=== PATIENT | male | born 1960 | race Caucasian/White ===

== ENCOUNTER 2023-03-14 08:23 | Inpatient (IN) | payer MEDICAID, SELFPAY ==
[2023-03-14] VITALS (20 sets, daily range): BP systolic 136–186; BP diastolic 92–117; PULSE 93–116; RESP 16–33; TEMP 36.2–37; O2SAT 95–100; BMI 35.6
--- NOTE | ~2023-03-14 | US_ITS ---
EXAMINATION: US venous doppler [facility] DATE: 03/14/2023 10:01 INDICATION: Bilateral lower limb pain and swelling TECHNIQUE: Beth scale images without and with compression and Doppler images of the bilateral lower e xtremity veins were obtained. COMPARISON: 03/07/2013 FINDINGS: The right common femoral vein, profunda femoral vein, femoral vein, popliteal vein, peroneal trunk, p osterior tibial veins, and greater saphenous vein are patent. The left common femoral vein, profunda femoral vein, femoral vein, popliteal vein, peroneal trunk, po sterior tibial veins, and greater saphenous vein are patent. IMPRESSION: 1. Patent bilateral lower extremity veins. No evidence of deep venous thrombosis. Reviewed, dictated and finalized at location [] IMPRESSION: 1. Patent bilateral lower extremity veins. No evidence of deep venous thrombosi s.
--- NOTE | ~2023-03-14 | CT_ITS ---
Non-contrast CT scan of the Abdomen and Pelvis Clinical indication: Dyspnea, leg swelling, tachycardia Technique: 2.5 mm axial scans were obtained through the abdomen and pelvis without intravenous or or al contrast. Dose reduction technique was used on this scan by utilizing automated exposure control a nd iterative reconstruction technique. The dose-length product (DLP) was 1154.84 mGy-cm. Findings: Images through the lung bases reveal [id number] bilateral pleural effusions. There is moderate bilateral hydroureteronephrosis. No radiopaque stones identified. The liver, spleen, pancreas, gallbladder, and adrenals appear normal. There is no aortic aneurysm. There is no evidence of bowel obstruction. Normal appendix. Images through the pelvis were performed. There is no evidence of ascites or lymphadenopathy. Urinary bladder is markedly distended. Prostate gland is markedly enlarged. Impression: Moderate bilateral hydronephrosis with markedly urinary bladder and significantly enlarged prostate g land. Findings likely represent bladder outlet obstruction related to BPH. Prostate neoplasm cannot b e excluded based on this exam. [id number] bilateral pleural effusions, partially imaged. Reviewed, dictated and finalized at location . Impression: Moderate bilateral hydronephrosis with markedly urinary bladder and significant ly enlarged prostate gland. Findings likely represent bladder outlet obstructio n related to BPH. Prostate neoplasm cannot be excluded based on this exam. [id number] bilateral pleural effusions, partially imaged.
--- NOTE | ~2023-03-14 | XR_ITS ---
EXAMINATION: XR chest 1V DATE: 03/14/2023 10:56 INDICATION: Cough and dyspnea TECHNIQUE: AP view of the chest was obtained. COMPARISON: Chest radiograph dated 10/16/2015 FINDINGS: No focal airspace opacity in the left perihilar region. Mild bibasilar opacities with small bilateral pleural effusions. No pneumothorax. Heart size is normal. IMPRESSION: 1. New opacities in the bilateral lung bases and left perihilar region which could represent pneumoni a or mild pulmonary edema. 2. Small bilateral pleural effusions. Reviewed, dictated and finalized at location A. IMPRESSION: 1. New opacities in the bilateral lung bases and left perihilar region which co uld represent pneumonia or mild pulmonary edema. 2. Small bilateral pleural effusions.
--- NOTE | ~2023-03-14 | US_ITS ---
EXAMINATION: US renal BI DATE: 03/16/2023 10:22 INDICATION: Bilateral hydronephrosis TECHNIQUE: Multiple grayscale and Doppler ultrasound images of the kidneys were obtained. COMPARISON: 03/15/2023 FINDINGS: The right kidney measures 13.2 x 6.3 x 7.9 cm. The left kidney measures 13.8 x 6.5 x 6.3 cm . The kidneys demonstrate normal parenchymal echogenicity. There is persistent mild bilateral hydrone phrosis. The bladder is decompressed by Rubio catheter. IMPRESSION: 1. Persistent mild bilateral hydronephrosis. Reviewed, dictated and finalized at location []
--- NOTE | ~2023-03-14 | US_ITS ---
EXAMINATION: US renal BI DATE: 03/15/2023 10:53 INDICATION: Acute kidney injury, hydronephrosis TECHNIQUE: Multiple grayscale and Doppler ultrasound images of the kidneys were obtained. COMPARISON: CT, 03/14/2023 FINDINGS: The right kidney measures 12.8 x 5.3 x 5.3 cm. The left kidney measures 13.4 x 5.8 x 7.5 cm . The kidneys demonstrate normal parenchymal echogenicity. There is mild bilateral hydronephrosis. Th e bladder is decompressed by Rubio catheter. IMPRESSION: 1. Mild bilateral hydronephrosis. Otherwise, normal kidneys. Reviewed, dictated and finalized at location L.
--- NOTE | 2023-03-14 09:25 | ED.GENADULT ---
HPI - General Adult General Chief complaint: Extremity Injury, Lower <MART Little Last Filed: 03/14/23 14:31> Stated complaint: leg swelling <MART Little Last Filed: 03/14/23 14:31> Time Seen by Provider: 03/14/23 08:53 <Matteo Ponce PA-C - Last Filed: 03/14/23 14:31> Source: patient <MART Little Last Filed: 03/14/23 14:31> Mode of arrival: ambulatory <MART Little Last Filed: 03/14/23 14:31> Limitations: no limitations <MART Little Last Filed: 03/14/23 14:31> History of Present Illness HPI narrative: This is a 62-year-old male who comes to the ED with multiple medical complaints. Chief complaint stated to be bilateral lower extremity swelling x2 weeks. Reports some pain in the extremities. 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 States it is worse in certain positions. He is requesting a refill of his albuterol inhaler today. Reports chronic cough. Denies chest pain. Patient has other complaints of constipation, recent diarrhea, abdominal bloating and sinus problems. States his last bowel movement was 1 week ago but he is passing gas. Denies fevers, chills, nausea, vomiting, abdominal pain, urinary symptoms. Reports past medical history of COPD and emphysema. States he has a history of hepatitis C in the past. States that he has not had any follow-up with primary care doctor in many years. <Matteo Ponce PA-C - Last Filed: 03/14/23 14:31> Related Data Home medications: Home Medications Medication Instructions Recorded Confirmed No Home Medications 03/14/23 03/14/23 <MART Little Last Filed: 03/14/23 14:31> Allergies/adverse reactions: Allergies Allergy/AdvReac Type Severity Reaction Status Date / Time No Known Allergies Allergy Unverified 10/16/15 09:01 <MART Little Last Filed: 03/14/23 14:31> PMFSH Past Medical History Medical History: Medical History Benign prostate hyperplasia COPD with emphysema Skin cancer <Matteo Ponce PA-C - Last Filed: 03/14/23 14:31> Surgical History Surgical History: Surgical History History of tonsillectomy Status post surgical removal of malignant neoplasm of skin <Matteo Ponce PA-C - Last Filed: 03/14/23 14:31> Social History Social History: Social History Smoking packs per day: 1.5 Smoking cigarettes per day: 30.0 Years smoked: 49 Smoking pack-years: 73.50 Smoking status: Current every day smoker Tobacco type: cigarettes Second hand tobacco smoke exposure: Yes Alcohol intake: never Substance use: never Substance use type: does not use Lack of Transportation: No Lack of Food: Never True Current Housing: I Have Housing Concerned About Future Housing: YES Difficulty Paying Gas/Electric Bills: YES Difficulty Paying for Meds: YES Currently Unemployed: No Education: High School Diploma/GED Difficulty w/ Childcare or Family Care: No Spiritual care concerns: No <Matteo Ponce PA-C - Last Filed: 03/14/23 14:31> Exam Narrative: GENERAL: Appears slightly disheveled. No acute distress. HEAD: Normocephalic, atraumatic. EYES: PERRLA and EOMI. ENT: Nares clear, no rhinorrhea or epistaxis. Mucous membranes moist. Oropharynx without tonsillar hypertrophy exudate or other lesions. NECK: Supple. No adenopathy or masses. CHEST: No respiratory distress. Clear to auscultation. No wheezes rales or rhonchi HEART: Regular rate and rhythm. No murmur heard. Normal peripheral pulses. ABDOMEN: Mild abdominal distention. Soft, nontender, normal active bowel sounds. MSK: Normal range of motion. Mild bilateral lower extremity swelling. Nonpitting. Mildly tender to the anterior and
--- NOTE | 2023-03-14 09:43 | ECG_ITS ---
Measurements Intervals [place] Rate: 97 P: 31 WV: 130 QRS: 5 QRSD: 69 T: 125 QT: 336 QTc: 428 Interpretive Statements SINUS RHYTHM MODERATE T-WAVE ABNORMALITY, CONSIDER LATERAL ISCHEMIA [-0.1+ mV T-WAVE IN I/aVL/V5/V6] ABNORMAL ECG NO PREVIOUS ECG AVAILABLE FOR COMPARISON Electronically Signed On 03-14-2023 10:42:54 CDT by Ward Saucedo M.D.
[2023-03-14 10:35] LABS: Basophils Percent Auto 0.4 % (0.2-1.2); Eosinophils Absolute Auto 0.5 K/mm3 (0-0.3); Eosinophils Percent Auto 4.8 % (0-4.4); Hematocrit 39.2 % (42.0-52.0); Immature Granulocyte Absolute 0.03 K/mm3 (0.00-0.031); Immature Granulocyte Percent A 0.3 % (0-0.5); Lymphocytes Absolute Auto 1.25 K/mm3 (0.9-3.2); Lymphocytes Percent Auto 11.6 % (18.3-44.2); Mean Corpuscular HGB Conc 33.2 g/dl (32-36); Mean Corpuscular Hemoglobin 30.2 pg (26-34); Mean Corpuscular Volume 91.2 fl (80-100); Mean Platelet Volume 9.8 fl (7.4-10.4); Monocytes Absolute Auto 0.9 K/mm3 (0.1-0.6); Monocytes Percent Auto 8.2 % (2.6-8.5); Neutrophils Absolute Auto 8.1 K/mm3 (1.3-6.7); Neutrophils Percent Auto 74.7 % (45.5-73.1); Platelet Count Result 227 k/mm3 (150-375); Red Cell Distribution Width 13.7 % (11.5-14.5); White Blood Count 10.8 K/mm3 (4.5-10.0)
[2023-03-14 10:38] LABS: Alanine Aminotransferase 20 U/L (6-50); Albumin Level 4.2 g/dL (3.5-5.1); Alkaline Phosphatase 78 U/L (38-126); Anion Gap 14 mmol/L (8-16); Aspartate Amino Transferase 17 U/L (17-59); Bilirubin,Total 0.8 mg/dL (0.2-1.3); Blood Urea Nitrogen 88 mg/dL (9-20); Calcium 9.3 mg/dL (8.4-10.2); Carbon Dioxide 18 mmol/L (22-30); Chloride 107 mmol/L (98-107); Estimated CRCL calculation 6 ml/min; Estimated Glomerular Filt Rate 4; Glucose 89 mg/dL (65-110); Potassium 4.8 mmol/L (3.4-5.0); Sodium 139 mmol/L (137-145)
[2023-03-14 10:49] LABS: NT Pro B Type Natriuretic Pept 15900 pg/mL (19.9-100); Troponin I 0.031 ng/mL (0.000-0.034)
[2023-03-14 10:57] LABS: Appearance Urine Clear (Clear); Bilirubin Urine Negative (Negative); Blood Urine Negative (Negative); Color Urine Yellow (Yellow); Glucose Urine UA Negative (Negative); Ketones Urine Negative (Negative); Leukocyte Esterase Ur Negative LEU/UL (Negative); Nitrate Urine Negative (Negative); Protein Urine Negative (Negative); Specific Grav Ur 1.009 (1.001-1.035); Urobilinogen Urine 0.2 mg/dL (<2.0); pH Urine 5.5 (5.0-9.0)
[2023-03-14 11:01] LABS: Add Urine Microscopic? NO
[2023-03-14] MEDS: SODIUM CHLORIDE 0.9% IV 1,000 ML 999 ML IV CONT (11:43)
[2023-03-14] MEDS: LABETALOL HCL INJ 100 MG/20 ML VIAL 20 MG IV PUSH (11:46)
--- NOTE | 2023-03-14 13:25 | PC.NURSE ---
Pt attempting to have BM w/ bedside commode, when finished will go to admit room. Call light in reach.
--- NOTE | 2023-03-14 14:36 | PM.IMHP ---
H&P: HPI History of Present Illness Date/Time: 03/14/23 15:00 Chief Complaint: Leg swelling and shortness of breath. Narrative: This is a 62-year-old male smoker with COPD with emphysema who presented to the emergency department for evaluation of leg swelling and shortness of breath. The patient provides the following history. He has developed increasing lower extremity edema over the last couple of weeks and he now feels as though his abdomen is bloated. He also endorses increasing dyspnea on lesser and lesser exertion. He had loose stools for couple of days, took 1 anti diarrheal pill, and he has felt constipated since that time. Pertinent labs done on arrival include a WBC count of 10.8, hemoglobin 13.0, BUN 88, creatinine 13.00, proBNP 41371. CT of the abdomen and pelvis showed moderate bilateral hydronephrosis with markedly distended urinary bladder and significantly enlarged prostate gland. A Rubio was inserted and 1600 mL of urine was drained upon initial insertion. The catheter was clamped for a period of time and when it was unclamped his urine was grossly bloody. A 3 way catheter has since been inserted he is currently on CBI. With further questioning, he has noticed that he has been urinating a bit more than usual though he feels as though he is not able to completely empty his bladder. He is feeling a bit better now that the urine is draining and his blood pressure has in turn improved. He denies fever, chills, sweats, cold and flu symptoms, chest pain, pleuritic pain, cough, nausea, and vomiting. Review of Systems Review of Systems: Twelve systems were reviewed and are negative except for as per HPI. [facility] Past Medical History Medical History (Updated 03/14/23 @ 22:29 by Yadira Caicedo PA-C) Benign prostate hyperplasia COPD with emphysema Skin cancer Tobacco dependence Surgical History Surgical History History of tonsillectomy Status post surgical removal of malignant neoplasm of skin Family History Family History (Updated 03/15/23 @ 13:44 by Yadira Caicedo PA-C) Other Family history non-contributory Social History Social History (Updated 03/15/23 @ 13:45 by Yadira Caicedo PA-C) Social History: Surrogate medical decision maker: Ari Giron, daughter. Code status: Full code. Smoking packs per day: 1.5 Smoking cigarettes per day: 30.0 Years smoked: 49 Smoking pack-years: 73.50 Smoking status: Current every day smoker Tobacco type: cigarettes Second hand tobacco smoke exposure: Yes Alcohol intake: never Substance use: never Substance use type: does not use Lack of Transportation: No Lack of Food: Never True Current Housing: I Have Housing Concerned About Future Housing: YES Difficulty Paying Gas/Electric Bills: YES Difficulty Paying for Meds: YES Currently Unemployed: No Education: High School Diploma/GED Difficulty w/ Childcare or Family Care: No Additional living arrangements comments: Lives in [place]. Additional occupation/education comments: Works at a [employer]. Spiritual care concerns: No Meds Home Medications and Allergies Home Medications Medication Instructions Recorded Confirmed Type No Home Medications 03/14/23 03/14/23 History Allergies Allergy/AdvReac Type Severity Reaction Status Date / Time No Known Allergies Allergy Unverified 10/16/15 09:01 Vital Signs Vital Signs - 24 hr 03/14/23 08:28 03/14/23 08:51 03/14/23 09:09 Temperature 97.1 F L 98.6 F Pulse Rate 116 H 102 H Respiratory Rate 16 18 20 Blood Pressure 185/114 H 186/110 H Pulse Oximetry 96 96 Oxygen Delivery Room Air Room Air 03/14/23 09:08 03/14/23 09:09 03/14/23 09:15 Temperature Pulse Rate 101 H 104 H 99 Respiratory Rate 22 H 18 19 Blood Pressure 186/110 H Pulse Oximetry 95 97 98 Oxygen Delivery 03/14/23 09:17 03/14/23 09:33 03/14/23 09:45 Tem
--- NOTE | 2023-03-14 14:38 | PC.NURSE ---
This patient, Andrey Giron, was admitted to Medical Room 346-01. Patient/family oriented to hospital policies and general routines including ID bracelet, bed and alarms, visiting hours, pain management, procedures, bathroom and other care routines, personal items, smoking policy, room service/diet, and visiting hours. Information on how to activate the Rapid Response Team has been discussed. Patient/Family are encouraged to report perceived risks to care and to ask questions if they do not understand what they are told or what they should do.
--- NOTE | 2023-03-14 15:40 | PC.NURSE ---
Patient needed to use the bathroom as he was complaining of abdominal pain. JESSICA Francisco walked patient to the bathroom and noticed his gutiérrez cather was clamped. Patient came to medical floor from ER with gutiérrez catheter. RN unclamped catheter and 1100 of yellow urine drained. After draining, bloody red urine followed and 600mL of that was drained. Gutiérrez catheter continues to fill with bloody red urine. RN called Dr. Pinto's office with urology as he is the urologist ER consulted. Spoke with cashier receptionist and Tereza Boyle SELF SEALING FUEL TANK REPAIRER with urology is to come see patient within the next 30 minutes.
--- NOTE | 2023-03-14 16:39 | WPDURCON ---
Assessment and Plan Assessment and plan (1) Hematuria: Code(s): R31.9 - Hematuria, unspecified Status: Acute Assessment and Plan: Secondary to recent catheterization and rapid bladder collapse s/p severe retention. NO hematuria was noted prior to cath insertion. Patient denies a history of hematuria. I irrigated with 500cc of sterile water, I was able to clear his urine to a light red, no clots noted in the bladder. The patient tolerated the bladder irrigation well. The catheter bag has clotted off and is unable to be emptied. We will replace his current gutiérrez with a 3 way gutiérrez and start CBI to prevent clot formation. I will re-assess in the morning. (2) Benign prostate hyperplasia: Code(s): N40.0 - Benign prostatic hyperplasia without lower urinary tract symptoms Status: Acute Assessment and Plan: Start Flomax and Finasteride, likely the cause of his retention. Will keep gutiérrez for 7-10 days then do a voiding trial in the office. (3) Bladder outlet obstruction: Code(s): N32.0 - Bladder-neck obstruction Status: Acute (4) Acute kidney injury: Code(s): N17.9 - Acute kidney failure, unspecified Status: Acute Assessment and Plan: Monitor creatinine, will likely improve now that catheter has been placed. (5) Retention of urine: Code(s): R33.9 - Retention of urine, unspecified Status: Acute (6) Hydronephrosis: Code(s): N13.30 - Unspecified hydronephrosis Status: Acute Plan Will plan to get a KEIKO in a few days to ensure this has resolved s/p catheter placement. Urology Consult Note HPI Date Seen: 03/14/23 Time Seen: 16:39 Requesting Physician: Teddy Bro MD Primary Care Provider: DOCUMENT IMAGING SPECIALIST PHYSICIAN Consult Narrative Reason for consult: Retention/BRYAN Narrative: Andrey Giron is a 62 year old male who presented to the ER today for c/o SOB, bilateral lower extremity edema, and frequency, urgency to urinate. This patient has had little healthcare for quite some time and appears to have many unaddressed health problems d/t not having had any preventative healthcare in many years. He states at home he urinates frequently and at night, he denies incontinence, dysuria, hematuria at home or today prior to catheter insertion or UTI's. He also denies difficultly urinating. He had a CT scan today of the abdomen showing Moderate bilateral hydronephrosis with markedly urinary bladder and significantly enlarged prostate gland. Findings likely represent bladder outlet obstruction related to BPH. Prostate neoplasm cannot be excluded based on this exam. A creatinine of 13, WBC of 10.8, he is tachycardic and hypertensive, but afebrile. UA is normal. A gutiérrez was placed in the ER and he now has gross hematuria, although is gutiérrez is draining. Review of Systems Cardiovascular: Cardiovascular: Denies chest pain Respiratory: Respiratory: Reports no additional respiratory complaints Gastrointestinal: Gastrointestinal: Denies abdominal pain, Denies nausea and Denies vomiting Genitourinary: Genitourinary: Reports hematuria, Denies dysuria, Denies flank pain, Reports nocturia, Reports urinary frequency, Denies urinary hesitancy, Denies urinary incontinence and Reports urinary urgency PMFSH Past Medical History Medical History Benign prostate hyperplasia COPD with emphysema Skin cancer Surgical History Surgical History History of tonsillectomy Status post surgical removal of malignant neoplasm of skin Social History Social History Smoking packs per day: 1.5 Smoking cigarettes per day: 30.0 Years smoked: 49 Smoking pack-years: 73.50 Smoking status: Current every day smoker Tobacco type: cigarettes Second hand tobacco smoke exposure: Yes Alcohol intake: never
[2023-03-14 23:06] LABS: Hematocrit 42.8 % (42.0-52.0); Hemoglobin 14.1 g/dL (14.0-18.0); Mean Corpuscular HGB Conc 32.9 g/dl (32-36); Mean Corpuscular Hemoglobin 30.6 pg (26-34); Mean Corpuscular Volume 92.8 fl (80-100); Mean Platelet Volume 9.8 fl (7.4-10.4); Platelet Count Result 242 k/mm3 (150-375); Red Blood Count 4.61 M/mm3 (4.6-6.20); Red Cell Distribution Width 13.8 % (11.5-14.5); White Blood Count 13.4 K/mm3 (4.5-10.0)
[2023-03-14] MEDS: ACETAMINOPHEN 325 MG TABLET 650 MG PO (23:10)
[2023-03-14 23:22] LABS: Anion Gap 15 mmol/L (8-16); Blood Urea Nitrogen 64 mg/dL (9-20); Calcium 9.7 mg/dL (8.4-10.2); Carbon Dioxide 18 mmol/L (22-30); Chloride 110 mmol/L (98-107); Estimated CRCL calculation 13 ml/min; Estimated Glomerular Filt Rate 9; Glucose 157 mg/dL (65-110); Magnesium 2.6 mg/dL (1.6-2.3); Potassium 4.6 mmol/L (3.4-5.0); Sodium 143 mmol/L (137-145)
[2023-03-15] VITALS (8 sets, daily range): BP systolic 133–156; BP diastolic 67–99; PULSE 104–111; RESP 18–20; TEMP 36.4–36.9; O2SAT 97–100
[2023-03-15] MEDS: ACETAMINOPHEN 325 MG TABLET 650 MG PO ×3 (05:16→18:26)
[2023-03-15 05:38] LABS: Hematocrit 41.4 % (42.0-52.0); Hemoglobin 13.8 g/dL (14.0-18.0); Mean Corpuscular HGB Conc 33.3 g/dl (32-36); Mean Corpuscular Hemoglobin 30.5 pg (26-34); Mean Corpuscular Volume 91.4 fl (80-100); Mean Platelet Volume 9.6 fl (7.4-10.4); Platelet Count Result 270 k/mm3 (150-375); Red Blood Count 4.53 M/mm3 (4.6-6.20); Red Cell Distribution Width 13.7 % (11.5-14.5); White Blood Count 13.6 K/mm3 (4.5-10.0)
--- NOTE | 2023-03-15 05:51 | PC.NURSE ---
label remover c/o smelling cigarette smoke in patient's room. and malachi branham and this bond underwriter agree that bathroom smells of possible cigarette smoke. asked patient if he was smoking in the bathroom and patient denied this. explained danger to self, other patients and staff of smoking in hospital rooms where oxygen outlets are present. offered patient a nicotene patch and he refused this.
[2023-03-15 05:55] LABS: Alanine Aminotransferase 24 U/L (6-50); Albumin Level 4.2 g/dL (3.5-5.1); Alkaline Phosphatase 86 U/L (38-126); Anion Gap 9 mmol/L (8-16); Aspartate Amino Transferase 20 U/L (17-59); Bilirubin,Total 0.6 mg/dL (0.2-1.3); Blood Urea Nitrogen 49 mg/dL (9-20); Calcium 9.6 mg/dL (8.4-10.2); Carbon Dioxide 28 mmol/L (22-30); Chloride 107 mmol/L (98-107); Estimated CRCL calculation 18 ml/min; Estimated Glomerular Filt Rate 13; Glucose 131 mg/dL (65-110); Potassium 4.4 mmol/L (3.4-5.0); Sodium 144 mmol/L (137-145)
[2023-03-15] MEDS: oxyBUTYnin CHLORIDE 5 MG TABLET PO ×3 (08:17→16:51)
[2023-03-15] MEDS: TAMSULOSIN HCL 0.4 MG CAPSULE PO (08:17)
[2023-03-15] MEDS: FINASTERIDE 5 MG TABLET PO (08:17)
[2023-03-15] MEDS: guaiFENesin 12 HR 600 MG TABCR PO ×2 (08:37→19:44)
--- NOTE | 2023-03-15 11:09 | PM.CNNEP ---
Assessment and Plan Assessment and plan (1) Acute kidney injury: Code(s): N17.9 - Acute kidney failure, unspecified Status: Acute Assessment and Plan: suspect due to obstructive uropathy/urinary retention evidence of bilateral hydroureteronephrosis by CT imaging in ER 1600cc urine output following placement of gutiérrez catheter improvement in renal function noted repeat renal ultrasound follow trend of renal function and UOP (2) Bladder outlet obstruction: Code(s): N32.0 - Bladder-neck obstruction Status: Acute Assessment and Plan: as noted by admission imaging gutiérrez catheter in place good urine output noted with downward trend of creatinine Urology following started on flomax and finasteride (3) Hematuria: Code(s): R31.9 - Hematuria, unspecified Status: Acute Assessment and Plan: noted following placement of gutiérrez catheter due to BPH and likely gutiérrez trauma CBI in place Urology following (4) Elevated blood pressure reading: Code(s): R03.0 - Elevated blood-pressure reading, without diagnosis of hypertension Status: Acute Assessment and Plan: due to undiagnosed HTN versus pain-related issues follow trend of hemodynamics I will continue to follow the patient with you while remains hospitalized and make further recommendations during his hospital course. Thank you for allowing me to participate in care this patient. History of Present Illness Reason for Consult Consult date: 03/15/23 Reason for consult: acute renal failure (on chronic kidney disease??) Chief Complaint Chief complaint: Bladder Outlet Obstuction/Kidney Injury/Elevated B History of Present Illness Narrative: the patient is a 62-year-old male with a past medical history as outlined below who presented to [facility] Emergency room for further evaluation of lower extremity swelling/edema and shortness of breath. The patient reports that he has noticed increasing lower extremity swelling in association with his shortness of breath over the last couple weeks which seems to be progressively getting worse and associated with abdominal distention. His shortness of breath initially was with exertional activities but it seems to for progressed to being present even at rest. Given these constellation of symptoms and the lack of improvement in the last few days if not worsening, he presented to the emergency room for further assessment. Workup and evaluation emergency room demonstrated the patient be somewhat hypertensive and clearly in some distress secondary to his shortness of breath and abdominal distension. Routine blood test demonstrated normal hemoglobin and hematocrit with a mildly elevated white blood cell count but his kidney function was markedly abnormal with a BUN of 88, creatinine of 13 in association with a proBNP of around 16,000. Subsequent CT scan of the abdomen pelvis showed moderate bilateral hydronephrosis with markedly distended urinary bladder and significantly enlarged prostate. A Gutiérrez catheter was placed with immediate return of 1600 cc of urine. Following Gutiérrez catheter placement, he was noted to have hematuria. A 3 way catheter was subsequently placed and he was started on continuous bladder irrigation. Following the Gutiérrez catheter placement in general, he felt significantly bladder his blood pressure she has been seems to have improved as well. He gave no other systemic symptoms to report. He was subsequently admitted to the hospital for further evaluation and therapy. Since his admission, he has been since seen by Urology for echo and a shins with regard to his hematuria and will call clear evidence of urinary retention/BPH/obstructive uropathy. Renal consultation was requested due to his presumed acute kidney injury/acute renal failure. Unfortunately, have no previous labs to compare to in terms of what his kidney function was recen
--- NOTE | 2023-03-15 11:42 | WPDPN ---
Progress Note: A&P Assessment and Plan (1) Acute kidney injury: Code(s): N17.9 - Acute kidney failure, unspecified Status: Acute (2) Bladder outlet obstruction: Code(s): N32.0 - Bladder-neck obstruction Status: Acute (3) Elevated blood pressure reading: Code(s): R03.0 - Elevated blood-pressure reading, without diagnosis of hypertension Status: Acute (4) Urinary retention: Code(s): R33.9 - Retention of urine, unspecified Status: Acute (5) Bilateral hydronephrosis: Code(s): N13.30 - Unspecified hydronephrosis Status: Acute (6) Benign prostate hyperplasia: Code(s): N40.0 - Benign prostatic hyperplasia without lower urinary tract symptoms Status: Acute (7) Hematuria: Code(s): R31.9 - Hematuria, unspecified Status: Acute (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 Labs, imaging, EKG, and all reports were personally reviewed. He was found to have a markedly distended urinary bladder and over 1600 mL of urine was drained upon initial insertion of catheter prior to clamping. He has since developed gross hematuria and is on CBI. His kidney injury is most likely related to presumes longstanding bladder outlet obstruction and I suspect his renal function will improve significantly now that the catheter has been inserted. Avoid nephrotoxic agents. He received a L of normal saline in the ED; hold on further IV fluids as chest x-ray shows small effusions and mild pulmonary edema, likely due to the renal failure. Renal ultrasound is for a.m. to insure that the hydronephrosis is improving/resolving. He has been started on finasteride. Oxybutynin ordered as he is having significant discomfort from the Rubio catheter. Blood pressures were quite elevated on arrival but they have improved significantly with pain control. Continue to monitor closely and initiate antihypertensives if indicated, depending on how he trends. Smoking cessation is encouraged and was discussed. He declines the need for nicotine patch ?as they do not help anyway.? 03/15/2023 interval history: patient with hematuria was seen by his urologist and bladder was irrigated and placed on CBI and his urine is still pink and will be seen by his urologist and further recommendation to follow. patient with his of smoking and c/o cough and congestion, he does not have wheezing, will give patient guaifenesin and Duo neb and will monitory. Subjective Date/time seen: 03/15/23 11:42 Interval history: Leg swelling and shortness of breath. HPI-Narrative: This is a 62-year-old male smoker with COPD with emphysema who presented to the emergency department for evaluation of leg swelling and shortness of breath.? The patient provides the following history. He has developed increasing lower extremity edema over the last couple of weeks and he now feels as though his abdomen is bloated. He also endorses increasing dyspnea on lesser and lesser exertion. He had loose stools for couple of days, took 1 anti diarrheal pill, and he has felt constipated since that time. Pertinent labs done on arrival include a WBC count of 10.8, hemoglobin 13.0, BUN 88, creatinine 13.00, proBNP 68133. CT of the abdomen and pelvis showed moderate bilateral hydronephrosis with markedly distended urinary bladder and significantly enlarged prostate gland. A Rubio was inserted and 1600 mL of urine was drained upon initial insertion. The catheter was clamped for a period of time and when it was unclamped his urine was grossly bloody. A 3 way catheter has since been inserted he is currently on CBI. With further questioning, he has noticed that he has been urinating a bit more t
[2023-03-15] MEDS: IPRATROPIUM BR 0.02% INH SOLN 0.5 MG/2.5 ML VIAL INHALATION ×2 (14:27→19:57)
[2023-03-15] MEDS: LEVALBUTEROL NEB 1.25 MG/3 ML INHALATION ×2 (14:27→19:57)
--- NOTE | 2023-03-15 15:22 | WPDUROPN2 ---
Progress Note: A&P Assessment and Plan (1) Urinary retention: Code(s): R33.9 - Retention of urine, unspecified Status: Acute Assessment and Plan: Keep gutiérrez in for 7-10 days and f/u for voiding trial. (2) Bilateral hydronephrosis: Code(s): N13.30 - Unspecified hydronephrosis Status: Acute Assessment and Plan: Get KEIKO tomorrow to ensure hydronephrosis has improved. (3) Hematuria: Code(s): R31.9 - Hematuria, unspecified Status: Acute (4) Acute kidney injury: Code(s): N17.9 - Acute kidney failure, unspecified Status: Acute Assessment and Plan: Improved on CBI,keep CBI running, wean to off when hematuria resolves. Watch for electrolyte embalance d/t rapid deflation of bladder. Subjective Subjective Date/Time Seen: 03/15/23 15:22 Interval history: CBI is running on low flow, urine is light red/pink, much improved from yesterday. Creatinine has also improved greatly to 4.50 from 13.6. He is tachycardic, but doing well otherwise. He started Tamsulosin and Finasteride today. Review of Systems Cardiovascular: Cardiovascular: Denies chest pain Respiratory: Respiratory: Reports no additional respiratory complaints Gastrointestinal: Gastrointestinal: Denies abdominal pain, Denies nausea and Denies vomiting Genitourinary: Genitourinary: Reports hematuria, Denies genital pain, Denies dysuria, Denies flank pain, Denies urinary frequency, Denies urinary hesitancy and Denies urinary urgency Exam Const: General: cooperative and comfortable Resp: Effort & Inspection: normal respiratory effort Cardio: Rate: tachycardic : General: Yes no CVA tenderness Urinary Catheter: Urinary Catheter: patent and draining, urine clear and urine pink Extrem: Right lower extremity: no edema Left lower extremity: no edema Objective Data Vital Signs Vital Signs: Vital Signs - 24 hr 03/14/23 20:29 03/14/23 20:00 03/15/23 04:39 Temperature 97.2 F L 97.6 F Pulse Rate 110 H 110 H 107 H Respiratory Rate 18 18 18 Blood Pressure 136/92 H 156/99 H Pulse Oximetry 100 100 97 Oxygen Delivery Room Air 03/15/23 08:30 03/15/23 14:28 03/15/23 14:39 Temperature Pulse Rate 107 H 104 H Respiratory Rate 18 18 Blood Pressure Pulse Oximetry Oxygen Delivery Room Air 03/15/23 14:00 Temperature 98.3 F Pulse Rate 111 H Respiratory Rate 20 Blood Pressure 135/71 Pulse Oximetry 97 Oxygen Delivery Intake/Output Intake/Output: Intake & Output 03/12/23 03/13/23 03/14/23 03/15/23 23:59 23:59 23:59 23:59 Intake Total 2120 3440 Output Total 0284 3150 Balance 170 290 Meds/Results Medications: Active Medications Generic Name Dose Route Start Last Admin Trade Name Freq PRN Reason Stop Dose Admin Acetaminophen 650 mg 03/14/23 22:16 03/15/23 11:28 Acetaminophen 325 Mg Tablet PO 650 mg Q6H PRN Administration Mild Pain (1-3) or Fever Hydrocodone Bitart/Acetaminophen 1 tab 03/14/23 22:16 Hydrocodone/Acetaminophen (*Crx) 5-325 Mg Tablet PO Q6H PRN Pain Rated 4-6 Finasteride 5 mg 03/15/23 09:00 03/15/23 08:17 Finasteride 5 Mg Tablet PO 5 mg QAM CHRIS Administration Guaifenesin 600 mg 03/15/23 09:00 03/15/23 08:37 Guaifenesin 12 Hr 600 Mg Tabcr PO 600 mg Q12HR CHRIS Administration Ipratropium [place] 0.5 mg 03/15/23 08:00 03/15/23 14:27 Ipratropium Br 0.02% Inh Soln 0.5 Mg/2.5 Ml Vial INHALATION 0.5 mg Q6HRT CHRIS Administration Levalbuterol HCl 1.25 mg 03/15/23 08:00 03/15/23 14:27 Levalbuterol Neb 1.25 Mg/3 Ml INHALATION 1.25 mg Q6HRT CHRIS Administration Morphine Sulfate 2 mg 03/14/23 22:16 Morphine Sulfate (*Crx) 2 Mg/Ml Inj IV PUSH Q4H PRN Pain Rated 7-10 Oxybutynin Chloride 5 mg 03/15/23 09:00 03/15/23 12:10 Oxybutynin Chloride 5 Mg Tablet PO 5 mg TID CHRIS Administration Tamsulosin HCl 0.4 mg 03/15/23 09:00 03/15/23 08:17 T
[2023-03-15] MEDS: HYDROcodone/acetaminophen (*CRX) 5-325 MG TABLET 1 TAB PO (20:30)
[2023-03-16] VITALS (11 sets, daily range): BP systolic 127–143; BP diastolic 52–91; PULSE 95–113; RESP 8–18; TEMP 36.6–36.9; O2SAT 97–99
[2023-03-16] MEDS: HYDROcodone/acetaminophen (*CRX) 5-325 MG TABLET 1 TAB PO ×2 (01:40→20:16)
[2023-03-16] MEDS: IPRATROPIUM BR 0.02% INH SOLN 0.5 MG/2.5 ML VIAL INHALATION ×4 (02:20→19:58)
[2023-03-16] MEDS: LEVALBUTEROL NEB 1.25 MG/3 ML INHALATION ×4 (02:20→19:58)
[2023-03-16] MEDS: ACETAMINOPHEN 325 MG TABLET 650 MG PO ×2 (05:45→11:49)
[2023-03-16 06:44] LABS: Basophils Absolute Auto 0.1 K/mm3 (0.0-0.1); Basophils Percent Auto 0.5 % (0.2-1.2); Eosinophils Percent Auto 7.7 % (0-4.4); Hematocrit 36.5 % (42.0-52.0); Hemoglobin 11.6 g/dL (14.0-18.0); Immature Granulocyte Absolute 0.05 K/mm3 (0.00-0.031); Immature Granulocyte Percent A 0.4 % (0-0.5); Lymphocytes Absolute Auto 1.66 K/mm3 (0.9-3.2); Lymphocytes Percent Auto 13.3 % (18.3-44.2); Mean Corpuscular HGB Conc 31.8 g/dl (32-36); Mean Corpuscular Volume 94.3 fl (80-100); Monocytes Percent Auto 8.1 % (2.6-8.5); Neutrophils Absolute Auto 8.8 K/mm3 (1.3-6.7); Platelet Count Result 232 k/mm3 (150-375); Red Blood Count 3.87 M/mm3 (4.6-6.20); Red Cell Distribution Width 13.7 % (11.5-14.5); White Blood Count 12.5 K/mm3 (4.5-10.0)
[2023-03-16 06:55] LABS: Albumin Level 3.7 g/dL (3.5-5.1); Anion Gap 5 mmol/L (8-16); Blood Urea Nitrogen 26 mg/dL (9-20); Calcium 8.8 mg/dL (8.4-10.2); Carbon Dioxide 29 mmol/L (22-30); Chloride 104 mmol/L (98-107); Estimated CRCL calculation 41 ml/min; Estimated Glomerular Filt Rate 34; Glucose 193 mg/dL (65-110); Phosphorus 4.1 mg/dL (2.5-4.5); Potassium 4.1 mmol/L (3.4-5.0); Sodium 138 mmol/L (137-145)
[2023-03-16] MEDS: oxyBUTYnin CHLORIDE 5 MG TABLET PO ×3 (07:46→16:32)
[2023-03-16] MEDS: FINASTERIDE 5 MG TABLET PO (07:46)
[2023-03-16] MEDS: TAMSULOSIN HCL 0.4 MG CAPSULE PO (07:46)
[2023-03-16] MEDS: guaiFENesin 12 HR 600 MG TABCR PO ×2 (07:46→20:16)
--- NOTE | 2023-03-16 14:00 | PM.PNNEP ---
Progress Note: A&P Assessment and Plan (1) Acute kidney injury: Code(s): N17.9 - Acute kidney failure, unspecified Status: Acute Assessment and Plan: improvement noted suspect due to obstructive uropathy/urinary retention evidence of bilateral hydroureteronephrosis by CT imaging in ER 1600cc urine output following placement of gutiérrez catheter improvement in renal function noted as well repeat renal ultrasound with improvement in hydronephrosis follow trend of renal function and UOP (2) Bladder outlet obstruction: Code(s): N32.0 - Bladder-neck obstruction Status: Acute Assessment and Plan: as noted by admission imaging gutiérrez catheter in place good urine output noted with downward trend of creatinine Urology following with recommendations noted on flomax and finasteride (3) Hematuria: Code(s): R31.9 - Hematuria, unspecified Status: Acute Assessment and Plan: noted following placement of gutiérrez catheter due to BPH and likely gutiérrez trauma CBI in place Urology following (4) Elevated blood pressure reading: Code(s): R03.0 - Elevated blood-pressure reading, without diagnosis of hypertension Status: Acute Assessment and Plan: due to undiagnosed HTN versus pain-related issues improvement noted follow trend of hemodynamics Subjective Date/time seen: 03/16/23 14:00 Interval history: Follow-up for presumed acute kidney injury/acute renal failure. Renal function continues to improve with current interventions; urine is still pink/reddish despite continuous bladder irrigation; improvement in breathing as well as lower extremity edema; blood pressure has significantly improved as well; no apparent distress noted. Exam Narrative: General: WD/WN male in NAD Heart: normal S1 and S2; no rub Lungs: clear to auscultation Abdomen: soft, nontender, nondistended, positive bowel sounds Extremities: no cyanosis or clubbing; 1+ edema Skin: warm and dry Objective Data Vital Signs Vital Signs: Vital Signs Temp Pulse Resp BP Pulse Ox O2 Del Method 03/16/23 14:00 98.4 F 111 H 18 137/75 98 03/16/23 13:10 99 8 L 03/16/23 13:00 95 18 03/16/23 09:13 104 H 18 03/16/23 09:05 102 H 18 03/16/23 07:46 Room Air 03/16/23 05:44 97.9 F 106 H 18 127/52 L 97 03/16/23 02:23 97 18 03/16/23 02:15 100 18 03/15/23 20:00 106 H 18 100 Room Air 03/15/23 20:05 106 H 18 03/15/23 19:57 104 H 18 03/15/23 19:46 98.4 F 106 H 19 133/67 100 Intake/Output Intake/Output: Intake & Output 03/13/23 03/14/23 03/15/23 03/16/23 23:59 23:59 23:59 23:59 Intake Total 2120 4780 2440 Output Total 1950 4350 2500 Balance 170 430 -60 Meds/Results Medications: Active Medications Generic Name Dose Route Start Last Admin Trade Name Freq PRN Reason Stop Dose Admin Acetaminophen 650 mg 03/14/23 22:16 03/16/23 11:49 Acetaminophen 325 Mg Tablet PO 650 mg Q6H PRN Administration Mild Pain (1-3) or Fever Hydrocodone Bitart/Acetaminophen 1 tab 03/14/23 22:16 03/16/23 01:40 Hydrocodone/Acetaminophen (*Crx) 5-325 Mg Tablet PO 1 tab Q6H PRN Administration Pain Rated 4-6 Finasteride 5 mg 03/15/23 09:00 03/16/23 07:46 Finasteride 5 Mg Tablet PO 5 mg QAM CHRIS Administration Guaifenesin 600 mg 03/15/23 09:00 03/16/23 07:46 Guaifenesin 12 Hr 600 Mg Tabcr PO 600 mg Q12HR CHRIS Administration Ipratropium [place] 0.5 mg 03/15/23 08:00 03/16/23 13:00 Ipratropium Br 0.02% Inh Soln 0.5 Mg/2.5 Ml Vial INHALATION 0.5 mg Q6HRT CHRIS Administration Levalbuterol HCl 1.25 mg 03/15/23 08:00 03/16/23 13:00 Levalbuterol Neb 1.25 Mg/3 Ml INHALATION 1.25 mg Q6HRT CHRIS Administration Morphine Sulfate 2 mg 03/14/23 22:16 Morphine Sulfate (*Crx) 2 Mg/Ml Inj IV PUSH Q4H PRN Pain Rated 7-10
--- NOTE | 2023-03-16 14:00 | P.PNNP_ITS ---
Progress Note: A&P Assessment and Plan (1) Acute kidney injury: Code(s): N17.9 - Acute kidney failure, unspecified Status: Acute Assessment and Plan: * improvement noted * suspect due to obstructive uropathy/urinary retention * evidence of bilateral hydroureteronephrosis by CT imaging in ER * 1600cc urine output following placement of gutiérrez catheter * improvement in renal function noted as well * repeat renal ultrasound with improvement in hydronephrosis * follow trend of renal function and UOP (2) Bladder outlet obstruction: Code(s): N32.0 - Bladder-neck obstruction Status: Acute Assessment and Plan: * as noted by admission imaging * gutiérrez catheter in place * good urine output noted with downward trend of creatinine * Urology following with recommendations noted * on flomax and finasteride (3) Hematuria: Code(s): R31.9 - Hematuria, unspecified Status: Acute Assessment and Plan: * noted following placement of gutiérrez catheter * due to BPH and likely gutiérrez trauma * CBI in place * Urology following (4) Elevated blood pressure reading: Code(s): R03.0 - Elevated blood-pressure reading, without diagnosis of hypertension Status: Acute Assessment and Plan: * due to undiagnosed HTN versus pain-related issues * improvement noted * follow trend of hemodynamics Subjective Date/time seen: 03/16/23 14:00 Interval history: Follow-up for presumed acute kidney injury/acute renal failure. Renal function continues to improve with current interventions; urine is still pink/reddish despite continuous bladder irrigation; improvement in breathing as well as lower extremity edema; blood pressure has significantly improved as well; no apparent distress noted. Exam Narrative: General: WD/WN male in NAD Heart: normal S1 and S2; no rub Lungs: clear to auscultation Abdomen: soft, nontender, nondistended, positive bowel sounds Extremities: no cyanosis or clubbing; 1+ edema Skin: warm and dry Objective Data Vital Signs Vital Signs: Vital Signs Temp Pulse Resp BP Pulse Ox O2 Del Method 03/16/23 14:00 98.4 F 111 H 18 137/75 98 03/16/23 13:10 99 8 L 03/16/23 13:00 95 18 03/16/23 09:13 104 H 18 03/16/23 09:05 102 H 18 03/16/23 07:46 Room Air 03/16/23 05:44 97.9 F 106 H 18 127/52 L 97 03/16/23 02:23 97 18 03/16/23 02:15 100 18 03/15/23 20:00 106 H 18 100 Room Air 03/15/23 20:05 106 H 18 03/15/23 19:57 104 H 18 03/15/23 19:46 98.4 F 106 H 19 133/67 100 Intake/Output Intake/Output: Intake & Output 03/13/23 03/14/23 03/15/23 03/16/23 23:59 23:59 23:59 23:59 Intake Total 2120 4780 2440 Output Total 1950 4350 2500 Balance 170 430 -60 Meds/Results Medications: Active Medications Generic Name Dose Route Start Last Admin Trade Name Freq PRN Reason Stop Dose Admin Acetaminophen 650 mg 03/14/23 22:16 03/16/23 11:49 Acetaminophen 325 Mg Tablet PO 650 mg Q6H PRN Administration Mild Pain (1-3) or Fever Hydrocodone Bitart/Acet
--- NOTE | 2023-03-16 14:26 | WPDPN ---
Progress Note: A&P Assessment and Plan (1) Acute kidney injury: Code(s): N17.9 - Acute kidney failure, unspecified Status: Acute (2) Bladder outlet obstruction: Code(s): N32.0 - Bladder-neck obstruction Status: Acute (3) Elevated blood pressure reading: Code(s): R03.0 - Elevated blood-pressure reading, without diagnosis of hypertension Status: Acute (4) Urinary retention: Code(s): R33.9 - Retention of urine, unspecified Status: Acute (5) Bilateral hydronephrosis: Code(s): N13.30 - Unspecified hydronephrosis Status: Acute (6) Benign prostate hyperplasia: Code(s): N40.0 - Benign prostatic hyperplasia without lower urinary tract symptoms Status: Acute (7) Hematuria: Code(s): R31.9 - Hematuria, unspecified Status: Acute (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 Labs, imaging, EKG, and all reports were personally reviewed. He was found to have a markedly distended urinary bladder and over 1600 mL of urine was drained upon initial insertion of catheter prior to clamping. He has since developed gross hematuria and is on CBI. His kidney injury is most likely related to presumes longstanding bladder outlet obstruction and I suspect his renal function will improve significantly now that the catheter has been inserted. Avoid nephrotoxic agents. He received a L of normal saline in the ED; hold on further IV fluids as chest x-ray shows small effusions and mild pulmonary edema, likely due to the renal failure. Renal ultrasound in a.m. to insure that the hydronephrosis is improving/resolving. He has been started on finasteride. Oxybutynin ordered as he is having significant discomfort from the Rubio catheter. Blood pressures were quite elevated on arrival but they have improved significantly with pain control. Continue to monitor closely and initiate antihypertensives if indicated, depending on how he trends. Smoking cessation is encouraged and was discussed. He declines the need for nicotine patch ?as they do not help anyway.? 03/16/2023 interval history:?patient with hematuria was seen by his urologist and bladder was irrigated and placed on CBI and his urine is still pink and was seen by his urologist and further recommendation to follow. will continue to monitor, patient stats he lives home alone will not be able to manage CBI, patient will need placement, patient with his of smoking and c/o cough and congestion, he does not have wheezing, will give patient guaifenesin and Duo neb and will monitory. Subjective Date/time seen: 03/16/23 14:26 Interval history: This is a 62-year-old male smoker with COPD with emphysema who presented to the emergency department for evaluation of leg swelling and shortness of breath.? The patient provides the following history. He has developed increasing lower extremity edema over the last couple of weeks and he now feels as though his abdomen is bloated. He also endorses increasing dyspnea on lesser and lesser exertion. He had loose stools for couple of days, took 1 anti diarrheal pill, and he has felt constipated since that time. Pertinent labs done on arrival include a WBC count of 10.8, hemoglobin 13.0, BUN 88, creatinine 13.00, proBNP 57962. CT of the abdomen and pelvis showed moderate bilateral hydronephrosis with markedly distended urinary bladder and significantly enlarged prostate gland. A Rubio was inserted and 1600 mL of urine was drained upon initial insertion. The catheter was clamped for a period of time and when it was unclamped his urine was grossly bloody. A 3 way catheter has since been inserted he is currently on CBI. With further questioni
--- NOTE | 2023-03-16 14:51 | WPDUROPN2 ---
Progress Note: A&P Assessment and Plan (1) Bilateral hydronephrosis: Code(s): N13.30 - Unspecified hydronephrosis Status: Acute Assessment and Plan: KEIKO shows improvement of hydro, showing mild bilateral hydro only. (2) Urinary retention: Code(s): R33.9 - Retention of urine, unspecified Status: Acute Assessment and Plan: Keep gutiérrez in fro 7-10 days then f/u for voiding trial in the office. Creatinine is much improved s/p gutiérrez insertion as well as hydronephrosis. (3) Hematuria: Code(s): R31.9 - Hematuria, unspecified Status: Acute Assessment and Plan: Improving slowly, keep CBI running, wean to off when clear. (4) Benign prostate hyperplasia: Code(s): N40.0 - Benign prostatic hyperplasia without lower urinary tract symptoms Status: Acute Assessment and Plan: Continue Finasteride and Flomax. Subjective Subjective Date/Time Seen: 03/16/23 14:51 Interval history: CBI is running on low flow, urine is light red/pink, not much improved from yesterday. Creatinine has also improved greatly to 2 from 4.50 and was initially 13.6. He is doing well otherwise. He Continues Tamsulosin and Finasteride. Review of Systems Cardiovascular: Cardiovascular: Denies chest pain Respiratory: Respiratory: Reports no additional respiratory complaints Gastrointestinal: Gastrointestinal: Denies abdominal pain, Denies nausea and Denies vomiting Genitourinary: Genitourinary: Reports hematuria, Denies dysuria, Denies flank pain, Denies urinary frequency, Denies urinary hesitancy and Denies urinary urgency Exam Resp: Effort & Inspection: normal respiratory effort Cardio: Rate: regular rate GI: GI Palp: Yes Soft to palpation and No Tenderness to palpation present (GI) : General: Yes no CVA tenderness Urinary Catheter: Urinary Catheter: patent and draining, urine clear and urine pink Extrem: Right lower extremity: no edema Left lower extremity: no edema Objective Data Vital Signs Vital Signs: Vital Signs - 24 hr 03/15/23 19:46 03/15/23 19:57 03/15/23 20:05 Temperature 98.4 F Pulse Rate 106 H 104 H 106 H Respiratory Rate 19 18 18 Blood Pressure 133/67 Pulse Oximetry 100 Oxygen Delivery 03/15/23 20:00 03/16/23 02:15 03/16/23 02:23 Temperature Pulse Rate 106 H 100 97 Respiratory Rate 18 18 18 Blood Pressure Pulse Oximetry 100 Oxygen Delivery Room Air 03/16/23 05:44 03/16/23 07:46 03/16/23 09:05 Temperature 97.9 F Pulse Rate 106 H 102 H Respiratory Rate 18 18 Blood Pressure 127/52 L Pulse Oximetry 97 Oxygen Delivery Room Air 03/16/23 09:13 03/16/23 13:00 03/16/23 13:10 Temperature Pulse Rate 104 H 95 99 Respiratory Rate 18 18 8 L Blood Pressure Pulse Oximetry Oxygen Delivery Intake/Output Intake/Output: Intake & Output 03/13/23 03/14/23 03/15/23 03/16/23 23:59 23:59 23:59 23:59 Intake Total 2120 4780 2440 Output Total 9670 4350 2500 Balance 170 430 -60 Meds/Results Medications: Active Medications Generic Name Dose Route Start Last Admin Trade Name Freq PRN Reason Stop Dose Admin Acetaminophen 650 mg 03/14/23 22:16 03/16/23 11:49 Acetaminophen 325 Mg Tablet PO 650 mg Q6H PRN Administration Mild Pain (1-3) or Fever Hydrocodone Bitart/Acetaminophen 1 tab 03/14/23 22:16 03/16/23 01:40 Hydrocodone/Acetaminophen (*Crx) 5-325 Mg Tablet PO 1 tab Q6H PRN Administration Pain Rated 4-6 Finasteride 5 mg 03/15/23 09:00 03/16/23 07:46 Finasteride 5 Mg Tablet PO 5 mg QAM CHRIS Administration Guaifenesin 600 mg 03/15/23 09:00 03/16/23 07:46 Guaifenesin 12 Hr 600 Mg Tabcr PO 600 mg Q12HR CHRIS Administration Ipratropium [place] 0.5 mg 03/15/23 08:00 03/16/23 13:00 Ipratropium Br 0.02% Inh Soln 0.5 Mg/2.5 Ml Vial INHALATION 0.5 mg Q6HRT CHRIS Administration Levalbuterol HCl 1.25 mg 03/15/23 08:00 03/16/23 1
[2023-03-17] VITALS (7 sets, daily range): BP systolic 128–136; BP diastolic 73–78; PULSE 89–108; RESP 16–18; TEMP 36.2–36.9; O2SAT 98–99
[2023-03-17] MEDS: HYDROcodone/acetaminophen (*CRX) 5-325 MG TABLET 1 TAB PO (02:16)
[2023-03-17] MEDS: IPRATROPIUM BR 0.02% INH SOLN 0.5 MG/2.5 ML VIAL INHALATION ×3 (04:33→20:52)
[2023-03-17] MEDS: LEVALBUTEROL NEB 1.25 MG/3 ML INHALATION ×3 (04:33→20:52)
[2023-03-17 07:39] LABS: Alanine Aminotransferase 25 U/L (6-50); Albumin Level 3.7 g/dL (3.5-5.1); Alkaline Phosphatase 72 U/L (38-126); Anion Gap 6 mmol/L (8-16); Aspartate Amino Transferase 25 U/L (17-59); Bilirubin,Total 0.3 mg/dL (0.2-1.3); Blood Urea Nitrogen 21 mg/dL (9-20); Carbon Dioxide 33 mmol/L (22-30); Chloride 102 mmol/L (98-107); Estimated CRCL calculation 50 ml/min; Estimated Glomerular Filt Rate 44; Glucose 93 mg/dL (65-110); Potassium 4.3 mmol/L (3.4-5.0); Sodium 141 mmol/L (137-145)
[2023-03-17] MEDS: oxyBUTYnin CHLORIDE 5 MG TABLET PO ×3 (08:24→17:36)
[2023-03-17] MEDS: TAMSULOSIN HCL 0.4 MG CAPSULE PO (08:24)
[2023-03-17] MEDS: FINASTERIDE 5 MG TABLET PO (08:24)
[2023-03-17] MEDS: guaiFENesin 12 HR 600 MG TABCR PO ×2 (08:25→20:18)
[2023-03-17] MEDS: ACETAMINOPHEN 325 MG TABLET 650 MG PO ×2 (12:30→23:52)
--- NOTE | 2023-03-17 13:21 | P.PNNP_ITS ---
Progress Note: A&P Assessment and Plan (1) Acute kidney injury: Code(s): N17.9 - Acute kidney failure, unspecified Status: Acute Assessment and Plan: * improvement noted * suspect due to obstructive uropathy/urinary retention * evidence of bilateral hydroureteronephrosis by CT imaging in ER * 1600cc urine output following placement of gutiérrez catheter * improvement in renal function noted as well * repeat renal ultrasound with improvement in hydronephrosis * follow trend of renal function and UOP (2) Bladder outlet obstruction: Code(s): N32.0 - Bladder-neck obstruction Status: Acute Assessment and Plan: * as noted by admission imaging * gutiérrez catheter in place * good urine output noted with downward trend of creatinine * Urology following with recommendations noted * on flomax and finasteride (3) Hematuria: Code(s): R31.9 - Hematuria, unspecified Status: Acute Assessment and Plan: * noted following placement of gutiérrez catheter * due to BPH and likely gutiérrez trauma * CBI in place * Urology following (4) Elevated blood pressure reading: Code(s): R03.0 - Elevated blood-pressure reading, without diagnosis of hypertension Status: Acute Assessment and Plan: * due to undiagnosed HTN versus pain-related issues * improvement noted * follow trend of hemodynamics Will continue to follow. Subjective Date/time seen: 03/17/23 13:21 Interval history: Follow-up for acute kidney injury/acute renal failure. Renal function continue to improved as noted by trend of labs since admission; swelling/edema in LEs still present but seems to be improving as well; no further issues or problems with abdominal distension; overall, feels signifi cantly better. Exam Narrative: General: WD/WN male in NAD Heart: normal S1 and S2; no rub Lungs: clear to auscultation Abdomen: soft, nontender, nondistended, positive bowel sounds Extremities: no cyanosis or clubbing; 1+ edema Skin: warm and intact Objective Data Vital Signs Vital Signs: Vital Signs Temp Pulse Resp BP Pulse Ox O2 Del Method 03/17/23 13:00 98.4 F 108 H 18 128/78 98 03/17/23 09:18 100 18 03/17/23 09:05 107 H 18 03/17/23 08:30 Room Air 03/17/23 04:38 97.2 F L 89 16 133/74 99 03/17/23 04:33 101 H 18 03/16/23 21:28 98.5 F 113 H 18 143/91 H 99 03/16/23 20:00 101 H 18 03/16/23 19:50 110 H 18 Intake/Output Intake/Output: Intake & Output 03/14/23 03/15/23 03/16/23 03/17/23 23:59 23:59 23:59 23:59 Intake Total 2120 4780 3900 1820 Output Total 1950 4350 3900 4550 Balance 170 430 0 -2730 Meds/Results Medications: Active Medications Generic Name Dose Route Start Last Admin Trade Name Freq PRN Reason Stop Dose Admin Acetaminophen 650 mg 03/14/23 22:16 03/17/23 12:30 Acetaminophen 325 Mg Tablet PO 650 mg Q6H PRN Administration Mild Pain (1-3) or Fever Hydrocodone Bitart/Acetaminophen 1 tab 03/14/23 22:16 03/17/23 02:16 Hydrocodone/Acetaminophen (*Crx) 5-325 Mg Tablet PO 1 tab Q6H PRN Administration
--- NOTE | 2023-03-17 13:21 | PM.PNNEP ---
Progress Note: A&P Assessment and Plan (1) Acute kidney injury: Code(s): N17.9 - Acute kidney failure, unspecified Status: Acute Assessment and Plan: improvement noted suspect due to obstructive uropathy/urinary retention evidence of bilateral hydroureteronephrosis by CT imaging in ER 1600cc urine output following placement of gutiérrez catheter improvement in renal function noted as well repeat renal ultrasound with improvement in hydronephrosis follow trend of renal function and UOP (2) Bladder outlet obstruction: Code(s): N32.0 - Bladder-neck obstruction Status: Acute Assessment and Plan: as noted by admission imaging gutiérrez catheter in place good urine output noted with downward trend of creatinine Urology following with recommendations noted on flomax and finasteride (3) Hematuria: Code(s): R31.9 - Hematuria, unspecified Status: Acute Assessment and Plan: noted following placement of gutiérrez catheter due to BPH and likely gutiérrez trauma CBI in place Urology following (4) Elevated blood pressure reading: Code(s): R03.0 - Elevated blood-pressure reading, without diagnosis of hypertension Status: Acute Assessment and Plan: due to undiagnosed HTN versus pain-related issues improvement noted follow trend of hemodynamics Will continue to follow. Subjective Date/time seen: 03/17/23 13:21 Interval history: Follow-up for acute kidney injury/acute renal failure. Renal function continue to improved as noted by trend of labs since admission; swelling/edema in LEs still present but seems to be improving as well; no further issues or problems with abdominal distension; overall, feels significantly better. Exam Narrative: General: WD/WN male in NAD Heart: normal S1 and S2; no rub Lungs: clear to auscultation Abdomen: soft, nontender, nondistended, positive bowel sounds Extremities: no cyanosis or clubbing; 1+ edema Skin: warm and intact Objective Data Vital Signs Vital Signs: Vital Signs Temp Pulse Resp BP Pulse Ox O2 Del Method 03/17/23 13:00 98.4 F 108 H 18 128/78 98 03/17/23 09:18 100 18 03/17/23 09:05 107 H 18 03/17/23 08:30 Room Air 03/17/23 04:38 97.2 F L 89 16 133/74 99 03/17/23 04:33 101 H 18 03/16/23 21:28 98.5 F 113 H 18 143/91 H 99 03/16/23 20:00 101 H 18 03/16/23 19:50 110 H 18 Intake/Output Intake/Output: Intake & Output 03/14/23 03/15/23 03/16/23 03/17/23 23:59 23:59 23:59 23:59 Intake Total 2120 4780 3900 1820 Output Total 1950 4350 3900 4550 Balance 170 430 0 -2730 Meds/Results Medications: Active Medications Generic Name Dose Route Start Last Admin Trade Name Freq PRN Reason Stop Dose Admin Acetaminophen 650 mg 03/14/23 22:16 03/17/23 12:30 Acetaminophen 325 Mg Tablet PO 650 mg Q6H PRN Administration Mild Pain (1-3) or Fever Hydrocodone Bitart/Acetaminophen 1 tab 03/14/23 22:16 03/17/23 02:16 Hydrocodone/Acetaminophen (*Crx) 5-325 Mg Tablet PO 1 tab Q6H PRN Administration Pain Rated 4-6 Finasteride 5 mg 03/15/23 09:00 03/17/23 08:24 Finasteride 5 Mg Tablet PO 5 mg QAM CHRIS Administration Guaifenesin 600 mg 03/15/23 09:00 03/17/23 08:25 Guaifenesin 12 Hr 600 Mg Tabcr PO 600 mg Q12HR CHRIS Administration Ipratropium [place] 0.5 mg 03/15/23 08:00 03/17/23 13:37 Ipratropium Br 0.02% Inh Soln 0.5 Mg/2.5 Ml Vial INHALATION Not Given Q6HRT CHRIS Levalbuterol HCl 1.25 mg 03/15/23 08:00 03/17/23 13:37 Levalbuterol Neb 1.25 Mg/3 Ml INHALATION Not Given Q6HRT CHRIS Morphine Sulfate 2 mg 03/14/23 22:16 Morphine Sulfate (*Crx) 2 Mg/Ml Inj IV PUSH Q4H PRN Pain Rated 7-10 Oxybutynin Chloride 5 mg 03/15/23 09:00 03/17/23 12:30 Oxybutynin Chloride 5 Mg Tablet PO 5 mg TID CHRIS Administration Tamsulosin HCl 0.4
--- NOTE | 2023-03-17 14:29 | WPDPN ---
Progress Note: A&P Assessment and Plan (1) Acute kidney injury: Code(s): N17.9 - Acute kidney failure, unspecified Status: Acute (2) Bladder outlet obstruction: Code(s): N32.0 - Bladder-neck obstruction Status: Acute (3) Elevated blood pressure reading: Code(s): R03.0 - Elevated blood-pressure reading, without diagnosis of hypertension Status: Acute (4) Urinary retention: Code(s): R33.9 - Retention of urine, unspecified Status: Acute (5) Bilateral hydronephrosis: Code(s): N13.30 - Unspecified hydronephrosis Status: Acute (6) Benign prostate hyperplasia: Code(s): N40.0 - Benign prostatic hyperplasia without lower urinary tract symptoms Status: Acute (7) Hematuria: Code(s): R31.9 - Hematuria, unspecified Status: Acute (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 Labs, imaging, EKG, and all reports were personally reviewed. He was found to have a markedly distended urinary bladder and over 1600 mL of urine was drained upon initial insertion of catheter prior to clamping. He has since developed gross hematuria and is on CBI. His kidney injury is most likely related to presumes longstanding bladder outlet obstruction and I suspect his renal function will improve significantly now that the catheter has been inserted. Avoid nephrotoxic agents. He received a L of normal saline in the ED; hold on further IV fluids as chest x-ray shows small effusions and mild pulmonary edema, likely due to the renal failure. Renal ultrasound in a.m. to insure that the hydronephrosis is improving/resolving. He has been started on finasteride. Oxybutynin ordered as he is having significant discomfort from the Rubio catheter. Blood pressures were quite elevated on arrival but they have improved significantly with pain control. Continue to monitor closely and initiate antihypertensives if indicated, depending on how he trends. Smoking cessation is encouraged and was discussed. He declines the need for nicotine patch ?as they do not help anyway.? 03/17/2023 interval history:?patient with hematuria was seen by his urologist and bladder was irrigated and placed on CBI and his urine is still pink and was seen by his urologist and further recommendation to follow. patient had developed BRYAN and hydropyonephrosis, which has improved with CBI, Patient has seen by nephrologs, will continue to monitor, patient stats he lives home alone will not be able to manage CBI, patient will need placement, patient with his of smoking and c/o cough and congestion, he does not have wheezing, will give patient guaifenesin and Duo neb and will monitory. Subjective Date/time seen: 03/17/23 14:29 Interval history: The patient presented to the emergency department for evaluation of swelling and shortness of breath as per HPI. Labs, imaging, EKG, and all reports were personally reviewed. He was found to have a markedly distended urinary bladder and over 1600 mL of urine was drained upon initial insertion of catheter prior to clamping. He has since developed gross hematuria and is on CBI. His kidney injury is most likely related to presumes longstanding bladder outlet obstruction and I suspect his renal function will improve significantly now that the catheter has been inserted. Avoid nephrotoxic agents. He received a L of normal saline in the ED; hold on further IV fluids as chest x-ray shows small effusions and mild pulmonary edema, likely due to the renal failure. Renal ultrasound in a.m. to insure that the hydronephrosis is improving/resolving. He has been started on finasteride. Oxybutynin ordered as he is having significant discomfort
--- NOTE | 2023-03-17 15:46 | WPDUROPN2 ---
Progress Note: A&P Assessment and Plan (1) Bilateral hydronephrosis: Code(s): N13.30 - Unspecified hydronephrosis Status: Acute Assessment and Plan: Mild on KEIKO, recommend repeating in one week. (2) Urinary retention: Code(s): R33.9 - Retention of urine, unspecified Status: Acute Assessment and Plan: Keep gutiérrez in for 7-10 days total then perform voiding trial. Keep CBI running at this time, wean to off when clear, then restart if it becomes bloody again. Dr. Mayorga unable to get into OR tomorrow for cystoscopy. (3) Benign prostate hyperplasia: Code(s): N40.0 - Benign prostatic hyperplasia without lower urinary tract symptoms Status: Acute Assessment and Plan: Continue Flomax and Finasteride. Subjective Subjective Date/Time Seen: 03/17/23 15:46 Interval history: CBI is running on low flow, urine is light red/pink, not much improved from yesterday. Creatinine has also improved greatly to 1.6 and was initially 13.6. He is doing well otherwise. He Continues Tamsulosin and Finasteride. Review of Systems Cardiovascular: Cardiovascular: Denies chest pain Respiratory: Respiratory: Reports no additional respiratory complaints Gastrointestinal: Gastrointestinal: Denies abdominal pain, Denies nausea and Denies vomiting Genitourinary: Genitourinary: Reports hematuria and Denies flank pain Psychiatric: Psychiatric: Denies other Exam Const: General: cooperative and comfortable Resp: Effort & Inspection: normal respiratory effort Cardio: Rate: regular rate GI: GI Palp: Yes Soft to palpation and No Tenderness to palpation present (GI) : General: Yes no CVA tenderness Urinary Catheter: Urinary Catheter: patent and draining, urine clear and urine pink Extrem: Right lower extremity: edema Left lower extremity: edema Objective Data Vital Signs Vital Signs: Vital Signs - 24 hr 03/16/23 19:50 03/16/23 20:00 03/16/23 21:28 Temperature 98.5 F Pulse Rate 110 H 101 H 113 H Respiratory Rate 18 18 18 Blood Pressure 143/91 H Pulse Oximetry 99 Oxygen Delivery 03/17/23 04:33 03/17/23 04:38 03/17/23 08:30 Temperature 97.2 F L Pulse Rate 101 H 89 Respiratory Rate 18 16 Blood Pressure 133/74 Pulse Oximetry 99 Oxygen Delivery Room Air 03/17/23 09:05 03/17/23 09:18 03/17/23 14:00 Temperature 98.4 F Pulse Rate 107 H 100 108 H Respiratory Rate 18 18 18 Blood Pressure 128/78 Pulse Oximetry 98 Oxygen Delivery Intake/Output Intake/Output: Intake & Output 03/14/23 03/15/23 03/16/23 03/17/23 23:59 23:59 23:59 23:59 Intake Total 2120 4780 3900 1820 Output Total 1950 4350 3900 4550 Balance 170 430 0 -2730 Meds/Results Medications: Active Medications Generic Name Dose Route Start Last Admin Trade Name Freq PRN Reason Stop Dose Admin Acetaminophen 650 mg 03/14/23 22:16 03/17/23 12:30 Acetaminophen 325 Mg Tablet PO 650 mg Q6H PRN Administration Mild Pain (1-3) or Fever Hydrocodone Bitart/Acetaminophen 1 tab 03/14/23 22:16 03/17/23 02:16 Hydrocodone/Acetaminophen (*Crx) 5-325 Mg Tablet PO 1 tab Q6H PRN Administration Pain Rated 4-6 Finasteride 5 mg 03/15/23 09:00 03/17/23 08:24 Finasteride 5 Mg Tablet PO 5 mg QAM CHRIS Administration Guaifenesin 600 mg 03/15/23 09:00 03/17/23 08:25 Guaifenesin 12 Hr 600 Mg Tabcr PO 600 mg Q12HR CHRIS Administration Ipratropium [place] 0.5 mg 03/15/23 08:00 03/17/23 13:37 Ipratropium Br 0.02% Inh Soln 0.5 Mg/2.5 Ml Vial INHALATION Not Given Q6HRT CHRIS Levalbuterol HCl 1.25 mg 03/15/23 08:00 03/17/23 13:37 Levalbuterol Neb 1.25 Mg/3 Ml INHALATION Not Given Q6HRT CHRIS Morphine Sulfate 2 mg 03/14/23 22:16 Morphine Sulfate (*Crx) 2 Mg/Ml Inj IV PUSH Q4H PRN Pain Rated 7-10 Oxybutynin Chloride 5 mg 03/15/23 09:00 03/17/23 12:30 Oxybutynin Chloride 5 Mg Tablet PO 5 mg TID [facility]
--- NOTE | 2023-03-17 20:20 | PC.NURSE ---
WHILE ASSESSING AND EMPTYING CBI NOTED CIGARETTE ASHES IN PATIENT'S BATHROOM SINK. TEACHING PROVIDED TO PATIENT REGARDING HOSPITAL POLICY AND SMOKING; ALONG WITH IMPLICATIONS OF THE ACT. COMBER OPERATOR NOTIFIED AND ALSO REINFORCED HOSPITAL POLICY. ALTERNATIVES OFFERED BUT REFUSED BY PATIENT AT THIS TIME.
[2023-03-18] VITALS (12 sets, daily range): BP systolic 120–152; BP diastolic 80–82; PULSE 70–112; RESP 18–20; TEMP 36.1–37; O2SAT 95–100
[2023-03-18] MEDS: IPRATROPIUM BR 0.02% INH SOLN 0.5 MG/2.5 ML VIAL INHALATION ×4 (02:40→19:48)
[2023-03-18] MEDS: LEVALBUTEROL NEB 1.25 MG/3 ML INHALATION ×4 (02:40→19:48)
--- NOTE | 2023-03-18 06:33 | PC.NURSE ---
WHILE PUNCH MACHINE HAND IN ROOM PERFORMING MORNING ROUNDS. SHE REMOVED THE TRASH BAG FROM TRASH CAN AND FOUND THREE(3) BOXES OF CIGARETTES. ITEMS WERE CONFISCATED, LABELLED AND PLACED IN PATIENT BELONGINGS CABIN MAN MED ROOM. WILL RETURN TO PATIENT UPON DISCHARGE.
[2023-03-18 07:38] LABS: Hematocrit 34.8 % (42.0-52.0); Mean Corpuscular HGB Conc 31.6 g/dl (32-36); Mean Corpuscular Hemoglobin 29.9 pg (26-34); Mean Corpuscular Volume 94.6 fl (80-100); Mean Platelet Volume 9.8 fl (7.4-10.4); Platelet Count Result 249 k/mm3 (150-375); Red Blood Count 3.68 M/mm3 (4.6-6.20); Red Cell Distribution Width 13.6 % (11.5-14.5); White Blood Count 10.6 K/mm3 (4.5-10.0)
[2023-03-18 07:45] LABS: Alanine Aminotransferase 35 U/L (6-50); Albumin Level 3.9 g/dL (3.5-5.1); Alkaline Phosphatase 76 U/L (38-126); Anion Gap 4 mmol/L (8-16); Aspartate Amino Transferase 31 U/L (17-59); Bilirubin,Total 0.4 mg/dL (0.2-1.3); Blood Urea Nitrogen 18 mg/dL (9-20); Carbon Dioxide 33 mmol/L (22-30); Chloride 102 mmol/L (98-107); Estimated CRCL calculation 62 ml/min; Estimated Glomerular Filt Rate 56; Glucose 102 mg/dL (65-110); Phosphorus 3.6 mg/dL (2.5-4.5); Potassium 3.9 mmol/L (3.4-5.0); Sodium 139 mmol/L (137-145)
[2023-03-18] MEDS: ACETAMINOPHEN 325 MG TABLET 650 MG PO (08:25)
[2023-03-18] MEDS: oxyBUTYnin CHLORIDE 5 MG TABLET PO ×3 (08:26→17:03)
[2023-03-18] MEDS: FINASTERIDE 5 MG TABLET PO (08:26)
[2023-03-18] MEDS: TAMSULOSIN HCL 0.4 MG CAPSULE PO (08:26)
[2023-03-18] MEDS: guaiFENesin 12 HR 600 MG TABCR PO ×2 (08:26→20:10)
--- NOTE | 2023-03-18 12:15 | WPDUROPN2 ---
Progress Note: A&P Assessment and Plan (1) Bilateral hydronephrosis: Code(s): N13.30 - Unspecified hydronephrosis Status: Acute Assessment and Plan: Mild Bilateral hydro on KEIKO. Repeat in 1-2 weeks. (2) Urinary retention: Code(s): R33.9 - Retention of urine, unspecified Status: Acute Assessment and Plan: Keep gutiérrez in for 7-10 days total, then perform voiding trial. Continue Flomax and Finasteride. (3) Hydronephrosis: Code(s): N13.30 - Unspecified hydronephrosis Status: Acute (4) Retention of urine: Code(s): R33.9 - Retention of urine, unspecified Status: Acute (5) Hematuria: Code(s): R31.9 - Hematuria, unspecified Status: Acute Assessment and Plan: Resolved, CBI was stopped this morning during our visit. If hematuria begins again, go ahead and restart CBI. Plan to keep CBI off if urine remains clear. F/U in the office for a voiding trial in 1-2 weeks with KEIKO prior. Creatinine is within normal limits. No further evaluation at this time. Ok to discharge patient with gutiérrez at anytime per Urology. (6) Benign prostate hyperplasia: Code(s): N40.0 - Benign prostatic hyperplasia without lower urinary tract symptoms Status: Acute Subjective Subjective Date/Time Seen: 03/18/23 12:15 Interval history: CBI is running on low flow, urine is clear today, much improved after 4 days of CBI. Creatinine has also improved greatly to 1.3 and was initially 13.6. He is doing well otherwise. He Continues Tamsulosin and Finasteride. No need to proceed to OR today. Review of Systems Cardiovascular: Cardiovascular: Denies chest pain Respiratory: Respiratory: Reports no additional respiratory complaints Gastrointestinal: Gastrointestinal: Denies abdominal pain, Denies nausea and Denies vomiting Genitourinary: Genitourinary: Denies hematuria, Denies dysuria, Denies flank pain, Denies urinary frequency, Denies urinary hesitancy, Denies urinary incontinence and Denies urinary urgency Exam Const: General: cooperative and comfortable Resp: Effort & Inspection: normal respiratory effort Cardio: Rate: regular rate GI: GI Palp: Yes Soft to palpation and No Tenderness to palpation present (GI) : General: Yes no CVA tenderness Extrem: Right lower extremity: edema Left lower extremity: edema Objective Data Vital Signs Vital Signs: Vital Signs - 24 hr 03/17/23 14:00 03/17/23 20:53 03/17/23 22:00 Temperature 98.4 F 97.3 F L Pulse Rate 108 H 98 100 Respiratory Rate 18 18 18 Blood Pressure 128/78 136/73 Pulse Oximetry 98 99 Oxygen Delivery 03/17/23 20:00 03/18/23 02:40 03/18/23 02:50 Temperature Pulse Rate 95 97 Respiratory Rate 18 18 Blood Pressure Pulse Oximetry Oxygen Delivery Room Air 03/18/23 06:00 03/18/23 08:00 03/18/23 08:15 Temperature 97.0 F L Pulse Rate 94 89 99 Respiratory Rate 18 18 18 Blood Pressure 146/82 H Pulse Oximetry 100 Oxygen Delivery 03/18/23 08:30 Temperature Pulse Rate Respiratory Rate Blood Pressure Pulse Oximetry Oxygen Delivery Room Air Intake/Output Intake/Output: Intake & Output 03/15/23 03/16/23 03/17/23 03/18/23 23:59 23:59 23:59 23:59 Intake Total 4780 3900 4060 2180 Output Total 4350 3900 5300 Balance 430 0 -1240 2180 Meds/Results Medications: Active Medications Generic Name Dose Route Start Last Admin Trade Name Freq PRN Reason Stop Dose Admin Acetaminophen 650 mg 03/14/23 22:16 03/18/23 08:25 Acetaminophen 325 Mg Tablet PO 650 mg Q6H PRN Administration Mild Pain (1-3) or Fever Hydrocodone Bitart/Acetaminophen 1 tab 03/14/23 22:16 03/17/23 02:16 Hydrocodone/Acetaminophen (*Crx) 5-325 Mg Tablet PO 1 tab Q6H PRN Administration Pain Rated 4-6 Finasteride 5 mg 03/15/23 09:00 03/18/23 08:26 Finasteride 5 Mg Tablet PO 5 mg QAM CHRIS Administration Guaifenesin 600 mg 06
--- NOTE | 2023-03-18 12:17 | PM.PNNEP ---
Progress Note: A&P Assessment and Plan (1) Acute kidney injury: Code(s): N17.9 - Acute kidney failure, unspecified Status: Acute Assessment and Plan: improvement noted suspect due to obstructive uropathy/urinary retention evidence of bilateral hydroureteronephrosis by CT imaging in ER 1600cc urine output following placement of gutiérrez catheter improvement in renal function noted as well repeat renal ultrasound with improvement in hydronephrosis follow trend of renal function and UOP (2) Bladder outlet obstruction: Code(s): N32.0 - Bladder-neck obstruction Status: Acute Assessment and Plan: as noted by admission imaging gutiérrez catheter in place good urine output noted with downward trend of creatinine Urology following with recommendations noted on flomax and finasteride (3) Hematuria: Code(s): R31.9 - Hematuria, unspecified Status: Acute Assessment and Plan: noted following placement of gutiérrez catheter due to BPH and likely gutiérrez trauma CBI in place Urology following (4) Elevated blood pressure reading: Code(s): R03.0 - Elevated blood-pressure reading, without diagnosis of hypertension Status: Acute Assessment and Plan: due to undiagnosed HTN versus pain-related issues improvement noted follow trend of hemodynamics Not much else to add -- will continue to follow from a distance. Subjective Date/time seen: 03/18/23 12:17 Interval history: Follow-up for acute kidney injury/acute renal failure. Appears to be doing reasonably well since I last saw him; continue to have good urine output with gutiérrez catheter in place; renal function continues to improve as noted by trend in labs; no issues/events overnight or earlier this morning. Exam Narrative: General: WD/WN male in NAD Heart: normal S1 and S2; no rub Lungs: clear to auscultation Abdomen: soft, nontender, nondistended, positive bowel sounds Extremities: no cyanosis or clubbing; 1+ edema Skin: no rash Objective Data Vital Signs Vital Signs: Vital Signs Temp Pulse Resp BP Pulse Ox O2 Del Method 03/18/23 08:30 Room Air 03/18/23 08:15 99 18 03/18/23 08:00 89 18 03/18/23 06:00 97.0 F L 94 18 146/82 H 100 03/18/23 02:50 97 18 03/18/23 02:40 95 18 03/17/23 20:00 Room Air 03/17/23 22:00 97.3 F L 100 18 136/73 99 03/17/23 20:53 98 18 03/17/23 14:00 98.4 F 108 H 18 128/78 98 Intake/Output Intake/Output: Intake & Output 03/15/23 03/16/23 03/17/23 03/18/23 23:59 23:59 23:59 23:59 Intake Total 4780 3900 4060 2420 Output Total 4350 3900 5300 Balance 430 0 -1240 2420 Meds/Results Medications: Active Medications Generic Name Dose Route Start Last Admin Trade Name Freq PRN Reason Stop Dose Admin Acetaminophen 650 mg 03/14/23 22:16 03/18/23 08:25 Acetaminophen 325 Mg Tablet PO 650 mg Q6H PRN Administration Mild Pain (1-3) or Fever Hydrocodone Bitart/Acetaminophen 1 tab 03/14/23 22:16 03/17/23 02:16 Hydrocodone/Acetaminophen (*Crx) 5-325 Mg Tablet PO 1 tab Q6H PRN Administration Pain Rated 4-6 Finasteride 5 mg 03/15/23 09:00 03/18/23 08:26 Finasteride 5 Mg Tablet PO 5 mg QAM CHRIS Administration Guaifenesin 600 mg 03/15/23 09:00 03/18/23 08:26 Guaifenesin 12 Hr 600 Mg Tabcr PO 600 mg Q12HR CHRIS Administration Ipratropium [place] 0.5 mg 03/15/23 08:00 03/18/23 08:00 Ipratropium Br 0.02% Inh Soln 0.5 Mg/2.5 Ml Vial INHALATION 0.5 mg Q6HRT CHRIS Administration Levalbuterol HCl 1.25 mg 03/15/23 08:00 03/18/23 08:00 Levalbuterol Neb 1.25 Mg/3 Ml INHALATION 1.25 mg Q6HRT CHRIS Administration Morphine Sulfate 2 mg 03/14/23 22:16 Morphine Sulfate (*Crx) 2 Mg/Ml Inj IV PUSH Q4H PRN Pain Rated 7-10 Oxybutynin Chloride 5 mg 03/15/23 09:00 03/18/23 12:28 Oxybutynin Chloride 5 M
--- NOTE | 2023-03-18 12:17 | P.PNNP_ITS ---
Progress Note: A&P Assessment and Plan (1) Acute kidney injury: Code(s): N17.9 - Acute kidney failure, unspecified Status: Acute Assessment and Plan: * improvement noted * suspect due to obstructive uropathy/urinary retention * evidence of bilateral hydroureteronephrosis by CT imaging in ER * 1600cc urine output following placement of gutiérrez catheter * improvement in renal function noted as well * repeat renal ultrasound with improvement in hydronephrosis * follow trend of renal function and UOP (2) Bladder outlet obstruction: Code(s): N32.0 - Bladder-neck obstruction Status: Acute Assessment and Plan: * as noted by admission imaging * gutiérrez catheter in place * good urine output noted with downward trend of creatinine * Urology following with recommendations noted * on flomax and finasteride (3) Hematuria: Code(s): R31.9 - Hematuria, unspecified Status: Acute Assessment and Plan: * noted following placement of gutiérrez catheter * due to BPH and likely gutiérrez trauma * CBI in place * Urology following (4) Elevated blood pressure reading: Code(s): R03.0 - Elevated blood-pressure reading, without diagnosis of hypertension Status: Acute Assessment and Plan: * due to undiagnosed HTN versus pain-related issues * improvement noted * follow trend of hemodynamics Not much else to add -- will continue to follow from a distance. Subjective Date/time seen: 03/18/23 12:17 Interval history: Follow-up for acute kidney injury/acute renal failure. Appears to be doing reasonably well since I last saw him; continue to have good urine output with gutiérrez catheter in place; renal function continues to improve as noted by trend in labs; no issues/events overnight or earlier this morning. Exam Narrative: General: WD/WN male in NAD Heart: normal S1 and S2; no rub Lungs: clear to auscultation Abdomen: soft, nontender, nondistended, positive bowel sounds Extremities: no cyanosis or clubbing; 1+ edema Skin: no rash Objective Data Vital Signs Vital Signs: Vital Signs Temp Pulse Resp BP Pulse Ox O2 Del Method 03/18/23 08:30 Room Air 03/18/23 08:15 99 18 03/18/23 08:00 89 18 03/18/23 06:00 97.0 F L 94 18 146/82 H 100 03/18/23 02:50 97 18 03/18/23 02:40 95 18 03/17/23 20:00 Room Air 03/17/23 22:00 97.3 F L 100 18 136/73 99 03/17/23 20:53 98 18 03/17/23 14:00 98.4 F 108 H 18 128/78 98 Intake/Output Intake/Output: Intake & Output 03/15/23 03/16/23 03/17/23 03/18/23 23:59 23:59 23:59 23:59 Intake Total 4780 3900 4060 2420 Output Total 4350 3900 5300 Balance 430 0 -1240 2420 Meds/Results Medications: Active Medications Generic Name Dose Route Start Last Admin Trade Name Freq PRN Reason Stop Dose Admin Acetaminophen 650 mg 03/14/23 22:16 03/18/23 08:25 Acetaminophen 325 Mg Tablet PO 650 mg Q6H PRN Administration Mild Pain (1-3) or Fever Hydrocodone Bitart/Acetaminophen 1 tab 03/14/23 22:16 03/17/23 02:16 Hydrocodone/Acetaminophen (*Crx) 5-325 Mg Tablet PO 1
--- NOTE | 2023-03-18 17:29 | PM.IMPN ---
Progress Note: A&P Assessment and Plan (1) Acute kidney injury: Code(s): N17.9 - Acute kidney failure, unspecified Status: Acute (2) Bladder outlet obstruction: Code(s): N32.0 - Bladder-neck obstruction Status: Acute (3) Elevated blood pressure reading: Code(s): R03.0 - Elevated blood-pressure reading, without diagnosis of hypertension Status: Acute (4) Urinary retention: Code(s): R33.9 - Retention of urine, unspecified Status: Acute (5) Bilateral hydronephrosis: Code(s): N13.30 - Unspecified hydronephrosis Status: Acute (6) Benign prostate hyperplasia: Code(s): N40.0 - Benign prostatic hyperplasia without lower urinary tract symptoms Status: Acute (7) Hematuria: Code(s): R31.9 - Hematuria, unspecified Status: Acute (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 Labs, imaging, EKG, and all reports were personally reviewed. He was found to have a markedly distended urinary bladder and over 1600 mL of urine was drained upon initial insertion of catheter prior to clamping. He has since developed gross hematuria and is on CBI. His kidney injury is most likely related to presumes longstanding bladder outlet obstruction and I suspect his renal function will improve significantly now that the catheter has been inserted. Avoid nephrotoxic agents. He received a L of normal saline in the ED; hold on further IV fluids as chest x-ray shows small effusions and mild pulmonary edema, likely due to the renal failure. Renal ultrasound in a.m. to insure that the hydronephrosis is improving/resolving. He has been started on finasteride. Oxybutynin ordered as he is having significant discomfort from the Rubio catheter. Blood pressures were quite elevated on arrival but they have improved significantly with pain control. Continue to monitor closely and initiate antihypertensives if indicated, depending on how he trends. Smoking cessation is encouraged and was discussed. He declines the need for nicotine patch ?as they do not help anyway.? 03/17/2023 interval history:?patient with hematuria was seen by his urologist and bladder was irrigated and placed on CBI and his urine is still pink and was seen by his urologist and further recommendation to follow. patient had developed BRYAN and hydropyonephrosis, which has improved with CBI, Patient has seen by nephrologs, will continue to monitor, patient stats he lives home alone will not be able to manage CBI, patient will need placement, patient with his of smoking and c/o cough and congestion, he does not have wheezing, will give patient guaifenesin and Duo neb and will monitory. 03/18/2023: Presented with swelling and shortness of breath. Workup revealed markedly distended urinary bladder with over 1600 mL of urine which was drained upon initiation of urinary catheter. Subsequently developed gross hematuria and was placed on CBI. BRYAN with creatinine of [address] with findings of bladder outlet obstruction with bilateral moderate hydronephrosis. Likely related to BPH. Started on find yesterday I had and Flomax. Urology consulted. Continue Rubio catheter at discharge planned. Still intermittent hematuria CBI. Since a.m.. 03/18/2023. Renal ultrasound follow-up with improving hydronephrosis. Going to go to nursing facility at discharge. Will was overnight to ensure no worsening of hematuria needing CBI. Underlying COPD on inhalers. Venous duplex negative for DVT Subjective Date/time seen: 03/18/23 17:29 Interval history: The patient presented to the emergency department for evaluation of swelling and shortness of breath as per HPI. Labs,
--- NOTE | 2023-03-18 18:08 | PC.NURSE ---
Pt had a visitor who was carrying a black bag. Upon assessment of the bag, RN found 2 more boxes of cigarettes. Those were confiscated and placed with the other boxes of cigarettes in the med room drawer with patient label.
--- NOTE | 2023-03-18 18:10 | PC.NURSE ---
RN educated pt on hospital policy regarding smoking, the danger to self and others. Pt refusing education or a nicotine patch at this time. groundskeeper supervisor notified.
[2023-03-18] MEDS: HYDROcodone/acetaminophen (*CRX) 5-325 MG TABLET 1 TAB PO (20:12)
[2023-03-19] MEDS: HYDROcodone/acetaminophen (*CRX) 5-325 MG TABLET 1 TAB PO (02:12)
[2023-03-19 04:45] VITALS: BP 146/91; PULSE 91; RESP 18; TEMP 36.5; O2SAT 98
[2023-03-19 05:32] LABS: Albumin Level 3.8 g/dL (3.5-5.1); Anion Gap 4 mmol/L (8-16); Blood Urea Nitrogen 18 mg/dL (9-20); Calcium 9.1 mg/dL (8.4-10.2); Carbon Dioxide 35 mmol/L (22-30); Chloride 99 mmol/L (98-107); Estimated CRCL calculation 62 ml/min; Estimated Glomerular Filt Rate 56; Glucose 94 mg/dL (65-110); Phosphorus 3.8 mg/dL (2.5-4.5); Potassium 3.9 mmol/L (3.4-5.0); Sodium 138 mmol/L (137-145)
[2023-03-19] MEDS: TAMSULOSIN HCL 0.4 MG CAPSULE PO (08:48)
[2023-03-19] MEDS: guaiFENesin 12 HR 600 MG TABCR PO (08:48)
[2023-03-19] MEDS: oxyBUTYnin CHLORIDE 5 MG TABLET PO ×2 (08:48→12:18)
[2023-03-19] MEDS: FINASTERIDE 5 MG TABLET PO (08:48)
--- NOTE | 2023-03-19 13:33 | PM.DS ---
DS: Admitting Diagnosis Discharge Date 03/19/2023 Admitting Diagnosis Shortness of breath DS: Discharge Diagnosis Discharge Diagnosis (1) Acute kidney injury: Code(s): N17.9 - Acute kidney failure, unspecified Status: Acute (2) Bladder outlet obstruction: Code(s): N32.0 - Bladder-neck obstruction Status: Acute (3) Elevated blood pressure reading: Code(s): R03.0 - Elevated blood-pressure reading, without diagnosis of hypertension Status: Acute (4) Urinary retention: Code(s): R33.9 - Retention of urine, unspecified Status: Acute (5) Bilateral hydronephrosis: Code(s): N13.30 - Unspecified hydronephrosis Status: Acute (6) Benign prostate hyperplasia: Code(s): N40.0 - Benign prostatic hyperplasia without lower urinary tract symptoms Status: Acute (7) Hematuria: Code(s): R31.9 - Hematuria, unspecified Status: Acute (8) COPD with emphysema: Code(s): J43.9 - Emphysema, unspecified Status: Acute (9) Tobacco dependence: Code(s): F17.200 - Nicotine dependence, unspecified, uncomplicated Status: Acute DS: Summary Hospital Course Hospital Course: Presented with swelling and shortness of breath.? Workup revealed markedly distended urinary bladder with over 1600 mL of urine which was drained upon initiation of urinary catheter.? Subsequently developed gross hematuria and was placed on CBI.? BRYNA with creatinine of [address] with findings of bladder outlet obstruction with bilateral moderate hydronephrosis.? Likely related to BPH.? Started on finasteride and Flomax.? Urology consulted.? Continue Gutiérrez catheter at discharge planned.? Still intermittent hematuria. CBI is off Since a.m.. 03/18/2023.? Renal ultrasound follow-up with improving hydronephrosis.? Going to go to nursing facility at discharge.? Underlying COPD on inhalers.? Venous duplex negative for DVT Time Spent with Patient Time attestation: Total time spent providing and/or coordinating discharge services: 40 minutes Exam Narrative: Patient is comfortable, NAD HEENT: eyes are clear and none icteric LUNGS: Bilateral fair air entry the congestion no wheezing HEART: RR S1S2 ABD: Distended Lower extremities: Bilateral lower extremity edema pitting SKIN: nonjaundiced Neuro: grossly intact. DS: Data Data Completed and Pending Labs on day of discharge: Labs from last 24 hours 03/19/23 05:03 Sodium 138 Potassium 3.9 Chloride 99 Carbon Dioxide 35 H Anion Gap 4 L BUN 18 Creatinine 1.30 Estim Creat Clear Calc 62 Estimated GFR 56 L Glucose 94 Calcium 9.1 Phosphorus 3.8 Albumin 3.8 Discharge Plan Discharge Attending physician on discharge: Liban Hayes Consulting providers: Terrence Farooq; Magdy Pinto; Sotero Verma; Matteo Ponce Discharging Clinician: Liban Hayes Anticipated Discharge Date/Time: 03/19/23 13:30 Patient Disposition: SNF Activity: as tolerated Diet: heart healthy Discharge Instructions: Urology Instructions: Continue Finasteride and Flomax. Keep gutiérrez in for 1-2 weeks, then perform voiding trial either in office or in rehab. Call the office or go to the ER if you devleop a fever, cloudy, malodorous urine or grossly bloody urine. If unable to urinate after gutiérrez is removed, ok to replace gutiérrez in rehab. Repeat KEIKO in 1-2 weeks to ensure hydro has resolved. Patient Instructions: How to Stop Smoking (GEN) Stand Alone Forms: General Discharge Information, Mcc Discharge Follow-up/Referrals: Magdy Pinto MD [Physician] - 3 Weeks Terrence Farooq MD [Physician] - 1 Week Discharge Medications: New finasteride [Proscar] 5 mg Tablet 5 mg PO QAM Qty: 30 0RF tamsulosin 0.4 mg Capsule 0.4 mg PO QAM Qty: 30 0RF albuterol sulfate 90 mcg/actuation HFA aerosol inhaler 2 puff inhalation QID PRN (Reason: shortness of breath or
[2023-03-19 14:00] VITALS: BP 146/79; PULSE 105; RESP 18; TEMP 36.3; O2SAT 97
[2023-03-19 15:07] LABS: SARS-CoV-2 RNA PCR Negative (Negative)
== END 2023-03-19 16:15 | DRG 501 ==
LOC: ANHED 12:19 → ANH3MED 13:20
PROVIDERS: Internal Medicine Nephrology; Physician Assistant; Admitting Provider Family Medicine; Emergency Provider Physician Assistant; Visit Provider Internal Medicine
DX: N40.1 Benign prostatic hyperplasia with lower urinary tract symptoms (principal); N17.9 Acute kidney failure, unspecified; N13.30 Unspecified hydronephrosis; N32.0 Bladder-neck obstruction; F17.210 Nicotine dependence, cigarettes, uncomplicated; R33.8 Other retention of urine; R31.9 Hematuria, unspecified; I10 Essential (primary) hypertension; J44.9 Chronic obstructive pulmonary disease, unspecified; Z20.822 Contact with and (suspected) exposure to COVID-19; Z86.19 Personal history of other infectious and parasitic diseases
CPT/HCPCS: 36415; 71045; 74176; 76775; 80048; 80053; 80069; 81003; 83735; 83880; 84100; 84484; 85025; 85027; 87635; 93005; 93970; 94640; 96374; 99285; A9270; J7030

== ENCOUNTER 2023-03-31 00:20 | Inpatient (IN) | payer MEDICAID, SELFPAY ==
[2023-03-31 00:21] VITALS: BP 169/91; PULSE 112; RESP 13; TEMP 37; O2SAT 100
[2023-03-31] MEDS: HYDROcodone/acetaminophen (*CRX) 5-325 MG TABLET 1 TAB PO (01:16)
--- NOTE | 2023-03-31 03:33 | ED.GENADULT ---
HPI - General Adult General Chief complaint: Urogenital-Male Stated complaint: BLOOD IN CATHETER BAG Time Seen by Provider: 03/31/23 00:43 History of Present Illness HPI narrative: This is a 62-year-old male from at [facility] for hematuria. Patient says that he was trying to take a shower and was manipulating his Rubio. He does not recall a Neal anchor pole on the Rubio. At that time he started to have laurie blood in the bag as well as blood dripping out of the urinary meatus with passage of clots. He started developed abdominal discomfort. Related Data Allergies Allergy/AdvReac Type Severity Reaction Status Date / Time No Known Allergies Allergy Verified 03/31/23 00:40 [facility] Past Medical History Medical History Benign prostate hyperplasia COPD with emphysema Skin cancer Tobacco dependence Surgical History Surgical History History of tonsillectomy Status post surgical removal of malignant neoplasm of skin Family History Family History Other Family history non-contributory Social History Social History Social History: Surrogate medical decision maker: Ari Giron, daughter. Code status: Full code. Smoking packs per day: 1.5 Smoking cigarettes per day: 30.0 Years smoked: 49 Smoking pack-years: 73.50 Smoking status: Current every day smoker Tobacco type: cigarettes Second hand tobacco smoke exposure: Yes Alcohol intake: never Substance use: never Substance use type: does not use Lack of Transportation: No Lack of Food: Never True Current Housing: I Have Housing Concerned About Future Housing: YES Difficulty Paying Gas/Electric Bills: YES Difficulty Paying for Meds: YES Currently Unemployed: No Education: High School Diploma/GED Difficulty w/ Childcare or Family Care: No Additional living arrangements comments: Lives in [place]. Additional occupation/education comments: Works at a local [employer]. Spiritual care concerns: No Exam Narrative: APPEARANCE: No apparent distress. Head: Necrotic mass on the size of his nose which is concerning for cancer EYES: EOMI, NOSE: Atraumatic NECK: Trachea midline RESPIRATORY: No increased rate of breathing CARDIOVASCULAR: RRR, ABDOMINAL: Non-distended MUSCULOSKELETAl: tenderness in the suprapubic area without obvious mass. No guarding or rebound Genital exam: Bleeding from the urinary meatus around the 3 way catheter. Rubio has laurie blood in it NEURO: Alert. Moving 4/4 extremities SKIN:: Warm, dry. Normal color PSYCHIATRIC: Normal affect point of care transabdominal ultrasound performed by myself showed 600 cc of fluid in the bladder with heterogenous material that is likely blood clots. Course Vital Signs Vital signs: Vital Signs Temperature 98.6 F 03/31/23 00:21 Pulse Rate 112 H 03/31/23 00:21 Respiratory Rate 13 03/31/23 00:21 Blood Pressure 169/91 H 03/31/23 00:21 Pulse Oximetry 100 03/31/23 00:21 Oxygen Delivery Room Air 03/31/23 00:21 Temperature 98.6 F 03/31/23 00:21 Pulse Rate 130 H 03/31/23 04:35 Respiratory Rate 16 03/31/23 04:35 Blood Pressure 161/98 H 03/31/23 04:35 Pulse Oximetry 99 03/31/23 04:35 Oxygen Delivery Room Air 03/31/23 00:21 Medical Decision Making MDM Narrative Medical decision making narrative: -Presentation: 62-year-old male with indwelling Rubio catheter for urinary retention and hematuria presenting with laurie hematuria and bleeding around the catheter. patient denies Rubio trauma. Point of care ultrasound showed 600 cc in the bladder with clots. The catheter was repositioned several times without resolution of the urinary retention. patient will be hooked up to continuous bladder irrig
[2023-03-31 04:35] VITALS: BP 161/98; PULSE 130; RESP 16; O2SAT 99
[2023-03-31 05:01] LABS: Basophils Absolute Auto 0.1 K/mm3 (0.0-0.1); Basophils Percent Auto 0.6 % (0.2-1.2); Eosinophils Absolute Auto 0.3 K/mm3 (0-0.3); Eosinophils Percent Auto 2.5 % (0-4.4); Hematocrit 30.5 % (42.0-52.0); Hemoglobin 9.9 g/dL (14.0-18.0); Immature Granulocyte Absolute 0.12 K/mm3 (0.00-0.031); Immature Granulocyte Percent A 0.9 % (0-0.5); Lymphocytes Absolute Auto 1.15 K/mm3 (0.9-3.2); Lymphocytes Percent Auto 8.6 % (18.3-44.2); Mean Corpuscular HGB Conc 32.5 g/dl (32-36); Mean Corpuscular Hemoglobin 30.7 pg (26-34); Mean Corpuscular Volume 94.4 fl (80-100); Mean Platelet Volume 9.3 fl (7.4-10.4); Monocytes Absolute Auto 1.1 K/mm3 (0.1-0.6); Monocytes Percent Auto 8.3 % (2.6-8.5); Neutrophils Absolute Auto 10.6 K/mm3 (1.3-6.7); Neutrophils Percent Auto 79.1 % (45.5-73.1); Platelet Count Result 384 k/mm3 (150-375); Red Blood Count 3.23 M/mm3 (4.6-6.20); Red Cell Distribution Width 14.3 % (11.5-14.5); White Blood Count 13.4 K/mm3 (4.5-10.0)
--- NOTE | 2023-03-31 05:01 | PC.NURSE ---
Continuous bladder irrigation started at this time. Catheter is patent and draining. Pt has complaints of pressure/stinging in abdomen and penis but refused Dilaudid.
--- NOTE | 2023-03-31 05:06 | PC.NURSE ---
Addendum entered by Lidia Mantilla RN 03/31/23 05:09: Small amount of blood continuously dripping from the opening of the meatus around the catheter site. Original Note: Small amount of blood continous
[2023-03-31 05:11] LABS: Anion Gap 7 mmol/L (8-16); Blood Urea Nitrogen 30 mg/dL (9-20); Calcium 9.3 mg/dL (8.4-10.2); Carbon Dioxide 25 mmol/L (22-30); Chloride 101 mmol/L (98-107); Estimated CRCL calculation 41 ml/min; Estimated Glomerular Filt Rate 34; Glucose 147 mg/dL (65-110); Potassium 4.4 mmol/L (3.4-5.0); Sodium 133 mmol/L (137-145)
[2023-03-31 05:12] LABS: Prothrombin Time 13.9 Seconds (11.1-14.7)
[2023-03-31 05:15] LABS: Appearance Urine Turbid (Clear); Color Urine Red (Yellow); Glucose Urine UA Negative (Negative); Ketones Urine Negative (Negative); Specific Grav Ur 1.022 (1.001-1.035); Urobilinogen Urine 0.2 mg/dL (<2.0)
[2023-03-31 05:17] LABS: Blood Urine 4+ (Negative); RBC Urine >100 /hpf (0-2)
[2023-03-31 05:21] LABS: Bacteria Urine Unable to determine /hpf; Squamous Epithelial Cell Urine Unable to determine /hpf (Few); WBC Urine Unable to determine /hpf
[2023-03-31 05:24] LABS: Add Urine Microscopic? YES
--- NOTE | 2023-03-31 06:52 | PC.NURSE ---
while attempting to call report to Melissa TELLES, ED provider discovered pt meatus leaking blood and CBI fluid. CBI stopped at this time. Melissa TELLES made aware of pt condition by this RN. cashiers supervisor aware of situation. Dr. Mayorga to assess pt in ED before further orders are implemented.
--- NOTE | 2023-03-31 06:59 | PC.NURSE ---
Pt refuses to keep client services representative or pulse ox on.
--- NOTE | 2023-03-31 07:05 | WPDURCON ---
Assessment and Plan Assessment and plan (1) Bilateral hydronephrosis: Code(s): N13.30 - Unspecified hydronephrosis Status: Acute (2) Urinary retention: Code(s): R33.9 - Retention of urine, unspecified Status: Acute (3) Hydronephrosis: Code(s): N13.30 - Unspecified hydronephrosis Status: Acute (4) Retention of urine: Code(s): R33.9 - Retention of urine, unspecified Status: Acute (5) Hematuria: Code(s): R31.9 - Hematuria, unspecified Status: Acute Assessment and Plan: Urinary retention with recurrent hematuria secondary to a traumatic catheter incident. I will plan cystoscopy with clot evacuation and resume continuous bladder irrigation Urology Consult Note HPI Date Seen: 03/31/23 Requesting Physician: Randal Fung MD Primary Care Provider: Ruben Gonzalez MD Consult Narrative Narrative: Andrey Giron is a 62 year old male Known to our practice due to a recent admission for urinary retention and acute kidney injury. He was sent home with Rubio catheter after several days of hematuria secondary to rapid bladder decompression. It looks safety had an appointment yesterday which he missed. He presents back to the emergency department with a possible displaced catheter and recurrent hematuria with clot retention. Review of Systems Review of Systems: All systems reviewed & are unremarkable except as noted in HPI and below PMFSH Past Medical History Medical History Benign prostate hyperplasia COPD with emphysema Skin cancer Tobacco dependence Surgical History Surgical History History of tonsillectomy Status post surgical removal of malignant neoplasm of skin Family History Family History Other Family history non-contributory Social History Social History Social History: Surrogate medical decision maker: Ari Giron, daughter. Code status: Full code. Smoking packs per day: 1.5 Smoking cigarettes per day: 30.0 Years smoked: 49 Smoking pack-years: 73.50 Smoking status: Current every day smoker Tobacco type: cigarettes Second hand tobacco smoke exposure: Yes Alcohol intake: never Substance use: never Substance use type: does not use Lack of Transportation: No Lack of Food: Never True Current Housing: I Have Housing Concerned About Future Housing: YES Difficulty Paying Gas/Electric Bills: YES Difficulty Paying for Meds: YES Currently Unemployed: No Education: High School Diploma/GED Difficulty w/ Childcare or Family Care: No Additional living arrangements comments: Lives in [place]. Additional occupation/education comments: Works at a local [employer]. Spiritual care concerns: No Meds Home Medications and Allergies Home Medications Medication Instructions Recorded Confirmed Type albuterol sulfate 90 mcg/actuation 2 puff inhalation QID PRN 03/19/23 Rx aerosol inhaler shortness of breath or wheezing #8.5 grams finasteride 5 mg tablet (Proscar) 5 mg PO QAM #30 tabs 03/19/23 Rx tamsulosin 0.4 mg capsule 0.4 mg PO QAM #30 caps 03/19/23 Rx Allergies Allergy/AdvReac Type Severity Reaction Status Date / Time No Known Allergies Allergy Verified 03/31/23 00:40 Vital Signs Vital Signs - 24 hr 03/31/23 00:21 03/31/23 04:35 Temperature 98.6 F Pulse Rate 112 H 130 H Respiratory Rate 13 16 Blood Pressure 169/91 H 161/98 H Pulse Oximetry 100 99 Oxygen Delivery Room Air Exam Const: General: no acute distress Resp: Effort & Inspection: normal respiratory effort GI: Inspection: non-distended GI Palp: No abdominal tenderness and No Guarding due to palpation present (GI) Auscultation: normal bowel sounds Urinary Catheter: Urinary Cath
--- NOTE | 2023-03-31 07:09 | WPDHPUPDATE1 ---
History and Physical Update Update Date/Time: 03/31/23 07:09 History and Physical has been reviewed, including an updated exam of the patient. There are NO changes in the patient's condition. Risks, benefits, and alternatives have been discussed and questions answered. Patient agrees to proceed with procedure.
[2023-03-31 07:45] VITALS: BP 132/70; PULSE 84; RESP 16; TEMP 36.4; O2SAT 98
[2023-03-31 08:18] VITALS: BP 147/92; PULSE 123; RESP 18; TEMP 36.1; O2SAT 99
--- NOTE | 2023-03-31 09:13 | SUR.PREOP ---
Patient very argumentative. Refuses to believe what he's being told by Dr Mayorga. Wants a cab to leave and return to [facility]. Has been told by this nurse and by Dr Mayorga that his life may be in jepardy in the next 24 hours due to bleeding. Patient says he'll take his chances.
--- NOTE | 2023-03-31 09:25 | SUR.PREOP ---
Notified Hospitalist Arabella of patient leaving AMA. Called [facility] and informed them he was heading their way. Called [employer], patient says he will pay for the cab.
--- NOTE | 2023-03-31 09:45 | SUR.PREOP ---
Patient signed out AMA. [facility] provided voucher for cab to return to [facility].
== END 2023-03-31 09:48 | disposition left against medical advice (07) | DRG 466 ==
LOC: ANHED 03:43 → ANH3MEDSUR 06:24
PROVIDERS: Admitting Provider Internal Medicine; Emergency Provider Emergency Medicine; PCP Hospitalist; Visit Provider Urology
DX: T83.83XA Hemorrhage due to genitourinary prosthetic devices, implants and grafts, initial encounter (principal); N13.30 Unspecified hydronephrosis; R31.9 Hematuria, unspecified; R33.9 Retention of urine, unspecified; N40.0 Benign prostatic hyperplasia without lower urinary tract symptoms; J44.9 Chronic obstructive pulmonary disease, unspecified; F17.210 Nicotine dependence, cigarettes, uncomplicated
CPT/HCPCS: 36415; 80048; 81001; 85025; 85610; 85730; 99285; A9270; J1170

== ENCOUNTER 2023-03-31 15:17 | Observation (INO) | payer MEDICAID, SELFPAY ==
[2023-03-31] VITALS (8 sets, daily range): BP systolic 124–148; BP diastolic 62–83; PULSE 106–110; RESP 14–20; TEMP 36.1–37.2; O2SAT 95–100
--- NOTE | ~2023-03-31 | US_ITS ---
EXAMINATION: US venous doppler [facility] DATE: 04/01/2023 08:28 INDICATION: Bilateral lower limb swelling, right greater than left. TECHNIQUE: Grayscale ultrasound images without and with compression and Doppler ultrasound images of the bilateral lower extremity veins were obtained. COMPARISON: None. FINDINGS: The visualized portions of right common femoral vein, profunda (deep) femoral vein, femoral vein, pop liteal vein, posterior tibial veins, gastrocnemius vein and greater saphenous vein outflow are patent . The right peroneal veins are not definitively identified with no vascular flow identified in the re gion of the peroneal veins is identified on the prior study suspicious for thrombosis. The visualized portions of left common femoral vein, profunda femoral vein, femoral vein, popliteal v ein, posterior tibial veins, peroneal veins, gastrocnemius vein and greater saphenous vein outflow ar e patent. IMPRESSION: 1. Right peroneal veins are not identified with no vascular flow identified on color Doppler in the region of the peroneal veins as identified on the prior study which is suspicious but not definitive for deep venous thrombosis. No other deep venous thrombosis in either lower limb.. Reviewed, dictated and finalized at location A. IMPRESSION: 1. Right peroneal veins are not identified with no vascular flow identified on color Doppler in the region of the peroneal veins as identified on the prior s tudy which is suspicious but not definitive for deep venous thrombosis. No othe r deep venous thrombosis in either lower limb..
--- NOTE | 2023-03-31 15:43 | WPDURCON ---
Assessment and Plan Assessment and plan (1) Urinary retention: Code(s): R33.9 - Retention of urine, unspecified Status: Acute (2) Hematuria: Code(s): R31.9 - Hematuria, unspecified Status: Acute Assessment and Plan: Cystoscopy with clot evacuation and replacement of catheter with continuous irrigation Urology Consult Note HPI Date Seen: 03/31/23 Requesting Physician: Pieter Mayorga MD Primary Care Provider: Ruben Gonzalez MD Consult Narrative Narrative: Andrey Giron is a 62 year old male who is known to our practice all to well. He was admitted for several days with retention. With rapid bladder decompression he developed gross hematuria. He was due to have his catheter out yesterday but failed to show for his appointment. He was then [place] [facility] early this morning with gross hematuria and evidence of clot retention. He refused cysto clot evacuation at that point. He went back to the ER at hospital in [place] was a neurologist were available to care for him. They contacted me and I recommended transfer back here to [place]. Review of Systems Review of Systems: All systems reviewed & are unremarkable except as noted in HPI and below PMFSH Past Medical History Medical History Benign prostate hyperplasia COPD with emphysema Skin cancer Tobacco dependence Surgical History Surgical History History of tonsillectomy Status post surgical removal of malignant neoplasm of skin Family History Family History Other Family history non-contributory Social History Social History Social History: Surrogate medical decision maker: Ari Giron, daughter. Code status: Full code. Smoking packs per day: 1.5 Smoking cigarettes per day: 30.0 Years smoked: 49 Smoking pack-years: 73.50 Smoking status: Current every day smoker Tobacco type: cigarettes Second hand tobacco smoke exposure: Yes Alcohol intake: never Substance use: never Substance use type: does not use Lack of Transportation: No Lack of Food: Never True Current Housing: I Have Housing Concerned About Future Housing: YES Difficulty Paying Gas/Electric Bills: YES Difficulty Paying for Meds: YES Currently Unemployed: No Education: High School Diploma/GED Difficulty w/ Childcare or Family Care: No Additional living arrangements comments: Lives in [place]. Additional occupation/education comments: Works at a local [employer] Spiritual care concerns: No Meds Home Medications and Allergies Home Medications Medication Instructions Recorded Confirmed Type albuterol sulfate 90 mcg/actuation 2 puff inhalation QID PRN 03/19/23 Rx aerosol inhaler shortness of breath or wheezing #8.5 grams finasteride 5 mg tablet (Proscar) 5 mg PO QAM #30 tabs 03/19/23 Rx tamsulosin 0.4 mg capsule 0.4 mg PO QAM #30 caps 03/19/23 Rx Allergies Allergy/AdvReac Type Severity Reaction Status Date / Time No Known Allergies Allergy Verified 03/31/23 08:08 Exam Const: General: no acute distress Resp: Effort & Inspection: normal respiratory effort GI: Inspection: non-distended GI Palp: No abdominal tenderness and No Guarding due to palpation present (GI) Auscultation: normal bowel sounds Urinary Catheter: Urinary Catheter: urine with clots
--- NOTE | 2023-03-31 15:47 | WPDHPUPDATE1 ---
History and Physical Update Update Date/Time: 03/31/23 15:47 History and Physical has been reviewed, including an updated exam of the patient. There are NO changes in the patient's condition. Risks, benefits, and alternatives have been discussed and questions answered. Patient agrees to proceed with procedure.
--- NOTE | 2023-03-31 15:49 | WPDANESEPPF ---
Anes - Initial Pre Proc Eval Procedure: Operation Date: 03/31/23 16:00 Proposed Procedures p Cystoscopy, Evacuation Bladder Clots - Pieter Mayorga MD Date/Time: 03/31/23 15:49 Surgeon: Pieter Mayorga MD Pre Op Diagnosis: bladder clots Patient Data Age: 62 Gender: M Height: Weight: Allergies Allergy/AdvReac Type Severity Reaction Status Date / Time No Known Allergies Allergy Verified 03/31/23 08:08 Home Medications Medication Instructions Recorded Confirmed Type albuterol sulfate 90 mcg/actuation 2 puff inhalation QID PRN 03/19/23 Rx aerosol inhaler shortness of breath or wheezing #8.5 grams finasteride 5 mg tablet (Proscar) 5 mg PO QAM #30 tabs 03/19/23 Rx tamsulosin 0.4 mg capsule 0.4 mg PO QAM #30 caps 03/19/23 Rx Patient hx anesthesia problems: none Family hx anesthesia problems: none Results Review: All pre-operative results and documents have been reviewed as part of the pre-operative evaluation. [facility], LAT[facility] Past Medical History Medical History Benign prostate hyperplasia COPD with emphysema Skin cancer Tobacco dependence Surgical History Surgical History History of tonsillectomy Status post surgical removal of malignant neoplasm of skin Family History Family History Other Family history non-contributory Social History Social History Social History: Surrogate medical decision maker: Ari Giron, daughter. Code status: Full code. Smoking packs per day: 1.5 Smoking cigarettes per day: 30.0 Years smoked: 49 Smoking pack-years: 73.50 Smoking status: Current every day smoker Tobacco type: cigarettes Second hand tobacco smoke exposure: Yes Alcohol intake: never Substance use: never Substance use type: does not use Lack of Transportation: No Lack of Food: Never True Current Housing: I Have Housing Concerned About Future Housing: YES Difficulty Paying Gas/Electric Bills: YES Difficulty Paying for Meds: YES Currently Unemployed: No Education: High School Diploma/GED Difficulty w/ Childcare or Family Care: No Additional living arrangements comments: Lives in [place]. Additional occupation/education comments: Works at a local [employer]. Spiritual care concerns: No Anes - Eval Final PreProcedure Day of Procedure 03/31/23 15:49 Patient weight: obese Heart: regular rate and rhythm Lungs: decreased breath sounds Last oral intake: >/= 8 hours ASA classification: III Emergent: no Anesthetic plan: proceed Anesthesia type and monitoring: general LMA and standard monitoring Results Review: All pre-operative results and documents have been reviewed as part of the pre-operative evaluation. Informed Consent: The patient's anesthetic plan and its attendant risks and benefits were discussed with the patient/family/POA. Questions were solicited and answers provided to the satisfaction of the patient/family/POA.
[2023-03-31] MEDS: LACTATED RINGERS 1,000 ML 30 ML IV CONT (15:58)
[2023-03-31] MEDS: ceFAZolin 2 GM/D5W 50 ML 2 GM/50 ML BAG IVPB (16:23)
--- NOTE | 2023-03-31 17:10 | W.PM.PROC2 ---
Procedure Note - Detailed Date of Procedure 03/31/23 Pre-op Diagnosis Gross hematuria with clot retention Post-op Diagnosis Same Procedure Performed Cystoscopy, clot evacuation, cauterization prostate Surgeon Pieter Mayorga MD Anesthesia General Description of Procedure Patient is brought the op suite prepped draped in routine sterile fashion while in dorsal lithotomy position after the uneventful induction of a general LMA anesthetic. A 24 F resectoscope was placed in his bladder. This patient has a massive prostate with a 4-5 cm prostatic urethra. There was a massive clot in his bladder. It is evacuated with a Silvio syringe. The bladder then appears normal without foreign body or neoplasm otherwise. He has some oozing from the median lobe of his prostate which I cauterized with the rollerball and placed a 24F hematuria catheter Drains Yes Pathology None sent Condition Stable Disposition PACU
--- NOTE | 2023-03-31 18:32 | PM.IMHP ---
H&P: HPI History of Present Illness Date/Time: 03/31/23 18:32 Chief Complaint: Blood in catheter bag Narrative: This is a 62-year-old male patient who came to the emergency with complaints of laurie blood in the bag. The patient was also dripping blood or brown the Rubio catheter at the meatus. Is reported that the patient was passing large clots. Urology was notified and the patient was going to be admitted. The patient has CBI and the CBI was not flushing appropriately and and there was leakage around the Rubio catheter. Dr. naidu had attempted to take the patient to OR to evacuate the clots. Is reported that the patient left AMA with his gown on in the Rubio catheter in place. Is reported that the patient took a cab to [facility] to be seen for this problem. However he was told it could not be treated because the urologist. [facility] then called [facility] to admit the patient. This was discussed with the urologist if he agreed to consult of the hospitals with it but the patient. The patient was taken to [facility] and he was taken to OR. Patient had gross hematuria with clot retention. Dr. Mayorga took the patient to OR for cystoscopy, clot evacuation, and cauterization prostate. Please see operative report. The patient is being admitted to observation status on the date of service is 03/31/2023. Review of Systems Review of Systems: All systems reviewed & are unremarkable except as noted in HPI and below Constitutional: Constitutional: Reports as per HPI and Reports no additional constitutional complaints Eyes: Eyes: Reports as per HPI and Reports no additional eye complaints ENT: Reports system reviewed and no additional complaints, except as documented and Reports Normal hearing present Cardiovascular: Cardiovascular: Reports no additional cardiovascular complaints Respiratory: Respiratory: Reports no additional respiratory complaints and Reports no additional respiratory complaints Gastrointestinal: Gastrointestinal: Reports as per HPI and Reports no additional gastrointestinal complaints Musculoskeletal: Musculoskeletal: Reports no additional musculoskeletal complaints Integumentary/Breasts: Skin/Breast: Reports system reviewed and no additional complaints, except as docu and Reports as per HPI Neurologic: Reports system reviewed and no additional complaints, except as documented, Reports as per HPI and Reports Normal hearing present Psychiatric: Psychiatric: Reports no additional psychiatric complaints and Reports as per HPI Endocrine: Endocrine: Reports no additional endocrine complaints Hematologic/Lymphatic: Hematologic/Lymphatic: Reports no additional hematologic/lymphatic complaints Allergic/Immunologic: Allergic/Immunologic: Reports no additional allergic/immunologic complaints [facility] Past Medical History Medical History (Updated 04/01/23 @ 00:32 by Audrey Godfrey NP) Benign prostate hyperplasia Bipolar disorder COPD with emphysema Facial fracture Skin cancer Tobacco dependence Surgical History Surgical History (Updated 04/01/23 @ 00:25 by Audrey Godfrey NP) History of tonsillectomy Status post surgical removal of malignant neoplasm of skin From his face and now has a growth on his nose. Family History Family History Other Family history non-contributory Social History Social History (Updated 04/01/23 @ 00:28 by Audrey Godfrey NP) Social History: The patient is listed as being single and and works at the [employer]. Surrogate medical decision maker: Ari Giron, daughter. Code status: Full code. Smoking packs per day: 1.5 Smoking cigarettes per day: 30.0 Years smoked: 49 Smoking pack-years: 73.50 Smoking status: Current every day smoker Tobacco type: cigarettes Second hand tobacco smoke exposure: Yes Alcohol intake: never Substance use: never Substance use type: does not use
--- NOTE | 2023-03-31 18:55 | PC.NURSE ---
Pt arrived to the unit. Pt is wanting to ambulate. Pt was educated that he needed to be evaluated before being up and ambulatory. Pt reports pain and the only thing that will help is standing. Pt has CBI going. More CBI bags ordered from central supply. Will continue to monitor pt.
[2023-03-31 19:30] LABS: Hematocrit 23.9 % (42.0-52.0); Hemoglobin 7.6 g/dL (14.0-18.0)
[2023-04-01] MEDS: HYDROcodone/acetaminophen (*CRX) 5-325 MG TABLET 1 TAB PO ×2 (00:25→08:40)
[2023-04-01 01:09] LABS: Hematocrit 25.9 % (42.0-52.0); Hemoglobin 8.4 g/dL (14.0-18.0)
[2023-04-01 06:00] VITALS: BP 129/79; PULSE 71; RESP 16; TEMP 36.1; O2SAT 98
[2023-04-01 06:12] LABS: Basophils Absolute Auto 0.1 K/mm3 (0.0-0.1); Basophils Percent Auto 0.5 % (0.2-1.2); Eosinophils Absolute Auto 0.1 K/mm3 (0-0.3); Eosinophils Percent Auto 0.5 % (0-4.4); Hematocrit 27.8 % (42.0-52.0); Hemoglobin 8.8 g/dL (14.0-18.0); Immature Granulocyte Absolute 0.08 K/mm3 (0.00-0.031); Immature Granulocyte Percent A 0.8 % (0-0.5); Lymphocytes Absolute Auto 1.42 K/mm3 (0.9-3.2); Lymphocytes Percent Auto 14.4 % (18.3-44.2); Mean Corpuscular HGB Conc 31.7 g/dl (32-36); Mean Corpuscular Hemoglobin 30.4 pg (26-34); Mean Corpuscular Volume 96.2 fl (80-100); Mean Platelet Volume 9.1 fl (7.4-10.4); Monocytes Absolute Auto 0.8 K/mm3 (0.1-0.6); Monocytes Percent Auto 7.9 % (2.6-8.5); Neutrophils Absolute Auto 7.5 K/mm3 (1.3-6.7); Neutrophils Percent Auto 75.9 % (45.5-73.1); Platelet Count Result 364 k/mm3 (150-375); Red Blood Count 2.89 M/mm3 (4.6-6.20); Red Cell Distribution Width 14.5 % (11.5-14.5); White Blood Count 9.9 K/mm3 (4.5-10.0)
[2023-04-01 06:18] LABS: Lactic Acid Reflex 1.6 mmol/L (0.7-2.0)
[2023-04-01 06:20] LABS: Alanine Aminotransferase 41 U/L (6-50); Albumin Level 3.9 g/dL (3.5-5.1); Alkaline Phosphatase 100 U/L (38-126); Anion Gap 5 mmol/L (8-16); Aspartate Amino Transferase 25 U/L (17-59); Bilirubin,Total 0.4 mg/dL (0.2-1.3); Blood Urea Nitrogen 28 mg/dL (9-20); Calcium 9.3 mg/dL (8.4-10.2); Carbon Dioxide 31 mmol/L (22-30); Chloride 102 mmol/L (98-107); Estimated CRCL calculation 50 ml/min; Estimated Glomerular Filt Rate 44; Glucose 110 mg/dL (65-110); Magnesium 2.1 mg/dL (1.6-2.3); Potassium 4.3 mmol/L (3.4-5.0); Sodium 138 mmol/L (137-145)
--- NOTE | 2023-04-01 07:18 | WPDUROPN2 ---
Progress Note: A&P Assessment and Plan (1) Urinary retention: Code(s): R33.9 - Retention of urine, unspecified Status: Acute (2) Retention of urine: Code(s): R33.9 - Retention of urine, unspecified Status: Acute (3) Hematuria: Code(s): R31.9 - Hematuria, unspecified Status: Acute Assessment and Plan: Urine clear on slow CBI CBI stopped. Discharge with indwelling catheter later today OK with me. Very large prostate (calculate 160gm) - options limited if voiding trial fails. Subjective Subjective Date/Time Seen: 04/01/23 07:18 Interval history: Urine clear on slow CBI Review of Systems Cardiovascular: Cardiovascular: Denies chest pain, Denies lightheadedness, Denies palpitations and Denies dyspnea Respiratory: Respiratory: Denies dyspnea Gastrointestinal: Gastrointestinal: Denies diarrhea, Denies nausea and Denies vomiting Genitourinary: Genitourinary: Denies hematuria and Denies dysuria Endocrine: Endocrine: Denies palpitations Exam Const: General: no acute distress Resp: Effort & Inspection: normal respiratory effort GI: Inspection: non-distended GI Palp: No abdominal tenderness and No Guarding due to palpation present (GI) Auscultation: normal bowel sounds Urinary Catheter: Urinary Catheter: patent and draining and urine clear Objective Data Vital Signs Vital Signs: Vital Signs - 24 hr 03/31/23 15:52 03/31/23 16:51 03/31/23 17:00 Temperature 98.9 F 97.0 F L Pulse Rate 109 H 108 H 109 H Respiratory Rate 14 15 16 Blood Pressure 143/80 H 134/80 127/65 Pulse Oximetry 99 100 100 Oxygen Delivery Room Air Nasal Cannula Nasal Cannula Oxygen Flow Rate 6 2 03/31/23 17:15 03/31/23 17:30 03/31/23 17:40 Temperature Pulse Rate 108 H 109 H 106 H Respiratory Rate 20 18 16 Blood Pressure 124/62 148/78 H 148/76 H Pulse Oximetry 100 99 98 Oxygen Delivery Room Air Room Air Room Air Oxygen Flow Rate 03/31/23 18:49 03/31/23 21:20 03/31/23 20:00 Temperature 97.2 F L Pulse Rate 110 H 110 H Respiratory Rate 14 14 Blood Pressure 136/83 Pulse Oximetry 95 95 Oxygen Delivery Room Air Room Air Oxygen Flow Rate 04/01/23 06:00 Temperature 96.9 F L Pulse Rate 71 Respiratory Rate 16 Blood Pressure 129/79 Pulse Oximetry 98 Oxygen Delivery Oxygen Flow Rate Intake/Output Intake/Output: Intake & Output 03/29/23 03/30/23 03/31/23 04/01/23 23:59 23:59 23:59 23:59 Intake Total 2049 Output Total [id number] Balance -40084 -2695 Meds/Results Medications: Active Medications Generic Name Dose Route Start Last Admin Trade Name Freq PRN Reason Stop Dose Admin Hydrocodone Bitart/Acetaminophen 1 tab 03/31/23 17:08 04/01/23 00:25 Hydrocodone/Acetaminophen (*Crx) 5-325 Mg Tablet PO 1 tab Q4H PRN Administration Pain Rated 4-6 Finasteride 5 mg 04/01/23 09:00 Finasteride 5 [facility] Tamsulosin HCl 0.4 mg 04/01/23 09:00 Tamsulosin Hcl 0.4 Mg Capsule [facility] Labs Labs: Laboratory Results - last 24 hr 03/31/23 04/01/23 04/01/23 19:14 01:03 05:57 WBC 9.9 RBC 2.89 L Hgb 7.6 L 8.4 L 8.8 L Hct 23.9 L 25.9 L 27.8 L MCV 96.2 MCH 30.4 MCHC 31.7 L RDW 14.5 Plt Count 364 MPV 9.1 Immature Gran % (Auto) 0.8 H Neut % (Auto) 75.9 H Lymph % (Auto) 14.4 L Ogle % (Auto) 7.9 Eos % (Auto) 0.5 Baso % (Auto) 0.5 Lymph # (Auto) 1.42 Ogle # (Auto) 0.8 H Eos # (Auto) 0.1 Baso # (Auto) 0.1 Abs Immat Gran (auto) 0.08 H Absolute Neuts (auto) 7.5 H Absolute Nucleated RBC 0.0 Nucleated RBC % 0.0 Sodium 138 Potassium 4.3 Chloride 102 Carbon Dioxide 31 H Anion Gap 5 L BUN 28 H Creatinine 1.60 H Estim Creat Clear Calc 50 Estimated GFR 44 L Glucose 110 Lactic Acid 1.6 Calcium 9.3 Magnesium 2.1 Total Bilirubin 0.4 AST 25 ALT 41 Alkaline Phosph
[2023-04-01 08:00] VITALS: PULSE 71; RESP 16; O2SAT 98
[2023-04-01] MEDS: TAMSULOSIN HCL 0.4 MG CAPSULE PO (08:41)
[2023-04-01] MEDS: FINASTERIDE 5 MG TABLET PO (08:41)
--- NOTE | 2023-04-01 11:55 | PC.NURSE ---
Pt refused lab draw at 11:30.
--- NOTE | 2023-04-01 12:26 | PM.DS ---
DS: Admitting Diagnosis Discharge Date April 01, 2023 Admitting Diagnosis Bladder clots DS: Discharge Diagnosis Discharge Diagnosis (1) Hematuria: Code(s): R31.9 - Hematuria, unspecified Status: Acute Assessment and Plan: Dr. martinez has seen the patient and has taken him to the OR. The patient had a cystoscopy, clot evacuation, and and cauterization of the prostate. Please see operative note. The patient currently has a CBI. Check H&H every 6 hours. The patient has a history of BPH. (2) Benign prostate hyperplasia: Code(s): N40.0 - Benign prostatic hyperplasia without lower urinary tract symptoms Status: Acute Assessment and Plan: Continue with Proscar and tamsulosin. (3) COPD with emphysema: Code(s): J43.9 - Emphysema, unspecified Status: Acute Assessment and Plan: Continue with abuse (4) Bladder outlet obstruction: Code(s): N32.0 - Bladder-neck obstruction Status: Acute Assessment and Plan: See urology report. (5) Bipolar disorder: Code(s): F31.9 - Bipolar disorder, unspecified Status: Acute Assessment and Plan: The patient is very irritable and is not on any medication. The patient may benefit from further evaluation of per psychiatric professional and treatment with medication. (6) Skin cancer: Code(s): C44.90 - Unspecified malignant neoplasm of skin, unspecified Status: Acute Assessment and Plan: The patient has a scar to the left side of his face. In he appears to have a small area to the outer portion of the left nare that requires attention from a psychiatric social worker. The patient stated that he had a procedure performed that sounds like a Mohs procedure. The patient stated that the psychiatric social worker took several samples and continued to say that he has cancer. The patient attempted to removed the rolled off of his nose. I suggested that the patient follow-up with the psychiatric social worker for further biopsies of the growth on his nose. The patient refuses to go back to the psychiatric social worker. DS: Summary Hospital Course Hospital Course: Patient is 62-year-old gentleman came hematuria and blood clots in his bladder. Urology was consulted he was taken to the OR and had some cauterization performed he also had CBI which now his bleeding has resolved. He can be discharged. He will be discharged with a catheter and follow-up with Urology Time Spent with Patient Time attestation: Total time spent providing and/or coordinating discharge services: Exam Const: General: cooperative, healthy appearing, comfortable, no acute distress, well developed, awake, Physically active, average body habitus and well nourished Nutritional Appearance: average body habitus and well nourished Orientation/consciousness: oriented to person, oriented to place, oriented to time and patient oriented x3 Limitations: no limitations HENMT: Head: normal to inspection, No palpable skull fracture present, normocephalic and atraumatic Ears: hearing grossly normal bilaterally and external ears normal Face/Nose/Sinus: Normal external nose present and Normal nares present Other: The patient has a growth to the left upper outer nares that appears to be skin cancer. Eyes: General: appearance normal, both eyes and all related structures Alignment and Position: alignment normal Periorbital: periorbital findings normal Sclera: sclerae normal Pupils: Equal, round and reactive pupils present EOM: EOMs intact bilaterally Neck: Neck: normal visual inspection, full ROM, no lymphadenopathy, trachea midline and supple Chest: Chest palpation & inspection: normal inspection of the chest Resp: Effort & Inspection: normal respiratory effort Auscultation: clear to auscultation bilaterally Cardio: Palpation: normal PMI Rate: regular rate Rhythm: regular rhythm Heart sounds: S1 normal heart sound present and S2 normal heart sound present Peripheral pulses
[2023-04-01 12:43] LABS: SARS-CoV-2 RNA PCR Negative (Negative)
[2023-04-01 14:00] VITALS: BP 142/81; PULSE 110; RESP 14; TEMP 36.3; O2SAT 96
== END 2023-04-01 16:50 ==
LOC: ANHSURGERY 16:50 → ANH3MEDSUR 17:51
PROVIDERS: Nurse Practitioner; Urology; Admitting Provider Chiropractor; PCP Hospitalist; Visit Provider Chiropractor
PROC: 0TCB8ZZ Extirpation of Matter from Bladder, Via Natural or Artificial Opening Endoscopic (ICD-10-PCS; CPT 52001; principal; 2023-03-31 16:00)
DX: R33.9 Retention of urine, unspecified (principal); R31.0 Gross hematuria; N40.0 Benign prostatic hyperplasia without lower urinary tract symptoms; N32.0 Bladder-neck obstruction; J43.9 Emphysema, unspecified; C44.90 Unspecified malignant neoplasm of skin, unspecified; Z20.822 Contact with and (suspected) exposure to COVID-19; R60.0 Localized edema; F31.9 Bipolar disorder, unspecified; Z96.0 Presence of urogenital implants; E66.9 Obesity, unspecified; Z68.35 Body mass index [BMI] 35.0-35.9, adult; F17.210 Nicotine dependence, cigarettes, uncomplicated; Z79.51 Long term (current) use of inhaled steroids; Z79.899 Other long term (current) drug therapy
CPT/HCPCS: 52001; 53899; 36415; 80053; 83605; 83735; 84443; 85014; 85018; 85025; 87635; 93970; A9270; C1758; G0378; G0379; J0690; J2250; J2704; J3010; J7120

== ENCOUNTER 2023-04-03 11:09 | Emergency (ER) | payer MEDICAID, SELFPAY ==
[2023-04-03 11:13] VITALS: BP 153/81; PULSE 114; RESP 19; TEMP 36.7; O2SAT 97
--- NOTE | 2023-04-03 11:45 | ED.GENADULT ---
HPI - General Adult General Chief complaint: Urogenital-Male Stated complaint: BLOOD IN URINE Time Seen by Provider: 04/03/23 11:12 History of Present Illness HPI narrative: Patient is a 62-year-old male who presents ER with Rubio catheter issues. Patient has a three-way Rubio catheter placed due to urinary obstruction from BPH and hematuria. Patient had a procedure by Dr. Muniz to evacuate the clot. He had been discharged home. He been doing well with normal urine output. This morning woke up and there was a clot in the tube and he started leaking blood from around the tube at his urethral meatus. On arrival the clot dislodged and drained into the bag. His Rubio bag does have some bright red blood next with the urine without large clot. The Rubio tube has only a hint of blood in the urine. Related Data Allergies Allergy/AdvReac Type Severity Reaction Status Date / Time No Known Allergies Allergy Verified 04/03/23 11:16 Review of Systems Review of Systems: All systems reviewed & are unremarkable except as noted in HPI and below Constitutional: Constitutional: Denies chills and Denies fever(s) Gastrointestinal: Gastrointestinal: Denies abdominal pain, Denies nausea and Denies vomiting Genitourinary: Genitourinary: Reports hematuria, Denies dysuria and Denies urinary frequency [facility] Past Medical History Medical History (Updated 04/03/23 @ 12:58 by Rodriguez Jacobo MD) Benign prostate hyperplasia Bipolar disorder COPD with emphysema Facial fracture Skin cancer Tobacco dependence Surgical History Surgical History (Updated 04/01/23 @ 00:25 by Audrey Godfrey NP) History of tonsillectomy Status post surgical removal of malignant neoplasm of skin From his face and now has a growth on his nose. Family History Family History Other Family history non-contributory Social History Social History (Updated 04/01/23 @ 00:28 by Audrey Godfrey NP) Social History: The patient is listed as being single and and works at the [employer]. Surrogate medical decision maker: Ari Giron, daughter. Code status: Full code. Smoking packs per day: 1.5 Smoking cigarettes per day: 30.0 Years smoked: 49 Smoking pack-years: 73.50 Smoking status: Current every day smoker Tobacco type: cigarettes Second hand tobacco smoke exposure: Yes Alcohol intake: never Substance use: never Substance use type: does not use Lack of Transportation: No Lack of Food: Never True Current Housing: I Have Housing Concerned About Future Housing: YES Difficulty Paying Gas/Electric Bills: YES Difficulty Paying for Meds: YES Currently Unemployed: No Education: High School Diploma/GED Difficulty w/ Childcare or Family Care: No Additional living arrangements comments: Lives in [place]. Additional occupation/education comments: Works at a [employer]. Spiritual care concerns: No Exam Narrative: GENERAL: Well-appearing, well-nourished, and in no acute distress. HEAD: Normocephalic, atraumatic. ENT: Mucous membranes moist. Irregular lesion left nasal bridge with scabbing. This is adjacent to a previous skin flap. ABDOMEN: Soft, nontender, nondistended. : Dried blood around the penis and catheter. Three-way Rubio catheter extending from urethral meatus that contains urine with scant tinge of blood. EXTREMITIES: Normal range of motion. No edema. NEURO: Alert and oriented x3. PSYCH: Normal mood and affect. Course Course Emergency Course: Rubio catheter irrigated and no additional clot. It is draining clear at this time. He will be discharged back to his facility. I have discussed patient's lesion to left side of his nose. I discussed with him that I feel like this is compliance representative of malignancy the patient reports that he does not believe so. Chart review shows that other physicians have addressed this as well and that the patient
--- NOTE | 2023-04-03 12:11 | PC.NURSE ---
Irrigated gutiérrez per MD mcmullen. slight pink tinge noted at start of irrigation but turned to clear. no discomfort during procedure per patient.
--- NOTE | 2023-04-03 13:09 | PC.NURSE ---
report given to [facility], all questions answered at time of report.
[2023-04-03 16:39] VITALS: BP 137/92; PULSE 82; O2SAT 99
== END 2023-04-03 16:40 | disposition home or self-care (01) ==
PROVIDERS: Emergency Provider Emergency Medicine; PCP Hospitalist
DX: R31.9 Hematuria, unspecified (principal); L98.9 Disorder of the skin and subcutaneous tissue, unspecified; J43.9 Emphysema, unspecified; N40.0 Benign prostatic hyperplasia without lower urinary tract symptoms; F17.210 Nicotine dependence, cigarettes, uncomplicated; Z85.828 Personal history of other malignant neoplasm of skin
CPT/HCPCS: 51700; 99283

== ENCOUNTER 2023-06-10 08:39 | Emergency (ER) | payer OTHER, SELFPAY ==
[2023-06-10 08:41] VITALS: BP 165/110; PULSE 108; RESP 24; TEMP 36.6; O2SAT 97
--- NOTE | 2023-06-10 09:05 | ED.GENADULT ---
HPI - General Adult General Chief complaint: Urogenital-Male Stated complaint: blood in urine History of Present Illness HPI narrative: 63-year-old male presented to ED for evaluation of urinary retention and hematuria. Patient reports he did have a Rubio catheter that had been placed at his care facility and was removed. Patient states since having the Rubio catheter removed he has had increased urinary discharge and some bleeding. Patient also reports associated constipation. Related Data Allergies Allergy/AdvReac Type Severity Reaction Status Date / Time No Known Allergies Allergy Verified 04/03/23 11:16 Review of Systems Review of Systems: All systems reviewed & are unremarkable except as noted in HPI and below PMFSH Past Medical History Medical History (Updated 06/10/23 @ 10:43 by Curry Daley MD) Benign prostate hyperplasia Bipolar disorder COPD with emphysema Facial fracture Skin cancer Tobacco dependence Surgical History Surgical History (Updated 04/01/23 @ 00:25 by Audrey Godfrey NP) History of tonsillectomy Status post surgical removal of malignant neoplasm of skin From his face and now has a growth on his nose. Family History Family History Other Family history non-contributory Social History Social History (Updated 04/01/23 @ 00:28 by Audrey Godfrey NP) Social History: The patient is listed as being single and and works at the [employer] station. Surrogate medical decision maker: Ari Giron, daughter. Code status: Full code. Smoking packs per day: 1.5 Smoking cigarettes per day: 30.0 Years smoked: 49 Smoking pack-years: 73.50 Smoking status: Current every day smoker Tobacco type: cigarettes Second hand tobacco smoke exposure: Yes Alcohol intake: never Substance use: never Substance use type: does not use Lack of Transportation: No Lack of Food: Never True Current Housing: I Have Housing Concerned About Future Housing: YES Difficulty Paying Gas/Electric Bills: YES Difficulty Paying for Meds: YES Currently Unemployed: No Education: High School Diploma/GED Difficulty w/ Childcare or Family Care: No Additional living arrangements comments: Lives in [place]. Additional occupation/education comments: Works at a local [employer]. Spiritual care concerns: No Exam Narrative: APPEARANCE: Well appearing, no pain, no distress, well-nourished. HEAD: normocephalic, atraumatic. EYES: PERRLA/EOMI, conjunctivae clear. NOSE: Normal no drainage EARS:TMS clear with good light reflex. THROAT: Pharynx clear, no exudate. NECK: Supple. No adenopathy, no masses. RESPIRATORY: Airway patent, respirations nonlabored. Clear to auscultation bilaterally, no rales, rhonchi, wheezing. CARDIOVASCULAR: Regular rate and rhythm without murmurs rubs or gallops. ABDOMINAL: Soft, nontender, nondistended, normal bowel sounds MUSCULOSKELETAL: Moves all extremities. Strength/ROM intact, No edema, No calf tenderness. NEURO: Alert. Cranial nerves II through XII intact. Grossly intact SKIN: Irritation of his penile Course Course Emergency Course: 63-year-old male presented the ED for evaluation for urinary retention. Patient was afebrile but does have a leukocytosis of 15.4. Patient had significant urinary retention and had a sodium of 130 and a creatinine of 4.7. Patient was started on IV antibiotics for the urinary tract infection. Patient was offered admission but patient declines and prefers to follow-up as outpatient. Patient was aware of the risks of permanent kidney damage due to signing out AMA. Vital Signs Vital signs: Vital Signs Temperature 97.8 F 06/10/23 08:41 Pulse Rate 108 H 06/10/23 08:41 Respiratory Rate 24 H 06/10/23 08:41 Blood Pressure 165/110 H 06/10/23 08:41 Pulse Oximetry 97 06/10/23 08:41 Temperature 97.8 F 06/10/23 08:41 Pulse Rate 108 H 06/10/23 08:41 Res
--- NOTE | 2023-06-10 09:19 | PC.NURSE ---
Pt stated You aren't putting the catheter in. Pt educated on importance of procedure. Pt states the doctor will put it in and I need pain meds . EDP notified of pt request.
[2023-06-10 09:22] LABS: Basophils Absolute Auto 0.1 K/mm3 (0.0-0.1); Basophils Percent Auto 0.5 % (0.2-1.2); Eosinophils Percent Auto 0.2 % (0-4.4); Hematocrit 41.2 % (42.0-52.0); Hemoglobin 13.9 g/dL (14.0-18.0); Immature Granulocyte Absolute 0.28 K/mm3 (0.00-0.031); Immature Granulocyte Percent A 1.8 % (0-0.5); Lymphocytes Absolute Auto 0.73 K/mm3 (0.9-3.2); Lymphocytes Percent Auto 4.7 % (18.3-44.2); Mean Corpuscular HGB Conc 33.7 g/dl (32-36); Mean Corpuscular Hemoglobin 27.7 pg (26-34); Mean Corpuscular Volume 82.2 fl (80-100); Mean Platelet Volume 10.9 fl (7.4-10.4); Monocytes Absolute Auto 1.1 K/mm3 (0.1-0.6); Monocytes Percent Auto 7.3 % (2.6-8.5); Neutrophils Absolute Auto 13.2 K/mm3 (1.3-6.7); Neutrophils Percent Auto 85.5 % (45.5-73.1); Platelet Count Result 158 k/mm3 (150-375); Red Blood Count 5.01 M/mm3 (4.6-6.20); Red Cell Distribution Width 14.2 % (11.5-14.5); White Blood Count 15.4 K/mm3 (4.5-10.0)
[2023-06-10] MEDS: LIDOCAINE HCL 2% GEL UROJET 10 ML PKG MUCOUS MEM (09:22)
[2023-06-10 09:28] LABS: Alanine Aminotransferase 86 U/L (6-50); Albumin Level 3.9 g/dL (3.5-5.1); Alkaline Phosphatase 219 U/L (38-126); Anion Gap 15 mmol/L (8-16); Aspartate Amino Transferase 46 U/L (17-59); Bilirubin,Total 1.4 mg/dL (0.2-1.3); Blood Urea Nitrogen 105 mg/dL (9-20); Calcium 9.1 mg/dL (8.4-10.2); Carbon Dioxide 27 mmol/L (22-30); Chloride 88 mmol/L (98-107); Estimated CRCL calculation 17 ml/min; Estimated Glomerular Filt Rate 13; Glucose 141 mg/dL (65-110); Potassium 3.2 mmol/L (3.4-5.0); Sodium 130 mmol/L (137-145)
[2023-06-10 09:34] LABS: INR 1.1; Partial Thromboplastin Time 27.9 SECONDS (22.3-36.8); Prothrombin Time 14.2 Seconds (11.1-14.7)
[2023-06-10 09:46] LABS: Appearance Urine Turbid (Clear); Bilirubin Urine Negative (Negative); Blood Urine 3+ (Negative); Color Urine Yellow (Yellow); Glucose Urine UA Negative (Negative); Ketones Urine Negative (Negative); Leukocyte Esterase Ur Negative LEU/UL (Negative); Nitrate Urine Negative (Negative); Protein Urine 3+ mg/dL (Negative); pH Urine >=9.0 (5.0-9.0)
[2023-06-10 10:09] LABS: Add Urine Microscopic? YES
[2023-06-10 10:10] LABS: Bacteria Urine 1+ /hpf; Mucus Urine Heavy /lpf; RBC Urine 0-2 /hpf (0-2); WBC Clumps Urine Present /hpf; WBC Urine >100 /hpf (0-3)
== END 2023-06-10 11:05 | disposition left against medical advice (07) ==
PROVIDERS: Emergency Provider Emergency Medicine; PCP Hospitalist
DX: N39.0 Urinary tract infection, site not specified (principal); N17.9 Acute kidney failure, unspecified; N40.1 Benign prostatic hyperplasia with lower urinary tract symptoms; N13.8 Other obstructive and reflux uropathy
CPT/HCPCS: 36415; 51702; 80053; 81001; 85025; 85610; 85730; 96374; 99284; J0696

== ENCOUNTER 2023-06-10 23:47 | Inpatient (IN) | payer OTHER, SELFPAY ==
--- NOTE | ~2023-06-10 | CT_ITS ---
EXAMINATION: CT abdomen pelvis wo con DATE: 06/11/2023 03:34 INDICATION: Hematuria TECHNIQUE: Computed tomography (CT) of the abdomen and pelvis was performed without intravenous contr ast. The dose-length product was 1361.06 mGy-cm. Automated exposure control and iterative reconstruction technique were employed. COMPARISON: CT dated 03/14/2023. FINDINGS: Heart size normal. There is moderate bilateral hydronephrosis with bladder wall thickening which may be due to outlet obstruction from enlarged prostate gland are cystitis. Rubio catheter pres ent in the bladder. There is heterogeneous soft tissue containing the bladder, possibly hematoma, alt neto neoplasm not excluded. The liver, spleen, pancreas, adrenal glands are unremarkable. There is a 2 mm nonobstructing left rosmery al stone. No obstructing ureteral stones. No acute osseous abnormality. Moderate lumbar spondylosis. The liver, spleen, pancreas, adrenal glands are unremarkable. Gallbladder is present. Nonobstructive bowel gas pattern. No free air or free fluid. 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 IMPRESSION: 1. Moderate bilateral hydronephrosis to the level of the bladder. Bladder wall is diffusely thickened which may be due to outlet obstruction from enlarged prostate gland or cystitis. Complex soft tissue containing the bladder may represent blood clot or less likely tumor. 2: Nonobstructing left nephrolithiasis. Reviewed, dictated and finalized at location A. IMPRESSION: 1. Moderate bilateral hydronephrosis to the level of the bladder. Bladder wall is diffusely thickened which may be due to outlet obstruction from enlarged pro state gland or cystitis. Complex soft tissue containing the bladder may represe nt blood clot or less likely tumor. 2: Nonobstructing left nephrolithiasis.
[2023-06-10 23:51] VITALS: BP 152/88; PULSE 102; RESP 18; TEMP 36.1; O2SAT 99
[2023-06-11] VITALS (13 sets, daily range): BP systolic 110–145; BP diastolic 75–90; PULSE 76–97; RESP 11–20; TEMP 36.2–37.2; O2SAT 92–100; BMI 33.7
[2023-06-11] MEDS: MORPHINE SULFATE (*CRX) 4 MG/ML INJ IV PUSH ×2 (02:15→05:19)
[2023-06-11 02:24] LABS: Basophils Absolute Auto 0.1 K/mm3 (0.0-0.1); Basophils Percent Auto 0.5 % (0.2-1.2); Eosinophils Percent Auto 0.1 % (0-4.4); Hematocrit 38.1 % (42.0-52.0); Hemoglobin 12.7 g/dL (14.0-18.0); Immature Granulocyte Absolute 0.39 K/mm3 (0.00-0.031); Immature Granulocyte Percent A 2.3 % (0-0.5); Lymphocytes Absolute Auto 1.03 K/mm3 (0.9-3.2); Lymphocytes Percent Auto 6.1 % (18.3-44.2); Mean Corpuscular HGB Conc 33.3 g/dl (32-36); Mean Corpuscular Hemoglobin 27.2 pg (26-34); Mean Corpuscular Volume 81.6 fl (80-100); Mean Platelet Volume 10.9 fl (7.4-10.4); Monocytes Absolute Auto 1.1 K/mm3 (0.1-0.6); Monocytes Percent Auto 6.4 % (2.6-8.5); Neutrophils Absolute Auto 14.4 K/mm3 (1.3-6.7); Neutrophils Percent Auto 84.6 % (45.5-73.1); Platelet Count Result 165 k/mm3 (150-375); Red Blood Count 4.67 M/mm3 (4.6-6.20); Red Cell Distribution Width 14.6 % (11.5-14.5)
[2023-06-11 02:42] LABS: INR 1.2; Prothrombin Time 15.8 Seconds (11.1-14.7)
[2023-06-11 02:43] LABS: Partial Thromboplastin Time 28.7 SECONDS (22.3-36.8)
[2023-06-11 02:57] LABS: Alanine Aminotransferase 62 U/L (6-50); Albumin Level 3.7 g/dL (3.5-5.1); Alkaline Phosphatase 207 U/L (38-126); Anion Gap 16 mmol/L (8-16); Aspartate Amino Transferase 35 U/L (17-59); Bilirubin,Total 1.1 mg/dL (0.2-1.3); Calcium 8.7 mg/dL (8.4-10.2); Carbon Dioxide 23 mmol/L (22-30); Chloride 88 mmol/L (98-107); Estimated CRCL calculation 13 ml/min; Estimated Glomerular Filt Rate 9; Glucose 126 mg/dL (65-110); Potassium 3.2 mmol/L (3.4-5.0); Sodium 127 mmol/L (137-145)
[2023-06-11 03:02] LABS: Blood Urea Nitrogen 123 mg/dL (9-20)
[2023-06-11 04:11] LABS: Troponin I < 0.012 ng/mL (0.000-0.034)
--- NOTE | 2023-06-11 04:20 | ED.MALEGU ---
HPI - Male Genitourinary General Chief complaint: Urogenital-Male Stated complaint: blood in cath Time Seen by Provider: 06/11/23 01:31 Source: patient Limitations: no limitations History of Present Illness HPI Narrative: Patient is a 63-year-old male present to the emergency department for hematuria and no urine output that is not bloody since 1 PM. Patient notes he has had a Rubio catheter in place now for approximately the past 2 months and was here earlier today and had his Rubio catheter replaced and then ended up leaving AGAINST MEDICAL ADVICE. Patient was that he follows with a urologist and has an appointment on the . Patient denies any pain. Patient notes he is concerned because its only blood coming out of the catheter right now. Patient denies nausea, vomiting, diarrhea, constipation, recent injuries, use of anticoagulation, chest pain, shortness of breath, lightheadedness, palpitations, numbness, weakness, back pain. Patient states that Rubio catheter was originally placed for an enlarged prostate and has had cystoscopy in the past in addition to washout of his bladder. Patient denies any weight loss. Related Data Home Medications Medication Instructions Recorded Confirmed ergocalciferol (vitamin D2) 1,250 1,250 mcg PO WEEKLY 06/11/23 06/11/23 mcg (50,000 unit) capsule furosemide 40 mg tablet 60 mg PO DAILY 06/11/23 06/11/23 potassium chloride 20 mEq 20 meq PO DAILY 06/11/23 06/11/23 tablet,extended release(part/cryst) Allergies Allergy/AdvReac Type Severity Reaction Status Date / Time No Known Allergies Allergy Verified 06/11/23 01:22 Review of Systems Review of Systems: A 10 system review of systems was completed on the patient and is negative except for what is stated in the HPI. Nursing and ancillary documentation was reviewed. [facility] Past Medical History Medical History Benign prostate hyperplasia Bipolar disorder COPD with emphysema Facial fracture Skin cancer Tobacco abuse counseling Tobacco dependence Surgical History Surgical History History of tonsillectomy Status post surgical removal of malignant neoplasm of skin From his face and now has a growth on his nose. Family History Family History Other Family history non-contributory Social History Social History Social History: The patient is listed as being single and and works at the [employer] station. Surrogate medical decision maker: Ari Giron, daughter. Code status: Full code. Smoking packs per day: 1.5 Smoking cigarettes per day: 30.0 Years smoked: 49 Smoking pack-years: 73.50 Smoking status: Current every day smoker Tobacco type: cigarettes Second hand tobacco smoke exposure: Yes Alcohol intake: never Substance use: never Substance use type: does not use Lack of Transportation: No Lack of Food: Never True Current Housing: I Have Housing Concerned About Future Housing: No Difficulty Paying Gas/Electric Bills: No Difficulty Paying for Meds: No Currently Unemployed: No Education: High School Diploma/GED Difficulty w/ Childcare or Family Care: No Additional living arrangements comments: Lives in [place]. Additional occupation/education comments: Works at a local [employer]. Spiritual care concerns: No Comments At time of signature, I have reviewed and agree with nursing past medical, surgical, social and family history unless otherwise noted. Please see the nursing chart for further information. There is no relevant family history pertinent to the presenting complaint. Exam Const: General: no acute distress and alert; No ill appearing Nutritional Appearance: well nourished and obese HENMT: Mouth: Yes moist mucous membranes Throat: posterior oroph
[2023-06-11] MEDS: LACTATED RINGERS 1,000 ML 999 ML IV CONT (05:32)
[2023-06-11] MEDS: LIDOCAINE HCL 2% GEL UROJET 10 ML PKG (05:33)
--- NOTE | 2023-06-11 06:11 | PM.IMHP ---
H&P: HPI History of Present Illness Date/Time: 06/11/23 06:11 Chief Complaint: Patient presented to the ER again with hematuria Narrative: 63 years old noncompliant patient is complaining of bleeding in the urine since yesterday, came to the ER yesterday morning for evaluation of hematuria. He was worked up in the ER, Rubio catheter placed and he was asked to stay but he refused and left against medical advice. He came back again with the same complaint but worsening in bleeding in the urine. CBI was inserted which needs frequent irrigation because of blood clots and blockages. Urology has been consulted who advised to keep patient NPO for OR in a.m. He has a history of the severe BPH and has had episodes of similar blockages in the past. Patient's creatinine has jumped to 6.3 as compared to 4.7 yesterday with a baseline of 1.6. He will be admitted to the floor after going through OR for postop care and close monitoring. Review of Systems Review of Systems: he denies any chest pain palpitations fever rigor chills nausea vomiting dizziness loss of consciousness All systems reviewed & are unremarkable except as noted in HPI and below PMFSH Past Medical History Medical History (Updated 06/11/23 @ 06:31 by Sam Brantley MD) Benign prostate hyperplasia Bipolar disorder COPD with emphysema Facial fracture Skin cancer Tobacco abuse counseling Tobacco dependence Surgical History Surgical History History of tonsillectomy Status post surgical removal of malignant neoplasm of skin From his face and now has a growth on his nose. Family History Family History Other Family history non-contributory Social History Social History Social History: The patient is listed as being single and and works at the [employer]. Surrogate medical decision maker: Ari Giron, daughter. Code status: Full code. Smoking packs per day: 1.5 Smoking cigarettes per day: 30.0 Years smoked: 49 Smoking pack-years: 73.50 Smoking status: Current every day smoker Tobacco type: cigarettes Second hand tobacco smoke exposure: Yes Alcohol intake: never Substance use: never Substance use type: does not use Lack of Transportation: No Lack of Food: Never True Current Housing: I Have Housing Concerned About Future Housing: No Difficulty Paying Gas/Electric Bills: No Difficulty Paying for Meds: No Currently Unemployed: No Education: High School Diploma/GED Difficulty w/ Childcare or Family Care: No Additional living arrangements comments: Lives in [place]. Additional occupation/education comments: Works at a local [employer]. Spiritual care concerns: No Meds Home Medications and Allergies Home Medications Medication Instructions Recorded Confirmed Type albuterol sulfate 90 mcg/actuation 2 puff inhalation QID PRN 03/19/23 Rx aerosol inhaler shortness of breath or wheezing #8.5 grams finasteride 5 mg tablet (Proscar) 5 mg PO QAM #30 tabs 03/19/23 Rx tamsulosin 0.4 mg capsule 0.4 mg PO QAM #30 caps 03/19/23 Rx cephalexin 500 mg capsule 500 mg PO Q8H 10 days #30 caps 06/10/23 Rx Allergies Allergy/AdvReac Type Severity Reaction Status Date / Time No Known Allergies Allergy Verified 06/11/23 01:22 Vital Signs Vital Signs - 24 hr 06/10/23 23:51 Temperature 36.1 C L Pulse Rate 102 H Respiratory Rate 18 Blood Pressure 152/88 H Pulse Oximetry 99 Oxygen Delivery Room Air Exam Narrative: PHYSICAL EXAMINATION: Vital signs: Please see the chart General physical exam: patient feels tired and fatigued, he is concerned about bleeding in urine Head/eyes: Atraumatic, EOMI, PERRLA ENT: Moist mucous membranes, nasal passages clear Neck: Supple, full range of motion, trachea midline CVS: S1 + S2, regular rate and rhythm, no m
[2023-06-11 06:15] LABS: CRP 34.3 mg/dL (<1.0)
--- NOTE | 2023-06-11 06:25 | ADMGEN ---
This patient, Andrey Giron, was admitted to Medical Room 242-. Patient/family oriented to hospital policies and general routines including ID bracelet, bed and alarms, visiting hours, pain management, procedures, bathroom and other care routines, personal items, smoking policy, room service/diet, and visiting hours. Information on how to activate the Rapid Response Team has been discussed. Patient/Family are encouraged to report perceived risks to care and to ask questions if they do not understand what they are told or what they should do.
--- NOTE | 2023-06-11 07:21 | WPDANESEPP ---
Anes - Eval Pre Procedure Procedure: Operation Date: 06/11/23 07:30 Proposed Procedures p Cystoscopy, Evacuation Bladder Clots - Magdy Pinto MD Date/Time: 06/11/23 07:21 Surgeon: Millie Preop Diagnosis: Hematuria, Bladder Outlet Obstruction Pre Op Diagnosis: BRYAN Patient Data Age: 63 Gender: M Height: 1.73 m Weight: 100.5 kg Last Vital Signs Temp 97.6 F 06/11/23 06:32 Pulse 97 06/11/23 06:32 Resp 14 06/11/23 06:32 BP 144/75 H 06/11/23 06:32 Pulse Ox 92 06/11/23 06:32 O2 Del Method Room Air 06/11/23 06:34 Allergies Allergy/AdvReac Type Severity Reaction Status Date / Time No Known Allergies Allergy Verified 06/11/23 01:22 Home Medications Medication Instructions Recorded Confirmed Type albuterol sulfate 90 mcg/actuation 2 puff inhalation QID PRN 03/19/23 06/11/23 Rx aerosol inhaler shortness of breath or wheezing #8.5 grams finasteride 5 mg tablet (Proscar) 5 mg PO QAM #30 tabs 03/19/23 06/11/23 Rx tamsulosin 0.4 mg capsule 0.4 mg PO QAM #30 caps 03/19/23 06/11/23 Rx cephalexin 500 mg capsule 500 mg PO Q8H 10 days #30 caps 06/10/23 06/11/23 Rx ergocalciferol (vitamin D2) 1,250 1,250 mcg PO WEEKLY 06/11/23 06/11/23 History mcg (50,000 unit) capsule furosemide 40 mg tablet 60 mg PO DAILY 06/11/23 06/11/23 History potassium chloride 20 mEq 20 meq PO DAILY 06/11/23 06/11/23 History tablet,extended release(part/cryst) Laboratory Tests 06/11/23 06/11/23 02:11 03:38 WBC 17.0 H K/mm3 (4.5-10.0) RBC 4.67 M/mm3 (4.6-6.20) Hgb 12.7 L g/dL (14.0-18.0) Hct 38.1 L % (42.0-52.0) MCV 81.6 fl (80-100) MCH 27.2 pg (26-34) MCHC 33.3 g/dl (32-36) RDW 14.6 H % (11.5-14.5) Plt Count 165 k/mm3 (150-375) MPV 10.9 H fl (7.4-10.4) Immature Gran % (Auto) 2.3 H % (0-0.5) Neut % (Auto) 84.6 H % (45.5-73.1) Lymph % (Auto) 6.1 L % (18.3-44.2) [place] % (Auto) 6.4 % (2.6-8.5) Eos % (Auto) 0.1 % (0-4.4) Baso % (Auto) 0.5 % (0.2-1.2) Lymph # (Auto) 1.03 K/mm3 (0.9-3.2) [place] # (Auto) 1.1 H K/mm3 (0.1-0.6) Eos # (Auto) 0.0 K/mm3 (0-0.3) Baso # (Auto) 0.1 K/mm3 (0.0-0.1) Abs Immat Gran (auto) 0.39 H K/mm3 (0.00-0.031) Absolute Neuts (auto) 14.4 H K/mm3 (1.3-6.7) Absolute Nucleated RBC 0.0 K/mm3 (0.0-0.012) Nucleated RBC % 0.0 % (0.0-0.2) PT 15.8 H Seconds (11.1-14.7) INR 1.2 APTT 28.7 SECONDS (22.3-36.8) Sodium 127 L mmol/L (137-145) Potassium 3.2 L mmol/L (3.4-5.0) Chloride 88 L mmol/L (98-107) Carbon Dioxide 23 mmol/L (22-30) Anion Gap 16 mmol/L (8-16) BUN 123 H D mg/dL (9-20) Creatinine 6.30 H mg/dL (0.7-1.3) Estim Creat Clear Calc 13 ml/min Estimated GFR 9 L (59 - ) Glucose 126 H mg/dL (65-110) Lactic Acid 1.0 mmol/L (0.7-2.0) Calcium 8.7 mg/dL (8.4-10.2) Total Bilirubin 1.1 mg/dL (0.2-1.3) AST 35 U/L (17-59) ALT 62 H U/L (6-50) Alkaline Phosphatase 207 H U/L (38-126) Troponin I < 0.012 ng/mL (0.000-0.034) C-Reactive Protein 34.3 H mg/dL (<1.0) Total Protein 7.0 g/dL (6.3-8.2) Albumin 3.7 g/dL (3.5-5.1) Patient hx anesthesia problems: none Family hx anesthesia problems: none Results Review: All pre-operative results and documents have been reviewed as part of the pre-operative evaluation. [facility] Past Medical History Medical History Benign prostate hyperplasia Bipolar disorder COPD with emphysema Facial fracture Skin cancer Tobacco abuse counseling Tobacco dependence Surgical History Surgical History History of tonsillectomy Status
--- NOTE | 2023-06-11 07:28 | WPDURCON ---
Assessment and Plan Assessment and plan (1) Gross hematuria: Code(s): R31.0 - Gross hematuria Status: Acute (2) Urinary retention: Code(s): R33.9 - Retention of urine, unspecified Status: Acute (3) Hydronephrosis: Code(s): N13.30 - Unspecified hydronephrosis Status: Acute (4) Benign prostate hyperplasia: Code(s): N40.0 - Benign prostatic hyperplasia without lower urinary tract symptoms Status: Acute (5) Noncompliance: Code(s): Z91.199 - Patient's noncompliance with other medical treatment and regimen due to unspecified reason Status: Acute Plan He was taken the operating room for cystoscopy and evacuation of clots. If I can find ureteral orifices I performed retrograde pyelograms. He may need bilateral ureteral stents. I suspect his elevated creatinine and bilateral hydronephrosis due to massively enlarged prostate and bladder outlet obstruction. I am somewhat hesitant to put stents in him unless necessary due to his noncompliance. Ultimately he would be best served by prostate artery embolization but again compliance has been an issue Urology Consult Note HPI Date Seen: 06/11/23 Requesting Physician: Sam Brantley MD Primary Care Provider: Ruben Gonzalez MD Consult Narrative Narrative: Andrey Giron is a 63 year old male who was known to our service. He has a massively enlarged prostate and has been to the hospital multiple times with gross hematuria. He last required cystoscopy with clot evacuation in March of this year. He returned to the ER yesterday with blood in his urine in urinary retention. He was found be in renal failure with a creatinine of 4. His baseline is 1.6. He has a history of noncompliance and often leaves the hospital against medical advice. He did this yesterday. He returned to the ER in the early hours of the morning with urinary retention. Rubio catheter was placed. His catheter was had issues draining. He has significant amount of urine in his bladder. There also appears to be blood clots in his bladder. He is in acute renal failure with a creatinine now of over 6. He was taken the operating room for evacuation of clots. If I can find his ureteral orifices I will attempt to do a retrograde pyelogram. Possible ureteral stents. He probably ultimately needs a prostate artery embolization but compliance has been an issue for this patient Review of Systems Review of Systems: All systems reviewed & are unremarkable except as noted in HPI and below PMFSH Past Medical History Medical History Benign prostate hyperplasia Bipolar disorder COPD with emphysema Facial fracture Skin cancer Tobacco abuse counseling Tobacco dependence Surgical History Surgical History History of tonsillectomy Status post surgical removal of malignant neoplasm of skin From his face and now has a growth on his nose. Family History Family History Other Family history non-contributory Social History Social History Social History: The patient is listed as being single and and works at the [employer]. Surrogate medical decision maker: Ari Giron, daughter. Code status: Full code. Smoking packs per day: 1.5 Smoking cigarettes per day: 30.0 Years smoked: 49 Smoking pack-years: 73.50 Smoking status: Current every day smoker Tobacco type: cigarettes Second hand tobacco smoke exposure: Yes Alcohol intake: never Substance use: never Substance use type: does not use Lack of Transportation: No Lack of Food: Never True Current Housing: I Have Housing Concerned About Future Housing: No Difficulty Paying Gas/Electric Bills: No Difficulty Paying for Meds: No Currently Unemployed: No Education:
--- NOTE | 2023-06-11 07:33 | P.PNAN_ITS ---
Anes - Eval Final PreProcedure Day of Procedure 06/11/23 07:33 Patient weight: obese Heart: regular rate and rhythm Lungs: clear to auscultation Airway: Mallampati scale class II Neurological: alert and oriented Last oral intake: >/= 8 hours ASA classification: III Emergent: yes Anesthetic plan: proceed Anesthesia type and monitoring: general LMA and standard monitoring Results Review: All pre-operative results and documents have been reviewed as part of the pre- operative evaluation. Informed Consent: The patient's anesthetic plan and its attendant risks and benefits were discussed with the patient/family/POA. Questions were solicited and answers provided to the satisfaction of the patient/family/POA.
--- NOTE | 2023-06-11 07:36 | WPDHPUPDATE1 ---
History and Physical Update Update Date/Time: 06/11/23 07:36 History and Physical has been reviewed, including an updated exam of the patient. There are NO changes in the patient's condition. Risks, benefits, and alternatives have been discussed and questions answered. Patient agrees to proceed with procedure.
--- NOTE | 2023-06-11 08:04 | PC.NURSE ---
Patient taken down to PACU around 0730.
--- NOTE | 2023-06-11 08:12 | P.OP_ITS ---
Procedure Note - Detailed Date of Procedure 06/11/23 Pre-op Diagnosis Gross hematuria Acute kidney injury Hydronephrosis Post-op Diagnosis Same Procedure Performed Cystoscopy with evacuation of clots and fulguration of prostatic bleeding Surgeon Magdy Pinto MD Anesthesia General Indications This is a gentleman with recurrent gross hematuria likely secondary to massively enlarged prostate Findings Massively enlarged prostate Significant trabeculations Enlarged median lobe which was fulgurated Unable to identify ureteral orifices Description of Procedure He has correctly identified. Informed consent was obtained. From the operating room. He was given general anesthesia. He was on appropriate perioperative antibiotics. A time-out performed. He was prepped and draped sterile fashion. The Rubio catheter was removed before doing this. Cystoscopy revealed enlarged prostate with massive lateral lobes and enlarged median lobe. I evacuated several clots out of his bladder. I examined his bladder. He has significant trabeculations. No tumors were seen. He had bleeding from the median lobe of the prostate. This was controlled with Bugbee cautery. All fulguration was done for away from the normal anatomic location of the ureteral orifices. i re- examined his bladder. I was unable to identify ureteral orifices. I took significant time to attempt to locate them. I was unable due to the median lobe of his prostate and his significant trabeculation. We will simply need to follow his creatinine postprocedure. At the conclusion a 22 three-way Rubio catheter was placed. He was placed on continuous bladder irrigation Implants None Estimated Blood Loss 5 Drains Yes (Three way Rubio catheter) Pathology None sent Complications No immediate complications Condition Stable Disposition PACU
[2023-06-11] MEDS: LACTATED RINGERS 1,000 ML 30 ML IV CONT (08:18)
--- NOTE | 2023-06-11 09:52 | PC.NURSE ---
brought patient back up from surgery, report received from Sienna TELLES in PACU
[2023-06-11] MEDS: SODIUM CHLORIDE 0.9% IV 1,000 ML 100 ML IV CONT ×2 (10:44→20:59)
[2023-06-11] MEDS: FUROSEMIDE 20 MG TABLET 60 MG PO (10:44)
[2023-06-11] MEDS: FINASTERIDE 5 MG TABLET PO (10:44)
[2023-06-11] MEDS: TAMSULOSIN HCL 0.4 MG CAPSULE PO (10:44)
--- NOTE | 2023-06-11 13:19 | PM.IMPN ---
Progress Note: A&P Assessment and Plan (1) Urinary tract infection: Code(s): N39.0 - Urinary tract infection, site not specified Status: Acute Assessment and Plan: Appreciate urology consultation, continue Keflex (2) Bipolar disorder: Code(s): F31.9 - Bipolar disorder, unspecified Status: Acute Assessment and Plan: Continue medications, stable (3) Tobacco dependence: Code(s): F17.200 - Nicotine dependence, unspecified, uncomplicated Status: Acute Assessment and Plan: Smoking cessation discussed greater than 5 minutes (4) Urinary retention: Code(s): R33.9 - Retention of urine, unspecified Status: Acute Assessment and Plan: Appreciate urology consultation, resolved (5) Hematuria: Code(s): R31.9 - Hematuria, unspecified Status: Acute Assessment and Plan: Resolved with CBI, monitor (6) Benign prostate hyperplasia: Code(s): N40.0 - Benign prostatic hyperplasia without lower urinary tract symptoms Status: Acute Assessment and Plan: Continue home medications, stable (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 - Emphysema, unspecified Status: Acute Assessment and Plan: Does not appear to be in exacerbation (8) Acute kidney injury: Code(s): N17.9 - Acute kidney failure, unspecified Status: Acute Assessment and Plan: Worsening, appreciate urology consultation, consider Nephrology consultation (9) Bladder outlet obstruction: Code(s): N32.0 - Bladder-neck obstruction Status: Acute (10) Personal history of noncompliance with medical treatment and regimen: Code(s): Z91.199 - Patient's noncompliance with other medical treatment and regimen due to unspecified reason Status: Acute (11) Tobacco abuse counseling: Code(s): Z71.6 - Tobacco abuse counseling Status: Acute Plan DVT prophylaxis with SCDs GI prophylaxis not indicated Code status full code Subjective Date/time seen: 06/11/23 13:19 Interval history: No overnight events noted. No chest pain or shortness of breath. No nausea, vomiting or diarrhea. No fevers or chills. CBI running clear now. Review of Systems Review of Systems: 12 point review of systems was assessed and was negative except as noted in the HPI Exam Narrative: General: No acute distress, alert and oriented per baseline HEENT: Atraumatic, normocephalic, mucous membranes moist CV: Regular rate and rhythm, S1, S2 Lungs: Clear to auscultation bilaterally, no rales or crackles noted, no wheezes, good air entry Abdomen: Soft, nontender, nondistended Extremities: Normal to inspection Skin: No rashes noted, no lesions or wounds seen Psych: Euthymic, normal affect Objective Data Vital Signs Vital Signs: Vital Signs - 24 hr 06/10/23 23:51 06/11/23 06:34 06/11/23 06:23 Temperature 97.0 F L Pulse Rate 102 H 79 Respiratory Rate 18 16 Blood Pressure 152/88 H 145/89 H Pulse Oximetry 99 97 Oxygen Delivery Room Air Room Air Oxygen Flow Rate 06/11/23 06:32 06/11/23 08:18 06/11/23 08:33 Temperature 97.6 F 97.6 F Pulse Rate 97 94 88 Respiratory Rate 14 11 L 12 Blood Pressure 144/75 H 120/81 134/83 Pulse Oximetry 92 99 100 Oxygen Delivery Simple Face Mask Simple Face Mask Oxygen Flow Rate 8 8 06/11/23 08:48 06/11/23 09:03 06/11/23 09:18 Temperature Pulse Rate 86 82 81 Respiratory Rate 12 12 12 Blood Pressure 126/90 110/75 110/77 Pulse Oximetry 100 94 93 Oxygen Delivery Room Air Room Air Room Air Oxygen Flow Rate 06/11/23 09:33 06/11/23 09:53 06/11/23 10:08 Temperature 97.1 F L 97.1 F L Pulse Rate 79 80 77 Respiratory Rate 12 18 18 Blood Pressure 119/76 130/83 120/81 Pulse Oximetry 93 96 95 Oxygen Delivery Room Air Oxygen Flow Rate 06/11/23 10:38 Temperature 98.4 F Pulse Rate 76 Respiratory Rate 18 Blo
[2023-06-11] MEDS: POTASSIUM CHLORIDE 20 MEQ ER TABLET 40 MEQ PO (13:22)
[2023-06-11] MEDS: CEPHALEXIN 500 MG CAPSULE PO ×2 (13:22→21:12)
[2023-06-11] MEDS: HYDROcodone/acetaminophen (*CRX) 5-325 MG TABLET 1 TAB PO (17:38)
[2023-06-11] MEDS: ACETAMINOPHEN 325 MG TABLET 650 MG PO (21:12)
[2023-06-11] MEDS: oxyBUTYnin CHLORIDE 5 MG TABLET PO (23:03)
[2023-06-12] VITALS: BP 106/63; PULSE 57; RESP 16; TEMP 36.3; O2SAT 93
[2023-06-12 04:00] VITALS: BP 127/72; PULSE 69; RESP 18; TEMP 36.8; O2SAT 94
[2023-06-12 05:56] LABS: Basophils Absolute Auto 0.1 K/mm3 (0.0-0.1); Basophils Percent Auto 0.3 % (0.2-1.2); Eosinophils Percent Auto 0.1 % (0-4.4); Hematocrit 37.3 % (42.0-52.0); Immature Granulocyte Absolute 0.61 K/mm3 (0.00-0.031); Immature Granulocyte Percent A 3.9 % (0-0.5); Lymphocytes Absolute Auto 1.14 K/mm3 (0.9-3.2); Lymphocytes Percent Auto 7.2 % (18.3-44.2); Mean Corpuscular HGB Conc 32.2 g/dl (32-36); Mean Corpuscular Hemoglobin 27.6 pg (26-34); Mean Corpuscular Volume 85.7 fl (80-100); Mean Platelet Volume 10.7 fl (7.4-10.4); Monocytes Absolute Auto 0.7 K/mm3 (0.1-0.6); Monocytes Percent Auto 4.6 % (2.6-8.5); Neutrophils Absolute Auto 13.3 K/mm3 (1.3-6.7); Neutrophils Percent Auto 83.9 % (45.5-73.1); Platelet Count Result 215 k/mm3 (150-375); Red Blood Count 4.35 M/mm3 (4.6-6.20); Red Cell Distribution Width 14.8 % (11.5-14.5); White Blood Count 15.8 K/mm3 (4.5-10.0)
[2023-06-12 06:19] LABS: Anion Gap 13 mmol/L (8-16); Blood Urea Nitrogen 104 mg/dL (9-20); Calcium 8.4 mg/dL (8.4-10.2); Carbon Dioxide 29 mmol/L (22-30); Chloride 96 mmol/L (98-107); Estimated CRCL calculation 21 ml/min; Estimated Glomerular Filt Rate 16; Glucose 133 mg/dL (65-110); Phosphorus 6.4 mg/dL (2.5-4.5); Potassium 3.6 mmol/L (3.4-5.0); Sodium 138 mmol/L (137-145)
[2023-06-12] MEDS: CEPHALEXIN 500 MG CAPSULE PO ×3 (06:26→21:09)
[2023-06-12] MEDS: HYDROcodone/acetaminophen (*CRX) 5-325 MG TABLET 1 TAB PO (06:26)
[2023-06-12] MEDS: SODIUM CHLORIDE 0.9% IV 1,000 ML 100 ML IV CONT (07:21)
[2023-06-12] MEDS: FINASTERIDE 5 MG TABLET PO (08:31)
[2023-06-12] MEDS: FUROSEMIDE 20 MG TABLET 60 MG PO (08:31)
[2023-06-12] MEDS: TAMSULOSIN HCL 0.4 MG CAPSULE PO (08:31)
[2023-06-12 08:49] VITALS: BP 134/72; PULSE 88; RESP 16; TEMP 36.3; O2SAT 95
[2023-06-12] MEDS: ACETAMINOPHEN 325 MG TABLET 650 MG PO ×2 (10:40→21:17)
--- NOTE | 2023-06-12 11:48 | WPDUROPN2 ---
Progress Note: A&P Assessment and Plan (1) Gross hematuria: Code(s): R31.0 - Gross hematuria Status: Acute Assessment and Plan: Resolved after clot evacuation and fulguration of prostate (2) Bilateral hydronephrosis: Code(s): N13.30 - Unspecified hydronephrosis Status: Acute Assessment and Plan: Due to urinary retention and benign prostatic hyperplasia. Creatinine improving (3) Urinary retention: Code(s): R33.9 - Retention of urine, unspecified Status: Acute Assessment and Plan: Continue Rubio catheter. Subjective Subjective Date/Time Seen: 06/12/23 11:48 Interval history: Urine clear with CBI off Creatinine improving Came to the hospital with a Rubio catheter Exam Narrative: No acute distress Urine clear Rubio catheter in place Objective Data Vital Signs Vital Signs: Vital Signs - 24 hr 06/11/23 14:30 06/11/23 20:00 06/12/23 00:00 Temperature 97.4 F L 99 F 97.4 F L Pulse Rate 85 84 57 L Respiratory Rate 18 20 16 Blood Pressure 126/77 120/79 106/63 Pulse Oximetry 97 97 93 Oxygen Delivery 06/11/23 21:05 06/12/23 04:00 06/12/23 08:49 Temperature 98.2 F 97.4 F L Pulse Rate 69 88 Respiratory Rate 18 16 Blood Pressure 127/72 134/72 Pulse Oximetry 94 95 Oxygen Delivery Room Air 06/12/23 08:00 Temperature Pulse Rate Respiratory Rate Blood Pressure Pulse Oximetry Oxygen Delivery Room Air Intake/Output Intake/Output: Intake & Output 06/09/23 06/10/23 06/11/23 06/12/23 23:59 23:59 23:59 23:59 Intake Total 6340 2730 Output Total 5200 1275 Balance 1140 1455 Meds/Results Medications: Active Medications Generic Name Dose Route Start Last Admin Trade Name Freq PRN Reason Stop Dose Admin Acetaminophen 650 mg 06/11/23 06:32 06/12/23 10:40 Acetaminophen 325 Mg Tablet PO 650 mg Q4H PRN Administration Mild Pain (1-3) or Fever Hydrocodone Bitart/Acetaminophen 1 tab 06/11/23 09:38 06/12/23 06:26 Hydrocodone/Acetaminophen (*Crx) 5-325 Mg Tablet PO 1 tab Q6H PRN Administration Pain Rated 4-6 Al Hydrox/Mg Hydrox/Simethicone 30 ml 06/11/23 06:32 Mag Hydrox/Al Hydrox/Simeth 30 Ml Udc PO QID PRN Dyspepsia Albuterol 2 puff 06/11/23 09:38 Albuterol Sulfate (*Sp) Aerosol 1 Puff INHALATION QID PRN shortness of breath or wheezing Cephalexin HCl 500 mg 06/11/23 14:00 06/12/23 06:26 Cephalexin 500 Mg Capsule PO 500 mg Q8HR CHRIS Administration Ergocalciferol 50,000 units 06/15/23 09:00 Ergocalciferol 50,000 Units Capsule PO WEEKLY CHRIS Finasteride 5 mg 06/11/23 09:38 06/12/23 08:31 Finasteride 5 Mg Tablet PO 5 mg QAM CHRIS Administration Furosemide 60 mg 06/11/23 09:38 06/12/23 08:31 Furosemide 20 Mg Tablet PO 60 mg DAILY CHRIS Administration Sodium Chloride 1,000 mls @ 100 mls/hr 06/11/23 06:35 06/12/23 07:21 Normal Saline Iv IV CONT 100 mls/hr .Q10H CHRIS Administration Tamsulosin HCl 0.4 mg 06/11/23 09:38 06/12/23 08:31 Tamsulosin Hcl 0.4 Mg Capsule PO 0.4 mg QAM CHRIS Administration Radiology Results: ITS Impressions Abdomen/Pelvis CT 06/11/23 06:59 IMPRESSION: 1. Moderate bilateral hydronephrosis to the level of the bladder. Bladder wall is diffusely thickened which may be due to outlet obstruction from enlarged prostate gland or cystitis. Complex soft tissue containing the bladder may represent blood clot or less likely tumor. 2: Nonobstructing left nephrolithiasis. Labs Labs: Laboratory Results - last 24 hr 06/12/23 05:08 WBC 15.8 H RBC 4.35 L Hgb 12.0 L Hct 37.3 L MCV 85.7 D MCH 27.6 MCHC 32.2 RDW 14.8 H Plt Count 215 MPV 10.7 H Immature Gran % (Auto) 3.9 H Neut % (Auto) 83.9 H Lymph % (Auto) 7.2 L [place] % (Auto) 4.6 Eos % (Auto) 0.1 Baso % (Auto) 0.3 Lymph # (Auto) 1.14 [place] # (Auto) 0.7 H Eos # (Auto) 0.0 Baso # (Auto)
[2023-06-12 14:57] VITALS: BP 125/68; PULSE 93; RESP 16; TEMP 35.9; O2SAT 96
--- NOTE | 2023-06-12 15:01 | PM.IMPN ---
Progress Note: A&P Assessment and Plan (1) Urinary tract infection: Code(s): N39.0 - Urinary tract infection, site not specified Status: Acute Assessment and Plan: Appreciate urology consultation, continue Keflex Hesitant to place bilateral stents due to noncompliance, may need these in the future due to hydronephrosis (2) Bipolar disorder: Code(s): F31.9 - Bipolar disorder, unspecified Status: Acute Assessment and Plan: Continue medications, stable (3) Tobacco dependence: Code(s): F17.200 - Nicotine dependence, unspecified, uncomplicated Status: Acute Assessment and Plan: Smoking cessation discussed greater than 5 minutes (4) Urinary retention: Code(s): R33.9 - Retention of urine, unspecified Status: Acute Assessment and Plan: Appreciate urology consultation, resolved (5) Hematuria: Code(s): R31.9 - Hematuria, unspecified Status: Acute Assessment and Plan: Resolved with CBI, monitor (6) Benign prostate hyperplasia: Code(s): N40.0 - Benign prostatic hyperplasia without lower urinary tract symptoms Status: Acute Assessment and Plan: Continue home medications, stable May need prostate artery embolization due to massively enlarged prostate and bladder outlet obstruction (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 - Emphysema, unspecified Status: Acute Assessment and Plan: Does not appear to be in exacerbation (8) Acute kidney injury: Code(s): N17.9 - Acute kidney failure, unspecified Status: Acute Assessment and Plan: Worsening, appreciate urology consultation, Nephrology is consulted Suspect this is secondary to bilateral hydronephrosis with massively enlarged prostate and bladder outlet obstruction (9) Bladder outlet obstruction: Code(s): N32.0 - Bladder-neck obstruction Status: Acute Assessment and Plan: See above (10) Personal history of noncompliance with medical treatment and regimen: Code(s): Z91.199 - Patient's noncompliance with other medical treatment and regimen due to unspecified reason Status: Acute (11) Tobacco abuse counseling: Code(s): Z71.6 - Tobacco abuse counseling Status: Acute Plan DVT prophylaxis with SCDs GI prophylaxis not indicated Code status full code Subjective Date/time seen: 06/12/23 15:01 Interval history: 63-year-old patient with history of BPH, bipolar, COPD other comorbidities is presenting with gross hematuria. No overnight events noted. No chest pain or shortness of breath. No nausea, vomiting or diarrhea. No fevers or chills. CBI running clear now. Patient here to go home. Denies any complaints. Review of Systems Review of Systems: 12 point review of systems was assessed and was negative except as noted in the HPI Exam Narrative: General: No acute distress, alert and oriented per baseline HEENT: Atraumatic, normocephalic, mucous membranes moist CV: Regular rate and rhythm, S1, S2 Lungs: Clear to auscultation bilaterally, no rales or crackles noted, no wheezes, good air entry Abdomen: Soft, nontender, nondistended Extremities: Normal to inspection Skin: No rashes noted, no lesions or wounds seen Psych: Euthymic, normal affect Objective Data Vital Signs Vital Signs: Vital Signs - 24 hr 06/11/23 20:00 06/12/23 00:00 06/11/23 21:05 Temperature 99 F 97.4 F L Pulse Rate 84 57 L Respiratory Rate 20 16 Blood Pressure 120/79 106/63 Pulse Oximetry 97 93 Oxygen Delivery Room Air 06/12/23 04:00 06/12/23 08:49 06/12/23 08:00 Temperature 98.2 F 97.4 F L Pulse Rate 69 88 Respiratory Rate 18 16 Blood Pressure 127/72 134/72 Pulse Oximetry 94 95 Oxygen Delivery Room Air 06/12/23 14:57 Temperature 96.7 F L Pulse Rate 93 Respiratory Rate 16 Blood Pressure 125/68 Pulse Oximetry 96 Oxyg
--- NOTE | 2023-06-12 15:24 | WPDANESPN ---
Anes - Prog Note Post-Op Date/Time: 06/12/23 15:24 Cardiovascular status: normal Respiratory status: normal Airway patency: baseline Mental status: baseline Post-Op hydration status: normal Vital Signs: Last Vital Signs Temp 96.7 F L 06/12/23 14:57 Pulse 93 06/12/23 14:57 Resp 16 06/12/23 14:57 BP 125/68 06/12/23 14:57 Pulse Ox 96 06/12/23 14:57 O2 Del Method Room Air 06/12/23 08:00 O2 Flow Rate 8 06/11/23 08:33 Pain Score (VAS): 0 I/O: Intake & Output 06/11/23 06/12/23 06/12/23 23:59 07:59 15:59 Intake Total 2370 2250 720 Output Total 2200 1275 Balance 170 975 720 Laboratory Tests 06/12/23 05:08 06/12/23 05:08 06/12/23 05:08 WBC 15.8 H RBC 4.35 L Hgb 12.0 L Hct 37.3 L MCV 85.7 D MCH 27.6 MCHC 32.2 RDW 14.8 H Plt Count 215 MPV 10.7 H Immature Gran % (Auto) 3.9 H Neut % (Auto) 83.9 H Lymph % (Auto) 7.2 L [place] % (Auto) 4.6 Eos % (Auto) 0.1 Baso % (Auto) 0.3 Lymph # (Auto) 1.14 [place] # (Auto) 0.7 H Eos # (Auto) 0.0 Baso # (Auto) 0.1 Abs Immat Gran (auto) 0.61 H Absolute Neuts (auto) 13.3 H Absolute Nucleated RBC 0.0 Nucleated RBC % 0.0 Sodium 138 Potassium 3.6 Chloride 96 L Carbon Dioxide 29 Anion Gap 13 BUN 104 H D Creatinine 3.80 H Estim Creat Clear Calc 21 Estimated GFR 16 L Glucose 133 H Calcium 8.4 Phosphorus 6.4 H Magnesium 3.0 H Microbiology 06/11/23 03:38 Blood Blood Culture - Preliminary 06/11/23 03:40 Blood Blood Culture - Preliminary Post-procedural complaints: none Patient Feedback: Patient satisfied with anesthetic care.
[2023-06-12 18:40] VITALS: BP 152/79; PULSE 87; RESP 16; TEMP 36.8; O2SAT 95
[2023-06-12 19:49] VITALS: BP 165/76; PULSE 85; RESP 18; TEMP 36.2; O2SAT 97
[2023-06-13] VITALS: BP 118/80; PULSE 89; RESP 18; TEMP 36.2; O2SAT 96
[2023-06-13 04:00] VITALS: BP 143/76; PULSE 72; RESP 18; TEMP 36.4; O2SAT 96
[2023-06-13] MEDS: CEPHALEXIN 500 MG CAPSULE PO (04:43)
[2023-06-13] MEDS: ACETAMINOPHEN 325 MG TABLET 650 MG PO (04:43)
[2023-06-13 05:47] LABS: Hematocrit 39.4 % (42.0-52.0); Hemoglobin 12.6 g/dL (14.0-18.0); Mean Corpuscular Hemoglobin 27.5 pg (26-34); Mean Platelet Volume 10.2 fl (7.4-10.4); Platelet Count Result 273 k/mm3 (150-375); Red Blood Count 4.58 M/mm3 (4.6-6.20)
[2023-06-13 05:58] LABS: Anion Gap 8 mmol/L (8-16); Blood Urea Nitrogen 77 mg/dL (9-20); Calcium 8.5 mg/dL (8.4-10.2); Carbon Dioxide 32 mmol/L (22-30); Chloride 93 mmol/L (98-107); Estimated CRCL calculation 29 ml/min; Estimated Glomerular Filt Rate 24; Glucose 116 mg/dL (65-110); Potassium 3.6 mmol/L (3.4-5.0); Sodium 133 mmol/L (137-145)
[2023-06-13 07:00] LABS: Anisocytosis 1+ (NORMAL); Band Neutrophils Percent 2 % (0-6); Metamyelocytes Percent 2 %; Monocytes Absolute Manual 0.45 K/mm3 (0.1-0.90); Monocytes Percent Manual 3 % (3-9); Myelocytes Percent 1 %; Neutrophils Percent Manual 88 % (46-73); Platelet Estimate Adequate (Adequate); Schistocytes None Seen (NORMAL); Total Cells Counted 100
[2023-06-13 09:03] VITALS: BP 137/89; PULSE 101; RESP 20; TEMP 36.3; O2SAT 96
[2023-06-13] MEDS: FINASTERIDE 5 MG TABLET PO (09:17)
[2023-06-13] MEDS: TAMSULOSIN HCL 0.4 MG CAPSULE PO (09:17)
[2023-06-13] MEDS: FUROSEMIDE 20 MG TABLET 60 MG PO (09:17)
[2023-06-13 09:21] VITALS: O2SAT 95
--- NOTE | 2023-06-13 10:50 | PM.CNNEP ---
Assessment and Plan Assessment and plan (1) Acute kidney injury: Code(s): N17.9 - Acute kidney failure, unspecified Status: Acute Assessment and Plan: due to obstructive uropathy/urinary retention evidence of bilateral hydronephrosis by CT imaging in ER improvement in renal function noted question need for diuretics at this time... follow trend of renal function and UOP (2) Bladder outlet obstruction: Code(s): N32.0 - Bladder-neck obstruction Status: Acute Assessment and Plan: as noted by admission imaging gutiérrez catheter in place good urine output noted with downward trend of creatinine Urology following back on flomax and finasteride (3) Gross hematuria: Code(s): R31.0 - Gross hematuria Status: Acute Assessment and Plan: resolved with interventions to date secondary to BPH (operative report noted) I will continue to follow the patient with you while he remains hospitalized and make further recommendations as needed. Thank you for allowing me to participate in the care of this patient. History of Present Illness Reason for Consult Consult date: 06/13/23 Reason for consult: acute renal failure Chief Complaint Chief complaint: BRYAN History of Present Illness Narrative: The patient is a 63-year-old male with a past medical history as outlined below who presented to [facility] Emergency room for further evaluation of gross hematuria. The patient actually presented to [facility] Emergency room on 06/10 for evaluation of hematuria. As he has a known history of BPH as well as bladder outlet obstruction, a Gutiérrez catheter was placed. Routine blood work at that time showed his creatinine up to 4.7 in association with a mildly low sodium level and an elevated white blood cell count concerning for a possible urinary tract infection. It was desk us with the patient that further intervention may me he did be done and hospitalization was recommended but he refused and left against medical advice. Subsequently, the next day, he presented with the same issue but felt that the hematuria was even worse. CBI was initiated which demonstrated multiple blood clots present. Repeat blood work demonstrate his creatinine up to 6.3 mg/dL as well. He had a CT scan of his abdomen pelvis done which demonstrated moderate bilateral hydronephrosis at the level of the bladder with the bladder wall diffusely thickened due to outlet obstruction from enlarged prostate gland or cystitis. Urology was consulted from the ER and he was subsequently admitted to the hospital for further evaluation therapy Since his admission, urology saw the patient and took him to the OR for cystoscopy and clot evacuation which was successfully done on 06/11/2023. As noted from the operative report, they were unable to identify ureteral orifices so stent placement was not done. Since this intervention, his renal function has been slowly improving and is currently down to 2.7 mg/dL. His baseline creatinine normally runs around 1.3-1.6 mg/dL. Renal consultation was requested due to his acute kidney injury/acute renal failure. The patient is somewhat known to me as I have taking care of him before for this similar issue. He has had numerous bouts of acute kidney injury/ acute renal failure in the past several months and all of these instances seem to correlate with obstructive uropathy. Each time he has intervention done, his kidney function improves up and usually returns back to baseline by the time of discharge. Unfortunately, his follow-up for ongoing management of this issue seems to be quite poor in general. As already mentioned, his kidney function / creatinine has improved remarkably since cystoscopy and clot evacuation and the hope is that his kidney function will continue to improve with time. I am somewhat concerned that each time he has an episode of BRYAN/ARF associated with his known obs
--- NOTE | 2023-06-13 11:16 | PM.DS ---
DS: Admitting Diagnosis Discharge Date 06/13/23 Admitting Diagnosis hematuria DS: Discharge Diagnosis Discharge Diagnosis (1) Urinary tract infection: Code(s): N39.0 - Urinary tract infection, site not specified Status: Acute Assessment and Plan: Appreciate urology consultation, continue Keflex Hesitant to place bilateral stents due to noncompliance, may need these in the future due to hydronephrosis (2) Bipolar disorder: Code(s): F31.9 - Bipolar disorder, unspecified Status: Acute Assessment and Plan: Continue medications, stable (3) Tobacco dependence: Code(s): F17.200 - Nicotine dependence, unspecified, uncomplicated Status: Acute Assessment and Plan: Smoking cessation discussed greater than 5 minutes (4) Urinary retention: Code(s): R33.9 - Retention of urine, unspecified Status: Acute Assessment and Plan: Appreciate urology consultation, resolved (5) Hematuria: Code(s): R31.9 - Hematuria, unspecified Status: Acute Assessment and Plan: Resolved with CBI, monitor (6) Benign prostate hyperplasia: Code(s): N40.0 - Benign prostatic hyperplasia without lower urinary tract symptoms Status: Acute Assessment and Plan: Continue home medications, stable May need prostate artery embolization due to massively enlarged prostate and bladder outlet obstruction (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 - Emphysema, unspecified Status: Acute Assessment and Plan: Does not appear to be in exacerbation (8) Acute kidney injury: Code(s): N17.9 - Acute kidney failure, unspecified Status: Acute Assessment and Plan: Worsening, appreciate urology consultation, Nephrology is consulted Suspect this is secondary to bilateral hydronephrosis with massively enlarged prostate and bladder outlet obstruction (9) Bladder outlet obstruction: Code(s): N32.0 - Bladder-neck obstruction Status: Acute Assessment and Plan: See above (10) Personal history of noncompliance with medical treatment and regimen: Code(s): Z91.199 - Patient's noncompliance with other medical treatment and regimen due to unspecified reason Status: Acute (11) Tobacco abuse counseling: Code(s): Z71.6 - Tobacco abuse counseling Status: Acute Plan DVT prophylaxis with SCDs GI prophylaxis not indicated Code status full code DS: Summary Hospital Course Hospital Course: 63-year-old patient with history of BPH, bipolar, COPD other comorbidities is presenting with gross hematuria. Patient admitted with urology consultation for CBI. Bilateral stents recommended due to hydronephrosis, however, due to severe noncompliance, Urology is recommending to wait before they insert stents at this time. They did recommend continuing Keflex. Due to his urinary retention the patient developed postobstructive uropathy with acute kidney injury. This improved significantly with CBI. CBI was able to be discontinued, hematuria resolved. Patient was discharged in stable condition with close outpatient follow-up by Urology. Nephrology was briefly consulted as creatinine elevated quite high, however, this quickly resolved. Please see above and med rec for details. Time Spent with Patient Time attestation: Total time spent providing and/or coordinating discharge services: Exam Narrative: General: No acute distress, alert and oriented per baseline HEENT: Atraumatic, normocephalic, mucous membranes moist CV: Regular rate and rhythm, S1, S2 Lungs: Clear to auscultation bilaterally, no rales or crackles noted, no wheezes, good air entry Abdomen: Soft, nontender, nondistended Extremities: Normal to inspection Skin: No rashes noted, no lesions or wounds seen Psych: Euthymic, normal affect DS: Data Data Completed and Pending Labs on day of discharg
[2023-06-13 12:47] LABS: SARS-CoV-2 RNA PCR Negative (Negative)
== END 2023-06-13 13:45 | disposition home or self-care (01) | DRG 484 ==
LOC: ANHED 06-11 05:06 → ANH2MED 06-11 05:35
PROVIDERS: Urology; Admitting Provider Family Medicine; Emergency Provider Student in an Organized Health Care Education/Training Program; PCP Hospitalist; Visit Provider Student in an Organized Health Care Education/Training Program
PROC: 0TCB8ZZ Extirpation of Matter from Bladder, Via Natural or Artificial Opening Endoscopic (ICD-10-PCS; CPT 52001; principal; 2023-06-11 07:30)
DX: N40.1 Benign prostatic hyperplasia with lower urinary tract symptoms (principal); N17.9 Acute kidney failure, unspecified; N13.30 Unspecified hydronephrosis; T83.511A Infection and inflammatory reaction due to indwelling urethral catheter, initial encounter; R31.0 Gross hematuria; N32.0 Bladder-neck obstruction; N32.89 Other specified disorders of bladder; R33.8 Other retention of urine; J44.9 Chronic obstructive pulmonary disease, unspecified; F31.9 Bipolar disorder, unspecified; F17.210 Nicotine dependence, cigarettes, uncomplicated; Z20.822 Contact with and (suspected) exposure to COVID-19; Z91.199 Patient's noncompliance with other medical treatment and regimen due to unspecified reason
CPT/HCPCS: 36415; 74176; 80048; 80053; 83605; 83735; 84100; 84484; 85025; 85610; 85730; 86140; 87040; 87635; 96374; 96376; 99285; A9270; J0696; J1100; J2250; J2270; J2405; J2704; J3010; J7030; J7120

== ENCOUNTER 2023-07-30 16:52 | Emergency (ER) | payer OTHER, SELFPAY ==
[2023-07-30 16:56] VITALS: BP 148/90; PULSE 108; RESP 18; TEMP 36.4; O2SAT 96
--- NOTE | 2023-07-30 17:00 | ED.MALEGU ---
HPI - Male Genitourinary General Chief complaint: Urogenital-Male <Ajay Fierro MD - Last Filed: 07/30/23 17:00> Stated complaint: CLOGGED CHILDS <Ajay Fierro MD - Last Filed: 07/30/23 17:00> Time Seen by Provider: 07/30/23 17:00 <Ajay Fierro MD - Last Filed: 07/30/23 17:00> Source: patient <Ajay Fierro MD - Last Filed: 07/30/23 17:00> History of Present Illness HPI Narrative: Patient who presents here frequently for hematuria and Childs issues, presents here because he feels like he is leaking around his Childs. He feels a sensation ago. Has some abdominal distention and denies other issues, no fevers or chills. <Becca Troy MD - Last Filed: 07/30/23 18:06> Related Data Home medications: Home Medications Medication Instructions Recorded Confirmed ergocalciferol (vitamin D2) 1,250 1,250 mcg PO WEEKLY 06/11/23 06/11/23 mcg (50,000 unit) capsule furosemide 40 mg tablet 60 mg PO DAILY 06/11/23 06/11/23 acetaminophen 500 mg tablet 500 mg PO QID PRN Pain 07/30/23 07/30/23 furosemide 40 mg tablet (Lasix) 40 mg PO DAILY 07/30/23 07/30/23 oxybutynin chloride 10 mg mg PO 07/30/23 07/30/23 tablet,extended release 24 hr <Ajay Fierro MD - Last Filed: 07/30/23 17:00> Allergies/Adverse reactions: Allergies Allergy/AdvReac Type Severity Reaction Status Date / Time No Known Allergies Allergy Verified 07/30/23 17:10 <Ajay Fierro MD - Last Filed: 07/30/23 17:00> Review of Systems Review of Systems: CONST: No fever. HEENT: No sore throat C/V: No chest pain RESP: No cough GI: Reports abdominal distention and cramps : Dysuria M/S: No joint pain. SKIN: No rash. NEURO: [No headache or focal numbness or weakness] PSYCH: [No depression] <Becca Troy MD - Last Filed: 07/30/23 18:06> [facility] Past Medical History Medical History: Medical History Benign prostate hyperplasia Bipolar disorder COPD with emphysema Facial fracture Skin cancer Tobacco abuse counseling Tobacco dependence <Ajay Fierro MD - Last Filed: 07/30/23 17:00> Surgical History Surgical History: Surgical History History of tonsillectomy Status post surgical removal of malignant neoplasm of skin From his face and now has a growth on his nose. <Ajay Fierro MD - Last Filed: 07/30/23 17:00> Family History Family History: Family History Other Family history non-contributory <Ajay Fierro MD - Last Filed: 07/30/23 17:00> Social History Social History: Social History Social History: The patient is listed as being single and and works at the [employer] station. Surrogate medical decision maker: Ari Giron, daughter. Code status: Full code. Smoking packs per day: 1.5 Smoking cigarettes per day: 30.0 Years smoked: 49 Smoking pack-years: 73.50 Smoking status: Current every day smoker Tobacco type: cigarettes Second hand tobacco smoke exposure: Yes Alcohol intake: never Substance use: never Substance use type: does not use Lack of Transportation: No Lack of Food: Never True Current Housing: I Have Housing Concerned About Future Housing: No Difficulty Paying Gas/Electric Bills: No Difficulty Paying for Meds: No Currently Unemployed: No Education: High School Diploma/GED Difficulty w/ Childcare or Family Care: No Additional living arrangements comments: Lives in [place]. Additional occupation/education comments: Works at a local [employer]. Spiritual care concerns: No <Ajay Fierro MD - Last Filed: 07/30/23 17:00> Exam Narrative: EXAMINATION OF ORGAN SYSTEMS/BODY AREAS: Constitutional: Vital signs per nursing GENERAL:[No acute distress, non-toxic appearing.] HEAD: Normal with no signs of he
[2023-07-30] MEDS: HYDROcodone/acetaminophen (*CRX) 5-325 MG TABLET 1 TAB PO (17:10)
[2023-07-30 17:20] LABS: Basophils Absolute Auto 0.1 K/mm3 (0.0-0.1); Basophils Percent Auto 0.6 % (0.2-1.2); Eosinophils Absolute Auto 0.1 K/mm3 (0-0.3); Eosinophils Percent Auto 1.1 % (0-4.4); Hematocrit 41.7 % (42.0-52.0); Hemoglobin 13.5 g/dL (14.0-18.0); Immature Granulocyte Absolute 0.03 K/mm3 (0.00-0.031); Immature Granulocyte Percent A 0.2 % (0-0.5); Lymphocytes Absolute Auto 0.98 K/mm3 (0.9-3.2); Lymphocytes Percent Auto 7.9 % (18.3-44.2); Mean Corpuscular HGB Conc 32.4 g/dl (32-36); Mean Corpuscular Hemoglobin 27.8 pg (26-34); Mean Corpuscular Volume 85.8 fl (80-100); Mean Platelet Volume 9.5 fl (7.4-10.4); Monocytes Absolute Auto 0.7 K/mm3 (0.1-0.6); Monocytes Percent Auto 5.7 % (2.6-8.5); Neutrophils Absolute Auto 10.5 K/mm3 (1.3-6.7); Neutrophils Percent Auto 84.5 % (45.5-73.1); Platelet Count Result 219 k/mm3 (150-375); Red Blood Count 4.86 M/mm3 (4.6-6.20); Red Cell Distribution Width 16.6 % (11.5-14.5); White Blood Count 12.4 K/mm3 (4.5-10.0)
[2023-07-30 17:30] LABS: Anion Gap 12 mmol/L (8-16); Blood Urea Nitrogen 25 mg/dL (9-20); Carbon Dioxide 27 mmol/L (22-30); Chloride 101 mmol/L (98-107); Estimated CRCL calculation 42 ml/min; Estimated Glomerular Filt Rate 36; Glucose 140 mg/dL (65-110); Potassium 3.5 mmol/L (3.4-5.0); Sodium 140 mmol/L (137-145)
[2023-07-30 17:45] LABS: Appearance Urine Turbid (Clear); Bacteria Urine 4+ /hpf; Bilirubin Urine Negative (Negative); Blood Urine 2+ (Negative); Color Urine Yellow (Yellow); Glucose Urine UA Negative (Negative); Ketones Urine Negative (Negative); Leukocyte Esterase Ur 3+ LEU/UL (Negative); Nitrate Urine Positive (Negative); Protein Urine 1+ mg/dL (Negative); RBC Urine 21-50 /hpf (0-2); Squamous Epithelial Cell Urine None seen /hpf (Few); Urobilinogen Urine 0.2 mg/dL (<2.0); WBC Urine >100 /hpf
[2023-07-30] MEDS: LIDOCAINE HCL 2% GEL UROJET 10 ML PKG MUCOUS MEM (17:48)
[2023-07-30 17:51] VITALS: BP 151/94; PULSE 113; RESP 18; O2SAT 99
[2023-07-30 18:18] LABS: Add Urine Microscopic? YES
--- NOTE | 2023-07-30 18:21 | PC.NURSE ---
Pt refused to have the leg bag placed and refused stat lock
--- NOTE | 2023-07-30 18:21 | PC.NURSE ---
Pt given cab voucher back to [facility]
--- NOTE | 2023-07-30 18:29 | PC.NURSE ---
Attempted to call report to [facility].
--- NOTE | 2023-07-30 18:31 | PC.NURSE ---
[employer] cab called, stated they were in shift change and could not give exact ETA but it would be awhile
== END 2023-07-30 18:35 ==
PROVIDERS: Emergency Provider Emergency Medicine; PCP Hospitalist
DX: T83.098A Other mechanical complication of other urinary catheter, initial encounter (principal); N40.1 Benign prostatic hyperplasia with lower urinary tract symptoms; R33.8 Other retention of urine; J43.9 Emphysema, unspecified; F17.210 Nicotine dependence, cigarettes, uncomplicated; Z85.828 Personal history of other malignant neoplasm of skin; Y84.6 Urinary catheterization as the cause of abnormal reaction of the patient, or of later complication, without mention of misadventure at the time of the procedure
CPT/HCPCS: 36415; 51702; 80048; 81001; 85025; 87077; 87086; 87088; 87186; 99283; A9270

== ENCOUNTER 2023-08-07 15:25 | Emergency (ER) | payer OTHER, SELFPAY ==
[2023-08-07 15:28] VITALS: BP 164/114; PULSE 115; RESP 20; TEMP 36.6; O2SAT 96
--- NOTE | 2023-08-07 15:56 | PC.NURSE ---
Pt requesting gutiérrez be removed. Pt able to void after, post residual bladder scan showed 30mL. Pt waiting to see provider before another is placed.
--- NOTE | 2023-08-07 17:14 | ED.GENADULT ---
HPI - General Adult General Chief complaint: Urogenital-Male Stated complaint: urinary retention Time Seen by Provider: 08/07/23 16:59 Source: patient Mode of arrival: ambulatory Limitations: no limitations History of Present Illness HPI narrative: This is a 63-year-old male with PMH of BPH, Rubio catheter who presents to the ED with chief complaint of urinary retention with indwelling Rubio catheter. Reports that he has had this catheter for about a week as he was seen here last week for the same problem. Reports that he has often had sediment that clocks the catheter. Denies any hematuria. Patient notes that they removed the catheter during the nursing assessment and that he was able to urinate on his own without difficulty after that. He now has no current complaints. Per chart review nursing notes show his residual volume of 30 mL after he gave us a urine sample. Related Data Home Medications Medication Instructions Recorded Confirmed ergocalciferol (vitamin D2) 1,250 1,250 mcg PO WEEKLY 06/11/23 06/11/23 mcg (50,000 unit) capsule furosemide 40 mg tablet 60 mg PO DAILY 06/11/23 06/11/23 acetaminophen 500 mg tablet 500 mg PO QID PRN Pain 07/30/23 07/30/23 furosemide 40 mg tablet (Lasix) 40 mg PO DAILY 07/30/23 07/30/23 oxybutynin chloride 10 mg mg PO 07/30/23 07/30/23 tablet,extended release 24 hr Allergies Allergy/AdvReac Type Severity Reaction Status Date / Time No Known Allergies Allergy Verified 07/30/23 17:10 Review of Systems Review of Systems: All systems as dictated in HPI [facility] Past Medical History Medical History Benign prostate hyperplasia Bipolar disorder COPD with emphysema Facial fracture Skin cancer Tobacco abuse counseling Tobacco dependence Surgical History Surgical History History of tonsillectomy Status post surgical removal of malignant neoplasm of skin From his face and now has a growth on his nose. Family History Family History Other Family history non-contributory Social History Social History Social History: The patient is listed as being single and and works at the [employer]. Surrogate medical decision maker: Ari Giron, daughter. Code status: Full code. Smoking packs per day: 1.5 Smoking cigarettes per day: 30.0 Years smoked: 49 Smoking pack-years: 73.50 Smoking status: Current every day smoker Tobacco type: cigarettes Second hand tobacco smoke exposure: Yes Alcohol intake: never Substance use: never Substance use type: does not use Lack of Transportation: No Lack of Food: Never True Current Housing: I Have Housing Concerned About Future Housing: No Difficulty Paying Gas/Electric Bills: No Difficulty Paying for Meds: No Currently Unemployed: No Education: High School Diploma/GED Difficulty w/ Childcare or Family Care: No Additional living arrangements comments: Lives in [place]. Additional occupation/education comments: Works at a local [employer]. Spiritual care concerns: No Exam Narrative: GENERAL: Well-appearing, well-nourished, and in no acute distress. HEAD: Normocephalic, atraumatic. EYES: PERRLA and EOMI. ENT: Nares clear, no rhinorrhea or epistaxis. Mucous membranes moist. Oropharynx without tonsillar hypertrophy exudate or other lesions. NECK: Supple. No adenopathy or masses. CHEST: No respiratory distress. Clear to auscultation. No wheezes rales or rhonchi HEART: Regular rate and rhythm. No murmur heard. Normal peripheral pulses. ABDOMEN: Negative flank tenderness. Soft, grossly nontender, nondistended, normal active bowel sounds. MSK: Normal range of motion. No edema. SKIN: Warm, dry, no rash. NEURO: Alert and oriented x3. No focal deficits. PSYCH: Normal
[2023-08-07] MEDS: ACETAMINOPHEN 500 MG TABLET 1000 MG PO (17:16)
[2023-08-07 17:21] VITALS: BP 159/94; PULSE 100; RESP 20; O2SAT 97
--- NOTE | 2023-08-07 18:08 | PC.NURSE ---
Pt gutiérrez cath DC per EDP, pt discharged to the senior care with new order for ABT for UTI and transported by private vehicle. Report called to the senior care.
== END 2023-08-07 17:50 | disposition home or self-care (01) ==
PROVIDERS: Emergency Provider Physician Assistant; PCP Hospitalist
DX: T83.091A Other mechanical complication of indwelling urethral catheter, initial encounter (principal); N40.0 Benign prostatic hyperplasia without lower urinary tract symptoms; J43.9 Emphysema, unspecified; Z85.828 Personal history of other malignant neoplasm of skin; F17.210 Nicotine dependence, cigarettes, uncomplicated; Y84.6 Urinary catheterization as the cause of abnormal reaction of the patient, or of later complication, without mention of misadventure at the time of the procedure
CPT/HCPCS: 99283; A9270

== ENCOUNTER 2023-11-13 10:25 | Inpatient (IN) | payer OTHER, SELFPAY ==
--- NOTE | ~2023-11-13 | CT_ITS ---
EXAMINATION: CT guide nephro tube pl BI DATE: 11/18/2023 10:39 INDICATION: Bilateral hydronephrosis. TECHNIQUE: The procedure including the risks, benefits, and alternatives was discussed with the patie nt. Risks discussed included bleeding and infection. The patient understood the risks and benefits an d agreed to proceed. The skin overlying the kidneys was prepped and draped in usual sterile fashion. Anesthetic was administered with 1% lidocaine subcutaneously. An 18 gauge trochar needle was insert ed into a calyx of the right kidney under CT guidance. The needle was exchanged over a wire for 6 Chavo nch and 8 Tajik dilators and then for an 8.5 Tajik pigtail catheter under CT guidance. An 18 gauge trochar needle was inserted into a calyx of the left kidney under CT guidance. The needle was exchanged over a wire for 6 Tajik and 8 Tajik dilators and then for an 8.5 Tajik pigtail cath eter under CT guidance. The catheters were stitched to the skin. Dressings were applied. Automated exposure control and itera tive reconstruction technique were employed. The dose-length product was 473.64 mGy-cm. There were no immediate complications. FINDINGS: CT images demonstrate the right nephrostomy tube in the renal pelvis. CT images demonstrate the left nephrostomy tube in expected position. IMPRESSION: 1. Successful CT-guided right nephrostomy tube placement. 2. Successful CT-guided left nephrostomy tube placement. Reviewed, dictated and finalized at location A. RAL CONTRACTOR
--- NOTE | ~2023-11-13 | XR_ITS ---
EXAMINATION: XR chest port-a-cath/central INDICATION: Duraflow catheter insertion TECHNIQUE: Portable AP chest at 1413 hours COMPARISON: 11/14/2023 FINDINGS: A large bore right internal jugular catheter ends with its tip in the proximal right atrium . The lungs are free of acute opacities. No pleural effusion or pneumothorax. The cardiomediastinal s ilhouette is normal. IMPRESSION: 1. Large bore right internal jugular catheter ending with the tip in the proximal right atrium. No pn eumothorax. Reviewed, dictated and finalized at location B. WORKER IMPRESSION: 1. Large bore right internal jugular catheter ending with the tip in the proxim al right atrium. No pneumothorax.
--- NOTE | ~2023-11-13 | CT_ITS ---
EXAMINATION: CT abdomen pelvis wo con DATE: 11/13/2023 13:01 INDICATION: Low back pain TECHNIQUE: Computed tomography (CT) of the abdomen and pelvis was performed without intravenous contr ast. The dose-length product was 591.05 mGy-cm. Automated exposure control and iterative reconstructi on technique were employed. COMPARISON: None. FINDINGS: Severely enlarged prostate gland. Diffuse bladder wall thickening, likely secondary to outl et obstruction. Moderate-severe bilateral hydronephrosis. Nonobstructing left nephrolithiasis. There is a left renal cyst. Lung bases unremarkable. Heart size normal. No significant pleural or pericardial effusion. The liver , spleen, pancreas, adrenal glands are unremarkable. Gallbladder is present. Nonobstructive bowel pat tern. Moderate lumbar spondylosis. IMPRESSION: 1. Severely enlarged prostate gland with bladder wall thickening, consistent with hypertrophy seconda ry to outlet obstruction. Moderate-severe bilateral hydronephrosis. 2: Nonobstructing left nephrolithiasis. Reviewed, dictated and finalized at location A. TY PIN ASSEMBLING MACHINE OPERATOR IMPRESSION: 1. Severely enlarged prostate gland with bladder wall thickening, consistent wi th hypertrophy secondary to outlet obstruction. Moderate-severe bilateral hydro nephrosis. 2: Nonobstructing left nephrolithiasis.
--- NOTE | ~2023-11-13 | XR_ITS ---
EXAMINATION: XR chest 2V DATE: 11/14/2023 08:13 INDICATION: Chest pain TECHNIQUE: PA and lateral views of the chest are obtained. COMPARISON: 03/14/2023 FINDINGS: The lungs are free of acute opacities. No pleural effusion or pneumothorax. The cardiomedia stinal silhouette is normal. There is moderate thoracic spondylosis. IMPRESSION: 1. No acute cardiopulmonary abnormality. Reviewed, dictated and finalized at location B. T CLERK
--- NOTE | ~2023-11-13 | XR_ITS ---
EXAMINATION: XR fl guide central line place INDICATION: Duraflow catheter insertion TECHNIQUE: Two intraoperative fluoroscopic images are submitted for review. Total fluoroscopic time i s 83.5 seconds. COMPARISON: None available FINDINGS: Fluoroscopic images demonstrate a right internal jugular catheter ending with its tip in th e proximal right atrium. Please refer to procedure note for full details. IMPRESSION: 1. Please refer to procedure note for full details. Reviewed, dictated and finalized at location B. PIECE REPAIRER
--- NOTE | ~2023-11-13 | XR_ITS ---
EXAM: XR hip RT 2V w AP pelvis DATE: 11/14/2023 18:16 HISTORY: right hip pain . COMPARISON: None available. FINDINGS: Normal mineralization. No fracture or dislocation. No lytic or blastic lesion. Mild bilate ral hip osteoarthritis. Mild scattered pelvic and hip enthesopathy. No erosion or periosteal change. Soft tissues within normal limits. IMPRESSION: No acute osseous finding in the pelvis or right hip. Reviewed, dictated and finalized at location K. ORT CLERK
--- NOTE | ~2023-11-13 | US_ITS ---
EXAMINATION: US renal BI DATE: 11/14/2023 09:07 INDICATION: Acute kidney injury TECHNIQUE: Multiple grayscale and Doppler ultrasound images of the kidneys were obtained. COMPARISON: CT from yesterday and ultrasound dated 03/16/2023 FINDINGS: The right kidney measures 12.5 x 6.2 x 5.7 cm. The left kidney measures 14.5 x 6.3 x 5.7 cm . The kidneys demonstrate normal parenchymal echogenicity. There is moderate bilateral hydronephrosis . The bladder is decompressed by a Rubio catheter. IMPRESSION: 1. Moderate hydronephrosis of the kidneys. Reviewed, dictated and finalized at location B. ING SUPERVISOR
--- NOTE | ~2023-11-13 | XR_ITS ---
EXAM: [id number]_CR DATE: 11/14/2023 18:16 HISTORY: right knee pain . COMPARISON: None available. FINDINGS: Normal mineralization. No fracture or dislocation. No lytic or blastic lesion. Mild tricom partmental osteoarthritis. No erosion or periosteal change. Soft tissues within normal limits. IMPRESSION: No acute osseous finding in the right knee. Reviewed, dictated and finalized at location K. TERIE TABLE ASSEMBLER
[2023-11-13 10:29] VITALS: BP 117/98; PULSE 102; RESP 16; TEMP 36.7; O2SAT 96
[2023-11-13 10:46] LABS: Basophils Absolute Auto 0.1 K/mm3 (0.0-0.1); Basophils Percent Auto 1.1 % (0.2-1.2); Eosinophils Absolute Auto 0.3 K/mm3 (0-0.3); Eosinophils Percent Auto 4.3 % (0-4.4); Hematocrit 26.7 % (42.0-52.0); Hemoglobin 8.6 g/dL (14.0-18.0); Immature Granulocyte Absolute 0.03 K/mm3 (0.00-0.031); Immature Granulocyte Percent A 0.4 % (0-0.5); Lymphocytes Absolute Auto 1.48 K/mm3 (0.9-3.2); Lymphocytes Percent Auto 18.7 % (18.3-44.2); Mean Corpuscular HGB Conc 32.2 g/dl (32-36); Mean Corpuscular Hemoglobin 27.3 pg (26-34); Mean Corpuscular Volume 84.8 fl (80-100); Mean Platelet Volume 9.6 fl (7.4-10.4); Monocytes Absolute Auto 0.5 K/mm3 (0.1-0.6); Monocytes Percent Auto 6.4 % (2.6-8.5); Neutrophils Absolute Auto 5.5 K/mm3 (1.3-6.7); Neutrophils Percent Auto 69.1 % (45.5-73.1); Platelet Count Result 273 k/mm3 (150-375); Red Blood Count 3.15 M/mm3 (4.6-6.20); Red Cell Distribution Width 15.3 % (11.5-14.5); White Blood Count 7.9 K/mm3 (4.5-10.0)
[2023-11-13 11:24] LABS: Alanine Aminotransferase 19 U/L (6-50); Albumin Level 4.1 g/dL (3.5-5.1); Alkaline Phosphatase 103 U/L (38-126); Anion Gap 20 mmol/L (8-16); Aspartate Amino Transferase 13 U/L (17-59); Bilirubin,Total 0.5 mg/dL (0.2-1.3); Blood Urea Nitrogen > 120 mg/dL (9-20); Calcium 8.3 mg/dL (8.4-10.2); Carbon Dioxide 12 mmol/L (22-30); Chloride 103 mmol/L (98-107); Glucose 106 mg/dL (65-110); Lipase 385 U/L (23-300); Potassium 4.5 mmol/L (3.4-5.0); Sodium 135 mmol/L (137-145)
[2023-11-13 12:10] LABS: Estimated Glomerular Filt Rate 3
--- NOTE | 2023-11-13 12:34 | ED.GENADULT ---
HPI - General Adult General Chief complaint: Nausea/Vomiting/Diarrhea Stated complaint: n/v/d Time Seen by Provider: 11/13/23 11:48 History of Present Illness HPI narrative: 63 old male present to the emergency department for evaluation of multiple complaints including nausea vomiting and milky colored urine. Patient states the symptoms have been ongoing for the last few weeks. Patient does report history of enlarged prostate and reports he does take tamsulosin but does not have follow-up with Urology. Patient does have recent history of urinary retention and hydronephrosis and patient has been seen by a urology. Patient does have longstanding history of noncompliance. Patient has previously been on finasteride and Flomax. Related Data Home Medications Medication Instructions Recorded Confirmed acetaminophen 500 mg tablet 500 mg PO QID PRN Pain 07/30/23 11/13/23 Allergies Allergy/AdvReac Type Severity Reaction Status Date / Time No Known Allergies Allergy Verified 11/13/23 17:01 Review of Systems Review of Systems: All systems reviewed & are unremarkable except as noted in HPI and below PMFSH Past Medical History Medical History (Updated 11/13/23 @ 18:41 by Curry Daley MD) Benign prostate hyperplasia Bipolar disorder Chronic kidney disease COPD with emphysema Skin cancer Tobacco dependence Surgical History Surgical History History of tonsillectomy Status post surgical removal of malignant neoplasm of skin From his face and now has a growth on his nose. Family History Family History Other Family history non-contributory Social History Social History (Updated 11/13/23 @ 15:38 by Yadira Caicedo PA-C) Social History: Surrogate medical decision maker: Ari Giron, daughter. Code status: Full code. Smoking packs per day: 1 Smoking cigarettes per day: 20.0 Years smoked: 49 Smoking pack-years: 49.00 Smoking status: Current every day smoker Tobacco type: cigarettes Second hand tobacco smoke exposure: Yes Alcohol intake: never Substance use: never Substance use type: does not use Do You Feel Safe in your Home?: Yes Lack of Transportation: YES Lack of Food: Often True Current Housing: I Have Housing Concerned About Future Housing: YES Difficulty Paying Gas/Electric Bills: YES Difficulty Paying for Meds: YES Currently Unemployed: YES Education: High School Diploma/GED Difficulty w/ Childcare or Family Care: No Additional living arrangements comments: Lives in [place]. Additional occupation/education comments: Works at a local [employer] Spiritual care concerns: No Exam Narrative: APPEARANCE: Well appearing, no pain, no distress, well-nourished. HEAD: normocephalic, atraumatic. EYES: PERRLA/EOMI, conjunctivae clear. NOSE: Normal no drainage EARS:TMS clear with good light reflex. THROAT: Pharynx clear, no exudate. NECK: Supple. No adenopathy, no masses. RESPIRATORY: Airway patent, respirations nonlabored. Clear to auscultation bilaterally, no rales, rhonchi, wheezing. CARDIOVASCULAR: Regular rate and rhythm without murmurs rubs or gallops. ABDOMINAL: Soft, nontender, nondistended, normal bowel sounds MUSCULOSKELETAL: Moves all extremities. Strength/ROM intact, No edema, No calf tenderness. NEURO: Alert. Cranial nerves II through XII intact. Grossly intact SKIN: Lesion to left lateral nose Course Course Emergency Course: Patient was admitted for BRYAN and urinary retention along with urinary tract infection. Nephrology was consulted Vital Signs Vital signs: Vital Signs Temperature 98.1 F 11/13/23 10:29 Pulse Rate 102 H 11/13/23 10:29 Respiratory Rate 16 11/13/23 10:29 Blood Pressure 117/98 H 11/13/23 10:29 Pulse Oximetry 96 11/13/23 10:29 Temperature 97.2 F L 11/13/23 16:15 Pulse Rate 130 H
--- NOTE | 2023-11-13 12:39 | PC.NURSE ---
bladder scan at this time. found 100ml
[2023-11-13 13:38] LABS: Appearance Urine Turbid (Clear); Bacteria Urine 4+ /hpf; Bilirubin Urine Negative (Negative); Blood Urine 2+ (Negative); Color Urine Yellow (Yellow); Glucose Urine UA Negative (Negative); Ketones Urine Negative (Negative); Leukocyte Esterase Ur 3+ LEU/UL (Negative); Need Manual Microscopic Reviewed; Nitrate Urine Negative (Negative); Protein Urine 2+ mg/dL (Negative); RBC Urine 0-2 /hpf (0-2); Specific Grav Ur 1.009 (1.001-1.035); Squamous Epithelial Cell Urine Moderate /hpf (Few); Urobilinogen Urine 0.2 mg/dL (<2.0); WBC Clumps Urine Present /HPF; WBC Urine >100 /hpf
[2023-11-13 13:41] LABS: Add Urine Microscopic? YES
[2023-11-13] MEDS: SODIUM CHLORIDE 0.9% IV 1,000 ML 999 ML IV CONT (14:07)
--- NOTE | 2023-11-13 15:12 | PM.IMHP ---
H&P: HPI History of Present Illness Date/Time: 11/13/23 15:30 Chief Complaint: Nausea, vomiting, and milk colored urine. Narrative: This is a 63-year-old male smoker with benign prostatic hyperplasia, chronic bladder outlet obstruction, chronic kidney disease, history of noncompliance with medical treatment and regimen, bipolar disorder, and chronic obstructive pulmonary disease who presented to the emergency department with complaints of nausea, vomiting, and milk colored urine. The patient provides the following history. He has not been feeling well for several weeks with on going nausea and occasional nonbloody and nonbilious emesis. He reports that his urine is the color of milk and he has had some dysuria as well. He has had some episodes of brief confusion and reports pruritus, decreased appetite, and fine tremors of the hands. He denies fever, chills, sweats, cold and flu symptoms, chest pain, shortness of breath, hematuria, abdominal pain, and back pain. In the ED: He was afebrile on arrival with stable blood pressures. Labs were significant for a WBC count of 7.9, hemoglobin 8.6, sodium 135, potassium 4.5, chloride 103, carbon dioxide 12, anion gap 20, BUN greater than 120, creatinine 18.00, total protein 9.0. Urine was positive for 2+ protein, 2+ blood, 3+ leukocyte esterase, greater than 100 WBC, WBC clumps, moderate squamous cells, 4+ bacteria. CT of the abdomen and pelvis showed severely enlarged prostate gland with bladder wall thickening, moderate to severe bilateral hydronephrosis, nonobstructing left nephrolithiasis. Rubio catheter was inserted yielded 750 mL of urine. He received a L normal saline bolus, 1 g ceftriaxone, and he is being admitted in this setting for further treatment and evaluation. After admission to the floor, the patient began complaining of severe spasms in his penis from the Rubio catheter placement. He now has a small amount of blood in his urine as well. He denies that the Rubio catheter insertion was traumatic. He goes on to say that he was hospitalized within the last couple of months at [facility] with similar findings and he had a cystoscopy at that time and there were plans for possible what sounds like TURP but the patient reports that he never heard back from anybody in no procedure was done. He states that he has been taking tamsulosin though I do not see that has been filled since July. Review of Systems Review of Systems: Twelve systems were reviewed and are negative except for as per HPI. [facility] Past Medical History Medical History Benign prostate hyperplasia Bipolar disorder Chronic kidney disease COPD with emphysema Skin cancer Tobacco dependence Surgical History Surgical History History of tonsillectomy Status post surgical removal of malignant neoplasm of skin From his face and now has a growth on his nose. Family History Family History Other Family history non-contributory Social History Social History Social History: Surrogate medical decision maker: Ari Giron, daughter. Code status: Full code. Smoking packs per day: 1 Smoking cigarettes per day: 20.0 Years smoked: 49 Smoking pack-years: 49.00 Smoking status: Current every day smoker Tobacco type: cigarettes Second hand tobacco smoke exposure: Yes Alcohol intake: never Substance use: never Substance use type: does not use Do You Feel Safe in your Home?: Yes Lack of Transportation: YES Lack of Food: Often True Current Housing: I Have Housing Concerned About Future Housing: YES Difficulty Paying Gas/Electric Bills: YES Difficulty Paying for Meds: YES Currently Unemployed: YES Education: High School Diploma/GED Difficulty w/ Childca
[2023-11-13 16:15] VITALS: BP 149/98; PULSE 130; RESP 19; TEMP 36.2; O2SAT 98
[2023-11-13 16:21] LABS: Fractional Inspired Oxygen 21 %; HCO3 VBG 13.3 mEq/l (24.0-30.0)
[2023-11-13 16:23] LABS: PO2 VBG < 27.0 mmHg (35.0-45.0)
[2023-11-13 16:27] LABS: Device ROOM AIR; pH VBG 7.197 (7.300-7.400)
--- NOTE | 2023-11-13 16:38 | ADMGEN ---
This patient, Andrey Giron, was admitted to [facility] Surg Room 307-02. Patient/family oriented to hospital policies and general routines including ID bracelet, bed and alarms, visiting hours, pain management, procedures, bathroom and other care routines, personal items, smoking policy, room service/diet, and visiting hours. Information on how to activate the Rapid Response Team has been discussed. Patient/Family are encouraged to report perceived risks to care and to ask questions if they do not understand what they are told or what they should do.
[2023-11-13 16:53] LABS: Reticulocyte Hemoglobin Conten 32.6 pg (28.2-35.7); Reticulocyte Percent 1.32 % (0.7-4.3); Reticulocytes Absolute 0.04 M/mm3 (0.02-0.1)
[2023-11-13 17:03] LABS: Magnesium 1.8 mg/dL (1.6-2.3); Phosphorus 10.2 mg/dL (2.5-4.5)
--- NOTE | 2023-11-13 17:05 | PC.NURSE ---
patient states he is no longer taking other medications that were ordered for atleast a month because he has not had a prescripition for it so he stopped taking it all, and did not choose to see if pcp would like him to continue states only take proscar and acetaminophen
[2023-11-13 17:07] LABS: Anion Gap 20 mmol/L (8-16); Calcium 8.3 mg/dL (8.4-10.2); Carbon Dioxide 11 mmol/L (22-30); Chloride 105 mmol/L (98-107); Glucose 112 mg/dL (65-110); Iron 89 ug/dL (49-181); Potassium 5.2 mmol/L (3.4-5.0); Sodium 136 mmol/L (137-145)
[2023-11-13 17:16] LABS: Estimated CRCL calculation 4 ml/min; Estimated Glomerular Filt Rate 3; Percent Iron Saturation 38 % (20-50)
[2023-11-13 17:18] LABS: Blood Urea Nitrogen 145 mg/dL (9-20)
[2023-11-13] MEDS: SODIUM CHLORIDE 0.9% IV 1,000 ML 125 ML IV CONT (17:48)
[2023-11-13 19:18] LABS: Folic Acid 7.3 ng/mL (2.76->20)
[2023-11-13] MEDS: ACETAMINOPHEN 325 MG TABLET 650 MG PO (19:59)
[2023-11-13 22:00] VITALS: BP 154/94; PULSE 90; RESP 22; TEMP 36.6; O2SAT 99
[2023-11-13] MEDS: oxyBUTYnin CHLORIDE 5 MG TABLET PO (22:02)
[2023-11-13] MEDS: HYDROcodone/acetaminophen (*CRX) 5-325 MG TABLET 1 TAB PO (23:09)
[2023-11-13] MEDS: SODIUM BICARBONATE 8.4% 150 MEQ in DEXTROSE 5% 1,000 ML 950 ML 100 MEQ IV CONT (23:12)
[2023-11-14] VITALS (9 sets, daily range): BP systolic 116–156; BP diastolic 57–87; PULSE 65–108; RESP 17–26; TEMP 36.2–36.4; O2SAT 96–100
[2023-11-14] MEDS: HYDROcodone/acetaminophen (*CRX) 5-325 MG TABLET 1 TAB PO (04:56)
[2023-11-14] MEDS: LIDOCAINE HCL 2% GEL UROJET 10 ML PKG MUCOUS MEM (04:56)
[2023-11-14] MEDS: WATER FOR IRRIGATION, STERILE 1,000 ML BOTTLE 1000 ML (04:58)
[2023-11-14 05:47] LABS: Hematocrit 26.6 % (42.0-52.0); Hemoglobin 8.2 g/dL (14.0-18.0); Mean Corpuscular HGB Conc 30.8 g/dl (32-36); Mean Corpuscular Hemoglobin 27.7 pg (26-34); Mean Corpuscular Volume 89.9 fl (80-100); Mean Platelet Volume 9.9 fl (7.4-10.4); Platelet Count Result 209 k/mm3 (150-375); Red Blood Count 2.96 M/mm3 (4.6-6.20); Red Cell Distribution Width 15.4 % (11.5-14.5); White Blood Count 7.9 K/mm3 (4.5-10.0)
[2023-11-14 06:52] LABS: Anion Gap 19 mmol/L (8-16); Calcium 7.9 mg/dL (8.4-10.2); Carbon Dioxide 14 mmol/L (22-30); Chloride 101 mmol/L (98-107); Estimated CRCL calculation 4 ml/min; Estimated Glomerular Filt Rate 3; Glucose 123 mg/dL (65-110); Potassium 4.8 mmol/L (3.4-5.0); Sodium 134 mmol/L (137-145)
[2023-11-14 07:34] LABS: Blood Urea Nitrogen 144 mg/dL (9-20)
--- NOTE | 2023-11-14 07:42 | ECG_ITS ---
Measurements Intervals [place] Rate: 91 P: 27 MS: 132 QRS: 30 QRSD: 86 T: 60 QT: 330 QTc: 407 Interpretive Statements SINUS RHYTHM LOW QRS VOLTAGE OTHERWISE UNREMARKABLE ECG COMPARED TO ECG 03/14/2023 10:08:01 T-WAVE INVERSION HAS RESOLVED Electronically Signed On 11-14-2023 18:17:14 BOTTOM BRUSHER by Albino Flaherty M.D.
[2023-11-14 08:20] LABS: Troponin I < 0.012 ng/mL (0.000-0.034)
[2023-11-14] MEDS: FINASTERIDE 5 MG TABLET PO (08:33)
[2023-11-14] MEDS: TAMSULOSIN HCL 0.4 MG CAPSULE PO (08:33)
[2023-11-14 08:50] LABS: Fractional Inspired Oxygen 21 %; HCO3 VBG 16.3 mEq/l (24.0-30.0); PCO2 VBG 35.4 mmHg (42.0-48.0); pH VBG 7.281 (7.300-7.400)
[2023-11-14 08:53] LABS: Device ROOM AIR; PO2 VBG < 27.0 mmHg (35.0-45.0)
--- NOTE | 2023-11-14 09:53 | WPDURCON ---
Assessment and Plan Assessment and plan (1) Gross hematuria: Code(s): R31.0 - Gross hematuria Status: Acute Assessment and Plan: Continue CBI, titrate to keep urine clear No evidence of clots in the bladder on CT or renal/bladder US (2) Abnormal urinalysis: Code(s): R82.90 - Unspecified abnormal findings in urine Status: Acute Assessment and Plan: Continue empiric antibiotics while awaiting urine culture (3) Benign prostate hyperplasia: Code(s): N40.0 - Benign prostatic hyperplasia without lower urinary tract symptoms Status: Acute Assessment and Plan: Severely enlarged prostate Continue tamsulosin and finasteride Has previously been recommended for PAE; he has been noncompliant with follow up (4) Bilateral hydronephrosis: Code(s): N13.30 - Unspecified hydronephrosis Status: Acute Assessment and Plan: Moderate bilateral hydronephrosis noted on imaging Likely due to chronic outlet obstruction Previously unable to have stents as ureteral orifices were not visible (5) Acute on chronic kidney failure: Code(s): N17.9 - Acute kidney failure, unspecified; N18.9 - Chronic kidney disease, unspecified Status: Acute Assessment and Plan: Creatinine elevated to 18.3 on arrival Declined to 17.3 today Continue to follow creatinine trends Urology Consult Note HPI Date Seen: 11/14/23 Requesting Physician: Liban Hayes MD Primary Care Provider: Ruben Gonzalez MD Consult Narrative Narrative: Andrey Giron is a 63 year old male with a history of BPH with chronic outlet obstruction and noncompliance who is being seen in consultation for evaluation of gross hematuria. He presented to the ER on 11/13/23 with complaints of milky urine. He reports no hematuria prior to arrival and states he was voiding without difficulty. CT on arrival showed enlarged prostate with outlet obstruction, moderate to severe bilateral hydronephrosis, and nonobstructing left renal stone. His hemoglobin was low at 8.6 and creatinine was markedly elevated to 18. His UA was grossly abnormal and a urine culture is pending. His prostatomegaly has been known for some time and he has been recommended for PAE but has not followed up in the office. He recently had cysto with clot evacuation in 03/2023 and 05/2023. At the time of my evaluation, his urine is bloody with small clots. I manually irrigated the catheter at the bedside with return of only a few small clots and urine promptly became clear-light pink. He does complain of bladder spasms that are improved with oxybutynin. Review of Systems Review of Systems: All systems reviewed & are unremarkable except as noted in HPI and below [facility] Past Medical History Medical History Benign prostate hyperplasia Bipolar disorder Chronic kidney disease COPD with emphysema Skin cancer Tobacco dependence Surgical History Surgical History History of tonsillectomy Status post surgical removal of malignant neoplasm of skin From his face and now has a growth on his nose. Family History Family History Other Family history non-contributory Social History Social History Social History: Surrogate medical decision maker: Ari Giron, daughter. Code status: Full code. Smoking packs per day: 1 Smoking cigarettes per day: 20.0 Years smoked: 49 Smoking pack-years: 49.00 Smoking status: Current every day smoker Tobacco type: cigarettes Second hand tobacco smoke exposure: Yes Alcohol intake: never Substance use: never Substance use type: does not use Do You Feel Safe in your Home?: Yes Lack of Transportation: YES Lack of Food: Often True [facility]
--- NOTE | 2023-11-14 10:27 | PM.CNNEP ---
Assessment and Plan Assessment and plan (1) Acute kidney injury: Code(s): N17.9 - Acute kidney failure, unspecified Status: Acute Assessment and Plan: due to obstructive uropathy/urinary retention evidence of bilateral hydronephrosis by CT imaging in ER gutiérrez catheter in place follow trend of renal function and UOP (2) Stage 3b chronic kidney disease: Code(s): N18.32 - Chronic kidney disease, stage 3b Status: Chronic Assessment and Plan: last creatinine was 1.9mg/dl in July 2023 will try to obtain records from [facility] given recent admission there presumably due to mulitple bouts of BRYAN/ARF in association with obstructive uropathy (3) Bilateral hydronephrosis: Code(s): N13.30 - Unspecified hydronephrosis Status: Acute Assessment and Plan: as noted on admission imaging likely secondary to chronic outlet obstruction unable to have stents in the past as ureteral orifices were not visible during cystoscopy Urology following (4) Metabolic acidosis: Code(s): E87.20 - Acidosis, unspecified Status: Acute Assessment and Plan: likely secondary to BRYAN/ARF on bicarbonate gtt to compensate follow CO2 levels (5) Urinary tract infection: Code(s): N39.0 - Urinary tract infection, site not specified Status: Acute Assessment and Plan: admission UA highly suggestive follow-up on urine culture on antibiotics (6) Anemia: Code(s): D64.9 - Anemia, unspecified Status: Acute Assessment and Plan: suspect related it severe BRYAN/ARF likely some contributions with hematuria follow trend of H/H (7) Benign prostate hyperplasia: Code(s): N40.0 - Benign prostatic hyperplasia without lower urinary tract symptoms Status: Chronic Assessment and Plan: chronic and long standing issue (as noted by his previous hospitalizations) continue tamsulosin and finasteride compliance with follow-up with this issue is an ongoing issue Greater than 20 minutes was spent in reviewing his extensive electronic medical records from previous hospitalizations both here at [facility] as well as other institutions in conjunction with my personal experience taking care of the patient for his recurrent bouts of acute kidney injury/ acute renal failure as well. I will continue follow patient with you while he remains hospitalized and make further recommendations as deemed necessary. Thank you for allowing me to participate in care this patient. History of Present Illness Reason for Consult Consult date: 11/14/23 Reason for consult: acute renal failure (on chronic kidney disease) Chief Complaint Chief complaint: Urinary tension, urinary tract infection, acute ki History of Present Illness Narrative: The patient is a 63-year-old male with a past medical history as outlined below who presented to [facility] Emergency room with complaints of nausea and vomiting along with milk colored urine. The patient reports that he has not been feeling very well for last few weeks if not longer. In that time frame, he has had on and off nausea in association with vomiting that was nonbloody and nonbilious. Associated with these symptoms included milky urine in association with dysuria. He also reports problems with itching, decreased appetite, and a tremor in his hands. He denies any overt fevers, chills, diaphoresis, chest pain, shortness of breath, hematuria, abdominal pain, or viral symptoms. Given the persistence of these symptoms, he came to the emergency room for further assessment Workup and evaluation emergency room demonstrated the patient be hemodynamically stable and in mild distress. Routine blood test demonstrated a normal white blood cell count and relative anemia but his chemistry showed acute kidney injury/acute renal failure with a BUN greater than 120 in association with a c
--- NOTE | 2023-11-14 10:27 | P.CONNP_ITS ---
Assessment and Plan Assessment and plan (1) Acute kidney injury: Code(s): N17.9 - Acute kidney failure, unspecified Status: Acute Assessment and Plan: * due to obstructive uropathy/urinary retention * evidence of bilateral hydronephrosis by CT imaging in ER * gutiérrez catheter in place * follow trend of renal function and UOP (2) Stage 3b chronic kidney disease: Code(s): N18.32 - Chronic kidney disease, stage 3b Status: Chronic Assessment and Plan: * last creatinine was 1.9mg/dl in July 2023 * will try to obtain records from [facility] given recent admission there * presumably due to mulitple bouts of BRYAN/ARF in association with obstructive uropathy (3) Bilateral hydronephrosis: Code(s): N13.30 - Unspecified hydronephrosis Status: Acute Assessment and Plan: * as noted on admission imaging * likely secondary to chronic outlet obstruction * unable to have stents in the past as ureteral orifices were not visible during cystoscopy * Urology following (4) Metabolic acidosis: Code(s): E87.20 - Acidosis, unspecified Status: Acute Assessment and Plan: * likely secondary to BRYAN/ARF * on bicarbonate gtt to compensate * follow CO2 levels (5) Urinary tract infection: Code(s): N39.0 - Urinary tract infection, site not specified Status: Acute Assessment and Plan: * admission UA highly suggestive * follow-up on urine culture * on antibiotics (6) Anemia: Code(s): D64.9 - Anemia, unspecified Status: Acute Assessment and Plan: * suspect related it severe BRYAN/ARF * likely some contributions with hematuria * follow trend of H/H (7) Benign prostate hyperplasia: Code(s): N40.0 - Benign prostatic hyperplasia without lower urinary tract symptoms Status: Chronic Assessment and Plan: * chronic and long standing issue (as noted by his previous hospitalizations) * continue tamsulosin and finasteride * compliance with follow-up with this issue is an ongoing issue Greater than 20 minutes was spent in reviewing his extensive electronic medical records from previous hospitalizations both here at [facility] as well as other institutions in conjunction with my personal experience taking care of the patient for his recurrent bouts of acute kidney injury/ acute renal failure as well. I will continue follow patient with you while he remains hospitalized and make further recommendations as deemed necessary. Thank you for allowing me to participate in care this patient. History of Present Illness Reason for Consult Consult date: 11/14/23 Reason for consult: acute renal failure (on chronic kidney disease) Chief Complaint Chief complaint: Urinary tension, urinary tract infection, acute ki History of Present Illness Narrative: The patient is a 63-year-old male with a past medical history as outlined below who presented to [facility] Emergency room with complaints of nausea and vomiting along with milk colored urine. The patient reports that he has not been feeling very well for last few weeks if not longer. In that time frame, he has had on and off nausea in association with vomiting that was nonbloody and nonbilious. Associated with these symptoms included milky urine in association with dysuria. He also reports problems with itching, decreased appetite, and a tremor in his hands. He denies any overt fevers, chills, diaphoresis, chest pain, shortness of breath, hematuria, abdominal pain, or viral symptoms. Give
[2023-11-14] MEDS: oxyBUTYnin CHLORIDE 5 MG TABLET PO (14:09)
[2023-11-14] MEDS: SODIUM BICARBONATE 8.4% 150 MEQ in DEXTROSE 5% 1,000 ML 950 ML 100 MEQ IV CONT (14:09)
--- NOTE | 2023-11-14 17:09 | PM.IMPN ---
Progress Note: A&P Assessment and Plan (1) Noncompliance: Code(s): Z91.199 - Patient's noncompliance with other medical treatment and regimen due to unspecified reason Status: Acute (2) Urinary tract infection: Code(s): N39.0 - Urinary tract infection, site not specified Status: Acute (3) Urinary retention: Code(s): R33.9 - Retention of urine, unspecified Status: Acute (4) Hydronephrosis: Code(s): N13.30 - Unspecified hydronephrosis Status: Acute (5) Hematuria: Code(s): R31.9 - Hematuria, unspecified Status: Acute Plan Patient has been lost to follow-up and noncompliant with recommendations. He presents with acute on chronic outlet obstruction bilateral hydronephrosis hematuria and UTI. Continue antibiotics, Urology consultation, bladder irrigation, Nephrology consultation for acute kidney injury which is beginning to improve. Continue to monitor anemia as well. Pending urine culture. Repeat VBG in the a.m. to assess acid-base status. 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 Follow-up will be difficult. Continue Education and enforcement. He seemed overly concerned with a chronic right thigh burning sensation which has been there for years. Physical examination unrevealing. Check pelvic hip and knee x-ray. SCDs. Full code. Subjective Date/time seen: 11/14/23 17:09 Interval history: No acute overnight events. He is very concerned about his right thigh burning pain which has been there for years and no one has addressed. Review of Systems Review of Systems: All systems reviewed & are unremarkable except as noted in HPI and below (Subjective) Exam Const: General: comfortable and no acute distress Eyes: Pupils: Equal, round and reactive pupils present Neck: Neck: supple Resp: Effort & Inspection: normal respiratory effort Auscultation: clear to auscultation bilaterally Cardio: Rate: regular rate Rhythm: regular rhythm GI: GI Palp: Yes Soft to palpation and No Tenderness to palpation present (GI) Urinary Catheter: Urinary Catheter: patent and draining Extrem: General: no edema Objective Data Vital Signs Vital Signs: Vital Signs - 24 hr 11/13/23 18:09 11/13/23 20:00 11/13/23 22:00 Temperature 97.9 F Pulse Rate 90 Respiratory Rate 22 H Blood Pressure 154/94 H Pulse Oximetry 99 Oxygen Delivery Room Air Room Air 11/14/23 04:00 11/14/23 00:00 11/14/23 05:32 Temperature 97.6 F Pulse Rate 106 H 102 H 108 H Respiratory Rate 21 H Blood Pressure 156/87 H Pulse Oximetry 100 Oxygen Delivery 11/14/23 08:10 11/14/23 14:00 11/14/23 12:00 Temperature 97.2 F L Pulse Rate 108 H 88 Respiratory Rate 26 H Blood Pressure 121/76 Pulse Oximetry 98 Oxygen Delivery 11/14/23 16:00 Temperature Pulse Rate 91 Respiratory Rate Blood Pressure Pulse Oximetry Oxygen Delivery Intake/Output Intake/Output: Intake & Output 11/11/23 11/12/23 11/13/23 11/14/23 23:59 23:59 23:59 23:59 Intake Total 1530 3740 Output Total 750 4300 Balance 780 -560 Meds/Results Medications: Active Medications Generic Name Dose Route Start Last Admin Trade Name Freq PRN Reason Stop Dose Admin Acetaminophen 650 mg 11/13/23 16:16 11/13/23 19:59 Acetaminophen 325 Mg Tablet PO 650 mg Q6H PRN Administration Mild Pain (1-3) or Fever Finasteride 5 mg 11/14/23 09:00 11/14/23 08:33 Finasteride 5 Mg Tablet PO 5 mg QAM CHRIS Administration Ceftriaxone Sodium 1 gm in 50 mls @ 100 mls/hr 11/14/23 14:00 11/14/23 14:33 Rocephin 1 Gm/Ns 50 Ml IVPB Infused Q24H CHRIS Infusion Sodium Bicarbonate 150 meq/ 1,100 mls @ 100 mls/hr 11/13/23 21:55 11/14/23 14:09 Dextrose IV CONT 100 mls/hr .Q11H CHRIS Administration Oxybutynin Chloride 5 mg 11/14/23 12:43 11/14/23 14:09 Oxybutynin Chloride 5 Mg Tablet PO 5 mg TID PRN Administration
[2023-11-14] MEDS: ACETAMINOPHEN 325 MG TABLET 650 MG PO (17:22)
[2023-11-14] MEDS: ONDANSETRON INJ 4 MG/2 ML VIAL IV PUSH (22:52)
[2023-11-15] VITALS (14 sets, daily range): BP systolic 109–137; BP diastolic 54–77; PULSE 62–100; RESP 14–16; TEMP 36.1–36.6; O2SAT 93–97
[2023-11-15 06:14] LABS: Basophils Absolute Auto 0.1 K/mm3 (0.0-0.1); Eosinophils Absolute Auto 0.3 K/mm3 (0-0.3); Eosinophils Percent Auto 4.9 % (0-4.4); Hematocrit 21.2 % (42.0-52.0); Immature Granulocyte Absolute 0.03 K/mm3 (0.00-0.031); Immature Granulocyte Percent A 0.5 % (0-0.5); Lymphocytes Absolute Auto 0.91 K/mm3 (0.9-3.2); Mean Corpuscular HGB Conc 32.1 g/dl (32-36); Mean Corpuscular Hemoglobin 27.2 pg (26-34); Mean Corpuscular Volume 84.8 fl (80-100); Mean Platelet Volume 9.9 fl (7.4-10.4); Monocytes Absolute Auto 0.3 K/mm3 (0.1-0.6); Monocytes Percent Auto 5.3 % (2.6-8.5); Neutrophils Absolute Auto 4.5 K/mm3 (1.3-6.7); Neutrophils Percent Auto 73.3 % (45.5-73.1); Platelet Count Result 174 k/mm3 (150-375); Red Cell Distribution Width 15.4 % (11.5-14.5); White Blood Count 6.1 K/mm3 (4.5-10.0)
[2023-11-15] MEDS: SODIUM BICARBONATE 8.4% 150 MEQ in DEXTROSE 5% 1,000 ML 950 ML 100 MEQ IV CONT (06:16)
[2023-11-15 06:21] LABS: Hemoglobin 6.8 g/dL (14.0-18.0)
[2023-11-15 06:26] LABS: Alanine Aminotransferase 13 U/L (6-50); Albumin Level 3.3 g/dL (3.5-5.1); Alkaline Phosphatase 71 U/L (38-126); Anion Gap 15 mmol/L (8-16); Aspartate Amino Transferase 9 U/L (17-59); Bilirubin,Total 0.4 mg/dL (0.2-1.3); Blood Urea Nitrogen > 120 mg/dL (9-20); Carbon Dioxide 24 mmol/L (22-30); Chloride 96 mmol/L (98-107); Glucose 143 mg/dL (65-110); Magnesium 1.7 mg/dL (1.6-2.3); Potassium 3.7 mmol/L (3.4-5.0); Sodium 135 mmol/L (137-145)
[2023-11-15 06:31] LABS: Fractional Inspired Oxygen 21 %; HCO3 VBG 23.1 mEq/l (24.0-30.0); PCO2 VBG 38.4 mmHg (42.0-48.0); PO2 VBG 31.2 mmHg (35.0-45.0); pH VBG 7.397 (7.300-7.400)
[2023-11-15 06:32] LABS: Device ROOM AIR
[2023-11-15 06:39] LABS: Estimated CRCL calculation 4 ml/min; Estimated Glomerular Filt Rate 3
[2023-11-15] MEDS: ONDANSETRON INJ 4 MG/2 ML VIAL IV PUSH (09:22)
--- NOTE | 2023-11-15 09:36 | P.PNNP_ITS ---
Progress Note: A&P Assessment and Plan (1) Acute kidney injury: Code(s): N17.9 - Acute kidney failure, unspecified Status: Acute Assessment and Plan: * due to obstructive uropathy/urinary retention * evidence of bilateral hydronephrosis by CT imaging in ER * gutiérrez catheter in place * follow trend of renal function and UOP (2) Stage 3b chronic kidney disease: Code(s): N18.32 - Chronic kidney disease, stage 3b Status: Chronic Assessment and Plan: * last creatinine was 1.9mg/dl in July 2023 * will try to obtain records from [facility] given recent admission there * presumably due to mulitple bouts of BRYAN/ARF in association with obstructive uropathy (3) Bilateral hydronephrosis: Code(s): N13.30 - Unspecified hydronephrosis Status: Acute Assessment and Plan: * as noted on admission imaging * likely secondary to chronic outlet obstruction * unable to have stents in the past as ureteral orifices were not visible during cystoscopy * Urology following (4) Metabolic acidosis: Code(s): E87.20 - Acidosis, unspecified Status: Acute Assessment and Plan: * likely secondary to BRYAN/ARF * on bicarbonate gtt to compensate with improvement noted * wean off as tolerated * follow CO2 levels (5) Urinary tract infection: Code(s): N39.0 - Urinary tract infection, site not specified Status: Acute Assessment and Plan: * admission UA highly suggestive * follow-up on urine culture - GNB noted * on antibiotics (6) Anemia: Code(s): D64.9 - Anemia, unspecified Status: Acute Assessment and Plan: * suspect related to severe BRYAN/ARF * likely some contributions from hematuria * PRBC per protocol * follow trend of H/H (7) Benign prostate hyperplasia: Code(s): N40.0 - Benign prostatic hyperplasia without lower urinary tract symptoms Status: Chronic Assessment and Plan: * chronic and long standing issue (as noted by his previous hospitalizations) * continue tamsulosin and finasteride * compliance with follow-up with this issue is an ongoing issue Will continue to follow. Subjective Date/time seen: 11/15/23 09:36 Interval history: Follow-up for acute kidney injury/acute renal failure on chronic kidney disease. No real significant improvement in renal function by trend of labs; complaining of nausea in association with dry heaves this AM; hematuria better if not resolved with CBI; noted drop in H/H by AM labs - PRBC transfusion ordered; no other acute issues/events overnight or earlier this morning. Exam Narrative: General: WD/WN male in NAD Heart: normal S1 and S2; no rub Lungs: clear to auscultation Abdomen: soft, nontender, nondistended, positive bowel sounds Extremities: no cyanosis or clubbing; noedema Skin: warm and dry Objective Data Vital Signs Vital Signs: Vital Signs Temp Pulse Resp BP Pulse Ox O2 Del Method 11/15/23 08:00 65 11/15/23 05:28 97.7 F 72 16 121/69 97 11/15/23 04:00 78 11/15/23 00:00 63 11/14/23 20:00 81 11/14/23 20:00 Room Air 11/14/23 20:11 97.4 F L 65 17 116/57 L 96 11/14/23 16:00 91 11/14/23 12:00 88 11/14/23 14:00 97.2 F L 26 H 121/76 98
--- NOTE | 2023-11-15 09:36 | PM.PNNEP ---
Progress Note: A&P Assessment and Plan (1) Acute kidney injury: Code(s): N17.9 - Acute kidney failure, unspecified Status: Acute Assessment and Plan: due to obstructive uropathy/urinary retention evidence of bilateral hydronephrosis by CT imaging in ER gutiérrez catheter in place follow trend of renal function and UOP (2) Stage 3b chronic kidney disease: Code(s): N18.32 - Chronic kidney disease, stage 3b Status: Chronic Assessment and Plan: last creatinine was 1.9mg/dl in July 2023 will try to obtain records from [facility] given recent admission there presumably due to mulitple bouts of BRYAN/ARF in association with obstructive uropathy (3) Bilateral hydronephrosis: Code(s): N13.30 - Unspecified hydronephrosis Status: Acute Assessment and Plan: as noted on admission imaging likely secondary to chronic outlet obstruction unable to have stents in the past as ureteral orifices were not visible during cystoscopy Urology following (4) Metabolic acidosis: Code(s): E87.20 - Acidosis, unspecified Status: Acute Assessment and Plan: likely secondary to BRYAN/ARF on bicarbonate gtt to compensate with improvement noted wean off as tolerated follow CO2 levels (5) Urinary tract infection: Code(s): N39.0 - Urinary tract infection, site not specified Status: Acute Assessment and Plan: admission UA highly suggestive follow-up on urine culture - GNB noted on antibiotics (6) Anemia: Code(s): D64.9 - Anemia, unspecified Status: Acute Assessment and Plan: suspect related to severe BRYAN/ARF likely some contributions from hematuria PRBC per protocol follow trend of H/H (7) Benign prostate hyperplasia: Code(s): N40.0 - Benign prostatic hyperplasia without lower urinary tract symptoms Status: Chronic Assessment and Plan: chronic and long standing issue (as noted by his previous hospitalizations) continue tamsulosin and finasteride compliance with follow-up with this issue is an ongoing issue Will continue to follow. Subjective Date/time seen: 11/15/23 09:36 Interval history: Follow-up for acute kidney injury/acute renal failure on chronic kidney disease. No real significant improvement in renal function by trend of labs; complaining of nausea in association with dry heaves this AM; hematuria better if not resolved with CBI; noted drop in H/H by AM labs - PRBC transfusion ordered; no other acute issues/events overnight or earlier this morning. Exam Narrative: General: WD/WN male in NAD Heart: normal S1 and S2; no rub Lungs: clear to auscultation Abdomen: soft, nontender, nondistended, positive bowel sounds Extremities: no cyanosis or clubbing; noedema Skin: warm and dry Objective Data Vital Signs Vital Signs: Vital Signs Temp Pulse Resp BP Pulse Ox O2 Del Method 11/15/23 08:00 65 11/15/23 05:28 97.7 F 72 16 121/69 97 11/15/23 04:00 78 11/15/23 00:00 63 11/14/23 20:00 81 11/14/23 20:00 Room Air 11/14/23 20:11 97.4 F L 65 17 116/57 L 96 11/14/23 16:00 91 11/14/23 12:00 88 11/14/23 14:00 97.2 F L 26 H 121/76 98 Intake/Output Intake/Output: Intake & Output 11/12/23 11/13/23 11/14/23 11/15/23 23:59 23:59 23:59 23:59 Intake Total 1530 3980 2440 Output Total 750 5600 1000 Balance 780 -1620 1440 Meds/Results Medications: Active Medications Generic Name Dose Route Start Last Admin Trade Name Freq PRN Reason Stop Dose Admin Acetaminophen 650 mg 11/13/23 16:16 11/14/23 17:22 Acetaminophen 325 Mg Tablet PO 650 mg Q6H PRN Administration Mild Pain (1-3) or Fever Calcium Carbonate 500 mg 11/15/23 08:00 Calcium Carbonate (Oscal) 500 Mg Tablet PO 11/16/23 08:01 TIDWM CHRIS Finasteride 5 mg 11/14/23 09:00 11/14/23 08:3
[2023-11-15] MEDS: SODIUM CHLORIDE 0.9% IV 250 ML 30 ML IV CONT (10:00)
--- NOTE | 2023-11-15 12:40 | WPDUROPN2 ---
Progress Note: A&P Assessment and Plan (1) Gross hematuria: Code(s): R31.0 - Gross hematuria Status: Acute Assessment and Plan: Continue CBI, titrate to keep urine clear Urine is clear yellow today, can discontinue CBI if remaining clear No evidence of clots in the bladder on CT or renal/bladder US (2) Abnormal urinalysis: Code(s): R82.90 - Unspecified abnormal findings in urine Status: Acute Assessment and Plan: Continue empiric antibiotics while awaiting urine culture Preliminary urine culture with gram negative bacilli (3) Benign prostate hyperplasia: Code(s): N40.0 - Benign prostatic hyperplasia without lower urinary tract symptoms Status: Acute Assessment and Plan: Severely enlarged prostate Continue tamsulosin and finasteride Has previously been recommended for PAE; he has been noncompliant with follow up Will need some kind of outlet procedure. (4) Bilateral hydronephrosis: Code(s): N13.30 - Unspecified hydronephrosis Status: Acute Assessment and Plan: Moderate bilateral hydronephrosis noted on imaging which is a chronic finding due to outlet obstruction Not a candidate for ureteral stents as last cystoscopy ureteral orifices were not visible Nephrostomy tubes would be only access to upper tracts (5) Acute on chronic kidney failure: Code(s): N17.9 - Acute kidney failure, unspecified; N18.9 - Chronic kidney disease, unspecified Status: Acute Assessment and Plan: Creatinine elevated to 18.3 on arrival Declined to 17.5 today Continue to follow creatinine trends Subjective Subjective Date/Time Seen: 11/15/23 12:40 Interval history: Andrey is doing fair today. Complains of nausea and vomiting. Dry heaving during my encounter. Urine is clear, light yellow on very slow CBI. Creatinine is 17.5. WBC is 6.1. Hemoglobin declined to 6.8. Review of Systems Review of Systems: All systems reviewed & are unremarkable except as noted in HPI and below Exam Narrative: General: Awake, alert, comfortable, no acute distress HEENT: Normocephalic, atraumatic, sclerae anicteric Respiratory: Normal respiratory effort, no accessory muscle use Abdomen: Nondistended, soft, nontender : 3 way catheter draining clear yellow urine on slow drip CBI Skin: Facial skin cancer noted, warm and dry Neurologic: No focal neuro deficits noted Psychiatric: Appropriate mood and affect, judgment and insight intact Objective Data Vital Signs Vital Signs: Vital Signs - 24 hr 11/14/23 14:00 11/14/23 16:00 11/14/23 20:11 Temperature 97.2 F L 97.4 F L Pulse Rate 91 65 Respiratory Rate 26 H 17 Blood Pressure 121/76 116/57 L Pulse Oximetry 98 96 Oxygen Delivery 11/14/23 20:00 11/14/23 20:00 11/15/23 00:00 Temperature Pulse Rate 81 63 Respiratory Rate Blood Pressure Pulse Oximetry Oxygen Delivery Room Air 11/15/23 04:00 11/15/23 05:28 11/15/23 08:00 Temperature 97.7 F Pulse Rate 78 72 65 Respiratory Rate 16 Blood Pressure 121/69 Pulse Oximetry 97 Oxygen Delivery 11/15/23 11:14 11/15/23 12:09 11/15/23 12:25 Temperature 97.6 F 97.7 F Pulse Rate 64 62 Respiratory Rate 16 14 Blood Pressure 122/65 122/64 Pulse Oximetry 97 93 94 Oxygen Delivery Room Air Intake/Output Intake/Output: Intake & Output 11/12/23 11/13/23 11/14/23 11/15/23 23:59 23:59 23:59 23:59 Intake Total 1530 3980 2440 Output Total 750 5600 1000 Balance 780 -1620 1440 Meds/Results Medications: Active Medications Generic Name Dose Route Start Last Admin Trade Name Freq PRN Reason Stop Dose Admin Acetaminophen 650 mg 11/13/23 16:16 11/14/23 17:22 Acetaminophen 325 Mg Tablet PO 650 mg Q6H PRN Administration Mild Pain (1-3) or Fever Calcium Carbonate 500 mg 11/15/23 08:00 Calcium Carbonate (Oscal) 500 Mg Tablet PO 11/16/23 08:01 TIDWM [facility] Antonina
--- NOTE | 2023-11-15 14:00 | PM.IMPN ---
Progress Note: A&P Assessment and Plan (1) Noncompliance: Code(s): Z91.199 - Patient's noncompliance with other medical treatment and regimen due to unspecified reason Status: Acute (2) Urinary tract infection: Code(s): N39.0 - Urinary tract infection, site not specified Status: Acute Assessment and Plan: Continue ceftriaxone -preliminary urine growing Gram-negative bacillary (3) Urinary retention: Code(s): R33.9 - Retention of urine, unspecified Status: Acute Assessment and Plan: -nephrology following. Will eventually need outlet obstruction procedure. Currently as 3 way Rubio with continuous drainage. It is now very slightly pink as opposed to darker red previously (4) Hydronephrosis: Code(s): N13.30 - Unspecified hydronephrosis Status: Acute Assessment and Plan: Continue Urology recommendations (5) Hematuria: Code(s): R31.9 - Hematuria, unspecified Status: Acute Assessment and Plan: Hemoglobin 8.6 on admission Decreased to 6.8 on 11/15. Pending 1 unit PRBC. Recheck hemoglobin at 7:00 p.m.. Transfuse as needed. (6) Nausea & vomiting: Code(s): R11.2 - Nausea with vomiting, unspecified Status: Acute Assessment and Plan: On admission this had resolved however on 11/15 he is having again nausea and vomiting. This could be due to a wide range of etiologies including his uremia and urine infection. Reglan p.r.n.. Lipase on admission was mildly elevated at 385. Abdominal CT on admission did not report any pancreas abnormalities. Will check another lipase now. (7) Metabolic acidosis: Code(s): E87.20 - Acidosis, unspecified Status: Acute Assessment and Plan: This is improving. (8) Acute on chronic kidney failure: Code(s): N17.9 - Acute kidney failure, unspecified; N18.9 - Chronic kidney disease, unspecified Status: Acute Assessment and Plan: Serum creatinine in 2022 as low as 1.9. Due to outlet obstruction admitted with serum creatinine 18. Has not come down much now 17.5. Nephrology following. Lab studies for CKD mineral bone disease ordered. Defer further management to Nephrology (9) Tobacco abuse counseling: Code(s): Z71.6 - Tobacco abuse counseling Status: Acute (10) Bipolar disorder: Code(s): F31.9 - Bipolar disorder, unspecified Status: Acute Plan This is a 63-year-old smoker with a history of BPH, chronic bladder outlet obstruction, chronic kidney disease, history of noncompliance with medical treatment, bipolar disorder, COPD. He presents on 11/13 with complaints of milky urine and nausea and vomiting. CT demonstrating enlarged prostate with outlet obstruction moderate to severe bilateral hydronephrosis and nonobstructing left renal stone. He also had hemoglobin of 8.6. He had recently had a cysto with clot evacuation in March 2023 and April 2023. Previously ureteral orifices were not visible so he is not a candidate for ureteral stents. Nephrostomy tubes are a consideration. He was recommended to have a PAE but was lost to follow-up and noncompliance. FEN: Saline lock IV. GI prophylaxis: Not indicated DVT prophylaxis: SCDs only Lines: Peripheral IV, 3 way Rubio Code Status: Full code Dispo: Stable Subjective Date/time seen: 11/15/23 14:00 Interval history: No acute overnight events. The patient has had some nausea he is unsure if he has abdominal pain or not. He often has eccentric complaints. Review of Systems Review of Systems: All systems reviewed & are unremarkable except as noted in HPI and below (Subjective) Exam Const: General: comfortable and no acute distress Eyes: Pupils: Equal, round and reactive pupils present Neck: Neck: supple Resp: Effort & Inspection: normal respiratory effort Auscultation: clear to auscultation bilaterally Cardio: Rate: regular rate Rhythm: regular rhythm GI: GI Palp: Ye
[2023-11-15 14:39] LABS: Lipase 175 U/L (23-300)
[2023-11-15] MEDS: METOCLOPRAMIDE HCL INJ 10 MG/2 ML VIAL 5 MG IV PUSH (16:26)
[2023-11-15] MEDS: ONDANSETRON INJ 4 MG/2 ML VIAL (18:00)
[2023-11-15 19:22] LABS: Hematocrit 24.2 % (42.0-52.0); Hemoglobin 8.1 g/dL (14.0-18.0)
--- NOTE | 2023-11-15 20:11 | PC.NURSE ---
called multiple times for N/V from 11/15/23 0000. PRN doses given. Provider told of pt inability to swallow pills. No replacement given. Requested again and received scheduled reglan. Gave a dose early at 1645. Called again and received PRN zofran. Pt has no vomiting since.
[2023-11-15 20:13] LABS: Anion Gap 15 mmol/L (8-16); Calcium 6.9 mg/dL (8.4-10.2); Carbon Dioxide 23 mmol/L (22-30); Chloride 98 mmol/L (98-107); Estimated CRCL calculation 5 ml/min; Estimated Glomerular Filt Rate 3; Glucose 108 mg/dL (65-110); Potassium 3.6 mmol/L (3.4-5.0); Sodium 136 mmol/L (137-145)
[2023-11-15 20:17] LABS: Blood Urea Nitrogen 137 mg/dL (9-20)
[2023-11-16] VITALS (10 sets, daily range): BP systolic 133–143; BP diastolic 73–81; PULSE 64–96; RESP 13–18; TEMP 36.1–36.7; O2SAT 95–99
[2023-11-16] MEDS: METOCLOPRAMIDE HCL INJ 10 MG/2 ML VIAL 5 MG IV PUSH ×4 (00:18→17:02)
[2023-11-16 06:45] LABS: Basophils Absolute Auto 0.1 K/mm3 (0.0-0.1); Eosinophils Absolute Auto 0.4 K/mm3 (0-0.3); Eosinophils Percent Auto 4.6 % (0-4.4); Hematocrit 27.1 % (42.0-52.0); Hemoglobin 8.7 g/dL (14.0-18.0); Immature Granulocyte Absolute 0.04 K/mm3 (0.00-0.031); Immature Granulocyte Percent A 0.5 % (0-0.5); Lymphocytes Absolute Auto 1.22 K/mm3 (0.9-3.2); Lymphocytes Percent Auto 14.1 % (18.3-44.2); Mean Corpuscular HGB Conc 32.1 g/dl (32-36); Mean Corpuscular Hemoglobin 28.3 pg (26-34); Mean Corpuscular Volume 88.3 fl (80-100); Monocytes Absolute Auto 0.5 K/mm3 (0.1-0.6); Monocytes Percent Auto 5.4 % (2.6-8.5); Neutrophils Absolute Auto 6.4 K/mm3 (1.3-6.7); Neutrophils Percent Auto 74.4 % (45.5-73.1); Platelet Count Result 211 k/mm3 (150-375); Red Blood Count 3.07 M/mm3 (4.6-6.20); Red Cell Distribution Width 15.5 % (11.5-14.5); White Blood Count 8.7 K/mm3 (4.5-10.0)
[2023-11-16 07:07] LABS: Parathyroid Intact 495.7 pg/mL (7.5-53.5)
[2023-11-16 07:08] LABS: Alanine Aminotransferase 13 U/L (6-50); Albumin Level 3.6 g/dL (3.5-5.1); Alkaline Phosphatase 74 U/L (38-126); Anion Gap 17 mmol/L (8-16); Aspartate Amino Transferase 14 U/L (17-59); Bilirubin,Total 0.4 mg/dL (0.2-1.3); Blood Urea Nitrogen > 120 mg/dL (9-20); Calcium 6.9 mg/dL (8.4-10.2); Carbon Dioxide 24 mmol/L (22-30); Chloride 98 mmol/L (98-107); Glucose 108 mg/dL (65-110); Magnesium 1.7 mg/dL (1.6-2.3); Phosphorus 11.8 mg/dL (2.5-4.5); Potassium 3.5 mmol/L (3.4-5.0); Sodium 139 mmol/L (137-145)
[2023-11-16 07:11] LABS: Estimated CRCL calculation 4 ml/min; Estimated Glomerular Filt Rate 3
[2023-11-16 07:59] LABS: Vitamin D 25 Hydroxy 26.6 ng/mL
[2023-11-16 08:31] LABS: Procalcitonin 0.5 ng/mL
[2023-11-16] MEDS: CALCIUM CARBONATE (OSCAL) 500 MG TABLET 1000 MG PO ×3 (08:48→17:02)
[2023-11-16] MEDS: TAMSULOSIN HCL 0.4 MG CAPSULE PO (08:48)
[2023-11-16] MEDS: FINASTERIDE 5 MG TABLET PO (08:48)
[2023-11-16] MEDS: ONDANSETRON INJ 4 MG/2 ML VIAL IV PUSH (08:50)
--- NOTE | 2023-11-16 09:22 | WPDUROPN2 ---
Progress Note: A&P Assessment and Plan (1) Gross hematuria: Code(s): R31.0 - Gross hematuria Status: Acute Assessment and Plan: Urine clear on slow CBI - can titrate to off since remaining clear No evidence of clots in the bladder on CT or renal/bladder US (2) Urinary tract infection: Code(s): N39.0 - Urinary tract infection, site not specified Status: Acute Assessment and Plan: Preliminary urine culture with gram negative bacilli Continue empiric antibiotics while awaiting final culture (3) Benign prostate hyperplasia: Code(s): N40.0 - Benign prostatic hyperplasia without lower urinary tract symptoms Status: Acute Assessment and Plan: Severely enlarged prostate Continue tamsulosin and finasteride Has previously been recommended for PAE; he has been noncompliant with follow up Will need some kind of outlet procedure in the future. (4) Bilateral hydronephrosis: Code(s): N13.30 - Unspecified hydronephrosis Status: Acute Assessment and Plan: Moderate bilateral hydronephrosis noted on imaging which is a chronic finding due to outlet obstruction Not a candidate for ureteral stents as last cystoscopy ureteral orifices were not visible Nephrostomy tubes would be only access to upper tracts (5) Acute on chronic kidney failure: Code(s): N17.9 - Acute kidney failure, unspecified; N18.9 - Chronic kidney disease, unspecified Status: Acute Assessment and Plan: Creatinine elevated to 18.3 on arrival Had only slight improvement and unfortunately creatinine now back up to 18.0 today As above, may need to consider nephrostomy tubes as he is unable to have ureteral stent placement Continue to follow creatinine trends Subjective Subjective Date/Time Seen: 11/16/23 09:22 Interval history: Continues to complain of nausea. Urine is clear, light yellow on slow drip CBI with some clear/white mucus in tubing. Denies suprapubic pain or pressure. No fevers or chills. Creatinine increased to 18.0. Hgb stable at 8.7. Review of Systems Review of Systems: All systems reviewed & are unremarkable except as noted in HPI and below Exam Narrative: General: Awake, alert, comfortable, no acute distress HEENT: Normocephalic, atraumatic, sclerae anicteric Respiratory: Normal respiratory effort, no accessory muscle use Abdomen: Nondistended, soft, nontender : 3 way catheter draining clear light yellow urine on slow drip CBI Skin: Facial skin cancer noted, warm and dry Neurologic: No focal neuro deficits noted Psychiatric: Appropriate mood and affect, judgment and insight intact Objective Data Vital Signs Vital Signs: Vital Signs - 24 hr 11/15/23 11:14 11/15/23 12:09 11/15/23 12:25 Temperature 97.6 F 97.7 F Pulse Rate 64 62 Respiratory Rate 16 14 Blood Pressure 122/65 122/64 Pulse Oximetry 97 93 94 Oxygen Delivery Room Air 11/15/23 13:25 11/15/23 14:25 11/15/23 15:05 Temperature 97.7 F 97.0 F L 96.9 F L Pulse Rate 64 70 67 Respiratory Rate 16 14 14 Blood Pressure 109/54 L 112/58 L 114/63 Pulse Oximetry 93 95 95 Oxygen Delivery 11/15/23 12:00 11/15/23 16:00 11/15/23 21:29 Temperature 97.9 F Pulse Rate 68 68 87 Respiratory Rate 16 Blood Pressure 137/77 Pulse Oximetry 96 Oxygen Delivery 11/15/23 20:00 11/15/23 20:00 11/16/23 00:00 Temperature Pulse Rate 100 85 Respiratory Rate Blood Pressure Pulse Oximetry Oxygen Delivery Room Air 11/16/23 04:00 11/16/23 06:00 11/16/23 08:30 Temperature 97.0 F L Pulse Rate 69 96 96 Respiratory Rate 13 Blood Pressure 140/79 Pulse Oximetry 95 97 Oxygen Delivery Intake/Output Intake/Output: Intake & Output 11/13/23 11/14/23 11/15/23 11/16/23 23:59 23:59 23:59 23:59 Intake Total 1530 3980 2490 60 Output Total 750 3340 1870 1150 Balance 835 -3265 338 -1096 Meds/Results Medications: Active Medicat
--- NOTE | 2023-11-16 12:02 | PM.IMPN ---
Progress Note: A&P Assessment and Plan (1) Gross hematuria: Code(s): R31.0 - Gross hematuria Status: Acute Assessment and Plan: titrate CBI to off since remaining clear No evidence of clots in the bladder on CT or renal/bladder US Bladder scan q.4 hours x3 (2) Urinary tract infection: Code(s): N39.0 - Urinary tract infection, site not specified Status: Acute Assessment and Plan: Preliminary urine culture with gram negative bacilli -change antibiotic to Levaquin p.o. 750 once, then Levaquin 500 mg p.o. Q 48 hours (3) Benign prostate hyperplasia: Code(s): N40.0 - Benign prostatic hyperplasia without lower urinary tract symptoms Status: Acute Assessment and Plan: Severely enlarged prostate Continue tamsulosin and finasteride Has previously been recommended for PAE; he has been noncompliant with follow up Will need some kind of outlet procedure in the future. (4) Bilateral hydronephrosis: Code(s): N13.30 - Unspecified hydronephrosis Status: Acute Assessment and Plan: Moderate bilateral hydronephrosis noted on imaging which is a chronic finding due to outlet obstruction Nephrology following (5) Acute on chronic kidney failure: Code(s): N17.9 - Acute kidney failure, unspecified; N18.9 - Chronic kidney disease, unspecified Status: Acute Assessment and Plan: Creatinine elevated to 18.3 on arrival Had only slight improvement and unfortunately creatinine now back up to 18.0 today As above, may need to consider nephrostomy tubes as he is unable to have ureteral stent placement Continue to follow creatinine trends Subjective Date/time seen: 11/16/23 12:02 Interval history: This is a 63-year-old smoker with a history of BPH, chronic bladder outlet obstruction, chronic kidney disease, history of noncompliance with medical treatment, bipolar disorder, COPD.? He presents on 11/13 with complaints of milky urine and nausea and vomiting.? CT demonstrating enlarged prostate with outlet obstruction moderate to severe bilateral hydronephrosis and nonobstructing left renal stone.? He also had hemoglobin of 8.6.? He had recently had a cysto with clot evacuation in March 2023 and April 2023.? Previously ureteral orifices were not visible so he is not a candidate for ureteral stents.? Nephrostomy tubes are a consideration.? He was recommended to have a PAE but was lost to follow-up and noncompliance. 11/15/23? 14:00 Interval history: No acute overnight events.? The patient has had some nausea he is unsure if he has abdominal pain or not.? He often has eccentric complaints. 11/16: Assumed care for patient, patient denies any overnight events, CBI can be titrated to off, there are no evidence clots in the bladder on CT or renal bladder ultrasound. Urine with preliminary results of Gram-negative bacilli Review of Systems Review of Systems: All systems reviewed & are unremarkable except as noted in HPI and below Exam Narrative: General: Awake, alert, comfortable, no acute distress HEENT: Normocephalic, atraumatic, sclerae anicteric Respiratory: Normal respiratory effort, no accessory muscle use Abdomen: Nondistended, soft, nontender : 3 way catheter draining clear light yellow urine on slow drip CBI Skin: Facial skin cancer noted, warm and dry Neurologic: No focal neuro deficits noted Psychiatric: Appropriate mood and affect, judgment and insight intact Objective Data Vital Signs Vital Signs: Vital Signs - 24 hr 11/15/23 12:09 11/15/23 12:25 11/15/23 13:25 Temperature 97.6 F 97.7 F 97.7 F Pulse Rate 64 62 64 Respiratory Rate 16 14 16 Blood Pressure 122/65 122/64 109/54 L Pulse Oximetry 93 94 93 Oxygen Delivery 11/15/23 14:25 11/15/23 15:05 11/15/23 16:00 Temperature 97.0 F L 96.9 F L Pulse Rate 70 67 68 Respiratory Rate 14 14 Blood Pressure 112/58 L 114/63 Pulse Oximetry 95 95 Oxygen Delivery
--- NOTE | 2023-11-16 12:10 | P.PNNP_ITS ---
Progress Note: A&P Assessment and Plan (1) Acute kidney injury: Code(s): N17.9 - Acute kidney failure, unspecified Status: Acute Assessment and Plan: * due to obstructive uropathy/urinary retention * evidence of bilateral hydronephrosis by CT imaging in ER * gutiérrez catheter in place * follow trend of renal function and UOP * making good urine output * BUN and creatinine still indicating inability to clear uremic toxins... * concerning that creatinine remains quite elevated -- he may have suffered irreparable damage to his kidneys (2) Stage 3b chronic kidney disease: Code(s): N18.32 - Chronic kidney disease, stage 3b Status: Chronic Assessment and Plan: * last creatinine was 1.9mg/dl in July 2023 * will try to obtain records from [facility] given recent admission there * presumably due to mulitple bouts of BRYAN/ARF in association with obstructive uropathy (3) Bilateral hydronephrosis: Code(s): N13.30 - Unspecified hydronephrosis Status: Acute Assessment and Plan: * as noted on admission imaging * likely secondary to chronic outlet obstruction * unable to have stents in the past as ureteral orifices were not visible during cystoscopy * Urology following (4) Metabolic acidosis: Code(s): E87.20 - Acidosis, unspecified Status: Acute Assessment and Plan: * likely secondary to BRYAN/ARF * on bicarbonate gtt to compensate with improvement noted * wean off as tolerated * follow CO2 levels (5) Urinary tract infection: Code(s): N39.0 - Urinary tract infection, site not specified Status: Acute Assessment and Plan: * admission UA highly suggestive * follow-up on urine culture - Klebsiella noted * on antibiotics (6) Anemia: Code(s): D64.9 - Anemia, unspecified Status: Acute Assessment and Plan: * suspect related to severe BRYAN/ARF * likely some contributions from hematuria * PRBC per protocol * follow trend of H/H (7) Benign prostate hyperplasia: Code(s): N40.0 - Benign prostatic hyperplasia without lower urinary tract symptoms Status: Chronic Assessment and Plan: * chronic and long standing issue (as noted by his previous hospitalizations) * continue tamsulosin and finasteride * continue gutiérrez catheter * compliance with follow-up with this issue is an ongoing issue Will continue to follow. Subjective Date/time seen: 11/16/23 12:10 Interval history: Follow-up for acute kidney injury/acute renal failure on chronic kidney disease. Appears to be doing reasonably well at the time of my visit; urine appears remans clear with weaning of CBI; tolerated PRBC transfusion yesterday with improvement in H/H; still with no significant recovery in renal function/c reatinine despite interventions to date. Exam Narrative: General: WD/WN male in NAD Heart: normal S1 and S2; no rub Lungs: clear to auscultation Abdomen: soft, nontender, nondistended, positive bowel sounds Extremities: no cyanosis or clubbing; no edema Skin: warm and intact Objective Data Vital Signs Vital Signs: Vital Signs Temp Pulse Resp BP Pulse Ox O2 Del Method 11/16/23 12:03 84 11/16/23 13:52 98.0 F 82 16 143/73 H 96 11/16/23 08:02 75 11/16/23 09:00 Room Air 11/16/23 08:3
--- NOTE | 2023-11-16 12:10 | PM.PNNEP ---
Progress Note: A&P Assessment and Plan (1) Acute kidney injury: Code(s): N17.9 - Acute kidney failure, unspecified Status: Acute Assessment and Plan: due to obstructive uropathy/urinary retention evidence of bilateral hydronephrosis by CT imaging in ER gutiérrez catheter in place follow trend of renal function and UOP making good urine output BUN and creatinine still indicating inability to clear uremic toxins... concerning that creatinine remains quite elevated -- he may have suffered irreparable damage to his kidneys (2) Stage 3b chronic kidney disease: Code(s): N18.32 - Chronic kidney disease, stage 3b Status: Chronic Assessment and Plan: last creatinine was 1.9mg/dl in July 2023 will try to obtain records from [facility] given recent admission there presumably due to mulitple bouts of BRYAN/ARF in association with obstructive uropathy (3) Bilateral hydronephrosis: Code(s): N13.30 - Unspecified hydronephrosis Status: Acute Assessment and Plan: as noted on admission imaging likely secondary to chronic outlet obstruction unable to have stents in the past as ureteral orifices were not visible during cystoscopy Urology following (4) Metabolic acidosis: Code(s): E87.20 - Acidosis, unspecified Status: Acute Assessment and Plan: likely secondary to BRYAN/ARF on bicarbonate gtt to compensate with improvement noted wean off as tolerated follow CO2 levels (5) Urinary tract infection: Code(s): N39.0 - Urinary tract infection, site not specified Status: Acute Assessment and Plan: admission UA highly suggestive follow-up on urine culture - Klebsiella noted on antibiotics (6) Anemia: Code(s): D64.9 - Anemia, unspecified Status: Acute Assessment and Plan: suspect related to severe BRYAN/ARF likely some contributions from hematuria PRBC per protocol follow trend of H/H (7) Benign prostate hyperplasia: Code(s): N40.0 - Benign prostatic hyperplasia without lower urinary tract symptoms Status: Chronic Assessment and Plan: chronic and long standing issue (as noted by his previous hospitalizations) continue tamsulosin and finasteride continue gutiérrez catheter compliance with follow-up with this issue is an ongoing issue Will continue to follow. Subjective Date/time seen: 11/16/23 12:10 Interval history: Follow-up for acute kidney injury/acute renal failure on chronic kidney disease. Appears to be doing reasonably well at the time of my visit; urine appears remans clear with weaning of CBI; tolerated PRBC transfusion yesterday with improvement in H/H; still with no significant recovery in renal function/creatinine despite interventions to date. Exam Narrative: General: WD/WN male in NAD Heart: normal S1 and S2; no rub Lungs: clear to auscultation Abdomen: soft, nontender, nondistended, positive bowel sounds Extremities: no cyanosis or clubbing; no edema Skin: warm and intact Objective Data Vital Signs Vital Signs: Vital Signs Temp Pulse Resp BP Pulse Ox O2 Del Method 11/16/23 12:03 84 11/16/23 13:52 98.0 F 82 16 143/73 H 96 11/16/23 08:02 75 11/16/23 09:00 Room Air 11/16/23 08:30 96 97 11/16/23 06:00 97.0 F L 96 13 140/79 95 11/16/23 04:00 69 11/16/23 00:00 85 11/15/23 20:00 100 11/15/23 20:00 Room Air 11/15/23 21:29 97.9 F 87 16 137/77 96 Intake/Output Intake/Output: Intake & Output 11/13/23 11/14/23 11/15/23 11/16/23 23:59 23:59 23:59 23:59 Intake Total 1530 3980 2490 350 Output Total 750 5600 1870 2850 Balance 780 -1620 620 -2500 Meds/Results Medications: Active Medications Generic Name Dose Route Start Last Admin Trade Name Chavoq PRN Reason Stop Dose Admin Acetaminophen 650 mg 11/13/23 16:16 11/14/23 17:22 A
[2023-11-17] VITALS (8 sets, daily range): BP systolic 131–151; BP diastolic 88–95; PULSE 64–85; RESP 16–18; TEMP 36.2–36.9; O2SAT 95–98
[2023-11-17] MEDS: METOCLOPRAMIDE HCL INJ 10 MG/2 ML VIAL 5 MG IV PUSH ×3 (05:09→17:08)
[2023-11-17 06:39] LABS: Basophils Absolute Auto 0.1 K/mm3 (0.0-0.1); Eosinophils Absolute Auto 0.5 K/mm3 (0-0.3); Eosinophils Percent Auto 6.2 % (0-4.4); Hematocrit 27.9 % (42.0-52.0); Immature Granulocyte Absolute 0.05 K/mm3 (0.00-0.031); Immature Granulocyte Percent A 0.6 % (0-0.5); Lymphocytes Absolute Auto 1.59 K/mm3 (0.9-3.2); Lymphocytes Percent Auto 20.4 % (18.3-44.2); Mean Corpuscular HGB Conc 32.3 g/dl (32-36); Mean Corpuscular Hemoglobin 28.2 pg (26-34); Mean Corpuscular Volume 87.5 fl (80-100); Mean Platelet Volume 9.8 fl (7.4-10.4); Monocytes Absolute Auto 0.7 K/mm3 (0.1-0.6); Monocytes Percent Auto 9.1 % (2.6-8.5); Neutrophils Absolute Auto 4.9 K/mm3 (1.3-6.7); Neutrophils Percent Auto 62.7 % (45.5-73.1); Platelet Count Result 199 k/mm3 (150-375); Red Blood Count 3.19 M/mm3 (4.6-6.20); Red Cell Distribution Width 15.2 % (11.5-14.5); White Blood Count 7.8 K/mm3 (4.5-10.0)
[2023-11-17 06:59] LABS: Alanine Aminotransferase 13 U/L (6-50); Albumin Level 3.5 g/dL (3.5-5.1); Alkaline Phosphatase 75 U/L (38-126); Anion Gap 13 mmol/L (8-16); Aspartate Amino Transferase 13 U/L (17-59); Bilirubin,Total 0.5 mg/dL (0.2-1.3); Blood Urea Nitrogen > 120 mg/dL (9-20); Calcium 7.1 mg/dL (8.4-10.2); Carbon Dioxide 26 mmol/L (22-30); Chloride 97 mmol/L (98-107); Glucose 106 mg/dL (65-110); Potassium 3.7 mmol/L (3.4-5.0); Sodium 136 mmol/L (137-145)
[2023-11-17 07:09] LABS: Estimated CRCL calculation 4 ml/min; Estimated Glomerular Filt Rate 3
[2023-11-17] MEDS: FINASTERIDE 5 MG TABLET PO (08:57)
[2023-11-17] MEDS: CALCIUM CARBONATE (OSCAL) 500 MG TABLET 1000 MG PO ×3 (08:57→17:08)
[2023-11-17] MEDS: TAMSULOSIN HCL 0.4 MG CAPSULE PO (08:57)
[2023-11-17] MEDS: levoFLOXacin 750 MG TABLET PO (11:53)
--- NOTE | 2023-11-17 12:32 | PM.IMPN ---
Progress Note: A&P Assessment and Plan (1) Gross hematuria: Code(s): R31.0 - Gross hematuria Status: Acute Assessment and Plan: CBI d/cd No evidence of clots in the bladder on CT or renal/bladder US Bladder scan q.4 hours x3 (2) Urinary tract infection: Code(s): N39.0 - Urinary tract infection, site not specified Status: Acute Assessment and Plan: Preliminary urine culture with gram negative bacilli -change antibiotic to Levaquin p.o. 750 once, then Levaquin 500 mg p.o. Q 48 hours (3) Benign prostate hyperplasia: Code(s): N40.0 - Benign prostatic hyperplasia without lower urinary tract symptoms Status: Acute Assessment and Plan: Severely enlarged prostate Continue tamsulosin and finasteride Has previously been recommended for PAE; he has been noncompliant with follow up Will need some kind of outlet procedure in the future. (4) Bilateral hydronephrosis: Code(s): N13.30 - Unspecified hydronephrosis Status: Acute Assessment and Plan: Moderate bilateral hydronephrosis noted on imaging which is a chronic finding due to outlet obstruction -urology following patient, they are considering nephrostomy tubes Nephrology following (5) Acute on chronic kidney failure: Code(s): N17.9 - Acute kidney failure, unspecified; N18.9 - Chronic kidney disease, unspecified Status: Acute Assessment and Plan: Creatinine elevated to 18.3 on arrival Subjective Date/time seen: 11/17/23 12:32 Interval history: This is a 63-year-old smoker with a history of BPH, chronic bladder outlet obstruction, chronic kidney disease, history of noncompliance with medical treatment, bipolar disorder, COPD.? He presents on 11/13 with complaints of milky urine and nausea and vomiting.? CT demonstrating enlarged prostate with outlet obstruction moderate to severe bilateral hydronephrosis and nonobstructing left renal stone.? He also had hemoglobin of 8.6.? He had recently had a cysto with clot evacuation in March 2023 and April 2023.? Previously ureteral orifices were not visible so he is not a candidate for ureteral stents.? Nephrostomy tubes are a consideration.? He was recommended to have a PAE but was lost to follow-up and noncompliance. 11/15/23? 14:00 Interval history: No acute overnight events.? The patient has had some nausea he is unsure if he has abdominal pain or not.? He often has eccentric complaints. 11/16: Assumed care for patient, patient denies any overnight events, CBI can be titrated to off, there are no evidence clots in the bladder on CT or renal bladder ultrasound. Urine with preliminary results of Gram-negative bacilli : Patient seen this morning, he is resting with eyes closed in no acute distress he denies any overnight events. CBI has been discontinued, Rubio has yellow urine with some urine sediments, no evidence of hematuria. Discussed with negotiator sales on 11/16 in reference to continued elevated creatinine as well as deescalation to p.o. antibiotics Levaquin, patient received loading dose of 750 mg yesterday, then will continue Levaquin 500 mg p.o. Q 48 hours. Patient states he will follow-up as necessary no matter what treatment is decided for patient, at this point he understands that he has moderate kidney damage. Review of Systems Review of Systems: All systems reviewed & are unremarkable except as noted in HPI and below Exam Narrative: General: Awake, alert, comfortable, no acute distress HEENT: Normocephalic, atraumatic, sclerae anicteric Respiratory: Normal respiratory effort, no accessory muscle use Abdomen: Nondistended, soft, nontender : Rubio catheter in place, with yellow urine Skin: Facial skin cancer noted, warm and dry Neurologic: No focal neuro deficits noted Psychiatric: Appropriate mood and affect, judgment and insight intact Objective Data Vital Signs Vital Signs: Vital Signs - 24 hr
--- NOTE | 2023-11-17 13:30 | P.PNNP_ITS ---
Progress Note: A&P Assessment and Plan (1) Acute kidney injury: Code(s): N17.9 - Acute kidney failure, unspecified Status: Acute Assessment and Plan: * due to obstructive uropathy/urinary retention * evidence of bilateral hydronephrosis by CT imaging in ER * gutiérrez catheter in place * follow trend of renal function and UOP * making good urine output * BUN and creatinine still indicating inability to clear uremic toxins... * concerning that creatinine remains quite elevated -- he may have suffered irreparable damage to his kidneys (2) Stage 3b chronic kidney disease: Code(s): N18.32 - Chronic kidney disease, stage 3b Status: Chronic Assessment and Plan: * last creatinine was 1.9mg/dl in July 2023 * will try to obtain records from [facility] given recent admission there * presumably due to mulitple bouts of BRYAN/ARF in association with obstructive uropathy (3) Bilateral hydronephrosis: Code(s): N13.30 - Unspecified hydronephrosis Status: Acute Assessment and Plan: * as noted on admission imaging * likely secondary to chronic outlet obstruction * unable to have stents in the past as ureteral orifices were not visible during cystoscopy * Urology following (4) Metabolic acidosis: Code(s): E87.20 - Acidosis, unspecified Status: Acute Assessment and Plan: * likely secondary to BRYAN/ARF * on bicarbonate gtt to compensate with improvement noted * wean off as tolerated * follow CO2 levels (5) Urinary tract infection: Code(s): N39.0 - Urinary tract infection, site not specified Status: Acute Assessment and Plan: * admission UA highly suggestive * follow-up on urine culture - Klebsiella noted * on antibiotics (6) Anemia: Code(s): D64.9 - Anemia, unspecified Status: Acute Assessment and Plan: * suspect related to severe BRYAN/ARF * likely some contributions from hematuria * PRBC per protocol * follow trend of H/H (7) Benign prostate hyperplasia: Code(s): N40.0 - Benign prostatic hyperplasia without lower urinary tract symptoms Status: Chronic Assessment and Plan: * chronic and long standing issue (as noted by his previous hospitalizations) * continue tamsulosin and finasteride * continue gutiérrez catheter * compliance with follow-up with this issue is an ongoing issue Will continue to follow. Subjective Date/time seen: 11/17/23 13:30 Interval history: Follow-up for acute kidney injury/acute renal failure on chronic kidney disease. No apparent issues or problems voiced at the time of my visit; CBI is off and no evidence of any recurrent hematuria; denies any nausea or vomiting; continues to make good urine output but BUN + creatinine remain quite elevated. Exam Narrative: General: WD/WN male in NAD Heart: normal S1 and S2; no rub Lungs: clear to auscultation Abdomen: soft, nontender, nondistended, positive bowel sounds Extremities: no cyanosis or clubbing; no edema Skin: no rash Objective Data Vital Signs Vital Signs: Vital Signs Temp Pulse Resp BP Pulse Ox O2 Del Method 11/17/23 13:00 97.2 F L 85 16 131/88 95 11/17/23 12:00 66 11/17/23 08:00 Room Air 11/17/23 08:00 75 11/17/23 06:00 98.4 F 81 18 138/95 H 98
--- NOTE | 2023-11-17 13:30 | PM.PNNEP ---
Progress Note: A&P Assessment and Plan (1) Acute kidney injury: Code(s): N17.9 - Acute kidney failure, unspecified Status: Acute Assessment and Plan: due to obstructive uropathy/urinary retention evidence of bilateral hydronephrosis by CT imaging in ER gutiérrez catheter in place follow trend of renal function and UOP making good urine output BUN and creatinine still indicating inability to clear uremic toxins... concerning that creatinine remains quite elevated -- he may have suffered irreparable damage to his kidneys (2) Stage 3b chronic kidney disease: Code(s): N18.32 - Chronic kidney disease, stage 3b Status: Chronic Assessment and Plan: last creatinine was 1.9mg/dl in July 2023 will try to obtain records from [facility] given recent admission there presumably due to mulitple bouts of BRYAN/ARF in association with obstructive uropathy (3) Bilateral hydronephrosis: Code(s): N13.30 - Unspecified hydronephrosis Status: Acute Assessment and Plan: as noted on admission imaging likely secondary to chronic outlet obstruction unable to have stents in the past as ureteral orifices were not visible during cystoscopy Urology following (4) Metabolic acidosis: Code(s): E87.20 - Acidosis, unspecified Status: Acute Assessment and Plan: likely secondary to BRYAN/ARF on bicarbonate gtt to compensate with improvement noted wean off as tolerated follow CO2 levels (5) Urinary tract infection: Code(s): N39.0 - Urinary tract infection, site not specified Status: Acute Assessment and Plan: admission UA highly suggestive follow-up on urine culture - Klebsiella noted on antibiotics (6) Anemia: Code(s): D64.9 - Anemia, unspecified Status: Acute Assessment and Plan: suspect related to severe BRYAN/ARF likely some contributions from hematuria PRBC per protocol follow trend of H/H (7) Benign prostate hyperplasia: Code(s): N40.0 - Benign prostatic hyperplasia without lower urinary tract symptoms Status: Chronic Assessment and Plan: chronic and long standing issue (as noted by his previous hospitalizations) continue tamsulosin and finasteride continue gutiérrez catheter compliance with follow-up with this issue is an ongoing issue Will continue to follow. Subjective Date/time seen: 11/17/23 13:30 Interval history: Follow-up for acute kidney injury/acute renal failure on chronic kidney disease. No apparent issues or problems voiced at the time of my visit; CBI is off and no evidence of any recurrent hematuria; denies any nausea or vomiting; continues to make good urine output but BUN + creatinine remain quite elevated. Exam Narrative: General: WD/WN male in NAD Heart: normal S1 and S2; no rub Lungs: clear to auscultation Abdomen: soft, nontender, nondistended, positive bowel sounds Extremities: no cyanosis or clubbing; no edema Skin: no rash Objective Data Vital Signs Vital Signs: Vital Signs Temp Pulse Resp BP Pulse Ox O2 Del Method 11/17/23 13:00 97.2 F L 85 16 131/88 95 11/17/23 12:00 66 11/17/23 08:00 Room Air 11/17/23 08:00 75 11/17/23 06:00 98.4 F 81 18 138/95 H 98 11/17/23 04:00 64 11/17/23 00:00 66 11/16/23 20:00 64 11/16/23 20:00 77 18 99 Room Air 11/16/23 22:00 98.1 F 77 18 133/81 99 Intake/Output Intake/Output: Intake & Output 11/14/23 11/15/23 11/16/23 11/17/23 23:59 23:59 23:59 23:59 Intake Total 3980 2490 590 730 Output Total 5600 1870 2850 1850 Balance -1620 229 -4856 -112 Meds/Results Medications: Active Medications Generic Name Dose Route Start Last Admin Trade Name Freq PRN Reason Stop Dose Admin Acetaminophen 650 mg 11/13/23 16:16 11/14/23 17:22 Acetaminophen 325 Mg Tablet PO 650 mg Q6H PRN Administratio
--- NOTE | 2023-11-17 15:28 | WPDUROPN2 ---
Progress Note: A&P Assessment and Plan (1) Gross hematuria: Code(s): R31.0 - Gross hematuria Status: Acute Assessment and Plan: Resolved. Urine crystal clear off CBI No evidence of clots in the bladder on CT or renal/bladder US (2) Urinary tract infection: Code(s): N39.0 - Urinary tract infection, site not specified Status: Acute Assessment and Plan: Urine culture with growth of Klebsiella aerogenes Continue antibiotics tailor to urine culture (3) Benign prostate hyperplasia: Code(s): N40.0 - Benign prostatic hyperplasia without lower urinary tract symptoms Status: Acute Assessment and Plan: Severely enlarged prostate Continue tamsulosin and finasteride Has previously been recommended for PAE; he has been noncompliant with follow up Will need some kind of outlet procedure in the future, however follow-up and compliance remains an issue (4) Bilateral hydronephrosis: Code(s): N13.30 - Unspecified hydronephrosis Status: Acute Assessment and Plan: Moderate bilateral hydronephrosis noted on imaging which is a chronic finding due to outlet obstruction Not a candidate for ureteral stents as last cystoscopy ureteral orifices were not able to be located Nephrostomy tubes would be only access to upper tracts. Given persistently elevated creatinine, will plan to proceed with bilateral percutaneous nephrostomy tube placement tomorrow NPO after midnight (5) Acute on chronic kidney failure: Code(s): N17.9 - Acute kidney failure, unspecified; N18.9 - Chronic kidney disease, unspecified Status: Acute Assessment and Plan: Creatinine elevated to 18.3 on arrival No significant improvement in renal function creatinine remains elevated at 17.7 Discussed case with Nephrology. Will plan for nephrostomy tube placement. He may require dialysis in the future if this does not improve his renal function Continue to follow creatinine trends Subjective Subjective Date/Time Seen: 11/17/23 15:28 Interval history: Andrey is feeling well today. His urine is crystal clear off CBI. He offers no complaints. Creatinine is 17.7 today. WBC 7.8. Hemoglobin stable at 9.0. Review of Systems Review of Systems: All systems reviewed & are unremarkable except as noted in HPI and below Exam Narrative: General: Awake, alert, comfortable, no acute distress HEENT: Normocephalic, atraumatic, sclerae anicteric Respiratory: Normal respiratory effort, no accessory muscle use Abdomen: Nondistended, soft, nontender : 3 way catheter draining clear light yellow urine, off CBI Skin: Facial skin cancer noted, warm and dry Neurologic: No focal neuro deficits noted Psychiatric: Appropriate mood and affect, judgment and insight intact Objective Data Vital Signs Vital Signs: Vital Signs - 24 hr 11/16/23 16:02 11/16/23 22:00 11/16/23 20:00 Temperature 98.1 F Pulse Rate 75 77 77 Respiratory Rate 18 18 Blood Pressure 133/81 Pulse Oximetry 99 99 Oxygen Delivery Room Air 11/16/23 20:00 11/17/23 00:00 11/17/23 04:00 Temperature Pulse Rate 64 66 64 Respiratory Rate Blood Pressure Pulse Oximetry Oxygen Delivery 11/17/23 06:00 11/17/23 08:00 11/17/23 08:00 Temperature 98.4 F Pulse Rate 81 75 Respiratory Rate 18 Blood Pressure 138/95 H Pulse Oximetry 98 Oxygen Delivery Room Air 11/17/23 12:00 11/17/23 14:00 Temperature 97.2 F L Pulse Rate 66 85 Respiratory Rate 16 Blood Pressure 131/88 Pulse Oximetry 95 Oxygen Delivery Intake/Output Intake/Output: Intake & Output 11/14/23 11/15/23 11/16/23 11/17/23 23:59 23:59 23:59 23:59 Intake Total 3980 2490 590 730 Output Total 5600 1870 2850 1850 Banner -5730 620 -2260 -1120 Meds/Results Medications: Active Medications Generic Name Dose Route Start Last Admin Trade Name Freq PRN Reason Stop Dose Admin Acetaminophen 6
[2023-11-18] VITALS (9 sets, daily range): BP systolic 133–153; BP diastolic 85–97; PULSE 64–108; RESP 14–20; TEMP 36.3–37.3; O2SAT 97–98
[2023-11-18] MEDS: METOCLOPRAMIDE HCL INJ 10 MG/2 ML VIAL 5 MG IV PUSH ×3 (00:17→12:51)
[2023-11-18 06:11] LABS: Basophils Absolute Auto 0.1 K/mm3 (0.0-0.1); Basophils Percent Auto 0.9 % (0.2-1.2); Eosinophils Absolute Auto 0.3 K/mm3 (0-0.3); Eosinophils Percent Auto 4.3 % (0-4.4); Hematocrit 28.7 % (42.0-52.0); Hemoglobin 9.3 g/dL (14.0-18.0); Immature Granulocyte Absolute 0.04 K/mm3 (0.00-0.031); Immature Granulocyte Percent A 0.5 % (0-0.5); Lymphocytes Absolute Auto 1.35 K/mm3 (0.9-3.2); Lymphocytes Percent Auto 18.3 % (18.3-44.2); Mean Corpuscular HGB Conc 32.4 g/dl (32-36); Mean Corpuscular Hemoglobin 28.3 pg (26-34); Mean Corpuscular Volume 87.2 fl (80-100); Mean Platelet Volume 9.5 fl (7.4-10.4); Monocytes Absolute Auto 0.7 K/mm3 (0.1-0.6); Monocytes Percent Auto 9.8 % (2.6-8.5); Neutrophils Absolute Auto 4.9 K/mm3 (1.3-6.7); Neutrophils Percent Auto 66.2 % (45.5-73.1); Platelet Count Result 203 k/mm3 (150-375); Red Blood Count 3.29 M/mm3 (4.6-6.20); Red Cell Distribution Width 14.8 % (11.5-14.5); White Blood Count 7.4 K/mm3 (4.5-10.0)
[2023-11-18 06:23] LABS: INR 1.1; Prothrombin Time 14.8 Seconds (11.1-14.7)
[2023-11-18 06:24] LABS: Partial Thromboplastin Time 32.7 SECONDS (22.3-36.8)
[2023-11-18 06:55] LABS: Alanine Aminotransferase 12 U/L (6-50); Albumin Level 3.5 g/dL (3.5-5.1); Alkaline Phosphatase 74 U/L (38-126); Anion Gap 14 mmol/L (8-16); Aspartate Amino Transferase 14 U/L (17-59); Bilirubin,Total 0.5 mg/dL (0.2-1.3); Calcium 7.5 mg/dL (8.4-10.2); Carbon Dioxide 23 mmol/L (22-30); Chloride 99 mmol/L (98-107); Estimated CRCL calculation 4 ml/min; Estimated Glomerular Filt Rate 3; Glucose 104 mg/dL (65-110); Potassium 3.7 mmol/L (3.4-5.0); Sodium 136 mmol/L (137-145)
[2023-11-18 06:56] LABS: Blood Urea Nitrogen 125 mg/dL (9-20)
--- NOTE | 2023-11-18 08:55 | P.PNNP_ITS ---
Progress Note: A&P Assessment and Plan (1) Acute kidney injury: Code(s): N17.9 - Acute kidney failure, unspecified Status: Acute Assessment and Plan: * due to obstructive uropathy/urinary retention * evidence of bilateral hydronephrosis by CT imaging in ER * gutiérrez catheter in place * follow trend of renal function and UOP * making good urine output * BUN and creatinine still indicating inability to clear uremic toxins... * concerning that creatinine remains quite elevated -- he may have suffered irreparable damage to his kidneys * planning nephrostomy tube placement to see if this will help.... (2) Stage 3b chronic kidney disease: Code(s): N18.32 - Chronic kidney disease, stage 3b Status: Chronic Assessment and Plan: * last creatinine was 1.9mg/dl in July 2023 * will try to obtain records from [facility] given recent admission there * presumably due to mulitple bouts of BRYAN/ARF in association with obstructive uropathy (3) Bilateral hydronephrosis: Code(s): N13.30 - Unspecified hydronephrosis Status: Acute Assessment and Plan: * as noted on admission imaging * likely secondary to chronic outlet obstruction * unable to have stents in the past as ureteral orifices were not visible during cystoscopy * Urology following (4) Metabolic acidosis: Code(s): E87.20 - Acidosis, unspecified Status: Acute Assessment and Plan: * resolved * likely secondary to BRYAN/ARF * on bicarbonate gtt to compensate with improvement noted * wean off as tolerated * follow CO2 levels (5) Urinary tract infection: Code(s): N39.0 - Urinary tract infection, site not specified Status: Acute Assessment and Plan: * admission UA highly suggestive * follow-up on urine culture - Klebsiella noted * on antibiotics (6) Anemia: Code(s): D64.9 - Anemia, unspecified Status: Acute Assessment and Plan: * suspect related to severe BRYAN/ARF * likely some contributions from hematuria * PRBC per protocol * follow trend of H/H (7) Benign prostate hyperplasia: Code(s): N40.0 - Benign prostatic hyperplasia without lower urinary tract symptoms Status: Chronic Assessment and Plan: * chronic and long standing issue (as noted by his previous hospitalizations) * continue tamsulosin and finasteride * continue gutiérrez catheter * compliance with follow-up with this issue is an ongoing issue Will continue to follow. Subjective Date/time seen: 11/18/23 08:55 Interval history: Follow-up for acute kidney injury/acute renal failure on chronic kidney disease. Just about to leave room for scheduled procedure in interventional radiology (bilateral nephrostomy tube placement); continues to make good urine output but BUN + creatinine still remain quite elevated for the last few days if not since admission; no apparent distress voiced; no other acute complaints to report. Exam Narrative: General: WD/WN male in NAD Heart: normal S1 and S2; no rub Lungs: clear to auscultation Abdomen: soft, nontender, nondistended, positive bowel sounds Extremities: no cyanosis or clubbing; no edema Skin: no nodules Objective Data Vital Signs Vital Signs: Vital Signs Temp Pulse Resp BP Pulse Ox O2 Del Method 11/18/23 08:00 Room Air 11/18/23 05:26
--- NOTE | 2023-11-18 08:55 | PM.PNNEP ---
Progress Note: A&P Assessment and Plan (1) Acute kidney injury: Code(s): N17.9 - Acute kidney failure, unspecified Status: Acute Assessment and Plan: due to obstructive uropathy/urinary retention evidence of bilateral hydronephrosis by CT imaging in ER gutiérrez catheter in place follow trend of renal function and UOP making good urine output BUN and creatinine still indicating inability to clear uremic toxins... concerning that creatinine remains quite elevated -- he may have suffered irreparable damage to his kidneys planning nephrostomy tube placement to see if this will help.... (2) Stage 3b chronic kidney disease: Code(s): N18.32 - Chronic kidney disease, stage 3b Status: Chronic Assessment and Plan: last creatinine was 1.9mg/dl in July 2023 will try to obtain records from [facility] given recent admission there presumably due to mulitple bouts of BRYAN/ARF in association with obstructive uropathy (3) Bilateral hydronephrosis: Code(s): N13.30 - Unspecified hydronephrosis Status: Acute Assessment and Plan: as noted on admission imaging likely secondary to chronic outlet obstruction unable to have stents in the past as ureteral orifices were not visible during cystoscopy Urology following (4) Metabolic acidosis: Code(s): E87.20 - Acidosis, unspecified Status: Acute Assessment and Plan: resolved likely secondary to BRYAN/ARF on bicarbonate gtt to compensate with improvement noted wean off as tolerated follow CO2 levels (5) Urinary tract infection: Code(s): N39.0 - Urinary tract infection, site not specified Status: Acute Assessment and Plan: admission UA highly suggestive follow-up on urine culture - Klebsiella noted on antibiotics (6) Anemia: Code(s): D64.9 - Anemia, unspecified Status: Acute Assessment and Plan: suspect related to severe BRYAN/ARF likely some contributions from hematuria PRBC per protocol follow trend of H/H (7) Benign prostate hyperplasia: Code(s): N40.0 - Benign prostatic hyperplasia without lower urinary tract symptoms Status: Chronic Assessment and Plan: chronic and long standing issue (as noted by his previous hospitalizations) continue tamsulosin and finasteride continue gutiérrez catheter compliance with follow-up with this issue is an ongoing issue Will continue to follow. Subjective Date/time seen: 11/18/23 08:55 Interval history: Follow-up for acute kidney injury/acute renal failure on chronic kidney disease. Just about to leave room for scheduled procedure in interventional radiology (bilateral nephrostomy tube placement); continues to make good urine output but BUN + creatinine still remain quite elevated for the last few days if not since admission; no apparent distress voiced; no other acute complaints to report. Exam Narrative: General: WD/WN male in NAD Heart: normal S1 and S2; no rub Lungs: clear to auscultation Abdomen: soft, nontender, nondistended, positive bowel sounds Extremities: no cyanosis or clubbing; no edema Skin: no nodules Objective Data Vital Signs Vital Signs: Vital Signs Temp Pulse Resp BP Pulse Ox O2 Del Method 11/18/23 08:00 Room Air 11/18/23 05:26 98.4 F 87 14 151/97 H 97 11/18/23 04:00 64 11/18/23 00:00 83 11/17/23 20:00 80 11/17/23 20:00 Room Air 11/17/23 21:12 97.6 F 83 17 151/90 H 98 Intake/Output Intake/Output: Intake & Output 11/15/23 11/16/23 11/17/23 11/18/23 23:59 23:59 23:59 23:59 Intake Total 2490 832 831 6156 Output Total 1870 2850 2250 2990 Balance 983 -3370 -2393 -5470 Meds/Results Medications: Active Medications Generic Name Dose Route Start Last Admin Trade Name Freq PRN Reason Stop Dose Admin Acetaminophen 650 mg 11/13/23 16:16 11/18/23 12:50 Acetam
[2023-11-18] MEDS: CALCIUM CARBONATE (OSCAL) 500 MG TABLET 1000 MG PO (12:49)
[2023-11-18] MEDS: FINASTERIDE 5 MG TABLET PO (12:49)
[2023-11-18] MEDS: TAMSULOSIN HCL 0.4 MG CAPSULE PO (12:50)
[2023-11-18] MEDS: ACETAMINOPHEN 325 MG TABLET 650 MG PO ×2 (12:50→21:07)
--- NOTE | 2023-11-18 14:10 | PM.IMPN ---
Progress Note: A&P Assessment and Plan (1) Gross hematuria: Code(s): R31.0 - Gross hematuria Status: Acute Assessment and Plan: Resolved. Urine crystal clear off CBI No evidence of clots in the bladder on CT or renal/bladder US (2) Urinary tract infection: Code(s): N39.0 - Urinary tract infection, site not specified Status: Acute Assessment and Plan: Urine culture with growth of Klebsiella aerogenes Continue antibiotics tailor to urine culture (3) Benign prostate hyperplasia: Code(s): N40.0 - Benign prostatic hyperplasia without lower urinary tract symptoms Status: Acute Assessment and Plan: Severely enlarged prostate Continue tamsulosin and finasteride Has previously been recommended for PAE; he has been noncompliant with follow up Will need some kind of outlet procedure in the future, however follow-up and compliance remains an issue (4) Bilateral hydronephrosis: Code(s): N13.30 - Unspecified hydronephrosis Status: Acute Assessment and Plan: Moderate bilateral hydronephrosis noted on imaging -s/p: bilateral nephrostomy tube placement , no s/s bleeding (5) Acute on chronic kidney failure: Code(s): N17.9 - Acute kidney failure, unspecified; N18.9 - Chronic kidney disease, unspecified Status: Acute Assessment and Plan: Creatinine elevated to 18.3 on arrival No significant improvement in renal function creatinine remains elevated at 17.7 nephrostomy tube placement. He may require dialysis in the future if this does not improve his renal function Continue to follow creatinine trends Subjective Date/time seen: 11/18/23 14:10 Interval history: This is a 63-year-old smoker with a history of BPH, chronic bladder outlet obstruction, chronic kidney disease, history of noncompliance with medical treatment, bipolar disorder, COPD.? He presents on 11/13 with complaints of milky urine and nausea and vomiting.? CT demonstrating enlarged prostate with outlet obstruction moderate to severe bilateral hydronephrosis and nonobstructing left renal stone.? He also had hemoglobin of 8.6.? He had recently had a cysto with clot evacuation in March 2023 and April 2023.? Previously ureteral orifices were not visible so he is not a candidate for ureteral stents.? Nephrostomy tubes are a consideration.? He was recommended to have a PAE but was lost to follow-up and noncompliance. 11/15/23? 14:00 Interval history: No acute overnight events.? The patient has had some nausea he is unsure if he has abdominal pain or not.? He often has eccentric complaints. 11/16: Assumed care for patient, patient denies any overnight events, CBI can be titrated to off, there are no evidence clots in the bladder on CT or renal bladder ultrasound. Urine with preliminary results of Gram-negative bacilli : Patient seen this morning, he is resting with eyes closed in no acute distress he denies any overnight events. CBI has been discontinued, Rubio has yellow urine with some urine sediments, no evidence of hematuria. Discussed with clinic administrator on 11/16 in reference to continued elevated creatinine as well as deescalation to p.o. antibiotics Levaquin, patient received loading dose of 750 mg yesterday, then will continue Levaquin 500 mg p.o. Q 48 hours. Patient states he will follow-up as necessary no matter what treatment is decided for patient, at this point he understands that he has moderate kidney damage. 11/17: Patient seen this morning s/p: Bilateral percutaneous nephrostomy tube placement pod 0, he denies any complaints at this time. Plan is to continue monitoring and following creatinine trends today creatinine is still elevated at 17.7 Review of Systems Review of Systems: All systems reviewed & are unremarkable except as noted in HPI and below Exam Narrative: General: Awake, alert, comfortable, no acute distress HEENT: Normocephalic, atraum
--- NOTE | 2023-11-18 16:05 | WPDUROPN2 ---
Progress Note: A&P Assessment and Plan (1) Gross hematuria: Code(s): R31.0 - Gross hematuria Status: Acute Assessment and Plan: Resolved. Urine clear off CBI No evidence of clots in the bladder on CT or renal/bladder US (2) Urinary tract infection: Code(s): N39.0 - Urinary tract infection, site not specified Status: Acute Assessment and Plan: Urine culture with growth of Klebsiella aerogenes Continue antibiotics tailor to urine culture (3) Benign prostate hyperplasia: Code(s): N40.0 - Benign prostatic hyperplasia without lower urinary tract symptoms Status: Acute Assessment and Plan: Severely enlarged prostate Continue tamsulosin and finasteride Has previously been recommended for PAE; he has been noncompliant with follow up Will need some kind of outlet procedure in the future, however follow-up and compliance remains an issue (4) Bilateral hydronephrosis: Code(s): N13.30 - Unspecified hydronephrosis Status: Acute Assessment and Plan: Moderate bilateral hydronephrosis noted on imaging which is a chronic finding due to outlet obstruction Not a candidate for ureteral stents as last cystoscopy ureteral orifices were not able to be located Bilateral percutaneous nephrostomy tubes placed per IR today. He tolerated this well. Plan for eventual internalization of stents; will plan for outpatient follow up (5) Acute on chronic kidney failure: Code(s): N17.9 - Acute kidney failure, unspecified; N18.9 - Chronic kidney disease, unspecified Status: Acute Assessment and Plan: Creatinine elevated to 18.3 on arrival Slight improvement today to 16.7 Hopeful continued improvement following nephrostomy tube placement Subjective Subjective Date/Time Seen: 11/18/23 16:05 Interval history: Doing well today. Had bilateral neph tubes placed and tolerated well. Right neph tube with output of clear yellow urine. Left neph tube with clear, light pink output. Rubio catheter draining clear yellow urine. Cr 16.7 today. Review of Systems Review of Systems: All systems reviewed & are unremarkable except as noted in HPI and below Exam Narrative: General: Awake, alert, comfortable, no acute distress HEENT: Normocephalic, atraumatic, sclerae anicteric Respiratory: Normal respiratory effort, no accessory muscle use Abdomen: Nondistended, soft, nontender : 3 way catheter draining clear light yellow urine, off CBI, left neph tube with light pink output, right neph tube with clear yellow output Skin: Facial skin cancer noted, warm and dry Neurologic: No focal neuro deficits noted Psychiatric: Appropriate mood and affect, judgment and insight intact Objective Data Vital Signs Vital Signs: Vital Signs - 24 hr 11/17/23 21:12 11/17/23 20:00 11/17/23 20:00 Temperature 97.6 F Pulse Rate 83 80 Respiratory Rate 17 Blood Pressure 151/90 H Pulse Oximetry 98 Oxygen Delivery Room Air 11/18/23 00:00 11/18/23 04:00 11/18/23 05:26 Temperature 98.4 F Pulse Rate 83 64 87 Respiratory Rate 14 Blood Pressure 151/97 H Pulse Oximetry 97 Oxygen Delivery 11/18/23 10:40 11/18/23 08:00 11/18/23 14:00 Temperature 99.1 F Pulse Rate 87 108 H Respiratory Rate 14 20 Blood Pressure 151/97 H 133/85 Pulse Oximetry 97 98 Oxygen Delivery Room Air Intake/Output Intake/Output: Intake & Output 11/15/23 11/16/23 11/17/23 11/18/23 23:59 23:59 23:59 23:59 Intake Total 2490 442 103 8309 Output Total 1870 2850 2250 2990 Balance 662 -2260 -1520 -8290 Meds/Results Medications: Active Medications Generic Name Dose Route Start Last Admin Trade Name Freq PRN Reason Stop Dose Admin Acetaminophen 650 mg 11/13/23 16:16 11/18/23 12:50 Acetaminophen 325 Mg Tablet PO 650 mg Q6H PRN Administration Mild Pain (1-3) or Fever Calcium Carbonate 1,000 mg 11/16/23 08:00 11/18/23 12:49
[2023-11-18] MEDS: oxyBUTYnin CHLORIDE 5 MG TABLET PO (21:08)
[2023-11-19] VITALS (10 sets, daily range): BP systolic 133–148; BP diastolic 84–91; PULSE 71–99; RESP 16–18; TEMP 35.9–36.7; O2SAT 96–98
[2023-11-19] MEDS: ACETAMINOPHEN 325 MG TABLET 650 MG PO ×2 (05:22→11:39)
[2023-11-19 06:22] LABS: Basophils Absolute Auto 0.1 K/mm3 (0.0-0.1); Basophils Percent Auto 0.9 % (0.2-1.2); Eosinophils Absolute Auto 0.3 K/mm3 (0-0.3); Eosinophils Percent Auto 4.1 % (0-4.4); Hematocrit 29.2 % (42.0-52.0); Hemoglobin 9.2 g/dL (14.0-18.0); Immature Granulocyte Absolute 0.05 K/mm3 (0.00-0.031); Immature Granulocyte Percent A 0.6 % (0-0.5); Lymphocytes Absolute Auto 1.25 K/mm3 (0.9-3.2); Lymphocytes Percent Auto 15.5 % (18.3-44.2); Mean Corpuscular HGB Conc 31.5 g/dl (32-36); Mean Corpuscular Hemoglobin 27.8 pg (26-34); Mean Corpuscular Volume 88.2 fl (80-100); Mean Platelet Volume 9.7 fl (7.4-10.4); Monocytes Absolute Auto 0.8 K/mm3 (0.1-0.6); Monocytes Percent Auto 9.6 % (2.6-8.5); Neutrophils Absolute Auto 5.6 K/mm3 (1.3-6.7); Neutrophils Percent Auto 69.3 % (45.5-73.1); Platelet Count Result 200 k/mm3 (150-375); Red Blood Count 3.31 M/mm3 (4.6-6.20); Red Cell Distribution Width 14.9 % (11.5-14.5); White Blood Count 8.1 K/mm3 (4.5-10.0)
[2023-11-19 06:48] LABS: Alanine Aminotransferase 14 U/L (6-50); Albumin Level 3.6 g/dL (3.5-5.1); Alkaline Phosphatase 85 U/L (38-126); Anion Gap 14 mmol/L (8-16); Aspartate Amino Transferase 16 U/L (17-59); Bilirubin,Total 0.5 mg/dL (0.2-1.3); Blood Urea Nitrogen 118 mg/dL (9-20); Calcium 8.1 mg/dL (8.4-10.2); Carbon Dioxide 22 mmol/L (22-30); Chloride 98 mmol/L (98-107); Glucose 103 mg/dL (65-110); Potassium 3.7 mmol/L (3.4-5.0); Sodium 134 mmol/L (137-145)
[2023-11-19 06:53] LABS: Estimated CRCL calculation 5 ml/min; Estimated Glomerular Filt Rate 3
[2023-11-19] MEDS: TAMSULOSIN HCL 0.4 MG CAPSULE PO (08:58)
[2023-11-19] MEDS: levoFLOXacin 500 MG TABLET PO (08:59)
[2023-11-19] MEDS: CALCIUM CARBONATE (OSCAL) 500 MG TABLET 1000 MG PO ×3 (09:00→16:18)
[2023-11-19] MEDS: FINASTERIDE 5 MG TABLET PO (09:00)
--- NOTE | 2023-11-19 10:15 | P.PNNP_ITS ---
Progress Note: A&P Assessment and Plan (1) Acute kidney injury: Code(s): N17.9 - Acute kidney failure, unspecified Status: Acute Assessment and Plan: * due to obstructive uropathy/urinary retention * evidence of bilateral hydronephrosis by CT imaging in ER * gutiérrez catheter in place * s/p bilateral nephrostomy tube placement (on 11/18/23) * follow trend of renal function and UOP * making good urine output * BUN and creatinine still indicating inability to clear uremic toxins... * concerning that creatinine remains quite elevated -- he may have suffered irreparable damage to his kidneys (2) Stage 3b chronic kidney disease: Code(s): N18.32 - Chronic kidney disease, stage 3b Status: Chronic Assessment and Plan: * last creatinine was 1.9mg/dl in July 2023 * will try to obtain records from [facility] given recent admission there * presumably due to mulitple bouts of BRYAN/ARF in association with obstructive uropathy (3) Bilateral hydronephrosis: Code(s): N13.30 - Unspecified hydronephrosis Status: Acute Assessment and Plan: * as noted on admission imaging * likely secondary to chronic outlet obstruction * unable to have stents in the past as ureteral orifices were not visible during cystoscopy * Urology following (4) Metabolic acidosis: Code(s): E87.20 - Acidosis, unspecified Status: Acute Assessment and Plan: * resolved * likely secondary to BRYAN/ARF * was on bicarbonate gtt to compensate with improvement noted * follow CO2 levels (5) Urinary tract infection: Code(s): N39.0 - Urinary tract infection, site not specified Status: Acute Assessment and Plan: * admission UA highly suggestive * follow-up on urine culture - Klebsiella noted * on antibiotics (6) Anemia: Code(s): D64.9 - Anemia, unspecified Status: Acute Assessment and Plan: * suspect related to severe BRYAN/ARF * likely some contributions from hematuria * PRBC per protocol * follow trend of H/H (7) Benign prostate hyperplasia: Code(s): N40.0 - Benign prostatic hyperplasia without lower urinary tract symptoms Status: Chronic Assessment and Plan: * chronic and long standing issue (as noted by his previous hospitalizations) * continue tamsulosin and finasteride * continue gutiérrez catheter * compliance with follow-up with this issue is an ongoing issue Will continue to follow. Subjective Date/time seen: 11/19/23 10:15 Interval history: Follow-up for acute kidney injury/acute renal failure on chronic kidney disease. S/P bilateral nephrostomy tube placement by IR yesterday and he tolerated this intervention reasonably well; continues to make good urine output but BUN + creatinine remain elevated; no apparent distress noted; no other issues/events overnight. Exam Narrative: General: WD/WN male in NAD Heart: normal S1 and S2; no rub Lungs: clear to auscultation Abdomen: soft, nontender, nondistended, positive bowel sounds Extremities: no cyanosis or clubbing; no edema Skin: warm and dry Objective Data Vital Signs Vital Signs: Vital Signs Temp Pulse Resp BP Pulse Ox O2 Del Method 11/19/23 08:00 74 11/19/23 05:50 96.7 F L 85 18 148/91 H 96 11/19/23 04:00 98 11/19/23 00:00 74
--- NOTE | 2023-11-19 10:15 | PM.PNNEP ---
Progress Note: A&P Assessment and Plan (1) Acute kidney injury: Code(s): N17.9 - Acute kidney failure, unspecified Status: Acute Assessment and Plan: due to obstructive uropathy/urinary retention evidence of bilateral hydronephrosis by CT imaging in ER gutiérrez catheter in place s/p bilateral nephrostomy tube placement (on 11/18/23) follow trend of renal function and UOP making good urine output BUN and creatinine still indicating inability to clear uremic toxins... concerning that creatinine remains quite elevated -- he may have suffered irreparable damage to his kidneys (2) Stage 3b chronic kidney disease: Code(s): N18.32 - Chronic kidney disease, stage 3b Status: Chronic Assessment and Plan: last creatinine was 1.9mg/dl in July 2023 will try to obtain records from [facility] given recent admission there presumably due to mulitple bouts of BRYAN/ARF in association with obstructive uropathy (3) Bilateral hydronephrosis: Code(s): N13.30 - Unspecified hydronephrosis Status: Acute Assessment and Plan: as noted on admission imaging likely secondary to chronic outlet obstruction unable to have stents in the past as ureteral orifices were not visible during cystoscopy Urology following (4) Metabolic acidosis: Code(s): E87.20 - Acidosis, unspecified Status: Acute Assessment and Plan: resolved likely secondary to BRYAN/ARF was on bicarbonate gtt to compensate with improvement noted follow CO2 levels (5) Urinary tract infection: Code(s): N39.0 - Urinary tract infection, site not specified Status: Acute Assessment and Plan: admission UA highly suggestive follow-up on urine culture - Klebsiella noted on antibiotics (6) Anemia: Code(s): D64.9 - Anemia, unspecified Status: Acute Assessment and Plan: suspect related to severe BRYAN/ARF likely some contributions from hematuria PRBC per protocol follow trend of H/H (7) Benign prostate hyperplasia: Code(s): N40.0 - Benign prostatic hyperplasia without lower urinary tract symptoms Status: Chronic Assessment and Plan: chronic and long standing issue (as noted by his previous hospitalizations) continue tamsulosin and finasteride continue gutiérrez catheter compliance with follow-up with this issue is an ongoing issue Will continue to follow. Subjective Date/time seen: 11/19/23 10:15 Interval history: Follow-up for acute kidney injury/acute renal failure on chronic kidney disease. S/P bilateral nephrostomy tube placement by IR yesterday and he tolerated this intervention reasonably well; continues to make good urine output but BUN + creatinine remain elevated; no apparent distress noted; no other issues/events overnight. Exam Narrative: General: WD/WN male in NAD Heart: normal S1 and S2; no rub Lungs: clear to auscultation Abdomen: soft, nontender, nondistended, positive bowel sounds Extremities: no cyanosis or clubbing; no edema Skin: warm and dry Objective Data Vital Signs Vital Signs: Vital Signs Temp Pulse Resp BP Pulse Ox O2 Del Method 11/19/23 08:00 74 11/19/23 05:50 96.7 F L 85 18 148/91 H 96 11/19/23 04:00 98 11/19/23 00:00 74 11/18/23 20:00 99 11/18/23 20:00 Room Air 11/18/23 21:20 97.3 F L 67 20 153/87 H 97 11/18/23 16:00 90 11/18/23 12:00 91 11/18/23 14:00 99.1 F 108 H 20 133/85 98 Intake/Output Intake/Output: Intake & Output 11/16/23 11/17/23 11/18/23 11/19/23 23:59 23:59 23:59 23:59 Intake Total 514 967 4830 240 Output Total 2850 2250 4290 1015 Balance -2260 -1520 -2940 -775 Meds/Results Medications: Active Medications Generic Name Dose Route Start Last Admin Trade Name Angie PRN Reason Stop Dose Admin Acetaminophen 650 mg 11/13/23 16:16 11/19/23 05:22 Acetaminoph
--- NOTE | 2023-11-19 13:15 | PM.IMPN ---
Progress Note: A&P Assessment and Plan (1) Gross hematuria: Code(s): R31.0 - Gross hematuria Status: Acute Assessment and Plan: retuned today,11/19/2023 pt Rubio catheter with gross hematuria and clots -continue to monitor, I&O, H&H q. 6 hours -urology following -recheck CBC, CMP, (2) Urinary tract infection: Code(s): N39.0 - Urinary tract infection, site not specified Status: Acute Assessment and Plan: Urine culture with growth of Klebsiella aerogenes( final) -continue Levaquin 500 mg p.o. every 48 hours(sensitive) (3) Benign prostate hyperplasia: Code(s): N40.0 - Benign prostatic hyperplasia without lower urinary tract symptoms Status: Acute Assessment and Plan: Severely enlarged prostate Continue home medication tamsulosin and finasteride Has previously been recommended for PAE; he has been noncompliant with follow up Will need some kind of outlet procedure in the future, however follow-up and compliance remains an issue -of note pt has agreed to subacute placement at discharge 11/19/2023 (4) Bilateral hydronephrosis: Code(s): N13.30 - Unspecified hydronephrosis Status: Acute Assessment and Plan: Moderate bilateral hydronephrosis noted on imaging which is a chronic finding due to outlet obstruction Not a candidate for ureteral stents as last cystoscopy ureteral orifices were not able to be located Bilateral percutaneous nephrostomy tubes placed per IR . He tolerated this well. (5) Acute on chronic kidney failure: Code(s): N17.9 - Acute kidney failure, unspecified; N18.9 - Chronic kidney disease, unspecified Status: Acute Assessment and Plan: Suspect this is from ongoing post renal obstruction -patient with close following with Nephrology/Urology, discussion with Nephrology who will continue surveillance and possible initiation of dialysis, will continue to monitor -Creatinine remains elevated at 16.50-this is some improvement -Hopeful continued improvement following nephrostomy tube placement -continue to trend serum creatinine daily Plan Continue home medications: VTE Prophylaxis: DIET: Renal diet Anticipated hospital stay: > 5 days Code Status: Full Subjective Date/time seen: 11/19/23 13:15 Interval history: Interval history: This is a 63-year-old smoker with a history of BPH, chronic bladder outlet obstruction, chronic kidney disease, history of noncompliance with medical treatment, bipolar disorder, COPD.? He presents on 11/13 with complaints of milky urine and nausea and vomiting.? CT demonstrating enlarged prostate with outlet obstruction moderate to severe bilateral hydronephrosis and nonobstructing left renal stone.? He also had hemoglobin of 8.6.? He had recently had a cysto with clot evacuation in March 2023 and April 2023.? Previously ureteral orifices were not visible so he is not a candidate for ureteral stents.? Nephrostomy tubes are a consideration.? He was recommended to have a PAE but was lost to follow-up and noncompliance. 11/15/23? 14:00 Interval history: No acute overnight events.? The patient has had some nausea he is unsure if he has abdominal pain or not.? He often has eccentric complaints. ?11/16:? Assumed care for patient, patient denies any overnight events, CBI can be titrated to off, there are no evidence clots in the bladder on CT or renal bladder ultrasound.? Urine with preliminary results of Gram-negative bacilli :??Patient seen this morning, he is resting with eyes closed in no acute distress he denies any overnight events.? CBI has been discontinued, Rubio has yellow urine with some urine sediments, no evidence of hematuria.? Discussed with managed services sales consultant on 11/16 in reference to continued elevated creatinine as well as deescalation to p.o. antibiotics Levaquin, patient received loading dose of 750 mg yesterday, then will continue Levaquin 500 mg p.o. Q 48 hours.? [address]
[2023-11-20] VITALS (8 sets, daily range): BP systolic 106–147; BP diastolic 83–93; PULSE 63–102; RESP 16–20; TEMP 36.3–36.4; O2SAT 94–98
[2023-11-20] MEDS: ACETAMINOPHEN 325 MG TABLET 650 MG PO (03:00)
[2023-11-20] MEDS: METOCLOPRAMIDE HCL INJ 10 MG/2 ML VIAL 5 MG IV PUSH (05:40)
[2023-11-20 06:07] LABS: Basophils Absolute Auto 0.1 K/mm3 (0.0-0.1); Basophils Percent Auto 1.1 % (0.2-1.2); Eosinophils Absolute Auto 0.5 K/mm3 (0-0.3); Hematocrit 28.3 % (42.0-52.0); Immature Granulocyte Absolute 0.04 K/mm3 (0.00-0.031); Immature Granulocyte Percent A 0.5 % (0-0.5); Lymphocytes Absolute Auto 1.59 K/mm3 (0.9-3.2); Lymphocytes Percent Auto 19.8 % (18.3-44.2); Mean Corpuscular HGB Conc 31.8 g/dl (32-36); Mean Corpuscular Hemoglobin 28.2 pg (26-34); Mean Corpuscular Volume 88.7 fl (80-100); Mean Platelet Volume 9.5 fl (7.4-10.4); Monocytes Absolute Auto 0.7 K/mm3 (0.1-0.6); Monocytes Percent Auto 8.7 % (2.6-8.5); Neutrophils Absolute Auto 5.1 K/mm3 (1.3-6.7); Neutrophils Percent Auto 63.9 % (45.5-73.1); Platelet Count Result 182 k/mm3 (150-375); Red Blood Count 3.19 M/mm3 (4.6-6.20)
[2023-11-20 06:27] LABS: Alanine Aminotransferase 12 U/L (6-50); Albumin Level 3.5 g/dL (3.5-5.1); Alkaline Phosphatase 75 U/L (38-126); Anion Gap 15 mmol/L (8-16); Aspartate Amino Transferase 14 U/L (17-59); Bilirubin,Total 0.4 mg/dL (0.2-1.3); Blood Urea Nitrogen 115 mg/dL (9-20); Calcium 8.8 mg/dL (8.4-10.2); Carbon Dioxide 20 mmol/L (22-30); Chloride 98 mmol/L (98-107); Glucose 110 mg/dL (65-110); Potassium 3.8 mmol/L (3.4-5.0); Sodium 133 mmol/L (137-145)
[2023-11-20 06:36] LABS: Estimated CRCL calculation 5 ml/min; Estimated Glomerular Filt Rate 3
[2023-11-20] MEDS: oxyBUTYnin CHLORIDE 5 MG TABLET PO (08:28)
[2023-11-20] MEDS: TAMSULOSIN HCL 0.4 MG CAPSULE PO (08:28)
[2023-11-20] MEDS: CALCIUM CARBONATE (OSCAL) 500 MG TABLET 1000 MG PO ×3 (08:28→16:30)
[2023-11-20] MEDS: FINASTERIDE 5 MG TABLET PO (08:28)
--- NOTE | 2023-11-20 10:38 | PM.IMPN ---
Progress Note: A&P Assessment and Plan (1) Gross hematuria: Code(s): R31.0 - Gross hematuria Status: Acute Assessment and Plan: pt Rubio catheter with some hematuria and clots -continue to monitor, I&O, H&H q. 6 hours -urology following -recheck CBC, CMP, (2) Urinary tract infection: Code(s): N39.0 - Urinary tract infection, site not specified Status: Acute Assessment and Plan: Urine culture with growth of Klebsiella aerogenes( final) -continue Levaquin 500 mg p.o. every 48 hours(sensitive) (3) Benign prostate hyperplasia: Code(s): N40.0 - Benign prostatic hyperplasia without lower urinary tract symptoms Status: Acute Assessment and Plan: Severely enlarged prostate Continue home medication tamsulosin and finasteride Has previously been recommended for PAE; he has been noncompliant with follow up Will need some kind of outlet procedure in the future, however follow-up and compliance remains an issue -of note pt has agreed to subacute placement at discharge 11/19/2023 (4) Bilateral hydronephrosis: Code(s): N13.30 - Unspecified hydronephrosis Status: Acute Assessment and Plan: Left kidney biopsy Anaerobic Culture: reveals: Preliminary 11/20/23 Q SOURCE: LT KIDNEY STATUS: PRELIMINARY GRAM STAIN: Moderate White blood cells seen No organisms seen NOTE: THIS RESULT IS FLAGGED ABNORMAL THIS TEST WAS PERFORMED AT: [id number] [id number] AGATHA HOFFMANN MD Aerobic Culture Preliminary 11/20/23 Q SOURCE: LT KIDNEY STATUS: PRELIMINARY ISOLATE 1: Scant growth of Klebsiella aerogenes (Enterobacter) Moderate bilateral hydronephrosis noted on imaging which is a chronic finding due to outlet obstruction Not a candidate for ureteral stents as last cystoscopy ureteral orifices were not able to be located Bilateral percutaneous nephrostomy tubes placed per IR . He tolerated this well. (5) Acute on chronic kidney failure: Code(s): N17.9 - Acute kidney failure, unspecified; N18.9 - Chronic kidney disease, unspecified Status: Acute Assessment and Plan: Suspect this is from ongoing post renal obstruction -patient with close following with Nephrology/Urology, discussion with Nephrology who will continue surveillance and possible initiation of dialysis, will continue to monitor -Creatinine remains elevated at 15.70-this is continued improvement since admission -Hopeful continued improvement following nephrostomy tube placement -continue to trend serum creatinine daily Plan Continue home medications: VTE Prophylaxis: DIET: Renal diet Anticipated hospital stay: > 5 days Code Status: Full Subjective Date/time seen: 11/20/23 10:38 Interval history: Interval history: This is a 63-year-old smoker with a history of BPH, chronic bladder outlet obstruction, chronic kidney disease, history of noncompliance with medical treatment, bipolar disorder, COPD.? He presents on 11/13 with complaints of milky urine and nausea and vomiting.? CT demonstrating enlarged prostate with outlet obstruction moderate to severe bilateral hydronephrosis and nonobstructing left renal stone.? He also had hemoglobin of 8.6.? He had recently had a cysto with clot evacuation in March 2023 and April 2023.? Previously ureteral orifices were not visible so he is not a candidate for ureteral stents.? Nephrostomy tubes are a consideration.? He was recommended to have a PAE but was lost to follow-up and noncompliance. 11/15/23? 14:00 Interval history: No acute overnight events.? The patient has had some nausea he is unsure if he has abdominal pain or not.? He often has eccentric
--- NOTE | 2023-11-20 11:32 | PM.PNNEP ---
Progress Note: A&P Assessment and Plan (1) Acute kidney injury: Code(s): N17.9 - Acute kidney failure, unspecified Status: Acute Assessment and Plan: due to obstructive uropathy/urinary retention evidence of bilateral hydronephrosis by CT imaging in ER gutiérrez catheter in place s/p bilateral nephrostomy tube placement (on 11/18/23) follow trend of renal function and UOP making good urine output BUN and creatinine still indicating inability to clear uremic toxins... concerning that creatinine remains quite elevated -- he may have suffered irreparable damage to his kidneys (2) Stage 3b chronic kidney disease: Code(s): N18.32 - Chronic kidney disease, stage 3b Status: Chronic Assessment and Plan: last creatinine was 1.9mg/dl in July 2023 presumably due to mulitple bouts of BRYAN/ARF in association with obstructive uropathy (3) Bilateral hydronephrosis: Code(s): N13.30 - Unspecified hydronephrosis Status: Acute Assessment and Plan: as noted on admission imaging likely secondary to chronic outlet obstruction unable to have stents in the past as ureteral orifices were not visible during cystoscopy Urology following (4) Metabolic acidosis: Code(s): E87.20 - Acidosis, unspecified Status: Acute Assessment and Plan: resolved likely secondary to BRYAN/ARF was on bicarbonate gtt to compensate with improvement noted follow CO2 levels (5) Urinary tract infection: Code(s): N39.0 - Urinary tract infection, site not specified Status: Acute Assessment and Plan: admission UA highly suggestive follow-up on urine culture - Klebsiella noted on antibiotics (6) Anemia: Code(s): D64.9 - Anemia, unspecified Status: Acute Assessment and Plan: suspect related to severe BRYAN/ARF likely some contributions from hematuria PRBC per protocol follow trend of H/H (7) Benign prostate hyperplasia: Code(s): N40.0 - Benign prostatic hyperplasia without lower urinary tract symptoms Status: Chronic Assessment and Plan: chronic and long standing issue (as noted by his previous hospitalizations) continue tamsulosin and finasteride continue gutiérrez catheter compliance with follow-up with this issue is an ongoing issue Long extensive discussion (greater than 20 minutes) with the patient with regard to his severe renal dysfunction and lack of significant improvement despite all interventions to date including placement of a Gutiérrez catheter, IV fluid hydration, and bilateral nephrostomy tubes. It would seem that these interventions have helped improve his urine output and maintain stability in his volume status but it seems clear that his kidneys are not clearing the uremic toxins as well as they should. I voiced my concerns with the patient that if his BUN and creatinine do not come down soon, he may require renal replacement therapy / dialysis more so for clearance of the uremic toxins and associated complications that can occur from uremia. He appeared to voice understanding. Will continue to follow. Subjective Date/time seen: 11/20/23 11:32 Interval history: Follow-up for acute kidney injury/acute renal failure on chronic kidney disease. Overall, continues to feel reasonably well in general; no apparent distress noted; continues to make good urine output from gutiérrez catheter along with bilateral nephrostomy tubes; only marginal inprovement in renal function (BUN/creatinine) despite all interventions to date. Exam Narrative: General: WD/WN male in NAD Heart: normal S1 and S2; no rub Lungs: clear to auscultation Abdomen: soft, nontender, nondistended, positive bowel sounds Extremities: no cyanosis or clubbing; no edema Skin: warm and intact Objective Data Vital Signs Vital Signs: Vital Signs Temp Pulse Resp BP Pulse Ox O2 Del Method 11/20/23 11:00 97.3 F L
--- NOTE | 2023-11-20 11:32 | P.PNNP_ITS ---
Progress Note: A&P Assessment and Plan (1) Acute kidney injury: Code(s): N17.9 - Acute kidney failure, unspecified Status: Acute Assessment and Plan: * due to obstructive uropathy/urinary retention * evidence of bilateral hydronephrosis by CT imaging in ER * gutiérrez catheter in place * s/p bilateral nephrostomy tube placement (on 11/18/23) * follow trend of renal function and UOP * making good urine output * BUN and creatinine still indicating inability to clear uremic toxins... * concerning that creatinine remains quite elevated -- he may have suffered irreparable damage to his kidneys (2) Stage 3b chronic kidney disease: Code(s): N18.32 - Chronic kidney disease, stage 3b Status: Chronic Assessment and Plan: * last creatinine was 1.9mg/dl in July 2023 * presumably due to mulitple bouts of BRYAN/ARF in association with obstructive uropathy (3) Bilateral hydronephrosis: Code(s): N13.30 - Unspecified hydronephrosis Status: Acute Assessment and Plan: * as noted on admission imaging * likely secondary to chronic outlet obstruction * unable to have stents in the past as ureteral orifices were not visible during cystoscopy * Urology following (4) Metabolic acidosis: Code(s): E87.20 - Acidosis, unspecified Status: Acute Assessment and Plan: * resolved * likely secondary to BRYAN/ARF * was on bicarbonate gtt to compensate with improvement noted * follow CO2 levels (5) Urinary tract infection: Code(s): N39.0 - Urinary tract infection, site not specified Status: Acute Assessment and Plan: * admission UA highly suggestive * follow-up on urine culture - Klebsiella noted * on antibiotics (6) Anemia: Code(s): D64.9 - Anemia, unspecified Status: Acute Assessment and Plan: * suspect related to severe BRYAN/ARF * likely some contributions from hematuria * PRBC per protocol * follow trend of H/H (7) Benign prostate hyperplasia: Code(s): N40.0 - Benign prostatic hyperplasia without lower urinary tract symptoms Status: Chronic Assessment and Plan: * chronic and long standing issue (as noted by his previous hospitalizations) * continue tamsulosin and finasteride * continue gutiérrez catheter * compliance with follow-up with this issue is an ongoing issue Long extensive discussion (greater than 20 minutes) with the patient with regard to his severe renal dysfunction and lack of significant improvement despite all interventions to date including placement of a Gutiérrez catheter, IV fluid hydration, and bilateral nephrostomy tubes. It would seem that these interventions have helped improve his urine output and maintain stability in his volume status but it seems clear that his kidneys are not clearing the uremic toxins as well as they should. I voiced my concerns with the patient that if his BUN and creatinine do not come down soon, he may require renal replacement therapy / dialysis more so for clearance of the uremic toxins and associated complications that can occur from uremia. He appeared to voice understanding. Will continue to follow. Subjective Date/time seen: 11/20/23 11:32 Interval history: Follow-up for acute kidney injury/acute renal failure on chronic kidney disease. Overall, continues to feel reasonably well in general; no apparent distress noted; continues to make good urine output from gutiérrez catheter along with bilateral nephrostomy tubes; only marginal inprovement in renal function (BUN/creatinine) despite
[2023-11-21] VITALS (7 sets, daily range): BP systolic 120–155; BP diastolic 96–97; PULSE 75–118; RESP 18–20; TEMP 36.1–36.4; O2SAT 97–98
[2023-11-21 06:27] LABS: Basophils Absolute Auto 0.1 K/mm3 (0.0-0.1); Basophils Percent Auto 1.1 % (0.2-1.2); Eosinophils Absolute Auto 0.5 K/mm3 (0-0.3); Eosinophils Percent Auto 6.6 % (0-4.4); Hematocrit 29.6 % (42.0-52.0); Hemoglobin 9.5 g/dL (14.0-18.0); Immature Granulocyte Absolute 0.05 K/mm3 (0.00-0.031); Immature Granulocyte Percent A 0.6 % (0-0.5); Lymphocytes Absolute Auto 1.58 K/mm3 (0.9-3.2); Lymphocytes Percent Auto 19.6 % (18.3-44.2); Mean Corpuscular HGB Conc 32.1 g/dl (32-36); Mean Corpuscular Hemoglobin 28.4 pg (26-34); Mean Corpuscular Volume 88.4 fl (80-100); Mean Platelet Volume 9.9 fl (7.4-10.4); Monocytes Absolute Auto 0.6 K/mm3 (0.1-0.6); Monocytes Percent Auto 7.9 % (2.6-8.5); Neutrophils Absolute Auto 5.2 K/mm3 (1.3-6.7); Neutrophils Percent Auto 64.2 % (45.5-73.1); Platelet Count Result 205 k/mm3 (150-375); Red Blood Count 3.35 M/mm3 (4.6-6.20); Red Cell Distribution Width 15.3 % (11.5-14.5); White Blood Count 8.1 K/mm3 (4.5-10.0)
[2023-11-21 07:14] LABS: Alanine Aminotransferase 13 U/L (6-50); Albumin Level 3.8 g/dL (3.5-5.1); Alkaline Phosphatase 88 U/L (38-126); Anion Gap 15 mmol/L (8-16); Aspartate Amino Transferase 14 U/L (17-59); Bilirubin,Total 0.5 mg/dL (0.2-1.3); Calcium 9.4 mg/dL (8.4-10.2); Carbon Dioxide 21 mmol/L (22-30); Chloride 101 mmol/L (98-107); Estimated CRCL calculation 5 ml/min; Estimated Glomerular Filt Rate 3; Glucose 104 mg/dL (65-110); Sodium 137 mmol/L (137-145)
[2023-11-21 07:16] LABS: Blood Urea Nitrogen 127 mg/dL (9-20)
[2023-11-21] MEDS: FINASTERIDE 5 MG TABLET PO (09:12)
[2023-11-21] MEDS: levoFLOXacin 500 MG TABLET PO (09:12)
[2023-11-21] MEDS: CALCIUM CARBONATE (OSCAL) 500 MG TABLET 1000 MG PO ×2 (09:13→16:19)
[2023-11-21] MEDS: TAMSULOSIN HCL 0.4 MG CAPSULE PO (09:13)
--- NOTE | 2023-11-21 09:14 | PM.IMPN ---
Progress Note: A&P Assessment and Plan (1) Gross hematuria: Code(s): R31.0 - Gross hematuria Status: Acute Assessment and Plan: Patient with gutiérrez catheter No evidence of clots in the bladder on CT or renal/bladder US Continue to monitor Hemoglobin rising slowly Urology following Recheck CBC, CMP (2) Urinary tract infection: Code(s): N39.0 - Urinary tract infection, site not specified Status: Acute Assessment and Plan: Urine culture with growth of Klebsiella aerogenes( final) Continue Levaquin 500 mg p.o. (last dose today - 11/20) (3) Benign prostate hyperplasia: Code(s): N40.0 - Benign prostatic hyperplasia without lower urinary tract symptoms Status: Acute Assessment and Plan: Patient with Severely enlarged prostate Continue home medication tamsulosin and finasteride Has previously been recommended for PAE; he has been noncompliant with follow up Will need some kind of outlet procedure in the future, however follow-up and compliance remains an issue Plan for eventual internalization of stents, per urology recs; will plan for urology outpatient follow up (4) Bilateral hydronephrosis: Code(s): N13.30 - Unspecified hydronephrosis Status: Acute Assessment and Plan: Left kidney biopsy Anaerobic Culture: reveals: Preliminary 11/20/23 Q SOURCE: LT KIDNEY STATUS: PRELIMINARY GRAM STAIN: Moderate White blood cells seen No organisms seen NOTE: THIS RESULT IS FLAGGED ABNORMAL THIS TEST WAS PERFORMED AT: [email or web address] [id number] AGATHA HOFFMANN MD Aerobic Culture Preliminary 11/20/23 Q SOURCE: LT KIDNEY STATUS: PRELIMINARY ISOLATE 1: Scant growth of Klebsiella aerogenes (Enterobacter) Moderate bilateral hydronephrosis noted on imaging which is a chronic finding due to outlet obstruction Not a candidate for ureteral stents as last cystoscopy ureteral orifices were not able to be located Bilateral percutaneous nephrostomy tubes placed per IR . He tolerated this well. 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 -patient with close following with Nephrology/Urology, discussion with Nephrology who will continue surveillance and possible initiation of dialysis, will continue to monitor -Creatinine remains elevated at 15.10-this is continued improvement since admission -Hopeful continued improvement following nephrostomy tube placement -continue to trend serum creatinine daily Plan Continue home medications: VTE Prophylaxis: DIET: Renal diet Anticipated hospital stay: > 5 days Code Status: Full Subjective Date/time seen: 11/21/23 09:14 Interval history: Patient resting comfortably in bed this morning. He endorses pain of his bilateral flanks, left worse than right. He also endorses dizziness and lip-tingling when he stands up to transfer from bed to chair. Denies shortness of breath, chest pain, leg swelling, abdominal pain, nausea, or vomiting. Exam Narrative: General: Awake, alert, comfortable, no acute distress HEENT: Normocephalic, atraumatic, sclerae anicteric Respiratory: Normal respiratory effort, no accessory muscle use Abdomen: Nondistended, soft, nontender : New today, gutiérrez cath with hematuria, left neph tube with light red output, right neph tube with serous output; bilateral flank tenderness, worse on left Skin: Facial skin cancer noted, warm and dry Neurologic: No focal neuro defic
--- NOTE | 2023-11-21 09:25 | WPDUROPN2 ---
Progress Note: A&P Assessment and Plan (1) Gross hematuria: Code(s): R31.0 - Gross hematuria Status: Acute Assessment and Plan: Resolved. CBI discontinued , urine remains clear No evidence of clots in the bladder on CT or renal/bladder US (2) Urinary tract infection: Code(s): N39.0 - Urinary tract infection, site not specified Status: Acute Assessment and Plan: Urine culture with growth of Klebsiella aerogenes Completed course of Levaquin today (3) Benign prostate hyperplasia: Code(s): N40.0 - Benign prostatic hyperplasia without lower urinary tract symptoms Status: Acute Assessment and Plan: Severely enlarged prostate Continue tamsulosin and finasteride Has previously been recommended for PAE; he has been noncompliant with follow up Will need some kind of outlet procedure in the future, however follow-up and compliance remains an issue (4) Bilateral hydronephrosis: Code(s): N13.30 - Unspecified hydronephrosis Status: Acute Assessment and Plan: Moderate bilateral hydronephrosis noted on imaging which is a chronic finding due to outlet obstruction Not a candidate for ureteral stents as last cystoscopy ureteral orifices were not able to be located Bilateral percutaneous nephrostomy tubes placed per IR on 11/18/2023. He tolerated this well. Plan for eventual internalization of stents; will plan for outpatient follow up (5) Acute on chronic kidney failure: Code(s): N17.9 - Acute kidney failure, unspecified; N18.9 - Chronic kidney disease, unspecified Status: Acute Assessment and Plan: Creatinine elevated to 18.3 on arrival Slight improvement today to 15.1 Hopeful continued improvement following nephrostomy tube placement Dialysis may be considered, nephrology is following Subjective Subjective Date/Time Seen: 11/21/23 09:25 Interval history: Andrey is feeling well today. No issues with Gutiérrez catheter or nephrostomy tubes. Reports some mild left flank discomfort that seems to be improving. Denies nausea or vomiting. Review of Systems Review of Systems: All systems reviewed & are unremarkable except as noted in HPI and below Exam Narrative: General: Awake, alert, comfortable, no acute distress HEENT: Normocephalic, atraumatic, sclerae anicteric Respiratory: Normal respiratory effort, no accessory muscle use Abdomen: Nondistended, soft, nontender : gutiérrez catheter draining clear light yellow urine, left neph tube with light pink output, right neph tube with clear yellow output Skin: Facial skin cancer noted, warm and dry Neurologic: No focal neuro deficits noted Psychiatric: Appropriate mood and affect, judgment and insight intact Objective Data Vital Signs Vital Signs: Vital Signs - 24 hr 11/20/23 14:00 11/20/23 12:00 11/20/23 16:00 Temperature 97.3 F L Pulse Rate 102 H 95 71 Respiratory Rate 20 Blood Pressure 118/93 H Pulse Oximetry 94 11/20/23 21:30 11/21/23 05:45 11/21/23 08:00 Temperature 97.6 F 97.5 F L Pulse Rate 101 H 100 75 Respiratory Rate 18 18 Blood Pressure 106/83 155/97 H Pulse Oximetry 98 97 Intake/Output Intake/Output: Intake & Output 11/18/23 11/19/23 11/20/23 11/21/23 23:59 23:59 23:59 23:59 Intake Total 1350 1020 1424 Output Total 4290 1705 2603 500 [facility] -[phone] Meds/Results Medications: Active Medications Generic Name Dose Route Start Last Admin Trade Name Freq PRN Reason Stop Dose Admin Acetaminophen 650 mg 11/13/23 16:16 11/20/23 03:00 Acetaminophen 325 Mg Tablet PO 650 mg Q6H PRN Administration Mild Pain (1-3) or Fever Calcium Carbonate 1,000 mg 11/16/23 08:00 11/21/23 09:13 Calcium Carbonate (Oscal) 500 Mg Tablet PO 11/25/23 17:01 1,000 mg TIDWM CHRIS Administration Finasteride 5 mg 11/14/23 09:00 11/21/23 09:12 Finasteride 5 Mg Tablet PO 5 mg QAM CHRIS Admini
--- NOTE | 2023-11-21 11:31 | P.PNNP_ITS ---
Progress Note: A&P Assessment and Plan (1) Acute kidney injury: Code(s): N17.9 - Acute kidney failure, unspecified Status: Acute Assessment and Plan: * due to obstructive uropathy/urinary retention * evidence of bilateral hydronephrosis by CT imaging in ER * gutiérrez catheter in place * s/p bilateral nephrostomy tube placement (on 11/18/23) * follow trend of renal function and UOP * making good urine output * BUN and creatinine still indicating inability to clear uremic toxins... * concerning that creatinine remains quite elevated -- he may have suffered irreparable damage to his kidneys * will order 24hr urine collection for creatinine clearance (2) Stage 3b chronic kidney disease: Code(s): N18.32 - Chronic kidney disease, stage 3b Status: Chronic Assessment and Plan: * last creatinine was 1.9mg/dl in July 2023 * presumably due to mulitple bouts of BRYAN/ARF in association with obstructive uropathy (3) Bilateral hydronephrosis: Code(s): N13.30 - Unspecified hydronephrosis Status: Acute Assessment and Plan: * as noted on admission imaging * likely secondary to chronic outlet obstruction * unable to have stents in the past as ureteral orifices were not visible during cystoscopy * Urology following (4) Metabolic acidosis: Code(s): E87.20 - Acidosis, unspecified Status: Acute Assessment and Plan: * resolved * likely secondary to BRYAN/ARF * was on bicarbonate gtt to compensate with improvement noted * follow CO2 levels (5) Urinary tract infection: Code(s): N39.0 - Urinary tract infection, site not specified Status: Acute Assessment and Plan: * admission UA highly suggestive * follow-up on urine culture - Klebsiella noted * on antibiotics (6) Anemia: Code(s): D64.9 - Anemia, unspecified Status: Acute Assessment and Plan: * suspect related to severe BRYAN/ARF * likely some contributions from hematuria * PRBC per protocol * follow trend of H/H (7) Benign prostate hyperplasia: Code(s): N40.0 - Benign prostatic hyperplasia without lower urinary tract symptoms Status: Chronic Assessment and Plan: * chronic and long standing issue (as noted by his previous hospitalizations) * continue tamsulosin and finasteride * continue gutiérrez catheter * compliance with follow-up with this issue is an ongoing issue Will continue to follow. Subjective Date/time seen: 11/21/23 11:31 Interval history: Follow-up for acute kidney injury/acute renal failure on chronic kidney disease. Still with only marginal improvement in renal function with interventions to date; continues to make good urine output and he reports that he is feeling well otherwise; no apparent distress noted at the time of my visit; no other acute complaints voiced. Exam Narrative: General: WD/WN male in NAD Heart: normal S1 and S2; no rub Lungs: clear to auscultation Abdomen: soft, nontender, nondistended, positive bowel sounds Extremities: no cyanosis or clubbing; no edema Skin: no rash Objective Data Vital Signs Vital Signs: Vital Signs Temp Pulse Resp BP Pulse Ox O2 Del Method 11/21/23 12:00 90 11/21/23 08:00 Room Air 11/21/23 08:00 75 11/21/23 05:45 97.5 F L 100 18 155/97 H 97 11/20/23
--- NOTE | 2023-11-21 11:31 | PM.PNNEP ---
Progress Note: A&P Assessment and Plan (1) Acute kidney injury: Code(s): N17.9 - Acute kidney failure, unspecified Status: Acute Assessment and Plan: due to obstructive uropathy/urinary retention evidence of bilateral hydronephrosis by CT imaging in ER gutiérrez catheter in place s/p bilateral nephrostomy tube placement (on 11/18/23) follow trend of renal function and UOP making good urine output BUN and creatinine still indicating inability to clear uremic toxins... concerning that creatinine remains quite elevated -- he may have suffered irreparable damage to his kidneys will order 24hr urine collection for creatinine clearance (2) Stage 3b chronic kidney disease: Code(s): N18.32 - Chronic kidney disease, stage 3b Status: Chronic Assessment and Plan: last creatinine was 1.9mg/dl in July 2023 presumably due to mulitple bouts of BRYAN/ARF in association with obstructive uropathy (3) Bilateral hydronephrosis: Code(s): N13.30 - Unspecified hydronephrosis Status: Acute Assessment and Plan: as noted on admission imaging likely secondary to chronic outlet obstruction unable to have stents in the past as ureteral orifices were not visible during cystoscopy Urology following (4) Metabolic acidosis: Code(s): E87.20 - Acidosis, unspecified Status: Acute Assessment and Plan: resolved likely secondary to BRYAN/ARF was on bicarbonate gtt to compensate with improvement noted follow CO2 levels (5) Urinary tract infection: Code(s): N39.0 - Urinary tract infection, site not specified Status: Acute Assessment and Plan: admission UA highly suggestive follow-up on urine culture - Klebsiella noted on antibiotics (6) Anemia: Code(s): D64.9 - Anemia, unspecified Status: Acute Assessment and Plan: suspect related to severe BRYAN/ARF likely some contributions from hematuria PRBC per protocol follow trend of H/H (7) Benign prostate hyperplasia: Code(s): N40.0 - Benign prostatic hyperplasia without lower urinary tract symptoms Status: Chronic Assessment and Plan: chronic and long standing issue (as noted by his previous hospitalizations) continue tamsulosin and finasteride continue gutiérrez catheter compliance with follow-up with this issue is an ongoing issue Will continue to follow. Subjective Date/time seen: 11/21/23 11:31 Interval history: Follow-up for acute kidney injury/acute renal failure on chronic kidney disease. Still with only marginal improvement in renal function with interventions to date; continues to make good urine output and he reports that he is feeling well otherwise; no apparent distress noted at the time of my visit; no other acute complaints voiced. Exam Narrative: General: WD/WN male in NAD Heart: normal S1 and S2; no rub Lungs: clear to auscultation Abdomen: soft, nontender, nondistended, positive bowel sounds Extremities: no cyanosis or clubbing; no edema Skin: no rash Objective Data Vital Signs Vital Signs: Vital Signs Temp Pulse Resp BP Pulse Ox O2 Del Method 11/21/23 12:00 90 11/21/23 08:00 Room Air 11/21/23 08:00 75 11/21/23 05:45 97.5 F L 100 18 155/97 H 97 11/20/23 21:30 97.6 F 101 H 18 106/83 98 11/20/23 16:00 71 11/20/23 14:00 97.3 F L 102 H 20 118/93 H 94 Intake/Output Intake/Output: Intake & Output 11/18/23 11/19/23 11/20/23 11/21/23 23:59 23:59 23:59 23:59 Intake Total 1350 1020 1424 240 Output Total 4290 1705 2603 500 [facility] -[phone] Meds/Results Medications: Active Medications Generic Name Dose Route Start Last Admin Trade Name Freq PRN Reason Stop Dose Admin Acetaminophen 650 mg 11/13/23 16:16 11/20/23 03:00 Acetaminophen 325 Mg Tablet PO 650 mg Q6H PRN Administration Mild Pain (1-3) or Fever
--- NOTE | 2023-11-21 12:08 | PCNWS ---
Weekly nutritional screen. Patient is tolerating current low K+ diet with adequate intake at 100%. No weight loss reported. No nutritional needs at this time.
[2023-11-22 06:00] VITALS: BP 137/88; PULSE 92; RESP 18; TEMP 36.3; O2SAT 97
[2023-11-22 07:10] LABS: Basophils Absolute Auto 0.1 K/mm3 (0.0-0.1); Basophils Percent Auto 0.9 % (0.2-1.2); Eosinophils Absolute Auto 0.5 K/mm3 (0-0.3); Eosinophils Percent Auto 6.2 % (0-4.4); Hematocrit 29.5 % (42.0-52.0); Hemoglobin 9.3 g/dL (14.0-18.0); Immature Granulocyte Absolute 0.03 K/mm3 (0.00-0.031); Immature Granulocyte Percent A 0.4 % (0-0.5); Lymphocytes Absolute Auto 1.38 K/mm3 (0.9-3.2); Lymphocytes Percent Auto 18.2 % (18.3-44.2); Mean Corpuscular HGB Conc 31.5 g/dl (32-36); Mean Corpuscular Hemoglobin 28.2 pg (26-34); Mean Corpuscular Volume 89.4 fl (80-100); Mean Platelet Volume 9.8 fl (7.4-10.4); Monocytes Absolute Auto 0.6 K/mm3 (0.1-0.6); Monocytes Percent Auto 7.3 % (2.6-8.5); Neutrophils Absolute Auto 5.1 K/mm3 (1.3-6.7); Platelet Count Result 195 k/mm3 (150-375); Red Cell Distribution Width 15.1 % (11.5-14.5); White Blood Count 7.6 K/mm3 (4.5-10.0)
[2023-11-22 07:29] LABS: Alanine Aminotransferase 14 U/L (6-50); Albumin Level 3.9 g/dL (3.5-5.1); Alkaline Phosphatase 85 U/L (38-126); Anion Gap 16 mmol/L (8-16); Aspartate Amino Transferase 16 U/L (17-59); Bilirubin,Total 0.4 mg/dL (0.2-1.3); Calcium 9.5 mg/dL (8.4-10.2); Carbon Dioxide 21 mmol/L (22-30); Chloride 99 mmol/L (98-107); Estimated CRCL calculation 5 ml/min; Estimated Glomerular Filt Rate 4; Glucose 106 mg/dL (65-110); Sodium 136 mmol/L (137-145)
[2023-11-22 07:55] LABS: Blood Urea Nitrogen 132 mg/dL (9-20)
[2023-11-22 08:00] VITALS: PULSE 92
[2023-11-22] MEDS: CALCIUM CARBONATE (OSCAL) 500 MG TABLET 1000 MG PO ×3 (08:56→16:45)
[2023-11-22] MEDS: FINASTERIDE 5 MG TABLET PO (09:07)
[2023-11-22] MEDS: TAMSULOSIN HCL 0.4 MG CAPSULE PO (09:07)
--- NOTE | 2023-11-22 09:47 | WPDUROPN2 ---
Progress Note: A&P Assessment and Plan (1) Gross hematuria: Code(s): R31.0 - Gross hematuria Status: Acute Assessment and Plan: Resolved. CBI discontinued , urine remains clear No evidence of clots in the bladder on CT or renal/bladder US (2) Urinary tract infection: Code(s): N39.0 - Urinary tract infection, site not specified Status: Acute Assessment and Plan: Urine culture with growth of Klebsiella aerogenes Completed course of Levaquin 11/21/2023 (3) Benign prostate hyperplasia: Code(s): N40.0 - Benign prostatic hyperplasia without lower urinary tract symptoms Status: Acute Assessment and Plan: Severely enlarged prostate Continue tamsulosin and finasteride Has previously been recommended for PAE; he has been noncompliant with follow up Will need some kind of outlet procedure in the future, however follow-up and compliance remains an issue Will need to continue with Gutiérrez catheter on discharge Will arrange outpatient urodynamics (4) Bilateral hydronephrosis: Code(s): N13.30 - Unspecified hydronephrosis Status: Acute Assessment and Plan: Moderate bilateral hydronephrosis noted on imaging which is a chronic finding due to outlet obstruction Bilateral percutaneous nephrostomy tubes placed per IR on 11/18/2023. He tolerated this well. Plan for eventual internalization of stents; will plan for outpatient follow up/referral to IR (5) Acute on chronic kidney failure: Code(s): N17.9 - Acute kidney failure, unspecified; N18.9 - Chronic kidney disease, unspecified Status: Acute Assessment and Plan: Creatinine elevated to 18.3 on arrival Slow improvement in renal function, creatinine down to 13.8 today Hopeful continued improvement following nephrostomy tube placement Dialysis may be considered, nephrology is following Subjective Subjective Date/Time Seen: 11/22/23 09:47 Interval history: Pressure is feeling well today. He does complain of some mild left flank discomfort that is improving. He has no other concerns. Gutiérrez catheter is in place, draining clear yellow urine. Bilateral nephrostomy tubes with clear yellow output. He denies nausea, vomiting, fever, chills. He is tolerating his diet. WBC has normalized, 7.6. Creatinine trending down to 13.8 Review of Systems Review of Systems: All systems reviewed & are unremarkable except as noted in HPI and below Exam Narrative: General: Awake, alert, comfortable, no acute distress HEENT: Normocephalic, atraumatic, sclerae anicteric Respiratory: Normal respiratory effort, no accessory muscle use Abdomen: Nondistended, soft, nontender : gutiérrez catheter draining clear light yellow urine, bilateral nephrostomy tubes with clear yellow output Skin: Facial skin cancer noted, warm and dry Neurologic: No focal neuro deficits noted Psychiatric: Appropriate mood and affect, judgment and insight intact Objective Data Vital Signs Vital Signs: Vital Signs - 24 hr 11/21/23 12:00 11/21/23 14:00 11/21/23 16:00 Temperature 97.1 F L Pulse Rate 90 118 H 93 Respiratory Rate Blood Pressure 140/96 H Pulse Oximetry 98 11/21/23 20:00 11/21/23 21:10 11/22/23 06:00 Temperature 97 F L 97.3 F L Pulse Rate 80 93 92 Respiratory Rate 20 18 Blood Pressure 120/96 H 137/88 Pulse Oximetry 97 97 11/22/23 08:00 Temperature Pulse Rate 92 Respiratory Rate Blood Pressure Pulse Oximetry Intake/Output Intake/Output: Intake & Output 11/19/23 11/20/23 11/21/23 11/22/23 23:59 23:59 23:59 23:59 Intake Total 1020 1424 720 900 Output Total 1705 2603 1430 940 [facility] -[phone] Meds/Results Medications: Active Medications Generic Name Dose Route Start Last Admin Trade Name Freq PRN Reason Stop Dose Admin Acetaminophen 650 mg 11/13/23 16:16 11/20/23 03:00 Acetaminophen 325 Mg Tablet PO 650 mg Q6H PRN Admi
--- NOTE | 2023-11-22 10:36 | PM.PNNEP ---
Progress Note: A&P Assessment and Plan (1) Acute kidney injury: Code(s): N17.9 - Acute kidney failure, unspecified Status: Acute Assessment and Plan: due to obstructive uropathy/urinary retention evidence of bilateral hydronephrosis by CT imaging in ER gutiérrez catheter in place s/p bilateral nephrostomy tube placement (on 11/18/23) follow trend of renal function and UOP making good urine output BUN and creatinine still indicating inability to clear uremic toxins... concerning that creatinine remains quite elevated -- he may have suffered irreparable damage to his kidneys follow-up on 24hr urine collection for creatinine clearance (2) Stage 3b chronic kidney disease: Code(s): N18.32 - Chronic kidney disease, stage 3b Status: Chronic Assessment and Plan: last creatinine was 1.9mg/dl in July 2023 presumably due to mulitple bouts of BRYAN/ARF in association with obstructive uropathy (3) Bilateral hydronephrosis: Code(s): N13.30 - Unspecified hydronephrosis Status: Acute Assessment and Plan: as noted on admission imaging likely secondary to chronic outlet obstruction unable to have stents in the past as ureteral orifices were not visible during cystoscopy Urology following (4) Metabolic acidosis: Code(s): E87.20 - Acidosis, unspecified Status: Acute Assessment and Plan: resolved likely secondary to BRYAN/ARF was on bicarbonate gtt to compensate with improvement noted follow CO2 levels (5) Urinary tract infection: Code(s): N39.0 - Urinary tract infection, site not specified Status: Acute Assessment and Plan: admission UA highly suggestive follow-up on urine culture - Klebsiella noted on antibiotics (6) Anemia: Code(s): D64.9 - Anemia, unspecified Status: Acute Assessment and Plan: suspect related to severe BRYAN/ARF likely some contributions from hematuria PRBC per protocol follow trend of H/H (7) Benign prostate hyperplasia: Code(s): N40.0 - Benign prostatic hyperplasia without lower urinary tract symptoms Status: Chronic Assessment and Plan: chronic and long standing issue (as noted by his previous hospitalizations) continue tamsulosin and finasteride continue gutiérrez catheter compliance with follow-up with this issue is an ongoing issue Will continue to follow. Subjective Date/time seen: 11/22/23 10:36 Interval history: Follow-up for acute kidney injury/acute renal failure on chronic kidney disease. 24 hour urine collection in progress; no apparent distress voiced at the time of my visit; Urology tentatively planning internal stenting as an outpatient; BUN + creatinine remain elevated but continues to make good urine output; feels reasonably well. Exam Narrative: General: WD/WN male in NAD Heart: normal S1 and S2; no rub Lungs: clear to auscultation Abdomen: soft, nontender, nondistended, positive bowel sounds Extremities: no cyanosis or clubbing; no edema Skin: no nodules Objective Data Vital Signs Vital Signs: Vital Signs Temp Pulse Resp BP Pulse Ox O2 Del Method 11/22/23 10:00 97.7 F 115 H 22 H 142/85 H 99 11/22/23 08:00 Room Air 11/22/23 08:00 92 11/22/23 06:00 97.3 F L 92 18 137/88 97 11/21/23 21:10 97 F L 93 20 120/96 H 97 11/21/23 20:00 80 Intake/Output Intake/Output: Intake & Output 11/19/23 11/20/23 11/21/23 11/22/23 23:59 23:59 23:59 23:59 Intake Total 1020 3070 977 8396 Output Total 1705 2603 1430 940 Balance -800 -3051 -288 877 Meds/Results Medications: Active Medications Generic Name Dose Route Start Last Admin Trade Name Freq PRN Reason Stop Dose Admin Acetaminophen 650 mg 11/13/23 16:16 11/20/23 03:00 Acetaminophen 325 Mg Tablet PO 650 mg Q6H PRN Administration Mild Pain (1-3) or Fever Calcium Carbonate 1,000 mg
--- NOTE | 2023-11-22 10:36 | P.PNNP_ITS ---
Progress Note: A&P Assessment and Plan (1) Acute kidney injury: Code(s): N17.9 - Acute kidney failure, unspecified Status: Acute Assessment and Plan: * due to obstructive uropathy/urinary retention * evidence of bilateral hydronephrosis by CT imaging in ER * gutiérrez catheter in place * s/p bilateral nephrostomy tube placement (on 11/18/23) * follow trend of renal function and UOP * making good urine output * BUN and creatinine still indicating inability to clear uremic toxins... * concerning that creatinine remains quite elevated -- he may have suffered irreparable damage to his kidneys * follow-up on 24hr urine collection for creatinine clearance (2) Stage 3b chronic kidney disease: Code(s): N18.32 - Chronic kidney disease, stage 3b Status: Chronic Assessment and Plan: * last creatinine was 1.9mg/dl in July 2023 * presumably due to mulitple bouts of BRYAN/ARF in association with obstructive uropathy (3) Bilateral hydronephrosis: Code(s): N13.30 - Unspecified hydronephrosis Status: Acute Assessment and Plan: * as noted on admission imaging * likely secondary to chronic outlet obstruction * unable to have stents in the past as ureteral orifices were not visible during cystoscopy * Urology following (4) Metabolic acidosis: Code(s): E87.20 - Acidosis, unspecified Status: Acute Assessment and Plan: * resolved * likely secondary to BRYAN/ARF * was on bicarbonate gtt to compensate with improvement noted * follow CO2 levels (5) Urinary tract infection: Code(s): N39.0 - Urinary tract infection, site not specified Status: Acute Assessment and Plan: * admission UA highly suggestive * follow-up on urine culture - Klebsiella noted * on antibiotics (6) Anemia: Code(s): D64.9 - Anemia, unspecified Status: Acute Assessment and Plan: * suspect related to severe BRYAN/ARF * likely some contributions from hematuria * PRBC per protocol * follow trend of H/H (7) Benign prostate hyperplasia: Code(s): N40.0 - Benign prostatic hyperplasia without lower urinary tract symptoms Status: Chronic Assessment and Plan: * chronic and long standing issue (as noted by his previous hospitalizations) * continue tamsulosin and finasteride * continue gutiérrez catheter * compliance with follow-up with this issue is an ongoing issue Will continue to follow. Subjective Date/time seen: 11/22/23 10:36 Interval history: Follow-up for acute kidney injury/acute renal failure on chronic kidney disease. 24 hour urine collection in progress; no apparent distress voiced at the time of my visit; Urology tentatively planning internal stenting as an outpatient; BUN + creatinine remain elevated but continues to make good urine output; feels reasonably well. Exam Narrative: General: WD/WN male in NAD Heart: normal S1 and S2; no rub Lungs: clear to auscultation Abdomen: soft, nontender, nondistended, positive bowel sounds Extremities: no cyanosis or clubbing; no edema Skin: no nodules Objective Data Vital Signs Vital Signs: Vital Signs Temp Pulse Resp BP Pulse Ox O2 Del Method 11/22/23 10:00 97.7 F 115 H 22 H 142/85 H 99 11/22/23 08:00 Room Air 11/22/23 08:00 92 11/22/23 06:00 97.3 F L 92 18 137/88
--- NOTE | 2023-11-22 11:02 | PM.IMPN ---
Progress Note: A&P Assessment and Plan (1) Gross hematuria: Code(s): R31.0 - Gross hematuria <Sienna Chau Student - Last Filed: 11/22/23 11:12> Status: Acute <Sienna Chau, Student - Last Filed: 11/22/23 11:12> Assessment and Plan: Resolved. Patient with gutiérrez catheter, urine remains clear No evidence of clots in the bladder on CT or renal/bladder US Continue to monitor Hemoglobin rising slowly Urology following <Sienna Chau, Student - Last Filed: 11/22/23 11:12> (2) Urinary tract infection: Code(s): N39.0 - Urinary tract infection, site not specified <Sienna Chau, Student - Last Filed: 11/22/23 11:12> Status: Acute <Sienna Chau, Student - Last Filed: 11/22/23 11:12> Assessment and Plan: Urine culture with growth of Klebsiella aerogenes( final) Completed course of Levaquin 500 mg on 11/21/2023 <Sienna Chau, Student - Last Filed: 11/22/23 11:12> (3) Benign prostate hyperplasia: Code(s): N40.0 - Benign prostatic hyperplasia without lower urinary tract symptoms <Sienna Chau, Student - Last Filed: 11/22/23 11:12> Status: Acute <Sienna Chau, Student - Last Filed: 11/22/23 11:12> Assessment and Plan: Patient with severely enlarged prostate Continue home medication tamsulosin and finasteride Has previously been recommended for PAE; he has been noncompliant with follow up Will need some kind of outlet procedure in the future, however follow-up and compliance remains an issue Will need to continue with Gutiérrez catheter on discharge, per urology recs Plan for eventual internalization of stents, per urology recs; will plan for urology outpatient follow up <Sienna Chau Student - Last Filed: 11/22/23 11:12> (4) Bilateral hydronephrosis: Code(s): N13.30 - Unspecified hydronephrosis <Sienna Chau, Student - Last Filed: 11/22/23 11:12> Status: Acute <Sienna Chau Student - Last Filed: 11/22/23 11:12> Assessment and Plan: Left kidney biopsy Anaerobic Culture: reveals: Preliminary 11/20/23 Q SOURCE: LT KIDNEY STATUS: PRELIMINARY GRAM STAIN: Moderate White blood cells seen No organisms seen NOTE: THIS RESULT IS FLAGGED ABNORMAL THIS TEST WAS PERFORMED AT: [email or web address] [id number] AGATHA HOFFMANN MD Aerobic Culture Preliminary 11/20/23-1208 Q SOURCE: LT KIDNEY STATUS: PRELIMINARY ISOLATE 1: Scant growth of Klebsiella aerogenes (Enterobacter) Moderate bilateral hydronephrosis noted on imaging which is a chronic finding due to outlet obstruction Not a candidate for ureteral stents as last cystoscopy ureteral orifices were not able to be located Bilateral percutaneous nephrostomy tubes placed per IR . He tolerated this well. 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
[2023-11-22 12:00] VITALS: PULSE 100
[2023-11-22 14:00] VITALS: BP 142/85; PULSE 115; RESP 22; TEMP 36.5; O2SAT 99
[2023-11-22 21:15] VITALS: BP 166/92; PULSE 96; RESP 20; TEMP 36.1; O2SAT 98
[2023-11-23 05:58] LABS: Collection Time Urine 24 HOURS
[2023-11-23 06:00] VITALS: BP 142/91; PULSE 92; RESP 18; TEMP 36.6; O2SAT 98
[2023-11-23 06:09] LABS: Creatinine Urine 40.8 mg/dL
[2023-11-23 06:12] LABS: Total Protein Urine Random 145 mg/dL
[2023-11-23 06:15] LABS: Creatinine Urine 41.5 mg/dL; Patient Weight 191 Lbs
[2023-11-23 06:18] LABS: Creatinine 24 Hour Urine 1.1 gm/24 (1.0-2.0); Total Volume 24 Hour Urine 2800 ml
[2023-11-23 06:19] LABS: Creatinine Clearance Urine 5.1 ml/min (75-125); Total Protein Urine 24 Hr 4060 mg/24hr (28-141); Total Volume 24 Hour Urine 2800 ml
[2023-11-23 06:39] LABS: Basophils Absolute Auto 0.1 K/mm3 (0.0-0.1); Eosinophils Absolute Auto 0.6 K/mm3 (0-0.3); Eosinophils Percent Auto 6.8 % (0-4.4); Hematocrit 27.6 % (42.0-52.0); Hemoglobin 8.7 g/dL (14.0-18.0); Immature Granulocyte Absolute 0.04 K/mm3 (0.00-0.031); Immature Granulocyte Percent A 0.5 % (0-0.5); Lymphocytes Absolute Auto 1.53 K/mm3 (0.9-3.2); Lymphocytes Percent Auto 18.6 % (18.3-44.2); Mean Corpuscular HGB Conc 31.5 g/dl (32-36); Mean Corpuscular Hemoglobin 28.2 pg (26-34); Mean Corpuscular Volume 89.6 fl (80-100); Monocytes Absolute Auto 0.7 K/mm3 (0.1-0.6); Monocytes Percent Auto 8.6 % (2.6-8.5); Neutrophils Absolute Auto 5.3 K/mm3 (1.3-6.7); Neutrophils Percent Auto 64.5 % (45.5-73.1); Platelet Count Result 185 k/mm3 (150-375); Red Blood Count 3.08 M/mm3 (4.6-6.20); Red Cell Distribution Width 15.2 % (11.5-14.5); White Blood Count 8.2 K/mm3 (4.5-10.0)
[2023-11-23 07:24] LABS: Specific Gravity Ur 1.015
[2023-11-23 07:25] LABS: Alanine Aminotransferase 13 U/L (6-50); Albumin Level 3.6 g/dL (3.5-5.1); Alkaline Phosphatase 75 U/L (38-126); Anion Gap 14 mmol/L (8-16); Aspartate Amino Transferase 16 U/L (17-59); Bilirubin,Total 0.4 mg/dL (0.2-1.3); Calcium 8.9 mg/dL (8.4-10.2); Carbon Dioxide 18 mmol/L (22-30); Chloride 100 mmol/L (98-107); Estimated CRCL calculation 6 ml/min; Estimated Glomerular Filt Rate 4; Glucose 99 mg/dL (65-110); Potassium 4.1 mmol/L (3.4-5.0); Sodium 132 mmol/L (137-145)
[2023-11-23] MEDS: CALCIUM CARBONATE (OSCAL) 500 MG TABLET 1000 MG PO ×3 (08:31→16:47)
[2023-11-23] MEDS: FINASTERIDE 5 MG TABLET PO (08:31)
[2023-11-23] MEDS: levoFLOXacin 500 MG TABLET PO (08:31)
[2023-11-23] MEDS: TAMSULOSIN HCL 0.4 MG CAPSULE PO (08:32)
[2023-11-23] MEDS: ACETAMINOPHEN 325 MG TABLET 650 MG PO ×2 (08:33→16:46)
[2023-11-23 08:54] LABS: Blood Urea Nitrogen 132 mg/dL (9-20)
--- NOTE | 2023-11-23 09:45 | WPDUROPN2 ---
Progress Note: A&P Assessment and Plan (1) Gross hematuria: Code(s): R31.0 - Gross hematuria Status: Resolved Assessment and Plan: Resolved. CBI discontinued , urine remains clear No evidence of clots in the bladder on CT or renal/bladder US (2) Urinary tract infection: Code(s): N39.0 - Urinary tract infection, site not specified Status: Acute Assessment and Plan: Urine culture with growth of Klebsiella aerogenes Completed course of Levaquin 11/21/2023 (3) Benign prostate hyperplasia: Code(s): N40.0 - Benign prostatic hyperplasia without lower urinary tract symptoms Status: Acute Assessment and Plan: Severely enlarged prostate Continue tamsulosin and finasteride Has previously been recommended for PAE; he has been noncompliant with follow up Will need some kind of outlet procedure in the future, however follow-up and compliance remains an issue Will need to continue with Gutiérrez catheter on discharge and will arrange outpatient urodynamics (4) Bilateral hydronephrosis: Code(s): N13.30 - Unspecified hydronephrosis Status: Acute Assessment and Plan: Moderate bilateral hydronephrosis noted on imaging which is a chronic finding due to outlet obstruction Bilateral percutaneous nephrostomy tubes placed per IR on 11/18/2023. He tolerated this well. Plan for eventual internalization of stents; will plan for outpatient follow up/referral to IR (5) Acute on chronic kidney failure: Code(s): N17.9 - Acute kidney failure, unspecified; N18.9 - Chronic kidney disease, unspecified Status: Acute Assessment and Plan: Creatinine elevated to 18.3 on arrival Slow improvement in renal function following bilateral nephrostomy tube placement, creatinine down to 13.2 today Dialysis may be considered, nephrology is following Subjective Subjective Date/Time Seen: 11/23/23 09:45 Interval history: Andrey is asleep during my encounter resting comfortably. Gutiérrez catheter draining clear yellow urine. Bilateral nephrostomy tube with clear light yellow output. Creatinine down to 13.2 Review of Systems Review of Systems: Unable to obtain ROS as patient was asleep, chose not to awaken as he has reportedly not been sleeping well at night Exam Narrative: General: Asleep, appears comfortable, no acute distress HEENT: Normocephalic, atraumatic Respiratory: Normal respiratory effort, no accessory muscle use Abdomen: Nondistended, soft : gutiérrez catheter draining clear light yellow urine, bilateral nephrostomy tubes with clear light yellow output Skin: Facial skin cancer noted, warm and dry Objective Data Vital Signs Vital Signs: Vital Signs - 24 hr 11/22/23 12:00 11/22/23 14:00 11/22/23 21:15 Temperature 97.7 F 97 F L Pulse Rate 100 115 H 96 Respiratory Rate 22 H 20 Blood Pressure 142/85 H 166/92 H Pulse Oximetry 99 98 11/23/23 06:00 Temperature 98 F Pulse Rate 92 Respiratory Rate 18 Blood Pressure 142/91 H Pulse Oximetry 98 Intake/Output Intake/Output: Intake & Output 11/20/23 11/21/23 11/22/23 11/23/23 23:59 23:59 23:59 23:59 Intake Total 1955 172 7248 1240 Output Total 2603 1430 1540 920 Balance -1179 -710 397 320 Meds/Results Medications: Active Medications Generic Name Dose Route Start Last Admin Trade Name Chavoq PRN Reason Stop Dose Admin Acetaminophen 650 mg 11/13/23 16:16 11/23/23 08:33 Acetaminophen 325 Mg Tablet PO 650 mg Q6H PRN Administration Mild Pain (1-3) or Fever Calcium Carbonate 1,000 mg 11/16/23 08:00 11/23/23 08:31 Calcium Carbonate (Oscal) 500 Mg Tablet PO 11/25/23 17:01 1,000 mg TIDWM CHRIS Administration Finasteride 5 mg 11/14/23 09:00 11/23/23 08:31 Finasteride 5 Mg Tablet PO 5 mg QAM CHRIS Administration Sodium Bicarbonate 150 meq/ 1,100 mls @ 0 mls/hr 11/13/23 21:55 11/15/23 18:58 Dextrose IV CONT Not Given
--- NOTE | 2023-11-23 11:31 | PM.IMPN ---
Progress Note: A&P Assessment and Plan (1) Gross hematuria: Code(s): R31.0 - Gross hematuria Status: Resolved Assessment and Plan: Resolved. Patient with gutiérrez catheter, urine remains clear No evidence of clots in the bladder on CT or renal/bladder US Continue to monitor Hemoglobin rising slowly Urology following continue present care (2) Urinary tract infection: Code(s): N39.0 - Urinary tract infection, site not specified Status: Acute Assessment and Plan: Urine culture with growth of Klebsiella aerogenes( final) Completed course of Levaquin 500 mg on 11/21/2023 (3) Benign prostate hyperplasia: Code(s): N40.0 - Benign prostatic hyperplasia without lower urinary tract symptoms Status: Acute Assessment and Plan: Patient with severely enlarged prostate Continue home medication tamsulosin and finasteride Has previously been recommended for PAE; he has been noncompliant with follow up Will need some kind of outlet procedure in the future, however follow-up and compliance remains an issue Will need to continue with Gutiérrez catheter on discharge, per urology recs Plan for eventual internalization of stents, per urology recs; will plan for urology outpatient follow up (4) Bilateral hydronephrosis: Code(s): N13.30 - Unspecified hydronephrosis Status: Acute Assessment and Plan: Left kidney biopsy Anaerobic Culture: reveals: Preliminary 11/20/23 Q SOURCE: LT KIDNEY STATUS: PRELIMINARY GRAM STAIN: Moderate White blood cells seen No organisms seen NOTE: THIS RESULT IS FLAGGED ABNORMAL THIS TEST WAS PERFORMED AT: [facility] [address] [id number] AGATHA HOFFMANN MD Aerobic Culture Preliminary 11/20/23 Q SOURCE: LT KIDNEY STATUS: PRELIMINARY ISOLATE 1: Scant growth of Klebsiella aerogenes (Enterobacter) Moderate bilateral hydronephrosis noted on imaging which is a chronic finding due to outlet obstruction Not a candidate for ureteral stents as last cystoscopy ureteral orifices were not able to be located Bilateral percutaneous nephrostomy tubes placed per IR . He tolerated this well. 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 Patient with close following with Nephrology/Urology, discussion with Nephrology who will continue surveillance and possible initiation of dialysis, will continue to monitor Hopeful continued improvement following nephrostomy tube placement Continue to trend serum creatinine daily Creatinine remains elevated at 13.80 (11/21) -- this is continued improvement since admission 24 hr creatinine clearance labs ordered by nephrology, pending results (11/21) Plan VTE Prophylaxis: SCDs Code Status: Full Subjective Date/time seen: 11/23/23 11:31 Interval history: Patient is resting comfortably in bed this morning. He denies chest pain or shortness of breath. He also denies nausea, vomiting, abdominal pain. He is tolerating solid foods and liquids. Patient is also able ambulate with a walker. He states his left flank still feels stiff from his nephrostomy procedure. He has no further complaints at this time. Pts admitted for jennifer bl hydronephrosis, bph untreated and uti Sp nephrostomy tubes Urology and nephrology rounding Pt had nephrostomy tubes pt has gutiérrez in situ Creat improved from 18 to 13 plan to collect 24 hours urinary creat Nephrology watching ? dialysis later if creat does not improve co
--- NOTE | 2023-11-23 12:12 | P.PNNP_ITS ---
Progress Note: A&P Assessment and Plan (1) Acute kidney injury: Code(s): N17.9 - Acute kidney failure, unspecified Status: Acute Assessment and Plan: * due to obstructive uropathy/urinary retention * evidence of bilateral hydronephrosis by CT imaging in ER * gutiérrez catheter in place * s/p bilateral nephrostomy tube placement (on 11/18/23) * follow trend of renal function and UOP * making good urine output * BUN and creatinine still indicating inability to clear uremic toxins... * concerning that creatinine remains quite elevated -- he may have suffered irreparable damage to his kidneys * 24hr urine collection demonstrates a creatinine clearance of 5cc/min (2) Stage 3b chronic kidney disease: Code(s): N18.32 - Chronic kidney disease, stage 3b Status: Chronic Assessment and Plan: * last creatinine was 1.9mg/dl in July 2023 * presumably due to mulitple bouts of BRYAN/ARF in association with obstructive uropathy (3) Bilateral hydronephrosis: Code(s): N13.30 - Unspecified hydronephrosis Status: Acute Assessment and Plan: * as noted on admission imaging * likely secondary to chronic outlet obstruction * unable to have stents in the past as ureteral orifices were not visible during cystoscopy * Urology following (4) Metabolic acidosis: Code(s): E87.20 - Acidosis, unspecified Status: Acute Assessment and Plan: * resolved * likely secondary to BRYAN/ARF * was on bicarbonate gtt to compensate with improvement noted * follow CO2 levels (5) Urinary tract infection: Code(s): N39.0 - Urinary tract infection, site not specified Status: Acute Assessment and Plan: * admission UA highly suggestive * follow-up on urine culture - Klebsiella noted * on antibiotics (6) Anemia: Code(s): D64.9 - Anemia, unspecified Status: Acute Assessment and Plan: * suspect related to severe BRYAN/ARF * likely some contributions from hematuria * PRBC per protocol * follow trend of H/H (7) Benign prostate hyperplasia: Code(s): N40.0 - Benign prostatic hyperplasia without lower urinary tract symptoms Status: Chronic Assessment and Plan: * chronic and long standing issue (as noted by his previous hospitalizations) * continue tamsulosin and finasteride * continue gutiérrez catheter * compliance with follow-up with this issue is an ongoing issue Another long discussion with patient in light of 24 hour urine collection results -- although his kidney are able to produce urine and maintain electrolyte control, he is not able to clear out the uremic toxins. I discussed the possible complications of uremia with the patient and unfortunately, the only way to clear the toxins out of his body is [employer]/dialysis. It is possible the his renal dysfunction may still be temporary but only time will tell. He is agreeable to start dialysis. Will consult surgery for tunneled HD catheter placement as he will need dialysis as an outpatient as well. Will continue to follow. Subjective Date/time seen: 11/23/23 12:12 Interval history: Follow-up for acute kidney injury/acute renal failure on chronic kidney disease. Continues to feel reasonably well despite no real significant improvement in re nal function; good urine output noted since gutiérrez catheter and bilateral nephrostomy tube placement; no apparent distress voiced; no issues/events overnight. Exam Narrative: General: WD/WN male in NAD Heart: normal S1 an
--- NOTE | 2023-11-23 12:12 | PM.PNNEP ---
Progress Note: A&P Assessment and Plan (1) Acute kidney injury: Code(s): N17.9 - Acute kidney failure, unspecified Status: Acute Assessment and Plan: due to obstructive uropathy/urinary retention evidence of bilateral hydronephrosis by CT imaging in ER gutiérrez catheter in place s/p bilateral nephrostomy tube placement (on 11/18/23) follow trend of renal function and UOP making good urine output BUN and creatinine still indicating inability to clear uremic toxins... concerning that creatinine remains quite elevated -- he may have suffered irreparable damage to his kidneys 24hr urine collection demonstrates a creatinine clearance of 5cc/min (2) Stage 3b chronic kidney disease: Code(s): N18.32 - Chronic kidney disease, stage 3b Status: Chronic Assessment and Plan: last creatinine was 1.9mg/dl in July 2023 presumably due to mulitple bouts of BRYAN/ARF in association with obstructive uropathy (3) Bilateral hydronephrosis: Code(s): N13.30 - Unspecified hydronephrosis Status: Acute Assessment and Plan: as noted on admission imaging likely secondary to chronic outlet obstruction unable to have stents in the past as ureteral orifices were not visible during cystoscopy Urology following (4) Metabolic acidosis: Code(s): E87.20 - Acidosis, unspecified Status: Acute Assessment and Plan: resolved likely secondary to BRYAN/ARF was on bicarbonate gtt to compensate with improvement noted follow CO2 levels (5) Urinary tract infection: Code(s): N39.0 - Urinary tract infection, site not specified Status: Acute Assessment and Plan: admission UA highly suggestive follow-up on urine culture - Klebsiella noted on antibiotics (6) Anemia: Code(s): D64.9 - Anemia, unspecified Status: Acute Assessment and Plan: suspect related to severe BRYAN/ARF likely some contributions from hematuria PRBC per protocol follow trend of H/H (7) Benign prostate hyperplasia: Code(s): N40.0 - Benign prostatic hyperplasia without lower urinary tract symptoms Status: Chronic Assessment and Plan: chronic and long standing issue (as noted by his previous hospitalizations) continue tamsulosin and finasteride continue gutiérrez catheter compliance with follow-up with this issue is an ongoing issue Another long discussion with patient in light of 24 hour urine collection results -- although his kidney are able to produce urine and maintain electrolyte control, he is not able to clear out the uremic toxins. I discussed the possible complications of uremia with the patient and unfortunately, the only way to clear the toxins out of his body is [employer]/dialysis. It is possible the his renal dysfunction may still be temporary but only time will tell. He is agreeable to start dialysis. Will consult surgery for tunneled HD catheter placement as he will need dialysis as an outpatient as well. Will continue to follow. Subjective Date/time seen: 11/23/23 12:12 Interval history: Follow-up for acute kidney injury/acute renal failure on chronic kidney disease. Continues to feel reasonably well despite no real significant improvement in renal function; good urine output noted since gutiérrez catheter and bilateral nephrostomy tube placement; no apparent distress voiced; no issues/events overnight. Exam Narrative: General: WD/WN male in NAD Heart: normal S1 and S2; no rub Lungs: clear to auscultation Abdomen: soft, nontender, nondistended, positive bowel sounds Extremities: no cyanosis or clubbing; no edema Skin: warm and dry Objective Data Vital Signs Vital Signs: Vital Signs Temp Pulse Resp BP Pulse Ox 11/23/23 11:00 96.9 F L 83 18 144/88 H 97 11/23/23 06:00 98 F 92 18 142/91 H 98 11/22/23 21:15 97 F L 96 20 166/92 H 98 Intake/Output Intake/Output: Intake & Output
[2023-11-23 14:00] VITALS: BP 144/88; PULSE 83; RESP 18; TEMP 36.1; O2SAT 97
[2023-11-23 21:55] VITALS: BP 158/90; PULSE 69; RESP 16; TEMP 36.7; O2SAT 98
[2023-11-24] MEDS: ACETAMINOPHEN 325 MG TABLET 650 MG PO ×3 (02:06→18:30)
[2023-11-24 06:15] VITALS: BP 131/89; PULSE 91; RESP 20; TEMP 36.5; O2SAT 98
[2023-11-24 06:58] LABS: Basophils Absolute Auto 0.1 K/mm3 (0.0-0.1); Eosinophils Absolute Auto 0.5 K/mm3 (0-0.3); Eosinophils Percent Auto 6.1 % (0-4.4); Hematocrit 30.6 % (42.0-52.0); Hemoglobin 9.8 g/dL (14.0-18.0); Immature Granulocyte Absolute 0.03 K/mm3 (0.00-0.031); Immature Granulocyte Percent A 0.4 % (0-0.5); Lymphocytes Absolute Auto 1.48 K/mm3 (0.9-3.2); Lymphocytes Percent Auto 18.4 % (18.3-44.2); Mean Corpuscular Hemoglobin 28.7 pg (26-34); Mean Corpuscular Volume 89.5 fl (80-100); Mean Platelet Volume 10.1 fl (7.4-10.4); Monocytes Absolute Auto 0.5 K/mm3 (0.1-0.6); Monocytes Percent Auto 6.5 % (2.6-8.5); Neutrophils Absolute Auto 5.4 K/mm3 (1.3-6.7); Neutrophils Percent Auto 67.6 % (45.5-73.1); Platelet Count Result 216 k/mm3 (150-375); Red Blood Count 3.42 M/mm3 (4.6-6.20); Red Cell Distribution Width 15.5 % (11.5-14.5)
[2023-11-24 07:07] LABS: Alanine Aminotransferase 14 U/L (6-50); Albumin Level 4.1 g/dL (3.5-5.1); Alkaline Phosphatase 89 U/L (38-126); Anion Gap 16 mmol/L (8-16); Aspartate Amino Transferase 18 U/L (17-59); Bilirubin,Total 0.4 mg/dL (0.2-1.3); Calcium 9.6 mg/dL (8.4-10.2); Carbon Dioxide 19 mmol/L (22-30); Chloride 98 mmol/L (98-107); Estimated CRCL calculation 6 ml/min; Estimated Glomerular Filt Rate 4; Glucose 102 mg/dL (65-110); Potassium 4.3 mmol/L (3.4-5.0); Sodium 133 mmol/L (137-145)
[2023-11-24 07:30] LABS: Blood Urea Nitrogen 129 mg/dL (9-20)
[2023-11-24 08:26] LABS: Hepatitis B Surface Antigen Negative (Negative)
[2023-11-24 08:43] LABS: Hepatitis B Surface Anti Res Negative
[2023-11-24] MEDS: FINASTERIDE 5 MG TABLET PO (08:55)
[2023-11-24] MEDS: TAMSULOSIN HCL 0.4 MG CAPSULE PO (08:56)
[2023-11-24] MEDS: CALCIUM CARBONATE (OSCAL) 500 MG TABLET 1000 MG PO ×3 (08:56→16:28)
--- NOTE | 2023-11-24 12:41 | PM.PNNEP ---
Progress Note: A&P Assessment and Plan (1) Acute kidney injury: Code(s): N17.9 - Acute kidney failure, unspecified Status: Acute Assessment and Plan: due to obstructive uropathy/urinary retention evidence of bilateral hydronephrosis by CT imaging in ER gutiérrez catheter in place s/p bilateral nephrostomy tube placement (on 11/18/23) follow trend of renal function and UOP making good urine output BUN and creatinine still indicating inability to clear uremic toxins... concerning that creatinine remains quite elevated -- he may have suffered irreparable damage to his kidneys 24hr urine collection demonstrates a creatinine clearance of 5cc/min agreeable to initiation of dialysis -- Surgery consulted for HD catheter placement hopefully, dialysis is only a temporary intervention but difficult to know for certain (2) Stage 3b chronic kidney disease: Code(s): N18.32 - Chronic kidney disease, stage 3b Status: Chronic Assessment and Plan: last creatinine was 1.9mg/dl in July 2023 presumably due to mulitple bouts of BRYAN/ARF in association with obstructive uropathy (3) Bilateral hydronephrosis: Code(s): N13.30 - Unspecified hydronephrosis Status: Acute Assessment and Plan: as noted on admission imaging likely secondary to chronic outlet obstruction unable to have stents in the past as ureteral orifices were not visible during cystoscopy possible internal stenting as an outpatient Urology following (4) Metabolic acidosis: Code(s): E87.20 - Acidosis, unspecified Status: Acute Assessment and Plan: resolved likely secondary to BRYAN/ARF was on bicarbonate gtt to compensate with improvement noted follow CO2 levels once dialysis initiated, this should help maintain stability (5) Urinary tract infection: Code(s): N39.0 - Urinary tract infection, site not specified Status: Acute Assessment and Plan: admission UA highly suggestive follow-up on urine culture - Klebsiella noted on antibiotics (6) Anemia: Code(s): D64.9 - Anemia, unspecified Status: Acute Assessment and Plan: suspect related to severe BRYAN/ARF likely some contributions from hematuria PRBC per protocol follow trend of H/H (7) Benign prostate hyperplasia: Code(s): N40.0 - Benign prostatic hyperplasia without lower urinary tract symptoms Status: Chronic Assessment and Plan: chronic and long standing issue (as noted by his previous hospitalizations) continue tamsulosin and finasteride continue gutiérrez catheter compliance with follow-up with this issue is an ongoing issue Will continue to follow. Subjective Date/time seen: 11/24/23 12:41 Interval history: Follow-up for acute kidney injury/acute renal failure on chronic kidney disease. No real significant change in renal function noted but continues to have reasonable urine output and stability in electrolytes; tolerating oral intake but dislikes the low potassium diet that he is on; no apparent distress voiced at the time of my visit. Exam Narrative: General: WD/WN male in NAD Heart: normal S1 and S2; no rub Lungs: clear to auscultation Abdomen: soft, nontender, nondistended, positive bowel sounds Extremities: no cyanosis or clubbing; no edema Skin: warm and intact Objective Data Vital Signs Vital Signs: Vital Signs Temp Pulse Resp BP Pulse Ox O2 Del Method 11/24/23 12:38 96.3 F L 91 18 142/83 H 97 11/24/23 06:15 97.7 F 91 20 131/89 98 11/23/23 21:55 98.1 F 69 16 158/90 H 98 11/23/23 20:00 Room Air Intake/Output Intake/Output: Intake & Output 11/21/23 11/22/23 11/23/23 11/24/23 23:59 23:59 23:59 23:59 Intake Total 720 1937 1720 1960 Output Total 1430 1540 2670 2080 Balance -710 397 -950 -120 Meds/Results Medications: Active Medications Generic Name Dose Route Star
--- NOTE | 2023-11-24 12:41 | P.PNNP_ITS ---
Progress Note: A&P Assessment and Plan (1) Acute kidney injury: Code(s): N17.9 - Acute kidney failure, unspecified Status: Acute Assessment and Plan: * due to obstructive uropathy/urinary retention * evidence of bilateral hydronephrosis by CT imaging in ER * gutiérrez catheter in place * s/p bilateral nephrostomy tube placement (on 11/18/23) * follow trend of renal function and UOP * making good urine output * BUN and creatinine still indicating inability to clear uremic toxins... * concerning that creatinine remains quite elevated -- he may have suffered irreparable damage to his kidneys * 24hr urine collection demonstrates a creatinine clearance of 5cc/min * agreeable to initiation of dialysis -- Surgery consulted for HD catheter placement * hopefully, dialysis is only a temporary intervention but difficult to know for certain (2) Stage 3b chronic kidney disease: Code(s): N18.32 - Chronic kidney disease, stage 3b Status: Chronic Assessment and Plan: * last creatinine was 1.9mg/dl in July 2023 * presumably due to mulitple bouts of BRYAN/ARF in association with obstructive uropathy (3) Bilateral hydronephrosis: Code(s): N13.30 - Unspecified hydronephrosis Status: Acute Assessment and Plan: * as noted on admission imaging * likely secondary to chronic outlet obstruction * unable to have stents in the past as ureteral orifices were not visible during cystoscopy * possible internal stenting as an outpatient * Urology following (4) Metabolic acidosis: Code(s): E87.20 - Acidosis, unspecified Status: Acute Assessment and Plan: * resolved * likely secondary to BRYAN/ARF * was on bicarbonate gtt to compensate with improvement noted * follow CO2 levels * once dialysis initiated, this should help maintain stability (5) Urinary tract infection: Code(s): N39.0 - Urinary tract infection, site not specified Status: Acute Assessment and Plan: * admission UA highly suggestive * follow-up on urine culture - Klebsiella noted * on antibiotics (6) Anemia: Code(s): D64.9 - Anemia, unspecified Status: Acute Assessment and Plan: * suspect related to severe BRYAN/ARF * likely some contributions from hematuria * PRBC per protocol * follow trend of H/H (7) Benign prostate hyperplasia: Code(s): N40.0 - Benign prostatic hyperplasia without lower urinary tract symptoms Status: Chronic Assessment and Plan: * chronic and long standing issue (as noted by his previous hospitalizations) * continue tamsulosin and finasteride * continue gutiérrez catheter * compliance with follow-up with this issue is an ongoing issue Will continue to follow. Subjective Date/time seen: 11/24/23 12:41 Interval history: Follow-up for acute kidney injury/acute renal failure on chronic kidney disease. No real significant change in renal function noted but continues to have reasonable urine output and stability in electrolytes; tolerating oral intake but dislikes the low potassium diet that he is on; no apparent distress voiced at the time of my visit. Exam Narrative: General: WD/WN male in NAD Heart: normal S1 and S2; no rub Lungs: clear to auscultation Abdomen: soft, nontender, nondistended, positive bowel sounds Extremities: no cyanosis or clubbing; no edema Skin: warm and intact Objective Data Vital Signs Vital Signs:
--- NOTE | 2023-11-24 12:49 | PM.IMPN ---
Progress Note: A&P Assessment and Plan (1) Gross hematuria: Code(s): R31.0 - Gross hematuria Status: Resolved Assessment and Plan: Resolved. Patient with gutiérrez catheter, urine remains clear No evidence of clots in the bladder on CT or renal/bladder US Continue to monitor Hemoglobin rising slowly Urology following continue present care gutiérrez insitu watch urine output (2) Urinary tract infection: Code(s): N39.0 - Urinary tract infection, site not specified Status: Acute Assessment and Plan: Urine culture with growth of Klebsiella aerogenes( final) Completed course of Levaquin 500 mg on 11/21/2023 (3) Benign prostate hyperplasia: Code(s): N40.0 - Benign prostatic hyperplasia without lower urinary tract symptoms Status: Chronic Assessment and Plan: Patient with severely enlarged prostate Continue home medication tamsulosin and finasteride Has previously been recommended for PAE; he has been noncompliant with follow up Will need some kind of outlet procedure in the future, however follow-up and compliance remains an issue Will need to continue with Gutiérrez catheter on discharge, per urology recs Plan for eventual internalization of stents, per urology recs; will plan for urology outpatient follow up (4) Bilateral hydronephrosis: Code(s): N13.30 - Unspecified hydronephrosis Status: Acute Assessment and Plan: Left kidney biopsy Anaerobic Culture: reveals: Preliminary 11/20/23 Q SOURCE: LT KIDNEY STATUS: PRELIMINARY GRAM STAIN: Moderate White blood cells seen No organisms seen NOTE: THIS RESULT IS FLAGGED ABNORMAL THIS TEST WAS PERFORMED AT: [facility] [address] [id number] AGATHA HOFFMANN MD Aerobic Culture Preliminary 11/20/23 Q SOURCE: LT KIDNEY STATUS: PRELIMINARY ISOLATE 1: Scant growth of Klebsiella aerogenes (Enterobacter) Moderate bilateral hydronephrosis noted on imaging which is a chronic finding due to outlet obstruction Not a candidate for ureteral stents as last cystoscopy ureteral orifices were not able to be located Bilateral percutaneous nephrostomy tubes placed per IR . He tolerated this well. 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 Patient with close following with Nephrology/Urology, discussion with Nephrology who will continue surveillance and possible initiation of dialysis, will continue to monitor Hopeful continued improvement following nephrostomy tube placement Continue to trend serum creatinine daily Creatinine remains elevated at 13.80 (3/) -- this is continued improvement since admission 24 hr creatinine clearance labs ordered by nephrology, pending results (11/21) Unfortunately creat staying at 13 creat clearance is 5cc/min pt needs dialysis Pt will need tunnelled dialysis catheter and dialysis rimma Plan VTE Prophylaxis: SCDs Code Status: Full Subjective Date/time seen: 11/24/23 12:49 Interval history: Patient is resting comfortably in bed this morning. He denies chest pain or shortness of breath. He also denies nausea, vomiting, abdominal pain. He is tolerating solid foods and liquids. Patient is also able ambulate with a walker. He states his left flank still feels stiff from his nephrostomy procedure. He has no further complaints at this time. Pts admitted for jennifer bl hydronephrosis, bph untreated and uti Sp nephrostomy tubes Urology and nephrology rounding Pt had
[2023-11-24 13:58] VITALS: BP 142/83; PULSE 91; RESP 18; TEMP 35.7; O2SAT 97
--- NOTE | 2023-11-24 15:57 | WPDUROPN2 ---
Progress Note: A&P Assessment and Plan (1) Gross hematuria: Code(s): R31.0 - Gross hematuria Status: Resolved Assessment and Plan: Resolved. CBI discontinued , urine remains clear No evidence of clots in the bladder on CT or renal/bladder US (2) Urinary tract infection: Code(s): N39.0 - Urinary tract infection, site not specified Status: Acute Assessment and Plan: Urine culture with growth of Klebsiella aerogenes Completed course of Levaquin 11/21/2023 (3) Benign prostate hyperplasia: Code(s): N40.0 - Benign prostatic hyperplasia without lower urinary tract symptoms Status: Chronic Assessment and Plan: Severely enlarged prostate Continue tamsulosin and finasteride Has previously been recommended for PAE; he has been noncompliant with follow up Will need some kind of outlet procedure in the future, however follow-up and compliance remains an issue Will need to continue with Gutiérrez catheter on discharge and will arrange outpatient urodynamics (4) Bilateral hydronephrosis: Code(s): N13.30 - Unspecified hydronephrosis Status: Acute Assessment and Plan: Moderate bilateral hydronephrosis noted on imaging which is a chronic finding due to outlet obstruction Bilateral percutaneous nephrostomy tubes placed per IR on 11/18/2023. He tolerated this well. Plan for eventual internalization of stents; will plan for outpatient follow up/referral to IR (5) Acute on chronic kidney failure: Code(s): N17.9 - Acute kidney failure, unspecified; N18.9 - Chronic kidney disease, unspecified Status: Acute Assessment and Plan: Creatinine elevated to 18.3 on arrival Slow improvement in renal function following bilateral nephrostomy tube placement, creatinine down to 13.3 today BUN remains elevated and he will be starting hemodialysis per nephrology Subjective Subjective Date/Time Seen: 11/24/23 15:57 Interval history: Andrey is feeling well today. Complains of intermittent back pain. Gutéirrez still draining clear yellow urine (output has lessened) and bilateral neph tubes with clear drainage. He is tolerating his diet. Review of Systems Review of Systems: All systems reviewed & are unremarkable except as noted in HPI and below Exam Narrative: General: Asleep, appears comfortable, no acute distress HEENT: Normocephalic, atraumatic Respiratory: Normal respiratory effort, no accessory muscle use Abdomen: Nondistended, soft : gutiérrez catheter draining clear light yellow urine, bilateral nephrostomy tubes with clear light yellow output Skin: Facial skin cancer noted, warm and dry Objective Data Vital Signs Vital Signs: Vital Signs - 24 hr 11/23/23 20:00 11/23/23 21:55 11/24/23 06:15 Temperature 98.1 F 97.7 F Pulse Rate 69 91 Respiratory Rate 16 20 Blood Pressure 158/90 H 131/89 Pulse Oximetry 98 98 Oxygen Delivery Room Air 11/24/23 13:58 Temperature 96.3 F L Pulse Rate 91 Respiratory Rate 18 Blood Pressure 142/83 H Pulse Oximetry 97 Oxygen Delivery Intake/Output Intake/Output: Intake & Output 11/21/23 11/22/23 11/23/23 11/24/23 23:59 23:59 23:59 23:59 Intake Total 720 1937 1720 1960 Output Total 1430 1540 2670 1940 Balance -710 397 -950 20 Meds/Results Medications: Active Medications Generic Name Dose Route Start Last Admin Trade Name Chavoq PRN Reason Stop Dose Admin Acetaminophen 650 mg 11/13/23 16:16 11/24/23 10:34 Acetaminophen 325 Mg Tablet PO 650 mg Q6H PRN Administration Mild Pain (1-3) or Fever Calcium Carbonate 1,000 mg 11/16/23 08:00 11/24/23 11:27 Calcium Carbonate (Oscal) 500 Mg Tablet PO 11/25/23 17:01 1,000 mg TIDWM CHRIS Administration Finasteride 5 mg 11/14/23 09:00 11/24/23 08:55 Finasteride 5 Mg Tablet PO 5 mg QAM CHRIS Administration Sodium Bicarbonate 150 meq/ 1,100 mls @ 0 mls/hr 11/13/23 21:55 11/15/23 18:58 Dextro
--- NOTE | 2023-11-24 16:11 | PM.CNGS ---
Assessment and Plan Assessment and plan (1) Acute on chronic kidney failure: Code(s): N17.9 - Acute kidney failure, unspecified; N18.9 - Chronic kidney disease, unspecified Status: Acute Assessment and Plan: Patient's renal function has showed slight improvement following bilateral nephrostomy tube placement, but BUN and creatinine still remain significantly elevated. Nephrology is wanting to start hemodialysis given his inability to clear uremic toxins. They have requested placement of a tunneled hemodialysis catheter. Description of the procedure, risks, benefits, and expected outcomes were discussed with the patient in detail. All questions were answered. Patient agrees to proceed with surgery. We have scheduled him for placement a tunneled Duraflow catheter tomorrow with Dr. Nieves. Will make the patient NPO after midnight. (2) Bilateral hydronephrosis: Code(s): N13.30 - Unspecified hydronephrosis Status: Acute (3) Urinary tract infection: Code(s): N39.0 - Urinary tract infection, site not specified Status: Acute (4) Bladder outlet obstruction: Code(s): N32.0 - Bladder-neck obstruction Status: Acute (5) COPD with emphysema: Code(s): J43.9 - Emphysema, unspecified Status: Acute (6) Tobacco dependence: Code(s): F17.200 - Nicotine dependence, unspecified, uncomplicated Status: Acute (7) Bipolar disorder: Code(s): F31.9 - Bipolar disorder, unspecified Status: Acute Plan I have discussed the patient's case and plan of care with Dr. Nieves. History of Present Illness Consult details Consult date: 11/24/23 Reason for consult: other (Placement of tunneled hemodialysis catheter) Requesting physician: Sotero Verma MD Narrative: This is a 63-year-old man with tobacco abuse, enlarged prostate with chronic bladder outlet obstruction, chronic kidney disease, bipolar disorder, COPD, and history of noncompliance, who we have been asked to see in surgical consultation for placement of a tunneled dialysis catheter. He was admitted on 11/13/2023 for acute on chronic renal failure, bilateral hydronephrosis, and anemia. Creatinine on admission was 18.0 and BUN greater than 120. Urology is also been following for the chronic outlet obstruction with bilateral hydronephrosis, as well as him developing hematuria initially. He was not a candidate for ureteral stents as his last cystoscopy they were unable to locate his ureteral orifices. He eventually had bilateral percutaneous nephrostomy tubes placed on 11/18/2023. His creatinine has improved some and is down to 13.3, and he was making urine, but his BUN has remained high at 129 today. Nephrology is following and is wanting to start hemodialysis as he is not able to clear the uremic toxins from his body. They have requested our service place a tunneled hemodialysis catheter. Patient denies ever having dialysis in the past. He is now seen on the medical floor. Review of Systems Review of Systems: All systems reviewed & are unremarkable except as noted in HPI and below PMFSH Past Medical History Medical History Benign prostate hyperplasia Bipolar disorder Chronic kidney disease COPD with emphysema Skin cancer Tobacco dependence Surgical History Surgical History History of tonsillectomy Status post surgical removal of malignant neoplasm of skin From his face and now has a growth on his nose. Family History Family History Other Family history non-contributory Social History Social History Social History: Surrogate medical decision maker: Ari Giron, daughter. Code status: Full code. Smoking packs per day: 1 Smoking cigarettes per day: 20.0 Years smoked: 49
[2023-11-24 21:40] VITALS: BP 132/82; PULSE 98; RESP 20; TEMP 36.1; O2SAT 98
[2023-11-25] VITALS (22 sets, daily range): BP systolic 113–148; BP diastolic 64–88; PULSE 91–116; RESP 13–20; TEMP 36.1–37; O2SAT 97–100
[2023-11-25 06:24] LABS: Basophils Absolute Auto 0.1 K/mm3 (0.0-0.1); Basophils Percent Auto 0.9 % (0.2-1.2); Eosinophils Absolute Auto 0.5 K/mm3 (0-0.3); Eosinophils Percent Auto 6.8 % (0-4.4); Hematocrit 28.3 % (42.0-52.0); Hemoglobin 8.9 g/dL (14.0-18.0); Immature Granulocyte Absolute 0.03 K/mm3 (0.00-0.031); Immature Granulocyte Percent A 0.4 % (0-0.5); Lymphocytes Absolute Auto 1.68 K/mm3 (0.9-3.2); Lymphocytes Percent Auto 21.8 % (18.3-44.2); Mean Corpuscular HGB Conc 31.4 g/dl (32-36); Mean Platelet Volume 10.1 fl (7.4-10.4); Monocytes Absolute Auto 0.6 K/mm3 (0.1-0.6); Monocytes Percent Auto 7.4 % (2.6-8.5); Neutrophils Absolute Auto 4.8 K/mm3 (1.3-6.7); Neutrophils Percent Auto 62.7 % (45.5-73.1); Platelet Count Result 197 k/mm3 (150-375); Red Blood Count 3.18 M/mm3 (4.6-6.20); Red Cell Distribution Width 15.3 % (11.5-14.5); White Blood Count 7.7 K/mm3 (4.5-10.0)
[2023-11-25 06:50] LABS: Alanine Aminotransferase 12 U/L (6-50); Albumin Level 3.7 g/dL (3.5-5.1); Alkaline Phosphatase 80 U/L (38-126); Anion Gap 16 mmol/L (8-16); Aspartate Amino Transferase 16 U/L (17-59); Bilirubin,Total 0.4 mg/dL (0.2-1.3); Calcium 9.4 mg/dL (8.4-10.2); Carbon Dioxide 20 mmol/L (22-30); Chloride 100 mmol/L (98-107); Estimated CRCL calculation 6 ml/min; Estimated Glomerular Filt Rate 4; Glucose 99 mg/dL (65-110); Potassium 4.2 mmol/L (3.4-5.0); Sodium 136 mmol/L (137-145)
[2023-11-25 07:30] LABS: Blood Urea Nitrogen 144 mg/dL (9-20)
[2023-11-25] MEDS: levoFLOXacin 500 MG TABLET PO (09:22)
[2023-11-25] MEDS: TAMSULOSIN HCL 0.4 MG CAPSULE PO (09:22)
[2023-11-25] MEDS: FINASTERIDE 5 MG TABLET PO (09:22)
[2023-11-25] MEDS: CALCIUM CARBONATE (OSCAL) 500 MG TABLET 1000 MG PO ×2 (09:22→17:27)
[2023-11-25] MEDS: ACETAMINOPHEN 325 MG TABLET 650 MG PO ×2 (09:25→18:20)
--- NOTE | 2023-11-25 10:08 | P.PNNP_ITS ---
Progress Note: A&P Assessment and Plan (1) Acute kidney injury: Code(s): N17.9 - Acute kidney failure, unspecified Status: Acute Assessment and Plan: * due to obstructive uropathy/urinary retention * evidence of bilateral hydronephrosis by CT imaging in ER * gutiérrez catheter in place * s/p bilateral nephrostomy tube placement (on 11/18/23) * follow trend of renal function and UOP * making good urine output * BUN and creatinine still indicating inability to clear uremic toxins... * concerning that creatinine remains quite elevated -- he may have suffered irreparable damage to his kidneys * 24hr urine collection demonstrates a creatinine clearance of 5cc/min * agreeable to initiation of dialysis -- HD catheter placement today followed by dialysis * hopefully, dialysis is only a temporary intervention but difficult to know for certain (2) Stage 3b chronic kidney disease: Code(s): N18.32 - Chronic kidney disease, stage 3b Status: Chronic Assessment and Plan: * last creatinine was 1.9mg/dl in July 2023 * presumably due to mulitple bouts of BRYAN/ARF in association with obstructive uropathy (3) Bilateral hydronephrosis: Code(s): N13.30 - Unspecified hydronephrosis Status: Acute Assessment and Plan: * as noted on admission imaging * likely secondary to chronic outlet obstruction * unable to have stents in the past as ureteral orifices were not visible during cystoscopy * possible internal stenting as an outpatient * Urology following (4) Metabolic acidosis: Code(s): E87.20 - Acidosis, unspecified Status: Acute Assessment and Plan: * resolved * likely secondary to BRYAN/ARF * was on bicarbonate gtt to compensate with improvement noted * follow CO2 levels * once dialysis initiated, this should help maintain stability (5) Urinary tract infection: Code(s): N39.0 - Urinary tract infection, site not specified Status: Acute Assessment and Plan: * admission UA highly suggestive * urine culture = Klebsiella * on antibiotics (6) Anemia: Code(s): D64.9 - Anemia, unspecified Status: Acute Assessment and Plan: * suspect related to severe BRYAN/ARF * likely some contributions from hematuria * PRBC per protocol * follow trend of H/H (7) Benign prostate hyperplasia: Code(s): N40.0 - Benign prostatic hyperplasia without lower urinary tract symptoms Status: Chronic Assessment and Plan: * chronic and long standing issue (as noted by his previous hospitalizations) * continue tamsulosin and finasteride * continue gutiérrez catheter * compliance with follow-up with this issue is an ongoing issue Will continue to follow. Subjective Date/time seen: 11/25/23 10:08 Interval history: Follow-up for acute kidney injury/acute renal failure on chronic kidney disease. No apparent distress noted at the time of my visit; scheduled tunneled HD catheter sometime today; no new issues or problems voiced; no events overnight or earlier this morning; tentatively plan HD treatment post-HD catheter placement today. Exam Narrative: General: WD/WN male in NAD Heart: normal S1 and S2; no rub Lungs: clear to auscultation Abdomen: soft, nontender, nondistended, positive bowel sounds Extremities: no cyanosis or clubbing; no edema Skin: no rash Objective Data Vital Signs Vital Signs:
--- NOTE | 2023-11-25 10:08 | PM.PNNEP ---
Progress Note: A&P Assessment and Plan (1) Acute kidney injury: Code(s): N17.9 - Acute kidney failure, unspecified Status: Acute Assessment and Plan: due to obstructive uropathy/urinary retention evidence of bilateral hydronephrosis by CT imaging in ER gutiérrez catheter in place s/p bilateral nephrostomy tube placement (on 11/18/23) follow trend of renal function and UOP making good urine output BUN and creatinine still indicating inability to clear uremic toxins... concerning that creatinine remains quite elevated -- he may have suffered irreparable damage to his kidneys 24hr urine collection demonstrates a creatinine clearance of 5cc/min agreeable to initiation of dialysis -- HD catheter placement today followed by dialysis hopefully, dialysis is only a temporary intervention but difficult to know for certain (2) Stage 3b chronic kidney disease: Code(s): N18.32 - Chronic kidney disease, stage 3b Status: Chronic Assessment and Plan: last creatinine was 1.9mg/dl in July 2023 presumably due to mulitple bouts of BRYAN/ARF in association with obstructive uropathy (3) Bilateral hydronephrosis: Code(s): N13.30 - Unspecified hydronephrosis Status: Acute Assessment and Plan: as noted on admission imaging likely secondary to chronic outlet obstruction unable to have stents in the past as ureteral orifices were not visible during cystoscopy possible internal stenting as an outpatient Urology following (4) Metabolic acidosis: Code(s): E87.20 - Acidosis, unspecified Status: Acute Assessment and Plan: resolved likely secondary to BRYNA/ARF was on bicarbonate gtt to compensate with improvement noted follow CO2 levels once dialysis initiated, this should help maintain stability (5) Urinary tract infection: Code(s): N39.0 - Urinary tract infection, site not specified Status: Acute Assessment and Plan: admission UA highly suggestive urine culture = Klebsiella on antibiotics (6) Anemia: Code(s): D64.9 - Anemia, unspecified Status: Acute Assessment and Plan: suspect related to severe BRYAN/ARF likely some contributions from hematuria PRBC per protocol follow trend of H/H (7) Benign prostate hyperplasia: Code(s): N40.0 - Benign prostatic hyperplasia without lower urinary tract symptoms Status: Chronic Assessment and Plan: chronic and long standing issue (as noted by his previous hospitalizations) continue tamsulosin and finasteride continue gutiérrez catheter compliance with follow-up with this issue is an ongoing issue Will continue to follow. Subjective Date/time seen: 11/25/23 10:08 Interval history: Follow-up for acute kidney injury/acute renal failure on chronic kidney disease. No apparent distress noted at the time of my visit; scheduled tunneled HD catheter sometime today; no new issues or problems voiced; no events overnight or earlier this morning; tentatively plan HD treatment post-HD catheter placement today. Exam Narrative: General: WD/WN male in NAD Heart: normal S1 and S2; no rub Lungs: clear to auscultation Abdomen: soft, nontender, nondistended, positive bowel sounds Extremities: no cyanosis or clubbing; no edema Skin: no rash Objective Data Vital Signs Vital Signs: Vital Signs Temp Pulse Resp BP Pulse Ox O2 Del Method 11/25/23 09:14 97.9 F 91 14 145/77 H 98 Room Air 11/25/23 06:00 96.9 F L 91 16 135/81 98 11/24/23 21:40 97 F L 98 20 132/82 98 11/24/23 20:00 Room Air 11/24/23 13:58 96.3 F L 91 18 142/83 H 97 Intake/Output Intake/Output: Intake & Output 11/22/23 11/23/23 11/24/23 11/25/23 23:59 23:59 23:59 23:59 Intake Total 1937 1720 2290 440 Output Total 1540 2670 2930 890 Balance 713 -950 -640 -450 Meds/Results Medications: Active Medications Generic N
--- NOTE | 2023-11-25 11:45 | WPDANESEPPF ---
Anes - Initial Pre Proc Eval Procedure: Operation Date: 11/25/23 12:30 Proposed Procedures p Insertion Duraflow Permacath Dialysis Tunneled Dialysis Catheter - Tawanda Nieves MD Date/Time: 11/25/23 11:45 Surgeon: Liban Hayes MD Pre Op Diagnosis: Urinary tension, urinary tract infection, acute ki Patient Data Age: 63 Gender: M Height: 1.7 m Weight: 89.3 kg Last Vital Signs Temp 96.9 F L 11/25/23 06:00 Pulse 91 11/25/23 06:00 Resp 16 11/25/23 06:00 BP 135/81 11/25/23 06:00 Pulse Ox 98 11/25/23 06:00 O2 Del Method Room Air 11/24/23 20:00 Allergies Allergy/AdvReac Type Severity Reaction Status Date / Time No Known Allergies Allergy Verified 11/13/23 17:01 Home Medications Medication Instructions Recorded Confirmed Type finasteride 5 mg tablet (Proscar) 5 mg PO QAM #30 tabs 03/19/23 11/13/23 Rx acetaminophen 500 mg tablet 500 mg PO QID PRN Pain 07/30/23 11/13/23 History Laboratory Tests 11/24/23 11/25/23 18:03 05:45 WBC 7.7 K/mm3 (4.5-10.0) RBC 3.18 L M/mm3 (4.6-6.20) Hgb 8.9 L g/dL (14.0-18.0) Hct 28.3 L % (42.0-52.0) MCV 89.0 fl (80-100) MCH 28.0 pg (26-34) MCHC 31.4 L g/dl (32-36) RDW 15.3 H % (11.5-14.5) Plt Count 197 k/mm3 (150-375) MPV 10.1 fl (7.4-10.4) Immature Gran % (Auto) 0.4 % (0-0.5) Neut % (Auto) 62.7 % (45.5-73.1) Lymph % (Auto) 21.8 % (18.3-44.2) [place] % (Auto) 7.4 % (2.6-8.5) Eos % (Auto) 6.8 H % (0-4.4) Baso % (Auto) 0.9 % (0.2-1.2) Lymph # (Auto) 1.68 K/mm3 (0.9-3.2) [place] # (Auto) 0.6 K/mm3 (0.1-0.6) Eos # (Auto) 0.5 H K/mm3 (0-0.3) Baso # (Auto) 0.1 K/mm3 (0.0-0.1) Abs Immat Gran (auto) 0.03 K/mm3 (0.00-0.031) Absolute Neuts (auto) 4.8 K/mm3 (1.3-6.7) Absolute Nucleated RBC 0.0 K/mm3 (0.0-0.012) Nucleated RBC % 0.0 % (0.0-0.2) Sodium 136 L mmol/L (137-145) Potassium 4.2 mmol/L (3.4-5.0) Chloride 100 mmol/L (98-107) Carbon Dioxide 20 L mmol/L (22-30) Anion Gap 16 mmol/L (8-16) BUN 144 H D mg/dL (9-20) Creatinine 12.80 H mg/dL (0.7-1.3) Estim Creat Clear Calc 6 ml/min Estimated GFR 4 L (59 - ) Glucose 99 mg/dL (65-110) Calcium 9.4 mg/dL (8.4-10.2) Total Bilirubin 0.4 mg/dL (0.2-1.3) AST 16 L U/L (17-59) ALT 12 U/L (6-50) Alkaline Phosphatase 80 U/L (38-126) Total Protein 7.0 g/dL (6.3-8.2) Albumin 3.7 g/dL (3.5-5.1) Blood Type O Positive Antibody Screen Negative Patient hx anesthesia problems: none Family hx anesthesia problems: none Results Review: All pre-operative results and documents have been reviewed as part of the pre-operative evaluation. [facility] Past Medical History Medical History Benign prostate hyperplasia Bipolar disorder Chronic kidney disease COPD with emphysema Skin cancer Tobacco dependence Surgical History Surgical History History of tonsillectomy Status post surgical removal of malignant neoplasm of skin From his face and now has a growth on his nose. Family History Family History Other Family history non-contributory Social History Social History Social History: Surrogate medical decision maker: Ari Giron, daughter. Code status: Full code. Smoking packs per day: 1 Smoking cigarettes per day: 20.0 Years smoked: 49 Smoking pack-years: 49.00 Smoking status: Current every day smoker Tobacco type: cigarettes Second hand tobacco smoke exposure: Yes Alcohol intake: never Substance us
[2023-11-25] MEDS: SODIUM CHLORIDE 0.9% IV 500 ML 30 ML IV CONT (11:51)
--- NOTE | 2023-11-25 12:29 | WPDHPUPDATE1 ---
History and Physical Update Update Date/Time: 11/25/23 12:29 History and Physical has been reviewed, including an updated exam of the patient. There are NO changes in the patient's condition. Risks, benefits, and alternatives have been discussed and questions answered. Patient agrees to proceed with procedure.
[2023-11-25] MEDS: ceFAZolin 2 GM/D5W 50 ML 2 GM/50 ML BAG IVPB (12:46)
[2023-11-25] MEDS: LIDO 1%/EPINEPHRINE 1:100,000 50 ML VIAL INFILTRATE (13:20)
[2023-11-25] MEDS: HEPARIN SODIUM, PORCINE 10,000 UNITS/10 ML VIAL 10000 UNITS IV PUSH (13:22)
--- NOTE | 2023-11-25 13:53 | P.OP_ITS ---
Procedure Note - Detailed Date of Procedure 11/25/23 Pre-op Diagnosis Acute on chronic renal failure, inadequate venous access Post-op Diagnosis Same Procedure Performed Placement 32 cm tunneled dura flow central venous catheter for dialysis using ultrasound and under fluoroscopy. Surgeon Tawanda Nieves MD Head Teacher Farida Bedolla TECHNICAL INSPECTOR Anesthesia General (LMA) and Local (0.5% Marcaine with epinephrine) Indications Patient had obstructive related renal failure. Despite bilateral nephrostomy tubes, his creatinine is still quite elevated. I was asked by his assistant sales manager to place a tunneled central venous catheter for dialysis. He is taken to the operating room now for that purpose. Findings None significant. Tip of the catheter was at the distal SVC right atrial junction Description of Procedure Patient was taken to surgery and placed in a supine position. Anesthesia was introduced. The right neck and right upper chest were prepped and draped. Using ultrasound I found the right internal jugular vein. Patient was placed in Trendelenburg to increase the size of the vein. Local anesthetic was infiltrated. Then, using ultrasound guidance, the right internal jugular vein w as cannulated. A guidewire was able to be passed into the superior vena cava. The needle was removed and the patient was placed back in a normal supine position. Fluoroscopy showed the position of the guidewire to be in the SVC and actually go down into the inferior vena cava. I then marked on the draping the general position of the right atrial junction. I laid out the planned position for the dura flow catheter. Counter incisions were marked on the skin. Local was then infiltrated into the various incisions as well as more local into the exit site of the guidewire. I then passed the 32 cm dual lumen dura flow catheter retrograde until the end was coming out at the same opening as the guidewire. Under fluoroscopy, I then passed serial dilators over the guidewire. Finally the introducer and sheath were passed over the guidewire and into the superior vena cava. The guidewire and introducer were removed. The and the catheter was then passed through the sheath and into the superior vena cava. The sheath was then removed. We checked the position of the catheter and it looked good. The tip was in the distal SVC right atrial junction. There was no kinking along the course of the catheter. Both ports were checked several times and both aspirated blood easily and flushed easily with heparin. Final flush was then done for each lumen. Each lumen was then capped. I used 4-0 Vicryl subcuticular suture to close all the incisions associated with guidewire placement. The catheter was also sutured to the skin using 4-0 nylon. An antibiotic disc was placed around the beginning of the catheter near its entrance to the tunnel. We then dressed the catheter with a sterile transparent dressing. Patient was awakened and taken to recovery in good condition. Sponge and needle counts were correct x2. Implants 32 cm dual lumen dura flow central venous catheter Estimated Blood Loss -10 Urine Output 340 Drains No Packing No Pathology None sent Complications No immediate complications Condition Stable Disposition PACU [facility] Billing Surgery - Charge Forward: Surgery Billing (Placement to tunneled duraflow central venous catheter using ultrasound and under fluoroscopic guidance)
[2023-11-25] MEDS: SODIUM CHLORIDE 0.9% IV 1,000 ML 999 ML IV CONT (15:01)
--- NOTE | 2023-11-25 16:08 | PM.IMPN ---
Progress Note: A&P Assessment and Plan (1) Gross hematuria: Code(s): R31.0 - Gross hematuria Status: Resolved Assessment and Plan: Resolved. Patient with gutiérrez catheter, urine remains clear No evidence of clots in the bladder on CT or renal/bladder US Continue to monitor Hemoglobin rising slowly Urology following continue present care gutiérrez insitu watch urine output (2) Urinary tract infection: Code(s): N39.0 - Urinary tract infection, site not specified Status: Acute Assessment and Plan: Urine culture with growth of Klebsiella aerogenes( final) Completed course of Levaquin 500 mg on 11/21/2023 (3) Benign prostate hyperplasia: Code(s): N40.0 - Benign prostatic hyperplasia without lower urinary tract symptoms Status: Chronic Assessment and Plan: Patient with severely enlarged prostate Continue home medication tamsulosin and finasteride Has previously been recommended for PAE; he has been noncompliant with follow up Will need some kind of outlet procedure in the future, however follow-up and compliance remains an issue Will need to continue with Gutiérrez catheter on discharge, per urology recs Plan for eventual internalization of stents, per urology recs; will plan for urology outpatient follow up (4) Bilateral hydronephrosis: Code(s): N13.30 - Unspecified hydronephrosis Status: Acute Assessment and Plan: Left kidney biopsy Anaerobic Culture: reveals: Preliminary 11/20/23 Q SOURCE: LT KIDNEY STATUS: PRELIMINARY GRAM STAIN: Moderate White blood cells seen No organisms seen NOTE: THIS RESULT IS FLAGGED ABNORMAL THIS TEST WAS PERFORMED AT: [facility] [id number] [id number] AGATHA HOFFMANN MD Aerobic Culture Preliminary 11/20/23 Q SOURCE: LT KIDNEY STATUS: PRELIMINARY ISOLATE 1: Scant growth of Klebsiella aerogenes (Enterobacter) Moderate bilateral hydronephrosis noted on imaging which is a chronic finding due to outlet obstruction Not a candidate for ureteral stents as last cystoscopy ureteral orifices were not able to be located Bilateral percutaneous nephrostomy tubes placed per IR . He tolerated this well. 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 Patient with close following with Nephrology/Urology, discussion with Nephrology who will continue surveillance and possible initiation of dialysis, will continue to monitor Hopeful continued improvement following nephrostomy tube placement Continue to trend serum creatinine daily Creatinine remains elevated at 13.80 (3/) -- this is continued improvement since admission 24 hr creatinine clearance labs ordered by nephrology, pending results (11/21) Unfortunately creat staying at 13 creat clearance is 5cc/min pt needs dialysis Tunneled dialysis catheter placement 11/25/2023 and initiation of dialysis per nephrology Plan VTE Prophylaxis: SCDs Code Status: Full Subjective Date/time seen: 11/25/23 16:08 Interval history: No new complaints. Plan for dialysis catheter placement and dialysis noted. Labs were reviewed. Nephrostomy tube bilateral in-situ. Review of Systems Review of Systems: All systems reviewed & are unremarkable except as noted in HPI and below Exam Narrative: General: Awake, alert, comfortable, no acute distress HEENT: Normocephalic, atraumatic, sclerae anicteric Respiratory: Normal respiratory effort, no accessory muscle use Abdo
[2023-11-25] MEDS: EPOETIN ALFA-EPBX 10,000 UNITS/ML VIAL 10000 UNITS IV PUSH (17:30)
[2023-11-25] MEDS: HEPARIN SODIUM 1,000 UNITS/ML VIAL 6000 UNITS (17:42)
[2023-11-25] MEDS: oxyCODONE/ACETAMINOPHEN (*CRX) 5-325 MG TABLET 1 TABLET PO (21:05)
[2023-11-26] VITALS (23 sets, daily range): BP systolic 116–154; BP diastolic 51–91; PULSE 83–114; RESP 16–20; TEMP 36.3–37.1; O2SAT 98–100
[2023-11-26] MEDS: ACETAMINOPHEN 325 MG TABLET 650 MG PO ×2 (05:56→21:34)
[2023-11-26 06:23] LABS: Basophils Percent Auto 0.6 % (0.2-1.2); Eosinophils Absolute Auto 0.1 K/mm3 (0-0.3); Eosinophils Percent Auto 1.3 % (0-4.4); Hematocrit 27.6 % (42.0-52.0); Hemoglobin 8.9 g/dL (14.0-18.0); Immature Granulocyte Absolute 0.03 K/mm3 (0.00-0.031); Immature Granulocyte Percent A 0.4 % (0-0.5); Lymphocytes Absolute Auto 1.58 K/mm3 (0.9-3.2); Lymphocytes Percent Auto 22.7 % (18.3-44.2); Mean Corpuscular HGB Conc 32.2 g/dl (32-36); Mean Corpuscular Hemoglobin 28.6 pg (26-34); Mean Corpuscular Volume 88.7 fl (80-100); Mean Platelet Volume 10.4 fl (7.4-10.4); Monocytes Absolute Auto 0.6 K/mm3 (0.1-0.6); Monocytes Percent Auto 8.2 % (2.6-8.5); Neutrophils Absolute Auto 4.7 K/mm3 (1.3-6.7); Neutrophils Percent Auto 66.8 % (45.5-73.1); Platelet Count Result 181 k/mm3 (150-375); Red Blood Count 3.11 M/mm3 (4.6-6.20); Red Cell Distribution Width 15.8 % (11.5-14.5)
[2023-11-26 06:39] LABS: Alanine Aminotransferase 13 U/L (6-50); Albumin Level 3.8 g/dL (3.5-5.1); Alkaline Phosphatase 95 U/L (38-126); Anion Gap 7 mmol/L (8-16); Aspartate Amino Transferase 21 U/L (17-59); Bilirubin,Total 0.3 mg/dL (0.2-1.3); Blood Urea Nitrogen 77 mg/dL (9-20); Calcium 9.2 mg/dL (8.4-10.2); Carbon Dioxide 29 mmol/L (22-30); Chloride 102 mmol/L (98-107); Estimated CRCL calculation 8 ml/min; Estimated Glomerular Filt Rate 6; Glucose 123 mg/dL (65-110); Magnesium 1.8 mg/dL (1.6-2.3); Potassium 4.3 mmol/L (3.4-5.0); Sodium 138 mmol/L (137-145)
--- NOTE | 2023-11-26 08:53 | WPDUROPN2 ---
Progress Note: A&P Assessment and Plan (1) Chronic kidney disease: Code(s): N18.9 - Chronic kidney disease, unspecified Status: Acute Assessment and Plan: Bilateral nephrostomy tubes in place. Tunneled dialysis catheter placed (2) Bilateral hydronephrosis: Code(s): N13.30 - Unspecified hydronephrosis Status: Acute Assessment and Plan: Bilateral nephrostomy tubes in place. Minimal urine coming from Rubio catheter. This can be discontinued Ultimate plan for bilateral nephrostomy tube still up in the air. Could be internalized 2 stents. Would need to be compliant with stent changes (3) Benign prostate hyperplasia: Code(s): N40.0 - Benign prostatic hyperplasia without lower urinary tract symptoms Status: Chronic Assessment and Plan: Prostate artery embolization has been discussed on numerous times with the patient Subjective Subjective Date/Time Seen: 11/26/23 08:53 Interval history: Urine is clear in bilateral for ostomy tubes. Very little urine coming from Rubio catheter. Tunneled dialysis catheter placed Exam Narrative: No acute distress Urine clear in all 3 bags Very little in the Rubio catheter Objective Data Vital Signs Vital Signs: Vital Signs - 24 hr 11/25/23 12:14 11/25/23 13:54 11/25/23 14:00 Temperature 97.9 F 97.3 F L Pulse Rate 91 116 H 112 H Respiratory Rate 14 16 13 Blood Pressure 145/77 H 121/64 113/67 Pulse Oximetry 98 100 98 Oxygen Delivery Room Air Room Air Room Air 11/25/23 14:15 11/25/23 14:30 11/25/23 14:41 Temperature Pulse Rate 99 97 92 Respiratory Rate 20 20 14 Blood Pressure 131/72 131/70 132/74 Pulse Oximetry 100 100 100 Oxygen Delivery Room Air Room Air Room Air 11/25/23 14:59 11/25/23 15:01 11/25/23 17:00 Temperature 97.5 F L Pulse Rate 98 98 112 H Respiratory Rate 16 Blood Pressure 143/80 H 128/87 137/85 Pulse Oximetry Oxygen Delivery 11/25/23 17:42 11/25/23 15:15 11/25/23 15:30 Temperature 97.7 F Pulse Rate 107 H 96 114 H Respiratory Rate 18 Blood Pressure 128/83 143/88 H 143/76 H Pulse Oximetry Oxygen Delivery 11/25/23 15:45 11/25/23 16:00 11/25/23 16:15 Temperature Pulse Rate 112 H 114 H 109 H Respiratory Rate Blood Pressure 126/84 144/88 H 146/84 H Pulse Oximetry Oxygen Delivery 11/25/23 16:30 11/25/23 16:45 11/25/23 17:15 Temperature Pulse Rate 104 H 107 H 109 H Respiratory Rate Blood Pressure 148/67 H 145/83 H 132/87 Pulse Oximetry Oxygen Delivery 11/25/23 17:30 11/25/23 17:36 11/25/23 20:00 Temperature Pulse Rate 104 H 104 H Respiratory Rate Blood Pressure 136/74 137/86 Pulse Oximetry Oxygen Delivery Room Air 11/25/23 20:28 11/26/23 00:50 11/26/23 05:35 Temperature 98.1 F 98.3 F 97.3 F L Pulse Rate 112 H 106 H 98 Respiratory Rate 20 20 20 Blood Pressure 134/78 120/72 137/51 L Pulse Oximetry 97 98 100 Oxygen Delivery 11/26/23 07:43 Temperature 97.4 F L Pulse Rate 96 Respiratory Rate 16 Blood Pressure 140/79 Pulse Oximetry 100 Oxygen Delivery Intake/Output Intake/Output: Intake & Output 11/23/23 11/24/23 11/25/23 11/26/23 23:59 23:59 23:59 23:59 Intake Total 1720 2290 930 740 Output Total 2670 2930 2110 795 Balance -950 -640 -1180 -55 Meds/Results Medications: Active Medications Generic Name Dose Route Start Last Admin Trade Name Freq PRN Reason Stop Dose Admin Acetaminophen 650 mg 11/13/23 16:16 11/26/23 05:56 Acetaminophen 325 Mg Tablet PO 650 mg Q6H PRN Administration Mild Pain (1-3) or Fever Epoetin Shahzad-epbx 10,000 units 11/26/23 20:00 Epoetin Shahzad-Epbx 10,000 Units/Ml Vial IV PUSH 11/26/23 20:01 ONCE ONE Finasteride 5 mg 11/14/23 09:00 11/25/23 09:22 Finasteride 5 Mg Tablet PO 5 mg QAM CHRIS Administration Sodium Bicarbonate 150 meq/ 1,100 mls @ 0 mls/hr 11/13/23 21:55 11/15/23 18:58 Dextrose IV CONT Not Gi
--- NOTE | 2023-11-26 10:14 | P.PNNP_ITS ---
Progress Note: A&P Assessment and Plan (1) Acute kidney injury: Code(s): N17.9 - Acute kidney failure, unspecified Status: Acute Assessment and Plan: * due to obstructive uropathy/urinary retention * evidence of bilateral hydronephrosis by CT imaging in ER * gutiérrez catheter in place * s/p bilateral nephrostomy tube placement (on 11/18/23) * follow trend of renal function and UOP * making good urine output, however most it it is from the left ureter. * Not making much urine through the bladder. * He received dialysis yesterday and is getting it today so it is difficult to know how the kidneys are actually doing. * Will hold dialysis tomorrow and check creatinine tomorrow and Tuesday to figure out if the kidneys are contributing. * concerning that creatinine remains quite elevated -- he may have suffered irreparable damage to his kidneys * 24hr urine collection demonstrates a creatinine clearance of 5cc/min * How much of this is acute and how much of this is chronic is difficult to know. Patient says that he has been hearing different things about how the kidneys are doing. We discussed that different doctors speak in different vernaculars to try to make it simple for the patient. Basic his kidneys are not functioning very well right now. the creatinine and kidney toxin and kidney poison all refer to the same thing. These are better now because he is on dialysis, not because the kidneys are any better. I discussed that we will investigate things tomorrow and Tuesday to see how the kidneys are doing to see whether we need to continue dialysis. (2) Stage 3b chronic kidney disease: Code(s): N18.32 - Chronic kidney disease, stage 3b Status: Chronic Assessment and Plan: * last creatinine was 1.9mg/dl in July 2023 * presumably due to mulitple bouts of BRYAN/ARF in association with obstructive uropathy (3) Bilateral hydronephrosis: Code(s): N13.30 - Unspecified hydronephrosis Status: Acute Assessment and Plan: * as noted on admission imaging * likely secondary to chronic outlet obstruction * unable to have stents in the past as ureteral orifices were not visible during cystoscopy * possible internal stenting as an outpatient * Urology following (4) Metabolic acidosis: Code(s): E87.20 - Acidosis, unspecified Status: Acute Assessment and Plan: * resolved * likely secondary to BRYAN/ARF * was on bicarbonate gtt to compensate with improvement noted * follow CO2 levels * once dialysis initiated, this should help maintain stability * He does not need bicarbonate supplements anymore. (5) Urinary tract infection: Code(s): N39.0 - Urinary tract infection, site not specified Status: Acute Assessment and Plan: * admission UA highly suggestive * urine culture = Klebsiella * on antibiotics (6) Anemia: Code(s): D64.9 - Anemia, unspecified Status: Acute Assessment and Plan: * suspect related to severe BRYAN/ARF * likely some contributions from hematuria * PRBC per protocol * Check a CBC in the morning (7) Benign prostate hyperplasia: Code(s): N40.0 - Benign prostatic hyperplasia without lower urinary tract symptoms Status: Chronic Assessment and Plan: * chronic and long standing issue (as noted by his previous hospitalizations) * continue tamsulosin and finasteride * continue gutiérrez catheter * compliance with follow-up with this issue is an ongoing issue Will continue to follow. Subjective
--- NOTE | 2023-11-26 10:14 | PM.PNNEP ---
Progress Note: A&P Assessment and Plan (1) Acute kidney injury: Code(s): N17.9 - Acute kidney failure, unspecified Status: Acute Assessment and Plan: due to obstructive uropathy/urinary retention evidence of bilateral hydronephrosis by CT imaging in ER gutiérrez catheter in place s/p bilateral nephrostomy tube placement (on 11/18/23) follow trend of renal function and UOP making good urine output, however most it it is from the left ureter. Not making much urine through the bladder. He received dialysis yesterday and is getting it today so it is difficult to know how the kidneys are actually doing. Will hold dialysis tomorrow and check creatinine tomorrow and Tuesday to figure out if the kidneys are contributing. concerning that creatinine remains quite elevated -- he may have suffered irreparable damage to his kidneys 24hr urine collection demonstrates a creatinine clearance of 5cc/min How much of this is acute and how much of this is chronic is difficult to know. Patient says that he has been hearing different things about how the kidneys are doing. We discussed that different doctors speak in different vernaculars to try to make it simple for the patient. Basic his kidneys are not functioning very well right now. the creatinine and kidney toxin and kidney poison all refer to the same thing. These are better now because he is on dialysis, not because the kidneys are any better. I discussed that we will investigate things tomorrow and Tuesday to see how the kidneys are doing to see whether we need to continue dialysis. (2) Stage 3b chronic kidney disease: Code(s): N18.32 - Chronic kidney disease, stage 3b Status: Chronic Assessment and Plan: last creatinine was 1.9mg/dl in July 2023 presumably due to mulitple bouts of BRYAN/ARF in association with obstructive uropathy (3) Bilateral hydronephrosis: Code(s): N13.30 - Unspecified hydronephrosis Status: Acute Assessment and Plan: as noted on admission imaging likely secondary to chronic outlet obstruction unable to have stents in the past as ureteral orifices were not visible during cystoscopy possible internal stenting as an outpatient Urology following (4) Metabolic acidosis: Code(s): E87.20 - Acidosis, unspecified Status: Acute Assessment and Plan: resolved likely secondary to BRYAN/ARF was on bicarbonate gtt to compensate with improvement noted follow CO2 levels once dialysis initiated, this should help maintain stability He does not need bicarbonate supplements anymore. (5) Urinary tract infection: Code(s): N39.0 - Urinary tract infection, site not specified Status: Acute Assessment and Plan: admission UA highly suggestive urine culture = Klebsiella on antibiotics (6) Anemia: Code(s): D64.9 - Anemia, unspecified Status: Acute Assessment and Plan: suspect related to severe BRYAN/ARF likely some contributions from hematuria PRBC per protocol Check a CBC in the morning (7) Benign prostate hyperplasia: Code(s): N40.0 - Benign prostatic hyperplasia without lower urinary tract symptoms Status: Chronic Assessment and Plan: chronic and long standing issue (as noted by his previous hospitalizations) continue tamsulosin and finasteride continue gutiérrez catheter compliance with follow-up with this issue is an ongoing issue Will continue to follow. Subjective Date/time seen: 11/26/23 10:14 Interval history: patient is on dialysis and tolerating it well. blood pressure is good. He is on a 3K bath. No fluid is ordered to be removed. He was seen at 9:45 a.m. Exam Narrative: General: WD/WN male in NAD Heart: normal S1 and S2; no rub or gallop Lungs: clear to auscultation Abdomen: soft, nontender, nondistended, positive bowel sounds Extremities: no cyanosis or clubb
[2023-11-26] MEDS: EPOETIN ALFA-EPBX 10,000 UNITS/ML VIAL 10000 UNITS IV PUSH (11:08)
[2023-11-26] MEDS: HEPARIN SODIUM 1,000 UNITS/ML VIAL 6000 UNITS IV PUSH (12:27)
--- NOTE | 2023-11-26 13:41 | PM.IMPN ---
Progress Note: A&P Assessment and Plan (1) Gross hematuria: Code(s): R31.0 - Gross hematuria Status: Resolved Assessment and Plan: Resolved. Patient with gutiérrez catheter, urine remains clear No evidence of clots in the bladder on CT or renal/bladder US Continue to monitor Hemoglobin rising slowly Urology following continue present care gutiérrez insitu. Gutiérrez has been removed per Urology instruction watch urine output (2) Urinary tract infection: Code(s): N39.0 - Urinary tract infection, site not specified Status: Acute Assessment and Plan: Urine culture with growth of Klebsiella aerogenes( final) Completed course of Levaquin 500 mg on 11/21/2023 (3) Benign prostate hyperplasia: Code(s): N40.0 - Benign prostatic hyperplasia without lower urinary tract symptoms Status: Chronic Assessment and Plan: Patient with severely enlarged prostate Continue home medication tamsulosin and finasteride Has previously been recommended for PAE; he has been noncompliant with follow up Will need some kind of outlet procedure in the future, however follow-up and compliance remains an issue Will need to continue with Gutiérrez catheter on discharge, per urology recs Plan for eventual internalization of stents, per urology recs; will plan for urology outpatient follow up (4) Bilateral hydronephrosis: Code(s): N13.30 - Unspecified hydronephrosis Status: Acute Assessment and Plan: Left kidney biopsy Anaerobic Culture: reveals: Preliminary 11/20/23 Q SOURCE: LT KIDNEY STATUS: PRELIMINARY GRAM STAIN: Moderate White blood cells seen No organisms seen NOTE: THIS RESULT IS FLAGGED ABNORMAL THIS TEST WAS PERFORMED AT: [id number] [id number] AGATHA HOFFMANN MD Aerobic Culture Preliminary 11/20/23 Q SOURCE: LT KIDNEY STATUS: PRELIMINARY ISOLATE 1: Scant growth of Klebsiella aerogenes (Enterobacter) Moderate bilateral hydronephrosis noted on imaging which is a chronic finding due to outlet obstruction Not a candidate for ureteral stents as last cystoscopy ureteral orifices were not able to be located Bilateral percutaneous nephrostomy tubes placed per IR . He tolerated this well. 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 Patient with close following with Nephrology/Urology, discussion with Nephrology who will continue surveillance and possible initiation of dialysis, will continue to monitor Hopeful continued improvement following nephrostomy tube placement Continue to trend serum creatinine daily Creatinine remains elevated at 13.80 (11/21) -- this is continued improvement since admission 24 hr creatinine clearance labs ordered by nephrology, pending results (11/21) Unfortunately creat staying at 13 creat clearance is 5cc/min pt needs dialysis Tunneled dialysis catheter placement 11/25/2023 and initiation of dialysis per nephrology on 11/25/2023 Plan VTE Prophylaxis: SCDs Code Status: Full Subjective Date/time seen: 11/26/23 13:41 Interval history: Dialysis catheter placed and started on dialysis another round again today. Review of Systems Review of Systems: All systems reviewed & are unremarkable except as noted in HPI and below Exam Narrative: General: Awake, alert, comfortable, no acute distress HEENT: Normocephalic, atraumatic, sclerae anicteric Respiratory: Normal respiratory effort, no accessory muscle use
[2023-11-26] MEDS: FINASTERIDE 5 MG TABLET PO (14:00)
[2023-11-26] MEDS: TAMSULOSIN HCL 0.4 MG CAPSULE PO (14:00)
--- NOTE | 2023-11-27 03:33 | PC.NURSE ---
Daylight Savings Time For Daylight Savings Time Ending in the Fall - Clocks are moved back. For Daylight Savings Time Beginning in the Spring - Clocks are moved ahead. For [facility], the time of change occurs at 0200 hrs. Time is taken from the beverage server. This entry on the patient's chart recognizes the change in time reflected during documentation. Example: 2 entries for vital signs may be charted for 0200 hrs.
[2023-11-27 06:15] LABS: Hemoglobin 8.5 g/dL (14.0-18.0); Mean Corpuscular HGB Conc 30.4 g/dl (32-36); Mean Corpuscular Volume 92.1 fl (80-100); Mean Platelet Volume 9.9 fl (7.4-10.4); Platelet Count Result 184 k/mm3 (150-375); Red Blood Count 3.04 M/mm3 (4.6-6.20); Red Cell Distribution Width 15.9 % (11.5-14.5); White Blood Count 6.7 K/mm3 (4.5-10.0)
[2023-11-27 06:26] LABS: Anion Gap 8 mmol/L (8-16); Blood Urea Nitrogen 64 mg/dL (9-20); Calcium 8.5 mg/dL (8.4-10.2); Carbon Dioxide 25 mmol/L (22-30); Chloride 103 mmol/L (98-107); Estimated CRCL calculation 11 ml/min; Estimated Glomerular Filt Rate 8; Glucose 99 mg/dL (65-110); Magnesium 1.7 mg/dL (1.6-2.3); Phosphorus 4.4 mg/dL (2.5-4.5); Potassium 3.8 mmol/L (3.4-5.0); Sodium 136 mmol/L (137-145)
--- NOTE | 2023-11-27 08:20 | P.PNNP_ITS ---
Progress Note: A&P Assessment and Plan (1) Acute kidney injury: Code(s): N17.9 - Acute kidney failure, unspecified Status: Acute Assessment and Plan: * due to obstructive uropathy/urinary retention * evidence of bilateral hydronephrosis by CT imaging in ER * gutiérrez catheter was in place is, however very little urine output that way. So Gutiérrez catheter is now gone. * s/p bilateral nephrostomy tube placement (on 11/18/23) * follow trend of renal function and UOP * making good urine output, Almost twice as much from the left than from the right. * His creatinine is improved because of the dialysis. * Will see what his creatinine is tomorrow and decide whether he needs dialysis or not. * Hopefully renal function will improve at least enough to get off dialysis (2) Stage 3b chronic kidney disease: Code(s): N18.32 - Chronic kidney disease, stage 3b Status: Chronic Assessment and Plan: * last creatinine was 1.9mg/dl in July 2023 * presumably due to mulitple bouts of BRYAN/ARF in association with obstructive uropathy (3) Bilateral hydronephrosis: Code(s): N13.30 - Unspecified hydronephrosis Status: Acute Assessment and Plan: * as noted on admission imaging * likely secondary to chronic outlet obstruction * unable to have stents in the past as ureteral orifices were not visible during cystoscopy * possible internal stenting as an outpatient * Urology following (4) Metabolic acidosis: Code(s): E87.20 - Acidosis, unspecified Status: Acute Assessment and Plan: * resolved (5) Urinary tract infection: Code(s): N39.0 - Urinary tract infection, site not specified Status: Acute Assessment and Plan: * admission UA highly suggestive * urine culture = Klebsiella * on Levaquin (6) Anemia: Code(s): D64.9 - Anemia, unspecified Status: Acute Assessment and Plan: * suspect related to severe BRYAN/ARF * likely some contributions from hematuria * will continue Epogen (7) Benign prostate hyperplasia: Code(s): N40.0 - Benign prostatic hyperplasia without lower urinary tract symptoms Status: Chronic Assessment and Plan: * chronic and long standing issue (as noted by his previous hospitalizations) * continue tamsulosin and finasteride Subjective Date/time seen: 11/27/23 08:20 Interval history: patient feels okay this morning. Eating well. He slept well. No shortness of breath Exam Narrative: General: WD/WN male in NAD Heart: normal S1 and S2; no rub or gallop Lungs: clear bilaterally Abdomen: soft, nontender, nondistended, positive bowel sounds Extremities: no edema Skin: no rash or subcu nodules Objective Data Vital Signs Vital Signs: Vital Signs - 24 hr 11/26/23 07:43 11/26/23 09:12 11/26/23 09:00 Temperature 97.4 F L 98.8 F Pulse Rate 96 86 90 Respiratory Rate 16 16 Blood Pressure 140/79 154/81 H 129/79 Pulse Oximetry 100 Oxygen Delivery 11/26/23 09:30 11/26/23 10:00 11/26/23 10:30 Temperature Pulse Rate 90 92 96 Respiratory Rate Blood Pressure 135/86 127/79 139/78 Pulse Oximetry Oxygen Delivery 11/26/23 10:45 0
--- NOTE | 2023-11-27 08:20 | PM.PNNEP ---
Progress Note: A&P Assessment and Plan (1) Acute kidney injury: Code(s): N17.9 - Acute kidney failure, unspecified Status: Acute Assessment and Plan: due to obstructive uropathy/urinary retention evidence of bilateral hydronephrosis by CT imaging in ER gutiérrez catheter was in place is, however very little urine output that way. So Gutiérrez catheter is now gone. s/p bilateral nephrostomy tube placement (on 11/18/23) follow trend of renal function and UOP making good urine output, Almost twice as much from the left than from the right. His creatinine is improved because of the dialysis. Will see what his creatinine is tomorrow and decide whether he needs dialysis or not. Hopefully renal function will improve at least enough to get off dialysis (2) Stage 3b chronic kidney disease: Code(s): N18.32 - Chronic kidney disease, stage 3b Status: Chronic Assessment and Plan: last creatinine was 1.9mg/dl in July 2023 presumably due to mulitple bouts of BRYAN/ARF in association with obstructive uropathy (3) Bilateral hydronephrosis: Code(s): N13.30 - Unspecified hydronephrosis Status: Acute Assessment and Plan: as noted on admission imaging likely secondary to chronic outlet obstruction unable to have stents in the past as ureteral orifices were not visible during cystoscopy possible internal stenting as an outpatient Urology following (4) Metabolic acidosis: Code(s): E87.20 - Acidosis, unspecified Status: Acute Assessment and Plan: resolved (5) Urinary tract infection: Code(s): N39.0 - Urinary tract infection, site not specified Status: Acute Assessment and Plan: admission UA highly suggestive urine culture = Klebsiella on Levaquin (6) Anemia: Code(s): D64.9 - Anemia, unspecified Status: Acute Assessment and Plan: suspect related to severe BRYAN/ARF likely some contributions from hematuria will continue Epogen (7) Benign prostate hyperplasia: Code(s): N40.0 - Benign prostatic hyperplasia without lower urinary tract symptoms Status: Chronic Assessment and Plan: chronic and long standing issue (as noted by his previous hospitalizations) continue tamsulosin and finasteride Subjective Date/time seen: 11/27/23 08:20 Interval history: patient feels okay this morning. Eating well. He slept well. No shortness of breath Exam Narrative: General: WD/WN male in NAD Heart: normal S1 and S2; no rub or gallop Lungs: clear bilaterally Abdomen: soft, nontender, nondistended, positive bowel sounds Extremities: no edema Skin: no rash or subcu nodules Objective Data Vital Signs Vital Signs: Vital Signs - 24 hr 11/26/23 07:43 11/26/23 09:12 11/26/23 09:00 Temperature 97.4 F L 98.8 F Pulse Rate 96 86 90 Respiratory Rate 16 16 Blood Pressure 140/79 154/81 H 129/79 Pulse Oximetry 100 Oxygen Delivery 11/26/23 09:30 11/26/23 10:00 11/26/23 10:30 Temperature Pulse Rate 90 92 96 Respiratory Rate Blood Pressure 135/86 127/79 139/78 Pulse Oximetry Oxygen Delivery 11/26/23 10:45 11/26/23 11:30 11/26/23 12:18 Temperature 97.9 F Pulse Rate 87 83 95 Respiratory Rate 16 Blood Pressure 134/76 141/75 H 138/91 H Pulse Oximetry Oxygen Delivery 11/26/23 09:15 11/26/23 09:45 11/26/23 10:15 Temperature Pulse Rate 86 90 94 Respiratory Rate Blood Pressure 154/81 H 131/75 126/77 Pulse Oximetry Oxygen Delivery 11/26/23 11:00 11/26/23 11:15 11/26/23 11:15 Temperature Pulse Rate 94 92 83 Respiratory Rate Blood Pressure 129/81 131/81 141/75 H Pulse Oximetry Oxygen Delivery 11/26/23 11:45 11/26/23 12:00 11/26/23 12:12 Temperature Pulse Rate 84 83 90 Respiratory Rate Blood Pressure 131/83 126/72 137/76 Pulse Oximetry Oxygen Delivery
[2023-11-27] MEDS: levoFLOXacin 500 MG TABLET PO (08:51)
[2023-11-27] MEDS: FINASTERIDE 5 MG TABLET PO (08:51)
[2023-11-27] MEDS: TAMSULOSIN HCL 0.4 MG CAPSULE PO (08:51)
[2023-11-27] MEDS: polyethylene glycoL 3350 17 GM POWD.PACK PO (10:16)
--- NOTE | 2023-11-27 11:51 | PM.IMPN ---
Progress Note: A&P Assessment and Plan (1) Gross hematuria: Code(s): R31.0 - Gross hematuria Status: Resolved Assessment and Plan: Resolved. Patient with gutiérrez catheter, urine remains clear No evidence of clots in the bladder on CT or renal/bladder US Continue to monitor Hemoglobin rising slowly Urology following continue present care gutiérrez insitu. Gutiérrez has been removed per Urology instruction watch urine output (2) Urinary tract infection: Code(s): N39.0 - Urinary tract infection, site not specified Status: Acute Assessment and Plan: Urine culture with growth of Klebsiella aerogenes( final) Completed course of Levaquin 500 mg on 11/21/2023 (3) Benign prostate hyperplasia: Code(s): N40.0 - Benign prostatic hyperplasia without lower urinary tract symptoms Status: Chronic Assessment and Plan: Patient with severely enlarged prostate Continue home medication tamsulosin and finasteride Has previously been recommended for PAE; he has been noncompliant with follow up Will need some kind of outlet procedure in the future, however follow-up and compliance remains an issue Will need to continue with Gutiérrez catheter on discharge, per urology recs Plan for eventual internalization of stents, per urology recs; will plan for urology outpatient follow up (4) Bilateral hydronephrosis: Code(s): N13.30 - Unspecified hydronephrosis Status: Acute Assessment and Plan: Left kidney biopsy Anaerobic Culture: reveals: Preliminary 11/20/23 Q SOURCE: LT KIDNEY STATUS: PRELIMINARY GRAM STAIN: Moderate White blood cells seen No organisms seen NOTE: THIS RESULT IS FLAGGED ABNORMAL THIS TEST WAS PERFORMED AT: [id number] [id number] AGATHA HOFFMANN MD Aerobic Culture Preliminary 11/20/23 Q SOURCE: LT KIDNEY STATUS: PRELIMINARY ISOLATE 1: Scant growth of Klebsiella aerogenes (Enterobacter) Moderate bilateral hydronephrosis noted on imaging which is a chronic finding due to outlet obstruction Not a candidate for ureteral stents as last cystoscopy ureteral orifices were not able to be located Bilateral percutaneous nephrostomy tubes placed per IR . He tolerated this well. 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 Patient with close following with Nephrology/Urology, discussion with Nephrology who will continue surveillance and possible initiation of dialysis, will continue to monitor Hopeful continued improvement following nephrostomy tube placement Continue to trend serum creatinine daily Creatinine remains elevated at 13.80 (11/21) -- this is continued improvement since admission 24 hr creatinine clearance labs ordered by nephrology, pending results (11/21) Unfortunately creat staying at 13 creat clearance is 5cc/min pt needs dialysis Tunneled dialysis catheter placement 11/25/2023 and initiation of dialysis per nephrology on 11/25/2023 Plan VTE Prophylaxis: SCDs Code Status: Full Subjective Date/time seen: 11/27/23 11:51 Interval history: Overnight events. Feels okay no new complaints. Review of Systems Review of Systems: All systems reviewed & are unremarkable except as noted in HPI and below Exam Narrative: General: Awake, alert, comfortable, no acute distress HEENT: Normocephalic, atraumatic, sclerae anicteric Respiratory: Normal respiratory effort, no accessory muscle use Abdomen: Nondistended, sof
[2023-11-27] MEDS: ACETAMINOPHEN 325 MG TABLET 650 MG PO (18:14)
[2023-11-27 19:56] LABS: Hepatitis B Core Ab Total Nonreactive (Nonreactive)
[2023-11-27 21:49] VITALS: BP 132/77; PULSE 89; RESP 18; TEMP 36.9; O2SAT 97
[2023-11-28] VITALS (19 sets, daily range): BP systolic 124–140; BP diastolic 66–90; PULSE 74–120; RESP 16–20; TEMP 36.1–37; O2SAT 97–98
[2023-11-28 06:16] LABS: Basophils Absolute Auto 0.1 K/mm3 (0.0-0.1); Basophils Percent Auto 1.1 % (0.2-1.2); Eosinophils Absolute Auto 0.6 K/mm3 (0-0.3); Eosinophils Percent Auto 7.4 % (0-4.4); Hematocrit 26.1 % (42.0-52.0); Hemoglobin 8.1 g/dL (14.0-18.0); Immature Granulocyte Absolute 0.07 K/mm3 (0.00-0.031); Immature Granulocyte Percent A 0.9 % (0-0.5); Lymphocytes Absolute Auto 1.64 K/mm3 (0.9-3.2); Lymphocytes Percent Auto 21.7 % (18.3-44.2); Mean Corpuscular Hemoglobin 28.4 pg (26-34); Mean Corpuscular Volume 91.6 fl (80-100); Mean Platelet Volume 9.8 fl (7.4-10.4); Monocytes Absolute Auto 0.8 K/mm3 (0.1-0.6); Monocytes Percent Auto 10.8 % (2.6-8.5); Neutrophils Absolute Auto 4.4 K/mm3 (1.3-6.7); Neutrophils Percent Auto 58.1 % (45.5-73.1); Platelet Count Result 184 k/mm3 (150-375); Red Blood Count 2.85 M/mm3 (4.6-6.20); White Blood Count 7.6 K/mm3 (4.5-10.0)
[2023-11-28 06:37] LABS: Albumin Level 3.5 g/dL (3.5-5.1); Alkaline Phosphatase 80 U/L (38-126); Anion Gap 7 mmol/L (8-16); Aspartate Amino Transferase 16 U/L (17-59); Bilirubin,Total 0.3 mg/dL (0.2-1.3); Blood Urea Nitrogen 78 mg/dL (9-20); Calcium 8.4 mg/dL (8.4-10.2); Carbon Dioxide 25 mmol/L (22-30); Chloride 101 mmol/L (98-107); Estimated CRCL calculation 8 ml/min; Estimated Glomerular Filt Rate 6; Glucose 98 mg/dL (65-110); Magnesium 1.6 mg/dL (1.6-2.3); Phosphorus 4.9 mg/dL (2.5-4.5); Potassium 4.2 mmol/L (3.4-5.0); Sodium 133 mmol/L (137-145)
[2023-11-28 06:38] LABS: Alanine Aminotransferase < 6 U/L (6-50)
[2023-11-28] MEDS: HEPARIN SODIUM 1,000 UNITS/ML VIAL 1000 UNITS IV PUSH (10:24)
--- NOTE | 2023-11-28 10:40 | P.PNNP_ITS ---
Progress Note: A&P Assessment and Plan (1) Acute kidney injury: Code(s): N17.9 - Acute kidney failure, unspecified Status: Acute Assessment and Plan: * due to obstructive uropathy/urinary retention * evidence of bilateral hydronephrosis by CT imaging in ER * gutiérrez catheter was in place is, however very little urine output that way. So Gutiérrez catheter is now gone. * s/p bilateral nephrostomy tube placement (on 11/18/23) * u.o. still good, more from left nephrostomy than right. * creatinine still climbs between treatments (6 to 9 over last 24h) so another tx today. * outpt dialysis being arranged * discharge okay once arranged. (2) Stage 3b chronic kidney disease: Code(s): N18.32 - Chronic kidney disease, stage 3b Status: Chronic Assessment and Plan: * last creatinine was 1.9mg/dl in July 2023 * presumably due to mulitple bouts of BRYAN/ARF in association with obstructive uropathy (3) Bilateral hydronephrosis: Code(s): N13.30 - Unspecified hydronephrosis Status: Acute Assessment and Plan: * as noted on admission imaging * likely secondary to chronic outlet obstruction * unable to have stents in the past as ureteral orifices were not visible during cystoscopy * possible internal stenting as an outpatient * Urology following (4) Metabolic acidosis: Code(s): E87.20 - Acidosis, unspecified Status: Acute Assessment and Plan: * resolved (5) Urinary tract infection: Code(s): N39.0 - Urinary tract infection, site not specified Status: Acute Assessment and Plan: * admission UA highly suggestive * urine culture = Klebsiella * on Levaquin (6) Anemia: Code(s): D64.9 - Anemia, unspecified Status: Acute Assessment and Plan: * hb below 10 * will continue Epogen (7) Benign prostate hyperplasia: Code(s): N40.0 - Benign prostatic hyperplasia without lower urinary tract symptoms Status: Chronic Assessment and Plan: * chronic and long standing issue (as noted by his previous hospitalizations) * continue tamsulosin and finasteride Subjective Date/time seen: 11/28/23 10:40 Interval history: alert. on HD chris it well. bp is good. Seen at 9:30am still making urine no sob or cp Exam Narrative: General: WD/WN male in NAD Heart: normal S1 and S2; no rub or gallop Lungs: clear to ausc Abdomen: soft, nontender, nondistended, positive bowel sounds Extremities: no edema or cyanosis Skin: no rash Objective Data Vital Signs Vital Signs: Vital Signs - 24 hr 11/27/23 21:49 11/27/23 20:00 11/28/23 05:25 Temperature 98.4 F 97 F L Pulse Rate 89 74 Respiratory Rate 18 20 Blood Pressure 132/77 134/86 Pulse Oximetry 97 97 Oxygen Delivery Room Air Intake/Output Intake/Output: Intake & Output 11/25/23 11/26/23 11/27/23 11/28/23 22:59 22:59 23:59 23:59 Intake Total 1500 Output Total 920 Balance 580 Meds/Results Medications: Active Medications Generic Name Dose Route Start Last Admin Trade Name Freq PRN Reason Stop Dose Admin Acetaminophen 650 mg 11/13/23 16:16 11/27/23 18:14
--- NOTE | 2023-11-28 10:40 | PM.PNNEP ---
Progress Note: A&P Assessment and Plan (1) Acute kidney injury: Code(s): N17.9 - Acute kidney failure, unspecified Status: Acute Assessment and Plan: due to obstructive uropathy/urinary retention evidence of bilateral hydronephrosis by CT imaging in ER gutiérrez catheter was in place is, however very little urine output that way. So Gutiérrez catheter is now gone. s/p bilateral nephrostomy tube placement (on 11/18/23) u.o. still good, more from left nephrostomy than right. creatinine still climbs between treatments (6 to 9 over last 24h) so another tx today. outpt dialysis being arranged discharge okay once arranged. (2) Stage 3b chronic kidney disease: Code(s): N18.32 - Chronic kidney disease, stage 3b Status: Chronic Assessment and Plan: last creatinine was 1.9mg/dl in July 2023 presumably due to mulitple bouts of BRYAN/ARF in association with obstructive uropathy (3) Bilateral hydronephrosis: Code(s): N13.30 - Unspecified hydronephrosis Status: Acute Assessment and Plan: as noted on admission imaging likely secondary to chronic outlet obstruction unable to have stents in the past as ureteral orifices were not visible during cystoscopy possible internal stenting as an outpatient Urology following (4) Metabolic acidosis: Code(s): E87.20 - Acidosis, unspecified Status: Acute Assessment and Plan: resolved (5) Urinary tract infection: Code(s): N39.0 - Urinary tract infection, site not specified Status: Acute Assessment and Plan: admission UA highly suggestive urine culture = Klebsiella on Levaquin (6) Anemia: Code(s): D64.9 - Anemia, unspecified Status: Acute Assessment and Plan: hb below 10 will continue Epogen (7) Benign prostate hyperplasia: Code(s): N40.0 - Benign prostatic hyperplasia without lower urinary tract symptoms Status: Chronic Assessment and Plan: chronic and long standing issue (as noted by his previous hospitalizations) continue tamsulosin and finasteride Subjective Date/time seen: 11/28/23 10:40 Interval history: alert. on HD chris it well. bp is good. Seen at 9:30am still making urine no sob or cp Exam Narrative: General: WD/WN male in NAD Heart: normal S1 and S2; no rub or gallop Lungs: clear to ausc Abdomen: soft, nontender, nondistended, positive bowel sounds Extremities: no edema or cyanosis Skin: no rash Objective Data Vital Signs Vital Signs: Vital Signs - 24 hr 11/27/23 21:49 11/27/23 20:00 11/28/23 05:25 Temperature 98.4 F 97 F L Pulse Rate 89 74 Respiratory Rate 18 20 Blood Pressure 132/77 134/86 Pulse Oximetry 97 97 Oxygen Delivery Room Air Intake/Output Intake/Output: Intake & Output 11/25/23 11/26/23 11/27/23 11/28/23 22:59 22:59 23:59 23:59 Intake Total 1500 Output Total 920 Balance 580 Meds/Results Medications: Active Medications Generic Name Dose Route Start Last Admin Trade Name Freq PRN Reason Stop Dose Admin Acetaminophen 650 mg 11/13/23 16:16 11/27/23 18:14 Acetaminophen 325 Mg Tablet PO 650 mg Q6H PRN Administration Mild Pain (1-3) or Fever Epoetin Shahzad-epbx 10,000 units 11/28/23 09:00 Epoetin Shahzad-Epbx 10,000 Units/Ml Vial IV PUSH MOWEFR@09 CHRIS Finasteride 5 mg 11/14/23 09:00 11/27/23 08:51 Finasteride 5 Mg Tablet PO 5 mg QAM CHRIS Administration Heparin Sodium (Porcine) 500 units 11/28/23 10:26 Heparin Sodium 5,000 Units/Ml Vial IV CONT 11/28/23 10:27 ONCE ONE Albumin Human 50 mls @ 999 mls/hr 11/25/23 12:45 Albutein IVPB 12/25/23 12:44 Q10M PRN HYPOTENSION Levofloxacin 500 mg 11/23/23 09:00 11/27/23 08:51 Levofloxacin 500 Mg Tablet PO 500 mg Q48H CHRIS Administration Morphine Sulfate 2 mg 11/25/23 14:43 Morphine Sulfate (*Crx) 2 Mg/Ml Inj I
[2023-11-28] MEDS: EPOETIN ALFA-EPBX 10,000 UNITS/ML VIAL 10000 UNITS IV PUSH (11:07)
--- NOTE | 2023-11-28 12:48 | PC.NURSE ---
patient back from dialysis, stable, neph tubes emptied, patient eating lunch.
--- NOTE | 2023-11-28 12:54 | PM.IMPN ---
Progress Note: A&P Assessment and Plan (1) Gross hematuria: Code(s): R31.0 - Gross hematuria Status: Resolved Assessment and Plan: Resolved. Patient with gutiérrez catheter, urine remains clear No evidence of clots in the bladder on CT or renal/bladder US Continue to monitor Hemoglobin rising slowly Urology following continue present care gutiérrez insitu. Gutiérrez has been removed per Urology instruction watch urine output (2) Urinary tract infection: Code(s): N39.0 - Urinary tract infection, site not specified Status: Acute Assessment and Plan: Urine culture with growth of Klebsiella aerogenes( final) Completed course of Levaquin 500 mg on 11/21/2023 (3) Benign prostate hyperplasia: Code(s): N40.0 - Benign prostatic hyperplasia without lower urinary tract symptoms Status: Chronic Assessment and Plan: Patient with severely enlarged prostate Continue home medication tamsulosin and finasteride Has previously been recommended for PAE; he has been noncompliant with follow up Will need some kind of outlet procedure in the future, however follow-up and compliance remains an issue Will need to continue with Gutiérrez catheter on discharge, per urology recs Plan for eventual internalization of stents, per urology recs; will plan for urology outpatient follow up (4) Bilateral hydronephrosis: Code(s): N13.30 - Unspecified hydronephrosis Status: Acute Assessment and Plan: Left kidney biopsy Anaerobic Culture: reveals: Preliminary 11/20/23 Q SOURCE: LT KIDNEY STATUS: PRELIMINARY GRAM STAIN: Moderate White blood cells seen No organisms seen NOTE: THIS RESULT IS FLAGGED ABNORMAL THIS TEST WAS PERFORMED AT: [id number] [id number] AGATHA HOFFMANN MD Aerobic Culture Preliminary 11/20/23 Q SOURCE: LT KIDNEY STATUS: PRELIMINARY ISOLATE 1: Scant growth of Klebsiella aerogenes (Enterobacter) Moderate bilateral hydronephrosis noted on imaging which is a chronic finding due to outlet obstruction Not a candidate for ureteral stents as last cystoscopy ureteral orifices were not able to be located Bilateral percutaneous nephrostomy tubes placed per IR . He tolerated this well. 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 Patient with close following with Nephrology/Urology, discussion with Nephrology who will continue surveillance and possible initiation of dialysis, will continue to monitor Hopeful continued improvement following nephrostomy tube placement Continue to trend serum creatinine daily Creatinine remains elevated at 13.80 (11/21) -- this is continued improvement since admission 24 hr creatinine clearance labs ordered by nephrology, pending results (11/21) Unfortunately creat staying at 13 creat clearance is 5cc/min pt needs dialysis Tunneled dialysis catheter placement 11/25/2023 and initiation of dialysis per nephrology on 11/25/2023 Need long-term dialysis discussed with care coordination Plan for discharge in a.m. once chair time is fixed Plan VTE Prophylaxis: SCDs Code Status: Full Subjective Date/time seen: 11/28/23 12:54 Interval history: No new complaints. No overnight events. No nausea vomiting abdominal pain. Being dialysis today discussed with care coordination. Review of Systems Review of Systems: All systems reviewed & are unremarkable except as noted in HPI and below Exam Narrative: General:
[2023-11-28] MEDS: FINASTERIDE 5 MG TABLET PO (13:00)
[2023-11-28] MEDS: TAMSULOSIN HCL 0.4 MG CAPSULE PO (13:00)
[2023-11-29 05:05] VITALS: BP 131/73; PULSE 88; RESP 20; TEMP 36.1; O2SAT 96
[2023-11-29 07:08] LABS: Basophils Absolute Auto 0.1 K/mm3 (0.0-0.1); Basophils Percent Auto 0.9 % (0.2-1.2); Eosinophils Absolute Auto 0.6 K/mm3 (0-0.3); Eosinophils Percent Auto 8.3 % (0-4.4); Hematocrit 26.5 % (42.0-52.0); Hemoglobin 8.4 g/dL (14.0-18.0); Immature Granulocyte Absolute 0.05 K/mm3 (0.00-0.031); Immature Granulocyte Percent A 0.7 % (0-0.5); Lymphocytes Absolute Auto 1.52 K/mm3 (0.9-3.2); Lymphocytes Percent Auto 21.9 % (18.3-44.2); Mean Corpuscular HGB Conc 31.7 g/dl (32-36); Mean Corpuscular Volume 91.4 fl (80-100); Monocytes Absolute Auto 0.7 K/mm3 (0.1-0.6); Monocytes Percent Auto 10.2 % (2.6-8.5); Platelet Count Result 208 k/mm3 (150-375)
[2023-11-29 07:33] LABS: Alanine Aminotransferase 8 U/L (6-50); Albumin Level 3.6 g/dL (3.5-5.1); Alkaline Phosphatase 80 U/L (38-126); Anion Gap 9 mmol/L (8-16); Aspartate Amino Transferase 19 U/L (17-59); Bilirubin,Total 0.3 mg/dL (0.2-1.3); Blood Urea Nitrogen 56 mg/dL (9-20); Calcium 8.5 mg/dL (8.4-10.2); Carbon Dioxide 26 mmol/L (22-30); Chloride 98 mmol/L (98-107); Estimated CRCL calculation 11 ml/min; Estimated Glomerular Filt Rate 8; Glucose 132 mg/dL (65-110); Magnesium 1.7 mg/dL (1.6-2.3); Phosphorus 3.5 mg/dL (2.5-4.5); Potassium 3.8 mmol/L (3.4-5.0); Sodium 133 mmol/L (137-145)
[2023-11-29 07:43] VITALS: BP 127/71; PULSE 102; RESP 18; TEMP 36.5; O2SAT 96
[2023-11-29] MEDS: levoFLOXacin 500 MG TABLET PO (08:26)
[2023-11-29] MEDS: TAMSULOSIN HCL 0.4 MG CAPSULE PO (08:26)
[2023-11-29] MEDS: FINASTERIDE 5 MG TABLET PO (08:27)
--- NOTE | 2023-11-29 10:31 | PCNWS ---
Weekly nutritional screen. Patient is tolerating current heart healthy diet with adequate intake 75-100%. No weight loss reported. No nutritional needs at this time.
--- NOTE | 2023-11-29 11:51 | PC.NURSE ---
On 11/29/23, the student, Mery Chávez, provided care and completed [facility] documentation on this patient. I have reviewed the student's documentation and agree with the findings.
[2023-11-29 14:00] VITALS: BP 128/80; PULSE 101; RESP 14; TEMP 37.1; O2SAT 95
--- NOTE | 2023-11-29 14:56 | PM.DS ---
DS: Admitting Diagnosis Discharge Date 11/29/2023 Admitting Diagnosis gross hematuria BRYAN DS: Discharge Diagnosis Discharge Diagnosis (1) Gross hematuria: Code(s): R31.0 - Gross hematuria Status: Resolved (2) Urinary tract infection: Code(s): N39.0 - Urinary tract infection, site not specified Status: Acute (3) Benign prostate hyperplasia: Code(s): N40.0 - Benign prostatic hyperplasia without lower urinary tract symptoms Status: Chronic (4) Bilateral hydronephrosis: Code(s): N13.30 - Unspecified hydronephrosis Status: Acute (5) Acute on chronic kidney failure: Code(s): N17.9 - Acute kidney failure, unspecified; N18.9 - Chronic kidney disease, unspecified Status: Acute DS: Summary Hospital Course Hospital Course: This is a 63-year-old male with past medical history of tobacco abuse BPH with chronic bladder outlet obstruction chronic kidney disease bipolar disorder COPD and history of noncompliance presented on 11/13/2023 with acute on chronic renal failure bilateral hydronephrosis and anemia. Creatinine on admission was 18 with BUN greater than 120. Urology was consulted. He also had gross hematuria on admission. He was not a candidate for ureteral stents as his last cystoscopy they were unable to locate his ureteral orifices. He eventually had bilateral percutaneous nephrostomy tube placed on 11/18/2023. His creatinine improved some however was still elevated and Nephrology suggested to start hemodialysis. General surgery was consulted and hemodialysis catheter was placed on 11/25/23. He has been started on dialysis since then. She or time was obtained at dialysis outpatient center and schedule. He tolerated dialysis well. Will continue dialysis Tuesday as scheduled he will follow-up with urology as an outpatient basis for continued workup and stent changes. Could also be internalized down the line. For BPH he has been on Flomax and Proscar. Prostate artery embolization has been discussed with the patient as well. He was also treated for UTI during the hospital stay urine culture grew Klebsiella aerogenes and completed the antibiotic course during the hospital stay. Time Spent with Patient Time attestation: Total time spent providing and/or coordinating discharge services: 35 minutes Exam Narrative: General: Awake, alert, comfortable, no acute distress HEENT: Normocephalic, atraumatic, sclerae anicteric Respiratory: Normal respiratory effort, no accessory muscle use Abdomen: Nondistended, soft, nontender : Rubio cath C2, left & right neph tube with serous, straw-colored output; Skin: Facial skin cancer noted, warm and dry Neurologic: No focal neuro deficits noted Psychiatric: Appropriate mood and affect, judgment and insight intact DS: Data Data Completed and Pending Labs on day of discharge: Labs from last 24 hours 11/29/23 05:58 WBC 7.0 RBC 2.90 L Hgb 8.4 L Hct 26.5 L MCV 91.4 MCH 29.0 MCHC 31.7 L RDW 16.0 H Plt Count 208 MPV 10.0 Immature Gran % (Auto) 0.7 H Neut % (Auto) 58.0 Lymph % (Auto) 21.9 Crawford % (Auto) 10.2 H Eos % (Auto) 8.3 H Baso % (Auto) 0.9 Lymph # (Auto) 1.52 Crawford # (Auto) 0.7 H Eos # (Auto) 0.6 H Baso # (Auto) 0.1 Abs Immat Gran (auto) 0.05 H Absolute Neuts (auto) 4.0 Absolute Nucleated RBC 0.0 Nucleated RBC % 0.0 Sodium 133 L Potassium 3.8 Chloride 98 Carbon Dioxide 26 Anion Gap 9 BUN 56 H D Creatinine 6.70 H Estim Creat Clear Calc 11 Estimated GFR 8 L Glucose 132 H Calcium 8.5 Phosphorus 3.5 Magnesium 1.7 Total Bilirubin 0.3 AST 19 ALT 8 Alkaline Phosphatase 80 Total Protein 7.0 Albumin 3.6 Procedures/Treatments: Procedure Note - Detailed Date of Procedure 11/25/23 Pre-op Diagnosis Acute on chronic renal failure, inadequate venous access Post-op Diagnosis Same Procedure Performed Placement 32 cm tunneled dura flow centr
--- NOTE | 2023-11-29 15:00 | P.PNNP_ITS ---
Progress Note: A&P Assessment and Plan (1) Acute kidney injury: Code(s): N17.9 - Acute kidney failure, unspecified Status: Acute Assessment and Plan: * due to obstructive uropathy/urinary retention * evidence of bilateral hydronephrosis by CT imaging in ER * gutiérrez catheter was in place is, however very little urine output that way. So Gutiérrez catheter is now gone. * s/p bilateral nephrostomy tube placement (on 11/18/23) * u.o. still good, more from left nephrostomy than right. * creatinine still climbs between treatments * outpt dialysis being arranged * discharge okay from the renal standpoint once arranged. * Is still here tomorrow we will do his dialysis (2) Stage 3b chronic kidney disease: Code(s): N18.32 - Chronic kidney disease, stage 3b Status: Chronic Assessment and Plan: * last creatinine was 1.9mg/dl in July 2023 * presumably due to mulitple bouts of BRYAN/ARF in association with obstructive uropathy (3) Bilateral hydronephrosis: Code(s): N13.30 - Unspecified hydronephrosis Status: Acute Assessment and Plan: * as noted on admission imaging * likely secondary to chronic outlet obstruction * unable to have stents in the past as ureteral orifices were not visible during cystoscopy * possible internal stenting as an outpatient * Urology following (4) Metabolic acidosis: Code(s): E87.20 - Acidosis, unspecified Status: Acute Assessment and Plan: * resolved (5) Urinary tract infection: Code(s): N39.0 - Urinary tract infection, site not specified Status: Acute Assessment and Plan: * admission UA highly suggestive * urine culture = Klebsiella * on Levaquin (6) Anemia: Code(s): D64.9 - Anemia, unspecified Status: Acute Assessment and Plan: * hb below 10 * will continue Epogen (7) Benign prostate hyperplasia: Code(s): N40.0 - Benign prostatic hyperplasia without lower urinary tract symptoms Status: Chronic Assessment and Plan: * chronic and long standing issue (as noted by his previous hospitalizations) * continue tamsulosin and finasteride Subjective Date/time seen: 11/29/23 15:00 Interval history: Andrey is sitting up at the side of his bed. No shortness of breath Exam Narrative: General: WD/WN male in NAD Heart: normal S1 and S2; no rub or gallop Lungs: clear bilaterally Abdomen: soft, nontender, nondistended, positive bowel sounds Extremities: no edema or cyanosis Skin: no rash Or subcu nodules Objective Data Vital Signs Vital Signs: Vital Signs - 24 hr 11/28/23 15:30 11/28/23 20:20 11/29/23 05:05 Temperature 98.1 F 97.3 F L 97 F L Pulse Rate 120 H 103 H 88 Respiratory Rate 16 20 20 Blood Pressure 127/79 137/84 131/73 Pulse Oximetry 98 97 96 11/29/23 07:43 11/29/23 14:00 Temperature 97.7 F 98.8 F Pulse Rate 102 H 101 H Respiratory Rate 18 14 Blood Pressure 127/71 128/80 Pulse Oximetry 96 95 Intake/Output Intake/Output: Intake & Output 11/26/23 11/27/23 11/28/23 11/29/23 22:59 23:59 23:59 23:59 Intake Total 4480 540 Output Total 1999 149 Balance 350 -950 Meds/Resul
--- NOTE | 2023-11-29 15:00 | PM.PNNEP ---
Progress Note: A&P Assessment and Plan (1) Acute kidney injury: Code(s): N17.9 - Acute kidney failure, unspecified Status: Acute Assessment and Plan: due to obstructive uropathy/urinary retention evidence of bilateral hydronephrosis by CT imaging in ER gutiérerz catheter was in place is, however very little urine output that way. So Gutiérrez catheter is now gone. s/p bilateral nephrostomy tube placement (on 11/18/23) u.o. still good, more from left nephrostomy than right. creatinine still climbs between treatments outpt dialysis being arranged discharge okay from the renal standpoint once arranged. Is still here tomorrow we will do his dialysis (2) Stage 3b chronic kidney disease: Code(s): N18.32 - Chronic kidney disease, stage 3b Status: Chronic Assessment and Plan: last creatinine was 1.9mg/dl in July 2023 presumably due to mulitple bouts of BRYAN/ARF in association with obstructive uropathy (3) Bilateral hydronephrosis: Code(s): N13.30 - Unspecified hydronephrosis Status: Acute Assessment and Plan: as noted on admission imaging likely secondary to chronic outlet obstruction unable to have stents in the past as ureteral orifices were not visible during cystoscopy possible internal stenting as an outpatient Urology following (4) Metabolic acidosis: Code(s): E87.20 - Acidosis, unspecified Status: Acute Assessment and Plan: resolved (5) Urinary tract infection: Code(s): N39.0 - Urinary tract infection, site not specified Status: Acute Assessment and Plan: admission UA highly suggestive urine culture = Klebsiella on Levaquin (6) Anemia: Code(s): D64.9 - Anemia, unspecified Status: Acute Assessment and Plan: hb below 10 will continue Epogen (7) Benign prostate hyperplasia: Code(s): N40.0 - Benign prostatic hyperplasia without lower urinary tract symptoms Status: Chronic Assessment and Plan: chronic and long standing issue (as noted by his previous hospitalizations) continue tamsulosin and finasteride Subjective Date/time seen: 11/29/23 15:00 Interval history: Andrey is sitting up at the side of his bed. No shortness of breath Exam Narrative: General: WD/WN male in NAD Heart: normal S1 and S2; no rub or gallop Lungs: clear bilaterally Abdomen: soft, nontender, nondistended, positive bowel sounds Extremities: no edema or cyanosis Skin: no rash Or subcu nodules Objective Data Vital Signs Vital Signs: Vital Signs - 24 hr 11/28/23 15:30 11/28/23 20:20 11/29/23 05:05 Temperature 98.1 F 97.3 F L 97 F L Pulse Rate 120 H 103 H 88 Respiratory Rate 16 20 20 Blood Pressure 127/79 137/84 131/73 Pulse Oximetry 98 97 96 11/29/23 07:43 11/29/23 14:00 Temperature 97.7 F 98.8 F Pulse Rate 102 H 101 H Respiratory Rate 18 14 Blood Pressure 127/71 128/80 Pulse Oximetry 96 95 Intake/Output Intake/Output: Intake & Output 11/26/23 11/27/23 11/28/23 11/29/23 22:59 23:59 23:59 23:59 Intake Total 2350 540 Output Total 2000 1490 Balance 350 -950 Meds/Results Medications: Active Medications Generic Name Dose Route Start Last Admin Trade Name Freq PRN Reason Stop Dose Admin Acetaminophen 650 mg 11/13/23 16:16 11/27/23 18:14 Acetaminophen 325 Mg Tablet PO 650 mg Q6H PRN Administration Mild Pain (1-3) or Fever Epoetin Shahzad-epbx 10,000 units 11/28/23 09:00 11/28/23 11:07 Epoetin Shahzad-Epbx 10,000 Units/Ml Vial IV PUSH 10,000 units MOWEFR@09 [facility] Administration Finasteride 5 mg 11/14/23 09:00 11/29/23 08:27 Finasteride 5 Mg Tablet PO 5 mg QAM CHRIS Administration Albumin Human 50 mls @ 999 mls/hr 11/25/23 12:45 Albutein IVPB 12/25/23 12:44 Q10M PRN HYPOTENSION Levofloxacin 500 mg 11/23/23 09:00 11/29/23 08:26 Levofloxacin 500 Mg Tablet PO 500
[2023-11-29 16:11] LABS: SARS-CoV-2 RNA PCR Negative (Negative)
--- NOTE | 2023-11-29 16:37 | PC.NURSE ---
[facility] no [facility]. faxed papers to facility.
== END 2023-11-29 17:45 | DRG 469 ==
LOC: ANHED 11:56 → ANH3MEDSUR 14:51
PROVIDERS: General Practice; Internal Medicine Nephrology; Nurse Practitioner; Physician Assistant; Surgery; Admitting Provider Internal Medicine; Emergency Provider Emergency Medicine; PCP Hospitalist; Visit Provider Internal Medicine
PROC: 0JH63XZ Insertion of Tunneled Vascular Access Device into Chest Subcutaneous Tissue and Fascia, Percutaneous Approach (ICD-10-PCS; CPT 36908; principal; 2023-11-25 12:30)
DX: N17.8 Other acute kidney failure (principal); Z20.822 Contact with and (suspected) exposure to COVID-19; R31.0 Gross hematuria; N40.1 Benign prostatic hyperplasia with lower urinary tract symptoms; N32.0 Bladder-neck obstruction; E87.21 Acute metabolic acidosis; N39.0 Urinary tract infection, site not specified; B96.89 Other specified bacterial agents as the cause of diseases classified elsewhere; N18.32 Chronic kidney disease, stage 3b; D63.1 Anemia in chronic kidney disease; N13.2 Hydronephrosis with renal and ureteral calculous obstruction; E86.0 Dehydration; F31.9 Bipolar disorder, unspecified; J44.9 Chronic obstructive pulmonary disease, unspecified; F17.210 Nicotine dependence, cigarettes, uncomplicated; Z91.199 Patient's noncompliance with other medical treatment and regimen due to unspecified reason; Z85.828 Personal history of other malignant neoplasm of skin
CPT/HCPCS: 36415; 36430; 50432; 71046; 73502; 73560; 74176; 76775; 77001; 80048; 80053; 81001; 81050; 82306; 82570; 82575; 82607; 82728; 82746; 82803; 83540; 83550; 83690; 83735; 83970; 84100; 84145; 84156; 84443; 84484; 85014; 85018; 85025; 85027; 85046; 85610; 85730; 86704; 86706; 86850; 86900; 86901; 86923; 87070; 87075; 87077; 87086; 87186; 87205; 87340; 87635; 93005; 96365; 99285; A9270; C1729; C1750; C1769; G0257; J0690; J0696; J1100; J1644; J2250; J2371; J2405; J2704; J2765; J3010; J7030; J7040; J7050; J7070; P9016; Q5105

== ENCOUNTER 2023-12-08 18:19 | Observation (INO) | payer OTHER, SELFPAY ==
--- NOTE | ~2023-12-08 | CT_ITS ---
EXAMINATION: CT abdomen pelvis wo con DATE: 12/08/2023 19:22 INDICATION: Right flank pain, blood in the nephrostomy tube TECHNIQUE: Computed tomography (CT) of the abdomen and pelvis was performed without intravenous contr ast. The dose-length product (DLP) was 643.65 mGy-cm. Automated exposure control and iterative recons truction technique were employed. COMPARISON: 11/13/2023 FINDINGS: Minimal dependent atelectasis is present in the lung bases. The heart size is normal. Punct ate calcifications in an otherwise normal spleen likely represent healed granulomatous disease. The l iver, pancreas, gallbladder, and adrenal glands are normal. There are bilateral nephrostomy tubes. Th e left-sided hydroureteronephrosis has resolved. There is persistent moderate hydroureteronephrosis o n the right. There appears to be hyperattenuating material in an upper pole calyx of the right kidney . No pathologically enlarged abdominal or pelvic lymph nodes are identified. There is marked enlargem ent of the prostate. No free intraperitoneal gas or evidence of bowel obstruction. The appendix is no rmal. There is moderate distention of the urinary bladder. There is moderate lumbar spondylosis. IMPRESSION: 1. Interval bilateral nephrostomy placement with persistent moderate hydroureteronephrosis on the rig ht and possible blood in an upper pole calyx of the right kidney. Reviewed, dictated and finalized at location F. IMPRESSION: 1. Interval bilateral nephrostomy placement with persistent moderate hydrourete ronephrosis on the right and possible blood in an upper pole calyx of the right kidney.
--- NOTE | ~2023-12-08 | XR_ITS ---
Portable chest x-ray Comparison: 11/25/2023 Clinical History: Acute renal sufficiency Findings: Stable right-sided central venous line. Possible COPD. Lungs are clear. Cardiomediastinal silhouette is stable. Bones and soft tissues are unremarkable. Impression: Clear lungs. Possible COPD. Stable support line. Reviewed, dictated and finalized at location . Impression: Clear lungs. Possible COPD. Stable support line.
[2023-12-08 18:20] VITALS: BP 145/88; PULSE 100; RESP 16; TEMP 36.4; O2SAT 98
--- NOTE | 2023-12-08 18:24 | ED.MALEGU ---
HPI - Male Genitourinary General Chief complaint: Urogenital-Male <Raquel Aquino PA-C - Last Filed: 12/08/23 18:33> Stated complaint: HEMATURIA IN RENAL NEPHROSTOMY <Raquel Aquino PA-C - Last Filed: 12/08/23 18:33> Time Seen by Provider: 12/08/23 18:24 <MART Kingsley Last Filed: 12/08/23 18:33> Focused HPI: Patient is a 63-year-old male, with past medical history of end-stage renal disease on hemodialysis Tuesday, bilateral nephrostomy tubes (placed 11/18/23), who presents the ED via EMS with report of blood in his right-sided nephrostomy tube. Patient reports he 1st noticed the blood last night. Has continued into today. States he noticed some blood after having a bowel movement, but denies straining. He complains of pain and pressure in his right flank/right mid back. Denies significant abdominal pain. Denies nausea, vomiting, fevers. Patient has seen Dr. Verma and Dr. Zuleta. He is not on any blood thinners. Per records, recent admission from 11/13-11/28 for urinary issues. GENERAL: Chronically ill-appearing, well-nourished, and in no acute distress. HEAD: Normocephalic, atraumatic. CHEST: Clear to auscultation. ?No respiratory distress. HEART: Regular rate and rhythm.? ABD: No significant tenderness throughout abdomen. R nephrostomy tube with dark red urine. L nephrostomy tube with yellow urine. NEURO: ?Alert and oriented x3. Patient screened in triage and initial orders placed.? ?Additional care and disposition to be based upon?diagnostic testing and treatment. <MART Kingsley Last Filed: 12/08/23 18:33> Source: patient <MART Kingsley Last Filed: 12/08/23 18:33> Mode of arrival: EMS <MART Kingsley Last Filed: 12/08/23 18:33> Limitations: no limitations <Raquel Aquino PA-C - Last Filed: 12/08/23 18:33> History of Present Illness HPI Narrative: 63-year-old male with history of end-stage renal disease on hemodialysis Tuesday, Tuesday and Tuesday schedule with recent placement of bilateral nephrostomy tubes on 11/18/2023 at our hospital for no urine output through [facility] presents to emergency department for bright red blood in his right nephrostomy tube and bag that started last night. Patient states he believes he has filled approximately 1-1 and half bags of bright red blood. Denies seeing clots. He is reporting some pain around the for ostomy tube site. Denies abdominal pain, fever, nausea or vomiting. He has been going to his hemodialysis appointment without issues. He is not anticoagulated. Per triage note, patient was reporting seen blood after having a bowel movement. He denies melena or hematochezia to me. patient also has a lesion to the left nose that is concerning for cancer. He is adamant that this is not cancerous although he does have a history of cancer to the left side of his face. States he recently cut it while shaving in that his white is bleeding. There is a Band-Aid on it. <MART Johnson Last Filed: 12/09/23 01:21> Related Data Home medications: Home Medications Medication Instructions Recorded Confirmed acetaminophen 500 mg tablet 500 mg PO QID PRN Pain 07/30/23 11/13/23 <MART Kingsley Last Filed: 12/08/23 18:33> Allergies/Adverse reactions: Allergies Allergy/AdvReac Type Severity Reaction Status Date / Time No Known Allergies Allergy Verified 11/25/23 12:12 <MART Kingsley Last Filed: 12/08/23 18:33> Review of Systems Review of Systems: CONSTITUTIONAL: Denies fever, chills, or sweats. EYES: Denies visual changes, redness, or discharge. ENT: Denies rhinorrhea, congestion, sore throat, or otalgia. CARDIOVASCULAR: Denies chest pain, palpitations, or edema. RESPIRATORY: Denies cough or dyspnea. GASTROINTESTINAL: Denies abdominal pain, nausea, vomiting, or diarrhea. GENITOURINARY: See
[2023-12-08 19:19] LABS: Basophils Absolute Auto 0.1 K/mm3 (0.0-0.1); Basophils Percent Auto 0.8 % (0.2-1.2); Eosinophils Absolute Auto 0.6 K/mm3 (0-0.3); Eosinophils Percent Auto 7.7 % (0-4.4); Hematocrit 29.6 % (42.0-52.0); Hemoglobin 9.2 g/dL (14.0-18.0); Immature Granulocyte Absolute 0.03 K/mm3 (0.00-0.031); Immature Granulocyte Percent A 0.4 % (0-0.5); Lymphocytes Absolute Auto 1.76 K/mm3 (0.9-3.2); Lymphocytes Percent Auto 24.5 % (18.3-44.2); Mean Corpuscular HGB Conc 31.1 g/dl (32-36); Mean Corpuscular Hemoglobin 29.1 pg (26-34); Mean Corpuscular Volume 93.7 fl (80-100); Mean Platelet Volume 9.6 fl (7.4-10.4); Monocytes Absolute Auto 0.7 K/mm3 (0.1-0.6); Monocytes Percent Auto 9.7 % (2.6-8.5); Neutrophils Absolute Auto 4.1 K/mm3 (1.3-6.7); Neutrophils Percent Auto 56.9 % (45.5-73.1); Platelet Count Result 200 k/mm3 (150-375); Red Blood Count 3.16 M/mm3 (4.6-6.20); White Blood Count 7.2 K/mm3 (4.5-10.0)
[2023-12-08 19:32] LABS: INR 0.9; Prothrombin Time 13.1 Seconds (11.1-14.7)
[2023-12-08 19:33] LABS: Partial Thromboplastin Time 31.1 Seconds (22.3-36.8)
[2023-12-08 19:38] LABS: Alanine Aminotransferase 15 U/L (6-50); Alkaline Phosphatase 98 U/L (38-126); Anion Gap 5 mmol/L (8-16); Aspartate Amino Transferase 21 U/L (17-59); Bilirubin,Total 0.4 mg/dL (0.2-1.3); Blood Urea Nitrogen 49 mg/dL (9-20); Calcium 9.1 mg/dL (8.4-10.2); Carbon Dioxide 27 mmol/L (22-30); Chloride 102 mmol/L (98-107); Estimated CRCL calculation 12 ml/min; Estimated Glomerular Filt Rate 9; Glucose 120 mg/dL (65-110); Potassium 4.2 mmol/L (3.4-5.0); Sodium 134 mmol/L (137-145)
[2023-12-08 20:58] LABS: Glucose Urine UA 1+ mg/dL (Negative); Protein Urine 3+ mg/dL (Negative); pH Urine 8.5 (5.0-9.0)
[2023-12-08 20:59] LABS: Add Urine Microscopic? YES; Bilirubin Urine Negative (Negative); Blood Urine 3+ (Negative); Ketones Urine Negative (Negative); Leukocyte Esterase Ur Trace LEU/UL (Negative); Nitrate Urine Negative (Negative); Urobilinogen Urine 0.2 mg/dL (<2.0)
[2023-12-08 21:00] LABS: WBC Urine 21-50 /hpf (0-3)
[2023-12-08 21:01] LABS: Appearance Urine Cloudy (Clear); Color Urine Yellow (Yellow)
[2023-12-08 21:03] LABS: Bacteria Urine 4+ /hpf
[2023-12-09] VITALS (17 sets, daily range): BP systolic 118–162; BP diastolic 72–96; PULSE 78–114; RESP 12–20; TEMP 36.3–37; O2SAT 95–100; BMI 29.7
--- NOTE | 2023-12-09 01:05 | PM.IMHP ---
H&P: HPI History of Present Illness Date/Time: 12/09/23 01:05 Chief Complaint: Hematuria Narrative: this is a 63-year-old male with past medical history significant for a skin cancer, status post graft, urinary outlet obstruction, status post bilateral nephrostomies, chronic kidney disease, COPD, tobacco dependence. Patient presents to the emergency room due to bloody discharge present in his U 1 of his nephrostomy bags. It was noted also patient wearing a Band-Aid on his face noted to have ulcer on the nose. Patient has been admitted for further evaluation management and treatment. EXAMINATION: CT abdomen pelvis wo con DATE: 12/08/2023 19:22 INDICATION: Right flank pain, blood in the nephrostomy tube TECHNIQUE: Computed tomography (CT) of the abdomen and pelvis was performed without intravenous contrast. The dose-length product (DLP) was 643.65 mGy-cm. Automated exposure control and iterative reconstruction technique were employed. COMPARISON: 11/13/2023 FINDINGS: Minimal dependent atelectasis is present in the lung bases. The heart size is normal. Punctate calcifications in an otherwise normal spleen likely represent healed granulomatous disease. The liver, pancreas, gallbladder, and adrenal glands are normal. There are bilateral nephrostomy tubes. The left-sided hydroureteronephrosis has resolved. There is persistent moderate hydroureteronephrosis on the right. There appears to be hyperattenuating material in an upper pole calyx of the right kidney. No pathologically enlarged abdominal or pelvic lymph nodes are identified. There is marked enlargement of the prostate. No free intraperitoneal gas or evidence of bowel obstruction. The appendix is normal. There is moderate distention of the urinary bladder. There is moderate lumbar spondylosis. IMPRESSION: 1. Interval bilateral nephrostomy placement with persistent moderate hydroureteronephrosis on the right and possible blood in an upper pole calyx of the right kidney. Review of Systems Review of Systems: Blood in nephrostomy bag [facility] Past Medical History Medical History Benign prostate hyperplasia Bipolar disorder Chronic kidney disease COPD with emphysema Skin cancer Tobacco dependence Surgical History Surgical History History of tonsillectomy Status post surgical removal of malignant neoplasm of skin From his face and now has a growth on his nose. Family History Family History Other Family history non-contributory Social History Social History Social History: Surrogate medical decision maker: Ari Grion, daughter. Code status: Full code. Smoking packs per day: 1 Smoking cigarettes per day: 20.0 Years smoked: 49 Smoking pack-years: 49.00 Smoking status: Current every day smoker Tobacco type: cigarettes Second hand tobacco smoke exposure: Yes Alcohol intake: never Substance use: never Substance use type: does not use Do You Feel Safe in your Home?: Yes Lack of Transportation: YES Lack of Food: Often True Current Housing: I Have Housing Concerned About Future Housing: YES Difficulty Paying Gas/Electric Bills: YES Difficulty Paying for Meds: YES Currently Unemployed: YES Education: High School Diploma/GED Difficulty w/ Childcare or Family Care: No Additional living arrangements comments: Lives in [place]. Additional occupation/education comments: Works at a [employer]. Spiritual care concerns: No Meds Home Medications and Allergies Home Medications Medication Instructions Recorded Confirmed Type finasteride 5 mg tablet (Proscar) 5 mg PO QAM #30 tabs 03/19/23 11/13/23 Rx acetaminophen 500 mg tablet 500 mg PO QID PRN Pain 07/30/23 11/13/23 History polyet
[2023-12-09] MEDS: ACETAMINOPHEN 325 MG TABLET 650 MG PO (01:39)
[2023-12-09 02:00] LABS: Magnesium 1.9 mg/dL (1.6-2.3); Phosphorus 6.8 mg/dL (2.5-4.5)
--- NOTE | 2023-12-09 02:44 | ADMGEN ---
This patient, Andrey Giron, was admitted to Medical Room 248-. Patient/family oriented to hospital policies and general routines including ID bracelet, bed and alarms, visiting hours, pain management, procedures, bathroom and other care routines, personal items, smoking policy, room service/diet, and visiting hours. Information on how to activate the Rapid Response Team has been discussed. Patient/Family are encouraged to report perceived risks to care and to ask questions if they do not understand what they are told or what they should do.
[2023-12-09 05:03] LABS: MRSA (PCR) NOT DETECTED (NOT DETECTE)
[2023-12-09 08:23] LABS: Anion Gap 8 mmol/L (8-16); Blood Urea Nitrogen 58 mg/dL (9-20); Calcium 9.1 mg/dL (8.4-10.2); Carbon Dioxide 25 mmol/L (22-30); Chloride 104 mmol/L (98-107); Estimated CRCL calculation 10 ml/min; Estimated Glomerular Filt Rate 8; Glucose 95 mg/dL (65-110); Potassium 4.3 mmol/L (3.4-5.0); Sodium 137 mmol/L (137-145)
[2023-12-09] MEDS: TAMSULOSIN HCL 0.4 MG CAPSULE PO (08:42)
[2023-12-09] MEDS: FINASTERIDE 5 MG TABLET PO (08:42)
--- NOTE | 2023-12-09 09:36 | WPDURCON ---
Assessment and Plan Assessment and plan (1) Complication of nephrostomy: Code(s): N99.528 - Other complication of incontinent external stoma of urinary tract Status: Acute (2) Gross hematuria: Code(s): R31.0 - Gross hematuria Status: Acute (3) Acute on chronic kidney failure: Code(s): N17.9 - Acute kidney failure, unspecified; N18.9 - Chronic kidney disease, unspecified Status: Acute (4) Personal history of noncompliance with medical treatment and regimen: Code(s): Z91.199 - Patient's noncompliance with other medical treatment and regimen due to unspecified reason Status: Acute Assessment and Plan: Intermittent hematuria with nephrostomy tubes is to be expected in the problematic in this the tubes start to clot/quit draining.Currently, both nephrostomy tubes are draining well and no intervention is indicated at this time. Long-term, ongoing urinary drainage will be required as long as he continues to make urine. bilateral nephrostomy tubes could be internalized the stents but that would have to be done in an antegrade fashion as identification of ureteral orifices is possible due to his BPH. Before recommending that, however, patient needs to demonstrate a period compliance with as ureteral stent incrustation could pose significant problems Urology Consult Note HPI Date Seen: 12/09/23 Requesting Physician: Randal Fung MD Primary Care Provider: Ruben Gonzalez MD Consult Narrative Narrative: Andrey Giron is a 63 year old male who has been a challenge to manage from a urological standpoint. He has known marked prostatic enlargement causing incomplete bladder emptying leading to bilateral hydronephrosis. He has been very noncompliant with follow-up in the past. He recently presented to the emergency department [facility] with urinary retention, bilateral hydronephrosis and acute kidney injury. His renal function has failed to improve with conservative management and eventually with placement of bilateral nephrostomy tubes. He has received hemodialysis on 3 occasions. He is admitted through the emergency department bloody urine and his right nephrostomy to this occurred without a dental follicle injury risk. There has been no clotting and continues to be good urine output through both nephrostomy tubes. CT imaging on admission shows both tubes to be in appropriate position. There is incomplete resolution of right hydronephrosis. Patient denies flank or abdominal pain. Review of Systems Cardiovascular: Cardiovascular: Denies chest pain, Denies lightheadedness, Denies palpitations and Denies dyspnea Respiratory: Respiratory: Denies dyspnea Gastrointestinal: Gastrointestinal: Denies diarrhea, Denies nausea and Denies vomiting Genitourinary: Genitourinary: Denies hematuria and Denies dysuria Endocrine: Endocrine: Denies palpitations [facility] Past Medical History Medical History Benign prostate hyperplasia Bipolar disorder Chronic kidney disease COPD with emphysema Skin cancer Tobacco dependence Surgical History Surgical History History of tonsillectomy Status post surgical removal of malignant neoplasm of skin From his face and now has a growth on his nose. Family History Family History Other Family history non-contributory Social History Social History Social History: Surrogate medical decision maker: Ari Giron, daughter. Code status: Full code. Smoking packs per day: 1 Smoking cigarettes per day: 20.0 Years smoked: 49 Smoking pack-years: 49.00 Smoking status: Current every day smoker Tobacco type: cigarettes Second hand tobacco smoke exposure: Yes Alcohol intake: former Substance use:
[2023-12-09 11:51] LABS: Basophils Absolute Auto 0.1 K/mm3 (0.0-0.1); Eosinophils Absolute Auto 0.6 K/mm3 (0-0.3); Hematocrit 28.7 % (42.0-52.0); Hemoglobin 8.6 g/dL (14.0-18.0); Immature Granulocyte Absolute 0.02 K/mm3 (0.00-0.031); Immature Granulocyte Percent A 0.3 % (0-0.5); Lymphocytes Absolute Auto 1.82 K/mm3 (0.9-3.2); Lymphocytes Percent Auto 26.4 % (18.3-44.2); Mean Corpuscular Hemoglobin 29.1 pg (26-34); Mean Platelet Volume 9.7 fl (7.4-10.4); Monocytes Absolute Auto 0.6 K/mm3 (0.1-0.6); Monocytes Percent Auto 8.4 % (2.6-8.5); Neutrophils Absolute Auto 3.8 K/mm3 (1.3-6.7); Neutrophils Percent Auto 54.9 % (45.5-73.1); Platelet Count Result 207 k/mm3 (150-375); Red Blood Count 2.96 M/mm3 (4.6-6.20); Red Cell Distribution Width 17.1 % (11.5-14.5); White Blood Count 6.9 K/mm3 (4.5-10.0)
--- NOTE | 2023-12-09 13:26 | PM.IMPN ---
Progress Note: A&P Assessment and Plan (1) Gross hematuria: Code(s): R31.0 - Gross hematuria Status: Acute Assessment and Plan: CTA showed interval bilateral nephrostomy placement with persistent moderate hydroureteronephrosis on the right and possible blood in an upper pole calyx of the right kidney. general surgery consulted nephrology consulted urology consulted urinalysis positive for UTI continue Rocephin pending culture (2) Stage 3b chronic kidney disease: Code(s): N18.32 - Chronic kidney disease, stage 3b Status: Chronic Assessment and Plan: Nephrology consulted CXR ordered creatinine 6.90, eGRF 8 renally dose meds, avoid nephrotoxic meds continue to trend and monitor (3) Skin cancer: Code(s): C44.90 - Unspecified malignant neoplasm of skin, unspecified Status: Acute Assessment and Plan: status post excision and grafting ENT follow up outpatient (4) Hydronephrosis: Code(s): N13.30 - Unspecified hydronephrosis Status: Acute Assessment and Plan: status post bilateral nephrostomy urology consulted (5) COPD with emphysema: Code(s): J43.9 - Emphysema, unspecified Status: Chronic Assessment and Plan: on room air controlled Subjective Date/time seen: 12/09/23 13:26 Interval history: Patient slightly grouchy this am, but in no distress. Reports minor discomfort. Treating for UTI and awaiting consults and recs by specialists. CXR ordered by nephrology. Continue to closely monitor kidney function. Review of Systems Review of Systems: All systems reviewed & are unremarkable except as noted in HPI and below Exam Narrative: GENERAL: Well-appearing, well-nourished, and in no acute distress. HEAD: Normocephalic, atraumatic. EYES: PERRLA and EOMI. ENT: Mucous membranes moist. NECK: Supple. CHEST: Lungs clear to auscultation. No respiratory distress. HEART: RRR. No murmur heard. Normal peripheral pulses. ABDOMEN: Soft, nontender, nondistended, normal active bowel sounds. Bilateral nephrostomy tubes in place without surrounding erythema, edema or purulent drainage. Left nephrostomy tube draining clear urine. Right nephrostomy tube draining opaque red blood. EXTREMITIES: Normal range of motion. No edema. SKIN: Warm, dry, no rash. Minor healing lesion on left side of nose, bandage clean, dry and intact. NEURO: No focal deficits. Alert and oriented x3 Objective Data Vital Signs Vital Signs: Vital Signs - 24 hr 12/08/23 18:20 12/09/23 02:20 12/09/23 02:52 Temperature 97.6 F Pulse Rate 100 104 H Respiratory Rate 16 15 Blood Pressure 145/88 H 136/90 Pulse Oximetry 98 95 Oxygen Delivery Room Air Room Air 12/09/23 03:23 12/09/23 08:42 Temperature 97.9 F Pulse Rate 99 Respiratory Rate 20 20 Blood Pressure 158/96 H Pulse Oximetry 100 100 Oxygen Delivery Room Air Intake/Output Intake/Output: Intake & Output 12/06/23 12/07/23 12/08/23 12/09/23 23:59 23:59 23:59 23:59 Intake Total 770 Output Total 690 Balance 80 Meds/Results Medications: Active Medications Generic Name Dose Route Start Last Admin Trade Name Freq PRN Reason Stop Dose Admin Acetaminophen 650 mg 12/09/23 01:10 12/09/23 01:39 Acetaminophen 325 Mg Tablet PO 650 mg Q4H PRN Administration Mild Pain (1-3) or Fever Epoetin Shahzad-epbx 10,000 units 12/09/23 20:29 Epoetin Shahzad-Epbx 10,000 Units/Ml Vial IV PUSH 12/09/23 20:30 ONCE ONE Finasteride 5 mg 12/09/23 09:00 12/09/23 08:42 Finasteride 5 Mg Tablet PO 5 mg QAM CHRIS Administration Ceftriaxone Sodium 1 gm in 50 mls @ 100 mls/hr 12/10/23 01:00 Rocephin 1 Gm/Ns 50 Ml IVPB Q24H CHRIS Albumin Human 50 mls @ 999 mls/hr 12/09/23 08:28 Albutein IVPB 01/08/24 08:27 Q10M PRN HYPOTENSION Nicotine 1 patch 12/09/23 09:00 12/09/23 08:42 Nicotine (*Pbkc) 21 Mg Patch TO
--- NOTE | 2023-12-09 15:08 | PC.NURSE ---
Report called to Derrick TELLESlaundry washer nurse.
--- NOTE | 2023-12-09 15:25 | PC.NURSE ---
To dialysis via bed.
--- NOTE | 2023-12-09 15:55 | PM.PNNEP ---
Progress Note: A&P Assessment and Plan (1) Acute kidney injury: Code(s): N17.9 - Acute kidney failure, unspecified Status: Acute (2) Stage 3b chronic kidney disease: Code(s): N18.32 - Chronic kidney disease, stage 3b Status: Chronic (3) Gross hematuria: Code(s): R31.0 - Gross hematuria Status: Acute Plan HD today continue M/W/F dialysis schedule FULL CONSULT to follow. Subjective Date/time seen: 12/09/23 15:55 Interval history: Follow-up for acute kidney injury/acute renal failure on chronic kidney disease and need for SCALLOP SHUCKER/dialysis Tolerating dialysis treatment at the time of my visit (3:45PM); no apparent distress noted at this time; feels reasonably well; still noted to have hematuria in nephrostomy drainage back but evidence of clots present; no other events overnight or earlier this AM. Exam Narrative: General: WD/WN male in NAD Heart: normal S1 and S2; no rub Lungs: clear to auscultation Abdomen: soft, nontender, nondistended, positive bowel sounds Extremities: no cyanosis or clubbing; no edema Skin: warm and dry Objective Data Vital Signs Vital Signs: Vital Signs Temp Pulse Resp BP Pulse Ox O2 Del Method 12/09/23 14:51 98.3 F 79 12 144/91 H 99 12/09/23 08:42 20 100 Room Air 12/09/23 03:23 97.9 F 99 20 158/96 H 100 12/09/23 02:52 Room Air 12/09/23 02:20 104 H 15 136/90 95 12/08/23 18:20 97.6 F 100 16 145/88 H 98 Room Air Intake/Output Intake/Output: Intake & Output 12/06/23 12/07/23 12/08/23 12/09/23 23:59 23:59 23:59 23:59 Intake Total 770 Output Total 1090 Balance -320 Meds/Results Medications: Active Medications Generic Name Dose Route Start Last Admin Trade Name Freq PRN Reason Stop Dose Admin Acetaminophen 650 mg 12/09/23 01:10 12/09/23 01:39 Acetaminophen 325 Mg Tablet PO 650 mg Q4H PRN Administration Mild Pain (1-3) or Fever Epoetin Shahzad-epbx 10,000 units 12/09/23 20:29 Epoetin Shahzad-Epbx 10,000 Units/Ml Vial IV PUSH 12/09/23 20:30 ONCE ONE Finasteride 5 mg 12/09/23 09:00 12/09/23 08:42 Finasteride 5 Mg Tablet PO 5 mg QAM CHRIS Administration Ceftriaxone Sodium 1 gm in 50 mls @ 100 mls/hr 12/10/23 01:00 Rocephin 1 Gm/Ns 50 Ml IVPB Q24H CHRIS Albumin Human 50 mls @ 999 mls/hr 12/09/23 08:28 Albutein IVPB 01/08/24 08:27 Q10M PRN HYPOTENSION Nicotine 1 patch 12/09/23 09:00 12/09/23 08:42 Nicotine (*Gregor) 21 Mg Patch TOPICAL Not Given DAILY CHRIS Polyethylene Glycol 17 gm 12/09/23 07:14 Polyethylene Glycol 3350 17 Gm Powd.Pack PO QAM PRN Constipation Tamsulosin HCl 0.4 mg 12/09/23 09:00 12/09/23 08:42 Tamsulosin Hcl 0.4 Mg Capsule PO 0.4 mg QAM CHRIS Administration Radiology Results: ITS Impressions Abdomen/Pelvis CT 12/08/23 19:48 IMPRESSION: 1. Interval bilateral nephrostomy placement with persistent moderate hydroureteronephrosis on the right and possible blood in an upper pole calyx of the right kidney. Chest X-Ray 12/09/23 14:08 Impression: Clear lungs. Possible COPD. Stable support line. Labs Labs: Laboratory Tests 12/09/23 05:38 12/09/23 05:38 [facility] Follow-up Billing Additional Procedures Additional Procedure: [id number] Hemodialysis
[2023-12-09] MEDS: EPOETIN ALFA-EPBX 10,000 UNITS/ML VIAL 10000 UNITS IV PUSH (17:02)
[2023-12-10 05:08] VITALS: BP 134/86; PULSE 91; RESP 20; TEMP 36.6; O2SAT 97
[2023-12-10 07:39] VITALS: O2SAT 92
--- NOTE | 2023-12-10 07:46 | P.PNIM_ITS ---
Progress Note: A&P Assessment and Plan (1) Gross hematuria: Code(s): R31.0 - Gross hematuria Status: Acute (2) Stage 3b chronic kidney disease: Code(s): N18.32 - Chronic kidney disease, stage 3b Status: Chronic (3) Skin cancer: Code(s): C44.90 - Unspecified malignant neoplasm of skin, unspecified Status: Acute (4) Hydronephrosis: Code(s): N13.30 - Unspecified hydronephrosis Status: Acute (5) COPD with emphysema: Code(s): J43.9 - Emphysema, unspecified Status: Chronic Plan Gross Hematuria/Hydronephrosis: * ?CTA showed interval bilateral nephrostomy placement with persistent moderate hydroureteronephrosis on the right and possible blood in an upper pole calyx of the right kidney. * ?general surgery consulted * ?nephrology consulted * ?urology consulted * ?continue Rocephin pending culture * ?status post bilateral nephrostomy Acute on chronic renal failure/ESRD * bilateral nephrostomy * on dialysis Cr. 6.9 * albumin/epo * nephrology consulted * Avoid nephrotoxic drugs. * Monitor antihypertensive drug therapy. * Avoid NSAIDs. * Routine CMP monitoring GFR. * Monitor electrolytes especially potassium. * Antibiotic doses depending on creatinine clearance. * Routine follow-up with Nephrology as an outpatient. COPD: * Stable * nicotine patch * smoking cessation Neoplasm malignant * status post excision and grafting * ENT follow up outpatient BPH: * resumed Flomax/Proscar * bilateral nephrostomy * urology consulted Code status: Full code per patient DVT prophylaxis: scd's Stress ulcer prophylaxis: Protonix 40 daily PT/OT notes: Ambulatory Disposition: Time Spent With Patient Time with patient: 15 - 25 minutes Subjective Date/time seen: 12/10/23 07:46 Interval history: Medical Record Narrative: ?this is a 63-year-old male with past medical history significant for a skin cancer, status post graft, urinary outlet obstruction, status post bilateral nephrostomies, chronic kidney disease, COPD, tobacco dependence.? Patient presents to the emergency room due to bloody discharge present in his U 1 of his nephrostomy bags.? It was noted also patient wearing a Band-Aid on his? face noted to have ulcer on the nose.? Patient has been admitted for further evaluation management and treatment. 3/22: Medical Record Patient slightly grouchy this am, but in no distress. Reports minor discomfort. Treating for UTI and awaiting consults and recs by specialists. CXR ordered by nephrology. Continue to closely monitor kidney function. 12/09: Review of Systems Review of Systems: Blood in nephrostomy bag All systems reviewed & are unremarkable except as noted in HPI and below Exam Narrative: Physical Exam: * GENERAL: Alert and oriented x 3. No acute distress. Well-nourished. * EYES: EOMI. No scleral icterus. PERRLA. * HEENT: Moist mucous membranes. No cervical lymphadenopathy. * LUNGS: Clear to auscultation bilaterally. No accessory muscle use. * CARDIOVASCULAR: Regular rate and rhythm. No murmur. No JVD. S1-S2 * ABDOMEN: Soft, mild tenderness and non-distended. No palpable masses. * EXTREMITIES: No edema. Non-tender * SKIN: No rashes or lesions. Skin warm, dry. * NEUROLOGIC: No focal neurological deficits. CN II-XII grossly intact * PSYCHIATRIC: Appropriate mood and affect. Good judgement and insight. No
--- NOTE | 2023-12-10 07:46 | PM.IMPN ---
Progress Note: A&P Assessment and Plan (1) Gross hematuria: Code(s): R31.0 - Gross hematuria Status: Acute (2) Stage 3b chronic kidney disease: Code(s): N18.32 - Chronic kidney disease, stage 3b Status: Chronic (3) Skin cancer: Code(s): C44.90 - Unspecified malignant neoplasm of skin, unspecified Status: Acute (4) Hydronephrosis: Code(s): N13.30 - Unspecified hydronephrosis Status: Acute (5) COPD with emphysema: Code(s): J43.9 - Emphysema, unspecified Status: Chronic Plan Gross Hematuria/Hydronephrosis: ?CTA showed interval bilateral nephrostomy placement with persistent moderate hydroureteronephrosis on the right and possible blood in an upper pole calyx of the right kidney. ?general surgery consulted ?nephrology consulted ?urology consulted ?continue Rocephin pending culture ?status post bilateral nephrostomy Acute on chronic renal failure/ESRD bilateral nephrostomy on dialysis Cr. 6.9 albumin/epo nephrology consulted Avoid nephrotoxic drugs. Monitor antihypertensive drug therapy. Avoid NSAIDs. Routine CMP monitoring GFR. Monitor electrolytes especially potassium. Antibiotic doses depending on creatinine clearance. Routine follow-up with Nephrology as an outpatient. COPD: Stable nicotine patch smoking cessation Neoplasm malignant status post excision and grafting ENT follow up outpatient BPH: resumed Flomax/Proscar bilateral nephrostomy urology consulted Code status: Full code per patient DVT prophylaxis: scd's Stress ulcer prophylaxis: Protonix 40 daily PT/OT notes: Ambulatory Disposition: Time Spent With Patient Time with patient: 15 - 25 minutes Subjective Date/time seen: 12/10/23 07:46 Interval history: Medical Record Narrative: ?this is a 63-year-old male with past medical history significant for a skin cancer, status post graft, urinary outlet obstruction, status post bilateral nephrostomies, chronic kidney disease, COPD, tobacco dependence.? Patient presents to the emergency room due to bloody discharge present in his U 1 of his nephrostomy bags.? It was noted also patient wearing a Band-Aid on his? face noted to have ulcer on the nose.? Patient has been admitted for further evaluation management and treatment. 12/08: Medical Record Patient slightly grouchy this am, but in no distress. Reports minor discomfort. Treating for UTI and awaiting consults and recs by specialists. CXR ordered by nephrology. Continue to closely monitor kidney function. 12/09: Review of Systems Review of Systems: Blood in nephrostomy bag All systems reviewed & are unremarkable except as noted in HPI and below Exam Narrative: Physical Exam: GENERAL: Alert and oriented x 3. No acute distress. Well-nourished. EYES: EOMI. No scleral icterus. PERRLA. HEENT: Moist mucous membranes. No cervical lymphadenopathy. LUNGS: Clear to auscultation bilaterally. No accessory muscle use. CARDIOVASCULAR: Regular rate and rhythm. No murmur. No JVD. S1-S2 ABDOMEN: Soft, mild tenderness and non-distended. No palpable masses. EXTREMITIES: No edema. Non-tender SKIN: No rashes or lesions. Skin warm, dry. NEUROLOGIC: No focal neurological deficits. CN II-XII grossly intact PSYCHIATRIC: Appropriate mood and affect. Good judgement and insight. No visual or auditory hallucinations. No suicidal or homicidal ideation. Objective Data Vital Signs Vital Signs: Vital Signs - 24 hr 12/09/23 08:42 12/09/23 14:51 12/09/23 15:34 Temperature 98.3 F 97.3 F L Pulse Rate 79 91 Respiratory Rate 20 12 18 Blood Pressure 144/91 H 162/92 H Pulse Oximetry 100 99 Oxygen Delivery Room Air 12/09/23 15:46 12/09/23 16:00 12/09/23 16:15 Temperature Pulse Rate 78 102 H 101 H Respiratory Rate Blood Pressure 156/92 H 160/94 H 136/87 Pulse Oximetry Oxygen Delivery
[2023-12-10] MEDS: FINASTERIDE 5 MG TABLET PO (09:27)
[2023-12-10] MEDS: TAMSULOSIN HCL 0.4 MG CAPSULE PO (09:27)
[2023-12-10] MEDS: PANTOPRAZOLE 40 MG TABLET PO (09:27)
--- NOTE | 2023-12-10 12:30 | PM.CNNEP ---
Assessment and Plan Assessment and plan (1) Acute kidney injury: Code(s): N17.9 - Acute kidney failure, unspecified Status: Acute Assessment and Plan: due to recurrent obstructive uropathy/urinary retention acceptable urine output as well as electrolyte control issues with acid-base status and clearance of uremic toxins noted on last hospitalization 24hr urine collection on last hospital stay confirmed poor creatinine clearance HD yesterday and continue M/W/F dialysis schedule follow repeat labs and UOP for the potential of renal recovery (2) Stage 3b chronic kidney disease: Code(s): N18.32 - Chronic kidney disease, stage 3b Status: Chronic Assessment and Plan: last creatinine was 1.9mg/dl in July 2023 will try to obtain records from [facility] given recent admission there presumably due to mulitple bouts of BRYAN/ARF in association with obstructive uropathy (3) Gross hematuria: Code(s): R31.0 - Gross hematuria Status: Acute Assessment and Plan: as noted on admission Urology recommendations noted no further intervention needed (4) Urinary tract infection: Code(s): N39.0 - Urinary tract infection, site not specified Status: Acute Assessment and Plan: admission UA highly suggestive follow-up on urine culture on antibiotics I will continue follow patient with you while he remains hospitalized make further recommendations as deemed necessary. Thank you for allowing me to participate in care of this patient. History of Present Illness Reason for Consult Consult date: 12/10/23 Reason for consult: acute renal failure (on chronic kidney disease requiring ANESTHESIOLOGY PHYSICIAN/dialysis) Chief Complaint Chief complaint: HEMATURIA IN RENAL NEPHROSTOMY History of Present Illness Narrative: The patient is a 63-year-old male with a past medical history as outlined below who presented to [facility] Emergency room for further evaluation of hematuria. The patient is currently residing in nursing facility for ongoing rehabilitation. It was noted by the patient that he had blood in his right nephrostomy tube drainage bag the evening before presentation. Initially, he did not think much of it but then on the day of admission this issue seemed to persist. He does complain of some pressure sensation in his right flank/ right midback but as already mentioned, he does have bilateral nephrostomy tubes due to his known history of structured uropathy. He gave no other systemic symptoms with regard to nausea, vomiting, fevers, chills, shortness of breath or chest pain. Given the persistence of the hematuria and his right nephrostomy tube drainage bag, his nursing facility called EMS and he was subsequently transferred to the emergency room for further assessment. Workup and evaluation emergency room demonstrated the patient to be hemodynamically stable and in no apparent distress. Routine blood test demonstrated CBC with no evidence of leukocytosis and a stable hemoglobin hematocrit in comparison to recent testing. His chemistry was significant for an elevated BUN and creatinine consistent with his renal dysfunction and need for renal replacement therapy / dialysis. His UA demonstrated gross hematuria and significant white blood cell count and 4+ bacteriuria. A CT scan of his abdomen pelvis demonstrated bilateral nephrostomy tube placement with persistent moderate hydroureteronephrosis on the right with possible blood and upper pole calyx of the right kidney. Cultures were obtained with regard to his urine and he was empirically started on antibiotic therapy with subsequent admission to the hospital with urology consultation. Since his admission, his hemoglobin and hematocrit have remained stable but he continues to have persistent hematuria in his right nephrostomy tube drainage bag. he received dialysis yesterday to maintain his Tuesday, Tuesday,
[2023-12-10 13:29] VITALS: BP 131/74; PULSE 105; RESP 16; TEMP 36.4; O2SAT 97
[2023-12-10 14:25] LABS: Basophils Absolute Auto 0.1 K/mm3 (0.0-0.1); Basophils Percent Auto 1.1 % (0.2-1.2); Eosinophils Absolute Auto 0.5 K/mm3 (0-0.3); Eosinophils Percent Auto 8.3 % (0-4.4); Hematocrit 28.3 % (42.0-52.0); Hemoglobin 8.7 g/dL (14.0-18.0); Immature Granulocyte Absolute 0.02 K/mm3 (0.00-0.031); Immature Granulocyte Percent A 0.4 % (0-0.5); Lymphocytes Absolute Auto 1.39 K/mm3 (0.9-3.2); Lymphocytes Percent Auto 25.5 % (18.3-44.2); Mean Corpuscular HGB Conc 30.7 g/dl (32-36); Mean Corpuscular Hemoglobin 29.2 pg (26-34); Mean Platelet Volume 9.6 fl (7.4-10.4); Monocytes Absolute Auto 0.4 K/mm3 (0.1-0.6); Monocytes Percent Auto 7.9 % (2.6-8.5); Neutrophils Absolute Auto 3.1 K/mm3 (1.3-6.7); Neutrophils Percent Auto 56.8 % (45.5-73.1); Platelet Count Result 196 k/mm3 (150-375); Red Blood Count 2.98 M/mm3 (4.6-6.20); White Blood Count 5.5 K/mm3 (4.5-10.0)
[2023-12-10 14:49] LABS: Albumin Level 3.7 g/dL (3.5-5.1); Anion Gap 4 mmol/L (8-16); Blood Urea Nitrogen 38 mg/dL (9-20); Carbon Dioxide 27 mmol/L (22-30); Chloride 106 mmol/L (98-107); Estimated CRCL calculation 12 ml/min; Estimated Glomerular Filt Rate 11; Glucose 128 mg/dL (65-110); Phosphorus 4.7 mg/dL (2.5-4.5); Potassium 4.2 mmol/L (3.4-5.0); Sodium 137 mmol/L (137-145)
--- NOTE | 2023-12-10 15:25 | PM.DS ---
DS: Admitting Diagnosis Discharge Date 12/10/2023 Admitting Diagnosis Hematuria DS: Discharge Diagnosis Discharge Diagnosis (1) Gross hematuria: Code(s): R31.0 - Gross hematuria Status: Acute Assessment and Plan: Post nephrostomy bilateral placed No clot noted Urology consulted HGB stable (2) Stage 3b chronic kidney disease: Code(s): N18.32 - Chronic kidney disease, stage 3b Status: Chronic Assessment and Plan: Dialysis M, W, F Epo Albumin Avoid nephrotoxic drugs Follow-up with Nephrology O/P (3) Skin cancer: Code(s): C44.90 - Unspecified malignant neoplasm of skin, unspecified Status: Acute Assessment and Plan: status post excision and grafting (4) Hydronephrosis: Code(s): N13.30 - Unspecified hydronephrosis Status: Acute Assessment and Plan: Post nephrostomy bilateral placed Chonic Normal WBC No clots noted/ Urine present and draining adequatley Urology consulted HGB stable (5) COPD with emphysema: Code(s): J43.9 - Emphysema, unspecified Status: Chronic Assessment and Plan: Stable Plan Disposition: Patient discharged back to assisted living facility will have dialysis Tuesday12/12/2023 as scheduled. DS: Summary Hospital Course Hospital Course: Medical Record: ?Hematuria Narrative: ?this is a 63-year-old male with past medical history significant for a skin cancer, status post graft, urinary outlet obstruction, status post bilateral nephrostomies, chronic kidney disease, COPD, tobacco dependence.? Patient presents to the emergency room due to bloody discharge present in his U 1 of his nephrostomy bags.? It was noted also patient wearing a Band-Aid on his? face noted to have ulcer on the nose.? Patient has been admitted for further evaluation management and treatment. Urology consult: Medical Record Andrey Giron is a 63 year old male who has been a challenge to manage from a urological standpoint.? He has known marked prostatic enlargement? causing incomplete bladder emptying leading to bilateral hydronephrosis.? He has been very noncompliant with follow-up in the past.? He recently presented to the emergency department [facility] with urinary retention, bilateral hydronephrosis and acute kidney injury.? His renal function has failed to improve with conservative management and eventually with placement of bilateral nephrostomy tubes.? He has received hemodialysis on 3 occasions.? He is admitted through the emergency department bloody urine and his right nephrostomy to this occurred without a dental follicle injury risk.? There has been no clotting and continues to be good urine output through both nephrostomy tubes.? CT imaging on admission shows both tubes to be in appropriate position.? There is incomplete resolution of right hydronephrosis.? Patient denies flank or abdominal pain 12/09: DISCHARGED Patient with no complaints tinged colored urine in the RT nephrostomy with no clots. Good urinary output to bilateral nephrostomy. Patient had dialysis yesterday and labs are stable. Patient to be discharged to assisted living facility and will have dialysis on Tuesday. Urine culture negative and BC with NGTD. Status at Discharge Functional status at discharge: independent ambulation Overall status at discharge: patient is back to baseline Time Spent with Patient Time attestation: Total time spent providing and/or coordinating discharge services: Time spent: Less than 30 minutes Exam Narrative: Physical Exam: GENERAL: Alert and oriented x 3. No acute distress. Well-nourished. EYES: EOMI. No scleral icterus. PERRLA. HEENT: Moist mucous membranes. No cervical lymphadenopathy. LUNGS: Clear to auscultation bilaterally. No accessory muscle use. CARDIOVASCULAR: Regular rate and rhythm. No murmur. No JVD. S1-S2 : bilateral nephrostomy Rt scant red tinged urine A
[2023-12-10 16:41] LABS: SARS-CoV-2 RNA PCR Negative (Negative)
== END 2023-12-10 17:15 ==
LOC: ANHED 12-09 01:56 → ANH2MED 12-09 02:58
PROVIDERS: Nurse Practitioner; Nurse Practitioner Family; Physician Assistant; Admitting Provider Internal Medicine; Emergency Provider Physician Assistant; PCP Hospitalist; Visit Provider General Practice
DX: R31.0 Gross hematuria (principal); N17.9 Acute kidney failure, unspecified; N18.32 Chronic kidney disease, stage 3b; N99.528 Other complication of incontinent external stoma of urinary tract; N13.30 Unspecified hydronephrosis; Z99.2 Dependence on renal dialysis; N39.0 Urinary tract infection, site not specified; J44.9 Chronic obstructive pulmonary disease, unspecified; J43.9 Emphysema, unspecified; C44.90 Unspecified malignant neoplasm of skin, unspecified; N40.1 Benign prostatic hyperplasia with lower urinary tract symptoms; R39.14 Feeling of incomplete bladder emptying; Z11.52 Encounter for screening for COVID-19; F31.9 Bipolar disorder, unspecified; F17.210 Nicotine dependence, cigarettes, uncomplicated; Z85.828 Personal history of other malignant neoplasm of skin; Z79.1 Long term (current) use of non-steroidal anti-inflammatories (NSAID); Z79.899 Other long term (current) drug therapy
CPT/HCPCS: 36415; 71045; 74176; 80048; 80053; 80069; 83735; 84100; 85025; 85610; 85730; 87040; 87086; 87088; 87635; 87641; 96365; 96375; 99285; A9270; G0378; G0379; J0696; J1644; J7030; Q5105

== ENCOUNTER 2024-03-23 11:34 | Emergency (ER) | payer OTHER, SELFPAY ==
[2024-03-23] VITALS (8 sets, daily range): BP systolic 120–143; BP diastolic 72–100; PULSE 68–100; RESP 15–16; TEMP 36.6; O2SAT 98–100
--- NOTE | ~2024-03-23 | XR_ITS ---
EXAMINATION: XR nephrostomy tube change DATE: 03/23/2024 15:54 INDICATION: Bilateral hydronephrosis. TECHNIQUE: The procedure including the risks, benefits, and alternatives was discussed with the patie nt. Risks discussed included bleeding and infection. The patient understood the risks and agreed to p roceed. The back was sterilely prepped and draped. The left nephrostomy tube was cut, injected with c ontrast, and exchanged over a wire for a new 8.5 Lebanese catheter under fluoroscopic guidance. The right nephrostomy tube was cut, injectate with contrast, and exchanged over a wire for a new 8.5 Lebanese catheter under fluoroscopic guidance. There were no immediate complications. Fluoroscopy expos ure time was 1.9 minutes. The total number of images was 4. FINDINGS: Real-time fluoroscopy demonstrates the new left nephrostomy tube in expected position. Real -time fluoroscopy demonstrates the new right nephrostomy tube in expected position. IMPRESSION: 1. Successful fluoroscopy guided left nephrostomy tube exchange. 2. Successful fluoroscopy guided right nephrostomy tube exchange. Reviewed, dictated and finalized at location A.
--- NOTE | ~2024-03-23 | CT_ITS ---
EXAMINATION: CT abdomen pelvis wo con DATE: 03/23/2024 12:41 INDICATION: Pulled out nephrostomy tube. TECHNIQUE: Computed tomography (CT) of the abdomen and pelvis was performed without intravenous contr ast. Automated exposure control and iterative reconstruction technique were employed. The dose-length product was 1110.61 mGy-cm. COMPARISON: CT abdomen and pelvis 12/08/2023 FINDINGS: The visualized portions of the lung bases demonstrate mild atelectasis in the right. No ple ural effusion. The heart size is normal. There is a catheter tip in right atrium. No pericardial effu colt. The liver and gallbladder are normal. Calcifications in the spleen are consistent with old gran ulomatous disease. The pancreas and adrenal glands are normal. There is cortical thinning of the kidn eys. There is a right percutaneous nephrostomy tube in expected position. There is a 9 mm cyst in lef t kidney. The left nephrostomy tube has been partially retracted with uncoiling of the pigtail loop. The tip remains in the renal pelvis. The prostate is severely enlarged. There is diffuse bladder wall thickening, likely secondary to chronic outlet obstruction. There are no dilated loops of bowel. The appendix is normal. There are no pathologically enlarged lymph nodes. There is no free intraperitone al fluid. There is severe lower lumbar spondylosis. IMPRESSION: 1. Partial retraction of the left nephrostomy tube with uncoiling of the pigtail loop, but with the t ip of the catheter still in the renal pelvis. Left nephrostomy tube exchange is recommended. Reviewed, dictated and finalized at location A. IMPRESSION: 1. Partial retraction of the left nephrostomy tube with uncoiling of the pigtai l loop, but with the tip of the catheter still in the renal pelvis. Left nephro stomy tube exchange is recommended.
[2024-03-23 13:03] LABS: Basophils Absolute Auto 0.1 K/mm3 (0.0-0.1); Basophils Percent Auto 0.9 % (0.2-1.2); Eosinophils Absolute Auto 0.4 K/mm3 (0-0.3); Eosinophils Percent Auto 5.8 % (0-4.4); Hematocrit 32.2 % (42.0-52.0); Hemoglobin 10.9 g/dL (14.0-18.0); Immature Granulocyte Absolute 0.02 K/mm3 (0.00-0.031); Immature Granulocyte Percent A 0.3 % (0-0.5); Lymphocytes Absolute Auto 1.63 K/mm3 (0.9-3.2); Lymphocytes Percent Auto 24.4 % (18.3-44.2); Mean Corpuscular HGB Conc 33.9 g/dl (32-36); Mean Corpuscular Hemoglobin 30.8 pg (26-34); Mean Platelet Volume 9.9 fl (7.4-10.4); Monocytes Absolute Auto 0.4 K/mm3 (0.1-0.6); Monocytes Percent Auto 6.4 % (2.6-8.5); Neutrophils Absolute Auto 4.2 K/mm3 (1.3-6.7); Neutrophils Percent Auto 62.2 % (45.5-73.1); Platelet Count Result 158 k/mm3 (150-375); Red Blood Count 3.54 M/mm3 (4.6-6.20); Red Cell Distribution Width 14.6 % (11.5-14.5); White Blood Count 6.7 K/mm3 (4.5-10.0)
--- NOTE | 2024-03-23 13:11 | ED.GENADULT ---
HPI - General Adult General Chief complaint: Recheck/Abnormal Lab/Rx Stated complaint: bleeding at nephrology tubes Time Seen by Provider: 03/23/24 12:21 History of Present Illness HPI narrative: Patient is a 63-year-old gentleman who presents emergency department with chief complaint of a nephrostomy tube. 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 Nursing and ancillary documentation was reviewed. [facility] Past Medical History Medical History Benign prostate hyperplasia Bipolar disorder Chronic kidney disease COPD with emphysema Skin cancer Tobacco dependence Surgical History Surgical History History of tonsillectomy Status post surgical removal of malignant neoplasm of skin From his face and now has a growth on his nose. Family History Family History Other Family history non-contributory Social History Social History Social History: Surrogate medical decision maker: Ari Giron, daughter. Code status: Full code. Smoking packs per day: 1 Smoking cigarettes per day: 20.0 Years smoked: 49 Smoking pack-years: 49.00 Smoking status: Current every day smoker Tobacco type: cigarettes Second hand tobacco smoke exposure: Yes Alcohol intake: former Substance use: never Substance use type: does not use Do You Feel Safe in your Home?: Yes Lack of Transportation: No Lack of Food: Sometimes True Current Housing: I Have Housing Concerned About Future Housing: No Difficulty Paying Gas/Electric Bills: No Difficulty Paying for Meds: No Currently Unemployed: No Education: High School Diploma/GED Difficulty w/ Childcare or Family Care: No Additional living arrangements comments: Lives in [place]. Additional occupation/education comments: Works at a local [employer]. Spiritual care concerns: No Exam Narrative: GENERAL: Well-appearing, well-nourished, and in no acute distress. HEAD: Normocephalic, atraumatic. EYES: PERRLA and EOMI. ENT: Nares clear, no rhinorrhea or epistaxis. Mucous membranes moist. NECK: Supple. CHEST: Clear to auscultation. No respiratory distress. HEART: Regular rate and rhythm. No murmur heard. Normal peripheral pulses. ABDOMEN: Soft, nontender, nondistended, normal active bowel sounds. Back: There are bilateral nephrostomy tubes in place the left tube appears to be pulled out about 1 cm EXTREMITIES: Normal range of motion. No edema. SKIN: Warm, dry, no rash. NEURO: No focal deficits. Alert and oriented x3. PSYCH: Normal mood and affect. Course Vital Signs Vital signs: Vital Signs Temperature 36.6 C 03/23/24 11:36 Pulse Rate 76 03/23/24 11:36 Respiratory Rate 16 03/23/24 11:36 Blood Pressure 142/100 H 03/23/24 11:36 Pulse Oximetry 100 03/23/24 11:36 Oxygen Delivery Room Air 03/23/24 11:36 T
[2024-03-23 13:12] LABS: Partial Thromboplastin Time 31.3 Seconds (22.3-36.8)
[2024-03-23 13:17] LABS: Lactic Acid Reflex 0.7 mmol/L (0.7-2.0)
[2024-03-23 13:19] LABS: Alanine Aminotransferase 14 U/L (6-50); Albumin Level 4.5 g/dL (3.5-5.1); Alkaline Phosphatase 88 U/L (38-126); Anion Gap 15 mmol/L (4-12); Aspartate Amino Transferase 18 U/L (17-59); Bilirubin,Total 0.4 mg/dL (0.2-1.3); Blood Urea Nitrogen 77 mg/dL (9-20); Calcium 8.6 mg/dL (8.4-10.2); Carbon Dioxide 17 mmol/L (22-30); Chloride 108 mmol/L (98-107); Estimated Glomerular Filt Rate 5; Glucose 89 mg/dL (65-110); Potassium 4.9 mmol/L (3.4-5.0); Sodium 140 mmol/L (137-145)
[2024-03-23 13:35] LABS: Procalcitonin 0.3 ng/mL
[2024-03-23 13:36] LABS: Appearance Urine Cloudy (Clear); Bacteria Urine 4+ /hpf; Bilirubin Urine Negative (Negative); Blood Urine 3+ (Negative); Color Urine Yellow (Yellow); Glucose Urine UA Negative (Negative); Ketones Urine Negative (Negative); Leukocyte Esterase Ur 3+ LEU/UL (Negative); Need Manual Microscopic Reviewed; Nitrate Urine Negative (Negative); Protein Urine 2+ mg/dL (Negative); RBC Urine >100 /hpf (0-2); Specific Grav Ur 1.011 (1.001-1.035); Squamous Epithelial Cell Urine Occasional /hpf (Few); Urobilinogen Urine 0.2 mg/dL (<2.0); WBC Urine 51-100 /hpf (0-3); pH Urine 6.5 (5.0-9.0)
[2024-03-23 13:46] LABS: Add Urine Microscopic? YES
== END 2024-03-23 17:20 | disposition home or self-care (01) ==
PROVIDERS: Emergency Provider Emergency Medicine; PCP Hospitalist
DX: T83.022A Displacement of nephrostomy catheter, initial encounter (principal); N39.0 Urinary tract infection, site not specified; N18.6 End stage renal disease; Z99.2 Dependence on renal dialysis; J44.9 Chronic obstructive pulmonary disease, unspecified; J43.9 Emphysema, unspecified; N40.0 Benign prostatic hyperplasia without lower urinary tract symptoms; F17.210 Nicotine dependence, cigarettes, uncomplicated; Z85.828 Personal history of other malignant neoplasm of skin; Y73.8 Miscellaneous gastroenterology and urology devices associated with adverse incidents, not elsewhere classified
CPT/HCPCS: 36415; 50435; 74176; 80053; 81001; 83605; 84145; 85025; 85610; 85730; 87077; 87086; 87088; 87186; 99284; C1729; Q9966

== ENCOUNTER 2024-06-05 04:24 | Emergency (ER) | payer OTHER, SELFPAY ==
[2024-06-05 04:26] VITALS: BP 132/77; PULSE 88; RESP 20; TEMP 36.3; O2SAT 97
--- NOTE | 2024-06-05 05:02 | ED.GENADULT ---
HPI - General Adult General Chief complaint: Unspecified Stated complaint: LEAKING OSTOMY, NEEDS TO BE CHANGED. Time Seen by Provider: 06/05/24 04:29 History of Present Illness HPI narrative: Patient is a 64-year-old gentleman presents emergency department with chief complaint of leaking nephrostomy bags patient had bilateral nephrostomy tubes and reports that the bags on the drains are starting to leak of the patient came the emergency department tonight as the facility where he is at does not have the supplies patient reports no other complication denies fever denies trauma Related Data Home Medications Medication Instructions Recorded Confirmed acetaminophen 500 mg tablet 500 mg PO QID PRN Pain 07/30/23 12/09/23 nicotine 21 mg/24 hr daily 1 patch topical DAILY 12/09/23 12/09/23 transdermal patch Allergies Allergy/AdvReac Type Severity Reaction Status Date / Time No Known Allergies Allergy Verified 03/23/24 12:08 Review of Systems Review of Systems: A 10 system review of systems was completed on the patient and is negative except for what is stated in the HPI. Nursing and ancillary documentation was reviewed. [facility] Past Medical History Medical History Benign prostate hyperplasia Bipolar disorder Chronic kidney disease COPD with emphysema Skin cancer Tobacco dependence Surgical History Surgical History History of tonsillectomy Status post surgical removal of malignant neoplasm of skin From his face and now has a growth on his nose. Family History Family History Other Family history non-contributory Social History Social History Social History: Surrogate medical decision maker: Ari Giron, daughter. Code status: Full code. Smoking packs per day: 1 Smoking cigarettes per day: 20.0 Years smoked: 49 Smoking pack-years: 49.00 Smoking status: Current every day smoker Tobacco type: cigarettes Second hand tobacco smoke exposure: Yes Alcohol intake: former Substance use: never Substance use type: does not use Do You Feel Safe in your Home?: Yes Lack of Transportation: No Lack of Food: Sometimes True Current Housing: I Have Housing Concerned About Future Housing: No Difficulty Paying Gas/Electric Bills: No Difficulty Paying for Meds: No Currently Unemployed: No Education: High School Diploma/GED Difficulty w/ Childcare or Family Care: No Additional living arrangements comments: Lives in [place]. Additional occupation/education comments: Works at a local [employer]. Spiritual care concerns: No Exam Narrative: GENERAL: Well-appearing, well-nourished, and in no acute distress. HEAD: Normocephalic, atraumatic. EYES: PERRLA and EOMI. ENT: Nares clear, no rhinorrhea or epistaxis. Mucous membranes moist. NECK: Supple. CHEST: Clear to auscultation. No respiratory distress. HEART: Regular rate and rhythm. No murmur heard. Normal peripheral pulses. ABDOMEN: Soft, nontender, nondistended, normal active bowel sounds. Back: There are bilateral nephrostomy tubes present EXTREMITIES: Normal range of motion. No edema. SKIN: Warm, dry, no rash. NEURO: No focal deficits. Alert and oriented x3. PSYCH: Normal mood and affect. Course Vital Signs Vital signs: Vital Signs Temperature 36.3 C L 06/05/24 04:26 Pulse Rate 88 06/05/24 04:26 Respiratory Rate 20 06/05/24 04:26 Blood Pressure 132/77 06/05/24 04:26 Pulse Oximetry 97 06/05/24 04:26 Oxygen Delivery Room Air 06/05/24 04:26 Temperature 36.6 C 06/05/24 05:53 Pulse Rate 74 06/05/24 05:53 Respiratory Rate 16 06/05/24 05:53 Blood Pressure 110/74 06/05/24 05:53 Pulse Oximetry 95 06/05/24 05:53 Oxygen Delivery
[2024-06-05 05:53] VITALS: BP 110/74; PULSE 74; RESP 16; TEMP 36.6; O2SAT 95
[2024-06-05 07:58] VITALS: BP 120/72; PULSE 80; RESP 16; O2SAT 99
== END 2024-06-05 08:01 ==
PROVIDERS: Emergency Provider Emergency Medicine
DX: T83.032A Leakage of nephrostomy catheter, initial encounter (principal); N40.0 Benign prostatic hyperplasia without lower urinary tract symptoms; N18.9 Chronic kidney disease, unspecified; J43.9 Emphysema, unspecified; Z85.828 Personal history of other malignant neoplasm of skin; F17.210 Nicotine dependence, cigarettes, uncomplicated; Y84.6 Urinary catheterization as the cause of abnormal reaction of the patient, or of later complication, without mention of misadventure at the time of the procedure
CPT/HCPCS: 99281

== ENCOUNTER 2024-07-22 18:25 | Emergency (ER) | payer OTHER, SELFPAY ==
[2024-07-22 18:26] VITALS: BP 127/96; PULSE 89; RESP 16; TEMP 36.2; O2SAT 98
--- NOTE | 2024-07-22 19:51 | ED_ITS ---
HPI - General Adult General Chief complaint: Unspecified Stated complaint: hole in drainage bag Time Seen by Provider: 07/22/24 19:46 History of Present Illness HPI narrative: patient is a 64-year-old gentleman who presents emergency department with chief complaint of leaking from nephrostomy tube bag. The patient reports that he sprain leak and 1 of his bags and needs a replacement bag Related Data Home Medications Medication Instructions Recorded Confirmed acetaminophen 500 mg tablet 500 mg PO QID PRN Pain 07/30/23 12/09/23 nicotine 21 mg/24 hr daily 1 patch topical DAILY 12/09/23 12/09/23 transdermal patch Allergies Allergy/AdvReac Type Severity Reaction Status Date / Time No Known Allergies Allergy Verified 03/23/24 12:08 Review of Systems Review of Systems: A 10 system review of systems was completed on the patient and is negative except for what is stated in the HPI. Nursing and ancillary documentation was reviewed. [facility] Past Medical History Medical History Benign prostate hyperplasia Bipolar disorder Chronic kidney disease COPD with emphysema Skin cancer Tobacco dependence Surgical History Surgical History History of tonsillectomy Status post surgical removal of malignant neoplasm of skin From his face and now has a growth on his nose. Family History Family History Other Family history non-contributory Social History Social History Social History: Surrogate medical decision maker: Ari Giron, daughter. Code status: Full code. Smoking packs per day: 1 Smoking cigarettes per day: 20.0 Years smoked: 49 Smoking pack-years: 49.00 Smoking status: Current every day smoker Tobacco type: cigarettes Second hand tobacco smoke exposure: Yes Alcohol intake: former Substance use: never Substance use type: does not use Do You Feel Safe in your Home?: Yes Lack of Transportation: No Lack of Food: Sometimes True Current Housing: I Have Housing Concerned About Future Housing: No Difficulty Paying Gas/Electric Bills: No Difficulty Paying for Meds: No Currently Unemployed: No Education: High School Diploma/GED Difficulty w/ Childcare or Family Care: No Additional living arrangements comments: Lives in [place]. Additional occupation/education comments: Works at a local [employer]. Spiritual care concerns: No Exam Narrative: GENERAL: Well-appearing, well-nourished, and in no acute distress. HEAD: Normocephalic, atraumatic. EYES: PERRLA and EOMI. ENT: Nares clear, no rhinorrhea or epistaxis. Mucous membranes moist. NECK: Supple. CHEST: Clear to auscultation. No respiratory distress. HEART: Regular rate and rhythm. No murmur heard. Normal peripheral pulses. ABDOMEN: Soft, nontender, nondistended, normal active bowel sounds. bilateral nephrostomy tubes in place draining yellow urine EXTREMITIES: Normal range of motion. No edema. SKIN: Warm, dry, no rash. NEURO: No focal deficits. Alert and oriented x3. PSYCH: Normal mood and affect. Course Vital Signs Vital signs: Vital Signs Temperature 36.2 C L 07/22/24 18:26 Pulse Rate 89 07/22/24 18:26 Respiratory Rate 16 07/22/24 18:26 Blood Pressure 127/96 H 07/22/24 18:26 Pulse Oximetry 98 07/22/24 18:26 Temperature 36.2 C L 07/22/24 18:26 Pulse Rate 89 07/22/24 18:26 Respiratory Rate 16 07/22/24 18:26 Blood Pressure 127/96 H 07/22/24 18:26 Pulse Oximetry 98 07/22/24 18:26 Medical Decision Making MDM Narrative Medical decision making narrative: patient showing no signs of infection has a mechanical leak of the nephrostomy tube bag this will be replaced in the emergency department the patient discharged home Vital Signs Vital Signs: Vital Signs Temperature 36.2 C L 07/22/24 18:26 Pulse Rate 89 07/22/24 18:26 Respiratory Rate 16 07/22/24 18:26 Blood Pressure 127/96 H 07/22/24 18:26 Pulse Oximetry 98 07/22/24 18:26 Temperature 36.2 C L 07/22/24 18:26 Pulse Rate 89 07/22/24 18:26 Respiratory Rate 16 07/22/24 18:26 Blood Pressure 127/96 H 07/22/24 18:26 Pulse Oximetry 98 07/22/24 18:26 Discharge Plan Discharge Clinical Impression: Other mechanical complication of nephrostomy catheter, initial encounter Condition: Stable Instructions: Antibiotic Form, Nephrostomy Tube Care (ED) Prescriptions: No Action nicotine 21 mg/24 hr Patch 24 Hour 1 patch topical DAILY finasteride [Proscar] 5 mg Tablet 5 mg PO QAM Qty: 30 0RF acetaminophen 500 mg Tablet 500 mg PO QID PRN (Reason: Pain) polyethylene glycol 3350 [Miralax] 17 gram Powder In Packet 17 g PO QAM PRN (Reason: Constipation) Qty: 30 0RF tamsulosin 0.4 mg Capsule 0.4 mg PO QAM Qty: 30 0RF sulfamethoxazole-trimethoprim [Bactrim DS] 800-160 mg tablet 1 tablet PO Q12H Qty: 14 0RF Follow-up/Referrals: Sotero Verma MD [Physician] - PHYSICIAN,VARNISHER [Primary Care Provider] - Terrence Farooq MD [Physician] - Time of Disposition: 19:54
== END 2024-07-22 20:24 ==
PROVIDERS: Emergency Provider Emergency Medicine
DX: T83.032A Leakage of nephrostomy catheter, initial encounter (principal); N18.9 Chronic kidney disease, unspecified; J43.9 Emphysema, unspecified; N40.0 Benign prostatic hyperplasia without lower urinary tract symptoms; F17.210 Nicotine dependence, cigarettes, uncomplicated; Z85.828 Personal history of other malignant neoplasm of skin; Y84.6 Urinary catheterization as the cause of abnormal reaction of the patient, or of later complication, without mention of misadventure at the time of the procedure
CPT/HCPCS: 99281

== ENCOUNTER 2024-09-17 04:13 | Emergency (ER) | payer OTHER, SELFPAY ==
--- NOTE | ~2024-09-17 | CT_ITS ---
Non-contrast CT scan of the Abdomen and Pelvis Clinical indication: Hematuria, bleeding from nephrostomy sites Technique: 2.5 mm axial scans were obtained through the abdomen and pelvis without intravenous or or al contrast. Dose reduction technique was used on this scan by utilizing automated exposure control a nd iterative reconstruction technique. The dose-length product (DLP) was 640.72 mGy-cm. COMPARISON: 03/23/2024 Findings: Images through the lung bases reveal no abnormalities. Bilateral percutaneous nephrostomy catheters are in place. No definite stones identified. No definite hydronephrosis. The liver, spleen, pancreas, gallbladder, and adrenals appear normal. There are atherosclerotic calci fications of the aorta. . There is no evidence of bowel obstruction. Images through the pelvis were performed. There is no evidence of ascites or lymphadenopathy. There i s mild diffuse urinary bladder wall thickening. Prostate gland markedly enlarged. Impression: Bilateral percutaneous nephrostomies in place. No other renal abnormality evident. Markedly enlarged prostate gland. Possible cystitis. Correlate clinically and with urinalysis. Reviewed, dictated and finalized at [facility]. GORY DIRECTOR Impression: Bilateral percutaneous nephrostomies in place. No other renal abnormality evide nt. Markedly enlarged prostate gland. Possible cystitis. Correlate clinically and with urinalysis.
[2024-09-17 04:12] VITALS: BP 138/74; PULSE 99; RESP 18; TEMP 36.4; O2SAT 97
[2024-09-17 06:10] LABS: Basophils Absolute Auto 0.1 K/mm3 (0.0-0.1); Eosinophils Absolute Auto 0.6 K/mm3 (0-0.3); Eosinophils Percent Auto 6.6 % (0-4.4); Hematocrit 35.9 % (42.0-52.0); Hemoglobin 11.6 g/dL (14.0-18.0); Immature Granulocyte Absolute 0.04 K/mm3 (0.00-0.031); Immature Granulocyte Percent A 0.5 % (0-0.5); Lymphocytes Absolute Auto 1.68 K/mm3 (0.9-3.2); Lymphocytes Percent Auto 20.2 % (18.3-44.2); Mean Corpuscular HGB Conc 32.3 g/dl (32-36); Mean Corpuscular Hemoglobin 31.6 pg (26-34); Mean Corpuscular Volume 97.8 fl (80-100); Mean Platelet Volume 9.7 fl (7.4-10.4); Monocytes Absolute Auto 0.6 K/mm3 (0.1-0.6); Monocytes Percent Auto 7.1 % (2.6-8.5); Neutrophils Absolute Auto 5.4 K/mm3 (1.3-6.7); Neutrophils Percent Auto 64.6 % (45.5-73.1); Platelet Count Result 202 k/mm3 (150-375); Red Blood Count 3.67 M/mm3 (4.6-6.20); Red Cell Distribution Width 13.4 % (11.5-14.5); White Blood Count 8.3 K/mm3 (4.5-10.0)
[2024-09-17 06:18] LABS: Add Urine Microscopic? YES; Appearance Urine Cloudy (Clear); Bacteria Urine 4+ /hpf; Bilirubin Urine Negative (Negative); Blood Urine 2+ (Negative); Color Urine Yellow (Yellow); Glucose Urine UA Negative (Negative); Ketones Urine Negative (Negative); Leukocyte Esterase Ur 3+ LEU/UL (Negative); Nitrate Urine Negative (Negative); Protein Urine 2+ mg/dL (Negative); RBC Urine 21-50 /hpf (0-2); Squamous Epithelial Cell Urine None Seen /hpf (Few); Urobilinogen Urine 0.2 mg/dL (<2.0); WBC Urine >100 /hpf (0-3); pH Urine 6.5 (5.0-9.0)
[2024-09-17 06:23] LABS: Prothrombin Time 13.8 Seconds (11.1-14.7)
[2024-09-17 06:24] LABS: Alanine Aminotransferase 12 U/L (6-50); Albumin Level 4.4 g/dL (3.5-5.1); Alkaline Phosphatase 93 U/L (38-126); Anion Gap 10 mmol/L (4-12); Aspartate Amino Transferase 14 U/L (17-59); Bilirubin,Total 0.5 mg/dL (0.2-1.3); Blood Urea Nitrogen 62 mg/dL (9-20); Calcium 9.1 mg/dL (8.4-10.2); Carbon Dioxide 20 mmol/L (22-30); Chloride 107 mmol/L (98-107); Estimated CRCL calculation 7 ml/min; Estimated Glomerular Filt Rate 5; Glucose 84 mg/dL (65-110); Partial Thromboplastin Time 33.6 Seconds (22.3-36.8); Potassium 4.6 mmol/L (3.4-5.0); Sodium 137 mmol/L (137-145)
[2024-09-17 06:48] VITALS: BP 139/84; PULSE 80; RESP 16; O2SAT 95
--- NOTE | 2024-09-17 06:51 | ED_ITS ---
HPI - General Adult General Chief complaint: Urogenital-Male <Sukh Stinson MD - Last Filed: 09/17/24 06:55> Stated complaint: Bleeding in urostomy bag <Sukh Stinson MD - Last Filed: 09/17/24 06:55> Time Seen by Provider: 09/17/24 05:30 <Sukh Stinson MD - Last Filed: 09/17/24 06:55> History of Present Illness HPI narrative: Patient is a 64-year-old gentleman who presents emergency department with chief complaint of hematuria and bleeding from nephrostomy tubes. The patient has bilateral nephrostomy tubes and is end-stage renal on dialysis. The patient reports that he started having bleeding in his urine and also had bleeding from his left nephrostomy tube. The patient's tubes were last changed in March reports that he sees nephrology at our facility. <Sukh Stinson MD - Last Filed: 09/17/24 06:55> Related Data Home medications: Home Medications ?Medication ?Instructions ?Recorded ?Confirmed ?Last Taken ?Type acetaminophen 500 mg tablet 500 mg PO QID PRN Pain 07/30/23 12/09/23 Unknown History nicotine 21 mg/24 hr daily 1 patch topical DAILY 12/09/23 12/09/23 Unknown History transdermal patch <Sukh Stinson MD - Last Filed: 09/17/24 06:55> Allergies/adverse reactions: Allergies Allergy/AdvReac Type Severity Reaction Status Date / Time No Known Allergies Allergy Verified 09/17/24 04:35 <Sukh Stinson MD - Last Filed: 09/17/24 06:55> Review of Systems 2 Review of Systems: A 10 system review of systems was completed on the patient and is negative except for what is stated in the HPI. Nursing and ancillary documentation was reviewed. <Sukh Stinson MD - Last Filed: 09/17/24 06:55> PMFSH Past Medical History Medical History: Medical History Chronic kidney disease Bipolar disorder Tobacco dependence Benign prostate hyperplasia COPD with emphysema Skin cancer <Sukh Stinson MD - Last Filed: 09/17/24 06:55> Surgical History Surgical History: Surgical History History of tonsillectomy Status post surgical removal of malignant neoplasm of skin From his face and now has a growth on his nose. <Sukh Stinson MD - Last Filed: 09/17/24 06:55> Family History Family History: Family History Other Family history non-contributory <Sukh Stinson MD - Last Filed: 09/17/24 06:55> Social History Social History: Social History Social History: Surrogate medical decision maker: Ari Giron, daughter. Code status: Full code. Smoking packs per day: 1 Smoking cigarettes per day: 20.0 Years smoked: 49 Smoking pack-years: 49.00 Smoking status: Current every day smoker Tobacco type: cigarettes Second hand tobacco smoke exposure: Yes Alcohol intake: former Substance use: never Substance use type: does not use Do You Feel Safe in your Home?: Yes Lack of Transportation: No Lack of Food: Sometimes True Current Housing: I Have Housing Concerned About Future Housing: No Difficulty Paying Gas/Electric Bills: No Difficulty Paying for Meds: No Currently Unemployed: No Education: High School Diploma/GED Difficulty w/ Childcare or Family Care: No Additional living arrangements comments: Lives in [place]. Additional occupation/education comments: Works at a [employer]. Spiritual care concerns: No <Sukh Stinson MD - Last Filed: 09/17/24 06:55> Exam 2 Narrative: GENERAL: Well-appearing, well-nourished, and in no acute distress. HEAD: Normocephalic, atraumatic. EYES: PERRLA and EOMI. ENT: Nares clear, no rhinorrhea or epistaxis. Mucous membranes moist. NECK: Supple. CHEST: Clear to auscultation. No respiratory distress. HEART: Regular rate and rhythm. No murmur heard. Normal peripheral pulses. ABDOMEN: Soft, nontender, nondistended, normal active bowel sounds. Back: There is a nephrostomy tube present in the right flank that is draining clear yellow urine there is a nephrostomy tube in the left flank that is draining bloody drainage. EXTREMITIES: Normal range of motion. No edema. SKIN: Warm, dry, no rash. NEURO: No focal deficits. Alert and oriented x3. PSYCH: Normal mood and affect. <Sukh Stinson MD - Last Filed: 09/17/24 06:55> Course Reevaluation(s) Reevaluation #1: I assumed care of this patient at shift change with pending disposition and consult. I have re-examined the patient is comfortably resting. No pain or discomfort. His left nephrostomy was flushed shows for light pink return. I did discuss with Dr. Verma , pt canbe discharged , can get Dialysis as scheduled tomorrow. <Rodolfo Gonzalez MD - Last Filed: 09/17/24 09:08> Vital Signs Vital signs: Vital Signs Temperature 36.4 C L 09/17/24 04:12 Pulse Rate 99 09/17/24 04:12 Respiratory Rate 18 09/17/24 04:12 Blood Pressure 138/74 09/17/24 04:12 Pulse Oximetry 97 09/17/24 04:12 Oxygen Delivery Room Air 09/17/24 04:12 Temperature 36.4 C L 09/17/24 04:12 Pulse Rate 100 09/17/24 08:57 Respiratory Rate 18 09/17/24 08:57 Blood Pressure 131/91 H 09/17/24 08:57 Pulse Oximetry 98 09/17/24 08:57 Oxygen Delivery Room Air 09/17/24 04:12 <Sukh Stinson MD - Last Filed: 09/17/24 06:55> Vital Signs Temperature 36.4 C L 09/17/24 04:12 Pulse Rate 99 09/17/24 04:12 Respiratory Rate 18 09/17/24 04:12 Blood Pressure 138/74 09/17/24 04:12 Pulse Oximetry 97 09/17/24 04:12 Oxygen Delivery Room Air 09/17/24 04:12 Temperature 36.4 C L 09/17/24 04:12 Pulse Rate 100 09/17/24 08:57 Respiratory Rate 18 09/17/24 08:57 Blood Pressure 131/91 H 09/17/24 08:57 Pulse Oximetry 98 09/17/24 08:57 Oxygen Delivery Room Air 09/17/24 04:12 <Rodolfo Gonzalez MD - Last Filed: 09/17/24 09:08> Medical Decision Making MDM Narrative Medical decision making narrative: Differential diagnosis includes nephrostomy tube malfunction, trauma, CT scan was obtained that showed that the nephrostomy tubes are in place. The case was discussed with Urology the recommended irrigating the nephrostomy tube on the left this has been performed by the nurses currently we are waiting for 1 the tube to produce any additional urine after several clots were expressed from the urostomy site. <Sukh Stinson MD - Last Filed: 09/17/24 06:55> Vital Signs Vital Signs: Vital Signs Temperature 36.4 C L 09/17/24 04:12 Pulse Rate 99 09/17/24 04:12 Respiratory Rate 18 09/17/24 04:12 Blood Pressure 138/74 09/17/24 04:12 Pulse Oximetry 97 09/17/24 04:12 Oxygen Delivery Room Air 09/17/24 04:12 Temperature 36.4 C L 09/17/24 04:12 Pulse Rate 100 09/17/24 08:57 Respiratory Rate 18 09/17/24 08:57 Blood Pressure 131/91 H 09/17/24 08:57 Pulse Oximetry 98 09/17/24 08:57 Oxygen Delivery Room Air 09/17/24 04:12 <Sukh Stinson MD - Last Filed: 09/17/24 06:55> Vital Signs Temperature 36.4 C L 09/17/24 04:12 Pulse Rate 99 09/17/24 04:12 Respiratory Rate 18 09/17/24 04:12 Blood Pressure 138/74 09/17/24 04:12 Pulse Oximetry 97 09/17/24 04:12 Oxygen Delivery Room Air 09/17/24 04:12 Temperature 36.4 C L 09/17/24 04:12 Pulse Rate 100 09/17/24 08:57 Respiratory Rate 18 09/17/24 08:57 Blood Pressure 131/91 H 09/17/24 08:57 Pulse Oximetry 98 09/17/24 08:57 Oxygen Delivery Room Air 09/17/24 04:12 <Rodolfo Gonzalez MD - Last Filed: 09/17/24 09:08> Lab Data Result diagrams: 09/17/24 05:55 09/17/24 05:55 <Sukh Stinson MD - Last Filed: 09/17/24 06:55> Labs: Lab Results 09/17/24 Range/Units 05:55 WBC 8.3 (4.5-10.0) K/mm3 RBC 3.67 L (4.6-6.20) M/mm3 Hgb 11.6 L (14.0-18.0) g/dL Hct 35.9 L (42.0-52.0) % MCV 97.8 (80-100) fl MCH 31.6 (26-34) pg MCHC 32.3 (32-36) g/dl RDW 13.4 (11.5-14.5) % Plt Count 202 (150-375) k/mm3 MPV 9.7 (7.4-10.4) fl Immature Gran % (Auto) 0.5 (0-0.5) % Neut % (Auto) 64.6 (45.5-73.1) % Lymph % (Auto) 20.2 (18.3-44.2) % [place] % (Auto) 7.1 (2.6-8.5) % Eos % (Auto) 6.6 H (0-4.4) % Baso % (Auto) 1.0 (0.2-1.2) % Lymph # (Auto) 1.68 (0.9-3.2) K/mm3 [place] # (Auto) 0.6 (0.1-0.6) K/mm3 Eos # (Auto) 0.6 H (0-0.3) K/mm3 Baso # (Auto) 0.1 (0.0-0.1) K/mm3 Abs Immat Gran (auto) 0.04 H (0.00-0.031) K/mm3 Absolute Neuts (auto) 5.4 (1.3-6.7) K/mm3 Absolute Nucleated RBC 0.000 (0.0-0.012) K/mm3 Nucleated RBC % 0.0 (0.0-0.2) % PT 13.8 (11.1-14.7) Seconds INR 1.0 APTT 33.6 (22.3-36.8) Seconds Sodium 137 (137-145) mmol/L Potassium 4.6 (3.4-5.0) mmol/L Chloride 107 (98-107) mmol/L Carbon Dioxide 20 L (22-30) mmol/L Anion Gap 10 (4-12) mmol/L BUN 62 H D (9-20) mg/dL Creatinine 10.40 H (0.7-1.3) mg/dL Estim Creat Clear Calc 7 ml/min Estimated GFR 5 L (59 - ) Glucose 84 (65-110) mg/dL Calcium 9.1 (8.4-10.2) mg/dL Total Bilirubin 0.5 (0.2-1.3) mg/dL AST 14 L (17-59) U/L ALT 12 (6-50) U/L Alkaline Phosphatase 93 (38-126) U/L Total Protein 7.0 (6.3-8.2) g/dL Albumin 4.4 (3.5-5.1) g/dL Urine Color Yellow (Yellow) Urine Appearance Cloudy H (Clear) Urine pH 6.5 (5.0-9.0) Ur Specific [place] 1.010 (1.001-1.035) Urine Protein 2+ H (Negative) mg/dL Urine Glucose (UA) Negative (Negative) mg/dL Urine Ketones Negative (Negative) mg/dL Ur Blood (Man) 2+ H (Negative) Urine Nitrate Negative (Negative) Urine Bilirubin Negative (Negative) Urine Urobilinogen 0.2 (<2.0) mg/dL Leukocyte Esterase Rfl 3+ H (Negative) KIMBER/UL Urine RBC 21-50 H (0-2) /hpf Urine WBC >100 H (0-3) /hpf Ur Squamous Epith Cells None seen (Few) /hpf Urine Bacteria 4+ /hpf Urine Casts 3-5 <Sukh Stinson MD - Last Filed: 09/17/24 06:55> Lab Results 09/17/24 Range/Units 05:55 WBC 8.3 (4.5-10.0) K/mm3 RBC 3.67 L (4.6-6.20) M/mm3 Hgb 11.6 L (14.0-18.0) g/dL Hct 35.9 L (42.0-52.0) % MCV 97.8 (80-100) fl MCH 31.6 (26-34) pg MCHC 32.3 (32-36) g/dl RDW 13.4 (11.5-14.5) % Plt Count 202 (150-375) k/mm3 MPV 9.7 (7.4-10.4) fl Immature Gran % (Auto) 0.5 (0-0.5) % Neut % (Auto) 64.6 (45.5-73.1) % Lymph % (Auto) 20.2 (18.3-44.2) % [place] % (Auto) 7.1 (2.6-8.5) % Eos % (Auto) 6.6 H (0-4.4) % Baso % (Auto) 1.0 (0.2-1.2) % Lymph # (Auto) 1.68 (0.9-3.2) K/mm3 [place] # (Auto) 0.6 (0.1-0.6) K/mm3 Eos # (Auto) 0.6 H (0-0.3) K/mm3 Baso # (Auto) 0.1 (0.0-0.1) K/mm3 Abs Immat Gran (auto) 0.04 H (0.00-0.031) K/mm3 Absolute Neuts (auto) 5.4 (1.3-6.7) K/mm3 Absolute Nucleated RBC 0.000 (0.0-0.012) K/mm3 Nucleated RBC % 0.0 (0.0-0.2) % PT 13.8 (11.1-14.7) Seconds INR 1.0 APTT 33.6 (22.3-36.8) Seconds Sodium 137 (137-145) mmol/L Potassium 4.6 (3.4-5.0) mmol/L Chloride 107 (98-107) mmol/L Carbon Dioxide 20 L (22-30) mmol/L Anion Gap 10 (4-12) mmol/L BUN 62 H D (9-20) mg/dL Creatinine 10.40 H (0.7-1.3) mg/dL Estim Creat Clear Calc 7 ml/min Estimated GFR 5 L (59 - ) Glucose 84 (65-110) mg/dL Calcium 9.1 (8.4-10.2) mg/dL Total Bilirubin 0.5 (0.2-1.3) mg/dL AST 14 L (17-59) U/L ALT 12 (6-50) U/L Alkaline Phosphatase 93 (38-126) U/L Total Protein 7.0 (6.3-8.2) g/dL Albumin 4.4 (3.5-5.1) g/dL Urine Color Yellow (Yellow) Urine Appearance Cloudy H (Clear) Urine pH 6.5 (5.0-9.0) Ur Specific [place] 1.010 (1.001-1.035) Urine Protein 2+ H (Negative) mg/dL Urine Glucose (UA) Negative (Negative) mg/dL Urine Ketones Negative (Negative) mg/dL Ur Blood (Man) 2+ H (Negative) Urine Nitrate Negative (Negative) Urine Bilirubin Negative (Negative) Urine Urobilinogen 0.2 (<2.0) mg/dL Leukocyte Esterase Rfl 3+ H (Negative) KIMBER/UL Urine RBC 21-50 H (0-2) /hpf Urine WBC >100 H (0-3) /hpf Ur Squamous Epith Cells None seen (Few) /hpf Urine Bacteria 4+ /hpf Urine Casts 3-5 <Rodolfo Gonzalez MD - Last Filed: 09/17/24 09:08> Discharge Plan Discharge Clinical Impression: Nephrostomy tube bleed, End stage renal disease on dialysis Hematuria Qualifiers: Hematuria type: unspecified type Qualified Code(s): R31.9 - Hematuria, unspecified <Sukh Stinson MD - Last Filed: 09/17/24 06:55> Patient Disposition: [facility] <Sukh Stinson MD - Last Filed: 09/17/24 06:55> Condition: Stable <Sukh Stinson MD - Last Filed: 09/17/24 06:55> Instructions: Hematuria (ED) <Sukh Stinson MD - Last Filed: 09/17/24 06:55> Additional Instructions: continue home medications, follow with your Urologist next week <Sukh Stinson MD - Last Filed: 09/17/24 06:55> Patient Language: Mongolian <Sukh Stinson MD - Last Filed: 09/17/24 06:55> Prescriptions: No Action nicotine 21 mg/24 hr Patch 24 Hour 1 patch topical DAILY finasteride [Proscar] 5 mg Tablet 5 mg PO QAM Qty: 30 0RF acetaminophen 500 mg Tablet 500 mg PO QID PRN (Reason: Pain) polyethylene glycol 3350 [Miralax] 17 gram Powder In Packet 17 g PO QAM PRN (Reason: Constipation) Qty: 30 0RF tamsulosin 0.4 mg Capsule 0.4 mg PO QAM Qty: 30 0RF sulfamethoxazole-trimethoprim [Bactrim DS] 800-160 mg tablet 1 tablet PO Q12H Qty: 14 0RF <Sukh Stinson MD - Last Filed: 09/17/24 06:55> Follow-up/Referrals: PHYSICIAN,DIRECTOR OF HOME CARE HOSPICE [Primary Care Provider] - <Sukh Stinson MD - Last Filed: 09/17/24 06:55> Time of Disposition: 09:07 <Sukh Stinson MD - Last Filed: 09/17/24 06:55> 09:07 <Rodolfo Gonzalez MD - Last Filed: 09/17/24 09:08>
--- NOTE | 2024-09-17 07:09 | PC.NURSE ---
bssr given to ugo artis at this time. pt resting comfortably in bed with call light within reach.
--- NOTE | 2024-09-17 07:12 | PC.NURSE ---
assumed care of pt, pt is alert to verbal stimuli, resting on stretcher, discussed POC, VSS
[2024-09-17 07:13] VITALS: BP 128/75; PULSE 79; RESP 14; O2SAT 95
--- NOTE | 2024-09-17 08:51 | PC.NURSE ---
irrigated nephrostomy tube per [facility] EDP Dr Gonzalez, light pink output w/ no clots or bright red blood noted, EDP made aware
[2024-09-17 08:57] VITALS: BP 131/91; PULSE 100; RESP 18; O2SAT 98
--- NOTE | 2024-09-17 12:07 | PCCCNOTE ---
Called to the ED to get the pt a cab voucher so he can return back to the nursing facility.
--- OUTSIDE RECORDS SUMMARY | 2024-09-24 06:03 | XMS_ITS | Clinical Summary ---
Author Organization [facility] mydala Address [address] [place] [address] Care Team Providers Care Coal Handler Name Role Phone None, Physician Primary Care Provider Unavailabl e Source Comments [facility],non-owned Affiliates and Associated Physician Practices is amultiple site organization consisting of ambulatory clinics and hospital sitesin [place], [place], [place] and [place]. This disclosure is being madepursuant to the Care Everywhere program and may not contain all information available regarding this patient. Last updated 18.Octavian [facility] Allergies No known active allergies Medications * Be aware that medications may not be up to date on this document. Alwaysverify current medications with the patient. Medication Sig Dispensed Refills Start Date End Date Status diphenhydrAMINE (Benadryl) 25 mg/50 mL infusion Take 25 (twenty five) mg by mouth every 6 hours as needed Active finasteride (Proscar) 5 MG tablet Take 1 (one) tablet by mouth once daily 06/13/2023 Active sevelamer (Renagel) 800 MG tablet Take 2 (two) tablets by mouth 3 times daily with meals 03/12/2024 Active tamsulosin (Flomax) 0.4 MG capsule Take 1 (one) capsule by mouth once daily 05/30/2023 Active polyethylene glycol 3350 (Miralax) 17 g packet Take by mouth once daily Active alum and mag hydroxide-simeth (Maalox Max) 400-400-40 MG/5ML suspension Take 5 mL by mouth every 6 hours as needed for Heartburn Active oxyCODONE, immediate release, (Roxicodone) 5 MG tabletIndications:Ma lignant neoplasm of upper lobe of right lung (HCC) Take 1 (one) tablet by mouth every 4 hours as needed 12 tablet 07/21/2024 Active white petroleum (Vaseline) ointment Apply to affected area 3 times daily 106 g 07/21/2024 Active Active Problems Problem Noted Date Diagnosed Date Malignant neoplasm of upper lobe of right lung 1 Basal cell carcinoma (BCC) of left nasal sidewal l 05/22/2024 Encounters Date Type Department Care Team Description 07/25/2024 11:01 AM 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 - 07/25/2024 11:59 PM 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 PFT [address] [place] [address] Ben Mccormack MD Discharge Disposition: Home or Self Care 07/25/2024 Travel 07/24/2024 Orders Only [facility] - Cardiothoracic Surgery [address] [place] [address] Augustine Jimenez MD Malignant neoplasm of upper lobe of right lung (HCC) 07/20/2024 4:45 PM CDT Anesthesia Event [facility] [address] [place] [address] Sampson Soto DO Roberts, Tania, MADHURI-NUVIA 07/20/2024 4:21 PM CDT - 07/20/2024 6:[address] [facility] [address] [place] [address] Ritesh Mensah MD [employer]IAN FOREHEAD FLAP 07/17/2024 2:36 PM CDT Anesthesia Event [facility] [address] [place] [address] Jesse Sauer MD Kong, Daniel, DO 07/17/2024 12:30 PM CDT - 07/17/2024 2:[address] [facility] [address] [place] [address] Augustine Jimenez MD Video-assisted thoracoscopic Left upper lobe Lingular sparing Segmentectomy 07/17/2024 9:08 AM CDT - 07/21/2024 11:14 AM CDT Hospital Encounter [facility] 8N ACUTE [address] [place] [address] Augustine Jimenez MD Surgery General Discharge Disposition: Home or Self Care 07/17/2024 Travel 07/03/[address] [facility] - General Surgery [address] [place] [address] Augustine Jimenez MD Malignant neoplasm of lung, unspecified laterality, unspecified part of lung (HCC) 07/03/[address] [facility] - Cardiothoracic Surgery [address] [place] [address] Augustine Jimenez MD Appointment (New surgery) 07/03/2024 Telephone [facility] - Surgery [address], [address] [place] [address] Blair Cedeno MA Late Cancel 06/26/2024 1:00 PM CDT Procedure visit [facility] - Pulmonology [address] [place] [address] Lung nodule ; Malignant neoplasm of upper lobe of right lung (HCC) from Last 3 Months Social History Tobacco Use Types Packs/Day Years Used Date Smoking Tobacco: Every Day Cigarettes 1 51 Smokeless Tobacco: Never Tobacco Cessation:Ready to Q uit: Not Asked; Counseling Given: Not Answered Comments:Down to less than half a pack daily Alcohol Use Standard Drinks/Week Comments Not Currently 0 (1 standard drink = 0.6 oz pur e alcohol) AUDIT-C Answer Date Recorded Q1: How often do you have a drink containing alcohol? Never 07/17/2024 Q2: How many drinks containi ng alcohol do you have on a typical day when you are drinking? Patient does not drink Q3: How often do you have si x or more drinks on one occasion? Never 07/17/2024 Overall Financial Resource Strain (CARDIA) Answe r Date Recorded How hard is it for you to pa y for the very basics like food, housing, medical care, and heating? Not hard at all 05/23/2024 [place] Citizen [place] [facility] - Occupational Stress Questionnaire Answer Date Recorded Do you feel stress - tense, restless, nervous, or anxious, or unable to sleep at night because your mind is troubled all the time - these days? Not at all 05/23/2024 Hunger Vital Sign Answer Date Recorded Within the past 12 months, y ou worried that your food would run out before you got the money to buy more. Never true 05/23/20 24 Within the past 12 months, t he food you bought just didn't last and you didn't have money to get more. Never true 05/23/2024 PRAPARE - Transportation Answer Date Re corded In the past 12 months, has l ack of transportation kept you from medical appointments or from getting medications? No 12/2023 In the past 12 months, has l ack of transportation kept you from meetings, work, or from getting things needed for daily living? No 05/23/2024 Housing Stability Vital Sign Answer Ander e Recorded In the last 12 months, was t here a time when you were not able to pay the mortgage or rent on time? No 05/23/2024 In the last 12 months, how many places have you lived? 1 05/23/2024 In the last 12 months, was t here a time when you did not have a steady place to sleep or slept in a correction (including now)? No 05/23/2024 Sex and Gender Information Value Date Recorded Sex Assigned at Not on file Gender Identity Not on file Sexual Orientation Not on file Last Filed Vital Signs Vital Sign Reading Time Taken Comments Blood Pressure 119/67 07/21/2024 8:16 AM CDT Pulse 94 07/21/2024 8:16 AM CDT Temperature 37.2 ??C (98.9 ??F) 07/21/2024 8:16 AM CD T Respiratory Rate 18 07/21/2024 8:16 AM CDT Oxygen Saturation 92% 07/21/2024 8:16 AM CDT Inhaled Oxygen Concentration 40% 05/18/2024 3 :45 PM CDT Weight 91.3 kg (201 lb 3.2 oz) 07/17/2024 10:44 AM CDT Height 172.7 cm (5' 8 ) 07/17/2024 10:44 AM CDT Body Mass Index 30.59 07/17/2024 10:44 AM CDT Plan of Treatment Upcoming Encounters Date Type Department Care Team (Late st Contact Info) Description 10/16/2024 1:30 PM 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 Office Visit [facility] - ENT [address], [place] [address] Ritesh Mensah MD [address] DE[place] [address] Health Maintenance Due Date Last Done Comments COLOGUARD (AGES 45-75) - COLON CA SCREENING 1959 COLON MONITORING 1959 COLONOSCOPY - COLON CA SCREENING 1959 CT COLONOGRAPHY - COLON CA SCREENING 1959 Colorectal Cancer Screening 1959 FIT - COLON CA SCREENING 1959 FLEX SIG - COLON CA SCREENING 1959 LIPID TESTING 1959 PNEUMOCOCCAL VACCINE 65+ (1 of 2 - PCV) 1965 HIV SCREENING 1974 HEPATITIS C SCREENING 05/21/1977 DTAP/TDAP/TD VACCINES (1 - Tdap) 1978 HEPATITIS B VACCINE (1 of 3 - Risk Dialysis 4-dose series) 1979 LUNG CANCER SCREENING 2009 ZOSTER VACCINE (1 of 2) 2009 Respiratory Syncytial Virus (RSV) Vaccine Pt: or over 60 yrs (1 - Risk 60-74 years 1-dose series) 2019 COVID-19 VACCINE ( season) 2024 INFLUENZA VACCINE (#1) 2024 AAA SCREENING 2024 DEPRESSION SCREENING 09/19/2024 SCREENING FOR DIABETES 07/21/2027 4, 07/20/2024, 07/19/2024, Additional history exists HIB VACCINE Aged Out No longer eligi ble based on patient's age to complete this topic HPV VACCINE Aged Out No longer eligi ble based on patient's age to complete this topic MENINGOCOCCAL VACCINE Aged Out No luis daniel maddy eligible based on patient's age to complete this topic Procedures Procedure Name Priority Date/Time Associated Diagnosis Comments SIX MINUTE WALK Routine 07/25/2024 11:59 AM 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 Malignant neoplasm of upper lobe of right lung (HCC) XR CHEST 1VW PORTABLE Routine 07/21/2024 5:00 AM CDT Lung nodule PHOSPHORUS BLOOD Timed 07/21/2024 2:02 AM CDT Lung nodule MAGNESIUM BLOOD Timed 07/21/2024 2:02 AM CDT Lung nodule CBC W/O DIFFERENTIAL Timed 07/21/2024 2:02 AM CDT Lung nodule BASIC METABOLIC PANEL (CALCIUM TOTAL) Timed 07/21/2024 2:02 AM CDT Lung nodule CBC W AUTO DIFFERENTIAL Routine 07/21/2024 2:02 AM CDT Malignant neoplasm of upper lobe of right lung (HCC) ME FOREHEAD FLAP W/ PRSRV VASC PEDICLE 07/20/2024 4:20 PM CDT Basal cell carcinoma (BCC), unspecified site Case Notes REQUESTING 1530 START Special Needs SUPINE XR CHEST 2VW Routine 07/20/2024 9:49 AM CDT Lung nodule XR CHEST 1VW PORTABLE Routine 07/20/2024 5:20 AM CDT Lung nodule PHOSPHORUS BLOOD Routine 07/20/2024 1:55 AM CDT Malignant neoplasm of upper lobe of right lung (HCC) MAGNESIUM BLOOD Routine 07/20/2024 1:55 AM CDT Malignant neoplasm of upper lobe of right lung (HCC) BASIC METABOLIC PANEL (CALCIUM TOTAL) Routine 07/20/2024 1:55 AM CDT Malignant neoplasm of upper lobe of right lung (HCC) CBC W AUTO DIFFERENTIAL Routine 07/20/2024 1:55 AM CDT Malignant neoplasm of upper lobe of right lung (HCC) XR CHEST 1VW PORTABLE Routine 07/19/2024 5:01 AM CDT Lung nodule PHOSPHORUS BLOOD Routine 07/19/2024 1:49 AM CDT Malignant neoplasm of upper lobe of right lung (HCC) MAGNESIUM BLOOD Routine 07/19/2024 1:49 AM CDT Malignant neoplasm of upper lobe of right lung (HCC) BASIC METABOLIC PANEL (CALCIUM TOTAL) Routine 07/19/2024 1:49 AM CDT Malignant neoplasm of upper lobe of right lung (HCC) CBC W AUTO DIFFERENTIAL Routine 07/19/2024 1:49 AM CDT Malignant neoplasm of upper lobe of right lung (HCC) HEMODIALYSIS INPATIENT Routine 07/18/2024 2:49 PM CDT HEPATITIS B SURFACE ANTIBODY QUANT STAT 07/18/2024 9:23 AM CDT HEPATITIS B SURFACE ANTIGEN W RFLX CONFIRMATION STAT 07/18/2024 9:23 AM CDT XR CHEST 1VW PORTABLE STAT 07/18/2024 7:27 AM CDT Malignant neoplasm of upper lobe of right lung (HCC) XR CHEST 1VW PORTABLE Routine 07/18/2024 4:42 AM CDT Malignant neoplasm of upper lobe of right lung (HCC) PHOSPHORUS BLOOD Routine 07/18/2024 1:45 AM CDT Malignant neoplasm of upper lobe of right lung (HCC) MAGNESIUM BLOOD Routine 07/18/2024 1:45 AM CDT Malignant neoplasm of upper lobe of right lung (HCC) BASIC METABOLIC PANEL (CALCIUM TOTAL) Routine 07/18/2024 1:45 AM CDT Malignant neoplasm of upper lobe of right lung (HCC) CBC W AUTO DIFFERENTIAL Routine 07/18/2024 1:45 AM CDT Malignant neoplasm of upper lobe of right lung (HCC) XR CHEST 1VW PORTABLE STAT 07/17/2024 4:53 PM CDT Lung nodule PATHOLOGY TISSUE Routine 07/17/2024 3:48 PM CDT Malignant neoplasm of upper lobe of right lung (HCC) ENDOTRACHEAL TUBE NOTE Routine 07/17/2024 3:21 PM CDT ME THORACOSCOPY W/LOBECTOMY 07/17/2024 2:15 PM CDT Malignant neoplasm of upper lobe of left lung (HCC) Case Notes PATIENT IS IN A NURSING SRINIVAS: [phone] ([facility]) Special Needs SUPINE, ENDO VIDEO CART, BANKS BAG TYPE + SCREEN PANEL SAL 07/17/2024 1 0:41 AM CDT CBC W/O DIFFERENTIAL STAT 07/17/2024 10:41 AM CDT Pre-op testing PHOSPHORUS BLOOD STAT 07/17/2024 10:4 1 AM CDT Pre-op testing MAGNESIUM BLOOD STAT 07/17/2024 10:41 AM CDT Pre-op testing BASIC METABOLIC PANEL (CALCIUM TOTAL) STAT 07/17/2024 10:41 AM CDT Pre-op testing from Last 3 Months Results * SIX MINUTE WALK (07/25/2024 11:59 AM 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 On the Maite scale at baseline, reported dyspnea was 0 and fatigue was 0.5. ??At the end of the study, the Maite reported dyspnea was 0 and fatigue was 1. The patient reported rib soreness, and oxygen saturation remained above 96% throughout the test. IMPRESSION: 1. Total 6 minute walk distance is 324 meters, which is above the lower limit of normal of 318 meters for this patient. 2. There is no available study for comparison. Hank Sanchez MD Pulmonary & Critical Care Fellow Division of Pulmonary, Critical Care, and Sleep Medicine [facility] I have reviewed this study and agree with the interpretation by the [employer]. Satish Mcginnis M.D. [employer] [facility] Division of Pulmonary, Critical Care and Sleep Medicine [facility] Narrative Satish Mcginnis MD - 07/25/2024 11:59 AM 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 Hank Herndon MD ? 07/26/2024 ??5:36 AM Ben Mccormack MD RESPIRATORY THERAPY ORDERABLES * XR Chest 1Vw Portable (07/21/2024 5:00 AM CDT) Only the most recent of6 resultswithin the time period is included. Anatomical Region Laterality Modality Chest Digital Radiogra phy 07/22/2024 2:53 PM 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 Impressions 07/22/2024 2:54 PM 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 IMPRESSION: Unchanged right internal jugular central venous catheter terminating in the right atrium. Stable cardiomediastinal silhouette. Mild increase left upper lung consolidation. There is left upper lobe partial resection.. Unchanged right and improving left pleural effusions with associated atelectasis. No pneumothorax. Soft tissue gas is again seen along the left chest wall. > Interpreting Provider: Augie Slater MD on 07/22/2024 2:54 PM Narrative 07/22/2024 2:54 PM 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 PROCEDURE: ??XR CHEST 1VW PORTABLE DATE/TIME OF EXAM: ??07/21/2024 5:07 AM CLINICAL INFORMATION: None relevant/not provided if blank. Indication: R91.1: Lung nodule Additional History: COMPARISON: 07/20/2024. Procedure Note Augie Slater MD - 07/22/2024 PROCEDURE: XR CHEST 1VW PORTABLE DATE/TIME OF EXAM: 07/21/2024 5:07 AM CLINICAL INFORMATION: None relevant/not provided if blank. Indication: R91.1: Lung nodule Additional History: COMPARISON: 07/20/2024. IMPRESSION: Unchanged right internal jugular central venous catheter terminating inthe right atrium. Stable cardiomediastinal silhouette. Mild increase left upper lung consolidation. There is left upper lobe partial resection.. Unchangedright and improving left pleural effusions with associated atelectasis. No pneumothorax. Soft tissue gas is again seen along the left chest wall. > Interpreting Provider: Augie Slater MD on 07/22/2024 2:54 PM Augustine Jimenez MD DIAGNOSTIC IM AGING ORDERABLES * (ABNORMAL) CBC W AUTO DIFFERENTIAL (07/21/2024 2:02 AM T) Only the most recent of4 resultswithin the time period is included. WBC 8.1 4.0 - 10.7 x10E9/L 07/21/2024 2:29 AM [facility] RBC Count 3.21(L) 4.30 - 5.80 x10E12/L 07/21/2024 2:29 AM [facility] Hemoglobin 10.4(L) 13.3 - 17.5 g/dL 07/21/2024 2:29 AM [facility] Hematocrit 32.3(L) 38.7 - 51.1 % 07/21/2024 2:29 AM [facility] MCV 100.6(H) 80.0 - 98.0 fL 07/21/2024 2:29 AM [facility] MCH 32.4 26.7 - 33.6 pg 07/21/2024 2:29 AM [facility] MCHC 32.2 31.7 - 36.3 g/dL 07/21/2024 2:29 AM [facility] RDW-CV 13.8 11.3 - 14.8 % 07/21/2024 2:29 AM [facility] Platelet Count 184 150 - 420 x10E9/L 07/21/2024 2:29 AM [facility] MPV 9.6 7.8 - 11.4 fL 07/21/2024 2:29 AM [facility] Neutrophil % 69.8 41.0 - 74.0 % 07/21/2024 2:29 AM [facility] Lymphocyte % 14.2(L) 17.0 - 47.0 % 07/21/2024 2:29 AM [facility] Monocyte % 7.9 3.0 - 11.0 % 07/21/2024 2:29 AM [facility] Eosinophil % 7.4(H) 0.0 - 7.0 % 07/21/2024 2:29 AM [facility] Basophil % 0.5 0.0 - 1.6 % 07/21/2024 2:29 AM [facility] Immature Granulocytes % 0.2 0.0 - 1.0 % 07/21/2024 2:29 AM [facility] Neutrophil Absolute 5.67 1.60 - 7.50 x10E9/L 07/21/2024 2:29 AM [facility] Lymphocyte Absolute 1.15 1.00 - 4.40 x10E9/L 07/21/2024 2:29 AM [facility] Monocyte Absolute 0.64 0.15 - 1.00 x10E9/L 07/21/2024 2:29 AM [facility] Eosinophil Absolute 0.60 0.00 - 0.60 x10E9/L 07/21/2024 2:29 AM [facility] Basophil Absolute 0.04 0.00 - 0.13 x10E9/L 07/21/2024 2:29 AM [facility] Blood BLOOD SPECIMEN / Unknown Lab Venipuncture / Unknown 07/21/2024 2:02 AM CDT 07/21/2024 2:25 AM CDT Augustine Jimenez MD LAB - HEMATOL OGY ORDERABLES [facility] [address] [place] [address], [place] [phone] * (ABNORMAL) CBC W/O DIFFERENTIAL (07/21/2024 2:02 AM CDT) Only the most recent of2 resultswithin the time period is included. [facility] WBC 8.1 4.0 - 10.7 x10E9/L 07/21/2024 2:29 AM [facility] RBC Count 3.21(L) 4.30 - 5.80 x10E12/L 07/21/2024 2:29 AM [facility] Hemoglobin 10.4(L) 13.3 - 17.5 g/dL 07/21/2024 2:29 AM [facility] Hematocrit 32.3(L) 38.7 - 51.1 % 07/21/2024 2:29 AM [facility] MCV 100.6(H) 80.0 - 98.0 fL 07/21/2024 2:29 AM [facility] MCH 32.4 26.7 - 33.6 pg 07/21/2024 2:29 AM [facility] MCHC 32.2 31.7 - 36.3 g/dL 07/21/2024 2:29 AM [facility] RDW-CV 13.8 11.3 - 14.8 % 07/21/2024 2:29 AM [facility] Platelet Count 184 150 - 420 x10E9/L 07/21/2024 2:29 AM [facility] MPV 9.6 7.8 - 11.4 fL 07/21/2024 2:29 AM [facility] Blood BLOOD SPECIMEN / Unknown Lab Venipuncture / Unknown 07/21/2024 2:02 AM CDT 07/21/2024 2:25 AM CDT Augustine Jimenez MD LAB - HEMATOL OGY ORDERABLES [facility] [address] [place] [address], [place] [phone] * (ABNORMAL) BASIC METABOLIC PANEL (CALCIUM TOTAL) (07/21/2024 2:02 AM CDT) Only the most recent of5 resultswithin the time period is included. BUN 58(H) 7 - 26 mg/dL 07/21/2024 2:49 AM [facility] Creatinine 10.50(H) 0.71 - 1.16 mg/dL 07/21/2024 2:49 AM [facility] Sodium 139 136 - 145 mmol/L 07/21/2024 2:49 AM [facility] Potassium 4.3 3.5 - 4.5 mmol/L 07/21/2024 2:49 AM [facility] Chloride 101 98 - 107 mmol/L 07/21/2024 2:49 AM [facility] CO2 24 22 - 29 mmol/L 07/21/2024 2:49 AM [facility] Glucose 163(H) 70 - 99 mg/dL 07/21/2024 2:49 AM [facility] Calcium 8.6 8.4 - 10.2 mg/dL 07/21/2024 2:49 AM [facility] Anion Gap 14 6 - 16 07/21/2024 2:49 AM [facility] BUN/Creatinine Ratio 6(L) 7 - 23 07/21/2024 2:49 AM [facility] Osmolality Calculated 308(H) 275 - 295 mOsm/kg 07/21/2024 2:49 AM [facility] eGFR by CKD-EPI 5(L) >=90 mL/min/1.7 3 m2 07/21/2024 2:49 AM [facility] Blood BLOOD SPECIMEN / Unknown Lab Venipuncture / Unknown 07/21/2024 2:02 AM CDT 07/21/2024 2:23 AM T Augustine Jimenez MD LAB - MEDICAL DERMATOLOGIST RY ORDERABLES [facility] [address] [place] [address], [place] [phone] * (ABNORMAL) PHOSPHORUS BLOOD (07/21/2024 2:02 AM CDT) Only the most recent of5 resultswithin the time period is included. Phosphorus 6.7(H) 2.8 - 5.1 mg/dL 07/21/2024 2:49 AM [facility] Blood BLOOD SPECIMEN / Unknown Lab Venipuncture / Unknown 07/21/2024 2:02 AM CDT 07/21/2024 2:23 AM CDT Augustine Jimenez MD LAB - MEDICAL DERMATOLOGIST RY ORDERABLES [address] [address], [place] [phone] * MAGNESIUM BLOOD (07/21/2024 2:02 AM CDT) Only the most recent of5 resultswithin the time period is included. Magnesium 2.5 1.6 - 2.6 mg/dL 07/21/2024 2:49 AM CDT [facility] Blood BLOOD SPECIMEN / Unknown Lab Venipuncture / Unknown 07/21/2024 2:02 AM CDT 07/21/2024 2:23 AM CDT Augustine Jimenez MD LAB - MEDICAL DERMATOLOGIST RY ORDERABLES [address] [address], [place] [phone] * XR Chest 2Vw (07/20/2024 9:49 AM CDT) Anatomical Region Laterality Modality Chest Digital Radiogra phy 07/20/2024 4:00 PM CDT Impressions 07/20/2024 4:01 PM CDT IMPRESSION: *Similar right IJ central venous catheter terminating in the right atrium. Stable cardiomediastinal silhouette. Improving left upper lung postoperative opacities status post left upper lobe wedge resection. Similar right and improving left pleural effusions with associated atelectasis. No pneumothorax. Soft tissue gas is again seen along the left chest wall. > Interpreting Provider: Teddy Johnston MD on 07/20/2024 4:01 PM Narrative 07/20/2024 4:01 PM CDT PROCEDURE: ??XR CHEST 2VW DATE/TIME OF EXAM: ??07/20/2024 9:49 AM CLINICAL INFORMATION: None relevant/not provided if blank. Indication: R91.1: Lung nodule Additional History: COMPARISON: 07/20/2024 at 5:00 AM Procedure Note Teddy Johnston MD - 07/20/2024 PROCEDURE: XR CHEST 2VW DATE/TIME OF EXAM: 07/20/2024 9:49 AM CLINICAL INFORMATION: None relevant/not provided if blank. Indication: R91.1: Lung nodule Additional History: COMPARISON: 07/20/2024 at 5:00 AM IMPRESSION: *Similar right IJ central venous catheter terminating in the rightatrium. Stable cardiomediastinal silhouette. Improving left upper lung postoperative opacities status post left upper lobe wedge resection. Similar right and improving left pleural effusions with associated atelectasis. No pneumothorax. Soft tissue gas is again seen along theleft chest wall. > Interpreting Provider: Teddy Johnston MD on 07/20/2024 4:01 PM Augustine Jimenez MD DIAGNOSTIC IM AGING ORDERABLES * HEPATITIS B SURFACE ANTIBODY QUANT (07/18/2024 9:23 AM CDT) Hepatitis B Virus Surface Antibody 3.95 IU/L 07/20/2024 12:43 PM CDT [facility] ([facility]) Comment: The anti-HBs is less than 10 IU/L and is therefore negative. There is no evidence of recovery from hepatitis B infection or evidence of antibody response to HBV vaccination. An anti-HBs result greater than or equal to 10 IU/L indicates immunity. Reference Interval: anti-HBs 9.99 IU/L or less ....... Negative 10.00 IU/L or greater ... Positive Results greater than 1,000.00 IU/L are reported as greater than 1,000.00 IU/L. This assay should not be used for blood donor screening, associated re-entry protocols, or for screening Human Cell, Tissues and Cellular and Tissue-Based Products (HCT/P). Performed By: [facility] [address] [place] [id number] Dean: Mahendra Duron MD, PhD CLIA Number: [id number] Blood BLOOD SPECIMEN / Unknown Lab Venipuncture / Unknown 07/18/2024 9:23 AM CDT 07/18/2024 9:49 AM CDT Bebo Mac MD LAB - SEROLOGY ORDER [facility] ([facility]) [address] * HEPATITIS B SURFACE ANTIGEN W RFLX CONFIRMATION (07/18/2024 9:23 AM CDT) Hepatitis B Virus Surface Antigen Non-reacti ve Non-reacti ve 07/18/2024 10:[address] [facility] Blood BLOOD SPECIMEN / Unknown Lab Venipuncture / Unknown 07/18/2024 9:23 AM CDT 07/18/2024 9:49 AM CDT Bebo Mac MD LAB - CHEMISTRY ORDE DANUTA Performing Organization Address [facility]/ZIP Co de Phone Number [address] [address], [place] [phone] * PATHOLOGY TISSUE (07/17/2024 3:48 PM CDT) Case Report Surgical Pathology Report ? Case: [id number] ? Authorizing Provider: ??Augustine Jimenez, ??Collected: ? 07/17/2024 03:48 PM ? MD ? Ordering Location: ? [facility] ?Received: ?07/18/2024 04:46 AM ? Pathologist: ? Rene Chavis, ? Specimens: ?? A) - Lung Resect Seg, Left upper lobe wedge. ? B) - Margin, True margin. ? C) - Lymph Node, Station 5 lymph node. ? D) - Lymph Node, Station 6 lymph node. ? E) - Lymph Node, Station 3 lymph node. ? F) - Lymph Node, Station 10 lymph node. ? 8:[address] [facility] Final Diagnosis Lung, left upper lobe, wedge resection (A): - Pulmonary adenocarcinoma, see synoptic report - One benign intraparenchymal lymph node, negative for carcinoma (0/1) Lung, true margin, biopsy (B): - Negative for carcinoma Lymph node, station 5, excision (C): - Two benign lymph nodes, negative for carcinoma (0/2) Lymph node, station 6, excision (D): - One benign lymph node, negative for carcinoma (0/1) Lymph node, station 3, excision (E): - One benign lymph node, negative for carcinoma (0/1) Lymph node, station 10, excision (F): - Two benign lymph nodes, negative for carcinoma (0/2) 8:[address] [facility] Preliminary result electronically signed by Rene Chavis MD on 07/21/2024 at 5:00 PM Microscopic Description and Comment Additional immunostains for TTF-1 on blocks A2 and A3 were performed, and both stains are positive in malignant cells. 8:[address] [facility] Clinical History The patient is a 64 year-old male with adenocarcinoma of the left upper lobe. 8:[address] [facility] Intraoperative Consultation A) Left upper lobe wedge -piece of lung tissue 10 x 8 x 4 cm, stapled along edges, area of pleural puckering 2.5 x 2.0 cm corresponding to subpleural firm white tumor 3.0 x 1.8 x 1.1 cm. Margins grossly clear. Ed Transporter section of tumor frozen (FSA1). Intraoperative diagnosis: FSA1 left upper lobe lung wedge: - Adenocarcinoma. Reported to Dr. Jimenez 4:[address] Satish Riggs MD B) Left lung true margin -thin piece worley tissue 0.7 x 0.2 x 0.2 cm, entirely frozen FSB1. Intraoperative diagnosis: FSB1 left lobe true margin: - Negative for malignancy. Reported to Dr. Jimenez 4:[address] Satish Riggs MD 4 8:[address] [facility] Gross Description The requisition and specimen(s) are identified with the patient's name Andrey Giron and received in formalin from intraoperative consultation, specimen A , is previously inked, sectioned and sampled consistent with the intraoperative note. The pleural surface is patchy from red-purple and dusky to pale pink with diffuse areas of anthracosis. The staple lines are removed and the parenchymal resection margin is inked blue. Sectioning shows the true measurements of the mass are 3.2 x 1.9 x 1.7 cm. The cut surface of the mass is worley-white, firm with anthracotic pigment and scalloped borders. The mass abuts the pleural surface and is located 1.5 cm from the blue inked parenchymal margin. There is a multiloculated cystic cavity adjacent to the mass that also abuts the pleura, measuring 1.7 x 1.0 x 0.5 cm, and is located 0.5 cm from the mass. A single intraparenchymal lymph node candidate is identified, measuring 0.3 x 0.2 x 0.2, with worley-ling, glistening cut surfaces with anthracotic pigment. The frozen section remnant of FSA1 is respectively submitted in cassette A1 and additional inside sales account representative sections are submitted as follows: A2, mass with nearest inked parenchymal margin; A3, mass to pleural cystic cavity; A4, mass abutting pleura; A5, additional pleural cystic cavity; A6, lymph node candidate, bisected. Received in formalin from intraoperative consultation, specimen B , is sampled consistent with the intraoperative note. The frozen section remnant of FSB1 is respectively submitted in cassette B1. Received in formalin, specimen C is a 1.2 x 1.2 x 0.5 cm excision of worley-yellow, lobulated adipose tissue with 2 purple-black lymph node candidates, measuring 0.8 and 1.0 cm in greatest dimension. The specimen is submitted entirely as cassette C1. Received in formalin, specimen D is a 0.8 x 0.5 x 0.4 cm excision of worley-yellow, lobulated adipose tissue with cautery and purple-black soft tissue (lymph node candidate) measuring 0.3 cm greatest dimension. The specimen is submitted in toto as cassette D1. Received in formalin, specimen E is a 0.8 x 0.5 x 0.4 cm excision of worley-yellow, lobulated adipose tissue with a purple-black lymph node candidate, measuring 0.4 cm in greatest dimension. The specimen submitted in toto as cassette E1. Received in formalin, specimen F is a 0.3 x 1.0 x 0.5 cm aggregate of worley-yellow, lobulated adipose tissue with cautery and multiple purple-black lymph node candidates, ranging from 0.2 to 0.4 cm in greatest dimension. The specimen is submitted in toto as cassette F1. AL 4 8:[address] [facility] Pathologist Location at [facility] 4 8:[address] [facility] Disclaimer The performance characteristics of all immunohistochemical and indirect immunofluorescence stains (if any) cited in this report were determined by the Histopathology Laboratory of [facility]. Some of these tests were developed by our own laboratory and have not been cleared or approved by the US Food and Drug Administration. The FDA does not require this test to go through premarket FDA review. These tests are used for clinical purposes. They should not be regarded as investigational or for research. This laboratory is certified under the Clinical Laboratory Improvement Amendments (CLIA) as qualified to perform high complexity clinical laboratory testing. This case has been personally reviewed and interpreted by the attending (teaching) pathologist. 8:[address] [facility] Synoptic Report LUNG LUNG - All Specimens 8th Edition - Protocol posted: 06/09/2022 SPECIMEN ?? Procedure: ?Wedge resection ?? Specimen Laterality: ?Left TUMOR ?? Tumor Focality: ?Single focus ?? Tumor Site: ?Upper lobe of lung ?? Tumor Size: ? Total Tumor Size (size of entire tumor): ?Greatest Dimension (Centimeters): 3.2 cm ?? Histologic Type: ?Invasive acinar adenocarcinoma ? Histologic Patterns Present: ?Acinar: 70% ? Histologic Patterns Present: ?Solid: 15% ? Histologic Patterns Present: ?Micropapillary: 15% ?? Spread Through Air Spaces (PEACE): ?Not identified ?? Visceral Pleura Invasion: ?Present ?? Direct Invasion of Adjacent Structures: ?Not applicable (no adjacent structures present) ?? Treatment Effect: ?No known presurgical therapy ?? Lymphovascular Invasion: ?Present MARGINS ?? Margin Status for Invasive Carcinoma: ?All margins negative for invasive carcinoma ? Closest Margin(s) to Invasive Carcinoma: ?Parenchymal ? Distance from Invasive Carcinoma to Closest Margin: ?1.5 cm ?? Margin Status for Non-Invasive Tumor: ?All margins negative for non-invasive tumor REGIONAL LYMPH NODES ?? Lymph Node(s) from Prior Procedures: ?No known prior lymph node sampling performed ?? Regional Lymph Node Status: ? : ?All regional lymph nodes negative for tumor ? Number of Lymph Nodes Examined: ?7 ? Brian Site(s) Examined: ?5: Subaortic / aortopulmonary (AP) / AP window ? Brian Site(s) Examined: ?6: Para-aortic (ascending aorta or phrenic) ? Brian Site(s) Examined: ?10L: Hilar ? Brian Site(s) Examined: ?Left: Station 3 and intraparenchymal lymph nodes PATHOLOGIC STAGE CLASSIFICATION (pTNM, AJCC 8th Edition) ?? Reporting of pT, pN, and (when applicable) pM categories is based on information available to the pathologist at the time the report is issued. As per the AJCC (Chapter 1, 8th Ed.) it is the managing physician? s responsibility to establish the final pathologic stage based upon all pertinent information, including but potentially not limited to this pathology report. ?? pT Category: ?pT2a ?? pN Category: ?pN0 ADDITIONAL FINDINGS ?? Additional Findings: ?Emphysema 4 8:[address] [facility] Embedded Images 4 8:[address] [facility] Biopsy, Excision RESECTED LUNG SPECIMEN / Unknown 07/17/2024 3:48 PM CDT 07/18/2024 4:46 AM CDT Comment:Pre-op diagnosis: Malignant neoplasm of upper lobe of left lung Biopsy, Excision (Margin) 07/17/2024 3:48 PM CDT 07/18/2024 4:46 AM CDT Comment:Pre-op diagnosis: Malignant neoplasm of upper lobe of left lung Biopsy, Excision ENTIRE LYMPH NODE / Unknown 07/17/2024 4:01 PM CDT 07/18/2024 4:46 AM CDT Comment:Pre-op diagnosis: Malignant neoplasm of upper lobe of left lung Biopsy, Excision ENTIRE LYMPH NODE / Unknown 07/17/2024 4:02 PM CDT 07/18/2024 4:46 AM CDT Comment:Pre-op diagnosis: Malignant neoplasm of upper lobe of left lung Biopsy, Excision ENTIRE LYMPH NODE / Unknown 07/17/2024 4:02 PM CDT 07/18/2024 4:46 AM CDT Comment:Pre-op diagnosis: Malignant neoplasm of upper lobe of left lung Biopsy, Excision ENTIRE LYMPH NODE / Unknown 07/17/2024 4:02 PM CDT 07/18/2024 4:46 AM CDT Comment:Pre-op diagnosis: Malignant neoplasm of upper lobe of left lung Augustine Jimenez MD LAB - PATHOLO GY/CYTOLOGY ORDERABLES Performing Organization Address City/State/[facility] Co de Phone Number [facility] [address] [phone] * ETT LINE PERFORMABLE (07/17/2024 3:21 PM CDT) Narrative Sunny Baeza DO - 07/17/2024 3:21 PM CDT Sunny Baeza DO ? 07/17/2024 ??3:26 PM Endotracheal Tube Placement: ? Patient Location: OR. Intubation Event Date/Time: ??07/17/2024 2:53 PM Procedure: intubation (97990) Procedure Section: ?? Sedation: under general anesthesia. Indications for Airway Management: ??anesthesia Procedure pretreatments used? ??No Induction: standard IV Patient Position: ??supine Mask Ventilation: difficult (eyes sunken, nasal ridge with plastic surgery reconstruction flap). Blade Type: Mati Blade Size: 4 Laryngoscopy View: grade 1 (full cords) Intubation Adjuncts: video laryngoscope, Eschmann introducer and fiberoptic Tube: double lumen Placement: oral Tube type: cuff - inflated Tube Size (FR): 27 Depth of Insertion (CM): 27 Measured From: lips Cuff Inflated With: air Number of Attempts: 1. Ventilation between attempts: Yes. Placement Verified By: direct visualization, bilateral breath sounds, chest auscultation, CO2 monitor and bronchoscope Tube secured with: ??adhesive tape. Dentition unchanged? ??Yes Difficult Airway? ??No. Procedure Start Time: 07/17/2024 2:53 PM. Staff Section ? Anesthesia Provider: Sunny Baeza, DO, Performed the procedure ? Provider #1: Jesse Sauer MD. Additional Comments: Unable to bag mask due to facial/nasal anatomy, intubated with 8.0 ETT and ventilated, used Prezi exchange catheter to swap out to 27fr left sided ZAYDA. Placement confirmed via fiberoptic. Jesse Sauer MD GENERAL ANESTHESIA O RDERABLES * TYPE + SCREEN PANEL (07/17/2024 10:41 AM CDT) Antibody Screen NEG 11:[address] [facility] ABO Rh O POS 07/17/2024 11:[address] [facility] Blood Bank BLOOD SPECIMEN / Unknown Venipuncture / Unknown 07/17/2024 10:41 AM CDT 07/17/2024 10:46 AM CDT Augustine Jimenez MD LAB - BLOOD B ANK ORDERABLES [facility] [address] [place] [address], [place] [phone] from Last 3 Months Advance Directives * Full Code (Latest Code Status on File) Date Activated Date Inactivated Comments 07/17/2024 4:36 PM 07/21/2024 12:15 PM * Full Code Date Activated Date Inactivated Comments 07/17/2024 4:22 PM 07/17/2024 4:36 PM * Full Code Date Activated Date Inactivated Comments 05/22/2024 10:48 PM 05/24/2024 10:14 AM Care Teams Coal Handler Relationship Specialty Start Date End Date None, Physician [address] [place] [address] PCP - General 04/10/24
--- OUTSIDE RECORDS SUMMARY | 2024-09-24 06:03 | XMS_ITS | Referral Summary ---
Author Organization [facility] Address [address] [facility] [place] [address] Care Team Providers Care Basketball Assembler Name Role Phone None, Physician Primary Care Provider Unavailabl e Source Comments [facility],non-owned Affiliates and Associated Physician Practices is amultiple site organization consisting of ambulatory clinics and hospital sitesin [place], [place], [place] and [place]. This disclosure is being madepursuant to the Care Everywhere program and may not contain all information available regarding this patient. Last updated 18.[facility] Encounters Date Type Department Care Team Description 07/25/2024 Travel 07/25/2024 11:01 AM CORPORATE EVENT PLANNER - 07/25/2024 11:59 PM CORPORATE EVENT PLANNER Hospital Encounter [facility] PFT [address] [place] [address] Ben Mccormack MD Discharge Disposition: Home or Self Care 07/24/2024 Orders Only [facility] - Cardiothoracic Surgery [address] [facility], [place] [address] Augustine Jimenez MD Malignant neoplasm of upper lobe of right lung (HCC) 07/17/2024 9:08 AM CDT - 07/21/2024 11:14 AM CDT Hospital Encounter [facility] 8N ACUTE [address] [place] [address] Augustine Jimenez MD Surgery General Discharge Disposition: Home or Self Care 07/20/2024 4:45 PM CDT Anesthesia Event [facility] [address] [place] [phone] Sampson Soto DO Martha Sanders, RESOURCING ADVISOR-SOAPING MACHINE BACK TENDER 07/20/2024 4:21 PM CDT - 07/20/2024 6:06 PM CDT Surgery [facility] [address] [place] [phone] Ritesh Mensah MD DIVISION AND INSET PARAMEDIAN FOREHEAD FLAP 07/17/2024 Travel 07/17/2024 12:30 PM CDT - 07/17/2024 2:59 PM CDT Surgery [facility] [address] [place] [phone] Augustine Jimenez MD Video-assisted thoracoscopic Left upper lobe Lingular sparing Segmentectomy 07/17/2024 2:36 PM CDT Anesthesia Event [facility] [address] [place] [phone] Jesse Sauer MD Kong, Daniel, DO 07/03/[address] [facility] - General Surgery [address] [place] [address], [place] [phone] Augustine Jimenez MD Malignant neoplasm of lung, unspecified laterality, unspecified part of lung (HCC) 07/03/[address] [facility] - Cardiothoracic Surgery [address] [place] [address], [place] [phone] Augustine Jimenez MD Appointment (New surgery) 07/03/2024 Telephone [facility] - Surgery [facility], [address] [place] [address] Blair Cedeno MA Late Cancel 06/26/2024 1:00 PM CDT Procedure visit [facility] - Pulmonology [address] [place] [address], [address] [place] [address] Lung nodule ; Malignant neoplasm of upper lobe of right lung (HCC) from Last 3 Months Allergies No known active allergies Medications * [...] (BCC) of left nasal sidewal l 05/22/2024 Social History Tobacco Use Types Packs/Day Years [...] and heating? Not hard at all 05/23/2024 [place] of Occupat ional Health - Occupational Stress [...] place to sleep or slept in a jail (including now)? No 05/23/2024 Sex and Gender [...] Mass Index 30.59 07/17/2024 10:44 AM CDT Functional Status Functional Status Response Date of Assess ment Is person deaf or have serious hearing difficult y? No 07/17/2024 Is person blind or have serious difficulty seein g? No 07/17/2024 Does person have serious dif ficulty walking/climbing stairs? No 07/17/2024 Does person have difficulty dressing/bathing? No 07/17/2024 Does person have difficulty doing errands alone? No 07/17/2024 Cognitive Status Response Date of Assessm ent Does person have difficulty concentrating/remembering/making decisions? No 07/17/2024 Plan of Treatment Upcoming Encounters Date Type Department Care Team (Late st Contact Info) Description 10/16/2024 1:30 PM CORPORATE EVENT PLANNER Office Visit [facility] - ENT [address] [place] [address], [place] [address] Ritesh Mensah MD [address] [place] [address] DE[place] [address] Procedures Procedure Name Priority Date/Time Associated Diagnosis Comments SIX MINUTE WALK Routine 07/25/2024 11:59 AM CORPORATE EVENT PLANNER Malignant neoplasm of upper lobe of right [...] of upper lobe of right lung (HCC) [place] FOREHEAD FLAP W/ PRSRV VASC PEDICLE 07/20/2024 [...] TUBE NOTE Routine 07/17/2024 3:21 PM CDT [place] THORACOSCOPY W/LOBECTOMY 07/17/2024 2:15 PM CDT Malignant neoplasm of upper lobe of left lung (HCC) Case Notes PATIENT IS IN A NURSING SRINIVAS: [phone] ([facility] Special Needs SUPINE, ENDO VIDEO CART, BANKS [...] * SIX MINUTE WALK (07/25/2024 11:59 AM CORPORATE EVENT PLANNER) Impressions Satish Mcginnis MD - 07/25/2024 11:59 AM CORPORATE EVENT PLANNER [facility] DEPARTMENT OF PULMONARY, CRITICAL CARE, AND SLEEP [...] of Pulmonary, Critical Care, and Sleep Medicine [facility] I have reviewed this study and agree with the interpretation by the Set Up Mechanic Automatic Line. Satish Mcginnis M.D. Power Brake Rebuilder of Internal Medicine Division of Pulmonary, Critical Care and Sleep Medicine [facility] Narrative Satish Mcginnis MD - 07/25/2024 11:59 AM CORPORATE EVENT PLANNER Hank Herndon MD ? 07/26/2024 ??5:36 AM Ben Mccormack MD RESPIRATORY THERAPY ORDERABLES * XR Chest 1Vw Portable (07/21/2024 5:00 AM CDT) Only the most recent of6 resultswithin the time period is included. Anatomical Region Laterality Modality Chest Digital Radiogra phy 07/22/2024 2:53 PM CORPORATE EVENT PLANNER Impressions 07/22/2024 2:54 PM CORPORATE EVENT PLANNER IMPRESSION: Unchanged right internal jugular central venous [...] 07/22/2024 2:54 PM Narrative 07/22/2024 2:54 PM CORPORATE EVENT PLANNER PROCEDURE: ??XR CHEST 1VW PORTABLE DATE/TIME OF [...] CBC W AUTO DIFFERENTIAL (07/21/2024 2:02 AM CDT) Only the most recent of4 resultswithin the time period is included. WBC 8.1 4.0 - 10.7 x10E9/L 07/21/2024 2:29 AM CDT [facility] LABORATORY [facility] RBC Count 3.21(L) 4.30 - 5.80 x10E12/L 07/21/2024 2:29 AM [facility] Hemoglobin 10.4(L) 13.3 - 17.5 g/dL 07/21/2024 2:29 AM [facility] Hematocrit 32.3(L) 38.7 - 51.1 % 07/21/2024 2:29 AM [facility] MCV 100.6(H) 80.0 - 98.0 fL 07/21/2024 2:29 AM [facility] MCH 32.4 26.7 - 33.6 pg 07/21/2024 2:29 AM [facility] MCHC 32.2 31.7 - 36.3 g/dL 07/21/2024 2:29 AM [facility] RDW-CV 13.8 11.3 - 14.8 % 07/21/2024 2:29 AM [facility] Platelet Count 184 150 - 420 x10E9/L 07/21/2024 2:29 AM [facility] MPV 9.6 7.8 - 11.4 fL 07/21/2024 2:29 AM [facility] Neutrophil % 69.8 41.0 - 74.0 % 07/21/2024 2:29 AM [facility] Lymphocyte % 14.2(L) 17.0 - 47.0 % 07/21/2024 2:29 AM [facility] Monocyte % 7.9 3.0 - 11.0 % 07/21/2024 2:29 AM [facility] Eosinophil % 7.4(H) 0.0 - 7.0 % 07/21/2024 2:29 AM [facility] Basophil % 0.5 0.0 - 1.6 % 07/21/2024 2:29 AM [facility] Immature Granulocytes % 0.2 0.0 - 1.0 % 07/21/2024 2:29 AM [facility] Neutrophil Absolute 5.67 1.60 - 7.50 x10E9/L 07/21/2024 2:29 AM [facility] Lymphocyte Absolute 1.15 1.00 - 4.40 x10E9/L 07/21/2024 2:29 AM [facility] Monocyte Absolute 0.64 0.15 - 1.00 x10E9/L 07/21/2024 2:29 AM [facility] Eosinophil Absolute 0.60 0.00 - 0.60 x10E9/L 07/21/2024 2:29 AM [facility] Basophil Absolute 0.04 0.00 - 0.13 x10E9/L 07/21/2024 2:29 AM [facility] Blood BLOOD SPECIMEN / Unknown Lab Venipuncture / Unknown 07/21/2024 2:02 AM CDT 07/21/2024 2:25 AM CDT Augustine Jimenez MD LAB - HEMATOL OGY ORDERABLES [facility] [address] [place] [address], [facility] [phone] * (ABNORMAL) CBC W/O DIFFERENTIAL (07/21/2024 2:02 AM CDT) Only the most recent of2 resultswithin the time period is included. WBC 8.1 4.0 - 10.7 x10E9/L 07/21/2024 2:29 AM [facility] RBC Count 3.21(L) 4.30 - 5.80 x10E12/L 07/21/2024 2:29 AM [facility] Hemoglobin 10.4(L) 13.3 - 17.5 g/dL 07/21/2024 2:29 AM [facility] Hematocrit 32.3(L) 38.7 - 51.1 % 07/21/2024 2:29 AM [facility] MCV 100.6(H) 80.0 - 98.0 fL 07/21/2024 2:29 AM [facility] MCH 32.4 26.7 - 33.6 pg 07/21/2024 2:29 AM [facility] MCHC 32.2 31.7 - 36.3 g/dL 07/21/2024 2:29 AM [facility] RDW-CV 13.8 11.3 - 14.8 % 07/21/2024 2:29 AM [facility] Platelet Count 184 150 - 420 x10E9/L 07/21/2024 2:29 AM [facility] MPV 9.6 7.8 - 11.4 fL 07/21/2024 2:29 AM [facility] Blood BLOOD SPECIMEN / Unknown Lab Venipuncture / Unknown 07/21/2024 2:02 AM CDT 07/21/2024 2:25 AM CDT Augustine Jimenez MD LAB - HEMATOL OGY ORDERABLES [facility] [address] [place] [address], [facility] [phone] * (ABNORMAL) BASIC METABOLIC PANEL (CALCIUM TOTAL) (07/21/2024 2:02 AM T) Only the most recent of5 resultswithin the time period is included. BUN 58(H) 7 - 26 mg/dL 07/21/2024 2:49 AM [facility] Creatinine 10.50(H) 0.71 - 1.16 mg/dL 07/21/2024 2:49 AM [facility] Sodium 139 136 - 145 mmol/L 07/21/2024 2:49 AM [facility] Potassium 4.3 3.5 - 4.5 mmol/L 07/21/2024 2:49 AM [facility] Chloride 101 98 - 107 mmol/L 07/21/2024 2:49 AM [facility] CO2 24 22 - 29 mmol/L 07/21/2024 2:49 AM [facility] Glucose 163(H) 70 - 99 mg/dL 07/21/2024 2:49 AM [facility] Calcium 8.6 8.4 - 10.2 mg/dL 07/21/2024 2:49 AM [facility] Anion Gap 14 6 - 16 07/21/2024 2:49 AM [facility] BUN/Creatinine Ratio 6(L) 7 - 23 07/21/2024 2:49 AM [facility] Osmolality Calculated 308(H) 275 - 295 mOsm/kg 07/21/2024 2:49 AM CDT [facility] eGFR by CKD-EPI 5(L) >=90 mL/min/1.7 3 m2 07/21/2024 2:49 AM CDT [facility] Blood BLOOD SPECIMEN / Unknown Lab Venipuncture / Unknown 07/21/2024 2:02 AM CDT 07/21/2024 2:23 AM CDT Augustine Jimenez MD LAB - MASKING MACHINE FEEDER RY ORDERABLES [address] [address], [facility] [phone] * (ABNORMAL) PHOSPHORUS BLOOD (07/21/2024 2:02 AM CDT) Only the most recent of5 resultswithin the time period is included. Phosphorus 6.7(H) 2.8 - 5.1 mg/dL 07/21/2024 2:49 AM CDT [facility] Blood BLOOD SPECIMEN / Unknown Lab Venipuncture / Unknown 07/21/2024 2:02 AM CDT 07/21/2024 2:23 AM CDT Augustine Jimenez MD LAB - MASKING MACHINE FEEDER RY ORDERABLES [address] [address], [facility] [phone] * MAGNESIUM BLOOD (07/21/2024 2:02 AM CDT) Only the most recent of5 resultswithin the time period is included. Magnesium 2.5 1.6 - 2.6 mg/dL 07/21/2024 2:49 AM CDT [facility] Blood BLOOD SPECIMEN / Unknown Lab Venipuncture / Unknown 07/21/2024 2:02 AM CDT 07/21/2024 2:23 AM CDT Augustine Jimenez MD LAB - MASKING MACHINE FEEDER RY ORDERABLES [facility] [address] [place] [address], [facility] [phone] * XR Chest 2Vw (07/20/2024 9:49 AM [...] SURFACE ANTIBODY QUANT (07/18/2024 9:23 AM CDT) Pathologist [facility] Hepatitis B Virus Surface Antibody 3.95 IU/L 07/20/2024 12:43 PM CDT [facility] ([facility]) Comment: The anti-HBs is less than [...] Cellular and Tissue-Based Products (HCT/P). Performed By: [facility] [[email or web address]] [facility] [address] [place] [address] Chief Scientific Officer: Mahendra Duron MD, PhD CLIA Number: [id number] Blood BLOOD SPECIMEN / Unknown Lab Venipuncture / Unknown 07/18/2024 9:23 AM CDT 07/18/2024 9:49 AM CDT Bebo Mac MD LAB - SEROLOGY ORDER ELSIE Performing Organization Address [facility]/ZIP Co de Phone Number [facility]) [address] [place] [address] * HEPATITIS B SURFACE ANTIGEN W RFLX CONFIRMATION (07/18/2024 9:23 AM CDT) [facility] Hepatitis B Virus Surface Antigen Non-reacti ve Non-reacti ve 07/18/2024 10:40 AM CDT [facility]ORATORY [facility] Blood BLOOD SPECIMEN / Unknown Lab Venipuncture / Unknown 07/18/2024 9:23 AM CDT 07/18/2024 9:49 AM CDT Bebo Mac MD LAB - CHEMISTRY NELDA TIPTON [facility] [address] [place] [address], [facility] [phone] * PATHOLOGY TISSUE (07/17/2024 3:48 PM CDT) Case Report Surgical Pathology Report ? Case: [id number] ? Authorizing Provider: ??Augustine Jimenez, ??Collected: ? 07/17/2024 03:48 PM ? MD ? Ordering Location: ? [facility] ?Received: ?07/18/2024 04:46 AM ? [...] Lymph Node, Station 10 lymph node. ? 4 8:33 PM [facility] PATHOLOGY LAB Final Diagnosis Lung, left upper [...] benign lymph nodes, negative for carcinoma (0/2) 4 8:33 PM [facility] PATHOLOGY LAB Preliminary result electronically signed by Rene Chavis MD on 07/21/2024 at 5:00 PM Microscopic Description and Comment Additional immunostains for TTF-1 on blocks A2 and A3 were performed, and both stains are positive in malignant cells. 8:33 PM [facility]Y [facility] Clinical History The patient is a 64 year-old male with adenocarcinoma of the left upper lobe. 8:33 PM [facility]Y LAB Intraoperative Consultation A) Left upper lobe wedge -piece of lung tissue 10 x 8 x 4 cm, stapled along edges, area of pleural puckering 2.5 x 2.0 cm corresponding to subpleural firm white tumor 3.0 x 1.8 x 1.1 cm. Margins grossly clear. Filter Pulp Washer section of tumor frozen (FSA1). Intraoperative diagnosis: [...] 4:[address] Satish Riggs MD 8:33 PM [facility] Gross Description The requisition and [...] respectively submitted in cassette A1 and additional representative government relations sections are submitted as follows: A2, mass [...] as cassette F1. AL 4 8:33 PM [facility] PATH[facility] LAB Pathologist Location at [facility] 4 8:33 PM [facility] PATHOLOGY LAB Disclaimer The performance characteristics of all immunohistochemical and indirect immunofluorescence stains (if any) cited in this report were determined by the Histopathology Laboratory of [facility]. Some of these tests were developed by [...] and interpreted by the attending (teaching) pathologist. 4 8:33 PM [facility] Synoptic Report LUNG LUNG - [...] ?? Additional Findings: ?Emphysema 4 8:33 PM [facility] Embedded Images 4 8:33 PM [facility] LAB Biopsy, Excision RESECTED LUNG SPECIMEN [...] Jimenez MD LAB - PATHOLO GY/CYTOLOGY ORDERABLES [facility] [address] [place] [address], [facility] [phone] * ETT LINE PERFORMABLE (07/17/2024 3:21 PM CDT) Narrative Sunny Baeza DO - 07/17/2024 3:21 PM CDT Sunny Baeza DO ? 07/17/2024 ??3:26 PM Endotracheal Tube Placement: ? Patient Location: OR. Intubation Event Date/Time: ??07/17/2024 2:53 PM Procedure: intubation (13126) Procedure Section: ?? Sedation: under general anesthesia. [...] PM. Staff Section ? Anesthesia Provider: Sunny Baeza DO, Performed the procedure ? Provider #1: Jesse Sauer MD. Additional Comments: Unable to bag mask due to facial/nasal anatomy, intubated with 8.0 ETT and ventilated, used cook exchange catheter to swap out to 27fr left sided ZAYDA. Placement confirmed via fiberoptic. Jesse Sauer MD GENERAL ANESTHESIA O RDERABLES * TYPE + SCREEN PANEL (07/17/2024 10:41 AM CDT) Antibody Screen NEG 11:28 AM CDT [facility] BLOOD BANK LAB ABO Rh O POS 07/17/2024 11:28 AM CDT [facility] B[facility]OD BANK LAB Blood Bank BLOOD SPECIMEN / Unknown Venipuncture / Unknown 07/17/2024 10:41 AM CDT 07/17/2024 10:46 AM CDT Augustine Jimenez MD LAB - BLOOD B ANK ORDERABLES [facility] BLOOD [facility]ANK LAB [address] [place] [address], [facility] [phone] from Last 3 Months Advance Directives * Full Code (Latest Code Status on File) Date Activated Date Inactivated Comments 07/17/2024 4:36 PM 07/21/2024 12:15 PM * Full Code Date Activated Date Inactivated Comments 07/17/2024 4:22 PM 07/17/2024 4:36 PM * Full Code Date Activated Date Inactivated Comments 05/22/2024 10:48 PM 05/24/2024 10:14 AM Care Teams Basketball Assembler Relationship Specialty Start Date End Date None, Physician [address] [place] [address] PCP - General 04/10/24
--- OUTSIDE RECORDS SUMMARY | 2024-09-24 06:04 | XMS_ITS | Encounter Summary ---
Author Organization [facility] Address [address] [facility] [place] [address] Care Team Providers Care Luggage Liner Name Role Phone None, Physician Primary Care Provider Unavailabl e Reason for Visit * Reason Onset Date Comments Future Appointment 05/31/2024 Encounter Details Date Type Department Care Team (Late st Contact Info) Description 05/31/2024 Telephone [facility] - ENT [address] [place] [address] Ritesh Mensah MD [address] [facility] [address] DEPT [place] [address] Future Appointment Social History Tobacco Use Types Packs/Day Years Used Date Smoking Tobacco: Every Day Cigarettes Smokeless Tobacco: Never Alcohol Use Standard Drinks/Week Comments Not Currently 0 (1 standard drink = 0.6 oz pur e alcohol) AUDIT-C Answer Date Recorded Q1: How often do you have a drink containing alcohol? Never 05/22/2024 Q2: How many drinks containi ng alcohol do you have on a typical day when you are drinking? Patient does not drink Q3: How often do you have si x or more drinks on one occasion? Never 05/22/2024 Overall Financial Resource Strain (CARDIA) Answe r Date Recorded How hard is it for you to pa y for the very basics like food, housing, medical care, and heating? Not hard at all 05/23/2024 [facility] Wall of Occupat ional Health - Occupational Stress [...] on file Sexual Orientation Not on file documented as of this encounter Functional Status Functional Status Response Date of Assess ment Is person deaf or have serious hearing difficult y? No 05/23/2024 Is person blind or have serious difficulty seein g? No 05/23/2024 Does person have serious dif ficulty walking/climbing stairs? No 05/23/2024 Does person have difficulty dressing/bathing? No 05/23/2024 Does person have difficulty doing errands alone? No 05/23/2024 Cognitive Status Response Date of Assessm ent Does person have difficulty concentrating/remembering/making decisions? No 05/23/2024 documented as of this encounter Miscellaneous Notes * Telephone Encounter - Ari Yu - 05/31/2024 12:51 PM CDT Called patient to schedule a follow up visit with Dr. Mensah. No answer, Lvm requesting a call back. Reached out to daughter (alt contact), Ari and she stated she struggles to get a hold of patientas well. She mentioned he was in the process of getting a new phone, but was unsure where he was atin the process and couldn't provide me with a new number to try to reach him. Left a call back # and asked if she could notify patient that we have been trying to reach him, shesaid would try. documented in this encounter Plan of Treatment Upcoming Encounters Date Type Department Care Team (Late st Contact Info) Description 10/16/2024 1:30 PM BRICK OR BLOCK MAKER Office Visit [facility] - ENT [address] [place] [phone] Ritesh Mesnah MD [address] [place] [address] DEPT [place] [address] documented as of this encounter Visit Diagnoses Not on filedocumented in this encounter Care Teams Luggage Liner Relationship Specialty Start Date End Date None, Physician [address] [place] [address] PCP - General 04/10/24 documented as of this encounter
--- OUTSIDE RECORDS SUMMARY | 2024-09-24 06:04 | XMS_ITS | Encounter Summary ---
Author Organization [facility] Address [address] [facility] [place] [address] Care Team Providers Care Supervisor Buffing And Pasting Name Role Phone None, Physician Primary Care Provider Unavailabl e Encounter Details Date Type Department Care Team (Late st Contact Info) Description 07/03/2024 Orders Only [facility] - General Surgery [address] [facility], [place] [address] Augustine Jimenez MD [address] [facility] [address] [place] [address] Malignant neoplasm of lung, unspecified laterality, unspecified part of lung (HCC) Social History Tobacco Use Types Packs/Day Years Used Date Smoking Tobacco: Every Day Cigarettes 1 51 Smokeless Tobacco: Never Comments:Down to less than h tierney a pack daily Alcohol Use Standard Drinks/Week [...] and heating? Not hard at all 05/23/2024 [facility] [place] of Occupat ional Health - Occupational Stress [...] place to sleep or slept in a custodial (including now)? No 05/23/2024 Sex and Gender [...] No 05/23/2024 documented as of this encounter Plan of Treatment Upcoming Encounters Date Type Department Care Team (Late st Contact Info) Description 10/16/2024 1:30 PM REFRESH TECHNICIAN Office Visit [facility] - ENT [address] [place] [address] Ritesh Mensah MD [address] [facility] [address] [place] [address] Scheduled Orders Name Type Priority Associated Diagnoses Orde r Schedule CULTURE URINE Microbiology Routine Malignant neoplasm of lung, unspecified laterality, unspecified part of lung (HCC) Ordered: 07/03/2024 documented as of this encounter Visit Diagnoses Diagnosis Malignant neoplasm of lung, unspecified laterality, unspecified part of lung (HCC)- Primary documented in this encounter Care Teams Supervisor Buffing And Pasting Relationship Specialty Start Date End Date None, Physician [address] [place] [address] PCP - General 04/10/24 documented as of this encounter
--- OUTSIDE RECORDS SUMMARY | 2024-09-24 06:04 | XMS_ITS | Encounter Summary ---
Author Organization [facility] Address [address] [place] [address] Care Team Providers Care Agility Instructor Name Role Phone None, Physician Primary Care Provider Unavailabl e Reason for Referral * Procedure (Routine) - Closed Specialty Diagnoses / Procedures Referred By Contac t Referred To Contact Pulmonary Disease Diagnoses Malignant neoplasm of upper lobe of right lung (HCC) Procedures SIX MINUTE WALK Ben Mccormack MD [address] [facility] 2L DIV OF PULMONARY/[place] [address] [facility] [address] [place] [address] Referral ID Status Reason Start Date Expiration Date Visits Re quested Visits Authorized [id number] Closed 05/28/2024 05/28/2025 1 1 ITION MANAGER Reason for Visit * Procedure (Routine) - Closed Specialty Diagnoses / Procedures Referred By Contac t Referred To Contact Pulmonary Disease Diagnoses Malignant neoplasm of upper lobe of right lung (HCC) Procedures SIX MINUTE WALK Ben Mccormack MD [address] [facility] 2L DIV OF PULMONARY/[place] [address] [facility] [address] [place] [address] Referral ID Status Reason Start Date Expiration Date Visits Re quested Visits Authorized [id number] Closed 05/28/2024 05/28/2025 1 1 Encounter Details Date Type Department Care Team (Latest Contact Info) Description 07/25/2024 11:01 AM NUTRITION MANAGER - 07/25/2024 11:59 PM NUTRITION MANAGER Hospital Encounter [facility] [address] [place] [address] Ben Mccormack MD [address] [facility] 2L DIV OF PULMONARY/[place] [address] Discharge Disposition: Home or Self Care Social History Tobacco Use Types Packs/Day Years [...] and heating? Not hard at all 05/23/2024 [facility] [place] of Occupat ional Health - Occupational Stress [...] place to sleep or slept in a fdc (including now)? No 05/23/2024 Sex and Gender [...] person have difficulty concentrating/remembering/making decisions? No 07/17/2024 documented as of this encounter Medications at Time of Discharge Medication Sig Dispensed Refills Start Date End Date alum and mag hydroxide-simeth (Maalox Max) 400-400-40 MG/5ML suspension Take 5 mL by mouth every 6 hours as needed for Heartburn diphenhydrAMINE (Benadryl) 25 mg/50 mL infusion Take 25 (twenty five) mg by mouth every 6 hours as needed finasteride (Proscar) 5 MG tablet Take 1 (one) tablet by mouth once daily 06/13/2023 oxyCODONE, immediate release, (Roxicodone) 5 MG tabletIndications:Ma lignant neoplasm of upper lobe of right lung (HCC) Take 1 (one) tablet by mouth every 4 hours as needed 12 tablet 07/21/2024 polyethylene glycol 3350 (Miralax) 17 g packet Take by mouth once daily sevelamer (Renagel) 800 MG tablet Take 2 (two) tablets by mouth 3 times daily with meals 03/12/2024 tamsulosin (Flomax) 0.4 MG capsule Take 1 (one) capsule by mouth once daily 05/30/2023 white petroleum (Vaseline) ointment Apply to affected area 3 times daily 106 g 07/21/2024 acetaminophen (Tylenol) 500 MG tablet Take 2 (two) tablets by mouth every 6 hours for 7 days Maximum allowable Acetaminophen amount = 4 Grams (4000 mg) / 24 hours. 28 tablet 07/21/2024 07/28/2024 documented as of this encounter Procedure Notes * Hank Herndon MD - 07/25/2024 11:59 AM CSTAssociated Order(s): SIX MINUTE WALK Images from the original note were not included. ITION MANAGER documented in this encounter Plan of Treatment Upcoming Encounters Date Type Department Care Team (Late st Contact Info) Description 10/16/2024 1:30 PM NUTRITION MANAGER Office Visit [facility] - ENT [address] [place] [address], [place] [address] Ritesh Mensah MD [address] [place] [address] [place] [address] documented as of this encounter Procedures Procedure Name Priority Date/Time Associated Diagnosis Comments SIX MINUTE WALK Routine 07/25/2024 11:59 AM NUTRITION MANAGER Malignant neoplasm of upper lobe of right lung (HCC) documented in this encounter Results * SIX MINUTE WALK (07/25/2024 11:59 AM NUTRITION MANAGER) Impressions Satish Mcginnis MD - 07/25/2024 11:59 AM NUTRITION MANAGER [facility] DEPARTMENT OF PULMONARY, CRITICAL CARE, AND [...] of Pulmonary, Critical Care, and Sleep Medicine [facility] I have reviewed this study and agree with the interpretation by the Pharmaceutical Laboratory Technician. Satish Mcginnis M.D. [facility] Division of Pulmonary, Critical Care and Sleep Medicine [facility] Narrative Satish Mcginnis MD - 07/25/2024 11:59 AM NUTRITION MANAGER Hank Herndon MD ? 07/26/2024 ??5:36 AM Ben Mccormack MD RESPIRATORY THERAPY ORDERABLES documented in this encounter Visit Diagnoses Diagnosis Malignant neoplasm of upper lobe of right lung (HCC) Malignant neoplasm of upper lobe, bronchus or lung documented in this encounter Care Teams Agility Instructor Relationship Specialty Start Date End Date None, Physician [address] [place] [address] PCP - General 04/10/24 documented as of this encounter
--- OUTSIDE RECORDS SUMMARY | 2024-09-24 06:04 | XMS_ITS | Encounter Summary ---
Author Organization [facility] Address [address] [facility] [place] [address] Care Team Providers Care Fur Feeder Name Role Phone None, Physician Primary Care Provider Unavailabl e Encounter Details Date Type Department Care Team (Late st Contact Info) Description 05/24/2024 Orders Only [facility] - ENT [address] [facility], [place] [id number] Portillo Perez MD [address] [facility] [place] [address] Social History Tobacco Use Types Packs/Day Years [...] and heating? Not hard at all 05/23/2024 [facility] [place] of Occupat ional Health - Occupational Stress [...] place to sleep or slept in a long term (including now)? No 05/23/2024 Sex and Gender [...] st Contact Info) Description 10/16/2024 1:30 PM BILLING AND INSURANCE COORDINATOR Office Visit [facility] - ENT [address] [place] [phone] Ritesh Mensah MD [address] [place] [address] [place] [address] documented as of this encounter Visit Diagnoses Not on filedocumented in this encounter Care Teams Fur Feeder Relationship Specialty Start Date End Date None, Physician [address] [place] [address] PCP - General 04/10/24 documented as of this encounter
--- OUTSIDE RECORDS SUMMARY | 2024-09-24 06:04 | XMS_ITS | Encounter Summary ---
Author Organization [facility] Address [address] [place] [address] Care Team Providers Care Senior Production Manager Name Role Phone None, Physician Primary Care Provider Unavailabl e Reason for Visit * Reason Onset Date Comments Procedure 06/01/2024 Encounter Details Date Type Department Care Team (Late st Contact Info) Description 06/01/2024 Telephone [facility] - Pulmonology [address] [place] [address], [place] [phone] Ben Mccormack MD [address] [place] [address] DIV OF PULMONARY/[place] [address] Procedure Social History Tobacco Use Types Packs/Day Years [...] and heating? Not hard at all 05/23/2024 [facility] [place] of Occupat ional Health - Occupational Stress [...] encounter Miscellaneous Notes * Telephone Encounter - Larisa Ragland RN - 06/04/2024 10:04 AM CDT 3rd attempt: Placed call to Barry @ [facility] Barry andre, message left with chief unit forester requesting return call. * Telephone Encounter - Larisa Ragland RN - 06/01/2024 12:28 PM CDT 2nd attempt : Placed call to Barry to coordinates dates fot PFTs/ 6min walk and Thoracic appt. Leftmessage with staff requesting return call. documented in this encounter Plan of Treatment Upcoming Encounters Date Type Department Care Team (Late st Contact Info) Description 10/16/2024 1:30 PM UNDERWRITING SPECIALIST Office Visit [facility] - ENT [facility] [place] [address] Ritesh Mensah MD [address] [place] [address] [place] [address] documented as of this encounter Visit Diagnoses Not on filedocumented in this encounter Care Teams Senior Production Manager Relationship Specialty Start Date End Date None, Physician [address] [place] [address] PCP - General 04/10/24 documented as of this encounter
--- OUTSIDE RECORDS SUMMARY | 2024-09-24 06:04 | XMS_ITS | Encounter Summary ---
Author Organization [facility] Address [address] [place] [address] Care Team Providers Care Veneer Taper Name Role Phone None, Physician Primary Care Provider Unavailabl e Reason for Visit * Auth/Cert (Routine) Specialty Diagnoses / Procedures Referred By Contac t Referred To Contact Diagnoses Malignant neoplasm of upper lobe of right lung (HCC) Malignant neoplasm of upper lobe of right lung Procedures WV THORACOSCOPY W/LOBECTOMY WV THORACOSCOPY REMOVE SEGMENT THORACOSCOPIC (VATS) LOBECTOMY Referral ID Status Reason Start Date Expiration Date Visits Re quested Visits Authorized [id number] 1 1 Encounter Details Date Type Department Care Team (Late st Contact Info) Description 07/20/2024 4:21 PM CDT - 07/20/2024 6:06 PM CDT Surgery [facility] [address] [place] [address] Ritesh Mensah MD [address] [place] [address] DIVISION AND INSET PARAMEDIAN FOREHEAD FLAP Surgery Details Date/Time Status Location OR Service Patient Class Case Class Case Type Trauma Case? 07/20/2024 4:21 PM Posted [facility] OR OR ENT Inpatient Work Ins >24 Hrs to 5 Days Panel 1 Procedure LRB Anes Op Region Wound Class Comments DIVISION AND INSET PARAMEDIA N FOREHEAD FLAP N/A General Head Clean Contaminated Surgeon Surgeon Role Service Panel Ritesh Mensah MD Primary ENT 1 Ernst Rivera MD Resident - Assisting ENT 1 Case Notes REQUESTING [address] Special Needs [place] documented in this encounter Social History Tobacco Use Types Packs/Day Years Used Date Smoking Tobacco: Every Day Cigarettes 1 51 Smokeless Tobacco: Never Comments:Down to less than h skilled nursing a pack daily Alcohol Use Standard Drinks/Week [...] and heating? Not hard at all 05/23/2024 [facility] - Occupational Stress [...] on file documented as of this encounter Last Filed Vital Signs Vital Sign Reading Time Taken Comments Blood Pressure 126/75 07/20/2024 6:05 PM CDT Pulse 107 07/20/2024 6:05 PM CDT Temperature 36.6 ??C (97.8 ??F) 07/20/2024 5:40 PM CD T Respiratory Rate 30 07/20/2024 6:05 PM CDT Oxygen Saturation 89% 07/20/2024 6:05 PM CDT Inhaled Oxygen Concentration - - Weight 91.3 kg (201 lb 3.2 oz) 07/17/2024 10:44 AM CDT Height 172.7 cm (5' 8 ) 07/17/2024 10:44 AM CDT Body Mass Index 30.59 07/17/2024 10:44 AM CDT documented in this encounter Functional Status Functional Status Response [...] No 07/17/2024 documented as of this encounter Discharge Summaries * Ayana Pinedo MD - 07/21/2024 9:41 AM CDT Physician Discharge Summary Patient ID: Andrey Giron [id number] 64 year old male 1960 Admit date: 07/17/2024 Discharge date and time: 07/21/2024 Admitting Physician: Augustine Jimenez MD Discharge Physician: Augustine Jimenez MD Present on Admission: left lung adenocarcinoma Discharge Diagnoses: left lung adenocarcinoma Admission Condition: stable Discharged Condition: stable Indication for Admission: Andrey Giron is a 64 year old male with PMH significant for left nasal sidewall basal cell carcinoma, ESRD on HD MWF and newly diagnosed left lung adenocarcinoma. Patient continues to smake despite smoking cessation counseling. Admitted following scheduled left VATS with left upper lobe wedge resection. Hospital Course: Patient underwent left VATS with left upper lobe resection on 08/17. Lymph node stations 3, 5, 6, and 10 were taken and sent for pathology. The procedure was without complication andthe patient was admitted to floor postoperatively. His chest tube had decreasing amounts of serosanguinous output postoperatively. The chest tube was removed 07/19 (POD2), with no evidence of postpull pneumothorax. Patient also with recent facial reconstruction for BCC defect, requiring staged takedown. He was seen by ENT this admission, and they took him to the OR on 07/20 for division and inset forehead flap. This was without complication and the patient was stable for discharge following with appropriate ENT f/u. Post-operatively, he was ambulating, voiding via b/l nephrostomy tubes, tolerated a diet, and pain was well controlled. He was dialyzed per nephrology according to his baseline schedule ([facility]) on Saturday 08/18. Dialysis was scheduled again for Friday 07/20, but the patient refused. He was again offered dialysis at [facility] on 07/21, but the patient again refused, stating that he will have dialysis at his facility on Tuesday. He was counseled on the importance of dialysis and the risk of skipping it; the patient expressed understanding but continued to state his preference to wait until Tuesday . He was discharged to his facility in stable condition. He will follow-up with Dr. Jimenez as scheduled. Consults: ENT, Nephrology Procedures: 07/17: left VATS with left upper lobe wedge resection 07/20: Division and inset forehead flap Significant Diagnostic Studies: See hospital course Discharge Exam: Gen: NAD HEENT: AT/NC, EOMI, CV: RRR Pulm: Nonlabored respirations Abd: Soft, NT/ND, forehead flap on left nose MSK: WWP, no c/c/e Neuro: Moving all extremities, no focal deficits Psych: Appropriate mood and affect Disposition: care home Patient Instructions: Medication List START taking these medications white petroleum ointment Commonly known as: Vaseline Apply to affected area 3 times daily CHANGE how you take these medications acetaminophen 500 MG tablet Commonly known as: Tylenol Take 2 (two) tablets by mouth every 6 hours for 7 days Maximum allowable Acetaminophen amount = 4 Grams (4000 mg) / 24 hours. What changed: how much to take when to take this reasons to take this additional instructions CONTINUE taking these medications diphenhydrAMINE 25 mg/50 mL infusion Commonly known as: Benadryl finasteride 5 MG tablet Commonly known as: Proscar oxyCODONE (immediate release) 5 MG tablet Commonly known as: Roxicodone Take 1 (one) tablet by mouth every 4 hours as needed polyethylene glycol 3350 17 g packet Commonly known as: Miralax sevelamer 800 MG tablet Commonly known as: Renagel tamsulosin 0.4 MG capsule Commonly known as: Flomax STOP taking these medications sulfamethoxazole-trimethoprim 800-160 MG tablet Commonly known as: Bactrim DS; Septra DS ASK your doctor about these medications alum and mag hydroxide-simeth 400-400-40 MG/5ML suspension Commonly known as: Maalox Max Where to Get Your Medications [facility] [address] [id number] [address] [id number] acetaminophen 500 MG tablet oxyCODONE (immediate release) 5 MG tablet white petroleum ointment Contact information for follow-up providers None, Physician . Contact information for after-discharge care Dialysis/Infusion [facility] . Service: Dialysis Contact information: Lauryn Harper [address] [facility] [address] Discharge Instructions ENT Discharge Instructions - Place vaseline ointment on the wound at least 3 times per day. Continue this for 2 weeks or as long as incision is not fully healed or crusting - It is ok to shower after 24 hours with indirect soap and water onto the incision. Do not scrub orsoak in tube. Pat dry after and apply ointment. - We will schedule an appointment with Dr. Ritesh Mensah in 3 months for follow up. Call to confirm or schedule [phone] - For weekday daytime concerns, call our office at [phone]. For weekend or nighttime concerns,call the hospital at [phone], dial 0, and ask for the ENT resident harm reduction worker. Signed: Ayana Pinedo MD General Surgery Resident 07/21/2024 TH INFORMATION DIRECTOR documented in this encounter Discharge Instructions * Discharge Instructions* Ernst Rivera MD - 07/21/2024 8:40 AM CDT ENT Discharge Instructions - Place vaseline ointment on the wound at least 3 times per day. Continue this for 2 weeks or as long as incision is not fully healed or crusting - It is ok to shower after 24 hours with indirect soap and water onto the incision. Do not scrub orsoak in tube. Pat dry after and apply ointment. - We will schedule an appointment with Dr. Ritesh Mensah in 3 months for follow up. Call to confirm or schedule [phone] - For weekday daytime concerns, call our office at [phone]. For weekend or nighttime concerns,call the hospital at [phone], dial 0, and ask for the ENT resident harm reduction worker. documented in this encounter Medications at Time of Discharge [...] 07/21/2024 07/28/2024 documented as of this encounter Progress Notes * Bebo Mac MD - 07/21/2024 11:14 AM CDT Seen the patient in his room this am, offered HD treatment before discharge, patient refused and said that he would prefer to be done at his OP HD unit on Tuesday, he would call his unit. Communicated to the primary team. Associated attestation - Teodoro Resendiz MD - 07/21/2024 4:21 PM CDT I have personally counseled the patient about the importance of getting dialysis before he is discharged , he insisted not to dialyze understanding the risk . * Soheila Santos RN - 07/21/2024 8:46 AM CDT Problem: Tobacco Use Goal: Inpatient tobacco-use cessation counseling participation Outcome: Adequate for Discharge Problem: Pain/Discomfort Goal: Patient exhibits reduced pain/discomfort as evidenced by pain scores Outcome: Adequate for Discharge Goal: Patient uses pharmacological and non-pharmacological pain management strategies. Outcome: Adequate for Discharge Goal: Patient verbalizes acceptable level of pain relief and ability to engage in desired activity. Outcome: Adequate for Discharge Problem: Fall Risk Goal: Fall risk and fall related injury risk are minimized (interventions related to the fall risk can be found in the flowsheet documentation) Outcome: Adequate for Discharge Problem: Hemodynamic Status/Cardiac Output Goal: Patient has stable vital signs and fluid balance Outcome: Adequate for Discharge Problem: Fluid and Electrolyte Imbalance Goal: Fluid and electrolyte balance are achieved/maintained Outcome: Adequate for Discharge Problem: Infection Goal: Signs and symptoms of infections are decreased or avoided Outcome: Adequate for Discharge Problem: Mobility Goal: STG - Patient will ambulate Outcome: Adequate for Discharge * Vladislav Singh MD - 07/21/2024 8:36 AM CDT Otolaryngology Progress Note 07/21/2024 SUBJECTIVE: NAEO AFVSS Anticipating dc today VITALS: Temp (30hrs) Max:98.9 ??F (37.2 ??C) Vitals: 07/20/24 2058 07/21/24 0006 07/21/24 0413 07/21/24 0816 BP: 103/60 110/61 119/67 Pulse: 87 83 94 Resp: 16 18 16 18 Temp: 98.3 ??F (36.8 ??C) 98 ??F (36.7 ??C) 98.9 ??F (37.2 ??C) SpO2: 100% 94% 93% 92% Weight: Height: Intake/Output Summary (Last 24 hours) at 07/21/2024 0836 Last data filed at 07/21/2024 0347 Gross per 24 hour Intake 600 ml Output 1125 ml Net -525 ml MEDICATIONS FOR CURRENT ENCOUNTER: SCHEDULED MEDICATIONS: acetaminophen (Tylenol) tablet 1,000 mg, Oral, q6h finasteride (Proscar) tablet 5 mg, Oral, QDAY gabapentin (Neurontin) capsule 100 mg, Oral, TID guaiFENesin ER 12hr (Mucinex) tablet 600 mg, Oral, q12h polyethylene glycol 3350 (Miralax) packet 17 g, Oral, QDAY sevelamer carbonate (Renvela) tablet 800 mg, Oral, TID WC tamsulosin (Flomax) capsule 0.4 mg, Oral, QDAY white petroleum (Vaseline) gel, Topical, TID CONTINUOUS MEDICATIONS: PRN MEDICATIONS: Or Or Or acetaminophen (Tylenol) tablet 650 mg, Oral, q6h PRN diphenhydrAMINE (Benadryl) injection 25 mg, Intravenous, Once PRN fentaNYL (PF) (Sublimaze) injection 25 mcg, Intravenous, q10 min PRN fentaNYL (PF) (Sublimaze) injection 50 mcg, Intravenous, q10 min PRN HYDROmorphone (Dilaudid) injection 0.2 mg, Intravenous, q4h PRN HYDROmorphone (Dilaudid) injection 0.5 mg, Intravenous, q10 min PRN methocarbamol (Robaxin) tablet 750 mg, Oral, q6h PRN ondansetron (disintegrating) (Zofran ODT) tablet 4 mg, Oral, q6h PRN ondansetron (Zofran) injection 4 mg, Intravenous, Once PRN ondansetron (Zofran) injection 4 mg, Intravenous, q6h PRN oxyCODONE (immediate release) (Roxicodone) tablet 10 mg, Oral, q4h PRN oxyCODONE (immediate release) (Roxicodone) tablet 10 mg, Oral, q4h PRN oxyCODONE (immediate release) (Roxicodone) tablet 5 mg, Oral, q4h PRN oxyCODONE (immediate release) (Roxicodone) tablet 5 mg, Oral, q4h PRN prochlorperazine (Compazine) injection 10 mg, Intravenous, Once PRN throat lozenge 1 lozenge, Oral, q1h PRN PHYSICAL EXAM: Gen: NAD. HEENT: well vascularized forehead flap in place on the left nose s/p division and inset, healing appropriately ASSESSMENT: Andrey Giron is a 64 year old male with PMH of ESRD on MWF dialysis, newly diagnosed MANISHA adenocarcinoma with nasal BCC s/p left partial rhinectomy on 05/22 and subsequent reconstruction on 05/23 (right paramedianforehead flap, FTSG). He is currently admitted to thoracic surgery service after left VATS and MANISHA wedge resection on 07/07. He seen in consultation for possible staged forehead flap takedown during this admission. On exam forehead flap is healing well in the previous nasal defect. PLAN: - Ok to discharge from ENT perspective -Place vaseline ointment on the wound at least 3 times per day - It is ok to shower after 24 hours with indirect soap and water onto the incision. Do not scrub orsoak in tube. Pat dry after and apply ointment. -We will schedule an appointment with Dr. Ritesh Mensah in 3 months for follow up. Our office contact: [phone] Vladislav Singh MD Otolaryngology Head and Neck Surgery Resident 07/21/24 * Anastasiia Dai RN - 07/21/2024 3:40 AM CDT Problem: Tobacco Use Goal: Inpatient tobacco-use cessation counseling participation Outcome: Progressing Problem: Pain/Discomfort Goal: Patient exhibits reduced pain/discomfort as evidenced by pain scores Outcome: Progressing Goal: Patient uses pharmacological and non-pharmacological pain management strategies. Outcome: Progressing Goal: Patient verbalizes acceptable level of pain relief and ability to engage in desired activity. Outcome: Progressing Problem: Fall Risk Goal: Fall risk and fall related injury risk are minimized (interventions related to the fall risk can be found in the flowsheet documentation) Outcome: Progressing Problem: Hemodynamic Status/Cardiac Output Goal: Patient has stable vital signs and fluid balance Outcome: Progressing Problem: Fluid and Electrolyte Imbalance Goal: Fluid and electrolyte balance are achieved/maintained Outcome: Progressing Problem: Infection Goal: Signs and symptoms of infections are decreased or avoided Outcome: Progressing Problem: Mobility Goal: STG - Patient will ambulate Outcome: Progressing * Ernst Rivera MD - 07/20/2024 5:45 PM CDT ENT Plan of Care S/p division and inset of forehead flap Plan: - Ok to discharge from ENT perspective -Place vaseline ointment on the wound at least 3 times per day - It is ok to shower after 24 hours with indirect soap and water onto the incision. Do not scrub orsoak in tube. Pat dry after and apply ointment. -We will schedule an appointment with Dr. Ritesh Mensah in 3 months for follow up. Our office contact: [phone] Ernst Rivera MD Otolaryngology - Head and Neck Surgery 07/20/2024 * Ayana Pinedo MD - 07/20/2024 4:13 PM CDT Thoracic Progress Note 07/20/2024 CC: left lung adenocarcinoma HPI: 64 year old year old male with PMH significant for left nasal sidewall basal cell carcinoma, ESRD on HD MWF and newly diagnosed left lung adenocarcinoma. Patient continues to smake despite smoking cessation counseling. Day of Surgery S/P: left video-assisted thoracoscopy with left upper lobe wedge resection Interval history/events: Afebrile, HDS, room air Left chest tube removed 07/19 with no recurrent pneumothorax on cxr OR today with ENT for intervention on flap Scheduled for dialysis today. Patient refusing, would like to do dialysis at home S: Awake, alert Medical, surgical, social and family histories reviewed Medications and allergies reviewed O: Temp Min: 97.2 ??F (36.2 ??C) Max: 98.8 ??F (37.1 ??C), Pulse Min: 68 Max: 116, Resp Min: 9 Max:21, BP Min: 92/77 Max: 165/94 07/19 0701 - 07/20 0700 In: 990 [P.O.:990] Out: 1045 [Urine:975; Drains:70] Exam General appearance: alert, cooperative, no distress Chest: port incision clean, dry and intact; left chest tube in place Lungs: clear to ausculation bilaterally; no wheezes or crackles Heart: regular rhythm, normal S1 and S2, without murmurs, rubs or gallops Abdomen: soft without mass, non-tender, non-distended, with normal bowel sounds Extremities: no edema Neurologic: mental status normal; alert and oriented X 3; cranial nerves II - XII are grossly intact Recent Labs Component Name 07/20/2415407/19/2414807/18/24144 WBC 7.9 8.9 11.1* RBC 3.33* 3.31* 3.29* HGB 10.8* 10.7* 10.5* HCT 33.2* 32.2* 32.9* MCV 99.7* 97.3 100.0* MCHC 32.5 33.2 31.9 PLTCOUNT 180 189 211 NEUTPCT 68.3 70.8 86.2* LYMPHPCT 18.3 17.2 6.3* LYMPHABS 1.44 1.53 0.70* BASOABS 0.04 0.06 0.01 Recent Labs Component Name 11/01/24 0155 10/31/24 0149 10/30/24 0145 NA 139 138 138 POTASSIUM 4.0 3.8 5.4* CO2 23 26 13* BUN 51* 34* 82* CREATININE 9.06* 7.59* 12.10* GLUCOSE 116* 104* 183* CALCIUM 9.2 8.4 8.5 EGFR 6* 7* 4* Pathology: pending IMAGING: XR Chest 2Vw Result Date: 07/20/2024 IMPRESSION: *Similar right IJ central venous catheter terminating in the right atrium. Stable cardiomediastinal silhouette. Improving left upper lung postoperative opacities status post left upper lobe wedge resection. Similar right and improving left pleural effusions with associated atelectasis. No pneumothorax. Soft tissue gas is again seen along the left chest wall. > Interpreting Provider: Teddy Johnston MD on 07/20/2024 4:01 PM XR Chest 1Vw Portable Result Date: 07/18/2024 IMPRESSION: *Similar right IJ central venous catheter and left thoracostomy tube. Increasing low lung volumes with worsening bronchovascular crowding. Mild bibasilar opacities, likely atelectasis. Similar right midlung subsegmental atelectasis. No large effusion or pneumothorax. Stable cardiomediastinal silhouette. Soft tissue gas along the left chest wall. > Interpreting Provider: Teddy Johnston MD on 07/18/2024 2:11 PM A/P: 64 year old male with MANISHA adenocarcinoma now s/p eft video-assisted thoracoscopy with left upper lobe wedge resection - pulm hygiene with IS, aerobika, vest - post pull CXR stable - multimodal pain management with scheduled tylenol and gabapentin, prn robaxin and oxycodone 01/26 - nephrology consult for HD - NPO - nephro consulted for inpatient HD - will reassess for discharge following ENT procedure Ayana Pinedo MD Thoracic Surgery 07/20/2024 4:17 PM TH INFORMATION DIRECTOR * Dianelys Cowart RN - 07/20/2024 4:11 PM CDT Problem: Tobacco Use Goal: Inpatient tobacco-use cessation counseling participation Outcome: Progressing Problem: Pain/Discomfort Goal: Patient exhibits reduced pain/discomfort as evidenced by pain scores Outcome: Progressing Goal: Patient uses pharmacological and non-pharmacological pain management strategies. Outcome: Progressing Goal: Patient verbalizes acceptable level of pain relief and ability to engage in desired activity. Outcome: Progressing Problem: Fall Risk Goal: Fall risk and fall related injury risk are minimized (interventions related to the fall risk can be found in the flowsheet documentation) Outcome: Progressing Problem: Hemodynamic Status/Cardiac Output Goal: Patient has stable vital signs and fluid balance Outcome: Progressing Problem: Fluid and Electrolyte Imbalance Goal: Fluid and electrolyte balance are achieved/maintained Outcome: Progressing Problem: Infection Goal: Signs and symptoms of infections are decreased or avoided Outcome: Progressing Problem: Mobility Goal: STG - Patient will ambulate Outcome: Progressing * Caridad Gresham RN - 07/20/2024 3:04 PM CDT Care Coordination Progress Note Expected Discharge Date: 07/23/2024 Discharge Plan: Patient to return to [facility] when medically ready. Family Support (Name and Phone): Extended Emergency Contact Information Primary Emergency Contact: HARRIET LAGUNAS Mobile Relation: Other Secondary Emergency Contact: GIRONARI Mobile Relation: Daughter Publications Editor needed? No Transportation at Discharge: [facility] READMISSION RISK SCORE is 15 at 3:05 PM 07/20/2024 Name: Caridad Gresham RN [phone] * Ernst Rivera MD - 07/20/2024 2:29 PM CDT Otolaryngology Progress Note 07/20/2024 SUBJECTIVE: Agreeable to surgery today VITALS: Temp (30hrs) Max:98.8 ??F (37.1 ??C) Vitals: 07/19/24202007/19/24 2050 07/20/24 0742 07/20/24 1154 BP: 127/71 132/72 165/94 Pulse: 68 81 78 80 Resp: 18 17 20 20 Temp: 98.8 ??F (37.1 ??C) 98 ??F (36.7 ??C) 98.3 ??F (36.8 ??C) SpO2: 98% 91% 90% 91% Weight: Height: Intake/Output Summary (Last 24 hours) at 07/20/2024 1429 Last data filed at 07/20/2024 1339 Gross per 24 hour Intake 400 ml Output 1050 ml Net -650 ml MEDICATIONS FOR CURRENT ENCOUNTER: SCHEDULED MEDICATIONS: acetaminophen (Tylenol) tablet 1,000 mg, Oral, q6h finasteride (Proscar) tablet 5 mg, Oral, QDAY gabapentin (Neurontin) capsule 100 mg, Oral, TID guaiFENesin ER 12hr (Mucinex) tablet 600 mg, Oral, q12h polyethylene glycol 3350 (Miralax) packet 17 g, Oral, QDAY sevelamer carbonate (Renvela) tablet 800 mg, Oral, TID WC tamsulosin (Flomax) capsule 0.4 mg, Oral, QDAY CONTINUOUS MEDICATIONS: PRN MEDICATIONS: Or Or Or acetaminophen (Tylenol) tablet 650 mg, Oral, q6h PRN methocarbamol (Robaxin) tablet 750 mg, Oral, q6h PRN ondansetron (disintegrating) (Zofran ODT) tablet 4 mg, Oral, q6h PRN ondansetron (Zofran) injection 4 mg, Intravenous, q6h PRN oxyCODONE (immediate release) (Roxicodone) tablet 10 mg, Oral, q4h PRN oxyCODONE (immediate release) (Roxicodone) tablet 10 mg, Oral, q4h PRN oxyCODONE (immediate release) (Roxicodone) tablet 5 mg, Oral, q4h PRN oxyCODONE (immediate release) (Roxicodone) tablet 5 mg, Oral, q4h PRN PHYSICAL EXAM: Gen: NAD. HEENT: well vascularized forehead flap in place on the left nose ASSESSMENT: Andrey Giron is a 64 year old male with PMH of ESRD on MWF dialysis, newly diagnosed MANISHA adenocarcinoma with nasal BCC s/p left partial rhinectomy on 05/22 and subsequent reconstruction on 05/23 (right paramedianforehead flap, FTSG). He is currently admitted to thoracic surgery service after left VATS and MANISHA wedge resection on 07/07. He seen in consultation for possible staged forehead flap takedown during this admission. On exam forehead flap is healing well in the previous nasal defect. PLAN: -OR for division and inset of forehead flap today - NPO - Consent obtained - Please page ENT with questions/concerns Ernst Rivera MD Otolaryngology - Head and Neck Surgery 07/20/2024 * Teodoro Resendiz MD - 07/20/2024 11:30 AM CDT I was told that the patient refused to get dialysis today , I spent 10 min with him explaining the importance of doing hemodialysis today ,he refused , I offered tomorrow first thing in the morning ,he refused . I explained for him the risk of not getting dialysis including , confusion , hyperkalemia and cardiac effect ... He insisted on not getting dialysis today no tomorrow but he will call his dialysis center in [facility] and arrange for his dialysis tomorrow , he said he will be back on Monday 07/23 for ENTsurgery ... He just want to go home today . Will put dialysis orders for tomorrow in case he did not go home. * Wilma Dangelo, PT - 07/20/2024 10:50 AM CDT [facility] Physical Medicine and Rehabilitation Physical Therapy Progress Note Patient: Andrey Giron Med Record Number: [id number] Date of : 1960 Age: [age] year old PPE worn by staff: gloves;mask - procedural PPE worn by patient: gown - patient, clean;socks - clean Recommendations: Discharge PT Discharge Recommendations: Patient would benefit from multidisciplinary therapy This recommendation is made due to ongoing PT functional needs: address functional deficits;addresscare for self in the home;patient to return to prior level of care;patient has ability to improve with skilled therapy intervention;patient is motivated and actively participating in therapy SUBJECTIVE: Subjective: I don't know why they're keeping me here Pain Assessment: PRECAUTIONS: Weight Bearing Status: (no restrictions) Activity Level: Activity as Tolerated OBJECTIVE: At start of therapy session, patient found in bed and with no alarm General Appearance: 64 y/o male received supine, NAD Vitals: (*Assess the 3 levels of oxygen saturations both for room air and 02 unless rest on room air is 88% or less). Rest BP: 122/69 HR: 86 Sp02 Sp02 Room Air L O2 Observations: no report of dizziness or dyspnea throughout Mental Status/Cognition: Level of Consciousness-Adult: Alert;Eyes Open Spontaneously Orientation Level: Oriented X4 Mobility: A gait belt and non-slip socks were used for all out of bed activity this date. Bed Mobility: Supine to Sit: Stand By Assist with HOB in semi-fowlers position Sit to Supine: Activity Does Not Occur Transfers: Sit to Stand: Stand By Assist Stand to Sit: Stand By Assist Gait: Weight Bearing Status: (no restrictions) Distance Ambulated (ft): 250 FEET Ambulation: Assistive Device: Gait Belt Ambulation: Level of Assistance: Minimum Assistance;Stand By Assist Ambulation: Gait Deviations: Ca - Decreased;Base of Support - Increased;Lateral trunk lean/sway Comments: pt able to ambulate 250 ft with SBA due to decreased stability with gait training. Pt requires occasional cueing throughout for safety. Balance: Balance Scales/Tests Used: Sitting: Static/Dynamic;Standing: Static/Dynamic Sitting - Static: Good Sitting - Dynamic: Good Standing - Static: Fair + Standing - Dynamic: Fair ACTIVITY TOLERANCE: Patient's activity tolerance: fair. TREATMENT/INTERVENTIONS: bed mobility training, transfer training, gait training, and monitoring ofvitals AM-PAC 6 Clicks Mobility Raw Score:: 18 EDUCATION: While performing PT, Patient was instructed in:functional mobility training, energy conservation, safety awareness/fall precautions , use of adaptive equipment, discharge planning, use of call light Presented to patient who demonstrates Fair understanding of instructions given. ASSESSMENT: Patient would benefit from additional Physical Therapy sessions to achieve the following functionalgoals to enhance independence. Short Term Goals: Goal Formation With patient Patient will perform bed mobility independently Patient will transfer sit to/from stand independently Patient will transfer bed to/from chair independently Patient will ambulate 250 feet independently Long-Term Goal(s): Patient to be baseline with functional mobility and self-care and should discharge to prior level of care. INFORMED CONSENT TO TREATMENT: Plan of care including recommended therapy, goals and frequency, discussed with patient who understands and agrees to proceed. Equipment Issued: none Plan: Patient continues to benefit from skilled therapy services. If patient is discharged from the facility, this note serves as a discharge summary if further physical therapy visits did not occur. Refer to filed flowsheet for further details. Following therapy session, patient left in bed, with bed alarm on , with call light within reach, with RNDianelys aware, with therapy cues visible on white board, all lines/tubes intact. * Mp Carbone RN - 07/20/2024 9:12 AM CDT Patient states he is refusing dialysis today, notified Dr Mac. * Martha Renner - 07/20/2024 8:32 AM CDT [facility] Nephrology Progress Note Brief Hospital Course: Andrey Giron is a 64 year old male w/ PMH significant for basal cell carcinoma to left nares s/p resection and reconstruction, left lung adenocarcinoma, 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 Nephrology serviced was [facility] on 07/18 for HD. ENT was consulted for flap reconstruction and patient is scheduled for procedure on 07/23. INTERVAL HISTORY: No reported issues overnight. VSS in past 24h. Patient was seen during AM rounds. He refused to go for scheduled dialysis session today and expressed wanting to be discharged as he is not to have surgery until the following Tuesday. Patient was advised on risks and benefits of skipping/delaying dialysis; however, he was adamant wanting to leave and receive dialysis as OP at a later time. BP Readings from Last 3 Encounters: 07/20/24 132/72 06/18/24 111/71 05/24/24 121/78 Hospital Medications: acetaminophen 1,000 mg Oral q6h finasteride 5 mg Oral QDAY gabapentin 100 mg Oral TID guaiFENesin ER 12hr 600 mg Oral q12h polyethylene glycol 3350 17 g Oral QDAY sevelamer carbonate 800 mg Oral TID WC tamsulosin 0.4 mg Oral QDAY Physical Exam: Vitals: 07/19/24 1311 07/19/24202007/19/24204907/20/24 0742 BP: 122/66 127/71 132/72 Pulse: 78 68 81 78 Resp: 18 18 17 20 Temp: 98.3 ??F (36.8 ??C) 98.8 ??F (37.1 ??C) 98 ??F (36.7 ??C) SpO2: 94% 98% 91% 90% Weight: Height: Intake/Output Summary (Last 24 hours) at 07/20/2024 0843 Last data filed at 07/20/2024 0443 Gross per 24 hour Intake 990 ml Output 550 ml Net 440 ml General: laying comfortably in bed, NAD HEENT: Head NC/AT, flap to right nare, EOMI, HD catheter to RIJ Respiratory: CTA B/L, normal respiratory effort, tenderness to L chest wall Cardiovascular: RRR; no murmurs appreciated Gastrointestinal: Soft, non-tender, non-distended abdomen; bowel sounds present : bilateral nephrostomy tubes in place with clear//light yellow urine output Extremities: no edema Musculoskeletal: No gross deformities Skin: warm, dry Neurologic: AxO x4, no focal neurologic deficits Psychiatric: Calm, cooperative LABS: Recent Labs Component Name 07/20/2415407/19/2414807/18/24144 NA 139 138 138 POTASSIUM 4.0 3.8 5.4* CL 101 101 112* CO2 23 26 13* BUN 51* 34* 82* CREATININE 9.06* 7.59* 12.10* Recent Labs Component Name 07/20/2415407/19/2414807/18/24144 CALCIUM 9.2 8.4 8.5 PHOS 5.6* 4.9 4.7 No results for input(s): PTHINTACT , [id number] in the last 26293 hours. Recent Labs Component Name 11/01/24 0155 10/31/24 0149 10/30/24 0145 WBC 7.9 8.9 11.1* HGB 10.8* 10.7* 10.5* No results for input(s): IRON , TIBC , FERRITIN in the last 49502 hours. ASSESSMENT Andrey Giron is a 64 year old male w/ PMH significant for basal cell carcinoma to left nares s/p resection and reconstruction, left lung adenocarcinoma, ESRD on HD (MWF) 2/2 obstructive uropathy who presents to [facility] on 07/17 for planned surgery. Nephrology service consulted for HD. #ESRD on HD - Renal failure secondary to obstructive uropathy c/b hydronephrosis, bladder distension that has been refractory to medical management; currently has B/L nephrostomy tubes in place - On HD MWF for past 6 months (goes to [facility] with Dr. Verma) - Access: currently through RIJ Perm Cath; however, has new, unused RUE AV fistula (created 03/2024) - Last dialyzed on 07/18 - Today, Cr 9.06 (from 7.59), BUN 51 (from 34), K 4 (from 3.8), CO2 23 (from 26) - Patient refused going for scheduled dialysis today. Discussed with patient in detail role of dialysis in removal of metabolic waste products and regarding risks of missing/postponing dialysis including AMS, arhythmia, fatigue SOB, N/V. Offered arranging late session dialysis today or early session of dialysis tomorrow prior to discharge; however, patient remains adamant on being discharged today. Recommended that patient arrange for dialysis session as OP today before discharge. RECOMMENDATIONS - Advised patient to go for HD today either as inpatient or at his HD center (see above) - Patient is schedule for OR on Tuesday (07/23); however, we anticipate that he will need HD prior tosurgery - Can plan for HD first session if OR schedule permits Patient will be seen and discussed with attending physician, Dr. Resendiz. Martha Renner Medical Student 07/20/24, 1:01 PM Associated attestation - Teodoro Resendiz MD - 07/20/2024 3:02 PM CDT I have verified the documentation of the medical student including all history, exam, and medical decision-making details. I have personally performed a physical exam and have personally reviewed thedata to support my medical decision-making as outlined in the medical student???s note, and I arrive independently at the same conclusion. 07/20/2024 3:01 PM Teodoro Resendiz MD Please plan of care note. Will put dialysis orders in for tomorrow if patient agrees to dialyze. * Mp Carbone RN - 07/20/2024 7:17 AM CDT Pre-Dialysis Report Diagnosis (BRYAN/CRF): CRF Non-Renal Diagnosis lung nodule No active isolations Allergies No Known Allergies Code Status: full Does patient have signs or symptoms of respiratory infection (fever, cough, shortness of breath): CONGESTED COUGH Orientation Status: X4 On telemetry/Rhythm: yes Oxygen/ Intubated: RA Any medications given : SEE MAR Need for pain medications: NO Blood pressure issues: NO On any drips: NS Is patient diabetic: no Any labs to draw: NO Any other procedures today: NO Any concerns about this patient: NO Any medications to be given with dialysis: hep lock Due date of CVC dressing change- 07/25/24 * Mariposa Caceres - 07/19/2024 9:21 PM CDT Problem: Pain/Discomfort Goal: Patient exhibits reduced pain/discomfort as evidenced by pain scores Outcome: Progressing Goal: Patient uses pharmacological and non-pharmacological pain management strategies. Outcome: Progressing Problem: Fall Risk Goal: Fall risk and fall related injury risk are minimized (interventions related to the fall risk can be found in the flowsheet documentation) Outcome: Progressing Problem: Hemodynamic Status/Cardiac Output Goal: Patient has stable vital signs and fluid balance Outcome: Progressing Problem: Fluid and Electrolyte Imbalance Goal: Fluid and electrolyte balance are achieved/maintained Outcome: Progressing * Martha Renner C - 07/19/2024 2:11 PM CDT [facility] Nephrology Progress Note Brief Hospital Course: Andrey Giron is a 64 year old male w/ PMH significant for basal cell carcinoma to left nares s/p resection and reconstruction, left lung adenocarcinoma, ESRD on HD (MWF) 2/2 obstructive uropathy who presents to [facility] on 07/17 for planned MANISHA wedge resection with CTS. Nephrology serviced was [facility] on 07/18 for HD. INTERVAL HISTORY: No reported issues overnight; VSS. Chest tube was removed this AM. Patient was seen during AM rounds. Stated he tolerated HD yesterday well. Now also breathing betterand more comfortable without the chest tube. Reported no other complaints. Today, Cr 7.59 (from 12.10), BUN 34 (from 82), K 3.8 (from 5.4), CO2 26 (form 13) Hospital Medications: acetaminophen 1,000 mg Oral q6h finasteride 5 mg Oral QDAY gabapentin 100 mg Oral TID guaiFENesin ER 12hr 600 mg Oral q12h polyethylene glycol 3350 17 g Oral QDAY sevelamer carbonate 800 mg Oral TID WC tamsulosin 0.4 mg Oral QDAY Physical Exam: Vitals: 07/18/24 2346 07/19/24 0450 07/19/24 0825 07/19/24 1311 BP: 117/70 118/66 128/79 122/66 Pulse: 90 79 78 Resp: 18 18 18 Temp: 98.3 ??F (36.8 ??C) 97.9 ??F (36.6 ??C) 98.3 ??F (36.8 ??C) SpO2: 90% 94% 94% Weight: Height: Intake/Output Summary (Last 24 hours) at 07/19/2024 1617 Last data filed at 07/19/2024 1300 Gross per 24 hour Intake 1130 ml Output 1020 ml Net 110 ml General: laying comfortably in bed, NAD HEENT: Head NC/AT, flap to right nare, EOMI, HD catheter to RIJ Respiratory: CTA B/L, normal respiratory effort, tenderness to L chest wall Cardiovascular: RRR; no murmurs appreciated Gastrointestinal: Soft, non-tender, non-distended abdomen; bowel sounds present : bilateral nephrostomy tubes in place with clear//light yellow urine output Extremities: no edema Musculoskeletal: No gross deformities Skin: warm, dry Neurologic: AxO x4, no focal neurologic deficits Psychiatric: Calm, cooperative LABS: Recent Labs Component Name 07/19/2414807/18/2414407/17/24 1041 NA 138 138 140 POTASSIUM 3.8 5.4* 5.0* CL 101 112* 114* CO2 26 13* 14* BUN 34* 82* 73* CREATININE 7.59* 12.10* 11.41* Recent Labs Component Name 07/19/2414807/18/2414407/17/24 1041 CALCIUM 8.4 8.5 9.0 PHOS 4.9 4.7 4.7 No results for input(s): PTHINTACT , [id number] in the last 43395 hours. Recent Labs Component Name 07/19/2414807/18/2414407/17/24 1041 WBC 8.9 11.1* 9.1 HGB 10.7* 10.5* 12.0* No results for input(s): IRON , TIBC , FERRITIN in the last 87486 hours. ASSESSMENT Andrey Giron is a 64 year old male w/ PMH significant for basal cell carcinoma to left nares s/p resection and reconstruction, left lung adenocarcinoma, ESRD on HD (MWF) 2/2 obstructive uropathy who presents to [facility] on 07/17 for planned surgery. Nephrology service consulted for HD. #ESRD on HD - Renal failure secondary to obstructive uropathy? (see below) - Receives HD MWF at [facility] with Dr. Verma - Access: currently through RIJ Perm Cath; however, has new, unused RUE AV fistula (created 03/2024) - Last dialyzed on 07/18 - Today, Cr 7.59 (from 12.10), BUN 34 (from 82), K 3.8 (from 5.4), CO2 26 (form 13) #Obstructive uropathy #BPH - Per [facility] note 06/17/2023, patient has renal failure secondary to urinary retention. Patient has a history of bilateral hydronephrosis and bladder distention seen on CT and renal US. Also has history of hematuria with clots. Patient has undergone cystoscopy clot evacuation and fulguration of medial lobe of prostate. He was primarily being managed with multiple medications and chronic? Rubio catheter. There has been discussions regarding TURP but patient was lost to follow up. He later presented with gross hematuria and renal failure for which cystoscopy was attempted but failed dueto inability to find ureteral orifices. Bilateral nephrostomy tubes were then placed and have been present as of 01/10/2024. Per patient, nephrostomy tubes were placed around the time he began receiving HD. RECOMMENDATIONS - Plan for HD first thing tomorrow AM in anticipation of possible procedure with ENT - Maintain MWF HD schedule while inpatient - Monitor RFP, electrolytes, UOP - Switch to Regular Diet when not NPO Patient will be seen and discussed with attending physician, Dr. Resendiz. Martha Renner Medical Student 07/19/24, 4:17 PM Associated attestation - Teodoro Resendiz MD - 07/19/2024 10:35 PM CDT I have verified the documentation of the medical student including all history, exam, and medical decision-making details. I have personally performed a physical exam and have personally reviewed thedata to support my medical decision-making as outlined in the medical student???s note, and I arrive independently at the same conclusion. 07/19/2024 10:34 PM Teodoro Resendiz MD Patient not happy with renal diet , switch to regular diet , iHD in am. * Santiago Hanks RN - 07/19/2024 12:33 PM CDT Problem: Tobacco Use Goal: Inpatient tobacco-use cessation counseling participation Outcome: Progressing Problem: Pain/Discomfort Goal: Patient exhibits reduced pain/discomfort as evidenced by pain scores Outcome: Progressing Goal: Patient uses pharmacological and non-pharmacological pain management strategies. Outcome: Progressing Goal: Patient verbalizes acceptable level of pain relief and ability to engage in desired activity. Outcome: Progressing Problem: Fall Risk Goal: Fall risk and fall related injury risk are minimized (interventions related to the fall risk can be found in the flowsheet documentation) Outcome: Progressing Problem: Hemodynamic Status/Cardiac Output Goal: Patient has stable vital signs and fluid balance Outcome: Progressing Problem: Fluid and Electrolyte Imbalance Goal: Fluid and electrolyte balance are achieved/maintained Outcome: Progressing Problem: Mobility Goal: STG - Patient will ambulate Outcome: Progressing * Connie Echols APRN-CNP - 07/19/2024 9:25 AM CDT Chest tube removal Left chest tube suction discontinued Suture removed in its entirety Chest tube removed intact at end expiration, occlusive dressing with xeroform and 4x4 gauze applied. Tolerated well, but was premedicated with dilaudid 0.5 mg IV CXR tomorrow am * Wilma Pal OT - 07/19/2024 8:16 AM CDT [facility] Physical Medicine and Rehabilitation Occupational Therapy Initial Evaluation Note Patient: Andrey Giron [facility] Record Number: [id number] Date of : 1960 Age: [age] year old PPE worn by staff: gloves;mask - procedural PPE worn by patient: gown - patient, clean;socks - clean Tech: n/a. Patient seen as cotx with PT due to anticipated level of assist, skilled needs Recommendations: Discharge OT Discharge Recommendations: Patient may return home without the need for ongoing skilled therapy services post-hospitalization (return to previous level of care) In addition to the 1:1 evaluation of the patient, additional eval time was spent completing the chart review prior to the assessment, completing the multidisciplinary plan of care and education plan post evaluation and communicating results of the eval to other treatment team members. Nurse and Physical Therapy contacted regarding patient status and/or discharge plan. Physician Orders: Evaluation and Treat Activity Level: as tolerated DIAGNOSIS: Patient Active Problem List: Basal cell carcinoma (BCC) of left nasal sidewall Malignant neoplasm of upper lobe of right lung (HCC) Past Medical History: Diagnosis Date Basal cell carcinoma ESRD on dialysis (HCC) M/W/F History of blood transfusion SUBJECTIVE: Subjective: Pleasant and agreeable to therapy PATIENT GOALS: Patient's Primary Concern: Pain mgmt, d/c home Home Situation: Type of Residence: Group Home (for rehab) Home Structure: One Story Primary Bedroom: First Floor Primary Bathroom: First Floor Equipment at Home: None Prior Level of Functioning: Mobility: Ambulate-In Home ;Independent;Without Assistive Device Fallen Within 6 Mos: No Have Help at Home?: Yes, there is help at home now Who assists you at home?: Staff Oxygen at Home: No Pain Assessment: Pain Location #1 Pain Scale/Observation: Numeric (0-10) Pain Rating Score #1: 7 Pain Location : Chest (due to chest tube) Pain Orientation: Left Pain Intervention(s): Non-pharmacological Non-pharmacological interventions: Reposition;Education OBJECTIVE: At start of therapy session, patient found in bed General Appearance: Adult male, resting in bed, NAD LDA: Floor: IVs: Peripheral line, Oxygen: Nasal Cannula , Chest tube (to continuous suction), and nephrostomy tubex2 Edema: No edema noted Vitals: (*Assess the 3 levels of oxygen saturations both for room air and 02 unless rest on room air is 88% or less). Rest BP: 128/79 HR: 80 Sp02 Sp02 98% Room Air Ex/Gait/Activity Without 02 BP: HR: 128 Sp02 95% Room Air Post Activity BP: 156/88 HR: 91 Sp02 96% Room Air Mental Status/Cognition: Level of Consciousness-Adult: Alert Orientation Level: Oriented X4 Cognition: Follows one step commands Attention Span: Attends with cues to redirect Following Commands: Follows one step commands consistently UE ROM: RUE: AROM WFL LUE: AROM WFL Strength: RUE: WFL LUE: WFL UE Tone RUE: no abnormal tone noted LUE: no abnormal tone noted Coordination: intact serial opposition for bilateral hands UE Sensation RUE: intact LUE: intact Perception: Inattention/Neglect: Appears intact Initiation: Appears intact Visual Motor Tracking: Able to track stimulus in all quads w/o difficulty Acuity: WDL Mobility: A gait belt and non-slip socks were used for all out of bed activity this date. Bed Mobility: Supine to Sit: Stand By Assist with HOB in semi-fowlers position Sit to Supine: Activity Does Not Occur (up in chair at end of session) Transfers: Sit to Stand: Stand By Assist Stand to Sit: Stand By Assist Transfer Device: Gait belt Functional Ambulation: Patient ambulated to/from bathroom followed by functional distance in mat[place]oros with min-SBA. Pushes portable suction cart with mobility. Balance: Balance Scales/Tests Used: Sitting: Static/Dynamic;Standing: Static/Dynamic Sitting - Static: Good Sitting - Dynamic: Good Standing - Static: Fair + Standing - Dynamic: Fair Activities of Daily Living Upper Body Dressing: Minimal Assistance Lower Body Dressing: Minimal Assistance Toileting: Activity Does Not Occur (no needs at time of tx) Splint Issued/Checked: n/a ACTIVITY TOLERANCE: Activity Tolerance: Tolerates ADLs without rest breaks AM-PAC 6 Clicks Daily Activity Raw Score:: 20 TREATMENT / EDUCATION / INTERVENTIONS: While performing OT, Patient was instructed in:functional mobility training, self-care training, safety awareness/fall precautions , discharge planning, use of call light Presented to patient who demonstrates Fair understanding of instructions given. INFORMED CONSENT TO TREATMENT: Plan of care including recommended therapy, goals and frequency, discussed with patient who understands and agrees to proceed. ASSESSMENT: Functional performance limited due to: limited activities of daily living, pain, decreased functional mobility, and decreased functional balance. Patient continues to benefit from skilled Occupational Therapy to achieve the following functional goals. Short Term Goals: Goal Formation With patient Patient will perform grooming standing at sink and independently Patient will perform lower extremity dressing standing at sink and independently Patient will perform toileting independently Patient will transfer to standard toilet independently Hardware Supplies Sales Representative Goal(s): Patient to be independent with functional mobility and self-care and should be able to safely discharge to prior level of care. Plan: Patient continues to benefit from skilled therapy services., Continue with goals as established. If patient is discharged from the facility, this note serves as a discharge summary if further occupational therapy visits did not occur. Refer to filed flowsheet for further details. Following therapy session, patient left in bed. * Sherry Yuan, DO - 07/19/2024 8:13 AM CDT Images from the original note were not included. Thoracic Progress Note 07/19/2024 CC: left lung adenocarcinoma HPI: 64 year old year old male with PMH significant for left nasal sidewall basal cell carcinoma, ESRD on HD MWF and newly diagnosed left lung adenocarcinoma. Patient continues to smake despite smoking cessation counseling. 2 Days Post-Op S/P: left video-assisted thoracoscopy with left upper lobe wedge resection Interval history/events: Afebrile, HDS, room air Left chest tube to suction with no air leak, serosang drainage, 100ss output. Underwent HD yesterday. Possible ENT intervention on flap tomorrow. S: Awake, alert; c/o pain at chest tube site Medical, surgical, social and family histories reviewed Medications and allergies reviewed O: Temp Min: 97.2 ??F (36.2 ??C) Max: 98.6 ??F (37 ??C), Pulse Min: 75 Max: 116, Resp Min: 9 Max: 21, BP Min: 92/77 Max: 151/80 07/18 0701 - 07/19 0700 In: 1140 [P.O.:1140] Out: 1375 [Urine:1275; Drains:100] Exam General appearance: alert, cooperative, no distress Chest: port incision clean, dry and intact; left chest tube in place Lungs: clear to ausculation bilaterally; no wheezes or crackles Heart: regular rhythm, normal S1 and S2, without murmurs, rubs or gallops Abdomen: soft without mass, non-tender, non-distended, with normal bowel sounds Extremities: no edema Neurologic: mental status normal; alert and oriented X 3; cranial nerves II - XII are grossly intact Recent Labs Component Name 07/19/24 0149 07/18/245 07/17/24 1041 05/22/24 1454 WBC 8.9 11.1* 9.1 8.1 RBC 3.31* 3.29* 3.71* 3.53* HGB 10.7* 10.5* 12.0* 11.5* HCT 32.2* 32.9* 37.3* 33.6* MCV 97.3 100.0* 100.5* 95.2 MCHC 33.2 31.9 32.2 34.2 PLTCOUNT 189 211 240 198 NEUTPCT 70.8 86.2* - 70.8 LYMPHPCT 17.2 6.3* - 19.4 LYMPHABS 1.53 0.70* - 1.58 BASOABS 0.06 0.01 - 0.06 Recent Labs Component Name 07/19/24 0149 07/18/24 0145 07/17/24 1041 NA 138 138 140 POTASSIUM 3.8 5.4* 5.0* CO2 26 13* 14* BUN 34* 82* 73* CREATININE 7.59* 12.10* 11.41* GLUCOSE 104* 183* 90 CALCIUM 8.4 8.5 9.0 EGFR 7* 4* 4* Pathology: pending IMAGING: A/P: 64 year old male with MANISHA adenocarcinoma now s/p eft video-assisted thoracoscopy with left upper lobe wedge resection - pulm hygiene with IS, aerobika, vest - will pull CT today - multimodal pain management with scheduled tylenol and gabapentin, prn robaxin and oxycodone 01/26 - nephrology consult for HD - NPO at 0000 poss forehead flap surgery by ENT tomorrow - nephro consulted for inpatient HD Sherry Yuan, DO Thoracic Surgery 07/19/2024 8:13 AM TH INFORMATION DIRECTOR * Marbella Huerta, PT - 07/19/2024 8:11 AM CDT [facility] Physical Medicine and Rehabilitation Physical Therapy Initial Evaluation Note Patient: Andrey Giron [facility] Record Number: [id number] Date of : 1960 Age: [age] year old PPE worn by staff: gloves;mask - procedural PPE worn by patient: gown - patient, clean;socks - clean Co-eval with OT Recommendations: Discharge PT Discharge Recommendations: Patient would benefit from multidisciplinary therapy (return to previous facility) In addition to the 1:1 evaluation of the patient, additional eval time was spent completing the chart review prior to the assessment, completing the multidisciplinary plan of care and education plan post evaluation and communicating results of the eval to other treatment team members. Nurse contacted regarding patient status and/or discharge plan. Physician Orders: Evaluation and Treat PRECAUTIONS: Weight Bearing Status: (No restrictions) Activity Level: Activity as Tolerated DIAGNOSIS: Patient Active Problem List: Basal cell carcinoma (BCC) of left nasal sidewall Malignant neoplasm of upper lobe of right lung (HCC) Past Medical History: Diagnosis Date Basal cell carcinoma ESRD on dialysis (HCC) M/W/F History of blood transfusion SUBJECTIVE: Subjective: It just hurts PATIENT GOALS: Patient's Primary Concern: Return to previous facility Home Situation: Type of Residence: Group Home (for rehab) Home Structure: One Story Equipment at Home: None Prior Level of Functioning: Prior Level of Function Mobility: Ambulate-In Home ;Independent;Without Assistive Device Fallen Within 6 Mos: No Have Help at Home?: Yes, there is help at home now Who assists you at home?: Staff Oxygen at Home: No Activity at Home: Active Pain Assessment: Pain Location #1 Pain Scale/Observation: Numeric (0-10) Pain Rating Score #1: 7 Pain Location : Chest (due to chest tube) Pain Orientation: Left Pain Intervention(s): Medication (see MAR) OBJECTIVE: At start of therapy session, patient found in bed and with no alarm. General Appearance: 64 year old male laying in the bed, NAD LDAs: Floor: IVs: Peripheral line, Chest tube (to suction throughout session), and 2 nephrostomy drains Edema: no edema noted in bilateral lower extremities Vitals: (*Assess the 3 levels of oxygen saturations both for room air and 02 unless rest on room air is 88% or less). Rest BP: 128/79 HR: 80 Sp02 98% Room Air Ex/Gait/Activity Without 02 BP: HR: 128 Sp02 95% Room Air Post Activity BP: 156/88 HR: 91 Sp02 96% Room Air Observations: No signs of distress or patient c/o shortness of breath/dizziness during treatment. Mental Status/Cognition: Level of Consciousness-Adult: Alert Orientation Level: Oriented X4 Cognition: Follows one step commands Attention Span: Attends with cues to redirect ROM: RLE: AROM WFL LLE: AROM WFL Strength: RLE:WNL LLE: WNL Sensation: RLE: intact, no complaints of numbness or tingling LLE: intact, no complaints of numbness or tingling Mobility: A gait belt and non-slip socks were used for all out of bed activity this date. Chest tube left to suction throughout the treatment session. Bed Mobility: Supine to Sit: Stand By Assist with HOB in semi-fowlers position Sit to Supine: Activity Does Not Occur (up in chair at end of session) Transfers: Sit to Stand: Stand By Assist Stand to Sit: Stand By Assist Gait: Weight Bearing Status: (No restrictions) Distance Ambulated (ft): 250 FEET Ambulation: Assistive Device: Gait Belt (and pushing cart with portable suction) Ambulation: Level of Assistance: Stand By Assist;Minimum Assistance Ambulation: Gait Deviations: Ca - Decreased;Base of Support - Increased;Lateral trunk lean/sway Balance: Balance Scales/Tests Used: Sitting: Static/Dynamic;Standing: Static/Dynamic Sitting - Static: Good Sitting - Dynamic: Good Standing - Static: Fair + Standing - Dynamic: Fair - ACTIVITY TOLERANCE: Patient's activity tolerance: fair TREATMENT/INTERVENTIONS: evaluation AM-PAC 6 Clicks Mobility Raw Score:: 18 EDUCATION: While performing PT, Patient was instructed in:functional mobility training, safety awareness/fall precautions , discharge planning, use of call light, splinted coughing Presented to patient who demonstrates Good understanding of instructions given. INFORMED CONSENT TO TREATMENT: Plan of care including recommended therapy, goals and frequency, discussed with patient who understands and agrees to proceed. ASSESSMENT: Patient would benefit from additional Physical Therapy sessions to achieve the following functionalgoals to enhance independence. Short Term Goals: Goal Formation With patient Patient will perform bed mobility independently Patient will transfer sit to/from stand independently Patient will transfer bed to/from chair independently Patient will ambulate 250 feet independently Long-Term Goal(s): Patient to be baseline with functional mobility and self-care and should discharge to prior level of care. Equipment Issued: gait belt Plan: Gait training Transfer training Assistive device training Endurance training Bed mobility training Balance training Energy conservation techniques Safety awareness If patient is discharged from the facility, this note serves as a discharge summary if further physical therapy visits did not occur. Refer to filed flowsheet for further details. Following therapy session, patient left in patient bedside chair , with waffle seat cushion in place, with chair alarm on and positioned under patient's buttocks , with call light within reach, with Santiago TELLES aware, with therapy cues visible on white board, all lines/tubes intact (chest tube to suction in room). * Mariposa Caceres - 07/19/2024 12:28 AM CDT Problem: Pain/Discomfort Goal: Patient exhibits reduced pain/discomfort as evidenced by pain scores Outcome: Progressing Goal: Patient uses pharmacological and non-pharmacological pain management strategies. Outcome: Progressing Goal: Patient verbalizes acceptable level of pain relief and ability to engage in desired activity. Outcome: Progressing Problem: Fall Risk Goal: Fall risk and fall related injury risk are minimized (interventions related to the fall risk can be found in the flowsheet documentation) Outcome: Progressing Problem: Hemodynamic Status/Cardiac Output Goal: Patient has stable vital signs and fluid balance Outcome: Progressing Problem: Fluid and Electrolyte Imbalance Goal: Fluid and electrolyte balance are achieved/maintained Outcome: Progressing * Santiago Hanks RN - 07/18/2024 4:32 PM CDT Problem: Tobacco Use Goal: Inpatient tobacco-use cessation counseling participation Outcome: Progressing Problem: Pain/Discomfort Goal: Patient exhibits reduced pain/discomfort as evidenced by pain scores Outcome: Progressing Goal: Patient uses pharmacological and non-pharmacological pain management strategies. Outcome: Progressing Goal: Patient verbalizes acceptable level of pain relief and ability to engage in desired activity. Outcome: Progressing Problem: Fall Risk Goal: Fall risk and fall related injury risk are minimized (interventions related to the fall risk can be found in the flowsheet documentation) Outcome: Not Progressing Problem: Hemodynamic Status/Cardiac Output Goal: Patient has stable vital signs and fluid balance Outcome: Progressing Problem: Fluid and Electrolyte Imbalance Goal: Fluid and electrolyte balance are achieved/maintained Outcome: Progressing Problem: Infection Goal: Signs and symptoms of infections are decreased or avoided Outcome: Progressing * Tereza Chavez RN - 07/18/2024 2:45 PM CDT POST HD NOTE: 07/18/24 1416 Treatment Status Start Time 1039 Stop Time 1408 Interrupted Minutes 0 Min Duration of Treatment (minutes) 209 minutes Hemodialysis AV Access Fistula Right Wrist Placement Date/Time: (c) (c) Dialysis Access Type: Fistula Access Location: Right Wrist Access Descriptor New Dressing Status None Access Site Evaluation [place] Hemodialysis Tunneled Catheter Internal Jugular Placement Date/Time: 01/18/24 0000 Placed by: Place 4 months ago per pt Dialysis Tunneled Catheter Location: Internal Jugular Hemodialysis Cath Orientation: Right Catheter Access date 07/18/24 Catheter Access Time 1416 Site/Line Assessment WDL Red Lumen Status Capped Blue Lumen Status Capped Dressing Status Clean, Dry and Intact Dressing Type Transparent;Occlusive;Chlorehexidine Impregnated Dressing Change Date 07/18/24 Dressing Change Due 07/25/24 Cap Change Date 07/18/24 Vital Signs Temp 98.2 ??F (36.8 ??C) Temp Source Oral Pulse 95 Resp 18 SpO2 91 % BP 112/61 MAP 77 Patient Position Lying Pain Location #1 Pain Scale/Observation N Pain Rating Score #1 3 Psychosocial Psychosocial (WDL) WDL Cardiovascular Cardiovascular (WDL) WDL Gastrointestinal Gastrointestinal (WDL) WDL Skin Skin (WDL) Exceptions Skin Condition Incision During Dialysis Fluids Removed (Not calc.in I&O) 400 During Dialysis Comment POST HD Post Hemodialysis Patient Response to Treatment PT TOLERATED HD WELL Post Dialysis Patient Status Treatment Completed Ultrafiltration Amount (ml) 0 Dialyzer Clearance Clear Amount of blood processed (Liters) 69.4 Post Hemodialysis Comment CATHETER LUMEN HEPARIN LOCKED V.S.S. [place] Charge entered in Charge Capture Yes Oxygen Therapy $ O2 DEVICE Room Air Respiratory Respiratory (WDL) WDL (WHEEZING NOTED ON LEFT SIDE) * Drea Hess, PT - 07/18/2024 2:00 PM CDT [facility] Department of Physical Medicine & Rehabilitation Patient: Andrey Giron Med Record Number: [id number] Date of : 1960 Age: [age] year old 07/18/24 1400 Missed Visit Missed Visit Procedure Off Floor Patient off the floor Dialysis PT orders received and chart reviewed. Pt currently off the floor for HD. Will continue to follow for PT evaluation. * Carolyn Hanley RN - 07/18/2024 12:00 PM CDT Care Coordination Initial Assessment Expected Discharge Date: 07/19/2024 Expected Discharge Disposition: [facility] Facility Transportation at Discharge: Pt stated facility would pick him up in van/bus Prior Level of Care: Group Home - Skilled Facility Prior to Admit Provider: [facility] Comments: Pt admitted for L VATS with left upper lobe wedge resection. Pt in dialysis, spoke with pt's daughter. Pt resides in SNF. Pt will return at discharge. Spoke with pt and updated assessment. Lives with: Other (Comment) ([facility]) Physical Limitations: None Requires Assistance With: housekeeping, meal prep Preferred Pharmacy: [facility] - [address] [place], [place] [id number] [address] [id number] READMISSION RISK SCORE is 15 at 12:36 PM 07/18/2024. Met with daughter Family Support (name and phone): Extended Emergency Contact Information Primary Emergency Contact: ARI GIRON Mobile Relation: Daughter Publications Editor needed? No Patient or community health program representative requests care coordination reach out to family or caregiver listed above regarding discharge planning and at time of discharge? Yes Actual Level of Care/Dispostion Details Durable Medical Equipment Planning Equipment at Home: Walker;Other (Comment) (Facility equipment) Type of Walker: Front Wheeled Walker no longer uses. Anesthesiology Physician Referral: Yes Will continue to follow. For any questions or needs please contact: Tractor Mechanic/Social Work Name/Phone number: Carolyn Hanley RN * Tereza Chavez RN - 07/18/2024 10:59 AM CDT Problem: Hemodynamic Status/Cardiac Output Goal: Patient has stable vital signs and fluid balance Outcome: Progressing Problem: Fluid and Electrolyte Imbalance Goal: Fluid and electrolyte balance are achieved/maintained Outcome: Progressing Problem: Infection Goal: Signs and symptoms of infections are decreased or avoided Outcome: Progressing * Alexa Anderson - 07/18/2024 10:08 AM CDT I am aware of this patient's admission, I will be following this dialysis patient for any needs while an inpatient, and keeping their clinic informed of their progress while admitted. Records were forwarded to the clinic for their review. Spoke with Sloane at [facility] and she was able to confirm patient's OP HD schedule [facility] Days: MW Time: 10:00am Doctor: Dr Verma 07/18/2024 11:39 AM Meet with patient in patient's room. Patient voiced no concerns with OP HD. Documented acknowledgement of choice: Yes [facility] Ascom: [phone] Office: [phone] * Tereza Chavez RN - 07/18/2024 9:38 AM CDT Pre-Dialysis Report Diagnosis (BRYAN/CRF): CRF Non-Renal Diagnosis VATS with MANISHA lingular sparing segmentectomy No active isolations No Known Allergies Code Status: full Does patient have signs or symptoms of respiratory infection (fever, cough, shortness of breath): CONGESTED COUGH Orientation Status: X4 On telemetry/Rhythm: YES SINUS RHTHTM Oxygen/ Intubated: ROOM Any medications given : SEE MAR Need for pain medications: NO Blood pressure issues: NO On any drips: NS Is patient diabetic/ Next Glucose check due: / NO Is patient NPO: YES Any labs to draw: NO Any other procedures today: NO Any concerns about this patient: NO Any medications to be given with dialysis: NO Due date of CVC dressing change- 07/25/24 Primary RN educated on incapacitated nurse- N/A Report from: Santiago Hanks R Phone number: [phone] * Rola Ewing RCP - 07/18/2024 9:11 AM CDT Pt refuses vest therapy due to pain/ discomfort, RN agreed to assist pt with ambulating later today. Aerobika will also be implemented. * Connie Echols APRN-BRIDGE OPENER - 07/18/2024 8:13 AM CDT Images from the original note were not included. Thoracic Progress Note 07/18/2024 CC: left lung adenocarcinoma HPI: 64 year old year old male with PMH significant for left nasal sidewall basal cell carcinoma, ESRD on HD MWF and newly diagnosed left lung adenocarcinoma. Patient continues to smake despite smoking cessation counseling. 1 Day Post-Op S/P: left video-assisted thoracoscopy with left upper lobe wedge resection Interval history/events: Afebrile, HDS, room air Left chest tube to suction with no air leak, serosang drainage, 70 cc since OR S: Awake, alert; c/o pain at chest tube site Medical, surgical, social and family histories reviewed Medications and allergies reviewed O: Temp Min: 97.2 ??F (36.2 ??C) Max: 98.6 ??F (37 ??C), Pulse Min: 76 Max: 116, Resp Min: 9 Max: 21, BP Min: 92/77 Max: 151/80 07/17 0701 - 07/18 0700 In: 600 [I.V.:600] Out: 1170 [Urine:1100; Drains:70] Exam General appearance: alert, cooperative, no distress Chest: port incision clean, dry and intact; left chest tube in place Lungs: clear to ausculation bilaterally; no wheezes or crackles Heart: regular rhythm, normal S1 and S2, without murmurs, rubs or gallops Abdomen: soft without mass, non-tender, non-distended, with normal bowel sounds Extremities: no edema Neurologic: mental status normal; alert and oriented X 3; cranial nerves II - XII are grossly intact Recent Labs Component Name 07/18/24 01407/17/24 1041 05/22/24 1454 WBC 11.1* 9.1 8.1 RBC 3.29* 3.71* 3.53* HGB 10.5* 12.0* 11.5* HCT 32.9* 37.3* 33.6* MCV 100.0* 100.5* 95.2 MCHC 31.9 32.2 34.2 PLTCOUNT 211 240 198 NEUTPCT 86.2* - 70.8 LYMPHPCT 6.3* - 19.4 LYMPHABS 0.70* - 1.58 BASOABS 0.01 - 0.06 Recent Labs Component Name 07/18/2414407/17/24 1041 05/23/24 0724 NA 138 140 138 POTASSIUM 5.4* 5.0* 4.4 CO2 13* 14* 21* BUN 82* 73* 59* CREATININE 12.10* 11.41* 10.53* GLUCOSE 183* 90 108 CALCIUM 8.5 9.0 8.6 EGFR 4* 4* 5* Pathology: pending IMAGING: A/P: 64 year old male with MANISHA adenocarcinoma now s/p eft video-assisted thoracoscopy with left upper lobe wedge resection - pulm hygiene with IS, aerobika, vest - con't chest tube to suction, possibly remove later today - multimodal pain management with scheduled tylenol and gabapentin, prn robaxin and oxycodone 01/26 - nephrology consult for HD - NPO for poss forehead flap surgery by ENT later today - CXR in am Connie Echols, MADHURI-BRIDGE OPENER Thoracic Surgery 07/18/2024 8:14 AM * NickiMariposa Meg - 07/18/2024 5:27 AM CDT Problem: Pain/Discomfort Goal: Patient exhibits reduced pain/discomfort as evidenced by pain scores Outcome: Progressing Goal: Patient uses pharmacological and non-pharmacological pain management strategies. Outcome: Progressing Problem: Fall Risk Goal: Fall risk and fall related injury risk are minimized (interventions related to the fall risk can be found in the flowsheet documentation) Outcome: Progressing * Mariposa Caceres Meg - 07/18/2024 1:06 AM CDT Pt arrived on floor with no chlorhexidine dressing on RU chest hemo cath. Site appears to be covered with two band aids. Pt was advised that site should be covered with central line dressing to keep it sterile to which he refused stating it irritates my skin when they put that kind of dressing on. Pt was asked multiple times to apply dressing to which he is still refusing. * Gabino Adamson MD - 07/17/2024 11:39 PM CDT Thoracic Surgery Post Op Check DATE: 07/17/2024 Andrey Giron (64 year old male) Admit Date: 07/17/2024 Hospital Day: Hospital Day: 0 POD: Day of Surgery Room: [facility]/ Procedure: Video-assisted thoracoscopic Left upper lobe Lingular sparing Segmentectomy Subjective: No acute events since surgery. HD stable and afebrile at this time. Pain is well controlled. No complaints at this time. Objective: Patient Vitals for the past 6 hrs: Temp Pulse Resp BP BP Method 07/17/242021 98 ??F (36.7 ??C) 103 16 133/82 Automatic 07/17/24 1930 97.4 ??F (36.3 ??C) 100 10 124/60 Automatic 07/17/24 1900 -- 98 9 139/73 Automatic 07/17/24 1830 -- 101 12 119/71 Automatic 07/17/24 1815 -- 96 10 112/62 Automatic 07/17/24 181 -- 97 12 114/64 Automatic 07/17/24 1805 -- 109 10 115/63 Automatic 07/17/24 1800 -- 96 10 111/67 Automatic 07/17/24 175 -- (!) 113 15 108/64 Automatic 07/17/24 175 -- (!) 110 11 109/64 Automatic 07/17/24 174 -- (!) 111 10 92/77 Automatic 07/17/24 1740 -- 108 9 -- -- Urine output post op: 175cc via nephrostomy tubes Physical Exam: Gen: NAD HEENT: AT/NC, EOMI, oropharynx clear CV: RRR Chest: Left chest tube to suction without air leak, dressing without strikethrough, incision c/d/I with overlying skin glue Pulm: Nonlabored respirations Abd: Soft, NT/ND MSK: WWP, no c/c/e Neuro: Moving all extremities, no focal deficits Psych: Appropriate mood and affect Assessment and Plan: Andrey Giorn is a 64 year old male with Malignant neoplasm of left lung POD#0 s/p Video-assisted thoracoscopic Left upper lobe Lingular sparing Segmentectomy and doing well at the post-operative check -HD stable, afebrile -Pain well tolerated -Strict I&Os -Incisions c/d/I -Continue current care Gabino Adamson MD Department of Surgery, PGY-1 07/17/2024 11:39 PM * Margarette Oconnor, RN - 07/17/2024 5:38 PM CDT Pt getting Vest therapy at this time. Tolerating well. documented in this encounter H&P Notes * Augustine Jimenez MD - 07/17/2024 2:03 PM CDT Images from the original note were not included. H&P update. We have been working on getting a MANISHA resection done for the past few weeks. One operation was canceled when his care facility failed to arrange transportation. We are planning for a MANISHA lingular sparing resection. I will coordinate with Dr. Mensah regarding thef/u for his forehead flap procedure. FEV1 >100% DLCO 57% The patient has no new concerns. Plan for HD during this admission. Augustine Powers MD Physician Specialty: Cardiothoracic Surgery Progress Notes Signed Encounter Date: 06/18/2024 Expand All Collapse All Thoracic Surgery Clinic Consult Patient Name: Andrey Giron Age/Gender: 64 year old male : 1960 PCP: Physician None Reason for consult: Left lung adenocarcinoma HPI: Andrey Giron is a 64 year old year old male with PMH significant for left nasal sidewall basal cell carcinoma, ESRD on HD MWF presenting today for evaluation of newly diagnosed left lung adenocarcinoma. The lung nodule was first noticed in March 2024 CT neck performed for the BCC. Denied chest pain, dyspnea, new cough. Of note, patient states that his brother had lung cancer treated with radiation. Patient smokes about 1/2 pack cigarettes per day for approximately 50 years. Past Medical History Past Medical History: Diagnosis Date Basal cell carcinoma ESRD on dialysis (HCC) M/W/F History of blood transfusion Past Surgical History Past Surgical History: Procedure Laterality Date BRONCHOSCOPY N/A 05/18/2024 N/A; BRONCHOSCOPY WITH ROBOT ASSIST, BRONCHOALVEOLAR LAVAGE, TRANSBRONCHIAL BIOPSIES, AND BRUSHINGS INSERTION DIALYSIS CATHETER Right tunneled IJ PLASTIC SURGERY PROCEDURE Left 05/23/2024 Left; RECONSTRUCTION LEFT NASAL/CHEEK DEFECT, WOUND DEBRIDEMENT, SKIN GRAFT PLASTIC SURGERY PROCEDURE N/A 05/23/2024 N/A; FOREHEAD FLAP Rhinoplasty Left 05/22/2024 Left; Left partial rhinectomy VASCULAR PROCEDURE/SURGERY 04/12/2024 CREATION ARTERIOVENOUS FISTULA Social History Social History Tobacco Use Smoking status: Every Day Packs/day: .5 Types: Cigarettes Smokeless tobacco: Never Vaping Use Vaping Use: Never used Substance Use Topics Alcohol use: Not Currently Drug use: Never Allergies No Known Allergies Family History No family history on file. Medications: acetaminophen (Tylenol) 500 MG tablet Take 1 (one) tablet by mouth every 8 hours as needed alum and mag hydroxide-simeth (Maalox Max) 400-400-40 MG/5ML suspension Take 5 mL by mouth every 6 hours as needed for Heartburn (Patient not taking: Reported on 05/22/2024) diphenhydrAMINE (Benadryl) 25 mg/50 mL infusion Take 25 (twenty five) mg by mouth every 6 hours as needed finasteride (Proscar) 5 MG tablet Take 1 (one) tablet by mouth once daily oxyCODONE, immediate release, (Roxicodone) 5 MG tablet Take 1 (one) tablet by mouth every 4 hours as needed polyethylene glycol 3350 (Miralax) 17 g packet Take by mouth once daily sevelamer (Renagel) 800 MG tablet Take 2 (two) tablets by mouth 3 times daily with meals sulfamethoxazole-trimethoprim (Bactrim DS; Septra DS) 800-160 MG tablet Take 1 (one) tablet by mouth once daily (Patient not taking: Reported on 06/18/2024) tamsulosin (Flomax) 0.4 MG capsule Take 1 (one) capsule by mouth once daily REVIEW OF SYSTEMS ROS negative except for as mentioned in HPI. PHYSICAL EXAM Vitals Vitals: 06/18/24 1402 BP: 111/71 Pulse: 92 Temp: 97.4 ??F (36.3 ??C) SpO2: 95% Weight: 93.4 kg (206 lb) Height: 1.727 m (5' 8 ) Estimated body mass index is 31.32 kg/m?? as calculated from the following: Height as of this encounter: 1.727 m (5' 8 ). Weight as of this encounter: 93.4 kg (206 lb). Constitutional: Appears well, no distress Eyes: Conjunctiva and lids normal ENT/Mouth: Healing wound from previous L basal cell carcinoma surgery Respiratory: Normal repiratory effort without retractions Cardiovascular: Regular rate GI: Abdomen soft, non-distended without mass or tenderness Neurological: Oriented to person, place and time Psychiatric: Normal judgement/speech/memory and insight into condition Recent Labs: Recent Labs Component Name 05/22/24 1454 WBC 8.1 HGB 11.5* HCT 33.6* Recent Labs Component Name 05/23/24 0724 NA 138 CL 105 CO2 21* BUN 59* CREATININE 10.53* No results for input(s): PT , PTT , INR in the last 32688 hours. Imaging & Procedures: PET CT 05/07/24 1. Hypermetabolic left apical pulmonary nodule suspicious for malignancy. 2. No FDG avid mediastinal lymphadenopathy. 3. Left nasal region with increased FDG uptake compatible with known diagnosis of basal cell carcinoma. No FDG avid cervical lymphadenopathy. CT Chest Wo Con 05/18/24 1.There is a 1.8 x 1.8 x 1.8 cm spiculated nodule in the left lung apex concerning for malignancy. 2.Thyroid nodules can be further evaluated with a thyroid ultrasound. XR Chest 05/18/24 1.No pneumothorax or pleural effusion. 2.Spiculated nodule at the left lung apex is not well-characterized on this exam. Pathology: Pathology results of left upper lung lobe specimen showing moderately to poorly differentiated adenocarcinoma. Assessment and Plan: Andrey Giron is a 64 year old year old male newly diagnosed adenocarcinoma of the left upper lung. Patient with extensive history of cigarette use. Counseled on the importance of smoking cessation for lung cancer, basal cell carcinoma and overall health but patient is reluctant to stop. Notified that he will need PFTs prior to surgery and will attempt to schedule sooner appointment. Patient does need further surgery for the nasal BCC and will attempt to perform surgical resection at same time but informed on the time sensitive nature of this lung cancer as resection may not be possible ifmass invades surrounding structures. Note not complete until signed by attending physician Dr. Jimenez. Crystal Snow, MS4 Medical Student [employer] [facility] [employer] Attending Note Pt seen and examined with the medical student Above H&P has been reviewed and revised I was present and performed entire physical exam and completed all medical decision making My separate note: This is a 64-year-old man with skin cancer which is eroded into the top of his nose. Patient has undergone surgical resection and awaits a second stage reconstruction operation. I spoke with Dr. Ritesh Mensah of the ENT and Dr. Mensah informs me that the follow-up operation does not require significantmorbidity. Patient also has an adenocarcinoma that is biopsy-proven of his left upper lobe. I recommended the patient that we pursue a l eft upper lobe lingular sparing resection. I would do this sooner rather than later as the lesion appears to be abutting the mediastinal fat. I would like to offer the resection before this becomes a T4 lesion. Patient's lung function studies are scheduled for 1025. I think it is important that we move this study up so as to not further delay his care. I will coordinate an operation with Dr. Mensah. I spoke with aMkenna and he tell s me that his follow-up operation will only entail 15 to 30 minutes of surgery. The patient [place] significant [place] He informs me that his daughter who lives in [place] will be his power of associate attorney. The patient has multiple medical issues including need for dialysis and nephrostomy tubes in place. Patient was previously homeless. Patient continues to smoke and declines any intervent ion to help him quit. We will coordinate care and try and get this done in the next 1 to 2 weeks. documented in this encounter Procedure Notes * Teodoro Resendiz MD - 07/18/2024 11:30 AM CDT Procedure: Hemodialysis Indication: ESRD. This patient was seen and examined by me during dialysis today. 07/18/2024 Rt IJ TDC 3.5 hrs UF goal zero ( down from 1.5-2 lit) No edema , makes urine K2.0 Ca 2.5 Na 140 Co2 37 Qb 350 ml/min Qd 700 ml/min S/P MANISHA resection , CT in place . No anticoagulation on dialysis. documented in this encounter Consult Notes * Alan Godinez MD - 07/19/2024 11:56 AM CDT Otolaryngology Consult Patient name: Andrey Giron Date of : 1960 Today's Date: 07/18/2024 Reason for Consult: recent facial reconstruction for BCC defect Consult requested by:, team thoracic surgery HISTORY OF PRESENT ILLNESS: Andrey Giron is a 64 year old male PMH of ESRD on MWF dialysis, newly diagnosed MANISHA adenocarcinoma with nasal BCC s/p left partial rhinectomy on 05/22 and subsequent reconstruction on 05/23 (right paramedianforehead flap, FTSG). He is currently admitted to thoracic surgery service after left VATS and MANISHA wedge resection on 07/07. He seen in consultation for possible staged forehead flap takedown during this admission. He reports doing well since his surgery. No concerns with healing to his forehead or nose. ALLERGIES: No Known Allergies IMMUNIZATIONS: There is no immunization history on file for this patient. MEDICATIONS FOR CURRENT ENCOUNTER: No current facility-administered medications on file prior to encounter. Current Outpatient Medications on File Prior to Encounter Medication Sig Dispense Refill acetaminophen (Tylenol) 500 MG tablet Take 1 (one) tablet by mouth every 8 hours as needed alum and mag hydroxide-simeth (Maalox Max) 400-400-40 MG/5ML suspension Take 5 mL by mouth every 6 hours as needed for Heartburn (Patient not taking: Reported on 05/22/2024) diphenhydrAMINE (Benadryl) 25 mg/50 mL infusion Take 25 (twenty five) mg by mouth every 6 hours as needed finasteride (Proscar) 5 MG tablet Take 1 (one) tablet by mouth once daily oxyCODONE, immediate release, (Roxicodone) 5 MG tablet Take 1 (one) tablet by mouth every 4 hours as needed 12 tablet 0 polyethylene glycol 3350 (Miralax) 17 g packet Take by mouth once daily sevelamer (Renagel) 800 MG tablet Take 2 (two) tablets by mouth 3 times daily with meals sulfamethoxazole-trimethoprim (Bactrim DS; Septra DS) 800-160 MG tablet Take 1 (one) tablet by mouth once daily (Patient not taking: Reported on 06/18/2024) tamsulosin (Flomax) 0.4 MG capsule Take 1 (one) capsule by mouth once daily SCHEDULED MEDICATIONS: acetaminophen (Tylenol) tablet 1,000 mg, Oral, q6h finasteride (Proscar) tablet 5 mg, Oral, QDAY gabapentin (Neurontin) capsule 100 mg, Oral, TID guaiFENesin ER 12hr (Mucinex) tablet 600 mg, Oral, q12h polyethylene glycol 3350 (Miralax) packet 17 g, Oral, QDAY sevelamer carbonate (Renvela) tablet 800 mg, Oral, TID WC tamsulosin (Flomax) capsule 0.4 mg, Oral, QDAY [COMPLETED] heparin injection 4,800 Units, Intracatheter, Once [COMPLETED] HYDROmorphone (Dilaudid) injection 0.5 mg, Intravenous, Once CONTINUOUS MEDICATIONS: PRN MEDICATIONS: Or Or Or acetaminophen (Tylenol) tablet 650 mg, Oral, q6h PRN methocarbamol (Robaxin) tablet 750 mg, Oral, q6h PRN ondansetron (disintegrating) (Zofran ODT) tablet 4 mg, Oral, q6h PRN ondansetron (Zofran) injection 4 mg, Intravenous, q6h PRN oxyCODONE (immediate release) (Roxicodone) tablet 10 mg, Oral, q4h PRN oxyCODONE (immediate release) (Roxicodone) tablet 10 mg, Oral, q4h PRN oxyCODONE (immediate release) (Roxicodone) tablet 5 mg, Oral, q4h PRN oxyCODONE (immediate release) (Roxicodone) tablet 5 mg, Oral, q4h PRN SURGICAL HISTORY: Past Surgical History: Procedure Laterality Date BRONCHOSCOPY N/A 05/18/2024 N/A; BRONCHOSCOPY WITH ROBOT ASSIST, BRONCHOALVEOLAR LAVAGE, TRANSBRONCHIAL BIOPSIES, AND BRUSHINGS INSERTION DIALYSIS CATHETER Right tunneled IJ Lung Lobectomy Left 07/17/2024 Left; Video-assisted thoracoscopic Left upper lobe Lingular sparing Segmentectomy PLASTIC SURGERY PROCEDURE Left 05/23/2024 Left; RECONSTRUCTION LEFT NASAL/CHEEK DEFECT, WOUND DEBRIDEMENT, SKIN GRAFT PLASTIC SURGERY PROCEDURE N/A 05/23/2024 N/A; FOREHEAD FLAP Rhinoplasty Left 05/22/2024 Left; Left partial rhinectomy VASCULAR PROCEDURE/SURGERY 04/12/2024 CREATION ARTERIOVENOUS FISTULA MEDICAL HISTORY: Past Medical History: Diagnosis Date Basal cell carcinoma ESRD on dialysis (HCC) M/W/F History of blood transfusion FAMILY HISTORY: family history is not on file. SOCIAL HISTORY: Pediatric History Patient Parents Not on file Other Topics Concern Not on file Social History Narrative Not on file REVIEW OF SYSTEMS: 12 point review of systems performed which was negative except for above in HPI. EXAMINATION: BP 128/79 Pulse 79 Temp 97.9 ??F (36.6 ??C) (Oral) Resp 18 Ht 1.727 m (5' 8 ) Wt 91.3 kg (201 lb 3.2 oz) SpO2 94% BMI 30.59 kg/m?? General Appearance: No acute distress HEENT: Forehead flap inset to the nasal defect healing well. Forehead incision intact with some crusting superiorly. Neurological and Cranial Nerves: CN V and VII intact bilaterally, II-XII grossly normal ASSESSMENT Andrey Giron is a 64 year old male PMH of ESRD on MWF dialysis, newly diagnosed MANISHA adenocarcinoma with nasal BCC s/p left partial rhinectomy on 05/22 and subsequent reconstruction on 05/23 (right paramedianforehead flap, FTSG). He is currently admitted to thoracic surgery service after left VATS and MANISHA wedge resection on 07/07. He seen in consultation for possible staged forehead flap takedown during this admission. On exam forehead flap is healing well in the previous nasal defect. PLAN - If OR schedule permitting, will plan on division and inset of forehead flap tomorrow 07/20. If unable to perform tomorrow will tentatively plan on performing surgery on Monday 07/23. - Make NPO and hold anticoagulation at midnight - Consent obtained - Please page ENT with questions/concerns. Alan Godinez MD Otolaryngology Resident PGY-3 07/19/2024 11:59 AM Associated attestation - Ritesh Mensah MD - 07/19/2024 2:02 PM CDT I have seen and examined the patient, within 24hr of the consult being placed. Parts of the note were documented by the staff and/or resident physician. I have reviewed all documentation and agree with the note with the following additions/exceptions: On exam the patient has well vascularized forehead flap in place on the left nose We discussed the risks of surgery, division and inset forehead flap, pain, bleeding, infection, scarring, asymmetry, numbness, wound healing complications. He agrees to proceed Ritesh Mensah MD Painting Department Supervisor Facial Plastic and Reconstructive Surgery Otolaryngology- Head and Neck Surgery * Martha Renner - 07/18/2024 2:11 PM CDT [facility] Nephrology Consult Note Date of Admission: 07/17/2024 Date of Service: 07/18/2024 Consulting Service: Cardiothoracic Surgery Reason for Consult: ESRD on HD Brief Hospital Course: Andrey Giron is a 64 year old male w/ PMH significant for basal cell carcinoma to left nares s/p resection and reconstruction, left lung adenocarcinoma, ESRD on HD (MWF) 2/2 obstructive uropathy who presents to [facility] on 07/17 for planned MANISHA wedge resection with CTS. Nephrology serviced was consul [facility] on 07/18 for HD. Patient was seen at HD unit this AM. He is POD1 from MANISHA wedge resection. Reports some post-op discomfort/pain, but otherwise feels well while connected to HD machine. Dialysis Center: [facility] Dialysis Days: MWF Date if last dialysis: Access: R-IJ Permcath (also has RUE fistula, but not yet used) Casting Machine Operator Automatic: Dr. Verma Review of Systems (positives are bolded) CONSTITUTIONAL: fatigue, weight loss, fevers, chills, sweats, malaise, anorexia EYES: visual blurring, double vision, eye pain ENT: hearing loss, tinnitus, vertigo, epistaxis, bleeding gums RESP: shortness of breath, dyspnea on exertion, cough, pleuritic chest pain, wheezing CV: palpitations, syncope, chest pain, edema, orthopnea, PND GI: dysphagia, nausea, vomiting, abdominal pain, constipation, diarrhea : incontinence, dysuria, frequency, hematuria, kidney stone MSK: joint stiffness, swelling, pain NEURO: headaches, syncope, seizures, gait problems, tremor, balance, memory SKIN: rash, itching, bruising, lumps or bumps PSYCH: depressed mood, anxiety, suicidal or homicidal ideation ENDO: cold or heat intolerance, polyphagia, polydipsia, polyuria HEME: anemia, bleeding disorder, abnormal bruising, blood clots Past Medical History: Diagnosis Date Basal cell carcinoma ESRD on dialysis (HCC) M/W/F History of blood transfusion Past Surgical History: Procedure Laterality Date BRONCHOSCOPY N/A 05/18/2024 N/A; BRONCHOSCOPY WITH ROBOT ASSIST, BRONCHOALVEOLAR LAVAGE, TRANSBRONCHIAL BIOPSIES, AND BRUSHINGS INSERTION DIALYSIS CATHETER Right tunneled IJ Lung Lobectomy Left 07/17/2024 Left; Video-assisted thoracoscopic Left upper lobe Lingular sparing Segmentectomy PLASTIC SURGERY PROCEDURE Left 05/23/2024 Left; RECONSTRUCTION LEFT NASAL/CHEEK DEFECT, WOUND DEBRIDEMENT, SKIN GRAFT PLASTIC SURGERY PROCEDURE N/A 05/23/2024 N/A; FOREHEAD FLAP Rhinoplasty Left 05/22/2024 Left; Left partial rhinectomy VASCULAR PROCEDURE/SURGERY 04/12/2024 CREATION ARTERIOVENOUS FISTULA No family history on file. Social History: Social History Socioeconomic History Marital status: Spouse name: Not on file Number of children: Not on file Years of education: Not on file Highest education level: Not on file Occupational History Not on file Tobacco Use Smoking status: Every Day Current packs/day: 1.00 Average packs/day: 1 pack/day for 51.0 years (51.0 ttl pk-yrs) Types: Cigarettes Smokeless tobacco: Never Tobacco comments: Down to less than half a pack daily Vaping Use Vaping status: Never Used Substance and Sexual Activity Alcohol use: Not Currently Drug use: Never Sexual activity: Not on file Other Topics Concern Not on file Social History Narrative Not on file Social Determinants of Health Financial Resource Strain: Low Risk (05/23/2024) Overall Financial Resource Strain (CARDIA) Difficulty of Paying Living Expenses: Not hard at all Food Insecurity: No Food Insecurity (05/23/2024) Hunger Vital Sign Worried About Running Out of Food in the Last Year: Never true Ran Out of Food in the Last Year: Never true Transportation Needs: No Transportation Needs (05/23/2024) PRAPARE - Transportation Lack of Transportation (Medical): No Lack of Transportation (Non-Medical): No Stress: No Stress Concern Present (05/23/2024) [employer] [place] [employer] - Occupational Stress Questionnaire Feeling of Stress : Not at all Housing Stability: Low Risk (05/23/2024) Housing Stability Vital Sign Unable to Pay for Housing in the Last Year: No Number of Places Lived in the Last Year: 1 Unstable Housing in the Last Year: No Allergies: No Known Allergies Home Medications: No current facility-administered medications on file prior to encounter. Current Outpatient Medications on File Prior to Encounter Medication Sig Dispense Refill acetaminophen (Tylenol) 500 MG tablet Take 1 (one) tablet by mouth every 8 hours as needed alum and mag hydroxide-simeth (Maalox Max) 400-400-40 MG/5ML suspension Take 5 mL by mouth every 6 hours as needed for Heartburn (Patient not taking: Reported on 05/22/2024) diphenhydrAMINE (Benadryl) 25 mg/50 mL infusion Take 25 (twenty five) mg by mouth every 6 hours as needed finasteride (Proscar) 5 MG tablet Take 1 (one) tablet by mouth once daily oxyCODONE, immediate release, (Roxicodone) 5 MG tablet Take 1 (one) tablet by mouth every 4 hours as needed 12 tablet 0 polyethylene glycol 3350 (Miralax) 17 g packet Take by mouth once daily sevelamer (Renagel) 800 MG tablet Take 2 (two) tablets by mouth 3 times daily with meals sulfamethoxazole-trimethoprim (Bactrim DS; Septra DS) 800-160 MG tablet Take 1 (one) tablet by mouth once daily (Patient not taking: Reported on 06/18/2024) tamsulosin (Flomax) 0.4 MG capsule Take 1 (one) capsule by mouth once daily Hospital Medications: acetaminophen 1,000 mg Oral q6h finasteride 5 mg Oral QDAY gabapentin 100 mg Oral TID guaiFENesin ER 12hr 600 mg Oral q12h heparin 4,800 Units Intracatheter Once polyethylene glycol 3350 17 g Oral QDAY sevelamer carbonate 800 mg Oral TID WC tamsulosin 0.4 mg Oral QDAY 0.9% NaCl IV, , Last Rate: 20 mL/hr at 07/18/24 0850 Physical Exam: Vitals: 07/18/24 1303 07/18/24 1318 07/18/24 1333 07/18/24 1348 BP: 127/67 108/61 111/66 101/63 Pulse: 85 91 87 85 Resp: 18 18 18 18 Temp: SpO2: Weight: Height: Intake/Output Summary (Last 24 hours) at 07/18/2024 1411 Last data filed at 07/18/2024 0451 Gross per 24 hour Intake 600 ml Output 770 ml Net -170 ml General: laying comfortably in bed, NAD HEENT: Head NC/AT, flap to right nare, EOMI, HD catheter to RIJ Respiratory: expiratory wheezes present, normal respiratory effort, chest tube to left chest wall Cardiovascular: RRR; no murmurs appreciated Gastrointestinal: Soft, non-tender, non-distended abdomen; bowel sounds present : bilateral nephrostomy tubes in place with clear//light yellow urine output Extremities: no edema Musculoskeletal: No gross deformities Skin: warm, dry Neurologic: AxO x4, no focal neurologic deficits Psychiatric: Calm, cooperative Dialysis access: R-IJ Permcath LABS: Recent Labs Component Name 07/18/2414407/17/24104005/23/24 0724 NA 138 140 138 POTASSIUM 5.4* 5.0* 4.4 CL 112* 114* 105 CO2 13* 14* 21* BUN 82* 73* 59* CREATININE 12.10* 11.41* 10.53* Recent Labs Component Name 07/18/2414407/17/24104005/23/24 0724 CALCIUM 8.5 9.0 8.6 PHOS 4.7 4.7 6.9* No results for input(s): PTHINTACT , QFT2CUQEUF in the last 65095 hours. 25-OH Vitamin D = No results for input(s): HGBA1C , A1C , [id number] , EAG in the last 47444 hours. Recent Labs Component Name 07/18/2414407/17/24104005/22/24 1454 WBC 11.1* 9.1 8.1 HGB 10.5* 12.0* 11.5* No results for input(s): IRON , TIBC , FERRITIN in the last 66153 hours. IMAGING: No results found. ASSESSMENT Andrey Giron is a 64 year old male w/ PMH significant for basal cell carcinoma to left nares s/p resection and reconstruction, left lung adenocarcinoma, ESRD on HD (MWF) 2/2 obstructive uropathy who presents to [facility] on 07/17 for planned surgery. Nephrology service consulted for HD. #ESRD on HD - Renal failure secondary to obstructive uropathy? (see below) - Receives HD MWF at [facility] with Dr. Verma - Access: currently through RI Perm Cath; however, has new, unused RUE AV fistula (created 03/2024) - Today, Cr 12.10, BUN 82, K 5.4, CO2 13 - Proceed with HD today, maintain MWF schedule #Obstructive uropathy #BPH - Per [facility] note 06/17/2023, patient has renal failure secondary to urinary retention. Patient has a history of bilateral hydronephrosis and bladder distention seen on CT and renal US. Also has history of hematuria with clots. Patient was undergone cystoscopy clot evacuation and fulguration of medial lobe of prostate. He was primarily being managed with multiple medications and chronic? Rubio catheter. There has been discussions regarding TURP but patient was lost to follow up. Bilateral nephrostomy tubes were present on exam in 01/10/2024; however, unclear on chart review when thesewere placed. RECOMMENDATIONS - Complete HD today 3.5h w/o UF - Plan for repeat HD on Tuesday (07/20) if remains inpatient - Monitor RFP, electrolytes, UOP Patient will be seen and discussed with attending physician, Dr. Resendiz. Martha Renner Medical Student 07/18/24, 2:11 PM Associated attestation - Teodoro Resendiz MD - 07/18/2024 3:05 PM CDT I have verified the documentation of the medical student including all history, exam, and medical decision-making details. I have personally performed a physical exam and have personally reviewed thedata to support my medical decision-making as outlined in the medical student???s note, and I arrive independently at the same conclusion. 07/18/2024 3:03 PM Teodoro Resedniz MD ESKD due to obstructive uropathy , has bilateral nephrostomy tubes , been of HD via a Rt IJ TDC for6 months, here S/P MANISHA resection . See also procedure note . * FrancescoSteffenBrianSANTA levy - 07/18/2024 1:53 PM CDTAssociated Order(s): IP CONSULT TO BUFFER CHROME Social Work Progress Note Discharge Plan Disposition: SNF Transportation: Transportation at discharge: Ambulance Anticipated Discharge Date: 07/19/2024 Contacts: Extended Emergency Contact Information Primary Emergency Contact: ARI GIRON Mobile Relation: Daughter Publications Editor needed? No Comments: Pt is from [facility]. SW will follow up with facility to ensure pt canreturn. Name/Phone number: Brian Maya RAISE DRILL OPERATOR [id number] documented in this encounter OR Notes * Operative - Ritesh Mensah MD - 07/20/2024 5:00 PM CDT OPERATIVE REPORT NAME: Andrey Giron : 1960 CSN: [id number] DATE OF OPERATION: 07/20/2024 ATTENDING SURGEON: Ritesh Mensah MD Pre-Op Diagnosis: Basal cell carcinoma nose Post-Op Diagnosis: Same Procedure: -Division and inset forehead flap (CPT 77682) Dedenter Ernst Rivera MD Indications for procedure: Andrey Giron is a 64 year old male with a history of basal cell carcinoma on the nose. He underwent resection with Dr. Menezes and forehead flap with id for reconstruction 05/22/24. The patient has been admitted for thoracic surgery, and it was determined now would be the best time to take down theforehead flap. Surgical treatment was discussed in detail with the patient. All questions answered.The patient agreed to proceed with surgery and presents on this date for the scheduled procedure. Details of Procedure: After the patient was identified in the preoperative holding area, He was transported to the operating room. Upon arrival in the OR, the patient and intended procedure were reviewed. He was placed kalyan supine position in his bed. The patient was intubated by Anesthesia. The eyes were protected. Thepatient was examined. All planned incisions were marked. Lidocaine 1% with 1:100,000 epinephrine was injected into the incision sites. The patient was prepped and draped in the usual sterile manner, with betadine diluted with saline. The forehead flap was sharply divided. The right brow connection was excised with an elliptical incision. The dissection was carried into pre periosteal plane of the forehead. The skin edges were trimmed as appropriate. The donor site was closed with 5-0 Monocryl in the deep layer and 5-0 fast in the skin layer. At the nose, the superior 1/4 of the flap was elevated from the nasal dorsum. The subcutaneous tissue of the flap was thinned as needed. The flap was placed into the dorsum. [place] skinon the dorsum was excised to allow the upper portion of the forehead flap to fit into the defect. The flap was inset with 5-0 monocryl in the deep layer and 5-0 chromic in the skin layer Estimated Blood Loss: minimal Complications: None apparent. Condition: Stable I was present and performed all critical portions of the surgery. Ritesh Mensah MD Painting Department Supervisor Facial Plastic and Reconstructive Surgery Otolaryngology- Head and Neck Surgery * Brief Op Note - Sherry Yuan DO - 07/17/2024 3:20 PM CDT Brief Op Note Procedure: Video-assisted thoracoscopic Left upper lobe Lingular sparing Segmentectomy Patient Name: Andrey Giron Date of Service: 07/17/2024 Pre-Op Diagnosis: Malignant neoplasm of left lung Post-Op Diagnosis: same Surgeons and Role: * Augustine Jimenez MD - Primary * Sherry Yuan DO - Resident - Assisting Dedenter(s): Elizabeth MS3 Anesthesia Type: general ETT Complications: none Findings: L VATS with left upper lobe wedge resection. Lymph node stations: 3, 5, 6, and 10 sent for pathology. EBL: blood loss of 50 ml Urine Output : none IV Fluid Intake: 600 crystalloid Drains: Nephrostomy Tube Back;Left (Active) Nephrostomy Tube Output 200 07/17/24 1359 Status Patent;To [place] 07/17/24 1100 Site Assessment WDL 07/17/24 1100 Dressing Status Clean, Dry, Intact 07/17/24 1100 Dressing Type Occlusive 07/17/24 1100 Nephrostomy Tube Back;Right (Active) Nephrostomy Tube Output 200 07/17/24 1359 Status Patent;To [place] 07/17/24 1100 Site Assessment WDL 07/17/24 1100 Dressing Status Clean, Dry, Intact 07/17/24 1100 Dressing Type Occlusive 07/17/24 1100 Chest Tube #1 Coaxial 28 FR Left Chest (Active) Specimen(s): ID Type Source Tests Collected by Time Destination A : Left upper lobe wedge. Biopsy, Excision Lung, left lobe PATHOLOGY TISSUE Goran Jimenez MD 07/17/2024 1548 B : True margin. Biopsy, Excision Lung, left lobe PATHOLOGY TISSUE Augustine Jimenez MD 07/17/2024 1548 C : Station 5 lymph node. Biopsy, Excision Lung, left lobe PATHOLOGY TISSUE Augustine Jimenez MD 07/17/2024 1601 D : Station 6 lymph node. Biopsy, Excision Lung, left lobe PATHOLOGY TISSUE Augustine Jimenez MD 07/17/2024 1602 E : Station 3 lymph node. Biopsy, Excision Lung, left lobe PATHOLOGY TISSUE Augustine Jimenez MD 07/17/2024 1602 F : Station 10 lymph node. Biopsy, Excision Lung, left lobe PATHOLOGY TISSUE Goran Jimenez MD 07/17/2024 1602 Implant(s): * No implants in log * Sherry Yuan DO * Operative - Augustine Jimenez MD - 07/17/2024 3:20 PM CDT Procedure: Video-assisted thoracoscopic Left upper lobe wedge resection Patient Name: Andrey Giron Date of Service: 07/17/2024 Pre-Op Diagnosis: Malignant neoplasm of left lung Post-Op Diagnosis: same Surgeons and Role: * Augustine Jimenez MD - Primary * Sherry Yuan DO - Resident - Assisting Anesthesia Type: general ETT Complications: none Findings: This is a 64-year-old patient with multiple comorbidities including renal failure on chronic dialysis. We have been working with [place] [facility] to bring the patient into the hospital for this operation and after a several week delay the patient was able to make it. After he was intubated the patient was positioned lateral decubitus position with left side up. He was prepped and draped in usual standard manner. Single incision was made in the fifth interspace between the anterior mid axillary line. We initially explored the chest with a single incision and given a very fatty mediastinum and hilum, an additional incision in the mid axillary line higher in hisaxilla was required to permit exposure and dissection. The mass in the apex of his left upper lobe was easily identified and a wedge resection was performed using multiple firings of the stapling device. The specimen was removed in an Endo Catch bag and the frozen section was consistent with adenoca rcinoma with a negative margin. I then performed a somewhat tedious edmund sampling. This was made challenging especially with the amount of fat in the patient's mediastinum and hilum. I was able to identify station 5 and 6 nodes as well as the hilar station 10 nodes. The subcarinal space was filledwith fat and I could not identify any station 7 nodes however I did identify a station 3 lymph nodeanteriorly. A single 28 Syriac coaxial drain was placed into the chest using one of our thoracoscopy incisions and both incisions were then closed multiple layers using Vicryl suture. Patient tolerated procedure well sponge instrument counts were correct prior to completing the operation liposomal bupivacaine was infiltrated in chest wall creating intercostal field block. EBL: minimal blood loss Drains: Nephrostomy Tube Back;Left (Active) Nephrostomy Tube Output 150 07/18/24 0451 Status Patent;To [place] 07/17/242040 Site Assessment WDL 07/17/242040 Dressing Status Clean, Dry, Intact 07/17/242040 Dressing Type Occlusive 07/17/242040 Nephrostomy Tube Back;Right (Active) Nephrostomy Tube Output 150 07/18/24 0451 Status Patent;To [place] 07/17/242040 Site Assessment WDL 07/17/242040 Dressing Status Clean, Dry, Intact 07/17/242040 Dressing Type Occlusive 07/17/242040 Chest Tube #1 Coaxial 28 FR Left Chest (Active) Chest Tube Output 20 ML 07/18/24 0451 Output Description Sanguinous (red) 07/18/24450 Site Assessment WDL 07/18/24450 Status Patent;-20 cm Suction 07/18/24450 Patency Intervention Tip/Tilt 07/18/24450 Dressing Status Clean, Dry, Intact 07/17/242040 Dressing Type Gauze 07/17/242040 Airway Emergency Supplies Available Suction Device 07/17/242040 Specimen(s): ID Type Source Tests Collected by Time Destination A : Left upper lobe wedge. Biopsy, Excision Lung Resect Seg PATHOLOGY TISSUE Goran Jimenez MD 07/17/2024 1548 B : True margin. Biopsy, Excision Margin PATHOLOGY TISSUE Augustine Jimenez MD 07/17/2024 1548 C : Station 5 lymph node. Biopsy, Excision Lymph Node PATHOLOGY TISSUE Augustine Jimenez MD07/17/2024 1601 D : Station 6 lymph node. Biopsy, Excision Lymph Node PATHOLOGY TISSUE Augustine Jimenez MD07/17/2024 1602 E : Station 3 lymph node. Biopsy, Excision Lymph Node PATHOLOGY TISSUE Augustine Jimenez MD 07/17/2024 1602 F : Station 10 lymph node. Biopsy, Excision Lymph Node PATHOLOGY TISSUE Augustine Jimenez MD 07/17/2024 1602 Implant(s): * No implants in log * Augustine Jimenez MD documented in this encounter Plan of Treatment Upcoming Encounters Date Type Department Care Team (Late st Contact Info) Description 10/16/2024 1:30 PM HEALTH INFORMATION DIRECTOR Office Visit [facility] - ENT [address] [place] [address] [phone] Ritesh Mensah MD [address] [place] [address] [place] [address] Scheduled Orders Name Type Priority Associated Diagnoses Orde r Schedule HEMODIALYSIS INPATIENT Dialysis Routine ON CE for 1 Occurrences starting 07/21/2024 until 07/21/2024 documented as of this encounter Procedures Procedure Name Priority Date/Time Associated Diagnosis Comments XR CHEST 1VW PORTABLE Routine 07/21/2024 5:00 AM CDT Lung nodule CBC W AUTO DIFFERENTIAL Routine 07/21/2024 2:02 AM CDT Malignant neoplasm of upper lobe of right lung (HCC) CBC W/O DIFFERENTIAL Timed 07/21/2024 2:02 AM CDT Lung nodule BASIC METABOLIC PANEL (CALCIUM TOTAL) Timed 07/21/2024 2:02 AM CDT Lung nodule PHOSPHORUS BLOOD Timed 07/21/2024 2:02 AM CDT Lung nodule MAGNESIUM BLOOD Timed 07/21/2024 2:02 AM CDT Lung nodule W[place] FOREHEAD FLAP W/ PRSRV VASC PEDICLE 07/20/2024 4:20 PM CDT Basal cell carcinoma (BCC), unspecified site Case Notes REQUESTING 1530 START Special Needs SUPINE XR CHEST 2VW Routine 07/20/2024 9:49 AM CDT Lung nodule XR CHEST 1VW PORTABLE Routine 07/20/2024 5:20 AM CDT Lung nodule CBC W AUTO DIFFERENTIAL Routine 07/20/2024 1:55 AM CDT Malignant neoplasm of upper lobe of right lung (HCC) BASIC METABOLIC PANEL (CALCIUM TOTAL) Routine 07/20/2024 1:55 AM CDT Malignant neoplasm of upper lobe of right lung (HCC) PHOSPHORUS BLOOD Routine 07/20/2024 1:55 AM CDT Malignant neoplasm of upper lobe of right lung (HCC) MAGNESIUM BLOOD Routine 07/20/2024 1:55 AM CDT Malignant neoplasm of upper lobe of right lung (HCC) XR CHEST 1VW PORTABLE Routine 07/19/2024 5:01 AM CDT Lung nodule CBC W AUTO DIFFERENTIAL Routine 07/19/2024 1:49 AM CDT Malignant neoplasm of upper lobe of right lung (HCC) BASIC METABOLIC PANEL (CALCIUM TOTAL) Routine 07/19/2024 1:49 AM CDT Malignant neoplasm of upper lobe of right lung (HCC) PHOSPHORUS BLOOD Routine 07/19/2024 1:49 AM CDT [...] of upper lobe of right lung (HCC) TYPE + SCREEN PANEL SAL 07/17/2024 1 0:41 AM CDT CBC W/O DIFFERENTIAL STAT 07/17/2024 10:41 AM CDT Pre-op testing BASIC METABOLIC PANEL (CALCIUM TOTAL) STAT 07/17/2024 10:41 AM CDT Pre-op testing PHOSPHORUS BLOOD STAT 07/17/2024 10:4 1 AM CDT Pre-op testing MAGNESIUM BLOOD STAT 07/17/2024 10:41 AM CDT Pre-op testing documented in this encounter Results * XR Chest 1Vw Portable (07/21/2024 5:00 AM CDT) Anatomical Region Laterality Modality Chest Digital Radiogra phy 07/22/2024 2:53 PM HEALTH INFORMATION DIRECTOR Impressions 07/22/2024 2:54 PM HEALTH INFORMATION DIRECTOR IMPRESSION: Unchanged right internal jugular central venous [...] 07/22/2024 2:54 PM Narrative 07/22/2024 2:54 PM HEALTH INFORMATION DIRECTOR PROCEDURE: ??XR CHEST 1VW PORTABLE DATE/TIME OF [...] MD DIAGNOSTIC IM AGING ORDERABLES * (ABNORMAL) PHOSPHORUS BLOOD (07/21/2024 2:02 AM CDT) Phosphorus 6.7(H) 2.8 - 5.1 mg/dL 07/21/2024 2:49 AM CDT [facility] Blood BLOOD SPECIMEN / Unknown Lab Venipuncture / Unknown 07/21/2024 2:02 AM CDT 07/21/2024 2:23 AM CDT Augustine Jimenez MD LAB - CONCRETE TILE MACHINE OPERATOR RY ORDERABLES [address] [address], [place] [phone] * MAGNESIUM BLOOD (07/21/2024 2:02 AM CDT) Magnesium 2.5 1.6 - 2.6 mg/dL 07/21/2024 2:49 AM CDT [facility] Blood BLOOD SPECIMEN / Unknown Lab Venipuncture / Unknown 07/21/2024 2:02 AM CDT 07/21/2024 2:23 AM CDT Augustine Jimenez MD LAB - CONCRETE TILE MACHINE OPERATOR RY ORDERABLES [address] [phone] [phone] * (ABNORMAL) CBC W/O DIFFERENTIAL (07/21/2024 2:02 AM CDT) Pathologist [facility] WBC 8.1 4.0 - 10.7 x10E9/L 07/21/2024 2:29 AM [facility] RBC Count 3.21(L) 4.30 - 5.80 x10E12/L 07/21/2024 2:29 AM [facility] Hemoglobin 10.4(L) 13.3 - 17.5 g/dL 07/21/2024 2:29 AM [facility] Hematocrit 32.3(L) 38.7 - 51.1 % 07/21/2024 2:29 AM [facility] MCV 100.6(H) 80.0 - 98.0 fL 07/21/2024 2:29 AM [facility] MCH 32.4 26.7 - 33.6 pg 07/21/2024 2:29 AM [facility] MCHC 32.2 31.7 - 36.3 g/dL 07/21/2024 2:29 AM [facility] RDW-CV 13.8 11.3 - 14.8 % 07/21/2024 2:29 AM [facility] Platelet Count 184 150 - 420 x10E9/L 07/21/2024 2:29 AM [facility] MPV 9.6 7.8 - 11.4 fL 07/21/2024 2:29 AM [facility] Blood BLOOD SPECIMEN / Unknown Lab Venipuncture / Unknown 07/21/2024 2:02 AM CDT 07/21/2024 2:25 AM CDT Augustine Jimenez MD LAB - HEMATOL OGY ORDERABLES [facility] [address] [address], [place] [phone] * (ABNORMAL) BASIC METABOLIC PANEL (CALCIUM TOTAL) (07/21/2024 2:02 AM CDT) Pathologist [facility] BUN 58(H) 7 - 26 mg/dL 07/21/2024 2:49 AM [facility] Creatinine 10.50(H) 0.71 - 1.16 mg/dL 07/21/2024 2:49 AM [facility] Sodium 139 136 - 145 mmol/L 07/21/2024 2:49 AM [facility] Potassium 4.3 3.5 - 4.5 mmol/L 07/21/2024 2:49 AM [facility] Chloride 101 98 - 107 mmol/L 07/21/2024 2:49 AM [facility] CO2 24 22 - 29 mmol/L 07/21/2024 2:49 AM [facility] Glucose 163(H) 70 - 99 mg/dL 07/21/2024 2:49 AM [facility] Calcium 8.6 8.4 - 10.2 mg/dL 07/21/2024 2:49 AM [facility] Anion Gap 14 6 - 16 07/21/2024 2:49 AM [facility] BUN/Creatinine Ratio 6(L) 7 - 23 07/21/2024 2:49 AM [facility] Osmolality Calculated 308(H) 275 - 295 mOsm/kg 07/21/2024 2:49 AM [facility] eGFR by CKD-EPI 5(L) >=90 mL/min/1.7 3 m2 07/21/2024 2:49 AM [facility] Blood BLOOD SPECIMEN / Unknown Lab Venipuncture / Unknown 07/21/2024 2:02 AM CDT 07/21/2024 2:23 AM T Augustine Jimenez MD LAB - CONCRETE TILE MACHINE OPERATOR RY ORDERABLES [facility] [address] [place] [address], [place] [phone] * (ABNORMAL) CBC W AUTO DIFFERENTIAL (07/21/2024 2:02 AM CDT) WBC 8.1 4.0 - 10.7 x10E9/L 07/21/2024 2:29 AM [facility] RBC Count 3.21(L) 4.30 - 5.80 x10E12/L 07/21/2024 2:29 AM [facility] Hemoglobin 10.4(L) 13.3 - 17.5 g/dL 07/21/2024 2:29 AM [facility] Hematocrit 32.3(L) 38.7 - 51.1 % 07/21/2024 2:29 AM [facility] MCV 100.6(H) 80.0 - 98.0 fL 07/21/2024 2:29 AM [facility] MCH 32.4 26.7 - 33.6 pg 07/21/2024 2:29 AM [facility] MCHC 32.2 31.7 - 36.3 g/dL 07/21/2024 2:29 AM [facility] RDW-CV 13.8 11.3 - 14.8 % 07/21/2024 2:29 AM [facility] Platelet Count 184 150 - 420 x10E9/L 07/21/2024 2:29 AM [facility] MPV 9.6 7.8 - 11.4 fL 07/21/2024 2:29 AM [facility] Neutrophil % 69.8 41.0 - 74.0 % 07/21/2024 2:29 AM [facility] Lymphocyte % 14.2(L) 17.0 - 47.0 % 07/21/2024 2:29 AM [facility] Monocyte % 7.9 3.0 - 11.0 % 07/21/2024 2:29 AM [facility] Eosinophil % 7.4(H) 0.0 - 7.0 % 07/21/2024 2:29 AM [facility] Basophil % 0.5 0.0 - 1.6 % 07/21/2024 2:29 AM [facility] Immature Granulocytes % 0.2 0.0 - 1.0 % 07/21/2024 2:29 AM [facility] Neutrophil Absolute 5.67 1.60 - 7.50 x10E9/L 07/21/2024 2:29 AM [facility] Lymphocyte Absolute 1.15 1.00 - 4.40 x10E9/L 07/21/2024 2:29 AM CDT [facility] Monocyte Absolute 0.64 0.15 - 1.00 x10E9/L 07/21/2024 2:29 AM CDT [facility] Eosinophil Absolute 0.60 0.00 - 0.60 x10E9/L 07/21/2024 2:29 AM CDT [facility] Basophil Absolute 0.04 0.00 - 0.13 x10E9/L 07/21/2024 2:29 AM CDT [facility] Blood BLOOD SPECIMEN / Unknown Lab Venipuncture / Unknown 07/21/2024 2:02 AM CDT 07/21/2024 2:25 AM CDT Augustine Jimenez MD LAB - HEMATOL OGY ORDERABLES [facility] [address] [place] [address], [place] [phone] * XR Chest 2Vw (07/20/2024 9:49 AM [...] Jimenez MD DIAGNOSTIC IM AGING ORDERABLES * XR Chest 1Vw Portable (07/20/2024 5:20 AM CDT) Anatomical Region Laterality Modality Chest Digital Radiogra phy 07/20/2024 10:5 7 AM CDT Narrative 07/20/2024 11:14 AM CDT PROCEDURE: ??XR CHEST 1VW PORTABLE, DATE/TIME OF EXAM: ??07/20/2024 5:40 AM, LOCATION ??[facility] INDICATION: R91.1: Lung nodule ADDITIONAL CLINICAL INFORMATION: Ordering Provider Reason For Exam: ??s/p left chest tube removal Technologist Note: Additional: Comparison: Chest x-ray 07/19/2024 Findings/Impression: Unchanged right IJ dialysis catheter. Interval removal of left thoracostomy tube. Unchanged hazy opacities in the left upper lung, which may represent evolving postoperative changes status post left upper lobe wedge resection. Small bilateral pleural effusions with adjacent atelectasis, unchanged. Mild interstitial opacities, unchanged. No pneumothorax. The cardiomediastinal silhouette is stable. Soft tissue emphysema at the left lateral chest wall. Report dictated by Kristel Muller MD (vice president of finance). ITeddy MD have personally reviewed and interpreted this examination/study. > Interpreting Provider: Teddy Johnston MD on 07/20/2024 11:14 AM Procedure Note Teddy Johnston MD - 07/20/2024 PROCEDURE: XR CHEST 1VW PORTABLE, DATE/TIME OF EXAM: 07/20/2024 5:40AM, LOCATION [facility] INDICATION: R91.1: Lung nodule ADDITIONAL CLINICAL INFORMATION: Ordering Provider Reason For Exam: s/p left chest tube removal Technologist Note: Additional: Comparison: Chest x-ray 07/19/2024 Findings/Impression: Unchanged right IJ dialysis catheter. Interval removal of left thoracostomy tube. Unchanged hazy opacities in the left upper lung, which may represent evolving postoperative changes status post left upper lobe wedgeresection. Small bilateral pleural effusions with adjacent atelectasis, unchanged. Mild interstitial opacities, unchanged. No pneumothorax. The cardiomediastinal silhouette is stable. Soft tissue emphysema at theleft lateral chest wall. Report dictated by Kristel Muller MD (vice president of finance). I, Teddy Johnston MD have personally reviewed and interpreted this examination/study. > Interpreting Provider: Teddy Johnston MD on 07/20/2024 11:14 AM Connie Echols MECHANICAL DESIGN ENGINEER-BRIDGE OPENER DIAGNOSTIC KIMIN G ORDERABLES * (ABNORMAL) PHOSPHORUS BLOOD (07/20/2024 1:55 AM CDT) Phosphorus 5.6(H) 2.8 - 5.1 mg/dL 07/20/2024 3:15 AM CDT [facility] Blood BLOOD SPECIMEN / Unknown Lab Venipuncture / Unknown 07/20/2024 1:55 AM CDT 07/20/2024 2:43 AM CDT Augustine Jimenez MD LAB - CONCRETE TILE MACHINE OPERATOR RY ORDERABLES [address] [address], [place] [phone] * MAGNESIUM BLOOD (07/20/2024 1:55 AM CDT) Magnesium 2.2 1.6 - 2.6 mg/dL 07/20/2024 3:15 AM [facility] Blood BLOOD SPECIMEN / Unknown Lab Venipuncture / Unknown 07/20/2024 1:55 AM CDT 07/20/2024 2:43 AM CDT Augustine Jimenez MD LAB - CONCRETE TILE MACHINE OPERATOR RY ORDERABLES [facility] [address] [place] [address], [place] [phone] * (ABNORMAL) BASIC METABOLIC PANEL (CALCIUM TOTAL) (07/20/2024 1:55 AM CDT) BUN 51(H) 7 - 26 mg/dL 07/20/2024 3:15 AM [facility] Creatinine 9.06(H) 0.71 - 1.16 mg/dL 07/20/2024 3:15 AM [facility] Sodium 139 136 - 145 mmol/L 07/20/2024 3:15 AM [facility] Potassium 4.0 3.5 - 4.5 mmol/L 07/20/2024 3:15 AM [facility] Chloride 101 98 - 107 mmol/L 07/20/2024 3:15 AM [facility] CO2 23 22 - 29 mmol/L 07/20/2024 3:15 AM [facility] Glucose 116(H) 70 - 99 mg/dL 07/20/2024 3:15 AM [facility] Calcium 9.2 8.4 - 10.2 mg/dL 07/20/2024 3:15 AM [facility] Anion Gap 15 6 - 16 07/20/2024 3:15 AM [facility] BUN/Creatinine Ratio 6(L) 7 - 23 07/20/2024 3:15 AM [facility] Osmolality Calculated 303(H) 275 - 295 mOsm/kg 07/20/2024 3:15 AM [facility] eGFR by CKD-EPI 6(L) >=90 mL/min/1.7 3 m2 07/20/2024 3:15 AM [facility] Blood BLOOD SPECIMEN / Unknown Lab Venipuncture / Unknown 07/20/2024 1:55 AM CDT 07/20/2024 2:43 AM CDT Augustine Jimenez MD LAB - CONCRETE TILE MACHINE OPERATOR RY ORDERABLES [facility] [address] [place] [address], [place] [phone] * (ABNORMAL) CBC W AUTO DIFFERENTIAL (07/20/2024 1:55 AM CDT) WBC 7.9 4.0 - 10.7 x10E9/L 07/20/2024 2:55 AM T [facility] RBC Count 3.33(L) 4.30 - 5.80 x10E12/L 07/20/2024 2:55 AM [facility] Hemoglobin 10.8(L) 13.3 - 17.5 g/dL 07/20/2024 2:55 AM [facility] Hematocrit 33.2(L) 38.7 - 51.1 % 07/20/2024 2:55 AM [facility] MCV 99.7(H) 80.0 - 98.0 fL 07/20/2024 2:55 AM [facility] MCH 32.4 26.7 - 33.6 pg 07/20/2024 2:55 AM [facility] MCHC 32.5 31.7 - 36.3 g/dL 07/20/2024 2:55 AM [facility] RDW-CV 14.1 11.3 - 14.8 % 07/20/2024 2:55 AM [facility] Platelet Count 180 150 - 420 x10E9/L 07/20/2024 2:55 AM [facility] MPV 9.7 7.8 - 11.4 fL 07/20/2024 2:55 AM [facility] Neutrophil % 68.3 41.0 - 74.0 % 07/20/2024 2:55 AM [facility] Lymphocyte % 18.3 17.0 - 47.0 % 07/20/2024 2:55 AM CDT [facility] Monocyte % 8.3 3.0 - 11.0 % 07/20/2024 2:55 AM T [facility] Eosinophil % 4.2 0.0 - 7.0 % 07/20/2024 2:55 AM T [facility] Basophil % 0.5 0.0 - 1.6 % 07/20/2024 2:55 AM T [facility] Immature Granulocytes % 0.4 0.0 - 1.0 % 07/20/2024 2:55 AM T [facility] Neutrophil Absolute 5.36 1.60 - 7.50 x10E9/L 07/20/2024 2:55 AM [facility] Lymphocyte Absolute 1.44 1.00 - 4.40 x10E9/L 07/20/2024 2:55 AM [facility] Monocyte Absolute 0.65 0.15 - 1.00 x10E9/L 07/20/2024 2:55 AM [facility] Eosinophil Absolute 0.33 0.00 - 0.60 x10E9/L 07/20/2024 2:55 AM T [facility] Basophil Absolute 0.04 0.00 - 0.13 x10E9/L 07/20/2024 2:55 AM [facility] Blood BLOOD SPECIMEN / Unknown Lab Venipuncture / Unknown 07/20/2024 1:55 AM CDT 07/20/2024 2:46 AM CDT Augustine Jimenez MD LAB - HEMATOL OGY ORDERABLES [facility] [address] [place] [address], [place] [phone] * XR Chest 1Vw Portable (07/19/2024 5:01 AM CDT) Anatomical Region Laterality Modality Chest Digital Radiogra phy 07/19/2024 11:2 3 AM CDT Narrative 07/19/2024 11:52 AM CDT PROCEDURE: ??XR CHEST 1VW PORTABLE, DATE/TIME OF EXAM: ??07/19/2024 5:01 AM, LOCATION ??[facility] INDICATION: R91.1: Lung nodule ADDITIONAL CLINICAL INFORMATION: Ordering Provider Reason For Exam: ??s/p MANISHA wedge resection Technologist Note: Additional: Comparison: Chest x-ray 07/18/2024 Findings/Impression: Unchanged right IJ dialysis catheter. Status post left upper lobe wedge resection with left thoracostomy tube in place. Increasing hazy opacities in the left upper lung, which may represent evolving postoperative changes. Small bilateral pleural effusions with adjacent atelectasis, unchanged. Mild interstitial opacities, unchanged. No pneumothorax. The cardiomediastinal silhouette is stable. Soft tissue emphysema at the left lateral chest wall. Report dictated by Kristel Muller MD (vice president of finance). Teddy Posey MD have personally reviewed and interpreted this examination/study. > Interpreting Provider: Teddy Johnston MD on 07/19/2024 11:52 AM Procedure Note Teddy Johnston MD - 07/19/2024 PROCEDURE: XR CHEST 1VW PORTABLE, DATE/TIME OF EXAM: 07/19/2024 5:01AM, LOCATION [facility] INDICATION: R91.1: Lung nodule ADDITIONAL CLINICAL INFORMATION: Ordering Provider Reason For Exam: s/p MANISHA wedge resection Technologist Note: Additional: Comparison: Chest x-ray 07/18/2024 Findings/Impression: Unchanged right IJ dialysis catheter. Status post left upper lobe wedge resection with left thoracostomy tube in place. Increasing hazy opacities in the left upper lung, which may represent evolving postoperative changes. Small bilateral pleural effusions with adjacent atelectasis, unchanged. Mild interstitial opacities, unchanged.No pneumothorax. The cardiomediastinal silhouette is stable. Soft tissue emphysema at the left lateral chest wall. Report dictated by Kristel Muller MD (vice president of finance). Teddy Posey MD have personally reviewed and interpreted this examination/study. > Interpreting Provider: Teddy Johnston MD on 07/19/2024 11:52 AM Connie Echols MECHANICAL DESIGN ENGINEER-BRIDGE OPENER DIAGNOSTIC IMAGIN G ORDERABLES * PHOSPHORUS BLOOD (07/19/2024 1:49 AM CDT) Pathologist [facility] Phosphorus 4.9 2.8 - 5.1 mg/dL 07/19/2024 2:29 AM CDT [facility] Blood BLOOD SPECIMEN / Unknown Lab Venipuncture / Unknown 07/19/2024 1:49 AM CDT 07/19/2024 2:00 AM CDT Augustine Jimenez MD LAB - CONCRETE TILE MACHINE OPERATOR RY ORDERABLES [address] [address], [place] [phone] * MAGNESIUM BLOOD (07/19/2024 1:49 AM CDT) [facility] Magnesium 2.1 1.6 - 2.6 mg/dL 07/19/2024 2:29 AM CDT [facility] Blood BLOOD SPECIMEN / Unknown Lab Venipuncture / Unknown 07/19/2024 1:49 AM CDT 07/19/2024 2:00 AM CDT Augustine Jimenez MD LAB - CONCRETE TILE MACHINE OPERATOR RY ORDERABLES Performing Organization Address City/[facility]/ZIP Co de Phone Number [address] [address], [place] [phone] * (ABNORMAL) BASIC METABOLIC PANEL (CALCIUM TOTAL) (07/19/2024 1:49 AM CDT) [facility] BUN 34(H) 7 - 26 mg/dL 07/19/2024 2:30 AM CDT [facility] Creatinine 7.59(H) 0.71 - 1.16 mg/dL 07/19/2024 2:30 AM CDT [facility] Sodium 138 136 - 145 mmol/L 07/19/2024 2:30 AM CDT [facility] Potassium 3.8 3.5 - 4.5 mmol/L 07/19/2024 2:30 AM CDT [facility] Chloride 101 98 - 107 mmol/L 07/19/2024 2:30 AM [facility] CO2 26 22 - 29 mmol/L 07/19/2024 2:30 AM [facility] Glucose 104(H) 70 - 99 mg/dL 07/19/2024 2:30 AM [facility] Calcium 8.4 8.4 - 10.2 mg/dL 07/19/2024 2:30 AM [facility] Anion Gap 11 6 - 16 07/19/2024 2:30 AM [facility] BUN/Creatinine Ratio 4(L) 7 - 23 07/19/2024 2:30 AM [facility] Osmolality Calculated 294 275 - 295 mOsm/kg 07/19/2024 2:30 AM [facility] eGFR by CKD-EPI 7(L) >=90 mL/min/1.7 3 m2 07/19/2024 2:30 AM [facility] Blood BLOOD SPECIMEN / Unknown Lab Venipuncture / Unknown 07/19/2024 1:49 AM CDT 07/19/2024 2:00 AM T Augustine Jimenez MD LAB - CONCRETE TILE MACHINE OPERATOR RY ORDERABLES [facility] [address] [place] [address], [place] [phone] * (ABNORMAL) CBC W AUTO DIFFERENTIAL (07/19/2024 1:49 AM CDT) WBC 8.9 4.0 - 10.7 x10E9/L 07/19/2024 2:08 AM [facility] RBC Count 3.31(L) 4.30 - 5.80 x10E12/L 07/19/2024 2:08 AM [facility] Hemoglobin 10.7(L) 13.3 - 17.5 g/dL 07/19/2024 2:08 AM [facility] Hematocrit 32.2(L) 38.7 - 51.1 % 07/19/2024 2:08 AM [facility] MCV 97.3 80.0 - 98.0 fL 07/19/2024 2:08 AM [facility] MCH 32.3 26.7 - 33.6 pg 07/19/2024 2:08 AM [facility] MCHC 33.2 31.7 - 36.3 g/dL 07/19/2024 2:08 AM [facility] RDW-CV 14.1 11.3 - 14.8 % 07/19/2024 2:08 AM [facility] Platelet Count 189 150 - 420 x10E9/L 07/19/2024 2:08 AM [facility] MPV 9.5 7.8 - 11.4 fL 07/19/2024 2:08 AM [facility] Neutrophil % 70.8 41.0 - 74.0 % 07/19/2024 2:08 AM [facility] Lymphocyte % 17.2 17.0 - 47.0 % 07/19/2024 2:08 AM [facility] Monocyte % 8.2 3.0 - 11.0 % 07/19/2024 2:08 AM [facility] Eosinophil % 2.8 0.0 - 7.0 % 07/19/2024 2:08 AM [facility] Basophil % 0.7 0.0 - 1.6 % 07/19/2024 2:08 AM [facility] Immature Granulocytes % 0.3 0.0 - 1.0 % 07/19/2024 2:08 AM [facility] Neutrophil Absolute 6.27 1.60 - 7.50 x10E9/L 07/19/2024 2:08 AM [facility] Lymphocyte Absolute 1.53 1.00 - 4.40 x10E9/L 07/19/2024 2:08 AM [facility] Monocyte Absolute 0.73 0.15 - 1.00 x10E9/L 07/19/2024 2:08 AM [facility] Eosinophil Absolute 0.25 0.00 - 0.60 x10E9/L 07/19/2024 2:08 AM [facility] Basophil Absolute 0.06 0.00 - 0.13 x10E9/L 07/19/2024 2:08 AM [facility] Blood BLOOD SPECIMEN / Unknown Lab Venipuncture / Unknown 07/19/2024 1:49 AM CDT 07/19/2024 2:00 AM CDT Augustine Jimenez MD LAB - HEMATOL OGY ORDERABLES Performing Organization Address City/[facility]/ZIP Co de Phone Number [address] [address], [place] [phone] * HEPATITIS B SURFACE ANTIBODY QUANT (07/18/2024 9:23 AM CDT) Hepatitis B Virus Surface Antibody 3.95 IU/L 07/20/2024 12:43 PM CDT [employer] ([facility]) Comment: The anti-HBs is less than 10 [...] Cellular and Tissue-Based Products (HCT/P). Performed By: [employer] [address] [place] [address] [employer] M[employer] Machine Tender: Mahendra Duron MD, PhD CLIA Number: [id number] Blood BLOOD SPECIMEN / Unknown Lab Venipuncture / Unknown 07/18/2024 9:23 AM CDT 07/18/2024 9:49 AM CDT Bebo Mac MD LAB - SEROLOGY ORDER ELSIE MASpindle ([facility]) [address] * HEPATITIS B SURFACE ANTIGEN W RFLX CONFIRMATION (07/18/2024 9:23 AM CDT) Hepatitis B Virus Surface Antigen Non-reacti ve Non-reacti ve 07/18/2024 10:40 AM CDT [facility] Blood BLOOD SPECIMEN / Unknown Lab Venipuncture / Unknown 07/18/2024 9:23 AM CDT 07/18/2024 9:49 AM CDT Bebo Mac MD LAB - CHEMISTRY NELDA TIPTON [facility] [address] [place] [address], [place] [phone] * XR CHEST 1VW PORTABLE (07/18/2024 7:27 AM CDT) Anatomical Region Laterality Modality Chest Digital Radiogra phy 07/18/2024 10:3 3 AM CDT Narrative 07/18/2024 2:12 PM CDT PROCEDURE: ??XR CHEST 1VW PORTABLE, DATE/TIME OF EXAM: ??07/18/2024 7:27 AM, LOCATION ??[facility] INDICATION: C34.11: Malignant neoplasm of upper lobe of right lung (HCC) ADDITIONAL CLINICAL INFORMATION: Ordering Provider Reason For Exam: ??s/p MANISHA wedge resection Technologist Note: Additional: COMPARISON: Chest x-ray from 07/18/2024. FINDINGS/IMPRESSION: Redemonstrated right IJ approach tunneled dialysis catheter with tip terminating in right atrium. Left chest tube present. Subsegmental atelectasis in the right midlung. Increasing patchy opacity in the right lower lung may be due to atelectasis/airspace disease. Low lung volumes. Postsurgical changes of left upper lobe resection. There is no pneumothorax. A small pleural effusions are possible. The cardiomediastinal silhouette is stable. > Dictated by Daquan Curtis MD (vice president of finance). I, Teddy Johnston MD have personally reviewed and interpreted this examination/study. > Interpreting Provider: Teddy Johnston MD on 07/18/2024 2:12 PM Procedure Note Teddy Johnston MD - 07/18/2024 PROCEDURE: XR CHEST 1VW PORTABLE, DATE/TIME OF EXAM: 07/18/2024 7:27AM, LOCATION [facility] INDICATION: C34.11: Malignant neoplasm of upper lobe of right lung (HCC) ADDITIONAL CLINICAL INFORMATION: Ordering Provider Reason For Exam: s/p MANISHA wedge resection Technologist Note: Additional: COMPARISON: Chest x-ray from 07/18/2024. FINDINGS/IMPRESSION: Redemonstrated right IJ approach tunneled dialysis catheter with tip terminating in right atrium. Left chest tube present. Subsegmental atelectasis in the right midlung. Increasing patchy opacityin the right lower lung may be due to atelectasis/airspace disease. Lowlung volumes. Postsurgical changes of left upper lobe resection. There is no pneumothorax. A small pleural effusions are possible. Thecardiomediastinal silhouette is stable. > Dictated by Daquan Curtis MD (vice president of finance). ITeddy MD have personally reviewed and interpreted this examination/study. > Interpreting Provider: Teddy Johnston MD on 07/18/2024 2:12 PM Augustine Jimenez MD DIAGNOSTIC IM AGING ORDERABLES * XR Chest 1Vw Portable (07/18/2024 4:42 AM CDT) Anatomical Region Laterality Modality Chest Digital Radiogra phy 07/18/2024 2:10 PM CDT Impressions 07/18/2024 2:11 PM CDT IMPRESSION: *Similar right IJ central venous catheter and left thoracostomy tube. Increasing low lung volumes with worsening bronchovascular crowding. Mild bibasilar opacities, likely atelectasis. Similar right midlung subsegmental atelectasis. No large effusion or pneumothorax. Stable cardiomediastinal silhouette. Soft tissue gas along the left chest wall. > Interpreting Provider: Teddy Johnston MD on 07/18/2024 2:11 PM Narrative 07/18/2024 2:11 PM CDT PROCEDURE: ??XR CHEST 1VW PORTABLE DATE/TIME OF EXAM: ??07/18/2024 4:43 AM CLINICAL INFORMATION: None relevant/not provided if blank. Indication: C34.11: Malignant neoplasm of upper lobe of right lung (HCC) Additional History: COMPARISON: 07/17/2024 at 4:47 PM Procedure Note Teddy Johnston MD - 07/18/2024 PROCEDURE: XR CHEST 1VW PORTABLE DATE/TIME OF EXAM: 07/18/2024 4:43 AM CLINICAL INFORMATION: None relevant/not provided if blank. Indication: C34.11: Malignant neoplasm of upper lobe of right lung (HCC) Additional History: COMPARISON: 07/17/2024 at 4:47 PM IMPRESSION: *Similar right IJ central venous catheter and left thoracostomy tube. Increasing low lung volumes with worsening bronchovascular crowding.Mild bibasilar opacities, likely atelectasis. Similar right midlungsubsegmental atelectasis. No large effusion or pneumothorax. Stable cardiomediastinal silhouette. Soft tissue gas along the left chest wall. > Interpreting Provider: Teddy Johnston MD on 07/18/2024 2:11 PM Augustine Jimenez MD DIAGNOSTIC IM AGING ORDERABLES * PHOSPHORUS BLOOD (07/18/2024 1:45 AM CDT) Phosphorus 4.7 2.8 - 5.1 mg/dL 07/18/2024 2:28 AM CDT [facility] Blood BLOOD SPECIMEN / Unknown Lab Venipuncture / Unknown 07/18/2024 1:45 AM CDT 07/18/2024 2:02 AM CDT Augustine Jimenez MD LAB - CONCRETE TILE MACHINE OPERATOR RY ORDERABLES [address] [address], [place] [phone] * MAGNESIUM BLOOD (07/18/2024 1:45 AM CDT) Magnesium 2.3 1.6 - 2.6 mg/dL 07/18/2024 2:28 AM CDT [facility] Blood BLOOD SPECIMEN / Unknown Lab Venipuncture / Unknown 07/18/2024 1:45 AM CDT 07/18/2024 2:02 AM T Augustine Jimenez MD LAB - CONCRETE TILE MACHINE OPERATOR RY ORDERABLES [facility] [address] [place] [address], [place] [phone] * (ABNORMAL) BASIC METABOLIC PANEL (CALCIUM TOTAL) (07/18/2024 1:45 AM CDT) BUN 82(H) 7 - 26 mg/dL 07/18/2024 2:28 AM [facility] Creatinine 12.10(H) 0.71 - 1.16 mg/dL 07/18/2024 2:28 AM [facility] Sodium 138 136 - 145 mmol/L 07/18/2024 2:28 AM [facility] Potassium 5.4(H) 3.5 - 4.5 mmol/L 07/18/2024 2:28 AM [facility] Chloride 112(H) 98 - 107 mmol/L 07/18/2024 2:28 AM [facility] CO2 13(L) 22 - 29 mmol/L 07/18/2024 2:28 AM [facility] Glucose 183(H) 70 - 99 mg/dL 07/18/2024 2:28 AM [facility] Calcium 8.5 8.4 - 10.2 mg/dL 07/18/2024 2:28 AM [facility] Anion Gap 13 6 - 16 07/18/2024 2:28 AM [facility] BUN/Creatinine Ratio 7 7 - 23 07/18/2024 2:28 AM [facility] Osmolality Calculated 315(H) 275 - 295 mOsm/kg 07/18/2024 2:28 AM [facility] eGFR by CKD-EPI 4(L) >=90 mL/min/1.7 3 m2 07/18/2024 2:28 AM [facility] Blood BLOOD SPECIMEN / Unknown Lab Venipuncture / Unknown 07/18/2024 1:45 AM CDT 07/18/2024 2:02 AM CDT Augustine Jimenez MD LAB - CONCRETE TILE MACHINE OPERATOR RY ORDERABLES Performing Organization Address City/State/[facility] Co de Phone Number [facility] [address] [place] [address], [place] [phone] * (ABNORMAL) CBC W AUTO DIFFERENTIAL (07/18/2024 1:45 AM CDT) WBC 11.1(H) 4.0 - 10.7 x10E9/L 07/18/2024 2:11 AM T [facility] RBC Count 3.29(L) 4.30 - 5.80 x10E12/L 07/18/2024 2:11 AM [facility] Hemoglobin 10.5(L) 13.3 - 17.5 g/dL 07/18/2024 2:11 AM [facility] Hematocrit 32.9(L) 38.7 - 51.1 % 07/18/2024 2:11 AM [facility] MCV 100.0(H) 80.0 - 98.0 fL 07/18/2024 2:11 AM [facility] MCH 31.9 26.7 - 33.6 pg 07/18/2024 2:11 AM [facility] MCHC 31.9 31.7 - 36.3 g/dL 07/18/2024 2:11 AM [facility] RDW-CV 13.9 11.3 - 14.8 % 07/18/2024 2:11 AM [facility] Platelet Count 211 150 - 420 x10E9/L 07/18/2024 2:11 AM [facility] MPV 9.5 7.8 - 11.4 fL 07/18/2024 2:11 AM [facility] Neutrophil % 86.2(H) 41.0 - 74.0 % 07/18/2024 2:11 AM [facility] Lymphocyte % 6.3(L) 17.0 - 47.0 % 07/18/2024 2:11 AM [facility] Monocyte % 7.0 3.0 - 11.0 % 07/18/2024 2:11 AM CDT [facility] Eosinophil % 0.0 0.0 - 7.0 % 07/18/2024 2:11 AM [facility] Basophil % 0.1 0.0 - 1.6 % 07/18/2024 2:11 AM [facility] Immature Granulocytes % 0.4 0.0 - 1.0 % 07/18/2024 2:11 AM [facility] Neutrophil Absolute 9.60(H) 1.60 - 7.50 x10E9/L 07/18/2024 2:11 AM [facility] Lymphocyte Absolute 0.70(L) 1.00 - 4.40 x10E9/L 07/18/2024 2:11 AM [facility] Monocyte Absolute 0.78 0.15 - 1.00 x10E9/L 07/18/2024 2:11 AM [facility] Eosinophil Absolute 0.00 0.00 - 0.60 x10E9/L 07/18/2024 2:11 AM [facility] Basophil Absolute 0.01 0.00 - 0.13 x10E9/L 07/18/2024 2:11 AM [facility] Blood BLOOD SPECIMEN / Unknown Lab Venipuncture / Unknown 07/18/2024 1:45 AM CDT 07/18/2024 2:02 AM CDT Augustien Jimenez MD LAB - HEMATOL OGY ORDERABLES Performing Organization Address [facility] Co de Phone Number [address] [address], [place] [phone] * XR Chest 1Vw Portable (07/17/2024 4:53 PM CDT) Anatomical Region Laterality Modality Chest Digital Radiogra phy 07/18/2024 7:57 AM CDT Narrative 07/18/2024 2:10 PM CDT PROCEDURE: ??XR CHEST 1VW PORTABLE, DATE/TIME OF EXAM: ??07/17/2024 4:53 PM, LOCATION ??[facility] INDICATION: R91.1: Lung nodule ADDITIONAL CLINICAL INFORMATION: Ordering Provider Reason For Exam: ??s/p VATS Technologist Note: Additional: COMPARISON: Chest x-ray from 05/18/2024. FINDINGS/IMPRESSION: Findings: Redemonstrated tunnelled central catheter via right IJ access with tip terminating in right atrium. Interval placement of left thoracostomy tube. Right midlung subsegmental atelectasis, left basilar atelectasis. Mild bilateral interstitial edema. There is no pleural effusion or pneumothorax. The cardiomediastinal silhouette is stable. > Dictated by Daquan Curtis MD (vice president of finance). Teddy Posey MD have personally reviewed and interpreted this examination/study. > Interpreting Provider: Teddy Johnston MD on 07/18/2024 2:10 PM Procedure Note Teddy Johnston MD - 07/18/2024 PROCEDURE: XR CHEST 1VW PORTABLE, DATE/TIME OF EXAM: 07/17/2024 4:53PM, LOCATION [facility] INDICATION: R91.1: Lung nodule ADDITIONAL CLINICAL INFORMATION: Ordering Provider Reason For Exam: s/p VATS Technologist Note: Additional: COMPARISON: Chest x-ray from 05/18/2024. FINDINGS/IMPRESSION: Findings: Redemonstrated tunnelled central catheter via right IJ access with tip terminating in right atrium. Interval placement of left thoracostomy tube. Right midlung subsegmental atelectasis, left basilar atelectasis. Mild bilateral interstitial edema. There is no pleural effusion orpneumothorax. The cardiomediastinal silhouette is stable. > Dictated by Daquan Curtis MD (vice president of finance). Teddy Posey MD have personally reviewed and interpreted this examination/study. > Interpreting Provider: Teddy Johnston MD on 07/18/2024 2:10 PM Augustine Jimenez MD DIAGNOSTIC IM AGING ORDERABLES * PATHOLOGY TISSUE (07/17/2024 3:48 PM CDT) Case Report Surgical Pathology Report ? Case: [id number] ? Authorizing Provider: ??Barbara, Augustine K, ??Collected: ? 07/17/2024 03:48 PM ? MD ? Ordering Location: ? [facility] ?Received: ?07/18/2024 04:46 AM ? Pathologist: ? Toker, Rene, MD ? Specimens: ?? A) - Lung Resect Seg, Left upper lobe wedge. ? B) - Margin, True margin. ? C) - Lymph Node, Station 5 lymph node. ? D) - Lymph Node, Station 6 lymph node. ? E) - Lymph Node, Station 3 lymph node. ? F) - Lymph Node, Station 10 lymph node. ? 8:33 PM [facility] Final Diagnosis Lung, left upper [...] negative for carcinoma (0/2) 4 8:33 PM [facility] Preliminary result electronically signed by Rene Chavis MD on 07/21/2024 at 5:00 PM Microscopic Description and Comment Additional immunostains for TTF-1 on blocks A2 and A3 were performed, and both stains are positive in malignant cells. 4 8:33 PM [facility] Clinical History The patient is a 64 year-old male with adenocarcinoma of the left upper lobe. 4 8:33 PM [facility] Intraoperative Consultation A) Left upper lobe wedge -piece of lung tissue 10 x 8 x 4 cm, stapled along edges, area of pleural puckering 2.5 x 2.0 cm corresponding to subpleural firm white tumor 3.0 x 1.8 x 1.1 cm. Margins grossly clear. Adult Education Teacher section of tumor frozen (FSA1). Intraoperative diagnosis: [...] Dr. Satish Riggs MD 4 8:33 PM [facility] Gross Description The requisition and [...] respectively submitted in cassette A1 and additional community health program representative sections are submitted as follows: A2, [...] as cassette F1. AL 4 8:33 PM [facility] Pathologist Location at [facility] 4 8:33 PM [facility] Disclaimer The performance characteristics of all immunohistochemical and indirect immunofluorescence stains (if any) cited in this report were determined by the Histopathology Laboratory of [facility]. Some of these tests were developed [...] the attending (teaching) pathologist. 4 8:33 PM [facility] Synoptic Report LUNG LUNG - [...] Number of Lymph Nodes Examined: ?7 ? Edmund Site(s) Examined: ?5: Subaortic / aortopulmonary (AP) / AP window ? Edmund Site(s) Examined: ?6: Para-aortic (ascending aorta or phrenic) ? Edmund Site(s) Examined: ?10L: Hilar ? Edmund Site(s) Examined: ?Left: Station 3 and intraparenchymal [...] ?? Additional Findings: ?Emphysema 4 8:33 PM [facility] Embedded Images 8:33 PM [facility] Biopsy, Excision RESECTED LUNG SPECIMEN [...] Jimenez MD LAB - PATHOLO GY/CYTOLOGY ORDERABLES [facility] [address] [place], [place] [id number] [place] [address] * (ABNORMAL) CBC W/O DIFFERENTIAL (07/17/2024 10:41 AM CDT) WBC 9.1 4.0 - 10.7 x10E9/L 07/17/2024 11:03 AM [facility] RBC Count 3.71(L) 4.30 - 5.80 x10E12/L 07/17/2024 11:03 AM [facility] Hemoglobin 12.0(L) 13.3 - 17.5 g/dL 07/17/2024 11:03 AM [facility] Hematocrit 37.3(L) 38.7 - 51.1 % 07/17/2024 11:03 AM [facility] MCV 100.5(H) 80.0 - 98.0 fL 07/17/2024 11:03 AM [facility] MCH 32.3 26.7 - 33.6 pg 07/17/2024 11:03 AM [facility] MCHC 32.2 31.7 - 36.3 g/dL 07/17/2024 11:03 AM [facility] RDW-CV 14.0 11.3 - 14.8 % 07/17/2024 11:03 AM [facility] Platelet Count 240 150 - 420 x10E9/L 07/17/2024 11:03 AM [facility] MPV 9.6 7.8 - 11.4 fL 07/17/2024 11:03 AM [facility] Blood BLOOD SPECIMEN / Unknown Venipuncture / Unknown 07/17/2024 10:41 AM CDT 07/17/2024 10:53 AM CDT Augustine Jimenez MD LAB - HEMATOL OGY ORDERABLES [facility] [address] [place] [address], [place] [phone] * PHOSPHORUS BLOOD (07/17/2024 10:41 AM CDT) Phosphorus 4.7 2.8 - 5.1 mg/dL 07/17/2024 11:21 AM CDT [facility] Blood BLOOD SPECIMEN / Unknown Venipuncture / Unknown 07/17/2024 10:41 AM CDT 07/17/2024 10:53 AM CDT Augustine Jimenez MD LAB - CONCRETE TILE MACHINE OPERATOR RY ORDERABLES Performing Organization Address City/[facility]/ZIP Co de Phone Number [address] [address], [place] [phone] * MAGNESIUM BLOOD (07/17/2024 10:41 AM CDT) Magnesium 2.4 1.6 - 2.6 mg/dL 07/17/2024 11:21 AM CDT [facility] Blood BLOOD SPECIMEN / Unknown Venipuncture / Unknown 07/17/2024 10:41 AM CDT 07/17/2024 10:53 AM CDT Augustine Jimenez MD LAB - CONCRETE TILE MACHINE OPERATOR RY ORDERABLES [address] [address], [place] [phone] * (ABNORMAL) BASIC METABOLIC PANEL (CALCIUM TOTAL) (07/17/2024 10:41 AM CDT) BUN 73(H) 7 - 26 mg/dL 07/17/2024 11:21 AM CDT [facility] Creatinine 11.41(H) 0.71 - 1.16 mg/dL 07/17/2024 11:21 AM T [facility] Sodium 140 136 - 145 mmol/L 07/17/2024 11:21 AM T [facility] Potassium 5.0(H) 3.5 - 4.5 mmol/L 07/17/2024 11:21 AM CDT [facility] Chloride 114(H) 98 - 107 mmol/L 07/17/2024 11:21 AM T [facility] CO2 14(L) 22 - 29 mmol/L 07/17/2024 11:21 AM CDT [facility] Glucose 90 70 - 99 mg/dL 07/17/2024 11:21 AM [facility] Calcium 9.0 8.4 - 10.2 mg/dL 07/17/2024 11:21 AM [facility] Anion Gap 12 6 - 16 07/17/2024 11:21 AM [facility] BUN/Creatinine Ratio 6(L) 7 - 23 07/17/2024 11:21 AM [facility] Osmolality Calculated 311(H) 275 - 295 mOsm/kg 07/17/2024 11:21 AM [facility] eGFR by CKD-EPI 4(L) >=90 mL/min/1.7 3 m2 07/17/2024 11:21 AM [facility] Blood BLOOD SPECIMEN / Unknown Venipuncture / Unknown 07/17/2024 10:41 AM CDT 07/17/2024 10:53 AM CDT Augustine Jimenez MD LAB - CONCRETE TILE MACHINE OPERATOR RY ORDERABLES Performing Organization Address City/[facility]/ZIP Co de Phone Number [facility] [address] [place] [address], [place] [phone] * TYPE + SCREEN PANEL (07/17/2024 10:41 AM CDT) Antibody Screen NEG 11:28 AM CDT [facility] ABO Rh O POS 07/17/2024 11:28 AM CDT [facility] Blood Bank BLOOD SPECIMEN / Unknown Venipuncture / Unknown 07/17/2024 10:41 AM CDT 07/17/2024 10:46 AM CDT Augustine Jimenez MD LAB - BLOOD B ANK ORDERABLES Performing Organization Address City/[facility]/ZIP Co de Phone Number [facility] [address] [place] [address], [place] [phone] documented in this encounter Visit Diagnoses Diagnosis Lung nodule- Primary Solitary pulmonary nodule Basal cell carcinoma (BCC) of left nasal sidewall Pre-op testing Preoperative examination, unspecified Malignant neoplasm of upper lobe of right lung (HCC) Malignant neoplasm of upper lobe, bronchus or lung Malignant neoplasm of upper lobe of right lung (HCC) Malignant neoplasm of upper lobe, bronchus or lung Basal cell carcinoma (BCC), unspecified site documented in this encounter Admitting Diagnoses Diagnosis Malignant neoplasm of upper lobe of right lung (HCC) Malignant neoplasm of upper lobe, bronchus or lung documented in this encounter Administered Medications Inactive Administered Medications - up to 3 most recent administrations Medication Order MAR Action Action Date Dose Rate Site acetaminophen (Tylenol) tablet 1,000 mg 1,000 mg, Oral, EVERY 6 HOURS, First dose on Tue07/17/24 at 1830, Until Discontinued, Patient preference for lesser PRN pain meds may be honored when the patient requests a less strong medication, a lower dose, or a less intrusive route of administration when the lesser drug, dose and route have been ordered for the patient. This patient request must be documented in the MAR. If both oral and IV options are ordered for the same pain severity, give oral first unless patient cannot tolerate oral intake $ Given 07/21/2024 5:38 AM CDT 1,000 mg $ Given 07/21/2024 1:48 AM CDT 1,000 mg $ Given 07/20/2024 6:29 PM CDT 1,000 mg acetaminophen (Tylenol) tablet 650 mg 650 mg, Oral, EVERY 6 HOURS PRN, Mild Pain, Starting on Tue07/17/24 at 1851, Until 07/21/24 at 1215, Patient preference for lesser PRN pain meds may be honored when the patient requests a less strong medication, a lower dose, or a less intrusive route of administration when the lesser drug, dose and route have been ordered for the patient. This patient request must be documented in the MAR. If both oral and IV options are ordered for the same pain severity, give oral first unless patient cannot tolerate oral intake, Post-op albuterol-ipratropium (Duo-Neb) nebulizer solution 3 mL 3 mL, Inhalation, POST-OP MULTIPLE, Starting on Tue07/20/24 at 1820, Until 07/21/24 at 1215, For wheezing. Notify anesthesia immediately., PACU diphenhydrAMINE (Benadryl) injection 25 mg 25 mg, Intravenous, ONCE PRN, Nausea/Vomiting, 1 dose, Starting on Tue07/20/24 at 1820, Until 07/21/24 at 1215, Third choice, use if first and second choice was ineffective., PACU fentaNYL (PF) (Sublimaze) injection 25 mcg 25 mcg, Intravenous, EVERY 10 MIN PRN, Mild Pain, 4 doses, Starting on Tue07/20/24 at 1820, Until 07/21/24 at 1215, Maximum total of 4 doses. If patient reaches max total dose, please consult anesthesiologist prior to further administration of pain meds. Hold pain meds if there are signs of hypoventilation. Patient preference for lesser PRN pain meds may be honored when the patient requests a less strong medication, a lower dose, or a less intrusive route of administration when the lesser drug, dose and route have been ordered for the patient. This patient request must be documented in the MAR. If both oral and IV options are ordered for the same pain severity, give oral first unless patient cannot tolerate oral intake, PACU fentaNYL (PF) (Sublimaze) injection 50 mcg 50 mcg, Intravenous, EVERY 10 MIN PRN, Moderate Pain, 4 doses, Starting on Tue07/20/24 at 1820, Until 07/21/24 at 1215, Maximum total of 4 doses. If patient reaches max total dose, please consult anesthesiologist prior to further administration of pain meds. Hold pain meds if there are signs of hypoventilation. Patient preference for lesser PRN pain meds may be honored when the patient requests a less strong medication, a lower dose, or a less intrusive route of administration when the lesser drug, dose and route have been ordered for the patient. This patient request must be documented in the MAR. If both oral and IV options are ordered for the same pain severity, give oral first unless patient cannot tolerate oral intake, PACU finasteride (Proscar) tablet 5 mg 5 mg, Oral, DAILY, First dose on Tue07/17/24 at 1715, Until Discontinued, Women who are or planning to become should not handle crushed or broken tablets $ Given 07/21/2024 8:41 AM CDT 5 mg $ Given 07/20/2024 8:52 AM CDT 5 mg $ Given 07/19/2024 8:46 AM CDT 5 mg gabapentin (Neurontin) capsule 100 mg 100 mg, Oral, 3 TIMES DAILY, First dose on Tue07/17/24 at 2100, Until Discontinued $ Given 07/21/2024 8:41 AM CDT 100 mg $ Given 07/20/2024 8:01 PM CDT 100 mg $ Given 07/20/2024 1:38 PM CDT 100 mg guaiFENesin ER 12hr (Mucinex) tablet 600 mg 600 mg, Oral, EVERY 12 HOURS, First dose on Tue07/18/24 at 1000, Until Discontinued, Do not crush, chew, or cut in half. $ Given 07/21/2024 8:41 AM CDT 600 mg $ Given 07/20/2024 8:01 PM CDT 600 mg $ Given 07/20/2024 8:52 AM CDT 600 mg HYDROmorphone (Dilaudid) injection 0.2 mg 0.2 mg, Intravenous, EVERY 4 HOURS PRN, Breakthrough pain or if unable to take PO, Starting on Tue07/20/24 at 1820, Until 07/21/24 at 1215, For use if oral option ineffective or unable to be given. Patient preference for lesser PRN pain meds may be honored when the patient requests a less strong medication, a lower dose, or a less intrusive route of administration when the lesser drug, dose and route have been ordered for the patient. This patient request must be documented in the MAR. If both oral and IV options are ordered for the same pain severity, give oral first unless patient cannot tolerate oral intake, Post-op HYDROmorphone (Dilaudid) injection 0.5 mg 0.5 mg, Intravenous, EVERY 10 MIN PRN, Severe Pain, 4 doses, Starting on Tue07/20/24 at 1820, Until 07/21/24 at 1215, Maximum total of 4 doses If patient reaches max total dose, please consult anesthesiologist prior to further administration of pain meds. Hold pain meds if there are signs of hypoventilation. Patient preference for lesser PRN pain meds may be honored when the patient requests a less strong medication, a lower dose, or a less intrusive route of administration when the lesser drug, dose and route have been ordered for the patient. This patient request must be documented in the MAR. If both oral and IV options are ordered for the same pain severity, give oral first unless patient cannot tolerate oral intake, PACU labetalol (Normodyne; Trandate) injection 5 mg 5 mg, Intravenous, POST-OP MULTIPLE, Starting on Tue07/20/24 at 1820, Until 07/21/24 at 1215, IV given slowly over 1 minute up to 20 mg. Repeat every 10-15 minutes in 5 mg doses. Hold if heart rate is less than 60. Give for hypertension SBP greater than 180, DBP greater than 100., PACU lidocaine 1% (Xylocaine) - EPINEPHrine 1:100,000 injection PRN, Starting on Tue07/20/24 at 1731, Until Tue07/20/24 at 1737, Intra-op $ Given 07/20/2024 5:31 PM CDT 5 mL methocarbamol (Robaxin) tablet 750 mg 750 mg, Oral, EVERY 6 HOURS PRN, Muscle Spasms, Starting on Tue07/17/24 at 1851, Until 07/21/24 at 1215, Post-op naloxone (Narcan) injection 0.04 mg 0.04 mg, Intravenous, POST-OP MULTIPLE, Starting on Tue07/20/24 at 1820, Until 07/21/24 at 1215, Notify physician immediately, and mix 0.4 mg Naloxone in 9 mL Normal Saline for slow IV push. Administer dilute Naloxone solution IV very slowly (1 mL over 30 seconds) while observing the patient response and titrating to effect. If no response, call Rapid Response, continue IV Naloxone at the same rate up to a total of 0.8 mg of diluted Naloxone., PACU ondansetron (disintegrating) (Zofran ODT) tablet 4 mg 4 mg, Oral, EVERY 6 HOURS PRN, Nausea/Vomiting, Starting on Tue07/17/24 at 1635, Until 07/21/24 at 1215, Dissolved orally on tongue $ Given 07/19/2024 5:36 PM CDT 4 mg $ Given 07/19/2024 9:18 AM CDT 4 mg ondansetron (Zofran) injection 4 mg 4 mg, Intravenous, EVERY 6 HOURS PRN, Nausea/Vomiting, Starting on Tue07/17/24 at 1635, Until 07/21/24 at 1215, Administer IV if patient is NPO, actively vomiting, or unable to swallow. ondansetron (Zofran) injection 4 mg 4 mg, Intravenous, ONCE PRN, Nausea/Vomiting, 1 dose, Starting on Tue07/20/24 at 1820, Until 07/21/24 at 1215, First choice, PACU oxyCODONE (immediate release) (Roxicodone) tablet 10 mg 10 mg, Oral, EVERY 4 HOURS PRN, Severe Pain, Starting on Tue07/17/24 at 1635, Until 07/21/24 at 1215, Patient preference for lesser PRN pain meds may be honored when the patient requests a less strong medication, a lower dose, or a less intrusive route of administration when the lesser drug, dose and route have been ordered for the patient. This patient request must be documented in the MAR. If both oral and IV options are ordered for the same pain severity, give oral first unless patient cannot tolerate oral intake $ Given 07/18/2024 8:23 PM CDT 10 mg $ Given 07/18/2024 4:50 AM CDT 10 mg oxyCODONE (immediate release) (Roxicodone) tablet 10 mg 10 mg, Oral, EVERY 4 HOURS PRN, Severe Pain, Starting on Tue07/17/24 at 1851, Until 07/21/24 at 1215, Patient preference for lesser PRN pain meds may be honored when the patient requests a less strong medication, a lower dose, or a less intrusive route of administration when the lesser drug, dose and route have been ordered for the patient. This patient request must be documented in the MAR. If both oral and IV options are ordered for the same pain severity, give oral first unless patient cannot tolerate oral intake, Post-op $ Given 07/19/2024 8:46 AM CDT 10 mg $ Given 07/17/2024 10:42 PM CDT 10 mg oxyCODONE (immediate release) (Roxicodone) tablet 5 mg 5 mg, Oral, EVERY 4 HOURS PRN, Moderate Pain, Starting on Tue07/17/24 at 1635, Until 07/21/24 at 1215, Patient preference for lesser PRN pain meds may be honored when the patient requests a less strong medication, a lower dose, or a less intrusive route of administration when the lesser drug, dose and route have been ordered for the patient. This patient request must be documented in the MAR. If both oral and IV options are ordered for the same pain severity, give oral first unless patient cannot tolerate oral intake $ Given 07/18/2024 1:06 PM CDT 5 mg oxyCODONE (immediate release) (Roxicodone) tablet 5 mg 5 mg, Oral, EVERY 4 HOURS PRN, Moderate Pain, Starting on Tue07/17/24 at 1851, Until 07/21/24 at 1215, Patient preference for lesser PRN pain meds may be honored when the patient requests a less strong medication, a lower dose, or a less intrusive route of administration when the lesser drug, dose and route have been ordered for the patient. This patient request must be documented in the MAR. If both oral and IV options are ordered for the same pain severity, give oral first unless patient cannot tolerate oral intake, Post-op prochlorperazine (Compazine) injection 10 mg 10 mg, Intravenous, ONCE PRN, Nausea/Vomiting, 1 dose, Starting on Tue07/20/24 at 1820, Until 07/21/24 at 1215, Second choice, use if first choice was ineffective., PACU sevelamer carbonate (Renvela) tablet 800 mg 800 mg, Oral, 3 TIMES DAILY WITH MEALS, First dose on Tue07/17/24 at 1800, Until Discontinued $ Given 07/21/2024 8:41 AM CDT 800 mg $ Given 07/20/2024 6:48 PM CDT 800 mg $ Given 07/19/2024 4:34 PM CDT 800 mg tamsulosin (Flomax) capsule 0.4 mg 0.4 mg, Oral, DAILY, First dose on Tue07/17/24 at 1715, Until Discontinued, At the same time every day after a meal. Do not crush or chew. May open capsule and administer contents per tube. J-tube administration is not appropriate as the small lumen would necessitate crushing of granules. $ Given 07/21/2024 8:41 AM CDT 0.4 mg $ Given 07/20/2024 8:52 AM CDT 0.4 mg $ Given 07/19/2024 8:45 AM CDT 0.4 mg throat lozenge 1 lozenge 1 lozenge, Oral, EVERY 1 HOUR PRN, Sore Throat, Starting on Tue07/20/24 at 1820, Until 07/21/24 at 1215, PACU white petroleum (Vaseline) gel Topical, 3 TIMES DAILY, First dose on Tue07/20/24 at 2100, Until Discontinued, Apply to facial incisions documented in this encounter Active and Recently Administered Medications Times are shown in CDT. Scheduled Medication Order 07/19/2024 07/20/2024 07/21/2024 acetaminophen (Tylenol) tablet 1,000 mg 1,000 mg, Oral, EVERY 6 HOURS, First dose on Tue07/17/24 at 1830, Until Discontinued, Patient preference for lesser PRN pain meds may be honored when the patient requests a less strong medication, a lower dose, or a less intrusive route of administration when the lesser drug, dose and route have been ordered for the patient. This patient request must be documented in the MAR. If both oral and IV options are ordered for the same pain severity, give oral first unless patient cannot tolerate oral intake 0107 ($ Given - Provider: Mariposa Caceres)0645 ($ Given - Provider: Santiago Hanks RN)1209 ($ Given - Provider: Santiago Hanks RN)1634 ($ Given - Provider: Santiago Hanks RN) 0110 ($ Given - Provider: Mariposa Caceres)0738 ($ Given - Provider: Mariposa Caceres)1337 ($ Given - Provider: Dianelys Cowart RN)1829 ($ Given - Provider: Matthew Hong RN) 0148 ($ Given - Provider: Anastasiia Dai RN)0538 ($ Given - Provider: Anastasiia Dai RN) albuterol-ipratropium (Duo-Neb) nebulizer solution 3 mL 3 mL, Inhalation, POST-OP MULTIPLE, Starting on Tue07/20/24 at 1820, Until 07/21/24 at 1215, For wheezing. Notify anesthesia immediately., PACU finasteride (Proscar) tablet 5 mg 5 mg, Oral, DAILY, First dose on Tue07/17/24 at 1715, Until Discontinued, Women who are or planning to become should not handle crushed or broken tablets 0846 ($ Given - Provider: Santiago Hanks RN) 0852 ($ Given - Provider: Dianelys Cowart RN) 0841 ($ Given - Provider: Soheila Santos, KOKI) gabapentin (Neurontin) capsule 100 mg 100 mg, Oral, 3 TIMES DAILY, First dose on Tue07/17/24 at 2100, Until Discontinued 0846 ($ Given - Provider: Santiago Hanks RN)1459 (Not Administered - Provider: Santiago Hanks RN - Reason: Refused-Patient)2050 ($ Given - Provider: Mariposa Caceres) 0852 ($ Given - Provider: Dianelys Cowart RN)1338 ($ Given - Provider: Dianelys Cowart, RN)2000 ($ Given - Provider: Anastasiia Dai, KOKI) 0841 ($ Given - Provider: Soheila Santos, KOKI) guaiFENesin ER 12hr (Mucinex) tablet 600 mg 600 mg, Oral, EVERY 12 HOURS, First dose on Tue07/18/24 at 1000, Until Discontinued, Do not crush, chew, or cut in half. 0845 ($ Given - Provider: Santiago Hanks RN)2050 ($ Given - Provider: Mariposa Caceres) 0852 ($ Given - Provider: Dianelys Cowart, KOKI)2000 ($ Given - Provider: Anastasiia Dai, KOKI) 0841 ($ Given - Provider: Soheila Santos, KOKI) HYDROmorphone (Dilaudid) injection 0.5 mg (COMPLETED) 0.5 mg, Intravenous, ONCE, 1 dose, On Tue07/19/24 at 0915, Patient preference for lesser PRN pain meds may be honored when the patient requests a less strong medication, a lower dose, or a less intrusive route of administration when the lesser drug, dose and route have been ordered for the patient. This patient request must be documented in the MAR. If both oral and IV options are ordered for the same pain severity, give oral first unless patient cannot tolerate oral intake 0910 ($ Given - Provider: Santiago Hanks RN) labetalol (Normodyne; Trandate) injection 5 mg 5 mg, Intravenous, POST-OP MULTIPLE, Starting on Tue07/20/24 at 1820, Until 07/21/24 at 1215, IV given slowly over 1 minute up to 20 mg. Repeat every 10-15 minutes in 5 mg doses. Hold if heart rate is less than 60. Give for hypertension SBP greater than 180, DBP greater than 100., PACU naloxone (Narcan) injection 0.04 mg 0.04 mg, Intravenous, POST-OP MULTIPLE, Starting on Tue07/20/24 at 1820, Until Tue07/21/24 at 1215, Notify physician immediately, and mix 0.4 mg Naloxone in 9 mL Normal Saline for slow IV push. Administer dilute Naloxone solution IV very slowly (1 mL over 30 seconds) while observing the patient response and titrating to effect. If no response, call Rapid Response, continue IV Naloxone at the same rate up to a total of 0.8 mg of diluted Naloxone., PACU polyethylene glycol 3350 (Miralax) packet 17 g 17 g, Oral, DAILY, First dose on Tue07/17/24 at 1715, Until Discontinued, Mix in 8 ounces of water, juice, soda, coffee or tea prior to administration 0848 (Not Administered - Provider: Santiago Hanks RN - Reason: Refused-Patient) 0853 (Not Administered - Provider: Dianelys Cowart RN - Reason: NPO) 0842 (Not Administered - Provider: Soheila Santos RN - Reason: Refused-Patient) sevelamer carbonate (Renvela) tablet 800 mg 800 mg, Oral, 3 TIMES DAILY WITH MEALS, First dose on Tue07/17/24 at 1800, Until Discontinued 0846 ($ Given - Provider: Santiago Hanks RN)1210 ($ Given - Provider: Santiago Hanks RN)1634 ($ Given - Provider: Santiago Hanks RN) 0851 (Not Administered - Provider: Dianelys Cowart RN - Reason: NPO)1157 (Not Administered - Provider: Dianelys Cowart, RN - Reason: NPO)1848 ($ Given - Provider: Dianelys Cowart, KOKI) 0841 ($ Given - Provider: Soheila Santos, KOKI) tamsulosin (Flomax) capsule 0.4 mg 0.4 mg, Oral, DAILY, First dose on Tue07/17/24 at 1715, Until Discontinued, At the same time every day after a meal. Do not crush or chew. May open capsule and administer contents per tube. J-tube administration is not appropriate as the small lumen would necessitate crushing of granules. 0845 ($ Given - Provider: Santiago Hanks, RN) 0852 ($ Given - Provider: Dianelys Cowart, RN) 0841 ($ Given - Provider: Soheila Santos, RN) white petroleum (Vaseline) gel Topical, 3 TIMES DAILY, First dose on Tue07/20/24 at 2100, Until Discontinued, Apply to facial incisions 2015 (Not Administered - Provider: Anastasiia Dai RN - Reason: Other - Comment: pt has thick layer present from surgery) 0843 (Not Administered - Provider: Soheila Santos RN - Reason: Medication not available - Comment: has bacitration ointment at bedside) PRN Medication Order 07/19/2024 07/20/2024 07/21/2024 acetaminophen (Tylenol) tablet 650 mg 650 mg, Oral, EVERY 6 HOURS PRN, Mild Pain, Starting on Tue07/17/24 at 1851, Until 07/21/24 at 1215, Patient preference for lesser PRN pain meds may be honored when the patient requests a less strong medication, a lower dose, or a less intrusive route of administration when the lesser drug, dose and route have been ordered for the patient. This patient request must be documented in the MAR. If both oral and IV options are ordered for the same pain severity, give oral first unless patient cannot tolerate oral intake, Post-op diphenhydrAMINE (Benadryl) injection 25 mg 25 mg, Intravenous, ONCE PRN, Nausea/Vomiting, 1 dose, Starting on Tue07/20/24 at 1820, Until 07/21/24 at 1215, Third choice, use if first and second choice was ineffective., PACU fentaNYL (PF) (Sublimaze) injection 25 mcg 25 mcg, Intravenous, EVERY 10 MIN PRN, Mild Pain, 4 doses, Starting on Tue07/20/24 at 1820, Until 07/21/24 at 1215, Maximum total of 4 doses. If patient reaches max total dose, please consult anesthesiologist prior to further administration of pain meds. Hold pain meds if there are signs of hypoventilation. Patient preference for lesser PRN pain meds may be honored when the patient requests a less strong medication, a lower dose, or a less intrusive route of administration when the lesser drug, dose and route have been ordered for the patient. This patient request must be documented in the MAR. If both oral and IV options are ordered for the same pain severity, give oral first unless patient cannot tolerate oral intake, PACU fentaNYL (PF) (Sublimaze) injection 50 mcg 50 mcg, Intravenous, EVERY 10 MIN PRN, Moderate Pain, 4 doses, Starting on Tue07/20/24 at 1820, Until 07/21/24 at 1215, Maximum total of 4 doses. If patient reaches max total dose, please consult anesthesiologist prior to further administration of pain meds. Hold pain meds if there are signs of hypoventilation. Patient preference for lesser PRN pain meds may be honored when the patient requests a less strong medication, a lower dose, or a less intrusive route of administration when the lesser drug, dose and route have been ordered for the patient. This patient request must be documented in the MAR. If both oral and IV options are ordered for the same pain severity, give oral first unless patient cannot tolerate oral intake, PACU HYDROmorphone (Dilaudid) injection 0.2 mg 0.2 mg, Intravenous, EVERY 4 HOURS PRN, Breakthrough pain or if unable to take PO, Starting on Tue07/20/24 at 1820, Until 07/21/24 at 1215, For use if oral option ineffective or unable to be given. Patient preference for lesser PRN pain meds may be honored when the patient requests a less strong medication, a lower dose, or a less intrusive route of administration when the lesser drug, dose and route have been ordered for the patient. This patient request must be documented in the MAR. If both oral and IV options are ordered for the same pain severity, give oral first unless patient cannot tolerate oral intake, Post-op HYDROmorphone (Dilaudid) injection 0.5 mg 0.5 mg, Intravenous, EVERY 10 MIN PRN, Severe Pain, 4 doses, Starting on Tue07/20/24 at 1820, Until 07/21/24 at 1215, Maximum total of 4 doses If patient reaches max total dose, please consult anesthesiologist prior to further administration of pain meds. Hold pain meds if there are signs of hypoventilation. Patient preference for lesser PRN pain meds may be honored when the patient requests a less strong medication, a lower dose, or a less intrusive route of administration when the lesser drug, dose and route have been ordered for the patient. This patient request must be documented in the MAR. If both oral and IV options are ordered for the same pain severity, give oral first unless patient cannot tolerate oral intake, PACU lidocaine 1% (Xylocaine) - EPINEPHrine 1:100,000 injection (CANCELED) PRN, Starting on Tue07/20/24 at 1731, Until Tue07/20/24 at 1737, Intra-op 1731 ($ Given - Provider: Ernst Rivera MD) methocarbamol (Robaxin) tablet 750 mg 750 mg, Oral, EVERY 6 HOURS PRN, Muscle Spasms, Starting on Tue07/17/24 at 1851, Until 07/21/24 at 1215, Post-op ondansetron (disintegrating) (Zofran ODT) tablet 4 mg(Linked Group 1) 4 mg, Oral, EVERY 6 HOURS PRN, Nausea/Vomiting, Starting on Tue07/17/24 at 1635, Until 07/21/24 at 1215, Dissolved orally on tongue 0918 ($ Given - Provider: Santiago Hanks RN)1736 ($ Given - Provider: Santiago Hanks RN) ondansetron (Zofran) injection 4 mg(Linked Group 1) 4 mg, Intravenous, EVERY 6 HOURS PRN, Nausea/Vomiting, Starting on Tue07/17/24 at 1635, Until 07/21/24 at 1215, Administer IV if patient is NPO, actively vomiting, or unable to swallow. 0918 (See Alternative - Provider: Santiago Hanks RN)1736 (See Alternative - Provider: Santiago Hanks, KOKI) ondansetron (Zofran) injection 4 mg 4 mg, Intravenous, ONCE PRN, Nausea/Vomiting, 1 dose, Starting on Tue07/20/24 at 1820, Until 07/21/24 at 1215, First choice, PACU oxyCODONE (immediate release) (Roxicodone) tablet 10 mg(Linked Group 2) 10 mg, Oral, EVERY 4 HOURS PRN, Severe Pain, Starting on Tue07/17/24 at 1635, Until 07/21/24 at 1215, Patient preference for lesser PRN pain meds may be honored when the patient requests a less strong medication, a lower dose, or a less intrusive route of administration when the lesser drug, dose and route have been ordered for the patient. This patient request must be documented in the MAR. If both oral and IV options are ordered for the same pain severity, give oral first unless patient cannot tolerate oral intake oxyCODONE (immediate release) (Roxicodone) tablet 10 mg(Linked Group 3) 10 mg, Oral, EVERY 4 HOURS PRN, Severe Pain, Starting on Tue07/17/24 at 1851, Until 07/21/24 at 1215, Patient preference for lesser PRN pain meds may be honored when the patient requests a less strong medication, a lower dose, or a less intrusive route of administration when the lesser drug, dose and route have been ordered for the patient. This patient request must be documented in the MAR. If both oral and IV options are ordered for the same pain severity, give oral first unless patient cannot tolerate oral intake, Post-op 0846 ($ Given - Provider: Snatiago Hanks RN) oxyCODONE (immediate release) (Roxicodone) tablet 5 mg(Linked Group 2) 5 mg, Oral, EVERY 4 HOURS PRN, Moderate Pain, Starting on Tue07/17/24 at 1635, Until 07/21/24 at 1215, Patient preference for lesser PRN pain meds may be honored when the patient requests a less strong medication, a lower dose, or a less intrusive route of administration when the lesser drug, dose and route have been ordered for the patient. This patient request must be documented in the MAR. If both oral and IV options are ordered for the same pain severity, give oral first unless patient cannot tolerate oral intake oxyCODONE (immediate release) (Roxicodone) tablet 5 mg(Linked Group 3) 5 mg, Oral, EVERY 4 HOURS PRN, Moderate Pain, Starting on Tue07/17/24 at 1851, Until 07/21/24 at 1215, Patient preference for lesser PRN pain meds may be honored when the patient requests a less strong medication, a lower dose, or a less intrusive route of administration when the lesser drug, dose and route have been ordered for the patient. This patient request must be documented in the MAR. If both oral and IV options are ordered for the same pain severity, give oral first unless patient cannot tolerate oral intake, Post-op 0846 (See Alternative - Provider: Santiago Hanks RN) prochlorperazine (Compazine) injection 10 mg 10 mg, Intravenous, ONCE PRN, Nausea/Vomiting, 1 dose, Starting on Tue07/20/24 at 1820, Until 07/21/24 at 1215, Second choice, use if first choice was ineffective., PACU throat lozenge 1 lozenge 1 lozenge, Oral, EVERY 1 HOUR PRN, Sore Throat, Starting on Tue07/20/24 at 1820, Until 07/21/24 at 1215, PACU Linked Groups Order Group 1: ondansetron (disintegrating) (Zofran ODT) tablet 4 mgJump to med 4 mg, Oral, EVERY 6 HOURS PRN, Nausea/Vomiting, Starting on Tue07/17/24 at 1635, Until 07/21/24 at 1215, Dissolved orally on tongue Or ondansetron (Zofran) injection 4 mgJump to med 4 mg, Intravenous, EVERY 6 HOURS PRN, Nausea/Vomiting, Starting on Tue07/17/24 at 1635, Until 07/21/24 at 1215, Administer IV if patient is NPO, actively vomiting, or unable to swallow. Group 2: oxyCODONE (immediate release) (Roxicodone) tablet 5 mgJump to med 5 mg, Oral, EVERY 4 HOURS PRN, Moderate Pain, Starting on Tue07/17/24 at 1635, Until 07/21/24 at 1215, Patient preference for lesser PRN pain meds may be honored when the patient requests a less strong medication, a lower dose, or a less intrusive route of administration when the lesser drug, dose and route have been ordered for the patient. This patient request must be documented in the MAR. If both oral and IV options are ordered for the same pain severity, give oral first unless patient cannot tolerate oral intake Or oxyCODONE (immediate release) (Roxicodone) tablet 10 mgJump to med 10 mg, Oral, EVERY 4 HOURS PRN, Severe Pain, Starting on Tue07/17/24 at 1635, Until 07/21/24 at 1215, Patient preference for lesser PRN pain meds may be honored when the patient requests a less strong medication, a lower dose, or a less intrusive route of administration when the lesser drug, dose and route have been ordered for the patient. This patient request must be documented in the MAR. If both oral and IV options are ordered for the same pain severity, give oral first unless patient cannot tolerate oral intake Group 3: oxyCODONE (immediate release) (Roxicodone) tablet 5 mgJump to med 5 mg, Oral, EVERY 4 HOURS PRN, Moderate Pain, Starting on Tue07/17/24 at 1851, Until 07/21/24 at 1215, Patient preference for lesser PRN pain meds may be honored when the patient requests a less strong medication, a lower dose, or a less intrusive route of administration when the lesser drug, dose and route have been ordered for the patient. This patient request must be documented in the MAR. If both oral and IV options are ordered for the same pain severity, give oral first unless patient cannot tolerate oral intake, Post-op Or oxyCODONE (immediate release) (Roxicodone) tablet 10 mgJump to med 10 mg, Oral, EVERY 4 HOURS PRN, Severe Pain, Starting on Tue07/17/24 at 1851, Until 07/21/24 at 1215, Patient preference for lesser PRN pain meds may be honored when the patient requests a less strong medication, a lower dose, or a less intrusive route of administration when the lesser drug, dose and route have been ordered for the patient. This patient request must be documented in the MAR. If both oral and IV options are ordered for the same pain severity, give oral first unless patient cannot tolerate oral intake, Post-op documented in this encounter Care Teams Veneer T[employer] Relationship Specialty Start Date End Date None, Physician [id number] [place] [address] PCP - General 04/10/24 documented as of this encounter
--- OUTSIDE RECORDS SUMMARY | 2024-09-24 06:04 | XMS_ITS | Encounter Summary ---
Author Organization [facility] Address [address] [address] Care Team Providers Care District Administrator Name Role Phone None, Physician Primary Care Provider Unavailabl e Reason for Visit * Auth/Cert (Routine) Specialty Diagnoses / Procedures Referred By Contac t Referred To Contact Diagnoses Malignant neoplasm of upper lobe of right lung (HCC) Malignant neoplasm of upper lobe of right lung Procedures HI THORACOSCOPY W/LOBECTOMY HI THORACOSCOPY REMOVE SEGMENT THORACOSCOPIC (VATS) LOBECTOMY Referral ID Status Reason Start Date Expiration Date Visits Re quested Visits Authorized [id number] 1 1 Encounter Details Date Type Department Care Team (Late st Contact Info) Description 07/17/2024 12:30 PM CDT - 07/17/2024 2:59 PM CDT Surgery [facility] [address] [place] [address] Augustine Jimenez MD [address] [facility] [facility] [address] [place] [phone] Video-assisted thoracoscopic Left upper lobe Lingular sparing Segmentectomy Surgery Details Date/Time Status Location OR Service Patient Class Case Class Case Type Trauma Case? 07/17/2024 12:30 PM Posted [facility] OR OR 02 Thoracic Ergonomist Admit Surgical Elective > 5 days Panel 1 Procedure LRB Anes Op Region Wound Class Comments Video-assisted thoracoscopic Left upper lobe Lingular sparing Segmentectomy Left General Chest Clean Surgeon Surgeon Role Service Panel Sherry Yuan DO Resident - Assisting General 1 Augustine Jimenez MD Primary Thoracic 1 Case Notes PATIENT IS IN A NURSING SRINIVAS: [phone] ([facility]) Special Needs SUPINE, ENDO VIDEO CART, BANKS BAG documented in this encounter Social History Tobacco Use Types Packs/Day Years Used Date Smoking Tobacco: Every Day Cigarettes 1 51 Smokeless Tobacco: Never Comments:Down to less than h long term a pack daily Alcohol Use Standard Drinks/Week [...] and heating? Not hard at all 05/23/2024 [facility] - Occupational [...] place to sleep or slept in a mcc (including now)? No 05/23/2024 Sex and Gender Information Value Date Recorded Sex Assigned at Not on file Gender Identity Not on file Sexual Orientation Not on file documented as of this encounter Last Filed Vital Signs Vital Sign Reading Time Taken Comments Blood Pressure 139/88 07/17/2024 12:00 PM CDT Pulse 83 07/17/2024 12:00 PM CDT Temperature 36.6 ??C (97.8 ??F) 07/17/2024 11:00 AM C DT Respiratory Rate - - Oxygen Saturation 95% 07/17/2024 12:00 PM CDT Inhaled Oxygen Concentration - - [...] Physician Discharge Summary Patient ID: Andrey Giron [id number] 64 year old male 1960 Admit date: [...] per nephrology according to his baseline schedule ([facility]) on Saturday 08/18. Dialysis was scheduled again for Friday 07/20, but the patient refused. He was again offered dialysis at [facility] on 07/21, but the patient again refused, [...] deficits Psych: Appropriate mood and affect Disposition: [facility] Patient Instructions: Medication List START taking these [...] Your Medications These medications were sent to [facility] - [address] [address] [place] [address] acetaminophen 500 MG tablet oxyCODONE (immediate release) 5 MG tablet white petroleum ointment Contact information for follow-up providers None, Physician . Contact information for after-discharge care Dialysis/Infusion [facility] . Service: Dialysis Contact information: Elia Art Harper [address] [place] [phone] Discharge Instructions ENT Discharge Instructions - [...] follow up. Call to confirm or schedule [phone] - For weekday daytime concerns, call our office at [phone]. For weekend or nighttime concerns,call the hospital at [phone], dial 0, and ask for the ENT resident communications manager. Signed: Ayana Pinedo MD General Surgery Resident 07/21/2024 ION BLOCK CLERK documented in this encounter Discharge Instructions * [...] follow up. Call to confirm or schedule [phone] - For weekday daytime concerns, call our office at [phone]. For weekend or nighttime concerns,call the hospital at [phone], dial 0, and ask for the ENT resident communications manager. documented in this encounter Medications at Time [...] dialyze understanding the risk . * Soheila Snatos RN - 07/21/2024 8:46 AM CDT Problem: [...] Temp (30hrs) Max:98.9 ??F (37.2 ??C) Vitals: 07/20/248 07/21/24 0006 07/21/24 0413 07/21/24 0816 BP: [...] months for follow up. Our office contact: [phone] Vladislav Singh MD Otolaryngology Head and Neck [...] months for follow up. Our office contact: [phone] Ersnt Rivera MD Otolaryngology - Head and Neck [...] are grossly intact Recent Labs Component Name 07/20/24 0155 07/19/24 0149 07/18/24 014 WBC 7.9 8.9 11.1* RBC 3.33* 3.31* 3.29* HGB 10.8* 10.7* 10.5* HCT 33.2* 32.2* 32.9* MCV 99.7* 97.3 100.0* MCHC 32.5 33.2 31.9 PLTCOUNT 180 189 211 NEUTPCT 68.3 70.8 86.2* LYMPHPCT 18.3 17.2 6.3* LYMPHABS 1.44 1.53 0.70* BASOABS 0.04 0.06 0.01 Recent Labs Component Name 07/20/24 0155 07/19/24 0149 07/18/24 0145 NA 139 138 138 POTASSIUM 4.0 [...] Pinedo MD Thoracic Surgery 07/20/2024 4:17 PM ION BLOCK CLERK * Dianelys Cowart RN - 07/20/2024 4:11 [...] 07/23/2024 Discharge Plan: Patient to return to [facility] when medically ready. Family Support (Name and Phone): Extended Emergency Contact Information Primary Emergency Contact: HARRIET LAGUNAS Mobile Relation: Other Secondary Emergency Contact: ARI GIRON Mobile Relation: Daughter Inside Polisher needed? No Transportation at Discharge: Bus READMISSION RISK SCORE is 15 at 3:05 PM 07/20/2024 Name: Caridad Gresham RN [phone] * Ernst Rivera MD - 07/20/2024 2:29 [...] he will call his dialysis center in [facility] and arrange for his dialysis tomorrow , he said he will be back on Monday 07/23 for ENTsurgery ... He just want to go home today . Will put dialysis orders for tomorrow in case he did not go home. * Wilma Dangelo PT - 07/20/2024 10:50 AM CDT [facility] Physical Medicine and Rehabilitation Physical Therapy Progress Note Patient: Andrey Giron Med Record Number: [id number] Date of : 1960 Age: [age] year [...] independently Patient will ambulate 250 feet independently Nursing Home Goal(s): Patient to be baseline with functional [...] Martha Renner - 07/20/2024 8:32 AM CDT [facility] Nephrology Progress Note Brief Hospital Course: Andrey Giron is a 64 year old male w/ PMH significant for basal cell carcinoma to left nares s/p resection and reconstruction, left lung adenocarcinoma, 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 Nephrology serviced was [facility]ul [facility] on 07/18 for HD. ENT was [...] Oral QDAY Physical Exam: Vitals: 07/19/24 1311 07/19/24202007/19/240 07/20/24 0742 BP: 122/66 127/71 132/72 Pulse: 78 [...] Calm, cooperative LABS: Recent Labs Component Name 07/20/24 0155 07/19/24 0149 07/18/24 014 NA 139 138 138 POTASSIUM 4.0 3.8 5.4* CL 101 101 112* CO2 23 26 13* BUN 51* 34* 82* CREATININE 9.06* 7.59* 12.10* Recent Labs Component Name 07/20/24 0155 07/19/24 0149 07/18/24 014 CALCIUM 9.2 8.4 8.5 PHOS 5.6* 4.9 4.7 No results for input(s): PTHINTACT , [id number] in the last 97995 hours. Recent Labs Component Name 07/20/24 0155 07/19/24 0149 07/18/24 0145 WBC 7.9 8.9 11.1* HGB 10.8* 10.7* 10.5* No results for input(s): IRON , TIBC , FERRITIN in the last 39192 hours. ASSESSMENT Andrey Giron is a 64 [...] MWF for past 6 months (goes to [facility] with Dr. 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 Nephrology serviced was consul [facility] on 07/18 for HD. INTERVAL HISTORY: No [...] 4.7 No results for input(s): PTHINTACT , [id number] in the last 67441 hours. Recent Labs Component Name 07/19/2414807/18/2414407/17/24 1041 WBC 8.9 11.1* 9.1 HGB 10.7* 10.5* 12.0* No results for input(s): IRON , TIBC , FERRITIN in the last 38549 hours. ASSESSMENT Andrey Giron is a 64 [...] (see below) - Receives HD MWF at [facility] with Dr. Verma - Access: currently through [...] Pal OT - 07/19/2024 8:16 AM CDT [facility] Physical Medicine and Rehabilitation Occupational Therapy Initial Evaluation Note Patient: Andrey Giron Med Record Number: [id number] Date of : 1960 Age: [age] year [...] d/c home Home Situation: Type of Residence: Prison (for rehab) Home Structure: One Story Primary [...] Patient will transfer to standard toilet independently Facility Sales And Admin Goal(s): Patient to be independent with functional [...] session, patient left in bed. * Sherry Yuan DO - 07/19/2024 8:13 AM CDT Images [...] intact Recent Labs Component Name 07/19/24 0149 07/18/24 0145 07/17/24 1041 05/22/24 1454 WBC 8.9 11.1* [...] Yuan, DO Thoracic Surgery 07/19/2024 8:13 AM ION BLOCK CLERK * Marbella Huerta, PT - 07/19/2024 8:11 AM CDT [facility] Physical Medicine and Rehabilitation Physical Therapy Initial Evaluation Note Patient: Andrey Giron [facility] Record Number: [id number] Date of : 1960 Age: [age] year [...] previous facility Home Situation: Type of Residence: Prison (for rehab) Home Structure: One Story Equipment [...] independently Patient will ambulate 250 feet independently Nursing Home Goal(s): Patient to be baseline with functional [...] , with call light within reach, with RNSantiago aware, with therapy cues visible on white [...] Dressing Status None Access Site Evaluation [place];[facility] Hemodialysis Tunneled Catheter Internal Jugular Placement Date/Time: [...] Hess, PT - 07/18/2024 2:00 PM CDT [facility] Department of Physical Medicine & Rehabilitation Patient: Andrey Giron Med Record Number: [id number] Date of : 1960 Age: [age] year old 07/18/24 1400 Missed Visit Missed Visit Procedure Off Floor Patient off the floor Dialysis PT orders received and chart reviewed. Pt currently off the floor for HD. Will continue to follow for PT evaluation. * Carolyn Hanley RN - 07/18/2024 12:00 PM CDT Care Coordination Initial Assessment Expected Discharge Date: 07/19/2024 Expected Discharge Disposition: Care Home Facility Transportation at Discharge: Pt stated facility would pick him up in van/bus Prior Level of Care: Prison - Skilled Facility Prior to Admit Provider: [facility] Comments: Pt admitted for L VATS with left upper lobe wedge resection. Pt in dialysis, spoke with pt's daughter. Pt resides in SNF. Pt will return at discharge. Spoke with pt and updated assessment. Lives with: Other (Comment) ([facility]) Physical Limitations: None Requires Assistance With: housekeeping, meal prep [facility] [address] [facility] [address] [address] [phone] READMISSION RISK SCORE is 15 at 12:36 PM 07/18/2024. Met with daughter Family Support (name and phone): Extended Emergency Contact Information Primary Emergency Contact: ARI GIRON Mobile Relation: Daughter Inside Polisher needed? No Patient or sales representative groceries requests care coordination reach out to family or caregiver listed above regarding discharge planning and at time of discharge? Yes Actual Level of Care/Dispostion Details Durable Medical Equipment Planning Equipment at Home: Walker;Other (Comment) (Facility equipment) Type of Walker: Front Wheeled Walker no longer uses. Precise Winder Referral: Yes Will continue to follow. For any questions or needs please contact: Education Paraprofessional/Social Work Name/Phone number: Carolyn Hanley RN * [...] for their review. Spoke with Sloane at [facility] and she was able to confirm patient's OP HD schedule Outpatient Clinic [facility] Days: Time: 10:00am Doctor: Dr Verma 07/18/2024 11:39 AM Meet with patient in patient's room. Patient voiced no concerns with OP HD. Documented acknowledgement of choice: Yes Alexa Anderson [facility]: [phone] Office: [phone] * Tereza Chavez RN - 07/18/2024 9:38 [...] Report from: Santiago Hanks R Phone number: [phone] * Rola Ewing RCP - 07/18/2024 9:11 AM CDT Pt refuses vest therapy due to pain/ discomfort, RN agreed to assist pt with ambulating later today. Aerobika will also be implemented. * Connie Echols APRN-FACILITIES DIRECTOR - 07/18/2024 8:13 AM CDT Images from [...] are grossly intact Recent Labs Component Name 07/18/2414407/17/24 10405/22/24 1454 WBC 11.1* 9.1 8.1 RBC 3.29* 3.71* 3.53* HGB 10.5* 12.0* 11.5* HCT 32.9* 37.3* 33.6* MCV 100.0* 100.5* 95.2 MCHC 31.9 32.2 34.2 PLTCOUNT 211 240 198 NEUTPCT 86.2* - 70.8 LYMPHPCT 6.3* - 19.4 LYMPHABS 0.70* - 1.58 BASOABS 0.01 - 0.06 Recent Labs Component Name 07/18/2414407/17/24104005/23/24 0724 NA [...] ENT later today - CXR in am JEOVANY Daily Thoracic Surgery 07/18/2024 8:14 AM * Mariposa Caceres - 07/18/2024 5:27 AM CDT Problem: Pain/Discomfort Goal: Patient exhibits reduced pain/discomfort as evidenced by pain scores Outcome: Progressing Goal: Patient uses pharmacological and non-pharmacological pain management strategies. Outcome: Progressing Problem: Fall Risk Goal: Fall risk and fall related injury risk are minimized (interventions related to the fall risk can be found in the flowsheet documentation) Outcome: Progressing * Mariposa Caceres - 07/18/2024 1:06 AM CDT Pt arrived [...] Day: 0 POD: Day of Surgery Room: 817/01 Procedure: Video-assisted thoracoscopic Left upper lobe Lingular sparing Segmentectomy Subjective: No acute events since surgery. HD stable and afebrile at this time. Pain is well controlled. No complaints at this time. Objective: Patient Vitals for the past 6 hrs: Temp Pulse Resp BP BP Method 07/17/242021 98 ??F (36.7 ??C) 103 16 133/82 Automatic 07/17/241929 97.4 ??F (36.3 ??C) 100 10 124/60 Automatic 07/17/24 190 -- 98 9 139/73 Automatic 07/17/24 183 -- 101 12 119/71 Automatic 07/17/24 181 -- 96 10 112/62 Automatic 07/17/24 181 -- 97 12 114/64 Automatic 07/17/24 1805 -- 109 10 115/63 Automatic 07/17/24 1800 -- 96 10 111/67 Automatic 07/17/24 175 -- (!) 113 15 108/64 Automatic 07/17/24 175 -- (!) 110 11 109/64 Automatic 07/17/24 174 -- (!) 111 10 92/77 Automatic 07/17/24 174 -- 108 9 -- -- Urine output [...] mood and affect Assessment and Plan: Andrey Giron is a [...] , PTT , INR in the last 27893 hours. Imaging & Procedures: PET CT 05/07/24 [...] Dr. Jimenez. Crystal Snow, MS4 Medical Student [employer] Attending Note Pt [...] operation with Dr. Mensah. I spoke with Makenna and he tell s me that his follow-up operation will only entail 15 to 30 minutes of surgery. The patient has significant social issues includingliving in a mcfp. He informs me that his daughter who lives in [place] will be his power of title attorney. The patient has multiple medical issues [...] He agrees to proceed Ritesh Mensah MD Slitter Scorer Cut Off Operator Facial Plastic and Reconstructive Surgery Otolaryngology- Head and Neck Surgery * Renner Martha C - 07/18/2024 2:11 PM CDT [facility] Nephrology Consult Note Date of Admission: 07/17/2024 [...] wedge resection with CTS. [facility] Patient was seen at HD unit this AM. He is POD1 from MANISHA wedge resection. Reports some post-op discomfort/pain, but otherwise feels well while connected to HD machine. Dialysis Center: [facility] Dialysis Days: MWF Date if last dialysis: Access: R-IJ Permcath (also has RUE fistula, but not yet used) Assistant Quality Manager: Dr. Verma Review of Systems (positives are [...] No Stress: No Stress Concern Present (05/23/2024) [employer] [place] [employer] - Occupational Stress Questionnaire [...] R-IJ Permcath LABS: Recent Labs Component Name 07/18/24 01407/17/24 1041 05/23/24 0724 NA 138 140 138 POTASSIUM 5.4* 5.0* 4.4 CL 112* 114* 105 CO2 13* 14* 21* BUN 82* 73* 59* CREATININE 12.10* 11.41* 10.53* Recent Labs Component Name 07/18/2414407/17/24 1041 05/23/24 0724 CALCIUM 8.5 9.0 8.6 PHOS 4.7 4.7 6.9* No results for input(s): PTHINTACT , UEA1PPFIAF in the last 97667 hours. 25-OH Vitamin D = No results for input(s): HGBA1C , A1C , [id number] , EAG in the last 49605 hours. Recent Labs Component Name 07/18/24 01407/17/24 1041 05/22/24 1454 WBC 11.1* 9.1 8.1 HGB 10.5* 12.0* 11.5* No results for input(s): IRON , TIBC , FERRITIN in the last 69420 hours. IMAGING: No results found. ASSESSMENT Andrey [...] (see below) - Receives HD MWF at [facility] with Dr. Verma - Access: currently through [...] the same conclusion. 07/18/2024 3:03 PM Teodoro Resendiz MD ESKD due to obstructive uropathy , has bilateral nephrostomy tubes , been of HD via a Rt IJ TDC for6 months, here S/P MANISHA resection . See also procedure note . * Brian Maya MSW - 07/18/2024 1:53 PM CDTAssociated Order(s): IP CONSULT TO CLEANER TOUCH UP WORKER Social Work Progress Note Discharge Plan Disposition: SNF Transportation: Transportation at discharge: Ambulance Anticipated Discharge Date: 07/19/2024 Contacts: Extended Emergency Contact Information Primary Emergency Contact: ARI GIRON Mobile Relation: Daughter Inside Polisher needed? No Comments: Pt is from [facility]. SW will follow up with facility to ensure pt canreturn. Name/Phone number: Brian SANTA Maya [phone] documented in this encounter OR Notes * Operative - Ritesh Mensah MD - 07/20/2024 5:00 PM CDT OPERATIVE REPORT NAME: Andrey Giron : 1960 CSN: [id number] DATE OF OPERATION: 07/20/2024 ATTENDING SURGEON: Ritesh Mensah MD Pre-Op Diagnosis: Basal cell carcinoma nose Post-Op Diagnosis: Same Procedure: -Division and inset forehead flap (CPT 37367) Entertainment Musician Ernst Rivera MD Indications for procedure: Andrey Giron is a 64 year old male with a history of basal cell carcinoma on the nose. He underwent resection with Dr. Menezes and forehead flap with la for reconstruction 05/22/24. The patient has been [...] The flap was placed into the dorsum. [place] skinon the dorsum was excised to allow the upper portion of the forehead flap to fit into the defect. The flap was inset with 5-0 monocryl in the deep layer and 5-0 chromic in the skin layer Estimated Blood Loss: minimal Complications: None apparent. Condition: Stable I was present and performed all critical portions of the surgery. Ritesh Mensah MD Slitter Scorer Cut Off Operator Facial Plastic and Reconstructive Surgery Otolaryngology- Head [...] Sherry Yuan DO - Resident - Assisting Entertainment Musician(s): Elizabeth MS3 Anesthesia Type: general ETT Complications: none Findings: L VATS with left upper lobe wedge resection. Lymph node stations: 3, 5, 6, and 10 sent for pathology. EBL: blood loss of 50 ml Urine Output : none IV Fluid Intake: 600 crystalloid Drains: Nephrostomy Tube Back;Left (Active) Nephrostomy Tube Output 200 07/17/24 1359 Status Patent;To [place] 07/17/24 1100 Site Assessment WDL 07/17/24 1100 Dressing Status Clean, Dry, Intact 07/17/24 1100 Dressing Type Occlusive 07/17/24 1100 Nephrostomy Tube Back;Right (Active) Nephrostomy Tube Output 200 07/17/24 1359 Status Patent;To [place] 07/17/24 1100 Site Assessment WD 07/17/24 1100 Dressing Status Clean, Dry, Intact [...] * Augustine Jimenez MD - Primary * hSerry Yuan DO - Resident - Assisting Anesthesia Type: general ETT Complications: none Findings: This is a 64-year-old patient with multiple comorbidities including renal failure on chronic dialysis. We have been working with his m[facility] to bring the patient into the hospital [...] station 3 lymph nodeanteriorly. A single 28 [place]erratian coaxial drain was placed into the chest [...] Tube Output 150 07/18/24 0451 Status Patent;To [place] 07/17/242040 Site Assessment WDL 07/17/242040 Dressing Status Clean, Dry, Intact 07/17/242040 Dressing Type Occlusive 07/17/242040 Nephrostomy Tube Back;Right (Active) Nephrostomy Tube Output 150 07/18/24 0451 Status Patent;To [place] 07/17/242040 Site Assessment WDL 07/17/242040 Dressing Status Clean, Dry, Intact 07/17/242040 Dressing Type Occlusive 07/17/242040 Chest Tube #1 Coaxial 28 FR Left Chest (Active) Chest Tube Output 20 ML 07/18/24450 Output Description Sanguinous (red) 07/18/24450 Site Assessment [...] Node PATHOLOGY TISSUE Augustine Jimenez MD07/17/2024 1602 F : Station 10 lymph node. Biopsy, Excision Lymph Node PATHOLOGY TISSUE Augustine Jimenez MD 07/17/2024 1602 Implant(s): * No implants in log * Augustine Jimenez MD documented in this encounter Plan of Treatment Upcoming Encounters Date Type Department Care Team (Late st Contact Info) Description 10/16/2024 1:30 PM AUCTION BLOCK CLERK Office Visit [facility] [facility], [place] [id number] Ritesh Mensah MD [facility] [address] [place] [address] Scheduled Orders Name Type Priority Associated Diagnoses [...] Timed 07/21/2024 2:02 AM CDT Lung nodule XR CHEST 2VW Routine 07/20/2024 9:49 AM [...] of upper lobe of right lung (HCC) HI THORACOSCOPY W/LOBECTOMY 07/17/2024 2:15 PM CDT Malignant neoplasm of upper lobe of left lung (HCC) Case Notes PATIENT IS IN A NURSING SRINIVAS: [phone] ([facility]) Special Needs SUPINE, ENDO VIDEO CART, [...] Chest Digital Radiogra phy 07/22/2024 2:53 PM AUCTION BLOCK CLERK Impressions 07/22/2024 2:54 PM AUCTION BLOCK CLERK IMPRESSION: Unchanged right internal jugular central venous [...] 07/22/2024 2:54 PM Narrative 07/22/2024 2:54 PM AUCTION BLOCK CLERK PROCEDURE: ??XR CHEST 1VW PORTABLE DATE/TIME OF [...] - 5.1 mg/dL 07/21/2024 2:49 AM CDT [facility] Blood BLOOD SPECIMEN / Unknown Lab Venipuncture / Unknown 07/21/2024 2:02 AM CDT 07/21/2024 2:23 AM CDT Augustine Jimenez MD LAB - TIE INSPECTOR RY ORDERABLES Performing Organization Address City/State/[facility] Co de Phone Number [address] [address], [facility] [phone] * MAGNESIUM BLOOD (07/21/2024 2:02 AM CDT) Magnesium 2.5 1.6 - 2.6 mg/dL 07/21/2024 2:49 AM CDT [facility] Blood BLOOD SPECIMEN / Unknown Lab Venipuncture / Unknown 07/21/2024 2:02 AM CDT 07/21/2024 2:23 AM CDT Augustine Jimenez MD LAB - TIE INSPECTOR RY ORDERABLES [facility] [address] [place] [address], [facility] [phone] * (ABNORMAL) CBC W/O DIFFERENTIAL (07/21/2024 2:02 AM CDT) [facility] WBC 8.1 4.0 - 10.7 x10E9/L 07/21/2024 2:29 AM [facility] RBC Count 3.21(L) 4.30 - 5.80 x10E12/L 07/21/2024 2:29 AM [facility] Hemoglobin 10.4(L) 13.3 - 17.5 g/dL 07/21/2024 2:29 AM [facility] Hematocrit 32.3(L) 38.7 - 51.1 % 07/21/2024 2:29 AM [facility] MCV 100.6(H) 80.0 - 98.0 fL 07/21/2024 2:29 AM [facility] MCH 32.4 26.7 - 33.6 pg 07/21/2024 2:29 AM [facility] MCHC 32.2 31.7 - 36.3 g/dL 07/21/2024 2:29 AM [facility] RDW-CV 13.8 11.3 - 14.8 % 07/21/2024 2:29 AM [facility] Platelet Count 184 150 - 420 x10E9/L 07/21/2024 2:29 AM [facility] MPV 9.6 7.8 - 11.4 fL 07/21/2024 2:29 AM [facility] Blood BLOOD SPECIMEN / Unknown Lab Venipuncture / Unknown 07/21/2024 2:02 AM CDT 07/21/2024 2:25 AM T Augustine Jimenez MD LAB - HEMATOL OGY ORDERABLES [facility] [address] [place] [address], [facility] [phone] * (ABNORMAL) BASIC METABOLIC PANEL (CALCIUM TOTAL) (07/21/2024 2:02 AM CDT) BUN 58(H) 7 - 26 mg/dL 07/21/2024 2:49 AM [facility] Creatinine 10.50(H) 0.71 - 1.16 mg/dL 07/21/2024 2:49 AM [facility] Sodium 139 136 - 145 mmol/L 07/21/2024 2:49 AM [facility] Potassium 4.3 3.5 - 4.5 mmol/L 07/21/2024 2:49 AM [facility] Chloride 101 98 - 107 mmol/L 07/21/2024 2:49 AM [facility] CO2 24 22 - 29 mmol/L 07/21/2024 2:49 AM [facility] Glucose 163(H) 70 - 99 mg/dL 07/21/2024 2:49 AM [facility] Calcium 8.6 8.4 - 10.2 mg/dL 07/21/2024 2:49 AM [facility] Anion Gap 14 6 - 16 07/21/2024 2:49 AM [facility] BUN/Creatinine Ratio 6(L) 7 - 23 07/21/2024 2:49 AM [facility] Osmolality Calculated 308(H) 275 - 295 mOsm/kg 07/21/2024 2:49 AM [facility] eGFR by CKD-EPI 5(L) >=90 mL/min/1.7 3 m2 07/21/2024 2:49 AM [facility] Blood BLOOD SPECIMEN / Unknown Lab Venipuncture / Unknown 07/21/2024 2:02 AM CDT 07/21/2024 2:23 AM T Augustine Jimenez MD LAB - TIE INSPECTOR RY ORDERABLES [facility] [address] [place] [address], [facility] [phone] * (ABNORMAL) CBC W AUTO DIFFERENTIAL (07/21/2024 2:02 AM [facility] Signature WBC 8.1 4.0 - 10.7 x10E9/L 07/21/2024 2:29 AM [facility] RBC Count 3.21(L) 4.30 - 5.80 x10E12/L 07/21/2024 2:29 AM [facility] Hemoglobin 10.4(L) 13.3 - 17.5 g/dL 07/21/2024 2:29 AM [facility] Hematocrit 32.3(L) 38.7 - 51.1 % 07/21/2024 2:29 AM [facility] MCV 100.6(H) 80.0 - 98.0 fL 07/21/2024 2:29 AM [facility] MCH 32.4 26.7 - 33.6 pg 07/21/2024 2:29 AM [facility] MCHC 32.2 31.7 - 36.3 g/dL 07/21/2024 2:29 AM [facility] RDW-CV 13.8 11.3 - 14.8 % 07/21/2024 2:29 AM [facility] Platelet Count 184 150 - 420 x10E9/L 07/21/2024 2:29 AM [facility] MPV 9.6 7.8 - 11.4 fL 07/21/2024 2:29 AM [facility] Neutrophil % 69.8 41.0 - 74.0 % 07/21/2024 2:29 AM [facility] Lymphocyte % 14.2(L) 17.0 - 47.0 % 07/21/2024 2:29 AM [facility] Monocyte % 7.9 3.0 - 11.0 % 07/21/2024 2:29 AM [facility] Eosinophil % 7.4(H) 0.0 - 7.0 % 07/21/2024 2:29 AM [facility] Basophil % 0.5 0.0 - 1.6 % 07/21/2024 2:29 AM [facility] Immature Granulocytes % 0.2 0.0 - 1.0 % 07/21/2024 2:29 AM CDT [facility] Neutrophil Absolute 5.67 1.60 - 7.50 x10E9/L 07/21/2024 2:29 AM CDT [facility] Lymphocyte Absolute 1.15 1.00 - 4.40 x10E9/L 07/21/2024 2:29 AM CDT [facility] Monocyte Absolute 0.64 0.15 - 1.00 x10E9/L 07/21/2024 2:29 AM CDT [facility] Eosinophil Absolute 0.60 0.00 - 0.60 x10E9/L 07/21/2024 2:29 AM CDT [facility] Basophil Absolute 0.04 0.00 - 0.13 x10E9/L 07/21/2024 2:29 AM CDT [facility] Blood BLOOD SPECIMEN / Unknown Lab Venipuncture / Unknown 07/21/2024 2:02 AM CDT 07/21/2024 2:25 AM CDT Augustine Jimenez MD LAB - HEMATOL OGY ORDERABLES [facility] [address] [place] [address], [facility] [phone] * XR Chest 2Vw (07/20/2024 9:49 AM [...] DATE/TIME OF EXAM: ??07/20/2024 5:40 AM, LOCATION ??[facility] INDICATION: R91.1: Lung nodule ADDITIONAL CLINICAL INFORMATION: [...] wall. Report dictated by Kristel Muller MD (business services vice president). Teddy Posey MD have personally reviewed and interpreted this examination/study. > Interpreting Provider: Teddy Johnston MD on 07/20/2024 11:14 AM Procedure Note Teddy Johnston MD - 07/20/2024 PROCEDURE: XR CHEST 1VW PORTABLE, DATE/TIME OF EXAM: 07/20/2024 5:40AM, LOCATION [facility] INDICATION: R91.1: Lung nodule ADDITIONAL CLINICAL INFORMATION: [...] wall. Report dictated by Kristel Muller MD (business services vice president). Teddy Posey MD have personally reviewed and interpreted this examination/study. > Interpreting Provider: Teddy Johnston MD on 07/20/2024 11:14 AM Connie Echols PHYSICIST [employer] DIRECTOR DIAGNOSTIC IMAGIN G ORDERABLES * (ABNORMAL) PHOSPHORUS BLOOD (07/20/2024 1:55 AM CDT) Phosphorus 5.6(H) 2.8 - 5.1 mg/dL 07/20/2024 3:15 AM CDT [facility] Blood BLOOD SPECIMEN / Unknown Lab Venipuncture / Unknown 07/20/2024 1:55 AM CDT 07/20/2024 2:43 AM CDT Augustine Jimenez MD LAB - TIE INSPECTOR RY ORDERABLES [facility] [address] [address] [phone] * MAGNESIUM BLOOD (07/20/2024 1:55 AM CDT) Magnesium 2.2 1.6 - 2.6 mg/dL 07/20/2024 3:15 AM [facility] Blood BLOOD SPECIMEN / Unknown Lab Venipuncture / Unknown 07/20/2024 1:55 AM CDT 07/20/2024 2:43 AM CDT Augustine Jimenez MD LAB - TIE INSPECTOR RY ORDERABLES [facility] [address] [place] [address], [facility] [phone] * (ABNORMAL) BASIC METABOLIC PANEL (CALCIUM TOTAL) (07/20/2024 1:55 AM CDT) BUN 51(H) 7 - 26 mg/dL 07/20/2024 3:15 AM [facility] Creatinine 9.06(H) 0.71 - 1.16 mg/dL 07/20/2024 3:15 AM [facility] Sodium 139 136 - 145 mmol/L 07/20/2024 3:15 AM [facility] Potassium 4.0 3.5 - 4.5 mmol/L 07/20/2024 3:15 AM [facility] Chloride 101 98 - 107 mmol/L 07/20/2024 3:15 AM [facility] CO2 23 22 - 29 mmol/L 07/20/2024 3:15 AM [facility] Glucose 116(H) 70 - 99 mg/dL 07/20/2024 3:15 AM [facility] Calcium 9.2 8.4 - 10.2 mg/dL 07/20/2024 3:15 AM [facility] Anion Gap 15 6 - 16 07/20/2024 3:15 AM [facility] BUN/Creatinine Ratio 6(L) 7 - 23 07/20/2024 3:15 AM [facility] Osmolality Calculated 303(H) 275 - 295 mOsm/kg 07/20/2024 3:15 AM [facility] eGFR by CKD-EPI 6(L) >=90 mL/min/1.7 3 m2 07/20/2024 3:15 AM [facility] Blood BLOOD SPECIMEN / Unknown Lab Venipuncture / Unknown 07/20/2024 1:55 AM CDT 07/20/2024 2:43 AM CDT Augustine Jimenez MD LAB - TIE INSPECTOR RY ORDERABLES [facility] [address] [place] [address], [facility] [phone] * (ABNORMAL) CBC W AUTO DIFFERENTIAL (07/20/2024 1:55 AM CDT) WBC 7.9 4.0 - 10.7 x10E9/L 07/20/2024 2:55 AM [facility] RBC Count 3.33(L) 4.30 - 5.80 x10E12/L 07/20/2024 2:55 AM [facility] Hemoglobin 10.8(L) 13.3 - 17.5 g/dL 07/20/2024 2:55 AM [facility] Hematocrit 33.2(L) 38.7 - 51.1 % 07/20/2024 2:55 AM [facility] MCV 99.7(H) 80.0 - 98.0 fL 07/20/2024 2:55 AM [facility] MCH 32.4 26.7 - 33.6 pg 07/20/2024 2:55 AM [facility] MCHC 32.5 31.7 - 36.3 g/dL 07/20/2024 2:55 AM [facility] RDW-CV 14.1 11.3 - 14.8 % 07/20/2024 2:55 AM [facility] Platelet Count 180 150 - 420 x10E9/L 07/20/2024 2:55 AM [facility] MPV 9.7 7.8 - 11.4 fL 07/20/2024 2:55 AM [facility] Neutrophil % 68.3 41.0 - 74.0 % 07/20/2024 2:55 AM [facility] Lymphocyte % 18.3 17.0 - 47.0 % 07/20/2024 2:55 AM [facility] Monocyte % 8.3 3.0 - 11.0 % 07/20/2024 2:55 AM [facility] Eosinophil % 4.2 0.0 - 7.0 % 07/20/2024 2:55 AM [facility] Basophil % 0.5 0.0 - 1.6 % 07/20/2024 2:55 AM [facility] Immature Granulocytes % 0.4 0.0 - 1.0 % 07/20/2024 2:55 AM [facility] Neutrophil Absolute 5.36 1.60 - 7.50 x10E9/L 07/20/2024 2:55 AM [facility] Lymphocyte Absolute 1.44 1.00 - 4.40 x10E9/L 07/20/2024 2:55 AM [facility] Monocyte Absolute 0.65 0.15 - 1.00 x10E9/L 07/20/2024 2:55 AM [facility] Eosinophil Absolute 0.33 0.00 - 0.60 x10E9/L 07/20/2024 2:55 AM [facility] Basophil Absolute 0.04 0.00 - 0.13 x10E9/L 07/20/2024 2:55 AM [facility] Blood BLOOD SPECIMEN / Unknown Lab Venipuncture / Unknown 07/20/2024 1:55 AM CDT 07/20/2024 2:46 AM CDT Augustine Jimenez MD LAB - HEMATOL OGY ORDERABLES [facility] [address] [place] [address], [facility] [phone] * XR Chest 1Vw Portable (07/19/2024 5:01 AM CDT) Anatomical Region Laterality Modality Chest Digital Radiogra phy 07/19/2024 11:2 3 AM CDT Narrative 07/19/2024 11:52 AM CDT PROCEDURE: ??XR CHEST 1VW PORTABLE, DATE/TIME OF EXAM: ??07/19/2024 5:01 AM, LOCATION ??[facility] INDICATION: R91.1: Lung nodule ADDITIONAL CLINICAL INFORMATION: [...] wall. Report dictated by Kristel Muller MD (business services vice president). Teddy Posey MD have personally reviewed and interpreted this examination/study. > Interpreting Provider: Teddy Johnston MD on 07/19/2024 11:52 AM Procedure Note Teddy Johnston MD - 07/19/2024 PROCEDURE: XR CHEST 1VW PORTABLE, DATE/TIME OF EXAM: 07/19/2024 5:01AM, LOCATION [facility] INDICATION: R91.1: Lung nodule ADDITIONAL CLINICAL INFORMATION: [...] wall. Report dictated by Kristel Muller MD (business services vice president). Teddy Posey MD have personally reviewed and interpreted this examination/study. > Interpreting Provider: Teddy Johnston MD on 07/19/2024 11:52 AM Connie Echols PHYSICIST [employer] DIRECTOR DIAGNOSTIC IMAGIN G ORDERABLES * PHOSPHORUS BLOOD (07/19/2024 1:49 AM CDT) Pathologist [facility] Phosphorus 4.9 2.8 - 5.1 mg/dL 07/19/2024 2:29 AM CDT [facility] Blood BLOOD SPECIMEN / Unknown Lab Venipuncture / Unknown 07/19/2024 1:49 AM CDT 07/19/2024 2:00 AM CDT Augustine Jimenez MD LAB - TIE INSPECTOR RY ORDERABLES Performing Organization Address City/[facility]/ZIP Co de Phone Number [address] [address], [facility] [phone] * MAGNESIUM BLOOD (07/19/2024 1:49 AM CDT) Pathologist [facility] Magnesium 2.1 1.6 - 2.6 mg/dL 07/19/2024 2:29 AM CDT [facility] Blood BLOOD SPECIMEN / Unknown Lab Venipuncture / Unknown 07/19/2024 1:49 AM CDT 07/19/2024 2:00 AM CDT Augustine Jimenez MD LAB - TIE INSPECTOR RY ORDERABLES [address] [address], [facility] [phone] * (ABNORMAL) BASIC METABOLIC PANEL (CALCIUM TOTAL) (07/19/2024 1:49 AM CDT) Pathologist [facility] BUN 34(H) 7 - 26 mg/dL 07/19/2024 2:30 AM CDT [facility] Creatinine 7.59(H) 0.71 - 1.16 mg/dL 07/19/2024 2:30 AM CDT [facility] Sodium 138 136 - 145 mmol/L 07/19/2024 2:30 AM CDT [facility] Potassium 3.8 3.5 - 4.5 mmol/L 07/19/2024 2:30 AM [facility] Chloride 101 98 - 107 mmol/L 07/19/2024 2:30 AM [facility] CO2 26 22 - 29 mmol/L 07/19/2024 2:30 AM [facility] Glucose 104(H) 70 - 99 mg/dL 07/19/2024 2:30 AM [facility] Calcium 8.4 8.4 - 10.2 mg/dL 07/19/2024 2:30 AM [facility] Anion Gap 11 6 - 16 07/19/2024 2:30 AM [facility] BUN/Creatinine Ratio 4(L) 7 - 23 07/19/2024 2:30 AM [facility] Osmolality Calculated 294 275 - 295 mOsm/kg 07/19/2024 2:30 AM [facility] eGFR by CKD-EPI 7(L) >=90 mL/min/1.7 3 m2 07/19/2024 2:30 AM [facility] Blood BLOOD SPECIMEN / Unknown Lab Venipuncture / Unknown 07/19/2024 1:49 AM CDT 07/19/2024 2:00 AM CDT Augustine Jimenez MD LAB - TIE INSPECTOR RY ORDERABLES [facility] [address] [place] [address], [facility] [phone] * (ABNORMAL) CBC W AUTO DIFFERENTIAL (07/19/2024 1:49 AM CDT) WBC 8.9 4.0 - 10.7 x10E9/L 07/19/2024 2:08 AM [facility] RBC Count 3.31(L) 4.30 - 5.80 x10E12/L 07/19/2024 2:08 AM [facility] Hemoglobin 10.7(L) 13.3 - 17.5 g/dL 07/19/2024 2:08 AM [facility] Hematocrit 32.2(L) 38.7 - 51.1 % 07/19/2024 2:08 AM [facility] MCV 97.3 80.0 - 98.0 fL 07/19/2024 2:08 AM [facility] MCH 32.3 26.7 - 33.6 pg 07/19/2024 2:08 AM [facility] MCHC 33.2 31.7 - 36.3 g/dL 07/19/2024 2:08 AM [facility] RDW-CV 14.1 11.3 - 14.8 % 07/19/2024 2:08 AM [facility] Platelet Count 189 150 - 420 x10E9/L 07/19/2024 2:08 AM [facility] MPV 9.5 7.8 - 11.4 fL 07/19/2024 2:08 AM [facility] Neutrophil % 70.8 41.0 - 74.0 % 07/19/2024 2:08 AM [facility] Lymphocyte % 17.2 17.0 - 47.0 % 07/19/2024 2:08 AM [facility] Monocyte % 8.2 3.0 - 11.0 % 07/19/2024 2:08 AM [facility] Eosinophil % 2.8 0.0 - 7.0 % 07/19/2024 2:08 AM [facility] Basophil % 0.7 0.0 - 1.6 % 07/19/2024 2:08 AM [facility] Immature Granulocytes % 0.3 0.0 - 1.0 % 07/19/2024 2:08 AM [facility] Neutrophil Absolute 6.27 1.60 - 7.50 x10E9/L 07/19/2024 2:08 AM [facility] Lymphocyte Absolute 1.53 1.00 - 4.40 x10E9/L 07/19/2024 2:08 AM [facility] Monocyte Absolute 0.73 0.15 - 1.00 x10E9/L 07/19/2024 2:08 AM [facility] Eosinophil Absolute 0.25 0.00 - 0.60 x10E9/L 07/19/2024 2:08 AM [facility] Basophil Absolute 0.06 0.00 - 0.13 x10E9/L 07/19/2024 2:08 AM CDT [facility] Blood BLOOD SPECIMEN / Unknown Lab Venipuncture / Unknown 07/19/2024 1:49 AM CDT 07/19/2024 2:00 AM CDT Augustine Jimenez MD LAB - HEMATOL OGY ORDERABLES Performing Organization Address City/[facility]/ZIP Co de Phone Number [facility] [address] [place] [address], [facility] [phone] * HEPATITIS B SURFACE ANTIBODY QUANT (07/18/2024 9:23 AM CDT) [facility] Hepatitis B Virus Surface Antibody 3.95 IU/L 07/20/2024 12:43 PM CDT [employer] ([facility]) Comment: The anti-HBs is less than 10 [...] Cellular [employer] Products (HCT/P). Performed By: [employer] [address] [place] [address] Bottom Cementer: Mahendra Duron MD, PhD CLIA Number: [id number] Blood BLOOD SPECIMEN / Unknown Lab Venipuncture / Unknown 07/18/2024 9:23 AM CDT 07/18/2024 9:49 AM CDT Bebo Mac MD LAB - SEROLOGY ORDER ELSIE Performing Organization Address [facility]/ZIP Co de Phone Number [employer] [facility]) [address] * HEPATITIS B SURFACE ANTIGEN W RFLX CONFIRMATION (07/18/2024 9:23 AM CDT) Hepatitis B Virus Surface Antigen Non-reacti ve Non-reacti ve 07/18/2024 10:40 AM CDT [facility] Blood BLOOD SPECIMEN / Unknown Lab Venipuncture / Unknown 07/18/2024 9:23 AM CDT 07/18/2024 9:49 AM CDT Bebo Mac MD LAB - CHEMISTRY NELDA TIPTON [facility] [address] [place] [address], [facility] [phone] * XR CHEST 1VW PORTABLE (07/18/2024 7:27 AM CDT) Anatomical Region Laterality Modality Chest Digital Radiogra phy 07/18/2024 10:3 3 AM CDT Narrative 07/18/2024 2:12 PM CDT PROCEDURE: ??XR CHEST 1VW PORTABLE, DATE/TIME OF EXAM: ??07/18/2024 7:27 AM, LOCATION ??[facility] INDICATION: C34.11: Malignant neoplasm of upper lobe [...] stable. > Dictated by Daquan Curtis MD (business services vice president). ITeddy MD have personally reviewed and interpreted this examination/study. > Interpreting Provider: Teddy Johnston MD on 07/18/2024 2:12 PM Procedure Note Teddy Johnston MD - 07/18/2024 PROCEDURE: XR CHEST 1VW PORTABLE, DATE/TIME OF EXAM: 07/18/2024 7:27AM, LOCATION [facility] INDICATION: C34.11: Malignant neoplasm of upper lobe [...] stable. > Dictated by Daquan Curtis MD (business services vice president). ITeddy MD have personally reviewed and interpreted [...] - 5.1 mg/dL 07/18/2024 2:28 AM CDT [facility] Blood BLOOD SPECIMEN / Unknown Lab Venipuncture / Unknown 07/18/2024 1:45 AM CDT 07/18/2024 2:02 AM CDT Augustine Jimenez MD LAB - TIE INSPECTOR RY ORDERABLES [address] [address], [facility] [phone] * MAGNESIUM BLOOD (07/18/2024 1:45 AM CDT) Magnesium 2.3 1.6 - 2.6 mg/dL 07/18/2024 2:28 AM [facility] Blood BLOOD SPECIMEN / Unknown Lab Venipuncture / Unknown 07/18/2024 1:45 AM CDT 07/18/2024 2:02 AM CDT Augustine Jimenez MD LAB - TIE INSPECTOR RY ORDERABLES [facility] [address] [place] [address], [facility] [phone] * (ABNORMAL) BASIC METABOLIC PANEL (CALCIUM TOTAL) (07/18/2024 1:45 AM CDT) BUN 82(H) 7 - 26 mg/dL 07/18/2024 2:28 AM [facility] Creatinine 12.10(H) 0.71 - 1.16 mg/dL 07/18/2024 2:28 AM [facility] Sodium 138 136 - 145 mmol/L 07/18/2024 2:28 AM [facility] Potassium 5.4(H) 3.5 - 4.5 mmol/L 07/18/2024 2:28 AM [facility] Chloride 112(H) 98 - 107 mmol/L 07/18/2024 2:28 AM [facility] CO2 13(L) 22 - 29 mmol/L 07/18/2024 2:28 AM [facility] Glucose 183(H) 70 - 99 mg/dL 07/18/2024 2:28 AM [facility] Calcium 8.5 8.4 - 10.2 mg/dL 07/18/2024 2:28 AM [facility] Anion Gap 13 6 - 16 07/18/2024 2:28 AM [facility] BUN/Creatinine Ratio 7 7 - 23 07/18/2024 2:28 AM [facility] Osmolality Calculated 315(H) 275 - 295 mOsm/kg 07/18/2024 2:28 AM [facility] eGFR by CKD-EPI 4(L) >=90 mL/min/1.7 3 m2 07/18/2024 2:28 AM [facility] Blood BLOOD SPECIMEN / Unknown Lab Venipuncture / Unknown 07/18/2024 1:45 AM CDT 07/18/2024 2:02 AM CDT Augustine Jimenez MD LAB - TIE INSPECTOR RY ORDERABLES Performing Organization Address City/State/[facility] Co de Phone Number [facility] [address] [place] [address], [facility] [phone] * (ABNORMAL) CBC W AUTO DIFFERENTIAL (07/18/2024 1:45 AM CDT) WBC 11.1(H) 4.0 - 10.7 x10E9/L 07/18/2024 2:11 AM T [facility] RBC Count 3.29(L) 4.30 - 5.80 x10E12/L 07/18/2024 2:11 AM [facility] Hemoglobin 10.5(L) 13.3 - 17.5 g/dL 07/18/2024 2:11 AM T [facility] Hematocrit 32.9(L) 38.7 - 51.1 % 07/18/2024 2:11 AM [facility] MCV 100.0(H) 80.0 - 98.0 fL 07/18/2024 2:11 AM [facility] MCH 31.9 26.7 - 33.6 pg 07/18/2024 2:11 AM [facility] MCHC 31.9 31.7 - 36.3 g/dL 07/18/2024 2:11 AM [facility] RDW-CV 13.9 11.3 - 14.8 % 07/18/2024 2:11 AM [facility] Platelet Count 211 150 - 420 x10E9/L 07/18/2024 2:11 AM [facility] MPV 9.5 7.8 - 11.4 fL 07/18/2024 2:11 AM [facility] Neutrophil % 86.2(H) 41.0 - 74.0 % 07/18/2024 2:11 AM [facility] Lymphocyte % 6.3(L) 17.0 - 47.0 % 07/18/2024 2:11 AM CDT [facility] Monocyte % 7.0 3.0 - 11.0 % 07/18/2024 2:11 AM [facility] Eosinophil % 0.0 0.0 - 7.0 % 07/18/2024 2:11 AM [facility] Basophil % 0.1 0.0 - 1.6 % 07/18/2024 2:11 AM T [facility] Immature Granulocytes % 0.4 0.0 - 1.0 % 07/18/2024 2:11 AM [facility] Neutrophil Absolute 9.60(H) 1.60 - 7.50 x10E9/L 07/18/2024 2:11 AM [facility] Lymphocyte Absolute 0.70(L) 1.00 - 4.40 x10E9/L 07/18/2024 2:11 AM [facility] Monocyte Absolute 0.78 0.15 - 1.00 x10E9/L 07/18/2024 2:11 AM [facility] Eosinophil Absolute 0.00 0.00 - 0.60 x10E9/L 07/18/2024 2:11 AM [facility] Basophil Absolute 0.01 0.00 - 0.13 x10E9/L 07/18/2024 2:11 AM [facility] Blood BLOOD SPECIMEN / Unknown Lab Venipuncture / Unknown 07/18/2024 1:45 AM CDT 07/18/2024 2:02 AM CDT Augustine Jimenez MD LAB - HEMATOL OGY ORDERABLES [facility] [address] [place] [phone], [facility] [phone] * XR Chest 1Vw Portable (07/17/2024 4:53 PM CDT) Anatomical Region Laterality Modality Chest Digital Radiogra phy 07/18/2024 7:57 AM CDT Narrative 07/18/2024 2:10 PM CDT PROCEDURE: ??XR CHEST 1VW PORTABLE, DATE/TIME OF EXAM: ??07/17/2024 4:53 PM, LOCATION ??[facility] INDICATION: R91.1: Lung nodule ADDITIONAL CLINICAL INFORMATION: [...] stable. > Dictated by Daquan Curtis MD (business services vice president). Teddy Posey MD have personally reviewed and interpreted this examination/study. > Interpreting Provider: Teddy Johnston MD on 07/18/2024 2:10 PM Procedure Note Teddy Johnston MD - 07/18/2024 PROCEDURE: XR CHEST 1VW PORTABLE, DATE/TIME OF EXAM: 07/17/2024 4:53PM, LOCATION [facility] INDICATION: R91.1: Lung nodule ADDITIONAL CLINICAL INFORMATION: [...] stable. > Dictated by Daquan Curtis MD (business services vice president). Teddy Posey MD have personally reviewed and interpreted this examination/study. > Interpreting Provider: Teddy Johnston MD on 07/18/2024 2:10 PM Augustine Jimenez MD DIAGNOSTIC IM AGING ORDERABLES * PATHOLOGY TISSUE (07/17/2024 3:48 PM CDT) Case Report Surgical Pathology Report ? Case: [id number] ? Authorizing Provider: ??Augustine Jimenez, ??Collected: ? [...] 10 lymph node. ? 4 8:33 PM [facility] Final Diagnosis Lung, left [...] negative for carcinoma (0/2) 4 8:33 PM [facility] Preliminary result electronically signed by Rene Chavis MD on 07/21/2024 at 5:00 PM Microscopic Description and Comment Additional immunostains for TTF-1 on blocks A2 and A3 were performed, and both stains are positive in malignant cells. 4 8:33 PM [facility] Clinical History The patient is a 64 year-old male with adenocarcinoma of the left upper lobe. 8:33 PM [facility] Intraoperative Consultation A) Left upper lobe wedge -piece of lung tissue 10 x 8 x 4 cm, stapled along edges, area of pleural puckering 2.5 x 2.0 cm corresponding to subpleural firm white tumor 3.0 x 1.8 x 1.1 cm. Margins grossly clear. Reduction Furnace Operator section of tumor frozen (FSA1). Intraoperative diagnosis: [...] Dr. Satish Riggs MD 4 8:33 PM [facility] Gross Description The requisition [...] respectively submitted in cassette A1 and additional sales representative groceries sections are submitted as follows: A2, mass [...] is submitted in toto as cassette F1. REMY 4 8:33 PM [facility] Pathologist Location at [facility] 4 8:33 PM [facility] Disclaimer The performance characteristics of all immunohistochemical and indirect immunofluorescence stains (if any) cited in this report were determined by the Histopathology Laboratory of [facility]. Some of these tests were developed [...] the attending (teaching) pathologist. 4 8:33 PM [facility] Synoptic Report LUNG LUNG [...] ?? Additional Findings: ?Emphysema 4 8:33 PM [facility] Embedded Images 4 8:33 PM [facility] Biopsy, Excision RESECTED LUNG [...] Jimenez MD LAB - PATHOLO GY/CYTOLOGY ORDERABLES [facility] [address] [place], [place] [id number] [place] [address] * (ABNORMAL) CBC W/O DIFFERENTIAL (07/17/2024 10:41 AM CDT) WBC 9.1 4.0 - 10.7 x10E9/L 07/17/2024 11:03 AM [facility] RBC Count 3.71(L) 4.30 - 5.80 x10E12/L 07/17/2024 11:03 AM [facility] Hemoglobin 12.0(L) 13.3 - 17.5 g/dL 07/17/2024 11:03 AM [facility] Hematocrit 37.3(L) 38.7 - 51.1 % 07/17/2024 11:03 AM [facility] MCV 100.5(H) 80.0 - 98.0 fL 07/17/2024 11:03 AM [facility] MCH 32.3 26.7 - 33.6 pg 07/17/2024 11:03 AM [facility] MCHC 32.2 31.7 - 36.3 g/dL 07/17/2024 11:03 AM [facility] RDW-CV 14.0 11.3 - 14.8 % 07/17/2024 11:03 AM [facility] Platelet Count 240 150 - 420 x10E9/L 07/17/2024 11:03 AM [facility] MPV 9.6 7.8 - 11.4 fL 07/17/2024 11:03 AM [facility] Blood BLOOD SPECIMEN / Unknown Venipuncture / Unknown 07/17/2024 10:41 AM CDT 07/17/2024 10:53 AM T Augustine Jimenez MD LAB - HEMATOL OGY ORDERABLES [facility] [address] [place] [address], [facility] [phone] * PHOSPHORUS BLOOD (07/17/2024 10:41 AM CDT) Phosphorus 4.7 2.8 - 5.1 mg/dL 07/17/2024 11:21 AM CDT [facility] Blood BLOOD SPECIMEN / Unknown Venipuncture / Unknown 07/17/2024 10:41 AM CDT 07/17/2024 10:53 AM CDT Augustine Jimenez MD LAB - TIE INSPECTOR RY ORDERABLES [address] [address], [facility] [phone] * MAGNESIUM BLOOD (07/17/2024 10:41 AM CDT) Magnesium 2.4 1.6 - 2.6 mg/dL 07/17/2024 11:21 AM CDT [facility] Blood BLOOD SPECIMEN / Unknown Venipuncture / Unknown 07/17/2024 10:41 AM CDT 07/17/2024 10:53 AM CDT uAgustine Jimenez MD LAB - TIE INSPECTOR RY ORDERABLES [address] [address], [facility] [phone] * (ABNORMAL) BASIC METABOLIC PANEL (CALCIUM TOTAL) (07/17/2024 10:41 AM CDT) BUN 73(H) 7 - 26 mg/dL 07/17/2024 11:21 AM CDT [facility] Creatinine 11.41(H) 0.71 - 1.16 mg/dL 07/17/2024 11:21 AM CDT [facility] Sodium 140 136 - 145 mmol/L 07/17/2024 11:21 AM CDT [facility] Potassium 5.0(H) 3.5 - 4.5 mmol/L 07/17/2024 11:21 AM CDT [facility] Chloride 114(H) 98 - 107 mmol/L 07/17/2024 11:21 AM T [facility] CO2 14(L) 22 - 29 mmol/L 07/17/2024 11:21 AM [facility] Glucose 90 70 - 99 mg/dL 07/17/2024 11:21 AM [facility] Calcium 9.0 8.4 - 10.2 mg/dL 07/17/2024 11:21 AM [facility] Anion Gap 12 6 - 16 07/17/2024 11:21 AM T [facility] BUN/Creatinine Ratio 6(L) 7 - 23 07/17/2024 11:21 AM [facility] Osmolality Calculated 311(H) 275 - 295 mOsm/kg 07/17/2024 11:21 AM [facility] eGFR by CKD-EPI 4(L) >=90 mL/min/1.7 3 m2 07/17/2024 11:21 AM [facility] Blood BLOOD SPECIMEN / Unknown Venipuncture / Unknown 07/17/2024 10:41 AM CDT 07/17/2024 10:53 AM CDT Augustine Jimenez MD LAB - TIE INSPECTOR RY ORDERABLES Performing Organization Address City/[facility]/ZIP Co de Phone Number [address] [address], [facility] [phone] * TYPE + SCREEN PANEL (07/17/2024 10:41 AM CDT) Antibody Screen NEG 11:28 AM CDT [facility] ABO Rh O POS 07/17/2024 11:28 AM CDT [facility] Blood Bank BLOOD SPECIMEN / Unknown Venipuncture / Unknown 07/17/2024 10:41 AM CDT 07/17/2024 10:46 AM CDT Augustine Jimenez MD LAB - BLOOD B ANK ORDERABLES [facility] [address] [place] [phone] [phone] documented in this encounter Visit Diagnoses Diagnosis Lung nodule- Primary Solitary pulmonary nodule Basal cell carcinoma (BCC) of left nasal sidewall Pre-op testing Preoperative examination, unspecified Malignant neoplasm of upper lobe of right lung (HCC) Malignant neoplasm of upper lobe, bronchus or lung Malignant neoplasm of upper lobe of left lung (HCC) documented in this encounter Admitting Diagnoses Diagnosis [...] 1215, For wheezing. Notify anesthesia immediately., PACU BUPivacaine PF (Marcaine PF) 0.5 % injection PRN, Starting on Tue07/17/24 at 1534, Until Tue07/17/24 at 1646, Intra-op $ Given 07/17/2024 3:34 PM CDT 10 mL Operative Site diphenhydrAMINE (Benadryl) injection 25 mg 25 mg, [...] than 180, DBP greater than 100., PACU methocarbamol (Robaxin) tablet 750 mg 750 mg, Oral, EVERY 6 HOURS PRN, Muscle Spasms, Starting on Tue07/17/24 at 1851, Until 07/21/24 at 1215, Post-op mineral oil light (Muri-Lube) oil PRN, Starting on Tue07/17/24 at 1535, Until Tue07/17/24 at 1646, Intra-op $ Given 07/17/2024 3:35 PM CDT 10 mL Operative Site naloxone (Narcan) injection 0.04 mg 0.04 mg, [...] at 1820, Until 07/21/24 at 1215, PACU tranexamic acid (Cyklokapron) 1,000 mg in 0.9% NaCl IV 100 mL irrigation PRN, Starting on Tue07/17/24 at 1550, Until Tue07/17/24 at 1646, Intra-op $ Given 07/17/2024 3:50 PM CDT 1,000 mg Operative Site white petroleum (Vaseline) gel Topical, 3 TIMES [...] RN) 0148 ($ Given - Provider: Anastasiia Dai, KOKI)0538 ($ Given - Provider: Anastasiia Dai RN) albuterol-ipratropium (Duo-Neb) nebulizer solution 3 mL 3 mL, Inhalation, POST-OP MULTIPLE, Starting on Tue07/20/24 at 1820, Until Tue07/21/24 at 1215, For wheezing. Notify anesthesia immediately., [...] Refused-Patient)2050 ($ Given - Provider: Mariposa Caceres) 08 ($ Given - Provider: Dianelys Cowart RN)1338 ($ Given - Provider: Dianelys Cowart, KOKI)2000 [...] 0852 ($ Given - Provider: Dianelys Cowart RN)2000 ($ Given - Provider: Anastasiia Dai, KOKI) 0841 ($ Given - Provider: Soheila Santos RN) HYDROmorphone (Dilaudid) injection 0.5 mg (COMPLETED) 0.5 [...] RN) 0851 (Not Administered - Provider: Dianelys Cowatr RN - Reason: NPO)1157 (Not Administered - Provider: Dianelys Cowart RN - Reason: NPO)1848 ($ Given - Provider: Dianelys Cowart RN) 0841 ($ Given - Provider: Soheila Santos RN) tamsulosin (Flomax) capsule 0.4 mg 0.4 mg, Oral, DAILY, First dose on Tue07/17/24 at 1715, Until Discontinued, At the same time every day after a meal. Do not crush or chew. May open capsule and administer contents per tube. J-tube administration is not appropriate as the small lumen would necessitate crushing of granules. 0845 ($ Given - Provider: Santiago Hanks RN) 0852 ($ Given - Provider: Dianelys Cowart RN) 0841 ($ Given - Provider: Soheila Santos RN) white petroleum (Vaseline) gel Topical, 3 [...] Hanks RN)1736 (See Alternative - Provider: Santiago Hanks RN) ondansetron (Zofran) injection 4 mg 4 mg, [...] intake, Post-op 0846 ($ Given - Provider: Santiago Hanks RN) oxyCODONE (immediate release) (Roxicodone) tablet [...] Post-op documented in this encounter Care Teams District Administrator Relationship Specialty Start Date End Date None, Physician [address] [place] [address] PCP - General 04/10/24 documented as of this encounter
--- OUTSIDE RECORDS SUMMARY | 2024-09-24 06:04 | XMS_ITS | Encounter Summary ---
Author Organization [facility] Address [address] [facility] [place] [address] Care Team Providers Care Combat Systems Engineer Name Role Phone None, Physician Primary Care Provider Unavailabl e Reason for Visit * Reason Onset Date Comments Future Appointment 05/29/2024 1st attempt Encounter Details Date Type Department Care Team (Late st Contact Info) Description 05/29/2024 Telephone [facility] - ENT [address] [place] [address] Ritesh Mensah MD [address] [facility] 2L DEPT [place] [address] Future Appointment (1st attempt) Social History Tobacco Use Types Packs/Day Years [...] and heating? Not hard at all 05/23/2024 [facility] [place] of Occupat ional Health - Occupational Stress [...] * Telephone Encounter - Ari Yu - 05/29/2024 2:30 PM CDT Called patient to schedule a 2 week follow up visit with Dr. Mensah after 05/23 surgery. No answer, LVMrequestion a call back. documented in this encounter Plan of Treatment Upcoming Encounters Date Type Department Care Team (Late st Contact Info) Description 10/16/2024 1:30 PM HEAD ORTHOPEDIC TEAM PHYSICIAN Office Visit [facility] - ENT [address] [place] [address], [place] [address] Ritesh Mensah MD [address] [place] [address] DEPT [place] [address] documented as of this encounter Visit Diagnoses Not on filedocumented in this encounter Care Teams Combat Systems Engineer Relationship Specialty Start Date End Date None, Physician [address] [place] [address] PCP - General 04/10/24 documented as of this encounter
--- OUTSIDE RECORDS SUMMARY | 2024-09-24 06:04 | XMS_ITS | Encounter Summary ---
Author Organization [facility] Address [address] [facility] [place] [address] Care Team Providers Care 411 Directory Assistance Operator Name Role Phone None, Physician Primary Care Provider Unavailabl e Reason for Referral * Procedure (Routine) - Closed Specialty Diagnoses / Procedures Referred By Contac t Referred To Contact Pulmonary Disease Diagnoses Malignant neoplasm of upper lobe of right lung (HCC) Procedures SIX MINUTE WALK Ben Mccormack MD [facility] [facility] 2L DIV OF PULMONARY/[place] [address] [facility] [address] [place] [address] Referral ID Status Reason Start Date Expiration Date Visits Re quested Visits Authorized [id number] Closed 05/28/2024 05/28/2025 1 1 * Procedure (Routine) - Open Specialty Diagnoses / Procedures Referred By Contac t Referred To Contact Diagnoses Malignant neoplasm of upper lobe of right lung (HCC) Procedures COMPLETE PFT Ben Mccormack MD [address] [facility] 2L DIV OF PULMONARY/[place] [address] Referral ID Status Reason Start Date Expiration Date Visits Re quested Visits Authorized [id number] Open 05/28/2024 05/28/2025 1 1 * Consultation (Routine) - Open Specialty Diagnoses / Procedures Referred By Contac t Referred To Contact Diagnoses Malignant neoplasm of upper lobe of right lung (HCC) Ben Mccormack MD [address] [facility] 2L DIV OF PULMONARY/[place] [address] Referral ID Status Reason Start Date Expiration Date V isits Requested Visits Authorized [id number] Open Specialty Services Required 05/28/2024 05/28/2025 1 1 Encounter Details Date Type Department Care Team (Late st Contact Info) Description 05/28/2024 Orders Only [facility] [address] [place] [phone] Ben Mccormack MD [address] [facility] 2L DIV OF PULMONARY/[place] [address] Malignant neoplasm of upper lobe of right lung (HCC) Social History Tobacco Use Types [...] and heating? Not hard at all 05/23/2024 [facility] [place] [facility] - Occupational Stress [...] place to sleep or slept in a nursing home (including now)? No 05/23/2024 Sex and Gender [...] st Contact Info) Description 10/16/2024 1:30 PM PERSONAL INJURY LAW SPECIALIST Office Visit [facility] - ENT [address] [place] [phone] Ritesh Mensah MD [address] [place] [address] [place] [address] Scheduled Orders Name Type Priority Associated Diagnoses Orde r Schedule COMPLETE PFT Respiratory Care Routine Malignant neoplasm of upper lobe of right lung (HCC) 1 Occurrences starting 05/28/2024 until 05/28/2025 Scheduled Referrals Name Type Priority Associated Diagnoses Order Schedule Referral to Cardiovascular Surgery Outpatient Referral Routine Malignant neoplasm of upper lobe of right lung (HCC) 1 Occurrences starting 05/28/2024 until 05/28/2025 documented as of this encounter Results * SIX MINUTE WALK (07/25/2024 11:59 AM PERSONAL INJURY LAW SPECIALIST) Impressions Satish Mcginnis MD - 07/25/2024 11:59 AM PERSONAL INJURY LAW SPECIALIST [facility] DEPARTMENT OF PULMONARY, CRITICAL CARE, [...] of Pulmonary, Critical Care, and Sleep Medicine [facility] I have reviewed this study and agree with the interpretation by the Group Work Program Director. Satish Mcginnis M.D. Manager Plumbing of Internal Medicine Division of Pulmonary, Critical Care and Sleep Medicine [facility] Narrative Satish Mcginnis MD - 07/25/2024 11:59 AM PERSONAL INJURY LAW SPECIALIST Hank Herndon MD ? 07/26/2024 ??5:36 AM Ben Mccormack MD RESPIRATORY THERAPY ORDERABLES documented in this encounter Visit Diagnoses Diagnosis Malignant neoplasm of upper lobe of right lung (HCC)- Primary Malignant neoplasm of upper lobe, bronchus or lung Malignant neoplasm of upper lobe of right lung (HCC) Malignant neoplasm of upper lobe, bronchus or lung documented in this encounter Care Teams 411 Directory Assistance Operator Relationship Specialty Start Date End Date None, Physician [address] [place] [address] PCP - General 04/10/24 documented as of this encounter
--- OUTSIDE RECORDS SUMMARY | 2024-09-24 06:04 | XMS_ITS | Encounter Summary ---
Author Organization [facility] Address [address] [facility] [place] [address] Care Team Providers Care Remediation Technician Name Role Phone None, Physician Primary Care Provider Unavailabl e Reason for Visit * Reason Comments Establish Care Consult:lung cancer- Ref by Dr. Mccormack records in [facility] * Consultation (Routine) - Open Specialty Diagnoses / Procedures Referred By Contac t Referred To Contact Diagnoses Malignant neoplasm of upper lobe of right lung (HCC) Ben Mccormack MD [address] [place] [address] 2L DIV OF PULMONARY/[place] [address] Referral ID Status Reason Start Date Expiration Date V isits Requested Visits Authorized [id number] Open Specialty Services Required 05/28/2024 05/28/2025 1 1 Encounter Details Date Type Department Care Team (Late st Contact Info) Description 06/18/2024 2:00 PM CDT Office Visit [facility] - Cardiothoracic Surgery [address] [place] [address], [place] [phone] Augustine Jimenez MD [address] [facility] [address] [place] [address] Malignant neoplasm of upper lobe of right lung (HCC) (Primary Dx) Social History Tobacco Use Types Packs/Day Years Used Date Smoking Tobacco: Every Day Cigarettes Smokeless Tobacco: Never Tobacco Cessation:Ready to Q uit: Not Asked; Counseling Given: Not Answered Alcohol Use Standard Drinks/Week Comments Not Currently [...] and heating? Not hard at all 05/23/2024 [facility] [place] of Occupat ional Health - Occupational Stress [...] place to sleep or slept in a alf (including now)? No 05/23/2024 Sex and Gender Information Value Date Recorded Sex Assigned at Not on file Gender Identity Not on file Sexual Orientation Not on file documented as of this encounter Last Filed Vital Signs Vital Sign Reading Time Taken Comments Blood Pressure 111/71 06/18/2024 2:02 PM CDT Pulse 92 06/18/2024 2:02 PM CDT Temperature 36.3 ??C (97.4 ??F) 06/18/2024 2:02 PM CD T Respiratory Rate - - Oxygen Saturation 95% 06/18/2024 2:02 PM CDT Inhaled Oxygen Concentration - - Weight 93.4 kg (206 lb) 06/18/2024 2:02 PM CDT Height 172.7 cm (5' 8 ) 06/18/2024 2:02 PM CDT Body Mass Index 31.32 06/18/2024 2:02 PM CDT documented in this encounter Functional Status [...] No 05/23/2024 documented as of this encounter Patient Instructions * Patient Instructions* Molly Cowart MA - 06/18/2024 2:27 PM CDT TO DO: we call to move up PFT testing, will call with new date and time If you have any questions, please contact the office at [phone]. HAVE A GREAT DAY AND THANK YOU FOR CHOOSING [facility]! THANKS documented in this encounter Progress Notes * Augustine Jimenez MD - 06/18/2024 7:41 PM CDT This is a 64-year-old man with skin [...] Patient's lung function studies are scheduled for 102. I think it is important that we move this study up so as to not further delay his care. I will coordinate an operation with Dr. Mensah. I spoke with Makenna and he tell s me that his follow-up operation will only entail 15 to 30 minutes of surgery. The patient has significant social issues includingliving in a half-way. He informs me that his daughter who lives in [place] will be his power of hand polisher. The patient has multiple medical issues including need for dialysis and nephrostomy tubes in place. Patient was previously homeless. Patient continues to smoke and declines any intervent ion to help him quit. We will coordinate care and try and get this done in the next 1 to 2 weeks. * Augustine Jimenez MD - 06/18/2024 2:10 PM CDT Images from the original note were not included. Thoracic Surgery Clinic Consult Patient Name: Andrey [...] day for approximately 50 years. Past Medical History: Diagnosis Date Basal cell [...] PROCEDURE/SURGERY 04/12/2024 CREATION ARTERIOVENOUS FISTULA Social History Tobacco Use Smoking status: Every Day Packs/day: .5 Types: Cigarettes Smokeless tobacco: Never Vaping Use Vaping Use: Never used Substance Use Topics Alcohol use: Not Currently Drug use: Never No Known Allergies No family history on file. Medications: acetaminophen [...] for as mentioned in HPI. PHYSICAL EXAM Vitals: 06/18/24 1402 BP: 111/71 Pulse: 92 [...] , PTT , INR in the last 15631 hours. Imaging & Procedures: PET CT 05/07/24 [...] Dr. Jimenez. Crystal Snow, MS4 Medical Student [employer] Attending Note Pt [...] Patient's lung function studies are scheduled for 1024. I think it is important that we move this study up so as to not further delay his care. I will coordinate an operation with Dr. Mensah. I spoke with Makenna and he tell s me that his follow-up operation will only entail 15 to 30 minutes of surgery. The patient has significant social issues includingliving in a half-way. He informs me that his daughter who lives in [place] will be his power of hand polisher. The patient has multiple medical issues including need for dialysis and nephrostomy tubes in place. Patient was previously homeless. Patient continues to smoke and declines any intervent ion to help him quit. We will coordinate care and try and get this done in the next 1 to 2 weeks. documented in this encounter Plan of Treatment Upcoming Encounters Date Type Department Care Team (Late st Contact Info) Description 10/16/2024 1:30 PM INFORMATION SYSTEMS TECHNICIAN Office Visit [facility] - ENT [address] [place] [phone] Ritesh Mensah MD [address] [place] [address] DEPT [place] [address] documented as of this encounter Visit Diagnoses Diagnosis Malignant neoplasm of upper lobe of right lung (HCC)- Primary Malignant neoplasm of upper lobe, bronchus or lung documented in this encounter Care Teams Remediation Technician Relationship Specialty Start Date End Date None, Physician [address] [place] [address] PCP - General 04/10/24 documented as of this encounter
--- OUTSIDE RECORDS SUMMARY | 2024-09-24 06:04 | XMS_ITS | Encounter Summary ---
Author Organization [facility] Address [address] [place] [address] Care Team Providers Care Strike On Machine Operator Name Role Phone None, Physician Primary Care Provider Unavailabl e Reason for Visit * Reason Onset Date Comments Appointment 06/22/2024 SURGERGY Encounter Details Date Type Department Care Team (Late st Contact Info) Description 06/22/2024 Telephone [facility] - Cardiothoracic Surgery [address] [facility] [place] [id number] Augustine Jimenez MD [address] [facility] [address] [place] [address] Appointment (SURGERGY) Social History Tobacco Use Types Packs/Day Years [...] and heating? Not hard at all 05/23/2024 [facility] of Occupat ional Health - Occupational Stress [...] place to sleep or slept in a snf (including now)? No 05/23/2024 Sex and Gender [...] encounter Miscellaneous Notes * Telephone Encounter - Molly Cowart MA - 06/22/2024 2:20 PM CDT [facility]. Sent surgery info to email : [email or web address] OR INSTRUCTIONS *PLEASE READ THIS ENTIRE SHEET OF INSTRUCTIONS* Augustine Jimenez M.D. Thoracic Surgeon Clinic address: [facility], [address] [address], underneath the surgery sign [facility] OFFICE:[phone], FAX: [phone] SURGERY DATE AND TIME *PLEASE NOTE THAT SURGERY TIMES OFTEN CHANGE DUE TO EMERGENT CASES BEING ADDED, THE OR WILL CALL YOU THE DAY BEFORE SURGERY WITH A TIME TO ARRIVE, PLEASE ARRIVE AT THE TIME THEY PROVIDE YOU* ANDREY GIRON HAS BEEN SCHEDULED FOR VATS LEFT UPPER LOBE LINGULAR SEGMENTECTOMY SURGERY AT [address] ON: 07/03/24 YOU WILL NEED TO ARRIVE AT THE [facility] (1ST FLOOR) AT PARK IN THE PARKING GARAGE AND TAKE THE ORANGE ELEVATORS TO THE 1ST FLOOR 9:35 AM YOUR SURGICAL PROCEDURE WILL BEGIN AT APPROXIMATELY 11:35 AM IF YOU ARE TAKING ANY OF THE FOLLOWING SUPPLEMENTS PLEASE STOP TAKING THEM 1 WEEK PRIOR TO SURGERY: -Fish oil -Vitamin E -Tumeric -Obi bishop -Dong quai root -Echinacea -Ephedra -Feverfew -Garlic capsules -Helen capsules -Gingko biloba -Cheung seal -Kava -Senna -Audie's wort -Valerian PREADMISSION TESTING WE NEED THE PRISON TO DRAW LABS A NURSE FROM OUR PREADMISSION TESTING DEPARTMENT WILL CALL YOU AND SCHEDULE AN APPOINTMENT FOR YOU TO BE SEEN BY AN ANESTHESIOLOGIST. DURING THIS APPOINTMENT THE ANESTHESIOLOGIST WILL REVIEW YOUR HEALTH HISTORY TO ENSURE IT IS SAFE FOR YOU TO HAVE SURGERY. BASED OFF OF THEIR REVIEW THEY MAY ORDER LABS TO BE DRAWN, AN EKG, OR A URINE SAMPLE. YOUR HOME MEDICATIONS WILL BE REVIEWED WELL, BRING A LIST IF YOU HAVE TROUBLE REMEMBERING THEM. THE OR WILL CALL YOU THE DAY BEFORE SURGERY TO CONFIRM TIME OF SURGERY AND ARRIVAL TIME AGAIN, PLEASE USE THESE TIMES EVEN IF IT CONTRADICTS WHAT YOU WERE ORIGINALLY GIVEN IN CLINIC WHEN YOUR SURGERYWAS BOOKED PREPARATION FOR YOUR SURGERY DO NOT DRIVE YOURSELF TO THE PROCEDURE! HAVE A RIDE ARRANGED. YOU MAY NOT TAKE ANY FORM OF PUBLIC TRANSPORTATION (UBER, LYFT, TAXI) AFTER AN OUTPATIENT SURGERY THE HOSPITAL DOORS DO NOT OPEN UNTIL 5:30 AM PLEASE DO NOT ARRIVE BEFORE THIS TIME NOTHING TO EAT OR DRINK (INCLUDING WATER) AFTER MIDNIGHT THE NIGHT BEFORE. (NO GUM, MINTS OR CIGARETTES) IF YOU USE AN INHALER, CPAP OR HOME OXYGEN PLEASE BRING IT WITH YOU ON THE DAY OF SURGERY A NURSE THAT WORKS IN THE OPERATING ROOM AND WITH THE ANESTHESIOLOGIST WILL CONTACT YOU APPROXIMATELY 1 DAY PRIOR TO SURGERY TO REVIEW YOUR MEDICATIONS AGAIN AND CONFIRM TIME OF SURGERY AND ARRIVAL TIME DO NOT WEAR NAIL CHILEAN, BODY PIERCING'S, OR CONTACT LENSES PLEASE LEAVE ANY VALUABLES, JEWELRY, WATCHES, ETC. AT HOME. YOU CAN NOT WEAR THEM IN THE OPERATING ROOM AND WE DO NOT WANT TO RISK LOSING THEM! DO NOT USE ANY RECREATIONAL DRUGS 72 HOURS PRIOR TO SURGERY CHILDREN UNDER THE AGE OF 14 ARE NOT ALLOWED IN THE PRE/POST AREA AND CANNOT BE LEFT UNATTENDED WE ALSO RECOMMEND YOU SHOWER WITH AN ANTIBACTERIAL SOAP SUCH DIAL OR HIBICLENS (BOTH FOUND AT [facility] OR [facility]) THE DAY OF YOUR SURGERY TO CUT DOWN ON ANY BACTERIA ON YOUR SKIN. SOAP WILL BE PROVIDED TO YOU DURING YOUR PREADMISSION TESTING APPOINTMENT BUT IF AN APPOINTMENT WAS NOT NEEDED PLEASE OBTAIN ONE OF THE SOAPS MENTIONED ABOVE. FMLA OR WORK LEAVE If your employer requires FMLA (Family Medical Leave Act) paperwork completed for your time off work, you may fax or email the forms. Please make sure you complete your portion of the paperwork. FMLAforms require we list the exact days you are in the hospital, so the official paper work cannot be completed until you are released. On the paperwork they will designate a deadline for completion, which we will meet. Please note that two weeks off of work is typically what we recommend unless otherwise specified by our office. Fax all FMLA forms to [phone]. Please contact Molly ([phone]) our field foreman for any concerns regarding your paperwork. QUESTIONS OR POST OPERATIVE CONCERNS/COMPLICATIONS PLEASE CALL: Rowena Sanchez: Clinical RN: [phone] Hours: 8 AM-4 PM Tuesday-Tuesday Molly Cowart: cna ltc: [phone] Hours: 8 AM-4 PM Tuesday-Tuesday Office: [phone] option # 1 Thoracic Surgery Hours: 8 AM-4 PM Tuesday-Tuesday THIS NUMBER CAN BE USED AFTER OFFICE HOURS AND ON WEEKENDS WELL TO REACH OUR EXCHANGE FOR URGENTPOST OPERATIVE COMPLICATIONS, IF YOU BELIEVE YOU ARE HAVING A MEDICAL EMERGENCY PLEASE REPORT TO ANER OR DIAL 911 POST-OPERATIVE INSTRUCTIONS As part of our mission to provide exceptional care to you, it is very important to follow up in theoffice after your surgery. Your postop visit is scheduled on: 07/16/24 @ 1:00 PM [address] [facility], [address] [address], underneath the surgery sign with Please review the following instructions for your post operation recovery period (generally two weeks) PAIN MEDICATIONS Pain medication does not agree with everyone. Do not take pain medication on an empty stomach and NEVER take more than the recommended dose. Pain medications cause constipation, please see constipation section for treatment suggestions. If you choose not to use pain medications, you can try Advil, Tylenol or Ibuprofen. We recommend alternating with Tylenol and Ibuprofen every 4 hours on a schedule and using your narcotic pain medication for break through pain. Staying on schedule will prevent breakthrough pain and it helps with inflammation. Taking your narcotic pain medication at nighttime is also recommended soyou sleep comfortably. This plan of pain management is designed to get you weaned off of your narcotics and prevent you from being sedentary; the amount of narcotics scripted to you is based off of this philosophy. You may use ice packs around any site that is painful or swollen, but DO NOT put the ice pack directly over an incision for any reason. 20 minutes of ice followed by 20 minutes of no ice is the most effective method (the idea is to alternate to keep the effectiveness). CONSTIPATION Constipation is common after surgery. Pain medication can contribute to this. If you do not have a bowel movement by post op day 2, begin taking 2 tablespoons Milk of Magnesia every 6 hours. You may take this for up to 24 hours. Miralax once a day, as directed on the bottle, until you have a bowel movement is also acceptable instead of Milk Magnesia. If you take either of these medications and itdoes not work within 48 hours (about 2 days), call our office for further instructions. Additionally, you should take over the counter stool softener as directed on the box while you are taking narcotic pain medication. After you have a bowel movement you may back off of these medications and focuson walking and fluid intake for regular bowel movements. Overuse of stool softeners and laxatives can cause diarrhea. SHOWERING Please shower every day and let soap and water run over your incisions and pat dry. 48 hours after your chest tube was removed you may shower letting the soap and water run over the site and pat dry (disregard if you did not have a chest tube). If the chest tube incision leaks you may redress it with gauze and tape. IF YOU WERE GIVEN SPECIFIC INSTRUCTIONS ABOUT SHOWERING UPON LEAVING THE HOSPITALPLEASE DISREGARD THE PREVIOUS INSTRUCTIONS AND FOLLOW WHAT YOU WERE TOLD. INCISION CARE Generally, dressings can be removed when you get home. If you had a chest tube, this dressing should stay on for 48 hours after the tube is removed. Keep incisions clean and dry. It is normal to havea small amount of clear drainage. If they are draining, keep the incisions covered until drainage stops. If glue was used on your incisions, do not peel it off. It will fall off on its own or the doctor will remove it at the post op visit. Signs your incision may be infected: red appearance, hot, swollen, pus is coming out of it, you have a fever IF ANY OR A COMBINATION OF THESE SYMPTOMS OCCUR PLEASE CALL US. DIET Eat a light diet the first day home. (i.e. soup, jello, toast). If you experience nausea/vomiting stay on fluids low in acid (water, sports drinks, and clear sodas). If no nausea/vomiting return to normal diet. It is important to try and eat 3 times a day, your body needs protein to help your incisions heal. Mixing an ensure with ice cream to make a shake is a good way to get in protein and calories if you do not have much of an appetite (not having an appetite is normal after undergoing anesthetics and it will pass). If you had a hiatal hernia repair please follow the diet guidelines you were given upon discharge from the hospital. ACTIVITY You should not return to normal activities, including work until released by the doctor. We would like you to walk at least three times a day, the goal is for you gradually work up to your baseline. The walks can be short the and within your home (outside walks are fine as well as long as it is nottoo hot), the idea is to prevent you from being sedentary to avoid pneumonia or other complications. Do not push yourself too hard with walking if you are tired or short of breath stop and rest. If you were told you have lifting restrictions please follow those instructions to prevent complications. DRIVING You may drive if your are NOT taking narcotics anymore, but be careful and understand that it may be uncomfortable. ALCOHOL AND TOBACCO Please avoid tobacco and alcohol during your recovery period. LUNG SURGERY PATIENTS ONLY Please use your incentive spirometer or aerobika device to practice deep breathing. This will help your lungs recover and prevent pneumonia. It can be uncomfortable and make you cough, but it is one of the best tools to use to help your lung recover. The goal is to deep breath and get your lungs expanding. It is normal for it to hurt to cough and deep breath within the first week, by the second week you should see improvement. It is normal to cough up old blood as well. It is abnormal if you cough up bright red laurie blood, if this is the case call 911 or report to an ER immediately. If you experience shortness of breath and or swelling in your arm, neck, face, or chest area (if the swelling pops like rice crispies when you touch it this could be air trapped under your skin) please call Rowena RN immediately or report to an ER or call 911. CALL US IMMEDIATELY IF YOU: ARE SHORT OF BREATH AT REST (IF THIS IS AN EMERGENCY REPORT TO AN ER OR DIAL 911) ARE UNABLE TO URINATE HAVE A FEVER OVER 100.4 F INCISIONS ARE RED AND WARM TO THE TOUCH HAVE CONTINUOUS VOMITING SEVERE ABDOMINAL PAIN EXPERIENCE SWELLING IN ARMS OR LEGS ALWAYS IF YOU ARE UNSURE CALL ROWENA RN: [phone] OR THE EXCHANGE: [phone] Option 1 Thoracic Surgery FOR AFTER OFFICE HOURS AND WEEKENDS Office Hours: 8 AM - 4 PM Tuesday-Tuesday Warmest regards, Rowena Clinical RN [phone] Molly Rn Wound, RL [phone] Dr. Augustine Jimenez MD Thoracic Surgeon documented in this encounter Plan of Treatment Upcoming Encounters Date Type Department Care Team (Late st Contact Info) Description 10/16/2024 1:30 PM LONG WALL SHEAR OPERATOR Office Visit [facility] - ENT [address] [place] [address], [place] [address] Ritesh Mensah MD [address] [place] [address] [place] [address] documented as of this encounter Visit Diagnoses Not on filedocumented in this encounter Care Teams Strike On Machine Operator Relationship Specialty Start Date End Date None, Physician [address] [place] [address] PCP - General 04/10/24 documented as of this encounter
--- OUTSIDE RECORDS SUMMARY | 2024-09-24 06:04 | XMS_ITS | Encounter Summary ---
Author Organization [facility] Address [address] [place] [address] Care Team Providers Care Associate Loan Officer Name Role Phone None, Physician Primary Care Provider Unavailabl e Reason for Visit * Reason Onset Date Comments Appointment 06/19/2024 Change date and time Encounter Details Date Type Department Care Team (Late st Contact Info) Description 06/19/2024 Telephone [facility] - Cardiothoracic Surgery [address] [facility] [place] [address] Augustine Jimenez MD [address] [facility] [address] [place] [address] Appointment (Change date and time) Social History Tobacco Use Types Packs/Day Years [...] and heating? Not hard at all 05/23/2024 [facility] [place] of Occupat ional Health - Occupational Stress [...] No 05/23/2024 Housing Stability Vital Sign Answer Anedr e Recorded In the last 12 months, [...] place to sleep or slept in a long-term (including now)? No 05/23/2024 Sex and Gender [...] Telephone Encounter - Molly Cowart MA - 06/19/2024 12:28 PM CDT Called and spoke with Barry the materials scheduler and transportation poli at the intermediate ([phone])gave him new PFT date and time and location.. Change PER DR. TAM New PFT: 06/26/24 @ 1:00 pm at [address] [facility] [address], [facility] [address] Barry stated he understand. documented in this encounter Plan of Treatment Upcoming Encounters Date Type Department Care Team (Late st Contact Info) Description 10/16/2024 1:30 PM ECHOMETER ENGINEER Office Visit [facility] - ENT [address] [place] [phone] Ritesh Mensah MD [address] [place] [address] [place] [address] documented as of this encounter Visit Diagnoses Not on filedocumented in this encounter Care Teams Associate Loan Officer Relationship Specialty Start Date End Date None, Physician [address] [place] [address] PCP - General 04/10/24 documented as of this encounter
--- OUTSIDE RECORDS SUMMARY | 2024-09-24 06:04 | XMS_ITS ---
Author Organization [facility] Address [address] [place] [address] Care Team Providers Care Garment Alteration Examiner Name Role Phone None, Physician Primary Care Provider Unavailabl e Active Problems Problem Noted Date Diagnosed Date Malignant neoplasm of upper lobe of right lung 1 Basal cell carcinoma (BCC) of left nasal sidewal l 05/22/2024 Current Oncology Plans No current plan information found. Past Plans No past plan information found. Radiation Treatments * No radiation treatments are documented for this patient in [facility]. Treatments may have been administered in another system. Lifetime Dose Tracking * Chemical Lifetime Dose Automatic Entry Manual Entr y Dose Length Product 1,161.6 mGy-cm 1,161.6 mGy-cm 0 mG y-cm
--- OUTSIDE RECORDS SUMMARY | 2024-09-24 06:04 | XMS_ITS | Patient Health Summary ---
Author Organization [facility] [address] Address [address] [place] [address] Care Team Providers Care Manager Loan Name Role Phone None, Physician Primary Care Provider Unavailabl e Note from [facility],non-owned Affiliates and Associated Physician Practices is amultiple site organization consisting of ambulatory clinics and hospital sitesin [place], [place], [place] and [place]. This disclosure is being madepursuant to the Care Everywhere program and may not contain all information available regarding this patient. Last updated 18.[facility] [address] Allergies No known active allergies Medications * Be aware that medications may not be up to date on this document. Alwaysverify current medications with the patient. * diphenhydrAMINE (Benadryl) 25 mg/50 mL infusion Take 25 (twenty five) mg by mouth every 6 hours as needed * finasteride (Proscar) 5 MG tablet(Started 06/13/2023) Take 1 (one) tablet by mouth once daily * sevelamer (Renagel) 800 MG tablet(Started 03/12/2024) Take 2 (two) tablets by mouth 3 times daily with meals * tamsulosin (Flomax) 0.4 MG capsule(Started 05/30/2023) Take 1 (one) capsule by mouth once daily * polyethylene glycol 3350 (Miralax) 17 g packet Take by mouth once daily * alum and mag hydroxide-simeth (Maalox Max) 400-400-40 MG/5ML suspension Take 5 mL by mouth every 6 hours as needed for Heartburn * oxyCODONE, immediate release, (Roxicodone) 5 MG tablet(Started 07/21/2024) Take 1 (one) tablet by mouth every 4 hours as needed * white petroleum (Vaseline) ointment(Started 07/21/2024) Apply to affected area 3 times daily Active Problems Problem Noted Date Diagnosed Date [...] and heating? Not hard at all 05/23/2024 [facility] [place] of Occupat ional Health - Occupational Stress [...] Mass Index 30.59 07/17/2024 10:44 AM CDT Procedures * SIX MINUTE WALK(Performed 07/25/2024) Performed for Malignant neoplasm of upper lobe of right lung (HCC) * XR CHEST 1VW PORTABLE(Performed 07/21/2024) Performed for Lung nodule * PHOSPHORUS BLOOD(Performed 07/21/2024) Performed for Lung nodule * MAGNESIUM BLOOD(Performed 07/21/2024) Performed for Lung nodule * CBC W/O DIFFERENTIAL(Performed 07/21/2024) Performed for Lung nodule * BASIC METABOLIC PANEL (CALCIUM TOTAL)(Performed 07/21/2024) Performed for Lung nodule * CBC W AUTO DIFFERENTIAL(Performed 07/21/2024) Performed for Malignant neoplasm of upper lobe of right lung (HCC) * SD FOREHEAD FLAP W/ PRSRV VASC PEDICLE(Performed 07/20/2024) Performed for Basal cell carcinoma (BCC), unspecified site * XR CHEST 2VW(Performed 07/20/2024) Performed for Lung nodule * XR CHEST 1VW PORTABLE(Performed 07/20/2024) Performed for Lung nodule * PHOSPHORUS BLOOD(Performed 07/20/2024) Performed for Malignant neoplasm of upper lobe of right lung (HCC) * MAGNESIUM BLOOD(Performed 07/20/2024) Performed for Malignant neoplasm of upper lobe of right lung (HCC) * BASIC METABOLIC PANEL (CALCIUM TOTAL)(Performed 07/20/2024) Performed for Malignant neoplasm of upper lobe of right lung (HCC) * CBC W AUTO DIFFERENTIAL(Performed 07/20/2024) Performed for Malignant neoplasm of upper lobe of right lung (HCC) * XR CHEST 1VW PORTABLE(Performed 07/19/2024) Performed for Lung nodule * PHOSPHORUS BLOOD(Performed 07/19/2024) Performed for Malignant neoplasm of upper lobe of right lung (HCC) * MAGNESIUM BLOOD(Performed 07/19/2024) Performed for Malignant neoplasm of upper lobe of right lung (HCC) * BASIC METABOLIC PANEL (CALCIUM TOTAL)(Performed 07/19/2024) Performed for Malignant neoplasm of upper lobe of right lung (HCC) * CBC W AUTO DIFFERENTIAL(Performed 07/19/2024) Performed for Malignant neoplasm of upper lobe of right lung (HCC) * HEMODIALYSIS INPATIENT(Performed 07/18/2024) * HEPATITIS B SURFACE ANTIBODY QUANT(Performed 07/18/2024) * HEPATITIS B SURFACE ANTIGEN W RFLX CONFIRMATION(Performed 07/18/2024) * XR CHEST 1VW PORTABLE(Performed 07/18/2024) Performed for Malignant neoplasm of upper lobe of right lung (HCC) * XR CHEST 1VW PORTABLE(Performed 07/18/2024) Performed for Malignant neoplasm of upper lobe of right lung (HCC) * PHOSPHORUS BLOOD(Performed 07/18/2024) Performed for Malignant neoplasm of upper lobe of right lung (HCC) * MAGNESIUM BLOOD(Performed 07/18/2024) Performed for Malignant neoplasm of upper lobe of right lung (HCC) * BASIC METABOLIC PANEL (CALCIUM TOTAL)(Performed 07/18/2024) Performed for Malignant neoplasm of upper lobe of right lung (HCC) * CBC W AUTO DIFFERENTIAL(Performed 07/18/2024) Performed for Malignant neoplasm of upper lobe of right lung (HCC) * XR CHEST 1VW PORTABLE(Performed 07/17/2024) Performed for Lung nodule * PATHOLOGY TISSUE(Performed 07/17/2024) Performed for Malignant neoplasm of upper lobe of right lung (HCC) * ENDOTRACHEAL TUBE NOTE(Performed 07/17/2024) * SD THORACOSCOPY W/LOBECTOMY(Performed 07/17/2024) Performed for Malignant neoplasm of upper lobe of left lung (HCC) * TYPE + SCREEN PANEL(Performed 07/17/2024) * CBC W/O DIFFERENTIAL(Performed 07/17/2024) Performed for Pre-op testing * PHOSPHORUS BLOOD(Performed 07/17/2024) Performed for Pre-op testing * MAGNESIUM BLOOD(Performed 07/17/2024) Performed for Pre-op testing * BASIC METABOLIC PANEL (CALCIUM TOTAL)(Performed 07/17/2024) Performed for Pre-op testing * ENDOTRACHEAL TUBE NOTE(Performed 05/23/2024) * SD FOREHEAD FLAP W/ PRSRV VASC PEDICLE(Performed 05/23/2024) Performed for Basal cell carcinoma (BCC) of left side of nose * SD REPAIR NASAL CAVITY STENOSIS(Performed 05/23/2024) Performed for Basal cell carcinoma (BCC) of left side of nose * HEMODIALYSIS INPATIENT(Performed 05/23/2024) * HEPATITIS B SURFACE ANTIGEN W RFLX CONFIRMATION(Performed 05/23/2024) * HEPATITIS B SURFACE ANTIBODY QUANT(Performed 05/23/2024) * MAGNESIUM BLOOD(Performed 05/23/2024) * ALBUMIN BLOOD(Performed 05/23/2024) * VITAMIN D 25-HYDROXY(Performed 05/23/2024) * PHOSPHORUS BLOOD(Performed 05/23/2024) * BASIC METABOLIC PANEL (CALCIUM TOTAL)(Performed 05/23/2024) * PATHOLOGY TISSUE(Performed 05/22/2024) Performed for Basal cell carcinoma (BCC) of lateral side wall of nose * ENDOTRACHEAL TUBE NOTE(Performed 05/22/2024) * SD RECONSTR NOSE(Performed 05/22/2024) Performed for Basal cell carcinoma (BCC) of lateral side wall of nose * BLOOD TYPE VERIFICATION(Performed 05/22/2024) * TYPE + SCREEN PANEL(Performed 05/22/2024) Performed for Preop examination * BASIC METABOLIC PANEL (CALCIUM TOTAL)(Performed 05/22/2024) Performed for Preop examination * CBC W AUTO DIFFERENTIAL(Performed 05/22/2024) Performed for Preop examination * XR CHEST 1VW PORTABLE(Performed 05/18/2024) Performed for Lung nodule * FINE NEEDLE ASPIRATION (STL)(Performed 05/18/2024) Performed for Lung nodule * PATHOLOGY TISSUE(Performed 05/18/2024) Performed for Abnormal chest CT * ENDOTRACHEAL TUBE NOTE(Performed 05/18/2024) * SD NAVIGATIONAL BRONCHOSCOPY(Performed 05/18/2024) Performed for Abnormal chest CT * BRONCHOSCOPY(Performed 05/18/2024) * POTASSIUM WHOLE BLD(Performed 05/18/2024) Performed for Pre-op testing * CT CHEST WO CONT SUPER DIMENSION(Performed 05/18/2024) Performed for Lung nodule * PET CT SKULL TO MID THIGH(Performed 05/07/2024) Performed for Lung nodule * GLUCOSE SCREEN - POCT (IP) [facility](Performed 05/07/2024) * CT NECK SOFT TISSUE W CONT(Performed 04/17/2024) Performed for Basal cell carcinoma of skin of nose Results * SIX MINUTE WALK (07/25/2024 11:59 AM ADJUNCT TRAINER) Impressions Satish Mcginnis MD - 07/25/2024 11:59 AM ADJUNCT TRAINER [facility] DEPARTMENT OF PULMONARY, CRITICAL CARE, AND SLEEP [...] of Pulmonary, Critical Care, and Sleep Medicine [facility] I have reviewed this study and agree with the interpretation by the Bag Builder. Satish Mcginnis M.D. [employer] Inspector of Internal Medicine Division of Pulmonary, Critical Care and Sleep Medicine [facility] Narrative Satish Mcginnis MD - 07/25/2024 11:59 AM ADJUNCT TRAINER Hank Herndon MD ? 07/26/2024 ??5:36 AM Ben Mccormack MD RESPIRATORY THERAPY ORDERABLES * XR Chest 1Vw Portable (07/21/2024 5:00 AM CDT) Only the most recent of7 resultswithin the time period is included. Anatomical Region Laterality Modality Chest Digital Radiogra phy 07/22/2024 2:53 PM ADJUNCT TRAINER Impressions 07/22/2024 2:54 PM ADJUNCT TRAINER IMPRESSION: Unchanged right internal jugular central venous [...] 07/22/2024 2:54 PM Narrative 07/22/2024 2:54 PM ADJUNCT TRAINER PROCEDURE: ??XR CHEST 1VW PORTABLE DATE/TIME OF [...] of5 resultswithin the time period is included. [facility] WBC 8.1 4.0 - 10.7 x10E9/L 07/21/2024 2:29 AM [facility] RBC Count 3.21(L) 4.30 - 5.80 x10E12/L 07/21/2024 2:29 AM [facility] Hemoglobin 10.4(L) 13.3 - 17.5 g/dL 07/21/2024 2:29 AM [facility] Hematocrit 32.3(L) 38.7 - 51.1 % 07/21/2024 2:29 AM [facility] MCV 100.6(H) 80.0 - 98.0 fL 07/21/2024 2:29 AM [facility] MCH 32.4 26.7 - 33.6 pg 07/21/2024 2:29 AM [facility] MCHC 32.2 31.7 - 36.3 g/dL 07/21/2024 2:29 AM [facility] RDW-CV 13.8 11.3 - 14.8 % 07/21/2024 2:29 AM [facility] Platelet Count 184 150 - 420 x10E9/L 07/21/2024 2:29 AM [facility] MPV 9.6 7.8 - 11.4 fL 07/21/2024 2:29 AM [facility] Neutrophil % 69.8 41.0 - 74.0 % 07/21/2024 2:29 AM [facility] Lymphocyte % 14.2(L) 17.0 - 47.0 % 07/21/2024 2:29 AM [facility] Monocyte % 7.9 3.0 - 11.0 % 07/21/2024 2:29 AM [facility] Eosinophil % 7.4(H) 0.0 - 7.0 % 07/21/2024 2:29 AM [facility] Basophil % 0.5 0.0 - 1.6 % 07/21/2024 2:29 AM [facility] Immature Granulocytes % 0.2 0.0 - 1.0 % 07/21/2024 2:29 AM [facility] Neutrophil Absolute 5.67 1.60 - 7.50 x10E9/L 07/21/2024 2:29 AM T [facility] Lymphocyte Absolute 1.15 1.00 - 4.40 x10E9/L 07/21/2024 2:29 AM [facility] Monocyte Absolute 0.64 0.15 - 1.00 x10E9/L 07/21/2024 2:29 AM [facility] Eosinophil Absolute 0.60 0.00 - 0.60 x10E9/L 07/21/2024 2:29 AM [facility] Basophil Absolute 0.04 0.00 - 0.13 x10E9/L 07/21/2024 2:29 AM [facility] Blood BLOOD SPECIMEN / Unknown Lab Venipuncture / Unknown 07/21/2024 2:02 AM CDT 07/21/2024 2:25 AM CDT Augustine Jimenez MD LAB - HEMATOL OGY ORDERABLES [facility] [address] [place] [address], [facility] [phone] * (ABNORMAL) CBC W/O DIFFERENTIAL (07/21/2024 2:02 AM CDT) Only the most recent of2 resultswithin the time period is included. WBC 8.1 4.0 - 10.7 x10E9/L 07/21/2024 2:29 AM [facility] RBC Count 3.21(L) 4.30 - 5.80 x10E12/L 07/21/2024 2:29 AM [facility] Hemoglobin 10.4(L) 13.3 - 17.5 g/dL 07/21/2024 2:29 AM [facility] Hematocrit 32.3(L) 38.7 - 51.1 % 07/21/2024 2:29 AM [facility] MCV 100.6(H) 80.0 - 98.0 fL 07/21/2024 2:29 AM [facility] MCH 32.4 26.7 - 33.6 pg 07/21/2024 2:29 AM [facility] MCHC 32.2 31.7 - 36.3 g/dL 07/21/2024 2:29 AM [facility] RDW-CV 13.8 11.3 - 14.8 % 07/21/2024 2:29 AM [facility] Platelet Count 184 150 - 420 x10E9/L 07/21/2024 2:29 AM [facility] MPV 9.6 7.8 - 11.4 fL 07/21/2024 2:29 AM [facility] Blood BLOOD SPECIMEN / Unknown Lab Venipuncture / Unknown 07/21/2024 2:02 AM CDT 07/21/2024 2:25 AM CDT Augustine Jimenez MD LAB - HEMATOL OGY ORDERABLES Performing Organization Address City/State/[facility] Co de Phone Number [address] [address], [facility] [phone] * (ABNORMAL) BASIC METABOLIC PANEL (CALCIUM TOTAL) (07/21/2024 2:02 AM CDT) Only the most recent of7 resultswithin the time period is included. BUN 58(H) 7 - 26 mg/dL 07/21/2024 2:49 AM [facility] Creatinine 10.50(H) 0.71 - 1.16 mg/dL 07/21/2024 2:49 AM [facility] Sodium 139 136 - 145 mmol/L 07/21/2024 2:49 AM [facility] Potassium 4.3 3.5 - 4.5 mmol/L 07/21/2024 2:49 AM [facility] Chloride 101 98 - 107 mmol/L 07/21/2024 2:49 AM [facility] CO2 24 22 - 29 mmol/L 07/21/2024 2:49 AM [facility] Glucose 163(H) 70 - 99 mg/dL 07/21/2024 2:49 AM [facility] Calcium 8.6 8.4 - 10.2 mg/dL 07/21/2024 2:49 AM CDT [facility] Anion Gap 14 6 - 16 07/21/2024 2:49 AM CDT [facility] BUN/Creatinine Ratio 6(L) 7 - 23 07/21/2024 2:49 AM CDT [facility] Osmolality Calculated 308(H) 275 - 295 mOsm/kg 07/21/2024 2:49 AM CDT [facility] eGFR by CKD-EPI 5(L) >=90 mL/min/1.7 3 m2 07/21/2024 2:49 AM CDT [facility] Blood BLOOD SPECIMEN / Unknown Lab Venipuncture / Unknown 07/21/2024 2:02 AM CDT 07/21/2024 2:23 AM CDT Augustine Jimenez MD LAB - AUTO MECHANICS TEACHER RY ORDERABLES [address] [address], [facility] [phone] * (ABNORMAL) PHOSPHORUS BLOOD (07/21/2024 2:02 AM CDT) Only the most recent of6 resultswithin the time period is included. Phosphorus 6.7(H) 2.8 - 5.1 mg/dL 07/21/2024 2:49 AM CDT [facility] Blood BLOOD SPECIMEN / Unknown Lab Venipuncture / Unknown 07/21/2024 2:02 AM CDT 07/21/2024 2:23 AM CDT Augustine Jimenez MD LAB - AUTO MECHANICS TEACHER RY ORDERABLES [address] [address], [facility] [phone] * MAGNESIUM BLOOD (07/21/2024 2:02 AM CDT) Only the most recent of6 resultswithin the time period is included. Magnesium 2.5 1.6 - 2.6 mg/dL 07/21/2024 2:49 AM CDT [facility] Blood BLOOD SPECIMEN / Unknown Lab Venipuncture / Unknown 07/21/2024 2:02 AM CDT 07/21/2024 2:23 AM CDT Augustine Jimenez MD LAB - AUTO MECHANICS TEACHER RY ORDERABLES [facility] [address] [place] [address], [facility] [phone] * XR Chest 2Vw (07/20/2024 9:49 AM [...] SURFACE ANTIBODY QUANT (07/18/2024 9:23 AM CDT) Only the most recent of2 resultswithin the time period is included. Hepatitis B Virus Surface Antibody 3.95 IU/L 07/20/2024 12:43 PM CDT [facility] ([facility]) Comment: The anti-HBs is less than 10 [...] Cellular and Tissue-Based Products (HCT/P). Performed By: [facility] [address] [place] [address] Home Theater Expert: Mahendra Duron MD, PhD CLIA Number: [id number] Blood BLOOD SPECIMEN / Unknown Lab Venipuncture / Unknown 07/18/2024 9:23 AM CDT 07/18/2024 9:49 AM CDT Bebo Mac MD LAB - SEROLOGY ORDER ELSIE [facility]) [address] * HEPATITIS B SURFACE ANTIGEN W RFLX CONFIRMATION (07/18/2024 9:23 AM CDT) Only the most recent of2 resultswithin the time period is included. Hepatitis B Virus Surface Antigen Non-reacti ve Non-reacti ve 07/18/2024 10:40 AM CDT [facility] Blood BLOOD SPECIMEN / Unknown Lab Venipuncture / Unknown 07/18/2024 9:23 AM CDT 07/18/2024 9:49 AM CDT Bebo Mac MD LAB - CHEMISTRY NELDA TIPTON Performing Organization Address [facility]/State/[facility] Co de Phone Number [facility] [address] [place] [address], [facility] [phone] * PATHOLOGY TISSUE (07/17/2024 3:48 PM CDT) Only the most recent of3 resultswithin the time period is included. Case Report Surgical Pathology Report ? Case: [id number] ? Authorizing Provider: ??Augustine Jimenez, ??Collected: ? 07/17/2024 03:48 PM ? MD ? Ordering Location: ? [facility] ?Received: ?07/18/2024 04:46 AM ? Pathologist: ? Rene Chavis MD ? Specimens: ?? A) - Lung Resect Seg, Left upper lobe wedge. ? B) - Margin, True margin. ? C) - Lymph Node, Station 5 lymph node. ? D) - Lymph Node, Station 6 lymph node. ? E) - Lymph Node, Station 3 lymph node. ? F) - Lymph Node, Station 10 lymph node. ? 4 8:33 PM ADJUNCT TRAINER [facility] PATH[facility]Y [facility] Final Diagnosis Lung, left upper [...] nodes, negative for carcinoma (0/2) 8:33 PM [facility] Preliminary result electronically signed by Rene Chavis MD on 07/21/2024 at 5:00 PM Microscopic Description and Comment Additional immunostains for TTF-1 on blocks A2 and A3 were performed, and both stains are positive in malignant cells. 8:33 PM [facility] Clinical History The patient is a 64 year-old male with adenocarcinoma of the left upper lobe. 8:33 PM [facility] Intraoperative Consultation A) Left upper lobe wedge -piece of lung tissue 10 x 8 x 4 cm, stapled along edges, area of pleural puckering 2.5 x 2.0 cm corresponding to subpleural firm white tumor 3.0 x 1.8 x 1.1 cm. Margins grossly clear. Grain Elevator Motor Starter section of tumor frozen (FSA1). Intraoperative diagnosis: [...] by Dr. Satish Riggs MD 8:33 PM [facility] Gross Description The requisition [...] respectively submitted in cassette A1 and additional group sales representative sections are submitted as follows: A2, [...] as cassette F1. AL 4 8:33 PM [facility] Pathologist Location at [facility] 4 8:33 PM [facility] Disclaimer The performance characteristics of all immunohistochemical and indirect immunofluorescence stains (if any) cited in this report were determined by the Histopathology Laboratory of [facility]. Some of these tests were [...] the attending (teaching) pathologist. 4 8:33 PM [facility] Synoptic Report LUNG LUNG [...] ?? Additional Findings: ?Emphysema 4 8:33 PM [facility] Embedded Images 4 8:33 PM [facility] Biopsy, Excision RESECTED LUNG [...] Jimenez MD LAB - PATHOLO GY/CYTOLOGY ORDERABLES [facility] [address] [place] [address], [facility] [phone] * ETT LINE PERFORMABLE (07/17/2024 3:21 PM CDT) Narrative Sunny Baeza DO - 07/17/2024 3:21 PM CDT Sunny Baeza DO ? 07/17/2024 ??3:26 PM Endotracheal Tube Placement: ? Patient Location: OR. Intubation Event Date/Time: ??07/17/2024 2:53 PM Procedure: intubation ([id number]) Procedure Section: ?? Sedation: under general anesthesia. [...] + SCREEN PANEL (07/17/2024 10:41 AM CDT) Only the most recent of2 resultswithin the time period is included. Antibody Screen NEG 11:28 AM CDT [facility] BLOOD B[facility] LAB ABO Rh O POS 07/17/2024 11:28 AM CDT [facility] LAB Blood Bank BLOOD SPECIMEN / Unknown Venipuncture / Unknown 07/17/2024 10:41 AM CDT 07/17/2024 10:46 AM CDT Augustine Jimenez MD LAB - BLOOD B ANK ORDERABLES [facility] B[facility] LAB [address] [place] [address], [facility] [phone] * ETT LINE PERFORMABLE (05/23/2024 12:41 PM CDT) Narrative Daren Quiroz APRN-CRNA - 05/23/2024 12:41 PM CDT Daren Quiroz APRN-CRNA ? 05/23/2024 12:41 PM Endotracheal Tube Placement: ? Patient Location: OR. Intubation Event Date/Time: ??05/23/2024 12:32 PM Procedure: intubation ([id number]) Procedure Section: ?? Sedation: under general anesthesia. Indications for Airway Management: ??anesthesia Procedure pretreatments used? ??No Induction: standard IV Patient Position: ??sniffing Mask Ventilation: easy with oral airway. Blade Type: Mati Blade Size: 4 Laryngoscopy View: grade 1 (full cords) Intubation Adjuncts: stylet Tube: endotracheal tube Placement: oral Tube type: cuff - inflated Tube Size (MM): 8 Depth of Insertion (CM): 23 Measured From: gums Cuff Inflated With: air Number of Attempts: 1. Placement Verified By: direct visualization, chest auscultation and CO2 monitor Tube secured with: ??adhesive tape. Dentition unchanged? ??Yes Difficult Airway? ??No. Procedure Start Time: 05/23/2024 12:32 PM. Staff Section ? Anesthesia Provider: Daren Quiroz APRN-NUVIA ? Provider #1: Madelin Sun DO, Performed the procedure. ? Provider #2: Rainer Jackson DO. Additional Comments: Atraumatic intubation with teeth, lip, and tongue unchanged from preop. Rainer Jackson DO GENERAL ANESTHESI A ORDERABLES * (ABNORMAL) VITAMIN D 25-HYDROXY (05/23/2024 7:24 AM CDT) Vitamin D, 25 Hydroxy 22.4(L) 30.0 - 80.0 ng/mL 05/23/2024 8:35 AM CDT [facility] Comment: The recommendations for 25-Hydroxy Vitamin D clinical decision points are as follows: ? Deficient: ? <20.0 ng/mL ? Insufficient: ? 20.0 - 29.9 ng/mL ? Sufficient: ? 30.0 - 100.0 ng/mL ? Potential Toxicity: ??>100 ng/mL Reference: The Endocrine Society Clinical Practice Guidelines. 2011 If the 25-Hydroxy Vitamin D results are inconsitent with clinical evidence, it is recommended that follow-up testing using a method such as LC/MS/MS be performed to confirm the result. ? Blood BLOOD SPECIMEN / Unknown Venipuncture / Unknown 05/23/2024 7:24 AM CDT 05/23/2024 7:50 AM CDT Matteo Menezes MD LAB - CHEMISTRY NELDA TIPTON Performing Organization Address City/[facility]/ZIP Co de Phone Number [address] [address], [place] [phone] * ALBUMIN BLOOD (05/23/2024 7:24 AM CDT) Albumin 3.6 3.4 - 5.0 g/dL 05/23/2024 8:17 AM CDT [facility] Blood BLOOD SPECIMEN / Unknown Venipuncture / Unknown 05/23/2024 7:24 AM CDT 05/23/2024 7:50 AM CDT Matteo Menezes MD LAB - CHEMISTRY NELDA TIPTON Performing Organization Address [facility] Co de Phone Number [address] [address], [place] [phone] * ETT LINE PERFORMABLE (05/22/2024 5:03 PM CDT) Narrative Irma Nelson MD - 05/22/2024 5:03 PM CDT Irma Nelson MD ? 05/22/2024 ??5:04 PM Endotracheal Tube Placement: ? Patient Location: OR. Intubation Event Date/Time: ??05/22/2024 4:50 PM Procedure: intubation ([id number]) Procedure Section: ?? Sedation: under general anesthesia. Indications for Airway Management: ??anesthesia Induction: standard IV Patient Position: ??supine and sniffing Mask Ventilation: easy and difficult and required 2 people (2 handed). Blade Type: Mati Blade Size: 4 Laryngoscopy View: grade 1 (full cords) Intubation Adjuncts: stylet and cricoid pressure Tube: endotracheal tube Placement: oral Tube type: cuff - inflated Tube Size (MM): 8 Depth of Insertion (CM): 24 Measured From: teeth Cuff Inflated With: air Number of Attempts: 1. Placement Verified By: direct visualization, bilateral breath sounds, CO2 monitor and chest auscultation Tube secured with: ??adhesive tape. Dentition unchanged? ??Yes Difficult Airway? ??No. Procedure Start Time: 05/22/2024 4:50 PM. Staff Section ? Anesthesia Provider: Irma Nelson MD, Performed the procedure ? Provider #1: Jimmy Angelo MD. Jimmy Angelo MD GENERAL ANESTHESIA O RDERABLES * BLOOD TYPE VERIFICATION (05/22/2024 3:11 PM CDT) ABO Rh O POS 05/22/2024 3:5 5 PM CDT [facility] BLOOD BANK LAB Blood Bank BLOOD SPECIMEN / Unknown Venipuncture / Unknown 05/22/2024 3:11 PM CDT 05/22/2024 3:21 PM CDT Matteo Menezes MD LAB - BLOOD BANK ORD ERABLES Performing Organization Address [facility] Co de Phone Number [facility] BLOOD [facility] LAB [address] [place] [address], [facility] [phone] * FINE NEEDLE ASPIRATION (STL) (05/18/2024 3:25 PM CDT) Pathologist [facility] Case Report Medical Cytology Report ? Case: [id number] ? Authorizing Provider: ??Ben Mccormack MD ?Collected: ? 05/18/2024 03:25 PM ? Ordering Location: ? [facility] ? Received: ?05/22/2024 08:43 AM ? Pathologist: ? Rene Chavis MD ? Specimen: ?Lung, MANISHA ? 05/23/2024 5:[address] [facility] PATHOLOGY LAB Specimen Adequacy Adequate cellularity for evaluation. 05/23/2024 5:[address] [facility] [facility] Final Diagnosis Lung, left upper lobe lesion, EBUS/FNA and touchprep: - Malignant cells present, compatible with non-small cell carcinoma, see comment 05/23/2024 5:[address] [facility] Clinical History The patient is a 63 year-old male with history of basal cell carcinoma, ESRD on HD, who was found to have about 2 x 2 cm MANISHA nodule. 05/23/2024 5:[address] [facility] Gross Description 1 pap stained smear, 1 diff quick smear, 1 diff quick touch prep and 45cc of slightly cloudy collection fluid from which 1 cell block is made. Lung, MANISHA lesion, EBUS/FNA: Episode 1: Pass 1-Rare atypical cells seen 15:05 Lung, MANISHA lesion, touch prep: -Malignant, favor non-small cell carcinoma Immediate interpretation by Dr. Antoni Chavis 05/23/2024 5:[address] [facility] Microscopic Description The cell block material is insufficient for additional ancillary/molecular studies. Please also correlate with concurrent surgical pathology report ([id number]). 05/23/2024 5:[address] [facility] Pathologist Location at [facility] 05/23/2024 5:[address] [facility] Disclaimer The performance characteristics of all immunohistochemical and indirect immunofluorescence stains (if any) cited in this report were determined by the Histopathology Laboratory of [facility]. Some of these tests rely on the use of analyte-specific reagents and are subject to specific labeling requirements by the US Food and Drug Administration. Such tests were developed by the Histology Laboratory of [facility] and have not been cleared or approved by the FDA. The FDA has determined that such clearance and approval is not necessary. These tests are used for clinical purposes and should not be regarded as investigational or for research. This laboratory is certified under the Clinical Laboratory Improvement Amendments (CLIA) as qualified to perform high complexity clinical laboratory testing. This case has been personally reviewed and interpreted by the attending (teaching) pathologist. 05/23/2024 5:14 PM CDT [facility] Embedded Images 05/23/2024 5:14 PM CDT [facility] Pathology/Cytolo gy ENTIRE LUNG / Unknown Collection / Unknown 05/18/2024 3:25 PM CDT 05/22/2024 8:43 AM CDT Ben Mccormack MD LAB - PATHOLOGY/CYTO LOGY ORDERABLES Performing Organization Address City/[facility] Phone Number [facility] [address] [phone] * ETT LINE PERFORMABLE (05/18/2024 3:01 PM CDT) Narrative Albino Corral Anes Asst - 05/18/2024 3:01 PM CDT Albino Corral Anes Asst ? 05/18/2024 ??3:02 PM Endotracheal Tube Placement: ? Patient Location: OR. Intubation Event Date/Time: ??05/18/2024 2:42 PM Procedure: intubation ([id number]) Procedure Section: ?? Sedation: under general anesthesia. Indications for Airway Management: ??anesthesia Induction: standard IV Patient Position: ??sniffing Mask Ventilation: easy with oral airway. Blade Type: Slade Blade Size: 2 Laryngoscopy View: grade 1 (full cords) Intubation Adjuncts: stylet Tube: endotracheal tube Placement: oral Tube type: cuff - inflated Tube Size (MM): 8.5 Depth of Insertion (CM): 21 Measured From: lips Cuff Inflated With: air Number of Attempts: 1. Placement Verified By: direct visualization, bilateral breath sounds, chest auscultation and CO2 monitor Tube secured with: ??adhesive tape. Dentition unchanged? ??Yes Difficult Airway? ??No. Procedure Start Time: 05/18/2024 2:42 PM. Staff Section ? Anesthesia Provider: Albino Corral Anes Asst, Performed the procedure Nohelia Chatman DO GENERAL ANESTHESIA ORDERABLES * BRONCHOSCOPY (05/18/2024 2:12 PM CDT) Report Endoscopy POC [facility] Advanced Diagnostic Bronchoscopy and Interventional Pulmonary Service __ _ Patient Name: Andrey Giron ?Procedure Date: 05/18/2024 2:12 PM Date of : 1960 ? Attending MD: Ben Mccormack MD, [id number] Age: 63 ? Room: Bronch Suite ? __ _ Providers: ?Ben Mccormack MD, Gonzalo Goddadr RRT, Ciara De Souza ?MICROSOFT APPLICATION DEVELOPER, Leon Quintero (Fellow) Referring MD: ? Procedure: ?Bronchoscopy Indications: ?Left upper lobe mass Medicines: ?General Anesthesia Description of Procedure: After obtaining informed consent,The procedure was ?accomplished without difficulty. The patient ?tolerated the procedure well. ? Findings: ? The endotracheal tube is in good position. The visualized portion of the ? trachea is of normal caliber. The junior is sharp. The tracheobronchial ? tree was examined to at least the first subsegmental level. Bronchial ? mucosa and anatomy are normal; there are no endobronchial lesions, and ? no secretions. ? FIRST LOBE: ? The Ion Shape Sensing Robotic Assisted Bronchoscope was brought into the ? field and the process of registration was carried out. The guide ? catheter was used for peripheral navigational bronchoscopy using the ? planned pathway into the MANISHA lesion and was able to be wedged ? peripherally at a distance of 20 mm away from the target. We locked the ? catheter position in, and removed the vision probe. ? We introduced the radial EBUS probe and obtained a(n) concentric ? [id number] image location relative to the lesion in the same lobe. ? We confirmed our location with a fluoroscopic C-arm. ? We then removed the R-EBUS and introduced the biopsy tools starting with ? a 21G ION bronchoscopic peripheral needle for Transbronchial Needle ? Aspirations (TBNA). The first pass was sent for Rapid On Site Evaluation ? (FLOWER). We continued more biopsies in a cloud format. ? After that, we used the 1.1mm ERBE flexible cryoprobe with freeze time ? of 3-5 seconds to obtain multiple large samples for transbronchial ? cryobiopsies of the same lesion. Hemostasis was ensured by keeping the ? ION catheter in place for tamponade. ? then we switched to linear EBUS, we looked thoroughly at the mediastinal ? and hilar lymph nodes, there is no significant LN we found and therefore ? we didn't obtain any samples. ? Estimated Blood Loss: ? Estimated blood loss was minimal. Complications: ?No immediate complications __ _ Impression: ? - Left upper lobe mass ?- we navigated via ION robot and obtained multiple ?samples from the MANISHA lesion ?- we did staging EBUS and no significant hilar or ?mediastinal lymph nodes were identifed Recommendation: ? - Await biopsy and cytology results. Attending Participation: ??I was present and participated during the entire ?procedure, including non-lindsay portions. Ben Mccormack MD 05/18/2024 3:48:32 PM Leon Quintero, Note Initiated On: 05/18/2024 2:12 PM Number of Addenda: 0 ? [facility] ? [address] [place] [address] [facility] 05/18/2024 2:12 PM CDT Ben Mccormack MD RESPIRATORY THERAPY ORDERABLES Performing Organization Address City/[facility]/ZIP Co de Phone Number [facility] * POTASSIUM WHOLE BLD (05/18/2024 12:27 PM CDT) Potassium Whole Blood 4.5 3.5 - 5.5 mmol/L 05/18/2024 12:38 PM CDT [facility] Blood WHOLE BLOOD SPECIMEN / Unknown Venipuncture / Unknown 05/18/2024 12:27 PM CDT 05/18/2024 12:35 PM CDT Ben Mccormack MD LAB - CHEMISTRY NELDA TIPTON Performing Organization Address City/[facility]/ZIP Co de Phone Number [facility] [address] [place] [address], [place] [phone] * CT Chest Wo Cont Super Dimension (05/18/2024 11:05 AM CDT) Anatomical Region Laterality Modality Chest Computed Tomogra phy 05/18/2024 2:00 PM CDT Impressions 05/18/2024 3:21 PM CDT Impression: 1.There is a 1.8 x 1.8 x 1.8 cm spiculated nodule in the left lung apex concerning for malignancy. 2.Thyroid nodules can be further evaluated with a thyroid ultrasound. > Dictated by Natalio Villeda MD, (radiology receptionist). I, Augie Slater MD have personally reviewed and interpreted this examination/study. > Interpreting Provider: Augie Slater MD on 05/18/2024 3:21 PM Narrative 05/18/2024 3:21 PM CDT PROCEDURE: ??CT CHEST WO CONT SUPER DIMENSION, DATE/TIME OF EXAM: ??05/18/2024 11:28 AM, LOCATION ??[facility] INDICATION: R91.1: Lung nodule ADDITIONAL CLINICAL INFORMATION: Ordering Provider Reason For Exam: Technologist Note: Additional: COMPARISON: PET/CT 05/07/2024 TECHNIQUE: CT of the chest was performed without contrast according to standard protocol. Findings: Evaluation of visceral and vascular structures is degraded due to lack of intravenous contrast administration. Right internal jugular approach central venous catheter terminates in the right atrium. Lower Neck and Axillae: Ill-defined hypoattenuating nodules in the left lobe of the thyroid gland. No lymphadenopathy otherwise. Heart and Pericardium: The cardiac chambers are normal in size. No pericardial fluid or thickening is present. The coronary arteries are atherosclerotic. Mediastinum and Tiffani: No enlarged lymph nodes are present. Lungs: Emphysematous changes in the lung apices. There is a 1.8 x 1.8 x 1.8 cm spiculated nodule in the left lung apex. No other pulmonary nodules. There is no pleural effusion or pneumothorax. Thoracic Vasculature: The aorta and its branch vessels are atherosclerotic. Bones and Chest Wall: Bone windows demonstrate no suspicious lytic or blastic lesions. Chronic deformity of the left eighth posterolateral rib. Upper Abdomen: Small hiatal hernia. Partially visualized stent in the right kidney. Calcification seen in the left uteropelvic junction, could represent a catheter. Procedure Note Augie Slater MD - 05/18/2024 PROCEDURE: CT CHEST WO CONT SUPER DIMENSION, DATE/TIME OF EXAM:05/18/2024 11:28 AM, LOCATION [facility] INDICATION: R91.1: Lung nodule ADDITIONAL CLINICAL INFORMATION: Ordering Provider Reason For Exam: Technologist Note: Additional: COMPARISON: PET/CT 05/07/2024 TECHNIQUE: CT of the chest was performed without contrast according to standard protocol. Findings: Evaluation of visceral and vascular structures is degraded due to lackof intravenous contrast administration. Right internal jugular approach central venous catheter terminates inthe right atrium. Lower Neck and Axillae: Ill-defined hypoattenuating nodules in the left lobe of the thyroidgland. No lymphadenopathy otherwise. Heart and Pericardium: The cardiac chambers are normal in size. No pericardial fluid orthickening is present. The coronary arteries are atherosclerotic. Mediastinum and Tiffani: No enlarged lymph nodes are present. Lungs: Emphysematous changes in the lung apices. There is a 1.8 x 1.8 x 1.8 cm spiculated nodule in the left lung apex. No other pulmonary nodules.There is no pleural effusion or pneumothorax. Thoracic Vasculature: The aorta and its branch vessels are atherosclerotic. Bones and Chest Wall: Bone windows demonstrate no suspicious lytic or blastic lesions. Chronic deformity of the left eighth posterolateral rib. Upper Abdomen: Small hiatal hernia. Partially visualized stent in the right kidney. Calcification seen in the left uteropelvic junction, could represent a catheter. Impression: 1.There is a 1.8 x 1.8 x 1.8 cm spiculated nodule in the left lung apex concerning for malignancy. 2.Thyroid nodules can be further evaluated with a thyroid ultrasound. > Dictated by Natalio Villeda MD, (radiology receptionist). I, Augie Slater MD have personally reviewed and interpreted this examination/study. > Interpreting Provider: Augie Slater MD on 05/18/2024 3:21 PM Ben Mccormack MD CT ORDERABLES * PET CT Skull To Mid Thigh (05/07/2024 11:03 AM CDT) Anatomical Region Laterality Modality Head, Lower Extremity Positron E mission Tomography (PET) 05/07/2024 10:3 6 AM CDT Impressions 05/07/2024 12:46 PM CDT IMPRESSION: 1. Hypermetabolic left apical pulmonary nodule suspicious for malignancy. 2. No FDG avid mediastinal lymphadenopathy. 3. Left nasal region with increased FDG uptake compatible with known diagnosis of basal cell carcinoma. No FDG avid cervical lymphadenopathy. > Dictated by Autumn Lin MD (Independent Video Producer) 05/07/2024 10:36 AM IJoey DO have personally reviewed and interpreted this examination/study. > Interpreting Provider: Joey Tubbs DO on 05/07/2024 12:46 PM Narrative 05/07/2024 12:46 PM CDT PROCEDURE: ??PET CT SKULL TO MID THIGH DATE/TIME OF EXAM: ??05/07/2024 11:03 AM CLINICAL INFORMATION: None relevant/not provided if blank. Indication: R91.1: Lung nodule Additional History: Procedure: FDG PET/CT Study. Referring Physician: Ben Mccomrack MD HISTORY: 63-year-old man with Recent CT neck showed suspicious left upper lobe pulmonary nodule and right paratracheal lymph node. PET scan to evaluate new lung nodule. Past medical history notable for basal cell carcinoma of the left nose/cheek status post resection 6 years ago. Now with biopsy-proven recurrence. ??Evaluate for initial treatment strategy. TECHNIQUE: ??8.83 mCi of F-18 FDG by IV in the left hand. PET/CT image acquisition from top of the head to the feet after approximately ??60 minutes post-injection with the CT being low-dose, non-contrast. No separate report for the CT was used for attenuation correction and anatomic localization. Blood glucose level at the time of injection was 95 mg/dl. Patient's BMI is 31 kg/m??. COMPARISON: CT neck 04/17/2024 FINDINGS: For reference, SUVmax of liver is 4.4. Head and neck: There is physiological FDG activity throughout the brain parenchyma. No abnormal FDG focus is present. No hypermetabolic or enlarged cervical lymph node is identified. Linear FDG uptake along left nasal region SUV max 5.3. Chest: ?? Right internal jugular approach central venous catheter terminating in cavoatrial junction. Left apical pulmonary nodule measuring 2.5 x 1.5 cm with SUV max 12.5.There is no evidence of pneumothorax. The heart size is normal. No pericardial effusion is present. No hypermetabolic or enlarged mediastinal, axillary, or supraclavicular lymphadenopathy is seen. Abdomen and pelvis: ?? Bilateral nephrostomy tubes visualized. Small calcified granulomas visualized in spleen. Prostatomegaly. Within the limitations of a noncontrast examination, the visceral abdominal organs are unremarkable. There is normal FDG activity throughout the small and large bowel. No free air or free fluid is identified within the abdomen. There is no hypermetabolic or enlarged abdominal or pelvic lymphadenopathy. Atherosclerotic calcification of the abdominal aorta and its branches is identified. Musculoskeletal: No suspicious lytic or blastic lesions are identified. No abnormal FDG uptake is seen within the osseous structures. Multilevel degenerative changes throughout the spinal column are identified. Procedure Note Joey Tubbs, DO - 05/07/2024 PROCEDURE: PET CT SKULL TO MID THIGH DATE/TIME OF EXAM: 05/07/2024 11:03 AM CLINICAL INFORMATION: None relevant/not provided if blank. Indication: R91.1: Lung nodule Additional History: Procedure: FDG PET/CT Study. Referring Physician: Ben Mccormack MD HISTORY: 63-year-old man with Recent CT neck showed suspicious leftupper lobe pulmonary nodule and right paratracheal lymph node. PET scan to evaluate new lung nodule. Past medical history notable for basal cell carcinoma of the left nose/cheek status post resection 6 years ago. Now with biopsy-proven recurrence. Evaluate for initial treatment strategy. TECHNIQUE: 8.83 mCi of F-18 FDG by IV in the left hand. PET/CT image acquisition from top of the head to the feet after approximately 60 minutes post-injection with the CT being low-dose, non-contrast. No separate report for the CT was used for attenuation correction andanatomic localization. Blood glucose level at the time of injection was 95 mg/dl. Patient's BMI is 31 kg/m??. COMPARISON: CT neck 04/17/2024 FINDINGS: For reference, SUVmax of liver is 4.4. Head and neck: There is physiological FDG activity throughout the brain parenchyma. No abnormal FDG focus is present. No hypermetabolic or enlarged cervicallymph node is identified. Linear FDG uptake along left nasal region SUV max5.3. Chest: Right internal jugular approach central venous catheter terminating in cavoatrial junction. Left apical pulmonary nodule measuring 2.5 x 1.5 cm with SUV max 12.5.There is no evidence of pneumothorax. The heart sizeis normal. No pericardial effusion is present. No hypermetabolic orenlarged mediastinal, axillary, or supraclavicular lymphadenopathy is seen. Abdomen and pelvis: Bilateral nephrostomy tubes visualized. Small calcified granulomas visualized in spleen. Prostatomegaly. Within the limitations of a noncontrast examination, the visceral abdominal organs are unremarkable. There is normal FDG activity throughout the small and large bowel. Nofree air or free fluid is identified within the abdomen. There is no hypermetabolic or enlarged abdominal or pelvic lymphadenopathy. Atherosclerotic calcification of the abdominal aorta and its branches is identified. Musculoskeletal: No suspicious lytic or blastic lesions are identified. No abnormal FDG uptake is seen within the osseous structures. Multilevel degenerative changes throughout the spinal column are identified. IMPRESSION: 1. Hypermetabolic left apical pulmonary nodule suspicious formalignancy. 2. No FDG avid mediastinal lymphadenopathy. 3. Left nasal region with increased FDG uptake compatible with known diagnosis of basal cell carcinoma. No FDG avid cervical lymphadenopathy. > Dictated by Autumn Lin MD (Independent Video Producer) 05/07/2024 10:36 AM IJoey DO have personally reviewed and interpreted this examination/study. > Interpreting Provider: Joey Tubbs DO on 05/07/2024 12:46 PM Ben Mccormack MD NM ORDERABLES * GLUCOSE SCREEN - POCT (IP) [facility] (05/07/2024 9:25 AM CDT) Glucose WB/POC 95 70 - 115 mg/dL [facility] POCT TESTING Blood BLOOD SPECIMEN / Unknown 05/07/2024 9:25 AM CDT Ben Mccormack MD LAB - POINT OF CARE ORDERABLES [facility] POCT TESTING [address] [place] [address], [facility] [phone] * CT NECK SOFT TISSUE W CONT (04/17/2024 9:53 AM CDT) Anatomical Region Laterality Modality Head Computed Tomogra phy 04/17/2024 3:28 PM CDT Impressions 04/18/2024 4:54 PM CDT IMPRESSION: 1.Spiculated and mildly lobulated pulmonary nodule at the left lung apex abutting the pleura measures 2.1 x 2.0 x 1.8 cm. Highly suspicious for malignancy, tissue sampling or PET CT scan as well as CT of the chest are recommended for further characterization. 2.There is a 1.1 cm right paratracheal mediastinal lymph node which is suspicious for metastatic disease above pulmonary nodule. 3.Cervical spondylosis, worse at C5-C6 with possible cord compression. MRI of the cervical spine is recommended for further evaluation of possible cord compression. These findings were discussed in detail with Dr Ruel Solo by Dr. Albino Malik via telephone at 04/18/2024 1:16 PM with readback comprehension and verification. ?? The report is dictated by Albino Malik, DO, ??(radiology receptionist) IClay MD have personally reviewed and interpreted this examination/study. > Interpreting Provider: Clay Moss MD on 04/18/2024 4:54 PM Narrative 04/18/2024 4:54 PM CDT PROCEDURE: ??CT NECK SOFT TISSUE W CONT, DATE/TIME OF EXAM: ??04/17/2024 12:47 PM, LOCATION ??[facility] INDICATION: C44.311: Basal cell carcinoma of skin of nose ADDITIONAL CLINICAL INFORMATION: Ordering Provider Reason For Exam: ??BCC of nose, evaluate for bone and/or soft tissue involvement Technologist Note: ??None. Additional: ??None. EXAMINATION: ??Computed tomography (CT) of the neck with contrast TECHNIQUE: CT of the neck was performed 100 intravenous contrast according to standard protocol. COMPARISON: No prior study is available for comparison at the time of this dictation. FINDINGS: Irregular, ulcerated cutaneous lesion involving the left side of the nose and the nasal ala, that is difficult to accurately measure due to its shape however measuring approximately 2.6 cm AP by 0.9 cm TV by 2.2 cm CC, (series 4, image 16, and series 5, image 23), with questionable minimal erosion of the subjacent left nasal bone. Multiple small subcentimeter lymph nodes are noted in both sides of the neck with no evidence of cervical lymphadenopathy. The muscles of the neck appear normal. The cervical internal carotid arteries and internal jugular veins appear normal. Fascial planes are preserved and the deep spaces of the neck appear normal. The nasopharynx, oropharynx, hypopharynx and larynx appear normal. The visualized airway is patent. The visualized portions of the posterior fossa and brain appear normal. There is cervical degenerative disc and joint disease, worse at C5-C6 and C6-C7. At C5-C6: There is diffuse disc bulge/disc osteophyte complex and posterior spurring, resulting in severe spinal canal stenosis, was possible cord compression at this level. At C6-C7 diffuse disc bulge/disc osteophyte complex resulting in at least mild or [id number]-[id number]-[id number] spinal canal stenosis. MRI of the cervical spine is recommended for further evaluation.. The visualized orbits and paranasal sinuses appear normal. The thyroid gland is normal. The patient is a dentulous. Spiculated pulmonary nodule at the left lung apex measuring 2.1 x 2.0 x 1.8 cm. There are emphysematous changes of the visible lungs. There is a 1.1 cm right paratracheal mediastinal lymph node (series 3 image 137). There is mild paranasal sinus disease. The nasal septum to the left. There are small questionable areas of the middle turbinates. Procedure Note Clay Moss MD - 04/18/2024 PROCEDURE: CT NECK SOFT TISSUE W CONT, DATE/TIME OF EXAM: 2:47 PM, LOCATION [facility] INDICATION: C44.311: Basal cell carcinoma of skin of nose ADDITIONAL CLINICAL INFORMATION: Ordering Provider Reason For Exam: BCC of nose, evaluate for boneand/or soft tissue involvement Technologist Note: None. Additional: None. EXAMINATION: Computed tomography (CT) of the neck with contrast TECHNIQUE: CT of the neck was performed 100 intravenous contrastaccording to standard protocol. COMPARISON: No prior study is available for comparison at the time ofthis dictation. FINDINGS: Irregular, ulcerated cutaneous lesion involving the left side of thenose and the nasal ala, that is difficult to accurately measure due to itsshape however measuring approximately 2.6 cm AP by 0.9 cm TV by 2.2 cm CC, (series 4, image 16, and series 5, image 23), with questionable minimal erosion of the subjacent left nasal bone. Multiple small subcentimeter lymph nodes are noted in both sides of the neck with no evidence of cervical lymphadenopathy. The muscles of theneck appear normal. The cervical internal carotid arteries and internaljugular veins appear normal. Fascial planes are preserved and the deep spaces of the neck appear normal. The nasopharynx, oropharynx, hypopharynx andlarynx appear normal. The visualized airway is patent. The visualized portions of the posterior fossa and brain appear normal. There is cervical degenerative disc and joint disease, worse at C5-C6and C6-C7. At C5-C6: There is diffuse disc bulge/disc osteophyte complex and posterior spurring, resulting in severe spinal canal stenosis, waspossible cord compression at this level. At C6-C7 diffuse disc bulge/discosteophyte complex resulting in at least mild or [id number]-wm-noxewatd spinal canal stenosis. MRI of the cervical spine is recommended for furtherevaluation.. The visualized orbits and paranasal sinuses appear normal. The thyroid gland is normal. The patient is a dentulous. Spiculated pulmonary nodule at the left lung apex measuring 2.1 x 2.0 x1.8 cm. There are emphysematous changes of the visible lungs. There is a 1.1cm right paratracheal mediastinal lymph node (series 3 image 137). There is mild paranasal sinus disease. The nasal septum to the left.There are small questionable areas of the middle turbinates. IMPRESSION: 1.Spiculated and mildly lobulated pulmonary nodule at the left lung apex abutting the pleura measures 2.1 x 2.0 x 1.8 cm. Highly suspicious for malignancy, tissue sampling or PET CT scan as well as CT of the chestare recommended for further characterization. 2.There is a 1.1 cm right paratracheal mediastinal lymph node which is suspicious for metastatic disease above pulmonary nodule. 3.Cervical spondylosis, worse at C5-C6 with possible cord compression.MRI of the cervical spine is recommended for further evaluation of possible cord compression. These findings were discussed in detail with Dr Ruel Solo by Dr.Michael Malik via telephone at 04/18/2024 1:16 PM with readback comprehensionand verification. The report is dictated by Albino Malik DO, (radiology receptionist) I, Clay Moss MD have personally reviewed and interpretedthis examination/study. > Interpreting Provider: Clay Moss MD on 04/18/2024 4:54 PM Marlena Ballard MD CT ORDERABLES Care Teams Manager Loan Relationship Specialty Start Date End Date None, Physician [address] [place] [address] PCP - General 04/10/24
--- OUTSIDE RECORDS SUMMARY | 2024-09-24 06:04 | XMS_ITS | Encounter Summary ---
Author Organization [facility] Address [address] [place] [address] Care Team Providers Care Document Processing Specialist Name Role Phone None, Physician Primary Care Provider Unavailabl e Encounter Details Date Type Department Care Team (Latest Contact Info) Description 07/17/2024 Travel Social History Tobacco Use Types Packs/Day Years [...] and heating? Not hard at all 05/23/2024 [facility] [place] of Occupat ional Health - Occupational Stress [...] place to sleep or slept in a intermediate (including now)? 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
--- OUTSIDE RECORDS SUMMARY | 2024-09-24 06:04 | XMS_ITS | Encounter Summary ---
Author Organization [facility] Address [facility] [facility] [address] Care Team Providers Care Game Agent Name Role Phone None, Physician Primary Care Provider Unavailabl e Reason for Visit * Auth/Cert (Routine) Specialty Diagnoses / Procedures Referred By Contac t Referred To Contact Diagnoses Malignant neoplasm of upper lobe of right lung (HCC) Malignant neoplasm of upper lobe of right lung Procedures TN THORACOSCOPY W/LOBECTOMY TN THORACOSCOPY REMOVE SEGMENT THORACOSCOPIC (VATS) LOBECTOMY Referral ID Status Reason Start Date Expiration Date Visits Re quested Visits Authorized [id number] 1 1 Encounter Details Date Type Department Care Team (Late st Contact Info) Description 07/20/2024 4:45 PM CDT Anesthesia Event [facility] [address] [place] [address] Sampson Soto V., DO [address] [facility] [place] [address] Martha Sanders, MARINE BIOLOGIST-GROUP CARE WORKER [address] [place] [address] Anesthesia Record Procedure Summary Procedure Name Responsible Anesthesiologist Anesthesia Start Time Anesthesia Stop Time DIVISION AND INSET PARAMEDIAN FOREHEAD FLAP (Head) Sampson Soto DO 07/20/24 1645 07/20/24 1739 Events Date Time Event Comment 07/20/2024 1640 1645 An Start 1645 Pt In Room 1645 An Start Data 1649 PT Reassessment 1651 Induction 1653 An Intubation 1654 Anes Ready 1659 Time Out Anesthesia part icipated in timeout at the time documented in the record by nursing 1700 Proc Start 1727 Proc Stop 1728 An Emergence 1729 Extubation 1731 ANPTO2 1733 an stop data 1733 Pt out of Room 1739 An Stop 1739 Electnc Sig This record is electronically signed by the providers listed under staff. Meds Name Total ceFAZolin 2,000 mg IVPB 2 g midazolam 2 mg/2mL injection 2 mg lidocaine PF 2% 100 mg fentaNYL 100 mcg/2ml injection 100 mcg phenylephrine 100 mcg/mL syringe 900 mcg propofol 200mg/20mL injection 150 mg ondansetron 4mg/2mL injection 4 mg ePHEDrine injection 20 mg sugammadex 200 mg/2mL injection 200 mg LR (Lactated ringers) 400 mL * Agents Name Insp. N2O Exp. Sevoflurane Exp. N2O O2 Insp. Sevoflurane N2O * Blood No blood administrations on file. Lines, Drains, and Airways Type Details Placement Removal Hemodialysis AV Access (sales order specialist); (DIRECT MAIL COORDINATOR); Fistula; Right Wrist 05/23/24 1627 by Sienna Espinal, rigging loft repairer Tunneled Catheter 01/18/24; 0000; Place 4 months ago per pt; Internal Jugular; Right 01/18/24 0000 by Dina Brown RN Nephrostomy Tube Outside Facility; 05/18/24; 1320; Back, Left 05/18/24 1320 by Aicha Major RN Nephrostomy Tube Outside Facility; 05/18/24; 1321; Back, Right 05/18/24 1321 by Aicha Major RN Peripheral IV Date: 07/17/24; Time: 1042; Orientation: Left, Posterior; Location: Hand; Gauge: 20 G 07/17/24 1042 by Madelin Dunlap, KOKI 07/21/24 1048 by Soheila Santos, KOKI Procedural Site (Incision) 07/17/24; 1520; Left; Chest; Two incisions.; 07/21/24; 1715 07/17/24 1520 by Scarlett Michel, KOKI 07/21/24 1715 by Generic, Auto Release Procedural Site (Incision) 07/20/24; 1712; Medial; Face; 07/21/24; 1715 07/20/24 1712 by Glenis Najera RN 07/21/24 1715 by Generic, Auto Release documented in this encounter Social History Tobacco Use Types Packs/Day Years Used Date Smoking Tobacco: Every Day Cigarettes 1 51 Smokeless Tobacco: Never Comments:Down to less than h snf a pack daily Alcohol Use Standard Drinks/Week [...] and heating? Not hard at all 05/23/2024 [facility] [place] of Occupat ional Health - Occupational Stress [...] place to sleep or slept in a half-way (including now)? No 05/23/2024 Sex and Gender [...] No 07/17/2024 documented as of this encounter Progress Notes * Sampson Soto V., DO - 07/20/2024 6:05 PM CDT ANESTHESIA POSTOP EVALUATION NOTE Procedure: DIVISION AND INSET PARAMEDIAN FOREHEAD FLAP (Head) Andrey Giron is a 64 year old male Patient Vitals for the past 6 hrs: BP Temp Pulse Resp SpO2 Pain Rating Score #1 Pain Scale/Observation Pulse - (SPO2/Cuff) 07/20/24 1337 -- -- -- -- -- 6 N -- 07/20/24 1430 -- -- -- -- -- 0 N -- 07/20/24 1601 -- -- -- -- -- 0 N -- 07/20/24 1612 119/77 98.4 ??F (36.9 ??C) 79 10 -- 0 N 76 bpm 07/20/24 1615 124/71 -- 73 15 90 % -- -- 76 bpm 07/20/24 1620 130/66 -- 77 12 92 % -- -- 79 bpm 07/20/24 1625 -- -- 73 12 90 % -- -- 74 bpm 07/20/24 1630 -- -- 72 12 90 % -- -- 73 bpm 07/20/24 1635 -- -- 72 12 90 % -- -- 73 bpm Anesthesia Type: general ETT Pre-op Diagnosis Codes: * Basal cell carcinoma (BCC), unspecified site [C44.91] Mental Status: awake, alert and oriented Neuro Status: No numbness, tingling or visual disturbances Respiratory Function: natural Cardiac Function: stable Postop Pain: acceptable to the patient Postop Hydration: adequate Postop Nausea: none Assessment: no apparent anesthetic complications, patient tolerated procedure well and no evidence of recall Patient Disposition: Release from Anesthesia Care NOTABLE EVENTS: No notable events documented. * Sampson Soto DO - 07/20/2024 3:59 PM CDT ANESTHESIA PREOPERATIVE EVALUATION NOTE Procedure: DIVISION AND INSET PARAMEDIAN FOREHEAD FLAP (Head) Vitals: Patient Vitals for the past 6 hrs: BP Temp Pulse Resp SpO2 Pain Rating Score #1 07/20/24 1430 -- -- -- -- -- 0 07/20/24 1337 -- -- -- -- -- 6 07/20/24 1200 -- -- -- -- -- 0 07/20/24 1154 165/94 98.3 ??F (36.8 ??C) 80 20 91 % -- LMP: No LMP for male patient. OB Status: unknown ANESTHESIA PRE-EVALUATION NOTE History of Present Illness: Andrey Giron is a 64 yo M with biopsy proven MANISHA adenocarcinoma s/p VATS with MANISHA lingular sparing segmentectomy on 07/17. PMH is significant for L nose BCCa s/p resection/reconstruction, ESRD 2/2 obstructive nephropathy on HD MWF via RUE AVF, HTN, COPD (active 1/2 pack a day smoker, 25 pack yearhx), hep C, anemia (blood transfusion in Spring 2023). Presents for division and insertion of paramedian forehead flap. NKDA Previous Airway Management: ETT Placed: ETT Size: 8 Blade Type: MAC Blade Size: 4 GradeGrade: 1 Mask Airway: Oral Airway Physical Exam: Orientation X3 Airway/Mallampati Score: II Mouth Opening Distance: 3 fingerwidths Neck ROM: full TM Distance: > 3 FB Teeth: poor dentition Heart: normal - S1 S2 Lungs: clear to ausculation bilaterally Abdomen Exam: obese Diagnostic Tests: ECG(s) reviewed: Yes Lab(s) reviewed: Yes. ANESTHESIA PLAN ASA Score: 3 NPO Status: No liquids within 2 hours and No solids for 8 hours Anesthesia Plan: general ETT Planned Induction: intravenous Planned Postop Destination: PACU Anesthetic plan was discussed with: patient Anesthetic Plan discussion was: Consented The patient's procedural Anesthetic Plan was discussed with the resident. BMI, Height, Weight Tobacco History Estimated body mass index is 30.59 kg/m?? as calculated from the following: Height as of this encounter: 1.727 m (5' 8 ). Weight as of this encounter: 91.3 kg (201 lb 3.2 oz). Social History Tobacco Use Smoking Status Every Day Current packs/day: 1.00 Average packs/day: 1 pack/day for 51.0 years (51.0 ttl pk-yrs) Types: Cigarettes Smokeless Tobacco Never Tobacco Comments Down to less than half a pack daily Alcohol History Drug History Social History Substance and Sexual Activity Alcohol Use Not Currently Social History Substance and Sexual Activity Drug Use Never Outpatient Medications: Inpatient Medications: Outpatient Medications Marked as Taking for the 07/17/24 encounter (Hospital Encounter) Medication Sig Last Dose acetaminophen Take 1 (one) tablet by mouth every 8 hours as needed Past Week diphenhydrAMINE Take 25 (twenty five) mg by mouth every 6 hours as needed 07/16/2024 at 2100 finasteride Take 1 (one) tablet by mouth once daily 07/17/2024 at 0700 oxyCODONE (immediate release) Take 1 (one) tablet by mouth every 4 hours as needed Past Week polyethylene glycol 3350 Take by mouth once daily Past Week sevelamer Take 2 (two) tablets by mouth 3 times daily with meals 07/16/2024 at 1700 tamsulosin Take 1 (one) capsule by mouth once daily 07/16/2024 at 0800 Current Facility-Administered Medications Medication Dose Last Admin acetaminophen 1,000 mg 1,000 mg at 07/20/24 1337 acetaminophen 650 mg finasteride 5 mg 5 mg at 07/20/24 0852 gabapentin 100 mg 100 mg at 07/20/24 1338 guaiFENesin ER 12hr 600 mg 600 mg at 07/20/24 0852 methocarbamol 750 mg ondansetron (disintegrating) 4 mg 4 mg at 07/19/24 1736 Or ondansetron 4 mg oxyCODONE (immediate release) 5 mg 5 mg at 07/18/24 1306 Or oxyCODONE (immediate release) 10 mg 10 mg at 07/18/242022 oxyCODONE (immediate release) 5 mg Or oxyCODONE (immediate release) 10 mg 10 mg at 07/19/24 0846 polyethylene glycol 3350 17 g sevelamer carbonate 800 mg 800 mg at 07/19/24 1634 tamsulosin 0.4 mg 0.4 mg at 07/20/24 0852 Allergies: No Known Allergies Relevant Problems Problem List: Patient Active Problem List Diagnosis Date Noted Malignant neoplasm of upper lobe of right lung (HCC) 07/17/2024 Priority: Not Prioritized Basal cell carcinoma (BCC) of left nasal sidewall 05/22/2024 Priority: Not Prioritized Medical History: Past Medical History: Diagnosis Date Basal cell carcinoma ESRD on dialysis (HCC) M/W/F History of blood transfusion Surgical History: Past Surgical History: Procedure Laterality Date BRONCHOSCOPY [...] rhinectomy VASCULAR PROCEDURE/SURGERY 04/12/2024 CREATION ARTERIOVENOUS FISTULA TEST FIXTURE ASSEMBLER Status: No LMP for male patient. unknown OB History No obstetric history on file. Covid Vaccine: Lab Results: Recent Labs Base Name 05/07/24 0925 [id number] Recent Labs Component Name 07/20/24 0155 WBC 7.9 RBC 3.33* HCT 33.2* HGB 10.8* PLTCOUNT 180 MCV 99.7* MCH 32.4 MCHC 32.5 MPV 9.7 Recent Labs Component Name 07/17/24 1041 ABORH O POS ABSCG NEG Recent Labs Component Name 07/20/24 015 POTASSIUM 4.0 CALCIUM 9.2 CO2 23 GLUCOSE 116* BUN 51* CREATININE 9.06* Recent Labs Component Name 07/20/24 015 MAGNESIUM 2.2 Recent Labs Component Name 07/20/24 0155 PHOS 5.6* No results found for requested labs within last 120 days. Recent Labs Result Component Current Result Anion Gap 15 (07/20/2024) eGFR by CKD-EPI 6 (L) (07/20/2024) Sampson Soto DO Department of Anesthesiology and Critical Care 07/20/24 4:39 PM documented in this encounter Miscellaneous Notes * Anesthesia Transfer of Care - Thiago Lao Anes Asst - 07/20/2024 5:41 PM CDT ANESTHESIA TRANSFER OF CARE NOTE Today's Date: 07/20/2024 Date of : 1960 Patient: Andrey Giron Procedure(s): DIVISION AND INSET PARAMEDIAN FOREHEAD FLAP Surgeon(s): Primary: Ritesh Mensah MD Resident - Assisting: Ernst Rivera MD Preop Diagnosis: Pre-op Diagnois: * Basal cell carcinoma (BCC), unspecified site [C44.91] Pre-op Meds (From admission, onward) Start Stop Status Route Frequency Ordered 07/17/24 1830 acetaminophen (Tylenol) tablet 1,000 mg -- Dispensed PO EVERY 6 HOURS 07/17/24 1636 07/17/24 1851 acetaminophen (Tylenol) tablet 650 mg 07/17/25 1850 Verified PO EVERY 6 HOURS PRN 07/17/24 1851 07/17/24 1715 finasteride (Proscar) tablet 5 mg Note to Pharmacy: OP sig: Take 1 (one) tablet by mouth once daily -- Dispensed PO DAILY 07/17/24 1637 07/17/24 2100 gabapentin (Neurontin) capsule 100 mg -- Dispensed PO 3 TIMES DAILY 07/17/24 1636 07/18/24 1000 guaiFENesin ER 12hr (Mucinex) tablet 600 mg -- Dispensed PO EVERY 12 HOURS 07/18/24 0917 07/17/24 1851 methocarbamol (Robaxin) tablet 750 mg -- Dispensed PO EVERY 6 HOURS PRN 07/17/24 1851 07/17/24 1635 ondansetron (disintegrating) (Zofran ODT) tablet 4 mg Placed in Or Linked Group -- Dispensed PO EVERY 6 HOURS PRN 07/17/24 1636 07/17/24 163 ondansetron (Zofran) injection 4 mg Placed in Or Linked Group -- Verified IV EVERY 6 HOURS PRN 07/17/24 1636 07/17/24 163 oxyCODONE (immediate release) (Roxicodone) tablet 10 mg Placed in Or Linked Group -- Dispensed PO EVERY 4 HOURS PRN 07/17/24 16307/17/24 185 oxyCODONE (immediate release) (Roxicodone) tablet 10 mg Placed in Or Linked Group -- Dispensed PO EVERY 4 HOURS PRN 07/17/24 18507/17/24 163 oxyCODONE (immediate release) (Roxicodone) tablet 5 mg Placed in Or Linked Group -- Dispensed PO EVERY 4 HOURS PRN 07/17/24 16307/17/24 185 oxyCODONE (immediate release) (Roxicodone) tablet 5 mg Placed in Or Linked Group -- Verified PO EVERY 4 HOURS PRN 07/17/24 18507/17/24 171 polyethylene glycol 3350 (Miralax) packet 17 g Note to Pharmacy: OP sig: Take by mouth once daily -- Dispensed PO DAILY 07/17/24 1637 07/17/24 1800 sevelamer carbonate (Renvela) tablet 800 mg -- Dispensed PO 3 TIMES DAILY WITH MEALS 07/17/24 16307/17/24 171 tamsulosin (Flomax) capsule 0.4 mg Note to Pharmacy: OP sig: Take 1 (one) capsule by mouth once daily -- Dispensed PO DAILY 07/17/24 163 Post-op Diagnosis: * Basal cell carcinoma (BCC), unspecified site [C44.91] . No Known Allergies Vitals: Patient Vitals for the past 3 hrs: BP Temp Pulse Resp SpO2 Pain Rating Score #1 07/20/24 1635 -- -- 72 12 90 % -- 07/20/24 1630 -- -- 72 12 90 % -- 07/20/24 1625 -- -- 73 12 90 % -- 07/20/24 1620 130/66 -- 77 12 92 % -- 07/20/24 1615 124/71 -- 73 15 90 % -- 07/20/24 1612 119/77 98.4 ??F (36.9 ??C) 79 10 -- 0 07/20/24 1601 -- -- -- -- -- 0 Lines, Drains, and Airways Type Details Placement Removal Nephrostomy Tube Outside Facility; 05/18/24; 1320; Back, Left 05/18/24 1320 by Aicha Major, RN Nephrostomy Tube Outside Facility; 05/18/24; 1321; Back, Right 05/18/24 1321 by Aicha Major, RN Peripheral IV Date: 07/17/24; Time: 1042; Orientation: Left, Posterior; Location: Hand; Gauge: 20 G1 1042 by Madelin Dunlap RN Intraprocedure I/O Totals Intake LR (Lactated ringers) 400.00 mL Total Intake 400 mL Patient Transfer Location: PACU Transport Airway: spontaneous respirations and supplemental O2 Transport Monitoring: continuous pulse oximetry Complications: None Handoff Given? Yes Checklist or Protocol - The lindsay handoff elements that must be included in the transfer of care checklist include: 1. Identification of patient. 2. Identification of responsible practitioner (PACU nurse or advanced practitioner). 3. Discussion of pertinent medical history. 4. Discussion of the surgical/procedure course (procedure, reason for surgery, procedure performed). 5. Intraoperative anesthetic management and issue/concerns. 6. Expectations/Plans for the early post-procedure period. 7. Opportunity for questions and acknowledgement of understanding of report from the receiving PACUteam. 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 TEAM MEMBER Office Visit [facility] - ENT [address] [place] [phone] Ritesh Mensah MD [address] [place] [address] [place] [address] documented as of this encounter Visit Diagnoses Not on filedocumented in this encounter Administered Medications Inactive Administered Medications - up to 3 most recent administrations Medication Order MAR Action Action Date Dose Rate Site ceFAZolin (Ancef) 2,000 mg in 50 mL IVPB Intravenous, PRN, Starting on Tue07/20/24 at 1702, Until Tue07/20/24 at 1739, Anesthesia Intra-op $ Given 07/20/2024 5:02 PM CDT 2 g ePHEDrine 50 MG/ML injection Intravenous, PRN, Starting on Tue07/20/24 at 1708, Until Tue07/20/24 at 1739, Anesthesia Intra-op $ Given 07/20/2024 5:13 PM CDT 10 mg $ Given 07/20/2024 5:08 PM CDT 10 mg fentaNYL (PF) (Sublimaze) injection Intravenous, PRN, Starting on Tue07/20/24 at 1651, Until Tue07/20/24 at 1739, Anesthesia Intra-op $ Given 07/20/2024 4:51 PM CDT 100 mcg lactated ringers infusion Intravenous, CONTINUOUS PRN, Starting on Tue07/20/24 at 1640, Until Tue07/20/24 at 1739, Anesthesia Intra-op $ New Bag/Syringe 07/20/2024 4:40 PM CDT lidocaine HCl (PF) (Xylocaine MPF) 2 % injection Infiltration, PRN, Starting on Tue07/20/24 at 1651, Until Tue07/20/24 at 1739, Anesthesia Intra-op $ Given 07/20/2024 4:51 PM CDT 100 mg midazolam (Versed) injection Intravenous, PRN, Starting on Tue07/20/24 at 1642, Until Tue07/20/24 at 1739, Anesthesia Intra-op $ Given 07/20/2024 4:42 PM CDT 2 mg ondansetron (Zofran) injection Intravenous, PRN, Starting on Tue07/20/24 at 1717, Until Tue07/20/24 at 1739, Anesthesia Intra-op $ Given 07/20/2024 5:17 PM CDT 4 mg phenylephrine 100 mcg/mL injection Intravenous, PRN, Starting on Tue07/20/24 at 1659, Until Tue07/20/24 at 1739, Anesthesia Intra-op $ Given 07/20/2024 5:13 PM CDT 200 mcg $ Given 07/20/2024 5:10 PM CDT 200 mcg $ Given 07/20/2024 5:04 PM CDT 300 mcg propofol (Diprivan) injection Intravenous, PRN, Starting on Tue07/20/24 at 1651, Until Tue07/20/24 at 1739, Anesthesia Intra-op $ Given 07/20/2024 4:51 PM CDT 150 mg sugammadex (Bridion) injection Intravenous, PRN, Starting on Tue07/20/24 at 1725, Until Tue07/20/24 at 1739, Anesthesia Intra-op $ Given 07/20/2024 5:25 PM CDT 200 mg documented in this encounter Care Teams Game Agent Relationship Specialty Start Date End Date None, Physician [address] [place] [address] PCP - General 04/10/24 documented as of this encounter
--- OUTSIDE RECORDS SUMMARY | 2024-09-24 06:04 | XMS_ITS | Encounter Summary ---
Author Organization [facility] Address [address] [place] [address] Care Team Providers Care Reverse Unit Operator Fisherman Name Role Phone None, Physician Primary Care Provider Unavailabl e Reason for Visit * Auth/Cert (Routine) Specialty Diagnoses / Procedures Referred By Contac t Referred To Contact Diagnoses Malignant neoplasm of upper lobe of right lung (HCC) Malignant neoplasm of upper lobe of right lung Procedures MI THORACOSCOPY W/LOBECTOMY MI THORACOSCOPY REMOVE SEGMENT THORACOSCOPIC (VATS) LOBECTOMY Referral ID Status Reason Start Date Expiration Date Visits Re quested Visits Authorized [id number] 1 1 Encounter Details Date Type Department Care Team (Late st Contact Info) Description 07/17/2024 2:36 PM CDT Anesthesia Event [facility] [address] [place] [phone] Jesse Sauer MD [address] [place] [phone] Sunny Baeza DO [address] [facility] [place] [phone] Anesthesia Record Procedure Summary Procedure Name Responsible Anesthesiologist Anesthesia Start Time Anesthesia Stop Time Video-assisted thoracoscopic Left upper lobe Lingular sparing Segmentectomy (Left: Chest) Jesse Sauer MD 07/17/24 1436 07/17/24 1647 Events Date Time Event Comment 07/17/2024 1436 An Start 1438 Pt In Room 1438 An Start Data 1446 PT Reassessment 1446 Induction 1448 An Intubation 1453 An Intubation Used cook exch itz catheter to swap out single lumen OETT to double lumen OETT 1519 Time Out Anesthesia part icipated in timeout at the time documented in the record by nursing 1520 Proc Start 1604 An Two-Lung Vent 1612 Local Infiltration by Asiyao n 1635 Proc Stop 1636 An Emergence 1642 Extubation 1644 ANPTO2 1644 an stop data 1644 Pt out of Room 1647 An Stop Meds Name Total ceFAZolin 2,000 mg IVPB 2 g midazolam 2 mg/2mL injection 2 mg fentaNYL 100 mcg/2ml injection 100 mcg lidocaine PF 2% 100 mg propofol 200mg/20mL injection 200 mg rocuronium 50 mg/5 mL injection 110 mg dexamethasone 10 mg/ml PF injection 4 mg ondansetron 4mg/2mL injection 4 mg sugammadex 200 mg/2mL injection 250 mg HYDROmorphone (Dilaudid) 2 mg/ml injecti on 1.2 mg lactated ringers infusion 600 mL * Agents Name Insp. N2O Exp. Sevoflurane Exp. N2O O2 Insp. Sevoflurane * Blood No blood administrations on file. 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); Fis valerie; Right Wrist 05/23/24 1627 by Sienna Espinal, veterans contact representative Tunneled Catheter 01/18/24; 0000; Place 4 months ago per pt; Internal Jugular; Right 01/18/24 0000 by Dina Brown RN Nephrostomy Tube Outside Facility; 05/18/24; 1320; Back, Left 05/18/24 1320 by Aicha Major RN Nephrostomy Tube Outside Facility; 05/18/24; 1321; Back, Right 05/18/24 1321 by Aicha Major RN Peripheral IV Date: 07/17/24; Time : 1042; Orientation: Left, Posterior; Location: Hand; Gauge: 20 G 07/17/24 1042 by Madelin Dunlap RN 07/21/24 1048 by Soheila Santos, KOKI ETT Date: 07/17/24; Time : 1453; Placed By: Sunny Baeza DO; Vent: difficult mask; Induction: Standard IV; Blade Type: Mati; Blade Size: 4; Laryngoscopy View: Grade 1 (full cords); Intubation Adjuncts: Fiberoptic, Video Laryngoscope, Eschmann introducer; Placement: Oral; Tube Type: Cuffed-inflated; Tube Size(FR): 27 FR; Depth of Insertion: 27 CM; Measured From: lips; Attempts: 1; Cuff Infated: Air; Verified By: Direct visualization, Bilateral breath sounds, Chest Auscultation, CO2 Monitor 07/17/24 1453 by Sunny Baeza DO 07/17/24 1642 by Sunny Baeza DO Procedural Site (Incision) 07/17/24; 1520; Left; Chest; Two incisions.; 07/21/24; 1715 07/17/24 1520 by Scarlett Michel RN 07/21/24 1715 by Generic, Auto Release Chest Tube 07/17/24; 1603; David Yuan Resident.; #1; Coaxial; Redax.; [id number]; [id number]; 28 FR; Left; Chest; (Dry suction.); General Anesthesia; 07/19/24; 09; Nancie Echols APRN-DIPLOMATIC OFFICER 07/17/24 160 by Scarlett Michel RN 07/19/24 09 by Santiago Hanks RN documented in this encounter Social History Tobacco [...] and heating? Not hard at all 05/23/2024 [facility] [place] [facility] Occupat ional Health - Occupational Stress [...] place to sleep or slept in a longterm (including now)? No 05/23/2024 Sex and Gender [...] No 05/23/2024 documented as of this encounter Progress Notes * Jesse Sauer MD - 07/17/2024 5:34 PM CDT ANESTHESIA POSTOP EVALUATION NOTE Procedure: Video-assisted thoracoscopic Left upper lobe Lingular sparing Segmentectomy (Left: Chest) Andrey Giron is a 64 year old male Patient Vitals for the past 6 hrs: BP Temp Pulse Resp SpO2 Pain Rating Score #1 Pain Scale/Observation Pulse - (SPO2/Cuff) 07/17/24 1145 129/78 -- 79 -- 93 % 3 N 80 bpm 07/17/24 1200 139/88 -- 83 -- 95 % -- -- 84 bpm 07/17/24 1240 -- -- -- -- -- 0 B -- 07/17/24 1322 -- -- -- -- -- 0 B -- 07/17/24 1415 -- -- -- -- -- 0 B -- 07/17/24 1650 (!) 141/101 97.2 ??F (36.2 ??C) (!) 116 17 94 % 9 N -- 07/17/24 1655 151/80 -- (!) 116 20 97 % -- -- -- 07/17/24 1656 136/85 -- (!) 112 21 97 % -- -- -- 07/17/24 1700 142/88 -- (!) 112 18 96 % -- -- -- 07/17/24 1705 137/78 -- (!) 114 9 98 % 8 N -- 07/17/24 1710 149/82 -- (!) 111 10 97 % -- -- -- 07/17/24 1715 131/64 -- 105 (!) 8 95 % -- -- -- 07/17/24 1720 133/72 -- 104 15 96 % -- -- -- 07/17/24 1725 140/81 -- (!) 113 13 95 % -- -- -- 07/17/24 1730 -- -- 105 11 92 % -- -- -- Anesthesia Type: general ETT Pre-op Diagnosis Codes: * Malignant neoplasm of upper lobe of right lung (HCC) [C34.11] Mental Status: awake Neuro Status: No numbness, tingling or visual disturbances Respiratory Function: natural Cardiac Function: stable Postop Pain: acceptable to the patient Postop Hydration: adequate Postop Nausea: none Assessment: no apparent anesthetic complications Patient Disposition: Release from Anesthesia Care NOTABLE EVENTS: No notable events documented. * Nohelia Chatman DO - 07/17/2024 8:36 AM CDT ANESTHESIA PREOPERATIVE EVALUATION NOTE Procedure: Video-assisted thoracoscopic Left upper lobe Lingular sparing Segmentectomy (Left: Chest) Vitals: No data found. LMP: No LMP for male patient. OB Status: unknown ANESTHESIA PRE-EVALUATION NOTE History of Present Illness: Andrey Giron is a 64 yo M with biopsy proven MANISHA adenocarcinoma scheduled for VATS with MANISHA lingular sparing segmentectomy. 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 NKDA Previous Airway Management: ETT Placed: ETT Size: 8 Blade Type: MAC Blade Size: 4 GradeGrade: 1 Mask Airway: Oral Airway The patient is a current smoker. Physical Exam: Orientation X3 Airway/Mallampati Score: II Mouth Opening Distance: 3 fingerwidths Neck ROM: full TM Distance: > 3 FB Teeth: poor dentition Heart: normal - S1 S2 Lungs: clear to ausculation bilaterally Abdomen Exam: obese ANESTHESIA PLAN ASA Score: 3 NPO Status: No liquids within 2 hours and No solids for 8 hours Anesthesia Plan: general ETT Planned Induction: intravenous Planned Postop Destination: PACU Anesthetic plan was discussed with: patient Anesthetic Plan discussion was: Consented The patient's procedural Anesthetic Plan was discussed with the resident. BMI, Height, Weight Tobacco History Estimated body mass index is 31.32 kg/m?? as calculated from the following: Height as of 06/26/24: 1.727 m (5' 8 ). Weight as of 06/26/24: 93.4 kg (206 lb). Social History Tobacco Use Smoking Status Every Day ??? Current packs/day: 1.00 ??? Average packs/day: 1 pack/day for 51.0 years (51.0 ttl pk-yrs) ??? Types: Cigarettes Smokeless Tobacco Never Tobacco Comments Down to less than half a pack daily Alcohol History Drug History Social History Substance and Sexual Activity Alcohol Use Not Currently Social History Substance and Sexual Activity Drug Use Never Outpatient Medications: Inpatient Medications: No outpatient medications have been marked as taking for the 07/17/24 encounter (Hospital Encounter). No current facility-administered medications for this encounter. Allergies: No Known Allergies Relevant Problems Problem List: Patient Active Problem List Diagnosis Date Noted ??? Basal cell carcinoma (BCC) of left nasal sidewall 05/22/2024 Priority: Not Prioritized Medical History: Past Medical History: Diagnosis Date ??? Basal cell carcinoma ??? ESRD on dialysis (HCC) M/W/F ??? History of blood transfusion Surgical History: Past Surgical History: Procedure Laterality Date ??? BRONCHOSCOPY N/A 05/18/2024 N/A; BRONCHOSCOPY WITH ROBOT ASSIST, BRONCHOALVEOLAR LAVAGE, TRANSBRONCHIAL BIOPSIES, AND BRUSHINGS ??? INSERTION DIALYSIS CATHETER Right tunneled IJ ??? PLASTIC SURGERY PROCEDURE Left 05/23/2024 Left; RECONSTRUCTION LEFT NASAL/CHEEK DEFECT, WOUND DEBRIDEMENT, SKIN GRAFT ??? PLASTIC SURGERY PROCEDURE N/A 05/23/2024 N/A; FOREHEAD FLAP ??? Rhinoplasty Left 05/22/2024 Left; Left partial rhinectomy ??? 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 unknown OB History No obstetric history on file. Covid Vaccine: Lab Results: Recent Labs Base Name 05/07/24 0925 [id number] 95 Recent Labs Component Name 05/22/24 1454 WBC 8.1 RBC 3.53* HCT 33.6* HGB 11.5* PLTCOUNT 198 MCV 95.2 MCH 32.6 MCHC 34.2 MPV 9.6 Recent Labs Component Name 05/22/24 1511 05/22/24 1454 ABORH O POS O POS ABSCG - NEG Recent Labs Component Name 05/23/24 0724 POTASSIUM 4.4 CALCIUM 8.6 CO2 21* GLUCOSE 108 BUN 59* CREATININE 10.53* Recent Labs Component Name 05/23/24 0724 MAGNESIUM 2.2 Recent Labs Component Name 05/23/24 0724 PHOS 6.9* No results found for requested labs within last 120 days. Recent Labs Result Component Current Result Anion Gap 12 (05/23/2024) eGFR by CKD-EPI 5 (L) (05/23/2024) documented in this encounter Procedure Notes * Sunny Baeza DO - 07/17/2024 3:21 PM CDTAssociated Order(s): ETT Placement Endotracheal Tube Placement: Patient Location: OR. Intubation Event Date/Time: 07/17/2024 2:53 PM Procedure: intubation (12427) Procedure Section: Sedation: under general anesthesia. Indications for Airway Management: anesthesia Procedure pretreatments used? No Induction: standard IV Patient Position: supine Mask Ventilation: difficult (eyes sunken, nasal ridge [...] CO2 monitor and bronchoscope Tube secured with: adhesive tape. Dentition unchanged? Yes Difficult Airway? No. Procedure Start Time: 07/17/2024 2:53 PM. Staff Section Anesthesia Provider: Sunny Baeza DO, Performed the procedure Provider #1: Jesse Sauer MD. Additional Comments: Unable to bag mask due to facial/nasal anatomy, intubated with 8.0 ETT and ventilated, used cook exchange catheter to swap out to 27fr left sided ZAYDA. Placement confirmed via fiberoptic. documented in this encounter Miscellaneous Notes * Anesthesia Transfer of Care - Sunny Baeza DO - 07/17/2024 4:54 PM CDT ANESTHESIA TRANSFER OF CARE NOTE Today's Date: 07/17/2024 Date of : 1960 Patient: Andrey Giron Procedure(s): Video-assisted thoracoscopic Left upper lobe Lingular sparing Segmentectomy Surgeon(s): Primary: Augustine Jimenez MD Resident - Assisting: Sherry Yuan DO Preop Diagnosis: Pre-op Diagnois: * Malignant neoplasm of upper lobe of right lung (HCC) [C34.11] Pre-op Meds (From admission, onward) Start Stop Status Route Frequency Ordered 07/17/24 1018 0.9% NaCl injection 1-10 mL Placed in And Linked Group -- Dispensed IK PRN 07/17/24 1019 07/17/24 1400 0.9% NaCl injection 3 mL Placed in And Linked Group -- Dispensed IK EVERY 8 HOURS 07/17/24 1019 07/17/24 1030 acetaminophen (Tylenol) tablet 1,000 mg 07/17/24 1042 Completed PO PRE-OP ONCE 07/17/24 1019 07/17/24 1800 acetaminophen (Tylenol) tablet 1,000 mg -- Sent PO EVERY 6 HOURS 07/17/24 1636 07/17/24 1612 albuterol-ipratropium (Duo-Neb) nebulizer solution 3 mL -- Verified IN POST-OP MULTIPLE 07/17/24 1612 07/17/24 2000 albuterol-ipratropium (Duo-Neb) nebulizer solution 3 mL 07/22/24 1959 Sent IN EVERY 4 HOURS 07/17/24 1621 07/17/24 1030 BUPivacaine liposome (Exparel) 1.3 % injection 266 mg 07/17/24 1612 Completed INFILTRATION INTRA-OP ONCE 07/17/24 1019 07/17/24 1200 ceFAZolin (Ancef) 2 g in sterile water (PF) 20 mL syringe -- Verified IV PRE-OP MULTIPLE 07/17/24 1019 07/17/24 1636 cyclobenzaprine (Flexeril) tablet 10 mg -- Sent PO 3 TIMES DAILY PRN 07/17/24 1636 07/17/24 1612 diphenhydrAMINE (Benadryl) injection 25 mg -- Verified IV ONCE PRN 07/17/24 1612 07/17/24 1612 fentaNYL (PF) (Sublimaze) injection 25 mcg -- Verified IV EVERY 10 MIN PRN 07/17/24 1612 07/17/24 1612 fentaNYL (PF) (Sublimaze) injection 50 mcg -- Verified IV EVERY 10 MIN PRN 07/17/24 1612 07/17/24 1715 finasteride (Proscar) tablet 5 mg Note to Pharmacy: OP sig: Take 1 (one) tablet by mouth once daily -- Sent PO DAILY 07/17/24 1637 07/17/24 2100 gabapentin (Neurontin) capsule 100 mg -- Sent PO 3 TIMES DAILY 07/17/24 1636 07/17/24 1612 HYDROmorphone (Dilaudid) injection 0.5 mg -- Verified IV EVERY 10 MIN PRN 07/17/24 1612 07/17/24 1612 labetalol (Normodyne; Trandate) injection 5 mg -- Verified IV POST-OP MULTIPLE 07/17/24 1612 07/17/24 1030 lactated ringers infusion -- Dispensed IV CONTINUOUS 07/17/24 1019 07/17/24 1030 lactated ringers infusion -- Dispensed IV PRE-OP CONTINUOUS 07/17/24 1019 07/17/24 1615 lactated ringers infusion -- Dispensed IV CONTINUOUS 07/17/24 1612 07/17/24 1715 lactated ringers infusion -- Sent IV CONTINUOUS 07/17/24 1636 07/17/24 1612 metoclopramide (Reglan) injection 10 mg -- Verified IV ONCE PRN 07/17/24 1612 07/17/24 1612 naloxone (Narcan) injection 0.04 mg -- Verified IV POST-OP MULTIPLE 07/17/24 1612 07/17/24 1635 ondansetron (disintegrating) (Zofran ODT) tablet 4 mg Placed in Or Linked Group -- Sent PO EVERY 6 HOURS PRN 07/17/24 1636 07/17/24 1635 ondansetron (Zofran) injection 4 mg Placed in Or Linked Group -- Sent IV EVERY 6 HOURS PRN 07/17/24 1636 07/17/24 1635 oxyCODONE (immediate release) (Roxicodone) tablet 10 mg Placed in Or Linked Group -- Sent PO EVERY 4 HOURS PRN 07/17/24 1636 07/17/24 1635 oxyCODONE (immediate release) (Roxicodone) tablet 5 mg Placed in Or Linked Group -- Sent PO EVERY 4 HOURS PRN 07/17/24 1636 07/17/24 1715 polyethylene glycol 3350 (Miralax) packet 17 g Note to Pharmacy: OP sig: Take by mouth once daily -- Sent PO DAILY 07/17/24 1637 07/17/24 1612 prochlorperazine (Compazine) injection 10 mg -- Verified IV ONCE PRN 07/17/24 1612 07/17/24 1800 sevelamer carbonate (Renvela) tablet 800 mg -- Sent PO 3 TIMES DAILY WITH MEALS 07/17/24 1637 07/17/24 1715 tamsulosin (Flomax) capsule 0.4 mg Note to Pharmacy: OP sig: Take 1 (one) capsule by mouth once daily -- Sent PO DAILY 07/17/24 1637 Post-op Diagnosis: * Malignant neoplasm of upper lobe of left lung (HCC) [C34.12] . No Known Allergies Vitals: Patient Vitals for the past 3 hrs: Pain Rating Score #1 07/17/24 1415 0 Lines, Drains, and Airways Type Details Placement Removal Nephrostomy Tube Outside Facility; 05/18/24; 1320; Back, Left 05/18/24 1320 by Aicha Major, KOKI Nephrostomy Tube Outside Facility; 05/18/24; 1321; Back, Right 05/18/24 1321 by Aicha Major, OKKI Peripheral IV Date: 07/17/24; Time: 1042; Orientation: Left, Posterior; Location: Hand; Gauge: 20 G1 1042 by Madelin Dunlap RN ETT Date: 07/17/24; Time: 1453; Placed By: Sunny Baeza DO; Vent: difficult mask; Induction: Standard IV; Blade Type: Mati; Blade Size: 4; Laryngoscopy View: Grade 1 (full cords); Intubation Adjuncts: Fiberoptic, Video Laryngoscope, Eschmann introducer; Placement: Oral; Tube Type: Cuffed-inflated; Tube Size(FR): 27 FR; Depth of Insertion: 27 CM; Measured From: lips; Attempts: 1; Cuff Infated: Air; Verified By: Direct visualization, Bilateral breath sounds, Chest Auscultation, CO2 Monitor 07/17/24 1453 by Sunny Baeza DO 07/17/24 1642 by Sunny Baeza DO Chest Tube 07/17/24; 1603; Sherry Yuan Resident.; #1; Coaxial; Redax.; [id number]; [id number]; 28 FR; Left; Chest; (Dry suction.); General Anesthesia 07/17/24 1603 by Scarlett Michel RN Intraprocedure I/O Totals None Patient Transfer Location: PACU Transport Airway: supplemental O2 and spontaneous respirations Transport Monitoring: heart rate and continuous pulse oximetry Complications: None Handoff Given? [...] understanding of report from the receiving PACUteam. Sunny Baeza DO documented in this encounter Plan of Treatment Upcoming Encounters Date Type Department Care Team (Late st Contact Info) Description 10/16/2024 1:30 PM ESTIMATOR BINDING Office Visit [facility] [address] [place] [phone] Ritesh Mensah MD [address] [place] [address] [place] [address] documented as of this encounter Procedures Procedure Name Priority Date/Time Associated Diagnosis Comments ENDOTRACHEAL TUBE NOTE Routine 07/17/2024 3:21 PM CDT documented in this encounter Results * ETT LINE PERFORMABLE (07/17/2024 3:21 PM CDT) Narrative Sunny Baeza DO - 07/17/2024 3:21 PM CDT Sunny Baeza DO ? 07/17/2024 ??3:26 PM Endotracheal Tube Placement: ? Patient Location: OR. Intubation Event Date/Time: ??07/17/2024 2:53 PM Procedure: intubation (75639) Procedure Section: ?? Sedation: under general anesthesia. [...] intubated with 8.0 ETT and ventilated, used Ideal Implant exchange catheter to swap out to 27fr left sided ZAYDA. Placement confirmed via fiberoptic. Jesse Sauer MD GENERAL ANESTHESIA O RDERABLES documented in this encounter Visit Diagnoses Not on filedocumented in this encounter Administered Medications Inactive Administered Medications - up to 3 most recent administrations Medication Order MAR Action Action Date Dose Rate Site ceFAZolin (Ancef) 2,000 mg in 50 mL IVPB Intravenous, PRN, Starting on Tue07/17/24 at 1517, Until Tue07/17/24 at 1654, Anesthesia Intra-op $ Given 07/17/2024 3:17 PM CDT 2 g dexAMETHasone Sod Phosphate PF injection Intravenous, PRN, Starting on Tue07/17/24 at 1517, Until Tue07/17/24 at 1654, Anesthesia Intra-op $ Given 07/17/2024 3:17 PM CDT 4 mg fentaNYL (PF) (Sublimaze) injection Intravenous, PRN, Starting on Tue07/17/24 at 1517, Until Tue07/17/24 at 1654, Anesthesia Intra-op $ Given 07/17/2024 3:17 PM CDT 100 mcg HYDROmorphone (Dilaudid) injection Intravenous, PRN, Starting on Tue07/17/24 at 1531, Until Tue07/17/24 at 1654, Anesthesia Intra-op $ Given 07/17/2024 3:54 PM CDT 0.4 mg $ Given 07/17/2024 3:37 PM CDT 0.4 mg $ Given 07/17/2024 3:31 PM CDT 0.4 mg lactated ringers infusion at 20 mL/hr, Intravenous, PRE-OP CONTINUOUS, Starting on Tue07/17/24 at 1030, Until Tue07/17/24 at 1701, Pre-op Restarted 07/17/2024 4:44 PM CDT $ New Bag/Syringe 07/17/2024 2:38 PM CDT 20 mL/ hr $ New Bag/Syringe 07/17/2024 10:43 AM CDT 20 mL /hr lidocaine HCl (PF) (Xylocaine MPF) 2 % injection Intravenous, PRN, Starting on Tue07/17/24 at 1446, Until Tue07/17/24 at 1654, Anesthesia Intra-op $ Given 07/17/2024 2:46 PM CDT 100 mg midazolam (Versed) injection Intravenous, PRN, Starting on Tue07/17/24 at 1436, Until Tue07/17/24 at 1654, Anesthesia Intra-op $ Given 07/17/2024 2:36 PM CDT 2 mg ondansetron (Zofran) injection Intravenous, PRN, Starting on Tue07/17/24 at 1626, Until Tue07/17/24 at 1655, Anesthesia Intra-op $ Given 07/17/2024 4:26 PM CDT 4 mg propofol (Diprivan) injection Intravenous, PRN, Starting on Tue07/17/24 at 1446, Until Tue07/17/24 at 1654, Anesthesia Intra-op $ Given 07/17/2024 2:46 PM CDT 200 mg rocuronium (Zemuron) injection Intravenous, PRN, Starting on Tue07/17/24 at 1447, Until Tue07/17/24 at 1654, Anesthesia Intra-op $ Given 07/17/2024 4:06 PM CDT 10 mg $ Given 07/17/2024 3:35 PM CDT 20 mg $ Given 07/17/2024 2:47 PM CDT 80 mg sugammadex (Bridion) injection Intravenous, PRN, Starting on Tue07/17/24 at 1622, Until Tue07/17/24 at 1654, Anesthesia Intra-op $ Given 07/17/2024 4:34 PM CDT 50 mg $ Given 07/17/2024 4:22 PM CDT 200 mg documented in this encounter Care Teams Reverse Unit Operator Fisherman Relationship Specialty Start Date End Date None, Physician [address] [place] [address] PCP - General 04/10/24 documented as of this encounter
--- OUTSIDE RECORDS SUMMARY | 2024-09-24 06:04 | XMS_ITS | Encounter Summary ---
Author Organization [facility] Address [address] [place] [address] Care Team Providers Care Embedded Systems Software Engineer Name Role Phone None, Physician Primary Care Provider Unavailabl e Reason for Visit * Auth/Cert (Routine) Specialty Diagnoses / Procedures Referred By Contac t Referred To Contact Diagnoses Malignant neoplasm of upper lobe of right lung (HCC) Malignant neoplasm of upper lobe of right lung Procedures PA THORACOSCOPY W/LOBECTOMY PA THORACOSCOPY REMOVE SEGMENT THORACOSCOPIC (VATS) LOBECTOMY Referral ID Status Reason Start Date Expiration Date Visits Re quested Visits Authorized [id number] 1 1 Encounter Details Date Type Department Care Team (Latest Contact Info) Description 07/17/2024 9:08 AM CDT - 07/21/2024 11:14 AM CDT Hospital Encounter [facility] [address] [place] [address] Augustine Jimenez MD [address] [place] [address] Surgery General Discharge Disposition: Home or Self Care Social History Tobacco Use Types Packs/Day Years Used Date Smoking Tobacco: Every Day Cigarettes 1 51 Smokeless Tobacco: Never Comments:Down to less than h care home a pack daily Alcohol Use Standard Drinks/Week [...] and heating? Not hard at all 05/23/2024 [employer] - Occupational Stress [...] 07/21/2024 8:16 AM CDT Inhaled Oxygen Concentration - - Weight [...] Physician Discharge Summary Patient ID: Andrey Giron [id number] 64 year old male 1960 Admit date: [...] per nephrology according to his baseline schedule ([facility]) on Saturday 08/18. Dialysis was scheduled again for Friday 07/20, but the patient refused. He was again offered dialysis at [facility] on 07/21, but the patient again [...] deficits Psych: Appropriate mood and affect Disposition: [facility] Patient Instructions: Medication List START taking these [...] Your Medications These medications were sent to [facility] - [address] [phone] [phone] acetaminophen 500 MG tablet oxyCODONE (immediate release) 5 MG tablet white petroleum ointment Contact information for follow-up providers None, Physician . Contact information for after-discharge care Dialysis/Infusion [facility] . Service: Dialysis Contact information: [address] [facility] [address] Discharge Instructions ENT Discharge Instructions - [...] follow up. Call to confirm or schedule [phone] - For weekday daytime concerns, call our office at [phone]. For weekend or nighttime concerns,call the hospital at [phone], dial 0, and ask for the ENT resident motion pictures cartoonist. Signed: Ayana Pinedo MD General Surgery Resident 07/21/2024 UNTING ADMINISTRATOR documented in this encounter Discharge Instructions * [...] follow up. Call to confirm or schedule [phone] - For weekday daytime concerns, call our office at [phone]. For weekend or nighttime concerns,call the hospital at [phone], dial 0, and ask for the ENT resident motion pictures cartoonist. documented in this encounter Medications at Time [...] 110/61 119/67 Pulse: 87 83 94 Resp: 18 16 18 Temp: 98.3 ??F (36.8 [...] months for follow up. Our office contact: [phone] Vladislav Singh MD Otolaryngology Head and Neck [...] months for follow up. Our office contact: [phone] Ernst Rivera MD Otolaryngology - Head and [...] 0.04 0.06 0.01 Recent Labs Component Name 07/20/2415407/19/2414807/18/24144 NA 139 [...] Pinedo MD Thoracic Surgery 07/20/2024 4:17 PM UNTING ADMINISTRATOR * Dianelys Cowart RN - 07/20/2024 4:11 [...] 07/23/2024 Discharge Plan: Patient to return to [facility] when medically ready. Family Support (Name and Phone): Extended Emergency Contact Information Primary Emergency Contact: HARRIET LAGUNAS Mobile Relation: Other Secondary Emergency Contact: REMEDIOSARI Mobile Relation: Daughter Pathology Assistant needed? No Transportation at Discharge: Bus READMISSION RISK SCORE is 15 at 3:05 PM 07/20/2024 Name: Caridad Gresham RN [phone] * Ernst Rivera MD - 07/20/2024 2:29 PM CDT Otolaryngology Progress Note 07/20/2024 SUBJECTIVE: Agreeable to surgery today VITALS: Temp (30hrs) Max:98.8 ??F (37.1 ??C) Vitals: 07/19/24 2021 07/19/24 2050 07/20/24 0742 07/20/24 1154 BP: 127/71 [...] he will call his dialysis center in [facility] and arrange for his dialysis tomorrow , he said he will be back on Monday 07/23 for ENTsurgery ... He just want to go home today . Will put dialysis orders for tomorrow in case he did not go home. * Wilma Dangelo PT - 07/20/2024 10:50 AM CDT [facility] Physical Medicine and Rehabilitation Physical Therapy Progress Note Patient: Andrey Giron [facility] Record Number: [id number] Date of : 1960 Age: [age] year [...] independently Patient will ambulate 250 feet independently A Auxiliary Goal(s): Patient to be baseline with functional [...] Martha Renner - 07/20/2024 8:32 AM CDT [facility] Nephrology Progress Note Brief Hospital Course: Andrey Giron is a 64 year old male w/ PMH significant for basal cell carcinoma to left nares s/p resection and reconstruction, left lung adenocarcinoma, ESRD on HD (MWF) 2/2 obstructive uropathy who presents to [facility] on [facility] for planned MANISHA wedge resection with CTS. Nephrology serviced was [facility] on [facility] for HD. ENT was consulted [...] Oral QDAY Physical Exam: Vitals: 07/19/24 1311 07/19/24202007/19/24 2050 07/20/24 0742 BP: 122/66 127/71 132/72 Pulse: [...] 4.7 No results for input(s): PTHINTACT , [id number] in the last 49435 hours. Recent Labs Component Name 07/20/2415407/19/2414807/18/24144 WBC 7.9 8.9 11.1* HGB 10.8* 10.7* 10.5* No results for input(s): IRON , TIBC , FERRITIN in the last 27051 hours. ASSESSMENT Andrey Giron is a 64 [...] Martha Renner - 07/19/2024 2:11 PM CDT [facility] Nephrology Progress Note Brief Hospital Course: Andrey Giron is a 64 year old male w/ PMH significant for basal cell carcinoma to left nares s/p resection and reconstruction, left lung adenocarcinoma, ESRD on HD (MWF) 2/2 obstructive uropathy who presents to [facility] on [facility] for planned MANISHA wedge resection with CTS. Nephrology serviced was [facility] on 07/18 for HD. INTERVAL HISTORY: [...] 4.7 No results for input(s): PTHINTACT , [id number] in the last 47922 hours. Recent Labs Component Name 07/19/2414807/18/24 01407/17/24 1041 WBC 8.9 11.1* 9.1 HGB 10.7* 10.5* 12.0* No results for input(s): IRON , TIBC , FERRITIN in the last 85372 hours. ASSESSMENT Andrey Giron is a 64 [...] (see below) - Receives HD MWF at [facility] with Dr. Verma - Access: [...] Patient will ambulate Outcome: Progressing * Connie Ecohls APRN-CNP - 07/19/2024 9:25 AM CDT Chest tube removal Left chest tube suction discontinued Suture removed in its entirety Chest tube removed intact at end expiration, occlusive dressing with xeroform and 4x4 gauze applied. Tolerated well, but was premedicated with dilaudid 0.5 mg IV CXR tomorrow am * Wilma Pal OT - 07/19/2024 8:16 AM CDT [facility] Physical Medicine and Rehabilitation Occupational Therapy Initial Evaluation Note Patient: Andrey Giron [facility] Record Number: [id number] Date of : 1960 Age: [age] year [...] d/c home Home Situation: Type of Residence: [facility] (for rehab) Home Structure: One Story Primary [...] Patient will transfer to standard toilet independently A Auxiliary Goal(s): Patient to be independent with functional [...] - nephro consulted for inpatient HD Sherry Yuna, DO Thoracic Surgery 07/19/2024 8:13 AM UNTING ADMINISTRATOR * Marbella Huerta, PT - 07/19/2024 8:11 AM CDT [facility] Physical Medicine and Rehabilitation Physical Therapy Initial Evaluation Note Patient: Andrey Giron Med Record Number: [id number] Date of : 1960 Age: [age] year [...] previous facility Home Situation: Type of Residence: [facility] (for [facility]hab) Home Structure: One Story Equipment [...] independently Patient will ambulate 250 feet independently A Auxiliary Goal(s): Patient to be baseline with functional [...] to suction in room). * Mariposa Caceres Meg - 07/19/2024 12:28 AM CDT Problem: Pain/Discomfort [...] Dressing Status None Access Site Evaluation [facility] [place] [facility] Tunneled Catheter Internal Jugular Placement Date/Time: [...] Hess, PT - 07/18/2024 2:00 PM CDT [facility] Department of Physical Medicine & Rehabilitation Patient: Andrey Giron [facility] Record Number: [id number] Date of : 1960 Age: [age] year old 07/18/24 1400 Missed Visit Missed Visit Procedure Off Floor Patient off the floor Dialysis PT orders received and chart reviewed. Pt currently off the floor for HD. Will continue to follow for PT evaluation. * Carolyn Hanley RN - 07/18/2024 12:00 PM CDT Care Coordination Initial Assessment Expected Discharge Date: 07/19/2024 Expected Discharge Disposition: Snf Facility Transportation at Discharge: Pt stated facility would pick him up in van/bus Prior Level of Care: [facility] - Skilled Facility Prior to Admit Provider: [facility] Comments: Pt admitted for L VATS with left upper lobe wedge resection. Pt in dialysis, spoke with pt's daughter. Pt resides in SNF. Pt will return at discharge. Spoke with pt and updated assessment. Lives with: Other (Comment) ([facility]) Physical Limitations: None Requires Assistance With: housekeeping, meal prep Preferred Pharmacy: [facility] - [address] [phone] [phone] READMISSION RISK SCORE is 15 at 12:36 PM 07/18/2024. Met with daughter Family Support (name and phone): Extended Emergency Contact Information Primary Emergency Contact: REMEDIOSARI Mobile Relation: Daughter Pathology Assistant needed? No Patient or licensing representative requests care coordination reach out to family or caregiver listed above regarding discharge planning and at time of discharge? Yes Actual Level of Care/Dispostion Details Durable Medical Equipment Planning Equipment at Home: Walker;Other (Comment) (Facility equipment) Type of Walker: Front Wheeled Walker no longer uses. Big Data Hadoop Developer Referral: Yes Will continue to follow. For any questions or needs please contact: Poultry Field Service Technician/Social Work Name/Phone number: Carolyn Hanley RN * [...] for their review. Spoke with Sloane at [facility] and she was able to confirm patient's OP HD schedule [facility] Days: MWF Time: 10:00am Doctor: Dr Verma 07/18/2024 11:39 AM Meet with patient in patient's room. Patient voiced no concerns with OP HD. Documented acknowledgement of choice: Yes Alexa Anderson [facility]ney Nav[facility] As[facility]: [phone] Office: [phone] * Tereza Chavez, KOKI - 07/18/2024 9:38 AM CDT Pre-Dialysis Report [...] Report from: Santiago Hanks R Phone number: [phone] * Rola Ewing RCP - 07/18/2024 9:11 AM CDT Pt refuses vest therapy due to pain/ discomfort, RN agreed to assist pt with ambulating later today. Aerobika will also be implemented. * Connie Echols APRN-LECTURER IN MARKETING - 07/18/2024 8:13 AM CDT Images from [...] grossly intact Recent Labs Component Name 07/18/24 0145 07/17/24 1041 05/22/24 1454 WBC 11.1* 9.1 8.1 RBC 3.29* 3.71* 3.53* HGB 10.5* 12.0* 11.5* HCT 32.9* 37.3* 33.6* MCV 100.0* 100.5* 95.2 MCHC 31.9 32.2 34.2 PLTCOUNT 211 240 198 NEUTPCT 86.2* - 70.8 LYMPHPCT 6.3* - 19.4 LYMPHABS 0.70* - 1.58 BASOABS 0.01 - 0.06 Recent Labs Component Name 07/18/24 0145 07/17/24 1041 05/23/24 0724 NA 138 140 138 [...] Surgery 07/18/2024 8:14 AM * Mariposa Caceres 07/18/2024 5:27 AM CDT Problem: Pain/Discomfort Goal: [...] Day: 0 POD: Day of Surgery Room: 817/ Procedure: Video-assisted thoracoscopic Left upper lobe Lingular [...] 1815 -- 96 10 112/62 Automatic 07/17/24 1810 -- 97 12 114/64 Automatic 07/17/24 1805 -- 109 10 115/63 Automatic 07/17/24 1800 -- 96 10 111/67 Automatic 07/17/24 1755 -- (!) 113 15 108/64 Automatic 07/17/24 1750 -- (!) 110 11 109/64 Automatic 07/17/24 1745 -- (!) 111 10 92/77 Automatic 07/17/24 [...] Surgery, PGY-1 07/17/2024 11:39 PM * Margarette Oconnor RN - 07/17/2024 5:38 PM CDT Pt [...] , PTT , INR in the last 67489 hours. Imaging & Procedures: PET CT 05/07/24 [...] Dr. Jimenez. Crystal Snow, MS4 Medical Student [facility] of Medicine Attending Note Pt seen and [...] has significant social issues includingliving in a prison. He informs me that his daughter who lives in [place] will be his power of inside parts sales. The patient has multiple medical issues including [...] He agrees to proceed Ritesh Mensah MD Laborer Concrete Paving Facial Plastic and Reconstructive Surgery Otolaryngology- Head and Neck Surgery * Martha Renner - 07/18/2024 2:11 PM CDT [facility] Nephrology Consult Note Date of Admission: 07/17/2024 Date of Service: 07/18/2024 Consulting Service: Cardiothoracic Surgery Reason for Consult: ESRD on HD Brief Hospital Course: Andrey Giron is a 64 year old male w/ PMH significant for basal cell carcinoma to left nares s/p resection and reconstruction, left lung adenocarcinoma, ESRD on HD (MWF) 2/ obstructive uropathy who [facility] for planned MANISHA wedge resection with CTS. Ne[facility]rology serviced [facility] for HD. Patient was seen at HD unit this AM. He is POD1 from MANISHA wedge resection. Reports some post-op discomfort/pain, but otherwise feels well while connected to HD machine. Dialysis Center: [facility] Dialysis Days: MWF Date if last dialysis: Access: R-IJ Permcath (also has RUE fistula, but not yet used) Lung Puller: Dr. Verma Review of Systems (positives are [...] No Stress: No Stress Concern Present (05/23/2024) [employer] - Occupational Stress Questionnaire [...] deficits Psychiatric: Calm, cooperative Dialysis access: R-IJ Permcat LABS: Recent Labs Component Name 07/18/24 0145 07/17/24 1041 05/23/24 0724 NA 138 140 138 POTASSIUM 5.4* 5.0* 4.4 CL 112* 114* 105 CO2 13* 14* 21* BUN 82* 73* 59* CREATININE 12.10* 11.41* 10.53* Recent Labs Component Name 07/18/24 0145 07/17/24 1041 05/23/24 0724 CALCIUM 8.5 9.0 8.6 PHOS 4.7 4.7 6.9* No results for input(s): PTHINTACT , DMN3ITHPKS in the last 74628 hours. 25-OH Vitamin D = No results for input(s): HGBA1C , A1C , NRKWJMDND2N , EAG in the last 42708 hours. Recent Labs Component Name 07/18/24 0145 07/17/24 1041 05/22/24 1454 WBC 11.1* 9.1 8.1 HGB 10.5* 12.0* 11.5* No results for input(s): IRON , TIBC , FERRITIN in the last 01133 hours. IMAGING: No results found. ASSESSMENT Andrey [...] (see below) - Receives HD MWF at [facility] with Dr. Verma - Access: [...] 1:53 PM CDTAssociated Order(s): IP CONSULT TO OVERNIGHT HOUSEPERSON Social Work Progress Note Discharge Plan Disposition: SNF Transportation: Transportation at discharge: Ambulance Anticipated Discharge Date: 07/19/2024 Contacts: Extended Emergency Contact Information Primary Emergency Contact: ARI GIRON Mobile Relation: Daughter Pathology Assistant needed? No Comments: Pt is from [facility]. SW will follow up with facility to ensure pt canreturn. Name/Phone number: Brian SANTA Maya [phone] documented in this encounter OR Notes * Operative - Rietsh Mensah MD - 07/20/2024 5:00 PM CDT OPERATIVE REPORT NAME: Andrey Giron : 1960 CSN: [id number] DATE OF OPERATION: 07/20/2024 ATTENDING SURGEON: Ritesh Mensah MD Pre-Op Diagnosis: Basal cell carcinoma nose Post-Op Diagnosis: Same Procedure: -Division and inset forehead flap (CPT 85675) Network Security Analyst Ernst Rivera MD Indications for procedure: Andrey Giron is a 64 year old male with a history of basal cell carcinoma on the nose. He underwent resection with Dr. Menezes and forehead flap with nd for reconstruction 05/22/24. The patient has been [...] The flap was placed into the dorsum. [place] skinon the dorsum was excised to allow the upper portion of the forehead flap to fit into the defect. The flap was inset with 5-0 monocryl in the deep layer and 5-0 chromic in the skin layer Estimated Blood Loss: minimal Complications: None apparent. Condition: Stable I was present and performed all critical portions of the surgery. Ritesh Mensah MD Laborer Concrete Paving Facial Plastic and Reconstructive Surgery Otolaryngology- Head [...] Sherry Yuan DO - Resident - Assisting Network Security Analyst(s): Elizabeth MS3 Anesthesia Type: general ETT Complications: none Findings: L VATS with left upper lobe wedge resection. Lymph node stations: 3, 5, 6, and 10 sent for pathology. EBL: blood loss of 50 ml Urine Output : none IV Fluid Intake: 600 crystalloid Drains: Nephrostomy Tube Back;Left (Active) Nephrostomy Tube Output 200 07/17/24 1359 Status Patent;To [place] 07/17/24 1100 Site Assessment WDL 07/17/24 1100 Dressing Status Clean, Dry, Intact 07/17/24 1100 Dressing Type Occlusive 07/17/24 1100 Nephrostomy Tube Back;Right (Active) Nephrostomy Tube Output 200 07/17/24 1359 Status Patent;To [place] 07/17/24 1100 Site Assessment WDL 07/17/24 1100 [...] dialysis. We have been working with his prison to bring the patient into the hospital [...] station 3 lymph nodeanteriorly. A single 28 Yoruba coaxial drain was placed into the chest [...] Tube Output 150 07/18/24 0451 Status Patent;To [place] 07/17/242040 Site Assessment WDL 07/17/242040 Dressing Status Clean, Dry, Intact 07/17/242040 Dressing Type Occlusive 07/17/242040 Nephrostomy Tube Back;Right (Active) Nephrostomy Tube Output 150 07/18/24 0451 Status Patent;To [place] 07/17/242040 Site Assessment WDL 07/17/242040 Dressing Status [...] Biopsy, Excision Lung Resect Seg PATHOLOGY TISSUE Veeramachaneni, NirmalK, MD 07/17/2024 1548 B : True margin. [...] st Contact Info) Description 10/16/2024 1:30 PM ACCOUNTING ADMINISTRATOR Office Visit [facility] - ENT [address] [place] [phone] Ritesh Mensah MD [address] [place] [address] [place] [address] Scheduled Orders Name Type Priority Associated Diagnoses [...] Timed 07/21/2024 2:02 AM CDT Lung nodule PA FOREHEAD FLAP W/ PRSRV VASC PEDICLE 07/20/2024 [...] of upper lobe of right lung (HCC) PA THORACOSCOPY W/LOBECTOMY 07/17/2024 2:15 PM CDT Malignant neoplasm of upper lobe of left lung (HCC) Case Notes PATIENT IS IN A NURSING SRINIVAS: [phone] ([facility]) Special Needs SUPINE, ENDO VIDEO CART, BANKS [...] Chest Digital Radiogra phy 07/22/2024 2:53 PM ACCOUNTING ADMINISTRATOR Impressions 07/22/2024 2:54 PM ACCOUNTING ADMINISTRATOR IMPRESSION: Unchanged right internal jugular central venous [...] 07/22/2024 2:54 PM Narrative 07/22/2024 2:54 PM ACCOUNTING ADMINISTRATOR PROCEDURE: ??XR CHEST 1VW PORTABLE DATE/TIME OF [...] (ABNORMAL) PHOSPHORUS BLOOD (07/21/2024 2:02 AM CDT) Pathologist [facility] Phosphorus 6.7(H) 2.8 - 5.1 mg/dL 07/21/2024 2:49 AM CDT [facility] Blood BLOOD SPECIMEN / Unknown Lab Venipuncture / Unknown 07/21/2024 2:02 AM CDT 07/21/2024 2:23 AM CDT Augustine Jimenez MD LAB - CONTROL MANAGER RY ORDERABLES [address] [address], [facility] [phone] * MAGNESIUM BLOOD (07/21/2024 2:02 AM CDT) [facility] Magnesium 2.5 1.6 - 2.6 mg/dL 07/21/2024 2:49 AM CDT [facility] Blood BLOOD SPECIMEN / Unknown Lab Venipuncture / Unknown 07/21/2024 2:02 AM CDT 07/21/2024 2:23 AM CDT Augustine Jimenez MD LAB - CONTROL MANAGER RY ORDERABLES [address] [address], [facility] [phone] * (ABNORMAL) CBC W/O DIFFERENTIAL (07/21/2024 2:02 AM CDT) Pathologist [facility] WBC 8.1 4.0 - 10.7 x10E9/L 07/21/2024 2:[address] [facility] RBC Count 3.21(L) 4.30 - 5.80 x10E12/L 07/21/2024 2:[address] [facility] Hemoglobin 10.4(L) 13.3 - 17.5 g/dL 07/21/2024 2:[address] [facility] Hematocrit 32.3(L) 38.7 - 51.1 % 07/21/2024 2:[address] [facility] MCV 100.6(H) 80.0 - 98.0 fL 07/21/2024 2:[address] [facility] MCH 32.4 26.7 - 33.6 pg 07/21/2024 2:[address] [facility] MCHC 32.2 31.7 - 36.3 g/dL 07/21/2024 2:[address] [facility] RDW-CV 13.8 11.3 - 14.8 % 07/21/2024 2:[address] [facility] Platelet Count 184 150 - 420 x10E9/L 07/21/2024 2:[address] [facility] MPV 9.6 7.8 - 11.4 fL 07/21/2024 2:[address] [facility] Blood BLOOD SPECIMEN / Unknown Lab Venipuncture / Unknown 07/21/2024 2:02 AM CDT 07/21/2024 2:25 AM T Augustine Jimenez MD LAB - HEMATOL OGY ORDERABLES [facility] [address] [place] [phone], [facility] [phone] * (ABNORMAL) BASIC METABOLIC PANEL (CALCIUM TOTAL) (07/21/2024 2:02 AM CDT) BUN 58(H) 7 - 26 mg/dL 07/21/2024 2:[address] [facility] Creatinine 10.50(H) 0.71 - 1.16 mg/dL 07/21/2024 2:[address] [facility] Sodium 139 136 - 145 mmol/L 07/21/2024 2:[address] [facility] Potassium 4.3 3.5 - 4.5 mmol/L 07/21/2024 2:[address] [facility] Chloride 101 98 - 107 mmol/L 07/21/2024 2:[address] [facility] CO2 24 22 - 29 mmol/L 07/21/2024 2:[address] [facility] Glucose 163(H) 70 - 99 mg/dL 07/21/2024 2:[address] [facility] Calcium 8.6 8.4 - 10.2 mg/dL 07/21/2024 2:[address] [facility] Anion Gap 14 6 - 16 07/21/2024 2:[address] [facility] BUN/Creatinine Ratio 6(L) 7 - 23 07/21/2024 2:[address] [facility] Osmolality Calculated 308(H) 275 - 295 mOsm/kg 07/21/2024 2:[address] [facility] eGFR by CKD-EPI 5(L) >=90 mL/min/1.7 3 m2 07/21/2024 2:[address] [facility] Blood BLOOD SPECIMEN / Unknown Lab Venipuncture / Unknown 07/21/2024 2:02 AM CDT 07/21/2024 2:23 AM CDT Augustine Jimenez MD LAB - CONTROL MANAGER RY ORDERABLES Performing Organization Address City/State/[facility] Co de Phone Number [address] [address], [facility] [phone] * (ABNORMAL) CBC W AUTO DIFFERENTIAL (07/21/2024 2:02 AM CDT) WBC 8.1 4.0 - 10.7 x10E9/L 07/21/2024 2:[address] [facility] RBC Count 3.21(L) 4.30 - 5.80 x10E12/L 07/21/2024 2:[address] [facility] Hemoglobin 10.4(L) 13.3 - 17.5 g/dL 07/21/2024 2:[address] [facility] Hematocrit 32.3(L) 38.7 - 51.1 % 07/21/2024 2:[address] [facility] MCV 100.6(H) 80.0 - 98.0 fL 07/21/2024 2:[address] [facility] MCH 32.4 26.7 - 33.6 pg 07/21/2024 2:[address] [facility] MCHC 32.2 31.7 - 36.3 g/dL 07/21/2024 2:[address] [facility] RDW-CV 13.8 11.3 - 14.8 % 07/21/2024 2:[address] [facility] Platelet Count 184 150 - 420 x10E9/L 07/21/2024 2:[address] [facility] MPV 9.6 7.8 - 11.4 fL 07/21/2024 2:[address] [facility] Neutrophil % 69.8 41.0 - 74.0 % 07/21/2024 2:[address] [facility] Lymphocyte % 14.2(L) 17.0 - 47.0 % 07/21/2024 2:[address] [facility] Monocyte % 7.9 3.0 - 11.0 % 07/21/2024 2:[address] [facility] Eosinophil % 7.4(H) 0.0 - 7.0 % 07/21/2024 2:[address] [facility] Basophil % 0.5 0.0 - 1.6 % 07/21/2024 2:[address] [facility] Immature Granulocytes % 0.2 0.0 - 1.0 % 07/21/2024 2:[address] [facility] Neutrophil Absolute 5.67 1.60 - 7.50 x10E9/L 07/21/2024 2:[address] [facility] Lymphocyte Absolute 1.15 1.00 - 4.40 x10E9/L 07/21/2024 2:[address] [facility] Monocyte Absolute 0.64 0.15 - 1.00 x10E9/L 07/21/2024 2:29 AM CDT [facility] [place] Eosinophil Absolute 0.60 0.00 - 0.60 x10E9/L 07/21/2024 2:29 AM CDT [facility] Basophil Absolute 0.04 0.00 - 0.13 x10E9/L 07/21/2024 2:29 AM CDT [facility] Blood BLOOD SPECIMEN / Unknown Lab Venipuncture / Unknown 07/21/2024 2:02 AM CDT 07/21/2024 2:25 AM CDT Augustine Jimenez MD LAB - HEMATOL OGY ORDERABLES [address] [address], [facility] [phone] * XR Chest 2Vw (07/20/2024 9:49 AM [...] DATE/TIME OF EXAM: ??07/20/2024 5:40 AM, LOCATION ??[facility] INDICATION: R91.1: Lung nodule ADDITIONAL CLINICAL [...] wall. Report dictated by Kristel Muller MD (executive vice president and chief financial officer). ITeddy MD have personally reviewed and interpreted this examination/study. > Interpreting Provider: Teddy Johnston MD on 07/20/2024 11:14 AM Procedure Note Teddy Johnston MD - 07/20/2024 PROCEDURE: XR CHEST 1VW PORTABLE, DATE/TIME OF EXAM: 07/20/2024 5:40AM, LOCATION [facility] INDICATION: R91.1: Lung nodule ADDITIONAL CLINICAL [...] lateral chest wall. Report dictated by Kristel Mulelr MD (executive vice president and chief financial officer). I, Teddy Johnston MD have personally reviewed and interpreted this examination/study. > Interpreting Provider: Teddy Johnston MD on 07/20/2024 11:14 AM Connie Echols [employer]-LECTURER IN MARKETING DIAGNOSTIC IMAGIN G ORDERABLES * (ABNORMAL) PHOSPHORUS BLOOD (07/20/2024 1:55 AM CDT) Phosphorus 5.6(H) 2.8 - 5.1 mg/dL 07/20/2024 3:15 AM CDT [facility] Blood BLOOD SPECIMEN / Unknown Lab Venipuncture / Unknown 07/20/2024 1:55 AM CDT 07/20/2024 2:43 AM CDT Augustine Jimenez MD LAB - CONTROL MANAGER RY ORDERABLES [address] [address], [facility] [phone] * MAGNESIUM BLOOD (07/20/2024 1:55 AM CDT) Magnesium 2.2 1.6 - 2.6 mg/dL 07/20/2024 3:15 AM CDT [facility] Blood BLOOD SPECIMEN / Unknown Lab Venipuncture / Unknown 07/20/2024 1:55 AM CDT 07/20/2024 2:43 AM CDT Augustine Jimenez MD LAB - CONTROL MANAGER RY ORDERABLES [facility] [address] [place] [address], [facility] [phone] * (ABNORMAL) BASIC METABOLIC PANEL (CALCIUM TOTAL) (07/20/2024 1:55 AM CDT) BUN 51(H) 7 - 26 mg/dL 07/20/2024 3:[address] [facility] Creatinine 9.06(H) 0.71 - 1.16 mg/dL 07/20/2024 3:[address] [facility] Sodium 139 136 - 145 mmol/L 07/20/2024 3:[address] [facility] Potassium 4.0 3.5 - 4.5 mmol/L 07/20/2024 3:[address] [facility] Chloride 101 98 - 107 mmol/L 07/20/2024 3:[address] [facility] CO2 23 22 - 29 mmol/L 07/20/2024 3:[address] [facility] Glucose 116(H) 70 - 99 mg/dL 07/20/2024 3:[address] [facility] Calcium 9.2 8.4 - 10.2 mg/dL 07/20/2024 3:[address] [facility] Anion Gap 15 6 - 16 07/20/2024 3:[address] [facility] BUN/Creatinine Ratio 6(L) 7 - 23 07/20/2024 3:[address] [facility] Osmolality Calculated 303(H) 275 - 295 mOsm/kg 07/20/2024 3:[address] [facility] eGFR by CKD-EPI 6(L) >=90 mL/min/1.7 3 m2 07/20/2024 3:[address] [facility] Blood BLOOD SPECIMEN / Unknown Lab Venipuncture / Unknown 07/20/2024 1:55 AM CDT 07/20/2024 2:43 AM CDT Augustine Jimenez MD LAB - CONTROL MANAGER RY ORDERABLES Performing Organization Address City/State/[facility] Co de Phone Number [facility] [address] [place] [phone], [facility] [phone] * (ABNORMAL) CBC W AUTO DIFFERENTIAL (07/20/2024 1:55 AM CDT) WBC 7.9 4.0 - 10.7 x10E9/L 07/20/2024 2:55 AM CDT [facility] RBC Count 3.33(L) 4.30 - 5.80 x10E12/L 07/20/2024 2:[address] [facility] Hemoglobin 10.8(L) 13.3 - 17.5 g/dL 07/20/2024 2:[address] [facility] Hematocrit 33.2(L) 38.7 - 51.1 % 07/20/2024 2:[address] [facility] MCV 99.7(H) 80.0 - 98.0 fL 07/20/2024 2:55 AM T [facility] MCH 32.4 26.7 - 33.6 pg 07/20/2024 2:[address] [facility] MCHC 32.5 31.7 - 36.3 g/dL 07/20/2024 2:[address] [facility] RDW-CV 14.1 11.3 - 14.8 % 07/20/2024 2:[address] [facility] Platelet Count 180 150 - 420 x10E9/L 07/20/2024 2:[address] [facility] MPV 9.7 7.8 - 11.4 fL 07/20/2024 2:[address] [facility] Neutrophil % 68.3 41.0 - 74.0 % 07/20/2024 2:[address] [facility] Lymphocyte % 18.3 17.0 - 47.0 % 07/20/2024 2:[address] [facility] Monocyte % 8.3 3.0 - 11.0 % 07/20/2024 2:[address] [facility] Eosinophil % 4.2 0.0 - 7.0 % 07/20/2024 2:55 AM CDT [facility] LABORATORY [facility] Basophil % 0.5 0.0 - 1.6 % 07/20/2024 2:55 AM CDT [facility] Immature Granulocytes % 0.4 0.0 - 1.0 % 07/20/2024 2:55 AM T [facility] Neutrophil Absolute 5.36 1.60 - 7.50 x10E9/L 07/20/2024 2:55 AM CDT [facility] Lymphocyte Absolute 1.44 1.00 - 4.40 x10E9/L 07/20/2024 2:[address] [facility] Monocyte Absolute 0.65 0.15 - 1.00 x10E9/L 07/20/2024 2:[address] [facility] Eosinophil Absolute 0.33 0.00 - 0.60 x10E9/L 07/20/2024 2:[address] [facility] Basophil Absolute 0.04 0.00 - 0.13 x10E9/L 07/20/2024 2:55 AM CDT [facility] Blood BLOOD SPECIMEN / Unknown Lab Venipuncture / Unknown 07/20/2024 1:55 AM CDT 07/20/2024 2:46 AM CDT Augustine Jimenez MD LAB - HEMATOL OGY ORDERABLES Performing Organization Address City/State/[facility] Co de Phone Number [facility] [address] [place] [phone], [facility] [phone] * XR Chest 1Vw Portable (07/19/2024 5:01 AM CDT) Anatomical Region Laterality Modality Chest Digital Radiogra phy 07/19/2024 11:2 3 AM CDT Narrative 07/19/2024 11:52 AM CDT PROCEDURE: ??XR CHEST 1VW PORTABLE, DATE/TIME OF EXAM: ??07/19/2024 5:01 AM, LOCATION ??[facility] INDICATION: R91.1: Lung nodule ADDITIONAL CLINICAL [...] wall. Report dictated by Kristel Muller MD (executive vice president and chief financial officer). Teddy Posey MD have personally reviewed and interpreted this examination/study. > Interpreting Provider: Teddy Johnston MD on 07/19/2024 11:52 AM Procedure Note Teddy Johnston MD - 07/19/2024 PROCEDURE: XR CHEST 1VW PORTABLE, DATE/TIME OF EXAM: 07/19/2024 5:01AM, LOCATION [facility] INDICATION: R91.1: Lung nodule ADDITIONAL CLINICAL [...] wall. Report dictated by Kristel Muller MD (executive vice president and chief financial officer). Teddy Posey MD have personally reviewed and interpreted this examination/study. > Interpreting Provider: Teddy Johnston MD on 07/19/2024 11:52 AM Connie Echols [employer] IN MARKETING DIAGNOSTIC IMAGIN G ORDERABLES * PHOSPHORUS BLOOD (07/19/2024 1:49 AM CDT) Phosphorus 4.9 2.8 - 5.1 mg/dL 07/19/2024 2:29 AM CDT [facility] Blood BLOOD SPECIMEN / Unknown Lab Venipuncture / Unknown 07/19/2024 1:49 AM CDT 07/19/2024 2:00 AM CDT Augustine Jimenez MD LAB - CONTROL MANAGER RY ORDERABLES Performing Organization Address City/[facility]/ZIP Co de Phone Number [address] [address], [facility] [phone] * MAGNESIUM BLOOD (07/19/2024 1:49 AM CDT) Magnesium 2.1 1.6 - 2.6 mg/dL 07/19/2024 2:29 AM T [facility] Blood BLOOD SPECIMEN / Unknown Lab Venipuncture / Unknown 07/19/2024 1:49 AM CDT 07/19/2024 2:00 AM CDT Augustine Jimenez MD LAB - CONTROL MANAGER RY ORDERABLES [address] [address], [facility] [phone] * (ABNORMAL) BASIC METABOLIC PANEL (CALCIUM TOTAL) (07/19/2024 1:49 AM CDT) BUN 34(H) 7 - 26 mg/dL 07/19/2024 2:[address] [facility] Creatinine 7.59(H) 0.71 - 1.16 mg/dL 07/19/2024 2:[address] [facility] Sodium 138 136 - 145 mmol/L 07/19/2024 2:[address] [facility] Potassium 3.8 3.5 - 4.5 mmol/L 07/19/2024 2:[address] [facility] Chloride 101 98 - 107 mmol/L 07/19/2024 2:[address] [facility] CO2 26 22 - 29 mmol/L 07/19/2024 2:[address] [facility] Glucose 104(H) 70 - 99 mg/dL 07/19/2024 2:[address] [facility] Calcium 8.4 8.4 - 10.2 mg/dL 07/19/2024 2:[address] [facility] Anion Gap 11 6 - 16 07/19/2024 2:[address] [facility] BUN/Creatinine Ratio 4(L) 7 - 23 07/19/2024 2:[address] [facility] Osmolality Calculated 294 275 - 295 mOsm/kg 07/19/2024 2:[address] [facility] eGFR by CKD-EPI 7(L) >=90 mL/min/1.7 3 m2 07/19/2024 2:[address] [facility] Blood BLOOD SPECIMEN / Unknown Lab Venipuncture / Unknown 07/19/2024 1:49 AM CDT 07/19/2024 2:00 AM CDT Augustine Jimenez MD LAB - CONTROL MANAGER RY ORDERABLES Performing Organization Address [facility] Co de Phone Number [address] [phone] [phone] * (ABNORMAL) CBC W AUTO DIFFERENTIAL (07/19/2024 1:49 AM CDT) WBC 8.9 4.0 - 10.7 x10E9/L 07/19/2024 2:[address] [facility] RBC Count 3.31(L) 4.30 - 5.80 x10E12/L 07/19/2024 2:[address] [facility] Hemoglobin 10.7(L) 13.3 - 17.5 g/dL 07/19/2024 2:[address] [facility] Hematocrit 32.2(L) 38.7 - 51.1 % 07/19/2024 2:[address] [facility] MCV 97.3 80.0 - 98.0 fL 07/19/2024 2:[address] [facility] MCH 32.3 26.7 - 33.6 pg 07/19/2024 2:[address] [facility] MCHC 33.2 31.7 - 36.3 g/dL 07/19/2024 2:[address] [facility] RDW-CV 14.1 11.3 - 14.8 % 07/19/2024 2:[address] [facility] Platelet Count 189 150 - 420 x10E9/L 07/19/2024 2:[address] [facility] MPV 9.5 7.8 - 11.4 fL 07/19/2024 2:[address] [facility] Neutrophil % 70.8 41.0 - 74.0 % 07/19/2024 2:[address] [facility] Lymphocyte % 17.2 17.0 - 47.0 % 07/19/2024 2:[address] [facility] Monocyte % 8.2 3.0 - 11.0 % 07/19/2024 2:[address] [facility] Eosinophil % 2.8 0.0 - 7.0 % 07/19/2024 2:[address] [facility] Basophil % 0.7 0.0 - 1.6 % 07/19/2024 2:[address] [facility] Immature Granulocytes % 0.3 0.0 - 1.0 % 07/19/2024 2:[address] [facility] Neutrophil Absolute 6.27 1.60 - 7.50 x10E9/L 07/19/2024 2:[address] [facility] Lymphocyte Absolute 1.53 1.00 - 4.40 x10E9/L 07/19/2024 2:[address] [facility] Monocyte Absolute 0.73 0.15 - 1.00 x10E9/L 07/19/2024 2:[address] [facility] Eosinophil Absolute 0.25 0.00 - 0.60 x10E9/L 07/19/2024 2:[address] [facility] Basophil Absolute 0.06 0.00 - 0.13 x10E9/L 07/19/2024 2:[address] [facility] Blood BLOOD SPECIMEN / Unknown Lab Venipuncture / Unknown 07/19/2024 1:49 AM CDT 07/19/2024 2:00 AM T Augustine Jimenez MD LAB - HEMATOL OGY ORDERABLES [place] [phone], [facility] [phone] * HEPATITIS B SURFACE ANTIBODY QUANT (07/18/2024 9:23 AM CDT) Pathologist [facility] Hepatitis B Virus Surface Antibody 3.95 IU/L 07/20/2024 12:43 PM CDT [facility] ([facility]) Comment: The anti-HBs is less than 10 [...] Cellular and Tissue-Based Products (HCT/P). Performed By: [employer] [address] [place] [address] Sound System Installer: Mahendra Duron MD, PhD CLIA Number: [id number] Blood BLOOD SPECIMEN / Unknown Lab Venipuncture / Unknown 07/18/2024 9:23 AM CDT 07/18/2024 9:49 AM CDT Bebo Mac MD LAB - SEROLOGY ORDER [facility] ! [facility]) [address] * HEPATITIS B SURFACE ANTIGEN W RFLX CONFIRMATION (07/18/2024 9:23 AM CDT) Hepatitis B Virus Surface Antigen Non-reacti ve Non-reacti ve 07/18/2024 10:40 AM CDT [facility] LABORATORY [facility] Blood BLOOD SPECIMEN / Unknown Lab Venipuncture / Unknown 07/18/2024 9:23 AM CDT 07/18/2024 9:49 AM CDT Bebo Mac MD LAB - CHEMISTRY NELDA TIPTON [facility] LABORATORY [facility] [place] [address], [facility] [phone] * XR CHEST 1VW PORTABLE (07/18/2024 7:27 AM CDT) Anatomical Region Laterality Modality Chest Digital Radiogra phy 07/18/2024 10:3 3 AM CDT Narrative 07/18/2024 2:12 PM CDT PROCEDURE: ??XR CHEST 1VW PORTABLE, DATE/TIME OF EXAM: ??07/18/2024 7:27 AM, LOCATION ??[facility] INDICATION: C34.11: Malignant neoplasm of upper [...] stable. > Dictated by Daquan Curtis MD (executive vice president and chief financial officer). ITeddy MD have personally reviewed and interpreted this examination/study. > Interpreting Provider: Teddy Johnston MD on 07/18/2024 2:12 PM Procedure Note Teddy Johnston MD - 07/18/2024 PROCEDURE: XR CHEST 1VW PORTABLE, DATE/TIME OF EXAM: 07/18/2024 7:27AM, LOCATION [facility] INDICATION: C34.11: Malignant neoplasm of upper [...] stable. > Dictated by Daquan Curtis MD (executive vice president and chief financial officer). ITeddy MD have personally reviewed and interpreted [...] - 5.1 mg/dL 07/18/2024 2:28 AM CDT [facility] Blood BLOOD SPECIMEN / Unknown Lab Venipuncture / Unknown 07/18/2024 1:45 AM CDT 07/18/2024 2:02 AM CDT Augustine Jimenez MD LAB - CONTROL MANAGER RY ORDERABLES Performing Organization Address City/[facility]/ZIP Co de Phone Number [address] [phone], [facility] [phone] * MAGNESIUM BLOOD (07/18/2024 1:45 AM CDT) Magnesium 2.3 1.6 - 2.6 mg/dL 07/18/2024 2:28 AM CDT [facility] Blood BLOOD SPECIMEN / Unknown Lab Venipuncture / Unknown 07/18/2024 1:45 AM CDT 07/18/2024 2:02 AM CDT Augustine Jimenez MD LAB - CONTROL MANAGER RY ORDERABLES [facility] [address] [place] [address], [facility] [phone] * (ABNORMAL) BASIC METABOLIC PANEL (CALCIUM TOTAL) (07/18/2024 1:45 AM CDT) BUN 82(H) 7 - 26 mg/dL 07/18/2024 2:[address] [facility] Creatinine 12.10(H) 0.71 - 1.16 mg/dL 07/18/2024 2:[address] [facility] Sodium 138 136 - 145 mmol/L 07/18/2024 2:[address] [facility] Potassium 5.4(H) 3.5 - 4.5 mmol/L 07/18/2024 2:[address] [facility] Chloride 112(H) 98 - 107 mmol/L 07/18/2024 2:[address] [facility] CO2 13(L) 22 - 29 mmol/L 07/18/2024 2:[address] [facility] Glucose 183(H) 70 - 99 mg/dL 07/18/2024 2:[address] [facility] Calcium 8.5 8.4 - 10.2 mg/dL 07/18/2024 2:[address] [facility] Anion Gap 13 6 - 16 07/18/2024 2:[address] [facility] BUN/Creatinine Ratio 7 7 - 23 07/18/2024 2:[address] [facility] Osmolality Calculated 315(H) 275 - 295 mOsm/kg 07/18/2024 2:[address] [facility] eGFR by CKD-EPI 4(L) >=90 mL/min/1.7 3 m2 07/18/2024 2:[address] [facility] Blood BLOOD SPECIMEN / Unknown Lab Venipuncture / Unknown 07/18/2024 1:45 AM CDT 07/18/2024 2:02 AM T Augustine Jimenez MD LAB - CONTROL MANAGER RY ORDERABLES [facility] [address] [place] [phone] [phone] * (ABNORMAL) CBC W AUTO DIFFERENTIAL (07/18/2024 1:45 AM CDT) [facility] WBC 11.1(H) 4.0 - 10.7 x10E9/L 07/18/2024 2:[address] [facility] RBC Count 3.29(L) 4.30 - 5.80 x10E12/L 07/18/2024 2:[address] [facility] Hemoglobin 10.5(L) 13.3 - 17.5 g/dL 07/18/2024 2:[address] [facility] Hematocrit 32.9(L) 38.7 - 51.1 % 07/18/2024 2:[address] [facility] MCV 100.0(H) 80.0 - 98.0 fL 07/18/2024 2:[address] [facility] MCH 31.9 26.7 - 33.6 pg 07/18/2024 2:[address] [facility] MCHC 31.9 31.7 - 36.3 g/dL 07/18/2024 2:[address] [facility] RDW-CV 13.9 11.3 - 14.8 % 07/18/2024 2:[address] [facility] Platelet Count 211 150 - 420 x10E9/L 07/18/2024 2:[address] [facility] MPV 9.5 7.8 - 11.4 fL 07/18/2024 2:[address] [facility] Neutrophil % 86.2(H) 41.0 - 74.0 % 07/18/2024 2:[address] [facility] Lymphocyte % 6.3(L) 17.0 - 47.0 % 07/18/2024 2:[address] [facility] Monocyte % 7.0 3.0 - 11.0 % 07/18/2024 2:[address] [facility] Eosinophil % 0.0 0.0 - 7.0 % 07/18/2024 2:[address] [facility] Basophil % 0.1 0.0 - 1.6 % 07/18/2024 2:11 AM CDT [facility] LABORATORY [facility] Immature Granulocytes % 0.4 0.0 - 1.0 % 07/18/2024 2:11 AM CDT [facility] Neutrophil Absolute 9.60(H) 1.60 - 7.50 x10E9/L 07/18/2024 2:11 AM CDT [facility] Lymphocyte Absolute 0.70(L) 1.00 - 4.40 x10E9/L 07/18/2024 2:11 AM CDT [facility] Monocyte Absolute 0.78 0.15 - 1.00 x10E9/L 07/18/2024 2:11 AM CDT [facility] Eosinophil Absolute 0.00 0.00 - 0.60 x10E9/L 07/18/2024 2:11 AM CDT [facility] Basophil Absolute 0.01 0.00 - 0.13 x10E9/L 07/18/2024 2:11 AM CDT [facility] Blood BLOOD SPECIMEN / Unknown Lab Venipuncture / Unknown 07/18/2024 1:45 AM CDT 07/18/2024 2:02 AM CDT Augustine Jimenez MD LAB - HEMATOL OGY ORDERABLES Performing Organization Address City/State/[facility] Co de Phone Number [facility] [address] [place] [address], [facility] [phone] * XR Chest 1Vw Portable (07/17/2024 4:53 PM CDT) Anatomical Region Laterality Modality Chest Digital Radiogra phy 07/18/2024 7:57 AM CDT Narrative 07/18/2024 2:10 PM CDT PROCEDURE: ??XR CHEST 1VW PORTABLE, DATE/TIME OF EXAM: ??07/17/2024 4:53 PM, LOCATION ??[facility] INDICATION: R91.1: Lung nodule ADDITIONAL CLINICAL [...] stable. > Dictated by Daquan Curtis MD (executive vice president and chief financial officer). Teddy Posey MD have personally reviewed and interpreted this examination/study. > Interpreting Provider: Teddy Johnston MD on 07/18/2024 2:10 PM Procedure Note Teddy Johnston MD - 07/18/2024 PROCEDURE: XR CHEST 1VW PORTABLE, DATE/TIME OF EXAM: 07/17/2024 4:53PM, LOCATION [facility] INDICATION: R91.1: Lung nodule ADDITIONAL CLINICAL [...] stable. > Dictated by Daquan Curtis MD (executive vice president and chief financial officer). Teddy Posey MD have personally reviewed and interpreted this examination/study. > Interpreting Provider: Teddy Johnston MD on 07/18/2024 2:10 PM Augustine Jimenez MD DIAGNOSTIC IM AGING ORDERABLES * PATHOLOGY TISSUE (07/17/2024 3:48 PM CDT) Case Report Surgical Pathology Report ? Case: [id number] ? Authorizing Provider: ??Ankit Jimenezmal K, ??Collected: ? 07/17/2024 03:48 PM ? MD ? Ordering Location: ? [facility] ?Received: ?07/18/2024 04:46 AM ? Pathologist: ? Partha, Rene, MD ? Specimens: ?? A) - Lung Resect Seg, Left upper lobe wedge. ? B) - Margin, True margin. ? C) - Lymph Node, Station 5 lymph node. ? D) - Lymph Node, Station 6 lymph node. ? E) - Lymph Node, Station 3 lymph node. ? F) - Lymph Node, Station 10 lymph node. ? 8:33 PM [facility] Final Diagnosis Lung, left [...] nodes, negative for carcinoma (0/2) 8:33 PM [facility] Preliminary result electronically signed by Rene Chavis MD on 07/21/2024 at 5:00 PM Microscopic Description and Comment Additional immunostains for TTF-1 on blocks A2 and A3 were performed, and both stains are positive in malignant cells. 8:33 PM [facility] Clinical History The patient is a 64 year-old male with adenocarcinoma of the left upper lobe. 8:33 PM [facility] Intraoperative Consultation A) Left upper lobe wedge -piece of lung tissue 10 x 8 x 4 cm, stapled along edges, area of pleural puckering 2.5 x 2.0 cm corresponding to subpleural firm white tumor 3.0 x 1.8 x 1.1 cm. Margins grossly clear. Senior Applications Developer section of tumor frozen (FSA1). Intraoperative diagnosis: [...] Dr. Satish Riggs MD 4 8:33 PM [facility] Gross Description The requisition [...] respectively submitted in cassette A1 and additional licensing representative sections are submitted as follows: A2, [...] as cassette F1. AL 4 8:33 PM [facility] Pathologist Location at [facility] 4 8:33 PM [facility] Disclaimer The performance characteristics of all immunohistochemical and indirect immunofluorescence stains (if any) cited in this report were determined by the Histopathology Laboratory of [facility]. Some of these tests were developed [...] the attending (teaching) pathologist. 4 8:33 PM [facility] Synoptic Report LUNG LUNG [...] ?? Additional Findings: ?Emphysema 4 8:33 PM [facility] Embedded Images 8:33 PM [facility] Biopsy, Excision RESECTED LUNG [...] Jimenez MD LAB - PATHOLO GY/CYTOLOGY ORDERABLES [facility] [address] [place] [address], [facility] [phone] * (ABNORMAL) CBC W/O DIFFERENTIAL (07/17/2024 10:41 AM CDT) WBC 9.1 4.0 - 10.7 x10E9/L 07/17/2024 11:[address] [facility] RBC Count 3.71(L) 4.30 - 5.80 x10E12/L 07/17/2024 11:[address] [facility] Hemoglobin 12.0(L) 13.3 - 17.5 g/dL 07/17/2024 11:[address] [facility] Hematocrit 37.3(L) 38.7 - 51.1 % 07/17/2024 11:[address] [facility] MCV 100.5(H) 80.0 - 98.0 fL 07/17/2024 11:[address] [facility] MCH 32.3 26.7 - 33.6 pg 07/17/2024 11:[address] [facility] MCHC 32.2 31.7 - 36.3 g/dL 07/17/2024 11:[address] [facility] RDW-CV 14.0 11.3 - 14.8 % 07/17/2024 11:[address] [facility] Platelet Count 240 150 - 420 x10E9/L 07/17/2024 11:[address] [facility] MPV 9.6 7.8 - 11.4 fL 07/17/2024 11:[address] [facility] Blood BLOOD SPECIMEN / Unknown Venipuncture / Unknown 07/17/2024 10:41 AM CDT 07/17/2024 10:53 AM T Augustine Jimenez MD LAB - HEMATOL OGY ORDERABLES [facility] [address] [place] [phone], [facility] [phone] * PHOSPHORUS BLOOD (07/17/2024 10:41 AM CDT) Phosphorus 4.7 2.8 - 5.1 mg/dL 07/17/2024 11:[address] [facility] Blood BLOOD SPECIMEN / Unknown Venipuncture / Unknown 07/17/2024 10:41 AM CDT 07/17/2024 10:53 AM CDT Augustine Jimenez MD LAB - CONTROL MANAGER RY ORDERABLES Performing Organization Address [facility]/ZIP Co de Phone Number [address] [phone], [facility] [phone] * MAGNESIUM BLOOD (07/17/2024 10:41 AM CDT) Magnesium 2.4 1.6 - 2.6 mg/dL 07/17/2024 11:[address] [facility] Blood BLOOD SPECIMEN / Unknown Venipuncture / Unknown 07/17/2024 10:41 AM CDT 07/17/2024 10:53 AM CDT Augustine Jimenez MD LAB - CONTROL MANAGER RY ORDERABLES Performing Organization Address [facility] Co de Phone Number [address] [phone], [facility] [phone] * (ABNORMAL) BASIC METABOLIC PANEL (CALCIUM TOTAL) (07/17/2024 10:41 AM CDT) BUN 73(H) 7 - 26 mg/dL 07/17/2024 11:[address] [facility] Creatinine 11.41(H) 0.71 - 1.16 mg/dL 07/17/2024 11:[address] [facility] Sodium 140 136 - 145 mmol/L 07/17/2024 11:[address] [facility] Potassium 5.0(H) 3.5 - 4.5 mmol/L 07/17/2024 11:21 AM [facility] Chloride 114(H) 98 - 107 mmol/L 07/17/2024 11:21 AM [facility] CO2 14(L) 22 - 29 mmol/L 07/17/2024 11:21 AM [facility] Glucose 90 70 - 99 mg/dL 07/17/2024 11:21 AM [facility] Calcium 9.0 8.4 - 10.2 mg/dL 07/17/2024 11:21 AM CDT [facility] Anion Gap 12 6 - 16 07/17/2024 11:21 AM CDT [facility] BUN/Creatinine Ratio 6(L) 7 - 23 07/17/2024 11:21 AM CDT [facility] Osmolality Calculated 311(H) 275 - 295 mOsm/kg 07/17/2024 11:21 AM T [facility] eGFR by CKD-EPI 4(L) >=90 mL/min/1.7 3 m2 07/17/2024 11:21 AM CDT [facility] HOSPITAL Blood BLOOD SPECIMEN / Unknown Venipuncture / Unknown 07/17/2024 10:41 AM CDT 07/17/2024 10:53 AM CDT Augustine Jimenez MD LAB - CONTROL MANAGER RY ORDERABLES Performing Organization Address City/[facility]/ZIP Co de Phone Number [facility] [address] [place] [id number], [place] [phone] * TYPE + SCREEN PANEL (07/17/2024 10:41 AM CDT) Antibody Screen NEG 11:28 AM CDT [facility] BLOOD BANK LAB ABO Rh O POS 07/17/2024 11:28 AM CDT [facility] BLOOD BANK LAB Blood Bank BLOOD SPECIMEN / Unknown Venipuncture / Unknown 07/17/2024 10:41 AM CDT 07/17/2024 10:46 AM CDT Augustine Jimenez MD LAB - BLOOD B ANK ORDERABLES [facility] BLOOD BANK LAB [address] [place] [address], [place] [phone] documented in this encounter Visit Diagnoses Diagnosis [...] bronchus or lung documented in this encounter Admitting Diagnoses Diagnosis Malignant neoplasm of upper lobe of right lung (HCC) Malignant neoplasm of upper lobe, bronchus or lung documented in this encounter Administered Medications Inactive Administered Medications - up to 3 most recent administrations Medication Order [facility] Action Action Date Dose Rate Site 0.9% NaCl infusion at 20 mL/hr, Intravenous, CONTINUOUS, Starting on Tue07/18/24 at 0545, Until Tue07/18/24 at 1545 $ New Bag/Syringe 07/18/2024 8:50 AM CDT 20 mL/hr acetaminophen (Tylenol) tablet 1,000 mg 1,000 mg, Oral, PRE-OP ONCE, 1 dose, On Tue07/17/24 at 1030, Patient preference for lesser PRN pain meds [...] first unless patient cannot tolerate oral intake, Pre-op $ Given 07/17/2024 10:42 AM CDT 500 mg acetaminophen (Tylenol) tablet 1,000 mg 1,000 mg, [...] 3 mL, Inhalation, POST-OP MULTIPLE, Starting on Tue07/17/24 at 1612, Until Tue07/17/24 at 2020, For wheezing. Notify anesthesia immediately., PACU $ Given 07/17/2024 4:56 PM CDT 3 mL albuterol-ipratropium (Duo-Neb) nebulizer solution 3 mL 3 mL, Inhalation, POST-OP MULTIPLE, Starting on Tue07/20/24 at 1820, Until 07/21/24 at 1215, For wheezing. Notify anesthesia immediately., PACU BUPivacaine liposome (Exparel) 1.3 % injection 266 mg 266 mg, Infiltration, INTRA-OP ONCE, 1 dose, On Tue07/17/24 at 1030, [facility] Formulary use restricted to intercostal nerve blocks in non-emergent thoracic surgery cases., Is this for non-emergent intercostal nerve block being used in minimally-invasive thoracic surgery (VATS/RATS) or open thoracotomy? Yes, Indication: VATS/RATS, Pre-op $ Given 07/17/2024 4:12 PM CDT 266 mg Operative Site diphenhydrAMINE (Benadryl) injection 25 mg [...] PRN, Moderate Pain, 4 doses, Starting on Tue07/17/24 at 1612, Until Tue07/17/24 at 2020, Maximum total of 4 doses. If patient [...] unless patient cannot tolerate oral intake, PACU $ Given 07/17/2024 5:27 PM CDT 50 mcg fentaNYL (PF) (Sublimaze) injection 50 mcg 50 mcg, Intravenous, EVERY 10 MIN PRN, Moderate Pain, 4 doses, Starting on Tue07/20/24 at 1820, Until Tue07/21/24 at 1215, Maximum total of 4 doses. [...] (Mucinex) tablet 600 mg 600 mg, Oral, Once, 1 dose, On Tue07/17/24 at 2345, Do not crush, chew, or cut in half. $ Given 07/18/2024 12:49 AM CDT 600 mg guaiFENesin ER 12hr (Mucinex) tablet 600 mg 600 mg, Oral, EVERY 12 HOURS, First dose on Tue07/18/24 at 1000, Until Discontinued, Do not crush, chew, or cut in half. $ Given 07/21/2024 8:41 AM CDT 600 mg $ Given 07/20/2024 8:01 PM CDT 600 mg $ Given 07/20/2024 8:52 AM CDT 600 mg heparin injection 4,800 Units 4,800 Units, Intracatheter, ONCE, 1 dose, On Tue07/18/24 at 1400, Post hd catheter lock 2.4 ml arterial lumen 2.4ml venous lumen $ Given 07/18/2024 2:34 PM CDT 4,800 Units HYDROmorphone (Dilaudid) injection 0.2 mg 0.2 mg, [...] PRN, Severe Pain, 4 doses, Starting on 07/17/24 at 1612, Until Tue07/17/24 at 1743, Maximum total of 4 doses If patient [...] unless patient cannot tolerate oral intake, PACU $ Given 07/17/2024 5:43 PM CDT 0.5 mg $ Given 07/17/2024 5:24 PM CDT 0.5 mg $ Given 07/17/2024 5:08 PM CDT 0.5 mg HYDROmorphone (Dilaudid) injection 0.5 mg 0.5 mg, Intravenous, ONCE, 1 dose, On Hiwot 07/19/24 at 0915, Patient preference for lesser PRN [...] patient cannot tolerate oral intake $ Given 07/19/2024 9:10 AM CDT 0.5 mg HYDROmorphone (Dilaudid) injection 0.5 mg 0.5 mg, [...] than 180, DBP greater than 100., PACU lactated ringers infusion at 20 mL/hr, Intravenous, PRE-OP CONTINUOUS, Starting on Tue07/17/24 at 1030, Until Tue07/17/24 at 1701, Pre-op Restarted 07/17/2024 4:44 PM CDT $ New Bag/Syringe 07/17/2024 2:38 PM CDT 20 mL/ hr $ New Bag/Syringe 07/17/2024 10:43 AM CDT 20 mL /hr methocarbamol (Robaxin) tablet 750 mg 750 mg, [...] Cowart RN)1338 ($ Given - Provider: Dianelys Cowart RN)2000 ($ Given - Provider: Anastasiia Dai RN) 0841 ($ Given - Provider: Soheila Santos RN) guaiFENesin ER 12hr (Mucinex) tablet 600 mg 600 mg, Oral, EVERY 12 HOURS, First dose on Tue07/18/24 at 1000, Until Discontinued, Do not crush, chew, or cut in half. 0845 ($ Given - Provider: Santiago Hanks RN)2050 ($ Given - Provider: Mariposa Caceres) 0852 ($ Given - Provider: Dianelys Cowart RN)2000 ($ Given - Provider: Anastasiia Dai RN) 0841 ($ Given - Provider: Soheila Santos RN) HYDROmorphone (Dilaudid) injection 0.5 mg (COMPLETED) 0.5 mg, Intravenous, ONCE, 1 dose, On Hiwot 07/19/24 at 0915, Patient preference for lesser PRN [...] first unless patient cannot tolerate oral intake 09 ($ Given - Provider: Santiago Hanks RN) [...] at 1731, Until Tue07/20/24 at 1737, Intra-op 173 ($ Given - Provider: Ernst Rivera MD) [...] 0918 ($ Given - Provider: Santiago Hanks RN)1735 ($ Given - Provider: Santiago Hanks RN) ondansetron (Zofran) injection 4 mg(Linked Group 1) 4 mg, Intravenous, EVERY 6 HOURS PRN, Nausea/Vomiting, Starting on Tue07/17/24 at 1635, Until 07/21/24 at 1215, Administer IV if patient is NPO, actively vomiting, or unable to swallow. 0918 (See Alternative - Provider: Santiago Hanks RN)173 (See Alternative - Provider: Santiago Hanks RN) [...] Post-op 0846 (See Alternative - Provider: Santiago Hanks, KOKI) prochlorperazine (Compazine) injection 10 mg 10 mg, [...] Post-op documented in this encounter Care Teams Embedded Systems Software Engineer Relationship Specialty Start Date End Date None, Physician [address] [place] [address] PCP - General 7/23/24 documented as of this encounter
--- OUTSIDE RECORDS SUMMARY | 2024-09-24 06:04 | XMS_ITS | Encounter Summary ---
Author Organization [facility] Address [address] [place] [address] Care Team Providers Care Assembler Deck And Hull Name Role Phone None, Physician Primary Care Provider Unavailabl e Reason for Visit * Reason Comments Pulmonary Function Test Encounter Details Date Type Department Care Team (Latest Contact Info) Description 06/26/2024 1:00 PM CDT Procedure visit [facility] - Pulmonology [address] [facility], [address] [place] [address] Lung nodule ; Malignant neoplasm of upper [...] and heating? Not hard at all 05/23/2024 [facility] [place] of Occupat ional Health - Occupational Stress [...] place to sleep or slept in a detention (including now)? No 05/23/2024 Sex and Gender Information Value Date Recorded Sex Assigned at Not on file Gender Identity Not on file Sexual Orientation Not on file documented as of this encounter Last Filed Vital Signs Vital Sign Reading Time Taken Comments Blood Pressure - - Pulse 94 06/26/2024 1:42 PM CDT Temperature - - Respiratory Rate - - Oxygen Saturation 98% 06/26/2024 1:42 PM CDT room air Inhaled Oxygen Concentration - - Weight 93.4 kg (206 lb) 06/26/2024 1:42 PM CDT Height 172.7 cm (5' 8 ) 06/26/2024 1:42 PM CDT Body Mass Index 31.32 06/26/2024 1:42 PM CDT documented in this encounter Functional [...] as of this encounter Progress Notes * Viraj Mesa MD - 06/26/2024 2:23 PM CDT Images from the original note were not included. PULMONARY FUNCTION TEST Interpretation: The flow volume loops and the volume time loops were reviewed and they were acceptable. The resultsshow normal forced vital capacity, normal forced expiratory volume in the 1st second, and normal FEV1/ FVC ratio. Lung volumes show normal total lung capacity and increased residual volume/total lung capacity ratio. Diffusion capacity is decreased. Impression: No obstructive defect, normal spirometry. There is significant response to bronchodilators and their clinical use is advised. Lung volumes show air trapping. The reduction in diffusion capacity could be seen in patients who have emphysema, interstitial lungdisease or pulmonary vascular disease. Please correlate clinically. Viraj Mesa MD, FCCP. Be advised that voice recognition software was used in the production of this record. Errors in interpretation may have been inadvertently missed during review. * Ciara Denney RCP - 06/26/2024 1:00 PM CDT Good patient effort and understanding noted with PFT. Post bronchodilator given with 2.5 mg Albuterol nebulized per ATS standards. Pre and post HR 92/102. Andrey Giron required a teaching session on the use of Albuterol nebulizer for treatment of bronchospasm. Andrey Giron understands proper use and was instructed on the proper technique. Oxygen Sat 97 on room air. documented in this encounter Plan of Treatment Upcoming Encounters Date Type Department Care Team (Late st Contact Info) Description 10/16/2024 1:30 PM TOOL INSPECTOR Office Visit [facility] - ENT [address] [place] [phone] Ritesh Mensah MD [address] [place] [address] documented as of this encounter Visit Diagnoses Diagnosis Lung nodule- Primary Solitary pulmonary nodule Malignant neoplasm of upper lobe of right lung (HCC) Malignant neoplasm of upper lobe, bronchus or lung documented in this encounter Administered Medications Inactive Administered Medications - up to 3 most recent administrations Medication Order MAR Action Action Date Dose Rate Site albuterol (Proventil;Ventolin) (2.5 MG/3ML) 0.083% nebulizer solution 2.5 mg 2.5 mg, Inhalation, ONCE, 1 dose, On Tue06/26/24 at 1400 $ Given 06/26/2024 2:06 PM CDT 2.5 mg See C omments documented in this encounter Care Teams Assembler Deck And Hull Relationship Specialty Start Date End Date None, Physician [address] [place] [address] PCP - General 04/10/24 documented as of this encounter
--- OUTSIDE RECORDS SUMMARY | 2024-09-24 06:04 | XMS_ITS | Encounter Summary ---
Author Organization [facility] Address [address] [facility] [address] Care Team Providers Care Glove Cuffer Name Role Phone None, Physician Primary Care Provider Unavailabl e Reason for Visit * Reason Onset Date Comments Appointment 07/03/2024 New surgery Encounter Details Date Type Department Care Team (Late st Contact Info) Description 07/03/2024 Telephone [facility] - Cardiothoracic Surgery [address] [facility], [place] [address] Augustine Jimenez MD [address] [facility] [address] [place] [address] Appointment (New surgery) Social History Tobacco Use Types Packs/Day Years [...] and heating? Not hard at all 05/23/2024 [facility] of Occupat ional Health - Occupational Stress [...] Telephone Encounter - Molly Cowart MA - 07/03/2024 9:52 AM CDT Called Barry @ [phone] spoke with him about rescheduling Andrey Whittaker surgery. Barry states he will give me a call back around 3 pm for Andrey new surgery date and time. Email sent to Barry with new date and time : [email or web address] INSTRUCTIONS *PLEASE READ THIS ENTIRE SHEET OF INSTRUCTIONS* Augustine Jimenez M.D. Thoracic Surgeon Clinic address: [address] [place] [address], [address] [address] DOOR 2, underneath the surgery sign [facility] OFFICE:[phone], FAX: [phone] SURGERY DATE AND TIME *PLEASE NOTE THAT SURGERY TIMES OFTEN CHANGE DUE TO EMERGENT CASES BEING ADDED, THE OR WILL CALL YOU THE DAY BEFORE SURGERY WITH A TIME TO ARRIVE, PLEASE ARRIVE AT THE TIME THEY PROVIDE YOU* ANDREY WHITTAKER HAS BEEN SCHEDULED FOR VATS LEFT UPPER LOBE LINGULAR SPARING SEGMENTECTOMY SURGERY AT [address] ON: 07/17/24 YOU WILL NEED TO ARRIVE AT [facility] (1ST FLOOR) AT [place] IN THE [place] AND TAKE THE ORANGE ELEVATORS TO THE 1ST FLOOR 9:15 AM YOUR SURGICAL PROCEDURE WILL BEGIN AT APPROXIMATELY 11:15 AM IF YOU ARE TAKING ANY OF THE FOLLOWING SUPPLEMENTS PLEASE STOP TAKING THEM 1 WEEK PRIOR TO SURGERY: -Fish oil -Vitamin E -Tumeric -Obi bishop -Dong quai root -Echinacea -Ephedra -Feverfew -Garlic capsules -Helen capsules -Gingko biloba -Cheung seal -Kava -Senna -Audie's wort -Valerian PREADMISSION TESTING PLEASE HAVE [facility] DRAW LABS A NURSE FROM OUR PREADMISSION [...] LIST IF YOU HAVE TROUBLE REMEMBERING THEM. IF IT HAS BEEN DECIDED YOU DO NOT NEED A PREADMISSION TESTING APPOINTMENT AN ANESTHESIOLOGIST IN THE PREADMISSION TESTING DEPARTMENT WILL CALL YOU PRIOR TO SURGERY TO REVIEW YOUR MEDICATIONS AND HEALTH HISTORY. THE OR WILL CALL YOU THE DAY [...] AND ARRIVAL TIME DO NOT WEAR NAIL CITIZEN OF [place], BODY PIERCING'S, OR CONTACT LENSES PLEASE LEAVE [...] [facility] OR [facility]) THE DAY OF YOUR SURGERY TO [...] our office. Fax all FMLA forms to [phone]. Please contact Molly ([phone]) our computer processing scheduler for any concerns regarding your paperwork. QUESTIONS OR POST OPERATIVE CONCERNS/COMPLICATIONS PLEASE CALL: Rowena Sanchez: Clinical RN: [phone] Hours: 8 AM-4 PM Tuesday-Tuesday Molly Cowart: space scheduler: [phone] Hours: 8 AM-4 PM Tuesday-Tuesday Office: [phone] option # 1 Thoracic Surgery Hours: 8 [...] surgery. Your postop visit is scheduled on: 07/30/24 @ 11:20 AM [address] [facility], [address] [address] DO[address] 2, underneath the surgery sign with DR. TAM Please review the following instructions for your [...] trapped under your skin) please call Rowena TELLES immediately or report to an ER or [...] IF YOU ARE UNSURE CALL ROWENA RN: [phone] OR THE EXCHANGE: [phone] Option 1 Thoracic Surgery FOR AFTER OFFICE HOURS AND WEEKENDS Office Hours: 8 AM - 4 PM Tuesday-Tuesday Warmest regards, Rowena Gar RN [phone] Grace Target Worker, RL [phone] Dr. Augustine Jimenez MD Thoracic Surgeon documented in this encounter Plan of Treatment Upcoming Encounters Date Type Department Care Team (Late st Contact Info) Description 10/16/2024 1:30 PM GLYCERIN OPERATOR Office Visit [facility] - ENT [address] [place] [phone] Ritesh Mensah MD [address] [place] [address] DE[place] [address] documented as of this encounter Visit Diagnoses Not on filedocumented in this encounter Care Teams Glove Cuffer Relationship Specialty Start Date End Date None, Physician [address] [place] [address] PCP - General 04/10/24 documented as of this encounter
--- OUTSIDE RECORDS SUMMARY | 2024-09-24 06:04 | XMS_ITS | Encounter Summary ---
Author Organization [facility] Address [address] [facility] [address] [address] Care Team Providers Care Javascript Ui Developer Name Role Phone None, Physician Primary Care Provider Unavailabl e Encounter Details Date Type Department Care Team (Latest Contact Info) Description 06/18/2024 Travel Social History Tobacco Use Types Packs/Day [...] and heating? Not hard at all 05/23/2024 [facility] [place] of Occupat ional Health - Occupational Stress [...] st Contact Info) Description 10/16/2024 1:30 PM VENDOR ANALYST Office Visit [facility] - ENT [address] [place] [phone] Ritesh Mensah MD [address] [place] [address] [place] [address] documented as of this encounter Visit Diagnoses Not on filedocumented in this encounter Care Teams Javascript Ui Developer Relationship Specialty Start Date End Date None, Physician [address] [place] [address] PCP - General 04/10/24 documented as of this encounter
--- OUTSIDE RECORDS SUMMARY | 2024-09-24 06:04 | XMS_ITS | Encounter Summary ---
Author Organization [facility] Address [address] [place] [address] Care Team Providers Care Stadium Attendant Name Role Phone None, Physician Primary Care Provider Unavailabl e Reason for Visit * Reason Onset Date Comments Late Cancel 07/03/2024 Encounter Details Date Type Department Care Team (Late st Contact Info) Description 07/03/[address] [facility] - Surgery [address], [address] [place] [address] Blair Cedeno MA Late Cancel Social History Tobacco Use Types Packs/Day Years Used Date Smoking Tobacco: Every Day Cigarettes 1 51 Smokeless Tobacco: Never Comments:Down to less than h prison a pack daily Alcohol Use Standard Drinks/Week [...] and heating? Not hard at all 05/23/2024 [facility] [place] of Occupat ional Health - Occupational Stress [...] encounter Miscellaneous Notes * Telephone Encounter - Blair Cedeno MA - 07/03/2024 8:45 AM CDT [phone] Barry from the [employer] [facility] called to cx pt's surgery scheduled for today. Lab reports are not back and there is a transportation issue. Barry asked to be called on his cell phone so that he can manage rescheduling so that this does not happen again. Called Steph to give her this info. documented in this encounter Plan of Treatment Upcoming Encounters Date Type Department Care Team (Late st Contact Info) Description 10/16/2024 1:30 PM ACCOUNT RESOLUTION EXPERT Office Visit [facility] - ENT [address] [place] [phone] Ritesh eMnsah MD [address] [place] [address] [place] [address] documented as of this encounter Visit Diagnoses Not on filedocumented in this encounter Care Teams Stadium Attendant Relationship Specialty Start Date End Date None, Physician [address] [place] [address] PCP - General 04/10/24 documented as of this encounter
--- OUTSIDE RECORDS SUMMARY | 2024-09-24 06:04 | XMS_ITS | Encounter Summary ---
Author Organization [facility] Address [address] [place] [address] Care Team Providers Care Black Jack Dealer Name Role Phone None, Physician Primary Care Provider Unavailabl e Encounter Details Date Type Department Care Team (Latest Contact Info) Description 07/25/2024 Travel Social History Tobacco Use Types Packs/Day [...] and heating? Not hard at all 05/23/2024 [facility] [place] of Occupat ional Health - Occupational Stress [...] No 07/17/2024 documented as of this encounter Plan of Treatment Upcoming Encounters Date Type Department Care Team (Late st Contact Info) Description 10/16/2024 1:30 PM SERVICE SPECIALIST Office Visit [facility] - ENT [facility] [place] [phone] Ritesh Mensah MD [address] [place] [address] DE[place] [address] documented as of this encounter Visit Diagnoses Not on filedocumented in this encounter Care Teams Black Jack Dealer Relationship Specialty Start Date End Date None, Physician [facility] [place] [address] PCP - General 04/10/24 documented as of this encounter
--- OUTSIDE RECORDS SUMMARY | 2024-09-24 06:04 | XMS_ITS | Encounter Summary ---
Author Organization [facility] Address [address] [place] [place] [address] Care Team Providers Care Sewer Inspector Name Role Phone None, Physician Primary Care Provider Unavailabl e Encounter Details Date Type Department Care Team (Late st Contact Info) Description 07/24/2024 Orders Only [facility] - Cardiothoracic Surgery [address] [facility], [place] [address] Augustine Jimenez MD [address] [facility] [address] [place] [address] Malignant neoplasm of upper lobe of right lung (HCC) Social History Tobacco Use Types Packs/Day Years Used Date Smoking Tobacco: Every Day Cigarettes 1 51 Smokeless Tobacco: Never Comments:Down to less than h shelter a pack daily Alcohol Use Standard Drinks/Week [...] and heating? Not hard at all 05/23/2024 [facility] [place] of Occupat ional Health - Occupational Stress [...] place to sleep or slept in a usp (including now)? No 05/23/2024 Sex and Gender [...] st Contact Info) Description 10/16/2024 1:30 PM UTILITY PIPE LAYER Office Visit [facility] - ENT [address] [place] [phone] Ritesh Mensah MD [address] [place] [address] Scheduled Orders Name Type Priority Associated Diagnoses Orde r Schedule XR Chest 2Vw Imaging Routine Malignant neoplasm of upper lobe of right lung (HCC) 1 Occurrences starting 07/24/2024 until 07/24/2025 documented as of this encounter Visit Diagnoses Diagnosis Malignant neoplasm of upper lobe of right lung (HCC)- Primary Malignant neoplasm of upper lobe, bronchus or lung documented in this encounter Care Teams Sewer Inspector Relationship Specialty Start Date End Date None, Physician [address] [place] [address] PCP - General 04/10/24 documented as of this encounter
--- OUTSIDE RECORDS SUMMARY | 2024-09-24 06:05 | XMS_ITS | Encounter Summary ---
Author Organization [facility] Address [address] [place] [address] Care Team Providers Care Misdraw Hand Name Role Phone None, Physician Primary Care Provider Unavailabl e Reason for Visit * Auth/Cert (Routine) Specialty Diagnoses / Procedures Referred By Contac t Referred To Contact Diagnoses Basal cell carcinoma (BCC) of lateral side wall of nose Basal cell carcinoma (BCC) of lateral side wall of nose Procedures ND RECONSTR NOSE RHINOPLASTY Referral ID Status Reason Start Date Expiration Date Visits Re quested Visits Authorized [id number] 1 1 Encounter Details Date Type Department Care Team (Late st Contact Info) Description 05/23/2024 12:24 PM CDT Anesthesia Event [facility] [address] [place] [address] Rainer Jackson DO [address] [facility] [place] [address] Anesthesia Record Procedure Summary Procedure Name Responsible Anesthesiologist Anesthesia Start Time Anesthesia Stop Time RECONSTRUCTION LEFT NASAL/CHEEK DEFECT, WOUND DEBRIDEMENT, SKIN GRAFT (Left: Nose) Rainer Jackson DO 05/23/24 1224 05/23/24 1544 Events Date Time Event Comment 05/23/2024 1048 1224 An Start 1224 Pt In Room 1224 An Start Data 1229 PT Reassessment 1230 Induction 1232 An Intubation 1236 Anes Ready 1306 Timeout Anesthesia part icipated in timeout at the time documented in the record by nursing. 1306 Time Out Anesthesia part icipated in timeout at the time documented in the record by nursing 1308 Quick Note Pt overbreathin g vent. Started moving. Valente, prop, and fent given. Checked IV. patent 1309 Proc Start 1353 Quick Note Pt overbreathin g vent again. 4/4 twitches. Valente given 1514 Proc Stop 1532 An Emergence 1534 Extubation 1544 ANPTO2 1544 an stop data 1544 Pt out of Room 1544 An Stop Meds Name Total ceFAZolin 2,000 mg IVPB 2 g fentaNYL 100 mcg/2ml injection 400 mcg lidocaine PF 2% 100 mg propofol 200mg/20mL injection 200 mg rocuronium 50 mg/5 mL injection 130 mg phenylephrine 100 mcg/mL syringe 900 mcg ondansetron 4mg/2mL injection 4 mg calcium chloride 10% injection 0.5 g vasopressin (Vasostrict) 40 Units in dex trose 5 % 40 mL infusion 1 Units phenylephrine 20 mg in 250 mL 4.83 mg dexmedeTOMIDine (Precedex) 4 mcg/mL syri nge 36 mcg sugammadex 200 mg/2mL injection 200 mg LR (Lactated ringers) 500 mL * Agents Name Insp. N2O Exp. Sevoflurane Exp. N2O O2 Air Insp. Sevoflurane * Blood No blood administrations on file. Lines, Drains, and Airways Type Details Placement Removal Hemodialysis Tunneled Catheter 01/18/24; 0000; Place 4 months ago per pt; Internal Jugular; Right 01/18/24 0000 by Dina Brown RN Nephrostomy Tube Outside Facility; 05/18/24; 1320; Back, Left 05/18/24 1320 by Aicha Major RN Nephrostomy Tube Outside Facility; 05/18/24; 1321; Back, Right 05/18/24 1321 by Aicha Major RN Procedural Site (Incision) 05/22/24; 1305; Nose; 05/24/24; 1513 05/22/24 1305 by Irma Ruiz RN 05/24/24 1513 by Generic, Auto Release Peripheral IV Date: 05/22/24; Time : 1502; Orientation: Posterior, Left; Location: Hand; Gauge: 20 G 05/22/24 1502 by Magdalena Marley RN 05/24/24 0904 by Ramy William RN ETT Date: 05/23/24; Time : 1232; Placed By: HERIBERTO Linares; Vent: easy with oral airway mask; Induction: Standard IV; Blade Type: Mati; Blade Size: 4; Laryngoscopy View: Grade 1 (full cords); Intubation Adjuncts: Stylet; Tube: Endotracheal Tube; Placement: Oral; Tube Type: Cuffed-inflated; Tube Size(mm): 8 MM; Depth of Insertion: 23 CM; Measured From: gum; Attempts: 1; Cuff Infated: Air; Verified By: Direct visualization, Chest Auscultation, CO2 Monitor 05/23/24 1232 by Daren Quiroz APRN-CRNA 05/23/24 1534 by Daren Quiroz APRN-CRNA Procedural Site (Incision) 05/23/24; 1305; Upper; Face; forehead flap; 05/24/24; 1513 05/23/24 1305 by Zo Yoon RN 05/24/24 1513 by Humberto, Auto Release documented in this encounter Social [...] and heating? Not hard at all 05/23/2024 [facility] - Occupational Stress [...] place to sleep or slept in a [facility] (including now)? No 05/23/2024 Sex and Gender Information Value Date Recorded Sex Assigned at Not on file Gender Identity Not on file Sexual Orientation Not on file documented as of this encounter Functional Status Functional Status Response Date of Assess ment Is person deaf or have serious hearing difficult y? No 05/18/2024 Is person blind or have serious difficulty seein g? No 05/18/2024 Does person have serious dif ficulty walking/climbing stairs? No 05/18/2024 Does person have difficulty dressing/bathing? No 05/18/2024 Does person have difficulty doing errands alone? No 05/18/2024 Cognitive Status Response Date of Assessm ent Does person have difficulty concentrating/remembering/making decisions? No 05/18/2024 documented as of this encounter Progress Notes * Catalina Marshall DO - 05/24/2024 7:47 AM CDT ANESTHESIA POSTOP EVALUATION NOTE Procedure: RECONSTRUCTION LEFT NASAL/CHEEK DEFECT, WOUND DEBRIDEMENT, SKIN GRAFT (Left: Nose) FOREHEAD FLAP (Head) Andrey Giron is a 63 year old male Patient Vitals for the past 6 hrs: BP Temp Pulse Resp SpO2 05/24/24 0420 121/78 98.2 ??F (36.8 ??C) 66 16 95 % Anesthesia Type: general ETT Pre-op Diagnosis Codes: * Basal cell carcinoma (BCC) of left side of nose [C44.311] Mental Status: awake, alert, oriented, sufficiently recovered from acute administration of anesthesia to participate in the evaluation and neurologic status has returned to preoperative level Neuro Status: No numbness, tingling or visual disturbances Respiratory Function: natural Cardiac Function: stable Postop Pain: acceptable to the patient Postop Hydration: adequate Postop Nausea: none Assessment: no apparent anesthetic complications, patient tolerated procedure well and no evidence of recall Patient Disposition: Release from Anesthesia Care NOTABLE EVENTS: No notable events documented. * Rainer Jackson DO - 05/23/2024 4:24 PM CDT ANESTHESIA POSTOP EVALUATION NOTE Procedure: RECONSTRUCTION LEFT NASAL/CHEEK DEFECT, WOUND DEBRIDEMENT, SKIN GRAFT (Left: Nose) FOREHEAD FLAP (Head) Andrey Giron is a 63 year old male Patient Vitals for the past 6 hrs: BP Temp Pulse Resp SpO2 Pain Rating Score #1 Pain Scale/Observation 05/23/24 1033 134/74 -- 109 18 -- -- -- 05/23/24 1048 110/69 -- 87 18 -- -- -- 05/23/24 1103 101/61 -- 80 18 -- -- -- 05/23/24 1120 102/66 98.5 ??F (36.9 ??C) 79 18 98 % 0 N 05/23/24 1150 109/66 -- 89 18 95 % 0 N 05/23/24 1200 118/78 97.5 ??F (36.4 ??C) 99 21 94 % -- -- 05/23/24 1201 118/78 -- 100 12 93 % -- -- 05/23/24 1215 119/74 -- 101 13 93 % -- -- 05/23/24 1540 124/78 98.7 ??F (37.1 ??C) 96 12 97 % 0 N;F;B 05/23/24 1545 115/76 -- 92 12 93 % -- -- 05/23/24 1550 111/73 -- 93 12 (!) 88 % -- -- 05/23/24 1555 116/68 -- (!) 113 10 95 % 0 N;F;B 05/23/24 1600 98/59 -- 88 12 92 % -- -- 05/23/24 1610 104/68 -- 86 9 90 % 0 N;F;B Anesthesia Type: general ETT Pre-op Diagnosis Codes: * Basal cell carcinoma (BCC) of left side of nose [C44.311] Mental Status: awake, alert, oriented and sufficiently recovered from acute administration of anesthesia to participate in the evaluation Neuro Status: No numbness, tingling or visual disturbances Respiratory Function: natural Cardiac Function: stable Postop Pain: acceptable to the patient Postop Hydration: adequate Postop Nausea: none Assessment: no apparent anesthetic complications, patient tolerated procedure well and no evidence of recall Patient Disposition: Follow Up Needed NOTABLE EVENTS: No notable events documented. * Rainer Jakcson DO - 05/23/2024 10:45 AM CDT ANESTHESIA PREOPERATIVE EVALUATION NOTE Procedure: RECONSTRUCTION LEFT NASAL/CHEEK DEFECT, WOUND DEBRIDEMENT, ADJACENT TISSUE TRANSFER, POSSIBLE SKIN GRAFT (Nose) POSSIBLE FOREHEAD FLAP (Head) NPO status: Since Midnight (05/23/2024 3:23 AM) Vitals: Patient Vitals for the past 6 hrs: BP Temp Pulse Resp SpO2 Pain Rating Score #1 05/23/24 1033 134/74 -- 109 18 -- -- 05/23/24 1018 116/66 -- 79 18 -- -- 05/23/24 1003 98/66 -- 75 18 -- -- 05/23/24 0948 104/66 -- 72 18 -- -- 05/23/24 0933 104/76 -- 91 18 -- -- 05/23/24 0918 108/63 -- 71 18 -- -- 05/23/24 0903 106/69 -- 71 18 -- -- 05/23/24 0848 110/68 -- 73 18 -- -- 05/23/24 0833 119/70 -- 88 18 -- -- 05/23/24 0818 113/61 -- 65 18 -- -- 05/23/24 0803 109/66 -- 69 18 -- -- 05/23/24 0748 108/70 -- 66 18 -- -- 05/23/24 0733 112/69 -- 62 18 -- -- 05/23/24 0720 113/70 98 ??F (36.7 ??C) 63 18 98 % 0 LMP: No LMP for male patient. OB Status: unknown ANESTHESIA PRE-EVALUATION NOTE History of Present Illness: Andrey Giron is a 63 year old male who is s/p L partial rhinectomy yesterday for basal cell carcinoma of nose, now scheduled for planned follow-up reconstruction L nasal/cheek defect today with debridement and adjacent tissue transfer with Dr. Mensah. Tolerated GA well yesterday. PMHx is otherwise significant for ESRD on HD (MWF) via right arm AVF & tunneled IJ catheter, HTN, COPD, obesity, hepatitis C and anemia (s/p blood transfusion spring 2023). Denies prior complications from anesthesia. Functional capacity: > or equal to 4 METs with no cardiopulmonary symptoms Last HD this AM. Previous Airway Management: ETT Placed: Intubation Adjuncts: cricoid Blade Type: MAC Blade Size: 4 GradeGrade: 1 The patient is a current smoker (cigarrettes 1/2 ppd). The patient was instructed to abstain from smoking on day of procedure. Physical Exam: Orientation X3 Airway/Mallampati Score: II Mouth Opening Distance: 3 fingerwidths Neck ROM: full TM Distance: < 3 FB Teeth: edentulous Heart: normal - S1 S2 Lungs: clear to ausculation bilaterally Abdomen Exam: soft Physical Exam Additional Comments: Neph tubes Review of Systems: History of anesthetic complications: No Sleep Apnea Risk: No Malignant Hyperthermia: No GERD: No Poor Exercise Tolerance: No Recent Chest Pain: No Shortness of Breath: No AICD/Pacemaker: No Renal Disease: Yes (ESRD), patient on regularly scheduled dialysis Diagnostic Tests: Lab(s) reviewed: Yes (05/23/24: Na 138, K 4.4, Glucose 108, Hgb 11.5). Other Findings: CT Chest 04/17/24: 1. Spiculated and mildly lobulated pulmonary nodule at the left lung apex abutting the pleura measures 2.1 x 2.0 x 1.8 cm. Highly suspicious for malignancy, tissue sampling or PET CT scan as well as CT of the chest are recommended for further characterization. 2. There is a 1.1 cm right paratracheal mediastinal lymph node which is suspicious for metastatic disease above pulmonary nodule. 3. Cervical spondylosis, worse at C5-C6 with possible cord compression. MRI of the cervical spine is recommended for further evaluation of possible cord compression. PET 05/07/24: 1. Hypermetabolic left apical pulmonary nodule suspicious for malignancy. 2. No FDG avid mediastinal lymphadenopathy. 3. Left nasal region with increased FDG uptake compatible with known diagnosis of basal cell carcinoma. No FDG avid cervical lymphadenopathy. Start of PAT Evaluation: - if BP is poorly controlled (eg SBP >180 or DBP >110) then contact Dr. Adame or SHERIN - if patient taking MARIA-I or ARB or Entresto then hold ONLY AM dose on DOS unless severe CHF or poorly controlled HTN This evaluation was based on phone / chart review I. Perioperative Cardiac Risk Index Stratification based on 2014 ACC/AHA Guidelines for patients undergoing noncardiac surgery Perioperative risk of a Major Adverse Cardiac Event (MACE) during hospitalization. Add one point (0-6) for each positive RCRI (Revised Cardiac Risk Indicator) 1. Is the Surgical Procedure High-Risk? NO 2. History of Ischemic Heart Disease? NO If yes then paste summary of most recent cath / stress tests under Other Additional Findings/Comments section above: 3. History of CHF? no If yes then paste summary of most recent TTE / KATIE under Other Additional Findings/Comments sectionabove: Murmur? unknown if yes and without recent echocardiogram then may need TTE contact Dr. Adame or SHERIN 4. History of Cerebrovascular Disease? Prior TIA or stroke no If yes then paste summary of most any relevant neurovascular imaging or carotid duplex results under Other Additional Findings/Comments section above: Carotid bruit? unknown if yes AND h/o CVA/ TIA then may need carotid duplex - contact Dr. Deep Chang 5. Insulin-Dependent Diabetes? no No results for input(s): HGBA1C , A1C , [id number] , EAG inthe last 63135 hours. Insulin pump? no if yes then patient was instructed to continue at 75% basal rate on DOS, AND 1164 placed? no 6. Preoperative Creatinine > 2 mg/dl? yes Recent Labs Component Name 05/23/24 0724 05/22/24 1454 POTASSIUM 4.4 3.9 CO2 21* 21* BUN 59* 49* CREATININE 10.53* 9.55* EGFR 5* 6* GLUCOSE 108 98 CALCIUM 8.6 9.4 Recent Labs Component Name 05/22/24 1454 WBC 8.1 HGB 11.5* HCT 33.6* PLTCOUNT 198 Total RCRI / MACE score 1 Point >= 0.9% Functional capacity > 4 METS? yes If MACE < 1%, no further testing required. Proceed to surgery. Patient is at low risk of MACE. If MACE > 1% Elevated risk. Need to assess the patient's functional capacity. 4 METs = Can walk up a flight of steps or a hill or walk on level ground at 3 mph If > 4 METs. Proceed to surgery unless further workup needed If < 4 METs or unknown functional capacity then discuss with attending, as further workup may beindicated. II. Consults: NO Copy and paste relevant results and follow ups III. CIEDs: Does patient have a CIED (cardiovascular implantable electronic device eg: PM, AICD)? no If yes then copy and paste interrogation report here. Timing of interrogation should be within 1 year for PM and Within 6 months for AICD [place] Information needed (operator bearer systems, mode, indication for CIED, battery life, magnet function): Call [phone] with all patients with CIEDs: IV. Anticoagulants: Are they receiving antiplatelet/anticoagulant medications (besides ASA)? What is the periop plan? NO No results for input(s): APT , INR , PTT in the last 23777 hours.6 V. Previous blood transfusion? yes If potential for large EBL: then obtain 1st T&S in PAT clinic (unless previously done and no transfusions since). Order repeat T&S (aka re-type) for DOS :If chart review only and h/o previous transfusions without recent T&S, then need to come in for T&S as above and order retype for DOS Patients with previous transfusions may have developed alloantibodies to donor RBC surface antigens, which may cause hemolytic or delayed hemolytic transfusion reactions upon subsequent exposure to donor PRBCs. Patients with chemotherapy agents: Daratumunab, Isatuximab, or Magrolimab may develop pseudoantibodies that may mask underlying HLA antibodies and will need a send out T&S if positive . Known BRENDA or STOP-BANG> 5: no Snoring, Tired, Observed apnea, high blood Pressure, BMI>35, Age>50, Neck circumference>18 If yes then: update [facility] problem list to include: BRENDA If patient has already diagnosed BRENDA and is being admitted then initiate order set: BRENDA --> Pul Inpatient Sleep Apnea Standing orders (order set 4525) 1. Also click Home CPAP for hospital use if applicable. 2. Select Phase of Care under options tab in upper right corner. 3. Choose post-op and sign (not sign and hold) phase of care and select the scheduled procedure. Remind patient to bring home unit if staying overnight. If pt has STOP-BANG >=5 with undiagnosed BRENDA and is being admitted then order: IP Consult to Home Energy Auditor (comment regarding consult for undiagnosed BRENDA) - Follow steps 2 and 3 above If pt has STOP-BANG >=5 with undiagnosed BRENDA and is outpatient and interested in setting up a sleep study then: - send MedNews message to FAYE and cc Dr. Adame Patient was educated about the potential implications of BRENDA on their perioperative course and recommendations for follow-up care were addressed - including inpatient consult(s) as above? no VII. Known or suspected difficult airway no and complete previous airway management section above If yes then: update [employer] problem list to include: difficult airway and call Dr. Adame or AIC VIII. Frailty screen: No data recorded IX. Suboxone (Buprenorphine / Naloxone) therapy? N/A X. GLP-1 Agonists No XI. Most recent EKG: EKG needed within 3-6 months if: (ASA >= 3 OR any RCRI) AND non-low risk procedure No results found for this or any previous visit. XII. Additional testing needed within 3 months prior to DOS (if possible, else on DOS): - CBC w/o Diff if ASA >= 3 OR expected blood loss >250 OR previously abnormal - BMP is ASA >= 3 OR taking diuretics, K+ supplements, MARIA-I, ARBs OR any RCRI - CMP (instead of BMP) for patient with chronic liver disease or previously abnormal - PT/ PTT/ INR if recent use of anticoagulants OR scheduled for major vascular procedures includingaortic and carotid stents / aneurysm coiling / TIPS Additional testing needed on DOS : - EPOC blood glucose for patients w/ DM - EPOC whole blood K+ for patient with ESRD or poorly controlled K+ Labs ordered today none Labs/tests ordered for or in need of review on DOS: poc whole blood K+ Summary: Andrey Giron is a 63 year old male presenting for RECONSTRUCTION LEFT NASAL/CHEEK DEFECT, WOUNDDEBRIDEMENT, ADJACENT TISSUE TRANSFER, POSSIBLE SKIN GRAFT (Nose) POSSIBLE FOREHEAD FLAP (Head). They have an ASA score of 3 and a RCRI / MACE score of 1 Point >= 0.9% Follow up results - have ALL the above ordered labs and vital signs been reviewed? YES - with the following notable abnormalities Hgb 11.5 They ARE OPTIMIZED - PAT EVALUATION COMPLETE Rainer Jackson DO 05/23/2024 10:45 AM for this procedure. Vital signs updated in chart AND right click to make editable? no Preoperative plan was not discussed w/ PAT attending XIII. Home meds No current facility-administered medications on file prior to encounter. Current Outpatient Medications on File Prior to Encounter Medication Sig Dispense Refill acetaminophen (Tylenol) 500 MG tablet Take 1 (one) tablet by mouth every 8 hours as needed diphenhydrAMINE (Benadryl) 25 mg/50 mL infusion Take 25 (twenty five) mg by mouth every 6 hours as needed finasteride (Proscar) 5 MG tablet Take 1 (one) tablet by mouth once daily sevelamer (Renagel) 800 MG tablet Take 2 (two) tablets by mouth 3 times daily with meals tamsulosin (Flomax) 0.4 MG capsule Take 1 (one) capsule by mouth once daily XIV. Allergies No Known Allergies End of PAT Evaluation: ANESTHESIA PLAN ASA Score: 3 NPO Status: No solids for 8 hours and No liquids within 2 hours Anesthesia Plan: general ETT Planned Induction: intravenous Planned Postop Destination: PACU Anesthetic plan was discussed with: patient Anesthetic Plan discussion was: Consented Use of blood products were discussed with: patient Use of blood product discussion was: Consented The patient's procedural Anesthetic Plan was discussed with the resident, anesthesiologist library circulation assistant and MANAGER FIXED INCOME. Overall additional findings/comments: I have reviewed the patient's chart and have interviewed the patient. I have examined the patient and have reviewed the plan with the patient. I agree with the documentation and have discussed the anesthesia plan and the patient agrees. Discussed risks of anesthesia including but not limited to dental injuries, problems with the heart, liver, kidneys, breathing, bleeding, adverse medication reactions that can lead to heart attack, stroke, . Also discussed possible arterial line, possible central line, possible blood transfusion, possible post-op mechanical ventilation. Patient expressed understanding and wishes to proceed. Rainer Jackson Attending Anesthesiologist 05/23/2024 10:45 AM . BMI, Height, Weight Tobacco History Estimated body mass index is 31.75 kg/m?? as calculated from the following: Height as of this encounter: 1.727 m (5' 8 ). Weight as of this encounter: 94.7 kg (208 lb 12.8 oz). Social History Tobacco Use Smoking Status Every Day Packs/day: .5 Types: Cigarettes Smokeless Tobacco Never Alcohol History Drug History Social History Substance and Sexual Activity Alcohol Use Not Currently Social History Substance and Sexual Activity Drug Use Never Outpatient Medications: Inpatient Medications: Outpatient Medications Marked as Taking for the 05/22/24 encounter (Hospital Encounter) Medication Sig Last Dose acetaminophen Take 1 (one) tablet by mouth every 8 hours as needed 05/21/2024 diphenhydrAMINE Take 25 (twenty five) mg by mouth every 6 hours as needed 05/21/2024 finasteride Take 1 (one) tablet by mouth once daily 05/22/2024 at 0600 sevelamer Take 2 (two) tablets by mouth 3 times daily with meals 05/21/2024 tamsulosin Take 1 (one) capsule by mouth once daily 05/22/2024 at 0600 Current Facility-Administered Medications Medication Dose Last Admin 0.9% NaCl IV New Bag at 05/22/24 1517 acetaminophen 650 mg 650 mg at 05/22/242033 calcium carbonate 2 tablet dextrose 5 % and 0.45% NaCl New Bag at 05/23/24 0156 diphenhydrAMINE 25 mg finasteride 5 mg heparin 1,000 Units ondansetron (disintegrating) 4 mg Or ondansetron 4 mg oxyCODONE (immediate release) 5 mg Or oxyCODONE (immediate release) 10 mg 10 mg at 05/22/242033 oxymetazoline 1 spray polyethylene glycol 3350 17 g saline nasal spray 1 spray sevelamer carbonate 800 mg 800 mg at 05/22/241945 tamsulosin 0.4 mg Allergies: No Known Allergies Relevant Problems Problem List: Patient Active Problem List Diagnosis Date Noted Basal cell carcinoma (BCC) of left nasal sidewall 05/22/2024 Priority: Not Prioritized Medical History: Past Medical History: Diagnosis Date Basal cell carcinoma ESRD on dialysis (HCC) M/W/F History of blood transfusion Surgical History: Past Surgical History: Procedure Laterality Date INSERTION DIALYSIS CATHETER Right tunneled IJ VASCULAR PROCEDURE/SURGERY 04/12/2024 CREATION ARTERIOVENOUS FISTULA DIRECTOR [employer]Y Status: No LMP for male patient. unknown OB History No obstetric history on file. Covid Vaccine: Lab Results: Recent Labs Base Name 05/07/24 0925 [id number] Recent Labs Component Name 05/22/24 1454 [...] documented in this encounter Procedure Notes * Daren Quiroz APRN-MANAGER [employer] INCOME - 05/23/2024 12:41 PM CDTAssociated Order(s): ETT Placement Endotracheal Tube Placement: Patient Location: OR. Intubation Event Date/Time: 05/23/2024 12:32 PM Procedure: intubation (88228) Procedure Section: Sedation: under general anesthesia. Indications for Airway Management: anesthesia Procedure pretreatments used? No Induction: standard IV Patient Position: sniffing Mask Ventilation: easy with oral airway. Blade [...] auscultation and CO2 monitor Tube secured with: adhesive tape. Dentition unchanged? Yes Difficult Airway? No. Procedure Start Time: 05/23/2024 12:32 PM. Staff Section Anesthesia Provider: Daren Quiroz APRN-CRNA Provider #1: Madelin Sun DO, Performed the procedure. Provider #2: Rainer Jackson DO. Additional Comments: Atraumatic intubation with teeth, lip, and tongue unchanged from preop. documented in this encounter Miscellaneous Notes * Addendum Note - Catalina Marshall DO - 05/24/2024 7:48 AM CDT Addendum created 05/24/24 0748 by Catalina Marshall DO Clinical Note Signed * Anesthesia Transfer of Care - Daren Quiroz APRN-CRNA - 05/23/2024 3:44 PM CDT ANESTHESIA TRANSFER OF CARE NOTE Today's Date: 05/23/2024 Date of : 1960 Patient: Andrey Giron Procedure(s): RECONSTRUCTION LEFT NASAL/CHEEK DEFECT, WOUND DEBRIDEMENT, SKIN GRAFT FOREHEAD FLAP Surgeon(s): Primary: Ritesh Mensah MD Resident - Assisting: Irma Fung MD Preop Diagnosis: Pre-op Diagnois: * Basal cell carcinoma (BCC) of left side of nose [C44.311] Pre-op Meds (From admission, onward) Start Stop Status Route Frequency Ordered 05/22/24 1545 0.9% NaCl infusion -- Dispensed IV CONTINUOUS 05/22/24 15105/22/24 1800 acetaminophen (Tylenol) tablet 650 mg Note to Pharmacy: OP sig: Take 1 (one) tablet by mouth every 8 hours as needed -- Dispensed PO EVERY 6 HOURS 05/22/24165805/23/24 145 albuterol-ipratropium (Duo-Neb) nebulizer solution 3 mL -- Verified IN POST-OP MULTIPLE 05/23/24145305/22/24 224 calcium carbonate (Tums) chew tablet 2 tablet -- Verified PO EVERY 4 HOURS PRN 05/22/24224605/22/24 2300 dextrose 5 % and 0.45% NaCl infusion -- Dispensed IV CONTINUOUS 05/22/24224605/22/242246 diphenhydrAMINE (Benadryl) injection 25 mg -- Verified IV EVERY 6 HOURS PRN 05/22/24224605/23/24 145 diphenhydrAMINE (Benadryl) injection 25 mg -- Verified IV ONCE PRN 05/23/24 14505/23/24 1454 fentaNYL (PF) (Sublimaze) injection 25 mcg -- Verified IV EVERY 10 MIN PRN 05/23/24 14505/23/24 1454 fentaNYL (PF) (Sublimaze) injection 50 mcg -- Verified IV EVERY 10 MIN PRN 05/23/24145305/23/24 0900 finasteride (Proscar) tablet 5 mg Note to Pharmacy: OP sig: Take 1 (one) tablet by mouth once daily -- Dispensed PO DAILY 05/22/24165805/23/24 0619 heparin injection 1,000 Units -- Verified IK POST-DIALYSIS MULTIPLE 05/23/24 0620 05/23/24 1454 hydrALAZINE (Apresoline) injection 5 mg -- Verified IV POST-OP MULTIPLE 05/23/24 14505/23/24 1454 HYDROmorphone (Dilaudid) injection 0.5 mg -- Verified IV EVERY 10 MIN PRN 05/23/24 14505/23/24 1454 labetalol (Normodyne; Trandate) injection 5 mg -- Verified IV POST-OP MULTIPLE 05/23/24 14505/23/24 1500 lactated ringers infusion -- Dispensed IV CONTINUOUS 05/23/24145305/23/24 145 naloxone (Narcan) injection 0.04 mg -- Verified IV POST-OP MULTIPLE 05/23/24 14505/22/242246 ondansetron (disintegrating) (Zofran ODT) tablet 4 mg See Hyperspace for full Linked Orders Report. -- Verified PO EVERY 6 HOURS PRN 05/22/24224605/22/242246 ondansetron (Zofran) injection 4 mg See Hyperspace for full Linked Orders Report. -- Verified IV EVERY 6 HOURS PRN 05/22/24224605/23/241453 ondansetron (Zofran) injection 4 mg -- Verified IV ONCE PRN 05/23/24145305/22/24 165 oxyCODONE (immediate release) (Roxicodone) tablet 10 mg See Hyperspace for full Linked Orders Report. -- Dispensed PO EVERY 6 HOURS PRN 05/22/24165805/22/24 165 oxyCODONE (immediate release) (Roxicodone) tablet 5 mg See Hyperspace for full Linked Orders Report. -- Verified PO EVERY 4 HOURS PRN 05/22/24165805/22/24 2100 oxymetazoline (Afrin) 0.05 % nasal spray 1 spray 05/23/242058 Dispensed EACH NOSTRIL 2 TIMES DAILY 05/22/24191405/23/24899 polyethylene glycol 3350 (Miralax) packet 17 g Note to Pharmacy: OP sig: Take by mouth once daily Patient not taking: Reported on 05/22/2024 -- Verified PO DAILY 05/22/24165805/23/241453 prochlorperazine (Compazine) injection 10 mg -- Verified IV ONCE PRN 05/23/24145305/22/241914 saline nasal spray (Rabun; Baby [place]) 0.65 % nasal spray 1 spray -- Verified EACH NOSTRIL EVERY 30 MIN PRN 05/22/24191405/22/24 1800 sevelamer carbonate (Renvela) tablet 800 mg -- Dispensed PO 3 TIMES DAILY WITH MEALS 05/22/24165805/23/24899 tamsulosin (Flomax) capsule 0.4 mg Note to Pharmacy: OP sig: Take 1 (one) capsule by mouth once daily -- Verified PO DAILY 05/22/24 1659 05/23/24 1454 throat lozenge 1 lozenge -- Verified PO EVERY 1 HOUR PRN 05/23/24 1454 Post-op Diagnosis: * Basal cell carcinoma (BCC) of left side of nose [C44.311] . No Known Allergies Vitals: No data found. Lines, Drains, and Airways Type Details Placement Removal Nephrostomy Tube Outside Facility; 05/18/24; 1320; Back, Left 05/18/24 1320 by Aicha Major, RN Nephrostomy Tube Outside Facility; 05/18/24; 1321; Back, Right 05/18/24 1321 by Aicha Major, KOKI Peripheral IV Date: 05/22/24; Time: 1502; Orientation: Posterior, Left; Location: Hand; Gauge: 20 G005/22/24 1502 by Magdalena Marley RN ETT Date: 05/23/24; Time: 1232; Placed By: HERIBERTO Linares; Vent: easy with oral airway mask; Induction: Standard IV; Blade Type: Mati; Blade Size: 4; Laryngoscopy View: Grade 1 (full cords); Intubation Adjuncts: Stylet; Tube: Endotracheal Tube; Placement: Oral; Tube Type: Cuffed-inflated; Tube Size(mm): 8 MM; Depth of Insertion: 23 CM; Measured From: gum; Attempts: 1; Cuff Infated: Air; Verified By: Direct visualization, Chest Auscultation, CO2 Monitor 05/23/24 1232 by Daren Quiroz APRN-CRNA 05/23/24 1534 by Daren Quiroz APRN-CRNA Intraprocedure I/O Totals Intake LR (Lactated ringers) 500.00 mL Total Intake 500 mL Patient Transfer Location: PACU Transport Airway: spontaneous respirations and supplemental O2 Transport Monitoring: heart rate and continuous pulse [...] understanding of report from the receiving PACUteam. HERIBERTO Linares documented in this encounter Plan of Treatment Upcoming Encounters Date Type Department Care Team (Late st Contact Info) Description 10/16/2024 1:30 PM PATIENT FINANCIAL COORDINATOR Office Visit [facility] - ENT [address] [place] [phone] Ritesh Mensah MD [address] [place] [address] [place] [address] documented as of this encounter Procedures Procedure Name Priority Date/Time Associated Diagnosis Comments ENDOTRACHEAL TUBE NOTE Routine 05/23/2024 12:41 PM CDT documented in this encounter Results * ETT LINE PERFORMABLE (05/23/2024 12:41 PM CDT) Narrative Daren Quiroz APRN-CRNA - 05/23/2024 12:41 PM CDT Daren Quiroz APRN-CRNA ? 05/23/2024 12:41 PM Endotracheal Tube Placement: ? Patient Location: OR. Intubation Event Date/Time: ??05/23/2024 12:32 PM Procedure: intubation (38365) Procedure Section: ?? Sedation: under general anesthesia. [...] Rainer Jackson DO GENERAL ANESTHESI A ORDERABLES documented in this encounter Visit Diagnoses Not on filedocumented in this encounter Administered Medications Inactive Administered Medications - up to 3 most recent administrations Medication Order MAR Action Action Date Dose Rate Site calcium chloride 10 % injection Intravenous, PRN, Starting on Tue05/23/24 at 1250, Until Tue05/23/24 at 1544, Anesthesia Intra-op $ Given 05/23/2024 12:50 PM CDT 0.5 g ceFAZolin (Ancef) 2,000 mg in 50 mL IVPB Intravenous, PRN, Starting on Tue05/23/24 at 1248, Until Tue05/23/24 at 1544, Anesthesia Intra-op $ Given 05/23/2024 12:48 PM CDT 2 g dexmedeTOMIDine (Precedex) injection Intravenous, PRN, Starting on Tue05/23/24 at 1403, Until Tue05/23/24 at 1544, Anesthesia Intra-op $ Given 05/23/2024 3:03 PM CDT 12 mcg $ Given 05/23/2024 2:52 PM CDT 12 mcg $ Given 05/23/2024 2:03 PM CDT 12 mcg fentaNYL (PF) (Sublimaze) injection Intravenous, PRN, Starting on Tue05/23/24 at 1230, Until Tue05/23/24 at 1544, Anesthesia Intra-op $ Given 05/23/2024 3:07 PM CDT 100 mcg $ Given 05/23/2024 3:03 PM CDT 100 mcg $ Given 05/23/2024 1:08 PM CDT 100 mcg lactated ringers infusion Intravenous, CONTINUOUS PRN, Starting on Tue05/23/24 at 1224, Until Tue05/23/24 at 1544, Anesthesia Intra-op $ New Bag/Syringe 05/23/2024 12:24 PM CDT lidocaine HCl (PF) (Xylocaine MPF) 2 % injection Intravenous, PRN, Starting on Tue05/23/24 at 1230, Until Tue05/23/24 at 1544, Anesthesia Intra-op $ Given 05/23/2024 12:30 PM CDT 100 mg ondansetron (Zofran) injection Intravenous, PRN, Starting on Tue05/23/24 at 1503, Until Tue05/23/24 at 1544, Anesthesia Intra-op $ Given 05/23/2024 3:03 PM CDT 4 mg phenylephrine 100 mcg/mL injection Intravenous, PRN, Starting on Tue05/23/24 at 1236, Until Tue05/23/24 at 1544, Anesthesia Intra-op $ Given 05/23/2024 1:13 PM CDT 300 mcg $ Given 05/23/2024 1:10 PM CDT 200 mcg $ Given 05/23/2024 12:48 PM CDT 200 mcg phenylephrine 20 mg in 250 mL NaCl 0.9% infusion Intravenous, CONTINUOUS PRN, Starting on Tue05/23/24 at 1323, Until Tue05/23/24 at 1544, Anesthesia Intra-op Rate Change 05/23/2024 2:29 PM CDT 0.6 mcg/kg/min 42.615 mL/hr Rate Change 05/23/2024 2:06 PM CDT 0.4 mcg/kg/min 28.41 mL /hr Rate Change 05/23/2024 1:42 PM CDT 0.6 mcg/kg/min 42.615 m L/hr propofol (Diprivan) injection Intravenous, PRN, Starting on Tue05/23/24 at 1230, Until Tue05/23/24 at 1544, Anesthesia Intra-op $ Given 05/23/2024 1:08 PM CDT 50 mg $ Given 05/23/2024 12:30 PM CDT 150 mg rocuronium (Zemuron) injection Intravenous, PRN, Starting on Tue05/23/24 at 1230, Until Tue05/23/24 at 1544, Anesthesia Intra-op $ Given 05/23/2024 1:53 PM CDT 30 mg $ Given 05/23/2024 1:08 PM CDT 40 mg $ Given 05/23/2024 12:30 PM CDT 60 mg sugammadex (Bridion) injection Intravenous, PRN, Starting on Tue05/23/24 at 1508, Until Tue05/23/24 at 1544, Anesthesia Intra-op $ Given 05/23/2024 3:08 PM CDT 200 mg vasopressin (Vasostrict) 40 Units in dextrose 5 % 40 mL infusion Intravenous, CONTINUOUS PRN, Starting on Tue05/23/24 at 1316, Until Tue05/23/24 at 1544, Anesthesia Intra-op $ New Bag/Syringe 05/23/2024 1:16 PM CDT 1 Units documented in this encounter Care Teams Misdraw Hand Relationship Specialty Start Date End Date None, Physician [address] [place] [address] PCP - General 04/10/24 documented as of this encounter
--- OUTSIDE RECORDS SUMMARY | 2024-09-24 06:05 | XMS_ITS | Encounter Summary ---
Author Organization [facility] Care Team Providers Care Wax Machine Operator Name Role Phone Provider, Unknown Primary Care Provider Unavaila Rosas Baltazar MD Unavailable [phone] Encounter Details Date Type Department Care Team (Latest Contact Info) Description 01/10/2024 Travel Social History Tobacco Use Types Packs/Day Years Used Date Smoking Tobacco: Every Day Cigarettes 1 49 Smokeless Tobacco: Never Alcohol Use Standard Drinks/Week Comments Never 0 (1 standard drink = 0.6 oz pur e alcohol) Sexually Active Control Partners Comments Not Currently Sex and Gender Information Value Date Recorded Sex Assigned at Not on file Legal Sex Male 8:53 AM CDT Gender Identity Not on file Sexual Orientation Not on file documented as of this encounter Plan of Treatment Not on file documented as of this encounter Visit Diagnoses Not on filedocumented in this encounter Care Teams Wax Machine Operator Relationship Specialty Start Date End Date Provider, Unknown UNKNOWN PCP - General 06/17/23 Rosas Live MD #[address] [address] Consulting Physician Urology 06/17/23 documented as of this encounter
--- OUTSIDE RECORDS SUMMARY | 2024-09-24 06:05 | XMS_ITS | Encounter Summary ---
Author Organization [facility] Address [address] [facility] [place] [address] Care Team Providers Care Body And Fender Mechanic Name Role Phone None, Physician Primary Care Provider Unavailabl e Encounter Details Date Type Department Care Team (Latest Contact Info) Description 04/10/2024 Travel Social History Tobacco Use Types Packs/Day Years Used Date Smoking Tobacco: Never Assessed Sex and Gender Information Value Date Recorded Sex Assigned at Not on file Gender Identity Not on file Sexual Orientation Not on file documented as of this encounter Plan of Treatment Upcoming Encounters Date Type Department Care Team (Late st Contact Info) Description 10/16/2024 1:30 PM WHARF HAND Office Visit [facility] - ENT [address] [facility], [place] [phone] Ritesh Mensah MD [facility] DE[place] [address] documented as of this encounter Visit Diagnoses Not on filedocumented in this encounter Care Teams Body And Fender Mechanic Relationship Specialty Start Date End Date None, Physician [address] [place] [address] PCP - General 04/10/24 documented as of this encounter
--- OUTSIDE RECORDS SUMMARY | 2024-09-24 06:05 | XMS_ITS | Encounter Summary ---
Author Organization [facility] Address [address] [facility] [place] [address] Care Team Providers Care Hard Metals Engraver Hand Name Role Phone None, Physician Primary Care Provider Unavailabl e Reason for Visit * Reason Onset Date Comments Surgery Scheduling 05/08/2024 Encounter Details Date Type Department Care Team (Late Contact Info) Description 05/08/2024 Telephone [facility] - Pulmonology [address] [place] [phone] Ben Mccormack MD [address] [place] [address] DIV OF PULMONARY/[place] [address] Surgery Scheduling Social History Tobacco Use Types Packs/Day Years Used Date Smoking Tobacco: Never Assessed Sex and Gender Information Value Date Recorded Sex Assigned at Not on file Gender Identity Not on file Sexual Orientation Not on file documented as of this encounter Miscellaneous Notes * Telephone Encounter - Ben Mccormack MD - 05/08/2024 10:12 AM CDT Called patient multiple times to schedule biopsy over last few days. Left voice mail. documented in this encounter Plan of Treatment Upcoming Encounters Date Type Department Care Team ([facility] Contact Info) Description 10/16/2024 1:30 PM STONEMASON Office Visit [facility] - ENT [address] [place] [phone] Ritesh Mensah MD [address] [place] [address] [address] [place] [address] documented as of this encounter Visit Diagnoses Not on filedocumented in this encounter Care Teams Hard Metals Engraver Hand Relationship Specialty Start Date End Date None, Physician [address] [place] [address] PCP - General 04/10/24 documented as of this encounter
--- OUTSIDE RECORDS SUMMARY | 2024-09-24 06:05 | XMS_ITS | Encounter Summary ---
Author Organization [facility] Address [address] [facility] [place] [address] Care Team Providers Care Biochemistry Professor Name Role Phone Unavailable Primary Care Provider Unavailabl e Reason for Visit * Reason Onset Date Comments Reschedule Appointment 04/02/2024 Encounter Details Date Type Department Care Team (Late Contact Info) Description 04/02/2024 Telephone [facility] - Dermatology [address] [place] [address] Marlena Ballard MD [address] [facility] [address] [place] [address] Reschedule Appointment Social History Tobacco Use Types Packs/Day Years Used Date Smoking Tobacco: Never Assessed Sex and Gender Information Value Date Recorded Sex Assigned at Not on file Gender Identity Not on file Sexual Orientation Not on file documented as of this encounter Miscellaneous Notes * Telephone Encounter - Karthik Snider - 04/02/2024 10:49 AM CDT I spoke to Rocio, who schedules the appointment to follow up on no show for 03/27/2024 appointment. Rocio was on vacation last week and found out transportation took patient to the wrong address. Rocio will call back to reschedule consultation appointment after their system's functions are restored. documented in this encounter Plan of Treatment Upcoming Encounters Date Type Department Care Team (Late Contact Info) Description 10/16/2024 1:30 PM GAS PLANT OPERATOR Office Visit [facility] - ENT [address] [place] [address], [place] [phone] Ritesh Mensah MD [address] [place] [address] [place] [address] documented as of this encounter Visit Diagnoses Not on filedocumented in this encounter
--- OUTSIDE RECORDS SUMMARY | 2024-09-24 06:05 | XMS_ITS | Encounter Summary ---
Author Organization [facility] Address [facility] [address] Care Team Providers Care Fifth Hand Name Role Phone None, Physician Primary Care Provider Unavailabl e Reason for Visit * Reason Comments Establish Care Nose Problem BCC left nasal sidew all Encounter Details Date Type Department Care Team (Late st Contact Info) Description 05/04/2024 3:45 PM CDT Office Visit [facility] - ENT [address] [place] [phone] Matteo Menezes MD [address] [place] [phone] Basal cell carcinoma (BCC) of lateral side wall of nose (Primary Dx) Social History Tobacco Use Types Packs/Day Years Used Date Smoking Tobacco: Never Assessed Sex and Gender Information Value Date Recorded Sex Assigned at Not on file Gender Identity Not on file Sexual Orientation Not on file documented as of this encounter Last Filed Vital Signs Vital Sign Reading Time Taken Comments Blood Pressure 100/68 05/04/2024 3:29 PM CDT Pulse 110 05/04/2024 3:29 PM CDT Temperature - - Respiratory Rate - - Oxygen Saturation - - Inhaled Oxygen Concentration - - Weight 94.8 kg (209 lb) 05/04/2024 3:29 PM CDT Height 172.7 cm (5' 8 ) 05/04/2024 3:29 PM CDT Body Mass Index 31.78 05/04/2024 3:29 PM CDT documented in this encounter Progress Notes * Matteo Menezes MD - 05/04/2024 4:17 PM CDT Coding Rationale New or est? New Patient Highest problem complexity: 1 acute or chronic illness or injury that poses a threat to life or bodily function Data review: Review of prior external note(s): 1 unique source(s) Review of result(s): 1 unique source(s) Highest level of risk: High Suggested code: 19857 * Matteo Menezes MD - 05/04/2024 4:08 PM CDT CC: Chief Complaint Patient presents with Establish Care Nose Problem BCC left nasal sidewall Referred by Dr. Ballard HPI: Andrey Giron is a 63 year old male presenting with biopsy-proven recurrence of basal cell carcinoma. Approximate 5 to 6 years ago he had resection of what he reports as 3 lesions from his left cheek with skin grafting and he has a large skin graft carving the majority the malar surface. Then several months ago he developed a scab that bleeds and has not healed and gradually grown over time toinvolve the majority of his left nasal sidewall. He was recently seen by Mohs surgery who referred him here due to the depth. He had a CT neck to further evaluate shows extension down to the nasal bone without laurie erosion of the bone. There is no cervical adenopathy but he also has a separate concerning lung apex mass and is having this further worked up with a PET/CT by the pulmonology department. He feels well today although tired which he attributes to his dialysis earlier in the day for end-stage renal disease. He continues to smoke. He was at the nursing facility and is here with a transporter. No past medical history on file. No past surgical history on file. Medications: Current Outpatient Medications Medication Sig acetaminophen (Tylenol) 500 MG tablet Take 1 [...] 1 (one) capsule by mouth once daily No current facility-administered medications for this visit. Allergies: No Known Allergies Family History: Negative for easy bruising/bleeding, problems with anesthesia, or head/neck cancer. Past Social History: Mr. Giron is accompanied by facilite staff today. Tobacco: Smokin pack-years, currently 1 PPD. No other tobacco products Exam: Vitals: 05/04/24 1529 BP: 100/68 Pulse: (!) 110 Weight: 94.8 kg (209 lb) Height: 1.727 m (5' 8 ) General: Awake and alert in no apparent distress breathing comfortably Face: Large skin graft occupying the majority the malar region. There is an ulcerative irregular well-demarcated lesion centered in the left nasal sidewall extending slightly under the skin graft in the medial cheek and fixed to the underlying nasal bone but sparing the ala and approaching but not involving the eyelid and medial canthus. Ears: Right Pinna normal, EAC normal Left Pinna normal, EAC normal Nose: External nose without lesions. Patent bilaterally, mucosa intact, septum without significant deviation Oral Cavity/Oropharynx: Lips without lesions. Tongue is mobile, palate elevates symmetrically. The buccal mucosa, palate, gingiva were examined and no lesions seen and no masses palpable Neck: No palpable lymphadenopathy bilaterally. Thyroid is low in the neck without palpable abnormalities. The salivary glands are without palpable masses. Voice: Strong, no stridor present Neurologic: Cranial nerves III-XII grossly intact Imaging: CT neck reviewed, see HPI Outside Records Reviewed: Office notes and patient care discussed with Dr. Ballard Pathology: BCC nodular infiltrative type Assessment/Plan: 1. Recurrent left facial basal cell carcinoma now involving the majority of the left nose and extending down to the nasal bone as well as approaching the left eyelid. We discussed management options especially in light of his lung mass which is highly suspicious for a second primary lung malignancygiven its appearance and smoking history. Nonetheless given the basal cell approaching the orbit I recommend surgical excision for this is soon as possible which would involve resection of the nasal bone as well. He was seen by Dr. Aniket Raines as well to discuss reconstructive options for this. He is interested proceeding with surgery and we will arrange for soon as possible. Matteo Menezes MD 4:08 PM 05/04/24 documented in this encounter Plan of Treatment Upcoming Encounters Date Type Department Care Team (Late st Contact Info) Description 10/16/2024 1:30 PM EXPEDITIONARY FORCE COMBAT SKILLS Office Visit [facility] - ENT [address] [place] [phone] Ritesh Mensah MD [address] [place] [address] [place] [address] documented as of this encounter Visit Diagnoses Diagnosis Basal cell carcinoma (BCC) of lateral side wall of nose- Primary documented in this encounter Care Teams Fifth Hand Relationship Specialty Start Date End Date None, Physician [address] [place] [address] PCP - General 04/10/24 documented as of this encounter
--- OUTSIDE RECORDS SUMMARY | 2024-09-24 06:05 | XMS_ITS | Encounter Summary ---
Author Organization [facility] Address [address] [facility] [place] [address] Care Team Providers Care Senior Executive Assistant Name Role Phone None, Physician Primary Care Provider Unavailabl e Encounter Details Date Type Department Care Team (Latest Contact Info) Description 05/11/2024 Travel Social History Tobacco Use Types Packs/Day Years Used Date Smoking Tobacco: Every Day Cigarettes Smokeless Tobacco: Never Alcohol Use Standard Drinks/Week Comments Not Currently 0 (1 standard drink = 0.6 oz pur e alcohol) Sex and Gender Information Value Date Recorded Sex Assigned at Not on file Gender Identity Not on file Sexual Orientation Not on file documented as of this encounter Plan of Treatment Upcoming Encounters Date Type Department Care Team (Late st Contact Info) Description 10/16/2024 1:30 PM WORKING SECOND HAND Office Visit [facility] - ENT [facility] [place] [phone] Ritesh Mensah MD [address] [place] [address] [place] [address] documented as of this encounter Visit Diagnoses Not on filedocumented in this encounter Care Teams Senior Executive Assistant Relationship Specialty Start Date End Date None, Physician [address] [facility] [place] [address] PCP - General 04/10/24 documented as of this encounter
--- OUTSIDE RECORDS SUMMARY | 2024-09-24 06:05 | XMS_ITS | Encounter Summary ---
Author Organization [facility] Address [address] [place] [address] Care Team Providers Care Tool Marker Name Role Phone None, Physician Primary Care Provider Unavailabl e Reason for Visit * Auth/Cert (Routine) Specialty Diagnoses / Procedures Referred By Grace hathaway Referred To Contact Diagnoses Basal cell carcinoma (BCC) of lateral side wall of nose Basal cell carcinoma (BCC) of lateral side wall of nose Procedures IN RECONSTR NOSE RHINOPLASTY Referral ID Status Reason Start Date Expiration Date Visits Re quested Visits Authorized [id number] 1 1 Encounter Details Date Type Department Care Team (Late st Contact Info) Description 05/22/2024 2:30 PM CDT - 05/22/2024 4:32 PM CDT Surgery [facility] [address] [place] [address] Matteo Menezes MD [address] [place] [address] Left partial rhinectomy Surgery Details Date/Time Status Location OR Service Patient Class Case Class Case Type Trauma Case? 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 Not hard at all 05/23/2024 [facility] - Occupational Stress [...] place to sleep or slept in a senior care (including now)? No 05/23/2024 Sex and Gender Information Value Date Recorded Sex Assigned at Not on file Gender Identity Not on file Sexual Orientation Not on file documented as of this encounter Last Filed Vital Signs Vital Sign Reading Time Taken Comments Blood Pressure 115/76 05/22/2024 3:15 PM CDT Pulse 105 05/22/2024 3:15 PM CDT Temperature 36.5 ??C (97.7 ??F) 05/22/2024 3:00 PM CD T Respiratory Rate 16 05/22/2024 3:15 PM CDT Oxygen Saturation 96% 05/22/2024 3:15 PM CDT Inhaled Oxygen Concentration - - Weight 94.7 kg (208 lb 12.8 oz) 05/22/2024 3:00 PM CDT Height 172.7 cm (5' 8 ) 05/22/2024 3:00 PM CDT Body Mass Index 31.75 05/22/2024 3:00 PM CDT documented in this encounter Functional [...] No 05/23/2024 documented as of this encounter Discharge Summaries * Jaswinder Romero MD - 05/24/2024 7:37 AM CDT Physician Discharge Summary Attending Physician: Matteo Menezes MD Office 05/24/2024 7:17 AM Andrey Giron 63 year old [id number] Admit Date: 05/22/2024 Discharge Date: 05/24/2024 Admitting diagnosis: Left nasal sidewall basal cell carcinoma Discharge diagnosis: Left nasal sidewall basal cell carcinoma Admission condition: Stable Discharge condition: Stable Indication for admission: Left partial rhinectomy and nasal reconstruction with paramedian foreheadflap Hospital Course: Andrey Giron is a 63 year old year old male with history of nasal sidewall basal cell carcinomawho underwent left partial rhinectomy and left nasal reconstruction (paramedian forehead flap and left neck split thickness skin graft) on 05/22 and 05/[address] Menezes and Dr. Mensah. he tolerated this procedure well and there were no apparent complications. he was kept overnight for observation. Therewere no acute events overnight or airway concerns. The next morning, the patient awoke in good spirits and had taken sufficient PO for discharge. Decision was made to discharge the patient and the family was in agreement. he was discharged in stable condition with appropriate pain control and follow up plan. Discharge exam: BP 121/78 Pulse 66 Temp 98.2 ??F (36.8 ??C) Resp 16 Ht 1.727 m (5' 8 ) Wt 94.7 kg (208 lb12.8 oz) SpO2 95% General - awake, alert, lying in bed, not in distress Resp - comfortable on room air CV - extremities WWP Oral cavity - no evidence of bleeding from the oral cavity. Face: forehead incision intact with stitches in place, left forehead with mild fluctuant swelling, flap pedicle wrapped in surgicele with some dried blood around it. Distal flap dusky with very slow capillary refill. xeroform bolster in place at medial cheek. Neck: Incisions CDI, appropriate postoperative swelling, minimal ttp. Mild ecchymosis inferiorly. Extremities: Moves all extremities spontaneously Significant Diagnostic Studies: None Disposition: To previous facility Home Health Care Nursing Visits? NOT APPLICABLE Home Physical Therapy? NOT APPLICABLE Home Medications/Prescriptions Provided: Medication List START taking these medications oxyCODONE (immediate release) 5 MG tablet Commonly known as: Roxicodone Take 1 (one) tablet by mouth every 4 hours as needed CONTINUE taking these medications acetaminophen 500 MG tablet Commonly known as: Tylenol diphenhydrAMINE 25 mg/50 mL infusion Commonly known as: Benadryl finasteride 5 MG tablet Commonly known as: Proscar sevelamer 800 MG tablet Commonly known as: Renagel tamsulosin 0.4 MG capsule Commonly known as: Flomax ASK your doctor about these medications alum and mag hydroxide-simeth 400-400-40 MG/5ML suspension Commonly known as: Maalox Max polyethylene glycol 3350 17 g packet Commonly known as: Miralax Where to Get Your Medications These medications were sent to [facility] - [address] [id number] [address] [facility] [address] oxyCODONE (immediate release) 5 MG tablet No discharge procedures on file. Other Instructions Please call if you have any of these symptoms: Fever more than 102?? Persistent pain, nausea, or vomiting Persistent bleeding Shortness of breath Significant redness or drainage from your incision Any other questions or concerns During business hours call: After 5 pm or on weekends call: and ask for the ENT resident instructional leader. Jaswinder Romero MD Otolaryngology - Head & Neck Surgery 05/24/2024 7:37 AM documented in this encounter Medications at Time [...] (one) tablet by mouth once daily 06/13/2023 polyethylene glycol 3350 (Miralax) 17 g packet Take by mouth once daily sevelamer (Renagel) 800 MG tablet Take 2 (two) tablets by mouth 3 times daily with meals 03/12/2024 tamsulosin (Flomax) 0.4 MG capsule Take 1 (one) capsule by mouth once daily 05/30/2023 acetaminophen (Tylenol) 500 MG tablet Take 1 (one) tablet by mouth every 8 hours as needed 07/21/2024 oxyCODONE, immediate release, (Roxicodone) 5 MG tabletIndications:Basa l cell carcinoma (BCC) of left nasal sidewall Take 1 (one) tablet by mouth every 4 hours as needed 12 tablet 05/24/2024 07/21/2024 documented as of this encounter Progress Notes * Ramy William RN - 05/24/2024 9:13 AM CDT Problem: Tobacco Use Goal: Inpatient [...] are decreased or avoided Outcome: Progressing * Ramy Wliliam RN - 05/24/2024 9:13 AM CDT Pt a+ox4, oob with SBA. Discharge education complete with pt, and all questions answered. PIV removed per policy. Images of incisions uploaded to media. Pt d/c home with family friend, transport via personal vehicle. Problem: Tobacco Use Goal: Inpatient tobacco-use cessation counseling participation 05/24/2024930 by Ramy William RN Outcome: Adequate for Discharge 05/24/2024930 by Ramy William RN Outcome: Progressing Problem: Pain/Discomfort Goal: Patient exhibits reduced pain/discomfort as evidenced by pain scores 05/24/2024930 by Ramy William RN Outcome: Adequate for Discharge 05/24/2024930 by Ramy William RN Outcome: Progressing Goal: Patient uses pharmacological and non-pharmacological pain management strategies. 05/24/2024930 by Ramy William RN Outcome: Adequate for Discharge 05/24/2024930 by Ramy William RN Outcome: Progressing Goal: Patient verbalizes acceptable level of pain relief and ability to engage in desired activity. 05/24/2024930 by Ramy William RN Outcome: Adequate for Discharge 05/24/2024930 by Ramy William RN Outcome: Progressing Problem: Fall Risk Goal: Fall risk and fall related injury risk are minimized (interventions related to the fall risk can be found in the flowsheet documentation) 05/24/2024930 by Ramy William RN Outcome: Adequate for Discharge 05/24/2024930 by Ramy William RN Outcome: Progressing Problem: Hemodynamic Status/Cardiac Output Goal: Patient has stable vital signs and fluid balance 05/24/2024930 by Ramy William RN Outcome: Adequate for Discharge 05/24/2024930 by Ramy William RN Outcome: Progressing Problem: Fluid and Electrolyte Imbalance Goal: Fluid and electrolyte balance are achieved/maintained 05/24/2024930 by Ramy William RN Outcome: Adequate for Discharge 05/24/2024930 by Ramy William RN Outcome: Progressing Problem: Infection Goal: Signs and symptoms of infections are decreased or avoided 05/24/2024930 by Ramy William RN Outcome: Adequate for Discharge 05/24/2024930 by Ramy William RN Outcome: Progressing * Melida Pickering RN - 05/23/2024 9:04 PM CDT Pt did well overnight, rested. VSS on RA. Pain controlled with scheduled tylenol. Bilateral neph tubes with minimal output. Facial sutures and xeroform, CDI, assisted with cleaning up old drainage. Problem: Pain/Discomfort Goal: Patient exhibits reduced pain/discomfort [...] are decreased or avoided Outcome: Progressing * Ramy William RN - 05/23/2024 6:20 PM CDT Pt transferred to unit at 1754, A+Ox4, surgical site bleeding, and pt intermittently dabbing with clean tissue. Resting in bed comfortably, and without complaints of pain. Pt with 2L N/C after receiving pain meds in PACU. Awaiting dinner. Problem: Tobacco Use Goal: Inpatient tobacco-use cessation [...] are decreased or avoided Outcome: Progressing * Ramy William RN - 05/23/2024 11:33 AM CDT Report by OUMOU RN- 2L removed over 3.5h.. Pt to transfer from [facility] to Pre-procedural area. KOKI Lerma given report at 1130. * Irma Fung MD - 05/23/2024 11:21 AM CDT Otolaryngology Progress Note 05/23/2024 SUBJECTIVE: POD1 left partial rhynectomy due to basal cell carcinoma OR today with Dr. Mensah for paramedian forehead flap Afebrile, VSS, NAEON Pt denies any complaints, pain well controlled VITALS: Temp (30hrs) Max:99 ??F (37.2 ??C) Vitals: 05/23/24 1018 05/23/24 1033 05/23/24 1048 05/23/24 1103 BP: 116/66 134/74 110/69 101/61 Pulse: 79 109 87 80 Resp: 18 18 18 18 Temp: SpO2: Weight: Height: Current Facility-Administered Medications Medication Dose Route Frequency 0.9% NaCl infusion Intravenous Continuous acetaminophen (Tylenol) tablet 650 mg 650 mg Oral q6h calcium carbonate (Tums) chew tablet 2 tablet 2 tablet Oral q4h PRN dextrose 5 % and 0.45% NaCl infusion Intravenous Continuous diphenhydrAMINE (Benadryl) injection 25 mg 25 mg Intravenous q6h PRN finasteride (Proscar) tablet 5 mg 5 mg Oral QDAY heparin injection 1,000 Units 1,000 Units Intracatheter post-Dialysis once ondansetron (disintegrating) (Zofran ODT) tablet 4 mg 4 mg Oral q6h PRN Or ondansetron (Zofran) injection 4 mg 4 mg Intravenous q6h PRN oxyCODONE (immediate release) (Roxicodone) tablet 5 mg 5 mg Oral q4h PRN Or oxyCODONE (immediate release) (Roxicodone) tablet 10 mg 10 mg Oral q6h PRN oxymetazoline (Afrin) 0.05 % nasal spray 1 spray 1 spray Each Nostril BID polyethylene glycol 3350 (Miralax) packet 17 g 17 g Oral QDAY saline nasal spray ([place]; Baby [place]) 0.65 % nasal spray 1 spray 1 spray Each Nostril q30 min PRN sevelamer carbonate (Renvela) tablet 800 mg 800 mg Oral TID WC tamsulosin (Flomax) capsule 0.4 mg 0.4 mg Oral QDAY PHYSICAL EXAM: General: NAD. Conversant and appropriate Neuro: Moving all 4. Alert and oriented. HEENT: EOMI. Xeroform bolster sutured in place on left nasal sidewall. No surrounding erythema, no bleeding or oozing. Dried blood present. Medial canthus intact. Well healed skin graft on left cheekfrom previous surgery. No other surgical scars on face. CV: RR. Respiratory: Non-labored respiratory effort. Extremities: WWP ASSESSMENT: 63 year old male who is POD1 left partial rhynectomy due to basal cell carcinoma. He will be undergoing left nasal reconstruction with Dr. Mensah today. Plan for paramedian forehead flap, possible auricular cartilage graft, possible nasoseptal flap, possible skin graft. Discussed risks and benefits of the surgery with the patient. He expressed understanding and wishes to proceed. PLAN: - OR today for left nasal reconstruction with paramedian forehead flap, possible adjacent tissue transfer, possible auricular cartilage graft, possible nasoseptal flap, possbile skin graft - Written consent obtained - Marked - NPO since midnight - Received dialysis this morning - Proceed to OR as scheduled Irma Fung MD Plastic & Reconstructive Surgery Resident 05/23/2024 11:46 AM * Dina Brown RN - 05/23/2024 11:20 AM CDT Hemodialysis Complete Time: 3.5 hours Access: Tunneled HD CVC - RIJ UF: 2,000 ml Blood Processed: 73.8 L Medications: CVC lumens locked with heparin dwell Tolerated: Well, VSS, no c/o with txmt Problem: Hemodynamic Status/Cardiac Output Goal: Patient has stable vital signs and fluid balance Outcome: Progressing Problem: Fluid and Electrolyte Imbalance Goal: Fluid and electrolyte balance are achieved/maintained Outcome: Progressing Problem: Infection Goal: Signs and symptoms of infections are decreased or avoided Outcome: Progressing * Alexa Anderson - 05/23/2024 10:03 AM CDT I am aware of this patient's admission, I will be following this dialysis patient for any needs while an inpatient, and keeping their clinic informed of their progress while admitted. Records were forwarded to the clinic for their review. Spoke with Sloane at [facility] and she was able to confirm patient's OP HD schedule Outpatient Clinic [facility] Days: MWF Time: 10:00am Doctor: Dr Verma Phone: 05/23/2024 1:47 PM Attempted to meet with patient in patient's room but patient was off the floor at this time Alexa Anderson Kidney Navigator/ [facility] Ascom: [phone] Office: [phone] * Dina Brown RN - 05/23/2024 6:20 AM CDT REPORT BEFORE DIALYSIS Diagnosis (BRYAN/CRF): ESRD MWF Non-Renal Diagnosis: Scheduled Surgery Isolation: No active isolations Does patient have signs or symptoms of respiratory infection (fever, cough, shortness of breath): No Allergies: No Known Allergies Code Status: Full Orientation Status: A&Ox 4 On telemetry/rhythm: No Oxygen: RA Given any medications: No Need for pain medications: No Blood pressure issues: D5/45@75 On any drips: No Is patient diabetic: No Any labs to draw: Yes Any other procedures today: Surgery @ Noon Any concerns about this patient: Bi-Lateral Nephrectomy Tubes Any medications to be given with dialysis: Heparin - Benadryl Due date of next [employer] Line Dressing change: 05/30/24 Primary RN educated on Incapacitated Nurse: Yes Access: Tunneled HD CVC - RIJ * Nuha Acuna RN - 05/23/2024 3:10 AM CDT Problem: Pain/Discomfort Goal: Patient exhibits [...] found in the flowsheet documentation) Outcome: Progressing documented in this encounter H&P Notes * Jaswinder Romero MD - 05/21/2024 9:03 PM CDT Images from the original note were not included. OTOLARYNGOLOGY - HEAD & NECK SURGERY - - - H&P PATIENT INFORMATION Andrey Giron 63 year old male Today's Date: 05/22/2024 SUBJECTIVE HPI: Andrey Giron is a 63 year old male with a PMH significant for nasal sidewall basal cell carcinoma here for planned procedure with Dr. Menezes No new changes in patient's health or history of presenting illness since last seen. Allergies: No Known Allergies Review of Systems: Constitutional: Negative for changes in acitivity level, appetite changes, weight changes, sleep changes HEENT: Negative for rhinorrhea, vision changes, throat ache Respiratory: negative dyspnea, wheezing Cardiovascular: Negative for decreased exercise tolerance Gastrointestinal: Negative for diarrhea, constipation, abdominal pain Musculoskeletal: negative for new joint pain Neurological: negative for seizures HISTORY PAST MEDICAL HISTORY Past Medical History: Diagnosis Date ??? Basal cell carcinoma ??? ESRD on dialysis (HCC) M/W/F ??? History of blood transfusion PAST SURGICAL HISTORY Past Surgical History: Procedure Laterality Date ??? INSERTION DIALYSIS CATHETER Right tunneled IJ ??? VASCULAR PROCEDURE/SURGERY 04/12/2024 CREATION ARTERIOVENOUS FISTULA SOCIAL HISTORY: Social History Tobacco Use ??? Smoking status: Every Day Packs/day: .5 Types: Cigarettes ??? Smokeless tobacco: Never Vaping Use ??? Vaping Use: Never used Substance Use Topics ??? Alcohol use: Not Currently ??? Drug use: Never FAMILY HISTORY No family history of wound healing abnormalities. MEDICATIONS No current facility-administered medications on file prior to encounter. Current Outpatient Medications on File Prior to Encounter Medication Sig Dispense Refill ??? acetaminophen (Tylenol) 500 MG tablet Take 1 (one) tablet by mouth every 8 hours as needed ??? diphenhydrAMINE (Benadryl) 25 mg/50 mL infusion Take 25 (twenty five) mg by mouth every 6 hoursas needed ??? finasteride (Proscar) 5 MG tablet Take 1 (one) tablet by mouth once daily ??? sevelamer (Renagel) 800 MG tablet Take 2 (two) tablets by mouth 3 times daily with meals ??? tamsulosin (Flomax) 0.4 MG capsule Take 1 (one) capsule by mouth once daily PEx Vitals: Temp 97.7 ??F (36.5 ??C) (Oral) Ht 1.727 m (5' 8 ) Wt 94.7 kg (208 lb 12.8 oz) BMI 31.75 kg/m?? PHYSICAL EXAM General: NAD. Conversant and appropriate Neuro: Moving all 4. Alert and oriented. HEENT: NC/AT. EOMI. CV: RR. Respiratory: Non-labored respiratory effort. Extremities: WWP OBJECTIVE Recent Labs: No new relevant lab results. Recent Imaging/Studies: No new relevant imaging or vascular studies. Recent Micro/Pathology: No new relevant cultures or biopsies. ASSESSMENT & PLAN Andrey Giron is a 63 year old male with nasal sidewall basal cell carcinoma. To OR today for left partial rhinectomy with Dr. Menezes All risks/benefits/alternatives explained to family and all questions answered. Family/patient endorses understanding and wishes to proceed. Continue NPO Page ENT with questions/concerns. Jaswinder Romero MD Otolaryngology Head and Neck Surgery 05/22/2024 3:03 PM Associated attestation - Matteo Menezes MD - 05/22/2024 4:03 PM CDT I saw and examined the patient on the date of surgery with the resident and I agree with the documentation, with the following additions/addenda: Interval history: no changes Physical exam: left nasal mass Plan: Left partial rhinectomy documented in this encounter Procedure Notes * Binta Mejia MD - 05/23/2024 3:44 PM CDT Nephrology Attending Physician Patient seen by me and examined on hemodialysis on 05/23/2024 at 8:40am. Indication: ESRD BFR: 350ml UF: 2L Access: RIJ TDC BP: 106/69 Prescription of dialysis adjusted as indicated. Case discussed with house-staff. Binta Mejia MD documented in this encounter Consult Notes * Jacinto Obrien MD - 05/22/2024 7:52 PM CDTAssociated Order(s): IP CONSULT TO NEPHROLOGY [facility] Department of Nephrology History & Physical Date of Admission: 05/22/2024 Length of Stay: 0 Date of Service: 05/22/2024 Consulting Service: Kobi Team Reason for Consult: ESRD w/ HD HISTORY: Andrey Giron is a 63 year old male w/ PMH significant for ESRD w/ HD MWF via R-IJ Permcath, andBasal cell carcinoma left nose presented in [facility] on 05/22 for surgical intervention. He is s/p Left nasal rhinectomy 05/22. Patient will undergo 2nd phase of surgery tomorrow on 05/23. The patient has been on HD for the last 4 months. He had a patent RUE fistula (Duplex 05/10/2024). As per patient, the fistula is not yet mature for function. Nephrology was consulted for maintenance HD. Cause of ESRD: Unknown Urine: No Access: R-IJ Permcath Dialysis Center: [facility] Dialysis Days: MWF Dialysis Duration: 3 Hours 30 Minutes Last Dialysis: 05/21/2024 [employer]: Dr. Luci Bey MD Review of Systems: ROS Past Medical History: Diagnosis Date Basal cell carcinoma ESRD on dialysis (HCC) M/W/F History of blood transfusion Past Surgical History: Procedure Laterality Date INSERTION DIALYSIS CATHETER Right tunneled IJ VASCULAR PROCEDURE/SURGERY 04/12/2024 CREATION ARTERIOVENOUS FISTULA No family history on file. Social History: Social History Socioeconomic History Marital status: Spouse name: Not on file Number of children: Not on file Years of education: Not on file Highest education level: Not on file Occupational History Not on file Tobacco Use Smoking status: Every Day Packs/day: .5 Types: Cigarettes Smokeless tobacco: Never Vaping Use Vaping Use: Never used Substance and Sexual Activity Alcohol use: Not Currently Drug use: Never Sexual activity: Not on file Other Topics Concern Not on file Social History Narrative Not on file Social Determinants of Health Financial Resource Strain: Not on file Food Insecurity: Not on file Transportation Needs: Not on file Stress: Not on file Housing Stability: Not on file Allergies: No Known Allergies Home Medications: No [...] by mouth once daily Hospital Medications: acetaminophen 650 mg Oral q6h albuterol-ipratropium 3 mL Inhalation post-OP multiple [START ON 05/23/2024] finasteride 5 mg Oral QDAY hydrALAZINE 5 mg Intravenous post-OP multiple labetalol 5 mg Intravenous post-OP multiple naloxone 0.04 mg Intravenous post-OP multiple oxymetazoline 1 spray Each Nostril BID [START ON 05/23/2024] polyethylene glycol 3350 17 g Oral QDAY sevelamer carbonate 800 mg Oral TID WC [START ON 05/23/2024] tamsulosin 0.4 mg Oral QDAY 0.9% NaCl IV, , Last Rate: 50 mL/hr at 05/22/24 1517 lactated ringers, PRN Meds: 0.9% NaCl droPERidol fentaNYL (PF) fentaNYL (PF) HYDROmorphone metoclopramide oxyCODONE (immediate release) OR oxyCODONE (immediate release) prochlorperazine saline nasal spray OBJECTIVE: Vitals: 05/22/24191905/22/24192405/22/24192905/22/241934 BP: 132/75 141/80 137/78 137/79 Pulse: 79 76 79 73 Resp: 13 13 14 12 Temp: SpO2: 91% 91% 90% 92% Weight: Height: Estimated body mass index is 31.75 kg/m?? as calculated from the following: Height as of this encounter: 1.727 m (5' 8 ). Weight as of this encounter: 94.7 kg (208 lb 12.8 oz). Intake/Output Summary (Last 24 hours) at 05/22/20241951 Last data filed at 05/22/2024 1916 Gross per 24 hour Intake 940 ml Output 25 ml Net 915 ml Physical Exam: General: Discomfort due to nasal pain and oozing blood per nose. HEENT: Head NC/AT, EOMI, no scleral icterus, no NC in nares, moist oral mucosa without erythema or exudates, hearing at baseline Respiratory: Lungs CTA bilaterally, breathing non-labored, symmetrical chest wall expansion Cardiovascular: RRR; no murmurs, rubs, or gallops; Normal S1 and S2; No JVD Gastrointestinal: Soft, non-tender, non-distended abdomen; bowel sounds present in all quadrants Extremities: No edema Musculoskeletal: No gross deformities; no weakness; able to move limbs w/o difficulty Skin: Normal tone, no new rashes or non-procedural lesions Neurologic: AxO x4, no focal neurologic deficits Psychiatric: Calm, cooperative, appropriate mood and affect, normal judgement Dialysis access: R-IJ Permcath: LABS: CBC: Recent Labs Component Name 05/22/24 1454 WBC 8.1 HGB 11.5* HCT 33.6* MCV 95.2 BMP: Recent Labs Component Name 05/22/24 1454 NA 136 CL 104 CO2 21* BUN 49* CREATININE 9.55* Recent Labs Component Name 05/22/24 1454 CALCIUM 9.4 LFT: No results for input(s): PROT , ALB , ALKPHOS , AST , ALT , TBILI , DBILI , IBILI in the last 43982 hours. No results for input(s): KIMI , LIPASE in the last 35480 hours. No results for input(s): TSH in the last 21334 hours. Coagulation: No results for input(s): PT , INR , APTT in the last 38791 hours. Cardiac markers: No results for input(s): CKTOTAL , CKMB , TROPONINI in the last 41660 hours. ABG:No results for input(s): PHART , BWR7GTZ , PO2ART , YDO6EGQ , BASEEXCESS in the last 09321 hours. Invalid input(s): SO2ABG , FOHBABG IMAGING: XR Chest 1Vw Portable Result Date: 05/19/2024 IMPRESSION: 1.No pneumothorax or pleural effusion. 2.Spiculated nodule at the left lung apex is notwell-characterized on this exam. Report dictated by Albino Malik DO, (residential child care counselor). IAugie MD have personally reviewed and interpreted this examination/study. > Interpreting Provider: Augie Slater MD on 05/19/2024 12:[address] Chest Wo Cont Super Dimension Result Date: 05/18/2024 Impression: 1.There is a 1.8 x 1.8 x 1.8 cm spiculated nodule in the left lung apex concerning for malignancy. 2.Thyroid nodules can be further evaluated with a thyroid ultrasound. > Dictated by Natalio Villeda MD, (residential child care counselor). IAugie MD have personally reviewed and interpreted this examination/study. > Interpreting Provider: Augie Slater MD on 05/18/2024 3:21 PM ASSESSMENT: Andrey Giron is a 63 year old male w/ PMH significant for ESRD w/ HD MWF via R-IJ Permcath, andBasal cell carcinoma left nose presented in [facility] on 05/22 for surgical intervention. He is s/p Left nasal rhinectomy 05/22. Patient will undergo 2nd phase of surgery tomorrow on 05/23. The patient has been on HD for the last 4 months. He had a patent RUE fistula (Duplex 05/10/2024). As per patient, the fistula is not yet mature for function. Nephrology was consulted for maintenanceHD. On exam, patient is euvolemic, VSS, spo2: 95% RA, lab showed: Na/K: 136/3.9, Cr/BUN: 9.55/49, Last CxR: 05/18- No sign of volume overload. No urgent indication of HD today. PLAN: # ESRD w/ HD MWF - Access: R-IJ Permcath - Electrolytes: K - 3.9 - Acid Base: CO2 - 21 - Volume Status: Euvolemic - strict intake and output - renally dose medications - Plan for hemodialysis tomorrow 05/23 # Hypertension - BP 137/79 - Patient wasn't any anti hypertensive's - In patient on : Hydral 5 IV, and Labetalol 5 IV. 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 - Please check PTH, VitD, Phos, S. Albumin. - No need for Epo now. - Please continue Savelamer 800 tid - Please check CMP - Please avoid NSAID, Nephrotoxic drug or Contrast. Patient will be seen and discussed with attending physician, Dr. Mejia. Jacinto Obrien MD Nephrology Fellow 05/22/2024 7:52 PM Associated attestation - Binta Mejia MD - 05/23/2024 3:44 PM CDT I have seen and examined the patient with house-staff on rounds. I agree with the house-staff note with the additions/modificiations listed below. 63 year old male with h/o ESRD on HD MWF who has been admitted for surgery of BCC by ENT. Nephrology consulted for HD needs. As per patient he is unsure of the cause of his renal failure except he knows taht his kidneys shut down all of sudden and he had tubes placed (nephrostomy tube?) also had h/o ureteral stents per patient. He is been on HD for last 5 months via RIJ TDC. Has a newly created AVF on RFA but not used yet. On examination NAD, has black eschar on the left nose likely recent surgical site. He is planned for another surgery with ENT today and possible discharge afterwards HD today and if in house next HD Tuesday If stays longer than today will recommend to send PTH, Vit D levels Binta Mejia MD documented in this encounter OR Notes * Operative - Ritesh Mensah MD - 05/23/2024 1:06 PM CDT OPERATIVE REPORT NAME: Andrey Giron : 1960 CSN: [id number] DATE OF OPERATION: 05/23/2024 ATTENDING SURGEON: Ritesh Mensah MD Pre-Op Diagnosis: -Basal cell carcinoma, nose Post-Op Diagnosis: Same Procedure: -Reconstruction of nasal defect with forehead flap (CPT 05644) -Wound prep (CPT 79073) -Full thickness skin graft left cheek (CPT 34771) Operative findings: -Left nasal defect measuring 3.5cm x 3cm reconstructed with right paramedian forehead flap -Left medial cheek defect measuring 2.6cm x 1.2cm reconstructed with full thickness skin graft, taken from left neck Rn Ambulatory Irma Fung MD Indications for procedure: Andrey Giron is a 63 year old male with a history of basal cell carcinoma of the nose. The patient was evaluated in the Facial Plastic Surgery office on 05/04/24. At the time of evaluation, exam revealed exophytic left cheek/nose lesion. Surgical treatment to reconstruct the wound was discussed in detail with the patient. All questions answered. The patient was admitted 05/22/24 after wide localexcision of the basal cell carcinoma in the OR with Dr. Menezes. The patient agreed to proceed with surgery and presents on this date for the scheduled procedure. Details of Procedure: After the patient was identified in the preoperative holding area, He was transported to the operating room. Upon arrival in the OR, the patient and intended procedure were reviewed. He was placed kalyan supine position on the table. The patient was intubated by Anesthesia and the table was turned 180 degrees. The eyes were protected, left corneal shield. The patient was examined. All planned incisions were marked. Lidocaine 1% with 1:100,000 epinephrine was injected into the incision sites. The patient was prepped and draped in the usual sterile manner, with betadine diluted with saline. We examined the wound. The wound was circular in shape, located at the left nasal sidewall and leftmedial cheek. The depth of the wound was through the left nasal bone, with a portion of the nasal bone resected. The mucosa of the nose beneath the nasal bone was intact, thus it was not a through and through wound. The left medial cheek portion of the defect measured 2.6cm x 1.2cm. the nasal portion of the defect measured 3.5cm x 3cm.We prepared the wound. The base of the wound was cleaned. The surrounding tissues were elevated widely in the subcutaneous plane. All hemostatic material was debrided from the wound bed, until bleeding tissue was encountered. The edges of the wound were trimmed s harply to yield fresh bleeding tissue, where appropriate. Next, we reconstructed the cheek portion of the wound with a full thickness skin graft. The skin graft was marked in the left neck, with the closure lined up into an existing neck crease. An ellipse of skin was cut sharply. The skin was dissected in the sub-dermal plane. The wound was inspected. Mild elevation was done in the subcutaneous plane in the middle of the donor site to allow closure without tension. Bleeding controlled with bipolar cautery. The wound was closed with 5-0 monocryl in the deep layer and 5-0 chromic in the skin layer. The skin graft was further thinned on the deep surface to reveal the dermal surface. This was inset into the left cheek wound, trimmed to fit into the wound edges. It was inset with 5-0 chromic. It was dressed with xeroform bolster secured with 5-0 prolene. Next, we reconstructed the nasal defect. We performed the paramedian forehead flap. The template ofthe nasal defect was cut and placed into the right forehead, into the hairline. A doppler was used to confirm the location of the supratrochlear pedicle. The cuts were made sharply around the distal and sides of the forehead flap. The distal edge was elevated in the subcutaneous plane. In the forehead, the flap was elevated in the subgaleal plane. 2cm above the orbital rim, the periosteum was elevated off the bone and the flap was elevated in the subperiosteal plane. The base of the pedicle wasat least 1.5cm. The flap was rotated medially into the defect. The forehead flap was inset with 5-0 monocryl, 5-0 chromic, and 5-0 fast. The forehead donor site was closed primarily. The forehead waselevated in the subgaleal plane bilaterally. It was pulled together and secured with 3-0 vicryl. The skin was closed with 4-0 prolene and 4-0 chromic. The wounds were dressed with antibiotic ointment Estimated Blood Loss: 100mL Complications: None apparent. Condition: Stable I was present and performed all critical portions of the surgery. Ritesh Mensah MD Vehicle Modification Technician Facial Plastic and Reconstructive Surgery Otolaryngology- Head and Neck Surgery * Operative - Matteo Menezes MD - 05/22/2024 5:05 PM CDT Operative Report Name: Andrey Giron 1960 Age: [age] year old Proc Date: 05/22/24 Sex: male PREOPERATIVE DIAGNOSES: 1. Left nose basal cell carcinoma POSTOPERATIVE DIAGNOSES: 1. Same SURGEON: Matteo Menezes MD RESIDENT: Jaswinder Romero MD PROCEDURES: 1. Left partial rhinectomy FINDINGS: 1. 2.5 cm ulcerated cutaneous mass overlying the left nasal bone and fixed to it INDICATIONS FOR PROCEDURE: The patient is a 63 year old male with a history of prior large left cheek basal cell carcinoma removed with large skin graft who is now referred for a new basal cell carcinoma overlying the left nasal bone with concern for invasion of the bone. After reviewing multiple adjuvant options including reconstructive options with Dr. Aniket Raines we will proceed with a partial rhinectomy including resection of the nasal bone with delayed reconstruction. After again reviewing the rationale, expected recovery, risks and alternatives of the above procedures in the pre-operative holding area, the patient agreed to proceeding. DESCRIPTION OF PROCEDURE: The patient was brought to the operating room and placed in the supine position on the operating table. General anesthesia was induced. he was orotracheally intubated without difficulty. A 5 mm margin was marked around the tumor which extended to the midline the nasal dorsum and approach but did not involve the medial canthus as well as extended onto the prior skin tony the cheek. These margins were injected with local anesthetic. The face was then prepped and draped usual sterile fashion. The skin was divided with complete scalpel. Over the nasal dorsum we came down to nasal bone just left of midline. Inferiorly we dissected down onto the upper lateral cartilage. Laterally we dissected through the subcutaneous fat of the cheek down to the maxilla and then elevated up onto the nasal process the maxilla. In the carefully dissected through the eyelid preserving the periorbital fat until we connected down onto the nasal bone. We then incised the periosteum at the caudal aspect of the nasal bone and then elevated in a plane just deep to the bone preserving the perichondrium to this and then used a 2 mm bur to make an osteotomy vertically through the nasalbone just left of midline, vertically laterally along the nasal process maxilla and then lastly superiorly. This freed the specimen which was then frozen frozen section for analysis. There was a single small tear externally 3 mm in length over the anterior up to the nasal bone into the nasal cavityon the root of the periosteum over the nasal cavity was preserved. Bleeding was controlled with topical epinephrine and bipolar cautery. The margins were sent for frozen section and found to be negative. The wound was then dressed with Xeroform bolster secured with 2-0 silk suture for delayed reconstruction. The patient was then allowed to awaken, extubated, brought to recovery in stable condition. COMPLICATIONS: None. ESTIMATED BLOOD LOSS: 20 mL DISPOSITION: Floor Matteo Menezes MD documented in this encounter Plan of Treatment Upcoming Encounters Date Type Department Care Team (Late st Contact Info) Description 10/16/2024 1:30 PM DIRECTOR OF RESIDENCE LIFE Office Visit [facility] - ENT [address] [place] [address] [phone] Ritesh Mensah MD [address] [place] [address] [place] [address] documented as of this encounter Procedures Procedure Name Priority Date/Time Associated Diagnosis Comments HEMODIALYSIS INPATIENT Routine 05/23/2024 10:44 AM CDT HEPATITIS B SURFACE ANTIBODY QUANT STAT 05/23/2024 7:24 AM CDT VITAMIN D 25-HYDROXY Routine 05/23/2024 7:24 AM CDT BASIC METABOLIC PANEL (CALCIUM TOTAL) Routine 05/23/2024 7:24 AM CDT PHOSPHORUS BLOOD Routine 05/23/2024 7:24 AM CDT MAGNESIUM BLOOD Routine 05/23/2024 7:24 AM CDT HEPATITIS B SURFACE ANTIGEN W RFLX CONFIRMATION STAT 05/23/2024 7:24 AM CDT ALBUMIN BLOOD Routine 05/23/2024 7:24 AM CDT PATHOLOGY TISSUE Routine 05/22/2024 5:20 PM CDT Basal cell carcinoma (BCC) of lateral side wall of nose IN RECONSTR NOSE 05/22/2024 4:13 PM CDT Basal cell carcinoma (BCC) of lateral side wall of nose Case Notes Per MD office: PT LIVES IN [facility] FOR [phone] Special Needs Supine 05/17 BLOOD TYPE VERIFICATION Routine 05/22/2024 3:11 PM CDT TYPE + SCREEN PANEL STAT 05/22/2024 2 :54 PM CDT Preop examination CBC W AUTO DIFFERENTIAL STAT 05/22/2024 2:54 PM CDT Preop examination BASIC METABOLIC PANEL (CALCIUM TOTAL) STAT 05/22/2024 2:54 PM CDT Preop examination documented in this encounter Results * HEPATITIS B SURFACE ANTIGEN W RFLX CONFIRMATION (05/23/2024 7:24 AM CDT) Pathologist [facility] Hepatitis B Virus Surface Antigen Non-reacti ve Non-reacti ve 05/23/2024 8:40 AM CDT [facility] Blood BLOOD SPECIMEN / Unknown Venipuncture / Unknown 05/23/2024 7:24 AM CDT 05/23/2024 7:48 AM CDT Kimani Rivera MD LAB - CHEMISTRY [facility] [address] [address], [facility] [phone] * HEPATITIS B SURFACE ANTIBODY QUANT (05/23/2024 7:24 AM CDT) Pathologist [facility] Hepatitis B Virus Surface Antibody 3.55 IU/L 05/25/2024 8:12 AM CDT [employer] ([facility]) Comment: The anti-HBs is less than 10 [...] Cellular and Tissue-Based Products (HCT/P). Performed By: [facility] [employer] [address] [place] [address] Rider Ticket Worker: Mahendra Duron MD, PhD CLIA Number: [id number] Blood BLOOD SPECIMEN / Unknown Venipuncture / Unknown 05/23/2024 7:24 AM CDT 05/23/2024 8:06 AM CDT Kimani Rivera MD LAB - SEROLOGY ORDER [facility]) [address] [place] [address] * MAGNESIUM BLOOD (05/23/2024 7:24 AM CDT) Magnesium 2.2 1.6 - 2.6 mg/dL 05/23/2024 8:18 AM CDT [facility] Blood BLOOD SPECIMEN / Unknown Venipuncture / Unknown 05/23/2024 7:24 AM CDT 05/23/2024 7:50 AM CDT Matteo Menezes MD LAB - CHEMISTRY [facility] [address] [address], [facility] [phone] * ALBUMIN BLOOD (05/23/2024 7:24 AM CDT) Albumin 3.6 3.4 - 5.0 g/dL 05/23/2024 8:17 AM CDT [facility] Blood BLOOD SPECIMEN / Unknown Venipuncture / Unknown 05/23/2024 7:24 AM CDT 05/23/2024 7:50 AM CDT Matteo Menezes MD LAB - CHEMISTRY [facility] Performing Organization Address [facility]/ZIP Co de Phone Number [address] [address], [facility] [phone] * (ABNORMAL) VITAMIN D 25-HYDROXY (05/23/2024 7:24 AM CDT) [facility] Vitamin D, 25 Hydroxy 22.4(L) 30.0 - 80.0 ng/mL 05/23/2024 8:35 AM CDT [facility] Comment: The recommendations for 25-Hydroxy Vitamin D [...] Menezes MD LAB - CHEMISTRY [facility]ELDA [facility] [address] [address], [facility] [phone] * (ABNORMAL) PHOSPHORUS BLOOD (05/23/2024 7:24 AM CDT) Phosphorus 6.9(H) 2.8 - 5.1 mg/dL 05/23/2024 8:18 AM [facility] Blood BLOOD SPECIMEN / Unknown Venipuncture / Unknown 05/23/2024 7:24 AM CDT 05/23/2024 7:50 AM CDT Matteo Menezes MD LAB - CHEMISTRY [facility]DA [facility] Performing Organization Address [facility]/ZIP Co de Phone Number [address] [address], [facility] [phone] * (ABNORMAL) BASIC METABOLIC PANEL (CALCIUM TOTAL) (05/23/2024 7:24 AM CDT) Pathologist [facility] BUN 59(H) 7 - 26 mg/dL 05/23/2024 8:18 AM [facility] Creatinine 10.53(H) 0.71 - 1.16 mg/dL 05/23/2024 8:18 AM [facility] Sodium 138 136 - 145 mmol/L 05/23/2024 8:18 AM [facility] Potassium 4.4 3.5 - 4.5 mmol/L 05/23/2024 8:18 AM [facility] Chloride 105 98 - 107 mmol/L 05/23/2024 8:18 AM [facility] CO2 21(L) 22 - 29 mmol/L 05/23/2024 8:18 AM [facility] Glucose 108 70 - 115 mg/dL 05/23/2024 8:18 AM [facility] Calcium 8.6 8.4 - 10.2 mg/dL 05/23/2024 8:18 AM [facility] Anion Gap 12 6 - 16 05/23/2024 8:18 AM [facility] BUN/Creatinine Ratio 6(L) 7 - 23 05/23/2024 8:18 AM CDT [facility] Osmolality Calculated 303(H) 275 - 295 mOsm/kg 05/23/2024 8:18 AM CDT [facility] eGFR by CKD-EPI 5(L) >=90 mL/min/1.7 3 m2 05/23/2024 8:18 AM CDT [facility] Blood BLOOD SPECIMEN / Unknown Venipuncture / Unknown 05/23/2024 7:24 AM CDT 05/23/2024 7:50 AM CDT Matteo Menezes MD LAB - CHEMISTRY [facility] Performing Organization Address [facility]/State/ZIP Co de Phone Number [facility] [address] [place] [address], [facility] [phone] * PATHOLOGY TISSUE (05/22/2024 5:20 PM CDT) Case Report Surgical Pathology Report ? Case: [id number] ? Authorizing Provider: ??Matteo Menezes MD ?Collected: ? 05/22/2024 05:20 PM ? Ordering Location: ? [facility] ?Received: ?05/23/2024 04:42 AM ? Pathologist: ? Sunny Slade MD ? Specimens: ?? A) - Margin, Medial cheeck margin anterior margin ? B) - Margin, Canthus margin anterior margin ? C) - Tumor, Left rhinectomy stitch superior ? 4 1:35 PM [facility] Final Diagnosis Skin, left rhinectomy, excision (C): - Basal cell carcinoma - No perineural invasion - No involvement of bone - All margins negative (nearest = 1.5 mm to medial peripheral on the superior aspect) Margin, medial cheek anterior margin, excision (A/FSA): - Negative for carcinoma - Skin with actinic changes Margin, canthus anterior margin, excision (B/FSB): - Negative for carcinoma - Skin with actinic changes 4 1:35 PM [facility] Microscopic Description and Comment Microscopic examination substantiates the final diagnosis. 4 1:35 PM [facility] Clinical History History of BCC 1:35 PM [facility] Intraoperative Consultation Medial cheek margin + is a 2.0 x 0.4 cm thin strip of pale skin excised to a depth of 0.6 cm inked along the true margin by the surgeon. Entirely frozen en face (ink down) per surgeon discussion, as FS A1. Intraoperative diagnosis: FS A1 skin, medial cheek margin, anterior margin, excision: - Negative for carcinoma by MD Clifford Canthus margin anterior + is a 2.5 x 0.4 cm strip of pale skin excised to depth 0.5 cm which is inked along the true margin by the surgeon. Entirely frozen en face (ink down) per surgeon discussion, as FS B1. Intraoperative diagnosis: FS B1 skin, canthus margin, anterior margin - Negative for carcinoma by MD Clifford 4 1:35 PM [facility] Gross Description The requisition and specimen(s) are identified with the patient's name Andrey Giron . Received fresh for frozen section, specimen A , and consists of a 2.0 x 0.4 cm portion of worley-ling, irregular, hairbearing skin, excised to a depth of 0.6 cm, which has been previously inked on the true margin by the surgeon. The specimen is entirely submitted, en face, in a single cassette labeled A1. Received fresh for frozen section, specimen B , and consists of a 2.5 x 0.4 cm strip of pale worley-brown skin, excised to a depth of 0.5 cm, which has been previously inked along the true margin by the surgeon. The specimen is entirely submitted in a single cassette, en face, labeled B1. Received in formalin, specimen C , and consists of a 3.1 x 2.8 cm portion of worley-white, finely granular, irregular skin, excised to an average depth of 0.8 cm, which has a single suture present denoting superior. Located centrally on the skin surface is a 2.0 x 1.8 cm worley-brown to red-brown, variegated, irregular, ulcerative, skin lesion with raised rolled irregular borders. Located on the posterior aspect of the specimen is a 1.6 x 1.4 cm portion of worley-white hard bony tissue. The specimen is inked blue on the superior margin, green on the inferior margin, black on the posterior margin, yellow on the lateral margin, orange on the medial margin, and step sectioned. The cut surfaces of the lesion show worley-white, homogenous, firm tissue which extends to within 0.2 cm of the inked deep resection margin, 0.2 cm of the superior margin, 0.5 cm of the inferior margin, 0.3 cm of the lateral margin, and 0.1 cm of the medial margin. The remaining cut surfaces show worley-brown, homogenous, soft tissue. The specimen is entirely submitted in eight cassettes, following fixation and decalcification, labeled as follows: C1 superior tip, step sectioned C2-C7 transverse sections, to include medial, lateral, and posterior margins C8 inferior tip, trisected RB 4 1:35 PM [facility] Pathologist Location at [facility] 4 1:35 PM CDT [facility] Disclaimer The performance characteristics of all immunohistochemical and indirect immunofluorescence stains (if any) cited in this report were determined by the Histopathology Laboratory of [facility]. Some of these tests were developed [...] interpreted by the attending (teaching) pathologist. 4 1:35 PM CDT [facility] Embedded Images 4 1:35 PM CDT [facility] Biopsy, Excision (Margin) 05/22/2024 5:20 PM CDT 05/23/2024 4:42 AM CDT Comment:Pre-op diagnosis: Basal cell carcinoma (BCC) of lateral side wall of nose Biopsy, Excision (Margin) 05/22/2024 5:22 PM CDT 05/23/2024 4:42 AM CDT Comment:Pre-op diagnosis: Basal cell carcinoma (BCC) of lateral side wall of nose Biopsy, Excision TUMOR TISSUE SPECIMEN / Unknown 05/22/2024 5:25 PM CDT 05/23/2024 4:42 AM CDT Comment:Pre-op diagnosis: Basal cell carcinoma (BCC) of lateral side wall of nose Matteo Menezes MD LAB - PATHOLOGY/CYTO LOGY ORDERABLES [facility] [address] [place] [address], [facility] [phone] * BLOOD TYPE VERIFICATION (05/22/2024 3:11 PM CDT) ABO Rh O POS 05/22/2024 3:5 5 PM CDT [facility] Blood Bank BLOOD SPECIMEN / Unknown Venipuncture / Unknown 05/22/2024 3:11 PM CDT 05/22/2024 3:21 PM CDT Matteo Menezes MD LAB - BLOOD BANK ORD ERABLES [facility] [address] [place] [address], [facility] [phone] * TYPE + SCREEN PANEL (05/22/2024 2:54 PM CDT) Antibody Screen NEG 3:47 PM CDT [facility] ABO Rh O POS 05/22/2024 3:47 PM CDT [facility] Blood Bank BLOOD SPECIMEN / Unknown Venipuncture / Unknown 05/22/2024 2:54 PM CDT 05/22/2024 3:04 PM CDT Albino Bah MD LAB - BLOOD BANK ORD ERABLES Performing Organization Address City/[facility]/ZIP Co de Phone Number [facility] [address] [place] [address], [facility] [phone] * (ABNORMAL) BASIC METABOLIC PANEL (CALCIUM TOTAL) (05/22/2024 2:54 PM CDT) BUN 49(H) 7 - 26 mg/dL 05/22/2024 3:35 PM CDT [facility] Creatinine 9.55(H) 0.71 - 1.16 mg/dL 05/22/2024 3:35 PM CDT [facility] Sodium 136 136 - 145 mmol/L 05/22/2024 3:35 PM CDT [facility] Potassium 3.9 3.5 - 4.5 mmol/L 05/22/2024 3:35 PM CDT [facility] Chloride 104 98 - 107 mmol/L 05/22/2024 3:35 PM CDT [facility] CO2 21(L) 22 - 29 mmol/L 05/22/2024 3:35 PM CDT [facility] Glucose 98 70 - 115 mg/dL 05/22/2024 3:35 PM CDT [facility] Calcium 9.4 8.4 - 10.2 mg/dL 05/22/2024 3:35 PM [facility] Anion Gap 11 6 - 16 05/22/2024 3:35 PM [facility] BUN/Creatinine Ratio 5(L) 7 - 23 05/22/2024 3:35 PM [facility] Osmolality Calculated 295 275 - 295 mOsm/kg 05/22/2024 3:35 PM [facility] eGFR by CKD-EPI 6(L) >=90 mL/min/1.7 3 m2 05/22/2024 3:35 PM [facility] Blood BLOOD SPECIMEN / Unknown Venipuncture / Unknown 05/22/2024 2:54 PM CDT 05/22/2024 3:01 PM CDT Albino Bah MD LAB - CHEMISTRY NELDA TIPTON [facility] [address] [place] [address], [facility] [phone] * (ABNORMAL) CBC W AUTO DIFFERENTIAL (05/22/2024 2:54 PM CDT) WBC 8.1 4.0 - 10.7 x10E9/L 05/22/2024 3:10 PM [facility] RBC Count 3.53(L) 4.30 - 5.80 x10E12/L 05/22/2024 3:10 PM [facility] Hemoglobin 11.5(L) 13.3 - 17.5 g/dL 05/22/2024 3:10 PM [facility] Hematocrit 33.6(L) 38.7 - 51.1 % 05/22/2024 3:10 PM [facility] MCV 95.2 80.0 - 98.0 fL 05/22/2024 3:10 PM [facility] MCH 32.6 26.7 - 33.6 pg 05/22/2024 3:10 PM [facility] MCHC 34.2 31.7 - 36.3 g/dL 05/22/2024 3:10 PM [facility] RDW-CV 15.9(H) 11.3 - 14.8 % 05/22/2024 3:10 PM [facility] Platelet Count 198 150 - 420 x10E9/L 05/22/2024 3:10 PM [facility] MPV 9.6 7.8 - 11.4 fL 05/22/2024 3:10 PM [facility] Neutrophil % 70.8 41.0 - 74.0 % 05/22/2024 3:10 PM [facility] Lymphocyte % 19.4 17.0 - 47.0 % 05/22/2024 3:10 PM [facility] Monocyte % 6.8 3.0 - 11.0 % 05/22/2024 3:10 PM [facility] Eosinophil % 2.1 0.0 - 7.0 % 05/22/2024 3:10 PM [facility] Basophil % 0.7 0.0 - 1.6 % 05/22/2024 3:10 PM [facility] Immature Granulocytes % 0.2 0.0 - 1.0 % 05/22/2024 3:10 PM [facility] Neutrophil Absolute 5.76 1.60 - 7.50 x10E9/L 05/22/2024 3:10 PM [facility] Lymphocyte Absolute 1.58 1.00 - 4.40 x10E9/L 05/22/2024 3:10 PM [facility] Monocyte Absolute 0.55 0.15 - 1.00 x10E9/L 05/22/2024 3:10 PM [facility] Eosinophil Absolute 0.17 0.00 - 0.60 x10E9/L 05/22/2024 3:10 PM [facility] Basophil Absolute 0.06 0.00 - 0.13 x10E9/L 05/22/2024 3:10 PM [facility] Blood BLOOD SPECIMEN / Unknown Venipuncture / Unknown 05/22/2024 2:54 PM CDT 05/22/2024 3:04 PM T Albino Bah MD LAB - HEMATOLOGY ORD ERABLES [facility] [address] [place], [place] [id number], [facility] [phone] documented in this encounter Visit Diagnoses Diagnosis Preop examination- Primary Preoperative examination, unspecified Basal cell carcinoma (BCC) of left nasal sidewall Basal cell carcinoma (BCC) of lateral side wall of nose Basal cell carcinoma (BCC) of lateral side wall of nose documented in this encounter Administered Medications Inactive Administered Medications - up to 3 most recent administrations Medication Order MAR Action Action Date Dose Rate Site acetaminophen (Tylenol) tablet 650 mg 650 mg, Oral, EVERY 6 HOURS, First dose on Tue05/22/24 at 1800, Until Discontinued, Patient preference for lesser PRN [...] patient cannot tolerate oral intake $ Given 05/24/2024 12:32 AM CDT 650 mg $ Given 05/23/2024 5:10 PM CDT 650 mg $ Given 05/22/2024 8:34 PM CDT 650 mg bss ophthalmic solution PRN, Starting on Tue05/22/24 at 1800, Until Tue05/22/24 at 1820, Intra-op $ Given 05/22/2024 6:00 PM CDT 15 mL Operative Site EPINEPHrine PF (Adrenalin) 1 MG/10ML injection PRN, Starting on Tue05/22/24 at 1759, Until Tue05/22/24 at 1820, Intra-op $ Given 05/22/2024 5:59 PM CDT 1 mg Operative Site finasteride (Proscar) tablet 5 mg 5 mg, Oral, DAILY, First dose on Tue05/23/24 at 0900, Until Discontinued, Women who are or planning to become should not handle crushed or broken tablets $ Given 05/24/2024 8:17 AM CDT 5 mg heparin injection 1,000 Units 1,000 Units, Intracatheter, POST-DIALYSIS MULTIPLE, Starting on Tue05/23/24 at 0619, Until Hiwot 05/24/24 at 1014, Post txmt CVC lumen dwell. Use indicated volume listed on each lumen. $ Given 05/23/2024 11:07 AM CDT 4,800 Units lidocaine 1% (Xylocaine-MPF)- EPINEPHrine 1:200,000 injection PRN, Starting on Tue05/22/24 at 1713, Until Tue05/22/24 at 1820, Intra-op $ Given 05/22/2024 5:13 PM CDT 10 mL Operative Site ondansetron (disintegrating) (Zofran ODT) tablet 4 mg 4 mg, Oral, EVERY 6 HOURS PRN, Nausea/Vomiting, Starting on Tue05/22/24 at 2247, Until Hiwot 05/24/24 at 1014, Dissolved orally on tongue, Post-op ondansetron (Zofran) injection 4 mg 4 mg, Intravenous, EVERY 6 HOURS PRN, Nausea/Vomiting, Starting on Tue05/22/24 at 2247, Until Hiwot 05/24/24 at 1014, Administer IV if patient is NPO, actively vomiting, or unable to swallow., Post-op oxyCODONE (immediate release) (Roxicodone) tablet 10 mg 10 mg, Oral, EVERY 6 HOURS PRN, Severe Pain, Starting on Tue05/22/24 at 1652, Until Hiwot 05/24/24 at 1014, Patient preference for lesser PRN pain meds [...] patient cannot tolerate oral intake $ Given 05/22/2024 8:34 PM CDT 10 mg oxyCODONE (immediate release) (Roxicodone) tablet 5 mg 5 mg, Oral, EVERY 4 HOURS PRN, Moderate Pain, Starting on Tue05/22/24 at 1652, Until Hiwot 05/24/24 at 1014, Patient preference for lesser PRN pain meds [...] first unless patient cannot tolerate oral intake prochlorperazine (Compazine) tablet 5 mg 5 mg, Oral, EVERY 8 HOURS PRN, Nausea/Vomiting, Starting on Tue05/23/24 at 1849, Until Tue05/24/24 at 1014 saline nasal spray ([place]; Baby Crosby) 0.65 % nasal spray 1 spray 1 spray, Each Nostril, EVERY 30 MIN PRN, Dry Nose, Starting on Tue05/22/24 at 1915, Until Tue05/24/24 at 1014 sevelamer carbonate (Renvela) tablet 800 mg 800 mg, Oral, 3 TIMES DAILY WITH MEALS, First dose on Tue05/22/24 at 1800, Until Discontinued $ Given 05/24/2024 8:18 AM CDT 800 mg $ Given 05/23/2024 6:13 PM CDT 800 mg $ Given 05/22/2024 7:46 PM CDT 800 mg tamsulosin (Flomax) capsule 0.4 mg 0.4 mg, Oral, DAILY, First dose on Tue05/23/24 at 0900, Until Discontinued, At the same time every day after a meal. Do not crush, chew, or open. $ Given 05/24/2024 8:18 AM CDT 0.4 mg documented in this encounter Active and Recently Administered Medications Times are shown in CDT. Scheduled Medication Order 05/22/2024 05/23/2024 05/24/2024 acetaminophen (Tylenol) tablet 650 mg 650 mg, Oral, EVERY 6 HOURS, First dose on Tue05/22/24 at 1800, Until Discontinued, Patient preference for lesser PRN [...] first unless patient cannot tolerate oral intake 2033 ($ Given - Provider: Nuha Acuna RN) 0155 (Not Administered - Provider: Nuha Acuna RN - Reason: Refused-Patient)1151 (Not Administered - Provider: Ramy William RN - Reason: Other - Comment: off unit to HD then surgery)1710 ($ Given - Provider: Sienna Espinal RN)2356 (Not Administered - Provider: Melida Pickering RN - Reason: Refused-Patient) 0032 ($ Given - Provider: Melida Pickering RN)0600 (Due) finasteride (Proscar) tablet 5 mg 5 mg, Oral, DAILY, First dose on Tue05/23/24 at 0900, Until Discontinued, Women who are or planning to become should not handle crushed or broken tablets 0942 (Not Administered - Provider: Ramy William RN - Reason: Other - Comment: pt off the floor for HD and then surgery) 0817 ($ Given - Provider: Ramy William RN) heparin injection 1,000 Units 1,000 Units, Intracatheter, POST-DIALYSIS MULTIPLE, Starting on Tue05/23/24 at 0619, Until Tue05/24/24 at 1014, Post txmt CVC lumen dwell. Use indicated volume listed on each lumen. 1107 ($ Given - Provider: Dina Brown RN) polyethylene glycol 3350 (Miralax) packet 17 g 17 g, Oral, DAILY, First dose on Tue05/23/24 at 0900, Until Discontinued, Mix in 8 ounces of water, juice, soda, coffee or tea prior to administration 0943 (Not Administered - Provider: Ramy William RN - Reason: Other - Comment: pt off the floor for HD and then surgery) 0819 (Not Administered - Provider: Ramy William RN - Reason: Refused-Patient) sevelamer carbonate (Renvela) tablet 800 mg 800 mg, Oral, 3 TIMES DAILY WITH MEALS, First dose on Tue05/22/24 at 1800, Until Discontinued 1946 ($ Given - Provider: Gonzalo Rodriguez RN) 0900 (Not Administered - Provider: Ramy William RN - Reason: See Comments - Comment: off unit for HD then surgery)1151 (Not Administered - Provider: Ramy William RN - Reason: Other - Comment: off unit to HD then surgery)1813 ($ Given - Provider: Ramy William RN) 0818 ($ Given - Provider: Ramy William RN) tamsulosin (Flomax) capsule 0.4 mg 0.4 mg, Oral, DAILY, First dose on Tue05/23/24 at 0900, Until Discontinued, At the same time every day after a meal. Do not crush, chew, or open. 0942 (Not Administered - Provider: Ramy William RN - Reason: Other - Comment: pt off the floor for HD and then surgery) 0818 ($ Given - Provider: Ramy William RN) Continuous Medication Order 05/22/2024 05/23/2024 05/24/2024 0.9% NaCl infusion (CANCELED) at 50 mL/hr, Intravenous, CONTINUOUS, Starting on Tue05/22/24 at 1545, Until Tue05/23/24 at 1851 1517 ($ New Bag/Syringe - Provider: Magdalena Marley RN) dextrose 5 % and 0.45% NaCl infusion (CANCELED) at 75 mL/hr, Intravenous, CONTINUOUS, Starting on Tue05/22/24 at 2300, Until Tue05/23/24 at 1851, Post-op 0156 ($ New Bag/Syringe - Provider: Nuha Acuna RN) PRN Medication Order 05/22/2024 05/23/2024 05/24/2024 bss ophthalmic solution (CANCELED) PRN, Starting on Tue05/22/24 at 1800, Until Tue05/22/24 at 1820, Intra-op 1800 ($ Given - Provider: Jaswinder Romero MD - Comment: Given to back table) bss ophthalmic solution (CANCELED) PRN, Starting on Tue05/23/24 at 1515, Until Tue05/23/24 at 1538, Intra-op 1515 ($ Given - Provider: Irma Fung MD) calcium carbonate (Tums) chew tablet 2 tablet 2 tablet, Oral, EVERY 4 HOURS PRN, GI Upset, Starting on Tue05/22/24 at 2247, Until Hiwot 05/24/24 at 1014, Post-op diphenhydrAMINE (Benadryl) injection 25 mg 25 mg, Intravenous, EVERY 6 HOURS PRN, Itching, Starting on Tue05/22/24 at 2247, Until Hiwot 05/24/24 at 1014, Administer IV at a rate not exceeding 25 mg/min. Can dilute in 5-10 mL NS as needed for patient comfort., Post-op EPINEPHrine PF (Adrenalin) 1 MG/10ML injection (CANCELED) PRN, Starting on Tue05/22/24 at 1759, Until Tue05/22/24 at 1820, Intra-op 1759 ($ Given - Provider: Jaswinder Romero MD - Comment: Given to back table) fentaNYL (PF) (Sublimaze) injection 25 mcg (CANCELED) 25 mcg, Intravenous, EVERY 10 MIN PRN, Mild Pain, 4 doses, Starting on Tue05/23/24 at 1454, Until Tue05/23/24 at 1754, Maximum total of 4 doses. If patient [...] unless patient cannot tolerate oral intake, PACU 1625 ($ Given - Provider: Sienna Espinal RN)1635 ($ Given - Provider: Sienna Espinal RN) fentaNYL (PF) (Sublimaze) injection 50 mcg (CANCELED) 50 mcg, Intravenous, EVERY 10 MIN PRN, Moderate Pain, 4 doses, Starting on Tue05/23/24 at 1454, Until Tue05/23/24 at 1754, Maximum total of 4 doses. If patient [...] unless patient cannot tolerate oral intake, PACU 1710 ($ Given - Provider: Sienna Espinal RN) HYDROmorphone (Dilaudid) injection 0.5 mg (CANCELED) 0.5 mg, Intravenous, EVERY 10 MIN PRN, Severe Pain, 4 doses, Starting on Tue05/22/24 at 1802, Until Tue05/22/24 at 2023, Maximum total of 4 doses If patient [...] unless patient cannot tolerate oral intake, PACU 1839 ($ Given - Provider: Gonzalo Rodriguez RN) lidocaine 1% (Xylocaine) - EPINEPHrine 1:100,000 injection (CANCELED) PRN, Starting on Tue05/23/24 at 1300, Until Tue05/23/24 at 1538, Intra-op 1300 ($ Given - Provider: Ritesh Mensah MD) lidocaine 1% (Xylocaine-MPF)- EPINEPHrine 1:200,000 injection (CANCELED) PRN, Starting on Tue05/22/24 at 1713, Until Tue05/22/24 at 1820, Intra-op 1713 ($ Given - Provider: Matteo Menezes MD - Comment: Given to back table) ondansetron (disintegrating) (Zofran ODT) tablet 4 mg(Linked Group 1) 4 mg, Oral, EVERY 6 HOURS PRN, Nausea/Vomiting, Starting on Tue05/22/24 at 2247, Until Hiwot 05/24/24 at 1014, Dissolved orally on tongue, Post-op ondansetron (Zofran) injection 4 mg(Linked Group 1) 4 mg, Intravenous, EVERY 6 HOURS PRN, Nausea/Vomiting, Starting on Tue05/22/24 at 2247, Until Hiwot 05/24/24 at 1014, Administer IV if patient is NPO, actively vomiting, or unable to swallow., Post-op ondansetron (Zofran) injection 4 mg (COMPLETED) 4 mg, Intravenous, ONCE PRN, Nausea/Vomiting, 1 dose, Starting on Tue05/23/24 at 1454, Until Tue05/23/24 at 1555, First choice, PACU 1555 ($ Given - Provider: Sienna Espinal RN) oxyCODONE (immediate release) (Roxicodone) tablet 10 mg(Linked Group 2) 10 mg, Oral, EVERY 6 HOURS PRN, Severe Pain, Starting on Tue05/22/24 at 1652, Until Tue05/24/24 at 1014, Patient preference for lesser PRN pain meds [...] first unless patient cannot tolerate oral intake 2033 ($ Given - Provider: Nuha Acuna RN) oxyCODONE (immediate release) (Roxicodone) tablet 5 mg(Linked Group 2) 5 mg, Oral, EVERY 4 HOURS PRN, Moderate Pain, Starting on Tue05/22/24 at 1652, Until Tue05/24/24 at 1014, Patient preference for lesser PRN pain meds [...] first unless patient cannot tolerate oral intake 2033 (See Alternative - Provider: Nuha Acuna RN) prochlorperazine (Compazine) tablet 5 mg 5 mg, Oral, EVERY 8 HOURS PRN, Nausea/Vomiting, Starting on Tue05/23/24 at 1849, Until Tue05/24/24 at 1014 saline nasal spray ([place]; Baby Crosby) 0.65 % nasal spray 1 spray 1 spray, Each Nostril, EVERY 30 MIN PRN, Dry Nose, Starting on Tue05/22/24 at 1915, Until Tue05/24/24 at 1014 Linked Groups Order Group 1: ondansetron (disintegrating) (Zofran ODT) tablet 4 mgJump to med 4 mg, Oral, EVERY 6 HOURS PRN, Nausea/Vomiting, Starting on Tue05/22/24 at 2247, Until Hiwot 05/24/24 at 1014, Dissolved orally on tongue, Post-op Or ondansetron (Zofran) injection 4 mgJump to med 4 mg, Intravenous, EVERY 6 HOURS PRN, Nausea/Vomiting, Starting on Tue05/22/24 at 2247, Until Hiwot 05/24/24 at 1014, Administer IV if patient is NPO, actively vomiting, or unable to swallow., Post-op Group 2: oxyCODONE (immediate release) (Roxicodone) tablet 5 mgJump to med 5 mg, Oral, EVERY 4 HOURS PRN, Moderate Pain, Starting on Tue05/22/24 at 1652, Until Hiwot 05/24/24 at 1014, Patient preference for lesser PRN pain meds [...] mgJump to med 10 mg, Oral, EVERY 6 HOURS PRN, Severe Pain, Starting on Tue05/22/24 at 1652, Until Hiwot 05/24/24 at 1014, Patient preference for lesser PRN pain meds [...] first unless patient cannot tolerate oral intake documented in this encounter Care Teams Tool Marker Relationship Specialty Start Date End Date None, Physician [address] [place] [address] PCP - General 04/10/24 documented as of this encounter
--- OUTSIDE RECORDS SUMMARY | 2024-09-24 06:05 | XMS_ITS | Encounter Summary ---
Author Organization [facility] Address [address] [place] [address] Care Team Providers Care Deicer Repairer Pneumatic Name Role Phone None, Physician Primary Care Provider Unavailabl e Encounter Details Date Type Department Care Team (Late st Contact Info) Description 05/04/2024 3:45 PM CDT Office Visit [facility] - ENT [address] [place] [address], [place] [phone] Ritesh Mensah MD [address] [place] [address] [place] [address] Basal cell carcinoma of nose (Primary Dx) Social History Tobacco Use Types Packs/Day Years Used Date Smoking Tobacco: Never Assessed Sex and Gender Information Value Date Recorded Sex Assigned at Not on file Gender Identity Not on file Sexual Orientation Not on file documented as of this encounter Progress Notes * Ritesh Mensah MD - 05/04/2024 3:54 PM CDT History of Present Illness: 63 year old who presents for preoperative consultation prior to facial reconstruction surgery. He is a [facility] of [facility] living in [place]. The patient's skin lesion is located left nasal sidewall/cheek. The lesion has been present for 5 years. Onset was not associated with trauma. The patient reports the following associated symptoms with the skin lesion: scabbing, bleeding The patient has received a biopsy of the lesion- yes, basal cell carcinoma, I have reviewed the medical record confirming this diagnosis The patient has been evaluated by the Mohs surgeon- yes, Dr. Ballard who referred to Dr. Menezes for excision. I have reviewed the Mohs surgeon's office notes The patient has history of prior skin cancer- yes, he had a basal cell nearby on the left cheek, treated with excision and skin graft, he estimates 10 years ago. The skin graft was taken from the left flank The patient has previous history of Mohs reconstruction surgery- yes, excision of basal cell from the left cheek The patient has history of heavy sun exposure- unclear The patient has history of head and neck radiation- no The patient takes anticoagulation- no The patient has history of keloid/poor scarring- no The patient denies associated head and neck symptoms, such as noticing a new neck mass, facial numbness, vision changes, nasal obstruction, swallowing difficulty The patient uses nicotine- no Review of Systems: ROS x 14 was performed and all systems were negative except for left cheek mass No past medical history on file. PSH: has no past surgical history on file. Current Outpatient Medications Medication Sig Dispense Refill acetaminophen (Tylenol) 500 [...] No current facility-administered medications for this visit. Allergies Patient has no known allergies. No family history on file. Physical Exam: Constitutional: Alert, No acute Distress; Well developed/well nourished Neuro: Facial sensation intact to light touch, facial expressions symmetrical Eyes: conjunctiva clear, EOMI Face/Skin: Skin lesion : there is a large exophytic left cheek/nasal sidewall mass, 4cm . Healed skin graft covering left malar cheek Ears: Right: External auricle normal Left: External auricle normal Nose: External normal, nares patent, no nasal drainage Mouth: symmetric tongue mobility, no lesions/masses/ulcers Neck: supple, no lymphadenopathy, no masses Voice: strong MusculoSkeletal: moves all extremities well Pulm: Breathing comfortably on room air. CV: Extremities warm to palpation. Assessment and Plan: The patient is a 63 year old male who presents for preoperative evaluation prior to facial reconstruction. The patient has a biopsy-proven basal cell carcinoma located at the left nasal sidewall/left cheek. This likely represents a recurrence of his prior basal cell excised from the left cheek. We discussed at length the options for facial reconstruction. We discussed the option of letting the wound heal on its own without surgery, but this will leave a poor scar. We discussed using a skin graft to reconstruct the wound. This will require prolonged wound care and a postoperative dressing,and there will be a chance for partial or full skin graft loss. There will be a scar at the skin gra ft donor site. The wound may also be closed primarily or with locoregional skin flaps. This would require cutting the surrounding skin, borrowing surrounding tissue, and create additional scars in order to close the wound. We discussed that using a paramedian forehead flap or melolabial flap will require at least 2 surgeries, possibly more, to complete healing at the wound site and the donor site. With a forehead flap, there may be alopecia at the donor site and hair growth at the recipient site which would require shaving. There may be a need to harvest auricular cartilage, which will leave a scar and require postop dressing, possible change in ear position. There may be a need perform an i ntranasal flap for reconstruction of internal lining, such as a nasoseptal flap. This will involve cutting and rotating mucosa, may require septal splints, may require another surgery, may result in nasal obstruction. All reconstruction options have the risks of pain, bleeding, infection, scarring,numbness, contour deformities, aesthetic dissatisfaction, wound healing complications, need for further procedures. All options are likely to leave a scar(s) but our goal is to help the wound heal asbest as possible, and to do this, it may require additional procedures in the future. He will likely need forehead flap for the nasal portion of the wound, skin graft/advancement flap for the cheek portion of the defect. Plan: -Patient chooses to proceed with surgery: reconstruction left nasal/cheek defect, wound debridement, adjacent tissue transfer, possible skin graft, possible forehead flap Ritesh Mensah MD Mixed Animal Veterinarian Facial Plastic and Reconstructive Surgery Otolaryngology- Head and Neck Surgery documented in this encounter Plan of Treatment Upcoming Encounters Date Type Department Care Team (Late st Contact Info) Description 10/16/2024 1:30 PM LINE CONTROLLER Office Visit [facility] - ENT [facility] [facility], [place] [address] Ritesh Mensah MD [facility] DEPT [place] [address] documented as of this encounter Visit Diagnoses Diagnosis Basal cell carcinoma of nose- Primary Basal cell carcinoma of skin of other and unspecified parts of face documented in this encounter Care Teams Deicer Repairer Pneumatic Relationship Specialty Start Date End Date None, Physician [address] [place] [address] PCP - General 04/10/24 documented as of this encounter
--- OUTSIDE RECORDS SUMMARY | 2024-09-24 06:05 | XMS_ITS | Encounter Summary ---
Author Organization [facility] Address [address] [facility] [place] [address] Care Team Providers Care Tail Dogger Name Role Phone None, Physician Primary Care Provider Unavailabl e Reason for Visit * Reason Onset Date Comments Surgery Rescheduled 05/09/2024 Encounter Details Date Type Department Care Team (Late Contact Info) Description 05/09/2024 Telephone [facility] - ENT [facility] [place] [phone] [place], September Surgery Rescheduled Social History Tobacco Use Types Packs/Day Years Used Date Smoking Tobacco: Never Assessed Sex and Gender Information Value Date Recorded Sex Assigned at Not on file Gender Identity Not on file Sexual Orientation Not on file documented as of this encounter Plan of Treatment Upcoming Encounters Date Type Department Care Team (Late st Contact Info) Description 10/16/2024 1:30 PM AERIAL APPLICATOR PILOT Office Visit [facility] - ENT [facility] [place] [phone] Ritesh Mensah MD [address] [place] [address] [place] [address] documented as of this encounter Visit Diagnoses Not on filedocumented in this encounter Care Teams Tail Dogger Relationship Specialty Start Date End Date None, Physician [address] [place] [address] PCP - General 04/10/24 documented as of this encounter
--- OUTSIDE RECORDS SUMMARY | 2024-09-24 06:05 | XMS_ITS | Encounter Summary ---
Author Organization [facility] Address [address] [facility] [place] [address] Care Team Providers Care Retail Event Coordinator Name Role Phone None, Physician Primary Care Provider Unavailabl e Encounter Details Date Type Department Care Team (Latest Contact Info) Description 05/04/2024 Travel Social History Tobacco Use Types Packs/Day Years Used Date Smoking Tobacco: Never Assessed Sex and Gender Information Value Date Recorded Sex Assigned at Not on file Gender Identity Not on file Sexual Orientation Not on file documented as of this encounter Plan of Treatment Upcoming Encounters Date Type Department Care Team (Late st Contact Info) Description 10/16/2024 1:30 PM HOMEMAKING REHABILITATION CONSULTANT Office Visit [facility] - ENT [address] [facility], [place] [phone] Ritesh Mensah MD [facility] [place] [address] documented as of this encounter Visit Diagnoses Not on filedocumented in this encounter Care Teams Retail Event Coordinator Relationship Specialty Start Date End Date None, Physician [address] [place] [address] PCP - General 04/10/24 documented as of this encounter
--- OUTSIDE RECORDS SUMMARY | 2024-09-24 06:05 | XMS_ITS | Encounter Summary ---
Author Organization [facility] Address [address] [facility] [place] [address] Care Team Providers Care Sorting And Folding Supervisor Name Role Phone None, Physician Primary Care Provider Unavailabl e Encounter Details Date Type Department Care Team (Latest Contact Info) Description 04/25/2024 Travel Social History Tobacco Use Types Packs/Day Years Used Date Smoking Tobacco: Never Assessed Sex and Gender Information Value Date Recorded Sex Assigned at Not on file Gender Identity Not on file Sexual Orientation Not on file documented as of this encounter Plan of Treatment Upcoming Encounters Date Type Department Care Team (Late st Contact Info) Description 10/16/2024 1:30 PM GUARD SERGEANT Office Visit [facility] - ENT [address] [facility], [place] [id number] Ritesh Mensah MD [facility] [place] [address] documented as of this encounter Visit Diagnoses Not on filedocumented in this encounter Care Teams Sorting And Folding Supervisor Relationship Specialty Start Date End Date None, Physician [address] [place] [address] PCP - General 04/10/24 documented as of this encounter
--- OUTSIDE RECORDS SUMMARY | 2024-09-24 06:05 | XMS_ITS | Encounter Summary ---
Author Organization [facility] Care Team Providers Care Channel Sales Director Name Role Phone Provider, Unknown Primary Care Provider Unavaila ble Rosas Live MD Unavailable [phone] Encounter Details Date Type Department Care Team (Latest Contact Info) Description 06/17/2023 Travel Social History Tobacco Use Types Packs/Day Years Used Date Smoking Tobacco: Every Day Cigarettes 1.5 49 Smokeless Tobacco: Never Alcohol Use Standard Drinks/Week Comments Never 0 (1 standard drink = 0.6 oz pur e alcohol) Sex and Gender Information Value Date Recorded Sex Assigned at Not on file Legal Sex Male 8:53 AM CDT Gender Identity Not on file Sexual Orientation Not on file COVID-19 Exposure Response Date Recorded In the last 10 days, have yo u been in contact with someone who was confirmed or suspected to have Coronavirus/COVID-19? No / Unsure 06/17/2023 8:52 AM CDT documented as of this encounter Plan of Treatment Not on file documented as of this encounter Visit Diagnoses Not on filedocumented in this encounter Care Teams Channel Sales Director Relationship Specialty Start Date End Date Provider, Unknown UNKNOWN PCP - General 06/17/23 Rosas Live MD [address] [place] [address] Consulting Physician Urology 06/17/23 documented as of this encounter
--- OUTSIDE RECORDS SUMMARY | 2024-09-24 06:05 | XMS_ITS | Encounter Summary ---
Author Organization [facility] Address [address] [place] [address] Care Team Providers Care Sail Repairer Name Role Phone None, Physician Primary Care Provider Unavailabl e Reason for Visit * Auth/Cert (Routine) Specialty Diagnoses / Procedures Referred By Contac t Referred To Contact Diagnoses Basal cell carcinoma (BCC) of lateral side wall of nose Basal cell carcinoma (BCC) of lateral side wall of nose Procedures NM RECONSTR NOSE RHINOPLASTY Referral ID Status Reason Start Date Expiration Date Visits Re quested Visits Authorized [id number] 1 1 Encounter Details Date Type Department Care Team (Late st Contact Info) Description 05/22/2024 4:39 PM CDT Anesthesia Event [facility] [address] [place] [phone] Nohelia Chatman, DO [address] [place] [address] Amber Negrete, BREEDING MANAGER-[facility] [address] [place] [address] Anesthesia Record Procedure Summary Procedure Name Responsible Anesthesiologist Anesthesia Start Time Anesthesia Stop Time Left partial rhinectomy (Left) Nohelia Chatman DO 05/22/24 1639 05/22/24 1823 Events Date Time Event Comment 05/22/2024 1607 1639 An Start 1639 Pt In Room 1639 An Start Data 1645 PT Reassessment 1648 Induction 1650 An Intubation 1651 Anes Ready 1654 Handoff 1704 Time Out Anesthesia part icipated in timeout at the time documented in the record by nursing 1705 Proc Start 1807 Proc Stop 1808 An Emergence 181 Extubation Emergence uneve ntful. Awake, spontaneous respirations. Adequate muscle strength demonstrated. Adequate tidal volume. Oropharynx suctioned. Extubated smoothly. 181 ANPTO2 181 an stop data 181 Pt out of Room Transport fro m OR to PACU, continuously present and monitoring. 1823 An Stop Post Anesthetic : transfer of care report elements to appropriate post-anesthesia recovery environment completed in accordance with procedure. NIBP: 138/76 Pulse: 89 Resp: 12 SpO2: 96 Meds Name Total ceFAZolin 2,000 mg IVPB 2 g fentaNYL 100 mcg/2ml injection 100 mcg lidocaine PF 2% 100 mg propofol 200mg/20mL injection 140 mg rocuronium 50 mg/5 mL injection 100 mg phenylephrine 100 mcg/mL syringe 700 mcg dexamethasone 10 mg/ml PF injection 4 mg ondansetron 4mg/2mL injection 4 mg sugammadex 200 mg/2mL injection 200 mg LR (Lactated ringers) 700 mL * Agents Name Insp. N2O Exp. Sevoflurane Exp. Desflurane Exp. N2O O2 Flow - Auxiliary O2 Air Insp. Sevoflurane Insp. Desflurane * Blood No blood administrations on file. [...] 0904 by Ramy William RN ETT Date: 05/22/24; Time : 1650; Placed By: Irma Nelson MD; Vent: easy mask, 2-person mask; Induction: Standard IV; Blade Type: Mati; Blade Size: 4; Laryngoscopy View: Grade 1 (full cords); Intubation Adjuncts: Stylet, Cricoid Pressure; Tube: Endotracheal Tube; Placement: Oral; Tube Type: Cuffed-inflated; Tube Size(mm): 8 MM; Depth of Insertion: 24 CM; Measured From: teeth; Attempts: 1; Cuff Infated: Air; Verified By: Direct visualization, Bilateral breath sounds, Chest Auscultation, CO2 Monitor 05/22/241649 by Irma Nelson MD 05/22/241811 by Irma Nelson MD documented in this encounter Social History Tobacco [...] and heating? Not hard at all 05/23/2024 [facility] [place] [facility] - Occupational Stress [...] place to sleep or slept in a group home (including now)? No 05/23/2024 Sex and Gender Information Value Date Recorded Sex Assigned at Not on file Gender Identity Not on file Sexual Orientation Not on file documented as of this encounter Progress Notes * Nohelia Chatman DO - 05/22/2024 7:08 PM CDT ANESTHESIA POSTOP EVALUATION NOTE Procedure: Left partial rhinectomy (Left) Andrey Giron is a 64 year old male No data found. Anesthesia Type: general ETT Pre-op Diagnosis Codes: * Basal cell carcinoma (BCC) of lateral side wall of nose [C44.311] Mental Status: awake Neuro Status: No numbness, tingling or visual disturbances Respiratory Function: natural Cardiac Function: stable Postop Pain: acceptable to the patient Postop Hydration: adequate Postop Nausea: none Assessment: no apparent anesthetic complications, patient tolerated procedure well and no evidence of recall NOTABLE EVENTS: No notable events documented. * Jimmy Angelo MD - 05/22/2024 2:32 PM CDT ANESTHESIA PREOPERATIVE EVALUATION NOTE Procedure: Left partial rhinectomy (Left) Vitals: No data found. LMP: No LMP for male patient. OB Status: unknown ANESTHESIA PRE-EVALUATION NOTE History of Present Illness: Andrey Giron is a 63 year old male presenting via telephone encounter for pre-operative evaluation and optimization prior to undergoing a bronchoscopy with robot assist, bronchoalveolar lavage, transbronchial biopsies, and brushings on 05/[address] Mccormack for abnormal chest CT - performed last week. Now presents for partial rhinectomy. PMHx is otherwise significant for ESRD on HD (MWF) via right arm AVF & tunneled IJ catheter, HTN, COPD, obesity, hepatitis C and anemia (s/p blood transfusion spring 2023). Denies prior complications from anesthesia. Functional capacity: > or equal to 4 METs with no cardiopulmonary symptoms Last HD yesterday. The patient is a current smoker (cigarrettes 1/2 ppd). The patient was instructed to abstain from smoking on day of procedure. Physical Exam: Orientation X3 Airway/Mallampati Score: II Mouth Opening Distance: 3 fingerwidths Neck ROM: full TM Distance: < 3 FB Teeth: poor dentition Heart: normal - S1 S2 Lungs: clear to ausculation bilaterally Review of Systems: History of anesthetic complications: No Sleep Apnea Risk: No Malignant Hyperthermia: No GERD: No Poor Exercise Tolerance: No Recent Chest Pain: No Shortness of Breath: No AICD/Pacemaker: No Renal Disease: Yes (ESRD), patient on regularly scheduled dialysis Diagnostic Tests: Lab(s) reviewed: Yes (04/12/24: Na 139, K 4.3, Glucose 93 - Hct 35, Hgb 11.6). Other Findings: CT Chest 04/17/24: 1. Spiculated [...] DBP >110) then contact Dr. Adame or [facility] - if patient taking MARIA-I or ARB [...] may need TTE contact Dr. Adame or [facility] 4. History of Cerebrovascular Disease? Prior TIA or stroke no If yes then paste summary of most any relevant neurovascular imaging or carotid duplex results under Other Additional Findings/Comments section above: Carotid bruit? unknown if yes AND h/o CVA/ TIA then may need carotid duplex - contact Dr. Adame [facility] 5. Insulin-Dependent Diabetes? no No results for input(s): HGBA1C , A1C , [id number] , EAG inthe last 26848 hours. Insulin pump? no if yes then patient was instructed to continue at 75% basal rate on DOS, AND 1164 placed? no 6. Preoperative Creatinine > 2 mg/dl? yes No results for input(s): SODIUM , POTASSIUM , CHLORIDE , CO2 , BUN , CREATININE , EGFR , EGFRAFRIC , GLUCOSE , CALCIUM in the last 06456 hours. No results for input(s): WBC , HEMOGLOBIN , HGB , HEMATOCRIT , HCT , PLATELET , PLTCOUNT inthe last 94292 hours. Total RCRI / MACE score 1 Point [...] PM and Within 6 months for AICD [place] Information needed (landscape supervisor, mode, indication for CIED, battery life, magnet function): Call [phone] with all patients with CIEDs: IV. Anticoagulants: Are they receiving antiplatelet/anticoagulant medications (besides ASA)? What is the periop plan? NO No results for input(s): APT , INR , PTT in the last 01425 hours.6 V. Previous blood transfusion? yes If [...] Age>50, Neck circumference>18 If yes then: update Epic problem list to include: BRENDA If patient [...] being admitted then order: IP Consult to Martial Arts Instructor (comment regarding consult for undiagnosed BRENDA) - Follow steps 2 and 3 above If pt has STOP-BANG >=5 with undiagnosed BRENDA and is outpatient and interested in setting up a sleep study then: - send Epic message to FAYE and cc Dr. Adame Patient was educated about the potential implications of BRENDA on their perioperative course and recommendations for follow-up care were addressed - including inpatient consult(s) as above? no VII. Known or suspected difficult airway no and complete previous airway management section above If yes then: update Epic problem list to include: difficult airway and [...] a 63 year old male presenting for Left partial rhinectomy (Left). They have an ASA score of 3 and a RCRI / MACE score of 1 Point >= 0.9% Follow up results - have ALL the above ordered labs and vital signs been reviewed? YES - with the following notable abnormalities Hgb 11.6 They ARE OPTIMIZED - PAT EVALUATION COMPLETE Albino Bah MD 05/22/2024 2:32 PM for this procedure. Vital signs updated in [...] liquids within 2 hours and No solids since midnight Anesthesia Plan: general ETT Planned Induction: intravenous Planned Postop Destination: PACU Anesthetic plan was discussed with: patient The patient's procedural Anesthetic Plan was discussed with the resident. Overall additional findings/comments: I have reviewed the chart. I have interviewed (as appropriate) and examined the patient. I agree with the documentation and have discussed the anesthesia plan w/ the Resident, NUT SHELLER MACHINE OPERATOR, or AA per above. The patient agreed (if able) with the plan and accepted the benefits and risk as listed below. I attest to documenting, updating or reviewing the patient's medications using all immediate resources on the date of the encounter. This list included ALL known prescriptions, [id number], herbals, and vitamin/mineral/dietary (nutritional) supplements AND contained the medications' name, dosages, frequency, and route of administration. Patient expressed (if able) understanding of potential risks of anesthesia including but not limited to corneal abrasion, visual impairment or visual loss, mouth injury, dental damage, sore throat, hoarseness, esophageal injury, awareness under anesthesia, nerve injury due to positioning, aspiration, pneumonia, stroke, cardiac event, adverse drug reactions, and . . BMI, Height, Weight Tobacco History Estimated body mass index is 32.14 kg/m?? as calculated from the following: Height as of 05/18/24: 1.727 m (5' 8 ). Weight as of 05/18/24: 95.9 kg (211 lb 6.4 oz). Social History Tobacco Use Smoking Status Every Day Packs/day: .5 Types: Cigarettes Smokeless Tobacco Never Alcohol History Drug History Social History Substance and Sexual Activity Alcohol Use Not Currently Social History Substance and Sexual Activity Drug Use Never Outpatient Medications: Inpatient Medications: No outpatient medications have been marked as taking for the 05/22/24 encounter (Hospital Encounter). No current facility-administered medications for this encounter. Allergies: No Known Allergies Relevant Problems Problem List: There are no problems to display for this patient. Medical History: Past Medical History: Diagnosis Date Basal cell carcinoma ESRD on dialysis (HCC) M/W/F History of blood transfusion Surgical History: Past Surgical History: Procedure Laterality Date INSERTION DIALYSIS CATHETER Right tunneled IJ VASCULAR PROCEDURE/SURGERY 04/12/2024 CREATION ARTERIOVENOUS FISTULA BURNING SUPERVISOR Status: No LMP for male patient. unknown OB History No obstetric history on file. Covid Vaccine: Lab Results: Recent Labs Base Name 05/07/24 0925 [id number] No results found for requested labs within last 120 days. No results found for requested labs within last 120 days. documented in this encounter Procedure Notes * Irma Nelson MD - 05/22/2024 5:03 PM CDTAssociated Order(s): ETT Placement Endotracheal Tube Placement: Patient Location: OR. Intubation Event Date/Time: 05/22/2024 4:50 PM Procedure: intubation (85249) Procedure Section: Sedation: under general anesthesia. Indications for Airway Management: anesthesia Induction: standard IV Patient Position: supine and sniffing Mask Ventilation: easy and difficult [...] monitor and chest auscultation Tube secured with: adhesive tape. Dentition unchanged? Yes Difficult Airway? No. Procedure Start Time: 05/22/2024 4:50 PM. Staff Section Anesthesia Provider: Irma Nelson MD, Performed the procedure Provider #1: Jimmy Angelo MD. documented in this encounter Miscellaneous Notes * Anesthesia Transfer of Care - Ulices Joseph Anes Asst - 05/22/2024 6:25 PM CDT ANESTHESIA TRANSFER OF CARE NOTE Today's Date: 05/22/2024 Date of : 1960 Patient: Andrey Giron Procedure(s): Left partial rhinectomy Surgeon(s): Primary: Matteo Menezes MD Resident - Assisting: Irma Fung MD; Jaswinder Romero MD Preop Diagnosis: Pre-op Diagnois: * Basal cell carcinoma (BCC) of lateral side wall of nose [C44.311] Pre-op Meds (From admission, onward) Start Stop Status Route Frequency Ordered 05/22/24 1545 0.9% NaCl infusion -- Dispensed IV CONTINUOUS 05/22/24 1512 05/22/24 1802 0.9% NaCl injection 1-10 mL -- Dispensed IK PRN 05/22/24 18005/22/24 1800 acetaminophen (Tylenol) tablet 650 mg Note to Pharmacy: OP sig: Take 1 (one) tablet by mouth every 8 hours as needed -- Verified PO EVERY 6 HOURS 05/22/24 1659 05/22/24 1802 albuterol-ipratropium (Duo-Neb) nebulizer solution 3 mL -- Verified IN POST-OP MULTIPLE 05/22/24 1802 05/22/24 1802 droPERidol (Inapsine) injection 0.625 mg -- Verified IV ONCE PRN 05/22/24 18005/22/24 1802 fentaNYL (PF) (Sublimaze) injection 25 mcg -- Verified IV EVERY 10 MIN PRN 05/22/24 1802 05/22/24 1802 fentaNYL (PF) (Sublimaze) injection 50 mcg -- Verified IV EVERY 10 MIN PRN 05/22/24 18005/23/24 0900 finasteride (Proscar) tablet 5 mg Note to Pharmacy: OP sig: Take 1 (one) tablet by mouth once daily -- Dispensed PO DAILY 05/22/24165805/22/24 180 hydrALAZINE (Apresoline) injection 5 mg -- Verified IV POST-OP MULTIPLE 05/22/24 18005/22/24 180 HYDROmorphone (Dilaudid) injection 0.5 mg -- Verified IV EVERY 10 MIN PRN 05/22/24 18005/22/24 180 labetalol (Normodyne; Trandate) injection 5 mg -- Verified IV POST-OP MULTIPLE 05/22/24 18005/22/24 181 lactated ringers infusion -- Dispensed IV CONTINUOUS 05/22/24180105/22/24 180 metoclopramide (Reglan) injection 10 mg -- Verified IV ONCE PRN 05/22/24 18005/22/24 180 naloxone (Narcan) injection 0.04 mg -- Verified IV POST-OP MULTIPLE 05/22/24180105/22/24 165 oxyCODONE (immediate release) (Roxicodone) tablet 10 mg See Hyperspace for full Linked Orders Report. -- Verified PO EVERY 6 HOURS PRN 05/22/24165805/22/24 165 oxyCODONE (immediate release) (Roxicodone) tablet 5 mg See Hyperspace for full Linked Orders Report. -- Verified PO EVERY 4 HOURS PRN 05/22/24165805/23/24 09 polyethylene glycol 3350 (Miralax) packet 17 g Note to Pharmacy: OP sig: Take by mouth once daily Patient not taking: Reported on 05/22/2024 -- Verified PO DAILY 05/22/24165805/22/24 180 prochlorperazine (Compazine) injection 10 mg -- Verified IV ONCE PRN 05/22/24180105/22/24 1800 sevelamer carbonate (Renvela) tablet 800 mg -- Dispensed PO 3 TIMES DAILY WITH MEALS 05/22/24165805/23/24 09 tamsulosin (Flomax) capsule 0.4 mg Note to Pharmacy: OP sig: Take 1 (one) capsule by mouth once daily -- Verified PO DAILY 09/03/24 1659 Post-op Diagnosis: * Basal cell carcinoma (BCC) of lateral side wall of nose [C44.311] . No Known Allergies Vitals: Patient Vitals for the past 3 hrs: Temp 05/22/24 1820 97.2 ??F (36.2 ??C) Lines, Drains, and Airways Type Details Placement Removal Nephrostomy Tube Outside Facility; 05/18/24; 1320; Back, Left 05/18/24 1320 by Aicha Major RN Nephrostomy Tube Outside Facility; 05/18/24; 1321; Back, Right 05/18/24 1321 by Aicha Major RN Peripheral IV Date: 05/22/24; Time: 1502; Orientation: Posterior, Right; Location: Hand; Gauge: 20 G 05/22/24 150 by Magdalena Marley RN ETT Date: 05/22/24; Time: 165; Placed By: Irma Nelson MD; Vent: easy mask, 2-person mask; Induction: Standard IV; Blade Type: Mati; Blade Size: 4; Laryngoscopy View: Grade 1 (full cords);Intubation Adjuncts: Stylet, Cricoid Pressure; Tube: Endotracheal Tube; Placement: Oral; Tube Type:Cuffed-inflated; Tube Size(mm): 8 MM; Depth of Insertion: 24 CM; Measured From: teeth; Attempts: 1;Cuff Infated: Air; Verified By: Direct visualization, Bilateral breath sounds, Chest Auscultation, CO2 Monitor 05/22/24 165 by Irma Nelson MD 05/22/24 181 by Irma Nelson MD Intraprocedure I/O Totals None Patient Transfer Location: PACU Transport Airway: spontaneous respirations and supplemental O2 Transport Monitoring: continuous pulse oximetry and heart rate Complications: None Comments: Post Anesthetic: transfer of care report elements to appropriate post- anesthesia recoveryenvironment completed in accordance with procedure. NIBP: 138/76 Pulse: 89 Resp: 12 SpO2: 96 Handoff Given? Yes Checklist or Protocol - [...] report from the receiving PACUteam. Anne Marie Nevarez Asst documented in this encounter Plan of Treatment Upcoming Encounters Date Type Department Care Team (Late st Contact Info) Description 10/16/2024 1:30 PM ADMINISTRATIVE SECRETARY Office Visit [facility]NT [facility] [facility], [place] [address] Ritesh Mensah MD [address] [place] [address] [place] [address] documented as of this encounter Procedures Procedure Name Priority Date/Time Associated Diagnosis Comments ENDOTRACHEAL TUBE NOTE Routine 05/22/2024 5:03 PM CDT documented in this encounter Results * ETT LINE PERFORMABLE (05/22/2024 5:03 PM CDT) Narrative Irma Nelson MD - 05/22/2024 5:03 PM CDT Irma Nelson MD ? 05/22/2024 ??5:04 PM Endotracheal Tube Placement: ? Patient Location: OR. Intubation Event Date/Time: ??05/22/2024 4:50 PM Procedure: intubation ([id number]) Procedure Section: ?? Sedation: under general anesthesia. [...] Jimmy Angelo MD GENERAL ANESTHESIA O RDERABLES documented in this encounter Visit Diagnoses Not on filedocumented in this encounter Administered Medications Inactive Administered Medications - up to 3 most recent administrations Medication Order MAR Action Action Date Dose Rate Site ceFAZolin (Ancef) 2,000 mg in 50 mL IVPB Intravenous, PRN, Starting on Tue05/22/24 at 1657, Until Tue05/22/24 at 1823, Anesthesia Intra-op $ Given 05/22/2024 4:57 PM CDT 2 g dexAMETHasone Sod Phosphate PF injection Intravenous, PRN, Starting on Tue05/22/24 at 1703, Until Tue05/22/24 at 1823, Anesthesia Intra-op $ Given 05/22/2024 5:03 PM CDT 4 mg fentaNYL (PF) (Sublimaze) injection Intravenous, PRN, Starting on Tue05/22/24 at 1648, Until Tue05/22/24 at 1823, Anesthesia Intra-op $ Given 05/22/2024 4:48 PM CDT 100 mcg lactated ringers infusion Intravenous, CONTINUOUS PRN, Starting on Tue05/22/24 at 1630, Until Tue05/22/24 at 1823, Anesthesia Intra-op $ New Bag/Syringe 05/22/2024 4:30 PM CDT lidocaine HCl (PF) (Xylocaine MPF) 2 % injection Intravenous, PRN, Starting on Tue05/22/24 at 1648, Until Tue05/22/24 at 1823, Anesthesia Intra-op $ Given 05/22/2024 4:48 PM CDT 100 mg ondansetron (Zofran) injection Intravenous, PRN, Starting on Tue05/22/24 at 1756, Until Tue05/22/24 at 1823, Anesthesia Intra-op $ Given 05/22/2024 5:56 PM CDT 4 mg phenylephrine 100 mcg/mL injection Intravenous, PRN, Starting on Tue05/22/24 at 1712, Until Tue05/22/24 at 1823, Anesthesia Intra-op $ Given 05/22/2024 5:51 PM CDT 100 mcg $ Given 05/22/2024 5:32 PM CDT 100 mcg $ Given 05/22/2024 5:19 PM CDT 200 mcg propofol (Diprivan) injection Intravenous, PRN, Starting on Tue05/22/24 at 1649, Until Tue05/22/24 at 1823, Anesthesia Intra-op $ Given 05/22/2024 4:49 PM CDT 140 mg rocuronium (Zemuron) injection Intravenous, PRN, Starting on Tue05/22/24 at 1649, Until Tue05/22/24 at 1823, Anesthesia Intra-op $ Given 05/22/2024 5:54 PM CDT 20 mg $ Given 05/22/2024 5:23 PM CDT 30 mg $ Given 05/22/2024 4:49 PM CDT 50 mg sugammadex (Bridion) injection Intravenous, PRN, Starting on Tue05/22/24 at 1809, Until Tue05/22/24 at 1823, Anesthesia Intra-op $ Given 05/22/2024 6:09 PM CDT 200 mg documented in this encounter Care Teams Sail Repairer Relationship Specialty Start Date End Date None, Physician [address] [place] [address] PCP - General 04/10/24 documented as of this encounter
--- OUTSIDE RECORDS SUMMARY | 2024-09-24 06:05 | XMS_ITS | Clinical Summary ---
Author Organization [facility] Address [address] [place] [address] Phone Care Team Providers Care Venture Capitalist Name Role Phone Provider, Unknown Primary Care Provider Unavaila Rosas Baltazar MD Unavailable [phone] Allergies No known active allergies Medications furosemide (LASIX) 40 MG Tablet Take 60 mg by mouth daily. 3 Active finasteride (PROSCAR) 5 MG Tablet Take 5 mg by mouth daily. 3 Active ergocalciferol (VITAMIN D) 29622 UNIT Capsule Take 1.25 mg by mouth once a week. ON Fridays 3 Active tamsulosin (FLOMAX) 0.4 MG Capsule Take 0.4 mg by mouth every morning. 3 Active potassium chloride SA (KLORCON M) 20 MEQ Tablet Controlled Release Take 20 mEq by mouth every other day. 3 Active cephALEXin (KEFLEX) 500 MG Capsule 3 Active oxybutynin (DITROPAN-XL) 10 MG TABLET SR 24 HR Take 1 Tablet by mouth daily. 30 Tablet 3 3 Active acetaminophen (TYLENOL) 500 MG Tablet Take by mouth every 8 hours as needed. Active Albuterol Sulfate, sensor, 108 (90 Base) MCG/ACT AEROSOL POWDER, BREATH ACTIVATED take 2 Puffs by inhalation 4 times daily as needed. Active HYDROcodone-Acet aminophen 5-300 MG Tablet Take 1 Tablet by mouth every 8 hours as needed. Active ondansetron (ZOFRAN-ODT) 4 MG TABLET DISPERSIBLE Take 4 mg by mouth every 6 hours as needed. Active Active Problems No known active problems Family History Medical History Relation Name Comments Alzheimer's Disease Father Diabetes Father Hypertension Mother Stroke Mother Relation Name Status Comments Father Mother Social History Tobacco Use Types Packs/Day Years Used Date Smoking Tobacco: Every Day Cigarettes 1 49 Smokeless Tobacco: Never Tobacco Cessation:Ready to Q uit: No; Counseling Given: Yes Alcohol Use Standard Drinks/Week Comments Never 0 [...] Sign Reading Time Taken Comments Blood Pressure 110/72 01/10/2024 9:16 AM CDT Pulse 97 01/10/2024 9:16 AM CDT Temperature 36.6 ??C (97.8 ??F) 01/10/2024 9:16 AM CD T Respiratory Rate 19 01/10/2024 9:16 AM CDT Oxygen Saturation 98% 01/10/2024 9:16 AM CDT Inhaled Oxygen Concentration - - Weight 100.7 kg (222 lb) 01/10/2024 9:16 AM CDT Height 172.7 cm (5' 8 ) 01/10/2024 9:16 AM CDT Body Mass Index 33.75 01/10/2024 9:16 AM CDT Plan of Treatment Health Maintenance Due Date Last Done Comments Hepatitis C Virus (HCV) Screening 1960 TdaP Immunization 1959 Pneumococcal Immunization (5 0+ years) (1 of 2 - PCV) 1978 Colonoscopy 2004 Colorectal Cancer Screening 2004 Cologuard 2009 Immunochemical Fecal Occult Blood 2009 Lung Cancer Screening 2009 Zoster Immunization (1 of 2) 2009 PSA Discussion 2014 Influenza Immunization (#1) 2024 SARS-COV-2 Immunization ( - season) 2024 AAA Screening Ultrasound 2024 Respiratory Syncytial Virus (RSV) Immunization (Adult) (1 - 1-dose 75+ series) 2034 Hepatitis B Immunization Aged Out No longer eligible based on patient's age to complete this topic Meningococcal Immunization (ACWY) Aged Out No longer eligible based on patient's age to complete this topic Rotavirus Immunization Aged Out No lo nger eligible based on patient's age to complete this topic Insurance MEDICAID [facility] PL[facility] Care Teams Venture Capitalist Relationship Specialty Start Date End Date Provider, Unknown UNKNOWN PCP - General 06/17/23 Rosas Live MD [address] [address] Consulting Physician Urology 06/17/23
--- OUTSIDE RECORDS SUMMARY | 2024-09-24 06:05 | XMS_ITS | Encounter Summary ---
Author Organization [facility] Care Team Providers Care Construction Code Administrator Name Role Phone Provider, Unknown Primary Care Provider Unavaila Rosas Baltazar MD Unavailable [phone] Encounter Details Date Type Department Care Team (Latest Contact Info) Description 07/15/2023 Travel Social History Tobacco Use Types Packs/Day [...] suspected to have Coronavirus/COVID-19? No / Unsure 07/15/2023 12:17 PM CDT documented as of this encounter Plan of Treatment Not on file documented as of this encounter Visit Diagnoses Not on filedocumented in this encounter Care Teams Construction Code Administrator Relationship Specialty Start Date End Date Provider, Unknown UNKNOWN PCP - General 06/17/23 Rosas Live MD [address] [address] Consulting Physician Urology 06/17/23 documented as of this encounter
--- OUTSIDE RECORDS SUMMARY | 2024-09-24 06:05 | XMS_ITS | Encounter Summary ---
Author Organization [facility] Address [address] [facility] [address] Care Team Providers Care Radiological Technician Name Role Phone None, Physician Primary Care Provider Unavailabl e Reason for Referral * Radiology Services (Routine) - Closed Specialty Diagnoses / Procedures Referred By Contac t Referred To Contact CT Scan Diagnoses Lung nodule Procedures CT Chest Wo Cont Super Dimension Ben Mccormack MD [address] [place] [address] 2L DIV OF PULMONARY/[place] [address] [facility] [address] [place] [address] Referral ID Status Reason Start Date Expiration Date Visits Re quested Visits Authorized [id number] Closed 04/23/2024 04/23/2025 1 1 Encounter Details Date Type Department Care Team (Late st Contact Info) Description 04/23/2024 Orders Only [facility] - Pul[facility]ology [address] [place] [address], [place] [id number] Ben Mccormack MD [address] [place] [address] 2L DIV OF PULMONARY/[place] [address] Lung nodule Social History Tobacco Use Types Packs/Day Years Used Date Smoking Tobacco: Never Assessed Sex and Gender Information Value Date Recorded Sex Assigned at Not on file Gender Identity Not on file Sexual Orientation Not on file documented as of this encounter Plan of Treatment Upcoming Encounters Date Type Department Care Team (Late st Contact Info) Description 10/16/2024 1:30 PM ICT SALES REPRESENTATIVE Office Visit [facility] - ENT [address] [facility] [place] [address] Ritesh Mensah MD [address] [facility] 2L [place] [address] documented as of this encounter Results * CT Chest Wo Cont Super Dimension [...] > Dictated by Natalio Villeda MD, (radiology transporter). I, Augie Slater MD have personally reviewed and interpreted this examination/study. > Interpreting Provider: Augie Slater MD on 05/18/2024 3:21 PM Narrative 05/18/2024 3:21 PM CDT PROCEDURE: ??CT CHEST WO CONT SUPER DIMENSION, DATE/TIME OF EXAM: ??05/18/2024 11:28 AM, LOCATION ??[facility] INDICATION: R91.1: Lung nodule ADDITIONAL CLINICAL INFORMATION: [...] DIMENSION, DATE/TIME OF EXAM:05/18/2024 11:28 AM, LOCATION [facility] INDICATION: R91.1: Lung nodule ADDITIONAL CLINICAL INFORMATION: [...] > Dictated by Natalio Villeda MD, (radiology transporter). I, Augie Slater MD have personally reviewed and interpreted this examination/study. > Interpreting Provider: Augie Slater MD on 05/18/2024 3:21 PM Ben Mccormack MD CT ORDERABLES documented in this encounter Visit Diagnoses Diagnosis Lung nodule- Primary Solitary pulmonary nodule Lung nodule- Primary Solitary pulmonary nodule Pre-op testing Preoperative examination, unspecified Abnormal chest CT Nonspecific (abnormal) findings on radiological and other examination of other intrathoracic organs documented in this encounter Care Teams Radiological Technician Relationship Specialty Start Date End Date None, Physician [address] [place] [address] PCP - General 04/10/24 documented as of this encounter
--- OUTSIDE RECORDS SUMMARY | 2024-09-24 06:05 | XMS_ITS | Encounter Summary ---
Author Organization [facility] Address [address] [place] [address] Phone Care Team Providers Care Floor Cleaner Name Role Phone Provider, Unknown Primary Care Provider Unavaila ble Rosas Live MD Unavailable [phone] Encounter Details Date Type Department Care Team (Late st Contact Info) Description 06/22/2023 Telephone [facility] [address] [place] [phone] Rosas Live MD [address] [facility], [address] [id number] Social History Tobacco Use Types Packs/Day Years [...] PM CDT documented as of this encounter Miscellaneous Notes * Telephone Encounter - King Johnston RMA - 06/22/2023 2:35 PM CDT Pt is scheduled for both * Telephone Encounter - Rosas Live MD - 06/22/2023 1:22 PM CDT Can you please make sure patient has follow-up set up for cysto and transrectal ultrasound, Not just cysto. documented in this encounter Plan of Treatment Not on file documented as of this encounter Visit Diagnoses Not on filedocumented in this encounter Care Teams Floor Cleaner Relationship Specialty Start Date End Date Provider, Unknown UNKNOWN PCP - General 06/17/23 Rosas Live MD [address] [address] Consulting Physician Urology 06/17/23 documented as of this encounter
--- OUTSIDE RECORDS SUMMARY | 2024-09-24 06:05 | XMS_ITS | Encounter Summary ---
Author Organization [facility] Address [address] [place] [address] Phone Care Team Providers Care Graduate Student Name Role Phone Provider, Unknown Primary Care Provider Unavaila Rosas Baltazar MD Unavailable [phone] Encounter Details Date Type Department Care Team (Late st Contact Info) Description 07/13/2023 Telephone [facility] [address] [place] [phone] Rosas Cuadra MD [address] [facility], [address] [id number] Social History Tobacco Use Types Packs/Day Years [...] suspected to have Coronavirus/COVID-19? No / Unsure 07/11/2023 10:10 AM CDT documented as of this encounter Miscellaneous Notes * Telephone Encounter - King Johnston, A - 07/13/2023 1:02 PM CDT Spoke with the staff at [facility] in regards of Andrey Giron , i've been trying toget a hold of him twice but unable to reach him . I inform staff that he had agreed as discussed with dr cuadra to just have cysto, and a transrectal ultrasound done under sedation since he did not wanted to do it in office while awake and not any other interventions for his prostate. documented in this encounter Plan of Treatment Not on file documented as of this encounter Visit Diagnoses Not on filedocumented in this encounter Care Teams Graduate Student Relationship Specialty Start Date End Date Provider, Unknown UNKNOWN PCP - General 06/17/23 Rosas Cuadra MD [address] [address] Consulting Physician Urology 06/17/23 documented as of this encounter
--- OUTSIDE RECORDS SUMMARY | 2024-09-24 06:05 | XMS_ITS | Encounter Summary ---
Author Organization [facility] Address [address] [facility] [place] [address] Care Team Providers Care Residential Builder Name Role Phone Unavailable Primary Care Provider Unavailabl e Reason for Visit * Reason Onset Date Comments Appointment 02/10/2024 Encounter Details Date Type Department Care Team (Late st Contact Info) Description 02/10/2024 Telephone [facility] - Dermatology [address], [facility] [address] [place] [address] Marlena Ballard MD [address] DEPT OF DERMATOLOGY [place], [place] [id number] Appointment Social History Tobacco Use Types Packs/Day Years Used Date Smoking Tobacco: Never Assessed Sex and Gender Information Value Date Recorded Sex Assigned at Not on file Gender Identity Not on file Sexual Orientation Not on file documented as of this encounter Miscellaneous Notes * Telephone Encounter - Karthik Snider - 02/10/2024 10:05 AM CDT Spoke to patient's nurse at the facility where patient lives to schedule consultation with Dr. 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 Nurse took message to give to Rocio who coordinates patient's appointments/transportation to have Rocio call back to schedule. documented in this encounter Plan of Treatment Upcoming Encounters Date Type Department Care Team (Late st Contact Info) Description 10/16/2024 1:30 PM TRAFFIC REPORTER Office Visit [facility] - ENT [address] [facility], [facility] [place] [address] Ritesh Mensah MD [address] [place] [address] [place] [address] documented as of this encounter Visit Diagnoses Not on filedocumented in this encounter
--- OUTSIDE RECORDS SUMMARY | 2024-09-24 06:05 | XMS_ITS | Encounter Summary ---
Author Organization [facility] Address [address] [facility] [place] [address] Phone Care Team Providers Care Commercial Analyst Name Role Phone Provider, Unknown Primary Care Provider Unavaila ble Rosas Live MD Unavailable [phone] Reason for Referral * Radiology Services (Routine) - Closed Specialty Diagnoses / Procedures Referred By Grace hathaway Referred To Contact Radiology Diagnoses Preop testing Procedures EKG 12 LEAD Rosas Live MD [address] [address] Phone: tel: fax: Referral ID Status Reason Start Date Expiration Date Visits Re quested Visits Authorized [id number] Closed 07/11/2023 1 1 Reason for Visit * Radiology Services (Routine) - Closed Specialty Diagnoses / Procedures Referred By Grace hathaway Referred To Contact Radiology Diagnoses Preop testing Procedures EKG 12 LEAD Rosas Live MD #[address] [address] Phone: tel: fax: Referral ID Status Reason Start Date Expiration Date Visits Re quested Visits Authorized [id number] Closed 07/11/2023 1 1 Encounter Details Date Type Department Care Team (Latest Contact Info) Description 07/11/2023 1:45 PM CDT - 07/11/2023 11:59 PM CDT Hospital [facility] [address] [place] [address] Rosas Live MD [address] [address] Discharge Disposition: Discharged to home or Selfcare Social History Tobacco Use Types Packs/Day Years [...] AM CDT documented as of this encounter Medications at Time of Discharge acetaminophen (TYLENOL) 500 MG Tablet Take by mouth every 8 hours as needed. Albuterol Sulfate, sensor, 108 (90 Base) MCG/ACT AEROSOL POWDER, BREATH ACTIVATED take 2 Puffs by inhalation 4 times daily as needed. cephALEXin (KEFLEX) 500 MG Capsule 06/10/2023 ergocalciferol (VITAMIN D) 96665 UNIT Capsule Take 1.25 mg by mouth once a week. ON Fridays05/27/2023 finasteride (PROSCAR) 5 MG Tablet Take 5 mg by mouth daily. 06/13/2023 furosemide (LASIX) 40 MG Tablet Take 60 mg by mouth daily. 05/30/2023 HYDROcodone-Aceta minophen 5-300 MG Tablet Take 1 Tablet by mouth every 8 hours as needed. ondansetron (ZOFRAN-ODT) 4 MG TABLET DISPERSIBLE Take 4 mg by mouth every 6 hours as needed. oxybutynin (DITROPAN-XL) 10 MG TABLET SR 24 HR Take 1 Tablet by mouth daily. 30 Tablet 3 06/17/2023 potassium chloride SA (KLORCON M) 20 MEQ Tablet Controlled Release Take 20 mEq by mouth every other day. 05/27/2023 tamsulosin (FLOMAX) 0.4 MG Capsule Take 0.4 mg by mouth every morning. 05/30/2023 documented as of this encounter Plan of Treatment Not on file documented as of this encounter Procedures Procedure Name Priority Date/Time Associated Diagnosis Comments EKG 12 LEAD Routine 07/11/2023 1:47 PM CDT Preop testing documented in this encounter Results * EKG 12 LEAD (07/11/2023 1:47 PM CDT) Ventricular Rate 94 BPM EXTERNAL EKG Atrial Rate 94 BPM EXTERNAL EKG P-R Interval 138 ms EXTERNAL EKG QRS Duration 66 ms EXTERNAL EKG Q-T Duration 324 ms EXTERNAL EKG QTC CALCULATION 405 ms EXTERNAL EKG P [place] 45 degrees EXTERNAL EKG R [place] 33 degrees EXTERNAL EKG T [place] 72 degrees EXTERNAL EKG 07/11/2023 1:47 PM CDT Impressions EXTERNAL EKG - 07/14/2023 8:49 AM CDT Normal sinus rhythm Normal ECG No previous ECGs available Confirmed by Jovan Mac ([id number]) on 07/14/2023 8:49:04 AM Narrative Procedure Note Jovan Crabtree MD - 07/14/2023 IMPRESSION: Normal sinus rhythm Normal ECG No previous ECGs available Confirmed by Jovan Mac ([id number]) on 07/14/2023 8:49:04 AM Rosas Kathleen MD IMG ECG ORDERABLES Final Resul t EXTERNAL EKG documented in this encounter Visit Diagnoses Diagnosis Preop testing Preoperative examination, unspecified documented in this encounter Care Teams Commercial Analyst Relationship Specialty Start Date End Date Provider, Unknown UNKNOWN PCP - General 06/17/23 Rosas Live MD [address] [place] [address] Consulting Physician Urology 06/17/23 documented as of this encounter
--- OUTSIDE RECORDS SUMMARY | 2024-09-24 06:05 | XMS_ITS | Encounter Summary ---
Author Organization [facility] Address [address] [place] [address] Phone Care Team Providers Care Recycling Tech Name Role Phone Provider, Unknown Primary Care Provider Unavaila ble Rosas Live MD Unavailable [phone] Reason for Visit * Auth/Cert (Routine) Specialty Diagnoses / Procedures Referred By Grace hathaway Referred To Contact Diagnoses URINARY RETENTION Procedures CYSTOSCOPY FLEXIBLE INSERTION,REMOVAL,OR EXCHANGE CHILDS CATHETER TRANSANAL ULTRASOUND Rosas Live MD #[address] [address] Phone: tel: fax: Referral ID Status Reason Start Date Expiration Date Visits Re quested Visits Authorized [id number] 1 1 Encounter Details Date Type Department Care Team (Latest Contact Info) Description 07/15/2023 12:17 PM CDT - 07/15/2023 3:45 PM CDT Hospital Encounter [facility] Preop/Pacu II [address] [place] [id number] Rosas Live MD #[address] [address] Discharge Disposition: Discharged to home or Selfcare [...] PM CDT documented as of this encounter Last Filed Vital Signs Vital Sign Reading Time Taken Comments Blood Pressure 130/82 07/15/2023 3:05 PM CDT Pulse 72 07/15/2023 3:05 PM CDT Temperature 35.5 ??C (95.9 ??F) 07/15/2023 3:05 PM CD T Respiratory Rate 16 07/15/2023 3:05 PM CDT Oxygen Saturation 97% 07/15/2023 3:05 PM CDT Inhaled Oxygen Concentration - - Weight 100.9 kg (222 lb 8 oz) 07/15/2023 12:46 P M CDT Height 172.7 cm (5' 8 ) 07/15/2023 12:46 PM CDT Body Mass Index 33.83 07/15/2023 12:46 PM CDT documented in this encounter Discharge Instructions * Discharge Instructions* Houston Larson RN - 07/15/2023 2:53 PM CDT GENERAL GUIDELINES FOR MINIMIZING NAUSEA: Do not take pain medication on an empty stomach Eat small portions of foods because they are easier to digest and move through your stomach much faster. Be sure you are staying hydrated. Clear, cool beverages are recommended. Only take what you can tolerate. You might like trying clear soups, flavored gelatin, carbonated beverages, popsicles and ice cubes made of frozen drinks. Avoid the smells of cooking food, especially greasy ones, as the smells make make you nauseated. documented in this encounter Medications at Time of Discharge acetaminophen (TYLENOL) 500 MG Tablet Take by mouth every 8 hours as needed. Albuterol Sulfate, sensor, 108 (90 Base) MCG/ACT AEROSOL POWDER, BREATH ACTIVATED take 2 Puffs by inhalation 4 times daily as needed. cephALEXin (KEFLEX) 500 MG Capsule 06/10/2023 ergocalciferol (VITAMIN D) 28743 UNIT Capsule Take 1.25 mg by mouth [...] morning. 05/30/2023 documented as of this encounter Progress Notes * Rosas Live MD - 07/15/2023 3:45 PM CDT Please have pt start bactrim DS PO BID disp 20, 0 refills 10 days prior to his TURP surgery Thank you, Rosas Live R POWER CONNECTOR * Irma Arzola - 07/15/2023 3:45 PM CDT Lm for pt to call back. R POWER CONNECTOR * Irma Arzola - 07/15/2023 3:45 PM CDT Left message for pt to call back. R POWER CONNECTOR * Irma Arzola - 07/15/2023 3:45 PM CDT Left message/ mailed letter. R POWER CONNECTOR documented in this encounter H&P Notes * Rosas Live MD - 07/15/2023 2:01 PM CDT We had an extensive discussion with the patient about the risks, benefits, alternatives to surgery.This includes: Observation versus surgical intervention. We discussed risks including infection, need for additional surgery. As with all surgeries, we discussed the risk of nerve injury and positioning injuries, anethesia, cardiovascular/pulmonary/neurologic issues. Risks of bleeding, pain, infection addressed as well as injury to adjacent structures and inability to achieve desired outcome . The patient expressed understanding. Patient consents to surgery. Source Note - Rosas Live MD - 07/08/2023 10:45 AM CDT Reason for Visit: Urinary retention Assessment/Plan: This is a 63 y.o. male with urinary retention. He is requesting evaluation in the operating room. We will thus plan for cystoscopy and transrectal ultrasound in the operating room. We did discuss this is purely for surgical planning and we would not do any interventions at this time. We discussed risk of surgery which include infection, pain, bleeding, need for additional interventions.. Plan: 1. Cystoscopy, transrectal ultrasound, exchange of Childs catheter in the operating room for surgical planning Interval History: Andrey Giron is a 63 y.o. male is here today for the ongoing management of urinary retention. Was scheduled for cystoscopy and transrectal ultrasound for surgical planning however, he wants this done in the operating room as he has significant pain and discomfort with catheter removal and interventions.. The complete REVIEW OF SYSTEMS, MEDICATION LIST and DRUG ALLERGIES, PAST MEDICAL HISTORY, FAMILY MEDICAL HISTORY and SOCIAL HISTORY are documented in detail were reviewed. The patient was asked to review all abnormal responses not pertinent to today's visit with their primary care physician. Total time spent on this encounter on this date of service, including pre-visit review of separately obtained history, [id number] interaction performing medically appropriate physical exam, patientcounseling/education, interpretation of diagnostic results, care coordination and documentation was23 minutes. documented in this encounter Nursing Notes * Maria Guadalupe Gaytan RN - 07/15/2023 2:21 PM CDT WHO Safety Checklist Team Debriefing completed. Additional information discussed during debrief, inrelation to patient specific assessment, includes blood loss, glycemic control, pain management, and venous thromboembolism prophylaxis, as needed. All members of the surgical team participated in the debriefing process, and each records information as applicable in their respective areas of documen tation. documented in this encounter OR Notes * OR Surgeon - Rosas Live MD - 07/15/2023 3:45 PM CDT PHYSICIAN'S OPERATIVE NOTE Pre-Op Diagnosis: 1. Urinary retention Post-Op Diagnosis: 1. urinary retention Procedure: 1. Cystoscopy 2. Transrectal ultrasound Surgeon: Rosas Kathleen MD Art Installer: none Anesthesia: MAC Indications: This is a 63 y.o. male with Urinary retention. We plan for cystoscopy and transrectal ultrasound for surgical planning.. We had extensive discussion about risks of surgery which include and are not limited to infection, pain, bleeding, lack of efficacy, and injury to adjacent structures. We discussed more sinister complications including DVT, PE, NM, stroke, , nerve and positioning injuries. We also discussed the risk of injury to adjacent structures which includes bladder, ureter, urethra, bowel, nerves, and vessels. We discussed need for additional surgeries as well. The patient understands and consents to surgery. Findings 1. Cystoscopy shows significant trilobar hypertrophy, median lobe with obstruction, 7 cm prostatic channel 2. TRUS shows: With: 64.5, height: 49.3, length: 75.1. Total volume 124.9 cc Description of Procedure: After the patient was correctly identified and appropriately consented, the patient was taken to the operative suite and placed on the table in the supine position. Bilateral lower extremity SCD's were applied and functioning. General anesthesia was administered by the anesthesia team and IV antibiotics with cefazolin were administered. The patient was then repositioned to the supine position with all pressure points were well padded and no compression of nerves was noted. The team agreed to the safety of positioning. The patient's lower abdomen, genitals, and perineum were prepped in the usual sterile fashion. The operative team paused for a preoperative time-out, ensuring correct patient,side and procedure. The prep was allowed to dry to completion before starting the case. Sterile drapes were applied after prep had appropriately dried. a well lubricated flexible 16 [place] Islander cystoscope was introduced transurethrally. There were no urethral strictures, the prostate was severely enlarged, greater than 7 cm channel, lateral lobe hypertrophy with a median lobe. The bladder showed no tumors lesions or masses, moderate trabeculations werenoted. The scope was then withdrawn. The patient is then placed in the left lateral decubitus position. A transrectal ultrasound probe was placed transrectally. The prostate was measured as mentionedabove. Total volume was 125 cc. The probe was removed. Sponge and needle counts were correct x2. The patient was then returned to the supine position and awoken. All lines and tubes were functioning appropriately and was transferred to PACU in stable condition. Complications: None EBL: 0 mL Fluids: Per anesthesia records Drains/Tubes: 1. None Grafts/Implants: None Condition: Stable Specimen: 1. None Disposition: 1. Plan for TURP- Discussed need for staged approach Previously in the clinic. R POWER CONNECTOR documented in this encounter Miscellaneous Notes * Interdisciplinary - Houston Larson RN - 07/15/2023 3:35 PM CDT Patient given discharge instructions, patient verbalized understanding. Patient taken out via wheelchair to transportation vehicle back to facility. * Interdisciplinary - Houston Larson RN - 07/15/2023 3:28 PM CDT Patient requesting pain medication before d/c. Spoke with and orders received. * Plan of Care - Houston Larson RN - 07/15/2023 3:12 PM CDT Problem: Adult Inpatient Plan of Care Goal: Plan of Care Review Outcome: Outcome Achieved Flowsheets Taken 07/15/2023 1512 by HOUSTON Plan of Care Reviewed With: patient Today's Goal: Patient has met discharge criteria. Outcome Evaluation: Patient ready for discharge. Taken 07/15/2023 1229 by KAY Progress: progress toward functional goals as expected Does the patient need assistance with discharge and/or transitioning to the next level of care?: No, no needs anticipated Goal: Patient-Specific Goal (Individualized) Outcome: Outcome Achieved Flowsheets (Taken 07/15/2023 1512) Today's Goal: Patient has met discharge criteria. Goal: Absence of Hospital-Acquired Illness or Injury Outcome: Outcome Achieved Intervention: Prevent and Manage VTE (Venous Thromboembolism) Risk Flowsheets (Taken 07/15/2023 1229 by KAY) VTE Prevention/Management: ambulation encouraged Goal: Optimal Comfort and Wellbeing Outcome: Outcome Achieved Intervention: Provide Person-Centered Care Flowsheets (Taken 07/15/2023 1229 by KAY) Trust Relationship/Rapport: care explained choices provided Goal: Readiness for Transition of Care Outcome: Outcome Achieved Intervention: Mutually Develop Transition Plan Flowsheets (Taken 07/15/2023 1512) Readmission Within the Last 30 Days: no previous admission in last 30 days * Interdisciplinary - Houston Larson RN - 07/15/2023 3:10 PM CDT Patient back to room 416 via stretcher. Patient transferred from stretcher to bed. Vital signs stable, catheter in place, patent and draining clear, yellow urine. Coffee given to patient per request. * PatientPass Patient Instructions - Houston Larson RN - 07/15/2023 2:53 PM CDT Images from the original note were not included. Patient Education Table of Contents Indwelling Urinary Catheter Insertion, Care After To view videos and all your education online visit, [email or web address] Stream [email or web address] or scan this QR code with your smartphone. Access to this content will in one year. Indwelling Urinary Catheter Insertion, Care After This sheet gives you information about how to care for yourself after your procedure. Your health care provider may also give you more specific instructions. If you have problems or questions, contact your health care provider. What can I expect after the procedure? After the procedure, it is common to have: Slight discomfort around your urethra where the catheter enters your body. Follow these instructions at home: General instructions Keep the drainage bag at or below the level of your bladder. By doing this, your urine can only drain out instead of going back into your body. Secure the catheter tubing and drainage bag to your leg or thigh to keep it from moving. Check the catheter tubing regularly to make sure there are no kinks or blockages. Take showers daily to keep the catheter clean. Do not take a bath. Do not pull on your catheter. Disconnect the tubing and drainage bag as little as possible. Empty the drainage bag every 2?4 hours, or more often if needed. Do not let the bag get completely full. Wash your hands with soap and water before and after touching the catheter, tubing, or drainage bag. Do not let the drainage bag or catheter tubing touch the floor. Drink enough fluids to keep your urine pale yellow, or as told by your health care provider. How to remove the catheter Remove the catheter only if told by your health care provider. Follow instructions from your healthcare provider about when and how to remove the catheter. For most catheters, you will need to take the following steps: Prepare your supplies. You will need a: Syringe. This would be given to you by your health care provider. Towel. Wastebasket. Empty the drainage bag if needed. Wash your hands with soap and warm water. Remove the tape that secures the catheter to your leg or thigh. Get into a comfortable position, such as: Lying down with your head raised on pillows and your knees pointing to the ceiling. Sitting on a chair or the edge of a bed. Place the towel under you to catch any spilled urine. Put the syringe into the balloon port of the catheter. Use a firm push and twist motion to fit the syringe into the balloon port. The water from the balloon will empty into the syringe. Gently pull out the catheter once the balloon is empty. If the catheter doesn't slide easily, do not use force. Let your health care provider know that youare not able to remove the catheter. Throw the used catheter and the syringe in the wastebasket. Wipe any spilled urine or water with the towel. Wash your hands with soap and warm water. Safety Let your health care provider know if: Your bladder is full, but you are not able to urinate. You have removed the catheter, but you are not able to urinate after 8 hours. Contact a health care provider if: Your urine: Looks cloudy. Has a bad smell. Stops flowing into the drainage bag. Your catheter: Gets clogged. Starts to leak. You feel pain or pressure in the bladder area. You have back pain. Your drainage bag or tubing looks dirty. Get help right away if: You have a fever or chills. You have severe pain in your back or your lower abdomen. You have warmth, redness, swelling, or pain in the urethra area. You notice blood in your urine. Your catheter gets pulled out. Summary Wash your hands with soap and water before and after touching the catheter, tubing, or drainage bag. Do not pull on your catheter or try to remove it. Keep the drainage bag at or below the level of your bladder, but do not let the drainage bag or catheter tubing touch the floor. Get help right away if you have a fever, chills, or any other signs of infection. This information is not intended to replace advice given to you by your health care provider. Make sure you discuss any questions you have with your health care provider. Document Released: 10/15/2017 Document Revised: 11/25/2021 Document Reviewed: 08/21/2021 [employer] Patient Education ? 2021 [employer] * Plan of Care - Lottie Dorsey RN - 07/15/2023 2:34 PM CDT Patient will be discharged from PACU when criteria has been met. * Plan of Care - Kay Ely RN - 07/15/2023 12:30 PM CDT Problem: Adult Inpatient Plan of Care Goal: Plan of Care Review Outcome: Ongoing (see interventions/notes) Flowsheets (Taken 07/15/2023 122) Plan of Care Reviewed With: patient Progress: progress toward functional goals as expected Today's Goal: to go home today Does the patient need assistance with discharge and/or transitioning to the next level of care?: No, no needs anticipated Goal: Patient-Specific Goal (Individualized) Outcome: Ongoing (see interventions/notes) Flowsheets (Taken 07/15/2023 1229) Today's Goal: to go home today Goal: Absence of Hospital-Acquired Illness or Injury Outcome: Ongoing (see interventions/notes) Intervention: Prevent and Manage VTE (Venous Thromboembolism) Risk Flowsheets (Taken 07/15/2023 1229) VTE Prevention/Management: ambulation encouraged Goal: Optimal Comfort and Wellbeing Outcome: Ongoing (see interventions/notes) Intervention: Provide Person-Centered Care Flowsheets (Taken 07/15/2023 1229) Trust Relationship/Rapport: care explained choices provided Goal: Readiness for Transition of Care Outcome: Ongoing (see interventions/notes) * Interdisciplinary - Nohelia Saenz RN - 07/11/2023 11:31 AM CDT PATIENT INFORMED TO COMPLETE PREOP EKG BY 07/04/23 BETWEEN 7:30 AM - 3:00 PM. VOICED UNDERSTANDING. Patient denies testing positive for COVID in the past 90 days No current COVID symptoms No COVID test needed ?? *If you experience any signs or symptoms of illness prior to your scheduled procedure or if you can???t keep your procedural appointment, please call the doctor who is doing your procedure. * Maury - Nohelia Saenz RN - 07/11/2023 10:16 AM CDT [facility] AD[facility] TE[facility] Patient Name: Andrey Giron : 1960 CSN#: [id number] Person Educated Patient Ready to Learn Yes Teaching Method Phone The Day of Surgery: Call your physician if your physical condition changes (cold, fever, flu). Do not come to the hospital without first calling your physician. Do not eat or drink (no gum, mints, water etc.) unless instructed to do so for at least 8 hours prior to arrival to the hospital. Medications can be taken with a small sip of water. Do not drink any alcohol 24 hours prior to surgery if applicable. Do not smoke for 24 hrs prior to surgery if applicable. Bring CPAP/BIPAP if applicable. Take a shower or bath. Do not apply make-up Wear comfortable, loose fitting clothing Instruction to leave all jewelry at home including wedding/engagement rings or any body piercing jewelry. Leave all valuables at home. Children ages 17 and under must be accompanied by a parent or legal guardian in the hospital at alltimes. Follow your surgeon's instructions for arrival time. If you have questions concerning arrival time,call your surgeon's office. Detailed instructions given for arrival location and parking. Arrange for a responsible person to accompany you, drive you home and stay with you for the first 24 hours following your surgery. If you have not made these arrangements you may be at risk of your surgery being cancelled. Follow directions regarding medications to Take or Hold. It is very important to follow directions from your surgeon's office on Diabetic medication or Blood Thinners. Only 2 adults over the age of 16 will be allowed to accompany you to the [facility]. No children under theage of 16 will be allowed in the [facility] unless they are the patient. If the patient chooses to bring their children under the age of 16, an adult must accompany those children in the surgery waiting room and cannot leave them unattended. During the flu season: refer to the visitation restriction guidelines implemented during that season if applicable. Fall Prevention Teaching The Day of Surgery: ?? Your safety while you are in the hospital is very important to us. Following surgery, you might be at increased risk for falling for several reasons: -The hospital environment is unfamiliar. It???s not the same as being at home -You may be weaker than you realize. -You may be connected to lines or equipment that can cause you to trip. -You may be on medications that make you drowsy or dizzy. We know this can happen especially with pain medication and anesthesia. We want to partner with you in the hospital to make sure you are safe -Please do not feel hesitant to ask for help while in the hospital. You will - need extra help untilyou get stronger especially with walking and using the bathroom. -Pay close attention to what the doctors and nurses tell you about your risk of falling. -A fall can mean a longer hospital stay. Also, injuries from a fall can affect your health for the rest of your life. Some things the nurses may do to keep you safe are: -Have you use the call light for help whenever you get out of bed. -Wear non-skid slippers to keep you from slipping on the floors -Use a special belt that wraps around your waist so we can help steady you when you walk -Activate an alarm on your bed so we know if you are getting up in case you forget to use your calllight -Stay in the bathroom with you in case you become dizzy or light headed Patient Response: Verbalizes Understanding Patient assessed for educational sign language interpreter during the preop interview and appropriate interventions taken if applicable. 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 Formerly known as Enterobacter aerogenes, Inherently resistant to unasyn Enterobacter cloacae, Citrobacter freundii, and Klebsiella aerogenes are associated with a moderate to high likelihood of inducible AmpC Beta-Lactamase gene expression. Consider avoiding treatment with ceftriaxone or ceftazidime even if isolate tests susceptible to these agents. Treatment with ceftriaxone or ceftazidime can still be considered in uncomplicated cystitis. Culture URINE SPECIMEN COLLECTION, CLEAN CATCH / Unknown Non-Phlebotomy Collection / Unknown 07/15/2023 2:25 PM CDT 07/15/2023 2:25 PM CDT Narrative Organism Antibiotic Method Susceptibility KLEBSIELLA AEROGENES Cefepime [facility] V[facility]K IIB <=1 mcg/ml: Susceptible KLEBSIELLA AEROGENES Ceftriaxone [facility] VITEK IIB <=1 mcg/ml: Susceptible KLEBSIELLA AEROGENES Gentamicin [facility] IIB <=1 mcg/ml: Susceptible KLEBSIELLA AEROGENES Levofloxacin [facility] IIB <=0.12 mcg/ml: Susceptible KLEBSIELLA AEROGENES Meropenem [facility] IIB <=0.25 mcg/ml: Susceptible KLEBSIELLA AEROGENES Nitrofurantoin [facility] IIB 64 mcg/ml: Intermediate KLEBSIELLA AEROGENES Piperacillin/Tazobactam [facility] IIB <=4 mcg/ml: Susceptible KLEBSIELLA AEROGENES Tobramycin [facility] V[facility]K IIB <=1 mcg/ml: Susceptible KLEBSIELLA AEROGENES Trimeth/Sulfamethoxazole [facility] EK IIB <=20 mcg/ml: Susceptible us Rosas Kathleen MD MICROBIOLOGY - GENERAL ORDERAB LES Final Result [facility] [address] [place] [address], documented in this encounter Visit Diagnoses Not on filedocumented in this encounter Administered Medications Inactive Administered Medications - up to 3 most recent administrations Medication Order MAR Action Action Date Dose Rate Site acetaminophen (TYLENOL) tablet 650 mg 650 mg, Oral, ONCE, 1 dose, On Tue07/15/23 at 1600, Maximum dose of acetaminophen is 4000 mg from all sources in 24 hours. Given 07/15/2023 3:32 PM CDT 650 mg ACETAMINOPHEN 325 MG PO TABS 1 dose, Starting on Tue07/15/23 at 1530, Until Tue07/15/23 at 1532, Created by cabinet override fentaNYL (PF) (SUBLIMAZE) injection 25-50 mcg 25-50 mcg, Intravenous, EVERY 10 MIN PRN, Starting on Tue07/15/23 at 1324, Until Tue07/15/23 at 1754, Moderate pain or more severe pain if patient requests, Severe pain, 25mcg moderate pain (4-6)/ 50mcg severe pain (7-10), Every 5-15 minutes prn to maximum of 200-400 mcg., PACU (I & II) lactated ringers infusion at 20 mL/hr, Intravenous, CONTINUOUS, Starting on Tue07/15/23 at 1300, Until Tue07/15/23 at 1754, PRE-OP (SURGERY) New Bag 07/15/2023 12:51 PM CDT 20 mL/hr ondansetron (ZOFRAN) injection 4 mg 4 mg, Intravenous, EVERY 12 HOURS PRN, Starting on Tue07/15/23 at 1324, Until Tue07/15/23 at 1754, Nausea - 1st line, First Line Antiemetic, PACU (I & II) documented in this encounter Active and Recently Administered Medications Times are shown in CDT. Scheduled Medication Order 07/13/2023 07/14/2023 07/15/2023 acetaminophen (TYLENOL) tablet 650 mg (COMPLETED) 650 mg, Oral, ONCE, 1 dose, On Tue07/15/23 at 1600, Maximum dose of acetaminophen is 4000 mg from all sources in 24 hours. 1532 (Given - Provid er: Houston Larson RN) ceFAZolin (ANCEF) injection 2 g 2 g, Intravenous, ONCE, 1 dose, On Tue07/15/23 at 1300, Administer over 5 Minutes, INTRA-OP, Indications: Perioperative Pharmacoprophylaxis 1300 (Due) Continuous Medication Order 07/13/2023 07/14/2023 07/15/2023 lactated ringers infusion at 20 mL/hr, Intravenous, CONTINUOUS, Starting on Tue07/15/23 at 1300, Until Tue07/15/23 at 1754, PRE-OP (SURGERY) 1251 (New Bag - Prov ider: Kay Ely RN)1404 (Continued by Anesthesia - Provider: Good Garcia, SALES AGENT TRADING STAMPS, MANUFACTURING ENGINEER SUPERVISOR)1438 (Stopped - Provider: Lottie Dorsey, KOKI) PRN Medication Order 07/13/2023 07/14/2023 07/15/2023 fentaNYL (PF) (SUBLIMAZE) injection 25-50 mcg 25-50 mcg, Intravenous, EVERY 10 MIN PRN, Starting on Tue07/15/23 at 1324, Until Tue07/15/23 at 1754, Moderate pain or more severe pain if patient requests, Severe pain, 25mcg moderate pain (4-6)/ 50mcg severe pain (7-10), Every 5-15 minutes prn to maximum of 200-400 mcg., PACU (I & II) ondansetron (ZOFRAN) injection 4 mg 4 mg, Intravenous, EVERY 12 HOURS PRN, Starting on Tue07/15/23 at 1324, Until Tue07/15/23 at 1754, Nausea - 1st line, First Line Antiemetic, PACU (I & II) documented in this encounter Care Teams Recycling Tech Relationship Specialty Start Date End Date Provider, Unknown UNKNOWN PCP - General 06/17/23 Rosas Live MD [facility] [address] [address] Consulting Physician Urology 06/17/23 documented as of this encounter
--- OUTSIDE RECORDS SUMMARY | 2024-09-24 06:05 | XMS_ITS | Encounter Summary ---
Author Organization [facility] Care Team Providers Care Syrup Machine Laborer Name Role Phone Provider, Unknown Primary Care Provider Unavaila Rosas Baltazar MD Unavailable Encounter Details Date Type Department Care Team (Latest Contact Info) Description 07/11/2023 Travel Social History Tobacco Use Types Packs/Day [...] on filedocumented in this encounter Care Teams Syrup Machine Laborer Relationship Specialty Start Date End Date Provider, Unknown UNKNOWN PCP - General 06/17/23 Rosas Live MD #[address] [address] Consulting Physician Urology 06/17/23 documented as of this encounter
--- OUTSIDE RECORDS SUMMARY | 2024-09-24 06:05 | XMS_ITS | Encounter Summary ---
Author Organization [facility] Address [address] [place] [address] Care Team Providers Care Mixer Operator Name Role Phone None, Physician Primary Care Provider Unavailabl e Reason for Visit * Radiology Services (Routine) - Closed Specialty Diagnoses / Procedures Referred By Grace t Referred To Contact CT Scan Diagnoses Basal cell carcinoma of skin of nose Procedures CT NECK SOFT TISSUE W CONT Marlena Ballard MD [address] [place] [address] [facility] [address] [place] [address] Referral ID Status Reason Start Date Expiration Date Visits Re quested Visits Authorized [id number] Closed 04/11/2024 04/11/2025 1 1 Encounter Details Date Type Department Care Team (Latest Contact Info) Description 04/17/2024 9:30 AM CDT - 04/17/2024 11:59 PM T Hospital Encounter [facility] CAT SCAN [address] [place] [phone] Marlena Ballard MD [address] DE[place] [address] Discharge Disposition: Home or Self Care Social History Tobacco Use Types Packs/Day Years Used Date Smoking Tobacco: Never Assessed Sex and Gender Information Value Date Recorded Sex Assigned at Not on file Gender Identity Not on file Sexual Orientation Not on file documented as of this encounter Medications at Time of Discharge Medication Sig Dispensed Refills Start Date End Date diphenhydrAMINE (Benadryl) 25 mg/50 mL infusion Take 25 (twenty five) mg by mouth every 6 hours as needed finasteride (Proscar) 5 MG tablet Take 1 (one) tablet by mouth once daily 06/13/2023 sevelamer (Renagel) 800 MG tablet Take 2 (two) tablets by mouth 3 times daily with meals 03/12/2024 tamsulosin (Flomax) 0.4 MG capsule Take 1 (one) capsule by mouth once daily 05/30/2023 acetaminophen (Tylenol) 500 MG tablet Take 1 (one) tablet by mouth every 8 hours as needed 07/21/2024 documented as of this encounter Plan of Treatment Upcoming Encounters Date Type Department Care Team (Late st Contact Info) Description 10/16/2024 1:30 PM ROLLER DIE CUTTING MACHINE OPERATOR Office Visit [facility] - ENT [address] [place] [phone] Ritesh Mensah MD [address] [place] [address] [place] [address] documented as of this encounter Procedures Procedure Name Priority Date/Time Associated Diagnosis Comments CT NECK SOFT TISSUE W CONT Routine 04/17/2024 9:53 AM CDT Basal cell carcinoma of skin of nose documented in this encounter Results * CT NECK SOFT TISSUE W CONT [...] report is dictated by Albino Malik, DO, ??(resident care associate) [place] Posey MD have personally reviewed and interpreted this examination/study. > Interpreting Provider: [place] Moss MD on 04/18/2024 4:54 PM Narrative 04/18/2024 4:54 PM CDT PROCEDURE: ??CT NECK SOFT TISSUE W CONT, DATE/TIME OF EXAM: ??04/17/2024 12:47 PM, LOCATION ??[facility] INDICATION: C44.311: Basal cell carcinoma of skin [...] complex resulting in at least mild or [id number] spinal canal stenosis. MRI of the cervical [...] CONT, DATE/TIME OF EXAM: 2:47 PM, LOCATION [facility] INDICATION: C44.311: Basal cell carcinoma of skin [...] complex resulting in at least mild or [id number]-[id number]-[id number] spinal canal stenosis. MRI of the cervical [...] report is dictated by Albino Malik DO, (resident care associate) I, [place] Moss MD have personally reviewed and interpretedthis examination/study. > Interpreting Provider: [place] Moss MD on 04/18/2024 4:54 PM [address] Ballard MD CT ORDERABLES documented in this encounter Visit Diagnoses Diagnosis Basal cell carcinoma of skin of nose Basal cell carcinoma of skin of other and unspecified parts of face documented in this encounter Administered Medications Inactive Administered Medications - up to 3 most recent administrations Medication Order MAR Action Action Date Dose Rate Site iopamidol (Isovue 370) 76 % contrast Intravenous, CONTRAST ONCE, Starting on Tue04/17/24 at 0930, Until Tue04/18/24 at 0144 $ Given - Contrast 04/17/2024 9:53 AM CDT 100 mL documented in this encounter Care Teams Mixer Operator Relationship Specialty Start Date End Date None, Physician [address] [place] [address] PCP - General 04/10/24 documented as of this encounter
--- OUTSIDE RECORDS SUMMARY | 2024-09-24 06:05 | XMS_ITS | Encounter Summary ---
Author Organization [facility] Address [address] [place] [address] Phone Care Team Providers Care Director Of Psychiatry Name Role Phone Provider, Unknown Primary Care Provider Unavaila Rosas Baltazar MD Unavailable [phone] Reason for Visit * Reason Onset Date Comments OTHER 08/24/2023 Encounter Details Date Type Department Care Team (Late st Contact Info) Description 08/24/2023 Telephone [facility] [place] [address] Rosas Live MD #2 [facility], [address] [address] OTHER Social History Tobacco Use Types Packs/Day Years [...] Telephone Encounter - King Johnston RMA - 08/24/2023 2:18 PM CST Pt has been discharge today from [facility] and mobile number in chart alwaystakes you to voicemail. Trying to schedule pt for a TURP as discussed with provider MIGRATION LEAD documented in this encounter Plan of Treatment Not on file documented as of this encounter Visit Diagnoses Not on filedocumented in this encounter Care Teams Director Of Psychiatry Relationship Specialty Start Date End Date Provider, Unknown UNKNOWN PCP - General 06/17/23 Rosas Live MD #[address] [place] [id number] Consulting Physician Urology 06/17/23 documented as of this encounter
--- OUTSIDE RECORDS SUMMARY | 2024-09-24 06:05 | XMS_ITS | Encounter Summary ---
Author Organization [facility] Address [address] [place] [address] Phone Care Team Providers Care Analyst Geochemical Prospecting Name Role Phone Provider, Unknown Primary Care Provider Unavaila Rosas Baltazar MD Unavailable [phone] Encounter Details Date Type Department Care Team (Late st Contact Info) Description 01/10/2024 9:30 AM CDT Office Visit [facility] [place] [address] Rosas Live MD #2 [facility], [address] [address] Urinary retention (Primary Dx) Discharge Disposition: Discharged to home or Selfcare [...] Mass Index 33.75 01/10/2024 9:16 AM CDT documented in this encounter Progress Notes * Rosas Live MD - 01/10/2024 9:30 AM CDT Reason for Visit: Urinary retention, hydronephrosis, renal failure Assessment/Plan: This is a 63 y.o. 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 He does have bilateral nephrostomy tubes in place due to inability to place stents at 1 point. At this point I do think we need to ensure that we had created a non hostile environment for his kidneys. I would like to get the input from his vest front presser prior to making any big maneuvers on his nephrostomy tubes. We could consider internalizing his nephrostomy tubes ureteral stents however, if he has outlet obstruction at the level of the prostate this would not improve his kidney function in fact would worsen it. Thus, if we were to consider stents he wouldlikely need a Rubio catheter until his prostate can be definitively managed. Prostate artery embolization is a consideration but unfortunately contrast load would hurt his kidney function. Given all this, prior to any maneuvering on nephrostomy tubes I would like to get input from his vest front presser.If there is pads for recovery of renal function, may keep him fully decompressed with nephrostomy tubes until kidney function recovers to true baseline then consider doing with the prostate with a TURP. Finally could consider capping trials with the nephrostomy tubes. The patient endorses understanding.. Interval History: Andrey Giron is a 63 y.o. male is here today for the ongoing management of multiple issues outlined above. The patient has a prior history of urinary retention with hydronephrosis. He previously underwent cystoscopy which showed trilobar hypertrophy. He was supposed to be scheduled for a TURP but never followed up with this despite multiple phone calls. He does have a history of noncompliance in the past. He then presented with gross hematuria and renal failure. Apparently cystoscopy was attempted but the ureteral orifices were unable to be localized. Given this, he had bilateral nephrostomy tubes in place. He comes in with these draining. He does not have any catheter per urethra. He is currently on dialysis with a tunneled line.. The complete REVIEW OF SYSTEMS, MEDICATION LIST and DRUG ALLERGIES, PAST MEDICAL HISTORY, FAMILY MEDICAL HISTORY and SOCIAL HISTORY are documented in detail were reviewed. The patient was asked to review all abnormal responses not pertinent to today's visit with their primary care physician. Physical Exam: Constitutional: General appearance: Well nourished, well developed, in no acute distress. Appears stated age, conversant Eyes: EOMI, no scleral icterus, no lid lag or proptosis Neurologic: Normal mood and affect, cranial nerves II-XII grossly intact. Respiratory: Normal respiratory effort. No use of accessory muscles Cardiovascular: No lower extremity edema or cyanosis. Ears, Nose, Throat, Mouth: midline trachea, no thryomegaly. Soft, supple appearing. Skin: Warm and dry. Gastrointestinal: Non-protrubrant Musculoskeletal: Moving all extremities, no distal cyanosis Psychiatry: Normal mood, alert and oriented. A&O x3. Interactive affect : Bilateral nephrostomy tubes in place Total time spent on this encounter on this date of service, including pre-visit review of separately obtained history, xhyz-[id number] interaction performing medically appropriate physical exam, patientcounseling/education, interpretation of diagnostic results, care coordination and documentation was31 minutes. documented in this encounter Plan of Treatment Not on file documented as of this encounter Visit Diagnoses Diagnosis Urinary retention- Primary Retention of urine, unspecified documented in this encounter Care Teams Analyst Geochemical Prospecting Relationship Specialty Start Date End Date Provider, Unknown UNKNOWN PCP - General 06/17/23 Rosas Live MD #[address] [address] Consulting Physician Urology 06/17/23 documented as of this encounter
--- OUTSIDE RECORDS SUMMARY | 2024-09-24 06:05 | XMS_ITS | Encounter Summary ---
Author Organization [facility] Address [address] [place] [address] Phone Care Team Providers Care Board Turner Name Role Phone Provider, Unknown Primary Care Provider Unavaila ble Rosas Live MD Unavailable [phone] Encounter Details Date Type Department Care Team (Late st Contact Info) Description 07/24/2023 Telephone [facility] [place] [phone] Rosas Live MD #2 [facility], [address] [address] Social History Tobacco Use Types Packs/Day Years [...] encounter Miscellaneous Notes * Telephone Encounter - Rosas Live MD - 07/24/2023 10:30 PM CST Please schedule patient for TURP in the operating room on Tuesday. We will need to schedule for 2.5hours. Please have him provide a new urine culture through a clean catheter 2 weeks prior to surgery. Stop blood thinners prior to surgery, will be kept overnight in the hospital OMER EXPERIENCE STRATEGIST documented in this encounter Plan of Treatment Not on file documented as of this encounter Visit Diagnoses Not on filedocumented in this encounter Care Teams Board Turner Relationship Specialty Start Date End Date Provider, Unknown UNKNOWN PCP - General 06/17/23 Rosas Live MD #2 [place] [address] Consulting Physician Urology 06/17/23 documented as of this encounter
--- OUTSIDE RECORDS SUMMARY | 2024-09-24 06:05 | XMS_ITS | Encounter Summary ---
Author Organization [facility] Address [address] [place] [place] [address] Phone Care Team Providers Care Coordinator Of Rehabilitation Services Name Role Phone Provider, Unknown Primary Care Provider Unavaila Rosas Baltazar MD Unavailable [phone] Reason for Visit * Reason Onset Date Comments OTHER 07/11/2023 Encounter Details Date Type Department Care Team (Late st Contact Info) Description 07/11/2023 Telephone [facility] [place] [address] Rosas Live MD #2 [facility], [address] [address] OTHER Social History Tobacco Use Types Packs/Day [...] Telephone Encounter - King Johnston RMA - 07/11/2023 12:42 PM CDT Pt left a voice mail message , I was returning his chase and explain to him what DR Live Had discuss with him. LVM for pt to call back. documented in this encounter Plan of Treatment Not on file documented as of this encounter Visit Diagnoses Not on filedocumented in this encounter Care Teams Coordinator Of Rehabilitation Services Relationship Specialty Start Date End Date Provider, Unknown UNKNOWN PCP - General 06/17/23 Rosas Live MD #2 [place] [address] Consulting Physician Urology 06/17/23 documented as of this encounter
--- OUTSIDE RECORDS SUMMARY | 2024-09-24 06:05 | XMS_ITS | Encounter Summary ---
Author Organization [facility] Address [address] [place] [address] Care Team Providers Care Printing Machine Mechanic Name Role Phone None, Physician Primary Care Provider Unavailabl e Reason for Visit * Auth/Cert (Routine) Specialty Diagnoses / Procedures Referred By Contac t Referred To Contact Diagnoses Basal cell carcinoma (BCC) of lateral side wall of nose Basal cell carcinoma (BCC) of lateral side wall of nose Procedures AL RECONSTR NOSE RHINOPLASTY Referral ID Status Reason Start Date Expiration Date Visits Re quested Visits Authorized [id number] 1 1 Encounter Details Date Type Department Care Team (Latest Contact Info) Description 05/22/2024 12:00 PM CDT - 05/24/2024 9:13 AM CDT Hospital Encounter [facility] [address] [place] [address] Matteo Menezes MD [address] [place] [address] Surgery General Discharge Disposition: Home or Self [...] and heating? Not hard at all 05/23/2024 [facility] of Occupat ional Health - Occupational Stress [...] Sign Reading Time Taken Comments Blood Pressure 121/78 05/24/2024 4:20 AM CDT Pulse 66 05/24/2024 4:20 AM CDT Temperature 36.8 ??C (98.2 ??F) 05/24/2024 4:20 AM CD T Respiratory Rate 16 05/24/2024 4:20 AM CDT Oxygen Saturation 95% 05/24/2024 4:20 AM CDT Inhaled Oxygen Concentration - - [...] 7:17 AM Andrey Giron 63 year old [id number] Admit Date: 05/22/2024 Discharge Date: 05/24/2024 Admitting [...] Your Medications These medications were sent to [facility] - [id number] [place] [phone] oxyCODONE (immediate release) 5 MG tablet No [...] call: and ask for the ENT resident international first officer. Jaswinder Romero MD Otolaryngology - Head & [...] Outcome: Progressing * Ramy William RN - 05/24/2024 9:13 AM CDT Pt [...] removed over 3.5h.. Pt to transfer from HD to Pre-procedural area. KOKI Lerma given report [...] 17 g Oral QDAY saline nasal spray ([place]; Baby Huron) 0.65 % nasal spray 1 spray 1 [...] for their review. Spoke with Sloane at [facility] and she was able to confirm patient's OP HD schedule Outpatient Clinic [facility] Days: MWF Time: 10:00am Doctor: Dr Verma Phone: 05/23/2024 1:47 PM Attempted to meet with patient in patient's room but patient was off the floor at this time [facility] As[facility]: [phone] Office: [phone] * Dina Brown RN - 05/23/2024 6:20 [...] 0 Date of Service: 05/22/2024 Consulting Service: [place] Team Reason for Consult: ESRD w/ HD HISTORY: Andrey Giron is a 63 year old male w/ PMH significant for ESRD w/ HD MWF via R-IJ Permcath, andBasal cell carcinoma left nose presented in [facility] ER on 05/22 for surgical intervention. He [...] of ESRD: Unknown Urine: No Access: R-IJ [facility]: [facility] Dialysis Days: MWF Dialysis Duration: 3 Hours 30 Minutes Last Dialysis: 05/21/2024 Screen Printing Supervisor: Dr. Luci Bey MD Review of Systems: [...] hours) at 05/22/20241951 Last data filed at 05/22/20241915 Gross per 24 hour Intake 940 ml [...] , DBILI , IBILI in the last 05864 hours. No results for input(s): KIMI , LIPASE in the last 10147 hours. No results for input(s): TSH in the last 41504 hours. Coagulation: No results for input(s): PT , INR , APTT in the last 60069 hours. Cardiac markers: No results for input(s): CKTOTAL , CKMB , TROPONINI in the last 65776 hours. ABG:No results for input(s): PHART , KGX1WSD , PO2ART , KOD6GIX , BASEEXCESS in the last 81035 hours. Invalid input(s): SO2ABG , FOHBABG IMAGING: XR Chest 1Vw Portable Result Date: 05/19/2024 IMPRESSION: 1.No pneumothorax or pleural effusion. 2.Spiculated nodule at the left lung apex is notwell-characterized on this exam. Report dictated by Albino Malik DO, (radiology equipment servicer). I, Augie Slater MD have personally reviewed [...] > Dictated by Natalio Villeda MD, (radiology equipment servicer). I, Augie Slater MD have personally reviewed [...] on HD for last 5 months via [facility]. Has a newly created AVF on RFA [...] REPORT NAME: Andrey Giron : 1960 CSN: [id number] DATE OF OPERATION: 05/23/2024 ATTENDING SURGEON: Ritesh Mensah MD Pre-Op Diagnosis: -Basal cell carcinoma, nose Post-Op Diagnosis: Same Procedure: -Reconstruction of nasal defect with forehead flap (CPT 74678) -Wound prep (CPT 89360) -Full thickness skin graft left cheek (CPT 45027) Operative findings: -Left nasal defect measuring 3.5cm x 3cm reconstructed with right paramedian forehead flap -Left medial cheek defect measuring 2.6cm x 1.2cm reconstructed with full thickness skin graft, taken from left neck Ticket Sorter Irma Fung MD Indications for procedure: Andrey [...] portions of the surgery. Ritesh Mensah MD [employer] Facial Plastic and Reconstructive Surgery Otolaryngology- Head [...] st Contact Info) Description 10/16/2024 1:30 PM CNC MANAGER Office Visit [facility] - ENT [address] [facility], [place] [address] Ritesh Mensah MD [address] [place] [address] DEPT [place] [address] documented as of this encounter Procedures Procedure Name Priority Date/Time Associated Diagnosis Comments AL FOREHEAD FLAP W/ PRSRV VASC PEDICLE 05/23/2024 11:57 AM CDT Basal cell carcinoma (BCC) of left side of nose Case Notes Patient at [facility]- Contact: Perla [phone] Special Needs SUPINE 8/29 NT AL REPAIR NASAL CAVITY STENOSIS 05/23/2024 11:57 AM CDT Basal cell carcinoma (BCC) of left side of nose Case Notes Patient at [facility]- Contact: Perla [phone] Special Needs SUPINE 8/29 NT HEMODIALYSIS INPATIENT Routine 05/23/2024 10:44 AM CDT [...] (BCC) of lateral side wall of nose AL RECONSTR NOSE 05/22/2024 4:13 PM CDT Basal cell carcinoma (BCC) of lateral side wall of nose Case Notes Per MD office: PT [facility]IV[facility] IN [facility];PERLA FOR [phone] Special Needs Supine 05/17 BLOOD TYPE VERIFICATION [...] W RFLX CONFIRMATION (05/23/2024 7:24 AM CDT) Hepatitis B Virus Surface Antigen Non-reacti ve Non-reacti ve 05/23/2024 8:40 AM CDT [facility] Blood BLOOD SPECIMEN / Unknown Venipuncture / Unknown 05/23/2024 7:24 AM CDT 05/23/2024 7:48 AM CDT Kimani Rivera MD LAB - CHEMISTRY NEL[place] TIPTON [facility] [address] [address], [facility] [phone] * HEPATITIS B SURFACE ANTIBODY QUANT (05/23/2024 7:24 AM CDT) Pathologist [facility] Hepatitis B Virus Surface Antibody 3.55 IU/L 05/25/2024 8:12 AM CDT [employer] ([facility]) Comment: The anti-HBs is less than 10 [...] Cellular and Tissue-Based Products (HCT/P). Performed By: [facility] [address] [place] [address] Mirror Machine Feeder: Mahendra Duron MD, PhD CLIA Number: [id number] Blood BLOOD SPECIMEN / Unknown Venipuncture / Unknown 05/23/2024 7:24 AM CDT 05/23/2024 8:06 AM CDT Kimani Rivera MD LAB - SEROLOGY ORDER ELSIE [facility] ([facility]) [address] [place] [address] * MAGNESIUM BLOOD (05/23/2024 7:24 AM CDT) Magnesium 2.2 1.6 - 2.6 mg/dL 05/23/2024 8:18 AM CDT [facility] Blood BLOOD SPECIMEN / Unknown Venipuncture / Unknown 05/23/2024 7:24 AM CDT 05/23/2024 7:50 AM CDT Matteo Menezes MD LAB - CHEMISTRY [place] T[place] [address] [address], [facility] [phone] * ALBUMIN BLOOD (05/23/2024 7:24 AM CDT) Albumin 3.6 3.4 - 5.0 g/dL 05/23/2024 8:17 AM CDT [facility] Blood BLOOD SPECIMEN / Unknown Venipuncture / Unknown 05/23/2024 7:24 AM CDT 05/23/2024 7:50 AM CDT Matteo Menezes MD LAB - CHEMISTRY [place] Performing Organization Address City/[facility]/ZIP Co de Phone Number [facility] [address] [place] [address], [facility] [phone] * (ABNORMAL) VITAMIN D 25-HYDROXY (05/23/2024 7:24 AM CDT) [facility] Vitamin D, 25 Hydroxy 22.4(L) 30.0 - 80.0 ng/mL 05/23/2024 8:35 AM CDT [facility] Comment: The recommendations for 25-Hydroxy Vitamin [...] - CHEMISTRY [place] TIPTON Performing Organization Address City/[facility]/ZIP Co de Phone Number [facility] [address] [place] [address], [facility] [phone] * (ABNORMAL) PHOSPHORUS BLOOD (05/23/2024 7:24 AM CDT) Phosphorus 6.9(H) 2.8 - 5.1 mg/dL 05/23/2024 8:18 AM [facility] Blood BLOOD SPECIMEN / Unknown Venipuncture / Unknown 05/23/2024 7:24 AM CDT 05/23/2024 7:50 AM CDT Matteo Menezes MD LAB - CHEMISTRY [place] TIP[place] [facility] [address] [place] [address], [facility] [phone] * (ABNORMAL) BASIC METABOLIC PANEL (CALCIUM TOTAL) (05/23/2024 7:24 AM CDT) BUN 59(H) 7 - 26 mg/dL 05/23/2024 8:18 AM [facility] Creatinine 10.53(H) 0.71 - 1.16 mg/dL 05/23/2024 8:18 AM [facility] Sodium 138 136 - 145 mmol/L 05/23/2024 8:18 AM [facility] Potassium 4.4 3.5 - 4.5 mmol/L 05/23/2024 8:18 AM [facility] Chloride 105 98 - 107 mmol/L 05/23/2024 8:18 AM [facility] CO2 21(L) 22 - 29 mmol/L 05/23/2024 8:18 AM [facility] Glucose 108 70 - 115 mg/dL 05/23/2024 8:18 AM [facility] Calcium 8.6 8.4 - 10.2 mg/dL 05/23/2024 8:18 AM [facility] Anion Gap 12 6 - 16 05/23/2024 8:18 AM [facility] BUN/Creatinine Ratio 6(L) 7 - 23 05/23/2024 8:18 AM [facility] Osmolality Calculated 303(H) 275 - 295 mOsm/kg 05/23/2024 8:18 AM [facility] eGFR by CKD-EPI 5(L) >=90 mL/min/1.7 3 m2 05/23/2024 8:18 AM CDT [facility] Blood BLOOD SPECIMEN / Unknown Venipuncture / Unknown 05/23/2024 7:24 AM CDT 05/23/2024 7:50 AM CDT Matteo Menezes MD LAB - CHEMISTRY [place] Performing Organization Address City/[facility]/ZIP Co de Phone Number [facility] [address] [place] [address], [facility] [phone] * PATHOLOGY TISSUE (05/22/2024 5:20 PM CDT) Case Report Surgical Pathology Report ? Case: [id number] ? Authorizing Provider: ??Matteo Menezes MD ?Collected: ? 05/22/2024 05:20 PM ? Ordering Location: ? [facility] ?Received: ?05/23/2024 04:42 AM ? Pathologist: ? Sunny Slade MD ? Specimens: ?? A) - Margin, Medial cheeck margin anterior margin ? B) - Margin, Canthus margin anterior margin ? C) - Tumor, Left rhinectomy stitch superior ? 4 1:35 PM [facility] Final Diagnosis Skin, left rhinectomy, [...] for carcinoma - Skin with actinic changes 1:35 PM [facility] Microscopic Description and Comment Microscopic examination substantiates the final diagnosis. 1:35 PM [facility] Clinical History History of BCC 1:35 PM [facility] Intraoperative Consultation Medial cheek margin [...] - Negative for carcinoma by MD Clifford 1:35 PM [facility] Gross Description The requisition [...] inferior tip, trisected RB 4 1:35 PM [facility] Pathologist Location at [facility] 4 1:35 PM [facility] Disclaimer The performance characteristics of all immunohistochemical and indirect immunofluorescence stains (if any) cited in this report were determined by the Histopathology Laboratory of [facility]. Some of these tests were developed by [...] and interpreted by the attending (teaching) pathologist. 1:35 PM CDT [facility] Embedded Images 1:35 PM CDT [facility] Biopsy, Excision (Margin) 05/22/2024 5:20 [...] Menezes MD LAB - PATHOLOGY/CYTO LOGY ORDERABLES Performing Organization Address [facility] Co de Phone Number [facility] [address] [phone] * BLOOD TYPE VERIFICATION (05/22/2024 3:11 PM CDT) ABO Rh O POS 05/22/2024 3:5 5 PM CDT [facility] Blood Bank BLOOD SPECIMEN / Unknown Venipuncture / Unknown 05/22/2024 3:11 PM CDT 05/22/2024 3:21 PM CDT Matteo Menezes MD LAB - BLOOD BANK ORD ERABLES Performing Organization Address City/[facility]/ZIP Co de Phone Number [facility] [address] [place] [address], [facility] [phone] * TYPE + SCREEN PANEL (05/22/2024 2:54 PM CDT) [facility] Antibody Screen NEG 3:47 PM CDT [facility] ABO Rh O POS 05/22/2024 3:47 PM CDT [facility] Blood Bank BLOOD SPECIMEN / Unknown Venipuncture / Unknown 05/22/2024 2:54 PM CDT 05/22/2024 3:04 PM CDT Albino Bah MD LAB - BLOOD BANK ORD ERABLES Performing Organization Address [facility]/ZIP Co de Phone Number [facility] [address] [place] [address], [facility] [phone] * (ABNORMAL) BASIC METABOLIC PANEL (CALCIUM TOTAL) (05/22/2024 2:54 PM CDT) Pathologist [facility] BUN 49(H) 7 - 26 mg/dL 05/22/2024 3:35 PM CDT [facility] Creatinine 9.55(H) 0.71 - 1.16 mg/dL 05/22/2024 3:35 PM CDT [facility] Sodium 136 136 - 145 mmol/L 05/22/2024 3:35 PM CDT [facility] Potassium 3.9 3.5 - 4.5 mmol/L 05/22/2024 3:35 PM T [facility] Chloride 104 98 - 107 mmol/L 05/22/2024 3:35 PM [facility] CO2 21(L) 22 - 29 mmol/L 05/22/2024 3:35 PM T [facility] Glucose 98 70 - 115 mg/dL 05/22/2024 3:35 PM CDT [facility] Calcium 9.4 8.4 - 10.2 mg/dL 05/22/2024 3:35 PM T [facility] Anion Gap 11 6 - 16 05/22/2024 3:35 PM [facility] BUN/Creatinine Ratio 5(L) 7 - 23 05/22/2024 3:35 PM T [facility] Osmolality Calculated 295 275 - 295 mOsm/kg 05/22/2024 3:35 PM [facility] eGFR by CKD-EPI 6(L) >=90 mL/min/1.7 3 m2 05/22/2024 3:35 PM [facility] Blood BLOOD SPECIMEN / Unknown Venipuncture / Unknown 05/22/2024 2:54 PM CDT 05/22/2024 3:01 PM CDT Albino Bah MD LAB - CHEMISTRY NELDA TIPTON [facility] Organization Address City/State/ZIP Co de Phone Number [facility] [address] [place] [address], [facility] [phone] * (ABNORMAL) CBC W AUTO DIFFERENTIAL (05/22/2024 2:54 PM CDT) WBC 8.1 4.0 - 10.7 x10E9/L 05/22/2024 3:10 PM [facility] RBC Count 3.53(L) 4.30 - 5.80 x10E12/L 05/22/2024 3:10 PM [facility] Hemoglobin 11.5(L) 13.3 - 17.5 g/dL 05/22/2024 3:10 PM [facility] Hematocrit 33.6(L) 38.7 - 51.1 % 05/22/2024 3:10 PM [facility] MCV 95.2 80.0 - 98.0 fL 05/22/2024 3:10 PM [facility] MCH 32.6 26.7 - 33.6 pg 05/22/2024 3:10 PM [facility] MCHC 34.2 31.7 - 36.3 g/dL 05/22/2024 3:10 PM [facility] RDW-CV 15.9(H) 11.3 - 14.8 % 05/22/2024 3:10 PM [facility] Platelet Count 198 150 - 420 x10E9/L 05/22/2024 3:10 PM [facility] MPV 9.6 7.8 - 11.4 fL 05/22/2024 3:10 PM [facility] Neutrophil % 70.8 41.0 - 74.0 % 05/22/2024 3:10 PM [facility] Lymphocyte % 19.4 17.0 - 47.0 % 05/22/2024 3:10 PM [facility] Monocyte % 6.8 3.0 - 11.0 % 05/22/2024 3:10 PM [facility] Eosinophil % 2.1 0.0 - 7.0 % 05/22/2024 3:10 PM [facility] Basophil % 0.7 0.0 - 1.6 % 05/22/2024 3:10 PM [facility] Immature Granulocytes % 0.2 0.0 - 1.0 % 05/22/2024 3:10 PM [facility] Neutrophil Absolute 5.76 1.60 - 7.50 x10E9/L 05/22/2024 3:10 PM [facility] Lymphocyte Absolute 1.58 1.00 - 4.40 x10E9/L 05/22/2024 3:10 PM [facility] Monocyte Absolute 0.55 0.15 - 1.00 x10E9/L 05/22/2024 3:10 PM [facility] Eosinophil Absolute 0.17 0.00 - 0.60 x10E9/L 05/22/2024 3:10 PM [facility] Basophil Absolute 0.06 0.00 - 0.13 x10E9/L 05/22/2024 3:10 PM [facility] Blood BLOOD SPECIMEN / Unknown Venipuncture / Unknown 05/22/2024 2:54 PM CDT 05/22/2024 3:04 PM CDT Albino Bah MD LAB - HEMATOLOGY ORD ERABLES [facility] [address] [place] [address], [facility] [phone] documented in this encounter Visit Diagnoses Diagnosis Preop examination- Primary Preoperative examination, unspecified Basal cell carcinoma (BCC) of left nasal sidewall Basal cell carcinoma (BCC) of lateral side wall of nose Basal cell carcinoma (BCC) of left nasal sidewall documented in this encounter Administered Medications Inactive Administered Medications - up to 3 most recent administrations Medication Order MAR Action Action Date Dose Rate Site 0.9% NaCl infusion at 50 mL/hr, Intravenous, CONTINUOUS, Starting on Tue05/22/24 at 1545, Until Tue05/23/24 at 1851 $ New Bag/Syringe 05/22/2024 3:17 PM CDT 50 mL/hr acetaminophen (Tylenol) tablet 650 mg 650 mg, [...] Given 05/22/2024 8:34 PM CDT 650 mg dextrose 5 % and 0.45% NaCl infusion at 75 mL/hr, Intravenous, CONTINUOUS, Starting on Tue05/22/24 at 2300, Until Tue05/23/24 at 1851, Post-op $ New Bag/Syringe 05/23/2024 1:56 AM CDT 75 mL/hr fentaNYL (PF) (Sublimaze) injection 25 mcg 25 [...] cannot tolerate oral intake, PACU $ Given 05/23/2024 4:35 PM CDT 25 mcg $ Given 05/23/2024 4:25 PM CDT 25 mcg fentaNYL (PF) (Sublimaze) injection 50 mcg [...] cannot tolerate oral intake, PACU $ Given 05/23/2024 5:10 PM CDT 50 mcg finasteride (Proscar) tablet 5 mg 5 mg, [...] Given 05/23/2024 11:07 AM CDT 4,800 Units HYDROmorphone (Dilaudid) injection 0.5 mg 0.5 mg, Intravenous, EVERY 10 MIN PRN, Severe Pain, 4 doses, Starting on Tue05/22/24 at 1802, Until Tue05/22/24 at 2022, Maximum total of 4 doses If patient [...] cannot tolerate oral intake, PACU $ Given 05/22/2024 6:39 PM CDT 0.5 mg ondansetron (disintegrating) (Zofran ODT) tablet 4 mg [...] swallow., Post-op ondansetron (Zofran) injection 4 mg 4 mg, Intravenous, ONCE PRN, Nausea/Vomiting, 1 dose, Starting on Tue05/23/24 at 1454, Until Tue05/23/24 at 1555, First choice, PACU $ Given 05/23/2024 3:55 PM CDT 4 mg oxyCODONE (immediate release) (Roxicodone) tablet 10 [...] Until Tue05/24/24 at 1014 saline nasal spray ([place]; Baby Huron) 0.65 % nasal spray 1 spray 1 [...] Nausea/Vomiting, Starting on Tue05/22/24 at 2247, Until Tue05/24/24 at 1014, Administer IV if patient is [...] Until Tue05/24/24 at 1014 saline nasal spray ([place]; Baby Huron) 0.65 % nasal spray 1 spray 1 [...] intake documented in this encounter Care Teams Printing Machine Mechanic Relationship Specialty Start Date End Date None, Physician [address] [place] [address] PCP - General 04/10/24 documented as of this encounter
--- OUTSIDE RECORDS SUMMARY | 2024-09-24 06:05 | XMS_ITS | Encounter Summary ---
Author Organization [facility] Address [address] [facility], [address] [place] [address] Phone Care Team Providers Care Steam Shovel Engineer Name Role Phone Provider, Unknown Primary Care Provider Unavaila Rosas Baltazar MD Unavailable [phone] Reason for Visit * Auth/Cert (Routine) Specialty Diagnoses / Procedures Referred By Grace hathaway Referred To Contact Diagnoses URINARY RETENTION Procedures CYSTOSCOPY FLEXIBLE INSERTION,REMOVAL,OR EXCHANGE CHILDS CATHETER TRANSANAL ULTRASOUND Rosas Live MD #[address] [address] Phone: tel: fax: Referral ID Status Reason Start Date Expiration Date Visits Re quested Visits Authorized [id number] 1 1 Encounter Details Date Type Department Care Team (Late st Contact Info) Description 07/15/2023 1:40 PM CDT - 07/15/2023 2:40 PM CDT [facility] [address] [place] [address] Rosas Live MD #[address] [address] FLEXIBLE CYSTOSCOPY Surgery Details Date/Time Status Location OR Service Patient Class Case Class Case Type Trauma Case? 07/15/2023 1:40 PM Posted [facility] OR [address] [place] [address] Ambulatory Surgery Elective/ Scheduled Panel 1 Procedure LRB Anes Op Region Wound Class Comments FLEXIBLE CYSTOSCOPY N/A Monitored An esthesia Care Urethra Dirty or Infected CHILDS CATHETER EXCHANGE N/A Monitore d Anesthesia Care Bladder Dirty or Infected TRANSRECTAL ULTRASOUND N/A Monitored Anesthesia Care Anus Dirty or Infected Surgeon Surgeon Role Service Panel Rosas Live MD Primary Urology 1 Special Needs Facility transporter unable to have patient here sooner than 1230 (Urology, Audrey notified) DS aware, Hx: COPD, Acute Kidney Failure 5' 8 210# documented in this encounter Social History Tobacco [...] Sign Reading Time Taken Comments Blood Pressure 109/72 07/15/2023 2:38 PM CDT Pulse 83 07/15/2023 2:38 PM CDT Temperature 36.6 ??C (97.9 ??F) 07/15/2023 2:23 PM CD T Respiratory Rate 16 07/15/2023 2:38 PM CDT Oxygen Saturation 96% 07/15/2023 2:38 PM CDT Inhaled Oxygen Concentration - - [...] 500 MG Capsule 06/10/2023 ergocalciferol (VITAMIN D) 50143 UNIT Capsule Take 1.25 mg by mouth [...] his TURP surgery Thank you, Rosas Live JAVA SOFTWARE ENGINEER * Irma Arzola - 07/15/2023 3:45 PM CDT Lm for pt to call back. JAVA SOFTWARE ENGINEER * Irma Arzola - 07/15/2023 3:45 PM CDT Left message for pt to call back. JAVA SOFTWARE ENGINEER * Irma Arzola - 07/15/2023 3:45 PM CDT Left message/ mailed letter. JAVA SOFTWARE ENGINEER documented in this encounter H&P Notes * [...] including pre-visit review of separately obtained history, bphp-ur-[id number] interaction performing medically appropriate physical exam, patientcounseling/education, [...] encounter OR Notes * OR Surgeon - Calos, Rosas Ahn MD - 07/15/2023 3:45 PM CDT PHYSICIAN'S OPERATIVE NOTE Pre-Op Diagnosis: 1. Urinary retention Post-Op Diagnosis: 1. urinary retention Procedure: 1. Cystoscopy 2. Transrectal ultrasound Surgeon: Rosas Kathleen MD Repair Operator: none Anesthesia: MAC Indications: This is a 63 y.o. male with Urinary retention. We plan for cystoscopy and transrectal ultrasound for surgical planning.. We had extensive discussion about risks of surgery which include and are not limited to infection, pain, bleeding, lack of efficacy, and injury to adjacent structures. We discussed more sinister complications including DVT, PE, SC, stroke, , nerve and positioning injuries. We [...] appropriately dried. a well lubricated flexible 16 Swiss cystoscope was introduced transurethrally. There were no [...] was then returned to the supine position andawoken. All lines and tubes were functioning appropriately and was transferred to PACU in stable condition. Complications: None EBL: 0 mL Fluids: Per anesthesia records Drains/Tubes: 1. None Grafts/Implants: None Condition: Stable Specimen: 1. None Disposition: 1. Plan for TURP- Discussed need for staged approach Previously in the clinic. JAVA SOFTWARE ENGINEER documented in this encounter Miscellaneous Notes * [...] videos and all your education online visit, [email or web address] or scan this QR code with your [...] 10/15/2017 Document Revised: 11/25/2021 Document Reviewed: 08/21/2021 [employer] Patient Education ? 2021 [employer] * Plan of Care - Lottie Dorsey RN - 07/15/2023 2:34 PM CDT Patient will be discharged from PACU when criteria has been met. * Plan of Care - Kay Ely RN - 07/15/2023 12:30 PM CDT Problem: Adult Inpatient Plan of Care Goal: Plan of Care Review Outcome: Ongoing (see interventions/notes) Flowsheets (Taken 07/15/2023 1224) Plan of Care Reviewed With: patient Progress: [...] Manage VTE (Venous Thromboembolism) Risk Flowsheets (Taken 07/15/20231228) VTE Prevention/Management: ambulation encouraged Goal: Optimal Comfort and Wellbeing Outcome: Ongoing (see interventions/notes) Intervention: Provide Person-Centered Care Flowsheets (Taken 07/15/20231228) Trust Relationship/Rapport: care explained choices provided Goal: [...] doctor who is doing your procedure. * Nohelia Rose RN - 07/11/2023 10:16 AM CDT [facility] ADULT TEACHING Patient Name: Andrey Giron : 1960 [facility]#: [id number] Person Educated Patient Ready to Learn Yes [...] be allowed to accompany you to the [facility]. No children under theage of 16 [address] allowed in the [facility] unless they are the patient. If the [...] Patient Response: Verbalizes Understanding Patient assessed for language asst during the preop interview and appropriate interventions [...] to have patient here sooner than 1230 (AneudyyAudrey notified) DS aware, Hx: COPD, Acute Kidney Failure 5' 8 210# CYSTOSCOPY FLEXIBLE 07/15/2023 1:41 PM CDT URINARY RETENTION Special Needs Facility transporter unable to have patient here sooner than 1230 (Audrey Choudhury notified) DS aware, Hx: COPD, Acute Kidney Failure 5' 8 210# documented in this encounter Results * Culture, Urine (07/15/2023 2:25 PM CDT) CULTURE RESULTS KLEBSIELLA AEROGENES 07/17/2023 5:54 PM CDT [facility] Comment: ALSO MIXED GROWTH OF [...] IIB 64 mcg/ml: Intermediate KLEBSIELLA AEROGENES Piperacillin/Tazobactam [facility] JAMI K IIB <=4 mcg/ml: Susceptible KLEBSIELLA AEROGENES Tobramycin [facility] VITEK IIB <=1 mcg/ml: Susceptible KLEBSIELLA AEROGENES Trimeth/Sulfamethoxazole [facility] VIT EK IIB <=20 mcg/ml: Susceptible us Rosas Kathleen MD MICROBIOLOGY - GENERAL ORDERAB LES Final Result [facility] [address] [place] [address], documented in this encounter Visit Diagnoses Not [...] 1251 (New Bag - Prov ider: Kay Ely, KOKI)1404 (Continued by Anesthesia - Provider: Good Garcia, INTERMODAL DISPATCHER, POWER SAW OPERATOR)1438 (Stopped - Provider: Lottie Dorsey RN) PRN Medication Order 07/13/2023 07/14/2023 07/15/2023 [email or web address] [...] II) documented in this encounter Care Teams Steam Shovel Engineer Relationship Specialty Start Date End Date Provider, Unknown UNKNOWN PCP - General 06/17/23 Rosas Live MD #[address] [address] Consulting Physician Urology 06/17/23 documented as of this encounter
--- OUTSIDE RECORDS SUMMARY | 2024-09-24 06:05 | XMS_ITS | Encounter Summary ---
Author Organization [facility] Address [address] [place] [address] Care Team Providers Care Supervisor Sign Shop Name Role Phone None, Physician Primary Care Provider Unavailabl e Reason for Visit * Auth/Cert (Routine) Specialty Diagnoses / Procedures Referred By Contac t Referred To Contact Diagnoses Lung nodule Procedures CT CHEST WO CONT SUPER DIMENSION Referral ID Status Reason Start Date Expiration Date Visits Re quested Visits Authorized [id number] 1 1 Encounter Details Date Type Department Care Team (Late st Contact Info) Description 05/18/2024 2:39 PM CDT Anesthesia Event [facility] [address] [place] [phone] Nohelia Chatman DO [address] [place] [phone] Armando Agee MD [address] [facility] [address] [phone] Anesthesia Record Procedure Summary Procedure Name Responsible Anesthesiologist Anesthesia Start Time Anesthesia Stop Time BRONCHOSCOPY WITH ROBOT ASSIST, BRONCHOALVEOLAR LAVAGE, TRANSBRONCHIAL BIOPSIES, AND BRUSHINGS Nohelia Chatman DO 05/18/24 1439 05/18/24 154 9 Events Date Time Event Comment 05/18/2024 1439 An Start 1439 Pt In Room 1439 An Start Data 1440 PT Reassessment 1440 Induction 1442 An Intubation 1444 Anes Ready 1445 Time Out Anesthesia part icipated in timeout at the time documented in the record by nursing 1450 Proc Start 1528 Proc Stop 1528 An Emergence 1541 Extubation 1541 ANPTO2 1541 an stop data 1541 Pt out of Room 1549 An Stop Meds Name Total midazolam 2 mg/2mL injection 2 mg fentaNYL 100 mcg/2ml injection 100 mcg lidocaine PF 2% 100 mg propofol 200mg/20mL injection 200 mg rocuronium 50 mg/5 mL injection 50 mg phenylephrine 100 mcg/mL syringe 300 mcg dexamethasone 10 mg/ml PF injection 4 mg sugammadex 200 mg/2mL injection 200 mg propofol 500 mg/50 mL 513.07 mg vasopressin (Vasostrict) 20 Units in 0.9 % NaCl IV 20 mL infusion 4 Units LR (Lactated ringers) 500 mL * Agents Name Insp. N2O Exp. Sevoflurane Exp. N2O O2 Flow - Auxiliary O2 Air Insp. Sevoflurane * Blood No [...] by Aicha Major, KOKI Peripheral IV Date: 05/18/24; Time : 1227; Orientation: Left, Posterior; Location: Hand; Gauge: 20 G 05/18/24 1227 by Laura Wright RN 05/18/24 1724 by Aicha Major, KOKI ETT Date: 05/18/24; Time : 1442; Placed By: Anne Marie Knight; Vent: easy with oral airway mask; Induction: Standard IV; Blade Type: Slade; Blade Size: 2; Laryngoscopy View: Grade 1 (full cords); Intubation Adjuncts: Stylet; Tube: Endotracheal Tube; Placement: Oral; Tube Type: Cuffed-inflated; Tube Size(mm): 8.5 MM; Depth of Insertion: 21 CM; Measured From: lips; Attempts: 1; Cuff Infated: Air; Verified By: Direct visualization, Bilateral breath sounds, Chest Auscultation, CO2 Monitor 05/18/24 1442 by Albino Corral Anes Asst 05/18/24 1541 by Albino Corral Anes Assrivas documented in this encounter Social History Tobacco [...] hard at all 05/23/2024 [facility] [place] [facility] - Occupational Stress [...] Progress Notes * Nohelia Chatman DO - 05/18/2024 3:56 PM CDT ANESTHESIA POSTOP EVALUATION NOTE Procedure: BRONCHOSCOPY WITH ROBOT ASSIST, BRONCHOALVEOLAR LAVAGE, TRANSBRONCHIAL BIOPSIES, AND BRUSHINGS Andrey Giron is a 64 year old male No data found. Anesthesia Type: general ETT Pre-op Diagnosis Codes: * Abnormal chest CT [R93.89] Mental Status: awake Neuro Status: No numbness, tingling or visual disturbances Respiratory Function: natural Cardiac Function: stable Postop Pain: acceptable to the patient Postop Hydration: adequate Postop Nausea: none Assessment: no apparent anesthetic complications, patient tolerated procedure well and no evidence of recall NOTABLE EVENTS: No notable events documented. * Nohelia Chatman DO - 05/15/2024 2:54 PM CDT ANESTHESIA PREOPERATIVE EVALUATION NOTE Procedure: BRONCHOSCOPY WITH ROBOT ASSIST, BRONCHOALVEOLAR LAVAGE, TRANSBRONCHIAL BIOPSIES, AND BRUSHINGS Vitals: No data found. LMP: No LMP for male patient. OB Status: unknown ANESTHESIA PRE-EVALUATION NOTE History of Present Illness: Andrey Giron is a 63 year old male presenting via telephone encounter for pre-operative evaluation and optimization prior to undergoing a bronchoscopy with robot assist, bronchoalveolar lavage, transbronchial biopsies, and brushings on 05/[address] Mccormack for abnormal chest CT. PMHx is otherwise significant for ESRD on HD (MWF) via right arm AVF & tunneled IJ catheter, HTN, COPD, obesity, hepatitis C and anemia (s/p blood transfusion spring 2023). Denies prior complications from anesthesia. Functional capacity: > or equal to 4 METs with no cardiopulmonary symptoms The patient is a current smoker (cigarrettes 1/2 ppd). The patient was instructed to abstain from smoking on day of procedure. Physical Exam: Orientation X3 Airway/Mallampati Score: II Mouth Opening Distance: 3 fingerwidths Neck ROM: full TM Distance: < 3 FB Teeth: poor dentition Heart: normal - S1 S2 Lungs: clear to ausculation bilaterally Physical Exam Additional Comments: Unable to assess due to phone encounter Review of Systems: History of anesthetic complications: [...] may need TTE contact Dr. Adame or [facility] 4. History of Cerebrovascular Disease? Prior TIA or stroke no If yes then paste summary of most any relevant neurovascular imaging or carotid duplex results under Other Additional Findings/Comments section above: Carotid bruit? unknown if yes AND h/o CVA/ TIA then may need carotid duplex - contact Dr. Adame [facility] 5. Insulin-Dependent Diabetes? no No results for input(s): HGBA1C , A1C , SCCSTSBBY4W , EAG inthe last 68313 hours. Insulin pump? no if yes then patient was instructed to continue at 75% basal rate on DOS, AND 1164 placed? no 6. Preoperative Creatinine > 2 mg/dl? yes No results for input(s): SODIUM , POTASSIUM , CHLORIDE , CO2 , BUN , CREATININE , EGFR , EGFRAFRIC , GLUCOSE , CALCIUM in the last 10872 hours. No results for input(s): WBC , HEMOGLOBIN , HGB , HEMATOCRIT , HCT , PLATELET , PLTCOUNT inthe last 61978 hours. Total RCRI / MACE score 1 [...] PM and Within 6 months for AICD [place] Information needed (cardiac/vascular sonographer, mode, indication for CIED, battery life, magnet function): Call [phone] with all patients with CIEDs: IV. Anticoagulants: Are they receiving antiplatelet/anticoagulant medications (besides ASA)? What is the periop plan? NO No results for input(s): APT , INR , PTT in the last 59254 hours.6 V. Previous blood transfusion? yes If [...] Age>50, Neck circumference>18 If yes then: update [employer] problem list to include: BRENDA If patient [...] being admitted then order: IP Consult to Wringer Machine Operator (comment regarding consult for undiagnosed BRENDA) - Follow steps 2 and 3 above If pt has STOP-BANG >=5 with undiagnosed BRENDA and is outpatient and interested in setting up a sleep study then: - send [employer] message to FAYE and cc Dr. Adame Patient was educated about the potential implications of BRENDA on their perioperative course and recommendations for follow-up care were addressed - including inpatient consult(s) as above? no VII. Known or suspected difficult airway no and complete previous airway management section above If yes then: update Epic problem list to include: difficult airway and call Dr. Deep or [facility] VIII. Frailty screen: No data [...] a 63 year old male presenting for BRONCHOSCOPY WITH ROBOT ASSIST, BRONCHOALVEOLAR LAVAGE, TRANSBRONCHIAL BIOPSIES, AND BRUSHINGS. They have an ASA score of 3 and a RCRI / MACE score of 1 Point >= 0.9% Follow up results - have ALL the above ordered labs and vital signs been reviewed? YES - with the following notable abnormalities Hgb 11.6 They ARE OPTIMIZED - PAT EVALUATION COMPLETE Armando Agee MD 05/15/2024 3:26 PM for this procedure. Vital signs updated [...] mouth every 8 hours as needed ??? alum and mag hydroxide-simeth (Maalox Max) 400-400-40 MG/5ML suspension Take 5 mL by mouth every 6 hours as needed for Heartburn ??? diphenhydrAMINE (Benadryl) 25 mg/50 mL infusion Take 25 (twenty five) mg by mouth every 6 hoursas needed ??? finasteride (Proscar) 5 MG tablet Take 1 (one) tablet by mouth once daily ??? polyethylene glycol 3350 (Miralax) 17 g packet Take by mouth once daily ??? sevelamer (Renagel) [...] procedural Anesthetic Plan was discussed with the anesthesiologist assistant winemaker. BMI, Height, Weight Tobacco History Estimated body mass index is 32.23 kg/m?? as calculated from the following: Height as of 05/11/24: 1.727 m (5' 8 ). Weight as of 05/11/24: 96.2 kg (212 lb). Social History Tobacco Use Smoking Status Every Day ??? Packs/day: .5 ??? Types: Cigarettes Smokeless Tobacco Never Alcohol History Drug History Social History Substance and Sexual Activity Alcohol Use Not Currently Social History Substance and Sexual Activity Drug Use Never Outpatient Medications: Inpatient Medications: Outpatient Medications Marked as Taking for the 05/18/24 encounter (Hospital Encounter) Medication Sig Last Dose ??? acetaminophen Take 1 (one) tablet by mouth every 8 hours as needed ??? alum and mag hydroxide-simeth Take 5 mL by mouth every 6 hours as needed for Heartburn ??? diphenhydrAMINE Take 25 (twenty five) mg by mouth every 6 hours as needed ??? finasteride Take 1 (one) tablet by mouth once daily ??? polyethylene glycol 3350 Take by mouth once daily ??? sevelamer Take 2 (two) tablets by mouth 3 times daily with meals ??? tamsulosin Take 1 (one) capsule by mouth once daily No current facility-administered medications for this encounter. [...] ??? 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 unknown OB History No obstetric history on file. Covid Vaccine: Lab Results: Recent Labs Base Name 05/07/24 0925 [id number] No results found for requested labs within last 120 days. No results found for requested labs within last 120 days. documented in this encounter Procedure Notes * Albino Corral Anes Asst - 05/18/2024 3:01 PM CDTAssociated Order(s): ETT Placement Endotracheal Tube Placement: Patient Location: OR. Intubation Event Date/Time: 05/18/2024 2:42 PM Procedure: intubation ([id number]) Procedure Section: Sedation: under general anesthesia. Indications for Airway Management: anesthesia Induction: standard IV Patient Position: sniffing Mask [...] Yes Difficult Airway? No. Procedure Start Time: 05/18/2024 2:42 PM. Staff Section Anesthesia Provider: Albino Corral Anes Asst, Performed the procedure documented in this encounter Miscellaneous Notes * Anesthesia Transfer of Care - Albino Corral Anes Asst - 05/18/2024 3:48 PM CDT ANESTHESIA TRANSFER OF CARE NOTE Today's Date: 05/18/2024 Date of : 1960 Patient: Andrey Giron Procedure(s) with comments: BRONCHOSCOPY WITH ROBOT ASSIST, BRONCHOALVEOLAR LAVAGE, TRANSBRONCHIAL BIOPSIES, AND BRUSHINGS - bronchoscopic via ETT Surgeon(s): Primary: Ben Mccormack MD Fellow: Leon Quintero MD Preop Diagnosis: Pre-op Diagnois: * Abnormal chest CT [R93.89] Pre-op Meds (From admission, onward) Start Stop Status Route Frequency Ordered 05/18/24 1200 0.9% NaCl infusion -- Dispensed IV PRE-OP CONTINUOUS 05/18/24 1147 05/18/24 1200 acetaminophen (Tylenol) tablet 1,000 mg 05/18/24 2359 Verified PO PRE-OP ONCE 05/18/24 1147 05/18/24 1546 acetaminophen (Tylenol) tablet 1,000 mg -- Sent PO ONCE PRN 05/18/24 1546 05/18/24 1546 albuterol-ipratropium (Duo-Neb) nebulizer solution 3 mL -- Sent IN POST-OP MULTIPLE 05/18/24 1546 05/18/24 1546 dexAMETHasone (Decadron) injection 8 mg -- Sent IV ONCE PRN 05/18/24 1546 05/18/24 1455 dexAMETHasone Sod Phosphate PF injection -- Sent IV PRN 05/18/24 1456 05/18/24 1440 fentaNYL (PF) (Sublimaze) injection -- Sent IV PRN 05/18/24 1451 05/18/24 1546 fentaNYL (PF) (Sublimaze) injection 25 mcg -- Sent IV EVERY 10 MIN PRN 05/18/24 1546 05/18/24 1546 fentaNYL (PF) (Sublimaze) injection 50 mcg -- Sent IV EVERY 10 MIN PRN 05/18/24 1546 05/18/24 1546 hydrALAZINE (Apresoline) injection 5 mg -- Sent IV POST-OP MULTIPLE 05/18/24 1546 05/18/24 1546 HYDROmorphone (Dilaudid) injection 0.5 mg -- Sent IV EVERY 10 MIN PRN 05/18/24 1546 05/18/24 1546 labetalol (Normodyne; Trandate) injection 5 mg -- Sent IV POST-OP MULTIPLE 05/18/24 1546 05/18/24 1433 lactated ringers infusion -- Sent IV CONTINUOUS PRN 05/18/24 1452 05/18/24 1600 lactated ringers infusion -- Sent IV CONTINUOUS 05/18/24 1546 05/18/24 1440 lidocaine HCl (PF) (Xylocaine MPF) 2 % injection -- Sent IV PRN 05/18/24 1456 05/18/24 1436 midazolam (Versed) injection -- Sent IV PRN 05/18/24 1448 05/18/24 1546 naloxone (Narcan) injection 0.04 mg -- Sent IV POST-OP MULTIPLE 05/18/24 1546 05/18/24 1546 ondansetron (Zofran) injection 4 mg -- Sent IV ONCE PRN 05/18/24 1546 05/18/24 1455 phenylephrine 100 mcg/mL injection -- Sent IV PRN 05/18/24 1455 05/18/24 1546 prochlorperazine (Compazine) injection 10 mg -- Sent IV ONCE PRN 05/18/24 1546 05/18/24 1443 propofol (Diprivan) infusion -- Sent IV CONTINUOUS PRN 05/18/24 1452 05/18/24 1440 propofol (Diprivan) injection -- Sent IV PRN 05/18/24 1451 05/18/24 1440 rocuronium (Zemuron) injection -- Sent IV PRN 05/18/24 1451 05/18/24 1525 sugammadex (Bridion) injection -- Sent IV PRN 05/18/24 1527 05/18/24 1546 throat lozenge 1 lozenge -- Sent PO EVERY 1 HOUR PRN 05/18/24 1546 05/18/24 1500 vasopressin (Vasostrict) 20 Units in 0.9% NaCl IV 20 mL infusion -- Sent IV CONTINUOUS PRN 05/18/24 1500 Post-op Diagnosis: * Abnormal chest CT [R93.89] . No Known Allergies Vitals: Patient Vitals for the past 3 hrs: BP Pulse Resp SpO2 05/18/24 1300 115/76 84 18 92 % Lines, Drains, and Airways Type Details Placement Removal Peripheral IV Date: 05/18/24; Time: 1227; Orientation: Left, Posterior; Location: Hand; Gauge: 20 G005/18/24 1227 by Laura Wright RN Nephrostomy Tube Outside Facility; 05/18/24; 1320; Back, Left 05/18/24 1320 by Aicha Major RN Nephrostomy Tube Outside Facility; 05/18/24; 1321; Back, Right 05/18/24 1321 by Aicha Major RN ETT Date: 05/18/24; Time: 1442; Placed By: Anne Marie Knight; Vent: easy with oral airway mask; Induction: Standard IV; Blade Type: Slade; Blade Size: 2; Laryngoscopy View: Grade 1 (full cords); Intubation Adjuncts: Stylet; Tube: Endotracheal Tube; Placement: Oral; Tube Type: Cuffed-inflated; Tube Size(mm): 8.5 MM; Depth of Insertion: 21 CM; Measured From: lips; Attempts: 1; Cuff Infated:Air; Verified By: Direct visualization, Bilateral breath sounds, Chest Auscultation, CO2 Monitor 05/18/24 1442 by Albino Corral Anes Asst 05/18/24 1541 by Albino Corral Anes Asst Intraprocedure I/O Totals None Patient Transfer Location: PACU Transport Airway: spontaneous respirations and supplemental O2 Complications: None Handoff Given? Yes Checklist or [...] report from the receiving PACUteam. 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 [place] [phone] Ritesh Mensah MD [address] [facility] [address] [place] [address] documented as of this encounter Procedures Procedure Name Priority Date/Time Associated Diagnosis Comments ENDOTRACHEAL TUBE NOTE Routine 05/18/2024 3:01 PM CDT documented in this encounter Results * ETT LINE PERFORMABLE (05/18/2024 3:01 PM CDT) Narrative Albino Corral Anes Asst - 05/18/2024 3:01 PM CDT Albino Corral Anes Asst ? 05/18/2024 ??3:02 PM Endotracheal Tube Placement: ? Patient Location: OR. Intubation Event Date/Time: ??05/18/2024 2:42 PM Procedure: intubation ([id number]) Procedure Section: ?? Sedation: under general anesthesia. [...] procedure Nohelia Chatman DO GENERAL ANESTHESIA ORDERABLES documented in this encounter Visit Diagnoses Not on filedocumented in this encounter Administered Medications Inactive Administered Medications - up to 3 most recent administrations Medication Order MAR Action Action Date Dose Rate Site dexAMETHasone Sod Phosphate PF injection Intravenous, PRN, Starting on Tue05/18/24 at 1455, Until Tue05/18/24 at 1549, Anesthesia Intra-op $ Given 05/18/2024 2:55 PM CDT 4 mg fentaNYL (PF) (Sublimaze) injection Intravenous, PRN, Starting on Tue05/18/24 at 1440, Until Tue05/18/24 at 1549, Anesthesia Intra-op $ Given 05/18/2024 2:40 PM CDT 100 mcg lactated ringers infusion Intravenous, CONTINUOUS PRN, Starting on Tue05/18/24 at 1433, Until Tue05/18/24 at 1549, Anesthesia Intra-op $ New Bag/Syringe 05/18/2024 2:33 PM CDT lidocaine HCl (PF) (Xylocaine MPF) 2 % injection Intravenous, PRN, Starting on Tue05/18/24 at 1440, Until Tue05/18/24 at 1549, Anesthesia Intra-op $ Given 05/18/2024 2:40 PM CDT 100 mg midazolam (Versed) injection Intravenous, PRN, Starting on Tue05/18/24 at 1436, Until Tue05/18/24 at 1549, Anesthesia Intra-op $ Given 05/18/2024 2:36 PM CDT 2 mg phenylephrine 100 mcg/mL injection Intravenous, PRN, Starting on Tue05/18/24 at 1455, Until Tue05/18/24 at 1549, Anesthesia Intra-op $ Given 05/18/2024 3:10 PM CDT 150 mcg $ Given 05/18/2024 2:55 PM CDT 150 mcg propofol (Diprivan) infusion Intravenous, CONTINUOUS PRN, Starting on Tue05/18/24 at 1443, Until Tue05/18/24 at 1549, Anesthesia Intra-op Rate Change 05/18/2024 2:57 PM CDT 125 mcg/kg/min 71.925 mL/hr $ New Bag/Syringe 05/18/2024 2:43 PM CDT 150 mcg/kg/min 86 .31 mL/hr propofol (Diprivan) injection Intravenous, PRN, Starting on Tue05/18/24 at 1440, Until Tue05/18/24 at 1549, Anesthesia Intra-op $ Given 05/18/2024 2:40 PM CDT 200 mg rocuronium (Zemuron) injection Intravenous, PRN, Starting on Tue05/18/24 at 1440, Until Tue05/18/24 at 1549, Anesthesia Intra-op $ Given 05/18/2024 2:40 PM CDT 50 mg sugammadex (Bridion) injection Intravenous, PRN, Starting on Tue05/18/24 at 1525, Until Tue05/18/24 at 1549, Anesthesia Intra-op $ Given 05/18/2024 3:25 PM CDT 200 mg vasopressin (Vasostrict) 20 Units in 0.9% NaCl IV 20 mL infusion Intravenous, CONTINUOUS PRN, Starting on Tue05/18/24 at 1500, Until Tue05/18/24 at 1549, Anesthesia Intra-op $ Bolus New Bag 05/18/2024 3:20 PM CDT 2 Units $ New Bag/Syringe 05/18/2024 3:00 PM CDT 2 Units documented in this encounter Care Teams Supervisor Sign Shop Relationship Specialty Start Date End Date None, Physician [address] [place] [address] PCP - General 04/10/24 documented as of this encounter
--- OUTSIDE RECORDS SUMMARY | 2024-09-24 06:05 | XMS_ITS | Encounter Summary ---
Author Organization [facility] Address [address] [place] [address] Phone Care Team Providers Care Control Clerk Head Name Role Phone Provider, Unknown Primary Care Provider Unavaila ble Rosas Live MD Unavailable [phone] Reason for Referral * Radiology Services (Routine) - Closed Specialty Diagnoses / Procedures Referred By Contac t Referred To Contact Radiology Diagnoses Preop testing Procedures EKG 12 LEAD Rosas Live MD [address] [address] Phone: tel: fax: Referral ID Status Reason Start Date Expiration Date Visits Re quested Visits Authorized [id number] Closed 07/11/2023 1 1 Encounter Details Date Type Department Care Team (Late st Contact Info) Description 07/11/2023 Transcribe Orders [facility] Preop/Pacu II [address] [place] [phone] Rosas Live MD [address] [address] Preop testing (Primary Dx) Social History Tobacco Use Types [...] Recorded In the last 10 days, have iker u been in contact with someone who was confirmed or suspected to have Coronavirus/COVID-19? No / Unsure 07/08/2023 10:56 AM CDT documented as of this encounter Plan of Treatment Not on file documented as of this encounter Results * EKG 12 LEAD (07/11/2023 1:47 PM CDT) Ventricular Rate 94 BPM EXTERNAL EKG Atrial Rate 94 BPM EXTERNAL EKG P-R Interval 138 ms EXTERNAL EKG QRS Duration 66 ms EXTERNAL EKG Q-T Duration 324 ms EXTERNAL EKG QTC CALCULATION 405 ms EXTERNAL EKG P Britton 45 degrees EXTERNAL EKG R Britton 33 degrees EXTERNAL EKG T Britton 72 degrees EXTERNAL EKG 07/11/2023 1:47 PM CDT Impressions EXTERNAL EKG - 07/14/2023 8:49 AM CDT Normal sinus rhythm Normal ECG No previous ECGs available Confirmed by Jovan Mac ([id number]) on 07/14/2023 8:49:04 AM Narrative Procedure Note Jovan Crabtree MD - 07/14/2023 IMPRESSION: Normal sinus rhythm Normal ECG No previous ECGs available Confirmed by Jovan Mac ([id number]) on 07/14/2023 8:49:04 AM Rosas Kathleen MD IMG ECG ORDERABLES Final Resul t EXTERNAL EKG documented in this encounter Visit Diagnoses Diagnosis Preop testing- Primary Preoperative examination, unspecified Preop testing Preoperative examination, unspecified documented in this encounter Care Teams Control Clerk Head Relationship Specialty Start Date End Date Provider, Unknown UNKNOWN PCP - General 06/17/23 Rosas Live MD [address] [address] Consulting Physician Urology 06/17/23 documented as of this encounter
--- OUTSIDE RECORDS SUMMARY | 2024-09-24 06:05 | XMS_ITS | Encounter Summary ---
Author Organization [facility] Address [address] [place] [address] Phone Care Team Providers Care Grease Buffer Name Role Phone Provider, Unknown Primary Care Provider Unavaila Rosas Baltazar MD Unavailable [phone] Reason for Visit * Reason Comments New Patient Acute Kidney Failure Encounter Details Date Type Department Care Team (Late st Contact Info) Description 06/17/2023 9:00 AM CDT Office Visit [facility] [address] [place] [address] Rosas Live MD #2 [facility], [address] [address] Urinary retention (Primary Dx) Discharge Disposition: Discharged to home or Selfcare Social History Tobacco Use Types Packs/Day Years Used Date Smoking Tobacco: Every Day Cigarettes 1.5 49 Smokeless Tobacco: Never Tobacco Cessation:Ready to [...] AM CDT documented as of this encounter Last Filed Vital Signs Vital Sign Reading Time Taken Comments Blood Pressure 135/85 06/17/2023 9:04 AM CDT Pulse 55 06/17/2023 9:04 AM CDT Temperature 36.9 ??C (98.4 ??F) 06/17/2023 9:04 AM CD T Respiratory Rate 18 06/17/2023 9:04 AM CDT Oxygen Saturation 95% 06/17/2023 9:04 AM CDT Inhaled Oxygen Concentration - - Weight 100.7 kg (222 lb) 06/17/2023 9:04 AM CDT Height 172.7 cm (5' 8 ) 06/17/2023 9:04 AM CDT Body Mass Index 33.75 06/17/2023 9:04 AM CDT documented in this encounter Progress Notes * Rosas Live MD - 06/17/2023 9:00 AM CDT Primary Care Physician: UNKNOWN PROVIDER Chief Complaint: Urinary retention __ ASSESSMENT AND PLAN: This is a 63 y.o. male with Urinary retention. The patient presents with urinary retention requiring catheter placement. Today, I had a long and candid discussion with the patient about the multifactorial etiology of urinary retention. The voiding reflex is a complex mechanism that relies on many signals relaying between the bladder, spinal cord, and brain. The voiding reflex can be altered by numerous causes including, but not limited to general or regional anesthesia, pain, narcotic pain medications, limited mobility, unfamiliar surroundings, dietary changes, constipation and indwelling catheters (this would be in the immediate postop setting). In the non operative setting, urinary retention cannot sometimes be due to an enlarged prostate in men, pelvic prolapse in women, urinary infection, obstructing stones, obstructing tumors. To optimize bladder emptying will ensure patient is on adequate medications: including tamsulosin to help with prostatic glandular relaxation. We did discuss risks of this medication including orthostatic hypotension. We discussed the importance of the patient making sure to stay supported when taking this medication initially. Can consider starting finasteride 5 mg p.o. q.day. Discussed side effects including decreased libido, gynecomastia, the theoretical increased risk of high-grade prostatecancer. With both of these medications, we discussed the risk of decreased ejaculate volume and sexual dysfunction (which may be permanent). Plan: 1. Will plan for cystoscopy for delineation of bladder and urethral anatomy. We will also continue Flomax and finasteride for now. He may start oxybutynin p.r.n. for bladder spasms he does have some discomfort from the Rubio catheter. Ultimately, he does need surgery for his outlet which either includes a TURP versus prostatic artery embolization versus HoLEP versus prostatectomy. If we were to consider a TURP, which would likely be a staged approach given how large his prostate is. We will plan for follow-up with cystoscopy and transrectal ultrasound. 2. P.r.n. oxybutynin, discussed side effects which include dry mouth, dry eyes, constipation, memory issues. __ History of Present Illness: Andrey Giron is a 63 y.o. male seen for the evaluation and managementof Urinary retention. The patient has a history of renal failure due to urinary retention. He presented with a creatinine of 13. Baseline creatinine was noted to be around 2. He would a CT scan done which showed bilateral hydronephrosis and distended bladder. He did have a follow-up renal ultrasound after catheter placement which showed mild hydronephrosis. He did have an episode of hematuria with clots. He had cystoscopy clot evacuation and fulguration of a median lobe. He has been discharged home with a Rubio catheter in place. He is on Flomax and finasteride. His prostate size was estimated to be 160 g. He would like to continue his Rubio catheter for now. The patient does have baseline urinary symptoms which manifest with Slow urinary stream, lack of pressure. He has no gross hematuria, dysuria, or UTIs at baseline. Past Medical History Positives Diagnosis Date ??? BPH (benign prostatic hyperplasia) ??? 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 Skin cancer Past Surgical History: Procedure Laterality Date ??? OTHER SURGICAL HISTORY N/A status post surgical removal of malignant neoplasm of skin ??? TONSILLECTOMY N/A Current Outpatient Medications Medication Sig Dispense Refill ??? cephALEXin (KEFLEX) 500 MG Capsule ??? ergocalciferol (VITAMIN D) 42412 UNIT Capsule ??? finasteride (PROSCAR) 5 MG Tablet ??? furosemide (LASIX) 40 MG Tablet ??? oxybutynin (DITROPAN-XL) 10 MG TABLET SR 24 HR Take 1 Tablet by mouth daily. 30 Tablet 3 ??? potassium chloride SA (KLORCON M) 20 MEQ Tablet Controlled Release ??? tamsulosin (FLOMAX) 0.4 MG Capsule No current facility-administered medications for this visit. No Known Allergies Social History Socioeconomic History ??? Marital status: Single Tobacco Use ??? Smoking status: Every Day Packs/day: 1.50 Years: 49.00 Pack years: 73.50 Types: Cigarettes ??? Smokeless tobacco: Never Vaping Use ??? Vaping Use: Never used Substance and Sexual Activity ??? Alcohol use: Never ??? Drug use: Never No family history on file. REVIEW OF SYSTEMS: As per the HPI. All other systems were reviewed and issues relevant to chief complaint are negative. The complete REVIEW OF SYSTEMS, MEDICATION LIST and DRUG ALLERGIES, PAST MEDICAL HISTORY, FAMILY MEDICAL HISTORY and SOCIAL HISTORY are documented in detail and were reviewed with the patient. The patient was asked to review all abnormal responses not pertinent to today's visit with their primary care physician. PHYSICAL EXAMINATION: Constitutional: General appearance: Well nourished, well developed male in no acute distress. Appears stated age Eyes: EOMI, no scleral icterus Neurologic: Normal mood and affect. Respiratory: Normal respiratory effort. No use of accessory muscles Cardiovascular: No lower extremity edema. Extremities well perfused. Ears, Nose, Throat, Mouth: midline trachea, no thryomegaly. Soft, supple appearing. Skin: Warm and dry. Gastrointestinal: No masses. No abdominal tenderness. No hepatosplenomegaly. Psychiatry: Normal mood, alert and oriented : Three-way Rubio catheter, clear yellow urine. Teaching was performed using illustrated anatomic diagrams and patient imaging. No impairments to patient comprehension were appreciated. All questions were answered to the patient's satisfaction. Thank you for allowing us to participate in your patient's care. documented in this encounter Plan of Treatment Not on file documented as of this encounter Visit Diagnoses Diagnosis Urinary retention- Primary Retention of urine, unspecified documented in this encounter Care Teams Grease Buffer Relationship Specialty Start Date End Date Provider, Unknown UNKNOWN PCP - General 06/17/23 Rosas Live MD [address] [place] [address] Consulting Physician Urology 06/17/23 documented as of this encounter
--- OUTSIDE RECORDS SUMMARY | 2024-09-24 06:05 | XMS_ITS | Encounter Summary ---
Author Organization [facility] Address [address] [place] [address] Care Team Providers Care Senior Sql Dba Name Role Phone None, Physician Primary Care Provider Unavailabl e Reason for Referral * Radiology Services (Routine) - Closed Specialty Diagnoses / Procedures Referred By Contac t Referred To Contact Positron Emission Tomography Diagnoses Lung nodule Procedures PET CT Skull To Mid Thigh Ben Mccormack MD [facility] 2L DIV OF PULMONARY/[place] [address] [facility] [address] [place] [address] Referral ID Status Reason Start Date Expiration Date Visits Re quested Visits Authorized [id number] Closed 04/23/2024 04/23/2025 1 1 Reason for Visit * Radiology Services (Routine) - Closed Specialty Diagnoses / Procedures Referred By Contac t Referred To Contact Positron Emission Tomography Diagnoses Lung nodule Procedures PET CT Skull To Mid Thigh Ben Mccormack MD [address] [facility] 2L DIV OF PULMONARY/[place] [address] [facility] [address] [place] [address] Referral ID Status Reason Start Date Expiration Date Visits Re quested Visits Authorized [id number] Closed 04/23/2024 04/23/2025 1 1 Encounter Details Date Type Department Care Team (Latest Contact Info) Description 05/07/2024 8:15 AM CDT - 05/07/2024 9:14 AM CDT Hospital Encounter [facility] PET [address] [place] [address] Ben Mccormack MD [address] [facility] 2L DIV OF PULMONARY/[place] [address] Discharge Disposition: Home or Self Care Social [...] Contact Info) Description 10/16/2024 1:30 PM SALES REPRESENTATIVE ADDING MACHINES Office Visit [facility] ENT [address] [facility], [place] [phone] Ritesh Mensah MD [address] [place] [address] 2L [place] [address] documented as of this encounter Procedures Procedure Name Priority Date/Time Associated Diagnosis Comments PET CT SKULL TO MID THIGH Routine 05/07/2024 11:03 AM CDT Lung nodule documented in this encounter Results * PET CT Skull To Mid Thigh [...] lymphadenopathy. > Dictated by Autumn Lin MD (Buildings And Grounds Coordinator) 05/07/2024 10:36 AM IJoey DO have personally [...] lymphadenopathy. > Dictated by Autumn Lin MD (Buildings And Grounds Coordinator) 05/07/2024 10:36 AM IJoey DO have personally reviewed and interpreted this examination/study. > Interpreting Provider: Joey Tubbs DO on 05/07/2024 12:46 PM Ben Mccormack MD [place] ORDERABLES documented in this encounter Visit Diagnoses Diagnosis Lung nodule Solitary pulmonary nodule documented in this encounter Care Teams Senior Sql Dba Relationship Specialty Start Date End Date None, Physician [address] [place] [address] PCP - General 04/10/24 documented as of this encounter
--- OUTSIDE RECORDS SUMMARY | 2024-09-24 06:05 | XMS_ITS | Encounter Summary ---
Author Organization [facility] Address [address] [facility] [place] [address] Care Team Providers Care Jet Dyeing Machine Operator Name Role Phone None, Physician Primary Care Provider Unavailabl e Reason for Visit * Reason Onset Date Comments Future Appointment 04/27/2024 2nd attempt Encounter Details Date Type Department Care Team (Late Contact Info) Description 04/27/2024 Telephone [facility] - ENT [address], [address] [place] [phone] Ritesh Mensah MD [address] [place] [address] [place] [address] Future Appointment (2nd attempt) Social History Tobacco Use Types Packs/Day Years Used Date Smoking Tobacco: Never Assessed Sex and Gender Information Value Date Recorded Sex Assigned at Not on file Gender Identity Not on file Sexual Orientation Not on file documented as of this encounter Miscellaneous Notes * Telephone Encounter - Ari Yu - 04/27/2024 9:07 AM CDT Called patient to schedule an appointment with Dr. Mensah- No answer, [facility] requesting a call back. documented in this encounter Plan of Treatment Upcoming Encounters Date Type Department Care Team (Late Contact Info) Description 10/16/2024 1:30 PM CASH ACCOUNTING CLERK Office Visit [facility] - ENT [facility] [facility], [place] [phone] Ritesh Mensah MD [address] DEPT [place] [address] documented as of this encounter Visit Diagnoses Not on filedocumented in this encounter Care Teams Jet Dyeing Machine Operator Relationship Specialty Start Date End Date None, Physician [address] [place] [address] PCP - General 04/10/24 documented as of this encounter
--- OUTSIDE RECORDS SUMMARY | 2024-09-24 06:05 | XMS_ITS | Encounter Summary ---
Author Organization [facility] Address [address] [place] [address] Care Team Providers Care Farm Products Shipper Name Role Phone None, Physician Primary Care Provider Unavailabl e Reason for Referral * Radiology Services (Routine) - Closed Specialty Diagnoses / Procedures Referred By Contac t Referred To Contact Positron Emission Tomography Diagnoses Lung nodule Procedures PET CT Skull To Mid Thigh Ben Mccormack MD [address] [place] [address] 2L DIV OF PULMONARY/[place] [address] [facility] [address] [place] [address] Referral ID Status Reason Start Date Expiration Date Visits Re quested Visits Authorized [id number] Closed 04/23/2024 04/23/2025 1 1 Encounter Details Date Type Department Care Team (Late st Contact Info) Description 04/18/2024 Orders Only [facility] - Pulmonology [address] [place] [address], [place] [phone] Ben Mccormack MD [address] [place] [address] 2L DIV OF PULMONARY/CRITICAL CARE [place], [place] [id number] Lung nodule Social History Tobacco Use Types Packs/Day Years Used Date Smoking Tobacco: Never Assessed Sex and Gender Information Value Date Recorded Sex Assigned at Not on file Gender Identity Not on file Sexual Orientation Not on file documented as of this encounter Plan of Treatment Upcoming Encounters Date Type Department Care Team (Late st Contact Info) Description 10/16/2024 1:30 PM CORRECTIONS CADET Office Visit [facility] - ENT [address] [facility], [place] [address] Ritesh Mensah MD [address] [place] [address] documented as of this encounter Results * PET CT Skull [...] lymphadenopathy. > Dictated by Autumn Lin MD (Custom Shoemaker) 05/07/2024 10:36 AM IJoey DO have personally [...] column are identified. Procedure Note Joey Tubbs, - 05/07/2024 PROCEDURE: PET CT SKULL TO [...] lymphadenopathy. > Dictated by Autumn Lin MD (Custom Shoemaker) 05/07/2024 10:36 AM Joey Posey DO have personally reviewed and interpreted this examination/study. > Interpreting Provider: Joey Tubbs DO on 05/07/2024 12:46 PM Ben Mccormack MD [place] ORDERABLES documented in this encounter Visit Diagnoses Diagnosis Lung nodule- Primary Solitary pulmonary nodule Lung nodule Solitary pulmonary nodule documented in this encounter Care Teams Farm Products Shipper Relationship Specialty Start Date End Date None, Physician [address] [place] [address] PCP - General 04/10/24 documented as of this encounter
--- OUTSIDE RECORDS SUMMARY | 2024-09-24 06:05 | XMS_ITS | Encounter Summary ---
Author Organization [facility] Address [address] [facility] [place] [address] Care Team Providers Care Electronic Warfare Operator Name Role Phone None, Physician Primary Care Provider Unavailabl e Encounter Details Date Type Department Care Team (Latest Contact Info) Description 04/17/2024 Travel Social History Tobacco Use Types Packs/Day Years Used Date Smoking Tobacco: Never Assessed Sex and Gender Information Value Date Recorded Sex Assigned at Not on file Gender Identity Not on file Sexual Orientation Not on file documented as of this encounter Plan of Treatment Upcoming Encounters Date Type Department Care Team (Late st Contact Info) Description 10/16/2024 1:30 PM PROTECTIVE OFFICER Office Visit [facility] [address] [facility], [place] [phone] Ritesh Mensah MD [facility] DE[place] [address] documented as of this encounter Visit Diagnoses Not on filedocumented in this encounter Care Teams Electronic Warfare Operator Relationship Specialty Start Date End Date None, Physician [address] [place] [address] PCP - General 04/10/24 documented as of this encounter
--- OUTSIDE RECORDS SUMMARY | 2024-09-24 06:05 | XMS_ITS | Encounter Summary ---
Author Organization [facility] Address [address] [address] Care Team Providers Care Electrician Sound Name Role Phone None, Physician Primary Care Provider Unavailabl e Reason for Referral * Consultation (Routine) - Open Specialty Diagnoses / Procedures Referred By Controssana t Referred To Contact Diagnoses Basal cell carcinoma of skin of nose Marlena Ballard MD [address] [place] [address] Referral ID Status Reason Start Date Expiration Date V isits Requested Visits Authorized [id number] Open Specialty Services Required 04/10/2024 04/10/2025 1 1 * Radiology Services (Routine) - Closed Specialty Diagnoses / Procedures Referred By Grace hathaway Referred To Contact CT Scan Diagnoses Basal cell carcinoma of skin of nose Procedures CT NECK SOFT TISSUE W CONT Marlena Ballard MD [address] [place] [address] [facility] [address] [place] [address] Referral ID Status Reason Start Date Expiration Date Visits Re quested Visits Authorized [id number] Closed 04/11/2024 04/11/2025 1 1 Reason for Visit * Reason Comments Consultation Left side of nose Encounter Details Date Type Department Care Team (Late st Contact Info) Description 04/10/2024 2:00 PM CDT Office Visit [facility] - Dermatology [address], [address] [place] [address] Marlena Ballard MD [address] [facility] [address] [place] [address] Basal cell carcinoma of skin of nose (Primary Dx) Social History Tobacco Use Types Packs/Day Years Used Date Smoking Tobacco: Never Assessed Sex and Gender Information Value Date Recorded Sex Assigned at Not on file Gender Identity Not on file Sexual Orientation Not on file documented as of this encounter Patient Instructions * Patient Instructions* Sienna Ramos MD - 04/10/2024 3:33 PM CDT Thank you for visiting [facility]! Please follow these instructions as we discussed today: 1) Imaging (CT neck with contrast) needs to be completed prior to surgery. CT scan is scheduled for10 AM on 04/17/24. Please check in by 9:30 AM. You need to register by 9:45 AM. Please go to the following address to have the CT scan completed: [address] [place] [address], [facility], [facility] [place]. You will need to have dialysis completed within [address] scan. documented in this encounter Progress Notes * Marlena Ballard MD - 04/18/2024 6:00 PM CDT I have seen and examined the patient with the resident and I agree with the findings and plan of care as documented by the resident. I independently reviewed the pathology report ordered by Pj, correlated the results with the patient's clinical presentation, and used this assessment to determine the patient's diagnosis of BCC left nasal sidewall, a new diagnosis with uncertain prognosis. I also used the pathology report to formulate the plan of further imaging followed by likely ENT removal and repair (minor procedure), with the following procedure and/or patient risk factors: kidney failure, smoking. I am worried that this tumor is recurrent from his last skin cancer surgery, which clinically presents as a large skin graft on his left cheek. The lesion today is adjacent to the medial aspect of his skin graft. The tumor is fixed, making sebastian invasion a concern and lymph node disease a concern, although I did not feel any lymph nodes clinically. He appears sickly, smokes, and is on dialysis. Milton not think he will be an easy surgical candidate, but his tumor will almost certainly require assistance from our surgeons. We will update the plan as we collect more information. Marlena Ballard MD 04/10/2024 * Sienna Ramos MD - 04/10/2024 3:19 PM CDT Mohs Consult Note Andrey Giron is a 63 year old male who is referred by Dr. Oliva for evaluation of a basal cellcarcinoma on the Left side of nose. Recurrent skin cancer: no Prior Treatment: none No past medical history on file. Current Outpatient Medications Medication [...] medications for this visit. No Known Allergies Pre-Operative Risk Factors: Current Anticoagulants: none Patient reports use of antibiotic for prior procedure: no Endocarditis / Rheumatic Fever hx: no Vascular graft: no Immunocompromised: no Prosthetic joint: no Congenital heart defect: no Prosthetic heart valve: no Diabetic: no Transplant: no Cardiac devices: Stent: no. Pacemaker: no. Defibrillator: no Transmissible Diseases: HIV no HepC yes N/A Patient reports prior problem with local anesthesia no Photoprotection never Sun segura more frequent when younger Tanning bed use never Tobacco use : yes Objective: Physical Exam: Limited skin exam is normal except for a crusted pearly plaque located on the Left side of nose. Pathologic Findings: Diagnosis: basal cell carcinoma Assessment and Plan: Treatment Options: The various treatment options for skin cancer removal were reviewed with the patient. These include Mohs surgery with its high cure rate, excision destructive treatment, radiation therapy, and various topical therapies. Given the indications and high cure rate, the patient has agreed to proceed with Mohs. Risks and Benefits: The rationale for Mohs was explained to the patient. The risks and benefits to therapy were discussed in detail. Specifically, the risks of infection, scarring, bleeding, dehiscence, hematoma, prolonged wound healing, incomplete removal, allergy to anesthesia, nerve injury, inability to clear the tumor, and recurrence were addressed. The treatment site was clearly identified and confirmed by the patient. Diagnosis: basal cell carcinoma, Left side of nose Plan: - obtain CT neck w/ contrast to evaluate for possible bone/soft tissue involvement. CT scan scheduled for 04/17 at 10 at [facility]. Patient counseled that dialysis must be completed within [address] scan w/ contrast (pt normally gets dialysis on MWF at 10 AM) - ENT referral placed due to likely need for ENT/Plastics repair following Mohs surgery - plan for Mohs micrographic surgery after imaging and ENT consult visit completed Indication for Mohs: Clinical area critical for tissue conservation (Area H: central face, eyelids,eyebrows, nose, lips, chin, ear, periauricular, spiritism, genitalia, hands, feet, ankles, nail units and areola) Proposed closure: transposition flap, repair likely to be completed by ENT/Plastic Surgery Indication for antibiotics: no Current Anticoagulants: none Sienna Ramos MD documented in this encounter Plan of Treatment Upcoming Encounters Date Type Department Care Team (Late st Contact Info) Description 10/16/2024 1:[address] REGISTRAR Office Visit [facility] - ENT [address] [place] [phone] Ritesh Mensah MD [address] [place] [address] [place] [address] Scheduled Referrals Name Type Priority Associated Diagnoses Order Schedule AMB REFERRAL TO ENT Outpatient Referral Routine Basal cell carcinoma of skin of nose 1 Occurrences starting 04/10/2024 until 04/10/2025 documented as of this encounter Results * CT NECK SOFT [...] report is dictated by Albino Malik, DO, ??(residential real estate assistant) IClay MD have personally reviewed and interpreted this examination/study. > Interpreting Provider: Clay Moss MD on 04/18/2024 4:54 PM Narrative 04/18/2024 4:54 PM CDT PROCEDURE: ??CT NECK SOFT TISSUE W CONT, DATE/TIME OF EXAM: ??04/17/2024 12:47 PM, LOCATION ??[facility] INDICATION: C44.311: Basal cell carcinoma of skin [...] complex resulting in at least mild or [id number] spinal canal stenosis. MRI of the cervical [...] SOFT TISSUE W CONT, DATE/TIME OF EXAM: :47 PM, LOCATION [facility] INDICATION: C44.311: Basal cell carcinoma of skin [...] complex resulting in at least mild or [id number]-[id number] spinal canal stenosis. MRI of the cervical [...] report is dictated by Albino Malik DO, (residential real estate assistant) IClay MD have personally reviewed and interpretedthis examination/study. > Interpreting Provider: Clay Moss MD on 04/18/2024 4:54 PM Marlena Ballard MD CT ORDERABLES documented in this encounter Visit Diagnoses Diagnosis Basal cell carcinoma of skin of nose- Primary Basal cell carcinoma of skin of other and unspecified parts of face Basal cell carcinoma of skin of nose Basal cell carcinoma of skin of other and unspecified parts of face documented in this encounter Care Teams Electrician Sound Relationship Specialty Start Date End Date None, Physician [address] [place] [address] PCP - General 04/10/24 documented as of this encounter
--- OUTSIDE RECORDS SUMMARY | 2024-09-24 06:05 | XMS_ITS | Encounter Summary ---
Author Organization [facility] Care Team Providers Care Teller Supervisor Name Role Phone Provider, Unknown Primary Care Provider Unavaila Rosas Baltazar MD Unavailable [phone] Encounter Details Date Type Department Care Team (Latest Contact Info) Description 07/08/2023 Travel Social History Tobacco Use Types Packs/Day [...] on filedocumented in this encounter Care Teams Teller Supervisor Relationship Specialty Start Date End Date Provider, Unknown UNKNOWN PCP - General 06/17/23 Rosas Live MD [address] [address] Consulting Physician Urology 06/17/23 documented as of this encounter
--- OUTSIDE RECORDS SUMMARY | 2024-09-24 06:05 | XMS_ITS | Encounter Summary ---
Author Organization [facility] Address [address] [place] [address] Care Team Providers Care Pick And Shovel Man Name Role Phone None, Physician Primary Care Provider Unavailabl e Reason for Visit * Reason Onset Date Comments Appointment 05/15/2024 Encounter Details Date Type Department Care Team (Late st Contact Info) Description 05/15/2024 Telephone [facility] - Dermatology [address], [facility] [address] [place] [address] Marlena Ballard MD [address] [facility] [address] DEPT OF DERMATOLOGY [place], [place] [id number] Appointment Social History Tobacco Use Types Packs/Day [...] * Telephone Encounter - Karthik Snider - 05/15/2024 2:15 PM CDT I notified [facility] ([facility]) that patient was seen by Dr. Ballard in consultationon 04/10/2024. After having imagine done, Dr. Ballard has referred the patient to Dr. Matteo Solano withENT with Dr. Aniket Mensah doing the reconstruction. Surgery dates are scheduled for 05/22/2024 with and 05/23/[address] Mensah. documented in this encounter Plan of Treatment Upcoming Encounters Date Type Department Care Team (Late st Contact Info) Description 10/16/2024 1:30 PM WEIGHTS AND MEASURES INSPECTOR Office Visit [facility] - [facility] [place] [address] Ritesh Mensah MD [address] [place] [address] [place] [address] documented as of this encounter Visit Diagnoses Not on filedocumented in this encounter Care Teams Pick And Shovel Man Relationship Specialty Start Date End Date None, Physician [address] [place] [address] PCP - General 04/10/24 documented as of this encounter
--- OUTSIDE RECORDS SUMMARY | 2024-09-24 06:05 | XMS_ITS | Encounter Summary ---
Author Organization [facility] Address [address] [place] [address] Phone Care Team Providers Care Journeyman Electrician Name Role Phone Provider, Unknown Primary Care Provider Unavaila ble Rosas Live MD Unavailable [phone] Reason for Visit * Reason Onset Date Comments OTHER 08/24/2023 Encounter Details Date Type Department Care Team (Late st Contact Info) Description 08/24/2023 Telephone [facility] [address] [place] [address] Rosas Live MD [address] [facility], [address] [address] OTHER Social History Tobacco Use Types Packs/Day [...] Encounter - King Johnston RMA - 08/24/2023 2:13 PM CST Unable to reach pt, lvm for pt to call back D SALES ASSOCIATE documented in this encounter Plan of Treatment Not on file documented as of this encounter Visit Diagnoses Not on filedocumented in this encounter Care Teams Journeyman Electrician Relationship Specialty Start Date End Date Provider, Unknown UNKNOWN PCP - General 06/17/23 Rosas Live MD [address] [facility], [address] [address] Consulting Physician Urology 06/17/23 documented as of this encounter
--- OUTSIDE RECORDS SUMMARY | 2024-09-24 06:05 | XMS_ITS | Encounter Summary ---
Author Organization [facility] Address [address] [place] [address] Care Team Providers Care Mailing Jogger Name Role Phone None, Physician Primary Care Provider Unavailabl e Reason for Visit * Auth/Cert (Routine) Specialty Diagnoses / Procedures Referred By Contac t Referred To Contact Diagnoses Basal cell carcinoma (BCC) of lateral side wall of nose Basal cell carcinoma (BCC) of lateral side wall of nose Procedures MI RECONSTR NOSE RHINOPLASTY Referral ID Status Reason Start Date Expiration Date Visits Re quested Visits Authorized [id number] 1 1 Encounter Details Date Type Department Care Team (Late st Contact Info) Description 05/23/2024 12:05 PM CDT - 05/23/2024 4:50 PM CDT Surgery [facility] [address] [place] [address] Ritesh Mensah MD [facility] DEPT [place] [address] RECONSTRUCTION LEFT NASAL/CHEEK DEFECT, WOUND DEBRIDEMENT, SKIN GRAFT Surgery Details Date/Time Status Location OR Service Patient Class Case Class Case Type Trauma Case? 05/23/2024 12:05 PM Posted [facility] OR OR 08 ENT Inpatient Elective > 5 days Panel 1 Procedure LRB Anes Op Region Wound Class Comments RECONSTRUCTION LEFT NASAL/CH [place] DEFECT, WOUND DEBRIDEMENT, SKIN GRAFT Left General Nose Clean Contaminated FOREHEAD FLAP N/A General Head Clean Contaminat ed Surgeon Surgeon Role Service Panel Irma Fung MD Resident - Assisting Plastics 1 Ritesh Mensah MD Primary ENT [address] [facility]- Contact: Barry [phone] Special Needs SUPINE 05/17 NT documented in this encounter Social History Tobacco [...] and heating? Not hard at all 05/23/2024 [facility] [place] of Occupat ional Health - Occupational Stress [...] Sign Reading Time Taken Comments Blood Pressure 92/73 05/23/2024 4:45 PM CDT Pulse 85 05/23/2024 4:45 PM CDT Temperature 37.2 ??C (98.9 ??F) 05/23/2024 4:35 PM CD T Respiratory Rate 14 05/23/2024 4:45 PM CDT Oxygen Saturation 92% 05/23/2024 4:45 PM CDT Inhaled Oxygen Concentration - - [...] 7:17 AM Andrey Giron 63 year old [id number] Admit Date: 05/22/2024 Discharge Date: 05/24/2024 Admitting [...] Your Medications These medications were sent to [facility], [facility] - [address] [facility] [address] [address] [facility] [address] oxyCODONE (immediate release) 5 MG tablet No [...] call: and ask for the ENT resident environmental officer. Jaswinder Romero MD Otolaryngology - Head [...] removed over 3.5h.. Pt to transfer from [facility] to Pre-procedural area. KOKI Lerma [...] 17 g Oral QDAY saline nasal spray (Throckmorton; Baby Desoto) 0.65 % nasal spray 1 spray 1 [...] for their review. Spoke with Sloane at [facility] and she was able to confirm patient's OP HD schedule Outpatient Clinic [facility] Days: MWF Time: 10:00am Doctor: Dr Verma Phone: 05/23/2024 1:47 PM Attempted to meet with patient in patient's room but patient was off the floor at this time Alexa Anderson Kidney Navigator/ [facility] Ascom: [phone] Office: [phone] * Dina Brown RN - 05/23/2024 6:20 [...] Access: Tunneled HD CVC - RIJ * Nuah Acuna RN - 05/23/2024 3:10 AM CDT [...] PM CDTAssociated Order(s): IP CONSULT TO NEPHROLOGY [facility] Department of Nephrology History & Physical Date [...] Urine: No Access: R-IJ Permcath Dialysis Center: [facility] Dialysis Days: MWF Dialysis Duration: 3 Hours 30 Minutes Last Dialysis: 05/21/2024 Research Worker Encyclopedia: Dr. Luci Bey MD Review of Systems: [...] Pulse: 79 76 79 73 Resp: 13 14 12 Temp: SpO2: 91% 91% [...] , DBILI , IBILI in the last 50877 hours. No results for input(s): KIMI , LIPASE in the last 27374 hours. No results for input(s): TSH in the last 68893 hours. Coagulation: No results for input(s): PT , INR , APTT in the last 24854 hours. Cardiac markers: No results for input(s): CKTOTAL , CKMB , TROPONINI in the last 46503 hours. ABG:No results for input(s): PHART , LBP6KIP , PO2ART , FKM6GBR , BASEEXCESS in the last 63794 hours. Invalid input(s): SO2ABG , FOHBABG IMAGING: XR Chest 1Vw Portable Result Date: 05/19/2024 IMPRESSION: 1.No pneumothorax or pleural effusion. 2.Spiculated nodule at the left lung apex is notwell-characterized on this exam. Report dictated by Albino Malik DO, (student services vice president). Augie Posey MD have personally reviewed and interpreted [...] ultrasound. > Dictated by Natalio Villeda MD, (student services vice president). Augie Posey MD have personally reviewed and interpreted [...] who has been admitted for surgery of [facility] by ENT. Nephrology consulted for HD needs. [...] REPORT NAME: Andrey Giron : 1960 CSN: [id number] DATE OF OPERATION: 05/23/2024 ATTENDING SURGEON: Ritesh Mensah MD Pre-Op Diagnosis: -Basal cell carcinoma, nose Post-Op Diagnosis: Same Procedure: -Reconstruction of nasal defect with forehead flap (CPT 77870) -Wound prep (CPT 09388) -Full thickness skin graft left cheek (CPT 64880) Operative findings: -Left nasal defect measuring 3.5cm x 3cm reconstructed with right paramedian forehead flap -Left medial cheek defect measuring 2.6cm x 1.2cm reconstructed with full thickness skin graft, taken from left neck Medical Billing And Coding Instructor Irma Fung MD Indications for procedure: Andrey [...] portions of the surgery. Ritesh Mensah MD Slip Dumper Facial Plastic and Reconstructive Surgery Otolaryngology- Head [...] st Contact Info) Description 10/16/2024 1:30 PM PRINCIPAL LAW CLERK Office Visit [facility] - ENT [address] [place] [phone] Ritesh Mensah MD [address] [place] [address] DEPT [place] [address] documented as of this encounter Procedures Procedure Name Priority Date/Time Associated Diagnosis Comments MI FOREHEAD FLAP W/ PRSRV VASC PEDICLE 05/23/2024 11:57 AM CDT Basal cell carcinoma (BCC) of left side of nose Case Notes Patient at [facility]- Contact: Barry [phone] Special Needs SUPINE 8 NT MI REPAIR NASAL CAVITY STENOSIS 05/23/2024 11:57 AM CDT Basal cell carcinoma (BCC) of left side of nose Case Notes Patient at [facility]- Contact: Barry [phone] Special Needs SUPINE 8 NT HEMODIALYSIS INPATIENT Routine 05/23/2024 10:44 AM [...] (BCC) of lateral side wall of nose BLOOD TYPE VERIFICATION Routine 05/22/2024 3:11 PM [...] ve Non-reacti ve 05/23/2024 8:40 AM CDT [facility] Blood BLOOD SPECIMEN / Unknown Venipuncture / Unknown 05/23/2024 7:24 AM CDT 05/23/2024 7:48 AM CDT Kimani Rivera MD LAB - CHEMISTRY NELDA TIPTON [facility] Organization Address City/State/ZIP Co de Phone Number [facility] [address] [address], [facility] [phone] * HEPATITIS B SURFACE ANTIBODY QUANT (05/23/2024 7:24 AM CDT) Hepatitis B Virus Surface Antibody 3.55 IU/L 05/25/2024 8:[address] [facility] ([facility]) Comment: The anti-HBs is less than 10 [...] Cellular and Tissue-Based Products (HCT/P). Performed By: [facility] Patient Conversation Media [address] [place] [address] Gravity Prospecting Observer: Mahendra Duron MD, PhD CLIA Number: [id number] Blood BLOOD SPECIMEN / Unknown Venipuncture / Unknown 05/23/2024 7:24 AM CDT 05/23/2024 8:06 AM CDT Kimani Rivera MD LAB - SEROLOGY ORDER ELSIE Performing Organization Address [facility]/ZIP Co de Phone Number [facility]) [address] [place] [address] * MAGNESIUM BLOOD (05/23/2024 7:24 AM CDT) Pathologist [facility] Magnesium 2.2 1.6 - 2.6 mg/dL 05/23/2024 8:18 AM CDT [facility] Blood BLOOD SPECIMEN / Unknown Venipuncture / Unknown 05/23/2024 7:24 AM CDT 05/23/2024 7:50 AM CDT Matteo Menezes MD LAB - CHEMISTRY NELDA TIPTON [facility] [address] [place] [address], [place] [phone] * ALBUMIN BLOOD (05/23/2024 7:24 AM CDT) [facility] Albumin 3.6 3.4 - 5.0 g/dL 05/23/2024 8:17 AM CDT [facility] Blood BLOOD SPECIMEN / Unknown Venipuncture / Unknown 05/23/2024 7:24 AM CDT 05/23/2024 7:50 AM CDT Matteo Menezes MD LAB - CHEMISTRY NELDA TIPTON [facility] [address] [place] [address], [facility] [phone] * (ABNORMAL) VITAMIN D 25-HYDROXY (05/23/2024 7:24 AM CDT) [facility] Vitamin D, 25 Hydroxy 22.4(L) 30.0 - 80.0 ng/mL 05/23/2024 8:35 AM CDT [facility] Comment: The recommendations for 25-Hydroxy Vitamin [...] - CHEMISTRY NELDA TIPTON Performing Organization Address City/[facility]/ZIP Co de Phone Number [address] [address], [facility] [phone] * (ABNORMAL) PHOSPHORUS BLOOD (05/23/2024 7:24 AM CDT) Phosphorus 6.9(H) 2.8 - 5.1 mg/dL 05/23/2024 8:18 AM T [facility] Blood BLOOD SPECIMEN / Unknown Venipuncture / Unknown 05/23/2024 7:24 AM CDT 05/23/2024 7:50 AM CDT Matteo Menezes MD LAB - CHEMISTRY NELDA TIPTON Performing Organization Address City/[facility]/ZIP Co de Phone Number [address] [address], [facility] [phone] * (ABNORMAL) BASIC METABOLIC PANEL (CALCIUM TOTAL) (05/23/2024 7:24 AM CDT) BUN 59(H) 7 - 26 mg/dL 05/23/2024 8:18 AM [facility] Creatinine 10.53(H) 0.71 - 1.16 mg/dL 05/23/2024 8:18 AM [facility] Sodium 138 136 - 145 mmol/L 05/23/2024 8:18 AM [facility] Potassium 4.4 3.5 - 4.5 mmol/L 05/23/2024 8:18 AM [facility] Chloride 105 98 - 107 mmol/L 05/23/2024 8:18 AM [facility] CO2 21(L) 22 - 29 mmol/L 05/23/2024 8:18 AM [facility] Glucose 108 70 - 115 mg/dL 05/23/2024 8:18 AM [facility] Calcium 8.6 8.4 - 10.2 mg/dL 05/23/2024 8:18 AM CDT [facility] Anion Gap 12 6 - 16 05/23/2024 8:18 AM CDT [facility] BUN/Creatinine Ratio 6(L) 7 - 23 05/23/2024 8:18 AM CDT [facility] Osmolality Calculated 303(H) 275 - 295 mOsm/kg 05/23/2024 8:18 AM CDT [facility] eGFR by CKD-EPI 5(L) >=90 mL/min/1.7 3 m2 05/23/2024 8:18 AM CDT [facility] Blood BLOOD SPECIMEN / Unknown Venipuncture / Unknown 05/23/2024 7:24 AM CDT 05/23/2024 7:50 AM CDT Matteo Menezes MD LAB - CHEMISTRY NELDA TIPTON Performing Organization Address City/State/[place] Co de Phone Number [facility] [address] [place] [phone], [facility] [phone] * PATHOLOGY TISSUE (05/22/2024 5:20 PM CDT) Case Report Surgical Pathology Report ? Case: [id number] ? Authorizing Provider: ??Matteo Menezes MD ?Collected: ? 05/22/2024 05:20 PM ? Ordering Location: ? [facility] ?Received: ?05/23/2024 04:42 AM ? Pathologist: ? Sunny Slade MD ? Specimens: ?? A) - Margin, Medial cheeck margin anterior margin ? B) - Margin, Canthus margin anterior margin ? C) - Tumor, Left rhinectomy stitch superior ? 4 1:35 PM [facility] Final Diagnosis Skin, [...] Skin with actinic changes 4 1:35 PM [facility] Microscopic Description and Comment Microscopic examination substantiates the final diagnosis. 4 1:35 PM [facility] Clinical History History of BCC 4 1:35 PM [facility] Intraoperative Consultation Medial [...] carcinoma by MD Clifford 4 1:35 PM CDT [facility] Gross Description The [...] inferior tip, trisected RB 4 1:35 PM CDT [facility] Pathologist Location at [facility] 4 1:35 PM CDT [facility] Disclaimer The performance characteristics of all immunohistochemical and indirect immunofluorescence stains (if any) cited in this report were determined by the Histopathology Laboratory of [facility]. Some of these tests were developed [...] attending (teaching) pathologist. 4 1:35 PM CDT [facility] Embedded Images 4 1:35 PM CDT [facility] Biopsy, Excision (Margin) 05/22/2024 5:20 [...] Menezes MD LAB - PATHOLOGY/CYTO LOGY ORDERABLES [facility] [address] [place] [address], [facility] [phone] * BLOOD TYPE VERIFICATION (05/22/2024 3:11 PM CDT) ABO Rh O POS 05/22/2024 3:5 5 PM CDT [facility] Blood Bank BLOOD SPECIMEN / Unknown Venipuncture / Unknown 05/22/2024 3:11 PM CDT 05/22/2024 3:21 PM CDT Matteo Menezes MD LAB - BLOOD BANK ORD ERABLES [facility] [address] [place] [phone], [facility] [phone] * TYPE + SCREEN PANEL (05/22/2024 2:54 PM CDT) Antibody Screen NEG 3:47 PM CDT [facility] ABO Rh O POS 05/22/2024 3:47 PM CDT [facility] Blood Bank BLOOD SPECIMEN / Unknown Venipuncture / Unknown 05/22/2024 2:54 PM CDT 05/22/2024 3:04 PM CDT Albino Bah MD LAB - BLOOD BANK ORD ERABLES [facility] [address] [place] [phone], [facility] [phone] * (ABNORMAL) BASIC METABOLIC PANEL (CALCIUM TOTAL) (05/22/2024 2:54 PM CDT) BUN 49(H) 7 - 26 mg/dL 05/22/2024 3:35 PM CDT [facility] Creatinine 9.55(H) 0.71 - 1.16 mg/dL 05/22/2024 3:35 PM CDT [facility] Sodium 136 136 - 145 mmol/L 05/22/2024 3:35 PM CDT [facility] Potassium 3.9 3.5 - 4.5 mmol/L 05/22/2024 3:35 PM CDT [facility] Chloride 104 98 - 107 mmol/L 05/22/2024 3:35 PM CDT [facility] CO2 21(L) 22 - 29 mmol/L 05/22/2024 3:35 PM [facility] Glucose 98 70 - 115 mg/dL 05/22/2024 3:35 PM [facility] Calcium 9.4 8.4 - 10.2 mg/dL 05/22/2024 3:35 PM [facility] Anion Gap 11 6 - 16 05/22/2024 3:35 PM [facility] BUN/Creatinine Ratio 5(L) 7 - 23 05/22/2024 3:35 PM [facility] Osmolality Calculated 295 275 - 295 mOsm/kg 05/22/2024 3:35 PM [facility] eGFR by CKD-EPI 6(L) >=90 mL/min/1.7 3 m2 05/22/2024 3:35 PM [facility] Blood BLOOD SPECIMEN / Unknown Venipuncture / Unknown 05/22/2024 2:54 PM CDT 05/22/2024 3:01 PM CDT Albino Bah MD LAB - CHEMISTRY ORDE [facility] Organization Address City/State/ZIP Co de Phone Number [facility] [address] [place] [address], [facility] [phone] * (ABNORMAL) CBC W AUTO DIFFERENTIAL (05/22/2024 2:54 PM CDT) WBC 8.1 4.0 - 10.7 x10E9/L 05/22/2024 3:10 PM [facility] RBC Count 3.53(L) 4.30 - 5.80 x10E12/L 05/22/2024 3:10 PM [facility] Hemoglobin 11.5(L) 13.3 - 17.5 g/dL 05/22/2024 3:10 PM [facility] Hematocrit 33.6(L) 38.7 - 51.1 % 05/22/2024 3:10 PM [facility] MCV 95.2 80.0 - 98.0 fL 05/22/2024 3:10 PM [facility] MCH 32.6 26.7 - 33.6 pg 05/22/2024 3:10 PM [facility] MCHC 34.2 31.7 - 36.3 g/dL 05/22/2024 3:10 PM [facility] RDW-CV 15.9(H) 11.3 - 14.8 % 05/22/2024 3:10 PM [facility] Platelet Count 198 150 - 420 x10E9/L 05/22/2024 3:10 PM [facility] MPV 9.6 7.8 - 11.4 fL 05/22/2024 3:10 PM [facility] Neutrophil % 70.8 41.0 - 74.0 % 05/22/2024 3:10 PM [facility] Lymphocyte % 19.4 17.0 - 47.0 % 05/22/2024 3:10 PM [facility] Monocyte % 6.8 3.0 - 11.0 % 05/22/2024 3:10 PM [facility] Eosinophil % 2.1 0.0 - 7.0 % 05/22/2024 3:10 PM [facility] Basophil % 0.7 0.0 - 1.6 % 05/22/2024 3:10 PM [facility] Immature Granulocytes % 0.2 0.0 - 1.0 % 05/22/2024 3:10 PM [facility] Neutrophil Absolute 5.76 1.60 - 7.50 x10E9/L 05/22/2024 3:10 PM [facility] Lymphocyte Absolute 1.58 1.00 - 4.40 x10E9/L 05/22/2024 3:10 PM [facility] Monocyte Absolute 0.55 0.15 - 1.00 x10E9/L 05/22/2024 3:10 PM [facility] Eosinophil Absolute 0.17 0.00 - 0.60 x10E9/L 05/22/2024 3:10 PM [facility] Basophil Absolute 0.06 0.00 - 0.13 x10E9/L 05/22/2024 3:10 PM [facility] Blood BLOOD SPECIMEN / Unknown Venipuncture / Unknown 05/22/2024 2:54 PM CDT 05/22/2024 3:04 PM CDT Albino Bah MD LAB - HEMATOLOGY ORD ERABLES [address] [address], [facility] [phone] documented in this encounter Visit Diagnoses Diagnosis Preop examination- Primary Preoperative examination, unspecified Basal cell carcinoma (BCC) of left nasal sidewall Basal cell carcinoma (BCC) of lateral side wall of nose Basal cell carcinoma (BCC) of left nasal sidewall Basal cell carcinoma (BCC) of left side of nose documented in this encounter Administered [...] mg bss ophthalmic solution PRN, Starting on Tue05/23/24 at 1515, Until Tue05/23/24 at 1538, Intra-op $ Given 05/23/2024 3:15 PM CDT 15 mL Left Eye finasteride (Proscar) tablet 5 mg 5 mg, [...] 11:07 AM CDT 4,800 Units lidocaine 1% (Xylocaine) - EPINEPHrine 1:100,000 injection PRN, Starting on Tue05/23/24 at 1300, Until Tue05/23/24 at 1538, Intra-op $ Given 05/23/2024 1:00 PM CDT 8 mL ondansetron (disintegrating) (Zofran ODT) tablet 4 mg [...] Until Tue05/24/24 at 1014 saline nasal spray (Throckmorton; Baby Desoto) 0.65 % nasal spray 1 spray 1 [...] HD then surgery)1813 ($ Given - Provider: Raym William RN) 0818 ($ Given - Provider: [...] Until Tue05/24/24 at 1014 saline nasal spray (Throckmorton; Baby Desoto) 0.65 % nasal spray 1 spray 1 [...] intake documented in this encounter Care Teams Mailing Jogger Relationship Specialty Start Date End Date None, Physician [address] [place] [address] PCP - General 04/10/24 documented as of this encounter
--- OUTSIDE RECORDS SUMMARY | 2024-09-24 06:05 | XMS_ITS | Encounter Summary ---
Author Organization [facility] Address [address] [facility] [facility] [place] [address] Care Team Providers Care Simulation Educator Name Role Phone None, Physician Primary Care Provider Unavailabl e Reason for Visit * Auth/Cert (Routine) Specialty Diagnoses / Procedures Referred By Contac t Referred To Contact Diagnoses Lung nodule Procedures CT CHEST WO CONT SUPER DIMENSION Referral ID Status Reason Start Date Expiration Date Visits Re quested Visits Authorized [id number] 1 1 Encounter Details Date Type Department Care Team (Late st Contact Info) Description 05/18/2024 2:25 PM CDT - 05/18/2024 4:55 PM CDT Surgery [facility] [address] [place] [id number] Ben Mccormack MD [address] [facility] 2L DIV OF PULMONARY/[place] [address] BRONCHOSCOPY WITH ROBOT ASSIST, BRONCHOALVEOLAR LAVAGE, TRANSBRONCHIAL BIOPSIES, AND BRUSHINGS Surgery Details Date/Time Status Location OR Service Patient Class Case Class Case Type Trauma Case? 05/18/2024 2:25 PM Posted [facility] Bronchoscopy OR Bronch Room Pulmonary Surgery Day Care Elective > 5 days Panel 1 Procedure LRB Anes Op Region Wound Class Comments BRONCHOSCOPY WITH ROBOT ASSIST, BRONCHOALVEOLAR LAVAGE, TRANSBRONCHIAL BIOPSIES, AND BRUSHINGS N/A General w/ETT NA bronchoscopic via ETT Surgeon Surgeon Role Service Panel Ben Mccormack MD Primary Pulmonary 1 Leon Quintero MD Fellow Pulmonar y 1 Special Needs Supine documented in this encounter Social History Tobacco Use Types Packs/Day Years Used Date Smoking Tobacco: Every Day Cigarettes Smokeless Tobacco: Never Alcohol Use Standard Drinks/Week Comments Not Currently 0 (1 standard drink = 0.6 oz pur e alcohol) AUDIT-C Answer Date Recorded Q1: How often do you have a drink containing alcohol? Never 05/18/2024 Q2: How many drinks containi ng alcohol do you have on a typical day when you are drinking? Patient does not drink Q3: How often do you have si x or more drinks on one occasion? Never 05/18/2024 Sex and Gender Information Value Date Recorded Sex Assigned at Not on file Gender Identity Not on file Sexual Orientation Not on file documented as of this encounter Last Filed Vital Signs Vital Sign Reading Time Taken Comments Blood Pressure 90/54 05/18/2024 4:45 PM CDT Pulse 75 05/18/2024 4:45 PM CDT Temperature 36.5 ??C (97.7 ??F) 05/18/2024 4:45 PM CD T Respiratory Rate 12 05/18/2024 4:45 PM CDT Oxygen Saturation 91% 05/18/2024 4:45 PM CDT Inhaled Oxygen Concentration 40% 05/18/2024 3 :45 PM CDT Weight 95.9 kg (211 lb 6.4 oz) 05/18/2024 12:04 PM CDT Height 172.7 cm (5' 8 ) 05/18/2024 12:04 PM CDT Body Mass Index 32.14 05/18/2024 12:04 PM CDT documented in this encounter Functional [...] No 05/18/2024 documented as of this encounter Medications at [...] 05/24/2024 07/21/2024 documented as of this encounter H&P Notes * Leon Quintero MD - 05/18/2024 11:57 AM CDT Images from the original note were not included. Pulmonary & Critical Care Fellow History and Physical Admission Date: 05/18/2024 Attending: Dr. Antoni Mccormack History of Present Illness: This is a a 63 years old male with h/o basal cell carcinoma, ESRD on HD, who was found to have about 2 x 2 cm MANISHA nodule. He presented today for elective bronchoscopy and biopsy Last meal: yesterday Blood thinners: none Allergies: none Review of Systems Constitutional: Negative. HENT: Negative. Respiratory: Negative. Cardiovascular: Negative. Gastrointestinal: Negative. Genitourinary: Negative. Musculoskeletal: Negative. Neurological: Negative. Psychiatric/Behavioral: Negative. History: Past Medical History: Diagnosis Date Basal cell carcinoma ESRD on dialysis (HCC) M/W/F History of blood transfusion Pertinent Summary of prior admission(s)/Care everywhere/ED visit/Clinic visit: up Past Surgical History: Procedure Laterality Date INSERTION DIALYSIS CATHETER Right tunneled IJ VASCULAR PROCEDURE/SURGERY 04/12/2024 CREATION ARTERIOVENOUS FISTULA No family history on file. Social History Occupational History Not on file Tobacco Use Smoking status: Every Day Packs/day: .5 Types: Cigarettes Smokeless tobacco: Never Vaping Use Vaping Use: Never used Substance and Sexual Activity Alcohol use: Not Currently Drug use: Never Sexual activity: Not on file Allergies to Medications and Reactions No Known Allergies Home Medications: Home medications reconciled No No current facility-administered medications on file prior [...] 1 (one) tablet by mouth once daily polyethylene glycol 3350 (Miralax) 17 g packet Take by mouth once daily sevelamer (Renagel) 800 MG tablet Take 2 (two) tablets by mouth 3 times daily with meals tamsulosin (Flomax) 0.4 MG capsule Take 1 (one) capsule by mouth once daily EXAMINATION There were no vitals filed for this visit. Physical Exam Vitals and nursing note reviewed. Constitutional: Appearance: Normal appearance. HENT: Head: Normocephalic and atraumatic. Nose: Nose normal. Mouth/Throat: Mouth: Mucous membranes are moist. Eyes: Extraocular Movements: Extraocular movements intact. Cardiovascular: Rate and Rhythm: Normal rate and regular rhythm. Pulses: Normal pulses. Heart sounds: Normal heart sounds. Pulmonary: Effort: Pulmonary effort is normal. Breath sounds: Normal breath sounds. Abdominal: General: Abdomen is flat. Bowel sounds are normal. Musculoskeletal: General: Normal range of motion. Cervical back: Normal range of motion and neck supple. Skin: General: Skin is warm. Neurological: General: No focal deficit present. Mental Status: He is alert. Mental status is at baseline. Labs: Labs are remarkable for the following: .No results for input(s): WBC , RBC , HGB , HCT , MCV , MCHC , PLTCOUNT , NEUTPCT , LYMPHPCT , MONOCYTPCT , EOSINPCT , BASOPHILPCT , GRANSIMMPCT , NEUTABS , LYMPHABS , MONOCYTABS , EOSINABS , BASOABS , IMMGRANSABS in the last 15014 hours. .No results for input(s): SODIUM , NA , POTASSIUM , CHLORIDE , CO2 , BUN , CREATININE , GLUCOSE , GLUCOSEFAST , CALCIUM , ALT , ALKPHOS , AST , TBIL , TPROT , GFR , EGFR , EGFRAFR , ALBUMIN in the last 55231 hours. Invalid input(s): ABL Micro: none Imaging: Imaging is summarized as below: ASSESSMENT/PLAN In short, this is a 63 years old male with h/o ESRD on HD, basal cell carcinoma, and MANISHA nodule Will proceed with robotic-assisted bronchoscopy, biopsy, and EBUS/TBNA Patient agreed and consented Leon Bell MD Pulmonary Diseases & Critical Care Fellow [facility], [facility] Pager - Amion Associated attestation - Ben Mccormack MD - 05/18/2024 2:20 PM CDT Agree with bronch. documented in this encounter OR Notes * Brief Op Note - Leon Quintero MD - 05/18/2024 2:47 PM CDT Bronchoscopy Procedure Note Location: Bronch suite Date of Operation: 05/18/2024 Pre-op Diagnosis: MANISHA nodule Post-op Diagnosis: same Surgeon: Leon Quintero MD Assistants: Antoni Mccormack MD Anesthesia: General endotracheal anesthesia Operation: Flexible fiberoptic bronchoscopy, diagnostic robotic assisted bronchoscopy and staging EBUS/TBNA Findings: airways are patent with tenacious secretions Then we navigated via ION robot to the MANISHA nodule, we confirmed location via radial EBUS, then we obtained multiple FNA cytology and cryo-biopsies. FLOWER at bedside confirmed atypical cells. Then we did staging EBUS, no significant hilar or mediastinal LN were identified. No samples were obtained. Specimen: FNA cytology and cryo biopsies Estimated Blood Loss: Minimal Complications: none, tolerated the procedure well Leon Bell MD Pulmonary Diseases & Critical Care Fellow [facility] Pager - Amion documented in this encounter Miscellaneous Notes * Clinical References AVS - Aicha Major, RN - 05/18/2024 4:39 PM CDT Images from the original note were not included. [id number] Flexible Bronchoscopy Flexible bronchoscopy is a procedure to examine the breathing airways. This test lets your healthcare provider see the inside of the airways and take tissue or mucus samples. The bronchoscope is a thin tube-shaped instrument. It's inserted through the nose or mouth. A camera at the end of the tube takes images which are then transmitted to a video screen. Before your test ?? Follow your healthcare provider's instructions carefully. If you don?t, the exam may be canceled. Or you may need to take it again. ?? You might need blood tests before the procedure. Follow instructions from your healthcare team and keep all appointments. ?? Ask your provider if you should stop taking certain medicines before this test, especially blood-thinning medicines ?? Follow any directions you're given for not eating or drinking before the test. ?? Don't smoke for 24 hours before the test. ?? You'll need to remove any dentures or removable devices from your mouth. ?? Right before the test, you will be given sedating medicines to help you relax. The medicine may be given by an IV (intravenously) into one of your veins. In addition, your nose and throat may be numbed with a special spray to help prevent gagging and coughing. ?? If you are having this test as an outpatient, make sure you have an adult friend or family member to drive you home. During your test Bronchoscopy takes 45 to 60 minutes and includes the following steps: ?? You may be given medicine (anesthesia) so that you are unconscious or asleep during the procedure. ?? The healthcare provider puts the tube into your nose or mouth. ?? If you haven't been given anesthesia, you might have a gagging feeling. To help ease this feeling, you will be told to swallow or take deep breaths. Your airway will remain open even with the tubein place. But you won?t be able to talk. ?? The provider checks your airway. They may also remove tiny tissue samples for a biopsy. After your test ?? You may have a mild sore throat or cough. Your voice may also be hoarse. ?? Don't eat or drink until the anesthesia wears off. ?? You might see very small amounts of blood being coughed up. When to call your healthcare provider Call your healthcare provider right away if you have any of these: ?? Bleeding from your nose or throat ?? Coughing up a large amount of blood ?? A fever above 100.4??F ( 38??C) for more than 24 hours, or as advised by your provider ?? New symptoms, symptoms that get worse, or symptoms that don't go away When to call 911 Call 911 right away if you have: ?? Chest pain ?? Severe shortness of breath or trouble breathing ?? Fast heart rate ?? Bluish-colored skin, lips, or mouth Last Reviewed Date: 2023 ?? 0533-2910 [employer]. All rights reserved. This information is not intended as a substitute for professional medical care. Always follow your healthcare professional's instructions. 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 WORKER APPRENTICE Office Visit [facility] - [facility]NT [address] [place] [phone] Ritesh Mensah MD [address] [place] [address] [place] [address] documented as of this encounter Procedures Procedure Name Priority Date/Time Associated Diagnosis Comments XR CHEST 1VW PORTABLE STAT 05/18/2024 4:37 PM CDT Lung nodule FINE NEEDLE ASPIRATION (STL) Routine 05/18/2024 3:25 PM CDT Lung nodule PATHOLOGY TISSUE Routine 05/18/2024 3:[address] chest CT SC NAVIGATIONAL BRONCHOSCOPY 05/18/2024 2:[address] chest CT Special Needs Supine BRONCHOSCOPY Routine 05/18/2024 2:12 PM CDT POTASSIUM WHOLE BLD STAT 05/18/2024 1 2:27 PM CDT Pre-op testing CT CHEST WO CONT SUPER DIMENSION Routine 05/18/2024 11:05 AM CDT Lung nodule documented in this encounter Results * XR Chest 1Vw Portable (05/18/2024 4:37 PM CDT) Anatomical Region Laterality Modality Chest Radiographic Haleigh ging 05/19/2024 8:37 AM CDT Impressions 05/19/2024 12:37 PM CDT IMPRESSION: 1.No pneumothorax or pleural effusion. 2.Spiculated nodule at the left lung apex is not well-characterized on this exam. Report dictated by Albino Malik DO, (anesthesiology resident). I, Augie Slater MD have personally reviewed and interpreted this examination/study. > Interpreting Provider: Augie Slater MD on 05/19/2024 12:37 PM Narrative 05/19/2024 12:37 PM CDT PROCEDURE: ??XR CHEST 1VW PORTABLE, DATE/TIME OF EXAM: ??05/18/2024 4:37 PM, LOCATION ??[facility] INDICATION: R91.1: Lung nodule ADDITIONAL CLINICAL INFORMATION: Ordering Provider Reason For Exam: ??post bronchoscopy and biopsy Technologist Note: ; Additional: None. COMPARISON: None. FINDINGS: *Right internal jugular approach dialysis catheter terminates within the right atrium. There is mild subsegmental atelectasis but no pleural effusion or pneumothorax. Hilar structures and pulmonary vascular lung markings appear within normal limits. ??The cardiomediastinal silhouette is normal. No displaced fractures identified. Procedure Note Augie Slater MD - 05/19/2024 PROCEDURE: XR CHEST 1VW PORTABLE, DATE/TIME OF EXAM: 05/18/2024 4:37PM, LOCATION [facility] INDICATION: R91.1: Lung nodule ADDITIONAL CLINICAL INFORMATION: Ordering Provider Reason For Exam: post bronchoscopy and biopsy Technologist Note: ; Additional: None. COMPARISON: None. FINDINGS: *Right internal jugular approach dialysis catheter terminates within the right atrium. There is mild subsegmental atelectasis but no pleural effusion or pneumothorax. Hilar structures and pulmonary vascular lung markingsappear within normal limits. The cardiomediastinal silhouette is normal. No displaced fractures identified. IMPRESSION: 1.No pneumothorax or pleural effusion. 2.Spiculated nodule at the left lung apex is not well-characterized onthis exam. Report dictated by Albino Malik DO, (anesthesiology resident). I, Augie Slater MD have personally reviewed and interpreted this examination/study. > Interpreting Provider: Augie Slater MD on 05/19/2024 12:37 PM Ben Mccormack MD DIAGNOSTIC IMAGING O RDERABLES * FINE NEEDLE ASPIRATION (STL) (05/18/2024 3:25 PM CDT) Case Report Medical Cytology Report ? Case: [id number] ? Authorizing Provider: ??Ben Mccormack MD ?Collected: ? 05/18/2024 03:25 PM ? Ordering Location: ? [facility] ? Received: ?05/22/2024 08:43 AM ? Pathologist: ? Rene Chavis MD ? Specimen: ?Lung, MANISHA ? 05/23/2024 5:14 PM [facility] Specimen Adequacy Adequate cellularity for evaluation. 05/23/2024 5:14 PM [facility] Final Diagnosis Lung, left upper lobe lesion, EBUS/FNA and touchprep: - Malignant cells present, compatible with non-small cell carcinoma, see comment 05/23/2024 5:14 PM [facility] Clinical History The patient is a 63 year-old male with history of basal cell carcinoma, ESRD on HD, who was found to have about 2 x 2 cm MANISHA nodule. 05/23/2024 5:14 PM [facility] Gross Description 1 pap stained smear, 1 diff quick smear, 1 diff quick touch prep and 45cc of slightly cloudy collection fluid from which 1 cell block is made. Lung, MANISHA lesion, EBUS/FNA: Episode 1: Pass 1-Rare atypical cells seen 15:05 Lung, MANISHA lesion, touch prep: -Malignant, favor non-small cell carcinoma Immediate interpretation by Dr. Antoni Chavis 05/23/2024 5:14 PM [facility] Microscopic Description The cell block material is insufficient for additional ancillary/molecular studies. Please also correlate with concurrent surgical pathology report ([id number]). 05/23/2024 5:14 PM [facility] Pathologist Location at [facility] 05/23/2024 5:14 PM [facility] Disclaimer The performance characteristics of all immunohistochemical and indirect immunofluorescence stains (if any) cited in this report were determined by the Histopathology Laboratory of [facility]. Some of these tests rely on the use of analyte-specific reagents and are subject to specific labeling requirements by the [place] Food and Drug Administration. Such tests were developed by the Histology Laboratory of [facility] and have not been cleared or approved [...] attending (teaching) pathologist. 05/23/2024 5:14 PM CDT [facility] Embedded Images 05/23/2024 5:14 PM CDT [facility] Pathology/Cytolo gy ENTIRE LUNG / Unknown Collection / Unknown 05/18/2024 3:25 PM CDT 05/22/2024 8:43 AM CDT Ben Mccormack MD LAB - PATHOLOGY/CYTO LOGY ORDERABLES [facility] [address] [place] [address], [facility] [phone] * PATHOLOGY TISSUE (05/18/2024 3:20 PM CDT) Case Report Surgical Pathology Report ? Case: [id number] ? Authorizing Provider: ??Ben Mccormack MD ?Collected: ? 05/18/2024 03:20 PM ? Ordering Location: ? [facility] ? Received: ?05/22/2024 08:26 AM ? Pathologist: ? Sunny Slade MD ? Specimen: ?Lung, Left Upper Lobe ? 05/23/2024 4:33 PM [facility] Final Diagnosis Left upper lung lobe, transbronchial biopsy (A): - Adenocarcinoma, moderately to poorly differentiated 05/23/2024 4:33 PM [facility] Microscopic Description and Comment Microscopic examination substantiates the final diagnosis. Immunostains show the tumor cells are positive for TTF-1 and CK7 while negative for p40. The findings are not entirely specific, but would be in keeping with a lung primary, 05/23/2024 4:33 PM [facility] Clinical History The patient is a 63 year-old male with history of basal cell carcinoma, ESRD on HD, who was found to have about 2 x 2 cm MANISHA nodule. 05/23/2024 4:33 PM [facility] Gross Description The requisition and specimen(s) are identified with the patient's name, Andrey Giron. Received in formalin, specimen A , are multiple worley-brown fragments of tissue, each measuring 0.2 x 0.2 x 0.1 cm and 0.9 x 0.7 x 0.2 cm in aggregate. The specimen is submitted in toto in cassette A1. MB 05/23/2024 4:33 PM [facility] Pathologist Location at [facility] 05/23/2024 4:33 PM [facility] Disclaimer The performance characteristics of all immunohistochemical and indirect immunofluorescence stains (if any) cited in this report were determined by the Histopathology Laboratory of [facility]. Some of these tests [...] interpreted by the attending (teaching) pathologist. 05/23/2024 4:33 PM CDT [facility] Embedded Images 05/23/2024 4:33 PM CDT [facility] Biopsy, Excision (Lung, Left Upper Lobe) 05/18/2024 3:20 PM CDT 05/22/2024 8:26 AM CDT Comment:Pre-op diagnosis: ABNORMAL CHEST CT Ben Mccormack MD LAB - PATHOLOGY/CYTO LOGY ORDERABLES Performing Organization Address City/State/[facility] Co de Phone Number [facility] [address] [place] [address], [facility] [phone] * BRONCHOSCOPY (05/18/2024 2:12 PM CDT) Report Endoscopy POC [facility] Advanced Diagnostic Bronchoscopy and Interventional Pulmonary Service __ _ Patient Name: Andrey Giron ?Procedure Date: 05/18/2024 2:12 PM Date of : 1960 ? Attending MD: Ben Mccormack MD, [id number] Age: 63 ? Room: Bronch Suite ? __ _ Providers: ?Ben Mccormack MD, Gonzalo Goddard RRT, Ciara De Souza ?FIRM ADMINISTRATOR, Leon Quintero (Fellow) Referring : ? Procedure: ?Bronchoscopy Indications: ?Left upper lobe [...] EBUS probe and obtained a(n) concentric ? [id number] image location relative to the lesion in [...] 2:12 PM Number of Addenda: 0 ? [facility] ? [address] [place] [address] [facility] 05/18/2024 2:12 PM CDT Ben Mccormack MD RESPIRATORY THERAPY ORDERABLES Performing Organization Address [facility] Co de Phone Number [facility] * POTASSIUM WHOLE BLD (05/18/2024 12:27 PM CDT) Potassium Whole Blood 4.5 3.5 - 5.5 mmol/L 05/18/2024 12:38 PM CDT [facility] Blood WHOLE BLOOD SPECIMEN / Unknown Venipuncture / Unknown 05/18/2024 12:27 PM CDT 05/18/2024 12:35 PM CDT Ben Mccormack MD LAB - CHEMISTRY NELDA TIPTON Performing Organization Address City/[facility]/ZIP Co de Phone Number [facility] [address] [place] [address] [phone] * CT Chest Wo Cont Super Dimension [...] ultrasound. > Dictated by Natalio Villeda MD, (anesthesiology resident). I, Augie Slater MD have personally reviewed and interpreted this examination/study. > Interpreting Provider: Augie Slater MD on 05/18/2024 3:21 PM Narrative 05/18/2024 3:21 PM CDT PROCEDURE: ??CT CHEST WO CONT SUPER DIMENSION, DATE/TIME OF EXAM: ??05/18/2024 11:28 AM, LOCATION ??[facility] INDICATION: R91.1: Lung nodule ADDITIONAL CLINICAL [...] DIMENSION, DATE/TIME OF EXAM:05/18/2024 11:28 AM, LOCATION [facility] INDICATION: R91.1: Lung nodule ADDITIONAL CLINICAL [...] ultrasound. > Dictated by Natalio Villeda MD, (anesthesiology resident). I, Augie Slater MD have personally reviewed and interpreted this examination/study. > Interpreting Provider: Augie Slater MD on 05/18/2024 3:21 PM Ben Mccormack MD CT ORDERABLES documented in this encounter Visit Diagnoses Diagnosis Abnormal chest CT Nonspecific (abnormal) findings on radiological and other examination of other intrathoracic organs Lung nodule- Primary Solitary pulmonary nodule Pre-op testing Preoperative examination, unspecified Abnormal chest CT Nonspecific (abnormal) findings on radiological and other examination of other intrathoracic organs documented in this encounter Administered Medications Inactive Administered Medications - up to 3 most recent administrations Medication Order [facility] Action Action Date Dose Rate Site 0.9% NaCl infusion at 20 mL/hr, Intravenous, PRE-OP CONTINUOUS, Starting on Tue05/18/24 at 1200, Until Tue05/18/24 at 1848, For Dialysis or Chronic Renal Failure patients. Use 500 ml bag and micro drip tubing, Pre-op acetaminophen (Tylenol) tablet 1,000 mg 1,000 mg, Oral, ONCE PRN, pain, 1 dose, Starting on Tue05/18/24 at 1546, Until Tue05/18/24 at 1848, For pain, if not given in OR if not given in last 6 hours. Patient preference for lesser PRN pain meds [...] unless patient cannot tolerate oral intake, PACU albuterol-ipratropium (Duo-Neb) nebulizer solution 3 mL 3 mL, Inhalation, POST-OP MULTIPLE, Starting on Tue05/18/24 at 1546, Until Tue05/18/24 at 1848, For wheezing. Notify anesthesia immediately., PACU $ Given 05/18/2024 3:54 PM CDT 3 mL dexAMETHasone (Decadron) injection 8 mg 8 mg, Intravenous, ONCE PRN, Nausea/Vomiting, 1 dose, Starting on Tue05/18/24 at 1546, Until Tue05/18/24 at 1848, Second choice, use if first choice was ineffective., PACU fentaNYL (PF) (Sublimaze) injection 25 mcg 25 mcg, Intravenous, EVERY 10 MIN PRN, Mild Pain, 4 doses, Starting on Tue05/18/24 at 1546, Until Tue05/18/24 at 1848, Maximum total of 4 doses. If patient [...] PRN, Moderate Pain, 4 doses, Starting on Tue05/18/24 at 1546, Until Tue05/18/24 at 1848, Maximum total of 4 doses. If patient [...] cannot tolerate oral intake, PACU $ Given 05/18/2024 4:05 PM CDT 50 mcg $ Given 05/18/2024 3:50 PM CDT 50 mcg hydrALAZINE (Apresoline) injection 5 mg 5 mg, Intravenous, POST-OP MULTIPLE, 4 doses, Starting on Tue05/18/24 at 1546, Until Tue05/18/24 at 1848, IV given slowly over 1 minute, up to 20 mg. Repeat 5 mg IV dose every 10-15 minutes for sustained hypertension SBP greater than 180, DBP greater than 100., PACU HYDROmorphone (Dilaudid) injection 0.5 mg 0.5 mg, Intravenous, EVERY 10 MIN PRN, Severe Pain, 4 doses, Starting on Tue05/18/24 at 1546, Until Tue05/18/24 at 1848, Maximum total of 4 doses If patient [...] 5 mg 5 mg, Intravenous, POST-OP MULTIPLE, 4 doses, Starting on Tue05/18/24 at 1546, Until Tue05/18/24 at 1848, IV given slowly over 1 minute up to 20 mg. Repeat every 10-15 minutes in 5 mg doses. Hold if heart rate is less than 60. Give for hypertension SBP greater than 180, DBP greater than 100., PACU lactated ringers infusion at 125 mL/hr, Intravenous, CONTINUOUS, Starting on Tue05/18/24 at 1600, Until Tue05/18/24 at 184, PACU naloxone (Narcan) injection 0.04 mg 0.04 mg, Intravenous, POST-OP MULTIPLE, Starting on Tue05/18/24 at 1546, Until Tue05/18/24 at 1848, If respirations are less than 8 per minute and O2 sat is less than 90%, bag/mask patient and notify anesthesia immediately. If directed to administer naloxone, dilute 0.4mg in 9mL normal saline for dilution of 0.04mg/mL. Administer 1mL over 30 seconds while observing the patient response and titrating to effect. If no response, continue IV naloxone at the same rate up to a total of 0.8 mg of diluted naloxone., PACU ondansetron (Zofran) injection 4 mg 4 mg, Intravenous, ONCE PRN, Nausea/Vomiting, 1 dose, Starting on Tue05/18/24 at 1546, Until Tue05/18/24 at 1848, First choice, PACU prochlorperazine (Compazine) injection 10 mg 10 mg, Intravenous, ONCE PRN, Nausea/Vomiting, 1 dose, Starting on Tue05/18/24 at 1546, Until Tue05/18/24 at 1848, Third choice, use if first and second choice was ineffective., PACU throat lozenge 1 lozenge 1 lozenge, Oral, EVERY 1 HOUR PRN, Sore Throat, Starting on Tue05/18/24 at 1546, Until Tue05/18/24 at 1848, PACU tranexamic acid (Cyklokapron) injection PRN, Starting on Tue05/18/24 at 1514, Until Tue05/18/24 at 1545, Intra-procedure (GI) $ Given 05/18/2024 3:14 PM CDT 50 mg See Comments documented in this encounter Active and Recently Administered Medications Times are shown in CDT. Scheduled Medication Order 05/16/2024 05/17/2024 05/18/2024 acetaminophen (Tylenol) tablet 1,000 mg 1,000 mg, Oral, PRE-OP ONCE, 1 dose, On Tue05/18/24 at 1200, Patient preference for lesser PRN pain meds [...] unless patient cannot tolerate oral intake, Pre-op 1200 (Due) albuterol-ipratropium (Duo-Neb) nebulizer solution 3 mL 3 mL, Inhalation, POST-OP MULTIPLE, Starting on Tue05/18/24 at 1546, Until Tue05/18/24 at 1848, For wheezing. Notify anesthesia immediately., PACU 1554 ($ Given - Prov ider: Catalina Paulino RN) hydrALAZINE (Apresoline) injection 5 mg 5 mg, Intravenous, POST-OP MULTIPLE, 4 doses, Starting on Tue05/18/24 at 1546, Until Tue05/18/24 at 1848, IV given slowly over 1 minute, up to 20 mg. Repeat 5 mg IV dose every 10-15 minutes for sustained hypertension SBP greater than 180, DBP greater than 100., PACU labetalol (Normodyne; Trandate) injection 5 mg 5 mg, Intravenous, POST-OP MULTIPLE, 4 doses, Starting on Tue05/18/24 at 1546, Until Tue05/18/24 at 1848, IV given slowly over 1 minute up to 20 mg. Repeat every 10-15 minutes in 5 mg doses. Hold if heart rate is less than 60. Give for hypertension SBP greater than 180, DBP greater than 100., PACU naloxone (Narcan) injection 0.04 mg 0.04 mg, Intravenous, POST-OP MULTIPLE, Starting on Tue05/18/24 at 1546, Until Tue05/18/24 at 1848, If respirations are less than 8 per minute and O2 sat is less than 90%, bag/mask patient and notify anesthesia immediately. If directed to administer naloxone, dilute 0.4mg in 9mL normal saline for dilution of 0.04mg/mL. Administer 1mL over 30 seconds while observing the patient response and titrating to effect. If no response, continue IV naloxone at the same rate up to a total of 0.8 mg of diluted naloxone., PACU Continuous Medication Order 05/16/2024 05/17/2024 05/18/2024 0.9% NaCl infusion at 20 mL/hr, Intravenous, PRE-OP CONTINUOUS, Starting on Tue05/18/24 at 1200, Until Tue05/18/24 at 1848, For Dialysis or Chronic Renal Failure patients. Use 500 ml bag and micro drip tubing, Pre-op 1200 (Due) lactated ringers infusion at 125 mL/hr, Intravenous, CONTINUOUS, Starting on Tue05/18/24 at 1600, Until Tue05/18/24 at 1848, PACU 1600 (Due) PRN Medication Order 05/16/2024 05/17/2024 05/18/2024 acetaminophen (Tylenol) tablet 1,000 mg 1,000 mg, Oral, ONCE PRN, pain, 1 dose, Starting on Tue05/18/24 at 1546, Until Tue05/18/24 at 1848, For pain, if not given in OR if not given in last 6 hours. Patient preference for lesser PRN pain meds [...] unless patient cannot tolerate oral intake, PACU dexAMETHasone (Decadron) injection 8 mg 8 mg, Intravenous, ONCE PRN, Nausea/Vomiting, 1 dose, Starting on Tue05/18/24 at 1546, Until Tue05/18/24 at 1848, Second choice, use if first choice was ineffective., PACU fentaNYL (PF) (Sublimaze) injection 25 mcg 25 mcg, Intravenous, EVERY 10 MIN PRN, Mild Pain, 4 doses, Starting on Tue05/18/24 at 1546, Until Tue05/18/24 at 1848, Maximum total of 4 doses. If patient [...] PRN, Moderate Pain, 4 doses, Starting on Tue05/18/24 at 1546, Until Tue05/18/24 at 1848, Maximum total of 4 doses. If patient [...] unless patient cannot tolerate oral intake, PACU 1550 ($ Given - Prov ider: Catalina Paulino, KOKI)1605 ($ Given - Provider: Catalina Paulino RN) HYDROmorphone (Dilaudid) injection 0.5 mg 0.5 mg, Intravenous, EVERY 10 MIN PRN, Severe Pain, 4 doses, Starting on Tue05/18/24 at 1546, Until Tue05/18/24 at 1848, Maximum total of 4 doses If patient [...] unless patient cannot tolerate oral intake, PACU ondansetron (Zofran) injection 4 mg 4 mg, Intravenous, ONCE PRN, Nausea/Vomiting, 1 dose, Starting on Tue05/18/24 at 1546, Until Tue05/18/24 at 1848, First choice, PACU prochlorperazine (Compazine) injection 10 mg 10 mg, Intravenous, ONCE PRN, Nausea/Vomiting, 1 dose, Starting on Tue05/18/24 at 1546, Until Tue05/18/24 at 1848, Third choice, use if first and second choice was ineffective., PACU throat lozenge 1 lozenge 1 lozenge, Oral, EVERY 1 HOUR PRN, Sore Throat, Starting on Tue05/18/24 at 1546, Until Tue05/18/24 at 1848, PACU tranexamic acid (Cyklokapron) injection (CANCELED) PRN, Starting on Tue05/18/24 at 1514, Until Tue05/18/24 at 1545, Intra-procedure (GI) 1514 ($ Given - Prov ider: Ben Mccormack MD - Comment: 2 ml solution of 10 mg Txa mixed with 10 ml sterile 0.9% NaCl) documented in this encounter Care Teams Simulation Educator Relationship Specialty Start Date End Date None, Physician [address] [place] [address] PCP - General 04/10/24 documented as of this encounter
--- OUTSIDE RECORDS SUMMARY | 2024-09-24 06:05 | XMS_ITS | Encounter Summary ---
Author Organization [facility] Address [address] [place] [address] Phone Care Team Providers Care Gas Mask Assembler Name Role Phone Provider, Unknown Primary Care Provider Unavaila Rosas Baltazar MD Unavailable [phone] Reason for Visit * Reason Comments Cysto/ TRUS Encounter Details Date Type Department Care Team (Late st Contact Info) Description 07/08/2023 10:45 AM CDT Procedure Visit [facility] [facility] [place] [address] Rosas Live MD #2 [facility], [address] [address] Urinary retention (Primary Dx) Discharge Disposition: Discharged [...] Sign Reading Time Taken Comments Blood Pressure 110/77 07/08/2023 11:08 AM CDT Pulse 108 07/08/2023 11:08 AM CDT Temperature - - Respiratory Rate 18 07/08/2023 11:08 AM CDT Oxygen Saturation 94% 07/08/2023 11:08 AM CDT Inhaled Oxygen Concentration - - Weight 86.2 kg (190 lb) 07/08/2023 11:08 AM CDT Height 172.7 cm (5' 8 ) 07/08/2023 11:08 AM CDT Body Mass Index 28.89 07/08/2023 11:08 AM CDT documented in this encounter Progress Notes * Rosas Live MD - 07/08/2023 10:45 AM [...] Plan: 1. Cystoscopy, transrectal ultrasound, exchange of Rubio catheter in the operating room for surgical [...] including pre-visit review of separately obtained history, [id number] interaction performing medically appropriate physical exam, patientcounseling/education, interpretation of diagnostic results, care coordination and documentation was23 minutes. documented in this encounter Plan of Treatment Not on file documented as of this encounter Visit Diagnoses Diagnosis Urinary retention- Primary Retention of urine, unspecified documented in this encounter Care Teams Gas Mask Assembler Relationship Specialty Start Date End Date Provider, Unknown UNKNOWN PCP - General 06/17/23 Rosas Live MD #[address] [address] Consulting Physician Urology 06/17/23 documented as of this encounter
--- OUTSIDE RECORDS SUMMARY | 2024-09-24 06:05 | XMS_ITS | Encounter Summary ---
Author Organization [facility] Address [address] [place] [address] Care Team Providers Care Guest Services Associate Name Role Phone None, Physician Primary Care Provider Unavailabl e Reason for Visit * Radiology Services (Routine) - Closed Specialty Diagnoses / Procedures Referred By Contac t Referred To Contact Positron Emission Tomography Diagnoses Lung nodule Procedures PET CT Skull To Mid Thigh Ben Mccormack MD [address] [facility] 2L DIV OF PULMONARY/[place] [address] [facility] Pet Op [address] [place] [address] Referral ID Status Reason Start Date Expiration Date Visits Re quested Visits Authorized [id number] Closed 04/23/2024 04/23/2025 1 1 Encounter Details Date Type Department Care Team (Latest Contact Info) Description 05/07/2024 9:15 AM CDT - 05/07/2024 11:59 PM T Hospital Encounter [facility] PET [address] [place] [phone] Ben Mccormack MD [address] [facility] 2L DIV OF PULMONARY/[place] [address] Discharge Disposition: Home or Self Care Social [...] st Contact Info) Description 10/16/2024 1:30 PM CAR AND YARD SUPERVISOR Office Visit [facility] - ENT [address] [place] [phone] Ritesh Mensah MD [address] [place] [address] [place] [address] documented as of this encounter Procedures Procedure Name Priority Date/Time Associated Diagnosis Comments PET CT SKULL TO MID THIGH Routine 05/07/2024 11:03 AM CDT Lung nodule GLUCOSE SCREEN - POCT (IP) [facility] STAT 05/07/2024 9:25 AM CDT documented in this encounter Results * GLUCOSE SCREEN - POCT (IP) [facility] (05/07/2024 9:25 AM CDT) Glucose WB/POC 95 70 - 115 mg/dL [facility] POCT TESTING Blood BLOOD SPECIMEN / Unknown 05/07/2024 9:25 AM CDT Ben Mccormack MD LAB - POINT OF CARE ORDERABLES [facility] POCT TESTING [address] [place] [address], [facility] [phone] documented in this encounter Visit Diagnoses Not on filedocumented in this encounter Administered Medications Inactive Administered Medications - up to 3 most recent administrations Medication Order MAR Action Action Date Dose Rate Site F-18 fludeoxyglucose (FDG) injection SOLN 8.83 millicurie 8.83 millicurie, Intravenous, ONCE, 1 dose, On 05/07/24 at 1015 $ Given 05/07/2024 9:27 AM CDT 8.83 millicuries documented in this encounter Care Teams Guest Services Associate Relationship Specialty Start Date End Date None, Physician [address] [place] [address] PCP - General 04/10/24 documented as of this encounter
--- OUTSIDE RECORDS SUMMARY | 2024-09-24 06:05 | XMS_ITS | Encounter Summary ---
Author Organization [facility] Address [address] [place] [address] Phone Care Team Providers Care Mobile Lounge Driver Name Role Phone Provider, Unknown Primary Care Provider Unavaila ble Rosas Live MD Unavailable [phone] Encounter Details Date Type Department Care Team (Late st Contact Info) Description 01/14/2024 Telephone [facility] [place] [address] Rosas Live MD #2 [facility], [address] [address] Social History Tobacco Use Types Packs/Day Years [...] encounter Miscellaneous Notes * Telephone Encounter - Irma Arzola - 02/21/2024 3:41 PM CDT Pt scheduled on 03/27/2024, That was as soon as the assisted could bring him. * Telephone Encounter - Irma Arzola - 02/20/2024 2:12 PM CDT Did this provider ever reach out to you? * Telephone Encounter - Irma Arzola - 02/10/2024 1:47 PM CDT Left message for provider to call you * Telephone Encounter - Irma Arzola - 02/06/2024 9:18 AM CDT Pt Assistant Basketball Coach is Dr. Verma at [facility] in [place]. Office number is [phone] Per staff the provider is in office Tuesday & Tuesday afternoon. Not sure if you would like me to give the office your number for him to call or if you wanted to call the office. Please advise * Telephone Encounter - Irma Arzola - 01/30/2024 9:15 AM CDT Unable to reach pt by phone * Telephone Encounter - Irma Arzola - 01/25/2024 10:13 AM CDT Unable to reach pt; he has phone restrictions to who calls him. * Telephone Encounter - Irma Arzola - 01/16/2024 1:51 PM CDT Unable to reach pt by phone, mailed letter. * Telephone Encounter - Rosas Live MD - 01/14/2024 8:37 PM CDT Can you please help get the patient's medical record technician name so I can discuss nephrostomy tube management with him. documented in this encounter Plan of Treatment Not on file documented as of this encounter Visit Diagnoses Not on filedocumented in this encounter Care Teams Mobile Lounge Driver Relationship Specialty Start Date End Date Provider, Unknown UNKNOWN PCP - General 06/17/23 Rosas Live MD #[address] [address] Consulting Physician Urology 06/17/23 documented as of this encounter
--- OUTSIDE RECORDS SUMMARY | 2024-09-24 06:05 | XMS_ITS | Encounter Summary ---
Author Organization [facility] Address [address] [place] [address] Care Team Providers Care Military Analyst Name Role Phone None, Physician Primary Care Provider Unavailabl e Reason for Referral * Radiology Services (Routine) - Closed Specialty Diagnoses / Procedures Referred By Contac t Referred To Contact CT Scan Diagnoses Lung nodule Procedures CT Chest [place] [address] [place] [address] 2L DIV OF PULMONARY/[place] [address] [facility] [address] [place] [address] Referral ID Status Reason Start Date Expiration Date Visits Re quested Visits Authorized [id number] Closed 04/23/2024 04/23/2025 1 1 Reason for Visit * Auth/Cert (Routine) Specialty Diagnoses / Procedures Referred By Contac t Referred To Contact Diagnoses Lung nodule Procedures CT CHEST WO CONT SUPER DIMENSION Referral ID Status Reason Start Date Expiration Date Visits Re quested Visits Authorized [id number] 1 1 Encounter Details Date Type Department Care Team (Latest Contact Info) Description 05/18/2024 11:25 AM CDT - 05/18/2024 5:48 PM CDT Hospital Encounter [facility] [address] [place] [phone] Ben Mccormack MD [address] [facility] 2L DIV OF PULMONARY/[place] [address] Laila Bazan MD [address] [place] [address] [facility] Rad[facility] Discharge Disposition: Group Home Facility Social History Tobacco Use Types Packs/Day Years [...] Sign Reading Time Taken Comments Blood Pressure 98/56 05/18/2024 5:17 PM CDT Pulse 72 05/18/2024 5:17 PM CDT Temperature 36.5 ??C (97.7 ??F) 05/18/2024 4:45 PM CD T Respiratory Rate 11 05/18/2024 5:17 PM CDT Oxygen Saturation 91% 05/18/2024 5:17 PM CDT Inhaled Oxygen Concentration 40% 05/18/2024 [...] , BASOABS , IMMGRANSABS in the last 98278 hours. .No results for input(s): SODIUM , NA , POTASSIUM , CHLORIDE , CO2 , BUN , CREATININE , GLUCOSE , GLUCOSEFAST , CALCIUM , ALT , ALKPHOS , AST , TBIL , TPROT , GFR , EGFR , EGFRAFR , ALBUMIN in the last 95330 hours. Invalid input(s): ABL Micro: none Imaging: Imaging is summarized as below: ASSESSMENT/PLAN In short, this is a 63 years old male with h/o ESRD on HD, basal cell carcinoma, and MANISHA nodule Will proceed with robotic-assisted bronchoscopy, biopsy, and EBUS/TBNA Patient agreed and consented Leon Bell MD Pulmonary Diseases & Critical Care Fellow [facility], [facility] Pager - Amion Associated attestation - [...] MD Pulmonary Diseases & Critical Care Fellow [employer], [facility] Pager - Amion documented in this encounter Miscellaneous Notes * Clinical References AVS - Aicha Major, RN - 05/18/2024 4:39 PM CDT Images from the original note were not included. [id number] Flexible Bronchoscopy Flexible bronchoscopy is a procedure [...] or mouth Last Reviewed Date: 2023 ?? [id number] [employer]. All rights reserved. This information is not intended as a substitute for professional medical care. Always follow your healthcare professional's instructions. documented in this encounter Plan of Treatment Upcoming Encounters Date Type Department Care Team (Late st Contact Info) Description 10/16/2024 1:30 PM CORRESPONDENT Office Visit [facility] - ENT [address] [place] [phone] Ritesh Mensah MD [address] [place] [address] [place] [address] documented as of this encounter Procedures Procedure Name Priority Date/Time Associated Diagnosis Comments XR CHEST 1VW PORTABLE STAT 05/18/2024 4:37 PM CDT Lung nodule FINE NEEDLE ASPIRATION (STL) Routine 05/18/2024 3:25 PM CDT Lung nodule PATHOLOGY TISSUE Routine 05/18/2024 3:[address] Ab[address] chest CT MS NAVIGATIONAL BRONCHOSCOPY 05/18/2024 2:17 PM CDT Abnormal [...] exam. Report dictated by Albino Malik DO, (president trust company). I, Augie Slater MD have personally reviewed and interpreted this examination/study. > Interpreting Provider: Augie Slater MD on 05/19/2024 12:37 PM Narrative 05/19/2024 12:37 PM CDT PROCEDURE: ??XR CHEST 1VW PORTABLE, DATE/TIME OF EXAM: ??05/18/2024 4:37 PM, LOCATION [facility] INDICATION: R91.1: Lung nodule ADDITIONAL CLINICAL [...] PORTABLE, DATE/TIME OF EXAM: 05/18/2024 4:37PM, LOCATION [facility] INDICATION: R91.1: Lung nodule ADDITIONAL CLINICAL [...] exam. Report dictated by Albino Malik DO, (president trust company). I, Augie Slater MD have personally reviewed and interpreted this examination/study. > Interpreting Provider: Augie Slater MD on 05/19/2024 12:37 PM Ben Mccormack MD DIAGNOSTIC IMAGING O RDERABLES * FINE NEEDLE ASPIRATION (STL) (05/18/2024 3:25 PM CDT) Case Report Medical Cytology Report ? Case: [id number] ? Authorizing Provider: ??Ben Mccormack MD ?Collected: ? 05/18/2024 03:25 PM ? Ordering Location: ? [facility] ? Received: ?05/22/2024 08:43 AM ? Pathologist: ? Rene Chavis MD ? Specimen: ?Lung, MANISHA ? 05[facility]23[facility]2024 5:[facility] Specimen Adequacy Adequate cellularity for evaluation. 05/23/2024 5:14 PM [facility] Final Diagnosis Lung, left upper lobe lesion, EBUS/FNA and touchprep: - Malignant cells present, compatible with non-small cell carcinoma, see comment 05/23/2024 5:14 PM [facility] Clinical History The patient is a 63 year-old male with history of basal cell carcinoma, ESRD on HD, who was found to have about 2 x 2 cm MANISHA nodule. 05/23/2024 5:14 PM [facility] Gross Description 1 pap stained smear, 1 diff quick smear, 1 diff quick touch prep and 45cc of slightly cloudy collection fluid from which 1 cell block is made. Lung, MANISHA lesion, EBUS/FNA: Episode 1: Pass 1-Rare atypical cells seen 15:05 Lung, MANISHA lesion, touch prep: -Malignant, favor non-small cell carcinoma Immediate interpretation by Dr. Antoni Chavis 05/23/2024 5:14 PM [facility] Microscopic Description The cell block material is insufficient for additional ancillary/molecular studies. Please also correlate with concurrent surgical pathology report ([id number]). 05/23/2024 5:14 PM [facility] Pathologist Location at [facility] 05/23/2024 5:14 PM [facility] Disclaimer The performance characteristics of all immunohistochemical and indirect immunofluorescence stains (if any) cited in this report were determined by the Histopathology Laboratory of [facility]. Some of these tests rely on the use of analyte-specific reagents and are subject to specific labeling requirements by the [place] Food and Drug Administration. Such tests were developed by the Histology Laboratory of [facility] and have not been cleared or [...] attending (teaching) pathologist. 05/23/2024 5:14 PM CDT [facility] Embedded Images 05/23/2024 5:14 PM CDT [facility] Pathology/Cytolo gy ENTIRE LUNG / Unknown Collection / Unknown 05/18/2024 3:25 PM CDT 05/22/2024 8:43 AM CDT Ben Mccormack MD LAB - PATHOLOGY/CYTO LOGY ORDERABLES Performing Organization Address [facility] Co de Phone Number [facility] [address] [phone] * PATHOLOGY TISSUE (05/18/2024 3:20 PM CDT) Case Report Surgical Pathology Report ? Case: [id number] ? Authorizing Provider: ??Ben Mccormack MD ?Collected: ? 05/18/2024 03:20 PM ? Ordering Location: ? [facility] ? Received: ?05/22/2024 08:26 AM ? Pathologist: ? Sunny Slade MD ? Specimen: ?Lung, Left Upper Lobe ? 05/23/2024 4:33 PM [facility] Final Diagnosis Left upper lung lobe, transbronchial biopsy (A): - Adenocarcinoma, moderately to poorly differentiated 05/23/2024 4:33 PM [facility] Microscopic Description and Comment Microscopic examination substantiates the final diagnosis. Immunostains show the tumor cells are positive for TTF-1 and CK7 while negative for p40. The findings are not entirely specific, but would be in keeping with a lung primary, 05/23/2024 4:33 PM [facility] Clinical History The patient is a 63 year-old male with history of basal cell carcinoma, ESRD on HD, who was found to have about 2 x 2 cm MANISHA nodule. 05/23/2024 4:33 PM [facility] Gross Description The requisition and specimen(s) are identified with the patient's name, Andrey Giron. Received in formalin, specimen A , are multiple worley-brown fragments of tissue, each measuring 0.2 x 0.2 x 0.1 cm and 0.9 x 0.7 x 0.2 cm in aggregate. The specimen is submitted in toto in cassette A1. MB 05/23/2024 4:33 PM [facility] Pathologist Location at [facility] 05/23/2024 4:33 PM [facility] Disclaimer The performance characteristics of all immunohistochemical and indirect immunofluorescence stains (if any) cited in this report were determined by the Histopathology Laboratory of [facility]. Some of these tests were developed [...] attending (teaching) pathologist. 05/23/2024 4:33 PM CDT [facility] Embedded Images 05/23/2024 4:33 PM CDT [facility] Biopsy, Excision (Lung, Left Upper Lobe) 05/18/2024 3:20 PM CDT 05/22/2024 8:26 AM CDT Comment:Pre-op diagnosis: ABNORMAL CHEST CT Ben Mccormack MD LAB - PATHOLOGY/CYTO LOGY ORDERABLES Performing Organization Address City/State/[facility] Co de Phone Number [facility] [address] [phone] * BRONCHOSCOPY (05/18/2024 2:12 PM CDT) Report Endoscopy POC [facility] Advanced Diagnostic Bronchoscopy and Interventional Pulmonary Service __ _ Patient Name: Andrey Giron ?Procedure Date: 05/18/2024 2:12 PM Date of : 1960 ? Attending MD: Ben Mccormack MD, [id number] Age: 63 ? Room: Bronch Suite ? __ _ Providers: ?Ben Mccormack MD, Gonzalo Goddard RRT, Ciara De Souza ?BRISEIDA, Leon Quintero (Fellow) Referring : ? Procedure: [...] EBUS probe and obtained a(n) concentric ? [id number] image location relative to the lesion in [...] 2:12 PM Number of Addenda: 0 ? [facility] ? [address] [place] [address] [facility] 05/18/2024 2:12 PM CDT Ben Mccormack MD RESPIRATORY THERAPY ORDERABLES [facility] * POTASSIUM WHOLE BLD (05/18/2024 12:27 PM CDT) Potassium Whole Blood 4.5 3.5 - 5.5 mmol/L 05/18/2024 12:38 PM CDT [facility] Blood WHOLE BLOOD SPECIMEN / Unknown Venipuncture / Unknown 05/18/2024 12:27 PM CDT 05/18/2024 12:35 PM CDT Ben Mccormack MD LAB - CHEMISTRY NELDA TIPTON [facility] [address] [place] [address], [facility] [phone] * CT Chest Wo Cont Super Dimension [...] ultrasound. > Dictated by Natalio Villeda MD, (president trust company). I, Augie Slater MD have personally reviewed and interpreted this examination/study. > Interpreting Provider: Augie Slater MD on 05/18/2024 3:21 PM Narrative 05/18/2024 3:21 PM CDT PROCEDURE: ??CT CHEST WO CONT SUPER DIMENSION, DATE/TIME OF EXAM: ??05/18/2024 11:28 AM, LOCATION ??[facility] INDICATION: R91.1: Lung nodule ADDITIONAL CLINICAL [...] DIMENSION, DATE/TIME OF EXAM:05/18/2024 11:28 AM, LOCATION [facility] INDICATION: R91.1: Lung nodule ADDITIONAL CLINICAL [...] ultrasound. > Dictated by Natalio Villeda MD, (president trust company). IAugie MD have personally reviewed and interpreted this examination/study. > Interpreting Provider: Augie Slater MD on 05/18/2024 3:21 PM Ben Mccormack MD CT ORDERABLES documented in this encounter Visit Diagnoses Diagnosis Lung nodule- Primary Solitary pulmonary nodule Pre-op [...] on Tue05/18/24 at 1546, Until Tue05/18/24 at 184, IV given slowly over 1 minute up to 20 mg. Repeat every 10-15 minutes in 5 mg doses. Hold if heart rate is less than 60. Give for hypertension SBP greater than 180, DBP greater than 100., PACU lactated ringers infusion at 125 mL/hr, Intravenous, CONTINUOUS, Starting on Tue05/18/24 at 1600, Until Tue05/18/24 at 1848, PACU naloxone (Narcan) injection 0.04 mg 0.04 [...] at 1546, Until Tue05/18/24 at 1848, PACU documented in this encounter Active and Recently [...] NaCl) documented in this encounter Care Teams Military Analyst Relationship Specialty Start Date End Date None, Physician [address] [place] [address] PCP - General 04/10/24 documented as of this encounter
--- OUTSIDE RECORDS SUMMARY | 2024-09-24 06:05 | XMS_ITS | Encounter Summary ---
Author Organization [facility] Address [address] [place] [address] Care Team Providers Care Lead Trainer Name Role Phone None, Physician Primary Care Provider Unavailabl e Reason for Visit * Reason Onset Date Comments Future Appointment 04/25/2024 Requested pam ointment Encounter Details Date Type Department Care Team (Late Contact Info) Description 04/25/2024 Telephone [facility] - ENT [address] , [address] [phone] Ritesh Mensah MD [address] [place] [address] DEPT OF OTOLARYNGOLOGY [place], [place] [id number] Future Appointment (Requested appointment) Social History Tobacco Use Types Packs/Day Years Used Date Smoking Tobacco: Never Assessed Sex and Gender Information Value Date Recorded Sex Assigned at Not on file Gender Identity Not on file Sexual Orientation Not on file documented as of this encounter Miscellaneous Notes * Telephone Encounter - Ari Yu - 04/25/2024 3:41 PM CDT Called patient to schedule a consultation with Dr. Mensah per provider request regarding nasal recon.No answer, M requesting a call back. documented in this encounter Plan of Treatment Upcoming Encounters Date Type Department Care Team (Late Contact Info) Description 10/16/2024 1:30 PM SALES TRAINER Office Visit [facility] - ENT [address] [place] [address], [place] [phone] Ritesh Mensah MD [address] [place] [address] documented as of this encounter Visit Diagnoses Not on filedocumented in this encounter Care Teams Lead Trainer Relationship Specialty Start Date End Date None, Physician [address] [place] [address] PCP - General 04/10/24 documented as of this encounter
--- OUTSIDE RECORDS SUMMARY | 2024-09-24 06:05 | XMS_ITS | Encounter Summary ---
Author Organization [facility] Address [address] [place] [address] Phone Care Team Providers Care Frame Gate Mortiser Operator Name Role Phone Provider, Unknown Primary Care Provider Unavaila ble Rosas Parkinson MD Unavailable [phone] Reason for Visit * Auth/Cert (Routine) Specialty Diagnoses / Procedures Referred By Grace hathaway Referred To Contact Diagnoses URINARY RETENTION Procedures CYSTOSCOPY FLEXIBLE INSERTION,REMOVAL,OR EXCHANGE CHILDS CATHETER TRANSANAL ULTRASOUND Rosas Parkinson MD [address] [facility] [address] [place] [address] Phone: tel: fax: Referral ID Status Reason Start Date Expiration Date Visits Re quested Visits Authorized [id number] 1 1 Encounter Details Date Type Department Care Team (Late st Contact Info) Description 07/15/2023 2:04 PM CDT Anesthesia Event [facility] [address] [place] [phone] Good Garcia APRN, CRNA Sidwell, Benjamin J, APRN, NUVIA [address] [place] [id number] Anesthesia Record Procedure Summary Procedure Name Responsible Anesthesiologist Anesthesia Start Time Anesthesia Stop Time FLEXIBLE CYSTOSCOPY (Urethra) Good Garcia APRN, CRNA 07/15/23 1404 07/15/23 1425 Events Date Time Event Comment 07/15/2023 1226 1404 An Start 1404 An Start Data 1404 ANASSESSCMPLT 1404 Start Supplemental O2 1404 Anesthesia Ready 1422 Stop Supplemental O2 1422 Stop Data Collection 1422 Transort to Postop 1425 Handoff to RN I completed my SBAR handoff to the receiving nurse. Last vitals BP: 135/90 Temp: 36.6 ??C (97.9 ??F) Pulse: 83 Resp: 16 SpO2: 94 % 1425 An Stop Last vitals: BP : 135/90 Temp: 36.6 ??C (97.9 ??F) Pulse: 83 Resp: 16 SpO2: 94 % Meds Name Total propofol 10 mg/mL 250 mg midazolam (VERSED) injection 1 mg/mL 2 m g lidocaine 1 % 50 mg fentaNYL 50 mcg/mL 100 mcg ondansetron 4 mg/2 mL 4 mg ceFAZolin 2 g 2 g lactated ringers infusion 0 mL * Agents Name FiO2 (%) FexpO2 (%) Inspired CO2 (mmHg) ETCO2 (mmHg) Inspired N2O (%) N2O (%) * Blood No blood administrations on file. Lines, Drains, and Airways Type Details Placement Removal Urethral Catheter Placement Date: 07/15/23; Placement Time: 1410; Inserted by: DR PARKINSON; Type: Coude; Size: 20 Fr.; Balloon Size: 10 mL; Urine Returned: Yes 07/15/23 1410 by Maria Guadalupe Gaytan RN Surgical Site Through Body Orifice 07/15/23; 1412; Urethra 07/15/23 1412 by Maria Guadalupe Gaytan RN Surgical Site Through Body Orifice 07/15/23; 1418; Rectum 07/15/23 1418 by Maria Guadalupe Gaytan RN PIV-Single Lumen Placement Date: 07/15/23; Placement Time: 1245; Catheter Size: 20 G; Orientation: Left, Posterior; Location: Hand; Site Prep: Alcohol; Local Anesth: None; Technique: Anatomical landmarks; Inserted by: Antoni Larson RN; Insertion Attempts: 1; Patient Tolerance: Tolerated well; Removal Date: 07/15/23; Removal Time: 1545; Removal Reason: Per order 07/15/23 1245 by Catalina Ely RN 07/15/23 1545 by Eedl Larson RN documented in this encounter Social History [...] PM CDT documented as of this encounter OR Notes * Anesthesia Postprocedure Evaluation - Good Garcia APRN, CRNA - 07/15/2023 2:25 PM CDT Patient: Andrey Giron Procedure Summary Date: 07/15/23 Room / Location: [facility] Anesthesia Start: 1404 Anesthesia Stop: 1425 Procedures: FLEXIBLE CYSTOSCOPY (Urethra) CHILDS CATHETER EXCHANGE (Bladder) TRANSRECTAL ULTRASOUND (Anus) Diagnosis: (URINARY RETENTION) Surgeons: Rosas Parkinson MD Responsible Provider: Good Garcia APRN, CRNA Anesthesia Type: MAC ASA Status: 3 Anesthesia Type: MAC Last vitals Vitals Value Taken Time BP 97/66 Temp Pulse 78 Resp 14 SpO2 97 Pain score: 0 Pain management: adequate Patient location during evaluation: PACU Patient participation: Sufficiently recovered to participate Level of consciousness: awake Cardiovascular status: acceptable Respiratory status: acceptable Hydration status: acceptable Comments: Report to RN. See VS on nursing flowsheet. Anesthetic complications: no Nausea and Vomiting: none * Anesthesia Preprocedure Evaluation - Pieter Villegas DO - 07/15/2023 12:26 PM CDT Anesthesia Evaluation Procedure Information Date/Time: 07/15/23 1340 Procedures: FLEXIBLE CYSTOSCOPY CHILDS CATHETER EXCHANGE TRANSRECTAL ULTRASOUND, MACHINE FROM OFFICE, NO BIOPSIES, LEAVE ON CART Location: [facility] Surgeons: Rosas Parkinson MD Patient summary reviewed and Nursing notes reviewed No history of anesthetic complications No family history of anesthesia reaction Allergies: No Known Allergies Patient allergies reviewed. Medications: Current Facility-Administered Medications: ??? ceFAZolin (ANCEF) injection 2 g, 2 g, Intravenous, Once, Rosas Parkinson MD ??? lactated ringers infusion, , Intravenous, Continuous, Rosas Parkinson MD Medications Prior to Admission: acetaminophen (TYLENOL) 500 MG Tablet, Take by mouth every 8 hours as needed., Disp: , Rfl: Albuterol Sulfate, sensor, 108 (90 Base) MCG/ACT AEROSOL POWDER, BREATH ACTIVATED, take 2 Puffs by inhalation 4 times daily as needed., Disp: , Rfl: cephALEXin (KEFLEX) 500 MG Capsule, , Disp: , Rfl: ergocalciferol (VITAMIN D) 11249 UNIT Capsule, Take 1.25 mg by mouth once a week. ON FRIDAYS, Disp:, Rfl: finasteride (PROSCAR) 5 MG Tablet, Take 5 mg by mouth daily., Disp: , Rfl: furosemide (LASIX) 40 MG Tablet, Take 60 mg by mouth daily., Disp: , Rfl: HYDROcodone-Acetaminophen 5-300 MG Tablet, Take 1 Tablet by mouth every 8 hours as needed., Disp: ,Rfl: ondansetron (ZOFRAN-ODT) 4 MG TABLET DISPERSIBLE, Take 4 mg by mouth every 6 hours as needed., Disp: , Rfl: oxybutynin (DITROPAN-XL) 10 MG TABLET SR 24 HR, Take 1 Tablet by mouth daily., Disp: 30 Tablet, Rfl: 3 potassium chloride SA (KLORCON M) 20 MEQ Tablet Controlled Release, Take 20 mEq by mouth every other day., Disp: , Rfl: tamsulosin (FLOMAX) 0.4 MG Capsule, Take 0.4 mg by mouth every morning., Disp: , Rfl: Patient medications reviewed. Airway Mallampati: II TM distance: >3 FB Neck ROM: full Dental Pulmonary - normal exam (+) COPD, Cardiovascular - normal exam Neuro/Psych GI/Hepatic/Renal (+) chronic renal disease (HX ARF) ARF, Comments: BPH Stones Endo/Other Comments: Skin ca Risks, benefits, alternatives discussed with:patient. Anesthesia Plan ASA 3 MAC intravenous induction Anesthetic plan and risks discussed with Patient. Plan discussed with surgeon. documented in this encounter Plan of Treatment Not on file documented as of this encounter Visit Diagnoses Not on filedocumented in this encounter Administered Medications Inactive Administered Medications - up to 3 most recent administrations Medication Order MAR Action Action Date Dose Rate Site ceFAZolin (ANCEF) 2 g/20 mL IV syringe Intravenous, ONCE (in OR), Starting on Tue07/15/23 at 1407, Until Tue07/15/23 at 1425, Administer over 5 Minutes Given 07/15/2023 2:07 PM CDT 2 g fentaNYL (PF) (SUBLIMAZE) injection Intravenous, ONCE (in OR), Starting on Tue07/15/23 at 1404, Until Tue07/15/23 at 1425 Given 07/15/2023 2:04 PM CDT 100 mcg lidocaine 1 % injection Intravenous, ONCE (in OR), Starting on Tue07/15/23 at 1406, Until Tue07/15/23 at 1425 Given 07/15/2023 2:06 PM CDT 50 mg midazolam (VERSED) injection Intravenous, ONCE (in OR), Starting on Tue07/15/23 at 1404, Until Tue07/15/23 at 1425 Given 07/15/2023 2:04 PM CDT 2 mg ondansetron (ZOFRAN) injection Intravenous, ONCE (in OR), Starting on Tue07/15/23 at 1420, Until Tue07/15/23 at 1425 Given 07/15/2023 2:20 PM CDT 4 mg propofol (DIPRIVAN) injection Intravenous, ONCE (in OR), Starting on Tue07/15/23 at 1406, Until Tue07/15/23 at 1425 Given 07/15/2023 2:18 PM CDT 25 mg Given 07/15/2023 2:14 PM CDT 25 mg Given 07/15/2023 2:12 PM CDT 50 mg documented in this encounter Care Teams Frame Gate Mortiser Operator Relationship Specialty Start Date End Date Provider, Unknown UNKNOWN PCP - General 06/17/23 Rosas Parkinson MD [address] [address] Consulting Physician Urology 06/17/23 documented as of this encounter
--- OUTSIDE RECORDS SUMMARY | 2024-09-24 06:05 | XMS_ITS | Encounter Summary ---
Author Organization [facility] Address [address] [place] [address] Care Team Providers Care Wirer Passenger Car Name Role Phone None, Physician Primary Care Provider Unavailabl e Reason for Visit * Reason Onset Date Comments Surgery Scheduling 05/08/2024 Encounter Details Date Type Department Care Team (Late Contact Info) Description 05/08/2024 Telephone [facility] [address] [place] [address] [phone] September Surgery Scheduling Social History Tobacco Use Types Packs/Day Years Used Date Smoking Tobacco: Never Assessed Sex and Gender Information Value Date Recorded Sex Assigned at Not on file Gender Identity Not on file Sexual Orientation Not on file documented as of this encounter Miscellaneous Notes * Telephone Encounter - [place] - 05/08/2024 9:22 AM CDT Lvm 05/08/24 9:22am to schedule surgery w/Massa on September documented in this encounter Plan of Treatment Upcoming Encounters Date Type Department Care Team (Late Contact Info) Description 10/16/2024 1:30 PM BARTENDER HELPER Office Visit [facility] [address] [place] [address] [phone] Ritesh Mensah MD [address] [place] [address] [place] [address] documented as of this encounter Visit Diagnoses Not on filedocumented in this encounter Care Teams Wirer Passenger Car Relationship Specialty Start Date End Date None, Physician [address] [place] [address] PCP - General 04/10/24 documented as of this encounter
--- OUTSIDE RECORDS SUMMARY | 2024-09-24 06:06 | XMS_ITS ---
Author Organization [facility] Address [address] [place] [address] Care Team Providers Care Validation Software Facilitator Name Role Phone Tawanda Kelley MD Primary Care Provider [phone] Sotero Verma MD Unavailable [phone] Lizbeth Sánchez RN Unavailable [phone] Transplant Episode Kidney Candidate [facility] ([place], [place]) - [facility] Referred on 05/10/2024 Marked as Ineligible on 05/29/2024 Reason: Financial / Insurance Considerations Kidney CoordinatorLizbeth Sánchez RN Email: N/A Scores Score Value Updated Exceptions/Reas ons CPRA Not available EPTS (Calc) 39 09/24/2024 Care Team Name Role Phone Fax Email Lizbeth Sánchez RN Kidney Coordinator [phone] N/A Nara Casanova Superintendent Horticulture [phone] N/A N/A Sotero Verma MD Referring Physician [phone] N/A Scarlett Guillaume Primary Workers Compensation Analyst N/A N/A N/A Events Pre-Transplant Referred: 05/10/2024 Dialysis History Dialysis History Start End Type Comments Center In-center Hemodialysis [facility] Dialysis [facility] Information Center Phone Fax Address [facility] [phone] [place] [id number]
--- OUTSIDE RECORDS SUMMARY | 2024-09-24 06:06 | XMS_ITS | Encounter Summary ---
Author Organization [facility] Healthcare Address [address] [place] [address] Care Team Providers Care Commissioner Public Works Name Role Phone Tawanda Kelley MD Primary Care Provider [phone] Reason for Visit * Auth/Cert Specialty Diagnoses / Procedures Referred By Contac t Referred To Contact Diagnoses ESRD (end stage renal disease) on dialysis (HCC) ESRD (end stage renal disease) on dialysis (HCC) [N18.6, Z99.2] Procedures PA CRTJ ARVEN FSTL XCP DIR ARVEN ANAST NONAUTOG GRF CREATION ARTERIOVENOUS FISTULA - ARM Referral ID Status Reason Start Date Expiration Date Visits Re quested Visits Authorized [id number] 1 1 Encounter Details Date Type Department Care Team (Latest Contact Info) Description 04/12/2024 6:05 AM CDT - 04/12/2024 11:28 AM CDT Hospital Encounter [facility] Operating Room [address] [place] [address] Brendan Bui MD [id number] [place] [address] ESRD (end stage renal disease) on dialysis (HCC) (Primary Dx) Discharge Disposition: Discharge to intermediate facility Social History Tobacco Use Types Packs/Day Years Used Date Smoking Tobacco: Former Cigarettes Smokeless Tobacco: Never Tobacco Cessation:Counseling Given: Not Answered AUDIT-C Answer Date Recorded Q1: How often do you have a drink containing alcohol? Never 03/30/2024 Q2: How many drinks containi ng alcohol do you have on a typical day when you are drinking? Patient does not drink Q3: How often do you have si x or more drinks on one occasion? Never 03/30/2024 Personal Safety Answer Date Recorded Have you ever been in or are you currently in a harmful physical or emotional relationship or is someone making you feel afraid or unsafe? 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 Gender Identity Not on file Sexual Orientation Not on file documented as of this encounter Last Filed Vital Signs Vital Sign Reading Time Taken Comments Blood Pressure 102/58 04/12/2024 11:00 AM CDT Pulse 87 04/12/2024 11:00 AM CDT Temperature 36.5 ??C (97.7 ??F) 04/12/2024 11:20 AM C DT Respiratory Rate 13 04/12/2024 11:00 AM CDT Oxygen Saturation 96% 04/12/2024 11:00 AM CDT Inhaled Oxygen Concentration - - Weight 96.2 kg (212 lb) 03/30/2024 8:35 AM CDT Height 172.7 cm (5' 8 ) 03/30/2024 8:35 AM CDT Body Mass Index 32.23 03/30/2024 8:35 AM CDT documented in this encounter Discharge Instructions * Attachments The following attachments cannot be sent through Care Everywhere. * Skin Adhesive Care (Discharge Care) (Brazilian) * [facility] PATHWAY TO EXCELLENT CARE AFTER SURGERY documented in this encounter Medications at Time of Discharge aluminum-magnesium hydroxide suspension 200-200 mg/5 mL Take 5 mL by mouth every 6 (six) hours as needed for heartburn diphenhydrAMINE 25 mg capsule Take 1 tablet/capsule (25 mg total) by mouth every 6 (six) hours as needed for itching oxyCODONE (ROXICODONE) 5 mg immediate release tabletIndications:Pain Take 1 tablet (5 mg total) by mouth every 4 (four) hours as needed for pain 5 tablet 4 polyethylene glycol (MIRALAX) 17 gram packetIndications:cons tipation Take 1 packet (17 g total) by mouth as needed for constipation sevelamer (RENAGEL) 800 mg tabletIndications:Vanesa l Osteodystrophy with Hyperphosphatemia Take 2 tablets (1,600 mg total) by mouth 3 (three) times a day with meals 4 sulfamethoxazole-trime thoprim (BACTRIM DS) 800-160 mg per tabletIndications:Prop hylaxis, Medical,Urinary Tract/Genitourinary Infection Take 1 tablet (160 mg of trimethoprim total) by mouth 2 (two) times a day 4 tamsulosin (FLOMAX) 0.4 mg extended release capsuleIndications:cassius ign prostatic hyperplasia with lower urinary tract sx Take 1 capsule (0.4 mg total) by mouth continuity writer before breakfast 3 acetaminophen (TYLENOL) 500 mg tablet Take 2 tablets (1,000 mg total) by mouth every 8 (eight) hours for 7 days 42 tablet 4 04/19/20 24 documented as of this encounter Ordered Prescriptions Prescription Sig Dispense Quantity Refills Last Filled Start Date End Date oxyCODONE (ROXICODONE) 5 mg immediate release tabletIndications: Pain Take 1 tablet (5 mg total) by mouth every 4 (four) hours as needed for pain 5 tablet 04/12/2024 acetaminophen (TYLENOL) 500 mg tablet Take 2 tablets (1,000 mg total) by mouth every 8 (eight) hours for 7 days 42 tablet 04/12/2024 4 acetaminophen (TYLENOL) 500 mg tablet Take 2 tablets (1,000 mg total) by mouth every 8 (eight) hours for 7 days 42 tablet 04/12/2024 4 documented in this encounter Discharge Disposition Disposition Code Departure Means Destination Comment s Discharge to intermediate facility [facility] ([place], [place]) documented in this encounter H&P Notes * Jo Barron MD - 04/12/2024 6:34 AM CDT I have reviewed the H&P, examined the patient, and endorse the findings as written. Plan of Care : Based on the above findings, I consider Andrey Giron to be an acceptable risk for : Procedure(s): CREATION ARTERIOVENOUS FISTULA - ARM Cosigned by Brendan Bui MD at 04/12/2024 7:30 AM CDT Source Note - Brendan Bui MD - 03/13/2024 8:[address] 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 I have personally taken a history, examined the patient and determined the assessment and plan as outlined below. History of Present Illness: Patient is a 63 y.o. male and has a history of obstructive nephropathy and ESRD on HD via right tunneled line M/W/F who presents for fistula placement. He is left handed and prefers access in the right arm. He has never had any other central lines that he can recall or pacemaker. He does not have ahistory of PAD. Previous Vascular Surgery Interventions: None Problem List: There is no problem list on file for this patient. Past Medical History: No past medical history on file. Past Surgical History: No past surgical history on file. Family History: No family history on file. Social History: Social History Tobacco Use Smoking status: Not on file Smokeless tobacco: Not on file Substance and Sexual Activity Drug use: Not on file Sexual activity: Not on file Alcohol Use: Not on file Allergies: Allergies as of 03/13/2024 (No Known Allergies) Current Medications: No current outpatient medications on file. Review of Systems: The patient???s vascular health history form was reviewed and signed by me dated 03/13/2024 The form was scanned into Media. Physical Examination: Vitals BP 129/80 Pulse 90 Ht 172.7 cm (5' 8 ) Wt 96.2 kg (212 lb) SpO2 98% BMI 32.23 kg/m?? General: alert, cooperative, NAD HEENT: normocephalic, atraumatic Neck: trachea midline Heart: regular rate Pulmonary: non-labored breathing Abdomen: soft, non-tender, non-distended Neuro: no focal deficits Extremities: wwp, RUE with palpable radial and brachial pulses Vascular Studies: I have reviewed the results for HD access vein mapping: Measurements: Right - Left - Measurement Value Units Measurement Value Units Rt Axillary Vein Diameter 0.90 cm Lt Axillary Vein Diameter 0.62 cm Rt Prox Brachial Vein D. 1 0.54 cm Lt Prox Brachial Vein D. 1 0.61 cm Rt Prox Brachial Vein D. 2 0.51 cm Lt Prox Brachial Vein D. 2 0.47 cm Rt Mid Brachial Vein D. 1 0.30 cm Lt Mid Brachial Vein D. 1 0.40 cm Rt Mid Brachial Vein D. 2 0.20 cm Lt Mid Brachial Vein D. 2 0.19 cm Rt Dist Brachial Vein D. 1 0.23 cm Lt Dist Brachial Vein D. 1 0.35 cm Rt Dist Brachial Vein D. 2 0.27 cm Lt Dist Brachial Vein D. 2 0.25 cm Rt Cephalic Vein Zone 1 0.42 cm Lt Cephalic Vein Zone 1 0.36 cm Rt Cephalic Vein Zone 2 0.43 cm Lt Cephalic Vein Zone 2 0.39 cm Rt Cephalic Vein Zone 3 0.41 cm Lt Cephalic Vein Zone 3 0.43 cm Rt Cephalic Vein Zone 4 0.42 cm Lt Cephalic Vein Zone 4 0.35 cm Rt Cephalic Vein Zone 5 0.40 cm Lt Cephalic Vein Zone 5 0.35 cm Rt Cephalic Vein Zone 6 0.36 cm Lt Cephalic Vein Zone 6 0.23 cm Rt Cephalic Vein Zone 7 0.37 cm Lt Cephalic Vein Zone 7 0.23 cm Rt Basilic Vein Zone 1 0.32 cm Lt Basilic Vein Zone 1 0.39 cm Rt Basilic Vein Zone 2 0.46 cm Lt Basilic Vein Zone 2 0.43 cm Rt Basilic Vein Zone 3 0.39 cm Lt Basilic Vein Zone 3 0.38 cm Rt Basilic Vein Zone 4 0.36 cm Lt Basilic Vein Zone 4 0.38 cm Rt Basilic Vein Zone 5 0.22 cm Lt Basilic Vein Zone 5 0.27 cm Rt Basilic Vein Zone 6 0.30 cm Lt Basilic Vein Zone 6 0.24 cm Rt Basilic Vein Zone 7 0.25 cm Lt Basilic Vein Zone 7 0.21 cm Measurement Value Units Measurement Value Units Right - Left - - FINDINGS: Performing Rounding And Backing Machine Operator: Rossi Medina RVT. Bilateral: Venous Doppler signals in the bilateral upper extremities are within normal limits for spontaneity and phasicity; normal response to compression maneuvers. Duplex imaging of bilateral cephalic and basilic veins reveals the cross-sectional measurements noted above. No evidence of superficial vein thrombus. CONCLUSIONS: 1. No evidence of acute deep vein thrombosis bilaterally in the upper extremities. 2. Duplex imaging of bilateral cephalic and basilic veins reveals the cross-sectional measurements noted above. No evidence of superficial vein thrombus. Assessment and Plan: 63 y.o. male with ESRD on HD MWF who presents for HD access placement. Plan for right radial-cephalic AVF as he is left handed. Thank you for the opportunity to participate in the care of this patient. Please do not hesitate tocontact me with any additional questions or concerns. Brendan Bui MD 03/13/2024 8:42 AM documented in this encounter Miscellaneous Notes * Perioperative Nursing Note - Kat Lopes RN - 04/12/2024 11:15 AM CDT Called nurse Melanie and skilled facility and gave her report. Melanie and patient verbalized understanding of instructions. * Op Note - Brendan Bui MD - 04/12/2024 8:27 AM CDT Vascular Surgery Operative Note Patient name: Andrey Giron Date of : 1960 Pre-operative diagnosis: ESRD Post-operative diagnosis: ESRD Procedure date: 04/12/2024 Procedure performed: Right radial-cephalic AVF Findings: Artery and vein of appropriate size. Reasonable thrill in fistula on completion. Excellent doppler signal Surgeon: Brendan Bui MD Trainee(s): Beatrice AGUILERA Anesthesia: General Fluids: See Epic record Blood products: None Estimated blood loss: minimal Urine output: no gutiérrez Complications: none Specimens: none Disposition/Condition: recovery room, good Indications for Operation: 63M with ESRD on HD via right tunneled line who presents for durable HD access placement. His studies demonstrate appropriate anatomy for right radial-cephalic AVF as he is left handed. I reviewed the risks and benefits and he requested that we proceed. Procedure in Detail: After informed consent was obtained, the patient was brought back to the operating room and placed supine on the OR table. General anesthesia was initiated. The patient had no pre-operative regional block. Preoperative antibiotics were given. A timeout was performed. The patient was sterilely prepped and draped. Attention was then turned to the patient's right arm. The radial artery and cephalic vein had been marked with ultrasound pre-operatively. A longitudinal incision was made between thesetwo structures. The subcutaneous tissue was divided with cautery. We first dissected the cephalic vein free circumferentially and encircled it with a vessel loop. We next turned our attention to the radial artery which was circumferentially dissected free from surrounding tissue with blunt and sharp dissection and encircled with vessel loops proximally and distally. Satisfied with our exposure, we clamped the radial artery proximally and distally. A longitudinal arteriotomy was created with a [place] blade and extended with pott's scissors. Local heparin was instilled. The cephalic vein was clamped centrally, marked for orientation and divided distally after ligating with 3-0 silk tie. The vein was gently dilated with a mosquito clamp and the vein was spatulated for anastomosis. We then cre ated an end to side anastomosis in standard running fashion with 7-0 prolene suture. All vessels were flushed prior to completion and flow was restored to the hand. A nicely palpable thrill developedin the fistula. Radial doppler signal remained appropriate distal to our anastomosis. Doppler signals were excellent throughout. All needle, sponge, and instrument counts were correct, the patient was hemostatic on conclusion and awoke from anesthesia without incident. I was present for the entire procedure. The patient was transported to PACU in stable condition. Brendan Bui MD 04/12/2024 2:08 PM * Brief Op Note - Jo Barron MD - 04/12/2024 8:27 AM CDT Operative Progress Note Surgical Team: Surgeons and Role: * Brendan Bui MD - Primary * Jo Barron MD - Assisting Anesthesiologist: Conrad Luther MD PhD PUBLIC SPEAKING PROFESSOR: Rizwana Cisse CRNA Student Nurse Pond Tender: Matty Dinero Financial Advisor Trainee: Abigail Sargent RN; Shira King, KOKI Scrub: Ladi Lozada ST DATE OF SURGERY : 04/12/2024 Preoperative Diagnosis: Pre-op Diagnosis * ESRD (end stage renal disease) on dialysis (HCC) [N18.6, Z99.2] Postoperative Diagnosis: Post-op Diagnosis * ESRD (end stage renal disease) on dialysis (HCC) [N18.6, Z99.2] Procedure(s): Procedure(s) (LRB): CREATION ARTERIOVENOUS FISTULA - ARM (Right) Operative Findings: Right radiocephalic AV fistula created. Estimated Blood Loss: 10 mL Intraoperative Fluids: 400 mls Specimens: No specimen collected in procedure Implants: Nothing was implanted during the procedure Blood/Blood Products Transfused: 0 mls Complications: None Condition on Discharge from the operating room was stable Jo Barron MD Date: 04/12/2024 Time: 9:47 AM Cosigned by Brendan Bui MD at 04/12/2024 11:05 AM CDT * Pre-Procedure Instructions - Nieves Espinal NP - 04/04/2024 6:52 PM CDT [facility] for Preoperative Assessment and Planning CPAP Clinic Location: [facility] The night before your surgery: * Do not eat anything after midnight the night before your procedure. The morning of your surgery: * You may have clear liquids on your surgery day. You must stop drinking two hours before you arrive to the surgery facility. Acceptable clear liquids include water, clear sports drinks, black coffee, tea, or clear soda. DO NOT drink any milk, creamer, or alcohol. * Your surgeon's office may have provided additional instructions or restrictions. Please follow those instructions. * You may brush your teeth and rinse your mouth out. * Do not glue your dentures. * Do not wear jewelry, body piercings, makeup, hairpins, false eyelashes or contact lenses to the hospital. * Leave any valuables at home or with your family. * If you have an implantable device with a remote, bring the remote with you on the day of surgery. * If having surgery at [facility], you may want to bring a credit card if you want to use our Mobile Pharmacy for your discharge medications. Mobile pharmacy is not available at [facility], the Orthopedic Center, or the [place] [facility]. Outpatient Surgery: * You must have a responsible adult drive you home and stay with you for 24 hours after your surgery * You cannot be alone at home or in a hotel * Please call your surgeon's office if you do not have someone to drive you home and/or stay with you after surgery If you are a smoker: * You should prepare for your surgery and recovery well ahead of time. Stop smoking at least 2 weeks before surgery to help prevent infection and help your body recover faster. Ask your surgeon for tools to help you quit or call 9-687-JBCCSLG ( ). Visit Smokefree.Octmami for more information. * Do not smoke during the 24 hours before surgery. If you are on Dialysis: * It is best to have dialysis the day before your surgery. If this is not feasible from a scheduling standpoint, it is acceptable to have dialysis two days prior to surgery. and * Having dialysis on the morning of your surgery is also fine if you are able to make it to the hospital on time. Instructions For Your Medications: Pre-Surgery Instructions: Medication Instructions acetaminophen (TYLENOL) 500 mg tablet Take on day of surgery if needed aluminum-magnesium hydroxide suspension 200-200 mg/5 mL Don't take on day of surgery diphenhydrAMINE 25 mg capsule Take per usual schedule polyethylene glycol (MIRALAX) 17 gram packet Don't take on day of surgery sevelamer (RENAGEL) 800 mg tablet Don't take on day of surgery sulfamethoxazole-trimethoprim (BACTRIM DS) 800-160 mg per tablet Take per usual schedule tamsulosin (FLOMAX) 0.4 mg extended release capsule Take per usual schedule General Instructions For Medications: * Stop all of these medications 5 days prior to your surgery: excedrin, motrin, advil, ibuprofen, aleve, naproxen, meloxicam, celebrex, celecoxib. For medications that you are instructed to take on the morning of surgery, take the medications with a few sips of water. Stop all of these medications 7-14 days prior to your surgery: Vitamin E, Herbal medicines, Diet Pills If you use inhalers, please bring them with you on the day of your procedure. If you have pain, you may take tylenol (acetaminophen). Do not take more than 6 tablets or 3000 mg (3 g) within a 24 period. Call your surgeon and the CPAP clinic if any of the following happens before surgery: Any changes in your health You have a fever You have any signs of an infection (chest, urinary tract or tooth) You have been to the Emergency Room or were in the hospital You have started taking any new medications * Perioperative Nursing Note - Nery Encinas RN - 03/30/2024 10:41 AM CDT Center for Preoperative Assessment and Planning Perioperative Nursing Note Telephone Preoperative Evaluation ([facility]) - TELEPHONE ONLY, NO PHYSICAL EXAM Date: 03/30/24 This assessment was completed with the patient. Vitals: 03/30/24 0835 Weight: 96.2 kg (212 lb) Height: 172.7 cm (5' 8 ) CHEST CIRCUMFERENCE: Social History Tobacco Use Smoking Status Former Current packs/day: 1.00 Types: Cigarettes Smokeless Tobacco Never Substance and Sexual Activity Drug Use Never Alcohol Use Q1: How often do you have a drink containing alcohol?: Never Q2: How many drinks containing alcohol do you have on a typical day when you are drinking?: Patientdoes not drink Q3: How often do you have six or more drinks on one occasion?: Never Outpatient Medications Marked as Taking for the 04/12/24 encounter (Hospital Encounter) Medication Sig Dispense Refill acetaminophen (TYLENOL) 500 mg tablet Take 1 tablet (500 mg total) by mouth every 8 (eight) hours as needed for pain, headaches or fever aluminum-magnesium hydroxide suspension 200-200 mg/5 mL Take 5 mL by mouth every 6 (six) hours as needed for heartburn diphenhydrAMINE 25 mg capsule Take 1 tablet/capsule (25 mg total) by mouth every 6 (six) hours as needed for itching polyethylene glycol (MIRALAX) 17 gram packet Take 1 packet (17 g total) by mouth as needed for constipation sevelamer (RENAGEL) 800 mg tablet Take 2 tablets (1,600 mg total) by mouth 3 (three) times a day with meals sulfamethoxazole-trimethoprim (BACTRIM DS) 800-160 mg per tablet Take 1 tablet (160 mg of trimethoprim total) by mouth 2 (two) times a day tamsulosin (FLOMAX) 0.4 mg extended release capsule Take 1 capsule (0.4 mg total) by mouth continuity writer before breakfast [DISCONTINUED] cephalexin (KEFLEX) 500 mg capsule [DISCONTINUED] ergocalciferol (VITAMIN D) 50,000 unit capsule Take 1.25 mg by mouth once a week [DISCONTINUED] furosemide (LASIX) 40 mg tablet Take 1.5 tablets (60 mg total) by mouth daily [DISCONTINUED] oxyBUTYnin XL (DITROPAN-XL) 10 mg 24 hr tablet Take 1 tablet (10 mg total) by mouth daily [DISCONTINUED] potassium chloride ER 20 mEq CR tablet Take 1 tablet (20 mEq total) by mouth Implants No active implants to display in this view. SKIN Piercings Remaining: No Wound (LDAs) Type of Wound (LDA): (skin cancer to nose, Fernando Nephrostomy tubes) SCREENINGS Araceli index score: 95 PATIENT CARE PLANNING Advance Directives (For Healthcare) Have you reviewed your Advance Directive and is it valid for this stay?: No Advance Directive: Patient does not have advance directive Assistive Devices/DME: None Hearing - Right Ear: Functional Hearing - Left Ear: Functional Discharge Planning Type of Residence: [facility] Care Facility Name: [facility] Living Arrangements: [facility] Support Systems: Other (Comment) Patient expects to be discharged to:: Acute Rehab 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 Arrival time and surgical time will be provided to the patient by their surgeon. You should wear clothing that is clean, loose, comfortable and easy to get in and out of on the dayof surgery. You should remove nail coverings, artificial nails and nail bulgarian prior to the day of surgery. You should leave your valuables and any jewelry at home. No metal or piercings are allowed in the operating room. You should bring your insurance card, a photo ID (example: Banquet Attendant's License) and a method of payment for any insurance copay, deductible or copay for discharge medications. You should bring a complete, up-to-date, list of all your medications on the day of surgery, including any over the counter medications or supplements you may take. Please note on your medication list, the last date & time you took each medication. The healthcare team, on the day of surgery, will ask for this information. You should bring your Advanced Directive and/or Living Will with you on the day of surgery if you have not verified a copy is already in your Epic Chart. A Guide for Patients Having Surgery: Your Pathway to Excellent Care OUR GOAL IS TO PROVIDE YOU WITH EXCELLENT CARE Use this guide to learn about what you can do before, during and after surgery to help your recovery. You are the most important person on your health care team. By becoming informed and involved, you can contribute to the success of your surgery. If your surgeon's directions are different than those in this guide, talk with your nurse or surgeon to confirm the information. It is important that you understand how to take care of yourself at home after surgery. Be sure to bring this guide with you on the day of surgery and take it home with you after surgery. Write down questions for your nurse or surgeon on the last page of this booklet. Important pages to be reviewed BEFORE surgery: Page 1: QR codes for Surgery Center maps Page 3: Types of Anesthesia Page 5: Tips for the day & night before surgery Page 6: When to stop eating BEFORE surgery and examples of clear liquids Page 7-10: Preventing Infection: Chlorhexidine Gluconate (CHG) Bathing Instructions You may access A Guide for Patients Having Surgery: Your Pathway to Excellent Care by the followinglink: [email or web address] How To Prepare Your Skin For Surgery Below is the Pre-Surgical Bathing Protocol you should follow for your surgery. If your surgeon provides you different bathing instructions, please follow your surgeon's orders. 2 Day CHG Bathing Protocol (no nasal ointment) PREVENTING INFECTION (DECOLONIZATION): Decolonization is the use of a topical antiseptic soap and sometimes a nasal ointment to remove bacteria (germs) from the skin's surface. Antiseptic soap: Chlorhexidine gluconate or CHG (brand name: Hibiclens??) Before surgery, your entire body must be thoroughly cleaned. CHG helps to reduce the bacteria on your skin. You may be given one or more bottles of CHG or you may be asked to obtain from your preferred pharmacy. Be sure to ask your pharmacist if you need help finding this product. Nasal ointment: Mupirocin (brand name: Bactroban) Your surgeon may also prescribe a topical ointment that is rubbed inside each of the nostrils to reduce the bacteria in your nose. Mupirocin ointment requires a prescription. If needed, it will be prescribed by your surgeon and obtained from your preferred pharmacy. SHOWERING WITH ANTISEPTIC SOAP (CHG) What You Need For Each Shower 60 mL (?? cup) of CHG 2 clean washcloths CHG Bathing Instructions First, shampoo and rinse your hair with your own shampoo (no conditioners). Do this so the antiseptic soap isn't washed off by your shampoo. Wash face with warm water. Turn off shower and stand away from the water. Use 2 clean washcloths to apply the antiseptic soap to all areas as described below: Pour 30 mL (1/8 cup) of CHG on washcloth #1: Using washcloth- start at jawline and firmly massage the soap into the skin in a circular motion to clean neck, shoulders, chest, back, both armpits, arms, hands and abdomen. Finish with legs and feet. Pour 30 mL (1/8 cup) of CHG on washcloth #2: Using washcloth- firmly massage the soap into the skinin a circular motion to clean groin area, perineum and buttocks. (Do not use CHG on genital area.) Su Points: The CHG antiseptic soap will not bubble or lather very much. If you get soap in your eyes, ears or mouth, rinse well with cool water. When finished, leave the soap on your skin for 2 minutes before rinsing. Dry off with a clean fresh towel. Wear clean clothes or pajamas to sleep in. After showering DO NOT put on deodorant, hair products or conditioners, lotions or creams, powders,Vaseline or any non-essential products. If you cannot reach the surgical site, such as the back, please have someone help you. Shaving: You may shave your face, legs and underarms during your evening shower before you apply the CHG antiseptic soap. Be careful not to cut or juanita your skin. Avoid shaving on the day of surgery. Deodorant: Patients following the 5-Day CHG protocol may apply deodorant on the days leading up to surgery, being sure, however, to avoid use on the evening before and day of surgery. All other products should be avoided for the full 5 days. 2-Day CHG Bathing Protocol The Evening Before Surgery: Take a shower with Antiseptic soap (CHG). Follow the steps for ???Showering with Antiseptic Soap (CHG)?? above. Change all linens on your bed so you are sleeping in clean fresh sheets and pillowcases. Remove nail coverings, artificial nails and nail bulgarian. The Morning of Surgery: Take a shower with Antiseptic soap (CHG). Follow the steps for ???Showering with Antiseptic Soap (CHG)?? above. Put clean clothes on after you shower. Travel/Exposure Screening: Travel Screening Have you traveled outside the [place] in the last 6 months?: No Exposure Screening Have you been exposed to anyone who is sick in the last 30 days?: No Have you been exposed to or tested positive for COVID-19 within the last 10 days?: No Infectious Disease Screening Are you having any of the following:: None As of 07/13/2022 any COVID TESTING required for surgery will be set up by your surgeon's office. Please reach out to your surgeon's office if you develop any COVID symptoms, test positive for COVID or are exposed to a COVID positive person. If you have questions, please call the CPAP Staff at [phone], Tuesday-Tuesday 8am-4:30pm. All patients should read the below section: Information on [facility] & the Orthopedic Center: Please view [email or web address] (Patient & Visitor Information) for additional details regarding Advanced Directive forms, AWARE, directions, parking information, lodging, Internet access, dining and more. Information on [facility] or [facility] ([facility]): Please view [email or web address] (Patient and Visitor Information) for parking/directions and more. For MyChart information, to activate account or password recovery, please go to [email or web address] or call [phone] (toll-free: [phone]), Tue- Tuesday 8am-5pm. Information for Suicide Prevention: National Suicide Prevention Lifeline (3-501- 948-JFJZ (3509)) or call or text 921. Chat resources: [employer] (Group). Surgery Times: For patients having surgery @ [facility], [facility] or [facility] ([facility]), if your surgeon's office has not notified you of your surgery time by NOON THE BUSINESS DAY BEFORE your surgery, please call [phone] and ask for your surgeon's office Dr. Roberto Bui [facility] ([facility]) does not provide arrival times for the day of surgery or provide the duration of surgery. This information is provided by your surgeon'soffice or by the center where you are having surgery. We appreciate your understanding. documented in this encounter Plan of Treatment Not on file documented as of this encounter Procedures Procedure Name Priority Date/Time Associated Diagnosis Comments CREATION ARTERIOVENOUS FISTULA - ARM 04/12/2024 7:35 AM CDT ESRD (end stage renal disease) on dialysis (HCC) POC BLOOD GAS AND CHEMISTRIES, ARTERIAL Routine 04/12/2024 6:49 AM CDT documented in this encounter Results * (ABNORMAL) POC Blood Gas and Chemistries, Arterial - (04/12/2024 6:49 AM CDT) Na, POC 139 135 - 145 mmol/L K POC 4.3 3.3 - 4.9 mmol/L [facility] Comment: Interpretive Data Not all point of care methods assess for hemolysis. Confirm with instrument and retest K+ if not consistent with clinical signs and symptoms. Current Interpretive Data was last revised on 2024. Glucose, POC 93 70 - 199 mg/dL [facility] Hct, POC 35.0(L) 41.4 - 51.6 % [facility] Total Hb, POC 11.6(L) 13.8 - 17.2 g/dL [facility] Blood 04/12/2024 6:49 AM CDT 04/12/2024 6:49 AM CDT us Brendan Bui MD LAB POCT ORDERABLES - DE VICE Final Result [facility] Department [place] [address] documented in this encounter Visit Diagnoses Diagnosis ESRD (end stage renal disease) on dialysis (HCC)- Primary End stage renal disease ESRD (end stage renal disease) on dialysis (HCC) End stage renal disease documented in this encounter Admitting Diagnoses Diagnosis ESRD (end stage renal disease) on dialysis (HCC) End stage renal disease documented in this encounter Administered Medications Inactive Administered Medications - up to 3 most recent administrations Medication Order MAR Action Action Date Dose Rate Site acetaminophen (TYLENOL) tablet 1,000 mg 1,000 mg, oral, Once, On Hiwot 04/12/24 at 1100, For 1 dose, Phase I & Post-op Floor Given 04/12/2024 10:33 AM CDT 1,000 mg fentaNYL (SUBLIMAZE) preservative free injection 50 mcg 50 mcg, intravenous, Once as needed, uncontrolled pain on PACU admission, Starting on Hiwot 04/12/24 at 1004, For 1 dose, Phase I, Then proceed to PACU 1st line analgesic., Indications: PainIndications:Pain Given 04/12/2024 10:14 AM CDT 50 mcg HYDROmorphone (DILAUDID) injection 0.2 mg 0.2 mg, intravenous, Administer over 2 Minutes, Every 10 min PRN, 1st line for pain, Starting on Hiwot 04/12/24 at 1004, Phase I, Switch to 2nd line analgesic order if pain is uncontrolled or increasing after 2 doses. Notify Anesthesiologist if total PACU dose reaches 2 mg and pain score 5/10 or more., Indications: PainIndications:Pain Given 04/12/2024 10:42 AM CDT 0.2 mg Given 04/12/2024 10:26 AM CDT 0.2 mg Lactated Ringer's (LR) infusion 30 mL/hr, intravenous, Continuous, Starting on Hiwot 04/12/24 at 0700, Pre-Op Restarted 04/12/2024 9:37 AM CDT Rate/Dose Verify 04/12/2024 7:30 AM CDT 30 mL/h r New Bag 04/12/2024 6:52 AM CDT 30 mL/hr 30 mL/hr oxyCODONE (ROXICODONE) tablet 5 mg 5 mg, oral, Once, On Hiwot 04/12/24 at 1100, For 1 dose, Phase I & Post-op Floor, Indications: PainIndications:Pain Given 04/12/2024 10:33 AM CDT 5 mg documented in this encounter Discontinued Medications Medication Sig Discontinue Reason Start Date End Da te albuterol (PROAIR DIGIHALER) 90 mcg/actuation inhaler Inhale 2 puffs 4 (four) times a day as needed 03/30/2024 cephalexin (KEFLEX) 500 mg capsule 06/10/2023 03/30/2024 ergocalciferol (VITAMIN D) 50,000 unit capsule Take 1.25 mg by mouth once a week 05/27/2023 03/30/2024 finasteride (PROSCAR) 5 mg tabletIndications:benign prostatic hyperplasia with lower urinary tract sx Take 1 tablet (5 mg total) by mouth continuity writer before breakfast 06/13/2023 03/30/2024 furosemide (LASIX) 40 mg tablet Take 1.5 tablets (60 mg total) by mouth daily 05/30/2023 03/30/2024 HYDROcodone-acetaminophen (VICODIN) 5-300 mg per tablet Take 1 tablet by mouth every 8 (eight) hours as needed 03/30/2024 ondansetron ODT (ZOFRAN-ODT) 4 mg disintegrating tablet Take 1 tablet (4 mg total) by mouth every 6 (six) hours as needed 03/30/2024 oxyBUTYnin XL (DITROPAN-XL) 10 mg 24 hr tablet Take 1 tablet (10 mg total) by mouth daily 06/17/2023 03/30/2024 potassium chloride ER 20 mEq CR tablet Take 1 tablet (20 mEq total) by mouth 05/27/2023 03/30/2024 acetaminophen (TYLENOL) 500 mg tablet Take 1 tablet (500 mg total) by mouth every 8 (eight) hours as needed for pain, headaches or fever 04/12/2024 acetaminophen (TYLENOL) 500 mg tablet Take 2 tablets (1,000 mg total) by mouth every 8 (eight) hours for 7 days 04/12/2024 04/12/2024 documented as of this encounter Historical Medications * This list may reflect changes made after this encounter. aluminum-magnesium hydroxide suspension 200-200 mg/5 mL Take 5 mL by mouth every 6 (six) hours as needed for heartburn sulfamethoxazole-tr imethoprim (BACTRIM DS) 800-160 mg per tabletIndications:P rophylaxis, Medical,Urinary Tract/Genitourinary Infection Take 1 tablet (160 mg of trimethoprim total) by mouth 2 (two) times a day 4 diphenhydrAMINE 25 mg capsule Take 1 tablet/capsule (25 mg total) by mouth every 6 (six) hours as needed for itching polyethylene glycol (MIRALAX) 17 gram packetIndications:c onstipation Take 1 packet (17 g total) by mouth as needed for constipation ergocalciferol (VITAMIN D) 50,000 unit capsule Take 1.25 mg by mouth once a week 3 03/30/20 24 albuterol (PROAIR DIGIHALER) 90 mcg/actuation inhaler Inhale 2 puffs 4 (four) times a day as needed 03/30/20 24 cephalexin (KEFLEX) 500 mg capsule 3 03/30/20 24 furosemide (LASIX) 40 mg tablet Take 1.5 tablets (60 mg total) by mouth daily 3 03/30/20 24 HYDROcodone-acetami nophen (VICODIN) 5-300 mg per tablet Take 1 tablet by mouth every 8 (eight) hours as needed 03/30/20 24 ondansetron ODT (ZOFRAN-ODT) 4 mg disintegrating tablet Take 1 tablet (4 mg total) by mouth every 6 (six) hours as needed 03/30/20 24 oxyBUTYnin XL (DITROPAN-XL) 10 mg 24 hr tablet Take 1 tablet (10 mg total) by mouth daily 3 03/30/20 24 potassium chloride ER 20 mEq CR tablet Take 1 tablet (20 mEq total) by mouth 3 03/30/20 24 added in this encounter Active and Recently Administered Medications Times are shown in CDT. Scheduled Medication Order 04/10/2024 04/11/2024 04/12/2024 acetaminophen (TYLENOL) tablet 1,000 mg (COMPLETED) 1,000 mg, oral, Once, On Hiwot 04/12/24 at 1100, For 1 dose, Phase I & Post-op Floor 1033 (Given - Provid er: Kat Lopes RN) ceFAZolin (ANCEF) 2,000 mg/20 mL in sterile water (premix) 2,000 mg (COMPLETED) 2,000 mg, intravenous, at 400 mL/hr, Administer over 3 Minutes, Once, On Hiwot 04/12/24 at 0700, For 1 dose, Pre-Op, Administer within 60 minutes of incision., Indications: Prophylaxis, Surgical 0747 (Given - Provid er: Matty Dinero) oxyCODONE (ROXICODONE) tablet 5 mg (COMPLETED) 5 mg, oral, Once, On Hiwot 04/12/24 at 1100, For 1 dose, Phase I & Post-op Floor, Indications: Pain 1033 (Given - Provid er: Kat Lopes RN) Continuous Medication Order 04/10/2024 04/11/2024 04/12/2024 Lactated Ringer's (LR) infusion 30 mL/hr, intravenous, Continuous, Starting on Hiwot 04/12/24 at 0700, Pre-Op 0652 (New Bag - Prov ider: Radha Kumar RN)0700 (Due)0730 (Rate/Dose Verify - Provider: Matty Dinero)0935 (Canceled Entry - Provider: Matty Dinero - Comment: Switch to gravity)0936 (Canceled Entry - Provider: Matty Dinero)0936 (Paused - Provider: Matty Dinero - Comment: Switch to gravity)0937 (Restarted - Provider: Matty Dinero)1528 (Due: Stopped) PRN Medication Order 04/10/2024 04/11/2024 04/12/2024 fentaNYL (SUBLIMAZE) preservative free injection 50 mcg (COMPLETED) 50 mcg, intravenous, Once as needed, uncontrolled pain on PACU admission, Starting on Hiwot 04/12/24 at 1004, For 1 dose, Phase I, Then proceed to PACU 1st line analgesic., Indications: Pain 1014 (Given - Provid er: Kat Lopes RN) haloperidol (HALDOL) injection 1 mg 1 mg, intravenous, Once as needed, nausea, vomiting, Starting on Hiwot 04/12/24 at 1004, For 1 dose, Phase I, If nausea/vomiting not relieved by prochlorperazine within 30 minutes. heparin in 0.9% sodium chloride 1,000 units/500 mL (2 unit/mL) infusion (premix) (CANCELED) As needed, Starting on Hiwot 04/12/24 at 0830, Intra-Op 0830 (Given - Provid er: Brendan Bui MD) HYDROmorphone (DILAUDID) injection 0.2 mg 0.2 mg, intravenous, Administer over 2 Minutes, Every 10 min PRN, 1st line for pain, Starting on Hiwot 04/12/24 at 1004, Phase I, Switch to 2nd line analgesic order if pain is uncontrolled or increasing after 2 doses. Notify Anesthesiologist if total PACU dose reaches 2 mg and pain score 5/10 or more., Indications: Pain 1026 (Given - Provid er: Kat Lopes RN)1042 (Given - Provider: Kat Lopes RN) HYDROmorphone (DILAUDID) injection 0.4 mg 0.4 mg, intravenous, Administer over 2 Minutes, Every 10 min PRN, 2nd line for pain, Starting on Hiwot 04/12/24 at 1004, Phase I, May administer 10 mintes after 2nd dose of 1st line analgesic agent for uncontrolled or increasing pain. Revert to 1st line dose if POSS of 3. Notify Anesthesiologist if total PACU dose reaches 2 mg and pain score 5/10 or more., Indications: Pain naloxone (NARCAN) 0.4 mg/mL injection 0.04-0.4 mg 0.04-0.4 mg, intravenous, Once as needed, other, excessive sedation/respiratory depression, Starting on Hiwot 04/12/24 at 1004, For 1 dose, Phase I, Dilute 0.4 mg with 9 mL NS (final concentration 0.04 mg/mL). For respiratory depression (respiratory rate less than 6), administer 0.4 mg IVP over 30 seconds. For excessive sedation administer 0.04 mg (1 mL) every 1 minute until desired level of alertness. For IV, administer over 30 seconds., Indications: Opioid Toxicity prochlorperazine (COMPAZINE) injection 5 mg 5 mg, intravenous, Administer over 2 Minutes, Once as needed, nausea, vomiting, Starting on Hiwot 04/12/24 at 1004, For 1 dose, Phase I, Proceed to haloperidol if no relief within 30 minutes. sodium chloride 0.9% irrigation (CANCELED) As needed, Starting on Hiwot 04/12/24 at 0829, Intra-Op 0829 (Given - Provid er: Brendan Bui MD) sterile water irrigation (CANCELED) As needed, Starting on Hiwot 04/12/24 at 0830, Intra-Op 0830 (Given - Provid er: Brendan Bui MD - Comment: instrument rinse only) documented in this encounter Orders Medications Ordered That Brando ht Not Have Been Administered Count Last Ordered Date First Ordered Date Carrier Fluids for Secondary Infusion - 0.9% Sodium Chloride 04/12/2024 ceFAZolin (ANCEF) 2,000 mg/2 0 mL in sterile water (premix) 2,000 mg 04/12/2024 haloperidol (HALDOL) injection 1 mg 04/12 heparin in 0.9% sodium chlor kathi 1,000 units/500 mL (2 unit/mL) infusion (premix) 04/12/2024 HYDROmorphone (DILAUDID) injection 0.4 mg 04/12/2024 lidocaine (PF) (XYLOCAINE) 1 0 mg/mL (1 %) preservative free injection 2-10 mg 04/12/2024 naloxone (NARCAN) 0.4 mg/mL injection 0.04-0.4 mg 04/12/2024 prochlorperazine (COMPAZINE) injection 5 mg 04/12/2024 sodium chloride 0.9% flush 0.5-20 mL 03/20 sodium chloride 0.9% irrigation sterile water irrigation 04/12/2024 Diet Count Last Ordered Date First Orde red Date ADULT DISCHARGE DIET 04/12/2024 Nursing Count Last Ordered Date First Orde red Date DISCHARGE ACTIVITY 04/12/2024 DISCHARGE CALL PROVIDER 1 04/12/2024 DISCHARGE DRESSING 1 04/12/2024 Discharge Count Last Ordered Date First Orde red Date DISCHARGE PATIENT 1 04/12/2024 documented in this encounter Care Teams Commissioner Public Works Relationship Specialty Start Date End Date Tawanda Kelley MD [address] [place] [address] PCP - General Internal Medicine 03/01/24 documented as of this encounter
--- OUTSIDE RECORDS SUMMARY | 2024-09-24 06:06 | XMS_ITS | Encounter Summary ---
Author Organization [facility] Address [address] [place] [address] Phone Care Team Providers Care Foreign Exchange Position Clerk Name Role Phone Tawanda Kelley MD Primary Care Provider [phone] Sotero Verma MD Unavailable [phone] Encounter Details Date Type Department Care Team (Late st Contact Info) Description 05/16/2024 Telephone [facility] Surgery [address] [facility] [address] [place] [id number] Jose Juan Jiang CMA Social History Tobacco Use Types Packs/Day Years Used Date Smoking Tobacco: Former Cigarettes Smokeless Tobacco: Never AUDIT-C Answer Date Recorded Q1: How often [...] on file Legal Sex Male 3:43 AM [employer] ME[employer] Gender Identity Not on file Sexual Orientation Not on file documented as of this encounter Miscellaneous Notes * Telephone Encounter - Jose Juan Jiang CMA - 05/16/2024 8:19 AM CDT Spoke to Ester at [facility] and let her know that the patient is cleared to use his access documented in this encounter Plan of Treatment Not on file documented as of this encounter Visit Diagnoses Not on filedocumented in this encounter Care Teams Foreign Exchange Position Clerk Relationship Specialty Start Date End Date Tawanda Kelley MD [address] [place] [address] PCP - General Internal Medicine 03/01/24 Sotero Verma MD [address] [facility] [address] [place] [address] Referring Physician Nephrology 05/10/24 documented as of this encounter
--- OUTSIDE RECORDS SUMMARY | 2024-09-24 06:06 | XMS_ITS | Encounter Summary ---
Author Organization [facility] Address [address] [facility] [address] [place] [address] Phone Care Team Providers Care Solidworks Mechanical Designer Name Role Phone Tawanda Kelley MD Primary Care Provider [phone] Sotero Verma MD Unavailable [phone] Reason for Visit * Diagnostic Imaging (Routine) - Authorized Specialty Diagnoses / Procedures Referred By Contac t Referred To Contact Diagnoses End stage renal disease (CMS/HCC) (HCC) Procedures US Hemodialysis Access Pam Desai MD [address] [facility] [place] [id number] [place] [address] Phone: tel: fax: [facility] (All Locations) Referral ID Status Reason Start Date Expiration Date V isits Requested Visits Authorized [id number] Authorized 04/09/2024 05/09/2025 99 99 Encounter Details Date Type Department Care Team (Latest Contact Info) Description 05/10/2024 1:00 PM CDT Ancillary Procedure [facility] Vascular Lab at the [facility] [place] [facility] [address] [place] [address] for Advanced Medicine 8th [place] [address] [place] [id number] End stage renal disease (CMS/HCC) (HCC) Social History Tobacco Use Types Packs/Day [...] on file 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 Gender Identity Not on file Sexual Orientation Not on file documented as of this encounter Plan of Treatment Not on file documented as of this encounter Procedures Procedure Name Priority Date/Time Associated Diagnosis Comments US HEMODIALYSIS ACCESS Schedule Routine, Read Routine (OP Routine) 05/10/2024 1:34 PM CDT End stage renal disease (CMS/HCC) (HCC) documented in this encounter Results * US Hemodialysis Access (05/10/2024 1:34 PM CDT) Anatomical Region Laterality Modality Vascular N/A Ultrasound 05/10/2024 1:03 PM CDT Narrative 05/11/2024 4:36 AM CDT [facility] - Department of Vascular Surgery, Vascular Laboratory [address] [place] [address] Dialysis Access Fistula/Graft Duplex Report Patient Name: AIDA WHITTAKER ?? : 1960 (63y 11m) ??Gender: M Study Date: 05-10-2024 01:03:31 PM Dispatcher Motor Vehicle: TT ??Location: [facility] Order Provider: PAM DESAI Quality: Adequate Ref Provider: PAM DESAI PROCEDURES: Vascular Report: Right Upper Extremity Arterial-Venous Fistula Duplex Exam. Radial artery to Cephalic vein. INDICATIONS: N18.6 End stage renal disease. Measurements: Diameter/Depth ? Velocities Measurement ? Value ?Units ?Measurement ?Value ? Units Rt Anastomosis Diameter ? 0.56 ? cm ? Rt Inflow Artery ? 317.00 ?cm/s Rt Anastomosis Depth ?0.89 ? cm ? Inflow Artery Volume Flow ?780 ? cc/min Rt Outflow Distal Forearm Diameter ?0.58 ? cm ? Rt Anastomosis PSV ? 582.00 ?cm/s Rt Outflow Distal Forearm Depth ? 0.46 ? cm ? Rt Vein Dist Forearm PSV ? 193.00 ?cm/s Rt Outflow Mid Forearm Diameter ? 0.53 ? cm ? Rt Vein Mid Forearm PSV ?196.00 ?cm/s Rt Outflow Mid Forearm Depth ?0.46 ? cm ? Rt Vein Prox Forearm PSV ? 165.00 ?cm/s Rt Outflow Proximal Forearm Diameter ?0.46 ? cm ? Rt Antecubital PSV ? 176.00 ?cm/s Rt Outflow Proximal Forearm Depth ? 0.38 ? cm ? Rt Vein Dist Arm PSV ? 91.10 ? cm/s Rt Outflow A/C Diameter ? 0.59 ? cm ? Rt Vein Mid Arm PSV ?79.00 ? cm/s Rt Outflow A/C Depth ?0.52 ? cm ? Rt Vein Prox Arm PSV ? 72.40 ? cm/s Rt Outflow Distal Arm Diameter ?0.54 ? cm ? Rt Deep Vein [place] ?124.00 ?cm/s Rt Outflow Distal Arm Depth ? 0.44 ? cm ? Rt Axillary Vein PSV ? 37.30 ? cm/s Rt Outflow Mid Arm Diameter ? 0.51 ? cm ? Rt Subclavian Vein ? 19.60 ? cm/s Rt Outflow Mid Arm Depth ?0.45 ? cm ? Rt Outflow Vein (Graft) Volume Flow Average ?1041 ?cc/min Rt Outflow Proximal Arm Diameter ?0.55 ? cm Rt Outflow Proximal Arm Depth ? 0.43 ? cm Rt Deep Vein [place] Diameter ?0.41 ? cm Rt Deep Vein [place] Depth ? 1.46 ? cm Rt Inflow Artery Diameter ? 0.35 ? cm Measurement ? Value ?Units ?Measurement ?Value ? Units Diameter/Depth ? Velocities - FINDINGS: Performing Dispatcher Motor Vehicle: Brant [employer]. [place] Arterial Inflow Normal: No evidence of arterial stenosis in the inflow vessel. Anastomosis: The fistula anastomosis is patent. Venous Outflow: No evidence of stenosis noted in the venous outflow vessel. The subclavian vein is patent. The axillary vein is patent. Volume Flow: Three volume flow measurements are performed at the outflow vein (graft); an averaged volume flow is 1041cc/min. Inflow artery volume flow is also obtained, measuring 780cc/min. CONCLUSIONS: 1. Patent hemodialysis fistula with no evidence of significant narrowing. 2. Three volume flow measurements are performed at the outflow vein (graft); an averaged volume flow is 1041cc/min. Inflow artery volume flow is also obtained, measuring 780cc/min. HISTORY: End-stage renal disease. PREVIOUS STUDIES: No previous studies for comparison. DISCLAIMER: The study images and the final report will be retained in the patient chart by the Vascular Laboratory for the legally required time period. This chart constitutes the legal record of any testing performed. ATTESTATION: I have reviewed and interpreted the pertinent images and measurements of this study. I attest to the conclusions in the final report that is provided above. Electronically Signed By: Otto Arguelles MD [facility] 2024-05-11 04:36:02 CDT Procedure Note Otto Arguelles MD - 05/11/2024 [facility] - Department of Vascular Surgery,Vascular Laboratory [address] [place] [address] Dialysis Access Fistula/Graft Duplex Report Patient Name: AIDA WHITTAKER : 1960 (63y 11m) Gender: M Study Date: 05-10-2024 01:03:31 PM Dispatcher Motor Vehicle: TREMAYNE Location: [facility] Order Provider: PAM DESAI Quality: Adequate Ref Provider: PAM DESAI PROCEDURES: Vascular Report: Right Upper Extremity Arterial-Venous Fistula DuplexExam. Radial artery to Cephalic vein. INDICATIONS: N18.6 End stage renal disease. Measurements: Diameter/DepthVelocities Measurement Value Units MeasurementValue Units Rt Anastomosis Diameter 0.56 cm Rt Inflow Jgtont103.00 cm/s Rt Anastomosis Depth 0.89 cm Inflow ArteryVolume Flow 780 cc/min Rt Outflow Distal Forearm Diameter 0.58 cm Rt AnastomosisPSV 582.00 cm/s Rt Outflow Distal Forearm Depth 0.46 cm Rt Vein DistForearm PSV 193.00 cm/s Rt Outflow Mid Forearm Diameter 0.53 cm Rt Vein MidForearm PSV 196.00 cm/s Rt Outflow Mid Forearm Depth 0.46 cm Rt Vein ProxForearm PSV 165.00 cm/s Rt Outflow Proximal Forearm Diameter 0.46 cm Rt AntecubitalPSV 176.00 cm/s Rt Outflow Proximal Forearm Depth 0.38 cm Rt Vein Dist ArmPSV 91.10 cm/s Rt Outflow A/C Diameter 0.59 cm Rt Vein Mid ArmPSV 79.00 cm/s Rt Outflow A/C Depth 0.52 cm Rt Vein Prox ArmPSV 72.40 cm/s Rt Outflow Distal Arm Diameter 0.54 cm Rt Deep VeinConfluence 124.00 cm/s Rt Outflow Distal Arm Depth 0.44 cm Rt Axillary VeinPSV 37.30 cm/s Rt Outflow Mid Arm Diameter 0.51 cm Rt SubclavianVein 19.60 cm/s Rt Outflow Mid Arm Depth 0.45 cm Rt Outflow Vein(Graft) Volume Flow Average 1041 cc/min Rt Outflow Proximal Arm Diameter 0.55 cm Rt Outflow Proximal Arm Depth 0.43 cm Rt Deep Vein [place] Diameter 0.41 cm Rt Deep Vein [place] Depth 1.46 cm Rt Inflow Artery Diameter 0.35 cm Measurement Value Units MeasurementValue Units Diameter/DepthVelocities - FINDINGS: Performing Dispatcher Motor Vehicle: Brant [employer] RV[employer]. [place] Arterial Inflow Normal: No evidence of arterial stenosis in theinflow vessel. Anastomosis: The fistula anastomosis is patent. Venous Outflow: No evidence of stenosis noted in the venous outflowvessel. The subclavian vein is patent. The axillary vein is patent. Volume Flow: Three volume flow measurements are performed at the outflowvein (graft); an averaged volume flow is 1041cc/min. Inflow artery volume flow is also obtained, measuring 780cc/min. CONCLUSIONS: 1. Patent hemodialysis fistula with no evidence of significantnarrowing. 2. Three volume flow measurements are performed at the outflow vein(graft); an averaged volume flow is 1041cc/min. Inflow artery volume flow is also obtained, measuring 780cc/min. HISTORY: End-stage renal disease. PREVIOUS STUDIES: No previous studies for comparison. DISCLAIMER: The study images and the final report will be retained in the patientchart by the Vascular Laboratory for the legally required time period. This chartconstitutes the legal record of any testing performed. ATTESTATION: I have reviewed and interpreted the pertinent images and measurements ofthis study. I attest to the conclusions in the final report that is provided above. Electronically Signed By: Otto Arguelles MD [facility] 2024-05-11 04:36:02 CDT Pam Desai MD [facility] PROCEDURES Final Result documented in this encounter Visit Diagnoses Diagnosis End stage renal disease (CMS/HCC) (HCC) End stage renal disease documented in this encounter Care Teams Solidworks Mechanical Designer Relationship Specialty Start Date End Date Tawanda Kelley MD [address] [place] [address] PCP - General Internal Medicine 03/01/24 Sotero Verma MD [address] [address] Referring Physician Nephrology 05/10/24 documented as of this encounter
--- OUTSIDE RECORDS SUMMARY | 2024-09-24 06:06 | XMS_ITS | Encounter Summary ---
Author Organization [facility] Healthcare Address [address] [place] [address] Care Team Providers Care Consumer Affairs Director Name Role Phone Tawanda Kelley MD Primary Care Provider [phone] Sotero Verma MD Unavailable [phone] Lizbeth Sánchez RN Unavailable [phone] Reason for Referral * Transplant (Routine) - Denied Specialty Diagnoses / Procedures Referred By Contac t Referred To Contact Transplant Diagnoses ESRD (end stage renal disease) (CMS/HCC) (HCC) Nazia Tarango MD [address] [facility] [address] [place] [address] Phone: tel: fax: [facility] Transplant Kidney [address] [facility] [address] [phone] [place] [address] Phone: tel: fax: Referral ID Status Reason Start Date Expiration Date V isits Requested Visits Authorized [id number] Denied Specialty Services Required 05/17/2024 05/17/2034 1 0 Question Answer Organ Kidney [16] Please select the performing region: 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 Gender Identity Not on file Sexual Orientation Not on file documented as of this encounter Last Filed Vital Signs Vital Sign Reading Time Taken Comments Blood Pressure - - Pulse - - Temperature - - Respiratory Rate - - Oxygen Saturation - - Inhaled Oxygen Concentration - - Weight 95.3 kg (210 lb) 05/17/2024 9:01 AM CDT Height 172.7 cm (5' 8 ) 05/17/2024 9:01 AM CDT Body Mass Index 31.93 05/17/2024 9:01 AM CDT documented in this encounter Miscellaneous Notes * Telephone Encounter - Laura Villavicencio - 05/17/2024 9:15 AM CDT Patient has [place] which we do not take at [facility] for transplant * Telephone Encounter - Scarlett Guillaume - 05/17/2024 9:01 AM CDT Patient initially referred to Lizbeth Soni for Kidney Transplant evaluation on 05/17/24 Patient is currently on dialysis All required referral documents located in chart documented in this encounter Plan of Treatment Scheduled Referrals Name Type Priority Associated Diagnoses Order Schedule Transplant Referral for Financial Clearance Outpatient Referral Routine ESRD (end stage renal disease) ([facility]/HCC) (HCC) Ordered: 05/17/2024 documented as of this encounter Visit Diagnoses Diagnosis ESRD (end stage renal disease) (CMS/HCC) (HCC)- Primary End stage renal disease documented in this encounter Care Teams Consumer Affairs Director Relationship Specialty Start Date End Date Tawanda Kelley MD [address] [place] [address] PCP - General Internal Medicine 03/01/24 Sotero Verma MD [address] [facility] [address] [place] [address] Referring Physician Nephrology 05/10/24 Lizbeth Sánchez, RN [address] [place] [address] Seat Maker 05/17/24 documented as of this encounter
--- OUTSIDE RECORDS SUMMARY | 2024-09-24 06:06 | XMS_ITS | Encounter Summary ---
Author Organization [facility] Healthcare Address [address] [place] [address] Care Team Providers Care Ditch Inspector Name Role Phone Unavailable Primary Care Provider Unavailabl e Encounter Details Date Type Department Care Team (Late st Contact Info) Description 04/07/2015 11:48 AM CDT - 04/07/2015 3:09 PM CDT Hospital Encounter [facility] Rodolfo Nicole MD [address] [facility] [address] [place] [address] Other lymphedema Social History Tobacco Use Types Packs/Day Years Used Date Smoking Tobacco: Never Assessed Sex and Gender Information Value Date Recorded Sex Assigned at Not on file 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 Gender Identity Not on file Sexual Orientation Not on file documented as of this encounter Plan of Treatment Not on file documented as of this encounter Procedures Procedure Name Priority Date/Time Associated Diagnosis Comments US GUIDED VEIN MAPPING BILATERAL COMPELTE Routine 04/07/2015 2:11 PM CDT URINALYSIS Routine 04/07/2015 1:35 PM CDT SERUM ESTIMATED GLOMERULAR FILTRATION RATE Routine 04/07/2015 12:49 PM CDT PLASMA BASIC METABOLIC PANEL Routine 04/07/2015 12:49 PM CDT BLOOD CELL COUNT (CBC), MORPHOLOGIC EXAM Routine 04/07/2015 12:49 PM CDT BLOOD CELL MORPHOLOGIC EXAM Routine 04/07/2015 12:49 PM CDT DISCHARGE LABORATORY CUMULATIVE REPORT 04/07/2015 documented in this encounter Results * US GUIDE VEIN MAPPING BI (04/07/2015 2:11 PM CDT) Anatomical Region Laterality Modality Body Bilateral Ultrasound 04/07/2015 2:11 PM CDT Narrative 04/08/2015 7:22 AM CDT VL/US Venous Low Ext Bi ??Acc#: ??[id number] DATE OF EXAM: ??Apr 07 2015 CLINICAL HISTORY: Bilateral leg swelling x 2 months. ??Pain. RESULT: Ultrasound interrogation of the veins of both lower extremities was performed. ??Neither peroneal vein was well visualized secondary to swelling. ??The common femoral, greater saphenous, superficial femoral, popliteal, and posterior tibial veins are patent with normal compressibility seen. IMPRESSION: 1. NO EVIDENCE OF DEEP VEIN THROMBOSIS IN THE LOWER EXTREMITIES. Results were reported to Dr. Simmons in the ER at 1408. Interpreting Physician: ??ARUNA LEWIS M.D. ??Read on: ??Apr 07 2015 2:11P Transcribed by: ??radha ??On: Apr 07 2015 ??5:12P Approved Electronically by: ??ARUNA LEWIS M.D. ??on: ??Apr 08 2015 7:21A Attending: ??RODOLFO SIMMONS Requesting: ??RODOLFO SIMMONS Requesting Fax: ??-- Attending Fax: ??-- Attending ID: ??[id number] Requesting ID: ??[id number] Report To 1 ID: ??[id number] Report To 1 Name: ??RODOLFO SIMMONS Report To 1 FAX: ??-- NextGen Order #: Procedure Note Provider, MD Nadya - 01/17/2017 /US Venous Low Ext Bi Acc#: [id number] DATE OF EXAM: Apr 07 2015 CLINICAL HISTORY: Bilateral leg swelling x 2 months. Pain. RESULT: Ultrasound interrogation of the veins of both lower extremities wasperformed. Neither peroneal vein was well visualized secondary toswelling. The common femoral, greater saphenous, superficial femoral,popliteal, and posterior tibial veins are patent with normalcompressibility seen. IMPRESSION: 1. NO EVIDENCE OF DEEP VEIN THROMBOSIS IN THE LOWER EXTREMITIES. Resultswere reported to Dr. Simmons in the ER at 1408. Interpreting Physician: ARUNA LEWIS M.D. Read on: Apr 07 20152:11P Transcribed by: radha On: Apr 07 2015 5:12P Approved Electronically by: ARUNA LEWIS M.D. on: Apr 08 20157:21A Attending: RODOLFO SIMMONS Requesting: RODOLFO SIMMONS Requesting Fax: -- Attending Fax: -- Attending ID: [id number] Requesting ID: [id number] Report To 1 ID: [id number] Report To 1 Name: RODOLFO SIMMONS Report To 1 FAX: -- NextGen Order #: Historical Provider MD DUNCAN US PROCEDURES Final R esult * Urinalysis (04/07/2015 1:35 PM CDT) Color, ur Yellow Yellow HISTORICAL RESULTS Clarity, ur Clear Clear HISTORIC AL RESULTS Specific gravity, ur 1.018 1.003 - 1.030 HISTORICAL RESULTS Comment:Normal Ranges: 1.003 -1.030 pH, ur 6.0 4.5 - 8.0 HISTORICAL RESULTS Comment:Normal ranges: 4.5-8 .0 Protein, ur, quant Negative Negative mg/dl HISTORICAL RESULTS Glucose, ur, quant Negative Negative mg/dl HISTORICAL RESULTS Ketones, ur Negative Negative HISTORIC AL RESULTS Bilirubin, ur Negative Negative HISTOR ICAL RESULTS U Blood Negative Negative HISTORICAL RESULTS Urobilinogen, quant, ur 1.0 0.2 - 1.0 Brady Units/dl HISTORICAL RESULTS Comment:Normal Ranges: 0.2-1 .0 EU/dL Nitrites, ur Negative Negative HISTORI AMALIA RESULTS Leukocyte esterase, ur Negative Negative HISTORICAL RESULTS Urine 04/07/2015 1:35 PM CDT Historical Provider LAB BLOOD ORDERABLES Antonina l Result HISTORICAL RESULTS * (ABNORMAL) Blood cell morphologic exam (04/07/2015 12:49 PM CDT) Neutrophils 64.4 44.0 - 80.0 % HISTORICAL RESULTS Immature granulocytes 0.3 0.0 - 1.0 % HISTORICAL RESULTS Lymphocytes 18.1 13.0 - 44.0 % HISTORICAL RESULTS Monos 7.4 2.0 - 11.0 % HISTORICAL RESULTS Eosinophils 9.0(H) 0.0 - 6.0 % HISTORICAL RESULTS Basophils 0.8 0.0 - 3.0 % HISTORICAL RESULTS Neutrophils, abs 4.8 1.6 - 7.0 K/cumm HISTORICAL RESULTS Immature granulocyte, abs 0.0 0.0 - 0.0 K/cumm HISTORICAL RESULTS Lymphocytes, abs 1.3 0.5 - 4.3 K/cumm HISTORICAL RESULTS Monocytes, absolute 0.6 0.1 - 1.0 K/cumm HISTORICAL RESULTS Eosinophils, abs 0.7(H) 0.0 - 0.6 K/cumm HISTORICAL RESULTS Basophils, abs 0.1 0.0 - 0.3 K/cumm HISTORICAL RESULTS Blood specimen (specimen) 04/07/2015 12:49 PM CDT Result [facility] Historical Provider LAB BLOOD ORDERABLES Antonina l Result HISTORICAL RESULTS * (ABNORMAL) Blood cell count (CBC), morphologic exam (04/07/2015 12:49 PM CDT) WBC 7.4 3.8 - 9.8 K/cumm HISTORICAL RESULTS RBC 3.82(L) 4.50 - 5.70 M/cumm HISTORICAL RESULTS Hgb 10.0(L) 13.8 - 17.2 g/dl HISTORICAL RESULTS Hct 32.7(L) 40.7 - 50.3 % HISTORICAL RESULTS MCV 85.6 80.0 - 100.0 fl HISTORICAL RESULTS MCH 26.2(L) 26.7 - 33.7 pg HISTORICAL RESULTS MCHC 30.6(L) 32.7 - 36.0 g/dl HISTORICAL RESULTS Rdw 15.7(H) 11.5 - 14.6 % HISTORICAL RESULTS Platelets 284 140 - 440 K/cumm HISTORICAL RESULTS MPV 9.8 8.0 - 12.0 fl HISTORICAL RESULTS NRBC 0.0 0.0 - 0.0 % HISTORIC AL RESULTS NRBC, abs 0.00 0.00 - 0.00 K/cumm HISTORICAL RESULTS Blood specimen (specimen) 04/07/2015 12:49 PM CDT Result [facility] Historical Provider LAB BLOOD ORDERABLES Antonina l Result Performing Organization Address [facility]/State/[facility] Co de Phone Number HISTORICAL RESULTS * Plasma basic metabolic panel (04/07/2015 12:49 PM CDT) Sodium 139 135 - 145 mmol/L HISTORICAL RESULTS Glucose 137 70 - 199 mg/dl HISTORICAL RESULTS Comment: Interpretive Data Note:The glucose is assumed non fasting Fastin-99 mg/dL Random: ??70-199 mg/dL Either a fasting glucose > 126 mg/dL or a random glucose > 200 mg/dL plus symptoms is diagnostic of diabetes when confirmed on another day. Fasting values > 100 mg/dL but < 125 mg/dL are diagnostic of impaired fasting glucose. Current interpretive data was last revised on 2014. K, pl 3.5 3.5 - 5.1 mmol/L HISTORICAL RESULTS BUN 13.5 8.0 - 25.0 mg/dl HISTORICAL RESULTS Chloride 102 97 - 110 mmol/L HISTORICAL RESULTS Creatinine 0.97 0.70 - 1.30 mg/dl HISTORICAL RESULTS CO2 29 22 - 32 mmol/L HISTORICAL RESULTS Calcium 8.8 8.6 - 10.2 mg/dl HISTORICAL RESULTS A. gap 12 8 - 16 mmol/L HISTORICAL RESULTS BUN/creat ratio 14 10 - 20 HIST ORICAL RESULTS Plasma 04/07/2015 12:4 9 PM CDT us Historical Provider LAB BLOOD ORDERABLES Antonina zaidi Result Performing Organization Address [facility] Co de Phone Number HISTORICAL RESULTS * Serum estimated glomerular filtration rate (04/07/2015 12:49 PM CDT) eGFR >60 ml/min/1.7 3 m2 HISTORICAL RESULTS Comment: Interpretation of Estimated GFR (eGFR): Normal ?>/= 60 mL/min/1.73m2 Possible Chronic Kidney Disease ??15 - 59 mL/min/1.73m2 Possible Kidney Failure ?< 15 ??mL/min/1.73m2 If -Chilean multiply value by 1.16. ??Estimated glomerular filtration rate is determined by the CKD-EPI equation recommended by the National Kidney Foundation (KDIGO 2012 Clinical Practice Guideline for the Evaluation and Management of Chronic Kidney Disease. ??Kidney Intnl Suppl Sep 2012;3:1). ??The CKD-EPI equation should not be used in acute renal failure or acute kidney injury and is not valid in children. Serum 04/07/2015 12:4 9 PM CDT Historical Provider LAB BLOOD ORDERABLES Antonina l Result HISTORICAL RESULTS * DISCHARGE LABORATORY CUMULATIVE REPORT (04/07/2015) Narrative 04/07/2015 Ordered by an unspecified provider. Historical Provider LAB BLOOD ORDERABLES Antonina l Result documented in this encounter Visit Diagnoses Diagnosis Other lymphedema documented in this encounter
--- OUTSIDE RECORDS SUMMARY | 2024-09-24 06:06 | XMS_ITS | Clinical Summary ---
Author Organization [facility] Address [address] [place] [address] Care Team Providers Care Mold Yard Crane Operator Name Role Phone Tawanda Kelley MD Primary Care Provider [phone] Sotero Verma MD Unavailable [phone] Lizbeth Sánchez RN Unavailable [phone] Allergies No known active allergies Medications tamsulosin (FLOMAX) 0.4 mg extended release capsuleIndications:b enign prostatic hyperplasia with lower urinary tract sx Take 1 capsule (0.4 mg total) by mouth pedodontist before breakfast 05/30/20 23 Active sevelamer (RENAGEL) 800 mg tabletIndications:Re nal Osteodystrophy with Hyperphosphatemia Take 2 tablets (1,600 mg total) by mouth 3 (three) times a day with meals 03/12/20 24 Active polyethylene glycol (MIRALAX) 17 gram packetIndications:co nstipation Take 1 packet (17 g total) by mouth as needed for constipation Active diphenhydrAMINE 25 mg capsule Take 1 tablet/capsule (25 mg total) by mouth every 6 (six) hours as needed for itching Active sulfamethoxazole-tri methoprim (BACTRIM DS) 800-160 mg per tabletIndications:Pr ophylaxis, Medical,Urinary Tract/Genitourinary Infection Take 1 tablet (160 mg of trimethoprim total) by mouth 2 (two) times a day 03/24/20 24 Active aluminum-magnesium hydroxide suspension 200-200 mg/5 mL Take 5 mL by mouth every 6 (six) hours as needed for heartburn Active oxyCODONE (ROXICODONE) 5 mg immediate release tabletIndications:Pa in Take 1 tablet (5 mg total) by mouth every 4 (four) hours as needed for pain 5 tablet 04/12/20 24 Active Active Problems Problem Noted Date Diagnosed Date ESRD (end stage renal disease) on dialysis 03/20 Encounters Date Type Department Care Team Description 09/07/2024 Telephone [facility] Surgery [address] [facility] Floor 1 [place] [id number] Brendan Bui MD from Last 3 Months Surgical History Surgery Date Site/Laterality Comments CYSTOSCOPY 09/19/2022 - 09/18/2023 Medical History Medical History Date Comments Chronic kidney disease Emphysema of lung (HCC) Family History Medical History Relation Name Comments Anesthesia problems Neg Hx Social History Tobacco Use Types Packs/Day Years [...] on file 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 Gender Identity Not on file Sexual Orientation Not on file Obstetrics History Last Filed Vital Signs Vital Sign Reading Time Taken Comments Blood Pressure 102/58 04/12/2024 11:00 AM CDT Pulse 87 04/12/2024 11:00 AM CDT Temperature 36.5 ??C (97.7 ??F) 04/12/2024 11:20 AM C DT Respiratory Rate 13 04/12/2024 11:00 AM CDT Oxygen Saturation 96% 04/12/2024 11:00 AM CDT Inhaled Oxygen Concentration - - Weight 95.3 kg (210 lb) 05/17/2024 9:01 AM CDT Height 172.7 cm (5' 8 ) 05/17/2024 9:01 AM CDT Body Mass Index 31.93 05/17/2024 9:01 AM CDT Plan of Treatment Health Maintenance Due Date Last Done Comments Colon Cancer Screening-Colonoscopy 1960 Depression Screening 1960 Fall Risk Assessment 1960 Hepatitis C Screening 1960 Prostate Cancer Screening-PSA 1959 DTaP/Tdap/Td Vaccine (1 - Tdap) 1970 Hepatitis B Screening 1977 Zoster Vaccine (1 of 2) 2009 Influenza Vaccine (#1) 2024 Abdominal Aortic Aneurysm (AAA) Screen 2024 Pneumococcal vaccine 65+ (1 of 1 - PCV) 2024 Well Visit 65+ 2024 Insurance Care Teams Mold Yard Crane Operator Relationship Specialty Start Date End Date Tawanda Kelley MD [address] [place] [address] PCP - General Internal Medicine 03/01/24 Sotero Verma MD [address] [facility] [address] [place] [address] Referring Physician Nephrology 05/10/24 Lizbeth Sánchez, RN [address] [place], [place] [id number] Storeroom Clerk 05/17/24
--- OUTSIDE RECORDS SUMMARY | 2024-09-24 06:06 | XMS_ITS | Encounter Summary ---
Author Organization [facility] Address [address] [place] [address] Phone Care Team Providers Care Video Player Mechanic Name Role Phone Tawanda Kelley MD Primary Care Provider [phone] Encounter Details Date Type Department Care Team (Late st Contact Info) Description 03/29/2024 Telephone [facility] Surgery [address] [facility] Floor 1 [place] [address] Kiki Huff Social History Tobacco Use Types Packs/Day Years Used Date Smoking Tobacco: Never Assessed AUDIT-C Answer Date Recorded Q1: How often do you have a drink containing alcohol? Never 03/30/2024 Q2: How many drinks containi ng alcohol do you have on a typical day when you are drinking? Patient does not drink Q3: How often do you have si x or more drinks on one occasion? 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 She didn't leave the full number on the recorder but she said you can reach out through the [facility] routing pool. documented in this encounter Plan of Treatment Not on file documented as of this encounter Visit Diagnoses Not on filedocumented in this encounter Care Teams Video Player Mechanic Relationship Specialty Start Date End Date Tawanda Kelley MD [address] [place] [address] PCP - General Internal Medicine 03/01/24 documented as of this encounter
--- OUTSIDE RECORDS SUMMARY | 2024-09-24 06:06 | XMS_ITS | Encounter Summary ---
Author Organization [facility] Healthcare Address [address] [place] [address] Care Team Providers Care Transit Department Clerk Name Role Phone Tawanda Kelley MD Primary Care Provider [phone] Reason for Visit * Auth/Cert Specialty Diagnoses / Procedures Referred By Contac t Referred To Contact Diagnoses ESRD (end stage renal disease) on dialysis (HCC) ESRD (end stage renal disease) on dialysis (HCC) [N18.6, Z99.2] Procedures ID CRTJ ARVEN FSTL XCP DIR ARVEN ANAST NONAUTOG GRF CREATION ARTERIOVENOUS FISTULA - ARM Referral ID Status Reason Start Date Expiration Date Visits Re quested Visits Authorized [id number] 1 1 Encounter Details Date Type Department Care Team (Late st Contact Info) Description 04/12/2024 7:30 AM CDT - 04/12/2024 10:30 AM CDT Surgery [facility] Operating Room 1 [place] [address] Brendan Bui MD [id number] [place] [address] CREATION ARTERIOVENOUS FISTULA - ARM Surgery Details Date/Time Status Location OR Service Patient Class Case Cl ass Case Type Trauma Case? 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 Gender Identity Not on file Sexual Orientation Not on file documented as of this encounter Last Filed Vital Signs Vital Sign Reading Time Taken Comments Blood Pressure 103/60 04/12/2024 10:30 AM CDT Pulse 91 04/12/2024 10:30 AM CDT Temperature 36.3 ??C (97.3 ??F) 04/12/2024 10:00 AM C DT Respiratory Rate 7 04/12/2024 10:30 AM CDT Oxygen Saturation 89% 04/12/2024 10:30 AM CDT Inhaled Oxygen Concentration - - Weight 96.2 kg (212 lb) 03/30/2024 8:35 AM CDT Height 172.7 cm (5' 8 ) 03/30/2024 8:35 AM CDT Body Mass Index 32.23 03/30/2024 8:35 AM CDT documented in this encounter Discharge Instructions * Attachments The following attachments cannot be sent through Care Everywhere. * Skin Adhesive Care (Discharge Care) (Martiniquais) * [facility] PATHWAY TO EXCELLENT CARE AFTER SURGERY documented [...] hours as needed for pain 5 tablet polyethylene glycol (MIRALAX) 17 gram packetIndications:cons tipation [...] 1 capsule (0.4 mg total) by mouth cash applications coordinator before breakfast 3 acetaminophen (TYLENOL) 500 mg [...] Departure Means Destination Comment s Discharge to fdc facility [facility] ([place], [place]) documented in this encounter H&P Notes [...] Bui MD - 03/13/2024 8:00 AM CDT [facility] Section of Vascular Surgery New Patient Consultation Patient: Andrey Giron Date of : 1960 Date of Service: 03/13/2024 Consultation at the request of Sotero Verma MD for an opinion regarding exterminator hemodialysis access. I have personally taken a [...] Right - Left - - FINDINGS: Performing Cinnamon Grinder: Rossi Medina RVT. Bilateral: Venous Doppler signals [...] A longitudinal arteriotomy was created with a diomede blade and extended with pott's scissors. Local [...] - Assisting Anesthesiologist: Conrad Luther MD PhD SOLE ROUNDER: Rizwana Cisse CRNA Student Nurse Tie Hacker: Matty Dinero Jeep Mechanic: Abigail Sargent RN; Shira King RN Scrub: Ladi Lozada ST DATE OF SURGERY [...] Preoperative Assessment and Planning CPAP Clinic Location: [facility] The night before your surgery: * Do [...] of surgery. * If having surgery at [facility], you may want to bring a credit card if you want to use our Mobile Pharmacy for your discharge medications. Mobile pharmacy is not available at [facility], the [facility], or the [facility]. Outpatient Surgery: * You must have a [...] tools to help you quit or call 0-976-WIEDRZW ( ). Visit Smokefree.gov for more information. * Do not smoke [...] Planning Perioperative Nursing Note Telephone Preoperative Evaluation ([facility]) - TELEPHONE ONLY, NO PHYSICAL EXAM Date: [...] 1 capsule (0.4 mg total) by mouth cash applications coordinator before breakfast [DISCONTINUED] cephalexin (KEFLEX) 500 mg [...] Ear: Functional Discharge Planning Type of Residence: shelter Care Facility Name: [facility] Living Arrangements: shelter Support Systems: Other (Comment) Patient expects to be discharged to:: Acute Rehab [facility] NO ADDITIONAL COMMENTS/ FOLLOW UP * Pre-Procedure [...] remove nail coverings, artificial nails and nail malagasy prior to the day of surgery. You should leave your valuables and any jewelry at home. No metal or piercings are allowed in the operating room. You should bring your insurance card, a photo ID (example: Heating Plant Superintendent's License) and a method of payment for [...] Pathway to Excellent Care by the followinglink: [email or web address] How To Prepare Your Skin For Surgery [...] Remove nail coverings, artificial nails and nail malagasy. The Morning of Surgery: Take a shower [...] questions, please call the CPAP Staff at [phone], Tuesday-Tuesday 8am-4:30pm. All patients should read the below section: Information on [facility] & the [facility]: Please view [email or web address] (Patient & Visitor Information) for additional details regarding Advanced Directive forms, AWARE, directions, parking information, lodging, Internet access, dining and more. Information on [facility] or [facility] ([facility]): Please view [email or web address] (Patient and Visitor Information) for parking/directions and more. For MyChart information, to activate account or password recovery, please go to [email or web address] or call [phone] (toll-free: [phone]), Tue- Tuesday 8am-5pm. Information for Suicide Prevention: National Suicide Prevention Lifeline (7-259- 931-UFFP (9268)) or call or text 928. Chat resources: Audience.nGAP. Surgery Times: For patients having surgery @ [facility] or [facility] ([facility]), if your surgeon's office has not notified you of your surgery time by NOON THE BUSINESS DAY BEFORE your surgery, please call [phone] and ask for your surgeon's office Dr. Roberto Bui [facility] ([facility]) does not provide arrival times for the [...] K POC 4.3 3.3 - 4.9 mmol/L FRANCISCO FUNEZ Comment: Interpretive Data Not all point of care methods assess for hemolysis. Confirm with instrument and retest K+ if not consistent with clinical signs and symptoms. Current Interpretive Data was last revised on 2024. Glucose, POC 93 70 - 199 mg/dL [facility] Hct, POC 35.0(L) 41.4 - 51.6 % [facility] Total Hb, POC 11.6(L) 13.8 - 17.2 g/dL [facility] Blood 04/12/2024 6:49 AM CDT 04/12/2024 6:49 AM CDT us Brendan Bui MD LAB POCT ORDERABLES - DE VICE Final Result [facility] Department [place] [address] documented in this encounter Visit Diagnoses Diagnosis ESRD (end stage renal disease) on dialysis (HCC)- Primary End stage renal disease ESRD (end stage renal disease) on dialysis (HCC) End stage renal disease ESRD (end stage [...] Given 04/12/2024 10:14 AM CDT 50 mcg heparin in 0.9% sodium chloride 1,000 units/500 mL (2 unit/mL) infusion (premix) As needed, Starting on Hiwot 04/12/24 at 0830, Intra-Op Given 04/12/2024 8:30 AM CDT 500 mL HYDROmorphone (DILAUDID) injection 0.2 mg 0.2 mg, [...] Given 04/12/2024 10:33 AM CDT 5 mg sodium chloride 0.9% irrigation As needed, Starting on Hiwot 04/12/24 at 0829, Intra-Op Given 04/12/2024 8:29 AM CDT 1,000 mL Surgical Site sterile water irrigation As needed, Starting on Hiwot 04/12/24 at 0830, Intra-Op Given 04/12/2024 8:30 AM CDT 1,000 mL documented in this encounter Discontinued Medications Medication [...] 1 tablet (5 mg total) by mouth cash applications coordinator before breakfast 06/13/2023 03/30/2024 furosemide (LASIX) 40 [...] by mouth 2 (two) times a day diphenhydrAMINE 25 mg capsule Take 1 tablet/capsule [...] 03/30/20 24 cephalexin (KEFLEX) 500 mg capsule 03/30/20 24 furosemide (LASIX) 40 mg tablet Take 1.5 tablets (60 mg total) by mouth daily 3 03/30/20 HYDROcodone-acetami nophen (VICODIN) 5-300 mg per tablet Take 1 tablet by mouth every 8 (eight) hours as needed 03/30/20 24 ondansetron ODT (ZOFRAN-ODT) 4 mg disintegrating tablet Take 1 tablet (4 mg total) by mouth every 6 (six) hours as needed 03/30/20 24 oxyBUTYnin XL (DITROPAN-XL) 10 mg 24 hr tablet Take 1 tablet (10 mg total) by mouth daily 03/30/20 potassium chloride ER 20 mEq CR tablet [...] Pain 1033 (Given - Provid er: Kat M. Moses, RN) Continuous Medication Order 04/10/2024 04/11/2024 04/12/2024 [...] Pain 1026 (Given - Provid er: Kat Lopes, KOKI)1042 (Given - Provider: Kat Lopes RN) HYDROmorphone [...] for Secondary Infusion - 0.9% Sodium Chloride 1 04/12/2024 ceFAZolin (ANCEF) 2,000 mg/2 0 mL in sterile water (premix) 2,000 mg 1 04/12/2024 haloperidol (HALDOL) injection 1 mg 1 04/12 HYDROmorphone (DILAUDID) injection 0.4 mg 1 04/12/2024 lidocaine (PF) (XYLOCAINE) 1 0 mg/mL (1 %) preservative free injection 2-10 mg 1 04/12/2024 naloxone (NARCAN) 0.4 mg/mL injection 0.04-0.4 mg 1 04/12/2024 prochlorperazine (COMPAZINE) injection 5 mg 1 04/12/2024 sodium chloride 0.9% flush 0.5-20 mL 1 03/20 Diet Count Last Ordered Date First Orde red Date ADULT DISCHARGE DIET 1 04/12/2024 Nursing Count Last Ordered Date First Orde red Date DISCHARGE ACTIVITY 04/12/2024 DISCHARGE CALL PROVIDER 1 04/12/2024 DISCHARGE DRESSING 1 04/12/2024 Discharge Count Last Ordered Date First Orde red Date DISCHARGE PATIENT 1 04/12/2024 documented in this encounter Care Teams Transit Department Clerk Relationship Specialty Start Date End Date Tawanda Kelley MD [address] [place] [address] PCP - General Internal Medicine 03/01/24 documented as of this encounter
--- OUTSIDE RECORDS SUMMARY | 2024-09-24 06:06 | XMS_ITS | Encounter Summary ---
Author Organization [facility] Healthcare Address [address] [place] [address] Care Team Providers Care Undergraduate Intern Name Role Phone Tawanda Kelley MD Primary Care Provider [phone] Sotero Verma MD Unavailable [phone] Lizbeth Sánchez RN Unavailable [phone] Encounter Details Date Type Department Care Team (Late st Contact Info) Description 05/25/2024 Telephone [facility] Transplant Kidney [address] [facility] [phone] [place], [place] [id number] Nara Casanova Social History Tobacco Use Types Packs/Day Years [...] on file 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 A woman answered from [facility] statingI had reached the nurse's station and that every resident has their own #. She took a message down and said she would ask the patient to call me. Tried # listed for patient in referral from dialysis unit and # said it was no longer a working number. Will wait call back from patient. documented in this encounter Plan of Treatment Not on file documented as of this encounter Visit Diagnoses Not on filedocumented in this encounter Care Teams Undergraduate Intern Relationship Specialty Start Date End Date Tawanda Kelley MD [address] [place] [address] PCP - General Internal Medicine 03/01/24 Sotero Verma MD [facility] [address] [place] [address] Referring Physician Nephrology 05/10/24 Lizbeth Sánchez, RN [address] [place] [address] Rehab Nurse 05/17/24 documented as of this encounter
--- OUTSIDE RECORDS SUMMARY | 2024-09-24 06:06 | XMS_ITS | Encounter Summary ---
Author Organization [facility] Address [address] [place] [address] Phone Care Team Providers Care Pipeliner Name Role Phone Tawanda Kelley MD Primary Care Provider [phone] Reason for Visit * Consultation (Routine) - Authorized Specialty Diagnoses / Procedures Referred By Grace t Referred To Contact Vascular Surgery Diagnoses AVF (arteriovenous fistula) (CMS/HCC) (HCC) Sotero Verma MD [address] [facility] [address] [place] [address] Phone: tel: fax: Brendan Bui MD [address] [facility] [address] [place] [address] Phone: tel: fax: Referral ID Status Reason Start Date Expiration Date Visits Requested Visits Authorized [id number] Authorized Specialty Services Required 02/16/2024 03/17/2025 99 99 Encounter Details Date Type Department Care Team (Late st Contact Info) Description 03/13/2024 8:00 AM CDT Office Visit [facility] Surgery [address] [facility] 8th [place] [address] [place] [id number] Brendan Bui MD [address] [facility] [address] [place] [address] AVF (arteriovenous fistula) (CMS/HCC) (HCC) Social History Tobacco Use Types Packs/Day Years Used Date Smoking Tobacco: Never Assessed Personal Safety Answer Date Recorded Getting School Help Needed Not on file 02/15 Sex and Gender Information Value Date Recorded Sex Assigned at Not on file 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 Gender Identity Not on file Sexual Orientation Not on file documented as of this encounter Last Filed Vital Signs Vital Sign Reading Time Taken Comments Blood Pressure 129/80 03/13/2024 8:39 AM CDT Pulse 90 03/13/2024 8:39 AM CDT Temperature - - Respiratory Rate - - Oxygen Saturation 98% 03/13/2024 8:39 AM CDT Inhaled Oxygen Concentration - - Weight 96.2 kg (212 lb) 03/13/2024 8:39 AM CDT Height 172.7 cm (5' 8 ) 03/13/2024 8:39 AM CDT Body Mass Index 32.23 03/13/2024 8:39 AM CDT documented in this encounter Progress Notes * Brendan Bui MD - 03/13/2024 8:00 AM CDT [facility] Section of Vascular Surgery New Patient Consultation Patient: Andrey Giron Date of : 1960 Date of Service: 03/13/2024 Consultation at the request of Sotero Verma MD for an opinion regarding terminal makeup operator hemodialysis access. I have personally taken a [...] Right - Left - - FINDINGS: Performing Campus Aide: Rossi Medina RVT. Bilateral: Venous Doppler signals [...] encounter Miscellaneous Notes * Addendum Note - Marilyn Finch RN - 03/13/2024 8:00 AM CDTAddended by: MARILYN FINCH on: 03/13/2024 09:30 AM Modules accepted: Orders documented in this encounter Plan of Treatment Not on file documented as of this encounter Visit Diagnoses Diagnosis AVF (arteriovenous fistula) (CMS/HCC) (HCC) Arteriovenous fistula, acquired documented in this encounter Historical Medications * This list may reflect changes made after this encounter. sevelamer (RENAGEL) 800 mg tabletIndications:Vanesa l Osteodystrophy with Hyperphosphatemia Take 2 tablets (1,600 mg total) by mouth 3 (three) times a day with meals 4 tamsulosin (FLOMAX) 0.4 mg extended release capsuleIndications:cassius ign prostatic hyperplasia with lower urinary tract sx Take 1 capsule (0.4 mg total) by mouth corporate statistical financial analyst before breakfast 3 finasteride (PROSCAR) 5 mg tabletIndications:keo gn prostatic hyperplasia with lower urinary tract sx Take 1 tablet (5 mg total) by mouth corporate statistical financial analyst before breakfast 3 03/30/20 24 acetaminophen (TYLENOL) 500 mg tablet Take 1 tablet (500 mg total) by mouth every 8 (eight) hours as needed for pain, headaches or fever 04/12/20 24 added in this encounter Orders Outpatient Referral Count Last Ordered Date st Ordered Date AMB REFERRAL TO VASCULAR SURGERY 1 03/13/20 24 documented in this encounter Care Teams Pipeliner Relationship Specialty Start Date End Date Tawanda Kelley MD [address] [place] [address] PCP - General Internal Medicine 03/01/24 documented as of this encounter
--- OUTSIDE RECORDS SUMMARY | 2024-09-24 06:06 | XMS_ITS | Encounter Summary ---
Author Organization [facility] Healthcare Address [address] [place] [address] Care Team Providers Care Insulation Cupola Charger Name Role Phone Tawanda Kelley MD Primary Care Provider [phone] Sotero Verma MD Unavailable [phone] Reason for Visit * Reason Onset Date Comments Referral - Kidney Txp 05/10/2024 Encounter Details Date Type Department Care Team (Late st Contact Info) Description 05/10/2024 Telephone [facility] Trans[facility] Kidney [address] [facility] [phone] [place] [address] Isela Milton Referral - Kidney Txp Social History Tobacco [...] on file 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 Gender Identity Not on file Sexual Orientation Not on file documented as of this encounter Last Filed Vital Signs Vital Sign Reading Time Taken Comments Blood Pressure - - Pulse - - Temperature - - Respiratory Rate - - Oxygen Saturation - - Inhaled Oxygen Concentration - - Weight 95.5 kg (210 lb 8.6 oz) 05/10/2024 10:46 AM CDT Height 172.7 cm (5' 8 ) 05/10/2024 10:46 AM CDT Body Mass Index 32.01 05/10/2024 10:46 AM CDT documented in this encounter Miscellaneous Notes * Telephone Encounter - Isela Milton - 05/10/2024 10:46 AM CDT Received referral for Kidney transplant via fax from dialysis unit Not all required documents received for referral. Sent referral documents request to Patient, Dialysis Center, and Referring MD documented in this encounter Plan of Treatment Not on file documented as of this encounter Visit Diagnoses Not on filedocumented in this encounter Care Teams Insulation Cupola Charger Relationship Specialty Start Date End Date Tawanda Kelley MD [address] [place] [address] PCP - General Internal Medicine 03/01/24 Sotero Verma MD [facility] [address] [place] [address] Referring Physician Nephrology 05/10/24 documented as of this encounter
--- OUTSIDE RECORDS SUMMARY | 2024-09-24 06:06 | XMS_ITS | Encounter Summary ---
Author Organization [facility] Healthcare Address [address] [place] [address] Care Team Providers Care Reception Interviewer Name Role Phone Tawanda Kelley MD Primary Care Provider [phone] Reason for Visit * Auth/Cert Specialty Diagnoses [...] Expiration Date Visits Re quested Visits Authorized [id number] 1 1 Encounter Details Date Type Department Care Team (Late st Contact Info) Description 04/12/2024 7:30 AM CDT Anesthesia Event [facility] Operating Room [address] [place] [address] Conrad Luther MD PhD [address] [place] [address] Cassandra Reddy, HARSHAL [address] [facility] [phone] [place] [address] Anesthesia Record Procedure Summary Procedure Name Responsible Anesthesiologist Anesthesia Start Time Anesthesia Stop Time CREATION ARTERIOVENOUS FISTULA - ARM (Right: Arm Upper) Conrad Luther MD PhD 04/12/24 0730 04/12/24 1004 Events Date Time Event Comment 04/12/2024 0613 In Preop 0730 An Start 0735 In Room 0735 An Start Data 0735 Proc Start 0740 An Induction The patient was reevaluated immediately before moderate or deep sedation use and before anesthesia induction. 0744 An Intubation 0827 Incision Start 0945 Proc Fin 0952 Out of Room 1004 Handoff to RN I completed my handoff to the receiving nurse during which we: 1. Patient identified 2. Responsible provider identified 3. Pertinent medical history reviewed 4. Procedure type and surgical course discussed 5. Intraoperative anesthetic management and any significant issues discussed 6. Expectations and concerns for postop period discussed 7. Questions solicited from receiving nurse 8. Patient disposition at the time of handoff: PACU 1004 An Stop Meds Name Total midazolam PF 2 mg lidocaine (cardiac) syringe 2 % 50 mg propofol 150 mg fentaNYL 200 mcg rocuronium 80 mg phenylephrine 100 mcg/mL 650 mcg ePHEDrine 15 mg ondansetron PF (ZOFRAN) 2 mg/mL injectio n 4 mg ceFAZolin (ANCEF) 2,000 mg/20 mL in ster ile water (premix) 2,000 mg 2,000 mg phenylephrine infusion (100 mcg/mL) 4.6 mg famotidine 20 mg dexmedeTOMIDine 80mcg/20mL (4 mcg/mL) 16 mcg sugammadex 200 mg Lactated Ringer's (LR) infusion 400 mL * Agents Name O2% N2O O2 N2O Air Sevoflurane Inspired Sevoflurane * Blood No blood administrations on file. Lines, Drains, and Airways Type Details Placement Removal Closed/Suction/Open Drain Inferior, Right; Back 03/30/24 0848 by Closed/Suction/Open Drain Inferior, Lateral, Left; Back 03/30/24 0848 by Hemodialysis AV Access 03/30/24 1020 by ETT Placement Date: 04/12/24; Placement Time: 0816 (created via procedure documentation); Mask Ventilation: 0; Technique: Direct laryngoscopy; Type: ETT - single; Single Lumen Tube Size: 8 mm; Cuffed: Yes; Laryngoscope: Mati; Blade Size: 3; Location: Oral; Grade View: Grade IIa; Insertion Attempts: 1; Placement Verification: Auscultation, Capnometry 04/12/24 0816 by Matty Dinero Wound Nose; 08/21/24 (Retired LDA, Removed/Completed by Hard [employer] with LDA Utility); 121 (Retired LDA, Removed/Completed by [employer] with LDA Utility) 03/30/24 0847 by 08/21/24 1213 by Discharge Provider, Automatic Peripheral IV Placement Date: 04/12/24; Placement Time: 0651; Catheter Size: 20 G; Orientation: Left; Location: Wrist; Removal Date: 04/12/24; Removal Time: 11204/12/24 0651 by Radha Kumar RN 04/12/24 112 by Kat Lopes RN Peripheral IV Placement Date: 04/12/24; Placement Time: 08 (created via procedure documentation); Catheter Size: 18 G; Orientation: Left; Location: Hand; Site Prep: Chlorhexidine; Insertion Attempts: 1; Removal Date: 04/12/24; Removal Time: 11204/12/24 0816 by Matty Dinero 04/12/24 1125 by Kat Lopes RN RETIRED Surgical Site 04/12/24; 0833; Right; Wrist; 08/21/24 (Retired LDA, Removed/Completed by [employer] with LDA Utility); 1213 (Retired LDA, Removed/Completed by [employer] with LDA Utility) 04/12/24 0833 by Shira King RN 08/21/24 1213 by Discharge Provider, Automatic documented in this encounter Social History Tobacco [...] on file Legal Sex Male 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 Gender Identity Not on file Sexual Orientation Not on file documented as of this encounter OR Notes * Anesthesia Postprocedure Evaluation - Oxana Skinner MD - 04/12/2024 10:48 AM CDT Patient: Andrey Giron Procedure Summary Date: 04/12/24 Room / Location: [facility] OR POD 3 ROOM 306 / [facility] OR POD 3 Anesthesia Start: 729 Anesthesia Stop: 1004 Procedure: CREATION ARTERIOVENOUS FISTULA - ARM (Right: Arm Upper) Diagnosis: ESRD (end stage renal disease) on dialysis (HCC) (ESRD (end stage renal disease) on dialysis (HCC) [N18.6, Z99.2]) Surgeons: Brendan Bui MD Responsible Provider: Conrad Luther MD PhD Anesthesia Type: general ASA Status: 4 Anesthesia Type: general Last vitals BP 99/62 Pulse 87 Temp 36.3 ??C (97.3 ??F) (Temporal) Resp 12 SpO2 92% Anesthesia Post Evaluation Patient location during evaluation: PACU Patient participation: complete - patient participated Level of consciousness: fully awake Pain score: 6 Pain management: satisfactory to patient Airway patency: patent Evidence of recall: no Cardiovascular status: blood pressure returned to baseline and hemodynamically stable Respiratory status: room air Pt is: normothermic Nausea/Vomiting status: none Comments: Going back to the skilled facility and has a ride to his skilled facility No notable events documented. Cosigned by Elie Rodríguez MD at 04/12/2024 11:00 AM CDT * Anesthesia Procedure Notes - Matty Dinero - 04/12/2024 8:16 AM CDT Associated Order(s): Peripheral IV Catheter Peripheral IV Catheter Patient location: OR Staff: Supervising provider: Conrad Luther MD PhD Placed by: Other staff: Matty Dinero Preprocedure prep: Prep solution: chlorhexadine PPE: gloves and provider hat/mask PIV line: Laterality: left Site: hand Catheter size: 18 g Technique: anatomical landmarks, direct visualization and palpatation Procedure details: good blood return and occlusive dressing applied Number of attempts: 1 Assessment: Events: patient tolerated procedure well with no complications * Anesthesia Procedure Notes - Matty Dinero - 04/12/2024 8:13 AM CDT Associated Order(s): Airway Airway Patient location: OR Urgency: elective Indications for airway management: anesthesia Difficult airway: no Staff: Supervising provider: Conrad Luther MD PhD Placed by: EXHIBIT SPECIALIST: Rizwana Cisse CRNA Other staff: Matty Dinero Emergent airway documentation: Risks and benefits discussed: yes Consent obtained: yes Consent given by: patient Airway prep: Preoxygenated: yes Patient position: sniffing Mask difficulty assessment: 0 - not attempted Spontaneous ventilation during airway: absent Sedation level during airway: GA Final airway details: Final airway type: endotracheal airway Tube type: ETT ETT size: 8.0 mm Cuffed: yes Technique used for successful ETT placement: direct laryngoscopy Insertion site: oral Blade type: Mati Blade size: 3 Cormack-Lehane (direct): grade IIa - partial view of glottis Cuff volume: 7 mL Cuff inflated with: air ETT to lips: 24 cm Placement verified by: auscultation and CO2 detection Airway secured with: silk tape Number of attempts: 1 * Anesthesia Preprocedure Evaluation - Conrad Luther MD PhD - 04/06/2024 10:35 AM CDT Images from the original note were not included. [facility] Preoperative [facility] and Planning Preoperative Evaluation Record Evaluation type/location: TPAP from [facility] Planned procedure site: [facility] (Pods 2/3/5/CLINICAL PSYCHOLOGIST) Date: 04/06/24 Anesthesia Evaluation Andrey Giron is a 63 y.o. male CREATION ARTERIOVENOUS FISTULA - ARM (Right: Arm Upper) Pre-Op Diagnosis Codes: * ESRD (end stage renal disease) on dialysis (HCC) [N18.6, Z99.2] HISTORY HPI Andrey Giron is a 63 y.o. male with history of HTN, COPD, smoking, obesity, hepatitis C, anemia, and ESRD (HD- MWF, left chest catheter) who is being evaluated prior to undergoing creation arteriovenous fistula right arm Past Medical History Information obtained from: patient and chart. Information obtained during: Telephone Visit NOTE: This note represents a preoperative evaluation initiated via virtual (video or telephone) interview. NO PHYSICAL EXAM was performed at the time of initial assessment. A physical exam may be added to this note and documented below. Neurological Pertinent negatives: seizures; neuromuscular disease; CVA/stroke and TIA Cardiovascular + Hypertension (does not know typical Bp readings, reports BP can run high/low) Pertinent negatives: CAD ; PA ; CABG ; valvular heart disease; atrial fibrillation; pacemaker/ICD; DVT/PE; negative for CHF; drug-eluting stent(s) and bare metal stent(s) Respiratory + COPD - chronic bronchitis and emphysema. Dyspnea frequency: 2 days/week or less. Rescue inhaler use: 2 days/week or less. Hospitalizations/ER in the last year: 0. + Current smoker - Counseled to abstain from smoking the day of surgery. Pertinent negatives: asthma; sleep apnea (BRENDA); no O2 use outside the hospital; no history of oral steriod use and no prior intubation for respiratory failure Hepatic / Heme + Liver disease - hepatitis C. + History of anemia (12/07/24 H/H 9.2/29.6. Pt reports blood transfusion spring 2023) Gastrointestinal + GERD - does not use medication. Symptoms < 1x/week. Renal / + Renal disease + Dialysis (left chest dialysis catheter) Last dialysis: 04/06/2024 Dialysis History: ongoing hemodialysis Current dialysis regimen: Tue-Tue-Tue Dialysis start yr: 2023 Comments: +BPH Hx urinary outlet obstruction s/p B nephrostomies Musculoskeletal/Pain Pertinent negatives: chronic pain Endocrine / Other + Obesity (BMI >30) + Cancer history- skin cancer only. Pertinent negatives: diabetes mellitus; thyroid disease; transplanted organ and infectious disease Functional Capacity Functional capacity: 4-6 METs Comments: Active around the house and independent in ADLs. Able to walk 4 city blocks without CP orSOB. Review of Systems + previous transfusion (2-3 mo ago Spring 2023) Pertinent negatives: productive cough; SOB; recent cold/flu; fever; chest pain; orthopnea; pedal edema; PND; easy bruising; bleeding problems; syncope; dizziness; chronic pain and no unexpected weight change Comments: Denies UTI, URI, open wounds, or other signs and symptoms of infection at this time. PAT Summary and Plans Cardiac risk classification of planned procedure: low cardiac risk. Preoperative assessment status: complete. Additional comments: Andrey Giron is a 63 y.o. male who is being evaluated prior to undergoing a low cardiac risk surgery. Revised Cardiac Risk Index factors are (preoperative creatinine > 2 mg/dL) for a total RCRI of 1 out of 6. Functional capacity is 4-6 METs. [facility] Spoke to Irma, faxed instructions Pt at dialysis today, reports pt misses dialysis often. Spoke to pt, discussed importance of continuing dialysis leading up to surgery and to continue with plan for dialysis the day before surgery. left chest dialysis catheter The patient is scheduled for surgery on 04/12, and dialysis is scheduled for 04/11. I've informed the pt usual recommendations regarding dialysis are as follow: * It is best to have dialysis the day before your surgery and * Having dialysis on the morning of your surgery is also fine if youare able to make it to the hospital on time. If this is not feasible from a scheduling standpoint, it is acceptable to have dialysis two days prior to surgery. (pt to continue with current dialysis plan and if any changes to notify CPAP and surgeon) Obstructive sleep apnea (BRENDA) screening status is STOP-BANG incomplete but suspected to be 0-2 suggesting low risk for BRENDA. Neck circumference pending.. This assessment was performed via telephone. Therefore the physical exam has been deferred to the day of surgery team. The patient was provided with preoperative instructions for their medications. Patient instructions were provided via fax to [facility]. Patient verbalized understanding of instructions. Blood bank needs for day of procedure: No type and screen needed Pending labs/tests include: None, Istat K, Istat Na, Istat BUN, and Istat Hgb Reviewed labs under media tab 03/30/24 Secondary records 12/08/23 CBC remarkable for H/H 9.2/29.6, platelet 200 Unremarkable CMP: Na 134, K 4.2, Cr 6.50 TPAP assessment complete Preoperative evaluation performed by Nieves Espinal NP on 04/06/24 at 2:58 PM . Patient Active Problem List Diagnosis Date Noted ESRD (end stage renal disease) on dialysis (HCC) 03/20/2024 Past Medical History: Diagnosis Date Chronic kidney disease Emphysema of lung (HCC) Past Surgical History: Procedure Laterality Date CYSTOSCOPY 2022 No Known Allergies Med List Status: Nurse Complete Set By: Nery Encinas RN at 03/30/2024 10:38 AM Taking? Last Dose Start Date End Date Provider acetaminophen (TYLENOL) 500 mg tablet Past Month -- -- Nadya Chapepll MD aluminum-magnesium hydroxide suspension 200-200 mg/5 mL Past Week -- -- Nadya Chappell MD diphenhydrAMINE 25 mg capsule Past Month -- -- Nadya Chappell MD polyethylene glycol (MIRALAX) 17 gram packet Past Month -- -- Nadya Chappell MD sevelamer (RENAGEL) 800 mg tablet 03/30/2024 03/12/24 -- Nadya Chappell MD sulfamethoxazole-trimethoprim (BACTRIM DS) 800-160 mg per tablet 03/30/2024 03/24/24 -- Nadya Chappell MD tamsulosin (FLOMAX) 0.4 mg extended release capsule 03/30/2024 05/30/23 -- Nadya Chappell MD No current facility-administered medications for this encounter. Current Outpatient Medications: acetaminophen (TYLENOL) 500 mg tablet aluminum-magnesium hydroxide suspension 200-200 mg/5 mL diphenhydrAMINE 25 mg capsule polyethylene glycol (MIRALAX) 17 gram packet sevelamer (RENAGEL) 800 mg tablet sulfamethoxazole-trimethoprim (BACTRIM DS) 800-160 mg per tablet tamsulosin (FLOMAX) 0.4 mg extended release capsule Social History Tobacco Use Smoking Status Former Current packs/day: 1.00 Types: Cigarettes Smokeless Tobacco Never Alcohol Use: Not At Risk (03/30/2024) AUDIT-C Frequency of Alcohol Consumption: Never Average Number of Drinks: Patient does not drink Frequency of Binge Drinking: Never Substance and Sexual Activity Drug Use Never No family history on file. There were no vitals filed for this visit. Relevant diagnostics: ECG(s): 07/14/23 ([facility]H records from care everywhere): SR 94bpm Echocardiogram(s): N/A Stress test(s): N/A Cardiac catheterization(s): N/A PFT(s): N/A Vascular studies: N/A Other: N/A PT: No results found for requested labs within last 30 days. INR: No results found for requested labs within last 30 days. APTT: No results found for requested labs within last 30 days. Hgb A1C: No results found for requested labs within last 30 days. CBC RBC: No results found for requested labs within last 30 days. RDW: No results found for requested labs within last 30 days. MCHC: No results found for requested labs within last 30 days. MCH: No results found for requested labs within last 30 days. MCV: No results found for requested labs within last 30 days. Hct: No results found for requested labs within last 30 days. Hgb: No results found for requested labs within last 30 days. WBC: No results found for requested labs within last 30 days. MPV: No results found for requested labs within last 30 days. Platelets: No results found for requested labs within last 30 days. RDW CV: No results found for requested labs within last 30 days. RDW Sd: No results found for requested labs within last 30 days. BMP Glucose: No results found for requested labs within last 30 days. Calcium: No results found for requested labs within last 30 days. Sodium: No results found for requested labs within last 30 days. Potassium: No results found for requested labs within last 30 days. CO2: No results found for requested labs within last 30 days. Chloride: No results found for requested labs within last 30 days. BUN: No results found for requested labs within last 30 days. Creatinine: No results found for requested labs within last 30 days. Araceli index score: 95 DOS Physical Exam Medical history, medications, and allergies reviewed. Attestation: With today's edits, I endorse the findings of the anesthesia pre-evaluation assessment dated: 04/06/2024. Airway Exam: Mallampati: I Cervical ROM: FROM TM distance: 3.5 Patient presents with thick neck. Upper lip bite test class: 1 Cardiovascular Exam: Rate: regular Rhythm: regular Negative for Murmur Negative for peripheral edema Pulmonary Exam: LCTA, bilat Dental Exam: Edentulous Current state: Patient's current state is cooperative and interactive. Anesthesia Plan ASA 4 My patient is approved for the Anesthesia Controlled Medication protocol when under care of a EXHIBIT SPECIALIST Planned anesthesia: General Team communication plan: oral ET tube Induction: Induction: intravenous. Postoperative Plan: No plan for postoperative opioid use. No postoperative mechanical ventilation intended. Patient's planned disposition post procedure is 23 hour admit. No trial extubation planned. Informed Consent: Discussed plan with EXHIBIT SPECIALIST. Anesthesia plan and risks discussed with patient. Consent and Attending signature: I and/or my designee have discussed the anesthesia plan, benefits, possible alternatives, parental presence at time of induction (if indicated), and clinically relevant risks that may include dental injury, unintentional awareness, and/or other complications. The patient and/or parent/legal guardian understand, and agree to proceed. All questions answered. documented in this encounter Plan of Treatment Not on file documented as of this encounter Procedures Procedure Name Priority Date/Time Associated Diagnosis Comments ID AN PROCEDURE PLACEHOLDER Routine 04/12/2024 8:16 AM CDT ID AN PROCEDURE PLACEHOLDER Routine 04/12/2024 8:13 AM CDT ID AN ELECTIVE ENDOTRACHEAL AIRWAY Routine 04/12/2024 8:13 AM CDT documented in this encounter Results * ID AN PROCEDURE PLACEHOLDER (04/12/2024 8:16 AM CDT) Narrative Matty Dinero - 04/12/2024 8:16 AM CDT Matty Dinero ? 04/12/2024 ??8:16 AM Peripheral IV Catheter Patient location: OR Staff: Supervising provider: Conrad Luther MD PhD Placed by: Other staff: Matty Dinero Preprocedure prep: Prep solution: chlorhexadine PPE: gloves and provider hat/mask PIV line: Laterality: left Site: hand Catheter size: 18 g Technique: anatomical landmarks, direct visualization and palpatation Procedure details: good blood return and occlusive dressing applied Number of attempts: 1 Assessment: Events: patient tolerated procedure well with no complications Conrad Luther MD PhD ANESTHESIA ORDERABLES Antonina l Result * ID AN ELECTIVE ENDOTRACHEAL AIRWAY, ID AN PROCEDURE PLACEHOLDER (04/12/2024 8:13 AM CDT) Narrative Matty Dinero - 04/12/2024 8:13 AM CDT Matty Dinero ? 04/12/2024 ??8:16 AM Airway Patient location: OR Urgency: elective Indications for airway management: anesthesia Difficult airway: no Staff: Supervising provider: Conrad Luther MD PhD Placed by: EXHIBIT SPECIALIST: Rizwana Cisse CRNA Other staff: Matty Dinero Emergent airway documentation: Risks and benefits discussed: yes Consent obtained: yes Consent given by: patient Airway prep: Preoxygenated: yes Patient position: sniffing Mask difficulty assessment: 0 - not attempted Spontaneous ventilation during airway: absent Sedation level during airway: GA Final airway details: Final airway type: endotracheal airway Tube type: ETT ETT size: 8.0 mm Cuffed: yes Technique used for successful ETT placement: direct laryngoscopy Insertion site: oral Blade type: Mati Blade size: 3 Cormack-Lehane (direct): grade IIa - partial view of glottis Cuff volume: 7 mL Cuff inflated with: air ETT to lips: 24 cm Placement verified by: auscultation and CO2 detection Airway secured with: silk tape Number of attempts: 1 Result [facility] Conrad Luther MD PhD ANESTHESIA ORDERABLES Antonina l Result documented in this encounter Visit Diagnoses Not on filedocumented in this encounter Administered Medications Inactive Administered Medications - up to 3 most recent administrations Medication Order MAR Action Action Date Dose Rate Site ceFAZolin (ANCEF) 2,000 mg/20 mL in sterile water (premix) 2,000 mg 2,000 mg, intravenous, at 400 mL/hr, Administer over 3 Minutes, Once, On Hiwot 04/12/24 at 0700, For 1 dose, Pre-Op, Administer within 60 minutes of incision., Indications: Prophylaxis, SurgicalIndications:Prophylaxis, Surgical Given 04/12/2024 7:47 AM CDT 2,000 mg dexmedeTOMIDine (PRECEDEX) 80 mcg/20 mL (4 mcg/mL) in sodium chloride 0.9% (premix) intravenous, As needed, Starting on Hiwot 04/12/24 at 0901, Anesthesia Intra-op Given 04/12/2024 9:44 AM CDT 4 mcg Given 04/12/2024 9:34 AM CDT 4 mcg Given 04/12/2024 9:10 AM CDT 4 mcg ePHEDrine injection intravenous, Administer over 5 Minutes, As needed, Starting on Hiwot 04/12/24 at 0806, Anesthesia Intra-op Given 04/12/2024 8:19 AM CDT 5 mg Given 04/12/2024 8:06 AM CDT 10 mg famotidine (PEPCID) injection intravenous, Administer over 2 Minutes, As needed, Starting on Hiwot 04/12/24 at 0824, Anesthesia Intra-op Given 04/12/2024 8:24 AM CDT 20 mg fentaNYL (SUBLIMAZE) preservative free injection intravenous, As needed, Starting on Hiwot 04/12/24 at 0740, Anesthesia Intra-op Given 04/12/2024 8:41 AM CDT 50 mcg Given 04/12/2024 7:54 AM CDT 50 mcg Given 04/12/2024 7:40 AM CDT 100 mcg Lactated Ringer's (LR) infusion 30 mL/hr, intravenous, Continuous, Starting on Hiwot 04/12/24 at 0700, Pre-Op Restarted 04/12/2024 9:37 AM CDT Rate/Dose Verify 04/12/2024 7:30 AM CDT 30 mL/h r New Bag 04/12/2024 6:52 AM CDT 30 mL/hr 30 mL/hr lidocaine (cardiac) (XYLOCAINE) preservative free injection intravenous, As needed, Starting on Hiwot 04/12/24 at 0740, Anesthesia Intra-op, Indications: Ventricular ArrhythmiasIndications:Ventricular Arrhythmias Given 04/12/2024 7:40 AM CDT 50 mg midazolam (VERSED) 2 mg/2 mL preservative free injection intravenous, Administer over 2 Minutes, As needed, Starting on Hiwot 04/12/24 at 0741, Anesthesia Intra-op Given 04/12/2024 7:30 AM CDT 2 mg ondansetron (ZOFRAN) injection intravenous, Administer over 2 Minutes, As needed, Starting on Hiwot 04/12/24 at 0931, Anesthesia Intra-op Given 04/12/2024 9:31 AM CDT 4 mg phenylephrine (MAR-SYNEPHRINE) 1 mg/10 mL (100 mcg/mL) in sodium chloride 0.9% (premix) intravenous, As needed, Starting on Hiwot 04/12/24 at 0759, Anesthesia Intra-op Given 04/12/2024 9:17 AM CDT 50 mcg Given 04/12/2024 8:04 AM CDT 100 mcg Given 04/12/2024 8:03 AM CDT 100 mcg phenylephrine (MAR-SYNEPHRINE) 5 mg/50 mL (100 mcg/mL) in sodium chloride 0.9% (premix) intravenous, Continuous PRN, Starting on Hiwot 04/12/24 at 0803, Anesthesia Intra-op Rate/Dose Change 04/12/2024 9:34 AM CDT 0.3 mcg/kg/min 17.316 mL/hr Rate/Dose Change 04/12/2024 9:17 AM CDT 0.4 mcg/kg/min 23. 088 mL/hr Rate/Dose Change 04/12/2024 9:02 AM CDT 0.3 mcg/kg/min 17. 316 mL/hr propofoL (DIPRIVAN) 10 mg/mL IV intravenous, As needed, Starting on Hiwot 04/12/24 at 0741, Anesthesia Intra-op Given 04/12/2024 8:41 AM CDT 30 mg Given 04/12/2024 7:41 AM CDT 120 mg rocuronium (ZEMURON) injection intravenous, As needed, Starting on Hiwot 04/12/24 at 0743, Anesthesia Intra-op Given 04/12/2024 7:43 AM CDT 80 mg sugammadex (BRIDION) 100 mg/mL intravenous solution intravenous, As needed, Starting on Hiwot 04/12/24 at 0932, Anesthesia Intra-op Given 04/12/2024 9:32 AM CDT 200 mg documented in this encounter Care Teams Reception Interviewer Relationship Specialty Start Date End Date Tawanda Kelley MD [address] [place] [address] PCP - General Internal Medicine 03/01/24 documented as of this encounter
--- OUTSIDE RECORDS SUMMARY | 2024-09-24 06:06 | XMS_ITS | Encounter Summary ---
Author Organization [facility] Address [address] [place] [address] Phone Care Team Providers Care Communications Officer Name Role Phone Unavailable Primary Care Provider Unavailabl e Reason for Referral * Diagnostic Imaging (Routine) - Authorized Specialty Diagnoses / Procedures Referred By Contac t Referred To Contact Diagnoses End stage renal disease (CMS/HCC) (HCC) Procedures US Vein Mapping Fistula Access, Bilateral Pam Desai MD [address] [facility] [id number] [place] [address] Phone: tel: fax: [facility] (All Locations) Referral ID Status Reason Start Date Expiration Date V isits Requested Visits Authorized Authorized 02/16/2024 03/17/2025 [id number] Encounter Details Date Type Department Care Team (Late st Contact Info) Description 02/16/2024 Orders Only [facility] Surgery [address] [facility] Advanced Medicine 8th [place] [address] [place] [address] Pam Desai MD [address] [facility] [id number] [place] [address] End stage renal disease (CMS/HCC) (HCC) (Primary Dx) Social History Tobacco Use Types Packs/Day Years Used Date Smoking Tobacco: Never Assessed Personal Safety Answer Date Recorded Getting School Help Needed Not on file 02/15 Sex and Gender Information Value Date Recorded Sex Assigned at Not on file 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 Gender Identity Not on file Sexual Orientation Not on file documented as of this encounter Plan of Treatment Not on file documented as of this encounter Results * US Vein Mapping Fistula Access, Bilateral (03/01/2024 2:53 PM CDT) Anatomical Region Laterality Modality Vascular Bilateral Ultrasound 03/01/2024 2:31 PM CDT Narrative 03/01/2024 4:57 PM CDT [facility] - Department of Vascular Surgery, Vascular Laboratory [address] [place] [address] Upper Extremity Vein Mapping Report Patient Name: AIDA WHITTAKER : 1960 (63y 9m) Study Date: 03/01/2024 2:31:18 PM Gender: M Vault Clerk: LISSETTE Location: [facility] Provider: PAM DESAI ?Quality: Adequate Order Provider: PAM DESAI PROCEDURES: Mapping Report: Bilateral Upper Extremity Vein Mapping. INDICATIONS: Pre-operative workup for dialysis access placement. Measurements: Right - ? Left - Measurement ? Value ?Units ?Measurement ? Value ? Units Rt Axillary Vein Diameter ? 0.90 ? cm ? Lt Axillary Vein Diameter ? 0.62 ?cm Rt Prox Brachial Vein D. 1 ?0.54 ? cm ? Lt Prox Brachial Vein D. 1 ?0.61 ?cm Rt Prox Brachial Vein D. 2 ?0.51 ? cm ? Lt Prox Brachial Vein D. 2 ?0.47 ?cm Rt Mid Brachial Vein D. 1 ? 0.30 ? cm ? Lt Mid Brachial Vein D. 1 ? 0.40 ?cm Rt Mid Brachial Vein D. 2 ? 0.20 ? cm ? Lt Mid Brachial Vein D. 2 ? 0.19 ?cm Rt Dist Brachial Vein D. 1 ?0.23 ? cm ? Lt Dist Brachial Vein D. 1 ?0.35 ?cm Rt Dist Brachial Vein D. 2 ?0.27 ? cm ? Lt Dist Brachial Vein D. 2 ?0.25 ?cm Rt Cephalic Vein Zone 1 ? 0.42 ? cm ? Lt Cephalic Vein Zone 1 ? 0.36 ?cm Rt Cephalic Vein Zone 2 ? 0.43 ? cm ? Lt Cephalic Vein Zone 2 ? 0.39 ?cm Rt Cephalic Vein Zone 3 ? 0.41 ? cm ? Lt Cephalic Vein Zone 3 ? 0.43 ?cm Rt Cephalic Vein Zone 4 ? 0.42 ? cm ? Lt Cephalic Vein Zone 4 ? 0.35 ?cm Rt Cephalic Vein Zone 5 ? 0.40 ? cm ? Lt Cephalic Vein Zone 5 ? 0.35 ?cm Rt Cephalic Vein Zone 6 ? 0.36 ? cm ? Lt Cephalic Vein Zone 6 ? 0.23 ?cm Rt Cephalic Vein Zone 7 ? 0.37 ? cm ? Lt Cephalic Vein Zone 7 ? 0.23 ?cm Rt Basilic Vein Zone 1 ?0.32 ? cm ? Lt Basilic Vein Zone 1 ?0.39 ?cm Rt Basilic Vein Zone 2 ?0.46 ? cm ? Lt Basilic Vein Zone 2 ?0.43 ?cm Rt Basilic Vein Zone 3 ?0.39 ? cm ? Lt Basilic Vein Zone 3 ?0.38 ?cm Rt Basilic Vein Zone 4 ?0.36 ? cm ? Lt Basilic Vein Zone 4 ?0.38 ?cm Rt Basilic Vein Zone 5 ?0.22 ? cm ? Lt Basilic Vein Zone 5 ?0.27 ?cm Rt Basilic Vein Zone 6 ?0.30 ? cm ? Lt Basilic Vein Zone 6 ?0.24 ?cm Rt Basilic Vein Zone 7 ?0.25 ? cm ? Lt Basilic Vein Zone 7 ?0.21 ?cm Measurement ? Value ?Units ?Measurement ? Value ? Units Right - ? Left - - FINDINGS: Performing Vault Clerk: Rossi Medina RVT. Bilateral: Venous Doppler signals [...] bilateral cephalic and basilic veins reveals the cross- sectional measurements noted above. No evidence of superficial vein thrombus. HISTORY: ESRD. PREVIOUS STUDIES: No previous studies for comparison. DISCLAIMER: Zone 1 = proximal arm; Zone 2 = mid arm; Zone 3 = distal arm; Zone 4 = ante- cubital; Zone 5 = proximal forearm; Zone 6 = mid forearm; Zone 7 = distal forearm. All measurements are obtained with a tourniquet placed on the upper arm unless it is contraindicated and noted in the report. The study images and the final report [...] above. Electronically Signed By: Otto Arguelles MD [facility] 2024-03-01 16:56:09 CDT Procedure Note Otto Arguelles MD - 03/01/2024 [facility] - Department of Vascular Surgery,Vascular Laboratory [address] [place] [address] Upper Extremity Vein Mapping Report Patient Name: AIDA WHITTAKRE : 1960 (63y 9m) Study Date: 03/01/2024 2:31:18 PM Gender: M Vault Clerk: LISSETTE Location: [facility] Provider: PAM DESAI Quality: Adequate Order Provider: PAM DESAI PROCEDURES: Mapping Report: Bilateral Upper Extremity Vein Mapping. INDICATIONS: Pre-operative workup for dialysis access placement. Measurements: Right -Left - Measurement Value Units MeasurementValue Units Rt Axillary Vein Diameter 0.90 cm Lt Axillary Vein Diameter0.62 cm Rt Prox Brachial Vein D. 1 0.54 cm Lt Prox Brachial Vein D. 10.61 cm Rt Prox Brachial Vein D. 2 0.51 cm Lt Prox Brachial Vein D. 20.47 cm Rt Mid Brachial Vein D. 1 0.30 cm Lt Mid Brachial Vein D. 10.40 cm Rt Mid Brachial Vein D. 2 0.20 cm Lt Mid Brachial Vein D. 20.19 cm Rt Dist Brachial Vein D. 1 0.23 cm Lt Dist Brachial Vein D. 10.35 cm Rt Dist Brachial Vein D. 2 0.27 cm Lt Dist Brachial Vein D. 20.25 cm Rt Cephalic Vein Zone 1 0.42 cm Lt Cephalic Vein Zone 10.36 cm Rt Cephalic Vein Zone 2 0.43 cm Lt Cephalic Vein Zone 20.39 cm Rt Cephalic Vein Zone 3 0.41 cm Lt Cephalic Vein Zone 30.43 cm Rt Cephalic Vein Zone 4 0.42 cm Lt Cephalic Vein Zone 40.35 cm Rt Cephalic Vein Zone 5 0.40 cm Lt Cephalic Vein Zone 50.35 cm Rt Cephalic Vein Zone 6 0.36 cm Lt Cephalic Vein Zone 60.23 cm Rt Cephalic Vein Zone 7 0.37 cm Lt Cephalic Vein Zone 70.23 cm Rt Basilic Vein Zone 1 0.32 cm Lt Basilic Vein Zone 10.39 cm Rt Basilic Vein Zone 2 0.46 cm Lt Basilic Vein Zone 20.43 cm Rt Basilic Vein Zone 3 0.39 cm Lt Basilic Vein Zone 30.38 cm Rt Basilic Vein Zone 4 0.36 cm Lt Basilic Vein Zone 40.38 cm Rt Basilic Vein Zone 5 0.22 cm Lt Basilic Vein Zone 50.27 cm Rt Basilic Vein Zone 6 0.30 cm Lt Basilic Vein Zone 60.24 cm Rt Basilic Vein Zone 7 0.25 cm Lt Basilic Vein Zone 70.21 cm Measurement Value Units MeasurementValue Units Right -Left - - FINDINGS: Performing Vault Clerk: Rossi Medina RVT. Bilateral: Venous Doppler signals in the bilateral upper extremities arewithin normal limits for spontaneity and phasicity; normal response to compressionmaneuvers. Duplex imaging of bilateral cephalic and basilic veins reveals thecross-sectional measurements noted above. No evidence of superficial vein thrombus. CONCLUSIONS: 1. No evidence of acute deep vein thrombosis bilaterally in the upperextremities. 2. Duplex imaging of bilateral cephalic and basilic veins reveals thecross- sectional measurements noted above. No evidence of superficial vein thrombus. HISTORY: ESRD. PREVIOUS STUDIES: No previous studies for comparison. DISCLAIMER: Zone 1 = proximal arm; Zone 2 = mid arm; Zone 3 = distal arm; Zone 4 =ante- cubital; Zone 5 = proximal forearm; Zone 6 = mid forearm; Zone 7 = distal forearm. All measurements are obtained with a tourniquet placed on the upper armunless it is contraindicated and noted in the report. The study images and the final report [...] above. Electronically Signed By: Otto Arguelles MD [facility] 2024-03-01 16:56:09 CDT us Pam Desai MD IMG US PROCEDURES Final Result documented in this encounter Visit Diagnoses Diagnosis End stage renal disease (CMS/HCC) (HCC)- Primary End stage renal disease End stage renal disease (CMS/HCC) (HCC) End stage renal disease documented in this encounter
--- OUTSIDE RECORDS SUMMARY | 2024-09-24 06:06 | XMS_ITS | Encounter Summary ---
Author Organization [facility] Care Team Providers Care Branch Store Manager Name Role Phone Unavailable Primary Care Provider Unavailabl e Encounter Details Date Type Department Care Team (Late st Contact Info) Description 04/10/2015 9:32 AM CDT - 04/10/2015 2:06 PM CDT [facility] Rice, FBI FIELD AGENT [address] [place], [place] [id number] Other lymphedema; Tobacco use disorder Social History Tobacco Use Types Packs/Day Years Used Date Smoking Tobacco: Never Assessed Sex and Gender Information Value Date Recorded Sex Assigned at Not on file 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 Gender Identity Not on file Sexual Orientation Not on file documented as of this encounter Plan of Treatment Not on file documented as of this encounter Procedures Procedure Name Priority Date/Time Associated Diagnosis Comments CHEST RADIOGRAPHY, FRONTAL (AP), LATERAL Routine 04/10/2015 12:07 PM CDT URINALYSIS Routine 04/10/2015 11:58 AM CDT SERUM TROPONIN I Routine 04/10/2015 11:1 6 AM CDT PLASMA PROTHROMBIN TIME (PT) Routine 04/10/2015 11:16 AM CDT PLASMA PARTIAL THROMBOPLASTIN TIME (PTT) Routine 04/10/2015 11:16 AM CDT PLASMA BASIC METABOLIC PANEL Routine 04/10/2015 11:16 AM CDT BLOOD B-TYPE NATRIURETIC PEPTIDE (BNP) Routine 04/10/2015 11:16 AM CDT BLOOD CELL COUNT (CBC) Routine 5 11:16 AM CDT DISCHARGE LABORATORY CUMULATIVE REPORT 04/10/2015 documented in this encounter Results * CHEST RADIOGRAPHY, FRONTAL (AP), LATERAL (04/10/2015 12:07 PM CDT) Anatomical Region Laterality Modality N/A Radiographic Haleigh ging 04/10/2015 12:0 7 PM CDT Narrative 04/10/2015 12:25 PM CDT ADRIANNE HERNÁNDEZ M.D. FINAL REPORT ACC# ??Date Time ??Exam [id number] Apr 10, 2015 12:07:00 [id number] Chest 2 views Frontl & Lat EXAMINATION: ?? Chest two views. HISTORY: Dyspnea FINDINGS: No prior studies available for comparison. Heart size and mediastinal contour are normal. There is no pleural effusion, pneumothorax, pneumonia, or pulmonary edema. IMPRESSION: ?? No acute radiographic cardiopulmonary abnormality. Requested By: NAVJOT HANLEY Dictated By: ?? ADRIANNE HERNÁNDEZ M.D. ??on Apr 10 2015 12:25P This document has been electronically signed by: ADRIANNE HERNÁNDEZ M.D. on Apr 10 2015 12:25P [id number] Procedure Note Provider, MD Nadya - 01/17/2017 ADRIANNE HERNÁNDEZ M.D. FINAL REPORT ACC# Date Time Exam [id number] Apr 10, 2015 12:07:00 [id number] Chest 2 views Frontl & Lat EXAMINATION: Chest two views. HISTORY: Dyspnea FINDINGS: No prior studies available for comparison. Heart size and mediastinal contour are normal. There is no pleural effusion, pneumothorax, pneumonia, or pulmonary edema. IMPRESSION: No acute radiographic cardiopulmonary abnormality. Requested By: NAVJOT HANLEY Dictated By: ADRIANNE HERNÁNDEZ M.D. on Apr 10 2015 12:25P This document has been electronically signed by: ADRIANNE HERNÁNDEZ M.D. on Apr 10 2015 12:25P [id number] Historical Provider MD DUNCAN XR PROCEDURES Final R esult * (ABNORMAL) Urinalysis (04/10/2015 11:58 AM CDT) Color, ur Yellow Yellow HISTORICAL RESULTS Clarity, ur Cloudy(A) Clear HISTORIC AL RESULTS Specific gravity, ur 1.011 1.003 - 1.030 HISTORICAL RESULTS pH, ur 7.0 5.0 - 8.0 HISTORICAL RESULTS Protein, ur Negative Trace HISTORIC AL RESULTS Glucose, ur Negative Negative HISTORIC AL RESULTS Ketones, ur Negative Negative HISTORIC AL RESULTS Bilirubin, ur Negative Negative HISTOR ICAL RESULTS U Blood Negative Negative HISTORICAL RESULTS Urobilinogen, quant, ur 2.0 0.0 - 2.0 mg/dl HISTORICAL RESULTS Nitrites, ur Negative Negative HISTORI AMALIA RESULTS Leukocyte esterase, ur Negative Negative HISTORICAL RESULTS Urine 04/10/2015 11:5 8 AM CDT Result [facility] Navjot Hanley FBI FIELD AGENT LAB BLOOD ORDERABLES Fi nal Result Performing Organization Address [facility] de Phone Number HISTORICAL RESULTS * Plasma partial thromboplastin time (PTT) (04/10/2015 11:16 AM CDT) Pathologist [facility] APTT 28.3 25.0 - 37.0 seconds HISTORICAL RESULTS Comment: Interpretive Data Therapeutic heparin range:60.0 - 94.0 sec based on correlation with therapeutic heparin activity range of 0.3 -0.7 Units/mL. Current interpretive data was last revised on 2011. Plasma 04/10/2015 11:1 6 AM CDT Navjot Hanley CRNA LAB BLOOD ORDERABLES Fi nal Result Performing Organization Address City/[facility] Co de Phone Number HISTORICAL RESULTS * Plasma basic metabolic panel (04/10/2015 11:16 AM CDT) Sodium 138 135 - 145 mmol/L HISTORICAL RESULTS K, pl 3.5 3.3 - 4.9 mmol/L HISTORICAL RESULTS Chloride 104 97 - 110 mmol/L HISTORICAL RESULTS CO2 26 22 - 32 mmol/L HISTORICAL RESULTS A. gap 8 0 - 16 mmol/L HISTORICAL RESULTS Glucose 111 70 - 199 mg/dl HISTORICAL RESULTS BUN 8 8 - 25 mg/dl HISTORICAL RESULTS Creatinine 0.89 0.70 - 1.30 mg/dl HISTORICAL RESULTS Calcium 8.7 8.6 - 10.3 mg/dl HISTORICAL RESULTS Plasma 04/10/2015 11:1 6 AM CDT Navjot Hanley CRNA LAB BLOOD ORDERABLES Fi nal Result Performing Organization Address [facility] de Phone Number HISTORICAL RESULTS * Serum troponin I (04/10/2015 11:16 AM CDT) Troponin I <0.03 0.00 - 0.03 ng/ml HISTORICAL RESULTS Comment: Interpretive Data Serial determinations are recommended for the diagnosis of myocardial infarction (Third [place] Definition of Myocardial Infarction. ??J Am Dannielle Cardiol 2012;60:1581-98). Current interpretive data was last revised on 13. Serum 04/10/2015 11:1 6 AM CDT Navjot Hanley CRNA LAB BLOOD ORDERABLES Fi nal Result Performing Organization Address [facility] de Phone Number HISTORICAL RESULTS * Plasma prothrombin time (PT) (04/10/2015 11:16 AM CDT) Prothrombin time (PT) 12.2 9.2 - 13.0 seconds HISTORICAL RESULTS INR 1.13 0.90 - 1.20 HISTORIC AL RESULTS Comment: Interpretive Data Inpatient therapeutic ranges* Atrial fibrillation ?2.0-3.0 INR Venous thrombo-embolism ?2.0-3.0 INR Bioprosthetic heart valve ?* Mechanical heart valve, bileaflet or tilting disk,aortic position ? 2.0-3.0 INR All other,or bileaflet or tilting disk, in mitral position ? 2.5-3.5 INR *See the pharmacy resource directory (PHRED) for an updated copy of the Tool Book at http://[email or web address].nsf Current Interpretive Data was last revised 2011. Plasma 04/10/2015 11:1 6 AM CDT Navjot Hanley FBI FIELD AGENT LAB BLOOD ORDERABLES Fi nal Result HISTORICAL RESULTS * (ABNORMAL) Blood cell count (CBC) (04/10/2015 11:16 AM CDT) WBC 5.9 3.8 - 9.8 K/cumm HISTORICAL RESULTS RBC 3.38(L) 4.50 - 5.70 M/cumm HISTORICAL RESULTS Hgb 9.2(L) 13.8 - 17.2 g/dl HISTORICAL RESULTS Hct 28.2(L) 40.7 - 50.3 % HISTORICAL RESULTS MCV 83.5 80.0 - 97.6 fl HISTORICAL RESULTS MCH 27.2 26.7 - 33.7 pg HISTORICAL RESULTS MCHC 32.6(L) 32.7 - 35.5 g/dl HISTORICAL RESULTS Rdw 17.1(H) 11.8 - 14.6 % HISTORICAL RESULTS Platelets 284 140 - 440 K/cumm HISTORICAL RESULTS MPV 8.6 6.8 - 10.4 fl HISTORICAL RESULTS Neutrophils 62.3 38.7 - 74.5 % HISTORICAL RESULTS Lymphocytes 20.7 20.0 - 54.3 % HISTORICAL RESULTS Monos 8.5 4.3 - 13.5 % HISTORICAL RESULTS Eosinophils 7.8(H) 0.0 - 6.0 % HISTORICAL RESULTS Basophils 0.7 0.0 - 3.0 % HISTORICAL RESULTS Neutrophils, abs 3.7 1.8 - 6.6 K/cumm HISTORICAL RESULTS Lymphocytes, abs 1.2 1.2 - 3.3 K/cumm HISTORICAL RESULTS Monocytes, absolute 0.5 0.2 - 1.2 K/cumm HISTORICAL RESULTS Eosinophils, abs 0.5 0.0 - 0.5 K/cumm HISTORICAL RESULTS Basophils, abs 0.0 0.0 - 0.2 K/cumm HISTORICAL RESULTS Blood specimen (specimen) 04/10/2015 11:16 AM CDT Navjot Mariposa Dayan PEDERSEN LAB BLOOD ORDERABLES Fi nal Result Performing Organization Address City/[facility] Co de Phone Number HISTORICAL RESULTS * Blood B-type natriuretic peptide (BNP) (04/10/2015 11:16 AM CDT) BNP 63 0 - 100 pg/ml HISTORICAL RESULTS Blood specimen (specimen) 04/10/2015 11:16 AM CDT Navjot Hanley CRNA LAB BLOOD ORDERABLES Fi nal Result Performing Organization Address [facility] de Phone Number HISTORICAL RESULTS * DISCHARGE LABORATORY CUMULATIVE REPORT (04/10/2015) Narrative 04/10/2015 Ordered by an unspecified provider. Historical Provider LAB BLOOD ORDERABLES Antonina l Result documented in this encounter Visit Diagnoses Diagnosis Other lymphedema Tobacco use disorder documented in this encounter
--- OUTSIDE RECORDS SUMMARY | 2024-09-24 06:06 | XMS_ITS | Encounter Summary ---
Author Organization [facility] Address [address] [facility] [address] [place] [address] Phone Care Team Providers Care Charter Coordinator Name Role Phone Tawanda Kelley MD Primary Care Provider [phone] Sotero Verma MD Unavailable [phone] Lizbeth Sánchez RN Unavailable [phone] Encounter Details Date Type Department Care Team (Late st Contact Info) Description 09/07/2024 Telephone [facility] Surgery [address] [facility] [address] [place] [address] Brendan Bui MD [address] [facility] [address] [place] [address] Social History Tobacco Use Types Packs/Day Years [...] on file 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 I told her I would check and one of us would be in touch. She can be reached on her cell at [phone]. ATTENDANT documented in this encounter Plan of Treatment Not on file documented as of this encounter Visit Diagnoses Not on filedocumented in this encounter Care Teams Charter Coordinator Relationship Specialty Start Date End Date Tawanda Kelley MD [address] [place] [address] PCP - General Internal Medicine 03/01/24 Sotero Verma MD [facility] [facility] [address] [place] [address] Referring Physician Nephrology 05/10/24 Lizbeth Sánchez, RN [address] [place], [place] [id number] Engineer/Conductor 05/17/24 documented as of this encounter
--- OUTSIDE RECORDS SUMMARY | 2024-09-24 06:06 | XMS_ITS | Encounter Summary ---
Author Organization [facility] Healthcare Address [address] [place] [address] Care Team Providers Care Mechanics Supervisor Name Role Phone Tawanda Kelley MD Primary Care Provider [phone] Sotero Verma MD Unavailable [phone] Lizbeth Sánchez RN Unavailable [phone] Encounter Details Date Type Department Care Team (Late st Contact Info) Description 05/29/2024 Telephone [facility] Transplant Kidney [address] [facility] [address] [phone] [place] [address] Lizbeth Sánchez, RN [address] [place] [address] Social History Tobacco Use Types Packs/Day Years [...] on file 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 Cooler update and letters sent. documented in this encounter Plan of Treatment Not on file documented as of this encounter Visit Diagnoses Not on filedocumented in this encounter Care Teams Mechanics Supervisor Relationship Specialty Start Date End Date Tawanda Kelley MD [address] [place] [address] PCP - General Internal Medicine 03/01/24 Sotero Verma MD [address] [facility] [address] [place] [address] Referring Physician Nephrology 05/10/24 Lizbeth Sánchez, RN [address] [place] [address] Cigar Head Piercer 05/17/24 documented as of this encounter
--- OUTSIDE RECORDS SUMMARY | 2024-09-24 06:06 | XMS_ITS | Referral Summary ---
Author Organization [facility] Address [address] [place] [address] Care Team Providers Care Hood Maker Name Role Phone Tawanda Kelley MD Primary Care Provider [phone] Sotero Verma MD Unavailable [phone] Lizbeth Sánchez RN Unavailable [phone] Encounters Date Type Department Care Team Description 09/07/2024 Telephone [facility] Surgery [address] [facility] Floor 1 [place] [address] Brendan Bui MD from Last 3 Months Allergies No known active allergies Medications tamsulosin (FLOMAX) 0.4 mg extended release capsuleIndications:b enign prostatic hyperplasia with lower urinary tract sx Take 1 capsule (0.4 mg total) by mouth church history professor before breakfast 05/30/20 23 Active sevelamer (RENAGEL) [...] (end stage renal disease) on dialysis 03/20 Social History Tobacco Use Types Packs/Day Years [...] on file 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 Gender Identity Not on file Sexual [...] 05/17/2024 9:01 AM CDT Plan of Treatment Not on file Insurance [facility] [place] [address] [facility] [place] [address] Care Teams Hood Maker Relationship Specialty Start Date End Date Tawanda Kelley MD [address] [place] [address] PCP - General Internal Medicine 03/01/24 Sotero Verma MD [address] [facility] [address] [place] [address] Referring Physician Nephrology 05/10/24 Lizbeth Sánchez, RN [address] [place] [address] Dock Operations Supervisor 05/17/24
--- OUTSIDE RECORDS SUMMARY | 2024-09-24 06:06 | XMS_ITS | Encounter Summary ---
Author Organization [facility] Address [address] [facility] [address] [place] [address] Phone Care Team Providers Care Education Reporter Name Role Phone Tawanda Kelley MD Primary Care Provider [phone] Reason for Referral * Diagnostic Imaging (Routine) - Authorized Specialty Diagnoses / Procedures Referred By Contac t Referred To Contact Diagnoses End stage renal disease (CMS/HCC) (HCC) Procedures US Hemodialysis Access Pam Desai MD [address] [facility] [address] [place] [address] Phone: tel: fax: [facility] (All Locations) Referral ID Status Reason Start Date Expiration Date V isits Requested Visits Authorized [id number] Authorized 04/09/2024 05/09/[phone] Encounter Details Date Type Department Care Team (Late st Contact Info) Description 04/09/2024 Orders Only [facility] Surgery [address] [facility] 8th [place] [address] [place] [address] Pam Desai MD [address] [facility] [address] [place] [address] End stage renal disease (CMS/HCC) (HCC) (Primary Dx) Social History Tobacco Use Types Packs/Day Years Used Date Smoking Tobacco: Former Cigarettes Smokeless Tobacco: Never AUDIT-C Answer Date Recorded Q1: How often do you have a drink containing alcohol? Never 03/30/2024 Q2: How many drinks containi ng alcohol do you have on a typical day when you are drinking? 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 : 1960 (63y 11m) ??Gender: M Study Date: 05-10-2024 01:03:31 PM Occupational Rehabilitation Aide: TT ??Location: [facility] Order Provider: PAM DESAI Quality: Adequate [...] ?0.54 ? cm ? Rt Deep Vein [place] ?124.00 ?cm/s Rt Outflow Distal Arm Depth [...] ? 0.43 ? cm Rt Deep Vein [place] Diameter ?0.41 ? cm Rt Deep Vein [place] Depth ? 1.46 ? cm Rt Inflow Artery Diameter ? 0.35 ? cm Measurement ? Value ?Units ?Measurement ?Value ? Units Diameter/Depth ? Velocities - FINDINGS: Performing Occupational Rehabilitation Aide: Brant Medina RVT. [place] Arterial Inflow Normal: No evidence of arterial [...] above. Electronically Signed By: Otto Arguelles MD [facility] 2024-05-11 04:36:02 CDT Procedure Note Otto Arguelles MD - 05/11/2024 [facility] - Department of Vascular Surgery,Vascular Laboratory [address] [place] [address] Dialysis Access Fistula/Graft Duplex Report Patient Name: AIDA WHITTAKER : 1960 (63y 11m) Gender: M Study Date: 05-10-2024 01:03:31 PM Occupational Rehabilitation Aide: TREMAYNE Location: [facility] Order Provider: PAM DESAI Quality: Adequate Ref Provider: PAM DESAI PROCEDURES: Vascular Report: Right Upper Extremity Arterial-Venous Fistula DuplexExam. Radial artery to Cephalic vein. INDICATIONS: N18.6 End stage renal disease. Measurements: Diameter/DepthVelocities Measurement Value Units MeasurementValue Units Rt Anastomosis Diameter 0.56 cm Rt Inflow Dgzktc192.00 cm/s Rt Anastomosis Depth 0.89 cm Inflow [...] Arm Depth 0.43 cm Rt Deep Vein [place] Diameter 0.41 cm Rt Deep Vein [place] Depth 1.46 cm Rt Inflow Artery Diameter 0.35 cm Measurement Value Units MeasurementValue Units Diameter/DepthVelocities - FINDINGS: Performing Occupational Rehabilitation Aide: Brant Medina RVT. [place] Arterial Inflow Normal: No evidence of arterial [...] above. Electronically Signed By: Otto Arguelles MD [facility] 2024-05-11 04:36:02 CDT us Pam Desai MD IM US PROCEDURES Final Result documented in this encounter Visit Diagnoses Diagnosis End stage renal disease (CMS/HCC) (HCC)- Primary End stage renal disease End stage renal disease (CMS/HCC) (HCC) End stage renal disease documented in this encounter Care Teams Education Reporter Relationship Specialty Start Date End Date Tawanda Kelley MD [address] [place] [address] PCP - General Internal Medicine 03/01/24 documented as of this encounter
--- OUTSIDE RECORDS SUMMARY | 2024-09-24 06:06 | XMS_ITS | Encounter Summary ---
Author Organization [facility] Address [address] [facility] [address] [place] [address] Phone Care Team Providers Care Wire Straightener Name Role Phone Tawanda Kelley MD Primary Care Provider [phone] Reason for Visit * Diagnostic Imaging (Routine) - Authorized Specialty Diagnoses / Procedures Referred By Contac t Referred To Contact Diagnoses End stage renal disease (CMS/HCC) (HCC) Procedures US Vein Mapping Fistula Access, Bilateral Pam Desai MD [address] [facility] [address] [place] [address] Phone: tel: fax: [facility] (All Locations) Referral ID Status Reason Start Date Expiration Date V isits Requested Visits Authorized Authorized 02/16/2024 03/17/[phone] Encounter Details Date Type Department Care Team (Latest Contact Info) Description 03/01/2024 2:30 PM CDT Ancillary Procedure [facility] Vascular Lab at the [facility] [address] [place] [address] for Advanced Medicine 8th [place] [address] [place] [address] End stage renal disease (CMS/HCC) (HCC) Social History Tobacco Use Types Packs/Day Years Used Date Smoking Tobacco: Never Assessed Personal Safety Answer Date Recorded Getting School Help Needed Not on file 02/15 Sex and Gender Information Value Date Recorded Sex Assigned at Not on file 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 Gender Identity Not on file Sexual Orientation Not on file documented as of this encounter Plan of Treatment Not on file documented as of this encounter Procedures Procedure Name Priority Date/Time Associated Diagnosis Comments US VEIN MAPPING FISTULA ACCESS, BILATERAL Schedule Routine, Read Routine (OP Routine) 03/01/2024 2:53 PM CDT End stage renal disease (CMS/HCC) (HCC) documented in this encounter Results * US Vein Mapping Fistula Access, Bilateral (03/01/2024 2:53 PM CDT) Anatomical Region Laterality Modality Vascular Bilateral Ultrasound 03/01/2024 2:31 PM CDT Narrative 03/01/2024 4:57 PM CDT [facility] - Department of Vascular Surgery, Vascular Laboratory [address] [place] [address] Upper Extremity Vein Mapping Report Patient Name: AIDA WHITTAKER : 1960 (63y 9m) Study Date: 03/01/2024 2:31:18 PM Gender: M Hoop Machine Operator: LISSETTE Location: [facility] Provider: PAM DESAI ?Quality: Adequate Order [...] - ? Left - - FINDINGS: Performing Hoop Machine Operator: Rossi Medina RVT. Bilateral: Venous [...] above. Electronically Signed By: Otto Arguelles MD FACS 2024-03-01 16:56:09 CDT Procedure Note Otto Arguelles MD - 03/01/2024 [facility] - Department of Vascular Surgery,Vascular Laboratory [address] [place] [address] Upper Extremity Vein Mapping Report Patient Name: AIDA WHITTAKER : 1960 (63y 9m) Study Date: 03/01/2024 2:31:18 PM Gender: M Hoop Machine Operator: LISSETTE Location: [facility] Ref Provider: PAM DESAI Quality: Adequate Order Provider: [...] Units Right -Left - - FINDINGS: Performing Hoop Machine Operator: Rossi Medina RVT. Bilateral: Venous [...] above. Electronically Signed By: Otto Arguelles MD [facility] 2024-03-01 16:56:09 CDT us Pam Desai MD IM US PROCEDURES Final Result documented in this encounter Visit Diagnoses Diagnosis End stage renal disease (CMS/HCC) (HCC) End stage renal disease documented in this encounter Care Teams Wire Straightener Relationship Specialty Start Date End Date Tawanda Kelley MD [address] [place] [address] PCP - General Internal Medicine 03/01/24 documented as of this encounter
--- OUTSIDE RECORDS SUMMARY | 2024-09-24 06:06 | XMS_ITS | Encounter Summary ---
Author Organization [facility] Healthcare Address [address] [place] [address] Care Team Providers Care Public Service Representative Name Role Phone Tawanda Kelley MD Primary Care Provider [phone] Sotero Verma MD Unavailable [phone] Lizbeth Sánchez RN Unavailable [phone] Encounter Details Date Type Department Care Team (Late st Contact Info) Description 05/29/2024 Telephone [facility] Transplant Kidney [address] [facility] [phone] [place], [place] [id number] Nara Casanova Social History Tobacco Use Types [...] on file 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 A woman answered from [facility] statingI had reached the nurse's station and that every resident has their own #. She took a message down and said she would ask the patient to call me. Patient's has [employer] insurance which does not cover transplant at [facility]. Please make patient ineligible due to non - contracted insurance. documented in this encounter Plan of Treatment Not on file documented as of this encounter Visit Diagnoses Not on filedocumented in this encounter Care Teams Public Service Representative Relationship Specialty Start Date End Date Tawanda Kellye MD [address] [place] [address] PCP - General Internal Medicine 03/01/24 Sotero Verma MD [facility] [facility] [address] [place] [address] Referring Physician Nephrology 05/10/24 Lizbeth Sánchez, RN [address] [place] [address] Financial Planner 05/17/24 documented as of this encounter
== END 2024-09-17 09:22 ==
PROVIDERS: Emergency Medicine; Emergency Provider Family Medicine
DX: T83.032A Leakage of nephrostomy catheter, initial encounter (principal); N18.6 End stage renal disease; Z99.2 Dependence on renal dialysis; N40.0 Benign prostatic hyperplasia without lower urinary tract symptoms; J43.9 Emphysema, unspecified; F17.210 Nicotine dependence, cigarettes, uncomplicated; Z85.828 Personal history of other malignant neoplasm of skin; Y84.6 Urinary catheterization as the cause of abnormal reaction of the patient, or of later complication, without mention of misadventure at the time of the procedure
CPT/HCPCS: 36415; 74176; 80053; 81001; 85025; 85610; 85730; 87086; 87186; 99284

== ENCOUNTER 2025-01-10 08:22 | Outpatient (CLI) | payer MEDICARE, OTHER, SELFPAY ==
--- NOTE | ~2025-01-10 | XR_ITS ---
EXAMINATION: XR_NEPHROREM_CR DATE: 01/10/2025 11:26 INDICATION: Bilateral nephrostomy tube removals TECHNIQUE: The procedure including the risks and benefits was discussed with the patient. Risks discu ssed included bleeding and infection. The patient understood the risks and agreed to proceed. The rickie ateral percutaneous nephrostomy tubes and skin surrounding the access sites were prepped and draped i n usual sterile fashion. Attention was first turned to the left nephrostomy tube which was cut and a J-wire was advanced through the tube. The tube was then withdrawn over the wire to include the loop a nd then both the wire and tubular completely withdrawn from the patient. This procedure was repeated for withdrawal of the right percutaneous nephrostomy tube. Antibiotic ointment and sterile dressings were applied to both the access sites. There were no immediate complications. The amount of fluorosco py time used during this procedure was 2.9 minutes. A total of 2 fluoroscopic images were recorded. FINDINGS: Images demonstrate the uncoiled percutaneous nephrostomy tubes being withdrawn over the wires. IMPRESSION: 1. Successful fluoroscopic guided removal over wires of bilateral percutaneous gastrostomy tubes. Reviewed, dictated and finalized at location A.
--- OUTSIDE RECORDS SUMMARY | 2025-01-10 08:36 | XMS_ITS | Clinical Summary ---
Author Organization [facility] Address [address] [place] [address] Care Team Providers Care Roll Forming Machine Operator Name Role Phone Tawanda Kelley MD Primary Care Provider [phone] Sotero Verma MD Unavailable [phone] Aleshia Sánchez RN Unavailable [phone] Allergies No known active allergies Medications tamsulosin (FLOMAX) 0.4 mg extended release capsuleIndications:b enign prostatic hyperplasia with lower urinary tract sx Take 1 capsule (0.4 mg total) by mouth program developer before breakfast 05/30/20 23 Active sevelamer (RENAGEL) [...] as needed for pain 5 tablet 04/12/20 Active Active Problems Problem Noted Date Diagnosed Date ESRD (end stage renal disease) 01/08/2025 ESRD (end stage renal disease) on dialysis 03/20 Encounters Date Type Department Care Team Description 01/10/2025 Telephone [facility] Surgery [address] [facility] Floor 1 [place] [address] Pam Desai MD 01/08/2025 11:30 AM CDT Office Visit [facility] Surgery Critical access hospital[facility] 8th [place] [address] [place] [address] Pam Desai MD AVF (arteriovenous fistula) (Primary Dx) 12/20/2024 3:15 PM CDT Ancillary Procedure [facility] Vascular Lab at the [address] 8th [place] [address] [place] [address] End stage renal disease (HCC) 12/20/2024 Telephone [facility] Surgery [address] [facility] Floor 1 [place] [address] Pam Desai MD 12/03/2024 Orders Only [facility] Vascular Surgery [address] [place] [address] Office [address] [place] [address] Pam Desai MD End stage renal disease (HCC) (Primary Dx) 11/28/2024 Telephone [facility] Vascular Surgery [address] [place] [address] Office [address] [place] [address] Pam Desai MD from Last 3 Months Surgical History Surgery Date Site/Laterality Comments CYSTOSCOPY 09/19/2022 - 09/18/2023 AV FISTULA PLACEMENT 04/12/2024 Right Right radial-cephalic AVF RECONSTRUCTION 05/23/2024 RECONSTRUCTION LEFT NASAL/CHEEK DEFECT, WOUND DEBRIDEMENT, SKIN GRAFT; FOREHEAD FLAP RHINOPLASTY 05/22/2024 Left Left partial rhinectomy BRONCHOSCOPY 05/18/2024 BRONCHOSCOPY WITH ROBOT ASSIST, BRONCHOALVEOLAR LAVAGE, TRANSBRONCHIAL BIOPSIES, AND BRUSHINGS LUNG LOBECTOMY 07/17/2024 Left Video-assisted thoracoscopic Left upper lobe Lingular sparing Segmentectomy PLASTIC SURGERY 07/20/2024 DIVISION AND INSET PARAMEDIAN FOREHEAD FLAP Medical History Medical History Date Comments Chronic [...] on file 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 Gender Identity Not on file Sexual Orientation Not on file Obstetrics History Last Filed Vital Signs Vital Sign Reading Time Taken Comments Blood Pressure 121/73 01/08/2025 11:51 AM CDT Pulse 91 01/08/2025 11:51 AM CDT Temperature 36.5 C (97.7 F) 04/12/2024 11:20 AM CDT Respiratory Rate 13 04/12/2024 11:00 AM CDT Oxygen Saturation 98% 01/08/2025 11:51 AM CDT Inhaled Oxygen Concentration - - Weight 96.2 kg (212 lb) 01/08/2025 11:51 AM CDT Height 172.7 cm (5' 8 ) 01/08/2025 11:51 AM CDT Body Mass Index 32.23 01/08/2025 11:51 AM CDT Plan of Treatment Health Maintenance Due Date Last Done Comments Colon Cancer Screening-Colonoscopy 1960 Depression Screening 1960 Fall Risk Assessment 1960 Hepatitis C Screening 1960 Prostate Cancer Screening-PSA 1960 DTaP/Tdap/Td Vaccine (1 - Tdap) 1970 Pneumococcal vaccine 65+ (1 of 1 - PCV) 2009 Zoster Vaccine (1 of 2) 2009 Abdominal Aortic Aneurysm (AAA) Screen 2024 Well Visit 65+ 2024 Influenza Vaccine (Season Ended) 2025 Hepatitis B Screening Completed 04/11/2024, 024 Procedures Procedure Name Priority Date/Time Associated Diagnosis Comments US HEMODIALYSIS ACCESS Schedule Routine, Read Routine (OP Routine) 12/20/2024 4:16 PM CDT End stage renal disease (HCC) from Last 3 Months Results * US Hemodialysis Access (12/20/2024 4:16 PM CDT) Anatomical Region Laterality Modality Vascular N/A Ultrasound 12/20/2024 3:24 PM CDT Narrative 12/20/2024 7:37 PM CDT [facility] - Department of Vascular Surgery, Vascular Laboratory [address] [place] [address] Dialysis Access Fistula/Graft Duplex Report Patient Name: AIDA WHITTAKER : 1960 (64y 6m) Gender: M Study Date: 12/20/2024 03:24:17 PM Special Education Teacher: Location: [facility] Order Provider: PAM DESAI Quality: Adequate Ref Provider: PAM DESAI PROCEDURES: Vascular Report: Left Upper Extremity Arterial-Venous Fistula Duplex Exam. INDICATIONS: N18.6 End stage renal disease. MEASUREMENTS: Diameter/Depth Value Units Velocities Value Units Rt Anastomosis Diameter 0.53 cm Rt Inflow Artery 132.00 cm/s Rt Anastomosis Depth 0.50 cm Rt Vein Dist Forearm PSV 266.00 cm/s Rt Outflow Distal Forearm Diameter 0.70 cm Rt Vein Mid Forearm PSV 308.00 cm/s Rt Outflow Mid Forearm Diameter 0.30 cm Rt Vein Prox Forearm PSV 263.00 cm/s Rt Outflow Mid Forearm Depth 0.70 cm Rt Arterial Anastomosis 437.00 cm/s Rt Outflow Proximal Forearm Diameter 0.40 cm Rt Axillary Vein PSV 36.80 cm/s Rt Outflow Proximal Forearm Depth 1.00 cm Rt Subclavian Vein 34.70 cm/s Rt Outflow Distal Arm Diameter 0.58 cm Rt Outflow Distal Arm Depth 0.18 cm Rt Outflow Mid Arm Diameter 0.68 cm Rt Outflow Mid Arm Depth 0.25 cm Rt Outflow Proximal Arm Diameter 0.50 cm Rt Outflow Proximal Arm Depth 0.73 cm Rt Inflow Artery Diameter 0.68 cm Diameter/Depth Value Units Velocities Value Units FINDINGS: Performing Special Education Teacher: Janeth Gutierrez RVT. [place] Arterial Inflow Normal: No evidence of arterial stenosis in the inflow vessel. Anastomosis: The fistula anastomosis is patent. Venous Outflow: No evidence of stenosis noted in the venous outflow vessel. Volume Flow: Three volume flow measurements are performed at the outflow vein (graft); an averaged volume flow is 625 cc/min. Inflow artery volume flow is also obtained, measuring 1254 cc/min. CONCLUSIONS: 1. Patent hemodialysis fistula with no evidence of significant narrowing. 2. Three volume flow measurements are performed at the outflow vein (graft); an averaged volume flow is 625 cc/min. Inflow artery volume flow is also obtained, measuring 1254 cc/min. HISTORY: End-stage renal disease. PREVIOUS STUDIES: Previous study on 05/10/24, patent AV fistula. DISCLAIMER: The study images and the final [...] that is provided above. Electronically Signed By: John Rapp MD FACS 12/20/2024 7:17:01 PM CDT Procedure Note John Rapp MD - 12/20/2024 [facility] - Department of Vascular Surgery,Vascular Laboratory [address] [place] [address] Dialysis Access Fistula/Graft Duplex Report Patient Name: AIDA WHITTAKER : 1960 (64y 6m) Gender: M Study Date: 12/20/2024 03:24:17 PM Special Education Teacher: Location: [facility] Order Provider: PAM DESAI Quality: Adequate Ref Provider: PAM DESAI PROCEDURES: Vascular Report: Left Upper Extremity Arterial-Venous Fistula DuplexExam. INDICATIONS: N18.6 End stage renal disease. MEASUREMENTS: Diameter/Depth Value Units Velocities Value Units Rt Anastomosis Diameter 0.53 cm Rt Inflow Artery 132.00 cm/s Rt Anastomosis Depth 0.50 cm Rt Vein Dist Forearm PSV 266.00 cm/s Rt Outflow Distal Forearm Diameter 0.70 cm Rt Vein Mid Forearm PSV 308.00cm/s Rt Outflow Mid Forearm Diameter 0.30 cm Rt Vein Prox Forearm PSV 263.00cm/s Rt Outflow Mid Forearm Depth 0.70 cm Rt Arterial Anastomosis 437.00 cm/s Rt Outflow Proximal Forearm Diameter 0.40 cm Rt Axillary Vein PSV 36.80cm/s Rt Outflow Proximal Forearm Depth 1.00 cm Rt Subclavian Vein 34.70 cm/s Rt Outflow Distal Arm Diameter 0.58 cm Rt Outflow Distal Arm Depth 0.18 cm Rt Outflow Mid Arm Diameter 0.68 cm Rt Outflow Mid Arm Depth 0.25 cm Rt Outflow Proximal Arm Diameter 0.50 cm Rt Outflow Proximal Arm Depth 0.73 cm Rt Inflow Artery Diameter 0.68 cm Diameter/Depth Value Units Velocities Value Units FINDINGS: Performing Special Education Teacher: Janeth Gutierrez RVT. [place] Arterial Inflow Normal: No evidence of arterial stenosis in theinflow vessel. Anastomosis: The fistula anastomosis is patent. Venous Outflow: No evidence of stenosis noted in the venous outflowvessel. Volume Flow: Three volume flow measurements are performed at the outflowvein (graft); an averaged volume flow is 625 cc/min. Inflow artery volume flow is also obtained, measuring 1254 cc/min. CONCLUSIONS: 1. Patent hemodialysis fistula with no evidence of significantnarrowing. 2. Three volume flow measurements are performed at the outflow vein(graft); an averaged volume flow is 625 cc/min. Inflow artery volume flow is also obtained, measuring 1254 cc/min. HISTORY: End-stage renal disease. PREVIOUS STUDIES: Previous study on 05/10/24, patent AV fistula. DISCLAIMER: The study images and the final report will be retained in the patientchart by the Vascular Laboratory for the legally required time period. This chartconstitutes the legal record of any testing performed. ATTESTATION: I have reviewed and interpreted the pertinent images and measurements ofthis study. I attest to the conclusions in the final report that is provided above. Electronically Signed By: John Rapp MD [facility] 12/20/2024 7:17:01 PM CDT Pam Desai MD [facility] PROCEDURES Final Result from Last 3 Months Insurance IDPA MEDICARE IDFL MEDICARE Care Teams Roll Forming Machine Operator Relationship Specialty Start Date End Date Tawanda Kelley MD [address] [place] [address] PCP - General Internal Medicine 03/01/24 Sotero Verma MD [address] [facility] [address] [place] [address] Referring Physician Nephrology 05/10/24 Aleshia Sánchez, RN [address] [place] [address] Computer Engineering Technician 05/17/24
--- OUTSIDE RECORDS SUMMARY | 2025-01-10 08:37 | XMS_ITS | Referral Summary ---
Author Organization [facility] Address [address] [place] [address] Care Team Providers Care Spiral Runner Name Role Phone Tawanda Kelley MD Primary Care Provider Sotero Verma MD Unavailable [phone] Aleshia Sánchez RN Unavailable [phone] Encounters Date Type Department Care Team Description 01/10/2025 Telephone [facility] Surgery [address] [facility] Floor 1 [place] [address] Pam Desai MD 01/08/2025 11:30 AM CDT Office Visit [facility] [address] [facility] 8th [place] [address] [place] [address] Pam Desai MD AVF (arteriovenous fistula) (Primary Dx) 12/20/2024 3:15 PM CDT Ancillary Procedure [facility] Vascular Lab at the [facility] [address] [place] [address] 8th [place] [address] [place] [address] End stage renal disease (HCC) 12/20/2024 Telephone [facility] Surgery [address] [facility] Floor 1 [place] [address] Pam Desai MD 12/03/2024 Orders Only [facility] Vascular Surgery [address] [place] [address] Office Building 3 [address] [place] [address] Pam Desai MD End stage renal disease (HCC) (Primary Dx) 11/28/2024 Telephone [facility] V[facility] Surgery [address] [place] [address] Office Building [address] [place] [address] Pam Desai MD from Last 3 Months Allergies No known active allergies Medications tamsulosin (FLOMAX) 0.4 mg extended release capsuleIndications:b enign prostatic hyperplasia with lower urinary tract sx Take 1 capsule (0.4 mg total) by mouth otr truck driver before breakfast 05/30/20 23 Active sevelamer (RENAGEL) [...] on file 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 Gender Identity Not on file Sexual Orientation [...] 01/08/2025 11:51 AM CDT Plan of Treatment Not on file Procedures Procedure Name Priority Date/Time Associated Diagnosis Comments US HEMODIALYSIS ACCESS Schedule Routine, Read Routine (OP Routine) 12/20/2024 4:16 PM CDT End stage renal disease (HCC) from Last 3 Months Results * US Hemodialysis Access (12/20/2024 4:16 PM CDT) Anatomical Region Laterality Modality Vascular N/A Ultrasound 12/20/2024 3:24 PM CDT Narrative 12/20/2024 7:37 PM CDT [facility] - Department of Vascular Surgery, Vascular Laboratory [address] [place] [address] Dialysis Access Fistula/Graft Duplex Report Patient Name: AIDA WHITTAKER : 1960 (64y 6m) Gender: M Study Date: 12/20/2024 03:24:17 PM Lug Breaker And Wire Puller: Location: [facility] Order Provider: WANKEN, PAM Quality: Adequate Ref Provider: PAM DESAI PROCEDURES: [...] Value Units Velocities Value Units FINDINGS: Performing Lug Breaker And Wire Puller: Janeth Gutierrez RVT. Andreafski Arterial Inflow Normal: No evidence of arterial [...] Procedure Note John Rapp MD - 12/20/2024 [facility] - Department of Vascular Surgery,Vascular Laboratory [address] [place] [address] Dialysis Access Fistula/Graft Duplex Report Patient Name: AIDA WHITTAKER : 1960 (64y 6m) Gender: M Study Date: 12/20/2024 03:24:17 PM Lug Breaker And Wire Puller: Location: [facility] Order Provider: PAM DESAI Quality: Adequate Ref [...] Value Units Velocities Value Units FINDINGS: Performing Lug Breaker And Wire Puller: Janeth Gutierrez RVT. Andreafski Arterial Inflow Normal: No evidence of arterial [...] above. Electronically Signed By: John Rapp MD [facility] 12/20/2024 7:17:01 PM CDT us Pam Desai MD [facility] PROCEDURES Final Result from Last [address] [place] [address] [employer] MEDICARE [facility] Address: [address] [address] [place] [address] [place] [address] [employer] MEDICARE [facility] Address: [address] [address] [place] [address] Care Teams Spiral Runner Relationship Specialty Start Date End Date Tawanda Kelley MD [address] [place] [address] PCP - General Internal Medicine 03/01/24 Sotero Verma MD [address] [facility] [address] [place] [address] Referring Physician Nephrology 05/10/24 Aleshia Sánchez, RN [address] [place] [address] Employee Relations Advisor 05/17/24
--- OUTSIDE RECORDS SUMMARY | 2025-01-10 08:37 | XMS_ITS | Clinical Summary ---
Author Organization [facility] Address [address] [place] [address] Phone Care Team Providers Care Information Assurance Officer Name Role Phone Provider, Unknown Primary Care Provider Unavaila Rosas Baltazar MD Unavailable [phone] Allergies No known active allergies Medications furosemide (LASIX) 40 MG Tablet Take 60 mg by mouth daily. 3 Active finasteride (PROSCAR) 5 MG Tablet Take 5 mg by mouth daily. 3 Active ergocalciferol (VITAMIN D) 90956 UNIT Capsule Take 1.25 mg by mouth [...] 97 01/10/2024 9:16 AM CDT Temperature 36.6 C (97.8 F) 01/10/2024 9:16 AM CDT Respiratory Rate 19 01/10/2024 9:16 AM CDT [...] age to complete this topic Insurance MEDICAID [facility] Care Teams Information Assurance Officer Relationship Specialty Start Date End Date Provider, Unknown UNKNOWN PCP - General 06/17/23 Rosas Live MD [address] [address] Consulting Physician Urology 06/17/23
--- OUTSIDE RECORDS SUMMARY | 2025-01-10 08:37 | XMS_ITS ---
Author Organization [facility] Address [address] [place] [address] Care Team Providers Care Electrical Prospecting Operator Name Role Phone None, Physician Primary Care Provider Unavailabl e Active Problems Problem Noted Date Diagnosed Date Malignant neoplasm of upper lobe of right lung 1 Basal cell carcinoma (BCC) of left nasal sidewal l 05/22/2024 Current Treatment and Therapy Plans No current plan information found. Past Treatment and Therapy Plans No past plan information found. Lifetime Dose Tracking * Chemical Lifetime Dose Automatic Entry Manual Entr y Dose Length Product 1,161.6 mGy-cm 1,161.6 mGy-cm 0 mG y-cm
--- OUTSIDE RECORDS SUMMARY | 2025-01-10 08:37 | XMS_ITS | Encounter Summary ---
Author Organization [facility] Address [address] [place] [address] Phone Care Team Providers Care Precast Worker Name Role Phone Tawanda Kelley MD Primary Care Provider [phone] Sotero Verma MD Unavailable [phone] Aleshia Sánchez RN Unavailable [phone] Encounter Details Date Type Department Care Team (Late st Contact Info) Description 01/10/2025 Telephone [facility] Surgery [address] [facility] Floor 1 [place] [address] Brendan Bui MD [address] [facility] [place] [place] [address] [place], [place] [address] Social History Tobacco Use Types Packs/Day Years [...] on file 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 Steph pereira reached at [phone]. documented in this encounter Plan of Treatment Not on file documented as of this encounter Visit Diagnoses Not on filedocumented in this encounter Care Teams Precast Worker Relationship Specialty Start Date End Date Tawanda Kelley MD [address] [place] [address] PCP - General Internal Medicine 03/01/24 Sotero Verma MD [address] [facility] [address] [place] [address] Referring Physician Nephrology 05/10/24 Aleshia Sánchez, RN [address] [place] [address] Embedded Engineer 05/17/24 documented as of this encounter
--- OUTSIDE RECORDS SUMMARY | 2025-01-10 08:37 | XMS_ITS | Clinical Summary ---
Author Organization [facility] Address [address] [address] Care Team Providers Care Automotive Professional Name Role Phone None, Physician Primary Care Provider Unavailabl e Source Comments [facility],non-owned Affiliates and Associated Physician Practices is amultiple site organization consisting of ambulatory clinics and hospital sitesin [place], [place] and [place]. This disclosure is being madepursuant to the Care Everywhere program and may not contain all information available regarding this patient. Last updated 18.[employer] [facility] Allergies No known active allergies Medications * Be aware that medications may not be up to date on this document. Alwaysverify current medications with the patient. diphenhydrAMINE (Benadryl) 25 mg/50 mL infusion Take 25 (twenty five) mg by mouth every 6 hours as needed Active finasteride (Proscar) 5 MG tablet Take 1 (one) tablet by mouth once daily 3 Active sevelamer (Renagel) 800 MG tablet Take 2 (two) tablets by mouth 3 times daily with meals 4 Active tamsulosin (Flomax) 0.4 MG capsule Take 1 (one) capsule by mouth once daily 3 Active polyethylene glycol 3350 (Miralax) 17 g packet Take by mouth once daily Active alum and mag hydroxide-simet h (Maalox Max) 400-400-40 MG/5ML suspension Take 5 mL by mouth every 6 hours as needed for Heartburn Active oxyCODONE, immediate release, (Roxicodone) 5 MG tabletIndicatio ns:Malignant neoplasm of upper lobe of right lung (HCC) Take 1 (one) tablet by mouth every 4 hours as needed 12 tablet 4 Active white petroleum (Vaseline) ointment Apply to affected area 3 times daily 106 g 4 Active Active Problems Problem Noted Date Diagnosed Date Malignant neoplasm of upper lobe of right lung 1 Basal cell carcinoma (BCC) of left nasal sidewal l 05/22/2024 Encounters Date Type Department Care Team Description 10/16/2024 1:30 PM LURE MAKER Office Visit [facility] [place] [address] Ritesh Mensah MD Basal cell carcinoma of nose (Primary Dx) 10/16/2024 Travel from Last 3 Months Social History Tobacco [...] and heating? Not hard at all 05/23/2024 [facility] of Occupat ional Health - Occupational Stress [...] at Not on file Legal Sex Male 1:16 PM CDT Gender Identity Not on file Sexual Orientation Not on file Last Filed Vital Signs Vital Sign Reading Time Taken Comments Blood Pressure 136/79 10/16/2024 1:35 PM LURE MAKER Pulse 80 10/16/2024 1:35 PM LURE MAKER Temperature 37.2 C (98.9 F) 07/21/2024 8:16 AM CDT Respiratory Rate 18 07/21/2024 8:16 AM CDT Oxygen Saturation 92% 10/16/2024 1:35 PM LURE MAKER Inhaled Oxygen Concentration 40% 05/18/2024 3 :45 PM CDT Weight 94 kg (207 lb 3.2 oz) 10/16/2024 1:35 PM LURE MAKER Height 172.7 cm (5' 8 ) 10/16/2024 1:35 PM LURE MAKER Body Mass Index 31.5 10/16/2024 1:35 PM LURE MAKER Plan of Treatment Health Maintenance Due Date Last Done Comments COLOGUARD (AGES 45-75) - COLON CA SCREENING 1960 COLON MONITORING 1959 COLONOSCOPY - COLON CA SCREENING 1959 CT COLONOGRAPHY - COLON CA SCREENING 1959 Colorectal Cancer Screening 1959 FIT - COLON CA SCREENING 1959 FLEX SIG - COLON CA SCREENING 1959 LIPID TESTING 1959 HIV SCREENING 1974 HEPATITIS C SCREENING 05/21/1977 DTAP/TDAP/TD VACCINES (1 - Tdap) 1978 PNEUMOCOCCAL VACCINE 50+ (1 of 2 - PCV) 1978 HEPATITIS B VACCINE (1 of 3 - Risk Dialysis 4-dose series) 1979 LUNG CANCER SCREENING 2009 ZOSTER VACCINE (1 of 2) 2009 Respiratory Syncytial Virus (RSV) Vaccine Pt: or over 60 yrs (1 - Risk 60-74 years 1-dose series) 2019 COVID-19 VACCINE ( - season) 2024 AAA SCREENING 2024 DEPRESSION SCREENING 09/19/2024 INFLUENZA VACCINE (Season Ended) 2025 SCREENING FOR DIABETES 07/21/2027 , 07/20/2024, 07/19/2024, Additional history exists HIB VACCINE Aged Out No longer eligi ble based on patient's age to complete this topic HPV VACCINE Aged Out No longer eligi ble based on patient's age to complete this topic MENINGOCOCCAL (Group B) VACCINE SHARED DECISION-MAKING Aged Out No longer eligible based on patient's age to complete this topic MENINGOCOCCAL GROUPS A/C/Y/W VACCINE Aged Out No longer eligible based on patient's age to complete this topic Procedures Procedure Name Priority Date/Time Associated Diagnosis Comments BASIC METABOLIC PANEL (CALCIUM TOTAL) Timed 07/21/2024 2:02 AM CDT Lung nodule from Last 3 Months or Most Recently Relevant to Health Maintenance Results * (ABNORMAL) BASIC METABOLIC PANEL (CALCIUM TOTAL) (07/21/2024 2:02 AM CDT) BUN 58(H) 7 - 26 mg/dL 07/21/2024 2:49 AM [facility] Creatinine 10.50(H) 0.71 - 1.16 mg/dL 07/21/2024 2:49 AM [facility] Sodium 139 136 - 145 mmol/L 07/21/2024 2:49 AM [facility] Potassium 4.3 3.5 - 4.5 mmol/L 07/21/2024 2:49 AM [facility] Chloride 101 98 - 107 mmol/L 07/21/2024 2:49 AM T [facility] CO2 24 22 - 29 mmol/L 07/21/2024 2:49 AM [facility] Glucose 163(H) 70 - 99 mg/dL 07/21/2024 2:49 AM [facility] Calcium 8.6 8.4 - 10.2 mg/dL 07/21/2024 2:49 AM [facility] Anion Gap 14 6 - 16 07/21/2024 2:49 AM [facility] BUN/Creatinine Ratio 6(L) 7 - 23 07/21/2024 2:49 AM [facility] Osmolality Calculated 308(H) 275 - 295 mOsm/kg 07/21/2024 2:49 AM [facility] eGFR by CKD-EPI 5(L) >=90 mL/min/1.7 3 m2 07/21/2024 2:49 AM [facility] Blood BLOOD SPECIMEN / Unknown Lab Venipuncture / Unknown 07/21/2024 2:02 AM CDT 07/21/2024 2:23 AM T Augustine Jimenez MD LAB - CHEMISTRY ORDER ELSIE Final Result [facility] [address] [place] [address], [facility] [phone] from Last 3 Months or Most Recently Relevant to Health Maintenance Insurance [facility] Advance Directives * Full Code (Latest Code Status on File) Date Activated Date Inactivated Comments 07/17/2024 4:36 PM 07/21/2024 12:15 PM * Full Code Date Activated Date Inactivated Comments 07/17/2024 4:22 PM 07/17/2024 4:36 PM * Full Code Date Activated Date Inactivated Comments 05/22/2024 10:48 PM 05/24/2024 10:14 AM Care Teams Automotive Professional Relationship Specialty Start Date End Date None, Physician [address] [place] [address] PCP - General 04/10/24
--- OUTSIDE RECORDS SUMMARY | 2025-01-10 08:37 | XMS_ITS | Encounter Summary ---
Author Organization [facility] Address [address] [place] [address] Phone Care Team Providers Care Laborer Starch Factory Name Role Phone Provider, Unknown Primary Care Provider Unavaila ble Rosas Live MD Unavailable [phone] Encounter Details Date Type Department Care Team (Late st Contact Info) Description 01/14/2024 Telephone [facility] [address] [place] [address] Rosas Live MD [address]2 [facility], [address] [address] Social History Tobacco Use Types Packs/Day Years [...] 03/27/2024, That was as soon as the [facility] could bring him. * Telephone Encounter - Irma Arzola - 02/20/2024 2:12 PM CDT Did this provider ever reach out to you? * Telephone Encounter - Irma Arzola - 02/10/2024 1:47 PM CDT Left message for provider to call you * Telephone Encounter - Irma Arzola - 02/06/2024 9:18 AM CDT Pt Technical Support Specialist is Dr. Verma at [facility] in [place]. Office number is [phone] Per staff the provider is in office [...] Can you please help get the patient's automobile drivers name so I can discuss nephrostomy tube management with him. documented in this encounter Plan of Treatment Not on file documented as of this encounter Visit Diagnoses Not on filedocumented in this encounter Care Teams Laborer Starch Factory Relationship Specialty Start Date End Date Provider, Unknown UNKNOWN PCP - General 06/17/23 Rosas Live MD #[address] [address] Consulting Physician Urology 06/17/23 documented as of this encounter
== END 2025-01-10 08:23 | disposition home or self-care (01) ==
LOC: ANHIMG 08:24
PROVIDERS: Visit Provider Internal Medicine Nephrology
DX: R33.9 Retention of urine, unspecified (principal); N13.30 Unspecified hydronephrosis
CPT/HCPCS: 50389; C1769

== ENCOUNTER 2025-06-08 08:05 | Emergency (ER) | payer MEDICARE, MEDICAID, SELFPAY ==
--- OUTSIDE RECORDS SUMMARY | 2025-06-08 08:08 | XMS_ITS | Clinical Summary ---
Author Organization [facility] Address [address] [place] [address] Phone Care Team Providers Care Oil Lease Operator Name Role Phone Provider, Unknown Primary Care Provider Unavaila Rosas Baltazar MD Unavailable [phone] Allergies No known active allergies Medications furosemide (LASIX) 40 MG Tablet Take 60 mg by mouth daily. 3 Active finasteride (PROSCAR) 5 MG Tablet Take 5 mg by mouth daily. 3 Active ergocalciferol (VITAMIN D) 76290 UNIT Capsule Take 1.25 mg by mouth [...] 9:16 AM CDT Height 172.7 cm (5' 8) 01/10/2024 9:16 AM CDT Body Mass Index 33.75 01/10/2024 9:16 AM CDT Plan of Treatment Health Maintenance Due Date Last Done Comments Hepatitis C Virus (HCV) Screening 1960 TdaP Immunization 1960 Pneumococcal Immunization (5 0+ years) (1 of 2 - PCV) 1978 Cologuard 2004 Colonoscopy 2004 Colorectal Cancer Screening 2004 Immunochemical Fecal Occult Blood 2004 Zoster Immunization (1 of 2) 2009 PSA Discussion 2014 Influenza Immunization (#1) 2025 SARS-COV-2 Immunization ( - season) 2025 Respiratory Syncytial Virus (RSV) Immunization (Adult) (1 - 1-dose 75+ series) 2034 Hepatitis B Immunization Aged Out No longer eligible based on patient's age to complete this topic Human Papillomavirus (HPV) Immunization Aged Out No longer eligible b ased on patient's age to complete this topic Meningococcal Immunization (ACWY) Aged Out No longer eligible based on patient's age to complete this topic Rotavirus Immunization Aged Out No lo nger eligible based on patient's age to complete this topic Insurance MEDICAID [facility] Care Teams Oil Lease Operator Relationship Specialty Start Date End Date Provider, Unknown UNKNOWN PCP - General 06/17/23 Rosas Live MD #[address] [address] Consulting Physician Urology 06/17/23
--- OUTSIDE RECORDS SUMMARY | 2025-06-08 08:08 | XMS_ITS | Clinical Summary ---
Author Organization [facility] Address [address] [place] [address] Care Team Providers Care Cash Poster Name Role Phone None, Physician Primary Care Provider Unavailabl e Source Comments [facility],non-owned Affiliates and Associated Physician Practices is amultiple site organization consisting of ambulatory clinics and hospital sitesin [place], [place], [place]. This disclosure is being madepursuant to the Care Everywhere program and may not contain all information available regarding this patient. Last updated 18.[employer] [facility] Allergies No known active allergies Medications * [...] and heating? Not hard at all 05/23/2024 [facility] of Occupat ional Health - Occupational Stress [...] place to sleep or slept in a [place] health care facility (including now)? No 05/23/2024 Sex and Gender Information Value Date Recorded Sex Assigned at Not on file Legal Sex Male 1:16 PM CDT Gender Identity Not on file Sexual Orientation Not on file Last Filed Vital Signs Vital Sign Reading Time Taken Comments Blood Pressure 136/79 10/16/2024 1:35 PM FURNACE PROCESS SUPERVISOR Pulse 80 10/16/2024 1:35 PM FURNACE PROCESS SUPERVISOR Temperature 37.2 C (98.9 F) 07/21/2024 8:16 AM CDT Respiratory Rate 18 07/21/2024 8:16 AM CDT Oxygen Saturation 92% 10/16/2024 1:35 PM FURNACE PROCESS SUPERVISOR Inhaled Oxygen Concentration 40% 05/18/2024 3 :45 PM CDT Weight 94 kg (207 lb 3.2 oz) 10/16/2024 1:35 PM FURNACE PROCESS SUPERVISOR Height 172.7 cm (5' 8) 10/16/2024 1:35 PM FURNACE PROCESS SUPERVISOR Body Mass Index 31.5 10/16/2024 1:35 PM FURNACE PROCESS SUPERVISOR Plan of Treatment Health Maintenance Due Date Last Done Comments COLOGUARD (AGES 45-75) - COLON CA SCREENING 1959 COLON MONITORING 1959 COLONOSCOPY - COLON CA SCREENING 1959 CT COLONOGRAPHY - COLON CA SCREENING 1959 Colorectal Cancer Screening 1959 FIT - COLON CA SCREENING 1959 FLEX SIG - COLON CA SCREENING 1959 LIPID TESTING 1959 HEPATITIS C SCREENING 05/21/1977 DTAP/TDAP/TD VACCINES (1 - Tdap) 1978 PNEUMOCOCCAL VACCINE 50+ (1 of 2 - PCV) 1978 HEPATITIS B VACCINE (1 of 3 - Risk Dialysis 4-dose series) 1979 LUNG CANCER SCREENING 2009 ZOSTER VACCINE (1 of 2) 2009 Respiratory Syncytial Virus (RSV) Vaccine Pt: or over 60 yrs (1 - Risk 60-74 years 1-dose series) 2019 AAA SCREENING 2024 DEPRESSION SCREENING 09/19/2024 COVID-19 VACCINE (1 - 2023- season) 2025 INFLUENZA VACCINE (#1) 2025 SCREENING FOR DIABETES 07/21/2027 , 07/20/2024, [...] 7 - 26 mg/dL 07/21/2024 2:49 AM [facility] Creatinine 10.50(H) 0.71 - 1.16 mg/dL 07/21/2024 2:49 AM [facility] Sodium 139 136 - 145 mmol/L 07/21/2024 2:49 AM [facility] Potassium 4.3 3.5 - 4.5 mmol/L 07/21/2024 2:49 AM [facility] Chloride 101 98 - 107 mmol/L 07/21/2024 2:49 AM [facility] CO2 24 22 - 29 mmol/L 07/21/2024 2:49 AM [facility] Glucose 163(H) 70 - 99 mg/dL 07/21/2024 2:49 AM [facility] Calcium 8.6 8.4 - 10.2 mg/dL 07/21/2024 2:49 AM CDT [facility] Anion Gap 14 6 - 16 07/21/2024 2:49 AM T [facility] BUN/Creatinine Ratio 6(L) 7 - 23 07/21/2024 2:49 AM T [facility] Osmolality Calculated 308(H) 275 - 295 mOsm/kg 07/21/2024 2:49 AM T [facility] eGFR by CKD-EPI 5(L) >=90 mL/min/1.7 3 m2 07/21/2024 2:49 AM T [facility] Blood BLOOD SPECIMEN / Unknown Lab Venipuncture / Unknown 07/21/2024 2:02 AM CDT 07/21/2024 2:23 AM CDT Augustine Jimenez MD LAB - CHEMISTRY ORDER ELSIE Final Result [facility] [address] [place] [address], [facility] [phone] from Last 3 Months or Most Recently Relevant to Health Maintenance Insurance Advance Directives * Full Code (Latest Code Status on File) Date Activated Date Inactivated Comments 07/17/2024 4:36 PM 07/21/2024 12:15 PM * Full Code Date Activated Date Inactivated Comments 07/17/2024 4:22 PM 07/17/2024 4:36 PM * Full Code Date Activated Date Inactivated Comments 05/22/2024 10:48 PM 05/24/2024 10:14 AM Care Teams Cash Poster Relationship Specialty Start Date End Date None, Physician [address] [place] [address] PCP - General 04/10/24
--- OUTSIDE RECORDS SUMMARY | 2025-06-08 08:08 | XMS_ITS | Encounter Summary ---
Author Organization [facility] Address [address] [place] [address] Phone Care Team Providers Care Edge Cutting Machine Operator Name Role Phone Provider, Unknown Primary Care Provider Unavaila ble Rosas Live MD Unavailable [phone] Encounter Details Date Type Department Care Team (Late st Contact Info) Description 01/14/2024 Telephone [facility] [address] [place] [address] Rosas Live MD #2 [facility], [address] [address] Social History Tobacco Use Types Packs/Day Years [...] 03/27/2024, That was as soon as the skilled nursing could bring him. * Telephone Encounter - Irma Arzola - 02/20/2024 2:12 PM CDT Did this provider ever reach out to you? * Telephone Encounter - Irma Arzola - 02/10/2024 1:47 PM CDT Left message for provider to call you * Telephone Encounter - Irma Arzola - 02/06/2024 9:18 AM CDT Pt Home Restoration Service Cleaner is Dr. Verma at [facility] in [place]. Office number is [phone] Per staff the provider is in office [...] Can you please help get the patient's dual rate dealer name so I can discuss nephrostomy tube management with him. documented in this encounter Plan of Treatment Not on file documented as of this encounter Visit Diagnoses Not on filedocumented in this encounter Care Teams Edge Cutting Machine Operator Relationship Specialty Start Date End Date Provider, Unknown UNKNOWN PCP - General 06/17/23 Rosas Live MD #[address] [address] Consulting Physician Urology 06/17/23 documented as of this encounter
--- OUTSIDE RECORDS SUMMARY | 2025-06-08 08:08 | XMS_ITS ---
Author Organization [facility] Address [address] [place] [address] Care Team Providers Care Portfolio Mgr Name Role Phone None, Physician Primary Care [...]
[2025-06-08 08:26] VITALS: BP 137/76; PULSE 110; RESP 16; TEMP 36.3; O2SAT 97
--- NOTE | 2025-06-08 08:35 | ED.GENADULT ---
HPI - General Adult General Chief complaint: Unspecified Stated complaint: needs dialysis Time Seen by Provider: 06/08/25 08:11 History of Present Illness HPI narrative: 65-year-old male presents to the emergency department for evaluation for multiple complaints including hematuria and seeking outpatient labs to do dialysis. [place] a location to do his dialysis. Patient has not had dialysis in approximately 2 weeks. Patient returned to [facility] in order to have dialysis and they stated they would not do his dialysis without outpatient labs. Patient states he has had some blood in his urine since yesterday. Patient denies any difficulty urinating denies any pain with urination. Related Data Home Medications ?Medication ?Instructions ?Recorded ?Confirmed ?Last Taken ?Type acetaminophen 500 mg tablet 500 mg PO QID PRN Pain 07/30/23 12/09/23 Unknown History nicotine 21 mg/24 hr daily 1 patch topical DAILY 12/09/23 12/09/23 Unknown History transdermal patch Allergies Allergy/AdvReac Type Severity Reaction Status Date / Time No Known Allergies Allergy Verified 09/17/24 04:35 Review of Systems Review of Systems: All systems reviewed & are unremarkable except as noted in HPI and below PMFSH Past Medical History Medical History Chronic kidney disease Bipolar disorder Tobacco dependence Benign prostate hyperplasia COPD with emphysema Skin cancer Surgical History Surgical History History of tonsillectomy Status post surgical removal of malignant neoplasm of skin From his face and now has a growth on his nose. Family History Family History Other Family history non-contributory Social History Social History Social History: Surrogate medical decision maker: Ari Giron, daughter. Code status: Full code. Smoking packs per day: 1 Smoking cigarettes per day: 20.0 Years smoked: 49 Smoking pack-years: 49.00 Smoking status: Current every day smoker Tobacco type: cigarettes Second hand tobacco smoke exposure: Yes Alcohol intake: former Substance use: never Substance use type: does not use Do You Feel Safe in your Home?: Yes Lack of Transportation: No Lack of Food: Sometimes True Current Housing: I Have Housing Concerned About Future Housing: No Difficulty Paying Gas/Electric Bills: No Difficulty Paying for Meds: No Currently Unemployed: No Education: High School Diploma/GED Difficulty w/ Childcare or Family Care: No Additional living arrangements comments: Lives in [place]. Additional occupation/education comments: Works at a local [employer]. Spiritual care concerns: No Exam Narrative: APPEARANCE: Well appearing, no pain, no distress, well-nourished. HEAD: normocephalic, atraumatic. EYES: PERRLA/EOMI, conjunctivae clear. NOSE: Normal no drainage EARS:TMS clear with good light reflex. THROAT: Pharynx clear, no exudate. NECK: Supple. No adenopathy, no masses. RESPIRATORY: Airway patent, respirations nonlabored. Clear to auscultation bilaterally, no rales, rhonchi, wheezing. CARDIOVASCULAR: Regular rate and rhythm without murmurs rubs or gallops. ABDOMINAL: Soft, nontender, nondistended, normal bowel sounds MUSCULOSKELETAL: Moves all extremities. Strength/ROM intact, No edema, No calf tenderness. NEURO: Alert. Cranial nerves II through XII intact. Good gait. Good coordination SKIN: Warm, dry. Normal Color Course Vital Signs Vital signs: Vital Signs Temperature 97.4 F L 06/08/25 08:26 Pulse Rate 110 H 06/08/25 08:26 Respiratory Rate 16 06/08/25 08:26 Blood Pressure 137/76 06/08/25 08:26 Pulse Oximetry 97 06/08/25 08:26 Oxygen Delivery Room Air 06/08/25 08:26 Temperature 97.4 F L 06/08/25 08:26 Pulse Rate 109 H 06/08/25 10:59 Respiratory Rate 18 06/08/25 10:59 Blood Pressure 129/82 06/08/25 10:59 Pulse Oximetry 99 06/08/25 10:59 Oxygen Delivery Room Air 06/08/25 08:26 Medical Decision Making [facility] Narrative Medical decision making narrative: 65-year-old male presents to the emergency department for evaluation for hematuria and basic labs since he has been missing dialysis. Patient is currently afebrile but does have a leukocytosis of 12.4 hemoglobin of 10.4. Patient has a sodium 133, potassium 4.8, BUN of 140 and creatinine of greater than 14. Urine was concerning for urinary tract infection was high a white blood cells high red blood cells and +3 bacteria. Patient was started on antibiotics, 1 g of IV Rocephin. I did recommend admission to the patient and patient states he prefers to be discharged to home. Patient was advised that he does need dialysis and he does need antibiotics for his urinary tract infection and further evaluation of his hematuria. Patient states he prefers to be discharged home and he is aware of the risk. Patient will be discharged home on Keflex and patient was encouraged of close follow-up with Nephrology. Differential Diagnosis Differential Diagnosis: Ureteral calculi, hematuria, urinary tract infection, hyperkalemia, hyper uremia, dialysis noncompliance Vital Signs Vital Signs: Vital Signs Temperature 97.4 F L 06/08/25 08:26 Pulse Rate 110 H 06/08/25 08:26 Respiratory Rate 16 06/08/25 08:26 Blood Pressure 137/76 06/08/25 08:26 Pulse Oximetry 97 06/08/25 08:26 Oxygen Delivery Room Air 06/08/25 08:26 Temperature 97.4 F L 06/08/25 08:26 Pulse Rate 109 H 06/08/25 10:59 Respiratory Rate 18 06/08/25 10:59 Blood Pressure 129/82 06/08/25 10:59 Pulse Oximetry 99 06/08/25 10:59 Oxygen Delivery Room Air 06/08/25 08:26 Lab Data Lab results reviewed: Yes I reviewed the patient's lab results. 06/08/25 08:52 06/08/25 08:52 Labs: Lab Results 06/08/25 06/08/25 Range/Units 08:45 08:52 WBC 12.4 H (4.5-10.0) K/mm3 RBC 3.46 L (4.6-6.20) M/mm3 Hgb 10.4 L (14.0-18.0) g/dL Hct 31.4 L (42.0-52.0) % MCV 90.8 (80-100) fl MCH 30.1 (26-34) pg MCHC 33.1 (32-36) g/dl RDW 13.0 (11.5-14.5) % Plt Count 286 (150-375) k/mm3 MPV 8.9 (7.4-10.4) fl Immature Gran % (Auto) 0.4 (0-0.5) % Neut % (Auto) 81.0 H (45.5-73.1) % Lymph % (Auto) 8.7 L (18.3-44.2) % [place] % (Auto) 8.7 H (2.6-8.5) % Eos % (Auto) 1.0 (0-4.4) % Baso % (Auto) 0.2 (0.2-1.2) % Lymph # (Auto) 1.07 (0.9-3.2) K/mm3 [place] # (Auto) 1.1 H (0.1-0.6) K/mm3 Eos # (Auto) 0.1 (0-0.3) K/mm3 Baso # (Auto) 0.0 (0.0-0.1) K/mm3 Abs Immat Gran (auto) 0.05 H (0.00-0.031) K/mm3 Absolute Neuts (auto) 10.0 H (1.3-6.7) K/mm3 Absolute Nucleated RBC 0.000 (0.0-0.012) K/mm3 Nucleated RBC % 0.0 (0.0-0.2) % PT 15.5 H (11.1-14.7) Seconds INR 1.2 APTT 33.2 (22.3-36.8) Seconds Sodium 133 L (137-145) mmol/L Potassium 4.8 (3.4-5.0) mmol/L Chloride 105 (98-107) mmol/L Carbon Dioxide 7 L (22-30) mmol/L Anion Gap 21 H (4-12) mmol/L BUN 140 H* D (9-20) mg/dL Creatinine > 14.00 H (0.7-1.3) mg/dL Estim Creat Clear Calc 5 ml/min Estimated GFR 4 L (59 - ) Glucose 124 H (65-110) mg/dL Calcium 9.2 (8.4-10.2) mg/dL Total Bilirubin 0.4 (0.2-1.3) mg/dL AST 14 L (17-59) U/L ALT 16 (6-50) U/L Alkaline Phosphatase 80 (38-126) U/L Total Protein 8.4 H (6.3-8.2) g/dL Albumin 4.4 (3.5-5.1) g/dL Urine Color Red H (Yellow) Urine Appearance Turbid H (Clear) Urine pH 5.0 (5.0-9.0) Ur Specific [place] 1.025 (1.001-1.035) Urine Protein TNP Urine Glucose (UA) TNP Urine Ketones TNP Ur Blood (Man) TNP Urine Nitrate TNP Urine Bilirubin TNP Urine Urobilinogen TNP Leukocyte Esterase Rfl TNP Urine RBC >100 H (0-2) /hpf Urine WBC >100 (0-3) /hpf Ur Squamous Epith Cells None seen (Few) /hpf Urine Bacteria 3+ H (None) /hpf Discharge Plan Discharge Clinical Impression: Dialysis patient, noncompliant, Hematuria, Urinary tract infection Patient Disposition: Home Condition: Stable Instructions: Antibiotic Form, Urinary Tract Infection in Men (ED), Hematuria (ED) Additional Instructions: You were offered admission for dialysis and treatment of your urinary tract infection. You declined and preferred to be discharged to home. Have close follow-up with Nephrology for dialysis. Have close follow-up with primary care physician for further evaluation of your urinary tract infection and hematuria Patient Language: Mongolian Prescriptions: New cephalexin 500 mg capsule 500 mg PO Q12H 7 Days Qty: 14 0RF No Action nicotine 21 mg/24 hr Patch 24 Hour 1 patch topical DAILY finasteride [Proscar] 5 mg Tablet 5 mg PO QAM Qty: 30 0RF acetaminophen 500 mg Tablet 500 mg PO QID PRN (Reason: Pain) polyethylene glycol 3350 [Miralax] 17 gram Powder In Packet 17 g PO QAM PRN (Reason: Constipation) Qty: 30 0RF tamsulosin 0.4 mg Capsule 0.4 mg PO QAM Qty: 30 0RF sulfamethoxazole-trimethoprim [Bactrim DS] 800-160 mg tablet 1 tablet PO Q12H Qty: 14 0RF Follow-up/Referrals: UNKNOWN,DOCTOR [Primary Care Provider]
[2025-06-08 09:00] LABS: Hematocrit 31.4 % (42.0-52.0); Hemoglobin 10.4 g/dL (14.0-18.0); Immature Granulocyte Percent A 0.4 % (0-0.5); Lymphocytes Absolute Auto 1.07 K/mm3 (0.9-3.2); Mean Corpuscular HGB Conc 33.1 g/dl (32-36); Mean Corpuscular Hemoglobin 30.1 pg (26-34); Mean Corpuscular Volume 90.8 fl (80-100); Nucleated Red Blood Cells Absolute Auto 0.000 K/mm3 (0.0-0.012); Nucleated Red Blood Cells Perc 0.0 % (0.0-0.2); Platelet Count Result 286 k/mm3 (150-375); Red Blood Count 3.46 M/mm3 (4.6-6.20); White Blood Count 12.4 K/mm3 (4.5-10.0)
[2025-06-08 09:14] LABS: INR 1.2; Partial Thromboplastin Time 33.2 Seconds (22.3-36.8); Prothrombin Time 15.5 Seconds (11.1-14.7)
[2025-06-08 09:36] LABS: Alanine Aminotransferase 16 U/L (6-50); Albumin Level 4.4 g/dL (3.5-5.1); Alkaline Phosphatase 80 U/L (38-126); Anion Gap 21 mmol/L (4-12); Aspartate Amino Transferase 14 U/L (17-59); Bilirubin,Total 0.4 mg/dL (0.2-1.3); Calcium 9.2 mg/dL (8.4-10.2); Carbon Dioxide 7 mmol/L (22-30); Chloride 105 mmol/L (98-107); Estimated CRCL calculation 5 ml/min; Estimated Glomerular Filt Rate 4; Glucose 124 mg/dL (65-110); Potassium 4.8 mmol/L (3.4-5.0); Sodium 133 mmol/L (137-145); Total Protein 8.4 g/dL (6.3-8.2)
[2025-06-08 09:38] LABS: Blood Urea Nitrogen 140 mg/dL (9-20)
[2025-06-08 09:42] LABS: Appearance Urine Turbid (Clear)
[2025-06-08 09:43] LABS: Add Urine Microscopic? YES; Specific Grav Ur 1.025 (1.001-1.035)
[2025-06-08] MEDS: cefTRIAXone 1 GM in SODIUM CHLORIDE 0.9% IV 50 ML 100 ML IVPB (10:30)
[2025-06-08 10:59] VITALS: BP 129/82; PULSE 109; RESP 18; O2SAT 99
== END 2025-06-08 11:01 | disposition home or self-care (01) ==
PROVIDERS: Emergency Provider Emergency Medicine
DX: N39.0 Urinary tract infection, site not specified (principal); R31.9 Hematuria, unspecified; Z91.158 Patient's noncompliance with renal dialysis for other reason; N18.6 End stage renal disease; Z99.2 Dependence on renal dialysis; J43.9 Emphysema, unspecified; N40.0 Benign prostatic hyperplasia without lower urinary tract symptoms; F17.210 Nicotine dependence, cigarettes, uncomplicated; Z85.828 Personal history of other malignant neoplasm of skin; Z79.899 Other long term (current) drug therapy
CPT/HCPCS: 36415; 80053; 81001; 85025; 85610; 85730; 96365; 99284; J0696

== ENCOUNTER 2025-08-15 11:57 | Inpatient (IN) | payer MEDICARE, MEDICAID, SELFPAY ==
[2025-08-15] VITALS (27 sets, daily range): BP systolic 114–164; BP diastolic 53–95; PULSE 89–119; RESP 14–23; TEMP 36.7–37.5; O2SAT 91–100; BMI 29.9
--- NOTE | ~2025-08-15 | XR_ITS ---
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 Cardiomediastinal silhouette normal size and configuration. Persistent diffuse interstitial markings. No acute bony abnormality. IMPRESSION: 1. Interstitial pulmonary edema, pneumonitis, or less likely chronic interstitial lung disease. Reviewed, dictated and finalized at location R. [employer] SPECIALIST IMPRESSION: 1. Interstitial pulmonary edema, pneumonitis, or less likely chronic interstit ial lung disease.
--- NOTE | 2025-08-15 12:05 | ECG_ITS ---
Test Date: 2025-08-15 12:06:01 Measurements Intervals [place] Rate: 98 P: 40 NE: 142 QRS: 19 QRSD: 77 T: 100 QT: 334 QTc: 427 Interpretive Statements SINUS RHYTHM NONSPECIFIC T-WAVE ABNORMALITY ABNORMAL ECG No previous ECG available for comparison Electronically Signed On 08-15-2025 12:31:47 EMERGENCY SPECIALIST by Ward Saucedo M.D.
--- OUTSIDE RECORDS SUMMARY | 2025-08-15 12:10 | XMS_ITS | Clinical Summary ---
Author Organization [facility] Address [address] [place] [address] Phone Care Team Providers Care Product Safety Technical Assistant Name Role Phone Provider, Unknown Primary Care Provider Unavaila Rosas Baltazar MD Unavailable [phone] Allergies No known active allergies Medications furosemide (LASIX) 40 MG Tablet Take 60 mg by mouth daily. 3 Active finasteride (PROSCAR) 5 MG Tablet Take 5 mg by mouth daily. 3 Active ergocalciferol (VITAMIN D) 69561 UNIT Capsule Take 1.25 mg by mouth [...] MEDICAID [facility] Care Teams Product Safety Technical Assistant Relationship Specialty Start Date End Date Provider, Unknown UNKNOWN PCP - General 06/17/23 Rosas Live MD #[address] [address] Consulting Physician Urology 06/17/23
--- OUTSIDE RECORDS SUMMARY | 2025-08-15 12:10 | XMS_ITS | Encounter Summary ---
Author Organization [facility] Address [address] [place] [address] Phone Care Team Providers Care Carbon Dioxide Operator Name Role Phone Provider, Unknown Primary Care Provider Unavaila Rosas Baltazar MD Unavailable [phone] Encounter Details Date Type Department Care Team (Late st Contact Info) Description 01/14/2024 Telephone [facility] [address] [address] Rosas Live MD #2 [facility], [address] [address] Social History Tobacco Use Types Packs/Day Years [...] 03/27/2024, That was as soon as the group home could bring him. * Telephone Encounter - Irma Arzola - 02/20/2024 2:12 PM CDT Did this provider ever reach out to you? * Telephone Encounter - Irma Arzola - 02/10/2024 1:47 PM CDT Left message for provider to call you * Telephone Encounter - Irma Arzola - 02/06/2024 9:18 AM CDT Pt Emergency Dispatcher is Dr. Verma at [facility] in [place]. Office number is [phone] Per staff the provider is in office [...] Can you please help get the patient's associate automation engineer name so I can discuss nephrostomy tube management with him. documented in this encounter Plan of Treatment Not on file documented as of this encounter Visit Diagnoses Not on filedocumented in this encounter Care Teams Carbon Dioxide Operator Relationship Specialty Start Date End Date Provider, Unknown UNKNOWN PCP - General 06/17/23 Rosas Live MD #[address] [address] Consulting Physician Urology 06/17/23 documented as of this encounter
--- OUTSIDE RECORDS SUMMARY | 2025-08-15 12:11 | XMS_ITS | Data Portability ---
Author Organization [facility], Main Office Address [address] [place] [address] Assessment No assessment recorded. Plan of Treatment Reminders Order Date Submit Date Provider Last Modified By Organization Details Last Modified Time Details Appointments None record ed. Lab None record ed. Referral None record ed. Procedures None record ed. Surgeries None record ed. Imaging None record ed. Medication Orders None record ed. Patient TargetsNo targets recorded. Patient InstructionsNo instructions recorded. Reason for Referral None Reported. Problems Name Problem SNOMED Code Status Onset Date Resolution Date Notes Provider Name and Address Organization Details Recorded Time Lower urinary tract symptoms due to benign prostatic hypertrophy 3944984477912 1 Active 2022 Son Campos MD [address], [address], [facility] 3 14:20:44 Benign prostatic hyperplasia with outflow obstruction 983509604 Active 2022 Son Campos MD [address] [address], [place], [address] [facility] 3 16:48:51 Problem Notes None recorded. Medical Equipment None Reported. Allergies No known drug allergies Vitals Date Recorded Body temperature Body mass index (BMI) Body weight Oxygen saturation Heart rate Systolic And Diastolic Provider Name and Address Organization Details Last Updated DateTime 3 98.7 [degF] 32.1 kg/m2 71012.9 9 g 98 % 97 /min 150/87 mm[Hg] Perlita Rodriguez MA [facility] 3 14:05:07 Date Recorded Body height Provider Name an d Address Organization Details Last Updated DateTime 04/04/2023 172.72 cm BRITTNEY Hardy [facility] 04/04/2023 14:04:42 Date Recorded Body height Heart rate Body temperature Body mass index (BMI) Body weight Oxygen saturation Systolic And Diastolic Provider Name and Address Organization Details Last Updated DateTime 3 172.72 cm 105 /min 98.4 [degF] 33.9 kg/m2 627072. 1 g 97 % 122/60 mm[Hg] Perlita Rodriguez MA [place] [facility] 3 16:20:39 Social History None recorded. Functional Status None recorded. Mental Status None recorded. Family History Nothing Reported. Medical History No medical history recorded. Past Encounters Encounter ID Performer Location Encounter Start Date Encounter Closed Date Diagnosis/Indication Diagnosis SNOMED-CT Code Diagnosis ICD10 Code Diagnosis IMO Codes Diagnosis Note [id number] Son Campos MD [facility] [address] [address] 04/04/2023 13:43:57 04/04/2023 14:22:41 Lower urinary tract symptoms due to benign prostatic hypertrophy 1686652344 9101 N40.1 Due to huge prostate , urine not clear enough for voiding trial. Discussed voiding trial and different forms of prostatect rosy . [id number] Son Campos MD [facility] Urology [address] [address] 04/12/2023 16:11:51 04/12/2023 16:44:35 Benign prostatic hyperplasia with outflow obstruction 837998813 N40.1 Very large prostate, he does not want to have voiding trial because he doesnt like cath placement and has had a lot of trouble. Discussed options, probably too large for TURP, will see if can have robotic simple prostatect rosy. Health Concerns Section Related Observation LastModified by Organization Detai ls LastModified Time None Recorded Concern Status LastModified by Organization Details LastModified Time None Recorded Advance Directives Directive None Recorded Payers Insurance Date Sequence Insurance Name Policy Number Policy Sawant Covered Member ID Sawant Member ID Guarantor Name 04/04/2023 1 [facility] (MEDICAID HMO) Andrey Giron [id number] Andrey Giron 05/09/2023 1 [place] [employer] Andrey Giron [id number] Andrey Giron Notes Date Note Type Note Provider Name and Address Organization Details Recorded Time 04/04/2023 text/html BPH (benign prostatic hyperplasia)Report ed by PatientPt presents for fu of renal failure due to retention, had inital cr of 13 , last was down to 2, CT showed bilat hydro and distended bladder. FU ultrasound showed mild hydro. Pt was back in last week with clot retention, had cysto clot evac and fulguration of middle lobe. Pt was discharged yesterday and states he finally had bm. He is on flomax and proscar. Prostate size was estimated at 160gm Son Campos MD [address], [place], [address], [facility] 04/04/2023 14:21:52 04/12/2023 text/html BPH (benign prostatic hyperplasia)Report ed by PatientPt presents for fu of renal failure due to retention, had inital cr of 13 , last was down to 2, CT showed bilat hydro and distended bladder. FU ultrasound showed mild hydro. Pt was back in last week with clot retention, had cysto clot evac and fulguration of middle lobe. Pt was discharged yesterday and states he finally had bm. He is on flomax and proscar. Prostate size was estimated at 160gm/Pt for follow up, urine has cleared. Wants surgery for his prostate Son Campos MD [address], [place], [address], [facility] 04/12/2023 16:50:15
--- OUTSIDE RECORDS SUMMARY | 2025-08-15 12:11 | XMS_ITS ---
Author Organization [facility] Address [address] [place] [address] Care Team Providers Care Spikemaking Supervisor Name Role Phone None, Physician Primary [...]
--- OUTSIDE RECORDS SUMMARY | 2025-08-15 12:11 | XMS_ITS | Clinical Summary ---
Author Organization [facility] Address [address] [place] [address] Care Team Providers Care District Court Reporter Name Role Phone Tawanda Kelley MD Primary Care Provider [phone] Sotero Verma MD Unavailable [phone] Brendan Bui MD Unavailable [phone] Allergies No known active allergies Medications tamsulosin (FLOMAX) 0.4 mg extended release capsuleIndications:b enign prostatic hyperplasia with lower urinary tract sx Take 1 capsule (0.4 mg total) by mouth director group sales before breakfast 05/30/20 23 Active sevelamer (RENAGEL) 800 mg tabletIndications:Re nal Osteodystrophy with Hyperphosphatemia Take 2 tablets (1,600 mg total) by mouth 3 (three) times a day with meals 03/12/20 24 Active polyethylene glycol (MIRALAX) 17 gram packetIndications:co nstipation Take 1 packet (17 g total) by mouth as needed for constipation Active oxyCODONE (ROXICODONE) 5 mg immediate release tabletIndications:Pa in Take 1 tablet (5 mg total) by mouth every 4 (four) hours as needed for pain 5 tablet 04/12/20 24 Active finasteride (PROSCAR) 5 mg tabletIndications:be nign prostatic hyperplasia with lower urinary tract sx Take 1 tablet (5 mg total) by mouth every morning 06/13/[address] (PROTONIX) 40 mg EC tabletIndications:Tr eatment of Non-Bleeding Gastric Disorder,gerd Take 1 tablet (40 mg total) by mouth 2 (two) times a day 12/20/19 25 Active loperamide (IMODIUM) 2 mg capsuleIndications:d iarrhea Take 1 capsule (2 mg total) by mouth 4 (four) times a day as needed for diarrhea Active ondansetron (ZOFRAN) 4 mg tablet Take 1 tablet (4 mg total) by mouth every 6 (six) hours as needed for nausea or vomiting Active acetaminophen (TYLENOL) 325 mg tabletIndications:Pa in Take 2 tablets (650 mg total) by mouth every 8 (eight) hours as needed for mild pain (pain scale 1-4) (pain) Active baclofen (LIORESAL) 5 mg tabletIndications:Mu scle Spasticity of Spinal Origin Take 1 tablet (5 mg total) by mouth 4 (four) times a day as needed for muscle spasms 03/05/20 25 Active Active Problems Problem Noted Date Diagnosed Date Mechanical complication of a rteriovenous fistula surgically created 03/12/2025 ESRD (end stage renal disease) 01/08/2025 ESRD (end stage renal disease) on dialysis 03/20 Immunizations Immunization Administration Dates Next Due Hep B Vaccine 04/11/2024,12/07/2023 PPD TEST 05/09/2024,12/05/2023 Td, Unspecified 05/30/2024,05/09/2024 Surgical History Surgery Date Site/Laterality Comments CYSTOSCOPY 07/15/2023 AV FISTULA PLACEMENT 04/12/2024 Right Right radial-cephalic AVF RECONSTRUCTION 05/23/2024 RECONSTRUCTION LEFT NASAL/CHEEK DEFECT, WOUND DEBRIDEMENT, SKIN GRAFT; FOREHEAD FLAP RHINOPLASTY 05/22/2024 Left Left partial rhinectomy BRONCHOSCOPY 05/18/2024 BRONCHOSCOPY WITH ROBOT ASSIST, BRONCHOALVEOLAR LAVAGE, TRANSBRONCHIAL BIOPSIES, AND BRUSHINGS LUNG LOBECTOMY 07/17/2024 Left Video-assisted thoracoscopic Left upper lobe Lingular sparing Segmentectomy PLASTIC SURGERY 07/20/2024 DIVISION AND INSET PARAMEDIAN FOREHEAD FLAP VASCULAR SURGERY PROCEDURE 01/24/2025 Right Procedure: Dialysis Circuit Angiogram; Surgeon: Brendan Bui MD; Location: [facility] RELATIONS MANAGER; Service: Vascular; Laterality: Right; Medical History Medical History Date Comments Chronic kidney disease Emphysema of lung History of hemodialysis MWF Family History Medical History Relation Name Comments Anesthesia problems Neg Hx Social History Tobacco Use Types Packs/Day Years Used Date Smoking Tobacco: Every Day Cigarettes Smokeless Tobacco: Never Tobacco Cessation:Ready to Q uit: Not Asked; Counseling Given: Not Answered AUDIT-C Answer Date Recorded Q1: How often do you have a drink containing alcohol? Never 03/21/2025 Q2: How many drinks containi ng alcohol do you have on a typical day when you are drinking? Patient does not drink Q3: How often do you have si x or more drinks on one occasion? Never 03/21/2025 Personal Safety Answer Date Recorded Have you ever been in or are you currently in a harmful physical or emotional relationship or is someone making you feel afraid or unsafe? 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 Gender Identity Not on file Sexual Orientation Not on file Last Filed Vital Signs Vital Sign Reading Time Taken Comments Blood Pressure 108/69 03/21/2025 9:00 AM CDT Pulse 72 03/21/2025 9:00 AM CDT Temperature 36.9 C (98.4 F) 03/21/2025 8:40 AM CDT Respiratory Rate 21 03/21/2025 9:00 AM CDT Oxygen Saturation 92% 03/21/2025 9:00 AM CDT Inhaled Oxygen Concentration - - Weight 88 kg (194 lb) 03/21/2025 6:32 AM CDT Height 172.7 cm (5' 8) 03/14/2025 10:45 AM CDT Body Mass Index 29.5 03/14/2025 10:45 AM CDT Plan of Treatment Health Maintenance Due Date Last Done Comments Colon Cancer Screening-Colonoscopy 1959 Depression Screening 1959 Hepatitis C Screening 1959 Prostate Cancer Screening-PSA 1959 Pneumococcal vaccine 65+ (1 of 2 - PCV) 1978 Zoster Vaccine (1 of 2) 2009 Abdominal Aortic Aneurysm (AAA) Screen 2024 Well Visit 65+ 2024 DTaP/Tdap/Td Vaccine (1 - Tdap) 05/31/2024 4, 05/09/2024 Influenza Vaccine (#1) 2025 Fall Risk Assessment 03/21/2026 03/21/2025 Hepatitis B Screening Completed 04/11/2024, [address] [place] [place] [address] [employer] [address] Reporter Relationship Specialty Start Date End Date Tawanda Kelley MD [address] [place] [id number] PCP - General Internal Medicine 03/01/24 Sotero Verma MD [address] [place] [address] Referring Physician Nephrology 05/10/24 Brendan Bui MD [facility] [id number] [place] [address] Consulting Physician Vascular Surgery 03/21/25
--- OUTSIDE RECORDS SUMMARY | 2025-08-15 12:11 | XMS_ITS ---
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 Procedures Procedure Date / Time Performed Performing Clinician Savannah ce Details AV Fistula 2024-04-12 05:00:00 Access Site Forearm (Right) Access Use End Date 2025-04-01 05:00:00 Central Venous Catheter (CVC)2023-11-29 05:00:00 Access Site Chest (Right) Access Use Start Date 2023-11-30 00:00:0 0 DIALYSIS TREATMENT INFORMATION Conventional Hemodialysis Date Type Treatment Start Date Treatment End Date Pre-Treatment Vitals Post-Treatment Vitals Weight Gain BFR DFR Actual UF Dialysis Access Augus 2024 In-Ce nter Hemod ialys is Treat ment 2025-05-15 T15:16:11. 000Z 2025-05-15 T18:12:26. 000Z BP Sitting (Pre-Dialysis) 156/86 mmHg BP Sitting (Post-D ialysis ) 148/ 78 mmHg BP Standing (Pre-Dialysis) 146/89 mmHg BP Standing (P ost-Dialysis) 150/78 mmHg Sitting Heart Rate Pre-Dialysis 95 BPM Sitting Heart Rate Post-Dialysis 99 BPM Standing Heart Rate Pre-Dialysis 104 BPM Standing Heart Rate Post-Dialysis 108 BPM Temperature Pre-Dialysis 97.8 degF Temperature Post -Dialysis 98.6 degF May 06, 2025 In-Center Hemodialysis Treatment [id number]:49:00.000Z 5264-83-10F68:50:58.000Z BP Sitting (Pre-Dialysis) 140/80 mmHg BP Sitting (Post-Dialysis) 140/87 mmHg Concurrent Access: falseCentral Venous Catheter (CVC) Chest (Right) Arterial BP Standing (Pre-Dialysis) 132/80 mmHg BP Standing (P ost-Dialysis) 107/77 mmHg Sitting Heart Rate Pre-Dialysis 98 BPM Sitting Heart Rate Post-Dialysis 84 BPM Standing Heart Rate Pre-Dialysis 134 BPM Standing Heart Rate Post-Dialysis 105 BPM Temperature Pre-Dialysis 98.4 degF Temperature Post -Dialysis 98.2 degF May 01, 2025 In-Center Hemodialysis Treatment [id number]:57:45.000Z 6374-87-24P74:03:35.000Z BP Sitting (Pre-Dialysis) 137/80 mmHg BP Sitting (Post-Dialysis) 138/73 mmHg Concurrent Access: falseCentral Venous Catheter (CVC) Chest (Right) Arterial BP Standing (Pre-Dialysis) 147/91 mmHg BP Standing (P ost-Dialysis) 136/82 mmHg Sitting Heart Rate Pre-Dialysis 108 BPM Sitting Heart Rate Post-Dialysis 92 BPM Standing Heart Rate Pre-Dialysis 121 BPM Standing Heart Rate Post-Dialysis 102 BPM Temperature Pre-Dialysis 98.3 degF Temperature Post -Dialysis 98 degF April 29, 2025 In-Center Hemodialysis Treatment [id number]:49:24.000Z 4525-68-94C91:24:49.000Z BP Sitting (Pre-Dialysis) 166/79 mmHg BP Sitting (Post-Dialysis) 145/80 mmHg Concurrent Access: falseCentral Venous Catheter (CVC) Chest (Right) Arterial BP Standing (Pre-Dialysis) 144/91 mmHg BP Standing (P ost-Dialysis) 140/88 mmHg Sitting Heart Rate Pre-Dialysis 106 BPM Sitting Heart Rate Post-Dialysis 93 BPM Standing Heart Rate Pre-Dialysis 118 BPM Standing Heart Rate Post-Dialysis 113 BPM Temperature Pre-Dialysis 98 degF Temperature Post -Dialysis 98 degF April 26, 2025 In-Center Hemodialysis Treatment [id number]:13:27.000Z 3054-97-72C29:40:57.000Z BP Sitting (Pre-Dialysis) 145/83 mmHg BP Sitting (Post-Dialysis) 121/78 mmHg Concurrent Access: falseCentral Venous Catheter (CVC) Chest (Right) Arterial BP Standing (Pre-Dialysis) 132/82 mmHg BP Standing (P ost-Dialysis) 113/79 mmHg Sitting Heart Rate Pre-Dialysis 90 BPM Sitting Heart Rate Post-Dialysis 99 BPM Standing Heart Rate Pre-Dialysis 109 BPM Standing Heart Rate Post-Dialysis 117 BPM Temperature Pre-Dialysis 98 degF Temperature Post -Dialysis 97.5 degF April 19, 2025 In-Center Hemodialysis Treatment [id number]:27:00.000Z 0343-68-16P37:52:58.000Z BP Sitting (Pre-Dialysis) 140/71 mmHg BP Sitting (Post-Dialysis) 117/66 mmHg Concurrent Access: falseCentral Venous Catheter (CVC) Chest (Right) Arterial BP Standing (Pre-Dialysis) 135/76 mmHg BP Standing (P ost-Dialysis) 121/78 mmHg Sitting Heart Rate Pre-Dialysis 97 BPM Sitting Heart Rate Post-Dialysis 91 BPM Standing Heart Rate Pre-Dialysis 106 BPM Standing Heart Rate Post-Dialysis 103 BPM Temperature Pre-Dialysis 98 degF Temperature Post -Dialysis 98 degF April 17, 2025 In-Center Hemodialysis Treatment [id number]:04:47.000Z 9617-12-79L17:52:42.000Z BP Sitting (Pre-Dialysis) 127/80 mmHg BP Sitting (Post-Dialysis) 125/73 mmHg Concurrent Access: falseCentral Venous Catheter (CVC) Chest (Right) Arterial BP Standing (Pre-Dialysis) 125/73 mmHg BP Standing (P ost-Dialysis) 111/73 mmHg Sitting Heart Rate Pre-Dialysis 87 BPM Sitting Heart Rate Post-Dialysis 76 BPM Standing Heart Rate Pre-Dialysis 92 BPM Standing Heart Rate Post-Dialysis 97 BPM Temperature Pre-Dialysis 98 degF Temperature Post -Dialysis 97.6 degF April 15, 2025 In-Center Hemodialysis Treatment [id number]:56:00.000Z 8376-36-91L57:04:07.000Z BP Sitting (Pre-Dialysis) 151/71 mmHg BP Sitting (Post-Dialysis) 123/79 mmHg Concurrent Access: falseCentral Venous Catheter (CVC) Chest (Right) Arterial BP Standing (Pre-Dialysis) 128/77 mmHg BP Standing (P ost-Dialysis) 101/68 mmHg Sitting Heart Rate Pre-Dialysis 93 BPM Sitting Heart Rate Post-Dialysis 94 BPM Standing Heart Rate Pre-Dialysis 107 BPM Standing Heart Rate Post-Dialysis 110 BPM Temperature Pre-Dialysis 98.2 degF Temperature Post -Dialysis 98 degF April 10, 2025 In-Center Hemodialysis Treatment [id number]:56:46.000Z [id number]:18:51.000Z BP Sitting (Pre-Dialysis) 174/88 mmHg BP Sitting (Post-Dialysis) 122/74 mmHg Concurrent Access: falseCentral Venous Catheter (CVC) Chest (Right) Arterial BP Standing (Pre-Dialysis) 169/95 mmHg BP Standing (P ost-Dialysis) 122/75 mmHg Sitting Heart Rate Pre-Dialysis 98 BPM Sitting Heart Rate Post-Dialysis 88 BPM Standing Heart Rate Pre-Dialysis 100 BPM Standing Heart Rate Post-Dialysis 112 BPM Temperature Pre-Dialysis 98.3 degF Temperature Post -Dialysis 97.6 degF April 08, 2025 In-Center Hemodialysis Treatment 7378-90-10K66:12:00.000Z [id number]:19:41.000Z BP Sitting (Pre-Dialysis) 146/75 mmHg BP Sitting (Post-Dialysis) 135/87 mmHg Concurrent Access: falseCentral Venous Catheter (CVC) Chest (Right) Arterial BP Standing (Pre-Dialysis) 136/85 mmHg BP Standing (P ost-Dialysis) 136/72 mmHg Sitting Heart Rate Pre-Dialysis 92 BPM Sitting Heart Rate Post-Dialysis 67 BPM Standing Heart Rate Pre-Dialysis 106 BPM Standing Heart Rate Post-Dialysis 105 BPM Temperature Pre-Dialysis 98.4 degF Temperature Post -Dialysis 98.3 degF April 05, 2025 InCenter Hemodialysis Treatment [id number]:53:10.000Z [id number]:00:40.000Z BP Sitting (Pre-Dialysis) 113/65 mmHg BP Sitting (Post-Dialysis) 138/77 mmHg Concurrent Access: falseCentral Venous Catheter (CVC) Chest (Right) Arterial BP Standing (Pre-Dialysis) 137/82 mmHg BP Standing (P ost-Dialysis) 133/68 mmHg Sitting Heart Rate Pre-Dialysis 103 BPM Sitting Heart Rate Post-Dialysis 87 BPM Standing Heart Rate Pre-Dialysis 92 BPM Standing Heart Rate Post-Dialysis 100 BPM Temperature Pre-Dialysis 98.3 degF Temperature Post -Dialysis 98.2 degF April 03, 2025 InCenter Hemodialysis Treatment [id number]:12:49.000Z 5315-99-13Y75:33:39.000Z BP Sitting (Pre-Dialysis) 113/72 mmHg BP Sitting (Post-Dialysis) 126/77 mmHg Concurrent Access: falseCentral Venous Catheter (CVC) Chest (Right) Arterial BP Standing (Pre-Dialysis) 99/66 mmHg BP Standing (P ost-Dialysis) 101/75 mmHg Sitting Heart Rate Pre-Dialysis 98 BPM Sitting Heart Rate Post-Dialysis 80 BPM Standing Heart Rate Pre-Dialysis 103 BPM Standing Heart Rate Post-Dialysis 102 BPM Temperature Pre-Dialysis 98.5 degF Temperature Post -Dialysis 98.4 degF March 29, 2025 In-Center Hemodialysis Treatment [id number]:45:06.000Z [id number]:35:06.000Z BP Sitting (Pre-Dialysis) 148/74 mmHg BP Sitting (Post-Dialysis) 123/81 mmHg Concurrent Access: falseCentral Venous Catheter (CVC) Chest (Right) ArterialAV Fistula Forearm (Right) Venous BP Standing (Pre-Dialysis) 134/80 mmHg BP Standing (P ost-Dialysis) 127/81 mmHg Sitting Heart Rate Pre-Dialysis 90 BPM Sitting Heart Rate Post-Dialysis 88 BPM Standing Heart Rate Pre-Dialysis 100 BPM Standing Heart Rate Post-Dialysis 100 BPM Temperature Pre-Dialysis 98.2 degF Temperature Post -Dialysis 97.7 degF March 27, 2025 In-Center Hemodialysis Treatment [id number]:01:13.000Z 0319-78-84S26:46:13.000Z BP Sitting (Pre-Dialysis) 147/83 mmHg BP Sitting (Post-Dialysis) 132/90 mmHg Concurrent Access: falseCentral Venous Catheter (CVC) Chest (Right) ArterialAV Fistula Forearm (Right) Venous BP Standing (Pre-Dialysis) 160/95 mmHg BP Standing (P ost-Dialysis) 125/81 mmHg Sitting Heart Rate Pre-Dialysis 70 BPM Sitting Heart Rate Post-Dialysis 82 BPM Standing Heart Rate Pre-Dialysis 86 BPM Standing Heart Rate Post-Dialysis 100 BPM Temperature Pre-Dialysis 97.7 degF Temperature Post -Dialysis 97.9 degF March 20, 2025 In-Center Hemodialysis Treatment 6790-89-29E40:39:00.000Z 7167-42-11Q08:25:33.000Z BP Sitting (Pre-Dialysis) 113/79 mmHg BP Sitting (Post-Dialysis) 111/65 mmHg Concurrent Access: falseCentral Venous Catheter (CVC) Chest (Right) ArterialAV Fistula Forearm (Right) Venous BP Standing (Pre-Dialysis) 88/67 mmHg Sitti ng Heart Rate Post-Dialysis 92 BPM Sitting Heart Rate Pre-Dialysis 101 BPM Temperatu re Post-Dialysis 97.8 degF Standing Heart Rate Pre-Dialysis 129 BPM Temperature Pre-Dialysis 98.3 degF March 18, 2025 In-Center Hemodialysis Treatment [id number]:39:06.000Z 5884-22-89G44:14:31.000Z BP Sitting (Pre-Dialysis) 152/75 mmHg BP Sitting (Post-Dialysis) 108/66 mmHg Concurrent Access: falseCentral Venous Catheter (CVC) Chest (Right) ArterialAV Fistula Forearm (Right) Venous BP Standing (Pre-Dialysis) 144/85 mmHg BP Standing (P ost-Dialysis) 98/70 mmHg Sitting Heart Rate Pre-Dialysis 86 BPM Sitting Heart Rate Post-Dialysis 96 BPM Standing Heart Rate Pre-Dialysis 101 BPM Standing Heart Rate Post-Dialysis 122 BPM Temperature Pre-Dialysis 98.1 degF Temperature Post -Dialysis 97.5 degF March 15, 2025 In-Center Hemodialysis Treatment 4715-06-48X33:59:07.000Z 3495-83-87L93:19:32.000Z BP Sitting (Pre-Dialysis) 129/70 mmHg BP Sitting (Post-Dialysis) 142/73 mmHg Concurrent Access: falseCentral Venous Catheter (CVC) Chest (Right) ArterialAV Fistula Forearm (Right) Venous BP Standing (Pre-Dialysis) 133/79 mmHg BP Standing (P ost-Dialysis) 108/59 mmHg Sitting Heart Rate Pre-Dialysis 78 BPM Sitting Heart Rate Post-Dialysis 107 BPM Standing Heart Rate Pre-Dialysis 96 BPM Standing Heart Rate Post-Dialysis 125 BPM Temperature Pre-Dialysis 97.9 degF Temperature Post -Dialysis 98.3 degF March 13, 2025 In-Center Hemodialysis Treatment 2801-12-82W68:52:00.000Z [id number]:09:27.000Z BP Sitting (Pre-Dialysis) 129/69 mmHg BP Sitting (Post-Dialysis) 100/72 mmHg Concurrent Access: falseCentral Venous Catheter (CVC) Chest (Right) ArterialAV Fistula Forearm (Right) Venous BP Standing (Pre-Dialysis) 125/78 mmHg BP Standing (P ost-Dialysis) 117/74 mmHg Sitting Heart Rate Pre-Dialysis 94 BPM Sitting Heart Rate Post-Dialysis 93 BPM Standing Heart Rate Pre-Dialysis 107 BPM Standing Heart Rate Post-Dialysis 109 BPM Temperature Pre-Dialysis 98.5 degF Temperature Post -Dialysis 98.3 degF March 11, 2025 In-Center Hemodialysis Treatment 6484-75-23H69:46:06.000Z [id number]:19:01.000Z BP Sitting (Pre-Dialysis) 148/67 mmHg BP Sitting (Post-Dialysis) 134/77 mmHg Concurrent Access: falseCentral Venous Catheter (CVC) Chest (Right) ArterialAV Fistula Forearm (Right) Venous BP Standing (Pre-Dialysis) 151/73 mmHg BP Standing (P ost-Dialysis) 121/78 mmHg Sitting Heart Rate Pre-Dialysis 89 BPM Sitting Heart Rate Post-Dialysis 98 BPM Standing Heart Rate Pre-Dialysis 100 BPM Standing Heart Rate Post-Dialysis 110 BPM Temperature Pre-Dialysis 98 degF Temperature Post -Dialysis 97.9 degF March 08, 2025 In-Center Hemodialysis Treatment 9861-48-56R46:40:00.000Z 1038-37-31C94:20:16.000Z BP Sitting (Pre-Dialysis) 131/70 mmHg BP Sitting (Post-Dialysis) 117/70 mmHg Concurrent Access: falseCentral Venous Catheter (CVC) Chest (Right) ArterialAV Fistula Forearm (Right) Venous BP Standing (Pre-Dialysis) 127/75 mmHg BP Standing (P ost-Dialysis) 102/59 mmHg Sitting Heart Rate Pre-Dialysis 106 BPM Sitting Heart Rate Post-Dialysis 95 BPM Standing Heart Rate Pre-Dialysis 108 BPM Standing Heart Rate Post-Dialysis 137 BPM Temperature Pre-Dialysis 98.4 degF Temperature Post -Dialysis 98 degF March 06, 2025 In-Center Hemodialysis Treatment [id number]:48:31.000Z 9720-40-95M73:18:56.000Z BP Sitting (Pre-Dialysis) 125/75 mmHg BP Sitting (Post-Dialysis) 116/67 mmHg Concurrent Access: falseCentral Venous Catheter (CVC) Chest (Right) ArterialAV Fistula Forearm (Right) Venous BP Standing (Pre-Dialysis) 125/79 mmHg BP Standing (P ost-Dialysis) 106/55 mmHg Sitting Heart Rate Pre-Dialysis 94 BPM Sitting Heart Rate Post-Dialysis 100 BPM Standing Heart Rate Pre-Dialysis 115 BPM Standing Heart Rate Post-Dialysis 133 BPM Temperature Pre-Dialysis 98.1 degF Temperature Post -Dialysis 98 degF February 27, 2025 In-Center Hemodialysis Treatment 7442-65-12P61:01:00.000Z 7112-22-31H49:10:26.000Z BP Sitting (Pre-Dialysis) 129/66 mmHg BP Sitting (Post-Dialysis) 115/66 mmHg Concurrent Access: falseCentral Venous Catheter (CVC) Chest (Right) ArterialAV Fistula Forearm (Right) Venous BP Standing (Pre-Dialysis) 122/72 mmHg BP Standing (P ost-Dialysis) 126/72 mmHg Sitting Heart Rate Pre-Dialysis 93 BPM Sitting Heart Rate Post-Dialysis 119 BPM Standing Heart Rate Pre-Dialysis 105 BPM Standing Heart Rate Post-Dialysis 120 BPM Temperature Pre-Dialysis 98.4 degF Temperature Post -Dialysis 97.6 degF February 25, 2025 In-Center Hemodialysis Treatment 4605-66-72G94:03:00.000Z 8740-97-57J15:20:23.000Z BP Sitting (Pre-Dialysis) 154/74 mmHg BP Sitting (Post-Dialysis) 138/72 mmHg Concurrent Access: falseCentral Venous Catheter (CVC) Chest (Right) ArterialAV Fistula Forearm (Right) Venous BP Standing (Pre-Dialysis) 148/76 mmHg BP Standing (P ost-Dialysis) 132/68 mmHg Sitting Heart Rate Pre-Dialysis 99 BPM Sitting Heart Rate Post-Dialysis 103 BPM Standing Heart Rate Pre-Dialysis 104 BPM Standing Heart Rate Post-Dialysis 120 BPM Temperature Pre-Dialysis 97.9 degF Temperature Post -Dialysis 98 degF February 22, 2025 In-Center Hemodialysis Treatment 1201-96-41Q27:53:31.000Z 8744-50-04N67:23:06.000Z BP Sitting (Pre-Dialysis) 140/80 mmHg BP Sitting (Post-Dialysis) 129/71 mmHg Concurrent Access: falseCentral Venous Catheter (CVC) Chest (Right) ArterialAV Fistula Forearm (Right) Venous BP Standing (Pre-Dialysis) 152/80 mmHg BP Standing (P ost-Dialysis) 118/66 mmHg Sitting Heart Rate Pre-Dialysis 98 BPM Sitting Heart Rate Post-Dialysis 102 BPM Standing Heart Rate Pre-Dialysis 98 BPM Standing Heart Rate Post-Dialysis 122 BPM Temperature Pre-Dialysis 97.6 degF Temperature Post -Dialysis 97.7 degF February 20, 2025 In-Center Hemodialysis Treatment [id number]:57:39.000Z 9423-53-14U22:23:04.000Z BP Sitting (Pre-Dialysis) 140/75 mmHg BP Sitting (Post-Dialysis) 119/74 mmHg Concurrent Access: falseCentral Venous Catheter (CVC) Chest (Right) ArterialAV Fistula Forearm (Right) Venous BP Standing (Pre-Dialysis) 117/71 mmHg BP Standing (P ost-Dialysis) 106/74 mmHg Sitting Heart Rate Pre-Dialysis 87 BPM Sitting Heart Rate Post-Dialysis 89 BPM Standing Heart Rate Pre-Dialysis 121 BPM Standing Heart Rate Post-Dialysis 112 BPM Temperature Pre-Dialysis 98 degF Temperature Post -Dialysis 98.1 degF February 18, 2025 In-Center Hemodialysis Treatment 7767-81-63R13:59:00.000Z [id number]:04:08.000Z BP Sitting (Pre-Dialysis) 157/82 mmHg BP Sitting (Post-Dialysis) 116/82 mmHg Concurrent Access: falseCentral Venous Catheter (CVC) Chest (Right) ArterialAV Fistula Forearm (Right) Venous BP Standing (Pre-Dialysis) 138/75 mmHg BP Standing (P ost-Dialysis) 115/80 mmHg Sitting Heart Rate Pre-Dialysis 97 BPM Sitting Heart Rate Post-Dialysis 112 BPM Standing Heart Rate Pre-Dialysis 116 BPM Standing Heart Rate Post-Dialysis 117 BPM Temperature Pre-Dialysis 98.1 degF Temperature Post -Dialysis 98.3 degF February 15, 2025 In-Center Hemodialysis Treatment 3269-37-43U53:22:00.000Z 5845-59-07M22:48:28.000Z BP Sitting (Pre-Dialysis) 120/70 mmHg BP Sitting (Post-Dialysis) 114/75 mmHg Concurrent Access: falseCentral Venous Catheter (CVC) Chest (Right) ArterialAV Fistula Forearm (Right) Venous BP Standing (Pre-Dialysis) 108/68 mmHg BP Standing (P ost-Dialysis) 120/69 mmHg Sitting Heart Rate Pre-Dialysis 99 BPM Sitting Heart Rate Post-Dialysis 104 BPM Standing Heart Rate Pre-Dialysis 102 BPM Standing Heart Rate Post-Dialysis 122 BPM Temperature Pre-Dialysis 97.1 degF Temperature Post -Dialysis 98.4 degF February 13, 2025 In-Center Hemodialysis Treatment [id number]:05:07.000Z 7660-94-58K46:01:22.000Z BP Sitting (Pre-Dialysis) 144/72 mmHg BP Sitting (Post-Dialysis) 115/77 mmHg Concurrent Access: falseCentral Venous Catheter (CVC) Chest (Right) ArterialAV Fistula Forearm (Right) Venous BP Standing (Pre-Dialysis) 119/78 mmHg BP Standing (P ost-Dialysis) 104/71 mmHg Sitting Heart Rate Pre-Dialysis 87 BPM Sitting Heart Rate Post-Dialysis 101 BPM Standing Heart Rate Pre-Dialysis 97 BPM Standing Heart Rate Post-Dialysis 117 BPM Temperature Pre-Dialysis 98.4 degF Temperature Post -Dialysis 98.3 degF February 11, 2025 In-Center Hemodialysis Treatment [id number]:12:24.000Z 9546-73-15F80:42:24.000Z BP Sitting (Pre-Dialysis) 137/70 mmHg BP Sitting (Post-Dialysis) 115/86 mmHg Concurrent Access: falseCentral Venous Catheter (CVC) Chest (Right) ArterialAV Fistula Forearm (Right) Venous BP Standing (Pre-Dialysis) 135/78 mmHg BP Standing (P ost-Dialysis) 108/77 mmHg Sitting Heart Rate Pre-Dialysis 90 BPM Sitting Heart Rate Post-Dialysis 108 BPM Standing Heart Rate Pre-Dialysis 108 BPM Standing Heart Rate Post-Dialysis 102 BPM Temperature Pre-Dialysis 98.6 degF Temperature Post -Dialysis 98.2 degF February 08, 2025 In-Center Hemodialysis Treatment 8021-47-38K27:43:00.000Z 6633-43-63C87:30:14.000Z BP Sitting (Pre-Dialysis) 119/72 mmHg BP Sitting (Post-Dialysis) 132/65 mmHg Concurrent Access: falseCentral Venous Catheter (CVC) Chest (Right) ArterialAV Fistula Forearm (Right) Venous BP Standing (Pre-Dialysis) 135/69 mmHg BP Standing (P ost-Dialysis) 107/68 mmHg Sitting Heart Rate Pre-Dialysis 107 BPM Sitting Heart Rate Post-Dialysis 110 BPM Standing Heart Rate Pre-Dialysis 78 BPM Standing Heart Rate Post-Dialysis 123 BPM Temperature Pre-Dialysis 97.6 degF Temperature Post -Dialysis 98 degF February 06, 2025 In-Center Hemodialysis Treatment [id number]:30:00.000Z 8808-60-13C55:34:30.000Z BP Sitting (Pre-Dialysis) 148/79 mmHg BP Sitting (Post-Dialysis) 122/74 mmHg Concurrent Access: falseCentral Venous Catheter (CVC) Chest (Right) ArterialAV Fistula Forearm (Right) Venous BP Standing (Pre-Dialysis) 152/91 mmHg BP Standing (P ost-Dialysis) 130/69 mmHg Sitting Heart Rate Pre-Dialysis 84 BPM Sitting Heart Rate Post-Dialysis 100 BPM Standing Heart Rate Pre-Dialysis 115 BPM Standing Heart Rate Post-Dialysis 110 BPM Temperature Pre-Dialysis 97.8 degF Temperature Post -Dialysis 98.2 degF January 30, 2025 In-Center Hemodialysis Treatment 2823-75-44X19:08:50.000Z [id number]:05:55.000Z BP Sitting (Pre-Dialysis) 159/86 mmHg BP Sitting (Post-Dialysis) 125/79 mmHg Concurrent Access: falseCentral Venous Catheter (CVC) Chest (Right) ArterialAV Fistula Forearm (Right) Venous BP Standing (Pre-Dialysis) 153/88 mmHg BP Standing (P ost-Dialysis) 131/76 mmHg Sitting Heart Rate Pre-Dialysis 114 BPM Sitting Heart Rate Post-Dialysis 111 BPM Standing Heart Rate Pre-Dialysis 115 BPM Standing Heart Rate Post-Dialysis 118 BPM Temperature Pre-Dialysis 98 degF Temperature Post -Dialysis 98 degF January 23, 2025 In-Center Hemodialysis Treatment 2301-56-08Y55:54:26.000Z 4009-61-26Q36:46:06.000Z BP Sitting (Pre-Dialysis) 150/114 mmHg BP Sitting (Post-Dialysis) 131/84 mmHg Concurrent Access: falseCentral Venous Catheter (CVC) Chest (Right) ArterialAV Fistula Forearm (Right) Venous BP Standing (Pre-Dialysis) 159/105 mmHg BP Standing (P ost-Dialysis) 126/74 mmHg Sitting Heart Rate Pre-Dialysis 108 BPM Sitting Heart Rate Post-Dialysis 96 BPM Standing Heart Rate Pre-Dialysis 106 BPM Standing Heart Rate Post-Dialysis 108 BPM Temperature Pre-Dialysis 98.6 degF Temperature Post -Dialysis 97.3 degF January 14, 2025 In-Center Hemodialysis Treatment 7349-36-69P38:13:00.000Z 4976-61-53K64:15:09.000Z BP Sitting (Pre-Dialysis) 126/73 mmHg BP Sitting (Post-Dialysis) 107/68 mmHg Concurrent Access: falseCentral Venous Catheter (CVC) Chest (Right) ArterialAV Fistula Forearm (Right) Venous BP Standing (Pre-Dialysis) 119/74 mmHg BP Standing (P ost-Dialysis) 106/56 mmHg Sitting Heart Rate Pre-Dialysis 94 BPM Sitting Heart Rate Post-Dialysis 100 BPM Standing Heart Rate Pre-Dialysis 115 BPM Standing Heart Rate Post-Dialysis 111 BPM Temperature Pre-Dialysis 97.3 degF Temperature Post -Dialysis 97.2 degF January 09, 2025 In-Center Hemodialysis Treatment 4440-89-71B02:01:00.000Z 4365-47-97Y56:22:57.000Z BP Sitting (Pre-Dialysis) 158/78 mmHg BP Sitting (Post-Dialysis) 112/74 mmHg Concurrent Access: falseCentral Venous Catheter (CVC) Chest (Right) ArterialAV Fistula Forearm (Right) Venous BP Standing (Pre-Dialysis) 157/81 mmHg BP Standing (P ost-Dialysis) 11/77 mmHg Sitting Heart Rate Pre-Dialysis 102 BPM Sitting Heart Rate Post-Dialysis 99 BPM Standing Heart Rate Pre-Dialysis 110 BPM Standing Heart Rate Post-Dialysis 121 BPM Temperature Pre-Dialysis 97.7 degF Temperature Post -Dialysis 98.1 degF January 07, 2025 In-Center Hemodialysis Treatment [id number]:15:41.000Z 7249-75-68U22:31:31.000Z BP Sitting (Pre-Dialysis) 141/76 mmHg BP Sitting (Post-Dialysis) 135/61 mmHg Concurrent Access: falseCentral Venous Catheter (CVC) Chest (Right) ArterialAV Fistula Forearm (Right) Venous BP Standing (Pre-Dialysis) 143/87 mmHg BP Standing (P ost-Dialysis) 116/75 mmHg Sitting Heart Rate Pre-Dialysis 104 BPM Sitting Heart Rate Post-Dialysis 94 BPM Standing Heart Rate Pre-Dialysis 111 BPM Standing Heart Rate Post-Dialysis 116 BPM Temperature Pre-Dialysis 98.2 degF Temperature Post -Dialysis 97.9 degF January 04, 2025 In-Center Hemodialysis Treatment 7976-12-22I63:35:37.000Z 5801-37-22K17:06:02.000Z BP Sitting (Pre-Dialysis) 146/77 mmHg BP Sitting (Post-Dialysis) 126/75 mmHg Concurrent Access: falseCentral Venous Catheter (CVC) Chest (Right) ArterialAV Fistula Forearm (Right) Venous BP Standing (Pre-Dialysis) 151/90 mmHg BP Standing (P ost-Dialysis) 119/79 mmHg Sitting Heart Rate Pre-Dialysis 92 BPM Sitting Heart Rate Post-Dialysis 97 BPM Standing Heart Rate Pre-Dialysis 121 BPM Standing Heart Rate Post-Dialysis 100 BPM Temperature Pre-Dialysis 97.8 degF Temperature Post -Dialysis 97.7 degF January 02, 2025 In-Center Hemodialysis Treatment 0504-84-03Z10:14:19.000Z 3953-53-77G74:27:39.000Z BP Sitting (Pre-Dialysis) 143/69 mmHg BP Sitting (Post-Dialysis) 118/64 mmHg Concurrent Access: falseCentral Venous Catheter (CVC) Chest (Right) ArterialAV Fistula Forearm (Right) Venous BP Standing (Pre-Dialysis) 150/85 mmHg BP Standing (P ost-Dialysis) 128/73 mmHg Sitting Heart Rate Pre-Dialysis 84 BPM Sitting Heart Rate Post-Dialysis 94 BPM Standing Heart Rate Pre-Dialysis 105 BPM Standing Heart Rate Post-Dialysis 114 BPM Temperature Pre-Dialysis 98 degF Temperature Post -Dialysis 97.6 degF December 31, 2024 In-Center Hemodialysis Treatment 8221-23-23M52:05:28.000Z [id number]:19:38.000Z BP Sitting (Pre-Dialysis) 134/81 mmHg BP Sitting (Post-Dialysis) 117/70 mmHg Concurrent Access: falseCentral Venous Catheter (CVC) Chest (Right) ArterialAV Fistula Forearm (Right) Venous BP Standing (Pre-Dialysis) 123/79 mmHg BP Standing (P ost-Dialysis) 118/61 mmHg Sitting Heart Rate Pre-Dialysis 94 BPM Sitting Heart Rate Post-Dialysis 108 BPM Standing Heart Rate Pre-Dialysis 111 BPM Standing Heart Rate Post-Dialysis 125 BPM Temperature Pre-Dialysis 97.9 degF Temperature Post -Dialysis 97.9 degF December 28, 2024 In-Center Hemodialysis Treatment BP Sitting (Pre-Dialysis) 144/87 mmHg Concurrent Access: falseAV Fistula Forearm (Right) Venous Sitting Heart Rate Pre-Dialysis 100 BPM Temperature Pre-Dialysis 98.8 degF December 24, 2024 In-Center Hemodialysis Treatment [id number]:16:00.000Z [id number]:22:35.000Z BP Sitting (Pre-Dialysis) 135/75 mmHg BP Sitting (Post-Dialysis) 118/66 mmHg Concurrent Access: falseCentral Venous Catheter (CVC) Chest (Right) ArterialAV Fistula Forearm (Right) Venous BP Standing (Pre-Dialysis) 133/73 mmHg BP Standing (P ost-Dialysis) 106/67 mmHg Sitting Heart Rate Pre-Dialysis 99 BPM Sitting Heart Rate Post-Dialysis 102 BPM Standing Heart Rate Pre-Dialysis 113 BPM Standing Heart Rate Post-Dialysis 126 BPM Temperature Pre-Dialysis 98.6 degF Temperature Post -Dialysis 97.6 degF December 21, 2024 In-Center Hemodialysis Treatment [id number]:17:33.000Z [id number]:30:53.000Z BP Sitting (Pre-Dialysis) 165/81 mmHg BP Sitting (Post-Dialysis) 129/77 mmHg Concurrent Access: falseCentral Venous Catheter (CVC) Chest (Right) ArterialAV Fistula Forearm (Right) Venous BP Standing (Pre-Dialysis) 158/78 mmHg BP Standing (P ost-Dialysis) 119/87 mmHg Sitting Heart Rate Pre-Dialysis 91 BPM Sitting Heart Rate Post-Dialysis 96 BPM Standing Heart Rate Pre-Dialysis 104 BPM Standing Heart Rate Post-Dialysis 118 BPM Temperature Pre-Dialysis 98.1 degF Temperature Post -Dialysis 98 degF December 19, 2024 In-Center Hemodialysis Treatment [id number]:11:27.000Z [id number]:35:12.000Z BP Sitting (Pre-Dialysis) 161/79 mmHg BP Sitting (Post-Dialysis) 129/68 mmHg Concurrent Access: falseCentral Venous Catheter (CVC) Chest (Right) ArterialAV Fistula Forearm (Right) Venous BP Standing (Pre-Dialysis) 149/82 mmHg BP Standing (P ost-Dialysis) 158/80 mmHg Sitting Heart Rate Pre-Dialysis 101 BPM Sitting Heart Rate Post-Dialysis 92 BPM Standing Heart Rate Pre-Dialysis 114 BPM Standing Heart Rate Post-Dialysis 118 BPM Temperature Pre-Dialysis 97.1 degF Temperature Post -Dialysis 98.2 degF December 17, 2024 In-Center Hemodialysis Treatment [id number]:02:00.000Z [id number]:31:26.000Z BP Sitting (Pre-Dialysis) 141/83 mmHg BP Sitting (Post-Dialysis) 128/73 mmHg Concurrent Access: falseCentral Venous Catheter (CVC) Chest (Right) ArterialAV Fistula Forearm (Right) Venous BP Standing (Pre-Dialysis) 146/94 mmHg BP Standing (P ost-Dialysis) 127/78 mmHg Sitting Heart Rate Pre-Dialysis 102 BPM Sitting Heart Rate Post-Dialysis 94 BPM Standing Heart Rate Pre-Dialysis 114 BPM Standing Heart Rate Post-Dialysis 118 BPM Temperature Pre-Dialysis 97.7 degF Temperature Post -Dialysis 98.4 degF December 14, 2024 In-Center Hemodialysis Treatment [id number]:10:31.000Z [id number]:28:01.000Z BP Sitting (Pre-Dialysis) 136/72 mmHg BP Sitting (Post-Dialysis) 127/84 mmHg Concurrent Access: falseCentral Venous Catheter (CVC) Chest (Right) ArterialAV Fistula Forearm (Right) Venous BP Standing (Pre-Dialysis) 129/77 mmHg BP Standing (P ost-Dialysis) 147/67 mmHg Sitting Heart Rate Pre-Dialysis 98 BPM Sitting Heart Rate Post-Dialysis 100 BPM Standing Heart Rate Pre-Dialysis 133 BPM Standing Heart Rate Post-Dialysis 112 BPM Temperature Pre-Dialysis 98.2 degF Temperature Post -Dialysis 98.4 degF December 12, 2024 In-Center Hemodialysis Treatment [id number]:12:52.000Z [id number]:23:42.000Z BP Sitting (Pre-Dialysis) 122/67 mmHg BP Sitting (Post-Dialysis) 111/70 mmHg Concurrent Access: falseCentral Venous Catheter (CVC) Chest (Right) ArterialAV Fistula Forearm (Right) Venous BP Standing (Pre-Dialysis) 142/80 mmHg BP Standing (P ost-Dialysis) 115/58 mmHg Sitting Heart Rate Pre-Dialysis 98 BPM Sitting Heart Rate Post-Dialysis 106 BPM Standing Heart Rate Pre-Dialysis 103 BPM Standing Heart Rate Post-Dialysis 114 BPM Temperature Pre-Dialysis 98.1 degF Temperature Post -Dialysis 98 degF December 10, 2024 In-Center Hemodialysis Treatment [id number]:20:00.000Z 3438-63-34Q93:29:50.000Z BP Sitting (Pre-Dialysis) 128/69 mmHg BP Sitting (Post-Dialysis) 119/71 mmHg Concurrent Access: falseCentral Venous Catheter (CVC) Chest (Right) ArterialAV Fistula Forearm (Right) Venous BP Standing (Pre-Dialysis) 133/85 mmHg BP Standing (P ost-Dialysis) 124/56 mmHg Sitting Heart Rate Pre-Dialysis 75 BPM Sitting Heart Rate Post-Dialysis 90 BPM Standing Heart Rate Pre-Dialysis 106 BPM Standing Heart Rate Post-Dialysis 109 BPM Temperature Pre-Dialysis 97.4 degF Temperature Post -Dialysis 98.2 degF December 05, 2024 In-Center Hemodialysis Treatment 1386-70-29S57:00:00.000Z 1994-96-68J99:22:42.000Z BP Sitting (Pre-Dialysis) 137/85 mmHg BP Sitting (Post-Dialysis) 127/83 mmHg Concurrent Access: falseCentral Venous Catheter (CVC) Chest (Right) ArterialAV Fistula Forearm (Right) Venous BP Standing (Pre-Dialysis) 160/96 mmHg BP Standing (P ost-Dialysis) 130/83 mmHg Sitting Heart Rate Pre-Dialysis 90 BPM Sitting Heart Rate Post-Dialysis 107 BPM Standing Heart Rate Pre-Dialysis 98 BPM Standing Heart Rate Post-Dialysis 117 BPM Temperature Pre-Dialysis 98.1 degF Temperature Post -Dialysis 98.2 degF December 03, 2024 In-Center Hemodialysis Treatment [id number]:07:41.000Z [id number]:33:06.000Z BP Sitting (Pre-Dialysis) 137/74 mmHg BP Sitting (Post-Dialysis) 120/68 mmHg Concurrent Access: falseCentral Venous Catheter (CVC) Chest (Right) ArterialAV Fistula Forearm (Right) Venous BP Standing (Pre-Dialysis) 134/75 mmHg BP Standing (P ost-Dialysis) 121/65 mmHg Sitting Heart Rate Pre-Dialysis 86 BPM Sitting Heart Rate Post-Dialysis 78 BPM Standing Heart Rate Pre-Dialysis 95 BPM Standing Heart Rate Post-Dialysis 110 BPM Temperature Pre-Dialysis 97.9 degF November 30, 2024 In-Center Hemodialysis Treatment [id number]:46:40.000Z 0885-04-09Y14:16:15.000Z BP Sitting (Pre-Dialysis) 147/81 mmHg BP Sitting (Post-Dialysis) 138/80 mmHg Concurrent Access: falseCentral Venous Catheter (CVC) Chest (Right) ArterialAV Fistula Forearm (Right) Venous BP Standing (Pre-Dialysis) 154/89 mmHg BP Standing (P ost-Dialysis) 128/81 mmHg Sitting Heart Rate Pre-Dialysis 91 BPM Sitting Heart Rate Post-Dialysis 85 BPM Standing Heart Rate Pre-Dialysis 114 BPM Standing Heart Rate Post-Dialysis 114 BPM Temperature Pre-Dialysis 98.4 degF Temperature Post -Dialysis 98 degF November 28, 2024 In-Center Hemodialysis Treatment [id number]:19:53.000Z 7580-46-03O53:29:03.000Z BP Sitting (Pre-Dialysis) 134/71 mmHg BP Sitting (Post-Dialysis) 115/63 mmHg Concurrent Access: falseCentral Venous Catheter (CVC) Chest (Right) ArterialAV Fistula Forearm (Right) Venous BP Standing (Pre-Dialysis) 130/80 mmHg Sitti ng Heart Rate Post-Dialysis 87 BPM Sitting Heart Rate Pre-Dialysis 89 BPM Temperatu re Post-Dialysis 97.9 degF Standing Heart Rate Pre-Dialysis 111 BPM Temperature Pre-Dialysis 98.6 degF November 26, 2024 In-Center Hemodialysis Treatment [id number]:56:20.000Z 4970-73-14U06:25:05.000Z BP Sitting (Pre-Dialysis) 137/81 mmHg BP Sitting (Post-Dialysis) 127/82 mmHg Concurrent Access: falseCentral Venous Catheter (CVC) Chest (Right) ArterialAV Fistula Forearm (Right) Venous BP Standing (Pre-Dialysis) 160/80 mmHg BP Standing (P ost-Dialysis) 126/72 mmHg Sitting Heart Rate Pre-Dialysis 87 BPM Sitting Heart Rate Post-Dialysis 99 BPM Standing Heart Rate Pre-Dialysis 85 BPM Standing Heart Rate Post-Dialysis 111 BPM Temperature Pre-Dialysis 98.3 degF Temperature Post -Dialysis 98.4 degF November 23, 2024 In-Center Hemodialysis Treatment 400 mL/min 800 mL/min Concurrent Access: false November 16, 2024 In-Center Hemodialysis Treatment 20 25 -0 2- 28 T1 6: 03 :4 5. 00 0Z 20 25 -0 2- 28 T1 9: 03 :4 5. 00 0Z BP Sitting (Pre-Dial ysis) 156/77 mmHg BP Sitting (Post-Di alysis) 136/7 0 mmHg Concurrent Access: falseCentral Venous Catheter (CVC) Chest (Right) ArterialAV Fistula Forearm (Right) Venous BP Standing (Pre-Dialysis) 130/69 mmHg BP Standing (P ost-Dialysis) 129/84 mmHg Sitting Heart Rate Pre-Dialysis 94 BPM Sitting Heart Rate Post-Dialysis 83 BPM Standing Heart Rate Pre-Dialysis 112 BPM Standing Heart Rate Post-Dialysis 101 BPM Temperature Pre-Dialysis 98 degF Temperature Post -Dialysis 98.6 degF November 14, 2024 In-Center Hemodialysis Treatment [id number]:06:46.000Z 9588-84-52Y03:13:26.000Z BP Sitting (Pre-Dialysis) 148/88 mmHg BP Sitting (Post-Dialysis) 133/79 mmHg Concurrent Access: falseCentral Venous Catheter (CVC) Chest (Right) ArterialAV Fistula Forearm (Right) Venous BP Standing (Pre-Dialysis) 136/80 mmHg BP Standing (P ost-Dialysis) 104/71 mmHg Sitting Heart Rate Pre-Dialysis 90 BPM Sitting Heart Rate Post-Dialysis 83 BPM Standing Heart Rate Pre-Dialysis 84 BPM Standing Heart Rate Post-Dialysis 102 BPM Temperature Pre-Dialysis 98.2 degF Temperature Post -Dialysis 98 degF November 09, 2024 In-Center Hemodialysis Treatment [id number]:24:00.000Z 9962-75-64M28:33:01.000Z BP Sitting (Pre-Dialysis) 152/87 mmHg BP Sitting (Post-Dialysis) 100/61 mmHg Concurrent Access: falseCentral Venous Catheter (CVC) Chest (Right) ArterialAV Fistula Forearm (Right) Venous BP Standing (Pre-Dialysis) 133/90 mmHg BP Standing (P ost-Dialysis) 114/70 mmHg Sitting Heart Rate Pre-Dialysis 100 BPM Sitting Heart Rate Post-Dialysis 101 BPM Standing Heart Rate Pre-Dialysis 117 BPM Standing Heart Rate Post-Dialysis 115 BPM Temperature Pre-Dialysis 98.1 degF Temperature Post -Dialysis 98 degF November 05, 2024 In-Center Hemodialysis Treatment 3842-99-67Z58:00:01.000Z 0546-76-59P50:34:36.000Z BP Sitting (Pre-Dialysis) 151/70 mmHg BP Sitting (Post-Dialysis) 135/66 mmHg Concurrent Access: falseCentral Venous Catheter (CVC) Chest (Right) ArterialAV Fistula Forearm (Right) Venous BP Standing (Pre-Dialysis) 143/89 mmHg BP Standing (P ost-Dialysis) 119/57 mmHg Sitting Heart Rate Pre-Dialysis 94 BPM Sitting Heart Rate Post-Dialysis 88 BPM Standing Heart Rate Pre-Dialysis 103 BPM Standing Heart Rate Post-Dialysis 111 BPM Temperature Pre-Dialysis 98.4 degF Temperature Post -Dialysis 97.4 degF November 02, 2024 In-Center Hemodialysis Treatment 7750-05-59C07:13:01.000Z 8531-30-32A10:12:36.000Z BP Sitting (Pre-Dialysis) 158/91 mmHg BP Sitting (Post-Dialysis) 122/72 mmHg Concurrent Access: falseCentral Venous Catheter (CVC) Chest (Right) ArterialAV Fistula Forearm (Right) Venous BP Standing (Pre-Dialysis) 155/97 mmHg BP Standing (P ost-Dialysis) 126/73 mmHg Sitting Heart Rate Pre-Dialysis 98 BPM Sitting Heart Rate Post-Dialysis 108 BPM Standing Heart Rate Pre-Dialysis 103 BPM Standing Heart Rate Post-Dialysis 118 BPM Temperature Pre-Dialysis 98.1 degF Temperature Post -Dialysis 97.7 degF October 31, 2024 In-Center Hemodialysis Treatment [id number]:14:00.000Z 2992-38-25E91:53:00.000Z BP Sitting (Pre-Dialysis) 138/71 mmHg BP Sitting (Post-Dialysis) 139/99 mmHg Concurrent Access: falseCentral Venous Catheter (CVC) Chest (Right) ArterialAV Fistula Forearm (Right) Venous BP Standing (Pre-Dialysis) 143/87 mmHg BP Standing (P ost-Dialysis) 127/78 mmHg Sitting Heart Rate Pre-Dialysis 88 BPM Sitting Heart Rate Post-Dialysis 103 BPM Standing Heart Rate Pre-Dialysis 102 BPM Standing Heart Rate Post-Dialysis 113 BPM Temperature Pre-Dialysis 98.3 degF Temperature Post -Dialysis 98 degF October 29, 2024 In-Center Hemodialysis Treatment [id number]:19:18.000Z 6772-20-85K87:27:13.000Z BP Sitting (Pre-Dialysis) 144/85 mmHg BP Sitting (Post-Dialysis) 118/71 mmHg Concurrent Access: falseCentral Venous Catheter (CVC) Chest (Right) ArterialAV Fistula Forearm (Right) Venous BP Standing (Pre-Dialysis) 146/77 mmHg BP Standing (P ost-Dialysis) 126/77 mmHg Sitting Heart Rate Pre-Dialysis 89 BPM Sitting Heart Rate Post-Dialysis 98 BPM Standing Heart Rate Pre-Dialysis 98 BPM Standing Heart Rate Post-Dialysis 119 BPM Temperature Pre-Dialysis 98.7 degF Temperature Post -Dialysis 98 degF October 24, 2024 In-Center Hemodialysis Treatment 5879-96-25V83:23:00.000Z 3722-07-32I87:21:02.000Z BP Sitting (Pre-Dialysis) 144/77 mmHg BP Sitting (Post-Dialysis) 147/74 mmHg Concurrent Access: falseCentral Venous Catheter (CVC) Chest (Right) ArterialAV Fistula Forearm (Right) Venous BP Standing (Pre-Dialysis) 173/92 mmHg BP Standing (P ost-Dialysis) 118/79 mmHg Sitting Heart Rate Pre-Dialysis 83 BPM Sitting Heart Rate Post-Dialysis 90 BPM Standing Heart Rate Pre-Dialysis 97 BPM Standing Heart Rate Post-Dialysis 115 BPM Temperature Pre-Dialysis 98.4 degF Temperature Post -Dialysis 98.1 degF October 19, 2024 In-Center Hemodialysis Treatment [id number]:59:25.000Z 0775-63-89M80:29:00.000Z BP Sitting (Pre-Dialysis) 139/76 mmHg BP Sitting (Post-Dialysis) 144/68 mmHg Concurrent Access: falseCentral Venous Catheter (CVC) Chest (Right) ArterialAV Fistula Forearm (Right) Venous BP Standing (Pre-Dialysis) 127/88 mmHg BP Standing (P ost-Dialysis) 116/54 mmHg Sitting Heart Rate Pre-Dialysis 88 BPM Sitting Heart Rate Post-Dialysis 99 BPM Standing Heart Rate Pre-Dialysis 109 BPM Standing Heart Rate Post-Dialysis 111 BPM Temperature Pre-Dialysis 98.2 degF Temperature Post -Dialysis 97.9 degF October 10, 2024 In-Center Hemodialysis Treatment [id number]:19:00.000Z 3104-55-73Q40:29:46.000Z BP Sitting (Pre-Dialysis) 145/96 mmHg BP Sitting (Post-Dialysis) 133/77 mmHg Concurrent Access: falseCentral Venous Catheter (CVC) Chest (Right) ArterialAV Fistula Forearm (Right) Venous BP Standing (Pre-Dialysis) 143/83 mmHg BP Standing (P ost-Dialysis) 139/77 mmHg Sitting Heart Rate Pre-Dialysis 88 BPM Sitting Heart Rate Post-Dialysis 96 BPM Standing Heart Rate Pre-Dialysis 85 BPM Standing Heart Rate Post-Dialysis 117 BPM Temperature Pre-Dialysis 98 degF Temperature Post -Dialysis 98.7 degF October 03, 2024 In-Center Hemodialysis Treatment 8596-70-13D25:24:00.000Z 6759-62-75O88:37:36.000Z BP Sitting (Pre-Dialysis) 138/62 mmHg BP Sitting (Post-Dialysis) 134/77 mmHg Concurrent Access: falseCentral Venous Catheter (CVC) Chest (Right) ArterialAV Fistula Forearm (Right) Venous BP Standing (Pre-Dialysis) 126/90 mmHg BP Standing (P ost-Dialysis) 121/72 mmHg Sitting Heart Rate Pre-Dialysis 79 BPM Sitting Heart Rate Post-Dialysis 96 BPM Standing Heart Rate Pre-Dialysis 109 BPM Standing Heart Rate Post-Dialysis 116 BPM Temperature Pre-Dialysis 97.2 degF Temperature Post -Dialysis 97 degF October 01, 2024 In-Center Hemodialysis Treatment [id number]:57:00.000Z [id number]:27:35.000Z BP Sitting (Pre-Dialysis) 146/103 mmHg BP Sitting (Post-Dialysis) 124/71 mmHg Concurrent Access: falseCentral Venous Catheter (CVC) Chest (Right) ArterialAV Fistula Forearm (Right) Venous BP Standing (Pre-Dialysis) 120/77 mmHg BP Standing (P ost-Dialysis) 108/76 mmHg Sitting Heart Rate Pre-Dialysis 80 BPM Sitting Heart Rate Post-Dialysis 103 BPM Standing Heart Rate Pre-Dialysis 99 BPM Standing Heart Rate Post-Dialysis 121 BPM Temperature Pre-Dialysis 98 degF Temperature Post -Dialysis 98.2 degF September 26, 2024 In-Center Hemodialysis Treatment [id number]:07:00.000Z [id number]:28:00.000Z BP Sitting (Pre-Dialysis) 148/106 mmHg BP Sitting (Post-Dialysis) 128/78 mmHg Concurrent Access: falseCentral Venous Catheter (CVC) Chest (Right) ArterialAV Fistula Forearm (Right) Venous BP Standing (Pre-Dialysis) 149/90 mmHg BP Standing (P ost-Dialysis) 109/75 mmHg Sitting Heart Rate Pre-Dialysis 81 BPM Sitting Heart Rate Post-Dialysis 90 BPM Standing Heart Rate Pre-Dialysis 95 BPM Standing Heart Rate Post-Dialysis 120 BPM Temperature Pre-Dialysis 97.9 degF Temperature Post -Dialysis 98.3 degF September 21, 2024 In-Center Hemodialysis Treatment 4321-63-31S40:50:00.000Z 5749-31-70T57:19:05.000Z BP Sitting (Pre-Dialysis) 147/84 mmHg BP Sitting (Post-Dialysis) 144/79 mmHg Concurrent Access: falseCentral Venous Catheter (CVC) Chest (Right) ArterialAV Fistula Forearm (Right) Venous BP Standing (Pre-Dialysis) 167/91 mmHg BP Standing (P ost-Dialysis) 116/74 mmHg Sitting Heart Rate Pre-Dialysis 90 BPM Sitting Heart Rate Post-Dialysis 98 BPM Standing Heart Rate Pre-Dialysis 98 BPM Standing Heart Rate Post-Dialysis 126 BPM Temperature Pre-Dialysis 97.6 degF Temperature Post -Dialysis 97.3 degF September 14, 2024 In-Center Hemodialysis Treatment 6134-49-13K65:40:00.000Z 5384-59-26R23:32:02.000Z BP Sitting (Pre-Dialysis) 130/77 mmHg BP Sitting (Post-Dialysis) 131/74 mmHg Concurrent Access: falseCentral Venous Catheter (CVC) Chest (Right) ArterialAV Fistula Forearm (Right) Venous BP Standing (Pre-Dialysis) 136/73 mmHg BP Standing (P ost-Dialysis) 133/56 mmHg Sitting Heart Rate Pre-Dialysis 96 BPM Sitting Heart Rate Post-Dialysis 101 BPM Standing Heart Rate Pre-Dialysis 102 BPM Standing Heart Rate Post-Dialysis 110 BPM Temperature Pre-Dialysis 98 degF Temperature Post -Dialysis 98 degF September 11, 2024 In-Center Hemodialysis Treatment 7738-90-44P11:18:08.000Z 5802-19-12T10:26:53.000Z BP Sitting (Pre-Dialysis) 115/59 mmHg BP Sitting (Post-Dialysis) 112/69 mmHg Concurrent Access: falseCentral Venous Catheter (CVC) Chest (Right) ArterialAV Fistula Forearm (Right) Venous BP Standing (Pre-Dialysis) 129/77 mmHg Sitti ng Heart Rate Post-Dialysis 100 BPM Sitting Heart Rate Pre-Dialysis 84 BPM Temperatu re Post-Dialysis 97.9 degF Standing Heart Rate Pre-Dialysis 98 BPM Temperature Pre-Dialysis 98 degF September 07, 2024 In-Center Hemodialysis Treatment 4873-81-92Q17:17:00.000Z 6203-70-58U19:28:16.000Z BP Sitting (Pre-Dialysis) 137/76 mmHg BP Sitting (Post-Dialysis) 127/68 mmHg Concurrent Access: falseCentral Venous Catheter (CVC) Chest (Right) ArterialAV Fistula Forearm (Right) Venous BP Standing (Pre-Dialysis) 142/82 mmHg BP Standing (P ost-Dialysis) 128/85 mmHg Sitting Heart Rate Pre-Dialysis 83 BPM Sitting Heart Rate Post-Dialysis 90 BPM Standing Heart Rate Pre-Dialysis 102 BPM Standing Heart Rate Post-Dialysis 111 BPM Temperature Pre-Dialysis 98.1 degF Temperature Post -Dialysis 97.7 degF September 05, 2024 In-Center Hemodialysis Treatment 2984-23-78L01:05:00.000Z 7839-33-43E58:06:40.000Z BP Sitting (Pre-Dialysis) 144/71 mmHg BP Sitting (Post-Dialysis) 118/74 mmHg Concurrent Access: falseCentral Venous Catheter (CVC) Chest (Right) ArterialAV Fistula Forearm (Right) Venous BP Standing (Pre-Dialysis) 144/79 mmHg BP Standing (P ost-Dialysis) 118/70 mmHg Sitting Heart Rate Pre-Dialysis 93 BPM Sitting Heart Rate Post-Dialysis 97 BPM Standing Heart Rate Pre-Dialysis 100 BPM Standing Heart Rate Post-Dialysis 116 BPM Temperature Pre-Dialysis 97.3 degF Temperature Post -Dialysis 97.9 degF September 03, 2024 In-Center Hemodialysis Treatment 3016-68-13T67:01:20.000Z 1914-19-29W13:26:20.000Z BP Sitting (Pre-Dialysis) 137/75 mmHg BP Sitting (Post-Dialysis) 107/61 mmHg Concurrent Access: falseCentral Venous Catheter (CVC) Chest (Right) ArterialAV Fistula Forearm (Right) Venous BP Standing (Pre-Dialysis) 125/71 mmHg BP Standing (P ost-Dialysis) 117/69 mmHg Sitting Heart Rate Pre-Dialysis 96 BPM Sitting Heart Rate Post-Dialysis 106 BPM Standing Heart Rate Pre-Dialysis 113 BPM Standing Heart Rate Post-Dialysis 119 BPM Temperature Pre-Dialysis 98 degF Temperature Post -Dialysis 97.6 degF August 31, 2024 In-Center Hemodialysis Treatment [id number]:19:15.000Z 9485-73-69K48:35:05.000Z BP Sitting (Pre-Dialysis) 136/68 mmHg BP Sitting (Post-Dialysis) 125/77 mmHg Concurrent Access: falseCentral Venous Catheter (CVC) Chest (Right) ArterialAV Fistula Forearm (Right) Venous BP Standing (Pre-Dialysis) 136/78 mmHg BP Standing (P ost-Dialysis) 119/79 mmHg Sitting Heart Rate Pre-Dialysis 89 BPM Sitting Heart Rate Post-Dialysis 110 BPM Standing Heart Rate Pre-Dialysis 105 BPM Standing Heart Rate Post-Dialysis 120 BPM Temperature Pre-Dialysis 98 degF Temperature Post -Dialysis 98 degF August 29, 2024 In-Center Hemodialysis Treatment [id number]:22:00.000Z 7156-20-12E66:32:19.000Z BP Sitting (Pre-Dialysis) 146/67 mmHg BP Sitting (Post-Dialysis) 128/76 mmHg Concurrent Access: falseCentral Venous Catheter (CVC) Chest (Right) ArterialAV Fistula Forearm (Right) Venous BP Standing (Pre-Dialysis) 12/74 mmHg BP Standing (P ost-Dialysis) 114/73 mmHg Sitting Heart Rate Pre-Dialysis 80 BPM Sitting Heart Rate Post-Dialysis 92 BPM Standing Heart Rate Pre-Dialysis 100 BPM Standing Heart Rate Post-Dialysis 119 BPM Temperature Pre-Dialysis 98 degF Temperature Post -Dialysis 98 degF August 27, 2024 In-Center Hemodialysis Treatment 2723-03-03W61:55:00.000Z 6074-14-90O80:28:03.000Z BP Sitting (Pre-Dialysis) 156/97 mmHg BP Sitting (Post-Dialysis) 137/72 mmHg Concurrent Access: falseCentral Venous Catheter (CVC) Chest (Right) ArterialAV Fistula Forearm (Right) Venous BP Standing (Pre-Dialysis) 145/82 mmHg BP Standing (P ost-Dialysis) 111/74 mmHg Sitting Heart Rate Pre-Dialysis 98 BPM Sitting Heart Rate Post-Dialysis 90 BPM Standing Heart Rate Pre-Dialysis 101 BPM Standing Heart Rate Post-Dialysis 119 BPM Temperature Pre-Dialysis 97.7 degF Temperature Post -Dialysis 98.1 degF August 22, 2024 In-Center Hemodialysis Treatment 0156-60-85M76:00:00.000Z 1041-32-36U83:33:18.000Z BP Sitting (Pre-Dialysis) 131/62 mmHg BP Sitting (Post-Dialysis) 125/72 mmHg Concurrent Access: falseCentral Venous Catheter (CVC) Chest (Right) ArterialAV Fistula Forearm (Right) Venous BP Standing (Pre-Dialysis) 125/69 mmHg BP Standing (P ost-Dialysis) 117/81 mmHg Sitting Heart Rate Pre-Dialysis 93 BPM Sitting Heart Rate Post-Dialysis 88 BPM Standing Heart Rate Pre-Dialysis 114 BPM Standing Heart Rate Post-Dialysis 98 BPM Temperature Pre-Dialysis 97.9 degF Temperature Post -Dialysis 98 degF August 20, 2024 In-Center Hemodialysis Treatment 5582-23-76Q92:10:00.000Z 8255-13-69A94:23:27.000Z BP Sitting (Pre-Dialysis) 122/64 mmHg BP Sitting (Post-Dialysis) 123/65 mmHg Concurrent Access: falseCentral Venous Catheter (CVC) Chest (Right) ArterialAV Fistula Forearm (Right) Venous BP Standing (Pre-Dialysis) 102/70 mmHg Sitti ng Heart Rate Post-Dialysis 83 BPM Sitting Heart Rate Pre-Dialysis 90 BPM Temperatu re Post-Dialysis 98.1 degF Standing Heart Rate Pre-Dialysis 114 BPM Temperature Pre-Dialysis 98.4 degF August 17, 2024 In-Center Hemodialysis Treatment [id number]:54:06.000Z 3909-58-37O03:54:31.000Z BP Sitting (Pre-Dialysis) 120/72 mmHg BP Sitting (Post-Dialysis) 113/67 mmHg Concurrent Access: falseCentral Venous Catheter (CVC) Chest (Right) ArterialAV Fistula Forearm (Right) Venous BP Standing (Pre-Dialysis) 122/68 mmHg BP Standing (P ost-Dialysis) 105/61 mmHg Sitting Heart Rate Pre-Dialysis 98 BPM Sitting Heart Rate Post-Dialysis 118 BPM Standing Heart Rate Pre-Dialysis 96 BPM Standing Heart Rate Post-Dialysis 127 BPM Temperature Pre-Dialysis 98.1 degF Temperature Post -Dialysis 98.1 degF August 14, 2024 In-Center Hemodialysis Treatment [id number]:39:35.000Z 6608-61-60P86:50:50.000Z BP Sitting (Pre-Dialysis) 133/78 mmHg BP Sitting (Post-Dialysis) 138/84 mmHg Concurrent Access: falseCentral Venous Catheter (CVC) Chest (Right) ArterialAV Fistula Forearm (Right) Venous BP Standing (Pre-Dialysis) 164/92 mmHg BP Standing (P ost-Dialysis) 127/75 mmHg Sitting Heart Rate Pre-Dialysis 96 BPM Sitting Heart Rate Post-Dialysis 104 BPM Standing Heart Rate Pre-Dialysis 113 BPM Standing Heart Rate Post-Dialysis 118 BPM Temperature Pre-Dialysis 98.3 degF Temperature Post -Dialysis 98.1 degF August 10, 2024 In-Center Hemodialysis Treatment 1089-72-57D80:31:00.000Z 6730-50-91Z63:03:46.000Z BP Sitting (Pre-Dialysis) 144/81 mmHg BP Sitting (Post-Dialysis) 133/81 mmHg Concurrent Access: falseCentral Venous Catheter (CVC) Chest (Right) ArterialAV Fistula Forearm (Right) Venous BP Standing (Pre-Dialysis) 155/86 mmHg BP Standing (P ost-Dialysis) 137/76 mmHg Sitting Heart Rate Pre-Dialysis 95 BPM Sitting Heart Rate Post-Dialysis 88 BPM Standing Heart Rate Pre-Dialysis 110 BPM Standing Heart Rate Post-Dialysis 110 BPM Temperature Pre-Dialysis 98 degF Temperature Post -Dialysis 98.2 degF August 08, 2024 In-Center Hemodialysis Treatment [id number]:46:00.000Z [id number]:16:41.000Z BP Sitting (Pre-Dialysis) 151/66 mmHg BP Sitting (Post-Dialysis) 163/93 mmHg Concurrent Access: falseCentral Venous Catheter (CVC) Chest (Right) ArterialAV Fistula Forearm (Right) Venous BP Standing (Pre-Dialysis) 156/98 mmHg BP Standing (P ost-Dialysis) 121/72 mmHg Sitting Heart Rate Pre-Dialysis 101 BPM Sitting Heart Rate Post-Dialysis 88 BPM Standing Heart Rate Pre-Dialysis 105 BPM Standing Heart Rate Post-Dialysis 109 BPM Temperature Pre-Dialysis 97.4 degF Temperature Post -Dialysis 98 degF August 06, 2024 In-Center Hemodialysis Treatment [id number]:59:00.000Z 1858-25-28P77:32:45.000Z BP Sitting (Pre-Dialysis) 140/70 mmHg BP Sitting (Post-Dialysis) 122/73 mmHg Concurrent Access: falseCentral Venous Catheter (CVC) Chest (Right) ArterialAV Fistula Forearm (Right) Venous BP Standing (Pre-Dialysis) 157/96 mmHg BP Standing (P ost-Dialysis) 119/55 mmHg Sitting Heart Rate Pre-Dialysis 85 BPM Sitting Heart Rate Post-Dialysis 106 BPM Standing Heart Rate Pre-Dialysis 112 BPM Standing Heart Rate Post-Dialysis 126 BPM Temperature Pre-Dialysis 98.3 degF Temperature Post -Dialysis 97.6 degF July 30, 2024 In-Center Hemodialysis Treatment 0614-82-00V51:04:00.000Z 3224-12-59G13:14:28.000Z BP Sitting (Pre-Dialysis) 155/118 mmHg BP Sitting (Post-Dialysis) 127/65 mmHg Concurrent Access: falseCentral Venous Catheter (CVC) Chest (Right) ArterialAV Fistula Forearm (Right) Venous BP Standing (Pre-Dialysis) 148/90 mmHg BP Standing (P ost-Dialysis) 134/74 mmHg Sitting Heart Rate Pre-Dialysis 83 BPM Sitting Heart Rate Post-Dialysis 86 BPM Standing Heart Rate Pre-Dialysis 111 BPM Standing Heart Rate Post-Dialysis 114 BPM Temperature Pre-Dialysis 97.2 degF Temperature Post -Dialysis 98.3 degF July 23, 2024 In-Center Hemodialysis Treatment 6785-50-45Y60:47:16.000Z 0714-03-83N07:30:36.000Z BP Sitting (Pre-Dialysis) 139/87 mmHg BP Sitting (Post-Dialysis) 113/61 mmHg Concurrent Access: falseCentral Venous Catheter (CVC) Chest (Right) ArterialAV Fistula Forearm (Right) Venous BP Standing (Pre-Dialysis) 133/82 mmHg BP Standing (P ost-Dialysis) 106/70 mmHg Sitting Heart Rate Pre-Dialysis 96 BPM Sitting Heart Rate Post-Dialysis 79 BPM Standing Heart Rate Pre-Dialysis 114 BPM Standing Heart Rate Post-Dialysis 105 BPM Temperature Pre-Dialysis 98.8 degF Temperature Post -Dialysis 98 degF July 11, 2024 In-Center Hemodialysis Treatment 4458-87-99E79:25:04.000Z 9058-16-31A68:27:34.000Z BP Sitting (Pre-Dialysis) 136/71 mmHg BP Sitting (Post-Dialysis) 133/74 mmHg Concurrent Access: falseCentral Venous Catheter (CVC) Chest (Right) ArterialAV Fistula Forearm (Right) Venous BP Standing (Pre-Dialysis) 140/80 mmHg BP Standing (P ost-Dialysis) 126/74 mmHg Sitting Heart Rate Pre-Dialysis 101 BPM Sitting Heart Rate Post-Dialysis 86 BPM Standing Heart Rate Pre-Dialysis 126 BPM Standing Heart Rate Post-Dialysis 104 BPM Temperature Pre-Dialysis 98.3 degF Temperature Post -Dialysis 98.1 degF July 09, 2024 In-Center Hemodialysis Treatment 7637-80-98Q37:08:26.000Z 8884-87-85L70:31:46.000Z BP Sitting (Pre-Dialysis) 118/65 mmHg BP Sitting (Post-Dialysis) 119/72 mmHg Concurrent Access: falseCentral Venous Catheter (CVC) Chest (Right) ArterialAV Fistula Forearm (Right) Venous BP Standing (Pre-Dialysis) 103/61 mmHg BP Standing (P ost-Dialysis) 101/59 mmHg Sitting Heart Rate Pre-Dialysis 82 BPM Sitting Heart Rate Post-Dialysis 86 BPM Standing Heart Rate Pre-Dialysis 94 BPM Standing Heart Rate Post-Dialysis 98 BPM Temperature Pre-Dialysis 97.9 degF Temperature Post -Dialysis 97.3 degF July 02, 2024 In-Center Hemodialysis Treatment 9008-44-44H66:47:00.000Z 2542-12-96Z09:18:09.000Z BP Sitting (Pre-Dialysis) 138/82 mmHg BP Sitting (Post-Dialysis) 107/54 mmHg Concurrent Access: falseCentral Venous Catheter (CVC) Chest (Right) ArterialAV Fistula Forearm (Right) Venous BP Standing (Pre-Dialysis) 136/89 mmHg BP Standing (P ost-Dialysis) 120/66 mmHg Sitting Heart Rate Pre-Dialysis 101 BPM Sitting Heart Rate Post-Dialysis 100 BPM Standing Heart Rate Pre-Dialysis 121 BPM Standing Heart Rate Post-Dialysis 113 BPM Temperature Pre-Dialysis 97.6 degF Temperature Post -Dialysis 98.2 degF June 29, 2024 In-Center Hemodialysis Treatment 3903-43-14Z87:56:59.000Z 6735-64-25X66:26:59.000Z BP Sitting (Pre-Dialysis) 160/80 mmHg BP Sitting (Post-Dialysis) 119/69 mmHg Concurrent Access: falseCentral Venous Catheter (CVC) Chest (Right) ArterialAV Fistula Forearm (Right) Venous BP Standing (Pre-Dialysis) 157/89 mmHg BP Standing (P ost-Dialysis) 143/82 mmHg Sitting Heart Rate Pre-Dialysis 91 BPM Sitting Heart Rate Post-Dialysis 100 BPM Standing Heart Rate Pre-Dialysis 119 BPM Standing Heart Rate Post-Dialysis 114 BPM Temperature Pre-Dialysis 97.7 degF Temperature Post -Dialysis 98.1 degF June 25, 2024 In-Center Hemodialysis Treatment 8698-74-67J02:56:00.000Z 9892-06-27U75:56:00.000Z BP Sitting (Pre-Dialysis) 139/73 mmHg BP Sitting (Post-Dialysis) 129/69 mmHg Concurrent Access: falseCentral Venous Catheter (CVC) Chest (Right) ArterialAV Fistula Forearm (Right) Venous BP Standing (Pre-Dialysis) 137/83 mmHg BP Standing (P ost-Dialysis) 117/51 mmHg Sitting Heart Rate Pre-Dialysis 81 BPM Sitting Heart Rate Post-Dialysis 88 BPM Standing Heart Rate Pre-Dialysis 99 BPM Standing Heart Rate Post-Dialysis 116 BPM Temperature Pre-Dialysis 97.7 degF Temperature Post -Dialysis 97.6 degF June 20, 2024 In-Center Hemodialysis Treatment 6458-50-70I00:00:08.000Z 3523-69-44M75:20:08.000Z BP Sitting (Pre-Dialysis) 167/95 mmHg BP Sitting (Post-Dialysis) 149/79 mmHg Concurrent Access: falseCentral Venous Catheter (CVC) Chest (Right) ArterialAV Fistula Forearm (Right) Venous BP Standing (Pre-Dialysis) 164/91 mmHg BP Standing (P ost-Dialysis) 139/76 mmHg Sitting Heart Rate Pre-Dialysis 89 BPM Sitting Heart Rate Post-Dialysis 79 BPM Standing Heart Rate Pre-Dialysis 107 BPM Standing Heart Rate Post-Dialysis 106 BPM Temperature Pre-Dialysis 97.6 degF Temperature Post -Dialysis 97.6 degF June 13, 2024 In-Center Hemodialysis Treatment 1515-25-77N33:23:29.000Z 6642-11-69U35:18:54.000Z BP Sitting (Pre-Dialysis) 148/78 mmHg BP Sitting (Post-Dialysis) 132/76 mmHg Concurrent Access: falseCentral Venous Catheter (CVC) Chest (Right) ArterialAV Fistula Forearm (Right) Venous BP Standing (Pre-Dialysis) 143/76 mmHg BP Standing (P ost-Dialysis) 131/75 mmHg Sitting Heart Rate Pre-Dialysis 98 BPM Sitting Heart Rate Post-Dialysis 91 BPM Standing Heart Rate Pre-Dialysis 113 BPM Standing Heart Rate Post-Dialysis 114 BPM Temperature Pre-Dialysis 98.2 degF Temperature Post -Dialysis 98 degF June 11, 2024 In-Center Hemodialysis Treatment 2209-41-72T51:07:00.000Z 2510-14-84M54:27:24.000Z BP Sitting (Pre-Dialysis) 151/86 mmHg BP Sitting (Post-Dialysis) 116/76 mmHg Concurrent Access: falseCentral Venous Catheter (CVC) Chest (Right) ArterialAV Fistula Forearm (Right) Venous BP Standing (Pre-Dialysis) 163/88 mmHg BP Standing (P ost-Dialysis) 123/64 mmHg Sitting Heart Rate Pre-Dialysis 100 BPM Sitting Heart Rate Post-Dialysis 96 BPM Standing Heart Rate Pre-Dialysis 123 BPM Standing Heart Rate Post-Dialysis 112 BPM Temperature Pre-Dialysis 97.3 degF Temperature Post -Dialysis 98.1 degF June 08, 2024 In-Center Hemodialysis Treatment 3066-27-92W93:28:00.000Z 7887-19-50L66:29:42.000Z BP Sitting (Pre-Dialysis) 157/81 mmHg BP Sitting (Post-Dialysis) 142/74 mmHg Concurrent Access: falseCentral Venous Catheter (CVC) Chest (Right) ArterialAV Fistula Forearm (Right) Venous BP Standing (Pre-Dialysis) 146/79 mmHg BP Standing (P ost-Dialysis) 120/86 mmHg Sitting Heart Rate Pre-Dialysis 109 BPM Sitting Heart Rate Post-Dialysis 99 BPM Standing Heart Rate Pre-Dialysis 133 BPM Standing Heart Rate Post-Dialysis 140 BPM Temperature Pre-Dialysis 98.4 degF Temperature Post -Dialysis 98.2 degF June 06, 2024 In-Center Hemodialysis Treatment 5052-13-44C68:11:38.000Z 0473-76-06Y12:31:14.000Z BP Sitting (Pre-Dialysis) 137/71 mmHg BP Sitting (Post-Dialysis) 125/76 mmHg Concurrent Access: falseCentral Venous Catheter (CVC) Chest (Right) ArterialAV Fistula Forearm (Right) Venous BP Standing (Pre-Dialysis) 114/64 mmHg BP Standing (P ost-Dialysis) 104/58 mmHg Sitting Heart Rate Pre-Dialysis 100 BPM Sitting Heart Rate Post-Dialysis 91 BPM Standing Heart Rate Pre-Dialysis 116 BPM Standing Heart Rate Post-Dialysis 118 BPM Temperature Pre-Dialysis 98.1 degF Temperature Post -Dialysis 97.8 degF June 04, 2024 In-Center Hemodialysis Treatment 7119-13-89G60:40:26.000Z 6505-50-46H36:26:16.000Z BP Sitting (Pre-Dialysis) 150/80 mmHg BP Sitting (Post-Dialysis) 116/66 mmHg Concurrent Access: falseCentral Venous Catheter (CVC) Chest (Right) ArterialAV Fistula Forearm (Right) Venous BP Standing (Pre-Dialysis) 142/82 mmHg BP Standing (P ost-Dialysis) 128/70 mmHg Sitting Heart Rate Pre-Dialysis 95 BPM Sitting Heart Rate Post-Dialysis 86 BPM Standing Heart Rate Pre-Dialysis 112 BPM Standing Heart Rate Post-Dialysis 104 BPM Temperature Pre-Dialysis 98.5 degF Temperature Post -Dialysis 98.1 degF June 01, 2024 In-Center Hemodialysis Treatment 6820-90-81W86:40:57.000Z 8655-22-36Y81:13:52.000Z BP Sitting (Pre-Dialysis) 149/86 mmHg BP Sitting (Post-Dialysis) 153/73 mmHg Concurrent Access: falseCentral Venous Catheter (CVC) Chest (Right) ArterialAV Fistula Forearm (Right) Venous BP Standing (Pre-Dialysis) 153/80 mmHg BP Standing (P ost-Dialysis) 109/65 mmHg Sitting Heart Rate Pre-Dialysis 104 BPM Sitting Heart Rate Post-Dialysis 86 BPM Standing Heart Rate Pre-Dialysis 121 BPM Standing Heart Rate Post-Dialysis 100 BPM Temperature Pre-Dialysis 98.4 degF Temperature Post -Dialysis 97.6 degF May 30, 2024 In-Center Hemodialysis Treatment 0173-10-22M14:10:00.000Z 5768-53-48Q96:29:57.000Z BP Sitting (Pre-Dialysis) 131/77 mmHg BP Sitting (Post-Dialysis) 127/71 mmHg Concurrent Access: falseCentral Venous Catheter (CVC) Chest (Right) ArterialAV Fistula Forearm (Right) Venous BP Standing (Pre-Dialysis) 143/73 mmHg BP Standing (P ost-Dialysis) 120/78 mmHg Sitting Heart Rate Pre-Dialysis 80 BPM Sitting Heart Rate Post-Dialysis 83 BPM Standing Heart Rate Pre-Dialysis 89 BPM Standing Heart Rate Post-Dialysis 106 BPM Temperature Pre-Dialysis 98.2 degF Temperature Post -Dialysis 97.8 degF May 21, 2024 In-Center Hemodialysis Treatment 5126-47-33E11:13:00.000Z 6712-02-82W70:29:39.000Z BP Sitting (Pre-Dialysis) 164/86 mmHg BP Sitting (Post-Dialysis) 109/74 mmHg Concurrent Access: falseCentral Venous Catheter (CVC) Chest (Right) ArterialAV Fistula Forearm (Right) Venous BP Standing (Pre-Dialysis) 159/81 mmHg BP Standing (P ost-Dialysis) 114/74 mmHg Sitting Heart Rate Pre-Dialysis 102 BPM Sitting Heart Rate Post-Dialysis 96 BPM Standing Heart Rate Pre-Dialysis 113 BPM Standing Heart Rate Post-Dialysis 107 BPM Temperature Pre-Dialysis 98.2 degF Temperature Post -Dialysis 98 degF May 16, 2024 In-Center Hemodialysis Treatment 6150-34-24S84:12:00.000Z 4316-70-82Q44:14:11.000Z BP Sitting (Pre-Dialysis) 120/72 mmHg BP Sitting (Post-Dialysis) 122/65 mmHg Concurrent Access: falseCentral Venous Catheter (CVC) Chest (Right) ArterialAV Fistula Forearm (Right) Venous BP Standing (Pre-Dialysis) 112/70 mmHg BP Standing (P ost-Dialysis) 105/61 mmHg Sitting Heart Rate Pre-Dialysis 101 BPM Sitting Heart Rate Post-Dialysis 92 BPM Standing Heart Rate Pre-Dialysis 118 BPM Standing Heart Rate Post-Dialysis 118 BPM Temperature Pre-Dialysis 97.8 degF Temperature Post -Dialysis 98.2 degF May 14, 2024 In-Center Hemodialysis Treatment 8003-57-56R66:04:00.000Z 1044-09-16P43:35:35.000Z BP Sitting (Pre-Dialysis) 140/70 mmHg BP Sitting (Post-Dialysis) 129/78 mmHg Concurrent Access: falseCentral Venous Catheter (CVC) Chest (Right) ArterialAV Fistula Forearm (Right) Venous BP Standing (Pre-Dialysis) 142/79 mmHg BP Standing (P ost-Dialysis) 113/65 mmHg Sitting Heart Rate Pre-Dialysis 94 BPM Sitting Heart Rate Post-Dialysis 89 BPM Standing Heart Rate Pre-Dialysis 119 BPM Standing Heart Rate Post-Dialysis 111 BPM Temperature Pre-Dialysis 98 degF Temperature Post -Dialysis 97.5 degF May 11, 2024 In-Center Hemodialysis Treatment 5060-29-91Z29:52:00.000Z 7720-55-90A49:22:04.000Z BP Sitting (Pre-Dialysis) 144/77 mmHg BP Sitting (Post-Dialysis) 95/62 mmHg Concurrent Access: falseCentral Venous Catheter (CVC) Chest (Right) ArterialAV Fistula Forearm (Right) Venous BP Standing (Pre-Dialysis) 123/90 mmHg BP Standing (P ost-Dialysis) 102/74 mmHg Sitting Heart Rate Pre-Dialysis 93 BPM Sitting Heart Rate Post-Dialysis 107 BPM Standing Heart Rate Pre-Dialysis 110 BPM Standing Heart Rate Post-Dialysis 127 BPM Temperature Pre-Dialysis 98.2 degF Temperature Post -Dialysis 97.9 degF May 09, 2024 In-Center Hemodialysis Treatment 5314-38-55F75:19:00.000Z 6942-51-58Q54:30:29.000Z BP Sitting (Pre-Dialysis) 138/84 mmHg BP Sitting (Post-Dialysis) 110/64 mmHg Concurrent Access: falseCentral Venous Catheter (CVC) Chest (Right) ArterialAV Fistula Forearm (Right) Venous BP Standing (Pre-Dialysis) 146/81 mmHg BP Standing (P ost-Dialysis) 101/60 mmHg Sitting Heart Rate Pre-Dialysis 89 BPM Sitting Heart Rate Post-Dialysis 110 BPM Standing Heart Rate Pre-Dialysis 97 BPM Standing Heart Rate Post-Dialysis 125 BPM Temperature Pre-Dialysis 97.4 degF Temperature Post -Dialysis 97.7 degF May 04, 2024 In-Center Hemodialysis Treatment 6545-26-01S94:57:18.000Z 0384-27-01J95:25:07.000Z BP Sitting (Pre-Dialysis) 128/79 mmHg BP Sitting (Post-Dialysis) 109/70 mmHg Concurrent Access: falseCentral Venous Catheter (CVC) Chest (Right) ArterialAV Fistula Forearm (Right) Venous BP Standing (Pre-Dialysis) 153/77 mmHg BP Standing (P ost-Dialysis) 117/72 mmHg Sitting Heart Rate Pre-Dialysis 104 BPM Sitting Heart Rate Post-Dialysis 97 BPM Standing Heart Rate Pre-Dialysis 111 BPM Standing Heart Rate Post-Dialysis 124 BPM Temperature Pre-Dialysis 97.8 degF Temperature Post -Dialysis 98.2 degF May 02, 2024 In-Center Hemodialysis Treatment 7642-95-15A95:04:00.000Z 9414-77-08L62:31:00.000Z BP Sitting (Pre-Dialysis) 134/66 mmHg BP Sitting (Post-Dialysis) 121/71 mmHg Concurrent Access: falseCentral Venous Catheter (CVC) Chest (Right) ArterialAV Fistula Forearm (Right) Venous BP Standing (Pre-Dialysis) 146/68 mmHg BP Standing (P ost-Dialysis) 104/68 mmHg Sitting Heart Rate Pre-Dialysis 95 BPM Sitting Heart Rate Post-Dialysis 98 BPM Standing Heart Rate Pre-Dialysis 117 BPM Standing Heart Rate Post-Dialysis 125 BPM Temperature Pre-Dialysis 97.7 degF Temperature Post -Dialysis 97.6 degF April 30, 2024 In-Center Hemodialysis Treatment 9686-66-65M33:56:00.000Z 8292-17-66G51:28:05.000Z BP Sitting (Pre-Dialysis) 152/79 mmHg BP Sitting (Post-Dialysis) 114/67 mmHg Concurrent Access: falseCentral Venous Catheter (CVC) Chest (Right) ArterialAV Fistula Forearm (Right) Venous BP Standing (Pre-Dialysis) 141/84 mmHg BP Standing (P ost-Dialysis) 102/53 mmHg Sitting Heart Rate Pre-Dialysis 91 BPM Sitting Heart Rate Post-Dialysis 104 BPM Standing Heart Rate Pre-Dialysis 106 BPM Standing Heart Rate Post-Dialysis 128 BPM Temperature Pre-Dialysis 97.6 degF Temperature Post -Dialysis 97.9 degF April 27, 2024 In-Center Hemodialysis Treatment 0171-06-90I44:33:00.000Z 9916-75-36U35:29:25.000Z BP Sitting (Pre-Dialysis) 130/66 mmHg BP Sitting (Post-Dialysis) 120/66 mmHg Concurrent Access: falseCentral Venous Catheter (CVC) Chest (Right) ArterialAV Fistula Forearm (Right) Venous BP Standing (Pre-Dialysis) 142/71 mmHg BP Standing (P ost-Dialysis) 109/70 mmHg Sitting Heart Rate Pre-Dialysis 97 BPM Sitting Heart Rate Post-Dialysis 99 BPM Standing Heart Rate Pre-Dialysis 111 BPM Standing Heart Rate Post-Dialysis 135 BPM Temperature Pre-Dialysis 98.4 degF Temperature Post -Dialysis 98.3 degF April 25, 2024 In-Center Hemodialysis Treatment 4105-86-37W72:26:00.000Z 9554-39-85R97:19:07.000Z BP Sitting (Pre-Dialysis) 133/78 mmHg BP Sitting (Post-Dialysis) 127/65 mmHg Concurrent Access: falseCentral Venous Catheter (CVC) Chest (Right) ArterialAV Fistula Forearm (Right) Venous BP Standing (Pre-Dialysis) 165/90 mmHg BP Standing (P ost-Dialysis) 114/83 mmHg Sitting Heart Rate Pre-Dialysis 102 BPM Sitting Heart Rate Post-Dialysis 100 BPM Standing Heart Rate Pre-Dialysis 116 BPM Standing Heart Rate Post-Dialysis 118 BPM Temperature Pre-Dialysis 97.9 degF Temperature Post -Dialysis 97.8 degF April 23, 2024 In-Center Hemodialysis Treatment 1416-80-24A98:06:00.000Z 6154-93-58I33:35:39.000Z BP Sitting (Pre-Dialysis) 128/70 mmHg BP Sitting (Post-Dialysis) 139/82 mmHg Concurrent Access: falseCentral Venous Catheter (CVC) Chest (Right) ArterialAV Fistula Forearm (Right) Venous BP Standing (Pre-Dialysis) 143/79 mmHg BP Standing (P ost-Dialysis) 118/78 mmHg Sitting Heart Rate Pre-Dialysis 102 BPM Sitting Heart Rate Post-Dialysis 94 BPM Standing Heart Rate Pre-Dialysis 102 BPM Standing Heart Rate Post-Dialysis 129 BPM Temperature Pre-Dialysis 97.9 degF Temperature Post -Dialysis 97.6 degF April 20, 2024 In-Center Hemodialysis Treatment 6379-11-51H45:54:57.000Z 3733-46-25E68:31:37.000Z BP Sitting (Pre-Dialysis) 128/74 mmHg BP Sitting (Post-Dialysis) 112/70 mmHg Concurrent Access: falseCentral Venous Catheter (CVC) Chest (Right) ArterialAV Fistula Forearm (Right) Venous BP Standing (Pre-Dialysis) 137/75 mmHg BP Standing (P ost-Dialysis) 126/67 mmHg Sitting Heart Rate Pre-Dialysis 99 BPM Sitting Heart Rate Post-Dialysis 96 BPM Standing Heart Rate Pre-Dialysis 114 BPM Standing Heart Rate Post-Dialysis 115 BPM Temperature Pre-Dialysis 98.2 degF Temperature Post -Dialysis 97.6 degF April 18, 2024 In-Center Hemodialysis Treatment 0550-97-01W68:58:26.000Z 9672-77-71B57:34:41.000Z BP Sitting (Pre-Dialysis) 121/71 mmHg BP Sitting (Post-Dialysis) 104/63 mmHg Concurrent Access: falseCentral Venous Catheter (CVC) Chest (Right) ArterialAV Fistula Forearm (Right) Venous BP Standing (Pre-Dialysis) 121/74 mmHg BP Standing (P ost-Dialysis) 107/43 mmHg Sitting Heart Rate Pre-Dialysis 99 BPM Sitting Heart Rate Post-Dialysis 97 BPM Standing Heart Rate Pre-Dialysis 100 BPM Standing Heart Rate Post-Dialysis 116 BPM Temperature Pre-Dialysis 97.5 degF Temperature Post -Dialysis 98 degF April 16, 2024 In-Center Hemodialysis Treatment 4833-28-09O26:04:36.000Z 4087-39-38D46:13:21.000Z BP Sitting (Pre-Dialysis) 142/59 mmHg BP Sitting (Post-Dialysis) 137/82 mmHg Concurrent Access: falseCentral Venous Catheter (CVC) Chest (Right) ArterialAV Fistula Forearm (Right) Venous BP Standing (Pre-Dialysis) 138/93 mmHg BP Standing (P ost-Dialysis) 127/80 mmHg Sitting Heart Rate Pre-Dialysis 81 BPM Sitting Heart Rate Post-Dialysis 92 BPM Standing Heart Rate Pre-Dialysis 94 BPM Standing Heart Rate Post-Dialysis 89 BPM Temperature Pre-Dialysis 97.7 degF Temperature Post -Dialysis 97.5 degF April 11, 2024 In-Center Hemodialysis Treatment 5676-17-71E63:48:00.000Z 5257-04-55P60:20:23.000Z BP Sitting (Pre-Dialysis) 136/70 mmHg BP Sitting (Post-Dialysis) 133/80 mmHg Concurrent Access: falseCentral Venous Catheter (CVC) Chest (Right) Arterial BP Standing (Pre-Dialysis) 161/86 mmHg BP Standing (P ost-Dialysis) 145/78 mmHg Sitting Heart Rate Pre-Dialysis 74 BPM Sitting Heart Rate Post-Dialysis 93 BPM Standing Heart Rate Pre-Dialysis 108 BPM Standing Heart Rate Post-Dialysis 122 BPM Temperature Pre-Dialysis 98 degF Temperature Post -Dialysis 97.8 degF April 09, 2024 In-Center Hemodialysis Treatment [id number]:28:09.000Z 8928-11-98M75:27:44.000Z BP Sitting (Pre-Dialysis) 147/86 mmHg BP Sitting (Post-Dialysis) 117/60 mmHg Concurrent Access: falseCentral Venous Catheter (CVC) Chest (Right) Arterial BP Standing (Pre-Dialysis) 137/89 mmHg BP Standing (P ost-Dialysis) 124/70 mmHg Sitting Heart Rate Pre-Dialysis 99 BPM Sitting Heart Rate Post-Dialysis 114 BPM Standing Heart Rate Pre-Dialysis 113 BPM Standing Heart Rate Post-Dialysis 138 BPM Temperature Pre-Dialysis 98.2 degF Temperature Post -Dialysis 98.2 degF April 06, 2024 In-Center Hemodialysis Treatment 400 mL/min 800 mL/min Concurrent Access: false April 04, 2024 In-Center Hemodialysis Treatment 20 24 -0 - T1 5: 04 :2 0. 00 0Z 20 24 -0 - 17 T1 8: 34 :4 5. 00 0Z BP Sitting (Pre-Dial ysis) 115/76 mmHg BP Sitting (Post-Debra lysis) 119/67 mmHg Concurrent Access: falseCentral Venous Catheter (CVC) Chest (Right) Arterial BP Standing (Pre-Dialysis) 137/77 mmHg BP Standing (P ost-Dialysis) 123/71 mmHg Sitting Heart Rate Pre-Dialysis 91 BPM Sitting Heart Rate Post-Dialysis 115 BPM Standing Heart Rate Pre-Dialysis 98 BPM Standing Heart Rate Post-Dialysis 135 BPM Temperature Pre-Dialysis 98 degF Temperature Post -Dialysis 97.3 degF April 02, 2024 In-Center Hemodialysis Treatment [id number]:50:00.000Z 3980-44-37W06:30:11.000Z BP Sitting (Pre-Dialysis) 118/80 mmHg BP Sitting (Post-Dialysis) 121/81 mmHg Concurrent Access: falseCentral Venous Catheter (CVC) Chest (Right) Arterial BP Standing (Pre-Dialysis) 150/83 mmHg BP Standing (P ost-Dialysis) 103/84 mmHg Sitting Heart Rate Pre-Dialysis 84 BPM Sitting Heart Rate Post-Dialysis 103 BPM Standing Heart Rate Pre-Dialysis 104 BPM Standing Heart Rate Post-Dialysis 126 BPM Temperature Pre-Dialysis 98.1 degF Temperature Post -Dialysis 97.3 degF March 30, 2024 In-Center Hemodialysis Treatment 5751-88-13S52:18:00.000Z 5591-95-12U26:23:48.000Z BP Sitting (Pre-Dialysis) 134/70 mmHg BP Sitting (Post-Dialysis) 116/74 mmHg Concurrent Access: falseCentral Venous Catheter (CVC) Chest (Right) Arterial BP Standing (Pre-Dialysis) 112/84 mmHg BP Standing (P ost-Dialysis) 105/71 mmHg Sitting Heart Rate Pre-Dialysis 89 BPM Sitting Heart Rate Post-Dialysis 91 BPM Standing Heart Rate Pre-Dialysis 116 BPM Standing Heart Rate Post-Dialysis 110 BPM Temperature Pre-Dialysis 97.8 degF Temperature Post -Dialysis 97.2 degF March 28, 2024 In-Center Hemodialysis Treatment 400 mL/min 800 mL/min Concurrent Access: false March 26, 2024 In-Center Hemodialysis Treatment 20 24 -0 - 08 T1 5: 31 :1 1. 00 0Z 20 24 -0 - 08 T1 8: 57 :5 1. 00 0Z BP Sitting (Pre-Dial ysis) 137/87 mmHg BP Sitting (Post-Debra lysis) 135/67 mmHg Concurrent Access: falseCentral Venous Catheter (CVC) Chest (Right) Arterial BP Standing (Pre-Dialysis) 162/87 mmHg BP Standing (P ost-Dialysis) 133/76 mmHg Sitting Heart Rate Pre-Dialysis 84 BPM Sitting Heart Rate Post-Dialysis 98 BPM Standing Heart Rate Pre-Dialysis 99 BPM Standing Heart Rate Post-Dialysis 126 BPM Temperature Pre-Dialysis 98.1 degF Temperature Post -Dialysis 97.7 degF March 19, 2024 In-Center Hemodialysis Treatment 7584-00-16T65:00:00.000Z 3976-46-88Q76:30:00.000Z BP Sitting (Pre-Dialysis) 108/49 mmHg BP Sitting (Post-Dialysis) 108/72 mmHg Concurrent Access: falseCentral Venous Catheter (CVC) Chest (Right) Arterial Sitting Heart Rate Pre-Dialysis 85 BPM BP Standi ng (Post-Dialysis) 96/55 mmHg Temperature Pre-Dialysis 98 degF Sitting Heart Ra te Post-Dialysis 117 BPM Standing Heart Rate Post-Debra lysis 112 BPM Temperature Post-Dialysis 97 .3 degF March 16, 2024 In-Center Hemodialysis Treatment 6880-69-52V01:00:00.000Z 5916-77-49D28:32:44.000Z BP Sitting (Pre-Dialysis) 127/61 mmHg BP Sitting (Post-Dialysis) 120/79 mmHg Concurrent Access: falseCentral Venous Catheter (CVC) Chest (Right) Arterial BP Standing (Pre-Dialysis) 136/74 mmHg BP Standing (P ost-Dialysis) 102/65 mmHg Sitting Heart Rate Pre-Dialysis 99 BPM Sitting Heart Rate Post-Dialysis 94 BPM Standing Heart Rate Pre-Dialysis 115 BPM Standing Heart Rate Post-Dialysis 138 BPM Temperature Pre-Dialysis 98.6 degF Temperature Post -Dialysis 97.2 degF March 14, 2024 In-Center Hemodialysis Treatment 7744-03-31C72:04:00.000Z 0526-46-81Y82:38:02.000Z BP Sitting (Pre-Dialysis) 148/75 mmHg BP Sitting (Post-Dialysis) 98/55 mmHg Concurrent Access: falseCentral Venous Catheter (CVC) Chest (Right) Arterial BP Standing (Pre-Dialysis) 128/79 mmHg BP Standing (P ost-Dialysis) 100/64 mmHg Sitting Heart Rate Pre-Dialysis 99 BPM Sitting Heart Rate Post-Dialysis 128 BPM Standing Heart Rate Pre-Dialysis 114 BPM Standing Heart Rate Post-Dialysis 111 BPM Temperature Pre-Dialysis 97.1 degF Temperature Post -Dialysis 97.4 degF March 05, 2024 In-Center Hemodialysis Treatment 4939-96-92I33:29:14.000Z 1943-07-63J75:50:00.000Z BP Sitting (Pre-Dialysis) 139/77 mmHg BP Sitting (Post-Dialysis) 106/69 mmHg Concurrent Access: falseCentral Venous Catheter (CVC) Chest (Right) Arterial BP Standing (Pre-Dialysis) 103/79 mmHg BP Standing (P ost-Dialysis) 105/67 mmHg Sitting Heart Rate Pre-Dialysis 98 BPM Sitting Heart Rate Post-Dialysis 94 BPM Standing Heart Rate Pre-Dialysis 121 BPM Standing Heart Rate Post-Dialysis 111 BPM Temperature Pre-Dialysis 98.2 degF Temperature Post -Dialysis 98.2 degF March 02, 2024 In-Center Hemodialysis Treatment 2843-62-98E99:05:00.000Z 8588-14-31C10:42:24.000Z BP Sitting (Pre-Dialysis) 122/79 mmHg BP Sitting (Post-Dialysis) 120/70 mmHg Concurrent Access: falseCentral Venous Catheter (CVC) Chest (Right) Arterial BP Standing (Pre-Dialysis) 136/95 mmHg BP Standing (P ost-Dialysis) 113/75 mmHg Sitting Heart Rate Pre-Dialysis 99 BPM Sitting Heart Rate Post-Dialysis 94 BPM Standing Heart Rate Pre-Dialysis 118 BPM Standing Heart Rate Post-Dialysis 115 BPM Temperature Pre-Dialysis 97.3 degF Temperature Post -Dialysis 97.4 degF February 29, 2024 In-Center Hemodialysis Treatment 5525-51-50J29:01:00.000Z 9035-07-47K71:31:31.000Z BP Sitting (Pre-Dialysis) 130/71 mmHg BP Sitting (Post-Dialysis) 113/63 mmHg Concurrent Access: falseCentral Venous Catheter (CVC) Chest (Right) Arterial BP Standing (Pre-Dialysis) 144/78 mmHg BP Standing (P ost-Dialysis) 101/58 mmHg Sitting Heart Rate Pre-Dialysis 101 BPM Sitting Heart Rate Post-Dialysis 109 BPM Standing Heart Rate Pre-Dialysis 115 BPM Standing Heart Rate Post-Dialysis 135 BPM Temperature Pre-Dialysis 97.9 degF Temperature Post -Dialysis 98 degF February 27, 2024 In-Center Hemodialysis Treatment [id number]:00:00.000Z [id number]:31:00.000Z BP Sitting (Pre-Dialysis) 129/77 mmHg BP Sitting (Post-Dialysis) 103/49 mmHg Concurrent Access: falseCentral Venous Catheter (CVC) Chest (Right) Arterial BP Standing (Pre-Dialysis) 139/70 mmHg BP Standing (P ost-Dialysis) 111/73 mmHg Sitting Heart Rate Pre-Dialysis 79 BPM Sitting Heart Rate Post-Dialysis 120 BPM Standing Heart Rate Pre-Dialysis 105 BPM Standing Heart Rate Post-Dialysis 105 BPM Temperature Pre-Dialysis 98 degF Temperature Post -Dialysis 98.2 degF February 24, 2024 In-Center Hemodialysis Treatment [id number]:58:41.000Z [id number]:29:06.000Z BP Sitting (Pre-Dialysis) 135/80 mmHg BP Sitting (Post-Dialysis) 108/71 mmHg Concurrent Access: falseCentral Venous Catheter (CVC) Chest (Right) Arterial BP Standing (Pre-Dialysis) 132/80 mmHg BP Standing (P ost-Dialysis) 102/66 mmHg Sitting Heart Rate Pre-Dialysis 91 BPM Sitting Heart Rate Post-Dialysis 117 BPM Standing Heart Rate Pre-Dialysis 110 BPM Standing Heart Rate Post-Dialysis 89 BPM Temperature Pre-Dialysis 98.1 degF Temperature Post -Dialysis 98.5 degF February 22, 2024 In-Center Hemodialysis Treatment 5220-74-38H44:00:41.000Z 3917-09-79M74:22:46.000Z BP Sitting (Pre-Dialysis) 102/72 mmHg BP Sitting (Post-Dialysis) 117/64 mmHg Concurrent Access: falseCentral Venous Catheter (CVC) Chest (Right) Arterial BP Standing (Pre-Dialysis) 111/71 mmHg BP Standing (P ost-Dialysis) 107/69 mmHg Sitting Heart Rate Pre-Dialysis 67 BPM Sitting Heart Rate Post-Dialysis 93 BPM Standing Heart Rate Pre-Dialysis 116 BPM Standing Heart Rate Post-Dialysis 116 BPM Temperature Pre-Dialysis 98.2 degF Temperature Post -Dialysis 98.2 degF February 20, 2024 In-Center Hemodialysis Treatment [id number]:07:19.000Z 3322-08-36G04:41:26.000Z BP Sitting (Pre-Dialysis) 140/79 mmHg BP Sitting (Post-Dialysis) 111/69 mmHg Concurrent Access: falseCentral Venous Catheter (CVC) Chest (Right) Arterial BP Standing (Pre-Dialysis) 142/83 mmHg BP Standing (P ost-Dialysis) 102/72 mmHg Sitting Heart Rate Pre-Dialysis 101 BPM Sitting Heart Rate Post-Dialysis 89 BPM Standing Heart Rate Pre-Dialysis 113 BPM Standing Heart Rate Post-Dialysis 113 BPM Temperature Pre-Dialysis 98 degF Temperature Post -Dialysis 97.7 degF February 17, 2024 In-Center Hemodialysis Treatment 4815-03-79P84:49:00.000Z 5041-71-06T19:21:31.000Z BP Sitting (Pre-Dialysis) 136/76 mmHg BP Sitting (Post-Dialysis) 114/75 mmHg Concurrent Access: falseCentral Venous Catheter (CVC) Chest (Right) Arterial BP Standing (Pre-Dialysis) 148/85 mmHg Sitti ng Heart Rate Post-Dialysis 96 BPM Sitting Heart Rate Pre-Dialysis 104 BPM Temperatu re Post-Dialysis 97.7 degF Standing Heart Rate Pre-Dialysis 113 BPM Temperature Pre-Dialysis 98.2 degF February 15, 2024 In-Center Hemodialysis Treatment [id number]:32:00.000Z 9010-87-03P88:30:14.000Z BP Sitting (Pre-Dialysis) 142/81 mmHg BP Sitting (Post-Dialysis) 123/65 mmHg Concurrent Access: falseCentral Venous Catheter (CVC) Chest (Right) Arterial BP Standing (Pre-Dialysis) 129/80 mmHg BP Standing (P ost-Dialysis) 103/70 mmHg Sitting Heart Rate Pre-Dialysis 91 BPM Sitting Heart Rate Post-Dialysis 104 BPM Standing Heart Rate Pre-Dialysis 104 BPM Standing Heart Rate Post-Dialysis 127 BPM Temperature Pre-Dialysis 97.7 degF Temperature Post -Dialysis 97.6 degF February 13, 2024 In-Center Hemodialysis Treatment [id number]:50:02.000Z 1682-06-46Y43:22:32.000Z BP Sitting (Pre-Dialysis) 133/70 mmHg BP Sitting (Post-Dialysis) 123/71 mmHg Concurrent Access: falseCentral Venous Catheter (CVC) Chest (Right) Arterial BP Standing (Pre-Dialysis) 123/74 mmHg BP Standing (P ost-Dialysis) 123/66 mmHg Sitting Heart Rate Pre-Dialysis 91 BPM Sitting Heart Rate Post-Dialysis 96 BPM Standing Heart Rate Pre-Dialysis 111 BPM Standing Heart Rate Post-Dialysis 112 BPM Temperature Pre-Dialysis 97.7 degF Temperature Post -Dialysis 97.3 degF February 10, 2024 In-Center Hemodialysis Treatment [id number]:59:17.000Z 2518-49-64A05:40:57.000Z BP Sitting (Pre-Dialysis) 139/63 mmHg BP Sitting (Post-Dialysis) 127/58 mmHg Concurrent Access: falseCentral Venous Catheter (CVC) Chest (Right) Arterial BP Standing (Pre-Dialysis) 108/64 mmHg BP Standing (P ost-Dialysis) 142/56 mmHg Sitting Heart Rate Pre-Dialysis 93 BPM Sitting Heart Rate Post-Dialysis 97 BPM Standing Heart Rate Pre-Dialysis 114 BPM Standing Heart Rate Post-Dialysis 93 BPM Temperature Pre-Dialysis 98.2 degF Temperature Post -Dialysis 97.4 degF February 08, 2024 In-Center Hemodialysis Treatment 7744-83-91U50:25:04.000Z 8129-04-35X49:56:07.000Z BP Sitting (Pre-Dialysis) 153/83 mmHg BP Sitting (Post-Dialysis) 117/63 mmHg Concurrent Access: falseCentral Venous Catheter (CVC) Chest (Right) Arterial BP Standing (Pre-Dialysis) 136/83 mmHg BP Standing (P ost-Dialysis) 99/63 mmHg Sitting Heart Rate Pre-Dialysis 90 BPM Sitting Heart Rate Post-Dialysis 114 BPM Standing Heart Rate Pre-Dialysis 104 BPM Standing Heart Rate Post-Dialysis 131 BPM Temperature Pre-Dialysis 97.1 degF Temperature Post -Dialysis 98.6 degF February 06, 2024 In-Center Hemodialysis Treatment [id number]:57:00.000Z 9853-83-95U86:35:18.000Z BP Sitting (Pre-Dialysis) 154/78 mmHg BP Sitting (Post-Dialysis) 99/78 mmHg Concurrent Access: falseCentral Venous Catheter (CVC) Chest (Right) Arterial BP Standing (Pre-Dialysis) 140/84 mmHg BP Standing (P ost-Dialysis) 97/64 mmHg Sitting Heart Rate Pre-Dialysis 93 BPM Sitting Heart Rate Post-Dialysis 107 BPM Standing Heart Rate Pre-Dialysis 103 BPM Standing Heart Rate Post-Dialysis 128 BPM Temperature Pre-Dialysis 98.4 degF Temperature Post -Dialysis 98.8 degF February 03, 2024 In-Center Hemodialysis Treatment 7340-93-92O20:07:00.000Z 7130-82-04E92:31:38.000Z BP Sitting (Pre-Dialysis) 139/78 mmHg BP Sitting (Post-Dialysis) 125/83 mmHg Concurrent Access: falseCentral Venous Catheter (CVC) Chest (Right) Arterial BP Standing (Pre-Dialysis) 126/80 mmHg BP Standing (P ost-Dialysis) 114/66 mmHg Sitting Heart Rate Pre-Dialysis 94 BPM Sitting Heart Rate Post-Dialysis 94 BPM Standing Heart Rate Pre-Dialysis 101 BPM Standing Heart Rate Post-Dialysis 111 BPM Temperature Pre-Dialysis 97.3 degF Temperature Post -Dialysis 97.7 degF February 01, 2024 In-Center Hemodialysis Treatment [id number]:06:00.000Z 7903-10-67G18:32:43.000Z BP Sitting (Pre-Dialysis) 145/79 mmHg BP Sitting (Post-Dialysis) 114/64 mmHg Concurrent Access: falseCentral Venous Catheter (CVC) Chest (Right) Arterial BP Standing (Pre-Dialysis) 133/78 mmHg BP Standing (P ost-Dialysis) 121/79 mmHg Sitting Heart Rate Pre-Dialysis 90 BPM Sitting Heart Rate Post-Dialysis 113 BPM Standing Heart Rate Pre-Dialysis 101 BPM Standing Heart Rate Post-Dialysis 129 BPM Temperature Pre-Dialysis 97.5 degF Temperature Post -Dialysis 97.6 degF January 30, 2024 In-Center Hemodialysis Treatment [id number]:57:48.000Z 1684-90-51H32:28:13.000Z BP Sitting (Pre-Dialysis) 124/73 mmHg BP Sitting (Post-Dialysis) 89/51 mmHg Concurrent Access: falseCentral Venous Catheter (CVC) Chest (Right) Arterial BP Standing (Pre-Dialysis) 131/82 mmHg BP Standing (P ost-Dialysis) 100/64 mmHg Sitting Heart Rate Pre-Dialysis 94 BPM Sitting Heart Rate Post-Dialysis 111 BPM Standing Heart Rate Pre-Dialysis 109 BPM Standing Heart Rate Post-Dialysis 121 BPM Temperature Pre-Dialysis 97.7 degF Temperature Post -Dialysis 97.9 degF January 27, 2024 In-Center Hemodialysis Treatment [id number]:11:53.000Z 6484-69-82Q72:41:53.000Z BP Sitting (Pre-Dialysis) 127/75 mmHg BP Sitting (Post-Dialysis) 106/71 mmHg Concurrent Access: falseCentral Venous Catheter (CVC) Chest (Right) Arterial BP Standing (Pre-Dialysis) 132/75 mmHg BP Standing (P ost-Dialysis) 101/64 mmHg Sitting Heart Rate Pre-Dialysis 91 BPM Sitting Heart Rate Post-Dialysis 98 BPM Standing Heart Rate Pre-Dialysis 105 BPM Standing Heart Rate Post-Dialysis 123 BPM Temperature Pre-Dialysis 98 degF Temperature Post -Dialysis 97.7 degF January 25, 2024 In-Center Hemodialysis Treatment [id number]:25:00.000Z 6198-36-12L76:26:33.000Z BP Sitting (Pre-Dialysis) 134/72 mmHg BP Sitting (Post-Dialysis) 125/88 mmHg Concurrent Access: falseCentral Venous Catheter (CVC) Chest (Right) Arterial BP Standing (Pre-Dialysis) 146/87 mmHg BP Standing (P ost-Dialysis) 123/77 mmHg Sitting Heart Rate Pre-Dialysis 92 BPM Sitting Heart Rate Post-Dialysis 95 BPM Standing Heart Rate Pre-Dialysis 105 BPM Standing Heart Rate Post-Dialysis 118 BPM Temperature Pre-Dialysis 98.2 degF Temperature Post -Dialysis 98.2 degF January 23, 2024 In-Center Hemodialysis Treatment 2391-44-01W35:27:16.000Z [id number]:36:51.000Z BP Sitting (Pre-Dialysis) 140/78 mmHg BP Sitting (Post-Dialysis) 128/79 mmHg Concurrent Access: falseCentral Venous Catheter (CVC) Chest (Right) Arterial BP Standing (Pre-Dialysis) 138/85 mmHg Sitti ng Heart Rate Post-Dialysis 89 BPM Sitting Heart Rate Pre-Dialysis 93 BPM Temperatu re Post-Dialysis 98.3 degF Standing Heart Rate Pre-Dialysis 108 BPM Temperature Pre-Dialysis 97.7 degF January 20, 2024 In-Center Hemodialysis Treatment 4144-28-40Y01:07:00.000Z 4614-21-55M26:37:28.000Z BP Sitting (Pre-Dialysis) 133/78 mmHg BP Sitting (Post-Dialysis) 91/45 mmHg Concurrent Access: falseCentral Venous Catheter (CVC) Chest (Right) Arterial BP Standing (Pre-Dialysis) 136/81 mmHg BP Standing (P ost-Dialysis) 103/65 mmHg Sitting Heart Rate Pre-Dialysis 101 BPM Sitting Heart Rate Post-Dialysis 129 BPM Standing Heart Rate Pre-Dialysis 104 BPM Standing Heart Rate Post-Dialysis 129 BPM Temperature Pre-Dialysis 97.6 degF Temperature Post -Dialysis 97.3 degF January 18, 2024 In-Center Hemodialysis Treatment 5031-11-16L20:55:26.000Z 7632-91-87J73:25:51.000Z BP Sitting (Pre-Dialysis) 161/83 mmHg BP Sitting (Post-Dialysis) 109/69 mmHg Concurrent Access: falseCentral Venous Catheter (CVC) Chest (Right) Arterial BP Standing (Pre-Dialysis) 151/85 mmHg Sitti ng Heart Rate Post-Dialysis 93 BPM Sitting Heart Rate Pre-Dialysis 94 BPM Temperatu re Post-Dialysis 97.6 degF Standing Heart Rate Pre-Dialysis 106 BPM Temperature Pre-Dialysis 98.4 degF January 16, 2024 In-Center Hemodialysis Treatment 6707-74-03R05:38:00.000Z 1822-76-14O97:12:22.000Z BP Sitting (Pre-Dialysis) 143/85 mmHg BP Sitting (Post-Dialysis) 110/83 mmHg Concurrent Access: falseCentral Venous Catheter (CVC) Chest (Right) Arterial BP Standing (Pre-Dialysis) 146/83 mmHg BP Standing (P ost-Dialysis) 125/87 mmHg Sitting Heart Rate Pre-Dialysis 90 BPM Sitting Heart Rate Post-Dialysis 101 BPM Standing Heart Rate Pre-Dialysis 104 BPM Standing Heart Rate Post-Dialysis 124 BPM Temperature Pre-Dialysis 98.4 degF Temperature Post -Dialysis 98.7 degF January 13, 2024 In-Center Hemodialysis Treatment 2528-74-74G19:08:20.000Z 9463-77-08Z50:38:20.000Z BP Sitting (Pre-Dialysis) 126/76 mmHg BP Sitting (Post-Dialysis) 108/74 mmHg Concurrent Access: falseCentral Venous Catheter (CVC) Chest (Right) Arterial BP Standing (Pre-Dialysis) 156/74 mmHg BP Standing (P ost-Dialysis) 132/78 mmHg Sitting Heart Rate Pre-Dialysis 94 BPM Sitting Heart Rate Post-Dialysis 96 BPM Standing Heart Rate Pre-Dialysis 111 BPM Standing Heart Rate Post-Dialysis 125 BPM Temperature Pre-Dialysis 98.2 degF Temperature Post -Dialysis 98 degF January 11, 2024 In-Center Hemodialysis Treatment 1051-07-74M91:46:01.000Z 9746-05-02Z59:21:27.000Z BP Sitting (Pre-Dialysis) 141/77 mmHg BP Sitting (Post-Dialysis) 124/77 mmHg Concurrent Access: falseCentral Venous Catheter (CVC) Chest (Right) Arterial BP Standing (Pre-Dialysis) 121/70 mmHg BP Standing (P ost-Dialysis) 122/67 mmHg Sitting Heart Rate Pre-Dialysis 94 BPM Sitting Heart Rate Post-Dialysis 107 BPM Standing Heart Rate Pre-Dialysis 105 BPM Standing Heart Rate Post-Dialysis 129 BPM Temperature Pre-Dialysis 97.7 degF Temperature Post -Dialysis 97.3 degF January 09, 2024 In-Center Hemodialysis Treatment [id number]:13:00.000Z 6028-06-21I32:46:06.000Z BP Sitting (Pre-Dialysis) 158/90 mmHg BP Sitting (Post-Dialysis) 130/86 mmHg Concurrent Access: falseCentral Venous Catheter (CVC) Chest (Right) Arterial BP Standing (Pre-Dialysis) 147/94 mmHg BP Standing (P ost-Dialysis) 111/57 mmHg Sitting Heart Rate Pre-Dialysis 92 BPM Sitting Heart Rate Post-Dialysis 108 BPM Standing Heart Rate Pre-Dialysis 117 BPM Standing Heart Rate Post-Dialysis 131 BPM Temperature Pre-Dialysis 97.7 degF Temperature Post -Dialysis 97 degF January 06, 2024 In-Center Hemodialysis Treatment 8975-65-52Y52:07:23.000Z 4738-06-35S49:37:48.000Z BP Sitting (Pre-Dialysis) 144/80 mmHg BP Sitting (Post-Dialysis) 155/84 mmHg Concurrent Access: falseCentral Venous Catheter (CVC) Chest (Right) Arterial BP Standing (Pre-Dialysis) 147/81 mmHg BP Standing (P ost-Dialysis) 134/61 mmHg Sitting Heart Rate Pre-Dialysis 97 BPM Sitting Heart Rate Post-Dialysis 102 BPM Standing Heart Rate Pre-Dialysis 114 BPM Standing Heart Rate Post-Dialysis 130 BPM Temperature Pre-Dialysis 98.2 degF Temperature Post -Dialysis 98.2 degF January 04, 2024 In-Center Hemodialysis Treatment 4944-48-40N96:20:00.000Z 7723-08-26F00:59:18.000Z BP Sitting (Pre-Dialysis) 138/82 mmHg BP Sitting (Post-Dialysis) 114/80 mmHg Concurrent Access: falseCentral Venous Catheter (CVC) Chest (Right) Arterial BP Standing (Pre-Dialysis) 117/81 mmHg BP Standing (P ost-Dialysis) 123/68 mmHg Sitting Heart Rate Pre-Dialysis 100 BPM Sitting Heart Rate Post-Dialysis 98 BPM Standing Heart Rate Pre-Dialysis 110 BPM Standing Heart Rate Post-Dialysis 112 BPM Temperature Pre-Dialysis 98 degF Temperature Post -Dialysis 97.3 degF January 02, 2024 In-Center Hemodialysis Treatment 4630-23-14F07:18:00.000Z 4003-47-93L45:57:50.000Z BP Sitting (Pre-Dialysis) 129/54 mmHg BP Sitting (Post-Dialysis) 117/81 mmHg Concurrent Access: falseCentral Venous Catheter (CVC) Chest (Right) Arterial BP Standing (Pre-Dialysis) 143/81 mmHg BP Standing (P ost-Dialysis) 108/71 mmHg Sitting Heart Rate Pre-Dialysis 82 BPM Sitting Heart Rate Post-Dialysis 96 BPM Standing Heart Rate Pre-Dialysis 92 BPM Standing Heart Rate Post-Dialysis 127 BPM Temperature Pre-Dialysis 98.2 degF Temperature Post -Dialysis 97.1 degF December 30, 2023 In-Center Hemodialysis Treatment 9317-88-95Q59:30:42.000Z 2603-16-26Y72:00:17.000Z BP Sitting (Pre-Dialysis) 141/83 mmHg BP Sitting (Post-Dialysis) 120/85 mmHg Concurrent Access: falseCentral Venous Catheter (CVC) Chest (Right) Arterial BP Standing (Pre-Dialysis) 140/86 mmHg BP Standing (P ost-Dialysis) 110/71 mmHg Sitting Heart Rate Pre-Dialysis 93 BPM Sitting Heart Rate Post-Dialysis 104 BPM Standing Heart Rate Pre-Dialysis 105 BPM Standing Heart Rate Post-Dialysis 115 BPM Temperature Pre-Dialysis 98.2 degF Temperature Post -Dialysis 97.4 degF December 28, 2023 In-Center Hemodialysis Treatment 8411-51-51K51:22:00.000Z 0266-68-72G88:56:26.000Z BP Sitting (Pre-Dialysis) 141/77 mmHg BP Sitting (Post-Dialysis) 116/67 mmHg Concurrent Access: falseCentral Venous Catheter (CVC) Chest (Right) Arterial BP Standing (Pre-Dialysis) 137/86 mmHg BP Standing (P ost-Dialysis) 117/79 mmHg Sitting Heart Rate Pre-Dialysis 101 BPM Sitting Heart Rate Post-Dialysis 111 BPM Standing Heart Rate Pre-Dialysis 117 BPM Standing Heart Rate Post-Dialysis 118 BPM Temperature Pre-Dialysis 98.2 degF December 26, 2023 In-Center Hemodialysis Treatment 7396-67-94G04:25:21.000Z 9922-73-07J09:54:56.000Z BP Sitting (Pre-Dialysis) 149/88 mmHg BP Sitting (Post-Dialysis) 150/85 mmHg Concurrent Access: falseCentral Venous Catheter (CVC) Chest (Right) Arterial BP Standing (Pre-Dialysis) 151/97 mmHg BP Standing (P ost-Dialysis) 132/90 mmHg Sitting Heart Rate Pre-Dialysis 94 BPM Sitting Heart Rate Post-Dialysis 92 BPM Standing Heart Rate Pre-Dialysis 105 BPM Standing Heart Rate Post-Dialysis 118 BPM Temperature Pre-Dialysis 98.1 degF Temperature Post -Dialysis 98.1 degF December 23, 2023 In-Center Hemodialysis Treatment [id number]:47:42.000Z 0421-84-14J22:18:07.000Z BP Sitting (Pre-Dialysis) 173/101 mmHg BP Sitting (Post-Dialysis) 148/93 mmHg Concurrent Access: falseCentral Venous Catheter (CVC) Chest (Right) Arterial BP Standing (Pre-Dialysis) 162/96 mmHg BP Standing (P ost-Dialysis) 134/89 mmHg Sitting Heart Rate Pre-Dialysis 83 BPM Sitting Heart Rate Post-Dialysis 103 BPM Standing Heart Rate Pre-Dialysis 101 BPM Standing Heart Rate Post-Dialysis 127 BPM Temperature Pre-Dialysis 98.1 degF Temperature Post -Dialysis 98 degF December 21, 2023 In-Center Hemodialysis Treatment 4502-58-49W26:26:01.000Z 1997-46-88I02:11:01.000Z BP Sitting (Pre-Dialysis) 145/95 mmHg BP Sitting (Post-Dialysis) 138/82 mmHg Concurrent Access: falseCentral Venous Catheter (CVC) Chest (Right) Arterial BP Standing (Pre-Dialysis) 151/87 mmHg BP Standing (P ost-Dialysis) 139/79 mmHg Sitting Heart Rate Pre-Dialysis 90 BPM Sitting Heart Rate Post-Dialysis 81 BPM Standing Heart Rate Pre-Dialysis 104 BPM Standing Heart Rate Post-Dialysis 114 BPM Temperature Pre-Dialysis 97.8 degF Temperature Post -Dialysis 97.7 degF December 19, 2023 In-Center Hemodialysis Treatment 1108-71-70K99:42:00.000Z 2503-59-48Z66:13:48.000Z BP Sitting (Pre-Dialysis) 149/96 mmHg BP Sitting (Post-Dialysis) 134/85 mmHg Concurrent Access: falseCentral Venous Catheter (CVC) Chest (Right) Arterial BP Standing (Pre-Dialysis) 162/99 mmHg BP Standing (P ost-Dialysis) 140/84 mmHg Sitting Heart Rate Pre-Dialysis 93 BPM Sitting Heart Rate Post-Dialysis 102 BPM Standing Heart Rate Pre-Dialysis 102 BPM Standing Heart Rate Post-Dialysis 134 BPM Temperature Pre-Dialysis 97.5 degF Temperature Post -Dialysis 98.5 degF December 16, 2023 In-Center Hemodialysis Treatment 4970-51-60N30:34:00.000Z 3905-34-52R47:05:39.000Z BP Sitting (Pre-Dialysis) 159/96 mmHg BP Sitting (Post-Dialysis) 148/93 mmHg Concurrent Access: falseCentral Venous Catheter (CVC) Chest (Right) Arterial BP Standing (Pre-Dialysis) 171/90 mmHg BP Standing (P ost-Dialysis) 119/84 mmHg Sitting Heart Rate Pre-Dialysis 90 BPM Sitting Heart Rate Post-Dialysis 97 BPM Standing Heart Rate Pre-Dialysis 100 BPM Standing Heart Rate Post-Dialysis 128 BPM Temperature Pre-Dialysis 98.3 degF Temperature Post -Dialysis 98.3 degF December 14, 2023 In-Center Hemodialysis Treatment 4100-26-76O27:34:00.000Z 7483-84-12N89:12:06.000Z BP Sitting (Pre-Dialysis) 160/95 mmHg BP Sitting (Post-Dialysis) 180/96 mmHg Concurrent Access: falseCentral Venous Catheter (CVC) Chest (Right) Arterial Sitting Heart Rate Pre-Dialysis 91 BPM BP Standing (Post-Dialysis) 178/84 mmHg Temperature Pre-Dialysis 98.7 degF Sitting Heart Ra te Post-Dialysis 97 BPM Standing Heart Rate Post-Debra lysis 100 BPM Temperature Post-Dialysis 97 .8 degF December 12, 2023 In-Center Hemodialysis Treatment [id number]:17:52.000Z 0654-30-35E42:47:27.000Z BP Sitting (Pre-Dialysis) 158/89 mmHg BP Sitting (Post-Dialysis) 133/85 mmHg Concurrent Access: falseCentral Venous Catheter (CVC) Chest (Right) Arterial BP Standing (Pre-Dialysis) 185/93 mmHg BP Standing (P ost-Dialysis) 142/62 mmHg Sitting Heart Rate Pre-Dialysis 98 BPM Sitting Heart Rate Post-Dialysis 112 BPM Standing Heart Rate Pre-Dialysis 119 BPM Standing Heart Rate Post-Dialysis 100 BPM Temperature Pre-Dialysis 98.4 degF Temperature Post -Dialysis 97.8 degF December 07, 2023 In-Center Hemodialysis Treatment [id number]:17:54.000Z 0531-88-58T03:50:49.000Z BP Sitting (Pre-Dialysis) 171/88 mmHg BP Sitting (Post-Dialysis) 150/89 mmHg Concurrent Access: falseCentral Venous Catheter (CVC) Chest (Right) Arterial BP Standing (Pre-Dialysis) 146/79 mmHg BP Standing (P ost-Dialysis) 139/85 mmHg Sitting Heart Rate Pre-Dialysis 98 BPM Sitting Heart Rate Post-Dialysis 99 BPM Standing Heart Rate Pre-Dialysis 112 BPM Standing Heart Rate Post-Dialysis 98 BPM Temperature Pre-Dialysis 98.4 degF Temperature Post -Dialysis 98.7 degF December 05, 2023 In-Center Hemodialysis Treatment 2447-36-01Q40:06:30.000Z 5163-60-70Y88:36:05.000Z BP Sitting (Pre-Dialysis) 145/90 mmHg BP Sitting (Post-Dialysis) 132/93 mmHg Concurrent Access: falseCentral Venous Catheter (CVC) Chest (Right) Arterial Sitting Heart Rate Pre-Dialysis 107 BPM BP Standing (Post-Dialysis) 133/84 mmHg Temperature Pre-Dialysis 98.8 degF Sitting Heart Ra te Post-Dialysis 134 BPM Standing Heart Rate Post-Debra lysis 125 BPM Temperature Post-Dialysis 98 .3 degF December 02, 2023 In-Center Hemodialysis Treatment 3603-90-27O07:52:17.000Z 8257-83-05G54:22:17.000Z BP Sitting (Pre-Dialysis) 140/88 mmHg BP Sitting (Post-Dialysis) 119/80 mmHg Concurrent Access: falseCentral Venous Catheter (CVC) Chest (Right) Arterial BP Standing (Pre-Dialysis) 127/84 mmHg BP Standing (P ost-Dialysis) 112/68 mmHg Sitting Heart Rate Pre-Dialysis 93 BPM Sitting Heart Rate Post-Dialysis 102 BPM Standing Heart Rate Pre-Dialysis 107 BPM Standing Heart Rate Post-Dialysis 106 BPM Temperature Pre-Dialysis 97.9 degF Temperature Post -Dialysis 98.1 degF November 30, 2023 In-Center Hemodialysis Treatment [id number]:08:34.000Z 3061-23-69B66:38:59.000Z BP Sitting (Pre-Dialysis) 145/94 mmHg BP Sitting (Post-Dialysis) 148/82 mmHg Concurrent Access: falseCentral Venous Catheter (CVC) Chest (Right) Arterial BP Standing (Pre-Dialysis) 149/90 mmHg BP Standing (P ost-Dialysis) 158/94 mmHg Sitting Heart Rate Pre-Dialysis 109 BPM Sitting Heart Rate Post-Dialysis 107 BPM Standing Heart Rate Pre-Dialysis 140 BPM Standing Heart Rate Post-Dialysis 138 BPM Temperature Pre-Dialysis 98.1 degF Temperature Post -Dialysis 98.1 degF Encounters No encounter information to report Immunizations Ordered Immunization Name Filled Immunization Name Date Status Comments Refusal Reason TST-PPD intradermal 2024-05-09 15:13:00 Hep B, adult 2024-04-11 18:32:17 Hep B, adult 2023-12-07 20:35:13 TST-PPD intradermal 2023-12-05 20:48:47
[2025-08-15 12:16] LABS: Immature Granulocyte Percent A 0.5 % (0-0.5); Lymphocytes Absolute Auto 0.83 K/mm3 (0.9-3.2); Mean Corpuscular HGB Conc 33.0 g/dl (32-36); Mean Corpuscular Hemoglobin 31.9 pg (26-34); Mean Corpuscular Volume 96.8 fl (80-100); Nucleated Red Blood Cells Absolute Auto 0.000 K/mm3 (0.0-0.012); Nucleated Red Blood Cells Perc 0.0 % (0.0-0.2); Platelet Count Result 154 k/mm3 (150-375); Red Blood Count 1.85 M/mm3 (4.6-6.20); White Blood Count 11.2 K/mm3 (4.5-10.0)
[2025-08-15 12:20] LABS: Hematocrit 17.9 % (42.0-52.0); Hemoglobin 5.9 g/dL (14.0-18.0)
[2025-08-15 12:27] LABS: INR 1.4; Prothrombin Time 16.5 Seconds (11.1-14.7)
[2025-08-15 12:28] LABS: Partial Thromboplastin Time 34.0 Seconds (22.3-36.8)
[2025-08-15] MEDS: IPRATROPIUM 0.5 MG/ALBUTEROL SULFATE 2.5 MG (BASE) AMPUL.NEB 3 ML INHALATION (12:38)
[2025-08-15 12:44] LABS: Alanine Aminotransferase 18 U/L (6-50); Albumin Level 4.1 g/dL (3.5-5.1); Alkaline Phosphatase 63 U/L (38-126); Anion Gap 18 mmol/L (4-12); Aspartate Amino Transferase 14 U/L (17-59); Bilirubin,Total 0.4 mg/dL (0.2-1.3); Calcium 8.5 mg/dL (8.4-10.2); Carbon Dioxide 10 mmol/L (22-30); Chloride 110 mmol/L (98-107); Estimated CRCL calculation 4 ml/min; Estimated Glomerular Filt Rate 3; Glucose 134 mg/dL (65-110); Lipase 135 U/L (23-300); NT Pro B Type Natriuretic Pept > 30000 pg/mL (19.9-100); Potassium 5.0 mmol/L (3.4-5.0); Sodium 138 mmol/L (137-145); Total Protein 6.9 g/dL (6.3-8.2); Troponin I 0.063 ng/mL (0.000-0.034)
[2025-08-15 12:45] LABS: Blood Urea Nitrogen 126 mg/dL (9-20)
--- NOTE | 2025-08-15 13:29 | ED_ITS ---
HPI - Chest Pain General Chief Complaint: Chest Pain Stated Complaint: CP History of Present Illness HPI narrative: Patient presents here with some chest pain, shortness of breath on ambulation, he is also a dialysis patient and has not had dialysis in almost 3 months. Related Data Home Medications ?Medication ?Instructions ?Recorded ?Confirmed ?Last Taken ?Type acetaminophen 500 mg tablet 500 mg PO QID PRN Pain 08/1112/09/23 Unknown History nicotine 21 mg/24 hr daily 1 patch topical DAILY 12/0812/09/23 Unknown History transdermal patch Allergies Allergy/AdvReac Type Severity Reaction Status Date / Time No Known Allergies Allergy Verified 08/15/25 15:14 Review of Systems 2 Review of Systems: All systems reviewed & are unremarkable except as noted in HPI and below PMFSH Past Medical History Medical History Chronic kidney disease Bipolar disorder Tobacco dependence Benign prostate hyperplasia COPD with emphysema Skin cancer Surgical History Surgical History History of tonsillectomy Status post surgical removal of malignant neoplasm of skin From his face and now has a growth on his nose. Family History Family History Other Family history non-contributory Social History Social History Social History: Surrogate medical decision maker: Ari Giron, daughter. Code status: Full code. Smoking packs per day: 1 Smoking cigarettes per day: 20.0 Years smoked: 49 Smoking pack-years: 49.00 Smoking status: Current every day smoker Tobacco type: cigarettes Second hand tobacco smoke exposure: Yes Alcohol intake: former Substance use: never Substance use type: does not use Lack of Transportation: No Lack of Food: Sometimes True Current Housing: I Have Housing Concerned About Future Housing: No Difficulty Paying Gas/Electric Bills: No Difficulty Paying for Meds: No Currently Unemployed: No Education: High School Diploma/GED Difficulty w/ Childcare or Family Care: No Additional living arrangements comments: Lives in [place]. Additional occupation/education comments: Works at a local [employer]. Spiritual care concerns: No Exam 2 Narrative: EXAMINATION OF ORGAN SYSTEMS/BODY AREAS: Constitutional: Vital signs per nursing GENERAL:[No acute distress, non-toxic appearing.] HEAD: Normal with no signs of head trauma. EYES: EOMI ENT: Hearing grossly intact LUNGS: Nonlabored breathing. Slightly diminished lung sounds HEART: [Regular rate and rhythm] ABD: [Soft], [nontender to palpation] EXT: Normal range of motion SKIN: [No rashes or lesions.] NEURO: [Alert and oriented x 3. No gross focal sensory or strength deficits.] PSYCH: Normal affect Course Vital Signs Vital signs: Vital Signs Pulse Rate 102 H 08/15/25 11:57 Respiratory Rate 19 08/15/25 11:57 Blood Pressure 149/86 H 08/15/25 11:57 Temperature 98.1 F 08/15/25 14:25 Pulse Rate 93 08/15/25 14:25 Respiratory Rate 20 08/15/25 14:25 Blood Pressure 151/78 H 08/15/25 14:25 Pulse Oximetry 98 08/15/25 14:25 MDM - Chest Pain MDM Narrative Medical decision making narrative: Patient presents here with 1-2 weeks now of increased shortness of breath on exertion, some slight chest pain, and missed dialysis for months. It does also have COPD. On exam he has some diminished lung sounds, otherwise well appearing, speaking full sentences. Resting comfortably. For cardiac workup obtain, 1 DuoNeb given, labs are concerning for hemoglobin of 5.9 for which I will transfuse 2 units, and BUN of 126 with creatinine of 16.7, I suspect the uremia may be also contributing to his chest discomfort, he does also have a bicarb of 10, thankfully his potassium is 5 at this point I do feel he will require admission for dialysis, transfusion, stabilization. Chest x-ray and BNP consistent with very minimal amount of volume overload, he is not requiring oxygen and has no respiratory distress at rest. I discussed this with nephrology with plan for dialysis today, discussed with hospitalist for admission. EKG - 12-Lead: Performed at 1206. Interpreted by me. [Sinus rhythm]. Rate 98. [Normal] axis. SD-interval 142. QRS duration 77. QTc 427. [No ST segment elevation or depression]. [T-wave normal]. Impression: No EKG evidence of acute ischemia or dysrhythmia. \updated patient was agreeable to plan Lab Data 08/15/25 12:08 08/15/25 12:08 Labs: Lab Results 08/15/25 08/15/25 08/15/25 Range/Units 12:08 12:08 12:41 WBC 11.2 H (4.5-10.0) K/mm3 RBC 1.85 L (4.6-6.20) M/mm3 Hgb 5.9 L* D (14.0-18.0) g/dL Hct 17.9 L* (42.0-52.0) % MCV 96.8 (80-100) fl MCH 31.9 (26-34) pg MCHC 33.0 (32-36) g/dl RDW 14.8 H (11.5-14.5) % Plt Count 154 (150-375) k/mm3 MPV 10.8 H (7.4-10.4) fl Immature Gran % (Auto) 0.5 (0-0.5) % Neut % (Auto) 82.5 H (45.5-73.1) % Lymph % (Auto) 7.4 L (18.3-44.2) % [place] % (Auto) 7.1 (2.6-8.5) % Eos % (Auto) 2.2 (0-4.4) % Baso % (Auto) 0.3 (0.2-1.2) % Lymph # (Auto) 0.83 L (0.9-3.2) K/mm3 [place] # (Auto) 0.8 H (0.1-0.6) K/mm3 Eos # (Auto) 0.2 (0-0.3) K/mm3 Baso # (Auto) 0.0 (0.0-0.1) K/mm3 Abs Immat Gran (auto) 0.06 H (0.00-0.031) K/mm3 Absolute Neuts (auto) 9.2 H (1.3-6.7) K/mm3 Absolute Nucleated RBC 0.000 (0.0-0.012) K/mm3 Nucleated RBC % 0.0 (0.0-0.2) % PT 16.5 H (11.1-14.7) Seconds INR 1.4 APTT 34.0 (22.3-36.8) Seconds Sodium 138 (137-145) mmol/L Potassium 5.0 (3.4-5.0) mmol/L Chloride 110 H (98-107) mmol/L Carbon Dioxide 10 L (22-30) mmol/L Anion Gap 18 H (4-12) mmol/L BUN 126 H* D (9-20) mg/dL Creatinine 16.68 H (0.7-1.3) mg/dL Estim Creat Clear Calc 4 ml/min Estimated GFR 3 L (59 - ) Glucose 134 H (65-110) mg/dL Calcium 8.5 (8.4-10.2) mg/dL Total Bilirubin 0.4 (0.2-1.3) mg/dL AST 14 L (17-59) U/L ALT 18 (6-50) U/L Alkaline Phosphatase 63 (38-126) U/L Troponin I 0.063 H* (0.000-0.034) ng/mL NT-Pro-B Natriuret Pep > 67832 H Cancelled (19.9-100) pg/mL Total Protein 6.9 (6.3-8.2) g/dL Albumin 4.1 (3.5-5.1) g/dL Lipase 135 (23-300) U/L Hep Bs Antigen Negative (Negative) Hep Bs Antibody Negative Blood Type O Positive Antibody Screen Negative Crossmatch See Detail Critical Care Time Critical Care Time Critical Care Time: Yes Total Critical Care Time: 31 Discharge Plan Discharge Clinical Impression: Anemia, Uremia Patient Disposition: Still a Patient Condition: Stable
--- NOTE | 2025-08-15 14:04 | P.HP_ITS ---
H&P: HPI History of Present Illness Date/Time: 08/15/25 14:04 Chief Complaint: Chest pain Narrative: 65-year-old male past medical history end-stage renal disease on hemodialysis, bipolar, COPD and skin cancer presents the hospital for chest pain. Patient states that he is homeless and he has not had dialysis in about 3 months. Patient states that he has chest pain shortness of breath on ambulation. Patient seen after dialysis. Patient just complains of severe fatigue, denies nausea denies shortness of breath. Patient has no other complaints at this time. Lab work in the ED shows leukocytosis 11.2, hemoglobin of 5.9, INR 1.4, chloride of 110, carbon dioxide 10, anion gap 18, BUN of 126, creatinine of 16.68 and GFR 3, glucose of 134, AST of 14, troponin of 0.063, BNP over 30,000, chest x-ray shows Interstitial pulmonary edema, pneumonitis, or less likely chronic interstitial lung disease. Review of Systems Review of Systems: 12 systems were reviewed and are negative except for as per HPI. [facility] Past Medical History Medical History Chronic kidney disease Bipolar disorder Tobacco dependence Benign prostate hyperplasia COPD with emphysema Skin cancer Surgical History Surgical History History of tonsillectomy Status post surgical removal of malignant neoplasm of skin From his face and now has a growth on his nose. Family History Family History (Updated 08/15/25 @ 15:20 by Raquel Ortiz RN) Father Diabetes mellitus Acute myocardial infarction Hypertension Mother Cerebrovascular accident Hypertension Other Family history non-contributory Social History Social History Social History: Surrogate medical decision maker: Ari Giron, daughter. Code status: Full code. Smoking packs per day: 1 Smoking cigarettes per day: 20.0 Years smoked: 49 Smoking pack-years: 49.00 Smoking status: Former smoker Tobacco type: cigarettes Second hand tobacco smoke exposure: Yes Alcohol intake: never Substance use: never Substance use type: does not use Lack of Transportation: YES Lack of Food: Sometimes True Current Housing: I Do Not Have Housing Concerned About Future Housing: YES Difficulty Paying Gas/Electric Bills: YES Difficulty Paying for Meds: No Currently Unemployed: No Education: High School Diploma/GED Difficulty w/ Childcare or Family Care: No Additional living arrangements comments: Lives in [place]. Additional occupation/education comments: Works at a local [employer]. Spiritual care concerns: No Meds Home Medications and Allergies Home Medications ?Medication ?Instructions ?Recorded ?Confirmed ?Type finasteride 5 mg tablet (Proscar) 5 mg PO QAM #30 tabs 03/19/23 08/15/25 Rx acetaminophen 500 mg tablet 500 mg PO QID PRN Pain 08/1108/15/25 History polyethylene glycol 3350 17 gram 17 g PO QAM PRN Const ipation #30 ea 11/29/23 08/15/25 Rx oral powder packet (Miralax) tamsulosin 0.4 mg capsule 0.4 mg PO QAM #30 caps 11/2808/15/25 Rx pantoprazole 40 mg tablet,delayed 40 mg PO DAILY 08/1508/15/25 History release sevelamer HCl 800 mg tablet 800 mg PO TIDWM 08/15/25 1 10/15/24 History Allergies Allergy/AdvReac Type Severity Reaction Status Date / Time No Known Allergies Allergy Verified 08/15/25 15:14 Vital Signs Vital Signs - 24 hr 08/15/25 11:57 08/15/25 12:04 08/15/25 12:07 Temperature 98.5 F Pulse Rate 102 H Respiratory Rate 19 Blood Pressure 149/86 H Pulse Oximetry 100 08/15/25 12:38 08/15/25 12:44 Temperature Pulse Rate 100 97 Respiratory Rate 17 19 Blood Pressure Pulse Oximetry Exam Narrative: General: Chronically ill no acute distress HEENT: normocephalic, atraumatic. Mucous membranes moist. EOMI, PERRLA, bi lateral sclera anicteric, no conjunctival injection. Neck supple without JVD, lymphadenopathy, or bruit. Right tunneled cath. Respiratory: clear bilaterally. No rales/rhonic/wheezes. Cardiovascular: Regular rate and rhythm, normal S1-S2. No murmurs, rubs, or clicks. PMI is nondisplaced, capillary refill less than 3 second. Abdomen: Soft, round, no pulsatile masses, nondistended and nontender. No rebound, no guarding. Bowel sounds present to all four quadrants. No high pitch or tinkling sounds, resonant to percussion. Extremities: No cyanosis, clubbing, or edema present. Pulses are palpable 2/2. Active ROM to all four extremities. Neuro: Alert and orientated x 4. PERRLA. Cranial nerves 2-12 intact without focal deficit. Skin: Warm, dry, and intact, without rash, erythema, or lesion. Psych: pleasant, cooperative, normal speech, normal affect, no hallucinations, no dysarthia H&P: Results Labs Labs: Short CBC 08/15/25 Range/Units 12:08 WBC 11.2 H (4.5-10.0) K/mm3 Hgb 5.9 L* D (14.0-18.0) g/dL Hct 17.9 L* (42.0-52.0) % Plt Count 154 (150-375) k/mm3 BMP 08/15/25 12:08 Sodium 138 Potassium 5.0 Chloride 110 H Carbon Dioxide 10 L BUN 126 H* D Creatinine 16.68 H Glucose 134 H Calcium 8.5 Cardiac Enzymes 08/15/25 Range/Units 12:08 Troponin I 0.063 H* (0.000-0.034) ng/mL Liver Function 08/15/25 Range/Units 12:08 Total Bilirubin 0.4 (0.2-1.3) mg/dL AST 14 L (17-59) U/L ALT 18 (6-50) U/L Alkaline Phosphatase 63 (38-126) U/L Albumin 4.1 (3.5-5.1) g/dL Assessment and Plan Assessment and plan (1) Anemia: Code(s): D64.9 - Anemia, unspecified Status: Acute Assessment and Plan: Hemoglobin 5.9 on admission Transfuse 2 units on 08/15/2025 Monitor for signs of bleeding Transfuse for hemoglobin less than 7 or symptomatic (2) End stage renal disease on dialysis: Code(s): N18.6 - End stage renal disease; Z99.2 - Dependence on renal dialysis Status: Inactive Assessment and Plan: Has not received dialysis in 3 months due to being homeless Nephrology consulted Potassium 5.0 Dialysis today Patient started on regular diet by Nephrology Continue Renvela (3) Bipolar disorder: Code(s): F31.9 - Bipolar disorder, unspecified Status: Acute Assessment and Plan: Not on medications (4) COPD with emphysema: Code(s): J43.9 - Emphysema, unspecified Status: Chronic Assessment and Plan: No shortness of breaths on exam Breath sounds clear (5) Benign prostate hyperplasia: Code(s): N40.0 - Benign prostatic hyperplasia without lower urinary tract symptoms Status: Chronic Assessment and Plan: Continue Flomax and Proscar Hospitalist MIPS Advance Care Plan I have confirmed that the patient's Advanced Care Plan is present, code status is documented, or surrogate decision maker is listed in patient medical record.: Yes Medication Reconciliation I have utilized all available resources to obtain, update and review the patients current medications (includes all prescriptions, OTC, herbals, cannabis, and nutritional supplements).: Yes
--- NOTE | 2025-08-15 14:23 | WPCEDHO ---
ED Hand Off Checklist All vitals saved:yes IV Site documented:yes All med administrations documented:yes Triage Note Triage Note Pt to ED from [facility] of 08/15/25 11:57 [place] [address] with complaint of left sided CP that started this morning. Pt states he recently had surgery for lung cancer on the left side a [facility] months ago [facility]. Also endorses SOB with ambulating. Allergies No Known Allergies Allergy (Verified 09/17/24 04:35) Family History (Last Reviewed 09/17/24 @ 06:53 by Sukh Stinson MD) Other Family history non-contributory Administered/Completed Medications Discontinued Medications Albuterol/Ipratropium (Ipratropium 0.5 Mg/Albuterol Sulfate 2.5 Mg (Base) Ampul.Neb 3 Ml) 3 ml INHALATION ONCE STA Stop: 08/15/25 12:08 Last Admin: 08/15/25 12:38 Dose: 3 ml Documented By: DDS Interventions/Assessments IV / Saline Lock, Insert Start: 08/15/25 12:05 Freq: STAT Status: Active Protocol: Document 08/15/25 12:06 LAKISHA (Rec: 08/15/25 12:07 [facility] [id number]) IV Assessment Peripheral Access Left Wrist IV Catheter Access Initiated IV Insertion Date 08/15/25 IV Insertion Time 12:06 Catheter Gauge 18 IV Site Assessment WNL IV Care and WNL Maintenance PA: Cardiovascular Assessment Start: 08/15/25 11:49 Freq: Status: Active Protocol: Document 08/15/25 12:05 PRASHANTH (Rec: 08/15/25 12:05 [facility] [id number]) Cardiovascular Assessment Cardiovascular Chest Pain,Dyspnea Symptoms Last Vital Signs Temperature 98.0 F 08/15/25 14:08 Pulse Rate 97 08/15/25 14:08 Respiratory Rate 23 H 08/15/25 14:08 Pulse Oximetry 98 08/15/25 14:08 Blood Pressure 146/77 H 08/15/25 14:08 Blood Pressure Mean 100 08/15/25 14:08 Weight 90.6 kg 08/15/25 11:57 Last Result - Abnormals Only WBC 11.2 K/mm3 (4.5-10.0) H 08/15/25 12:08 RBC 1.85 M/mm3 (4.6-6.20) L 08/15/25 12:08 Hgb 5.9 g/dL (14.0-18.0) L* D 08/15/25 12:08 Hct 17.9 % (42.0-52.0) L* 08/15/25 12:08 RDW 14.8 % (11.5-14.5) H 08/15/25 12:08 MPV 10.8 fl (7.4-10.4) H 08/15/25 12:08 Neut % (Auto) 82.5 % (45.5-73.1) H 08/15/25 12:08 Lymph % (Auto) 7.4 % (18.3-44.2) L 08/15/25 12:08 Lymph # (Auto) 0.83 K/mm3 (0.9-3.2) L 08/15/25 12:08 [place] # (Auto) 0.8 K/mm3 (0.1-0.6) H 08/15/25 12:08 Abs Immat Gran (auto) 0.06 K/mm3 (0.00-0.031) H 08/15/25 12:08 Absolute Neuts (auto) 9.2 K/mm3 (1.3-6.7) H 08/15/25 12:08 PT 16.5 Seconds (11.1-14.7) H 08/15/25 12:08 Chloride 110 mmol/L (98-107) H 08/15/25 12:08 Carbon Dioxide 10 mmol/L (22-30) L 08/15/25 12:08 Anion Gap 18 mmol/L (4-12) H 08/15/25 12:08 BUN 126 mg/dL (9-20) H* D 08/15/25 12:08 Creatinine 16.68 mg/dL (0.7-1.3) H 08/15/25 12:08 Estimated GFR 3 (59-) L 08/15/25 12:08 Glucose 134 mg/dL (65-110) H 08/15/25 12:08 AST 14 U/L (17-59) L 08/15/25 12:08 Troponin I 0.063 ng/mL (0.000-0.034) H* 08/15/25 12:08 NT-Pro-B Natriuret Pep > 32773 pg/mL (19.9-100) H 08/15/25 12:08 Crossmatch See Detail 08/15/25 12:41 Most Recent Suicide Severity Rating Suicide Severity Rating NO RISK INDICATED 08/15/25 11:57
[2025-08-15] MEDS: TUBING, BLOOD PLUM PUMP TUBING 1 EACH XX (14:25)
[2025-08-15] MEDS: SODIUM CHLORIDE 0.9% IV 250 ML 30 ML IV CONT (14:25)
[2025-08-15 14:40] LABS: Hepatitis B Surface Antigen Negative (Negative)
[2025-08-15 14:57] LABS: Hepatitis B Surface Anti Res Negative
--- NOTE | 2025-08-15 16:29 | ADMGEN ---
This patient, Andrey Giron, was admitted to IMU Room 207-01 at 1504. Patient/family oriented to hospital policies and general routines including ID bracelet, bed and alarms, visiting hours, pain management, procedures, bathroom and other care routines, personal items, smoking policy, room service/diet, and visiting hours. Information on how to activate the Rapid Response Team has been discussed. Patient/Family are encouraged to report perceived risks to care and to ask questions if they do not understand what they are told or what they should do.
[2025-08-15 16:47] LABS: Troponin I 0.058 ng/mL (0.000-0.034)
--- NOTE | 2025-08-15 17:10 | P.CONNP_ITS ---
Assessment and Plan Assessment and plan (1) End stage renal disease: Code(s): N18.6 - End stage renal disease Status: Chronic Assessment and Plan: * HD today * plan HD tomorrow and day after as well * still make reasonable urine output (which likely explains relative stability in electrolytes and volume status) * however, his kidneys are unable to remove the uremic toxins (hence. his elevated BUN and associated acidosis) * follow trend of electrolytes, volume status, and clearance * arrangements to re-establish outpatient dialysis (2) Shortness of breath: Code(s): R06.02 - Shortness of breath Status: Acute Assessment and Plan: * associated with mild chest discomfort * admission CXR noted: * interstitial pulmonary edema, pneumonitis, or less likely chronic interstitial lung disease * presumably related to severe anemia and mild volume overload * known smoking history +/- COPD * EKG noted and troponins flat * elevated BUN could be contributing to chest symptoms * check Echo to r/o pericardial effusion * follow clinical symptoms (3) Anemia: Code(s): D64.9 - Anemia, unspecified Status: Acute Assessment and Plan: * as noted by admission labs * preumably due to missed dialysis (and lack of IV iron and STEVE given with HD treatments) * PRBC transfusion per protocol * high dose Epogen with HD * check anemia studies * r/o GI loss * follow trend of H/H (4) Metabolic acidosis: Code(s): E87.20 - Acidosis, unspecified Status: Acute Assessment and Plan: * due to missed dialysis and uremia * dialysis should correct * follow CO2 levels (5) Uremia: Code(s): N19 - Unspecified kidney failure Status: Acute Assessment and Plan: * as noted by elevated BUN on admission * surprisingly, minimal symptons noted * dialysis should help improve this (6) Elevated BP reading w/ no diagnosis of HTN: Code(s): R03.0 - Elevated blood-pressure reading, without diagnosis of hypertension Status: Acute Assessment and Plan: * BP readings noted * follow trend with dialysis re-initiation * monitor trend of hemodynamics (7) Benign prostate hyperplasia: Code(s): N40.0 - Benign prostatic hyperplasia without lower urinary tract symptoms Status: Chronic Assessment and Plan: * continue Flomax and Proscar (8) COPD (chronic obstructive pulmonary disease): Code(s): J44.9 - Chronic obstructive pulmonary disease, unspecified Status: Chronic Assessment and Plan: * reported history * presumably due to smoking history * no evidence of acute exacerbation I will continue to follow the patient with you while he remains hospitalized and make further recommendations as deemed necessary. Thank you for allowing me to participate in the care of this patient. L History of Present Illness Reason for Consult Consult date: 08/15/25 Reason for consult: end stage renal disease Chief Complaint Chief complaint: n:HD;Anemia getting Transfusion History of Present Illness Narrative: The anais is a 65-year-old male with a past medical history as outlined below who presented to [facility] ER with complaints of chest discomfort and shortness of breath. Patient states that he has known his the symptoms shortness of breath and chest discomfort more recently particularly with exertional activities. The patient unfortunately is not the greatest historian so it is difficult to get detailed information him. He reports that just walking his bedroom to the bathroom causes him some shortness of breath. Furthermore he also complains of generalized fatigue. This is further complicated by fact that he has not had dialysis for least 2 or 3 months. Apparently the end April or early May he moved out of the area to be closer to his daughter and was set for outpatient dialysis in that area at that. However things apparently did not work out and so he subsequently traveled back to this area. However prior to leaving the area where his daughter lives he did not reestablish care at a local outpatient dialysis center. Hence would seem that he has not had renal replacement therapy / dialysis for the last few months. Any case, due to his ongoing shortness of breath, fatigue and mild chest discomfort he presented to the ER for further assessment. Workup and evaluation emergency room demonstrated the patient to be hemodynamically stable and afebrile with stable oxygen saturations. Routine labs noted a leukocytosis 11.2, hemoglobin of 5.9, INR 1.4, chloride of 110, carbon dioxide 10, anion gap 18, BUN of 126, creatinine 16.68, glucose of 134, AST of 14, troponin of 0.063, and a BNP over 30,000, His chest x-ray shows Interstitial pulmonary edema, pneumonitis, or less likely chronic interstitial lung disease. given his significant anemia and associated azotemia. He was admitted to the hospital for packed red blood cell transfusion and reinstitution of renal replacement therapy/dialysis. For renal consultation was requested due to his end-stage renal disease. As already mentioned above, it has been several months since he had regular routine dialysis treatments. As already mentioned, he moved back to this area but did not reestablish care with any outpatient dialysis unit and the exact specifics of what occurred in terms leading to this issue/ problem 1 not entirely clear. I suspect he abruptly left his previous living location and did not discuss with any of his outpatient dialysis units/clinics the need for ongoing therapy prior to leaving the area. Furthermore, when on Mukul clear why the patient weighed as long as he did before seeking care this problem as well. Surprisingly, despite his lack of dialysis prolonged period of time he has no critical electrolyte abnormalities but he has clear evidence of anemia, metabolic acidosis, and significant azotemia if not overt uremia. Currently at the time my evaluation he is receiving dialysis as well as a packed red blood cell transfusion seems to be tolerating it fairly well (seen on HD at 5:00pm). Review of Systems 2 Review of Systems: As per HPI. [facility] Past Medical History Medical History Chronic kidney disease Bipolar disorder Tobacco dependence Benign prostate hyperplasia COPD with emphysema Skin cancer Surgical History Surgical History History of tonsillectomy Status post surgical removal of malignant neoplasm of skin From his face and now has a growth on his nose. Family History Family History (Updated 08/15/25 @ 15:20 by Raquel Ortiz RN) Father Diabetes mellitus Acute myocardial infarction Hypertension Mother Cerebrovascular accident Hypertension Other Family history non-contributory Social History Social History Social History: Surrogate medical decision maker: Ari Giron, daughter. Code status: Full code. Smoking packs per day: 1 Smoking cigarettes per day: 20.0 Years smoked: 49 Smoking pack-years: 49.00 Smoking status: Former smoker Tobacco type: cigarettes Second hand tobacco smoke exposure: Yes Alcohol intake: never Substance use: never Substance use type: does not use Lack of Transportation: YES Lack of Food: Sometimes True Current Housing: I Do Not Have Housing Concerned About Future Housing: YES Difficulty Paying Gas/Electric Bills: YES Difficulty Paying for Meds: No Currently Unemployed: No Education: High School Diploma/GED Difficulty w/ Childcare or Family Care: No Additional living arrangements comments: Lives in [place]. Additional occupation/education comments: Works at a local [employer]. Spiritual care concerns: No Meds Home Medications and Allergies Home Medications ?Medication ?Instructions ?Recorded ?Confirmed ?Type finasteride 5 mg tablet (Proscar) 5 mg PO QAM #30 tabs 03/19/23 08/15/25 Rx acetaminophen 500 mg tablet 500 mg PO QID PRN Pain 08/1108/15/25 History polyethylene glycol 3350 17 gram 17 g PO QAM PRN Const ipation #30 ea 11/29/23 08/15/25 Rx oral powder packet (Miralax) tamsulosin 0.4 mg capsule 0.4 mg PO QAM #30 caps 11/2808/15/25 Rx pantoprazole 40 mg tablet,delayed 40 mg PO DAILY 08/1508/15/25 History release sevelamer HCl 800 mg tablet 800 mg PO TIDWM 08/15/25 1 10/15/24 History Allergies Allergy/AdvReac Type Severity Reaction Status Date / Time No Known Allergies Allergy Verified 08/15/25 15:14 Vital Signs Vital Signs Temp Pulse Resp BP Pulse Ox 08/15/25 16:44 98.6 F 89 16 161/89 H 99 08/15/25 16:32 100 164/95 H 08/15/25 16:00 96 08/15/25 15:25 98.3 F 94 18 162/79 H 99 08/15/25 14:25 98.1 F 93 20 151/78 H 98 08/15/25 14:08 98.0 F 97 23 H 146/77 H 98 08/15/25 12:44 97 19 08/15/25 12:38 100 17 08/15/25 12:07 100 08/15/25 12:04 98.5 F 08/15/25 11:57 102 H 19 149/86 H Exam 2 Narrative: GENERAL APPEARANCE: well developed well nourished male in no acute distress HEENT: normocephalic, atraumatic, normal conjunctiva and sclera, nares patient NECK: no lymphadenopathy, thyromegaly, or JVD MOUTH: normal lips, teeth, and gums CARDIOVASCULAR: RRR, normal S1 and S2, no rub RESPIRATORY: clear anteriorly ABDOMEN: soft, nontender, nondistended, positive bowel sounds present EXTREMITIES: no evidence of cyanosis, clubbing, or edema NEUROLOGICAL: alert and oriented x 3; CN II - XII intact bilaterally; no focal deficits noted Results Lab Results 08/16/25 07:58 08/16/25 07:58 Lab results: Most recent lab results Calcium 8.5 mg/dL (8.4-10.2) 08/15/25 12:08
[2025-08-15] MEDS: SEVELAMER CARBONATE 800 MG TABLET PO (18:06)
[2025-08-15] MEDS: EPOETIN ALFA-EPBX 20,000 UNITS/ML VIAL 20000 UNITS IV PUSH (18:56)
[2025-08-15 20:38] LABS: Influenza A QL RT-PCR Negative (Negative); Influenza B QL RT-PCR Negative (Negative); RSV RNA, RT-PCR Negative (Negative); SARS-CoV-2 RNA PCR Negative (Negative)
[2025-08-15 20:49] LABS: Troponin I 0.061 ng/mL (0.000-0.034)
[2025-08-15] MEDS: BENZONATATE 100 MG CAPSULE PO (21:11)
[2025-08-15 21:14] LABS: MRSA (PCR) NOT DETECTED (NOT DETECTE)
[2025-08-15 21:24] LABS: Add Urine Microscopic? YES; Appearance Urine Clear (Clear); Glucose Urine UA 1+ mg/dL (Negative); Leukocyte Esterase Ur Negative LEU/UL (Negative); Nitrate Urine Negative (Negative); Non Pathogenic Casts 0-2; Specific Grav Ur 1.009 (1.001-1.035)
[2025-08-16] VITALS (26 sets, daily range): BP systolic 121–160; BP diastolic 60–93; PULSE 94–120; RESP 16–20; TEMP 36.3–37.1; O2SAT 91–98
--- NOTE | 2025-08-16 | ECHO_ITS ---
Patient Info Name: Andrey Giron Age: 65 years : 1960 Gender: Male Ht: 68 in Wt: 197 lbs BSA: 2.09 m2 HR: 90 bpm BP: 157 / 88 mmHg Heart Rhythm: Sinus Rhythm Technical Quality: Fair Exam Date: 08/16/2025 2:15 PM Patient Status: I Admit Date: 08/15/2025 Exam Type: CA echo dop color flow w con Complete two-dimensional, color flow and Doppler transthoracic echocardiogram is performed with contrast to opacify the left ventricle and to improve the deliniation of the left ventricle endocardial borders. Staff Referring Physician: Becca Troy Welder Production Line Combination: Reed Keys III Attending Provider: Evens Adamson Contrast/Agitated Saline Contrast/Ag. Saline: Definity Amount: 2.00 ml Administered By: Reed Keys III Existing IV Access: Yes IV Access Condition: patent with no signs of infiltration Summary 1. Normal left ventricular size with hyperdynamic systolic function. 2. Unremarkable cardiac valves. 3. Grade 1 diastolic noncompliance. 4. Definity contrast used to improve visualization. Left Ventricle Left ventricular chamber dimension is normal. Left ventricular systolic function is hyperdynamic, estimated at >70. The left ventricular diastolic function is grade I diastolic dysfunction. Right Ventricle Right ventricular chamber dimension is normal. Left Atria Left atrial chamber dimension is normal. Right Atria Right atrial chamber dimension is normal. Aortic Valve The aortic valve is normal. Pulmonic Valve The pulmonic valve is not well visualized. Mitral Valve The mitral valve has normal leaflets. Tricuspid Valve The tricuspid valve leaflets are normal. Pericardium/Pleural The pericardium appears normal. Aorta The aortic root size at the sinus of Valsalva is normal. Left Ventricular Outflow Tract Name Value Normal LVOT 2D LVOT Diameter 2.3 cm LVOT Doppler LVOT Peak Velocity 168 cm/s LVOT Peak Gradient 11 mmHg LVOT Mean Gradient 5 mmHg LVOT VTI 31 cm LVOT VTI/AV VTI Ratio 1.0 LVOT Stroke Volume 134 ml LVOT CO 12.3 l/min LVOT CI 5.9 l/min/m2 Pulmonic Valve Name Value Normal PV Doppler PV Peak Velocity 119 cm/s PV Peak Gradient 6 mmHg PV Mean Gradient 3 mmHg PV Regurgitation Doppler UT Peak End Diastolic Velocity 134 cm/s Mitral Valve Name Value Normal MV Doppler MV Peak Gradient 5 mmHg MV Mean Gradient 2 mmHg MV Area (Cont Eq VTI) 6.3 cm2 MV Diastolic Function MV E Peak Velocity 82 cm/s MV A Peak Velocity 117 cm/s MV E/A 0.7 MV Decel Time (PW) 270 ms MV Annular TDI MV E/e' (Septal) 12.9 MV E/e' (Lateral) 9.8 MV E/e' (Average) 11.3 Tricuspid Valve Name Value Normal TV Annular TDI TV Lateral Nae s' Velocity 17.9 cm/s >=9.5 Aortic Valve Name Value Normal AV Doppler AV Peak Velocity 171 cm/s AV Peak Gradient 12 mmHg AV Mean Gradient 8 mmHg AV VTI 31 cm AV Area (Cont Eq VTI) 4.4 cm2 >=3.0 AV Area (Cont Eq [place]) 4.2 cm2 AV DI ([place]) 0.98 AV Regurgitation 2D LVOT Area 4.3 cm2 Ventricles Name Value Normal LV Dimensions 2D/MM IVS Diastolic Thickness (2D) 1.0 cm 0.6-1.0 LVID Diastole (2D) 4.9 cm 4.2-5.8 LVIW Diastolic Thickness (2D) 1.0 cm 0.6-1.0 LVID Systole (2D) 3.5 cm 2.5-4.0 LVOT Diameter 2.3 cm LV Mass (2D Cubed) 186.26 g 88.00-224.00 LV Mass Index (2D Cubed) 89 g/m2 49-115 Relative Wall Thickness (2D) 0.43 <=0.42 LV Fractional Shortening/Ejection Fraction 2D/MM LV Fractional Shortening (2D) 29 % 25-43 LV EF (2D Teichholz) 56 % LV Diastolic Volume (4C MOD) 127 ml LV EF (4C MOD) 56 % LV Diastolic Volume (2C MOD) 117 ml LV EF (2C MOD) 63 % LV Diastolic Volume (BP MOD) 121 ml 62-150 LV Diastolic Volume Index (BP MOD) 58 ml/m2 34-74 LV Systolic Volume (BP MOD) 49 ml 21-61 LV Systolic Volume Index (BP MOD) 24 ml/m2 11-31 LV EF (BP MOD) 59 % 52-72 LV Diastolic Length (4C) 9.3 cm LV Systolic Length (4C) 8.3 cm LV Stroke Volume (4C MOD) 71 ml Atria Name Value Normal LA Dimensions LA Volume (4C A-L) 59 ml LA Volume (BP A-L) 76 ml RA Dimensions RA Systolic Major [place] Length (4C) 5.0 cm 2.1-2.7 RA Area (4C) 18.1 cm2 <=18.0 Report Signatures
[2025-08-16] MEDS: BENZONATATE 100 MG CAPSULE PO (07:36)
[2025-08-16 08:18] LABS: Hematocrit 22.5 % (42.0-52.0); Hemoglobin 7.3 g/dL (14.0-18.0); Immature Granulocyte Percent A 0.6 % (0-0.5); Lymphocytes Absolute Auto 0.88 K/mm3 (0.9-3.2); Mean Corpuscular HGB Conc 32.4 g/dl (32-36); Mean Corpuscular Hemoglobin 29.9 pg (26-34); Mean Corpuscular Volume 92.2 fl (80-100); Nucleated Red Blood Cells Absolute Auto 0.000 K/mm3 (0.0-0.012); Nucleated Red Blood Cells Perc 0.0 % (0.0-0.2); Platelet Count Result 164 k/mm3 (150-375); Red Blood Count 2.44 M/mm3 (4.6-6.20); White Blood Count 12.3 K/mm3 (4.5-10.0)
[2025-08-16 08:39] LABS: Albumin Level 4.1 g/dL (3.5-5.1); Anion Gap 15 mmol/L (4-12); Blood Urea Nitrogen 90 mg/dL (9-20); Calcium 8.3 mg/dL (8.4-10.2); Carbon Dioxide 18 mmol/L (22-30); Chloride 106 mmol/L (98-107); Estimated CRCL calculation 6 ml/min; Estimated Glomerular Filt Rate 4; Glucose 119 mg/dL (65-110); Potassium 4.0 mmol/L (3.4-5.0); Sodium 139 mmol/L (137-145)
[2025-08-16 08:49] LABS: Parathyroid Intact 748.3 pg/mL (14.5-75.2)
[2025-08-16] MEDS: EPOETIN ALFA-EPBX 20,000 UNITS/ML VIAL 20000 UNITS IV PUSH (09:20)
[2025-08-16] MEDS: ONDANSETRON INJ 4 MG/2 ML VIAL IV PUSH (10:19)
--- NOTE | 2025-08-16 10:40 | P.PNNP_ITS ---
Progress Note: A&P Assessment and Plan (1) End stage renal disease: Code(s): N18.6 - End stage renal disease Status: Chronic Assessment and Plan: * HD yesterday * HD today * plan HD tomorrow * still make reasonable urine output (which likely explains relative stability in electrolytes and volume status on admission) * however, his kidneys are unable to remove the uremic toxins (hence. his elevated BUN and associated acidosis on admission) * follow trend of electrolytes, volume status, and clearance * arrangements being made to re-establish outpatient dialysis (2) Shortness of breath: Code(s): R06.02 - Shortness of breath Status: Acute Assessment and Plan: * seems better * associated with mild chest discomfort * admission CXR noted: * interstitial pulmonary edema, pneumonitis, or less likely chronic interstitial lung disease * presumably related to severe anemia and mild volume overload * but also with known smoking history +/- COPD * EKG noted and troponins flat * elevated BUN could be contributing to chest symptoms * check Echo to r/o pericardial effusion * follow clinical symptoms (3) Anemia: Code(s): D64.9 - Anemia, unspecified Status: Acute Assessment and Plan: * improved following blood transfusion * as noted by admission labs * presumably due to missed dialysis (and lack of IV iron and STEVE given with HD treatments) * PRBC transfusion per protocol * high dose Epogen with HD * anemia studies with iron deficiency * start IV venofer * r/o GI loss * follow trend of H/H (4) Metabolic acidosis: Code(s): E87.20 - Acidosis, unspecified Status: Acute Assessment and Plan: * slow improvement * due to missed dialysis and uremia * dialysis should correct * follow CO2 levels (5) Uremia: Code(s): N19 - Unspecified kidney failure Status: Acute Assessment and Plan: * doing better * as noted by elevated BUN on admission * surprisingly, minimal symptoms noted on presentation * however, some nausea/vomiting noted on 08/16 * dialysis should help improve this (6) Elevated BP reading w/ no diagnosis of HTN: Code(s): R03.0 - Elevated blood-pressure reading, without diagnosis of hypertension Status: Acute Assessment and Plan: * BP readings noted * follow trend with dialysis re-initiation * monitor trend of hemodynamics (7) Benign prostate hyperplasia: Code(s): N40.0 - Benign prostatic hyperplasia without lower urinary tract symptoms Status: Chronic Assessment and Plan: * continue Flomax and Proscar (8) COPD (chronic obstructive pulmonary disease): Code(s): J44.9 - Chronic obstructive pulmonary disease, unspecified Status: Chronic Assessment and Plan: * reported history * presumably due to smoking history * no evidence of acute exacerbation Will continue to follow. L Subjective Date/time seen: 08/16/25 10:40 Interval history: Follow-up for end stage renal disease on hemodialysis. Tolerating dialysis treatment at the time of my visit but reports nausea/vomiting when seen; tolerated dialysis treatment yesterday but cut treatment about 30 minutes short due to cramping; tolerated PRBC transfusion; no issues/events overnight or earlier this morning. Exam 2 Narrative: General: WD/WN male in NAD Heart: normal S1 and S2; no rub Lungs: clear anteriorly Abdomen: soft, nontender, nondistended, positive bowel sounds Extremities: no cyanosis or clubbing; no edema Skin: warm and dry Objective Data Vital Signs Vital Signs: Vital Signs Temp Pulse Resp BP Pulse Ox O2 Del Method 08/16/25 10:30 98 136/80 08/16/25 10:15 100 154/93 H 08/16/25 10:00 97 08/16/25 10:00 102 H 152/79 H 08/16/25 09:45 98 157/85 H 08/16/25 09:30 95 153/78 H 08/16/25 09:15 98 160/88 H 08/16/25 09:00 99 152/91 H 08/16/25 08:45 98 155/88 H 08/16/25 08:30 95 142/85 H 08/16/25 08:15 98 157/88 H 08/16/25 08:00 96 08/16/25 08:00 Room Air 08/16/25 08:00 94 158/88 H 08/16/25 07:50 94 159/85 H 08/16/25 07:40 98.7 F 103 H 16 151/92 H 97 08/16/25 07:37 97.6 F 102 H 18 157/86 H 96 08/16/25 05:53 96 08/16/25 04:00 120 H 08/16/25 04:00 Room Air 08/16/25 04:00 98 F 116 H 18 137/82 97 08/16/25 02:00 95 08/16/25 00:00 94 08/15/25 23:49 Room Air 08/15/25 23:37 99.5 F 93 18 138/54 L 99 08/15/25 22:00 96 08/15/25 20:12 98.6 F 108 H 18 121/53 L 91 08/15/25 20:00 104 H 08/15/25 20:00 Room Air 08/15/25 18:44 98.6 F 113 H 18 159/77 H 99 08/15/25 18:35 119 H 141/89 H 08/15/25 18:30 141/89 H 08/15/25 18:15 119 H 132/76 08/15/25 18:01 98.6 F 104 H 18 128/74 98 08/15/25 18:01 98.6 F 104 H 18 128/74 98 08/15/25 18:00 104 H 128/74 08/15/25 18:00 110 H 08/15/25 17:45 113 H 114/83 08/15/25 17:30 109 H 147/88 H 08/15/25 17:15 98 148/87 H 08/15/25 17:01 98.6 F 95 14 153/90 H 99 08/15/25 17:00 95 153/90 H 08/15/25 16:46 99 161/89 H 08/15/25 16:44 98.6 F 89 16 161/89 H 99 08/15/25 16:32 100 164/95 H 08/15/25 16:00 Room Air 08/15/25 16:00 96 08/15/25 15:25 98.3 F 94 18 162/79 H 99 08/15/25 15:25 98.3 F 94 18 162/79 H 99 08/15/25 14:25 98.1 F 93 20 151/78 H 98 08/15/25 14:08 98.0 F 97 23 H 146/77 H 98 08/15/25 12:44 97 19 08/15/25 12:38 100 17 Intake/Output Intake/Output: Intake & Output 08/13/25 08/14/25 08/15/25 08/16/25 23:59 23:59 23:59 23:59 Intake Total 940 120 Output Total 875 250 Balance 65 -130 Meds/Results Medications: Active Medications Generic Name Dose Route Start Last Admin Trade Name Freq PRN Reason Stop Dose Admin Acetaminophen 650 mg 08/15/25 14:21 Acetaminophen 325 Mg Tablet PO Q4H PRN Mild Pain (1-3) or Fever Benzonatate 100 mg 08/15/25 20:51 08/16/25 07:36 Benzonatate 100 Mg Capsule PO 100 mg Q8H PRN Administration Cough Finasteride 5 mg 08/16/25 09:00 08/16/25 11:29 Finasteride 5 Mg Tablet PO 5 mg QAM CHRIS Administration Guaifenesin 600 mg 08/16/25 21:00 Guaifenesin 12 Hr 600 Mg Tabcr PO Q12HR CHRIS Albumin Human 50 mls @ 999 mls/hr 08/15/25 14:33 Albutein IVPB 09/14/25 14:32 Q10M PRN HYPOTENSION Ondansetron HCl 4 mg 08/16/25 09:49 08/16/25 10:19 Ondansetron Inj 4 Mg/2 Ml Vial IV PUSH 4 mg Q6H PRN Administration Nausea And Vomiting Pantoprazole Sodium 40 mg 08/16/25 09:00 08/16/25 11:29 Pantoprazole 40 Mg Tablet PO 40 mg DAILY CHRIS Administration Perflutren Lipid Microsphere 0 ml 08/15/25 22:18 Perflutren Lipid Microspheres 1.5 Ml Vial Diluted To 10 Ml Total Volume IV PUSH 08/18/25 22:18 ONCE PRN adequate visualization Protocol Polyethylene Glycol 17 gm 08/15/25 16:56 Polyethylene Glycol 3350 17 Gm Powd.Pack PO QAM PRN Constipation Sevelamer Carbonate 800 mg 08/15/25 17:00 08/16/25 11:29 Sevelamer Carbonate 800 Mg Tablet PO 09/14/25 16:59 800 mg TIDWM CHRIS Administration Tamsulosin HCl 0.4 mg 08/16/25 09:00 08/16/25 11:29 Tamsulosin Hcl 0.4 Mg Capsule PO 0.4 mg QAM CHRIS Administration Radiology Results: ITS Impressions Chest X-Ray 08/15/25 13:22 IMPRESSION: 1. Interstitial pulmonary edema, pneumonitis, or less likely chronic interstitial lung disease. Labs Labs: Laboratory Tests 08/16/25 07:58 08/16/25 07:58 Calcium 8.3 L Phosphorus 7.5 H Iron 21 L TIBC 302 % Saturation 7 L Ferritin Pending Albumin 4.1 Vitamin B12 Pending Vitamin D 25-Hydroxy 15.4 Folate Pending PTH Intact 748.3 H
[2025-08-16] MEDS: SEVELAMER CARBONATE 800 MG TABLET PO ×2 (11:29→17:12)
[2025-08-16] MEDS: FINASTERIDE 5 MG TABLET PO (11:29)
[2025-08-16] MEDS: TAMSULOSIN HCL 0.4 MG CAPSULE PO (11:29)
[2025-08-16] MEDS: PANTOPRAZOLE 40 MG TABLET PO (11:29)
[2025-08-16 11:56] LABS: Iron 21 ug/dL (49-181)
[2025-08-16 12:05] LABS: Percent Iron Saturation 7 % (20-50)
[2025-08-16 12:38] LABS: Ferritin 408.00 ng/mL (11.1-264)
[2025-08-16 13:53] LABS: Vitamin B12 306.0 pg/mL (239-931)
--- NOTE | 2025-08-16 13:54 | P.PNIM_ITS ---
Progress Note: A&P Assessment and Plan (1) Anemia: Code(s): D64.9 - Anemia, unspecified Status: Acute Assessment and Plan: Hemoglobin 5.9 on admission Transfuse 2 units on 08/15/2025 Monitor for signs of bleeding Transfuse for hemoglobin less than 7 or symptomatic (2) End stage renal disease on dialysis: Code(s): N18.6 - End stage renal disease; Z99.2 - Dependence on renal dialysis Status: Inactive Assessment and Plan: Has not received dialysis in 3 months due to being homeless Nephrology consulted Potassium 5.0 Per Nephrology Patient started on regular diet by Nephrology Justo Coelhovelalli Dialysis initiated 11/2023 (3) Bipolar disorder: Code(s): F31.9 - Bipolar disorder, unspecified Status: Acute Assessment and Plan: Not on medications (4) COPD with emphysema: Code(s): J43.9 - Emphysema, unspecified Status: Chronic Assessment and Plan: No shortness of breaths on exam Breath sounds clear (5) Benign prostate hyperplasia: Code(s): N40.0 - Benign prostatic hyperplasia without lower urinary tract symptoms Status: Chronic Assessment and Plan: Continue Flomax and Proscar Plan Chest pain/shortness of breath chest x-ray with pulmonary edema. Dialysis patient but has not had dialysis in almost 3 months. Anemia with hemoglobin 5.9 on admission. Acute on chronic baseline hemoglobin around 10. Could be from underlying kidney disease. Continue to monitor no signs of bleeding. Transfused 2 units of PRBC on admission. Metabolic acidosis Elevated BUN Elevated troponin with flat trend BPH history of bilateral nephrostomy tube placement in the past History of skin cancer status post excision and grafting Subjective Date/time seen: 08/16/25 13:54 Interval history: No overnight events. No new complaints except Right ear fullness which has been on ongoing problem. Patient is a poor historian. Review of Systems Review of Systems: 12 systems were reviewed and are negative except for as per HPI. Exam Narrative: General: Chronically ill no acute distress HEENT: normocephalic, atraumatic. Mucous membranes moist. Delete Right tunneled cath. Respiratory: clear bilaterally. No rales/rhonic/wheezes. Cardiovascular: Regular rate and rhythm, normal S1-S2. No murmurs, rubs, or clicks. Delete Abdomen: Soft, round, no pulsatile masses, nondistended and nontender. Delete Extremities: No cyanosis, clubbing, or edema present. Pulses are palpable 2/2. Active ROM to all four extremities. Neuro: Alert and orientated x 4. PERRLA. Cranial nerves 2-12 intact without focal deficit. Skin: Warm, dry, and intact, without rash, erythema, or lesion. Psych: pleasant, cooperative, normal speech, normal affect, no hallucinations, no dysarthia Objective Data Vital Signs Vital Signs: Vital Signs - 24 hr 08/15/25 14:08 08/15/25 14:25 08/15/25 15:25 Temperature 98.0 F 98.1 F 98.3 F Pulse Rate 97 93 94 Respiratory Rate 23 H 20 18 Blood Pressure 146/77 H 151/78 H 162/79 H Pulse Oximetry 98 98 99 Oxygen Delivery 08/15/25 15:25 08/15/25 16:00 08/15/25 16:00 Temperature 98.3 F Pulse Rate 94 96 Respiratory Rate 18 Blood Pressure 162/79 H Pulse Oximetry 99 Oxygen Delivery Room Air 08/15/25 16:32 08/15/25 16:44 08/15/25 16:46 Temperature 98.6 F Pulse Rate 100 89 99 Respiratory Rate 16 Blood Pressure 164/95 H 161/89 H 161/89 H Pulse Oximetry 99 Oxygen Delivery 08/15/25 17:00 08/15/25 17:01 08/15/25 17:15 Temperature 98.6 F Pulse Rate 95 95 98 Respiratory Rate 14 Blood Pressure 153/90 H 153/90 H 148/87 H Pulse Oximetry 99 Oxygen Delivery 08/15/25 17:30 08/15/25 17:45 08/15/25 18:00 Temperature Pulse Rate 109 H 113 H 110 H Respiratory Rate Blood Pressure 147/88 H 114/83 Pulse Oximetry Oxygen Delivery 08/15/25 18:00 08/15/25 18:01 08/15/25 18:01 Temperature 98.6 F 98.6 F Pulse Rate 104 H 104 H 104 H Respiratory Rate 18 18 Blood Pressure 128/74 128/74 128/74 Pulse Oximetry 98 98 Oxygen Delivery 08/15/25 18:15 08/15/25 18:30 08/15/25 18:35 Temperature Pulse Rate 119 H 119 H Respiratory Rate Blood Pressure 132/76 141/89 H 141/89 H Pulse Oximetry Oxygen Delivery 08/15/25 18:44 08/15/25 20:00 08/15/25 20:00 Temperature 98.6 F Pulse Rate 113 H 104 H Respiratory Rate 18 Blood Pressure 159/77 H Pulse Oximetry 99 Oxygen Delivery Room Air 08/15/25 20:12 08/15/25 22:00 08/15/25 23:37 Temperature 98.6 F 99.5 F Pulse Rate 108 H 96 93 Respiratory Rate 18 18 Blood Pressure 121/53 L 138/54 L Pulse Oximetry 91 99 Oxygen Delivery 08/15/25 23:49 08/16/25 00:00 08/16/25 02:00 Temperature Pulse Rate 94 95 Respiratory Rate Blood Pressure Pulse Oximetry Oxygen Delivery Room Air 08/16/25 04:00 08/16/25 04:00 08/16/25 04:00 Temperature 98 F Pulse Rate 116 H 120 H Respiratory Rate 18 Blood Pressure 137/82 Pulse Oximetry 97 Oxygen Delivery Room Air 08/16/25 05:53 08/16/25 07:37 08/16/25 07:40 Temperature 97.6 F 98.7 F Pulse Rate 96 102 H 103 H Respiratory Rate 18 16 Blood Pressure 157/86 H 151/92 H Pulse Oximetry 96 97 Oxygen Delivery 08/16/25 07:50 08/16/25 08:00 08/16/25 08:00 Temperature Pulse Rate 94 94 Respiratory Rate Blood Pressure 159/85 H 158/88 H Pulse Oximetry Oxygen Delivery Room Air 08/16/25 08:00 08/16/25 08:15 08/16/25 08:30 Temperature Pulse Rate 96 98 95 Respiratory Rate Blood Pressure 157/88 H 142/85 H Pulse Oximetry Oxygen Delivery 08/16/25 08:45 08/16/25 09:00 08/16/25 09:15 Temperature Pulse Rate 98 99 98 Respiratory Rate Blood Pressure 155/88 H 152/91 H 160/88 H Pulse Oximetry Oxygen Delivery 08/16/25 09:30 08/16/25 09:45 08/16/25 10:00 Temperature Pulse Rate 95 98 102 H Respiratory Rate Blood Pressure 153/78 H 157/85 H 152/79 H Pulse Oximetry Oxygen Delivery 08/16/25 10:00 08/16/25 10:15 08/16/25 10:30 Temperature Pulse Rate 97 100 98 Respiratory Rate Blood Pressure 154/93 H 136/80 Pulse Oximetry Oxygen Delivery 08/16/25 10:45 08/16/25 10:51 08/16/25 11:04 Temperature 98.3 F Pulse Rate 102 H 102 H 94 Respiratory Rate 16 Blood Pressure 155/79 H 121/80 151/79 H Pulse Oximetry 98 Oxygen Delivery 08/16/25 11:40 08/16/25 11:55 08/16/25 12:00 Temperature 98.1 F Pulse Rate 103 H 95 Respiratory Rate 20 Blood Pressure 130/66 Pulse Oximetry 94 Oxygen Delivery Room Air Intake/Output Intake/Output: Intake & Output 08/13/25 08/14/25 08/15/25 08/16/25 23:59 23:59 23:59 23:59 Intake Total 940 240 Output Total 875 250 Balance 65 -10 Meds/Results Medications: Active Medications Generic Name Dose Route Start Last Admin Trade Name Freq PRN Reason Stop Dose Admin Acetaminophen 650 mg 08/15/25 14:21 Acetaminophen 325 Mg Tablet PO Q4H PRN Mild Pain (1-3) or Fever Benzonatate 100 mg 08/15/25 20:51 08/16/25 07:36 Benzonatate 100 Mg Capsule PO 100 mg Q8H PRN Administration Cough Finasteride 5 mg 08/16/25 09:00 08/16/25 11:29 Finasteride 5 Mg Tablet PO 5 mg QAM CHRIS Administration Guaifenesin 600 mg 08/16/25 21:00 Guaifenesin 12 Hr 600 Mg Tabcr PO Q12HR CHRIS Albumin Human 50 mls @ 999 mls/hr 08/15/25 14:33 Albutein IVPB 09/14/25 14:32 Q10M PRN HYPOTENSION Ondansetron HCl 4 mg 08/16/25 09:49 08/16/25 10:19 Ondansetron Inj 4 Mg/2 Ml Vial IV PUSH 4 mg Q6H PRN Administration Nausea And Vomiting Pantoprazole Sodium 40 mg 08/16/25 09:00 08/16/25 11:29 Pantoprazole 40 Mg Tablet PO 40 mg DAILY CHRIS Administration Perflutren Lipid Microsphere 0 ml 08/15/25 22:18 Perflutren Lipid Microspheres 1.5 Ml Vial Diluted To 10 Ml Total Volume IV PUSH 08/18/25 22:18 ONCE PRN adequate visualization Protocol Polyethylene Glycol 17 gm 08/15/25 16:56 Polyethylene Glycol 3350 17 Gm Powd.Pack PO QAM PRN Constipation Sevelamer Carbonate 800 mg 08/15/25 17:00 08/16/25 11:29 Sevelamer Carbonate 800 Mg Tablet PO 09/14/25 16:59 800 mg TIDWM CHRIS Administration Tamsulosin HCl 0.4 mg 08/16/25 09:00 08/16/25 11:29 Tamsulosin Hcl 0.4 Mg Capsule PO 0.4 mg QAM CHRIS Administration Radiology Results: ITS Impressions Chest X-Ray 08/15/25 13:22 IMPRESSION: 1. Interstitial pulmonary edema, pneumonitis, or less likely chronic interstitial lung disease. Labs Labs: Laboratory Results - last 24 hr 08/15/25 08/15/25 08/15/25 12:08 12:41 16:00 WBC RBC Hgb Hct MCV MCH MCHC RDW Plt Count MPV Immature Gran % (Auto) Neut % (Auto) Lymph % (Auto) [place] % (Auto) Eos % (Auto) Baso % (Auto) Lymph # (Auto) [place] # (Auto) Eos # (Auto) Baso # (Auto) Abs Immat Gran (auto) Absolute Neuts (auto) Absolute Nucleated RBC Nucleated RBC % Sodium Potassium Chloride Carbon Dioxide Anion Gap BUN Creatinine Estim Creat Clear Calc Estimated GFR Glucose Calcium Phosphorus Iron TIBC % Saturation Ferritin Troponin I 0.058 H* Albumin Vitamin B12 Vitamin D 25-Hydroxy Folate PTH Intact Urine Color Urine Appearance Urine pH Ur Specific [place] Urine Protein Urine Glucose (UA) Urine Ketones Ur Blood (Man) Urine Nitrate Urine Bilirubin Urine Urobilinogen Leukocyte Esterase Rfl Urine RBC Urine WBC Ur Squamous Epith Cells Urine Bacteria Urine Casts Nasal MRSA (PCR) Hep Bs Antigen Negative Hep Bs Antibody Negative Hep B Core Total Ab Influenza A (RT-PCR) Influenza B (RT-PCR) RSV (RT-PCR) SARS-CoV-2 RNA (RT-PCR) Blood Type O Positive Antibody Screen Negative Crossmatch See Detail 08/15/25 08/15/25 08/15/25 19:55 19:56 20:14 WBC RBC Hgb Hct MCV MCH MCHC RDW Plt Count MPV Immature Gran % (Auto) Neut % (Auto) Lymph % (Auto) [place] % (Auto) Eos % (Auto) Baso % (Auto) Lymph # (Auto) [place] # (Auto) Eos # (Auto) Baso # (Auto) Abs Immat Gran (auto) Absolute Neuts (auto) Absolute Nucleated RBC Nucleated RBC % Sodium Potassium Chloride Carbon Dioxide Anion Gap BUN Creatinine Estim Creat Clear Calc Estimated GFR Glucose Calcium Phosphorus Iron TIBC % Saturation Ferritin Troponin I 0.061 H* Albumin Vitamin B12 Vitamin D 25-Hydroxy Folate PTH Intact Urine Color Urine Appearance Urine pH Ur Specific [place] Urine Protein Urine Glucose (UA) Urine Ketones Ur Blood (Man) Urine Nitrate Urine Bilirubin Urine Urobilinogen Leukocyte Esterase Rfl Urine RBC Urine WBC Ur Squamous Epith Cells Urine Bacteria Urine Casts Nasal MRSA (PCR) Not detected Hep Bs Antigen Hep Bs Antibody Hep B Core Total Ab Influenza A (RT-PCR) Negative Influenza B (RT-PCR) Negative RSV (RT-PCR) Negative SARS-CoV-2 RNA (RT-PCR) Negative Blood Type Antibody Screen Crossmatch 08/15/25 08/16/25 21:12 07:58 WBC 12.3 H RBC 2.44 L Hgb 7.3 L Hct 22.5 L MCV 92.2 MCH 29.9 D MCHC 32.4 RDW 16.1 H Plt Count 164 MPV 10.9 H Immature Gran % (Auto) 0.6 H Neut % (Auto) 81.9 H Lymph % (Auto) 7.2 L [place] % (Auto) 8.3 Eos % (Auto) 1.5 Baso % (Auto) 0.5 Lymph # (Auto) 0.88 L [place] # (Auto) 1.0 H Eos # (Auto) 0.2 Baso # (Auto) 0.1 Abs Immat Gran (auto) 0.07 H Absolute Neuts (auto) 10.1 H Absolute Nucleated RBC 0.000 Nucleated RBC % 0.0 Sodium 139 Potassium 4.0 Chloride 106 Carbon Dioxide 18 L Anion Gap 15 H BUN 90 H D Creatinine 12.24 H Estim Creat Clear Calc 6 Estimated GFR 4 L Glucose 119 H Calcium 8.3 L Phosphorus 7.5 H Iron 21 L TIBC 302 % Saturation 7 L Ferritin 408.00 H Troponin I Albumin 4.1 Vitamin B12 306.0 Vitamin D 25-Hydroxy 15.4 Folate 6.8 PTH Intact 748.3 H Urine Color Yellow Urine Appearance Clear Urine pH 6.0 Ur Specific [place] 1.009 Urine Protein 3+ H Urine Glucose (UA) 1+ H Urine Ketones Negative Ur Blood (Man) 2+ H Urine Nitrate Negative Urine Bilirubin Negative Urine Urobilinogen 0.2 Leukocyte Esterase Rfl Negative Urine RBC 0-2 Urine WBC 0-5 Ur Squamous Epith Cells None seen Urine Bacteria None seen Urine Casts 0-2 Nasal MRSA (PCR) Hep Bs Antigen Hep Bs Antibody Hep B Core Total Ab Cancelled Influenza A (RT-PCR) Influenza B (RT-PCR) RSV (RT-PCR) SARS-CoV-2 RNA (RT-PCR) Blood Type Antibody Screen Crossmatch
--- NOTE | 2025-08-16 15:30 | PC.NURSE ---
This patient, Andrey Giron, was transferred to [facility] on 08/16/25 at 1530. Personal belongings sent with patient. Report given to Bhavin TELLES. Appropriate documentation sent with patient.
[2025-08-16] MEDS: PERFLUTREN LIPID MICROSPHERES 1.5 ML VIAL DILUTED TO 10 ML TOTAL VOLUME IV PUSH (15:42)
--- NOTE | 2025-08-16 15:42 | IVDEFINITY ---
Prior to administration of IV Definity the patient was educated on the risks and benefits of the imaging enhancing agent including potential adverse side effects. The patient verbalized understanding. Allergies were verified. No exclusion criteria were identified and at least one of the following inclusion criteria were met: 1) physician request, 2) patient technically difficult to image (per the [place] [employer] guidelines of two or more segments not discernable within the apical view), or 3) questionable left ventricular function. ?
--- NOTE | 2025-08-16 15:54 | ADMGEN ---
This patient, Andrey Giron, was transferred to Medical Room 251-01. Patient/family oriented to hospital policies and general routines including ID bracelet, bed and alarms, visiting hours, pain management, procedures, bathroom and other care routines, personal items, smoking policy, room service/diet, and visiting hours.
[2025-08-16] MEDS: guaiFENesin 12 HR 600 MG TABCR PO (20:25)
[2025-08-17] VITALS (16 sets, daily range): BP systolic 112–168; BP diastolic 53–96; PULSE 83–126; RESP 16–18; TEMP 14.2–37; O2SAT 91–99
[2025-08-17 04:07] LABS: Hep B Core Ab, Total Negative (Negative)
--- NOTE | 2025-08-17 05:42 | PC.NURSE ---
Patient refused his morning labs. Patient is planned to have dialysis today, we'll coordinate if labs can be done during that time.
[2025-08-17] MEDS: TAMSULOSIN HCL 0.4 MG CAPSULE PO (09:41)
[2025-08-17] MEDS: guaiFENesin 12 HR 600 MG TABCR PO ×2 (09:42→20:40)
[2025-08-17] MEDS: PANTOPRAZOLE 40 MG TABLET PO (09:42)
[2025-08-17] MEDS: FINASTERIDE 5 MG TABLET PO (09:42)
[2025-08-17 11:20] LABS: Hematocrit 25.7 % (42.0-52.0); Hemoglobin 8.3 g/dL (14.0-18.0); Immature Granulocyte Percent A 1.1 % (0-0.5); Lymphocytes Absolute Auto 0.69 K/mm3 (0.9-3.2); Mean Corpuscular HGB Conc 32.3 g/dl (32-36); Mean Corpuscular Hemoglobin 30.5 pg (26-34); Mean Corpuscular Volume 94.5 fl (80-100); Nucleated Red Blood Cells Absolute Auto 0.000 K/mm3 (0.0-0.012); Nucleated Red Blood Cells Perc 0.0 % (0.0-0.2); Platelet Count Result 190 k/mm3 (150-375); Red Blood Count 2.72 M/mm3 (4.6-6.20); White Blood Count 11.9 K/mm3 (4.5-10.0)
--- NOTE | 2025-08-17 11:33 | P.PNNP_ITS ---
Progress Note: A&P Assessment and Plan (1) End stage renal disease: Code(s): N18.6 - End stage renal disease Status: Chronic Assessment and Plan: * HD about to get started. * still makes reasonable urine output (which likely explains relative stability in electrolytes and volume status on admission) * however, his kidneys are unable to remove the uremic toxins (hence. his elevated BUN and associated acidosis on admission) * Volume status looks okay right now. * Potassium, BUN, and creatinine are pending * arrangements being made to re-establish outpatient dialysis (2) Shortness of breath: Code(s): R06.02 - Shortness of breath Status: Acute Assessment and Plan: * seems better * associated with mild chest discomfort * admission CXR noted: * interstitial pulmonary edema, pneumonitis, or less likely chronic interstitial lung disease * presumably related to severe anemia and mild volume overload * but also with known smoking history +/- COPD * EKG noted and troponins flat * echo shows normal LV function but grade 1 diastolic dysfunction * shortness of breath is better (3) Anemia: Code(s): D64.9 - Anemia, unspecified Status: Acute Assessment and Plan: * hemoglobin only 5.9 on admission. * Transfused and today up to 8.3 * presumably due to missed dialysis (and lack of IV iron and STEVE given with HD treatments) * check stool guaiacs * follow trend of H/H (4) Metabolic acidosis: Code(s): E87.20 - Acidosis, unspecified Status: Acute Assessment and Plan: * CO2 up to 18 now * due to missed dialysis and uremia * dialysis should correct * follow CO2 levels (5) Uremia: Code(s): N19 - Unspecified kidney failure Status: Acute Assessment and Plan: * symptoms improved * he already has suggested holding off on dialysis till Tuesday but was easily persuaded to go ahead with today's treatment (6) Elevated BP reading w/ no diagnosis of HTN: Code(s): R03.0 - Elevated blood-pressure reading, without diagnosis of hypertension Status: Acute Assessment and Plan: * BP ranging from 120-150 in the last 24 hours (7) Benign prostate hyperplasia: Code(s): N40.0 - Benign prostatic hyperplasia without lower urinary tract symptoms Status: Chronic Assessment and Plan: * continue Flomax and Proscar (8) COPD (chronic obstructive pulmonary disease): Code(s): J44.9 - Chronic obstructive pulmonary disease, unspecified Status: Chronic Assessment and Plan: * reported history * presumably due to smoking history * no evidence of acute exacerbation Will continue to follow. Subjective Date/time seen: 08/17/25 11:33 Interval history: Andrey is feeling better today. He is due for dialysis. Exam Narrative: General: WD/WN male in NAD Heart: normal S1 and S2; no rub Lungs: clear bilaterally Abdomen: soft, nontender, nondistended, positive bowel sounds Extremities: no cyanosis or clubbing; no edema Skin: No rash Objective Data Vital Signs Vital Signs: Vital Signs - 24 hr 08/16/25 11:40 08/16/25 11:55 08/16/25 12:00 Temperature 98.1 F Pulse Rate 103 H 95 Respiratory Rate 20 Blood Pressure 130/66 Pulse Oximetry 94 Oxygen Delivery Room Air 08/16/25 14:00 08/16/25 15:51 08/16/25 19:48 Temperature 98.3 F 97.7 F Pulse Rate 100 99 107 H Respiratory Rate 18 17 Blood Pressure 129/60 134/74 Pulse Oximetry 91 92 Oxygen Delivery 08/17/25 04:59 Temperature 98.2 F Pulse Rate 102 H Respiratory Rate 16 Blood Pressure 131/74 Pulse Oximetry 91 Oxygen Delivery Intake/Output Intake/Output: Intake & Output 08/14/25 08/15/25 08/16/25 08/17/25 23:59 23:59 23:59 23:59 Intake Total 400 526 2879 Output Total 875 250 Balance 65 40 1030 Meds/Results Medications: Active Medications Generic Name Dose Route Start Last Admin Trade Name Freq PRN Reason Stop Dose Admin Acetaminophen 650 mg 08/15/25 14:21 Acetaminophen 325 Mg Tablet PO Q4H PRN Mild Pain (1-3) or Fever Benzonatate 100 mg 08/15/25 20:51 08/16/25 07:36 Benzonatate 100 Mg Capsule PO 100 mg Q8H PRN Administration Cough Epoetin Shahzad-epbx 10,000 units 08/17/25 18:00 Epoetin Shahzad-Epbx 10,000 Units/Ml Vial IV PUSH 08/17/25 18:01 ONCE ONE Finasteride 5 mg 08/16/25 09:00 08/17/25 09:42 Finasteride 5 Mg Tablet PO 5 mg QAM CHRIS Administration Guaifenesin 600 mg 08/16/25 21:00 08/17/25 09:42 Guaifenesin 12 Hr 600 Mg Tabcr PO 600 mg Q12HR CHRIS Administration Albumin Human 50 mls @ 999 mls/hr 08/15/25 14:33 Albutein IVPB 09/14/25 14:32 Q10M PRN HYPOTENSION Sodium Chloride 1,000 mls @ 999 mls/hr 08/17/25 12:00 Normal Saline Iv IV CONT 08/17/25 13:00 .Q1H1M ONE Sodium Chloride 1,000 mls @ 0 mls/hr 08/17/25 12:00 Normal Saline Iv IV CONT 08/17/25 12:01 .Q0M ONE Per Protocol Ondansetron HCl 4 mg 08/16/25 09:49 08/16/25 10:19 Ondansetron Inj 4 Mg/2 Ml Vial IV PUSH 4 mg Q6H PRN Administration Nausea And Vomiting Pantoprazole Sodium 40 mg 08/16/25 09:00 08/17/25 09:42 Pantoprazole 40 Mg Tablet PO 40 mg DAILY CHRIS Administration Polyethylene Glycol 17 gm 08/15/25 16:56 Polyethylene Glycol 3350 17 Gm Powd.Pack PO QAM PRN Constipation Sevelamer Carbonate 800 mg 08/15/25 17:00 08/17/25 09:43 Sevelamer Carbonate 800 Mg Tablet PO 09/14/25 16:59 Not Given TIDWM CHRIS Tamsulosin HCl 0.4 mg 08/16/25 09:00 08/17/25 09:41 Tamsulosin Hcl 0.4 Mg Capsule PO 0.4 mg QAM CHRIS Administration Radiology Results: ITS Impressions Chest X-Ray 08/15/25 13:22 IMPRESSION: 1. Interstitial pulmonary edema, pneumonitis, or less likely chronic interstitial lung disease. Labs Labs: Laboratory Results - last 24 hr 08/16/25 08/16/25 08/17/25 07:57 07:58 11:10 WBC 11.9 H RBC 2.72 L Hgb 8.3 L Hct 25.7 L MCV 94.5 MCH 30.5 MCHC 32.3 RDW 16.0 H Plt Count 190 MPV 10.5 H Immature Gran % (Auto) 1.1 H Neut % (Auto) 85.4 H Lymph % (Auto) 5.8 L [place] % (Auto) 7.2 Eos % (Auto) 0.2 Baso % (Auto) 0.3 Lymph # (Auto) 0.69 L [place] # (Auto) 0.9 H Eos # (Auto) 0.0 Baso # (Auto) 0.0 Abs Immat Gran (auto) 0.13 H Absolute Neuts (auto) 10.1 H Absolute Nucleated RBC 0.000 Nucleated RBC % 0.0 Iron 21 L TIBC 302 % Saturation 7 L Ferritin 408.00 H Vitamin B12 306.0 Folate 6.8 Hep B Core Total Ab Negative
[2025-08-17 11:58] LABS: Alanine Aminotransferase 13 U/L (6-50); Albumin Level 4.0 g/dL (3.5-5.1); Alkaline Phosphatase 64 U/L (38-126); Anion Gap 13 mmol/L (4-12); Aspartate Amino Transferase 15 U/L (17-59); Bilirubin,Total 0.5 mg/dL (0.2-1.3); Blood Urea Nitrogen 63 mg/dL (9-20); Calcium 8.6 mg/dL (8.4-10.2); Carbon Dioxide 31 mmol/L (22-30); Chloride 94 mmol/L (98-107); Estimated CRCL calculation 7 ml/min; Estimated Glomerular Filt Rate 6; Glucose 136 mg/dL (65-110); Magnesium 2.3 mg/dL (1.6-2.3); Potassium 3.9 mmol/L (3.4-5.0); Sodium 138 mmol/L (137-145); Total Protein 7.2 g/dL (6.3-8.2)
--- NOTE | 2025-08-17 12:01 | PCPTNOTE ---
attempted PT eval, pt is currently in dialysis, will follow
--- NOTE | 2025-08-17 12:02 | PCOTNOTE ---
Attempted to see pt. for occupational therapy evaluation. Pt. not present in room, nursing reports at dialysis.
[2025-08-17] MEDS: SEVELAMER CARBONATE 800 MG TABLET PO ×2 (12:13→17:05)
--- NOTE | 2025-08-17 13:57 | P.PNIM_ITS ---
Progress Note: A&P Assessment and Plan (1) Anemia: Code(s): D64.9 - Anemia, unspecified Status: Acute Assessment and Plan: Hemoglobin 5.9 on admission Transfuse 2 units on 08/15/2025 Monitor for signs of bleeding Transfuse for hemoglobin less than 7 or symptomatic h and h remains stable. (2) End stage renal disease on dialysis: Code(s): N18.6 - End stage renal disease; Z99.2 - Dependence on renal dialysis Status: Inactive Assessment and Plan: Has not received dialysis in 3 months due to being homeless Nephrology consulted Potassium 5.0 Per Nephrology Patient started on regular diet by Nephrology Continue Ren[facility]a Dialysis initiated 11/2023 need op schedule for dialysis (3) Bipolar disorder: Code(s): F31.9 - Bipolar disorder, unspecified Status: Acute Assessment and Plan: Not on medications (4) COPD with emphysema: Code(s): J43.9 - Emphysema, unspecified Status: Chronic Assessment and Plan: No shortness of breaths on exam Breath sounds clear (5) Benign prostate hyperplasia: Code(s): N40.0 - Benign prostatic hyperplasia without lower urinary tract symptoms Status: Chronic Assessment and Plan: Continue Flomax and Proscar Plan Chest pain/shortness of breath chest x-ray with pulmonary edema. Dialysis patient but has not had dialysis in almost 3 months. Anemia with hemoglobin 5.9 on admission. Acute on chronic baseline hemoglobin around 10. Could be from underlying kidney disease. Continue to monitor no signs of bleeding. Transfused 2 units of PRBC on admission. Metabolic acidosis Elevated BUN Elevated troponin with flat trend BPH history of bilateral nephrostomy tube placement in the past History of skin cancer status post excision and grafting right ear fullness: exam reveals wax. will add debrox. Subjective Date/time seen: 08/17/25 13:57 Interval history: No overnight events. complains of dizziness and right ear fullness. getting dialysis today. no sob, chest pain. refused labs in am and got done during dialysis. Review of Systems Review of Systems: 12 systems were reviewed and are negative except for as per HPI. Exam Narrative: General: Chronically ill no acute distress HEENT: normocephalic, atraumatic. Mucous membranes moist. Right tunneled cath. Respiratory: clear bilaterally. No rales/rhonic/wheezes. Cardiovascular: Regular rate and rhythm, normal S1-S2. No murmurs, rubs, or clicks. Delete Abdomen: Soft, round, no pulsatile masses, nondistended and nontender. Delete Extremities: No cyanosis, clubbing, or edema present. Pulses are palpable 2/2. Active ROM to all four extremities. Neuro: Alert and orientated x 4. PERRLA. Cranial nerves 2-12 intact without focal deficit. Skin: Warm, dry, and intact, without rash, erythema, or lesion. Psych: pleasant, cooperative, normal speech, normal affect, no hallucinations, no dysarthia Objective Data Vital Signs Vital Signs: Vital Signs - 24 hr 08/16/25 14:00 08/16/25 15:51 08/16/25 19:48 Temperature 98.3 F 97.7 F Pulse Rate 100 99 107 H Respiratory Rate 18 17 Blood Pressure 129/60 134/74 Pulse Oximetry 91 92 Oxygen Delivery 08/17/25 04:59 08/17/25 09:45 Temperature 98.2 F Pulse Rate 102 H Respiratory Rate 16 Blood Pressure 131/74 Pulse Oximetry 91 Oxygen Delivery Room Air Intake/Output Intake/Output: Intake & Output 08/14/25 08/15/25 08/16/25 08/17/25 23:59 23:59 23:59 23:59 Intake Total 286 192 3225 Output Total 875 250 Balance 65 40 1030 Meds/Results Medications: Active Medications Generic Name Dose Route Start Last Admin Trade Name Freq PRN Reason Stop Dose Admin Acetaminophen 650 mg 08/15/25 14:21 Acetaminophen 325 Mg Tablet PO Q4H PRN Mild Pain (1-3) or Fever Benzonatate 100 mg 08/15/25 20:51 08/16/25 07:36 Benzonatate 100 Mg Capsule PO 100 mg Q8H PRN Administration Cough Carbamide Peroxide 5 drop 08/17/25 13:45 Carbamide Peroxide 6.5% Ot Soln 15 Ml Btl EACH EAR Q12HR CHRIS Epoetin Shahzad-epbx 10,000 units 08/17/25 18:00 Epoetin Shahzad-Epbx 10,000 Units/Ml Vial IV PUSH 08/17/25 18:01 ONCE ONE Finasteride 5 mg 08/16/25 09:00 08/17/25 09:42 Finasteride 5 Mg Tablet PO 5 mg QAM CHRIS Administration Guaifenesin 600 mg 08/16/25 21:00 08/17/25 09:42 Guaifenesin 12 Hr 600 Mg Tabcr PO 600 mg Q12HR CHRIS Administration Albumin Human 50 mls @ 999 mls/hr 08/15/25 14:33 Albutein IVPB 09/14/25 14:32 Q10M PRN HYPOTENSION Meclizine HCl 25 mg 08/17/25 13:43 Meclizine Hcl 25 Mg Tablet PO QID PRN vertigo Ondansetron HCl 4 mg 08/16/25 09:49 08/16/25 10:19 Ondansetron Inj 4 Mg/2 Ml Vial IV PUSH 4 mg Q6H PRN Administration Nausea And Vomiting Pantoprazole Sodium 40 mg 08/16/25 09:00 08/17/25 09:42 Pantoprazole 40 Mg Tablet PO 40 mg DAILY CHRIS Administration Polyethylene Glycol 17 gm 08/15/25 16:56 Polyethylene Glycol 3350 17 Gm Powd.Pack PO QAM PRN Constipation Sevelamer Carbonate 800 mg 08/15/25 17:00 08/17/25 12:13 Sevelamer Carbonate 800 Mg Tablet PO 09/14/25 16:59 800 mg TIDWM CHRIS Administration Tamsulosin HCl 0.4 mg 08/16/25 09:00 08/17/25 09:41 Tamsulosin Hcl 0.4 Mg Capsule PO 0.4 mg QAM CHRIS Administration Radiology Results: ITS Impressions Chest X-Ray 08/15/25 13:22 IMPRESSION: 1. Interstitial pulmonary edema, pneumonitis, or less likely chronic interstitial lung disease. Labs Labs: Laboratory Results - last 24 hr 08/16/25 08/17/25 07:57 11:10 WBC 11.9 H RBC 2.72 L Hgb 8.3 L Hct 25.7 L MCV 94.5 MCH 30.5 MCHC 32.3 RDW 16.0 H Plt Count 190 MPV 10.5 H Immature Gran % (Auto) 1.1 H Neut % (Auto) 85.4 H Lymph % (Auto) 5.8 L [place] % (Auto) 7.2 Eos % (Auto) 0.2 Baso % (Auto) 0.3 Lymph # (Auto) 0.69 L [place] # (Auto) 0.9 H Eos # (Auto) 0.0 Baso # (Auto) 0.0 Abs Immat Gran (auto) 0.13 H Absolute Neuts (auto) 10.1 H Absolute Nucleated RBC 0.000 Nucleated RBC % 0.0 Sodium 138 Potassium 3.9 Chloride 94 L Carbon Dioxide 31 H Anion Gap 13 H BUN 63 H D Creatinine 9.49 H Estim Creat Clear Calc 7 Estimated GFR 6 L Glucose 136 H Calcium 8.6 Magnesium 2.3 Total Bilirubin 0.5 AST 15 L ALT 13 Alkaline Phosphatase 64 Total Protein 7.2 Albumin 4.0 Hep B Core Total Ab Negative
[2025-08-17] MEDS: CARBAMIDE PEROXIDE 6.5% OT SOLN 15 ML BTL 5 DROP EACH EAR ×2 (15:12→20:40)
[2025-08-17] MEDS: ACETAMINOPHEN 325 MG TABLET 650 MG PO (19:26)
[2025-08-18 07:01] VITALS: BP 142/88; PULSE 99; RESP 16; TEMP 37.2; O2SAT 92
--- NOTE | 2025-08-18 08:54 | PCOTNOTE ---
Attempted to see pt. for occupational therapy evaluation. Per nursing and pt. pt. is independent in room. Spoke with pt. who states need for community resources, not skilled therapy services. No OT/PT services recommenced at this level of care. Cancelling orders.
[2025-08-18] MEDS: guaiFENesin 12 HR 600 MG TABCR PO ×2 (08:58→20:46)
[2025-08-18] MEDS: FINASTERIDE 5 MG TABLET PO (08:58)
[2025-08-18] MEDS: PANTOPRAZOLE 40 MG TABLET PO (08:58)
[2025-08-18] MEDS: TAMSULOSIN HCL 0.4 MG CAPSULE PO (08:58)
[2025-08-18] MEDS: CARBAMIDE PEROXIDE 6.5% OT SOLN 15 ML BTL 5 DROP EACH EAR ×2 (08:58→20:49)
--- NOTE | 2025-08-18 09:53 | PCPTNOTE ---
attempted PT meghan, pt has been independent in room and pt states he does not have any mobility concerns, he asked if he could walk downstairs to the cafeteria but I informed him he needs to stay in the unit, DC'ing PT orders as pt is not in need of skilled therapy
--- NOTE | 2025-08-18 10:08 | P.PNNP_ITS ---
Progress Note: A&P Assessment and Plan (1) End stage renal disease: Code(s): N18.6 - End stage renal disease Status: Chronic Assessment and Plan: * HD finished yesterday. * It is unclear what shift he is going to be on as an outpatient how long it will take for him to be discharged. Probably dialyze next on Tuesday * still makes reasonable urine output (which likely explains relative stability in electrolytes and volume status on admission) * however, his kidneys are unable to remove the uremic toxins (hence. his elevated BUN and associated acidosis on admission) * Volume status Looks euvolemic * Potassium, BUN, and creatinine are okay * arrangements being made to re-establish outpatient dialysis * has a lot of issues to work out, including where he is going to live and how he is going to get his medication. (2) Shortness of breath: Code(s): R06.02 - Shortness of breath Status: Acute Assessment and Plan: * resolved. * associated with mild chest discomfort * admission CXR noted: * interstitial pulmonary edema, pneumonitis, or less likely chronic interstitial lung disease * presumably related to severe anemia and mild volume overload * but also with known smoking history +/- COPD * EKG noted and troponins flat * echo shows normal LV function but grade 1 diastolic dysfunction * Continue to manage fluid status with dialysis. Will give diuretics to reduce the amount of fluid we have to take off each treatment. (3) Anemia: Code(s): D64.9 - Anemia, unspecified Status: Acute Assessment and Plan: * hemoglobin only 5.9 on admission. * Transfused and up to 8.3 yesterday * presumably due to missed dialysis (and lack of IV iron and STEVE given with HD treatments) * check stool guaiacs * Hemoglobin better yesterday. Will check another to (4) Metabolic acidosis: Code(s): E87.20 - Acidosis, unspecified Status: Acute Assessment and Plan: * CO2 up to 18 now * due to missed dialysis and uremia * dialysis should correct * CO2 high today. Will follow along (5) Uremia: Code(s): N19 - Unspecified kidney failure Status: Acute Assessment and Plan: * symptoms improved * he already has suggested holding off on dialysis till Tuesday but was easily persuaded to go ahead with today's treatment (6) Elevated BP reading w/ no diagnosis of HTN: Code(s): R03.0 - Elevated blood-pressure reading, without diagnosis of hypertension Status: Acute Assessment and Plan: * BP ranging from 120-150 (7) Benign prostate hyperplasia: Code(s): N40.0 - Benign prostatic hyperplasia without lower urinary tract symptoms Status: Chronic Assessment and Plan: * continue Flomax and Proscar (8) COPD (chronic obstructive pulmonary disease): Code(s): J44.9 - Chronic obstructive pulmonary disease, unspecified Status: Chronic Assessment and Plan: * reported history * presumably due to smoking history * no evidence of acute exacerbation Will continue to follow. Subjective Date/time seen: 08/18/25 10:08 Interval history: Andrey is feeling okay today. No chest pain or shortness of breath eager for discharge Exam Narrative: General: WD/WN male in NAD Heart: normal S1 and S2; no rub Lungs: clear bilaterally Abdomen: soft, nontender, nondistended, positive bowel sounds Extremities: no cyanosis or clubbing; no edema Skin: No rash Objective Data Vital Signs Vital Signs: Vital Signs - 24 hr 08/17/25 11:00 08/17/25 11:15 08/17/25 11:30 Temperature 97.6 F Pulse Rate 96 91 95 Respiratory Rate 18 Blood Pressure 164/96 H 164/91 H 140/92 H Pulse Oximetry 99 Oxygen Delivery 08/17/25 11:45 08/17/25 12:00 08/17/25 12:15 Temperature Pulse Rate 92 117 H 126 H Respiratory Rate Blood Pressure 140/92 H 141/89 H 126/77 Pulse Oximetry Oxygen Delivery 08/17/25 12:30 08/17/25 12:45 08/17/25 13:00 Temperature Pulse Rate 116 H 108 H 95 Respiratory Rate Blood Pressure 141/85 H 168/85 H 135/85 Pulse Oximetry Oxygen Delivery 08/17/25 13:15 08/17/25 13:30 08/17/25 13:45 Temperature Pulse Rate 93 109 H 108 H Respiratory Rate Blood Pressure 134/78 116/77 121/76 Pulse Oximetry Oxygen Delivery 08/17/25 14:15 08/17/25 15:00 08/17/25 20:00 Temperature 97.8 F Pulse Rate 83 84 Respiratory Rate 18 Blood Pressure 118/72 123/71 Pulse Oximetry 97 Oxygen Delivery Room Air 08/17/25 22:14 08/18/25 07:01 Temperature 97.6 F 98.9 F Pulse Rate 100 99 Respiratory Rate 16 16 Blood Pressure 112/53 L 142/88 H Pulse Oximetry 91 92 Oxygen Delivery Intake/Output Intake/Output: Intake & Output 08/15/25 08/16/25 08/17/25 08/18/25 23:59 23:59 23:59 23:59 Intake Total 059 968 8177 450 Output Total 875 250 Balance 65 40 3240 450 Meds/Results Medications: Active Medications Generic Name Dose Route Start Last Admin Trade Name Freq PRN Reason Stop Dose Admin Acetaminophen 650 mg 08/15/25 14:21 08/17/25 19:26 Acetaminophen 325 Mg Tablet PO 650 mg Q4H PRN Administration Mild Pain (1-3) or Fever Benzonatate 100 mg 08/15/25 20:51 08/16/25 07:36 Benzonatate 100 Mg Capsule PO 100 mg Q8H PRN Administration Cough Carbamide Peroxide 5 drop 08/17/25 13:45 08/18/25 08:58 Carbamide Peroxide 6.5% Ot Soln 15 Ml Btl EACH EAR 5 drop Q12HR CHRIS Administration Finasteride 5 mg 08/16/25 09:00 08/18/25 08:58 Finasteride 5 Mg Tablet PO 5 mg QAM CHRIS Administration Guaifenesin 600 mg 08/16/25 21:00 08/18/25 08:58 Guaifenesin 12 Hr 600 Mg Tabcr PO 600 mg Q12HR CHRIS Administration Albumin Human 50 mls @ 999 mls/hr 08/15/25 14:33 Albutein IVPB 09/14/25 14:32 Q10M PRN HYPOTENSION Meclizine HCl 25 mg 08/17/25 13:43 Meclizine Hcl 25 Mg Tablet PO QID PRN vertigo Ondansetron HCl 4 mg 08/16/25 09:49 08/16/25 10:19 Ondansetron Inj 4 Mg/2 Ml Vial IV PUSH 4 mg Q6H PRN Administration Nausea And Vomiting Pantoprazole Sodium 40 mg 08/16/25 09:00 08/18/25 08:58 Pantoprazole 40 Mg Tablet PO 40 mg DAILY CHRIS Administration Polyethylene Glycol 17 gm 08/15/25 16:56 Polyethylene Glycol 3350 17 Gm Powd.Pack PO QAM PRN Constipation Sevelamer Carbonate 800 mg 08/15/25 17:00 08/18/25 08:58 Sevelamer Carbonate 800 Mg Tablet PO 09/14/25 16:59 Not Given TIDWM CHRIS Tamsulosin HCl 0.4 mg 08/16/25 09:00 08/18/25 08:58 Tamsulosin Hcl 0.4 Mg Capsule PO 0.4 mg QAM CHRIS Administration Radiology Results: ITS Impressions Chest X-Ray 08/15/25 13:22 IMPRESSION: 1. Interstitial pulmonary edema, pneumonitis, or less likely chronic interstitial lung disease. Labs Labs: Laboratory Results - last 24 hr 08/17/25 11:10 WBC 11.9 H RBC 2.72 L Hgb 8.3 L Hct 25.7 L MCV 94.5 MCH 30.5 MCHC 32.3 RDW 16.0 H Plt Count 190 MPV 10.5 H Immature Gran % (Auto) 1.1 H Neut % (Auto) 85.4 H Lymph % (Auto) 5.8 L [place] % (Auto) 7.2 Eos % (Auto) 0.2 Baso % (Auto) 0.3 Lymph # (Auto) 0.69 L [place] # (Auto) 0.9 H Eos # (Auto) 0.0 Baso # (Auto) 0.0 Abs Immat Gran (auto) 0.13 H Absolute Neuts (auto) 10.1 H Absolute Nucleated RBC 0.000 Nucleated RBC % 0.0 Sodium 138 Potassium 3.9 Chloride 94 L Carbon Dioxide 31 H Anion Gap 13 H BUN 63 H D Creatinine 9.49 H Estim Creat Clear Calc 7 Estimated GFR 6 L Glucose 136 H Calcium 8.6 Magnesium 2.3 Total Bilirubin 0.5 AST 15 L ALT 13 Alkaline Phosphatase 64 Total Protein 7.2 Albumin 4.0
--- NOTE | 2025-08-18 11:55 | P.PNIM_ITS ---
Progress Note: A&P Assessment and Plan (1) Anemia: Code(s): D64.9 - Anemia, unspecified Status: Acute Assessment and Plan: Hemoglobin 5.9 on admission Transfuse 2 units on 08/15/2025 Monitor for signs of bleeding Transfuse for hemoglobin less than 7 or symptomatic h and h remains stable. (2) End stage renal disease on dialysis: Code(s): N18.6 - End stage renal disease; Z99.2 - Dependence on renal dialysis Status: Inactive Assessment and Plan: Has not received dialysis in 3 months due to being homeless Nephrology consulted Potassium 5.0 Per Nephrology Patient started on regular diet by Nephrology Continue Renvela Dialysis initiated 11/2023 need op schedule for dialysis (3) Bipolar disorder: Code(s): F31.9 - Bipolar disorder, unspecified Status: Acute Assessment and Plan: Not on medications (4) COPD with emphysema: Code(s): J43.9 - Emphysema, unspecified Status: Chronic Assessment and Plan: No shortness of breaths on exam Breath sounds clear (5) Benign prostate hyperplasia: Code(s): N40.0 - Benign prostatic hyperplasia without lower urinary tract symptoms Status: Chronic Assessment and Plan: Continue Flomax and Proscar Plan Chest pain/shortness of breath chest x-ray with pulmonary edema. Dialysis patient but has not had dialysis in almost 3 months. Anemia with hemoglobin 5.9 on admission. Acute on chronic baseline hemoglobin around 10. Could be from underlying kidney disease. Continue to monitor no signs of bleeding. Transfused 2 units of PRBC on admission. Metabolic acidosis Elevated BUN Elevated troponin with flat trend BPH history of bilateral nephrostomy tube placement in the past History of skin cancer status post excision and grafting right ear infection status post ear lavage will start Augmentin and Flonase Subjective Date/time seen: 08/18/25 11:55 Interval history: Ear lavage performed today. Tympanic membrane dusky on right. Remains afebrile no other complaints. Review of Systems Review of Systems: 12 systems were reviewed and are negative except for as per HPI. Exam Narrative: General: Chronically ill no acute distress HEENT: normocephalic, atraumatic. Mucous membranes moist. Right tunneled cath. Right tympanic membrane dusky Respiratory: clear bilaterally. No rales/rhonic/wheezes. Cardiovascular: Regular rate and rhythm, normal S1-S2. No murmurs, rubs, or clicks. Abdomen: Soft, round, no pulsatile masses, nondistended and nontender. Delete Extremities: No cyanosis, clubbing, or edema present. Pulses are palpable 2/2. Active ROM to all four extremities. Neuro: Alert and orientated x 4. PERRLA. Cranial nerves 2-12 intact without focal deficit. Skin: Warm, dry, and intact, without rash, erythema, or lesion. Psych: pleasant, cooperative, normal speech, normal affect, no hallucinations, no dysarthia Objective Data Vital Signs Vital Signs: Vital Signs - 24 hr 08/17/25 12:00 08/17/25 12:15 08/17/25 12:30 Temperature Pulse Rate 117 H 126 H 116 H Respiratory Rate Blood Pressure 141/89 H 126/77 141/85 H Pulse Oximetry Oxygen Delivery 08/17/25 12:45 08/17/25 13:00 08/17/25 13:15 Temperature Pulse Rate 108 H 95 93 Respiratory Rate Blood Pressure 168/85 H 135/85 134/78 Pulse Oximetry Oxygen Delivery 08/17/25 13:30 08/17/25 13:45 08/17/25 14:15 Temperature Pulse Rate 109 H 108 H 83 Respiratory Rate Blood Pressure 116/77 121/76 118/72 Pulse Oximetry Oxygen Delivery 08/17/25 15:00 08/17/25 20:00 08/17/25 22:14 Temperature 97.8 F 97.6 F Pulse Rate 84 100 Respiratory Rate 18 16 Blood Pressure 123/71 112/53 L Pulse Oximetry 97 91 Oxygen Delivery Room Air 08/18/25 07:01 08/18/25 08:00 Temperature 98.9 F Pulse Rate 99 Respiratory Rate 16 Blood Pressure 142/88 H Pulse Oximetry 92 Oxygen Delivery Room Air Intake/Output Intake/Output: Intake & Output 08/15/25 08/16/25 08/17/25 08/18/25 23:59 23:59 23:59 23:59 Intake Total 354 793 2269 450 Output Total 875 250 Balance 65 40 3240 450 Meds/Results Medications: Active Medications Generic Name Dose Route Start Last Admin Trade Name Freq PRN Reason Stop Dose Admin Acetaminophen 650 mg 08/15/25 14:21 08/17/25 19:26 Acetaminophen 325 Mg Tablet PO 650 mg Q4H PRN Administration Mild Pain (1-3) or Fever Benzonatate 100 mg 08/15/25 20:51 08/16/25 07:36 Benzonatate 100 Mg Capsule PO 100 mg Q8H PRN Administration Cough Carbamide Peroxide 5 drop 08/17/25 13:45 08/18/25 08:58 Carbamide Peroxide 6.5% Ot Soln 15 Ml Btl EACH EAR 5 drop Q12HR CHRIS Administration Finasteride 5 mg 08/16/25 09:00 08/18/25 08:58 Finasteride 5 Mg Tablet PO 5 mg QAM CHRIS Administration Furosemide 80 mg 08/18/25 17:00 Furosemide 80 Mg Tablet PO BID CHRIS Guaifenesin 600 mg 08/16/25 21:00 08/18/25 08:58 Guaifenesin 12 Hr 600 Mg Tabcr PO 600 mg Q12HR CHRIS Administration Albumin Human 50 mls @ 999 mls/hr 08/15/25 14:33 Albutein IVPB 09/14/25 14:32 Q10M PRN HYPOTENSION Meclizine HCl 25 mg 08/17/25 13:43 Meclizine Hcl 25 Mg Tablet PO QID PRN vertigo Ondansetron HCl 4 mg 08/16/25 09:49 08/16/25 10:19 Ondansetron Inj 4 Mg/2 Ml Vial IV PUSH 4 mg Q6H PRN Administration Nausea And Vomiting Pantoprazole Sodium 40 mg 08/16/25 09:00 08/18/25 08:58 Pantoprazole 40 Mg Tablet PO 40 mg DAILY CHRIS Administration Polyethylene Glycol 17 gm 08/15/25 16:56 Polyethylene Glycol 3350 17 Gm Powd.Pack PO QAM PRN Constipation Sevelamer Carbonate 800 mg 08/15/25 17:00 08/18/25 08:58 Sevelamer Carbonate 800 Mg Tablet PO 09/14/25 16:59 Not Given TIDWM CHRIS Tamsulosin HCl 0.4 mg 08/16/25 09:00 08/18/25 08:58 Tamsulosin Hcl 0.4 Mg Capsule PO 0.4 mg QAM CHRIS Administration Radiology Results: ITS Impressions Chest X-Ray 08/15/25 13:22 IMPRESSION: 1. Interstitial pulmonary edema, pneumonitis, or less likely chronic interstitial lung disease. Labs Labs: Laboratory Results - last 24 hr 08/17/25 11:10 Sodium 138 Potassium 3.9 Chloride 94 L Carbon Dioxide 31 H Anion Gap 13 H BUN 63 H D Creatinine 9.49 H Estim Creat Clear Calc 7 Estimated GFR 6 L Glucose 136 H Calcium 8.6 Magnesium 2.3 Total Bilirubin 0.5 AST 15 L ALT 13 Alkaline Phosphatase 64 Total Protein 7.2 Albumin 4.0
[2025-08-18] MEDS: FLUTICASONE PROPIONATE 0.05% NA SPR 16 GM BTL (*BKC) 1 SPRAY NASAL ×2 (12:13→20:46)
[2025-08-18] MEDS: SEVELAMER CARBONATE 800 MG TABLET PO ×2 (12:13→16:41)
[2025-08-18 14:00] VITALS: BP 131/66; PULSE 92; RESP 14; TEMP 36.1; O2SAT 94
--- NOTE | 2025-08-18 15:51 | PC.NURSE ---
pATIET REFUSING LABS, PER DR BRICENO, OKAY TO OBTAIN LABS JUST DURING DIALYSIS
[2025-08-18] MEDS: FUROSEMIDE 80 MG TABLET PO (16:41)
[2025-08-18 19:32] VITALS: BP 137/79; PULSE 103; RESP 20; TEMP 36.6; O2SAT 95
[2025-08-19 05:06] VITALS: BP 139/57; PULSE 101; RESP 20; TEMP 36.4; O2SAT 97
--- NOTE | 2025-08-19 07:22 | PC.NURSE ---
0700 patient is agitated, verbally aggressive, demanding his peripheral iv to be taken out, states his leaving AMA after breakfast. iv removed at his demand.
[2025-08-19] MEDS: SEVELAMER CARBONATE 800 MG TABLET PO (07:43)
[2025-08-19] MEDS: FINASTERIDE 5 MG TABLET PO (08:07)
[2025-08-19] MEDS: guaiFENesin 12 HR 600 MG TABCR PO (08:07)
[2025-08-19] MEDS: FLUTICASONE PROPIONATE 0.05% NA SPR 16 GM BTL (*BKC) 1 SPRAY NASAL (08:08)
[2025-08-19] MEDS: TAMSULOSIN HCL 0.4 MG CAPSULE PO (08:08)
[2025-08-19] MEDS: CARBAMIDE PEROXIDE 6.5% OT SOLN 15 ML BTL 5 DROP EACH EAR (08:08)
[2025-08-19] MEDS: PANTOPRAZOLE 40 MG TABLET PO (08:10)
[2025-08-19] MEDS: ACETAMINOPHEN 325 MG TABLET 650 MG PO (08:15)
--- NOTE | 2025-08-19 09:03 | PM.PNNEP ---
Progress Note: A&P Assessment and Plan (1) End stage renal disease: Code(s): N18.6 - End stage renal disease Status: Chronic Assessment and Plan: last HD treatment on Tuesday still make reasonable urine output (which likely explains relative stability in electrolytes and volume status on admission) however, his kidneys are unable to remove the uremic toxins (hence. his elevated BUN and associated acidosis on admission) follow trend of electrolytes, volume status, and clearance tentatively plan next HD tomorrow outpatient dialysis being finalized (2) Shortness of breath: Code(s): R06.02 - Shortness of breath Status: Acute Assessment and Plan: seems better/resolved associated with mild chest discomfort admission CXR noted: interstitial pulmonary edema, pneumonitis, or less likely chronic interstitial lung disease presumably related to severe anemia and mild volume overload but also with known smoking history +/- COPD EKG noted and troponins flat elevated BUN could be contributing to chest symptoms Echo results noted follow clinical symptoms (3) Anemia: Code(s): D64.9 - Anemia, unspecified Status: Acute Assessment and Plan: improved following blood transfusion as noted by admission labs presumably due to missed dialysis (and lack of IV iron and STEVE given with HD treatments) PRBC transfusion per protocol high dose Epogen with HD anemia studies with iron deficiency IV venofer with HD follow trend of H/H (4) Metabolic acidosis: Code(s): E87.20 - Acidosis, unspecified Status: Acute Assessment and Plan: slow improvement due to missed dialysis and uremia dialysis should correct follow CO2 levels (5) Uremia: Code(s): N19 - Unspecified kidney failure Status: Acute Assessment and Plan: doing better as noted by elevated BUN on admission surprisingly, minimal symptoms noted on presentation however, some nausea/vomiting noted on 08/16 dialysis should help improve this (6) Elevated BP reading w/ no diagnosis of HTN: Code(s): R03.0 - Elevated blood-pressure reading, without diagnosis of hypertension Status: Acute Assessment and Plan: BP readings noted follow trend with dialysis re-initiation monitor trend of hemodynamics (7) Benign prostate hyperplasia: Code(s): N40.0 - Benign prostatic hyperplasia without lower urinary tract symptoms Status: Chronic Assessment and Plan: continue Flomax and Proscar (8) COPD (chronic obstructive pulmonary disease): Code(s): J44.9 - Chronic obstructive pulmonary disease, unspecified Status: Chronic Assessment and Plan: reported history presumably due to smoking history no evidence of acute exacerbation Will continue to follow. Subjective Date/time seen: 08/19/25 09:03 Interval history: Follow-up for end stage renal disease on hemodialysis. Chart reviewed since last seen -- feels reasonably well with relative stability of H/H since PRBC transfusion; tolerated last dialysis treatment on Tuesday without any significant issue other than cramping; no apparent distress voiced when seen and asking about discharge today. Exam Narrative: General: WD/WN male in NAD Heart: normal S1 and S2; no rub Lungs: clear anteriorly Abdomen: soft, nontender, nondistended, positive bowel sounds Extremities: no cyanosis or clubbing; no edema Skin: warm and intact Objective Data Vital Signs Vital Signs: Vital Signs Temp Pulse Resp BP Pulse Ox O2 Del Method 08/19/25 05:06 97.6 F 101 H 20 139/57 L 97 08/18/25 20:00 Room Air 08/18/25 19:32 97.8 F 103 H 20 137/79 95 08/18/25 14:00 97 F L 92 14 131/66 94 Intake/Output Intake/Output: Intake & Output 08/16/25 08/17/25 08/18/25 08/19/25 23:59 23:59 23:59 23:59 Intake Total 290 3240 1930 1740 Output Total 250 Balance 40 3240 1930 1740 Meds/Results Medications: Active Medications Generic Name Dose Route Start Trade Name Freq PRN Reason Stop Acetaminophen 650 mg 08/15/25 14:21 Acetaminophen 325 Mg Tablet PO Q4H PRN Mild Pain (1-3) or Fever Benzonatate 100 mg 08/15/25 20:51 Benzonatate 100 Mg Capsule PO Q8H PRN Cough Finasteride 5 mg 08/16/25 09:00 Finasteride 5 Mg Tablet PO QAM CHRIS Guaifenesin 600 mg 08/16/25 21:00 Guaifenesin 12 Hr 600 Mg Tabcr PO Q12HR CHRIS Albumin Human 50 mls @ 999 mls/hr 08/15/25 14:33 Albutein IVPB 09/14/25 14:32 Q10M PRN HYPOTENSION Ondansetron HCl 4 mg 08/16/25 09:49 Ondansetron Inj 4 Mg/2 Ml Vial IV PUSH Q6H PRN Nausea And Vomiting Pantoprazole Sodium 40 mg 08/16/25 09:00 Pantoprazole 40 Mg Tablet PO DAILY [facility] Perflutren Lipid Microsphere 0 ml 08/15/25 22:18 Perflutren Lipid Microspheres 1.5 Ml Vial Diluted To 10 Ml Total Volume IV PUSH 08/18/25 22:18 ONCE PRN adequate visualization Protocol Polyethylene Glycol 17 gm 08/15/25 16:56 Polyethylene Glycol 3350 17 Gm Powd.Pack PO QAM PRN Constipation Sevelamer Carbonate 800 mg 08/15/25 17:00 Sevelamer Carbonate 800 Mg Tablet PO 09/14/25 16:59 TIDWM CHRIS Tamsulosin HCl 0.4 mg 08/16/25 09:00 Tamsulosin Hcl 0.4 Mg Capsule PO QAM [facility] Radiology Results: ITS Impressions Chest X-Ray 08/15/25 13:22 IMPRESSION: 1. Interstitial pulmonary edema, pneumonitis, or less likely chronic interstitial lung disease. Labs Labs: Laboratory Tests 08/16/25 07:58 08/16/25 07:58 Calcium 8.3 L Phosphorus 7.5 H Iron 21 L TIBC 302 % Saturation 7 L Ferritin Pending Albumin 4.1 Vitamin B12 Pending Vitamin D 25-Hydroxy 15.4 Folate Pending PTH Intact 748.3 H
--- NOTE | 2025-08-19 09:03 | P.PNNP_ITS ---
Progress Note: A&P Assessment and Plan (1) End stage renal disease: Code(s): N18.6 - End stage renal disease Status: Chronic Assessment and Plan: * last HD treatment on Tuesday * still make reasonable urine output (which likely explains relative stability in electrolytes and volume status on admission) * however, his kidneys are unable to remove the uremic toxins (hence. his elevated BUN and associated acidosis on admission) * follow trend of electrolytes, volume status, and clearance * tentatively plan next HD tomorrow * outpatient dialysis being finalized (2) Shortness of breath: Code(s): R06.02 - Shortness of breath Status: Acute Assessment and Plan: * seems better/resolved * associated with mild chest discomfort * admission CXR noted: * interstitial pulmonary edema, pneumonitis, or less likely chronic interstitial lung disease * presumably related to severe anemia and mild volume overload * but also with known smoking history +/- COPD * EKG noted and troponins flat * elevated BUN could be contributing to chest symptoms * Echo results noted * follow clinical symptoms (3) Anemia: Code(s): D64.9 - Anemia, unspecified Status: Acute Assessment and Plan: * improved following blood transfusion * as noted by admission labs * presumably due to missed dialysis (and lack of IV iron and STEVE given with HD treatments) * PRBC transfusion per protocol * high dose Epogen with HD * anemia studies with iron deficiency * IV venofer with HD * follow trend of H/H (4) Metabolic acidosis: Code(s): E87.20 - Acidosis, unspecified Status: Acute Assessment and Plan: * slow improvement * due to missed dialysis and uremia * dialysis should correct * follow CO2 levels (5) Uremia: Code(s): N19 - Unspecified kidney failure Status: Acute Assessment and Plan: * doing better * as noted by elevated BUN on admission * surprisingly, minimal symptoms noted on presentation * however, some nausea/vomiting noted on 08/16 * dialysis should help improve this (6) Elevated BP reading w/ no diagnosis of HTN: Code(s): R03.0 - Elevated blood-pressure reading, without diagnosis of hypertension Status: Acute Assessment and Plan: * BP readings noted * follow trend with dialysis re-initiation * monitor trend of hemodynamics (7) Benign prostate hyperplasia: Code(s): N40.0 - Benign prostatic hyperplasia without lower urinary tract symptoms Status: Chronic Assessment and Plan: * continue Flomax and Proscar (8) COPD (chronic obstructive pulmonary disease): Code(s): J44.9 - Chronic obstructive pulmonary disease, unspecified Status: Chronic Assessment and Plan: * reported history * presumably due to smoking history * no evidence of acute exacerbation Will continue to follow. L Subjective Date/time seen: 08/19/25 09:03 Interval history: Follow-up for end stage renal disease on hemodialysis. Chart reviewed since last seen -- feels reasonably well with relative stability of H/H since PRBC transfusion; tolerated last dialysis treatment on Tuesday without any significant issue other than cramping; no apparent distress voiced when seen and asking about discharge today. Exam 2 Narrative: General: WD/WN male in NAD Heart: normal S1 and S2; no rub Lungs: clear anteriorly Abdomen: soft, nontender, nondistended, positive bowel sounds Extremities: no cyanosis or clubbing; no edema Skin: warm and intact Objective Data Vital Signs Vital Signs: Vital Signs Temp Pulse Resp BP Pulse Ox O2 Del Method 08/19/25 05:06 97.6 F 101 H 20 139/57 L 97 08/18/25 20:00 Room Air 08/18/25 19:32 97.8 F 103 H 20 137/79 95 08/18/25 14:00 97 F L 92 14 131/66 94 Intake/Output Intake/Output: Intake & Output 08/16/25 08/17/25 08/18/25 08/19/25 23:59 23:59 23:59 23:59 Intake Total 290 3240 1930 1740 Output Total 250 Balance 40 3240 1930 1740 Meds/Results Medications: Active Medications Generic Name Dose Route Start Trade Name Freq PRN Reason Stop Acetaminophen 650 mg 08/15/25 14:21 Acetaminophen 325 Mg Tablet PO Q4H PRN Mild Pain (1-3) or Fever Benzonatate 100 mg 08/15/25 20:51 Benzonatate 100 Mg Capsule PO Q8H PRN Cough Finasteride 5 mg 08/16/25 09:00 Finasteride 5 Mg Tablet PO QAM CHRIS Guaifenesin 600 mg 08/16/25 21:00 Guaifenesin 12 Hr 600 Mg Tabcr PO Q12HR CHRIS Albumin Human 50 mls @ 999 mls/hr 08/15/25 14:33 Albutein IVPB 09/14/25 14:32 Q10M PRN HYPOTENSION Ondansetron HCl 4 mg 08/16/25 09:49 Ondansetron Inj 4 Mg/2 Ml Vial IV PUSH Q6H PRN Nausea And Vomiting Pantoprazole Sodium 40 mg 08/16/25 09:00 Pantoprazole 40 Mg Tablet PO DAILY [facility] Perflutren Lipid Microsphere 0 ml 08/15/25 22:18 Perflutren Lipid Microspheres 1.5 Ml Vial Diluted To 10 Ml Total Volume IV PUSH 08/18/25 22:18 ONCE PRN adequate visualization Protocol Polyethylene Glycol 17 gm 08/15/25 16:56 Polyethylene Glycol 3350 17 Gm Powd.Pack PO QAM PRN Constipation Sevelamer Carbonate 800 mg 08/15/25 17:00 Sevelamer Carbonate 800 Mg Tablet PO 09/14/25 16:59 TIDWM CHRIS Tamsulosin HCl 0.4 mg 08/16/25 09:00 Tamsulosin Hcl 0.4 Mg Capsule PO QAM [facility] Radiology Results: ITS Impressions Chest X-Ray 08/15/25 13:22 IMPRESSION: 1. Interstitial pulmonary edema, pneumonitis, or less likely chronic interstitial lung disease. Labs Labs: Laboratory Tests 08/16/25 07:58 08/16/25 07:58 Calcium 8.3 L Phosphorus 7.5 H Iron 21 L TIBC 302 % Saturation 7 L Ferritin Pending Albumin 4.1 Vitamin B12 Pending Vitamin D 25-Hydroxy 15.4 Folate Pending PTH Intact 748.3 H
--- NOTE | 2025-08-19 09:46 | PC.NURSE ---
Admission could not be completed when patient arrived. He was transported to surgery.
--- NOTE | 2025-08-19 10:22 | P.DS_ITS ---
DS: Admitting Diagnosis Discharge Date 08/19/2025 Admitting Diagnosis chest pain DS: Discharge Diagnosis Discharge Diagnosis (1) Anemia: Code(s): D64.9 - Anemia, unspecified Status: Acute (2) End stage renal disease on dialysis: Code(s): N18.6 - End stage renal disease; Z99.2 - Dependence on renal dialysis Status: Inactive (3) Bipolar disorder: Code(s): F31.9 - Bipolar disorder, unspecified Status: Acute (4) COPD with emphysema: Code(s): J43.9 - Emphysema, unspecified Status: Chronic (5) Benign prostate hyperplasia: Code(s): N40.0 - Benign prostatic hyperplasia without lower urinary tract symptoms Status: Chronic DS: Summary Hospital Course Hospital Course: # Anemia: Hemoglobin 5.9 on admission Transfuse 2 units on 08/15/2025 Monitor for signs of bleeding Transfuse for hemoglobin less than 7 or symptomatic h and h remains stable. # End stage renal disease on dialysis: Has not received dialysis in 3 months due to being homeless Nephrology consulted Potassium 5.0 Per Nephrology Patient started on regular diet by Nephrology Continue Renvela Dialysis initiated 11/2023 need op schedule for dialysis which is scheduled at [facility] 10 am [facility] # Bipolar disorder: Not on medications # COPD with emphysema: No shortness of breaths on exam Breath sounds clear # Benign prostate hyperplasia: Continue Flomax and Proscar # Chest pain/shortness of breath chest x-ray with pulmonary edema. Dialysis patient but has not had dialysis in almost 3 months. Anemia with hemoglobin 5.9 on admission. Acute on chronic baseline hemoglobin around 10. Could be from underlying kidney disease. Continue to monitor no signs of bleeding. Transfused 2 units of PRBC on admission. # Metabolic acidosis # Elevated BUN # Elevated troponin with flat trend # BPH history of bilateral nephrostomy tube placement in the past # History of skin cancer status post excision and grafting # right ear infection status post ear lavage 08/18/2025 started Augmentin and Flonase Time Spent with Patient Time attestation: Total time spent providing and/or coordinating discharge services: 45 minutes Exam Narrative: General: Chronically ill no acute distress HEENT: normocephalic, atraumatic. Mucous membranes moist. Right tunneled cath. Right tympanic membrane dusky Respiratory: clear bilaterally. No rales/rhonic/wheezes. Cardiovascular: Regular rate and rhythm, normal S1-S2. No murmurs, rubs, or clicks. Abdomen: Soft, round, no pulsatile masses, nondistended and nontender. Extremities: No cyanosis, clubbing, or edema present. Pulses are palpable 2/2. Active ROM to all four extremities. Neuro: Alert and orientated x 4. PERRLA. Cranial nerves 2-12 intact without focal deficit. Skin: Warm, dry, and intact, without rash, erythema, or lesion. Psych: pleasant, cooperative, normal speech, normal affect, no hallucinations, no dysarthia DS: Data Data Completed and Pending Labs on day of discharge: Preliminary micro results at discharge 08/15/25 16:00 Blood Culture - Preliminary Blood 08/15/25 16:00 Blood Culture - Preliminary Blood Imaging Radiologist's impression: ITS Impressions Chest X-Ray 08/15/25 13:22 IMPRESSION: 1. Interstitial pulmonary edema, pneumonitis, or less likely chronic interstitial lung disease. Discharge Plan Discharge Attending physician on discharge: Liban Hayes Consulting providers: Guzman Bo; Sotero Verma Discharging Clinician: Liban Hayes Anticipated Discharge Date/Time: 08/19/25 10:25 Patient Disposition: SNF Activity: as tolerated Diet: renal Discharge Instructions: Hemodialysis as scheduled at [facility] Tuesday Patient Instructions: Antibiotic Form Patient Language: Urdu Stand Alone Forms: General Discharge Information, Shelter Discharge Follow-up/Referrals: UNKNOWN,DOCTOR [Primary Care Provider] - 1 Week Discharge Medications: New furosemide 80 mg Tablet 80 mg PO BID Qty: 60 0RF fluticasone propionate 50 mcg/actuation [facility],Suspension 1 spray intranasal Q12HR Qty: 30 0RF amoxicillin-pot clavulanate [Augmentin] 500-125 mg Tablet 1 tablet PO Q12HR Qty: 12 0RF guaifenesin [Mucus Relief ER] 600 mg Tablet Extended Release 12hr 600 mg PO Q12HR Qty: 60 0RF Continued sevelamer HCl 800 mg tablet 800 mg PO TIDWM pantoprazole 40 mg tablet,delayed release (DR/EC) 40 mg PO DAILY finasteride [Proscar] 5 mg Tablet 5 mg PO QAM Qty: 30 0RF acetaminophen 500 mg Tablet 500 mg PO QID PRN (Reason: Pain) polyethylene glycol 3350 [Miralax] 17 gram Powder In Packet 17 g PO QAM PRN (Reason: Constipation) Qty: 30 0RF tamsulosin 0.4 mg Capsule 0.4 mg PO QAM Qty: 30 0RF Date of admission: 08/15/25 17:41 Primary Care Provider: UNKNOWN,DOCTOR Admitting Provider: Adamson,Evens A. Attending physician on admission: Evens Adamson Condition: Stable
== END 2025-08-19 10:35 | DRG 683 ==
LOC: ANHED 12:08 → ANHIMU 14:28 → ANH2MED 08-19 10:25 → ANHIMU 08-21 12:01
PROVIDERS: Internal Medicine Nephrology; Nurse Practitioner Gerontology; Admitting Provider Internal Medicine; Emergency Provider Emergency Medicine; Visit Provider Internal Medicine
DX: N18.6 End stage renal disease (principal); E87.20 Acidosis, unspecified; Z59.00 Homelessness unspecified; D63.1 Anemia in chronic kidney disease; J44.9 Chronic obstructive pulmonary disease, unspecified; H66.91 Otitis media, unspecified, right ear; N40.0 Benign prostatic hyperplasia without lower urinary tract symptoms; F31.9 Bipolar disorder, unspecified; F17.210 Nicotine dependence, cigarettes, uncomplicated; Z20.822 Contact with and (suspected) exposure to COVID-19; Z99.2 Dependence on renal dialysis; Z91.158 Patient's noncompliance with renal dialysis for other reason
CPT/HCPCS: 36415; 36430; 71046; 80053; 80069; 81001; 82306; 82607; 82728; 82746; 83540; 83550; 83690; 83735; 83880; 83970; 84484; 85025; 85610; 85730; 86704; 86706; 86850; 86900; 86901; 86923; 87040; 87340; 87637; 87641; 93005; 94640; 96374; 99285; A9270; C8929; G0257; G0378; J1644; J2405; J7030; J7050; P9016; Q5105; Q9957